=== PATIENT | female | born 1960 | race Caucasian/White ===

== ENCOUNTER 2017-05-27 00:28 | Emergency (ER) | payer OTHER ==
[2017-05-27 01:39] LABS: Absolute Monocytes 0.4 K/uL (0.1-1.3); Absolute Neutrophil 10.8 K/uL (1.8-8.0); Basophils % 0.3 % (0-1.3); Hematocrit 44.5 % (36.0-45.0); Lymphocytes % 8.3 % (15.3-44.8); MCH 30.6 pg (27.0-35.0); MCV 92.4 fL (80-100); MPV 8.2 fL (7.6-11.3); Monocytes % 2.9 % (3.3-12.3); RBC Red Blood Cell Count 4.81 M/uL (3.86-4.86)
[2017-05-27 01:47] LABS: Protime INR 0.95
[2017-05-27] MEDS ORDERED: predniSONE 20 MG TAB ONE (01:47)
[2017-05-27] MEDS ORDERED: IPRATROPIUM BROM 0.5MG/2.5ML ONE (01:47)
[2017-05-27] MEDS ORDERED: ALBUTEROL 2.5 MG/3 ML NEB SOL ONE (01:47)
[2017-05-27 02:03] LABS: Albumin 4.3 g/dL (3.2-5.5); Bilirubin Direct 0.1 mg/dL (0-0.2); Bilirubin Total 0.4 mg/dL (0.3-1.2); Magnesium 2.1 mg/dL (1.8-2.5)
[2017-05-27 02:09] LABS: Potassium 3.6 mEq/L (3.6-5.0)
[2017-05-27] MEDS ORDERED: DIAZEPAM 2 MG TABLET ONE (02:24)
[2017-05-27] MEDS ORDERED: NA CHLORIDE 0.9% 500 ML ONE (02:38)
--- NOTE | 2017-05-27 02:57 | ER ---
Nurse's Notes [facility] Name: Vicky Walker Age: 56 yrs Sex: Female : 1960 Arrival Date: 05/27/2017 Time: 00:29 Bed 17 Private MD: Diagnosis: Chronic obstructive pulmonary disease with (acute) exacerbation Presentation: 05/27 00:39 Presenting complaint: Patient states: states she is feeling weak, having shortness of wh breath and dyspnea since last night. Pt was seen in [facility] yesterday and states was diagnosed with COPD and given a steroid shot. Came to ER with same complaint of SOB, Dyspnea accompanied with headache. Transition of care: patient was not received from another setting of care. Onset of symptoms was May 26, 2017. Care prior to arrival: None. 00:39 Method Of Arrival: Ambulatory 00:39 Acuity: PIYUSH 3 Triage Assessment: 00:49 General: Appears in no apparent distress. Behavior is cooperative, appropriate for age, wh anxious. Pain: Denies pain. EENT: No signs and/or symptoms were reported regarding the EENT system. Neuro: Level of Consciousness is awake, alert, obeys commands, Oriented to person, place, time, situation, [employer] Learning Support Teacher are equal bilaterally Reports headache since today. Cardiovascular: Denies chest pain, Heart tones S1 S2 Capillary refill < 3 seconds Pulses are all present. Respiratory: Reports shortness of breath and dyspnea since yesterday Airway is patent Respiratory effort is even, unlabored, Respiratory pattern is regular, symmetrical, Breath sounds are clear bilaterally. Onset: The symptoms/episode began/occurred yesterday, the patient has mild shortness of breath. GI: Abdomen is round non-distended, Abd is soft and non tender X 4 quads. : No signs and/or symptoms were reported regarding the genitourinary system. Derm: Skin is intact, is healthy with good turgor, Skin is pink, warm \T\ dry. normal. Musculoskeletal: Range of motion: intact in all extremities. Historical: - Allergies: :34 PENICILLINS; :34 Toradol; - Home Meds: :34 Flonase 50 mcg/actuation Nasal spsn 1 spray 2 times per day [Active]; loratadine 10 mg Oral tab 1 tab once daily [Active]; Shell 10-325 mg Oral tab three times a day [Active]; omeprazole 20 mg Oral cpDR 1 cap once daily [Active]; amlodipine 10 mg oral tab 1 tab once daily for Hypertension [Active]; Xanax 1 mg Oral tab 1 tab 3 times per day [Active]; - PMHx: 01:34 allergies; Anxiety; GERD; Hypertension; psoriasis; wh - Immunization history:: Adult Immunizations not up to date. - Social history:: Smoking status: Patient uses tobacco products, smokes one-half pack cigarettes per day. Screenin:42 Abuse screen: Denies threats or abuse. Denies injuries from another. Nutritional wh screening: No deficits noted. Tuberculosis screening: No symptoms or risk factors identified. Fall Risk None identified. Assessment: 00:42 Respiratory: Airway. wh 01:32 Cardiovascular: Rhythm is sinus tachycardia. wh 01:35 General: See Triage assessment. wh 01:35 Reassessment: Patient appears in no apparent distress at this time. Patient and/or wh family updated on plan of care and expected duration. Pain level reassessed. Patient is alert, oriented x 3, equal unlabored respirations, skin warm/dry/pink. Patient states feeling better. Patient states symptoms have improved. 02:36 Reassessment: Patient appears in no apparent distress at this time. Patient and/or wh family updated on plan of care and expected duration. Pain level reassessed. Patient is alert, oriented x 3, equal unlabored respirations, skin warm/dry/pink. Patient states feeling better. Patient states symptoms have improved. 02:56 Reassessment: Pt IV NS bolus on R Forearm infiltrated with noticeable swelling, IV wh stooped and discontinued. Notified provider and Sadiq HANSON saw Pt. . Vital Signs: 00:43 BP 134 / 84; Pulse 112; Resp 19; Temp 96; Pulse Ox 98.0% ; wh 01:36 BP 142 / 75; Pulse 110; Resp 19; Pulse Ox 98% on R/A; 02:36 BP 127 / 98; Pulse 108; Resp 18; Pulse Ox 94% on R/A; ED Course: 00:29 Patient arrived in ED. ds1 00:38 Shankar Chen NP is PHCP. pm1 00:38 Kameron Soriano MD is Attending Physician. pm1 00:39 Yasmine Miller is Primary Nurse. wh 00:42 Triage completed. wh 00:51 Arm band placed on right wrist. 00:52 Patient has correct armband on for positive identification. Bed in low position. Call light in reach. Side rails up X 1. front desk monitor on. Pulse ox on. NIBP on. 00:58 X-ray completed. Portable x-ray completed in exam room. Patient tolerated procedure kw well. 00:59 XRAY Chest (1 view) In Process Unspecified. EDMS 01:20 Inserted saline lock: 22 gauge in right forearm, using aseptic technique. Blood collected. 02:56 No provider procedures requiring assistance completed. IV discontinued, intact, bleeding controlled. Administered Medications: 01:31 Drug: predniSONE 60 mg Route: PO; 02:24 Follow up: Response: No adverse reaction 01:32 Drug: Albuterol - atroVENT (3:1) (2.5 mg - 0.5 mg) 3 ml Route: Nebulizer; 02:24 Follow up: Response: No adverse reaction 02:07 Drug: Valium 2 mg Route: PO; 03:11 Follow up: Response: No adverse reaction 02:23 Drug: NS 0.9% 500 ml Route: IV; Rate: bolus; Site: right forearm; 03:11 Follow up: Response: No adverse reaction; IV Status: IV infiltrated Outcome: 02:56 Discharge ordered by . pm1 03:09 Discharged to home ambulatory, with family. 03:09 Condition: improved 03:09 Discharge instructions given to patient, family, Instructed on discharge instructions, follow up and referral plans. medication usage, POC COPD Demonstrated understanding of instructions, follow-up care, medications, POC Prescriptions given X 3. 03:11 Patient left the ED. Signatures: Dispatcher [employer] EDND Aida Murphy ds1 Winifred He Patrick, VALENTIN CUFF SETTER LOCKSTITCH pm1 Yasmine Miller Corrections: (The following items were deleted from the chart) 00:49 00:42 Immunization history: Adult Immunizations unknown, [facility]
--- NOTE | 2017-05-27 02:57 | EDPHYS ---
Physician Documentation [facility] Name: Vicky Walker Age: 56 yrs Sex: Female : 1960 Arrival Date: 05/27/2017 Time: 00:29 Bed 17 Private MD: ED Physician Kameron Soriano HPI: 05/27 02:49 This 56 yrs old Female presents to ER via Ambulatory with complaints of pm1 Breathing Difficulty, Headache. 02:49 The patient has shortness of breath at rest. Onset: The symptoms/episode began/occurred pm1 yesterday. Duration: The symptoms are continuous. The patient's shortness of breath is aggravated by Smoking and anxiety. Patient reports that she is out of xanax, is alleviated by nothing. Associated signs and symptoms: Pertinent positives: productive cough, Headache, Pertinent negatives: chest pain, diaphoresis, dizziness, fever, nausea, vomiting. The patient has experienced similar episodes in the past, multiple times. Patient seen at [facility] [place] [facility] for the same complaint. Patient given prescription for antibiotic and steroid that she did not fill. Historical: - Allergies: 01:34 PENICILLINS; wh 01:34 Toradol; wh - Home Meds: 01:34 Flonase 50 mcg/actuation Nasal spsn 1 spray 2 times per day [Active]; loratadine 10 mg wh Oral tab 1 tab once daily [Active]; [place] 10-325 mg Oral tab three times a day [Active]; omeprazole 20 mg Oral cpDR 1 cap once daily [Active]; amlodipine 10 mg oral tab 1 tab once daily for Hypertension [Active]; Xanax 1 mg Oral tab 1 tab 3 times per day [Active]; - PMHx: 01:34 allergies; Anxiety; GERD; Hypertension; psoriasis; wh - Immunization history:: Adult Immunizations not up to date. - Social history:: Smoking status: Patient uses tobacco products, smokes one-half pack cigarettes per day. ROS: 02:49 Constitutional: Negative for fever, chills, and weight loss, Eyes: Negative for injury, pm1 pain, redness, and discharge, ENT: Negative for injury, pain, and discharge, Neck: Negative for injury, pain, and swelling, Cardiovascular: Negative for chest pain, palpitations, and edema. 02:49 Abdomen/GI: Negative for abdominal pain, nausea, vomiting, diarrhea, and constipation, Back: Negative for injury and pain, : Negative for injury, bleeding, discharge, and swelling, MS/Extremity: Negative for injury and deformity, Skin: Negative for injury, rash, and discoloration. 02:49 Respiratory: Positive for cough, shortness of breath. 02:49 Neuro: Positive for headache, Negative for numbness, tingling, weakness. 02:49 Psych: Positive for anxiety. Exam: 02:49 Constitutional: This is a well developed, well nourished patient who is awake, alert, pm1 and in no acute distress. Head/Face: Normocephalic, atraumatic. Eyes: Pupils equal round and reactive to light, extra-ocular motions intact. Lids and lashes normal. Conjunctiva and sclera are non-icteric and not injected. Cornea within normal limits. Periorbital areas with no swelling, redness, or edema. ENT: Nares patent. No nasal discharge, no septal abnormalities noted. Tympanic membranes are normal and external auditory canals are clear. Oropharynx with no redness, swelling, or masses, exudates, or evidence of obstruction, uvula midline. Mucous membranes moist. Neck: Trachea midline, no thyromegaly or masses palpated, and no cervical lymphadenopathy. Supple, full range of motion without nuchal rigidity, or vertebral point tenderness. No Meningismus. Chest/axilla: Normal chest wall appearance and motion. Nontender with no deformity. No lesions are appreciated. Cardiovascular: Regular rate and rhythm with a normal S1 and S2. No gallops, murmurs, or rubs. No pulse deficits. Respiratory: Lungs have equal breath sounds bilaterally, clear to auscultation and percussion. No rales, rhonchi or wheezes noted. No increased work of breathing, no retractions or nasal flaring. Abdomen/GI: Soft, non-tender, with normal bowel sounds. No distension or tympany. No guarding or rebound. No evidence of tenderness throughout. Back: No spinal tenderness. No costovertebral tenderness. Full range of motion. Skin: Warm, dry with normal turgor. Normal color with no rashes, no lesions, and no evidence of cellulitis. MS/ Extremity: Pulses equal, no cyanosis. Neurovascular intact. Full, normal range of motion. 02:49 Neuro: Orientation: is normal, Cranial nerves: CN II- XII are normal as tested, Cerebellar function: normal finger to nose testing, Motor: is normal, moves all fours, Sensation: is normal, no obvious gross deficits. Vital Signs: 00:43 BP 134 / 84; Pulse 112; Resp 19; Temp 96; Pulse Ox 98.0% ; 01:36 BP 142 / 75; Pulse 110; Resp 19; Pulse Ox 98% on R/A; wh 02:36 BP 127 / 98; Pulse 108; Resp 18; Pulse Ox 94% on R/A; wh MDM: 00:40 Patient medically screened. pm1 02:49 Data reviewed: vital signs. Data interpreted: Pulse oximetry: on room air is 98 %. pm1 Interpretation: normal. Counseling: I had a detailed discussion with the patient and/or guardian regarding: the historical points, exam findings, and any diagnostic results supporting the discharge/admit diagnosis, lab results, radiology results, the need for outpatient follow up, to return to the emergency department if symptoms worsen or persist or if there are any questions or concerns that arise at home. 05/27 00:48 Order name: Basic Metabolic Panel; Complete Time: 02:13 pm05/27 00:48 Order name: BNP; Complete Time: 02:13 pm05/27 00:48 Order name: CBC with Diff pm1 05/27 00:48 Order name: LFT's; Complete Time: 02:13 pm05/27 00:48 Order name: Magnesium; Complete Time: 02:13 pm05/27 00:48 Order name: PT-INR; Complete Time: 01:54 pm05/27 00:48 Order name: Ptt, Activated; Complete Time: 01:54 pm05/27 00:48 Order name: Troponin (emerg Dept Use Only); Complete Time: 02:13 pm05/27 00:48 Order name: XRAY Chest (1 view) pm1 05/27 01:09 Order name: Urine Dipstick--Ancillary (enter results) [facility] 05/27 01:09 Order name: Urine --Ancillary (enter results) [facility] 05/27 01:57 Order name: Manual Differential EDMS 05/27 00:48 Order name: Urine Test (obtain specimen); Complete Time: 01:24 pm05/27 00:48 Order name: EKG; Complete Time: 00:48 pm1 05/27 00:48 Order name: Cardiac monitoring; Complete Time: 01:24 pm05/27 00:48 Order name: EKG - Nurse/Tech; Complete Time: 01:24 pm05/27 00:48 Order name: IV Saline Lock; Complete Time: 01:24 pm05/27 00:48 Order name: Labs collected and sent; Complete Time: :24 pm05/27 00:48 Order name: O2 Per Protocol; Complete Time: : pm05/27 00:48 Order name: O2 Sat Monitoring; Complete Time: :24 pm05/27 00:48 Order name: Urine Dipstick-Ancillary (obtain specimen); Complete Time: : pm Administered Medications: 01:31 Drug: predniSONE 60 mg Route: PO; 02:24 Follow up: Response: No adverse reaction 01:32 Drug: Albuterol - atroVENT (3:1) (2.5 mg - 0.5 mg) 3 ml Route: Nebulizer; 02:24 Follow up: Response: No adverse reaction 02:07 Drug: Valium 2 mg Route: PO; 03:11 Follow up: Response: No adverse reaction 02:23 Drug: NS 0.9% 500 ml Route: IV; Rate: bolus; Site: right forearm; 03:11 Follow up: Response: No adverse reaction; IV Status: IV infiltrated Disposition: 03:25 Co-signature as Attending Physician, Kameron Soriano MD. pkl Disposition: 05/27/17 02:56 Discharged to Home. Impression: Chronic obstructive pulmonary disease with (acute) exacerbation. - Condition is Stable. - Discharge Instructions: Chronic Obstructive Pulmonary Disease, How to Use an Inhaler. - Prescriptions for Prednisone 20 mg Oral Tablet - take 3 tablet by ORAL route once daily for 5 days; 15 tablet. Zithromax Z- Aris 250 mg Oral Tablet - take 1 tablet by ORAL route as directed for 5 days Day 1 - take two (2) tablets one time. Day 2, 3, 4 , 5 take one (1) tablet once daily.; 6 tablet. Albuterol Sulfate 90 mcg/actuation - inhale 1-2 puff by INHALATION route every 4-6 hours; 1 Inhaler. - Medication Reconciliation Form, Thank You Letter, Antibiotic Education form. - Follow up: Emergency Department; When: As needed; Reason: Worsening of condition. Follow up: Private Physician; When: 2 - 3 days; Reason: Recheck today's complaints, Continuance of care, Re-evaluation by your physician. - Problem is new. - Symptoms have improved. Signatures: Dispatcher [employer] EDMS Kameron Soriano, MD SANCHEZ pkl Shankar Chen, OUTSIDE INSTALLATION MACHINIST OUTSIDE INSTALLATION MACHINIST pm1 Yasmine Miller Corrections: (The following items were deleted from the chart) 00:49 00:42 Immunization history: Adult Immunizations unknown, [facility]
[2017-05-27 03:16] VITALS: TEMP 96
[2017-05-27 03:18] VITALS: BP 127/98; O2SAT 94
[2017-05-27 03:37] LABS: Urine Blood 1+ (NEG); Urine Glucose NEGATIVE (NEG); Urine Protein NEGATIVE (NEG); Urine Specific Gravity 1.025 (1.005-1.030); Urine pH 6.5 (5.0-7.0)
[2017-05-27 03:42] LABS: Blood Morphology Comment NOT SEEN (NOT SEEN); Platelet Estimate ADEQ
--- NOTE | 2017-05-27 05:05 | EKG ---
Test Date: 2017-05-27 Test Time: 01:08:44 Robotics Software Engineer: KESHA MEASUREMENT RESULTS: Intervals: Rate: 108 SC: 146 QRSD: 82 QT: 356 QTc: 477 [place]: P: 72 SC: 146 QRS: 85 T: 49 INTERPRETIVE STATEMENTS: Sinus tachycardia Otherwise normal ECG Compared to ECG 12/30/2016 16:15:39 Sinus rhythm no longer present Electronically Signed On 05-27-17 05:05:03 CDT by Michael Sun
--- NOTE | 2017-05-27 07:51 | RAD REPORT ---
EXAM DESCRIPTION: Michele Single View05/27/2017 12:59 am CLINICAL HISTORY: Shortness of breath COMPARISON: December 2016 FINDINGS: The lungs appear clear of acute infiltrate. Calcified granulomas are present within the l ungs. The heart is normal size IMPRESSION: No acute abnormalities displayed
== END 2017-05-27 03:11 | disposition home or self-care (01) ==
LOC: ER 00:28
DX: J44.1 Chronic obstructive pulmonary disease with (acute) exacerbation; F41.9 Anxiety disorder, unspecified; Z88.5 Allergy status to narcotic agent; F17.210 Nicotine dependence, cigarettes, uncomplicated; Z88.0 Allergy status to penicillin; I10 Essential (primary) hypertension
CPT/HCPCS: 36415; 71045; 80048; 80076; 81003; 81025; 83735; 83880; 84484; 85025; 85610; 85730; 93005; 94640; 96360; 99285; J7512

== ENCOUNTER 2017-08-21 11:15 | Emergency (ER) | payer OTHER ==
[2017-08-21] MEDS ORDERED: MEPERIDINE HCL 50 MG/ML AMP ONE (11:40)
[2017-08-21] MEDS ORDERED: PROMETHAZINE 25 MG/ML VIAL ONE (11:40)
--- NOTE | 2017-08-21 12:40 | EDPHYS ---
Physician Documentation [facility] Name: Vicky Walker Age: 56 yrs Sex: Female : 1960 Arrival Date: 08/21/2017 Time: 11:17 Bed 17 Private MD: Out, [facility] ED Physician Dave Palafox HPI: 08/21 11:45 This 56 yrs old Female presents to ER via Ambulatory with complaints of Back jr8 Pain. 11:45 The patient presents with pain that is chronic. The symptoms are located in the low jr8 back. Onset: The symptoms/episode began/occurred gradually, 4 day(s) ago, and became worse and became persistent. radiation down legs. Associated signs and symptoms: The patient has no apparent associated signs or symptoms. The problem was sustained from a chronic condition. Modifying factors: The patient symptoms are alleviated by nothing, the patient symptoms are aggravated by any movement, bending. Severity of symptoms: At their worst the symptoms were moderate, in the emergency department the symptoms are unchanged. The patient has experienced similar episodes in the past, multiple times, but today's symptoms are worse, more painful. The patient has not recently seen a physician. Patient stated that she has chronic back pain that she takes norco for. Stated that for the past 4 days has had had increased pain to low back that is not being controlled with her prescribed medicine. Denies fall or anything that would of aggravated her back. Denies bowel or bladder dysfunction. Denies saddle anesthesia . Historical: - Allergies: 11:20 PENICILLINS; sg 11:20 Toradol; sg - PMHx: 11:20 allergies; Anxiety; GERD; Hypertension; psoriasis; sg - Immunization history:: Adult Immunizations up to date. - Social history:: Smoking status: Patient/guardian denies using tobacco. - Ebola Screening: : Patient negative for fever greater than or equal to 101.5 degrees Fahrenheit, and additional compatible Ebola Virus Disease symptoms Patient denies exposure to infectious person Patient denies travel to an Ebola-affected area in the 21 days before illness onset No symptoms or risks identified at this time. ROS: 11:45 Eyes: Negative for injury, pain, redness, and discharge, ENT: Negative for injury, jr8 pain, and discharge, Neck: Negative for injury, pain, and swelling, Cardiovascular: Negative for chest pain, palpitations, and edema, Respiratory: Negative for shortness of breath, cough, wheezing, and pleuritic chest pain, Abdomen/GI: Negative for abdominal pain, nausea, vomiting, diarrhea, and constipation, MS/Extremity: Negative for injury and deformity, Skin: Negative for injury, rash, and discoloration, Neuro: Negative for headache, weakness, numbness, tingling, and seizure. 11:45 Back: Positive for pain at rest, pain with movement, radiated pain. Exam: 11:45 Cardiovascular: Regular rate and rhythm with a normal S1 and S2. No gallops, murmurs, jr8 or rubs. Normal PMI, no JVD. No pulse deficits. Respiratory: Lungs have equal breath sounds bilaterally, clear to auscultation and percussion. No rales, rhonchi or wheezes noted. No increased work of breathing, no retractions or nasal flaring. Abdomen/GI: Soft, non-tender, with normal bowel sounds. No distension or tympany. No guarding or rebound. No evidence of tenderness throughout. Skin: Warm, dry with normal turgor. Normal color with no rashes, no lesions, and no evidence of cellulitis. MS/ Extremity: Pulses equal, no cyanosis. Neurovascular intact. Full, normal range of motion. Neuro: Awake and alert, GCS 15, oriented to person, place, time, and situation. Cranial nerves II-XII grossly intact. Motor strength 5/5 in all extremities. Sensory grossly intact. Cerebellar exam normal. Normal gait. 11:45 Back: pain, that is moderate, of the lumbar area, left low back and right low back, ROM is painful, normal spinal alignment noted, CVA tenderness, is absent, vertebral tenderness, is not appreciated, muscle spasm, is appreciated in the left low back, left mid back, right mid back and right low back, Straight leg raises: pain bilaterally. Vital Signs: 11:23 BP 136 / 87; Pulse 85; Resp 18; Temp 98.6; Pulse Ox 95% on R/A; Pain 10/10; sg MDM: 11:28 Patient medically screened. jr8 12:21 Data reviewed: vital signs, nurses notes, and as a result, I will discharge patient. jr8 Data interpreted: Pulse oximetry: on room air is 95 %. Interpretation: normal. Counseling: I had a detailed discussion with the patient and/or guardian regarding: the historical points, exam findings, and any diagnostic results supporting the discharge/admit diagnosis, the need for outpatient follow up, a family practitioner, to return to the emergency department if symptoms worsen or persist or if there are any questions or concerns that arise at home. Administered Medications: 11:48 Drug: Demerol 50 mg Route: IM; Site: right deltoid; jl7 13:00 Follow up: Response: No adverse reaction; Pain is decreased jl7 11:49 Drug: Phenergan 25 mg Route: IM; Site: left deltoid; jl7 13:00 Follow up: Response: No adverse reaction jl7 14:00 Not Given (pt unable to find a ride home): Soma 350 mg PO once jl7 Disposition: 18:35 Co-signature as Attending Physician, Dave Palafox MD. rn Disposition: 08/21/17 12:39 Discharged to Home. Impression: Low back pain. - Condition is Stable. - Discharge Instructions: Back Pain, Adult, Musculoskeletal Pain, Heat Therapy. - Prescriptions for Cyclobenzaprine 10 mg Oral Tablet - take 1 tablet by ORAL route every 8 hours As needed; 30 tablet. Medrol (Aris) 4 mg Oral Tablets, Dose Pack - take 1 tablet by ORAL route as directed - follow package instructions; 1 packet. - Medication Reconciliation Form, Thank You Letter, Antibiotic Education, Prescription Opioid Use form. - Follow up: Private Physician; When: 2 - 3 days; Reason: Recheck today's complaints, Continuance of care, Re-evaluation by your physician. - Problem is new. - Symptoms have improved. Signatures: Rafat Verma RN RN sg Nieto, Roman, MD MD rn Roszak, Josh, PA PA jr8 Malvin Mccann RN RN jl7 Corrections: (The following items were deleted from the chart) 14:03 12:39 08/21/2017 12:39 Discharged to Home. Impression: Low back pain. Condition is jl7 Stable. Forms are Medication Reconciliation Form, Thank You Letter, Antibiotic Education, Prescription Opioid Use. Follow up: Private Physician; When: 2 - 3 days; Reason: Recheck today's complaints, Continuance of care, Re-evaluation by your physician. Problem is new. Symptoms have improved. jr8
--- NOTE | 2017-08-21 12:40 | ER ---
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 Transition of care: patient was not received from another setting of care. Onset of symptoms was August 21, 2017. Risk Assessment: Do you want to hurt yourself or someone else? Patient reports no desire to harm self or others. Initial Sepsis Screen: Does the patient meet any 2 criteria? No. Patient's initial sepsis screen is negative. Does the patient have a suspected source of infection? No. Patient's initial sepsis screen is negative. Care prior to arrival: None. 11:20 Method Of Arrival: Ambulatory sg 11:20 Acuity: PIYUSH 4 sg Historical: - Allergies: 11:20 PENICILLINS; sg 11:20 Toradol; sg - PMHx: 11:20 allergies; Anxiety; GERD; Hypertension; psoriasis; sg - Immunization history:: Adult Immunizations up to date. - Social history:: Smoking status: Patient/guardian denies using tobacco. - Ebola Screening: : Patient negative for fever greater than or equal to 101.5 degrees Fahrenheit, and additional compatible Ebola Virus Disease symptoms Patient denies exposure to infectious person Patient denies travel to an Ebola-affected area in the 21 days before illness onset No symptoms or risks identified at this time. Screenin:36 Abuse screen: Denies threats or abuse. Denies injuries from another. Nutritional ss screening: No deficits noted. Tuberculosis screening: Never had TB. Assessment: 11:36 General: Appears uncomfortable, Behavior is cooperative, tearful. Pain: Complains of ss pain in lumbar area Pain currently is 10 out of 10 on a pain scale. Is continuous, chronic. Neuro: Level of Consciousness is awake, alert, obeys commands, Oriented to person, place, time, situation, Speech is normal, Facial symmetry appears normal, Pupils are PERRLA, Intact. Cardiovascular: Capillary refill < 3 seconds is brisk in bilateral fingers Patient's skin is warm and dry. Respiratory: Airway is patent Respiratory effort is even, unlabored, Respiratory pattern is regular, symmetrical. GI: Patient currently denies abdominal pain, diarrhea, nausea, vomiting. : No signs and/or symptoms were reported regarding the genitourinary system. Denies burning with urination, inability to void, incontinence, urinary frequency. EENT: Nares are clear Oral mucosa is moist. Throat is clear. Derm: Skin is intact, is healthy with good turgor, Skin is pink, warm \\T\\ dry. normal. Musculoskeletal: Circulation, motion, and sensation intact. Range of motion: intact in all extremities, Swelling absent. 12:57 Reassessment: Pt states that she is still trying to find a ride home, and may have to ss "wait" to drive herself. Holding Soma until patient is able to find a ride. Pt verbalizes understanding. ADAM García notified. Reassessment: Patient states feeling better. Patient states symptoms have improved. pain has decreased to 6/10. 14:00 Reassessment: Pt unable to find a ride home, pt A\\T\\Ox4, ambulates with steady gate, jl7 reports decreased pain rated 6/10. Vital Signs: 11:23 BP 136 / 87; Pulse 85; Resp 18; Temp 98.6; Pulse Ox 95% on R/A; Pain 10/10; sg ED Course: 11:17 Patient arrived in ED. sb2 11:18 Out, of [facility] is Private Physician. sb2 11:20 Arm band placed on. sg 11:23 Triage completed. sg 11:27 Donn Junior PA is [facility]. jr8 11:27 Dave Palafox MD is Attending Physician. jr8 11:36 Patient has correct armband on for positive identification. Bed in low position. Call ss light in reach. Side rails up X 1. 11:51 Malvni Mccann, TANISHA is Primary Nurse. jl7 14:01 No provider procedures requiring assistance completed. Patient did not have IV access jl7 during this emergency room visit. Administered Medications: 11:48 Drug: Demerol 50 mg Route: IM; Site: right deltoid; jl7 13:00 Follow up: Response: No adverse reaction; Pain is decreased jl7 11:49 Drug: Phenergan 25 mg Route: IM; Site: left deltoid; jl7 13:00 Follow up: Response: No adverse reaction jl7 14:00 Not Given (pt unable to find a ride home): Soma 350 mg PO once jl7 Outcome: 12:39 Discharge ordered by . edilma 14:01 Discharged to home ambulatory. jl7 14:01 Condition: stable 14:01 Discharge instructions given to patient, Instructed on discharge instructions, follow up and referral plans. medication usage, Demonstrated understanding of instructions, follow-up care, medications, Prescriptions given X 2. 14:03 Patient left the ED. jl7 Signatures: Rafat Verma RN RN Rashida Owen RN RN Donn Cox PA PA jrMalvin Morris RN RN jl7 Mandy Reina sb2
[2017-08-21] MEDS ORDERED: CARISOPRODOL 350 MG TAB PO ONE (12:54)
[2017-08-21 14:29] VITALS: BP 140/93; TEMP 98; O2SAT 97
== END 2017-08-21 14:03 | disposition home or self-care (01) ==
LOC: ER 11:15
DX: M54.5 Low back pain (principal); Z88.5 Allergy status to narcotic agent; Z91.010 Allergy to peanuts; F41.9 Anxiety disorder, unspecified; K21.9 Gastro-esophageal reflux disease without esophagitis; I10 Essential (primary) hypertension; L40.9 Psoriasis, unspecified; G89.29 Other chronic pain
CPT/HCPCS: 96372; 99283; J2175; J2550

== ENCOUNTER 2018-03-04 10:32 | Emergency (ER) | payer OTHER ==
[2018-03-04] MEDS ORDERED: IPRATROPIUM BROM 0.5MG/2.5ML ONE (11:25)
[2018-03-04] MEDS ORDERED: ALBUTEROL 2.5 MG/3 ML NEB SOL ONE (11:25)
[2018-03-04] MEDS ORDERED: predniSONE 20 MG TAB ONE (11:25)
--- NOTE | 2018-03-04 11:52 | RAD REPORT ---
EXAM DESCRIPTION: RAD - Chest Pa And Lat (2 Views) - 03/04/2018 11:44 am CLINICAL HISTORY: Cough;Dyspnea Chest pain. COMPARISON: Chest Single View dated 05/27/2017; Chest Single View dated 12/30/2016; Chest Single View dated 12/25/2015; CHEST SINGLE VIEW dated 12/10/2012 FINDINGS: Emphysematous changes are present with small benign granulomas in the right lung. The hear t is normal in size. No displaced fractures. IMPRESSION: Prominent COPD.
--- NOTE | 2018-03-04 12:27 | EDPHYS ---
Physician Documentation [facility] Name: Vicky Walker Age: 57 yrs Sex: Female : 1960 Arrival Date: 03/04/2018 Time: 10:35 Bed 16 Private MD: ED Physician Latrell Styles HPI: 03/04 12:25 This 57 yrs old Female presents to ER via Ambulatory with complaints of kb Shortness Of Breath. 12:25 The patient or guardian reports cough, that is intermittent, described as moderate, kb with productive sputum, difficulty breathing, flu symptoms, low-grade fever. Onset: The symptoms/episode began/occurred 2 day(s) ago. Severity of symptoms: At their worst the symptoms were moderate, in the emergency department the symptoms are unchanged. Modifying factors: The symptoms are alleviated by nothing, the symptoms are aggravated by nothing. Associated signs and symptoms: Pertinent positives: fever, rhinorrhea, Pertinent negatives: chest pain, diarrhea, ear ache, nausea, sore throat, vomiting. The patient has experienced similar episodes in the past, several times. The patient has not recently seen a physician. Historical: - Allergies: 10:57 PENICILLINS; aj 10:57 Toradol; aj - Home Meds: 10:57 amlodipine 10 mg tab 1 tab once daily for Hypertension [Active]; Flonase 50 aj mcg/actuation Nasal spsn 1 spray 2 times per day [Active]; loratadine 10 mg Oral tab 1 tab once daily [Active]; [place] 10-325 mg Oral tab three times a day [Active]; omeprazole 20 mg Oral cpDR 1 cap once daily [Active]; Xanax 1 mg Oral tab 1 tab 3 times per day [Active]; - PMHx: 10:57 allergies; Anxiety; GERD; Hypertension; psoriasis; Chronic pain; aj - PSHx: 10:57 Hysterectomy; Cholecystectomy; aj - Immunization history:: Adult Immunizations up to date. - Social history:: Smoking status: Patient uses tobacco products, smokes one-half pack cigarettes per day, smokes one pack cigarettes per day. - Ebola Screening: : Patient negative for fever greater than or equal to 101.5 degrees Fahrenheit, and additional compatible Ebola Virus Disease symptoms Patient denies exposure to infectious person Patient denies travel to an Ebola-affected area in the 21 days before illness onset No symptoms or risks identified at this time. ROS: 12:23 Cardiovascular: Negative for chest pain, palpitations, and edema, Abdomen/GI: Negative kb for abdominal pain, nausea, vomiting, diarrhea, and constipation, Back: Negative for injury and pain, MS/Extremity: Negative for injury and deformity, Skin: Negative for injury, rash, and discoloration, Neuro: Negative for headache, weakness, numbness, tingling, and seizure. 12:23 Constitutional: Positive for chills, Negative for body aches, fatigue, fever, malaise, poor PO intake, weight loss. 12:23 Respiratory: Positive for cough, shortness of breath, wheezing, Negative for dyspnea on exertion, hemoptysis, orthopnea, pleurisy. Exam: 12:24 Constitutional: This is a well developed, well nourished patient who is awake, alert, kb and in no acute distress. Head/Face: Normocephalic, atraumatic. ENT: Nares patent. No nasal discharge, no septal abnormalities noted. Tympanic membranes are normal and external auditory canals are clear. Oropharynx with no redness, swelling, or masses, exudates, or evidence of obstruction, uvula midline. Mucous membranes moist. Neck: Trachea midline, no thyromegaly or masses palpated, and no cervical lymphadenopathy. Supple, full range of motion without nuchal rigidity, or vertebral point tenderness. No Meningismus. Chest/axilla: Normal chest wall appearance and motion. Nontender with no deformity. No lesions are appreciated. Cardiovascular: Regular rate and rhythm with a normal S1 and S2. No gallops, murmurs, or rubs. Normal PMI, no JVD. No pulse deficits. Abdomen/GI: Soft, non-tender, with normal bowel sounds. No distension or tympany. No guarding or rebound. No evidence of tenderness throughout. Skin: Warm, dry with normal turgor. Normal color with no rashes, no lesions, and no evidence of cellulitis. MS/ Extremity: Pulses equal, no cyanosis. Neurovascular intact. Full, normal range of motion. Neuro: Awake and alert, GCS 15, oriented to person, place, time, and situation. Cranial nerves II-XII grossly intact. Motor strength 5/5 in all extremities. Sensory grossly intact. Cerebellar exam normal. Normal gait. 12:24 Respiratory: the patient does not display signs of respiratory distress, Respirations: normal, Breath sounds: wheezing: inspiratory expiratory that is moderate, is heard diffusely. Vital Signs: 10:57 BP 131 / 77; Pulse 88; Resp 22; Temp 98.9; Pulse Ox 96% on R/A; Weight 77.11 kg; Height aj 5 ft. 2 in. (157.48 cm); 12:00 BP 128 / 78; Pulse 86; Resp 18; Pulse Ox 99% on R/A; hb 10:57 Body Mass Index 31.09 (77.11 kg, 157.48 cm) aj MDM: 11:00 Patient medically screened. kb 12:21 Antibiotic administration: Antibiotic administration: The patient is discharged and kb will get outpatient antibiotics, Zithromax. Data reviewed: vital signs, nurses notes. Data interpreted: Pulse oximetry: on room air is 96 %. Interpretation: normal. Counseling: I had a detailed discussion with the patient and/or guardian regarding: the historical points, exam findings, and any diagnostic results supporting the discharge/admit diagnosis, lab results, radiology results, the need for outpatient follow up, a family practitioner, to return to the emergency department if symptoms worsen or persist or if there are any questions or concerns that arise at home. 12:25 ED course: wheezing decreased markedly after neb treatment. SOB resolved. kb 12:27 Counseling: I had a detailed discussion with the patient and/or guardian regarding: kb smoking cessation. 03/04 11:10 Order name: Flu; Complete Time: 11:58 kb 03/04 11:10 Order name: Chest Pa And Lat (2 Views) XRAY; Complete Time: 11:58 kb Administered Medications: 11:21 Drug: DuoNeb (3:1) (2.5 mg - 0.5 mg) 3 ml Route: Nebulizer; hb 11:55 Follow up: Response: No adverse reaction hb 11:21 Drug: predniSONE 40 mg Route: PO; hb 11:55 Follow up: Response: No adverse reaction hb 12:37 Drug: Zithromax 500 mg Route: PO; hb 12:38 Follow up: Response: Medication administered at discharge. hb Disposition: 15:06 Co-signature as Attending Physician, Latrell Styles MD I agree with the assessment and martha plan of care. PA/SALVAGER's history reviewed, patient interviewed, and examined. Disposition: 03/04/18 12:26 Discharged to Home. Impression: Chronic obstructive pulmonary disease, unspecified, Bronchitis, not specified as acute or chronic. - Condition is Stable. - Discharge Instructions: Chronic Obstructive Pulmonary Disease, Acute Bronchitis, [id number]. - Prescriptions for Prednisone 20 mg Oral Tablet - take 1 tablet by ORAL route once daily for 5 days; 5 tablet. Zithromax Z- Aris 250 mg Oral Tablet - take 1 tablet by ORAL route as directed for 5 days Day 1 - take two (2) tablets one time. Day 2, 3, 4 , 5 take one (1) tablet once daily.; 6 tablet. - Medication Reconciliation Form, Thank You Letter, Antibiotic Education, Prescription Opioid Use form. - Follow up: Emergency Department; When: As needed; Reason: Worsening of condition. Follow up: Private Physician; When: 2 - 3 days; Reason: Recheck today's complaints, Continuance of care, Re-evaluation by your physician. Signatures: Dispatcher [employer] EDCT Tigist Hurt, COST ESTIMATING ENGINEER-C COST ESTIMATING ENGINEER-India Morales RN RN Latrell Sandhu MD MD cha Baxter, Heather, RN RN Corrections: (The following items were deleted from the chart) 12:54 12:26 03/04/2018 12:26 Discharged to Home. Impression: Chronic obstructive pulmonary hb disease, unspecified; Bronchitis, not specified as acute or chronic. Condition is Stable. Forms are Medication Reconciliation Form, Thank You Letter, Antibiotic Education, Prescription Opioid Use. Follow up: Emergency Department; When: As needed; Reason: Worsening of condition. Follow up: Private Physician; When: 2 - 3 days; Reason: Recheck today's complaints, Continuance of care, Re-evaluation by your physician. kb
--- NOTE | 2018-03-04 12:27 | ER ---
Nurse's Notes [facility] Name: Vicky Walker Age: 57 yrs Sex: Female : 1960 Arrival Date: 03/04/2018 Time: 10:35 Bed 16 Private MD: Diagnosis: Chronic obstructive pulmonary disease, unspecified;Bronchitis, not specified as acute or chronic Presentation: 03/04 10:55 Presenting complaint: Patient states: Cough and SOB for 2 days. Transition of care: aj patient was not received from another setting of care. Onset of symptoms was March 02, 2018. Risk Assessment: Do you want to hurt yourself or someone else? Patient reports no desire to harm self or others. Initial Sepsis Screen: Does the patient meet any 2 criteria? No. Patient's initial sepsis screen is negative. Does the patient have a suspected source of infection? No. Patient's initial sepsis screen is negative. Care prior to arrival: None. 10:55 Method Of Arrival: Ambulatory 10:55 Acuity: PIYUSH 3 aj Triage Assessment: 10:57 General: Appears in no apparent distress. comfortable, Behavior is calm, cooperative, aj appropriate for age. Pain: Denies pain. Neuro: Level of Consciousness is awake, alert, obeys commands, Oriented to person, place, time, situation, Appropriate for age. Respiratory: Reports shortness of breath cough that is Airway is patent Respiratory effort is even, unlabored, Respiratory pattern is symmetrical, tachypnea Breath sounds with wheezes bilaterally. Onset: The symptoms/episode began/occurred gradually, the patient has mild shortness of breath. Derm: Skin is intact, is healthy with good turgor, Skin is pink, warm \T\ dry. normal. Historical: - Allergies: 10:57 PENICILLINS; aj 10:57 Toradol; aj - Home Meds: 10:57 amlodipine 10 mg tab 1 tab once daily for Hypertension [Active]; Flonase 50 aj mcg/actuation Nasal spsn 1 spray 2 times per day [Active]; loratadine 10 mg Oral tab 1 tab once daily [Active]; [place] 10-325 mg Oral tab three times a day [Active]; omeprazole 20 mg Oral cpDR 1 cap once daily [Active]; Xanax 1 mg Oral tab 1 tab 3 times per day [Active]; - PMHx: 10:57 allergies; Anxiety; GERD; Hypertension; psoriasis; Chronic pain; aj - PSHx: 10:57 Hysterectomy; Cholecystectomy; aj - Immunization history:: Adult Immunizations up to date. - Social history:: Smoking status: Patient uses tobacco products, smokes one-half pack cigarettes per day, smokes one pack cigarettes per day. - Ebola Screening: : Patient negative for fever greater than or equal to 101.5 degrees Fahrenheit, and additional compatible Ebola Virus Disease symptoms Patient denies exposure to infectious person Patient denies travel to an Ebola-affected area in the 21 days before illness onset No symptoms or risks identified at this time. Screenin:00 Abuse screen: Denies threats or abuse. Denies injuries from another. Nutritional hb screening: No deficits noted. Tuberculosis screening: No symptoms or risk factors identified. Fall Risk None identified. Assessment: 11:30 General: Appears in no apparent distress. Behavior is calm, cooperative. Pain: Denies hb pain. Neuro: Level of Consciousness is awake, alert, obeys commands, Oriented to person, place, time, situation. Cardiovascular: Capillary refill < 3 seconds Patient's skin is warm and dry. Rhythm is regular. Respiratory: Reports shortness of breath Airway is patent Trachea midline Respiratory effort is even, unlabored, Respiratory pattern is regular, symmetrical, Breath sounds are clear bilaterally. GI: No signs and/or symptoms were reported involving the gastrointestinal system. : No signs and/or symptoms were reported regarding the genitourinary system. EENT: No signs and/or symptoms were reported regarding the EENT system. Derm: Skin is intact, is healthy with good turgor, Skin is pink, warm \T\ dry. normal. Musculoskeletal: No signs and/or symptoms reported regarding the musculoskeletal system. 12:30 Reassessment: Patient appears in no apparent distress at this time. Patient and/or hb family updated on plan of care and expected duration. Pain level reassessed. Patient is alert, oriented x 3, equal unlabored respirations, skin warm/dry/pink. Vital Signs: 10:57 BP 131 / 77; Pulse 88; Resp 22; Temp 98.9; Pulse Ox 96% on R/A; Weight 77.11 kg; Height aj 5 ft. 2 in. (157.48 cm); 12:00 BP 128 / 78; Pulse 86; Resp 18; Pulse Ox 99% on R/A; hb 10:57 Body Mass Index 31.09 (77.11 kg, 157.48 cm) aj ED Course: 10:35 Patient arrived in ED. as 10:57 Triage completed. aj 10:57 Arm band placed on left wrist. Patient placed in an exam room. aj 10:59 Tigist Hurt FNP-C is [facility]. kb 10:59 Latrell Styles MD is Attending Physician. kb 11:13 Dianne Hunt, RN is Primary Nurse. hb 11:22 Flu and/or RSV swab sent to lab. dh3 11:43 Patient moved to radiology via wheelchair. jb2 11:43 X-ray completed. Patient tolerated procedure well. jb2 11:45 Chest Pa And Lat (2 Views) XRAY In Process Unspecified. EDMS 12:00 Patient has correct armband on for positive identification. Bed in low position. Call hb light in reach. Side rails up X 1. 12:14 Inserted saline lock: 20 gauge in left antecubital area, using aseptic technique. Blood hb collected. 12:45 No provider procedures requiring assistance completed. IV discontinued, intact, hb bleeding controlled, No redness/swelling at site. Pressure dressing applied. Administered Medications: 11:21 Drug: DuoNeb (3:1) (2.5 mg - 0.5 mg) 3 ml Route: Nebulizer; hb 11:55 Follow up: Response: No adverse reaction hb 11:21 Drug: predniSONE 40 mg Route: PO; hb 11:55 Follow up: Response: No adverse reaction hb 12:37 Drug: Zithromax 500 mg Route: PO; hb 12:38 Follow up: Response: Medication administered at discharge. hb Outcome: 12:26 Discharge ordered by . kb 12:45 Discharged to home ambulatory. hb 12:45 Condition: stable 12:45 Discharge instructions given to patient, Instructed on discharge instructions, follow up and referral plans. medication usage, Demonstrated understanding of instructions, follow-up care, medications, Prescriptions given X 2. 12:54 Patient left the ED. hb Signatures: Dispatcher [employer] EDNM Tigist Hurt FNP-C FNP-Ckb Myers, Amanda, RN RN aj Buechter, Jesse jb2 Aide Santiago as Dianne Hunt, TANISHA RN Anastacia Michael 3
[2018-03-04] MEDS ORDERED: AZITHROMYCIN 250 MG TAB ONE (12:38)
[2018-03-04 13:08] VITALS: BP 131/77; TEMP 98.9; O2SAT 96
== END 2018-03-04 12:54 | disposition home or self-care (01) ==
LOC: ER 10:32
DX: J44.9 Chronic obstructive pulmonary disease, unspecified (principal); J40 Bronchitis, not specified as acute or chronic; I10 Essential (primary) hypertension; F41.9 Anxiety disorder, unspecified; Z88.0 Allergy status to penicillin
CPT/HCPCS: 71046; 87804; 94640; 99284; J7512

== ENCOUNTER 2018-03-13 18:29 | Emergency (ER) | payer OTHER ==
[2018-03-13] MEDS ORDERED: ALBUTEROL 2.5 MG/3 ML NEB SOL ONE (20:00)
[2018-03-13] MEDS ORDERED: predniSONE 20 MG TAB ONE (20:01)
[2018-03-13] MEDS ORDERED: IPRATROPIUM BROM 0.5MG/2.5ML ONE (20:01)
[2018-03-13] MEDS ORDERED: HYDROCODONE/CHLORPHEN 5 ML/OSYR ONE (20:05)
--- NOTE | 2018-03-13 20:42 | RAD REPORT ---
EXAM DESCRIPTION: RAD - Chest Pa And Lat (2 Views) - 03/13/2018 8:30 pm CLINICAL HISTORY: SOB;Cough Chest pain. COMPARISON: Chest Pa And Lat (2 Views) dated 03/04/2018; Chest Single View dated 05/27/2017; Chest Sing le View dated 12/30/2016; Chest Single View dated 12/25/2015 FINDINGS: Mild diffuse COPD is present. Several calcified granulomas are present involving the right lung. The heart is normal in size. No displaced fractures. IMPRESSION: Mild diffuse COPD.
--- NOTE | 2018-03-13 20:49 | ER ---
Nurse's Notes [facility] Name: Vicky Walker Age: 57 yrs Sex: Female : 1960 Arrival Date: 03/13/2018 Time: 18:32 Bed 24 Private MD: Diagnosis: Chronic obstructive pulmonary disease with (acute) exacerbation Presentation: 03/13 19:11 Presenting complaint: Patient states: "I am having a hard time breathing. I was seen jd3 here last week for the same symptom. I was told I have the onset of COPD so I have cut back on smoking, but I am still smoking about 5-6 cigarettes a day. I also need to be leaving by 2114.". Transition of care: patient was not received from another setting of care. Onset of symptoms was March 13, 2018. Risk Assessment: Do you want to hurt yourself or someone else? Patient reports no desire to harm self or others. Initial Sepsis Screen: Does the patient meet any 2 criteria? No. Patient's initial sepsis screen is negative. Does the patient have a suspected source of infection? No. Patient's initial sepsis screen is negative. Care prior to arrival: None. 19:11 Method Of Arrival: Ambulatory jd3 19:11 Acuity: PIYUSH 3 jd3 Historical: - Allergies: 19:17 PENICILLINS; jd3 19:17 Toradol; jd3 - Home Meds: 19:17 Xanax 1 mg Oral tab 1 tab 3 times per day [Active]; amlodipine 10 mg tab 1 tab once jd3 daily for Hypertension [Active]; Flonase 50 mcg/actuation Nasal spsn 1 spray 2 times per day [Active]; loratadine 10 mg Oral tab 1 tab once daily [Active]; [place] 10-325 mg Oral tab three times a day [Active]; omeprazole 20 mg Oral cpDR 1 cap once daily [Active]; - PMHx: 19:17 GERD; Chronic pain; Anxiety; allergies; Hypertension; psoriasis; jd3 - PSHx: 19:17 Hysterectomy; Cholecystectomy; jd3 - Immunization history:: Adult Immunizations up to date, Flu vaccine is up to date. - Social history:: Smoking status: Patient uses tobacco products, denies chronic smoking, but will smoke occasionally. - Ebola Screening: : Patient negative for fever greater than or equal to 101.5 degrees Fahrenheit, and additional compatible Ebola Virus Disease symptoms. Screenin:19 Abuse screen: Denies threats or abuse. Nutritional screening: No deficits noted. jd3 Tuberculosis screening: No symptoms or risk factors identified. Fall Risk Ambulatory Aid- None/Bed Rest/Nurse Assist (0 pts). Gait- Normal/Bed Rest/Wheelchair (0 pts) Mental Status- Oriented to own ability (0 pts). Total Hodges Fall Scale indicates No Risk (0-24 pts). Assessment: 19:19 General: Appears uncomfortable, Behavior is cooperative, appropriate for age, anxious. jd3 Pain: Complains of pain in chest Quality of pain is described as aching. Neuro: Level of Consciousness is awake, alert, obeys commands, Oriented to person, place, time, situation, Appropriate for age. Cardiovascular: Heart tones S1 S2 present Capillary refill < 3 seconds Patient's skin is warm and dry. Respiratory: Airway is patent Respiratory effort is even, unlabored, Respiratory pattern is regular, symmetrical, Breath sounds with wheezes bilaterally. GI: No signs and/or symptoms were reported involving the gastrointestinal system. : No signs and/or symptoms were reported regarding the genitourinary system. EENT: No signs and/or symptoms were reported regarding the EENT system. Derm: Skin is intact, Skin is dry, Skin is normal, Skin temperature is warm. Musculoskeletal: Circulation, motion, and sensation intact. Range of motion: intact in all extremities. 20:21 Reassessment: Patient appears in no apparent distress at this time. Patient and/or jd3 family updated on plan of care and expected duration. Pain level reassessed. Patient is alert, oriented x 3, equal unlabored respirations, skin warm/dry/pink. Patient states feeling better. Vital Signs: 19:17 BP 138 / 81; Pulse 86; Resp 20 S; Temp 98.5(O); Pulse Ox 96% on R/A; Weight 79.38 kg j (R); Height 5 ft. 2 in. (157.48 cm) (R); Pain 8/10; 20:21 Pulse 85; Resp 19 S; Pulse Ox 95% on R/A; jd3 19:17 Body Mass Index 32.01 (79.38 kg, 157.48 cm) [facility] ED Course: 18:32 Patient arrived in ED. as 19:11 Ryan Mckeon RN is Primary Nurse. jd3 19:11 Shankar Chen NP is PHCP. pm1 19:11 Latrell Styles MD is Attending Physician. pm1 19:14 Triage completed. jd3 19:18 Patient has correct armband on for positive identification. Bed in low position. Call jd3 light in reach. Side rails up X 1. Adult w/ patient. 19:19 Arm band placed on. jd3 20:31 Chest Pa And Lat (2 Views) XRAY In Process Unspecified. EDMS 21:08 No provider procedures requiring assistance completed. Patient did not have IV access jd3 during this emergency room visit. Administered Medications: 20:00 Drug: Albuterol - atroVENT (3:1) (2.5 mg - 0.5 mg) 3 ml Route: Nebulizer; jd3 20:55 Follow up: Response: No adverse reaction jd3 20:00 Drug: predniSONE 60 mg Route: PO; jd3 20:55 Follow up: Response: No adverse reaction jd3 20:00 Drug: Tussionex Pennkinetic ER 5 ml Route: PO; jd3 20:55 Follow up: Response: No adverse reaction jd3 Outcome: 20:49 Discharge ordered by MD. pm1 20:55 Patient left the ED. jd3 20:55 Discharged to home ambulatory, with family. 20:55 Condition: stable 20:55 Discharge instructions given to patient, family, Instructed on discharge instructions, follow up and referral plans. medication usage, Demonstrated understanding of instructions, follow-up care, medications, Prescriptions given X 3. Signatures: Dispatcher [employer] [facility] Aide Santiago as Shankar Chen NP OB GYN pm1 Ryan Mckeon RN RN jd3 Corrections: (The following items were deleted from the chart) 21:11 21:08 Condition: stable jd3 jd3 21:11 21:08 Discharged to home ambulatory, with family, jd3 jd3 21:11 21:08 Discharge instructions given to patient, family, Instructed on discharge jd3 instructions, follow up and referral plans. medication usage, Demonstrated understanding of instructions, follow-up care, medications, Prescriptions given X 3, jd3 21:11 21:10 Patient left the ED. jd3 jd3
--- NOTE | 2018-03-13 20:50 | EDPHYS ---
Physician Documentation [facility] Name: Vicky Walker Age: 57 yrs Sex: Female : 1960 Arrival Date: 03/13/2018 Time: 18:32 Bed 24 Private MD: ED Physician Latrell Styles HPI: 03/13 20:00 This 57 yrs old Female presents to ER via Ambulatory with complaints of pm1 Shortness of breath. 20:00 The patient has shortness of breath at rest. Onset: The symptoms/episode began/occurred pm1 3 day(s) ago. Duration: The symptoms are continuous, and are steadily getting worse. The patient's shortness of breath is aggravated by nothing, is alleviated by nothing. Associated signs and symptoms: Pertinent positives: chest pain, productive cough, Pertinent negatives: fever. Severity of symptoms: in the emergency department the symptoms are worse. The patient has experienced similar episodes in the past, a few times. The patient has been recently seen at the [facility] Emergency Department, last week, for similar complaints X-rays were performed, was given a prescription for antibiotics, steroids. Historical: - Allergies: 19:17 PENICILLINS; jd3 19:17 Toradol; jd3 - Home Meds: 19:17 Xanax 1 mg Oral tab 1 tab 3 times per day [Active]; amlodipine 10 mg tab 1 tab once jd3 daily for Hypertension [Active]; Flonase 50 mcg/actuation Nasal spsn 1 spray 2 times per day [Active]; loratadine 10 mg Oral tab 1 tab once daily [Active]; [place] 10-325 mg Oral tab three times a day [Active]; omeprazole 20 mg Oral cpDR 1 cap once daily [Active]; - PMHx: 19:17 GERD; Chronic pain; Anxiety; allergies; Hypertension; psoriasis; jd3 - PSHx: 19:17 Hysterectomy; Cholecystectomy; jd3 - Immunization history:: Adult Immunizations up to date, Flu vaccine is up to date. - Social history:: Smoking status: Patient uses tobacco products, denies chronic smoking, but will smoke occasionally. - Ebola Screening: : Patient negative for fever greater than or equal to 101.5 degrees Fahrenheit, and additional compatible Ebola Virus Disease symptoms. ROS: 20:00 Constitutional: Negative for fever, chills, and weight loss, Eyes: Negative for injury, pm1 pain, redness, and discharge, ENT: Negative for injury, pain, and discharge, Neck: Negative for injury, pain, and swelling, Cardiovascular: Negative for chest pain, palpitations, and edema. 20:00 Abdomen/GI: Negative for abdominal pain, nausea, vomiting, diarrhea, and constipation, Back: Negative for injury and pain, : Negative for injury, bleeding, discharge, and swelling, MS/Extremity: Negative for injury and deformity, Skin: Negative for injury, rash, and discoloration, Neuro: Negative for headache, weakness, numbness, tingling, and seizure. 20:00 Respiratory: Positive for cough, shortness of breath, Negative for wheezing. Exam: 20:00 Constitutional: This is a well developed, well nourished patient who is awake, alert, pm1 and in no acute distress. Head/Face: Normocephalic, atraumatic. Eyes: Pupils equal round and reactive to light, extra-ocular motions intact. Lids and lashes normal. Conjunctiva and sclera are non-icteric and not injected. Cornea within normal limits. Periorbital areas with no swelling, redness, or edema. ENT: Nares patent. No nasal discharge, no septal abnormalities noted. Tympanic membranes are normal and external auditory canals are clear. Oropharynx with no redness, swelling, or masses, exudates, or evidence of obstruction, uvula midline. Mucous membranes moist. Neck: Trachea midline, no thyromegaly or masses palpated, and no cervical lymphadenopathy. Supple, full range of motion without nuchal rigidity, or vertebral point tenderness. No Meningismus. Chest/axilla: Normal chest wall appearance and motion. Nontender with no deformity. No lesions are appreciated. Cardiovascular: Regular rate and rhythm with a normal S1 and S2. No gallops, murmurs, or rubs. Normal PMI, no JVD. No pulse deficits. 20:00 Abdomen/GI: Soft, non-tender, with normal bowel sounds. No distension or tympany. No guarding or rebound. No evidence of tenderness throughout. Back: No spinal tenderness. No costovertebral tenderness. Full range of motion. Skin: Warm, dry with normal turgor. Normal color with no rashes, no lesions, and no evidence of cellulitis. MS/ Extremity: Pulses equal, no cyanosis. Neurovascular intact. Full, normal range of motion. 20:00 Respiratory: the patient does not display signs of respiratory distress, Respirations: normal, Breath sounds: wheezing: is heard diffusely. 20:00 Neuro: Orientation: is normal, Motor: moves all fours. Vital Signs: 19:17 BP 138 / 81; Pulse 86; Resp 20 S; Temp 98.5(O); Pulse Ox 96% on R/A; Weight 79.38 kg jd3 (R); Height 5 ft. 2 in. (157.48 cm) (R); Pain 8/10; 20:21 Pulse 85; Resp 19 S; Pulse Ox 95% on R/A; jd3 19:17 Body Mass Index 32.01 (79.38 kg, 157.48 cm) jd3 MDM: 19:15 Patient medically screened. martha 20:00 Refusal of service: The patient/guardian displays adequate decision making capability pm1 and despite a detailed discussion of alternatives, benefits, risks, and consequences refuses: Patient does not want a cardiac workup. Does not want the labs or ECG. Patient wants to be home by 2114 for her husbands house arrest curfew. 20:48 Data reviewed: vital signs. Data interpreted: Pulse oximetry: on room air is 95 %. pm1 Interpretation: normal. Counseling: I had a detailed discussion with the patient and/or guardian regarding: the historical points, exam findings, and any diagnostic results supporting the discharge/admit diagnosis, lab results, radiology results, the need for outpatient follow up, a senior storage administrator, to return to the emergency department if symptoms worsen or persist or if there are any questions or concerns that arise at home. 03/13 19:44 Order name: Flu; Complete Time: 20:44 pm1 03/13 19:44 Order name: Chest Pa And Lat (2 Views) XRAY; Complete Time: 20:44 pm1 Administered Medications: 20:00 Drug: Albuterol - atroVENT (3:1) (2.5 mg - 0.5 mg) 3 ml Route: Nebulizer; jd3 20:55 Follow up: Response: No adverse reaction jd3 20:00 Drug: predniSONE 60 mg Route: PO; jd3 20:55 Follow up: Response: No adverse reaction jd3 20:00 Drug: Tussionex Pennkinetic ER 5 ml Route: PO; jd3 20:55 Follow up: Response: No adverse reaction jd3 Disposition: 03/13/18 20:49 Discharged to Home. Impression: Chronic obstructive pulmonary disease with (acute) exacerbation. - Condition is Stable. - Discharge Instructions: Chronic Obstructive Pulmonary Disease, How to Use an Inhaler, Chronic Obstructive Pulmonary Disease Exacerbation. - Prescriptions for Prednisone 20 mg Oral Tablet - take 3 tablet by ORAL route once daily for 5 days; 15 tablet. Zithromax Z- Aris 250 mg Oral Tablet - take 1 tablet by ORAL route as directed for 5 days Day 1 - take two (2) tablets one time. Day 2, 3, 4 , 5 take one (1) tablet once daily.; 6 tablet. Albuterol Sulfate 90 mcg/actuation - inhale 1-2 puff by INHALATION route every 4-6 hours; 1 Inhaler. - Medication Reconciliation Form, Thank You Letter, Antibiotic Education, Prescription Opioid Use form. - Follow up: Emergency Department; When: As needed; Reason: Worsening of condition. Follow up: Private Physician; When: 2 - 3 days; Reason: Recheck today's complaints, Continuance of care, Re-evaluation by your physician. - Problem is new. - Symptoms have improved. Addendum: 03/17/2018 06:56 Co-signature as Attending Physician, Latrell Styles MD I agree with the assessment and c blakely plan of care. Signatures: Dispatcher [employer] Latrell Sevilla MD MD cha Marinas, Patrick, MERCHANDISING PROFESSOR MERCHANDISING PROFESSOR pm1 Ryan Mckeon RN RN jd3 Corrections: (The following items were deleted from the chart) 03/13 21:10 20:49 03/13/2018 20:49 Discharged to Home. Impression: Chronic obstructive pulmonary jd3 disease with (acute) exacerbation. Condition is Stable. Forms are Medication Reconciliation Form, Thank You Letter, Antibiotic Education, Prescription Opioid Use. Follow up: Emergency Department; When: As needed; Reason: Worsening of condition. Follow up: Private Physician; When: 2 - 3 days; Reason: Recheck today's complaints, Continuance of care, Re-evaluation by your physician. Problem is new. Symptoms have improved. pm1
[2018-03-13 21:30] VITALS: BP 138/81; TEMP 98.5
[2018-03-13 21:31] VITALS: O2SAT 95
== END 2018-03-13 21:10 | disposition home or self-care (01) ==
LOC: ER 18:29
DX: J44.1 Chronic obstructive pulmonary disease with (acute) exacerbation (principal); K21.9 Gastro-esophageal reflux disease without esophagitis; I10 Essential (primary) hypertension; F41.9 Anxiety disorder, unspecified; G89.29 Other chronic pain; Z79.899 Other long term (current) drug therapy; Z72.0 Tobacco use
CPT/HCPCS: 71046; 87804; 94640; 99284; J7512

== ENCOUNTER 2018-06-13 14:47 | Observation (INO) | payer OTHER ==
[2018-06-13] MEDS ORDERED: IPRATROPIUM BROM 0.5MG/2.5ML ONE (15:32)
[2018-06-13] MEDS ORDERED: ALBUTEROL 2.5 MG/3 ML NEB SOL ONE (15:32)
[2018-06-13] MEDS ORDERED: METHYLPREDNISOLONE 125 MG INJ ONE (15:32)
[2018-06-13 15:40] LABS: Absolute Lymphocytes (CBC) 0.9 K/uL (0.7-4.9); Absolute Monocytes 0.9 K/uL (0.1-1.3); Absolute Neutrophil 6.6 K/uL (1.8-8.0); Basophils % 0.9 % (0-1.3); Eosinophils % 6.5 % (0-4.4); Hematocrit 43.5 % (36.0-45.0); Lymphocytes % 10.3 % (15.3-44.8); MPV 8.4 fL (7.6-11.3); Potassium 3.9 mmol/L (3.5-5.1); RBC Red Blood Cell Count 4.72 M/uL (3.86-4.86)
[2018-06-13 15:49] LABS: Albumin 3.8 g/dL (3.4-5.0); Bilirubin Direct 0.1 mg/dL (0-0.2); Bilirubin Total 0.4 mg/dL (0.2-1.0); Magnesium 2.2 mg/dL (1.8-2.4); Protein, Total 7.1 g/dL (6.4-8.2)
--- NOTE | 2018-06-13 16:41 | RAD REPORT ---
EXAM DESCRIPTION: Michele Single View06/13/2018 3:43 pm CLINICAL HISTORY: Shortness of breath COMPARISON: March 2017 FINDINGS: Calcified lung granulomas present. The lungs appear clear of acute infiltrate. The heart is normal size IMPRESSION: No acute abnormalities displayed
--- NOTE | 2018-06-13 16:54 | ER ---
Nurse's Notes [facility] Name: Vicky Walker Age: 57 yrs Sex: Female : 1960 Arrival Date: 06/13/2018 Time: 14:49 Bed 26 Private MD: Out, [facility] Diagnosis: Chronic obstructive pulmonary disease with (acute) exacerbation;Acute bronchitis Presentation: 06/13 14:57 Presenting complaint: Patient states: I have been feeling ill with cough since last la1 night but this morning it is much worse. Transition of care: patient was not received from another setting of care. Onset of symptoms was June 13, 2018. Risk Assessment: Do you want to hurt yourself or someone else? Patient reports no desire to harm self or others. Initial Sepsis Screen: Does the patient meet any 2 criteria? No. Patient's initial sepsis screen is negative. Does the patient have a suspected source of infection? No. Patient's initial sepsis screen is negative. Care prior to arrival: None. 14:57 Method Of Arrival: Wheelchair la1 14:57 Acuity: PIYUSH 3 la1 Triage Assessment: 15:35 General: Appears in no apparent distress. uncomfortable, Behavior is calm, cooperative. rv Respiratory: Onset: The symptoms/episode began/occurred gradually, the patient has moderate shortness of breath. Respiratory: Airway is patent Respiratory: Breath sounds with wheezes bilaterally. Respiratory: Reports shortness of breath at rest. Historical: - Allergies: 14:58 PENICILLINS; la1 14:58 Toradol; la1 - Home Meds: 15:36 amlodipine 10 mg tab 1 tab once daily for Hypertension [Active]; Flonase 50 rv mcg/actuation Nasal spsn 1 spray 2 times per day [Active]; loratadine 10 mg Oral tab 1 tab once daily [Active]; [place] 10-325 mg Oral tab three times a day [Active]; omeprazole 20 mg Oral cpDR 1 cap once daily [Active]; Xanax 1 mg Oral tab 1 tab 3 times per day [Active]; - PMHx: 14:58 allergies; Anxiety; Chronic pain; GERD; Hypertension; psoriasis; la1 - PSHx: 14:58 Hysterectomy; Cholecystectomy; la1 - Immunization history:: Adult Immunizations up to date. - Social history:: Smoking status: Patient uses tobacco products, smokes one pack cigarettes per day. - Ebola Screening: : No symptoms or risks identified at this time. Screenin:34 Abuse screen: Denies threats or abuse. Denies injuries from another. Nutritional rv screening: No deficits noted. Tuberculosis screening: No symptoms or risk factors identified. Fall Risk None identified. Assessment: 15:33 General: Appears in no apparent distress. uncomfortable, Behavior is calm, cooperative. rv Pain: Complains of pain in head. Neuro: Level of Consciousness is awake, alert, obeys commands, Oriented to person, place, time, situation, Reports headache. Cardiovascular: Rhythm is regular. Respiratory: Airway is patent Respiratory effort is labored, Breath sounds with wheezes bilaterally. GI: No signs and/or symptoms were reported involving the gastrointestinal system. : No signs and/or symptoms were reported regarding the genitourinary system. EENT: No signs and/or symptoms were reported regarding the EENT system. Derm: Skin is intact. Musculoskeletal: No signs and/or symptoms reported regarding the musculoskeletal system. 16:06 Reassessment: Patient appears in no apparent distress at this time. Patient and/or rv family updated on plan of care and expected duration. Pain level reassessed. Patient is alert, oriented x 3, equal unlabored respirations, skin warm/dry/pink. Patient states symptoms have improved. 16:39 Reassessment: Patient appears in no apparent distress at this time. Patient is alert, ca1 oriented x 3, equal unlabored respirations, skin warm/dry/pink. ADAM García at bedside. Vital Signs: 14:58 BP 136 / 76; Pulse 87; Resp 16; Temp 99.2; Pulse Ox 91% on R/A; Weight 77.11 kg; Height la1 5 ft. 2 in. (157.48 cm); 15:30 BP 122 / 74; Pulse 99; Resp 18 S; Pulse Ox 99% on Nebulizer Mask; ca1 16:00 BP 121 / 59 LA Supine; Pulse 89; Resp 24 S; Pulse Ox 92% on R/A; rv 16:15 BP 106 / 77; Pulse 86; Resp 21; Pulse Ox 91% on R/A; ca1 16:39 Temp 99(O); ca1 16:43 BP 122 / 73; Pulse 97; Resp 25 S; Pulse Ox 94% on 2 lpm NC; ca1 18:27 BP 116 / 68 LA; Pulse 98; Resp 19 S; Pulse Ox 94% on 2 lpm NC; rv 14:58 Body Mass Index 31.09 (77.11 kg, 157.48 cm) la1 ED Course: 14:49 Patient arrived in ED. mr 14:50 Out, [facility] is Private Physician. mr 14:58 Triage completed. la1 14:58 Arm band placed on left wrist. la1 15:02 Cedric Turner, TANISHA is Primary Nurse. rv 15:02 Donn Junior PA is PHCP. jr8 15:02 Sammy Solorzano MD is Attending Physician. jr8 15:20 Inserted saline lock: 20 gauge in right forearm, using aseptic technique. Blood rv collected. 15:20 First set of blood cultures drawn by me. rv 15:35 Patient has correct armband on for positive identification. Bed in low position. Call rv light in reach. Side rails up X 1. classroom monitor on. Pulse ox on. NIBP on. 15:38 Warm blanket given. Pillow given. jp3 15:38 EKG done, by ED staff, reviewed by Donn MEDINA. jp3 15:41 XRAY Chest (1 view) In Process Unspecified. EDMS 15:43 Liver (Hepatic) Function Sent. rv 15:43 Magnesium Sent. rv 16:53 Philomena Kent MD is Hospitalizing Provider. jr8 18:28 No provider procedures requiring assistance completed. Patient admitted, IV remains in rv place. Administered Medications: 15:25 Drug: Albuterol - atroVENT (3:1) (2.5 mg - 0.5 mg) 3 ml Route: Nebulizer; ca1 16:29 Follow up: Response: Marked relief of symptoms rv 15:30 Drug: SOLU-Medrol 125 mg Route: IVP; Site: right antecubital; ca1 16:29 Follow up: Response: Marked relief of symptoms rv Outcome: 16:53 Decision to Hospitalize by Provider. jr8 18:28 Admitted to Med/surg accompanied by tech, via wheelchair, room 225, with chart, Report rv called to NUBIA 18:28 Condition: good 18:28 Discharge instructions given to family, Instructed on the need for admit, Demonstrated understanding of instructions. 18:29 Patient left the ED. rv Signatures: Dispatcher [employer] EDMS Tracy Ya mr JoymaximilianDonn PA PA jr8 Jamin Lilly RN RN la1 Cedric Turner RN RN rv Kirt Torres jp3 Cadence Cornelius RN RN ca1 Corrections: (The following items were deleted from the chart) 16:39 16:39 Temp 99F; ca1 ca1 16:46 16:43 BP 122 / 73; Pulse 97bpm; Resp 25bpm; Pulse Ox 94% 2 lpm Nasal Cannula; ca1 ca1
--- NOTE | 2018-06-13 16:54 | EDPHYS ---
Physician Documentation [facility] Name: Vicky Walker Age: 57 yrs Sex: Female : 1960 Arrival Date: 06/13/2018 Time: 14:49 Bed 26 Private MD: Out, [facility] ED Physician Sammy Solorzano HPI: 06/13 15:57 This 57 yrs old Female presents to ER via Wheelchair with complaints of jr8 Cough, Shortness Of Breath, Headache, Nausea. 15:57 The patient or guardian reports cough, that is intermittent, described as moderate, jr8 with productive sputum, that is yellow, difficulty breathing, flu symptoms, low-grade fever. Onset: The symptoms/episode began/occurred acutely, 2 day(s) ago. Severity of symptoms: At their worst the symptoms were moderate, in the emergency department the symptoms are unchanged. Modifying factors: The symptoms are alleviated by nothing, the symptoms are aggravated by nothing. Associated signs and symptoms: Pertinent positives: sore throat, headache. The patient has not experienced similar symptoms in the past. The patient has not recently seen a physician. Historical: - Allergies: 14:58 PENICILLINS; la1 14:58 Toradol; la1 - Home Meds: 15:36 amlodipine 10 mg tab 1 tab once daily for Hypertension [Active]; Flonase 50 rv mcg/actuation Nasal spsn 1 spray 2 times per day [Active]; loratadine 10 mg Oral tab 1 tab once daily [Active]; [place] 10-325 mg Oral tab three times a day [Active]; omeprazole 20 mg Oral cpDR 1 cap once daily [Active]; Xanax 1 mg Oral tab 1 tab 3 times per day [Active]; - PMHx: 14:58 allergies; Anxiety; Chronic pain; GERD; Hypertension; psoriasis; la1 - PSHx: 14:58 Hysterectomy; Cholecystectomy; la1 - Immunization history:: Adult Immunizations up to date. - Social history:: Smoking status: Patient uses tobacco products, smokes one pack cigarettes per day. - Ebola Screening: : No symptoms or risks identified at this time. ROS: 15:57 Eyes: Negative for injury, pain, redness, and discharge, Neck: Negative for injury, jr8 pain, and swelling, Cardiovascular: Negative for chest pain, palpitations, and edema, Back: Negative for injury and pain, MS/Extremity: Negative for injury and deformity, Skin: Negative for injury, rash, and discoloration. 15:57 ENT: Positive for sore throat. 15:57 Respiratory: Positive for cough, dyspnea on exertion, shortness of breath, wheezing. 15:57 Abdomen/GI: Positive for nausea, vomiting, and diarrhea, Negative for abdominal pain. 15:57 Neuro: Positive for headache, Negative for altered mental status, dizziness, gait disturbance, hearing loss, loss of consciousness, numbness, seizure activity, speech changes, syncope, near syncope, tingling, tinnitus, tremor, visual changes, weakness. Exam: 15:57 Eyes: Pupils equal round and reactive to light, extra-ocular motions intact. Lids and jr8 lashes normal. Conjunctiva and sclera are non-icteric and not injected. Cornea within normal limits. Periorbital areas with no swelling, redness, or edema. ENT: Nares patent. No nasal discharge, no septal abnormalities noted. Tympanic membranes are normal and external auditory canals are clear. Oropharynx with no redness, swelling, or masses, exudates, or evidence of obstruction, uvula midline. Mucous membranes moist. Neck: Trachea midline, no thyromegaly or masses palpated, and no cervical lymphadenopathy. Supple, full range of motion without nuchal rigidity, or vertebral point tenderness. No Meningismus. Cardiovascular: Regular rate and rhythm with a normal S1 and S2. No gallops, murmurs, or rubs. Normal PMI, no JVD. No pulse deficits. Abdomen/GI: Soft, non-tender, with normal bowel sounds. No distension or tympany. No guarding or rebound. No evidence of tenderness throughout. Back: No spinal tenderness. No costovertebral tenderness. Full range of motion. Skin: Warm, dry with normal turgor. Normal color with no rashes, no lesions, and no evidence of cellulitis. MS/ Extremity: Pulses equal, no cyanosis. Neurovascular intact. Full, normal range of motion. Neuro: Awake and alert, GCS 15, oriented to person, place, time, and situation. Cranial nerves II-XII grossly intact. Motor strength 5/5 in all extremities. Sensory grossly intact. Cerebellar exam normal. Normal gait. 15:57 Respiratory: mild respiratory distress is noted, Respirations: labored breathing, tachypnea, Breath sounds: wheezing: expiratory that is moderate, is heard diffusely. 16:00 ECG was reviewed by the Attending Physician. jr8 Vital Signs: 14:58 BP 136 / 76; Pulse 87; Resp 16; Temp 99.2; Pulse Ox 91% on R/A; Weight 77.11 kg; Height la1 5 ft. 2 in. (157.48 cm); 15:30 BP 122 / 74; Pulse 99; Resp 18 S; Pulse Ox 99% on Nebulizer Mask; ca1 16:00 BP 121 / 59 LA Supine; Pulse 89; Resp 24 S; Pulse Ox 92% on R/A; rv 16:15 BP 106 / 77; Pulse 86; Resp 21; Pulse Ox 91% on R/A; ca1 16:39 Temp 99(O); ca1 16:43 BP 122 / 73; Pulse 97; Resp 25 S; Pulse Ox 94% on 2 lpm NC; ca1 18:27 BP 116 / 68 LA; Pulse 98; Resp 19 S; Pulse Ox 94% on 2 lpm NC; rv 14:58 Body Mass Index 31.09 (77.11 kg, 157.48 cm) la1 MDM: 15:03 Patient medically screened. jr8 16:48 Data reviewed: vital signs, nurses notes, lab test result(s), EKG, radiologic studies, jr8 plain films. 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 Interpretation: hypoxia. Counseling: I had a detailed discussion with the patient and/or guardian regarding: the historical points, exam findings, and any diagnostic results supporting the discharge/admit diagnosis, lab results, radiology results, the need for further work-up and treatment in the hospital. Physician consultation: Philomena Kent MD was called at 16:52, was contacted at 16:52, regarding admission, to the telemetry unit. consult, patient's condition, and will see patient. 06/13 14:53 Order name: Urine Culture [facility] 06/13 14:53 Order name: Urine Microscopic Only; Complete Time: 18:18 w 06/13 14:53 Order name: Flu; Complete Time: 16:01 w 06/13 15:09 Order name: CBC with Diff [facility] 06/13 15:09 Order name: Basic Metabolic Panel [facility] 06/13 15:10 Order name: CBC with Automated Diff; Complete Time: 16:01 EDMS 06/13 15:10 Order name: Basic Metabolic Panel; Complete Time: 16:01 EDMS 06/13 15:14 Order name: LFT's [facility] 06/13 15:14 Order name: Magnesium [facility] 06/13 15:14 Order name: NT PRO-BNP; Complete Time: 16:01 [facility] 06/13 15:14 Order name: Liver (Hepatic) Function; Complete Time: 16:01 EDMS 06/13 15:14 Order name: Magnesium; Complete Time: 16:01 EDMS 06/13 15:14 Order name: Blood Culture Adult (2) [facility] 06/13 18:10 Order name: Urine Dipstick--Ancillary (enter results) 06/13 15:14 Order name: XRAY Chest (1 view); Complete Time: 16:44 [facility] 06/13 15:14 Order name: EKG; Complete Time: 15:14 [facility] 06/13 15:14 Order name: Cardiac monitoring; Complete Time: 15:35 [facility] 06/13 15:14 Order name: EKG - Nurse/Tech; Complete Time: 15:35 [facility] 06/13 15:14 Order name: IV Saline Lock; Complete Time: 15:35 [facility] 06/13 15:14 Order name: Labs collected and sent; Complete Time: 15:35 [facility] 06/13 15:14 Order name: O2 Per Protocol; Complete Time: 15:17 [facility] 06/13 15:14 Order name: O2 Sat Monitoring; Complete Time: 15:17 [facility] 06/13 18:18 Order name: Urine Dipstick-Ancillary; Complete Time: 18:18 EDMS EC:00 Rate is 80 beats/min. Rhythm is regular, Normal Sinus Rhythm. QRS [place] is Normal. [place] jr8 interval is normal at 138 msec. QRS interval is normal at 86 msec. QT interval is normal at 429 msec. No Q waves. T waves are Normal. No ST changes noted. Clinical impression: Normal ECG. Interpreted by me. Reviewed by me. Administered Medications: 15:25 Drug: Albuterol - atroVENT (3:1) (2.5 mg - 0.5 mg) 3 ml Route: Nebulizer; ca1 16:29 Follow up: Response: Marked relief of symptoms rv 15:30 Drug: SOLU-Medrol 125 mg Route: IVP; Site: right antecubital; ca1 16:29 Follow up: Response: Marked relief of symptoms rv Disposition: 06/13/18 16:53 Hospitalization ordered by Philomena Kent for Observation. Preliminary diagnosis are Chronic obstructive pulmonary disease with (acute) exacerbation, Acute bronchitis. - Bed requested for Telemetry/MedSurg (observation). - Status is Observation. rv - Condition is Stable. - Problem is new. - Symptoms have improved. UTI on Admission? No Addendum: 06/15/2018 08:08 Co-signature as Attending Physician, Sammy Solorzano MD Available for consultation at p s1 all times. . Signatures: Dispatcher [employer] EDMS Leanne Toth, RN RN dw Jennifer Swenson, PRODUCT SAFETY AND STANDARDS ENGINEER-C PRODUCT SAFETY AND STANDARDS ENGINEER-Csnw Donn Junior PA PA jr8 Jamin Lilly RN RN la1 Sammy Solorzano MD MD [facility] Cedric Turner RN RN rv Acob, Cadence RN RN ca1 Corrections: (The following items were deleted from the chart) 06/13 17:40 16:53 Hospitalization Ordered by Philomena Kent MD for Observation. Preliminary dw diagnosis is Chronic obstructive pulmonary disease with (acute) exacerbation; Acute bronchitis. Bed requested for Telemetry/MedSurg (observation). Status is Observation. Condition is Stable. Problem is new. Symptoms have improved. UTI on Admission? No. jr8 18:29 17:40 06/13/2018 16:53 Hospitalization Ordered by Philomena Kent MD for Observation. rv Preliminary diagnosis is Chronic obstructive pulmonary disease with (acute) exacerbation; Acute bronchitis. Bed requested for Telemetry/MedSurg (observation). Status is Observation. Condition is Stable. Problem is new. Symptoms have improved. UTI on Admission? No. dw
[2018-06-13] MEDS: METHYLPREDNISOLONE 40 MG INJ IV SCH (17:12)
--- NOTE | 2018-06-13 17:53 | P.HP ---
Certification for Inpatient Patient admitted to: Observation With expected LOS: <2 Midnights Patient will require the following post-hospital care: None Practitioner: I am a practitioner with admitting privileges, knowledge of patient current condition, hospital course, and medical plan of care. Services: Services provided to patient in accordance with Admission requirements found in Title 42 Section 412.3 of the Code of Federal Regulations Patient History Date of Service: 06/13/18 History of Present Illness: 57-year-old female with significant past medical history of COPD, current tobacco smoker smokes about 1 pack of cigarette day who presented to the ED complaining of having some shortness of breath and wheezing that got progressively worse for past couple of days. Patient stated that she smokes too much of a cigarette and thinks that is what brought her illness. Patient has been coughing and having congestion for past couple of days as well. Patient denies having any nausea vomiting fever chills or any other associated symptoms at this time. Patient does use inhalers at the house however recently has not been using inhaler as prescribed along with nebulizers. Patient takes albuterol and Symbicort. And does have neb treatments of albuterol at home as well. In the ER patient was found to have tachypnea along with hypoxia and thus was admitted to the hospital for COPD exacerbation Allergies Penicillins Allergy (Mild, Verified 12/10/12 23:06) Hives ketorolac tromethamine [From Toradol] Allergy (Verified 12/11/12 14:42) Nausea/Vomiting Home Medications: ALPRAZolam [Xanax*] 1 mg PO TID PRN 12/10/12 Hydrocodone Bit/Acetaminophen [Hydrocodon-Acetaminophn 10650] 1 each PO TID PRN 12/10/12 Omeprazole [Prilosec] 20 mg PO DAILY 12/10/12 Lisinopril 10 mg PO DAILY 06/13/18 Meloxicam [Mobic*] 7.5 mg PO DAILY 06/13/18 - Past Medical/Surgical History Diabetic: No -: Anxiety -: Psoriasis - Social History Alcohol use: No CD- Drugs: No Caffeine use: Yes Review of Systems 10-point ROS is otherwise unremarkable Physical Examination - Physical Exam General: Alert, In no apparent distress HEENT: Atraumatic, PERRLA, Mucous membr. moist/pink, EOMI, Sclerae nonicteric Neck: Supple, 2+ carotid pulse no bruit, No LAD, Without JVD or thyroid abnormality Respiratory: Normal air movement, Expiratory wheezes, Inspiratory wheezes Cardiovascular: Regular rate/rhythm, Normal S1 S2 Gastrointestinal: Normal bowel sounds, No tenderness Musculoskeletal: No tenderness Integumentary: No rashes Neurological: Normal speech, Normal strength at 5/5 x4 extr, Normal tone Lymphatics: No axilla or inguinal lymphadenopathy - Studies Laboratory Data (last 24 hrs) 06/13/18 15:20: Magnesium 2.2, Total Bilirubin 0.4, AST 12 L, ALT 22, Alkaline Phosphatase 99 06/13/18 15:20: Sodium 140, Potassium 3.9, BUN 15, Creatinine 0.82, Glucose 106 06/13/18 15:20: WBC 9.1, Hgb 14.7, Hct 43.5, Plt Count 258 Microbiology Data (last 24 hrs): 06/13/18 15:11 Nasopharnyx Influenza Type A Antigen Screen - Final 06/13/18 15:11 Nasopharnyx Influenza Type B Antigen Screen - Final Assessment and Plan - Problems (Diagnosis) (1) COPD exacerbation Current Visit: Yes Status: Acute Plan: COPD exacerbation 2.2 to Viral illness -Duonebs, Steroids and Oxygen for now -Pulmonology consult if no improvement. - Plan Admit to the Med surg for COPD exacerbation. Discharge Plan: Home Plan to discharge in: Greater than 2 days - Advance Directives Does patient have a Living Will: No Does patient have a Durable POA for Healthcare: No - Code Status/Comfort Care Code Status Assessed: Yes Critical Care: No
[2018-06-13 18:17] LABS: Urine Bacteria NONE SEEN /HPF (<20); Urine Culture Reflex Order NOT NEEDED; Urine RBC NONE SEEN /HPF (NONE SEEN)
[2018-06-13 18:18] LABS: Urine Blood TRACE (NEG); Urine Glucose NEGATIVE (NEG); Urine Protein NEGATIVE (NEG)
[2018-06-13] MEDS ORDERED: ONDANSETRON 4 MG/2 ML VIAL IV PRN (18:29)
[2018-06-13 18:51] VITALS: BMI 31.1
[2018-06-13] MEDS: HYDROCODONE/APAP 10/325 TAB PO PRN (20:10)
[2018-06-13] MEDS: ALPRAZOLAM 1 MG TABLET PO PRN (20:11)
[2018-06-14] MEDS: IPRATROPIUM BROM 0.5MG/2.5ML NEB PRN ×3 (00:10→13:50)
[2018-06-14] MEDS: ALBUTEROL 2.5 MG/3 ML NEB SOL NEB PRN ×3 (00:10→13:50)
[2018-06-14] MEDS: METHYLPREDNISOLONE 40 MG INJ IV SCH ×4 (00:18→23:59)
[2018-06-14 05:27] LABS: Absolute Lymphocytes (CBC) 0.7 K/uL (0.7-4.9); Absolute Monocytes 0.3 K/uL (0.1-1.3); Absolute Neutrophil 6.4 K/uL (1.8-8.0); Basophils % 0.5 % (0-1.3); Eosinophils % 0.1 % (0-4.4); Hematocrit 44.2 % (36.0-45.0); Lymphocytes % 9.1 % (15.3-44.8); MPV 8.3 fL (7.6-11.3); Monocytes % 3.7 % (3.3-12.3); RBC Red Blood Cell Count 4.71 M/uL (3.86-4.86)
[2018-06-14] MEDS: HYDROCODONE/APAP 10/325 TAB PO PRN ×3 (05:52→20:09)
[2018-06-14] MEDS: ALPRAZOLAM 1 MG TABLET PO PRN ×3 (05:52→22:19)
[2018-06-14 06:59] LABS: Blood Morphology Comment NOT SEEN (NOT SEEN); Platelet Estimate ADEQ
[2018-06-14] MEDS: LISINOPRIL 10 MG TAB PO SCH (09:06)
[2018-06-14] MEDS: ASPIRIN EC 81 MG TAB PO SCH (09:06)
--- NOTE | 2018-06-14 11:54 | P.PN ---
Subjective Date of Service: 06/14/18 Subjective: Tolerating diet, Improving, Working w/ PT, Doing well, Other ( Patient continues to have back pain and headaches this morning) Review of Systems 10-point ROS is otherwise unremarkable Physical Examination - Vital Signs Temperature: 97.1 F Blood Pressure: 141/87 Pulse: 91 Respirations: 17 Pulse Ox (%): 93 - Physical Exam General: Alert, In no apparent distress, Mild distress HEENT: Atraumatic, PERRLA, EOMI Neck: Supple, JVD not distended Respiratory: Normal air movement, Expiratory wheezes, Inspiratory wheezes Cardiovascular: Regular rate/rhythm, Normal S1 S2 Gastrointestinal: Normal bowel sounds, No tenderness Musculoskeletal: No tenderness Integumentary: No rashes Neurological: Normal speech, Normal tone, Normal affect Lymphatics: No axilla or inguinal lymphadenopathy - Studies Laboratory Data (last 24 hrs) 06/13/18 15:20: Magnesium 2.2, Total Bilirubin 0.4, AST 12 L, ALT 22, Alkaline Phosphatase 99 06/13/18 15:20: Sodium 140, Potassium 3.9, BUN 15, Creatinine 0.82, Glucose 106 06/13/18 15:20: WBC 9.1, Hgb 14.7, Hct 43.5, Plt Count 258 Microbiology Data (last 24 hrs): 06/13/18 15:11 Nasopharnyx Influenza Type A Antigen Screen - Final 06/13/18 15:11 Nasopharnyx Influenza Type B Antigen Screen - Final Medications List Reviewed: Yes Assessment And Plan - Current Problems (Diagnosis) (1) COPD exacerbation Current Visit: Yes Status: Acute Plan: COPD exacerbation 2.2 to Viral illness -Duonebs, Steroids and Oxygen for now -will monitor for next 24 hr here in the hospital. - Plan Pending clinical improvement at this time. Will continue with neb treatments here in the hospital. Patient to follow up with pulmonology outpatient. Currently complaining of neck and back pain. Pain management on board. Will follow up in 24-48 hr for possible discharge home. Discharge Plan: Home Plan to discharge in: 48 Hours - Code Status/Comfort Care Code Status Assessed: Yes Critical Care: No
[2018-06-14] MEDS: LORATADINE 10 MG TAB PO SCH (12:35)
[2018-06-14] MEDS: PANTOPRAZOLE 40MG TABLET PO SCH (12:35)
[2018-06-14] MEDS: FLUTICASONE 50MCG NASAL SPRAY NAS SCH (12:35)
[2018-06-14] MEDS: BENZONATATE 100 MG CAP PO PRN (20:09)
[2018-06-14] MEDS: NICOTINE 21 MG/PAT TD SCH (22:19)
[2018-06-15] MEDS: HYDROCODONE/APAP 10/325 TAB PO PRN ×2 (03:25→08:48)
--- NOTE | 2018-06-15 05:56 | EKG ---
Test Date: 2018-06-13 Test Time: 15:24:13 Psych Rn: RAE MEASUREMENT RESULTS: Intervals: Rate: 80 TN: 138 QRSD: 86 QT: 372 QTc: 429 [place]: P: 65 TN: 138 QRS: 76 T: 56 INTERPRETIVE STATEMENTS: Normal sinus rhythm Normal ECG Compared to ECG 05/27/2017 01:08:44 Sinus tachycardia no longer present Electronically Signed On 06-15-18 05:54:42 CDT by Michael Sun
[2018-06-15] MEDS: PANTOPRAZOLE 40MG TABLET PO SCH (06:25)
[2018-06-15] MEDS: ALPRAZOLAM 1 MG TABLET PO PRN (06:25)
[2018-06-15] MEDS: ASPIRIN EC 81 MG TAB PO SCH (08:47)
[2018-06-15] MEDS: LISINOPRIL 10 MG TAB PO SCH (08:47)
[2018-06-15] MEDS: LORATADINE 10 MG TAB PO SCH (08:48)
[2018-06-15] MEDS: METHYLPREDNISOLONE 40 MG INJ IV SCH (08:48)
[2018-06-15] MEDS: FLUTICASONE 50MCG NASAL SPRAY NAS SCH (08:49)
[2018-06-15] MEDS ORDERED: LISINOPRIL 10 MG TAB PO SCH (09:00)
[2018-06-15] MEDS ORDERED: HOME MED 1 EA UNK (Omeprazole [Prilosec] 20 MG) PO SCH (09:00)
[2018-06-15] MEDS: NICOTINE 21 MG/PAT TD SCH (09:00)
[2018-06-15] MEDS: BENZONATATE 100 MG CAP PO PRN (09:02)
[2018-06-15 11:37] VITALS: O2SAT 88
--- NOTE | 2018-06-15 14:12 | P.DS ---
Admission Date: 06/13/18 Discharge Date: 06/15/18 Primary Care Provider: Dr. Mora([place], [place]); Pulmonary-Dr. Marie Disposition: ROUTINE DISCHARGE Discharge Condition: GOOD Consultations: none Procedures: CXR: COMPARISON: March 2017 FINDINGS: Calcified lung granulomas present. The lungs appear clear of acute infiltrate. The heart is normal size IMPRESSION: No acute abnormalities displayed Medical problem list: Brief History of Present Illness: 57-year-old female presented to emergency room with shortness of breath. Patient found to have COPD exacerbation. Patient was admitted for treatment. Hospital Course: Patient presented with shortness of breath secondary to COPD exacerbation. Patient did well during the course of her stay. Patient was evaluated for home oxygen. Patient did not qualify for home oxygen. At discharge she is without any significant shortness of breath. Patient with chronic stable COPD. At discharge she will continue with prednisone 20 mg 1 pill twice daily for 5 days then 1 pill once daily for 5 days. Patient will also continue with Mucinex 600 mg 1 pill twice daily as needed for congestion and Tessalon Perles 100 mg 1 pill 3 times a day as needed for cough. Patient will continue with her COPD medication including Symbicort 2 puffs twice daily and albuterol 1 unit dose 3 times a day as needed for shortness of breath. Recommend to follow up with pulmonology as an outpatient to further monitor and address. Patient with hypertension. This remained stable during her stay. Patient will continue with lisinopril 10 mg 1 pill daily. Recommend to maintain blood pressures less 150/80. Further adjustment can be done by her PCP. Patient with chronic pain and neuropathy. Patient will follow up with her PCP to continue her care. Patient takes hydrocodone and gabapentin. Gabapentin to be increased to 200 mg 1 pill twice daily. Further adjustment can be done by her PCP. Patient with anxiety. Patient will continue with her medication Xanax. Recommend to wean off the Xanax over time. This can be done with the help of her PCP. Patient with chronic seasonal allergies. Patient will continue with Flonase 1 spray per nostril twice daily and Claritin 10 mg daily. Patient with GERD. This has remained stable. Patient will continue with Prilosec 20 mg daily. Patient with tobacco abuse. Tobacco cessation education will be provided. Patient will continue with nicotine patch daily. This can be further adjusted and monitored by her PCP Vital Signs/Physical Exam: Temp Pulse Resp BP Pulse Ox 97.6 F 75 20 166/90 H 94 06/15/18 08:00 06/15/18 08:47 06/15/18 08:00 06/15/18 08:47 06/15/18 08:00 General: Alert, In no apparent distress, Oriented x3, Cooperative HEENT: Atraumatic Neck: Supple, No Thyromegaly Respiratory: Clear to auscultation bilaterally, Normal air movement Cardiovascular: Normal pulses, Regular rate/rhythm Gastrointestinal: Normal bowel sounds, Soft and benign, Non-distended Neurological: Normal speech, Normal strength at 5/5 x4 extr, Normal tone Laboratory Data at Discharge: WBC 7.4 K/uL (4.3-10.9) D 06/14/18 05:02 Hgb 14.4 g/dL (12.0-15.0) 06/14/18 05:02 Hct 44.2 % (36.0-45.0) 06/14/18 05:02 Plt Count 256 K/uL (152-406) 06/14/18 05:02 Sodium 138 mmol/L (136-145) 06/14/18 05:18 Potassium 4.0 mmol/L (3.5-5.1) 06/14/18 05:18 BUN 16 mg/dL (7-18) 06/14/18 05:18 Creatinine 0.78 mg/dL (0.55-1.3) 06/14/18 05:18 Glucose 162 mg/dL (74-106) H 06/14/18 05:18 Magnesium 2.2 mg/dL (1.8-2.4) 06/13/18 15:20 Total Bilirubin 0.4 mg/dL (0.2-1.0) 06/13/18 15:20 AST 12 U/L (15-37) L 06/13/18 15:20 ALT 22 U/L (12-78) 06/13/18 15:20 Alkaline Phosphatase 99 U/L (45-117) 06/13/18 15:20 Home Medications: ALPRAZolam [Xanax*] 1 mg PO TID PRN 12/10/12 Hydrocodone Bit/Acetaminophen [Hydrocodon-Acetaminophn 10-650] 1 each PO TID PRN 12/10/12 Omeprazole [Prilosec] 20 mg PO DAILY 12/10/12 Fluticasone [Flonase 50MCG Nasal [place]*] 2 sprays NS DAILY 06/13/18 Lisinopril 10 mg PO DAILY 06/13/18 Loratadine 10 mg PO DAILY 06/13/18 Meloxicam [Mobic*] 7.5 mg PO DAILY 06/13/18 Albuterol Neb [Proventil 0.083% Neb Soln] 2.5 inhaler IH TID PRN #90 amp Benzonatate [Tessalon Perle*] 100 mg PO TID PRN #30 cap 06/15/18 Budesonide/Formoterol Fumarate [Symbicort 160-4.5 Mcg Inhaler] 2 puff IH BID #1 hfa.aer.ad 06/15/18 Gabapentin [Neurontin] 200 mg PO BID #30 cap 06/15/18 Guaifenesin [Mucinex] 600 mg PO BID PRN #30 tab.er.12h 06/15/18 Nicotine [Nicoderm*] 21 mg TD DAILY #30 patch.td24 06/15/18 Prednisone [Deltasone] 20 mg PO SEECOM #15 tablet 06/15/18 New Medications: Albuterol Neb [Proventil 0.083% Neb Soln] 2.5 inhaler IH TID PRN #90 amp PRN Reason: Shortness Of Breath Benzonatate [Tessalon Perle*] 100 mg PO TID PRN #30 cap PRN Reason: Cough Budesonide/Formoterol Fumarate [Symbicort 160-4.5 Mcg Inhaler] 2 puff IH BID #1 hfa.aer.ad Gabapentin [Neurontin] 200 mg PO BID #30 cap Guaifenesin [Mucinex] 600 mg PO BID PRN #30 tab.er.12h PRN Reason: Cough Nicotine [Nicoderm*] 21 mg TD DAILY #30 patch.td24 Prednisone [Deltasone] 20 mg PO SEECOM #15 tablet Patient Discharge Instructions: 1. Patient will follow up with her PCP in 1-2 days to follow up this hospitalization. 2. Patient presented with COPD exacerbation. Discharge patient without significant shortness of breath. At discharge patient will be evaluated for home oxygen. If qualified patient will continue with home oxygen to maintain sats above 90%. Patient with chronic stable COPD. At discharge she will continue with prednisone 20 mg 1 pill twice daily for 5 days then 1 pill once daily for 5 days. Patient will also continue with Mucinex 600 mg 1 pill twice daily as needed for congestion and Tessalon Perles 100 mg 1 pill 3 times a day as needed for cough. Patient will continue with her COPD medication including Symbicort 2 puffs twice daily and albuterol 1 unit dose 3 times a day as needed for shortness of breath. Recommend to follow up with pulmonology as an outpatient to further monitor and address. 3. Patient with hypertension. Patient will continue with lisinopril 10 mg 1 pill daily. Recommend to maintain blood pressures less 150/80. Further adjustment can be done by her PCP. 4. Patient with chronic pain and neuropathy. Patient will follow up with her PCP to continue her care. Patient takes hydrocodone and gabapentin. Gabapentin to be increased to 200 mg 1 pill twice daily. Further adjustment can be done by her PCP. 5. Patient with anxiety. Patient will continue with her medication Xanax. Recommend to wean off the Xanax over time. This can be done with the help of her PCP. 6. Patient with chronic seasonal allergies. Patient will continue with Flonase 1 spray per nostril twice daily and Claritin 10 mg daily. 7. Patient with GERD. Patient will continue with Prilosec 20 mg daily. 8. Patient with tobacco abuse. Tobacco cessation education will be provided. Patient will continue with nicotine patch daily. This can be further adjusted and monitored by her PCP Diet: AHA Activity: Ad nathalia Followup: Marko Marie MD [ACTIVE - CAN ADMIT] - Time spent managing pt's care (in minutes): 55
[2018-06-15 14:32] VITALS: BP 169/88; TEMP 97.3
== END 2018-06-15 12:24 | disposition home or self-care (01) ==
LOC: ER 14:47 → ERHOLD 16:55 → 2ND 18:05
PROVIDERS: ADMIT Family Medicine; ATTEND Family Medicine
DX: J44.1 Chronic obstructive pulmonary disease with (acute) exacerbation (principal); I10 Essential (primary) hypertension; G62.9 Polyneuropathy, unspecified; G89.29 Other chronic pain; F41.9 Anxiety disorder, unspecified; J30.2 Other seasonal allergic rhinitis; K21.9 Gastro-esophageal reflux disease without esophagitis; Z72.0 Tobacco use; R05 Cough; M54.2 Cervicalgia; M54.5 Low back pain
CPT/HCPCS: 93005; 87040 ×2; 87088; 85025 ×2; 87086; 80048 ×2; 36415; 83735; 80076; 83880; 87804 ×2; 71045; 94640; 94760 ×3; 96374; 99285; J2930; J2920 ×5; G0378 ×2; 81003; 81015

== ENCOUNTER 2018-08-15 11:31 | Emergency (ER) | payer OTHER ==
--- NOTE | 2018-08-15 12:43 | EDPHYS ---
Physician Documentation [facility] Name: Vicky Walker Age: 57 yrs Sex: Female : 1960 Arrival Date: 08/15/2018 Time: 11:36 Bed 15 Private MD: Unknown, Unknown ED Physician Abdirashid Jolly HPI: 08/15 12:39 This 57 yrs old Female presents to ER via Ambulatory with complaints of Ear jr8 pain and throat pain. 12:39 The patient presents with sore throat. The patient describes throat pain as constant, jr8 raw. Onset: The symptoms/episode began/occurred acutely, yesterday. Severity of symptoms: At their worst the symptoms were moderate, in the emergency department the symptoms are unchanged. Modifying factors: The symptoms are alleviated by nothing, the symptoms are aggravated by swallowing. Associated signs and symptoms: Pertinent positives: earache. The patient has not experienced similar symptoms in the past. The patient has not recently seen a physician. Historical: - Allergies: 11:42 PENICILLINS; rb1 11:42 Toradol; rb1 - Home Meds: 11:42 amlodipine 10 mg tab 1 tab once daily for Hypertension [Active]; Flonase 50 rb1 mcg/actuation Nasal spsn 1 spray 2 times per day [Active]; loratadine 10 mg Oral tab 1 tab once daily [Active]; [place] 10-325 mg Oral tab three times a day [Active]; omeprazole 20 mg Oral cpDR 1 cap once daily [Active]; Xanax 1 mg Oral tab 1 tab 3 times per day [Active]; - PMHx: 11:42 allergies; Anxiety; Chronic pain; GERD; Hypertension; psoriasis; rb1 - PSHx: 11:42 Hysterectomy; Cholecystectomy; rb1 - Immunization history:: Adult Immunizations up to date. - Social history:: Smoking status: Patient uses tobacco products, smokes one-half pack cigarettes per day. - Ebola Screening: : Patient negative for fever greater than or equal to 101.5 degrees Fahrenheit, and additional compatible Ebola Virus Disease symptoms. ROS: 12:39 Eyes: Negative for injury, pain, redness, and discharge, Neck: Negative for injury, jr8 pain, and swelling, Cardiovascular: Negative for chest pain, palpitations, and edema, Respiratory: Negative for shortness of breath, cough, wheezing, and pleuritic chest pain, Abdomen/GI: Negative for abdominal pain, nausea, vomiting, diarrhea, and constipation, Back: Negative for injury and pain, MS/Extremity: Negative for injury and deformity, Skin: Negative for injury, rash, and discoloration, Neuro: Negative for headache, weakness, numbness, tingling, and seizure. 12:39 ENT: Positive for ear pain, rhinorrhea, sore throat. Exam: 12:39 Eyes: Pupils equal round and reactive to light, extra-ocular motions intact. Lids and jr8 lashes normal. Conjunctiva and sclera are non-icteric and not injected. Cornea within normal limits. Periorbital areas with no swelling, redness, or edema. ENT: Nares patent. No nasal discharge, no septal abnormalities noted. Mild fluid level noted to right TM. Left TM dull in appearance but without erythema. Canals patent and without swelling or discharge. Oropharynx with redness and exudates. No swelling, or masses, or evidence of obstruction, uvula midline. Mucous membranes moist. Neck: Trachea midline, no thyromegaly or masses palpated, and no cervical lymphadenopathy. Supple, full range of motion without nuchal rigidity, or vertebral point tenderness. No Meningismus. Cardiovascular: Regular rate and rhythm with a normal S1 and S2. No gallops, murmurs, or rubs. Normal PMI, no JVD. No pulse deficits. Respiratory: Lungs have equal breath sounds bilaterally, clear to auscultation and percussion. No rales, rhonchi or wheezes noted. No increased work of breathing, no retractions or nasal flaring. Abdomen/GI: Soft, non-tender, with normal bowel sounds. No distension or tympany. No guarding or rebound. No evidence of tenderness throughout. Back: No spinal tenderness. No costovertebral tenderness. Full range of motion. Skin: Warm, dry with normal turgor. Normal color with no rashes, no lesions, and no evidence of cellulitis. MS/ Extremity: Pulses equal, no cyanosis. Neurovascular intact. Full, normal range of motion. Neuro: Awake and alert, GCS 15, oriented to person, place, time, and situation. Cranial nerves II-XII grossly intact. Motor strength 5/5 in all extremities. Sensory grossly intact. Cerebellar exam normal. Normal gait. Vital Signs: 11:47 BP 129 / 89; Pulse 78; Resp 16; Temp 97.4(TE); Pulse Ox 97% on R/A; Weight 77.11 kg; 5 Height 5 ft. 2 in. (157.48 cm); Pain 9/10; 12:40 BP 130 / 90; Pulse 74; Resp 17; Temp 97.9(TE); Pulse Ox 99% on R/A; Pain 9/10; rb1 13:40 BP 128 / 87; Pulse 79; Resp 18; Temp 97.9(TE); Pulse Ox 99% on R/A; Pain 8/10; rb1 11:47 Body Mass Index 31.09 (77.11 kg, 157.48 cm) 5 MDM: 12:04 Patient medically screened. 8 12:39 Data reviewed: vital signs, nurses notes, and as a result, I will discharge patient. jr8 Data interpreted: Pulse oximetry: on room air is 97 %. Interpretation: normal. Counseling: I had a detailed discussion with the patient and/or guardian regarding: the historical points, exam findings, and any diagnostic results supporting the discharge/admit diagnosis, the need for outpatient follow up, a family practitioner, to return to the emergency department if symptoms worsen or persist or if there are any questions or concerns that arise at home. Administered Medications: 13:22 Drug: Zithromax 500 mg Route: PO; rb1 13:41 Follow up: Response: No adverse reaction rb1 13:22 Drug: Demerol 25 mg Route: IM; Site: left deltoid; rb1 13:41 Follow up: Response: No adverse reaction rb1 Disposition: 08/16 12:47 Co-signature as Attending Physician, Abdirashid Jolly MD. Disposition: 08/15/18 12:42 Discharged to Home. Impression: Acute Bacterial Pharyngitis , Acute serous otitis media, Otalgia. - Condition is Stable. - Discharge Instructions: Serous Otitis Media, Pharyngitis. - Prescriptions for Zithromax Z- Aris 250 mg Oral Tablet - take 1 tablet by ORAL route as directed for 5 days Day 1 - take two (2) tablets one time. Day 2, 3, 4 , 5 take one (1) tablet once daily.; 6 tablet. - Medication Reconciliation Form, Thank You Letter, Antibiotic Education, Prescription Opioid Use form. - Follow up: Private Physician; When: 5 - 6 days; Reason: Recheck today's complaints, Continuance of care, Re-evaluation by your physician. - Problem is new. - Symptoms have improved. Signatures: Cara Walker RN RN iw Donn Junior PA PA jr8 Afsaneh Oliveros RN RN [facility] Abdirashid Jolly MD MD Corrections: (The following items were deleted from the chart) 08/15 13:41 12:42 08/15/2018 12:42 Discharged to Home. Impression: Acute Bacterial Pharyngitis ; iw Acute serous otitis media; Otalgia. Condition is Stable. Forms are Medication Reconciliation Form, Thank You Letter, Antibiotic Education, Prescription Opioid Use. Follow up: Private Physician; When: 5 - 6 days; Reason: Recheck today's complaints, Continuance of care, Re-evaluation by your physician. Problem is new. Symptoms have improved. jr8
--- NOTE | 2018-08-15 12:43 | ER ---
Nurse's Notes [facility] Name: Vicky Walker Age: 57 yrs Sex: Female : 1960 Arrival Date: 08/15/2018 Time: 11:36 Bed 15 Private MD: Unknown, Unknown Diagnosis: Acute Bacterial Pharyngitis ;Acute serous otitis media;Otalgia Presentation: 08/15 11:42 Presenting complaint: Patient states: Left ear and left side of neck pain x 2 days. Was rb1 recently treated for Bronchitis. Transition of care: patient was not received from another setting of care. Onset of symptoms was August 13, 2018. Risk Assessment: Do you want to hurt yourself or someone else? Patient reports no desire to harm self or others. Initial Sepsis Screen: Does the patient meet any 2 criteria? No. Patient's initial sepsis screen is negative. Does the patient have a suspected source of infection? No. Patient's initial sepsis screen is negative. Care prior to arrival: None. 11:42 Method Of Arrival: Ambulatory rb1 11:42 Acuity: PIYUSH 3 rb1 Triage Assessment: 11:42 General: Appears uncomfortable, Behavior is calm, cooperative, Denies fever. Pain: rb1 Complains of pain in left ear Pain radiates to left side of neck Pain currently is 9 out of 10 on a pain scale. Pain began 2-3 days ago. Neuro: Level of Consciousness is awake, alert, obeys commands, Oriented to person, place, time, situation. Cardiovascular: Capillary refill < 3 seconds is brisk in bilateral fingers. Respiratory: Reports cough that is Airway is patent Respiratory effort is even, unlabored, Respiratory pattern is regular, symmetrical. GI: Reports nausea. : No signs and/or symptoms were reported regarding the genitourinary system. Derm: Skin is pink, warm \T\ dry. Historical: - Allergies: 11:42 PENICILLINS; rb1 11:42 Toradol; rb1 - Home Meds: 11:42 amlodipine 10 mg tab 1 tab once daily for Hypertension [Active]; Flonase 50 rb1 mcg/actuation Nasal spsn 1 spray 2 times per day [Active]; loratadine 10 mg Oral tab 1 tab once daily [Active]; [place] 10-325 mg Oral tab three times a day [Active]; omeprazole 20 mg Oral cpDR 1 cap once daily [Active]; Xanax 1 mg Oral tab 1 tab 3 times per day [Active]; - PMHx: 11:42 allergies; Anxiety; Chronic pain; GERD; Hypertension; psoriasis; rb1 - PSHx: 11:42 Hysterectomy; Cholecystectomy; rb1 - Immunization history:: Adult Immunizations up to date. - Social history:: Smoking status: Patient uses tobacco products, smokes one-half pack cigarettes per day. - Ebola Screening: : Patient negative for fever greater than or equal to 101.5 degrees Fahrenheit, and additional compatible Ebola Virus Disease symptoms. Screenin:42 Abuse screen: Denies threats or abuse. Nutritional screening: No deficits noted. rb1 Tuberculosis screening: No symptoms or risk factors identified. Fall Risk None identified. Assessment: 11:42 General: See triage assessment. rb1 12:40 Reassessment: Patient appears in no apparent distress at this time. No changes from rb1 previously documented assessment. 13:40 Reassessment: Patient appears in no apparent distress at this time. Patient and/or rb1 family updated on plan of care and expected duration. Pain level reassessed. Patient is alert, oriented x 3, equal unlabored respirations, skin warm/dry/pink. Vital Signs: 11:47 BP 129 / 89; Pulse 78; Resp 16; Temp 97.4(TE); Pulse Ox 97% on R/A; Weight 77.11 kg; mh5 Height 5 ft. 2 in. (157.48 cm); Pain 9/10; 12:40 BP 130 / 90; Pulse 74; Resp 17; Temp 97.9(TE); Pulse Ox 99% on R/A; Pain 9/10; rb1 13:40 BP 128 / 87; Pulse 79; Resp 18; Temp 97.9(TE); Pulse Ox 99% on R/A; Pain 8/10; rb1 11:47 Body Mass Index 31.09 (77.11 kg, 157.48 cm) [facility] ED Course: 11:36 Patient arrived in ED. ag5 11:37 Unknown, Unknown is Private Physician. ag5 11:42 Arm band placed on right wrist. rb1 11:42 Patient has correct armband on for positive identification. Bed in low position. Call rb1 light in reach. Side rails up X 1. Pulse ox on. NIBP on. Warm blanket given. 11:50 Oliveros Afsaneh, RN is Primary Nurse. rb1 11:58 Triage completed. rb1 12:02 Donn Junior PA is PHCP. jr8 12: Abdirashid Jolly MD is Attending Physician. jr8 13:41 No provider procedures requiring assistance completed. Patient did not have IV access rb1 during this emergency room visit. Administered Medications: 13:22 Drug: Zithromax 500 mg Route: PO; rb1 13:41 Follow up: Response: No adverse reaction rb1 13:22 Drug: Demerol 25 mg Route: IM; Site: left deltoid; rb1 13:41 Follow up: Response: No adverse reaction rb1 Outcome: 12:42 Discharge ordered by MD. jr8 13:41 Patient left the ED. iw 13:41 Discharged to home ambulatory, with family. rb1 13:41 Condition: stable 13:41 Discharge instructions given to patient, Instructed on discharge instructions, follow up and referral plans. medication usage, Demonstrated understanding of instructions, follow-up care, medications, Prescriptions given X 1. Signatures: Cara Walker RN RN Donn Junior PA PA jr8 Afsaneh Oliveros, RN RN [facility] Barbara Santiago 5 Jose, Xin ag5 Corrections: (The following items were deleted from the chart) 12:02 11:42 General: Appears rb1 rb1 13:26 13:22 Reassessment: rb1 rb1
[2018-08-15] MEDS ORDERED: AZITHROMYCIN 250 MG TAB ONE (13:34)
[2018-08-15] MEDS ORDERED: MEPERIDINE HCL 25 MG/0.5 ML ONE (13:35)
[2018-08-15 13:53] VITALS: BP 129/89; TEMP 97.4; O2SAT 97
== END 2018-08-15 13:41 | disposition home or self-care (01) ==
LOC: ER 11:31
DX: J02.8 Acute pharyngitis due to other specified organisms (principal); H65.00 Acute serous otitis media, unspecified ear; F41.9 Anxiety disorder, unspecified; K21.9 Gastro-esophageal reflux disease without esophagitis; I10 Essential (primary) hypertension; Z79.51 Long term (current) use of inhaled steroids; Z88.6 Allergy status to analgesic agent; Z88.0 Allergy status to penicillin; F17.210 Nicotine dependence, cigarettes, uncomplicated
CPT/HCPCS: 96372; 99283; J2175

== ENCOUNTER 2018-08-17 21:55 | Emergency (ER) | payer OTHER ==
[2018-08-17] MEDS ORDERED: HYDROCODONE/APAP 10/325 TAB ONE (23:10)
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
[2018-08-18 01:52] VITALS: TEMP 97.6
[2018-08-18 01:54] VITALS: BP 101/68; O2SAT 98
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
== END 2018-08-18 00:24 | disposition home or self-care (01) ==
LOC: ER 21:55
DX: S13.4XXA Sprain of ligaments of cervical spine, initial encounter (principal); S23.3XXA Sprain of ligaments of thoracic spine, initial encounter; V49.9XXA Car occupant (driver) (passenger) injured in unspecified traffic accident, initial encounter; G89.4 Chronic pain syndrome; F41.9 Anxiety disorder, unspecified; K21.9 Gastro-esophageal reflux disease without esophagitis; I10 Essential (primary) hypertension; Z88.6 Allergy status to analgesic agent; Z88.0 Allergy status to penicillin
CPT/HCPCS: 71250; 72125; 99283

== ENCOUNTER 2019-02-04 16:41 | Emergency (ER) | payer OTHER ==
[2019-02-04] MEDS ORDERED: AZITHROMYCIN 250 MG TAB ONE (18:10)
[2019-02-04] MEDS ORDERED: dexAMETHasone 4 MG TAB ONE (18:11)
[2019-02-04] MEDS ORDERED: IPRATROPIUM BROM 0.5MG/2.5ML ONE (18:11)
[2019-02-04] MEDS ORDERED: ALBUTEROL 2.5 MG/3 ML NEB SOL ONE (18:11)
--- NOTE | 2019-02-04 18:22 | RAD REPORT ---
EXAM DESCRIPTION: Michele Pa And Lat (2 Views)02/04/2019 5:34 pm CLINICAL HISTORY: Cough COMPARISON: June 2018 FINDINGS: Calcified lung granulomas are present. Couple areas of subsegmental atelectasis are present within the left lung base Right lung appears clear of acute infiltrate Heart is normal size
--- NOTE | 2019-02-04 18:43 | ER ---
Nurse's Notes [facility] Name: Vicky Walker Age: 58 yrs Sex: Female : 1960 Arrival Date: 02/04/2019 Time: 16:42 Bed 27 Private MD: Diagnosis: Pneumonia, unspecified organism Presentation: 02/04 17:11 Presenting complaint: Patient states: Cough, congestion, shortness of breath, jl7 subjective fever x 2 days. Transition of care: patient was not received from another setting of care. Resp Distress? No respiratory distress is noted at this time. Onset of symptoms was February 03, 2019. Risk Assessment: Do you want to hurt yourself or someone else? Patient reports no desire to harm self or others. Initial Sepsis Screen: Does the patient meet any 2 criteria? RR > 20 per min. No. Patient's initial sepsis screen is negative. Does the patient have a suspected source of infection? Yes: Productive cough/pneumonia. Care prior to arrival:. 17:11 Method Of Arrival: Ambulatory [facility] 17:11 Acuity: PIYUSH 3 jl7 Historical: - Allergies: 17:14 PENICILLINS; jl7 17:14 Toradol; jl7 - Home Meds: 17:14 Lisinopril Oral [Active]; Flonase 50 mcg/actuation Nasal spsn 1 spray 2 times per day jl7 [Active]; loratadine 10 mg Oral tab 1 tab once daily [Active]; Sperry 10-325 mg Oral tab three times a day [Active]; omeprazole 20 mg Oral cpDR 1 cap once daily [Active]; Xanax 1 mg Oral tab 1 tab 3 times per day [Active]; - PMHx: 17:14 allergies; Anxiety; Chronic pain; GERD; Hypertension; psoriasis; jl7 - PSHx: 17:14 Hysterectomy; Cholecystectomy; jl7 - Immunization history:: Adult Immunizations not up to date. - Social history:: Smoking status: Patient uses tobacco products, smokes one-half pack cigarettes per day. - Ebola Screening: : No symptoms or risks identified at this time. Screenin:30 Abuse screen: Denies threats or abuse. Denies injuries from another. Nutritional aj1 screening: No deficits noted. Tuberculosis screening: No symptoms or risk factors identified. 18:30 Fall Risk None identified. aj1 Assessment: 17:30 General: Appears in no apparent distress. uncomfortable, Behavior is calm, cooperative, aj1 appropriate for age. Pain: Complains of pain in left aspect of posterior pharynx and right aspect of posterior pharynx. Neuro: Level of Consciousness is awake, alert, obeys commands. Cardiovascular: Heart tones S1 S2 present Patient's skin is warm and dry. Respiratory: Reports shortness of breath cough that is hacking, persistent Airway is patent Respiratory effort is even, unlabored, Respiratory pattern is regular, symmetrical, Breath sounds with wheezes bilaterally. GI: No signs and/or symptoms were reported involving the gastrointestinal system. : No signs and/or symptoms were reported regarding the genitourinary system. EENT: Reports sore throat, ear pain. Derm: No signs and/or symptoms reported regarding the dermatologic system. Skin is pink, warm \T\ dry. normal. Musculoskeletal: No signs and/or symptoms reported regarding the musculoskeletal system. Circulation, motion, and sensation intact. 18:30 Reassessment: Patient appears in no apparent distress at this time. No changes from aj1 previously documented assessment. Patient and/or family updated on plan of care and expected duration. Pain level reassessed. Patient is alert, oriented x 3, equal unlabored respirations, skin warm/dry/pink. Vital Signs: 17:14 BP 159 / 78; Pulse 89; Resp 22 S; Temp 99.5(O); Pulse Ox 95% on R/A; Weight 79.38 kg jl7 (R); Height 5 ft. 2 in. (157.48 cm) (R); Pain 10/10; 18:30 BP 155 / 62; Pulse 88; Resp 20; Temp 99.4(O); Pulse Ox 96% on R/A; aj1 17:14 Body Mass Index 32.01 (79.38 kg, 157.48 cm) jl7 ED Course: 16:42 Patient arrived in ED. as 17:02 [facility]C [facility] snw 17:03 Dave Palafox MD is Attending Physician. snw 17:13 Triage completed. jl7 17:14 Arm band placed on right wrist. jl7 17:26 Isabela Petty, TANISHA is Primary Nurse. aj1 17:30 Warm blanket given. Verbal reassurance given. jp3 17:30 Patient has correct armband on for positive identification. Bed in low position. Call aj1 light in reach. 17:30 No provider procedures requiring assistance completed. aj1 17:33 Chest Pa And Lat (2 Views) XRAY In Process Unspecified. EDMS 17:50 Flu and/or RSV swab sent to lab. jp3 18:08 Flu Sent. jp3 19:06 Patient did not have IV access during this emergency room visit. aj1 Administered Medications: 18:18 Drug: Decadron 8 mg Route: PO; aa5 18:18 Drug: Zithromax 500 mg Route: PO; aa5 18:19 Drug: Albuterol - atroVENT (3:1) (2.5 mg - 0.5 mg) 3 ml Route: Nebulizer; aa5 Outcome: 18:42 Discharge ordered by . snw 19:06 Discharged to home ambulatory. aj1 19:06 Condition: good 19:06 Discharge instructions given to patient, Instructed on discharge instructions, follow up and referral plans. medication usage, Demonstrated understanding of instructions, follow-up care, medications, Prescriptions given X 3. 19:06 Patient left the ED. aj1 Signatures: Dispatcher [employer] EDIsabela Lindsay RN RN aj1 Jennifer Swenson, LCAC RADAR OPERATOR/NAVIGATOR-C LCAC RADAR OPERATOR/NAVIGATOR-Aide Romero Audri, RN RN aa5 Malvin Mccann RN RN jl7 Kirt Torres jp3
--- NOTE | 2019-02-04 18:43 | EDPHYS ---
Physician Documentation [facility] Name: Vicky Walker Age: 58 yrs Sex: Female : 1960 Arrival Date: 02/04/2019 Time: 16:42 Bed 27 Private MD: ED Physician Dave Palafox HPI: 02/04 18:11 This 58 yrs old Female presents to ER via Ambulatory with complaints of snw Cough, Congestion, Headache. 18:11 The patient or guardian reports airway noise, cough, flu symptoms, arthralgias, snw low-grade fever, myalgias, no appetite. Onset: The symptoms/episode began/occurred suddenly, 2 day(s) ago, and became persistent. Severity of symptoms: At their worst the symptoms were moderate, severe. Associated signs and symptoms: Pertinent positives: fever, sore throat. It is unknown whether or not the patient has had similar symptoms in the past. It is unknown whether or not the patient has recently seen a physician. has nebulizer at home. Historical: - Allergies: 17:14 PENICILLINS; jl7 17:14 Toradol; jl7 - Home Meds: 17:14 Lisinopril Oral [Active]; Flonase 50 mcg/actuation Nasal spsn 1 spray 2 times per day jl7 [Active]; loratadine 10 mg Oral tab 1 tab once daily [Active]; Wray 10-325 mg Oral tab three times a day [Active]; omeprazole 20 mg Oral cpDR 1 cap once daily [Active]; Xanax 1 mg Oral tab 1 tab 3 times per day [Active]; - PMHx: 17:14 allergies; Anxiety; Chronic pain; GERD; Hypertension; psoriasis; jl7 - PSHx: 17:14 Hysterectomy; Cholecystectomy; jl7 - Immunization history:: Adult Immunizations not up to date. - Social history:: Smoking status: Patient uses tobacco products, smokes one-half pack cigarettes per day. - Ebola Screening: : No symptoms or risks identified at this time. ROS: 18:10 Eyes: Negative for injury, pain, redness, and discharge, Neck: Negative for injury, snw pain, and swelling, Cardiovascular: Negative for chest pain, palpitations, and edema. 18:10 Abdomen/GI: Negative for abdominal pain, nausea, vomiting, diarrhea, and constipation, Back: Negative for injury and pain, : Negative for injury, bleeding, discharge, and swelling, MS/Extremity: Negative for injury and deformity, Skin: Negative for injury, rash, and discoloration, Neuro: Negative for headache, weakness, numbness, tingling, and seizure, Psych: Negative for depression, anxiety, suicide ideation, homicidal ideation, and hallucinations. 18:10 Constitutional: Positive for body aches, chills, fatigue, fever, malaise. 18:10 ENT: Positive for ear pain. 18:10 Respiratory: Positive for cough, shortness of breath, wheezing. Exam: 18:09 Constitutional: This is a well developed, well nourished patient who is awake, alert, snw and in no acute distress. Head/Face: Normocephalic, atraumatic. Eyes: Pupils equal round and reactive to light, extra-ocular motions intact. Lids and lashes normal. Conjunctiva and sclera are non-icteric and not injected. Cornea within normal limits. Periorbital areas with no swelling, redness, or edema. 18:09 Neck: Trachea midline, no thyromegaly or masses palpated, and no cervical lymphadenopathy. Supple, full range of motion without nuchal rigidity, or vertebral point tenderness. No Meningismus. Chest/axilla: Normal chest wall appearance and motion. Nontender with no deformity. No lesions are appreciated. Cardiovascular: Regular rate and rhythm with a normal S1 and S2. No gallops, murmurs, or rubs. Normal PMI, no JVD. No pulse deficits. 18:09 Abdomen/GI: Soft, non-tender, with normal bowel sounds. No distension or tympany. No guarding or rebound. No evidence of tenderness throughout. Back: No spinal tenderness. No costovertebral tenderness. Full range of motion. Skin: Warm, dry with normal turgor. Normal color with no rashes, no lesions, and no evidence of cellulitis. MS/ Extremity: Pulses equal, no cyanosis. Neurovascular intact. Full, normal range of motion. Neuro: Awake and alert, GCS 15, oriented to person, place, time, and situation. Cranial nerves II-XII grossly intact. Motor strength 5/5 in all extremities. Sensory grossly intact. Cerebellar exam normal. Normal gait. Psych: Awake, alert, with orientation to person, place and time. Behavior, mood, and affect are within normal limits. 18:09 ENT: TM's: erythema, that is moderate, on the right, Nose: is normal, Mouth: is normal, Posterior pharynx: is normal, Voice: is normal. 18:09 Respiratory: mild respiratory distress is noted, Respirations: shallow respirations, tachypnea, Breath sounds: wheezing: expiratory that is moderate, is heard diffusely. Vital Signs: 17:14 BP 159 / 78; Pulse 89; Resp 22 S; Temp 99.5(O); Pulse Ox 95% on R/A; Weight 79.38 kg jl7 (R); Height 5 ft. 2 in. (157.48 cm) (R); Pain 10/10; 18:30 BP 155 / 62; Pulse 88; Resp 20; Temp 99.4(O); Pulse Ox 96% on R/A; aj1 17:14 Body Mass Index 32.01 (79.38 kg, 157.48 cm) jl7 MDM: 17:20 Patient medically screened. snw 18:46 Data reviewed: vital signs, nurses notes. Data interpreted: Pulse oximetry: on room air snw is 95 %. Interpretation: normal. Counseling: I had a detailed discussion with the patient and/or guardian regarding: the historical points, exam findings, and any diagnostic results supporting the discharge/admit diagnosis, lab results, radiology results, the need for outpatient follow up, to return to the emergency department if symptoms worsen or persist or if there are any questions or concerns that arise at home, smoking cessation. Response to treatment: the patient's symptoms have mildly improved after treatment. Special discussion: I have referred the patient to see his PCP for further evaluation of high blood pressure. Based on the history and exam findings, there is no indication for further emergent testing or inpatient evaluation. I discussed with the patient/guardian the need to see the primary care provider for further evaluation of the symptoms. 02/04 17:21 Order name: Flu; Complete Time: 18:21 snw 02/04 17:21 Order name: Chest Pa And Lat (2 Views) XRAY; Complete Time: 18:41 snw Administered Medications: 18:18 Drug: Decadron 8 mg Route: PO; aa5 18:18 Drug: Zithromax 500 mg Route: PO; aa5 18:19 Drug: Albuterol - atroVENT (3:1) (2.5 mg - 0.5 mg) 3 ml Route: Nebulizer; aa5 Disposition: 19:08 Co-signature as Attending Physician, Dave Palafox MD. rn Disposition: 02/04/19 18:42 Discharged to Home. Impression: Pneumonia, unspecified organism. - Condition is Stable. - Discharge Instructions: Community-Acquired Pneumonia, Adult, Cough, Adult, Rehydration, Adult. - Prescriptions for Tessalon Perles 100 mg Oral Capsule - take 1 capsule by ORAL route every 8 hours As needed; 15 capsule. Albuterol Sulfate 90 mcg/actuation - inhale 1-2 puff by INHALATION route every 4-6 hours; 1 Inhaler. Zithromax 500 mg Oral Tablet - take 1 tablet by ORAL route once daily for 5 days; 5 tablet. - Work release form, Medication Reconciliation Form, Thank You Letter, Antibiotic Education, Prescription Opioid Use form. - Follow up: Private Physician; When: 2 - 3 days; Reason: Recheck today's complaints, Continuance of care, Re-evaluation by your physician. Follow up: Emergency Department; When: As needed; Reason: Worsening of condition. Signatures: Dispatcher [employer] EDIsabela Lindsay RN RN aj1 Jennifer Swenson, SLOT ROUTER-C SLOT ROUTER-Csnw Dave Palafox MD MD rn Calderon, Audri, RN RN aa5 Malvin Mccann RN RN jl7 Corrections: (The following items were deleted from the chart) 19:06 18:42 02/04/2019 18:42 Discharged to Home. Impression: Pneumonia, unspecified organism. aj1 Condition is Stable. Forms are Medication Reconciliation Form, Thank You Letter, Antibiotic Education, Prescription Opioid Use. Follow up: Private Physician; When: 2 - 3 days; Reason: Recheck today's complaints, Continuance of care, Re-evaluation by your physician. Follow up: Emergency Department; When: As needed; Reason: Worsening of condition. snw
[2019-02-04 21:14] VITALS: BP 155/62; TEMP 99.4; O2SAT 96
== END 2019-02-04 19:06 | disposition home or self-care (01) ==
LOC: ER 16:41
DX: J18.9 Pneumonia, unspecified organism (principal); I10 Essential (primary) hypertension; F41.9 Anxiety disorder, unspecified; F17.210 Nicotine dependence, cigarettes, uncomplicated; Z88.0 Allergy status to penicillin; Z88.6 Allergy status to analgesic agent
CPT/HCPCS: 71046; 87804; 94640; 99284; J8540

== ENCOUNTER 2019-02-18 10:47 | Emergency (ER) | payer OTHER ==
--- OUTSIDE RECORDS SUMMARY | 2019-02-18 10:52 | XMS REPORT ---
:1960 [facility] Address [address] [place] [address] Care Team Providers Name Role Phone Unavailable Unavailable Unavailable Problems This patient has no known problems. Allergies, Adverse Reactions, Alerts This patient has no known allergies or adverse reactions. Medications This patient has no known medications.
[2019-02-18] MEDS ORDERED: HYDROCODONE/CHLORPHEN 5 ML/OSYR ONE (11:19)
--- NOTE | 2019-02-18 11:38 | RAD REPORT ---
EXAM DESCRIPTION: RAD - Chest Pa And Lat (2 Views) - 02/18/2019 11:31 am CLINICAL HISTORY: COUGH Chest pain. COMPARISON: Chest Pa And Lat (2 Views) dated 02/04/2019; Chest Single View dated 06/13/2018; Chest Pa And Lat (2 Views) dated 03/13/2018; Chest Pa And Lat (2 Views) dated 03/04/2018 FINDINGS: Small calcified granulomas are present in the right lung. The lungs are hyperexpanded comp atible with mild COPD. The heart is upper limit normal in size. No displaced fractures. IMPRESSION: No acute process seen.
[2019-02-18] MEDS ORDERED: predniSONE 20 MG TAB ONE (11:54)
--- NOTE | 2019-02-18 11:54 | ER ---
Nurse's Notes [facility] Name: Vicky Walker Age: 58 yrs Sex: Female : 1960 Arrival Date: 02/18/2019 Time: 10:49 Bed 6 Private MD: Diagnosis: Unspecified chronic bronchitis Presentation: 02/18 10:57 Presenting complaint: Patient states: R ear pain, sinus pressure, body aches and sore ss throat that began 2-3 days ago . Unknown fever. Pt was seen at [place] [facility] 2 weeks ago, given antibiotics, began feeling better, but now she is feeling worse again. Transition of care: patient was not received from another setting of care. Onset of symptoms was February 15, 2019. Risk Assessment: Do you want to hurt yourself or someone else? Patient reports no desire to harm self or others. Initial Sepsis Screen: Does the patient meet any 2 criteria? No. Patient's initial sepsis screen is negative. Does the patient have a suspected source of infection? No. Patient's initial sepsis screen is negative. Care prior to arrival: None. 10:57 Method Of Arrival: Ambulatory ss 10:57 Acuity: PIYUSH 4 ss Historical: - Allergies: 10:59 PENICILLINS; ss 10:59 Toradol; ss - PMHx: 10:59 allergies; Anxiety; Chronic pain; GERD; Hypertension; psoriasis; ss - PSHx: 10:59 Hysterectomy; Cholecystectomy; ss - Immunization history:: Adult Immunizations up to date. - Social history:: Smoking status: Patient uses tobacco products, smokes one-half pack cigarettes per day. - Ebola Screening: : Patient denies exposure to infectious person Patient denies travel to an Ebola-affected area in the 21 days before illness onset. Screenin:53 Abuse screen: Denies threats or abuse. Denies injuries from another. Nutritional sg screening: No deficits noted. Tuberculosis screening: No symptoms or risk factors identified. Never had TB. Fall Risk None identified. Assessment: 10:52 General: Appears in no apparent distress. well groomed, well developed, well nourished, sg Behavior is calm, cooperative, appropriate for age. Pain: Complains of pain in forehead and right cheek Quality of pain is described as aching, throbbing. Neuro: Level of Consciousness is awake, alert, obeys commands, Oriented to person, place, time, Moves all extremities. Gait is steady. Cardiovascular: Reports shortness of breath, Capillary refill is brisk in bilateral fingers Patient's skin is warm and dry. Chest pain is denied. Respiratory: Reports shortness of breath on exertion cough that is dry, Airway is patent Respiratory effort is even, unlabored, Respiratory pattern is regular, symmetrical. GI: Abdomen is round non-distended, obese, Reports normal bowel habits, tolerance of fluids, tolerance of food. : No signs and/or symptoms were reported regarding the genitourinary system. EENT: Ear canal clear on left ear and right ear Oral mucosa is moist. Throat is pink. Derm: Skin is pink, warm \T\ dry. Musculoskeletal: Circulation, motion, and sensation intact. Range of motion: intact in all extremities. Vital Signs: 10:59 BP 144 / 93; Pulse 86; Resp 16; Temp 97.9(TE); Pulse Ox 97% on R/A; Weight 79.38 kg; ss Height 5 ft. 2 in. (157.48 cm); Pain 10/10; 10:59 Body Mass Index 32.01 (79.38 kg, 157.48 cm) ss ED Course: 10:49 Patient arrived in ED. as 10:50 Jennifer Swenson FNP-C [facility]. snw 10:50 Dave Palafox MD is Attending Physician. snw 10:52 Rafat Verma, TANISHA is Primary Nurse. sg 10:58 Triage completed. ss 10:59 Arm band placed on right wrist. ss 11:22 Awaiting for x-ray. sg 11:33 Patient moved back from radiology. sg 11:33 Assisted to bathroom. sg 11:37 Chest Pa And Lat (2 Views) XRAY In Process Unspecified. EDMS Administered Medications: 11:18 Drug: Tussionex Pennkinetic ER 5 ml Route: PO; sg 12:00 Follow up: Response: No adverse reaction; Pain is decreased; RASS: Drowsy (-1) sg 12:00 Drug: predniSONE 20 mg Route: PO; sg 12:06 Follow up: Response: No adverse reaction sg 12:00 Drug: Pepcid 20 mg Route: PO; sg 12:06 Follow up: Response: No adverse reaction sg Outcome: 11:53 Discharge ordered by . snw 12:06 Patient left the ED. sg Signatures: Dispatcher [employer] EDRafat Zuniga, RN RN sg Jennifer Swenson, TELEGRAPHIC TYPEWRITER REPAIRER-C TELEGRAPHIC TYPEWRITER REPAIRER-Aide Romero Shelby, RN RN ss
--- NOTE | 2019-02-18 11:54 | EDPHYS ---
Physician Documentation [facility] Name: Vicky Walker Age: 58 yrs Sex: Female : 1960 Arrival Date: 02/18/2019 Time: 10:49 Bed 6 Private MD: ED Physician Dave Palafox HPI: 02/18 11:55 This 58 yrs old Female presents to ER via Ambulatory with complaints of Ear snw Pain, Sinus Pain, Shortness Of Breath. 11:55 The patient presents with a fullness, pain. The complaints affect the right ear. Onset: snw The symptoms/episode began/occurred gradually. Associated signs and symptoms: Pertinent positives: cough, shortness of breath. Severity of symptoms: At their worst the symptoms were moderate. The patient has experienced similar episodes in the past. The patient has been recently seen by a physician: The patient has been recently seen at the [facility] Emergency Department, a couple of weeks ago, for similar complaints was given a prescription for antibiotics. continued cough, right ear pain. Historical: - Allergies: 10:59 PENICILLINS; ss 10:59 Toradol; ss - PMHx: 10:59 allergies; Anxiety; Chronic pain; GERD; Hypertension; psoriasis; ss - PSHx: 10:59 Hysterectomy; Cholecystectomy; ss - Immunization history:: Adult Immunizations up to date. - Social history:: Smoking status: Patient uses tobacco products, smokes one-half pack cigarettes per day. - Ebola Screening: : Patient denies exposure to infectious person Patient denies travel to an Ebola-affected area in the 21 days before illness onset. ROS: 11:55 Eyes: Negative for injury, pain, redness, and discharge. snw 11:55 Neck: Negative for injury, pain, and swelling, Cardiovascular: Negative for chest pain, palpitations, and edema. 11:55 Abdomen/GI: Negative for abdominal pain, nausea, vomiting, diarrhea, and constipation, Back: Negative for injury and pain, : Negative for injury, bleeding, discharge, and swelling, MS/Extremity: Negative for injury and deformity, Skin: Negative for injury, rash, and discoloration, Neuro: Negative for headache, weakness, numbness, tingling, and seizure. 11:55 Constitutional: Positive for body aches, fatigue, malaise. 11:55 ENT: Positive for ear pain. 11:55 Respiratory: Positive for cough, with no reported sputum. Exam: 11:07 Head/Face: Normocephalic, atraumatic. Eyes: Pupils equal round and reactive to light, snw extra-ocular motions intact. Lids and lashes normal. Conjunctiva and sclera are non-icteric and not injected. Cornea within normal limits. Periorbital areas with no swelling, redness, or edema. 11:07 Neck: Trachea midline, no thyromegaly or masses palpated, and no cervical lymphadenopathy. Supple, full range of motion without nuchal rigidity, or vertebral point tenderness. No Meningismus. Chest/axilla: Normal chest wall appearance and motion. Nontender with no deformity. No lesions are appreciated. Cardiovascular: Regular rate and rhythm with a normal S1 and S2. No gallops, murmurs, or rubs. Normal PMI, no JVD. No pulse deficits. Respiratory: Lungs have equal breath sounds bilaterally, clear to auscultation and percussion. No rales, rhonchi or wheezes noted except to right lower lobe. No increased work of breathing, no retractions or nasal flaring. Abdomen/GI: Soft, non-tender, with normal bowel sounds. No distension or tympany. No guarding or rebound. No evidence of tenderness throughout. Back: No spinal tenderness. No costovertebral tenderness. Full range of motion. Skin: Warm, dry with normal turgor. Normal color with no rashes, no lesions, and no evidence of cellulitis. MS/ Extremity: Pulses equal, no cyanosis. Neurovascular intact. Full, normal range of motion. Neuro: Awake and alert, GCS 15, oriented to person, place, time, and situation. Cranial nerves II-XII grossly intact. Motor strength 5/5 in all extremities. Sensory grossly intact. Cerebellar exam normal. Normal gait. 11:07 Constitutional: The patient appears awake, anxious, uncomfortable. 11:07 ENT: TM's: decreased mobility, on the right, Mouth: is normal, Voice: is normal. 11:07 Psych: Behavior/mood is tearful. Vital Signs: 10:59 BP 144 / 93; Pulse 86; Resp 16; Temp 97.9(TE); Pulse Ox 97% on R/A; Weight 79.38 kg; ss Height 5 ft. 2 in. (157.48 cm); Pain 1010; 10:59 Body Mass Index 32.01 (79.38 kg, 157.48 cm) ss MDM: 10:54 Patient medically screened. snw 11:54 Data reviewed: vital signs. Data interpreted: Pulse oximetry: on room air is 97 %. snw Counseling: I had a detailed discussion with the patient and/or guardian regarding: the historical points, exam findings, and any diagnostic results supporting the discharge/admit diagnosis, the presence of at least one elevated blood pressure reading (>120/80) during this emergency department visit, radiology results, the need for outpatient follow up, to return to the emergency department if symptoms worsen or persist or if there are any questions or concerns that arise at home. Special discussion: Based on the history and exam findings, there is no indication for further emergent testing or inpatient evaluation. I discussed with the patient/guardian the need to see the primary care provider for further evaluation of the symptoms. 02/18 11:12 Order name: Chest Pa And Lat (2 Views) XRAY; Complete Time: 11:49 snw Administered Medications: 11:18 Drug: Tussionex Pennkinetic ER 5 ml Route: PO; sg 12:00 Follow up: Response: No adverse reaction; Pain is decreased; RASS: Drowsy (-1) sg 12:00 Drug: predniSONE 20 mg Route: PO; sg 12:06 Follow up: Response: No adverse reaction sg 12:00 Drug: Pepcid 20 mg Route: PO; sg 12:06 Follow up: Response: No adverse reaction sg Disposition: 12:56 Co-signature as Attending Physician, Dave Palafxo MD. rn Disposition: 02/18/19 11:53 Discharged to Home. Impression: Unspecified chronic bronchitis. - Condition is Stable. - Discharge Instructions: Chronic Bronchitis. - Prescriptions for Prednisone 20 mg Oral Tablet - take 1 tablet by ORAL route once daily for 5 days; 5 tablet. Pepcid 20 mg Oral Tablet - take 1 tablet by ORAL route once daily; 20 tablet. - Medication Reconciliation Form, Thank You Letter, Antibiotic Education, Prescription Opioid Use form. - Follow up: Emergency Department; When: As needed; Reason: Worsening of condition. Follow up: Private Physician; When: 2 - 3 days; Reason: Recheck today's complaints, Continuance of care, Re-evaluation by your physician. Signatures: Dispatcher [employer] EDRafat Zuniga RN RN sg Jennifer Swenson, PATIENT TRANSPORTER-C PATIENT TRANSPORTER-Csnw Dave Palafox MD MD rn Smirch, Shelby, RN RN ss Corrections: (The following items were deleted from the chart) 12:06 11:53 02/18/2019 11:53 Discharged to Home. Impression: Unspecified chronic bronchitis. sg Condition is Stable. Forms are Medication Reconciliation Form, Thank You Letter, Antibiotic Education, Prescription Opioid Use. Follow up: Emergency Department; When: As needed; Reason: Worsening of condition. Follow up: Private Physician; When: 2 - 3 days; Reason: Recheck today's complaints, Continuance of care, Re-evaluation by your physician. snw
[2019-02-18] MEDS ORDERED: FAMOTIDINE 20 MG TAB ONE (11:55)
[2019-02-18 15:21] VITALS: BP 144/93; TEMP 97.9; O2SAT 97
== END 2019-02-18 12:06 | disposition home or self-care (01) ==
LOC: ER 10:47
DX: J42 Unspecified chronic bronchitis (principal); I10 Essential (primary) hypertension; F17.210 Nicotine dependence, cigarettes, uncomplicated; Z88.0 Allergy status to penicillin; Z88.5 Allergy status to narcotic agent
CPT/HCPCS: 71046; 99283; J7512

== ENCOUNTER 2019-04-26 06:25 | Emergency (ER) | payer OTHER ==
--- OUTSIDE RECORDS SUMMARY | 2019-04-26 06:27 | XMS REPORT ---
:1960 [facility] [address] [place] [address] Care Team Providers Name Role Phone Unavailable Unavailable Unavailable Problems This patient has no known problems. Allergies, Adverse Reactions, Alerts This patient has no known allergies or adverse reactions. Medications This patient has no known medications.
--- OUTSIDE RECORDS SUMMARY | 2019-04-26 06:28 | XMS REPORT | Continuity of Care Document ---
:1960 Author Organization [facility] Care Team Providers Name Role Phone ADAM ANTUNEZ Primary Care Physician Allergies, Adverse Reactions, Alerts Allergen Type Severity Reaction Last Updated Verified Status Penicillin Allergy Unknown January No Active 2018 PENICILLIN Allergy Unknown July 24, No Active AND 2007 DERIVATIVES* Medications Medication Status Dose Units Route Sig Qty Days Start End Instructions Date Date Methylprednisolo Active 1 DSPK PO As 31 January Take as ne (Medrol Directed , directed on Dose-Pack) 2018 package Tab/Dspk TAB 6:52pm insert. Problems Active Problems Medical Problem Onset Date Status Left against medical advice Active Inactive/Resolved Problems Medical Problem Onset Date Status Pressure-related ear pain Resolved Rhinitis Resolved Procedures No procedure information available. Relevant Diagnostic Tests and/or Laboratory Data Laboratory Results Test Date/Time Result Interpretation Reference Result Performing Range Comment Site Group A January Negative Negative An order [facility], [address] [place] [address] 2018 [place] [id number] Screen 6:38pm Group A Culture has been reflexed as a result of a negative Strep Group A screening test. Health Concerns Health Concerns may be documented in an alternate section. Advance Directives Advance Directive Response Recorded Date/Time Does the Patient have an No February 24, 2019 6:35pm Advance Directive? Chief Complaint and Reason for Visit Chief Complaint Sore Throat Reason for Visit [id number] Encounters Encounter Location(s) Arrival/Admit Date Discharge/Depart Date Provider(s) Departed [facility] February 24, February 24, 2019 [facility] 6:14pm 7:15pm R MD Assessments No Assessments Information Available Functional Status Observation Response Date Recorded Onset Within the Last 7 Days No Problem Identified February 24, 2019 6:35pm Goals Goals may be documented in an alternate section. Immunizations No Immunization Information Available Mental Status No Mental Status Information Available Medical Equipment No Medical Equipment Information available Insurance Providers Guarantor James Arechiga Address [address] [facility] [address] Contact Info. Home Phone: Payer Policy Id Coverage Id Subscriber's Subscriber Id Effective Expiration Name Date Date Medicare [id number] Aaron [id number] January James Sosa 2010 [place] [id number] Aaron [id number] January Plus K[address] James Sosa 2010 Plan of Treatment Zyrtec-D twice a day for neck 7 days Mucinex sinus max [place] pot as directed Follow-up with your primary provider in a week Follow-up sooner for any questions or concerns Thank you for choosing [facility] have [facility] blessed day Future Tests Future scheduled test information is unavailable Pending Tests Test Name Date ordered Group A Streptococcus Culture February 24, 2019 6:38pm Future Visits Future appointment information is unavailable Referrals to Other Providers Reason for Referral Start Provider Provider Contact Provider Address Referral Date Information Haydee ANTUNEZ Phone: [phone] [place] [facility] [address] Future Procedures Future procedure information is unavailable Future Medications Future medication information is unavailable Patient Instructions Eustachian Tube Problems Eustachian Tube Problems (DC) Social History Smoking Status Status Date of Observation Current Light tobacco smoker February 24, 2019 6:35pm Observation Status Observation Response Date of Response Hx Tobacco Use Y - 4 CIGS DAILY February 24, 2019 6:35pm Assigned Sex Female Vital Signs Vital Reading Result Reference Range Collection Date/Time Body Temperature 98.0 [degF] (97.6 - 99.5) February 24, 2019 7:15pm Heart Rate 94 /min (60 - 100) February 24, 2019 6:32pm Heart Rate 94 /min February 24, 2019 7:15pm Respiratory rate 20 /min (12 - 24) February 24, 2019 6:32pm Respiratory rate 20 /min February 24, 2019 7:15pm BP Systolic 134 mm[Hg] (100 - 140) February 24, 2019 6:32pm BP Systolic 134 mm[Hg] February 24, 2019 7:15pm BP Diastolic 71 mm[Hg] (60 - 90) February 24, 2019 6:32pm BP Diastolic 71 mm[Hg] February 24, 2019 7:15pm Weight 180 [lb_av] February 24, 2019 6:32pm BMI (Body Mass Index) 32.9 kg/m2 February 24, 2019 6:32pm
[2019-04-26] MEDS ORDERED: FENTANYL CITR 100 MCG/2 ML ONE (06:54)
--- NOTE | 2019-04-26 07:37 | ER ---
Nurse's Notes [facility] Name: Vicky Walker Age: 58 yrs Sex: Female : 1960 Arrival Date: 04/26/2019 Time: 06:27 Bed 4 Private MD: Diagnosis: Unspecified fracture of left forearm-buckle fracture left radius Presentation: 04/26 06:29 Presenting complaint: EMS states: Called for patient with L wrist pain radiating up arm lp1 to shoulder; States falling earlier this morning when attempting to walk up stairs into trailer; Denies LOC; States pain to left knee; able to ambulate. Care prior to arrival: None. Mechanism of Injury: Fall down steps. 06:29 Acuity: PIYUSH 4 lp1 06:29 Method Of Arrival: EMS: [facility] lp1 06:39 Transition of care: patient was not received from another setting of care. Onset of lp1 symptoms was April 26, 2019 at 00:30. Risk Assessment: Do you want to hurt yourself or someone else? Patient reports no desire to harm self or others. Initial Sepsis Screen: Does the patient meet any 2 criteria? No. Patient's initial sepsis screen is negative. Does the patient have a suspected source of infection? No. Patient's initial sepsis screen is negative. Historical: - Allergies: 06:39 PENICILLINS; lp1 06:39 Toradol; lp1 - Home Meds: 06:39 lisinopril Oral [Active]; Flonase 50 mcg/actuation Nasal spsn 1 spray 2 times per day lp1 [Active]; loratadine 10 mg Oral tab 1 tab once daily [Active]; Xanax 1 mg Oral tab 1 tab 3 times per day [Active]; omeprazole 20 mg Oral cpDR 1 cap once daily [Active]; amlodipine 10 mg tab 1 tab once daily for Hypertension [Active]; [place] 10-325 mg Oral tab three times a day [Active]; - PMHx: 06:39 allergies; Anxiety; Chronic pain; GERD; Hypertension; psoriasis; lp1 - PSHx: 06:39 Hysterectomy; Cholecystectomy; lp1 - Immunization history:: Adult Immunizations up to date. - Coronavirus screen:: The patient has NOT traveled to [place] in the past 14 days. The patient has NOT had contact with known/suspected case of Coronavirus?. - Social history:: Smoking status: Patient reports the use of cigarette tobacco products, smokes one-half pack cigarettes per day. - Ebola Screening: : No symptoms or risks identified at this time. Screenin:37 Abuse screen: Denies threats or abuse. Denies injuries from another. Nutritional lp1 screening: No deficits noted. Tuberculosis screening: No symptoms or risk factors identified. Fall Risk None identified. Assessment: 06:37 General: Appears uncomfortable, Behavior is crying. Pain: Complains of pain in left lp1 wrist, left knee Pain radiates to left shoulder Pain currently is 8 out of 10 on a pain scale. Aggravated by repositioning. Neuro: No deficits noted. Cardiovascular: No deficits noted. Respiratory: No deficits noted. GI: No signs and/or symptoms were reported involving the gastrointestinal system. : No signs and/or symptoms were reported regarding the genitourinary system. EENT: No signs and/or symptoms were reported regarding the EENT system. Derm: Skin is pink, warm \T\ dry. Musculoskeletal: No deficits noted. 07:30 Reassessment: Patient appears in no apparent distress at this time. No changes from hb previously documented assessment. Patient is alert, oriented x 3, equal unlabored respirations, skin warm/dry/pink. Vital Signs: 06:36 BP 96 / 74; Pulse 86; Resp 18; Temp 98(O); Pulse Ox 96% on R/A; Weight 79.38 kg (R); lp1 Height 5 ft. 2 in. (157.48 cm); Pain 8/10; 06:52 BP 123 / 94; Pulse 86; Resp 18; Pulse Ox 96% on R/A; lp1 07:30 BP 126 / 86; Pulse 82; Resp 15; Pulse Ox 100% on R/A; hb 06:36 Body Mass Index 32.01 (79.38 kg, 157.48 cm) lp1 ED Course: 06:27 Patient arrived in ED. ds1 06:29 Trisha Broussard, TANISHA is Primary Nurse. lp1 06:30 Triage completed. lp1 06:30 Arm band placed on. lp1 06:39 Tigist Hurt FNP-C [facility]. kb 06:39 Kameron Soriano MD is Attending Physician. kb 06:39 Patient has correct armband on for positive identification. lp1 07:03 Forearm Left XRAY In Process Unspecified. EDMS 07:41 Orthoglass splint: Sugar tong splint applied on left arm. Sling applied to left arm. em1 08:02 No provider procedures requiring assistance completed. Patient did not have IV access hb during this emergency room visit. Administered Medications: 06:56 Drug: fentaNYL (PF) 50 mcg {Note: Patient requested injection in left arm.} Route: IM; lp1 Site: left deltoid; Outcome: 07:36 Discharge ordered by MD. kb 08:02 Discharged to home ambulatory, with family. hb 08:02 Condition: stable 08:02 Discharge instructions given to patient, family, Instructed on discharge instructions, follow up and referral plans. medication usage, Demonstrated understanding of instructions, follow-up care, medications, Prescriptions given X 1. 08:02 Patient left the ED. hb Signatures: Dispatcher [employer] EDMS Tigist Hurt, LOOM CHANGEOVER OPERATOR-C LOOM CHANGEOVER OPERATOR-CkAida Alberto ds1 Dawood Santiago em1 Trisha Broussard, TANISHA RN lp1 Dianne Hunt, TANISHA RN hb
--- NOTE | 2019-04-26 07:37 | EDPHYS ---
Physician Documentation [facility] Name: Vicky Walker Age: 58 yrs Sex: Female : 1960 Arrival Date: 04/26/2019 Time: 06:27 Bed 4 Private MD: ED Physician Kameron Soriano HPI: 04/26 07:40 This 58 yrs old Female presents to ER via EMS with complaints of Fall Injury. kb 07:40 Details of fall: The patient fell from an upright position. Onset: The symptoms/episode kb began/occurred this morning. Associated injuries: The patient sustained left forearm, decreased range of motion, painful injury, swelling, left knee, abrasion. Severity of symptoms: At their worst the symptoms were moderate, in the emergency department the symptoms are unchanged. The patient has not experienced similar symptoms in the past. The patient has not recently seen a physician. Pt reports she tripped on rug when she went up the stairs into her RV. Reports pain to left forearm. States "I think I bruised my knee but I'm not worried about that." . Historical: - Allergies: 06:39 PENICILLINS; lp1 06:39 Toradol; lp1 - Home Meds: 06:39 lisinopril Oral [Active]; Flonase 50 mcg/actuation Nasal spsn 1 spray 2 times per day lp1 [Active]; loratadine 10 mg Oral tab 1 tab once daily [Active]; Xanax 1 mg Oral tab 1 tab 3 times per day [Active]; omeprazole 20 mg Oral cpDR 1 cap once daily [Active]; amlodipine 10 mg tab 1 tab once daily for Hypertension [Active]; [place] 10-325 mg Oral tab three times a day [Active]; - PMHx: 06:39 allergies; Anxiety; Chronic pain; GERD; Hypertension; psoriasis; lp1 - PSHx: 06:39 Hysterectomy; Cholecystectomy; lp1 - Immunization history:: Adult Immunizations up to date. - Coronavirus screen:: The patient has NOT traveled to [place] in the past 14 days. The patient has NOT had contact with known/suspected case of Coronavirus?. - Social history:: Smoking status: Patient reports the use of cigarette tobacco products, smokes one-half pack cigarettes per day. - Ebola Screening: : No symptoms or risks identified at this time. ROS: 07:38 Constitutional: Negative for fever, chills, and weight loss, Neck: Negative for injury, kb pain, and swelling, Cardiovascular: Negative for chest pain, palpitations, and edema, Respiratory: Negative for shortness of breath, cough, wheezing, and pleuritic chest pain, Abdomen/GI: Negative for abdominal pain, nausea, vomiting, diarrhea, and constipation, Back: Negative for injury and pain, Skin: Negative for injury, rash, and discoloration, Neuro: Negative for headache, weakness, numbness, tingling, and seizure. 07:38 MS/extremity: Positive for injury or acute deformity, decreased range of motion, pain, swelling, tenderness, of the left forearm. 07:39 MS/extremity: Positive for abrasion, of the left knee. kb Exam: 07:40 Constitutional: This is a well developed, well nourished patient who is awake, alert, kb and in no acute distress. Head/Face: Normocephalic, atraumatic. Chest/axilla: Normal chest wall appearance and motion. Nontender with no deformity. No lesions are appreciated. Cardiovascular: Regular rate and rhythm with a normal S1 and S2. No gallops, murmurs, or rubs. Normal PMI, no JVD. No pulse deficits. Respiratory: Lungs have equal breath sounds bilaterally, clear to auscultation and percussion. No rales, rhonchi or wheezes noted. No increased work of breathing, no retractions or nasal flaring. Abdomen/GI: Soft, non-tender, with normal bowel sounds. No distension or tympany. No guarding or rebound. No evidence of tenderness throughout. Skin: Warm, dry with normal turgor. Normal color with no rashes, no lesions, and no evidence of cellulitis. Neuro: Awake and alert, GCS 15, oriented to person, place, time, and situation. Cranial nerves II-XII grossly intact. Motor strength 5/5 in all extremities. Sensory grossly intact. Cerebellar exam normal. Normal gait. 07:40 Musculoskeletal/extremity: Extremities: grossly normal except: noted in the left forearm: decreased ROM, pain, swelling, tenderness, noted in the left knee: abrasion, ROM: limited active range of motion due to pain, in the left forearm, Circulation is intact in all extremities. Sensation intact. Weight bearing: able to fully bear weight, without difficulty. Vital Signs: 06:36 BP 96 / 74; Pulse 86; Resp 18; Temp 98(O); Pulse Ox 96% on R/A; Weight 79.38 kg (R); lp1 Height 5 ft. 2 in. (157.48 cm); Pain 8/10; 06:52 BP 123 / 94; Pulse 86; Resp 18; Pulse Ox 96% on R/A; lp1 07:30 BP 126 / 86; Pulse 82; Resp 15; Pulse Ox 100% on R/A; hb 06:36 Body Mass Index 32.01 (79.38 kg, 157.48 cm) lp1 Procedures: 07:42 Splinting: Splint applied to left forearm using Orthoglass splint, applied by tech. kb Examined by me, post splint application: neurovascular intact, 2+ distal pulses palpable, brisk capillary refill noted, Patient tolerated well. MDM: 06:39 Patient medically screened. kb 07:39 Differential diagnosis: contusion, fracture, sprain. Data reviewed: vital signs, nurses kb notes, radiologic studies. Data interpreted: Pulse oximetry: on room air is 96 %. Interpretation: normal. Test interpretation: by ED physician or midlevel provider: plain radiologic studies, buckle fracture left radius. Counseling: I had a detailed discussion with the patient and/or guardian regarding: the historical points, exam findings, and any diagnostic results supporting the discharge/admit diagnosis, radiology results, the need for outpatient follow up, a orthopedic surgeon, to return to the emergency department if symptoms worsen or persist or if there are any questions or concerns that arise at home. 04/26 06:43 Order name: Forearm Left XRAY 04/26 07:42 Order name: Sugar Tong Forearm Splint; Complete Time: 07:48 kb 04/26 07:42 Order name: Sling; Complete Time: 07:48 kb Administered Medications: 06:56 Drug: fentaNYL (PF) 50 mcg {Note: Patient requested injection in left arm.} Route: IM; lp1 Site: left deltoid; Disposition: 04/26/19 07:36 Discharged to Home. Impression: Unspecified fracture of left forearm - buckle fracture left radius. - Condition is Stable. - Discharge Instructions: Forearm Fracture, [id number], Cast or Splint Care, [id number]. - Prescriptions for Tramadol 50 mg Oral Tablet - take 1 tablet by ORAL route every 8 hours as needed; 12 tablet. - Medication Reconciliation Form, Thank You Letter, Antibiotic Education, Prescription Opioid Use form. - Follow up: Emergency Department; When: As needed; Reason: Worsening of condition. Follow up: Private Physician; When: 2 - 3 days; Reason: Recheck today's complaints, Continuance of care, Re-evaluation by your physician. Addendum: 05/02/2019 19:01 Co-signature as Attending Physician, Kameron nevarez Signatures: Dispatcher [employer] EDMS Tigist Hurt, ADIS-C ADIS-Kameron De La Rosa MD MD pkl Pena, Laura RN RN lp1 Dianne Hunt RN RN Corrections: (The following items were deleted from the chart) 04/26 08:02 07:36 04/26/2019 07:36 Discharged to Home. Impression: Unspecified fracture of left hb forearm - buckle fracture left radius. Condition is Stable. Forms are Medication Reconciliation Form, Thank You Letter, Antibiotic Education, Prescription Opioid Use. Follow up: Emergency Department; When: As needed; Reason: Worsening of condition. Follow up: Private Physician; When: 2 - 3 days; Reason: Recheck today's complaints, Continuance of care, Re-evaluation by your physician. kb
[2019-04-26 08:24] VITALS: TEMP 98
[2019-04-26 08:27] VITALS: BP 126/86; O2SAT 100
--- NOTE | 2019-04-26 09:11 | RAD REPORT ---
EXAM DESCRIPTION: RAD - Forearm Left - 04/26/2019 7:02 am CLINICAL HISTORY: Left forearm pain FINDINGS: No fracture is seen
== END 2019-04-26 08:02 | disposition home or self-care (01) ==
LOC: ER 06:25
PROC: 2W3DX1Z Immobilization of Left Lower Arm using Splint (ICD-10-PCS; principal; 2019-04-26)
DX: S52.92XA Unspecified fracture of left forearm, initial encounter for closed fracture (principal); S80.212A Abrasion, left knee, initial encounter; W01.0XXA Fall on same level from slipping, tripping and stumbling without subsequent striking against object, initial encounter; Y93.89 Activity, other specified; Y92.028 Other place in mobile home as the place of occurrence of the external cause; F17.210 Nicotine dependence, cigarettes, uncomplicated; I10 Essential (primary) hypertension; F41.9 Anxiety disorder, unspecified; Z88.0 Allergy status to penicillin; Z88.5 Allergy status to narcotic agent
CPT/HCPCS: 73090; 96372; 99284; 29125; J3010

== ENCOUNTER 2019-12-23 09:00 | Emergency (ER) | payer OTHER ==
--- NOTE | 2019-12-23 09:18 | EDPHYS ---
Physician Documentation [facility] Name: Vicky Walker Age: 59 yrs Sex: Female : 1960 Arrival Date: 12/23/2019 Time: 09:02 Bed 5 Private MD: ED Physician Gomez Castillo HPI: 12/22 09:12 This 59 yrs old Female presents to ER via Unassigned with complaints of Skin kb Problem. 09:12 The patient's rash thought to be caused by an unknown cause. The rash is located on the kb right hand and left hand. The rash can be described as erythematous, dry skin with cracks. Onset: The symptoms/episode began/occurred 3 day(s) ago, and became worse yesterday. Associated signs and symptoms: Pertinent positives: Pain Pertinent negatives: burning sensation, difficulty breathing, fever, itching, nausea, swelling of lips, swelling of throat, swelling of tongue, vomiting, wheezing. Severity of symptoms: At their worst the symptoms were moderate in the emergency department the symptoms are unchanged. Treatment given at home: OTC lotion/cream. The patient has experienced similar episodes in the past, chronically. The patient has not recently seen a physician. Pt reports her hands started becoming red, dry and painful 3 days ago. States some areas started cracking yesterday. Reports this has happened all of her life and the supervisor [employer] told her it was due to stress. Normally takes prednisone when this happens and it clears up. "I don't want to be on prednisone my whole life so I'm going to a new supervisor [employer] [facility] in [place], but I need a shot of prednisone or something now to help the pain." Reports she has been washing hands with a new soap for the last few days. Educated to switch back to the soap she is used to using. . Historical: - Allergies: 09:34 PENICILLINS; jl7 - PMHx: 09:34 allergies; Anxiety; Chronic pain; GERD; Hypertension; psoriasis; jl7 - PSHx: 09:34 Hysterectomy; Cholecystectomy; jl7 - Immunization history:: Adult Immunizations unknown. - Social history:: Smoking status: Patient reports the use of cigarette tobacco products, smokes one-half pack cigarettes per day. ROS: 09:15 Constitutional: Negative for fever, chills, and weight loss, Cardiovascular: Negative kb for chest pain, palpitations, and edema, Respiratory: Negative for shortness of breath, cough, wheezing, and pleuritic chest pain, Abdomen/GI: Negative for abdominal pain, nausea, vomiting, diarrhea, and constipation, MS/Extremity: Negative for injury and deformity, Neuro: Negative for headache, weakness, numbness, tingling, and seizure. 09:15 Skin: Positive for erythema, dry skin. Exam: 09:15 Constitutional: This is a well developed, well nourished patient who is awake, alert, kb and in no acute distress. Head/Face: Normocephalic, atraumatic. Chest/axilla: Normal chest wall appearance and motion. Nontender with no deformity. No lesions are appreciated. Cardiovascular: Regular rate and rhythm with a normal S1 and S2. No gallops, murmurs, or rubs. Normal PMI, no JVD. No pulse deficits. Respiratory: Lungs have equal breath sounds bilaterally, clear to auscultation and percussion. No rales, rhonchi or wheezes noted. No increased work of breathing, no retractions or nasal flaring. Abdomen/GI: Soft, non-tender, with normal bowel sounds. No distension or tympany. No guarding or rebound. No evidence of tenderness throughout. MS/ Extremity: Pulses equal, no cyanosis. Neurovascular intact. Full, normal range of motion. Neuro: Awake and alert, GCS 15, oriented to person, place, time, and situation. Cranial nerves II-XII grossly intact. Motor strength 5/5 in all extremities. Sensory grossly intact. Cerebellar exam normal. Normal gait. 09:15 Skin: rash a moderate rash is noted, rash can be described as erythematous, on the left hand and right hand. Vital Signs: 09:05 BP 155 / 94; Pulse 86; Resp 17; Temp 98.7; Pulse Ox 96% ; Weight 81.65 kg; Height 5 ft. jl7 2 in. (157.48 cm); Pain 10/10; 09:30 BP 130 / 87; Pulse 82; Resp 15; Pulse Ox 96% ; jl7 09:05 Body Mass Index 32.92 (81.65 kg, 157.48 cm) jl7 MDM: 09:06 Patient medically screened. kb 09:11 Data reviewed: vital signs, nurses notes. Data interpreted: Pulse oximetry: on room air kb is 100 %. Interpretation: normal. Counseling: I had a detailed discussion with the patient and/or guardian regarding: the historical points, exam findings, and any diagnostic results supporting the discharge/admit diagnosis, the need for outpatient follow up, a supervisor [employer], to return to the emergency department if symptoms worsen or persist or if there are any questions or concerns that arise at home. ED course: Pt has supervisor [employer] appointment on 01/07/20.. Administered Medications: 09:23 Drug: TORadol 30 mg Route: IM; Site: left deltoid; jl7 09:44 Follow up: Response: No adverse reaction jl7 09:25 Drug: Decadron 10 mg Route: IM; Site: left vastus lateralis; jl7 09:44 Follow up: Response: No adverse reaction jl7 Disposition: 09:54 Co-signature as Attending Physician, Gomez Castillo MD I agree with the assessment and kdr plan of care. Disposition: 12/23/19 09:17 Discharged to Home. Impression: Rash and other nonspecific skin eruption. - Condition is Stable. - Discharge Instructions: Rash, Mldu-[id number], Contact Dermatitis, [id number]. - Prescriptions for Prednisone 20 mg Oral Tablet - take 1 tablet by ORAL route once daily for 5 days; 5 tablet. Ibuprofen 800 mg Oral Tablet - take 1 tablet by ORAL route every 8 hours As needed take with food; 30 tablet. - Medication Reconciliation Form, Thank You Letter, Antibiotic Education, Prescription Opioid Use form. - Follow up: Emergency Department; When: As needed; Reason: Worsening of condition. Follow up: Private Physician; When: 2 - 3 days; Reason: Recheck today's complaints, Continuance of care, Re-evaluation by your physician. Signatures: Tigist Hurt, PHYSICAL THERAPY INSTRUCTOR-C ADIS-Gomez Tobias MD MD kdr Leal, Jahala, RN RN jl7 Corrections: (The following items were deleted from the chart) 09:15 09:12 Pt reports her hands started becoming red, dry and painful 3 days ago. States kb some areas started cracking yesterday. Reports this has happened all of her life and the supervisor [employer] told her it was due to stress. Normally takes prednisone when this happens and it clears up. "I don't want to be on prednisone my whole life so I'm going to a new supervisor [employer] [facility] in [place], but I need a shot of prednisone or something now to help the pain." . kb 09:45 09:17 12/23/2019 09:17 Discharged to Home. Impression: Rash and other nonspecific skin jl7 eruption. Condition is Stable. Forms are Medication Reconciliation Form, Thank You Letter, Antibiotic Education, Prescription Opioid Use. Follow up: Emergency Department; When: As needed; Reason: Worsening of condition. Follow up: Private Physician; When: 2 - 3 days; Reason: Recheck today's complaints, Continuance of care, Re-evaluation by your physician. kb
[2019-12-23] MEDS ORDERED: KETOROLAC 30 MG/ML INJ ONE (09:35)
[2019-12-23] MEDS ORDERED: dexAMETHasone 4 MG/ML VIAL ONE (09:35)
--- NOTE | 2019-12-23 09:46 | ER ---
Nurse's Notes [facility] Name: Vicky Walker Age: 59 yrs Sex: Female : 1960 Arrival Date: 12/23/2019 Time: 09:02 Bed 5 Private MD: Diagnosis: Rash and other nonspecific skin eruption Presentation: 12/22 09:05 Chief complaint: Patient states: Rash to bilateral hands, right hand painful. jl7 09:05 Coronavirus screen: Client denies travel out of the [place] in the last 14 days. At this jl7 time, the client does not indicate any symptoms associated with coronavirus-19. Ebola Screen: No symptoms or risks identified at this time. Initial Sepsis Screen: Does the patient meet any 2 criteria? No. Patient's initial sepsis screen is negative. Does the patient have a suspected source of infection? No. Patient's initial sepsis screen is negative. Risk Assessment: Do you want to hurt yourself or someone else? Patient reports no desire to harm self or others. Onset of symptoms is unknown. Care prior to arrival: None. 09:05 Method Of Arrival: Ambulatory jl7 09:05 Acuity: PIYUSH 4 jl7 Triage Assessment: 09:05 General: Appears in no apparent distress. uncomfortable, Behavior is cooperative, jl7 anxious, crying. Pain: Complains of pain in left hand and right hand Pain currently is 10 out of 10 on a pain scale. Neuro: Level of Consciousness is awake, alert, obeys commands, Oriented to person, place, time, situation. Cardiovascular: Patient's skin is warm and dry. Respiratory: Airway is patent Respiratory effort is even, unlabored, Respiratory pattern is regular, symmetrical. Derm: Skin is pink, warm \T\ dry. Rash noted that is on right hand and left hand. Historical: - Allergies: 09:34 PENICILLINS; jl7 - PMHx: 09:34 allergies; Anxiety; Chronic pain; GERD; Hypertension; psoriasis; jl7 - PSHx: 09:34 Hysterectomy; Cholecystectomy; jl7 - Immunization history:: Adult Immunizations unknown. - Social history:: Smoking status: Patient reports the use of cigarette tobacco products, smokes one-half pack cigarettes per day. Screenin:35 Abuse screen: Denies threats or abuse. Denies injuries from another. Nutritional jl7 screening: No deficits noted. Tuberculosis screening: No symptoms or risk factors identified. Fall Risk None identified. Assessment: 09:35 General: See triage assessment. jl7 Vital Signs: 09:05 BP 155 / 94; Pulse 86; Resp 17; Temp 98.7; Pulse Ox 96% ; Weight 81.65 kg; Height 5 ft. jl7 2 in. (157.48 cm); Pain 10/10; 09:30 BP 130 / 87; Pulse 82; Resp 15; Pulse Ox 96% ; jl7 09:05 Body Mass Index 32.92 (81.65 kg, 157.48 cm) jl7 ED Course: 09:02 Patient arrived in ED. ag5 09:05 Arm band placed on right wrist. jl7 09:06 Tigist Hurt FNP-C [facility]. kb 09:06 Gomez Castillo MD is Attending Physician. kb 09:07 Malvin Mccann RN is Primary Nurse. jl7 09:33 Triage completed. jl7 09:35 Patient has correct armband on for positive identification. Bed in low position. Call jl7 light in reach. Side rails up X 1. 09:35 No provider procedures requiring assistance completed. Patient did not have IV access jl7 during this emergency room visit. Administered Medications: 09:23 Drug: TORadol 30 mg Route: IM; Site: left deltoid; jl7 09:44 Follow up: Response: No adverse reaction jl7 09:25 Drug: Decadron 10 mg Route: IM; Site: left vastus lateralis; jl7 09:44 Follow up: Response: No adverse reaction jl7 Outcome: 09:17 Discharge ordered by . kb 09:35 Discharged to home ambulatory. jl7 09:35 Condition: stable 09:35 Discharge instructions given to patient, Instructed on discharge instructions, follow up and referral plans. medication usage, Demonstrated understanding of instructions, follow-up care, medications, Prescriptions given X 2. 09:45 Patient left the ED. jl7 Signatures: Tigist Hurt FNP-C FNP-Malvin Elmore, RN RN jl7 Xin Garcia ag5
[2019-12-23 09:57] VITALS: TEMP 98.7; O2SAT 96
[2019-12-23 09:59] VITALS: BP 130/87
--- OUTSIDE RECORDS SUMMARY | 2019-12-23 11:32 | XMS REPORT | Continuity of Care Document ---
:1960 Author Organization [facility] t Address [address] [place] [place] [address] Care Team Providers Name Role Phone ADAM ANTUNEZ Primary Care Physician Hazel SANCHEZ, EClif Attending Clinician Aleksander GARAY Attending Clinician Unavailable Payers Payer Name Policy Type Policy Effective Date Expiration Date Sour ce Number MEDICAREMEDICARE PART [id number] 2011 Josias George AND 00:00:00 Jain [id number] 2011 [place]x [id number] 2011 Fatoumata dominguez -Present 00:00:00 [place] Advance Directives Directive Decision Effective Date Termination Date Comments Sour ce Yes N/A [facility]RISTUS - Luis per [facility] angel Problems Condition Condition Condition Status Onset Resolution Last Treating Co mments Source Name Details Category Date Date Treatment Clinician Date Fracture, Fracture, Disease Active Ezekiel Melo, 2-24 [facility] left, left, 00:00: st closed closed 00 Left Problem CHRISTU against S - medical [facility] Otitic Problem [facility]STU barotrauma S - [facility] Rhinitis Problem [facility] S - [facility] Allergies, Adverse Reactions, Alerts Allergy Allergy Status Severity Reaction(s) Onset Inactive Treating Comm ents Source Name Type Date Date Clinician Penicill Allergy Active 2018-03 CHRISTU in to 2-25 S - substanc 00:00: Wise e [facility] Penicill Propensi Active Rash [place] ins ty to 10-30 [facility] adverse 00:00: st reaction 00 s to drug PENICI Allergy Active CHRISTU LLIN AND to 5-24 S - DERIVATI substanc 00:00: Wise VES* e [facility] Social History Social Habit Start Date Stop Date Quantity Comments Source History of tobacco Cigarette Smoker [place] use Jain Sex Assigned At [place] Jain Cigarettes smoked 2019-05-25 2019-05-25 [place] current (pack per 00:00:00 00:00:00 Method) - Reported Cigarette 2019-05-25 2019-05-25 [place] pack-years 00:00:00 00:00:00 Jain Tobacco use and 2019-05-25 2019-05-25 Never used [place] exposure 00:00:00 00:00:00 Jain Alcohol intake 2019-05-25 2019-05-25 Ex-drinker [place] 00:00:00 00:00:00 (finding) Jain Smoking Status Start Date Stop Date Source Current every day smoker 2019-05-25 00:00:00 Fatoumata dominguez Jain Current Light tobacco 2019-02-24 18:35:00 [facility] Medications Ordered Filled Start Stop Current Ordering Indication Dosage Frequency Signature Comments Components Source Medication Medication Date Date Medication? Clinician (SIG) Name Name celecoxib 2020- No Closed TAKE 1 Fatoumata dominguez (CeleBREX) 06-30 07-29 Colles' CAPSULE(10 Methodi 100 MG 00:00: 23:59 fracture of 0 MG) BY st capsule 00 :00 left MOUTH radius, TWICE initial DAILY encounter celecoxib 2020- No Closed 100mg Q.5D Take 1 Josias leonard (CeleBREX) 06-30 04-30 Colles' capsule Me thodi 100 MG 00:00: 00:00 fracture of ([address] capsule 00 :00 left total) by radius, mouth 2 initial (two) encounter times a day for 30 days. predniSONE Yes prednisone [place] (DELTASONE) 3-24 10 mg [facility] 10 mg 13:54: tablet st tablet 49 lisinopriL Yes lisinopril H [place] (PRINIVIL) 3-24 10 mg [facility] 10 mg 13:54: tablet st tablet 49 ipratropium 2019-0 Yes ipratropiu Rayo -albuteroL 3-24 m 0.5 [facility] (DUO-NEB) 13:54: mg-albuter st 0.5-2.5 49 ol 3 mg mg/3 mL (2.5 mg nebulizer base)/3 mL nebulizati on soln diclofenac 2019-0 Yes diclofenac [place] (VOLTAREN) 3-24 sodium 75 Meth zeyad 75 MG EC 13:54: mg st tablet 49 tablet,del ayed release busPIRone 2019-0 Yes buspirone Fatoumata storosa (BUSPAR) 10 3-24 10 mg Methodi MG tablet 13:54: tablet st 49 budesonide- 2019-0 Yes Symbicort [place] formoteroL 3-24 160 [facility] (Symbicort) 13:54: mcg-4.5 st 160-4.5 49 mcg/actuat mcg/actuati ion HFA on inhaler aerosol inhaler atorvastati 0 Yes 20mg Take 20 mg Rayo n (LIPITOR) 3-24 by mouth. Met hodi 20 MG 13:54: st tablet 49 aspirin 81 2019-0 Yes 81mg Chew 81 [place] mg chewable 3-24 mg. Methodi tablet 13:54: st 49 gabapentin 2019-0 Yes gabapentin H [place] (NEURONTIN) 3-24 300 mg Method i 300 mg 13:54: capsule st capsule 49 ALPRAZolam 2019-0 Yes alprazolam H [place] (XANAX) 3-24 0.25 mg Methodi 0.25 MG 13:54: tablet st tablet 49 amLODIPine 2019-0 Yes amlodipine H [place] (NORVASC) 3-24 10 mg [facility] 10 mg 13:54: tablet st tablet 49 albuterol 2019-0 Yes albuterol Fatoumata dominguez (PROAIR 3-24 sulfate Methodi HFA) 90 13:54: HFA 90 st mcg/actuati 49 mcg/actuat on inhaler ion aerosol inhaler meloxicam 2019-0 2020- No 15mg QD Take 1 [place] (Mobic) 15 3-24 04-30 tablet (15 Me thodi mg tablet 00:00: 00:00 mg total) st 00 :00 by mouth daily for 120 days. Take with food Methylpredn 2018-1 No 1 KEN U isolone 04-27 S - (Medrol 18:52: Wise Dose-Pack) 00 Memoria 21 Tab/Dspk l TAB Hospita l Vital Signs Vital Name Observation Time Observation Value Comments Source Body Temperature 2019-02-24 19:15:00 98.0 [degF[facility] Heart Rate 2019-02-24 19:15:00 94 /min [facility] Respiratory rate 2019-02-24 19:15:00 20 /min [facility] BP Systolic 2019-02-24 19:15:00 134 mm[Hg] [facility] BP Diastolic 2019-02-24 19:15:00 71 mm[Hg] [facility] Heart Rate 2019-02-24 18:32:00 94 /min [facility] Respiratory rate 2019-02-24 18:32:00 20 /min [facility] BP Systolic 2019-02-24 18:32:00 134 mm[Hg] [facility] BP Diastolic 2019-02-24 18:32:00 71 mm[Hg] [facility] Weight 2019-02-24 18:32:00 180 [lb_av] [facility] BMI (Body Mass Index) 2019-02-24 18:32:00 32.9 kg/m2 [facility] Procedures Procedure Date / Time Performed Performing Clinician Sourc e XR WRIST 3+ VW LEFT 2019-05-25 13:29:28 Chin Oliva AR CLOSED RX DIST 2019-05-25 13:00:00 Chin Oliva RAD/ULNA FX XR UPPER EXTREMITY 2019-04-26 18:50:00 Chin Oliva M ethzeyadst EXTERNAL STUDY Plan of Care Planned Activity Planned Date Details Comments Source Future Scheduled Test 2019-10-02 INFLUENZA VACCINE [place] Jain 00:00:00 [code = INFLUENZA VACCINE] Future Scheduled Test 2010 BREAST CANCER [place] Jain 00:00:00 SCREENING [code = BREAST CANCER SCREENING] Future Scheduled Test 2010 COLONOSCOPY SCREENING [place] Jain 00:00:00 [code = COLONOSCOPY SCREENING] Future Scheduled Test 2010 SHINGLES VACCINES (#1) [place] Jain 00:00:00 [code = SHINGLES VACCINES (#1)] Future Scheduled Test 1981 Screening for [place] Jain 00:00:00 malignant neoplasm of cervix (procedure) [code = 300003505] Future Scheduled Test Streptococcus pyogenes ESPERANZA Morales culture [code = [facility] 30768-2] Goal Patient referral [code RE Morales = [id number] ] [facility] Hospit al Instructions Eustachian Tube CHRISTUS - J asper Problems [facility] Hospit [facility] Instructions Eustachian Tube CHRISTUS - J asper Problems (DC) [facility] Hospi angel Encounters Start End Encounter Admission Attending Care Care Encounter Source Date/Time Date/Time Type Type Clinicians Facility Department ID 2019-05-25 2019-05-25 Outpatient [facility], [facility] [id number] [place] 00:00:00 00:00:[address] 2019-05-25 2019-05-25 Outpatient [facility], [facility] [id number] [place] 00:00:00 00:00:[address] 2019-05-25 2019-05-25 Outpatient [facility], [facility] [id number] [place] 00:00:00 00:00:[address] 2019-05-25 2019-05-25 Outpatient [facility], [facility] [id number] [place] 00:00:00 00:00:[address] 2019-02-24 2019-02-24 Departed GETACHEW Morales [id number] [facility] 18:14:00 19:15:[address] [facility] Results Test Test Test Results Result Source Description Time Comments Comments XR Upper 2019-05- This exam was not acquired [place] [address] at a Jain facility [facility] External Study 08:10:31 and has not been interpreted by a Jain Provider. The exam was imported into our imaging system. Orthopedic 2019-05- Chin Oliva MD Rayo Injury 24 05/25/2019 1:58 Jain Treatment 13:00:00 PMOrthopedic Injury Treatment Date/Time: 05/25/2019 1:56 PM Performed by: Chin Oliva MD Authorized by: Chin Oliva MD Consent given by: patientTimeout: Immediately prior to procedure a time out was called to verify the correct patient, procedure, equipment, support engineer and site/side marked as requiredInjuryLocation details: left wristFracture type: distal radial fracture Pre-procedure assessmentDistal perfusion: normal Distal sensation: normal ProcedureManipulation performed? no manipulation performedAnesthetics: local anesthesia not usedImmobilization: castCast type: short armSupplies used: cotton paddingPost-procedure assessmentDistal perfusion: normalDistal sensation: normal Throat Streptococcus pyogenes antigen detection 2019-02-24 1 8:38:00 Test Item Value Reference Range Interpretation Comme nts Group A Streptococcus Screen (test code = 89389-4) Negative [facility]
--- OUTSIDE RECORDS SUMMARY | 2019-12-23 11:32 | XMS REPORT | Clinical Summary ---
:1960 Author Organization [facility] Address [address] [place] [address] Care Team Providers Name Role Phone Shree Torres MD Primary Care Provider Allergies Active Allergy Reactions Severity Noted Date Comments Penicillins Rash Low 10/30/2014 Medications Medication Sig Dispensed Refills Start Date End Date Status predniSONE prednisone 10 mg 0 Ac tive (DELTASONE) 10 mg tablet tablet lisinopriL lisinopril 10 mg 0 Ac tive (PRINIVIL) 10 mg tablet tablet ipratropium-albut ipratropium 0.5 0 Active [place] (DUO-NEB) mg-albuterol 3 mg 0.5-2.5 mg/3 mL (2.5 mg base)/3 nebulizer mL nebulization soln diclofenac diclofenac sodium 0 A ctive (VOLTAREN) 75 MG 75 mg EC tablet tablet,delayed release busPIRone buspirone 10 mg 0 Acti ve (BUSPAR) 10 MG tablet tablet budesonide-formot Symbicort 160 0 Active [place] (Symbicort) mcg-4.5 160-4.5 mcg/actuation HFA mcg/actuation aerosol inhaler inhaler atorvastatin Take 20 mg by 0 Act desire (LIPITOR) 20 MG mouth. tablet aspirin 81 mg Chew 81 mg. 0 Acti ve chewable tablet gabapentin gabapentin 300 mg 0 A ctive (NEURONTIN) 300 capsule mg capsule ALPRAZolam alprazolam 0.25 0 Act desire (XANAX) 0.25 MG mg tablet tablet amLODIPine amlodipine 10 mg 0 Ac tive (NORVASC) 10 mg tablet tablet albuterol (PROAIR albuterol sulfate 0 Active HFA) 90 HFA 90 mcg/actuation mcg/actuation inhaler aerosol inhaler meloxicam (Mobic) Take 1 tablet (15 30 tablet 3 05/25/2019 Discontinued 15 mg tablet mg total) by 20 mouth daily for 120 days. Take with food celecoxib Take 1 capsule 60 capsule 0 07/01/2019 07/01/19 Dis continued (CeleBREX) 100 MG (100 mg total) by 20 capsuleIndication mouth 2 (two) s: Closed Colles' times a day for fracture of left 30 days. radius, initial encounter celecoxib TAKE 1 180 capsule 0 07/01/2019 09/29/19 (CeleBREX) 100 MG CAPSULE(100 MG) 20 capsuleIndication BY MOUTH TWICE s: Closed Colles' DAILY fracture of left radius, initial encounter Active Problems Problem Noted Date Fracture, Colles, left, closed 04/26/2019 Encounters Date Type Specialty Care Team Description 07/01/2019 Refill Orthopedic Surgery Chin Oliva Closed Colles' MD fracture of lef t radius, initial encounter 07/01/2019 Travel 07/01/2019 Telephone Orthopedic Surgery Maribel Armijo RN fracture of lef t radius, initial encounter (Prim [place] Dx) 06/29/2019 Travel 05/25/2019 Hospital Encounter Radiology Chin Oliva MD 05/25/2019 Office Visit Orthopedic Surgery Chin Oliva Closed Colles' MD fracture of lef t radius, initial encounter (Prim [place] Dx) 05/24/2019 Travel after 12/22/2018 Surgical History Surgery Date Site/Laterality Comments ABDOMINAL SURGERY 2004 hsyterectomy Medical History Medical History Date Comments Arthritis [place] COPD (chronic obstructive pulmonary disease) (HCC) [place] GERD (gastroesophageal reflux disease) [place] Osteoporosis [place] Social History Tobacco Use Types Packs/Day Years Used Date Current Every Day Smoker Cigarettes 0.25 30 Smokeless Tobacco: Never Used Alcohol Use Drinks/Week oz/Week Comments Not Currently 0 Glasses of wine 0.0 0 Cans of beer 0 Shots of liquor 0 Standard drinks or equivalent Sex Assigned at Date Recorded Not on file Last Filed Vital Signs Not on file Plan of Treatment Health Maintenance Due Date Last Done Comments CERVICAL CANCER SCREENING 1981 BREAST CANCER SCREENING 2010 COLONOSCOPY SCREENING 2010 SHINGLES VACCINES (#1) 2010 INFLUENZA VACCINE 10/02/2019 Procedures Procedure Name Priority Date/Time Associated Diagnosis Comme nts XR WRIST 3+ VW LEFT Routine 05/25/2019 1:29 PM Closed fractur e of Results for this CDT left wrist, initial procedur e are in encounter the results section. [place] CLOSED RX DIST Routine 05/25/2019 1:00 PM Closed Colles' R esults for this RAD/ULNA FX CDT fracture of left procedure a re in radius, initial the results encounter section. 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 after 12/22/2018 Results XR Wrist 3+ Vw Left (05/25/2019 1:29 PM CDT) Specimen Narrative Performed At This result has an attachment that is no t available. PA, lateral, oblique x-rays are done of the left wrist demonstrating a HM RADIANT transverse fracture of the left distal radius in satis factory alignment with some mild widening at the scapholunate interval.. Performing Organization Address [facility] Phon e Number HM RADIANT [address] [place] [address] Orthopedic Injury Treatment (05/25/2019 1:00 PM CDT) Narrative Performed At Chin Oliva MD 05/25/2019 1:58 PM Orthopedic Injury Treatment Date/Time: 05/25/2019 1:56 PM Performed by: Chin Oliva MD Authorized by: Chin Oliva MD Consent given by: patient Timeout: Immediately prior to procedure a time out was called to verify the correct patient, procedure, equipmen t, user support analyst and site/side marked as required Injury Location details: left wrist Fracture type: distal radial fracture Pre-procedure assessment Distal perfusion: normal Distal sensation: normal Procedure Manipulation performed? no manipulation performed Anesthetics: local anesthesia not used Immobilization: cast Cast type: short arm Supplies used: cotton padding Post-procedure assessment Distal perfusion: normal Distal sensation: normal XR Upper Extremity External Study (04/26/2019 6:50 PM MARINE RIGGER) Specimen Narrative Performed At This exam was not acquired at a Methodis t facility and has not been HM RADIANT interpreted by a Yarsani Provider. T he exam was imported into our imaging system. Performing Organization Address [facility] Phon e Number HM RADIANT [address] [place] [address] after 12/22/2018 Insurance Payer Benefit Plan / Subscriber ID Effective Dates Phone Addre ss Type Group MEDICARE MEDICARE PART A [id number] 2011-Present [place] Medicare AND B MEDICAID MEDICAID [id number] 2011-Present [place] dicaid Advance Directives For more information, please contact: [phone] Type Date Recorded Patient Chief Recordist Explanati on Advance Directives, Living Will and Medical Power of Hardener Helper
== END 2019-12-23 09:45 | disposition home or self-care (01) ==
LOC: ER 09:00
DX: R21 Rash and other nonspecific skin eruption (principal); I10 Essential (primary) hypertension; F17.210 Nicotine dependence, cigarettes, uncomplicated; Z88.0 Allergy status to penicillin
CPT/HCPCS: 96372; 99283; J1100

== ENCOUNTER 2020-06-18 10:24 | Emergency (ER) | payer OTHER ==
--- OUTSIDE RECORDS SUMMARY | 2020-06-18 10:28 | XMS REPORT | Continuity of Care Document ---
:1960 Author Organization [facility] t Address [address] [place] [address] Care Team Providers Name Role Phone ADAM ANTUNEZ Primary Care Physician Doctor Unassigned, Name Attending Clinician Unavailable Jones ARCEO Attending Clinician Stella Oliva MD Attending Clinician Aleksander GARAY Attending Clinician Unavailable Payers Payer Name Policy Type Policy Effective Date Expiration Date Sour ce Number MEDICAREMEDICARE PART [id number] 2011 Josias George AND 00:00:00 [place] [id number] 2011 [place] [id number] 2011 Fatoumata dominguez [facility] Advance Directives Directive Decision Effective Date Termination Date Comments Sour ce Yes N/A CHRIST - Luis per [facility] Problems Condition Condition Condition Status Onset Resolution Last Treating Co mments Source Name Details Category Date Date Treatment Clinician Date Fracture, Fracture, Disease Active Ezekiel Melo, 2-24 [facility] left, left, 00:00: st closed closed 00 Left Problem CHRISTU against S - medical [place] [facility] Otitic Problem CHRISTU barotrauma S - [place] [facility] Rhinitis Problem CHRISTU S - [place] [facility] Allergies, Adverse Reactions, Alerts Allergy Allergy Status Severity Reaction(s) Onset Inactive Treating Comm ents Source Name Type Date Date Clinician Penicill Allergy Active 2018-03 CHRISTU in to 2- S - substanc 00:00: [place] e [facility] Penicill Propensi Active Rash [place] ins ty to 10-30 Methodi adverse 00:00: st reaction 00 s to drug PENICI Allergy Active CHRISTU LLIN AND to 07-24 S - DERIVATI substanc 00:00: [place] VES* e [facility] Social History Social Habit Start Date Stop Date Quantity Comments Source History of tobacco Cigarette Smoker [place] use [facility] Cigarette 2019-05-25 2019-05-25 [place] pack-years 00:00:00 00:00:00 [facility] Tobacco use and 2019-05-25 2019-05-25 Never used [place] exposure 00:00:00 00:00:00 [facility] Alcohol intake 2019-05-25 2019-05-25 Ex-drinker [place] 00:00:00 00:00:00 (finding) [facility] Cigarettes smoked 2019-05-25 2019-05-25 [place] current (pack per 00:00:00 00:00:00 Method) - Reported Sex Ass[birth year] At [birth year] [place] 00:00:00 00:00:00 [facility] Smoking Status Start Date Stop Date Source Current every day smoker 2019-05-25 00:00:00 Fatoumata dominguez [facility] Current Light tobacco 2019-02-24 18:35:00 [facility] Medications Ordered Filled Start Stop Current Ordering Indication Dosage Frequency Signature Comments Components Source Medication Medication Date Date Medication? Clinician (SIG) Name Name celecoxib 2019- No Closed TAKE 1 Fatoumata dominguez (CeleBREX) 06-30 07-29 Colles' CAPSULE(10 Methodi 100 MG 00:00: 23:59 fracture of 0 MG) BY st capsule 00 :00 left MOUTH radius, TWICE initial DAILY encounter celecoxib 2020-0 2020- No Closed 100mg Q.5D Take 1 Ho horacio (CeleBREX) 4-30 04-30 Colles' capsule Me thodi 100 MG 00:00: 00:00 fracture of ([address] capsule 00 :00 left total) by radius, mouth 2 initial (two) encounter times a day for 30 days. predniSONE 2020-0 Yes prednisone [place] (DELTASONE) 3-24 10 mg [facility] 10 mg 13:54: tablet st tablet 49 lisinopriL 2020-0 Yes lisinopril [place] (PRINIVIL) 3-24 10 mg [facility] 10 mg 13:54: tablet st tablet 49 ipratropium 2020-0 Yes ipratropiu Rayo -albuteroL 3-24 m 0.5 Methodi (DUO-NEB) 13:54: mg-albuter st 0.5-2.5 49 ol 3 mg mg/3 mL (2.5 mg nebulizer base)/3 mL nebulizati on soln diclofenac 2019-0 Yes diclofenac [place] (VOLTAREN) 3-24 sodium 75 Meth zeyad 75 MG EC 13:54: mg st tablet 49 tablet,del ayed release busPIRone 2019-0 Yes buspirone Fatoumata ston (BUSPAR) 10 3-24 10 mg Methodi MG tablet 13:54: tablet st 49 budesonide- 2019-0 Yes Symbicort [place] formoteroL 3-24 160 [facility] (Symbicort) 13:54: mcg-4.5 st 160-4.5 49 mcg/actuat mcg/actuati ion HFA on inhaler aerosol inhaler atorvastati 2019-0 Yes 20mg Take 20 mg Rayo n (LIPITOR) 3-24 by mouth. Met hodi 20 MG 13:54: st tablet 49 aspirin 81 2020-0 Yes 81mg Chew 81 [place] mg chewable 3-24 mg. Methodi tablet 13:54: st 49 gabapentin 2020-0 Yes gabapentin [place] (NEURONTIN) 3-24 300 mg Method i 300 mg 13:54: capsule st capsule 49 ALPRAZolam 2020-0 Yes alprazolam [place] (XANAX) 3-24 0.25 mg Methodi 0.25 MG 13:54: tablet st tablet 49 amLODIPine 2020-0 Yes amlodipine [place] (NORVASC) 3-24 10 mg Methodi 10 mg 13:54: tablet st tablet 49 albuterol Yes albuterol Fatoumata ston (PROAIR 3-24 sulfate Methodi HFA) 90 13:54: HFA 90 st mcg/actuati 49 mcg/actuat on inhaler ion aerosol inhaler meloxicam 2020- No 15mg QD Take 1 [place] (Mobic) 15 3-24 04-30 tablet (15 Me thodi mg tablet 00:00: 00:00 mg total) st 00 :00 by mouth daily for 120 days. Take with food Methylpredn 2018-03 No 1 KEN U isolone 2-25 S - (Medrol 18:52: [place] Dose-Pack) 00 Memoria 21 Tab/Dspk l TAB Hospita [facility] Vital Signs Vital Name Observation Time Observation Value Comments Source Body Temperature 2019-02-24 19:15:00 98.0 [degF] [facility] Heart Rate 2019-02-24 19:15:00 94 /min [facility] Respiratory rate 2019-02-24 19:15:00 20 /min [facility] al BP Systolic 2019-02-24 19:15:00 134 mm[Hg] [facility] al BP Diastolic 2019-02-24 19:15:00 71 mm[Hg] [facility] al Heart Rate 2019-02-24 18:32:00 94 /[facility] 2019-02-24 18:32:00 20 /min [facility] BP Systolic 2019-02-24 18:32:00 134 mm[Hg] [facility] al BP Diastolic 2019-02-24 18:32:00 71 mm[Hg] [facility] al Weight 2019-02-24 18:32:00 180 [lb_av] [facility] BMI (Body Mass Index) 2019-02-24 18:32:00 32.9 kg/m2 [facility] Procedures This patient has no known procedures. Plan of Care Planned Activity Planned Date Details Comments Source Future Scheduled Test 2020-10-01 [facility] 00:00:00 [code = INFLUENZA VACCINE] Future Scheduled Test 2010 BREAST CANCER [place] [facility] 00:00:00 SCREENING [code = BREAST CANCER SCREENING] Future Scheduled Test 2010 COLONOSCOPY SCREENING [place] [facility] 00:00:00 [code = COLONOSCOPY SCREENING] Future Scheduled Test 2010 SHINGLES VACCINES (#1) [place] [facility] 00:00:00 [code = SHINGLES VACCINES (#1)] Future Scheduled Test 1981 Screening for [place] [facility] 00:00:00 malignant neoplasm of cervix (procedure) [code = 471573232] Future Scheduled Test 1978 Hepatitis C screening [place] [facility] 00:00:00 (procedure) [code = 358162879] Future Scheduled Test 1976 COVID-19 VACCINE (1) [place] [facility] 00:00:00 [code = COVID-19 VACCINE (1)] Future Scheduled Test Streptococcus pyogenes ESPERANZA Morales culture [code = [facility] 97353-8] Goal Patient referral [code RE Morales = [id number] ] [facility] Instructions Eustachian Tube CHRISTUS - J asper Problems [facility] Instructions Eustachian Tube CHRISTUS - J asper Problems (DC) [facility] Encounters Start End Encounter Admission Attending Care Care Encounter Source Date/Time Date/Time Type Type Clinicians Facility Department ID 2020-03-29 2020-03-29 Orders Doctor YOLIS [id number] 00:00:00 00:00:00 Only Unassigned, [place] [id number] [place] [facility] [id number] 2020-03-11 2020-03-11 Emergency Goldman, [facility] [id number] 18:06:00 18:59:00 Nidia Mtz [id number] [place] [id number] [place] [id number] 2020-01-17 2020-01-17 Emergency Goldman, [facility] [id number] 16:55:00 19:20:00 Nidia Mtz [id number] [place] [id number] [place] [id number] 2019-05-25 2019-05-25 Outpatient SIFF, [facility] [id number] [place] 00:00:00 00:00:[address] 2019-05-25 2019-05-25 Outpatient SIFF, [facility] [id number] [place] 00:00:00 00:00:[address] 2019-05-25 2019-05-25 Outpatient SIFF, [facility] [id number] [place] 00:00:00 00:00:[address] 2019-05-25 2019-05-25 Outpatient SIFF, [facility] [id number] [place] 00:00:00 00:00:[address] 2019-02-24 2019-02-24 Departed ESPERANZA Andrew [id number] CHRISTU 18:14:00 19:15:[address] Results Test Description Test Time Test Comments Results Result Comments Source Throat Streptococcus pyogenes antigen detection 2019-02-24 1 8:38:00 Test Item Value Reference Range Interpretation Comme nts Group A Streptococcus Screen (test code = 24716-9) Negative [facility]
--- NOTE | 2020-06-18 10:59 | EDPHYS ---
Physician Documentation [facility] Name: Vicky Walker Age: 59 yrs Sex: Female : 1960 Arrival Date: 06/18/2020 Time: 10:27 Bed 2 Private MD: YAMILETH Physician Latrell Styles HPI: 06/18 11:23 This 59 yrs old Female presents to ER via Ambulatory with complaints of Ear kb Pain, Knee Pain. 11:23 The patient presents with pain. The complaints affect the right ear. Onset: The kb symptoms/episode began/occurred 5 day(s) ago. Modifying factors: The symptoms are alleviated by nothing, the symptoms are aggravated by nothing. Associated signs and symptoms: Pertinent positives: sore throat, Pertinent negatives: cough, fever, lightheadedness, nausea, rhinorrhea, sinus trouble, shortness of breath, tinnitus, vertigo, vomiting. Severity of symptoms: At their worst the symptoms were moderate in the emergency department the symptoms are unchanged. The patient has experienced a previous episode. The patient has not recently seen a physician. Pt reports right ear pain for 5 days. Called PCP on and was prescribed zithromax and an ear drop, but no relief in pain. States the pain radiates from ear to throat. Had exact same symptoms a year ago, was given antibiotics and it resolved. Also reports right knee pain that is chronic. STarted years ago, saw ortho for it and had injections that helped the pain. States the pain started flaring up again a few weeks ago so she needs to see her ortho again for injections. Denies fever, chills. . Historical: - Allergies: 10:39 PENICILLINS; aa5 10:39 Toradol; aa5 - PMHx: 10:39 allergies; Anxiety; Chronic pain; GERD; Hypertension; psoriasis; aa5 - PSHx: 10:39 Hysterectomy; Cholecystectomy; aa5 - Immunization history:: Adult Immunizations unknown. - Social history:: Smoking status: Patient reports the use of cigarette tobacco products, smokes one-half pack cigarettes per day. ROS: 11:21 Constitutional: Negative for fever, chills, and weight loss, Respiratory: Negative for kb shortness of breath, cough, wheezing, and pleuritic chest pain, Abdomen/GI: Negative for abdominal pain, nausea, vomiting, diarrhea, and constipation, Skin: Negative for injury, rash, and discoloration, Neuro: Negative for headache, weakness, numbness, tingling, and seizure. 11:21 ENT: Positive for ear pain. 11:21 MS/extremity: Positive for pain, of the right knee. Exam: 11:26 Constitutional: This is a well developed, well nourished patient who is awake, alert, kb and in no acute distress. Head/Face: Normocephalic, atraumatic. ENT: Moist Mucous membranes Neck: Trachea midline, no thyromegaly or masses palpated, and no cervical lymphadenopathy. Supple, full range of motion without nuchal rigidity, or vertebral point tenderness. No Meningismus. Respiratory: Respirations even and unlabored. No increased work of breathing, no retractions or nasal flaring. Skin: Warm, dry with normal turgor. Normal color. MS/ Extremity: Pulses equal, no cyanosis. Neurovascular intact. Full, normal range of motion. Neuro: Awake and alert, GCS 15, oriented to person, place, time, and situation. Moves all extremities. Normal gait. Vital Signs: 10:35 BP 138 / 77; Pulse 89; Resp 18 S; Temp 98.3(O); Pulse Ox 97% on R/A; aa5 MDM: 10:35 Patient medically screened. kb 11:21 Data reviewed: vital signs, nurses notes. Data interpreted: Pulse oximetry: on room air kb is 97 %. Interpretation: normal. Counseling: I had a detailed discussion with the patient and/or guardian regarding: the historical points, exam findings, and any diagnostic results supporting the discharge/admit diagnosis, the need for outpatient follow up, a family practitioner, to return to the emergency department if symptoms worsen or persist or if there are any questions or concerns that arise at home. 11:26 ED course: No signs of infection identified. No lymphadenopathy appreciated. No kb redness, swelling to throat, gums, ears. . Administered Medications: 10:48 Drug: SOLU-Medrol (methylPREDNISolone sodium succinate) 125 mg Route: IM; Site: right ca1 gluteus; 11:00 Follow up: Response: No adverse reaction ca1 11:11 Drug: [place] (HYDROcodone-acetaminophen) 10 mg-325 mg 1 tabs {Note: rass o.} Route: PO; ca1 11:11 Follow up: Response: No adverse reaction ca1 11:11 Follow up: Response: Medication administered at discharge. ca1 Disposition: 06/19 08:58 Co-signature as Attending Physician, Latrell Styles MD I agree with the assessment and martha plan of care. Disposition: 06/18/20 10:58 Discharged to Home. Impression: Otalgia, right ear, Pain in right knee. - Condition is Stable. - Discharge Instructions: Musculoskeletal Pain, Earache, Adult, Knee Pain, [id number]. - Prescriptions for Prednisone 20 mg Oral Tablet - take 1 tablet by ORAL route once daily for 5 days; 5 tablet. - Medication Reconciliation Form, Thank You Letter, Antibiotic Education, Prescription Opioid Use form. - Follow up: Emergency Department; When: As needed; Reason: Worsening of condition. Follow up: Private Physician; When: 2 - 3 days; Reason: Recheck today's complaints, Continuance of care, Re-evaluation by your physician. Signatures: Tigist Hurt, HEALTH EDUCATION AIDE-C ADIS-Latrell Hays MD MD cha Calderon, Audri, RN RN aa5 Cadence Cornelius, RN RN ca1 Corrections: (The following items were deleted from the chart) 06/18 11:11 10:58 06/18/2020 10:58 Discharged to Home. Impression: Otalgia, right ear; Pain in ca1 right knee. Condition is Stable. Forms are Medication Reconciliation Form, Thank You Letter, Antibiotic Education, Prescription Opioid Use. Follow up: Emergency Department; When: As needed; Reason: Worsening of condition. Follow up: Private Physician; When: 2 - 3 days; Reason: Recheck today's complaints, Continuance of care, Re-evaluation by your physician. kb
--- NOTE | 2020-06-18 10:59 | ER ---
Nurse's Notes [facility] Name: iVcky Walker Age: 59 yrs Sex: Female : 1960 Arrival Date: 06/18/2020 Time: 10:27 Bed 2 Private MD: Diagnosis: Otalgia, right ear;Pain in right knee Presentation: 06/18 10:34 Chief complaint: Patient states: right ear pain, pt states "my doctor put me on aa5 antibiotics and I take my last one tomorrow but they are not helping". Pt also reports chronic right knee pain, pt denies recent injury, pt states "I only have gabapentin and Ibuprofen for pain and it's not helping". 10:34 Coronavirus screen: At this time, the client does not indicate any symptoms associated aa5 with coronavirus-19. Ebola Screen: Patient negative for fever greater than or equal to 101.5 degrees Fahrenheit, and additional compatible Ebola Virus Disease symptoms. Initial Sepsis Screen: Does the patient meet any 2 criteria? No. Patient's initial sepsis screen is negative. Does the patient have a suspected source of infection? No. Patient's initial sepsis screen is negative. Risk Assessment: Do you want to hurt yourself or someone else? Patient reports no desire to harm self or others. Onset of symptoms was June 2020. 10:34 Acuity: PIYUSH 5 aa5 10:34 Method Of Arrival: Ambulatory aa5 Triage Assessment: 11:00 General: Appears. ca1 11:00 General: Behavior is. ca1 Historical: - Allergies: 10:39 PENICILLINS; aa5 10:39 Toradol; aa5 - PMHx: 10:39 allergies; Anxiety; Chronic pain; GERD; Hypertension; psoriasis; aa5 - PSHx: 10:39 Hysterectomy; Cholecystectomy; aa5 - Immunization history:: Adult Immunizations unknown. - Social history:: Smoking status: Patient reports the use of cigarette tobacco products, smokes one-half pack cigarettes per day. Screenin:35 Abuse screen: Denies threats or abuse. Denies injuries from another. Nutritional ca1 screening: No deficits noted. Tuberculosis screening: No symptoms or risk factors identified. Fall Risk None identified. Assessment: 10:35 General: Appears in no apparent distress. comfortable, Behavior is calm, cooperative, ca1 appropriate for age. Pain: Complains of pain in right ear and right knee Pain currently is 10 out of 10 on a pain scale. Neuro: Level of Consciousness is awake, alert, obeys commands, Oriented to person, place, time, Appropriate for age. EENT: Ear canal clear on right ear and left side of head. Derm: Skin is intact, is healthy with good turgor, Skin is pink, warm \\T\\ dry. Musculoskeletal: Circulation, motion, and sensation intact. Capillary refill < 3 seconds. 11:10 Reassessment: Pt states, "I have family waiting in the car to drive me home". ca1 11:11 Reassessment: Patient appears in no apparent distress at this time. Patient is alert, ca1 oriented x 3, equal unlabored respirations, skin warm/dry/pink. Vital Signs: 10:35 BP 138 / 77; Pulse 89; Resp 18 S; Temp 98.3(O); Pulse Ox 97% on R/A; aa5 ED Course: 10:27 Patient arrived in ED. as 10:33 Tigist Hurt FNP-C is [facility]. kb 10:33 Latrell Styles MD is Attending Physician. kb 10:34 Cadence Cornelius, TANISHA is Primary Nurse. ca1 10:34 Arm band placed on Patient placed in an exam room, on a stretcher. aa5 10:35 Patient has correct armband on for positive identification. Bed in low position. Call ca1 light in reach. Side rails up X 1. Pulse ox on. NIBP on. Warm blanket given. 10:38 Triage completed. aa5 11:05 No provider procedures requiring assistance completed. Patient did not have IV access ca1 during this emergency room visit. Administered Medications: 10:48 Drug: SOLU-Medrol (methylPREDNISolone sodium succinate) 125 mg Route: IM; Site: right ca1 gluteus; 11:00 Follow up: Response: No adverse reaction ca1 11:11 Drug: [place] (HYDROcodone-acetaminophen) 10 mg-325 mg 1 tabs {Note: rass o.} Route: PO; ca1 11:11 Follow up: Response: No adverse reaction ca1 11:11 Follow up: Response: Medication administered at discharge. ca1 Outcome: 10:58 Discharge ordered by . kb 11:10 Discharged to home via wheelchair. ca1 11:10 Condition: stable 11:10 Discharge instructions given to patient, Instructed on discharge instructions, follow up and referral plans. no driving heavy equipment, Demonstrated understanding of instructions, follow-up care, medications, Prescriptions given X 1. 11:11 Patient left the ED. ca1 Signatures: Tigist Hurt FNP-C FNP-Aide Lynch Audri, RN RN aa5 Cadence Cornelius RN RN ca1 Corrections: (The following items were deleted from the chart) 15:41 15:37 General: Appears ca1 ca1
[2020-06-18] MEDS ORDERED: KETOROLAC 30 MG/ML INJ ONE (11:03)
[2020-06-18] MEDS ORDERED: METHYLPREDNISOLONE 125 MG INJ ONE (11:03)
[2020-06-18 11:16] VITALS: BP 138/77; TEMP 98.3; O2SAT 97
[2020-06-18] MEDS ORDERED: HYDROCODONE/APAP 10/325 TAB ONE (11:28)
== END 2020-06-18 11:11 | disposition home or self-care (01) ==
LOC: ER 10:24
DX: H92.01 Otalgia, right ear (principal); M25.561 Pain in right knee; I10 Essential (primary) hypertension; F17.210 Nicotine dependence, cigarettes, uncomplicated; Z88.0 Allergy status to penicillin; Z88.5 Allergy status to narcotic agent
CPT/HCPCS: 96372; 99283; J2930

== ENCOUNTER 2021-02-25 15:44 | Emergency (ER) | payer OTHER ==
--- OUTSIDE RECORDS SUMMARY | 2021-02-25 15:47 | XMS REPORT | Continuity of Care Document ---
:1960 Author Organization [facility] t Address [address] [place] [place] [address] Care Team Providers Name Role Phone ADAM ANTUNEZ Primary Care Physician BASSEM, K.H. Attending Clinician Unavailable Nazia HEATH Attending Clinician Unavailable Kumar SANCHEZ, Nazia Attending Clinician Bassem SANCHEZ, K.H. Attending Clinician Doctor Unassigned, Name Attending Clinician Unavailable Jones ARCEO Attending Clinician SIFF Attending Clinician Unavailable Brain SORIA Attending Clinician Unavailable Brain SORIA Admitting Clinician Unavailable Payers Payer Name Policy Type Policy Number Effective Date Expiration Date Brain SCHMIDT [id number] 2020 PLUS CLASSIC/VALUE 00:00:00 [facility] [id number] 2016 MEDICAID 00:00:00 MEDICAID [facility] [id number] 2010 2016 00:00:00 00:00:00 Advance Directives Directive Decision Effective Date Termination Date Comments Sour ce Yes N/A [facility] Condition Condition Condition Status Onset Resolution Last Treating Co mments Source Name Details Category Date Date Treatment Clinician Date Obesity Obesity Disease Active Univers (BMI (BMI 5-05 ity of 30-39.9) 30-39.9) 00:00: [place] 00 Medical Branch Chest pain Chest pain Disease Active U nivers 5-04 ity of 00:00: [place] 00 [facility] Branch Right foot Right foot Disease Active 2015-03 U nivers pain pain 2-14 ity of 00:00: [place] 00 Medical Branch Left Problem Active [facility] against S medical Health advice Otitic Problem Inactiv KEN barotrauma e S Health Rhinitis Problem Inactiv KEN U e S Health Allergies, Adverse Reactions, Alerts Allergy Allergy Status Severity Reaction(s) Onset Inactive Treating Comm ents Source Name Type Date Date Clinician Penicill Allergy Active Unknown 2018-03 KEN U in to 2-25 S substanc 00:00: Health e 00 PENICILL Drug Active Unknown-Cmnt Un lala INS Class 8-30 ity of 00:00: [place] 00 Medical Branch Penicill Propensi Active Unknown - Uni vers ins ty to See comments 8-30 ity of adverse 00:00: [place] reaction 00 Medical s Branch PENICI Allergy Active Unknown KEN U LLIN AND to 5-24 S DERIVATI substanc 00:00: Health VES* e 00 Social History Social Habit Start Date Stop Date Quantity Comments Source History of tobacco Cigarette Smoker University of use [facility] Exposure to Not sure University of SARS-CoV-2 (event) [facility] Alcohol intake 2020-09-21 2020-09-21 0 /d University of 00:00:00 00:00:00 [facility] Cigarettes smoked 2016-07-04 2016-07-04 Univers ity of current (pack per 00:00:00 00:00:00 ) - Reported Branch Cigarette 2016-07-04 2016-07-04 University of pack-years 00:00:00 00:00:00 [facility] Tobacco use and 2016-07-04 2016-07-04 Never used Universit y of exposure 00:00:00 00:00:00 [facility] Sex Assigned At [birth year] Female [facility] Health 00:00:00 00:00:00 Smoking Status Start Date Stop Date Source Current Light tobacco 2019-02-24 18:35:00 [facility] smoker Current every day smoker 2016-07-04 00:00:00 Uni versity of [facility] Medications Ordered Filled Start Stop Current Ordering Indication Dosage Frequency Signature Comments Components Source Medication Medication Date Date Medication? Clinician (SIG) Name Name traMADoL 50 Yes 4647 50mg Take 1 Univ ers mg tablet 5-27 tablet by ity o f 00:00: mouth [place] 00 every 4 Medical (four) Branch hours as needed for Pain (scale 7-10). Indication s: acute pain traMADoL 50 Yes 4647 50mg Take 1 Univ ers mg tablet 5-27 tablet by ity o f 00:00: mouth [place] 00 every 4 Medical (four) Branch hours as needed for Pain (scale 7-10). Indication s: acute pain traMADoL 50 Yes 4647 50mg Take 1 Univ ers mg tablet 5-27 tablet by ity o f 00:00: mouth [place] 00 every 4 Medical (four) Branch hours as needed for Pain (scale 7-10). Indication s: acute pain Methylpredn 2018-03 No 1 As KEN U isolone 2-25 Directed S (Medrol 18:52: Health Dose-Pack) 00 21 Tab/Dspk TAB Methylpredn 2018-03 No 1 KEN U isolone 2-25 S - (Medrol 18:52: [place] Dose-Pack) 00 Memoria 21 Tab/Dspk l TAB Hospita l ALPRAZolam 2018-03 Yes 1mg Take 1 mg Un lala (XANAX) 1 2-13 by mouth 3 ity of mg tablet 13:41: (three) [place] [address] times Medical daily. Branch omeprazole 2018-03 Yes 40mg Take 40 mg U nivers 40 mg 2-13 by mouth ity of capsule 13:41: daily. [address] atorvastati 2018-03 Yes 20mg Take 20 mg Univers n 20 mg 2-13 by mouth ity of tablet 13:41: daily. [address] loratadine 2018-03 Yes 10mg Take 10 mg U nivers 10 mg 2-13 by mouth ity of tablet 13:41: daily. [address] aspirin 81 2018-03 Yes 81mg Take 81 mg U nivers mg chewable 2-13 by mouth ity of tablet 13:41: daily. [address] lisinopril 2018-03 Yes Take by Uni vers 10 mg 2-13 mouth ity of tablet 13:41: daily. [address] albuterol 2018-03 Yes 1{ampul Use 1 Univ ers 1.25 mg/3 2-13 e} Ampule as ity o f mL 13:41: directed [place] nebulizer 15 every 6 Medical solution (six) Branch hours as needed for Wheezing. ALPRAZolam 2018-03 Yes 1mg Take 1 mg Un lala (XANAX) 1 2-13 by mouth 3 ity of mg tablet 13:41: (three) [place] 15 times Medical daily. Branch omeprazole 2018-03 Yes 40mg Take 40 mg U nivers 40 mg 2-13 by mouth ity of capsule 13:41: daily. [address] atorvastati 2018-03 Yes 20mg Take 20 mg Univers n 20 mg 2-13 by mouth ity of tablet 13:41: daily. [address] loratadine 2018-03 Yes 10mg Take 10 mg U nivers 10 mg 2-13 by mouth ity of tablet 13:41: daily. [address] aspirin 81 2018-03 Yes 81mg Take 81 mg U nivers mg chewable 2-13 by mouth ity of tablet 13:41: daily. [address] lisinopril 2018-03 Yes Take by Uni vers 10 mg 2-13 mouth ity of tablet 13:41: daily. [address] albuterol 2018-03 Yes 1{ampul Use 1 Univ ers 1.25 mg/3 2-13 e} Ampule as ity o f mL 13:41: directed [place] nebulizer 15 every 6 Medical solution (six) Branch hours as needed for Wheezing. ALPRAZolam 2018-03 Yes 1mg Take 1 mg Un lala (XANAX) 1 2-13 by mouth 3 ity of mg tablet 13:41: (three) [place] 15 times Medical daily. Branch omeprazole 2018-03 Yes 40mg Take 40 mg U nivers 40 mg 2-13 by mouth ity of capsule 13:41: daily. [address] atorvastati 2018-03 Yes 20mg Take 20 mg Univers n 20 mg 2-13 by mouth ity of tablet 13:41: daily. [address] loratadine 2018-03 Yes 10mg Take 10 mg U nivers 10 mg 2-13 by mouth ity of tablet 13:41: daily. [address] aspirin 81 2018-03 Yes 81mg Take 81 mg U nivers mg chewable 2-13 by mouth ity of tablet 13:41: daily. [address] Branch lisinopril 2018-03 Yes Take by Uni vers 10 mg 2-13 mouth ity of tablet 13:41: daily. [address] Branch albuterol 2018-03 Yes 1{ampul Use 1 Univ ers 1.25 mg/3 2-13 e} Ampule as ity o f mL 13:41: directed [place] nebulizer 15 every 6 Medical solution (six) Branch hours as needed for Wheezing. benzonatate 2018-03 Yes [id number] 100mg Take 1 Univers 100 mg 2-11 capsule by ity of capsule 00:00: mouth 3 [place] 00 (three) Medical times Branch daily as needed for Cough. benzonatate 2018-03 Yes [id number] 100mg Take 1 Univers 100 mg 2-11 capsule by ity of capsule 00:00: mouth 3 [place] 00 (three) Medical times Branch daily as needed for Cough. benzonatate 2018-03 Yes [id number] 100mg Take 1 Univers 100 mg 2-11 capsule by ity of capsule 00:00: mouth 3 [place] 00 (three) Medical times Branch daily as needed for Cough. ZOFRAN ODT Yes 4mg Take 1 Unive rs 4 mg 7-24 tablet by ity of disintegrat 00:00: mouth [place] ing tablet 00 every 8 Medica l (eight) Branch hours as needed for Nausea and Vomiting (N/V). ZOFRAN ODT Yes 4mg Take 1 Unive rs 4 mg 7-24 tablet by ity of disintegrat 00:00: mouth [place] ing tablet 00 every 8 Medica l (eight) Branch hours as needed for Nausea and Vomiting (N/V). ZOFRAN ODT Yes 4mg Take 1 Unive rs 4 mg 7-24 tablet by ity of disintegrat 00:00: mouth [place] ing tablet 00 every 8 Medica l (eight) Branch hours as needed for Nausea and Vomiting (N/V). sod Yes 1{bottl Use 1 Univers chlor-bicar 3-18 e} Bottle in ity of b-squeez 00:00: each [place] bottle 00 nostril 2 Medical (NEILMED (two) Branch SINUS RINSE times COMPLETE) daily. Use pkdv in hot shower 1 hour before bedtime sod Yes 1{bottl Use 1 Univers chlor-bicar 3-18 e} Bottle in ity of b-squeez 00:00: each [place] bottle 00 nostril 2 Medical (NEILMED (two) Branch SINUS RINSE times COMPLETE) daily. Use pkdv in hot shower 1 hour before bedtime sod Yes 1{bottl Use 1 Univers chlor-bicar 3-18 e} Bottle in ity of b-squeez 00:00: each [place] bottle 00 nostril 2 Medical (NEILMED (two) Branch SINUS RINSE times COMPLETE) daily. Use pkdv in hot shower 1 hour before bedtime Immunizations Ordered Filled Immunization Date Status Comments [facility] e Immunization Name Name SARS-COV-2 COVID-19 2020-10-15 Completed Unive rsity of PFIZER VACCINE 00:00:00 [facility] SARS-COV-2 COVID-19 2020-10-15 Completed Unive rsity of PFIZER VACCINE 00:00:00 [facility] SARS-COV-2 COVID-19 2020-10-15 Completed Unive rsity of PFIZER VACCINE 00:00:00 [facility] SARS-COV-2 COVID-19 2020-09-22 Completed Unive rsity of PFIZER VACCINE 00:00:00 [facility] SARS-COV-2 COVID-19 2020-09-22 Completed Unive rsity of PFIZER VACCINE 00:00:00 [facility] SARS-COV-2 COVID-19 2020-09-22 Completed Unive rsity of PFIZER VACCINE 00:00:00 [facility] Vital Signs Vital Name Observation Time Observation Value Comments Source Diastolic blood 2020-09-21 20:14:00 85 mm[Hg] Unive rsity of pressure [facility] Heart rate 2020-09-21 20:14:00 90 /min [facility] acute hospital Body weight 2020-09-21 20:14:00 83.462 kg [facility] acute hospital BMI 2020-09-21 20:14:00 33.65 kg/m2 General acute hospital Oxygen saturation in 2020-09-21 20:14:00 94 /min [facility] Arterial blood by [facility] Pulse oximetry Branch Systolic blood 2020-09-21 20:14:00 135 mm[Hg] Univer sity of pressure [facility] Body Temperature 2019-02-24 19:15:00 98.0 [degF] [facility] Heart Rate 2019-02-24 19:15:00 94 /min [facility] Respiratory rate 2019-02-24 19:15:00 20 /min [facility] BP Systolic 2019-02-24 19:15:00 134 mm[Hg] [facility] BP Diastolic 2019-02-24 19:15:00 71 mm[Hg] [facility] Heart Rate 2019-02-24 18:32:00 94 /min [facility] Respiratory rate 2019-02-24 18:32:00 20 /min [facility] BP Systolic 2019-02-24 18:32:00 134 mm[Hg] [facility] Advaxis BP Diastolic 2019-02-24 18:32:00 71 mm[Hg] [facility] Weight 2019-02-24 18:32:00 180 [lb_av] [facility] Advaxis BMI (Body Mass 2019-02-24 18:32:00 32.9 kg/m2 [facility] Health Index) Procedures Procedure Date / Time Performed Performing Clinician Sourc e [place] ELECTROCARDIOGRAM, 2020-09-21 20:10:40 Shakila Luevano [facility] Plan of Care Planned Activity Planned Date Details Comments Source Future Scheduled Test Streptococcus pyogenes ESPERANZA Morales culture [code = [facility] 87263-6] Goal Patient referral [code RE Morales = [id number] ] [facility] Hospit [facility] Instructions Eustachian Tube [facility] - J asper Problems [facility] Instructions Eustachian Tube [facility] - J asper Problems (DC) [facility] Hospi angel Encounters Start End Encounter Admission Attending Care Care Encounter Source Date/Time Date/Time Type Type Clinicians Facility Department ID 2021-04-02 2021-04-02 Outpatient Issa [facility] [id number] [facility] 10:30:00 10:30:00 SHAKILA [id number] [facility] 2021-03-05 2021-03-05 Outpatient Issa [facility] [id number] [facility] 14:15:00 14:15:00 CLOVER Dupont [facility] 2021-03-05 2021-03-05 [facility] [id number] Univers 14:15:00 14:15:00 CLOVER estefania [facility] 2021-02-12 2021-02-12 Outpatient R [facility]AR [facility] [id number] Univers 13:45:00 13:45:00 CLOVER [id number] [facility] 2021-02-12 2021-02-12 [facility] [id number] Univers 13:45:00 13:45:00 CL[place] estefania [facility] 2021-02-01 2021-02-01 [facility] [id number] Univers 00:00:00 00:00:00 Clover [facility] [id number] it y of [place] [id number] Bill as CHRISTINA?BLEA [id number] [facility] [address] [facility] 2021-01-22 2021-01-22 Telephone Bassem [facility] [id number] Univers 00:00:00 00:00:00 Shakila MTZ [id number] ity of [facility] [id number] [id number] De dicut LETTY 059 [facility] 2020-09-21 2020-09-21 Office [facility] [id number] Univers 14:55:58 15:32:11 Visit Shakila MTZ [id number] ity of [facility] [id number] [id number] De dicut NAL 059 [facility] 2020-03-29 2020-03-29 Orders Doctor YOLIS [id number] 00:00:00 00:00:00 Only Unassigned, TIN [id number] [facility] [id number] [id number] 2020-03-11 2020-03-11 Emergency [facility] [id number] 18:06:00 18:59:00 Nidia Mtz [id number] [place] [id number] [place] [id number] 2020-01-17 2020-01-17 Emergency [facility] [id number] 16:55:00 19:20:00 Nidia Mtz [id number] [place] [id number] [place] [id number] 2019-05-25 2019-05-25 Outpatient SIFF, CARLOS [facility] [id number] [place] 00:00:00 00:00:[address] 2019-05-25 2019-05-25 Outpatient SIFF, CARLOS [facility] [id number] [place] 00:00:00 00:00:[address] 2019-05-25 2019-05-25 Outpatient SIFF, CARLOS [facility] [id number] [place] 00:00:00 00:00:[address] 2019-05-25 2019-05-25 Outpatient SIFF, CARLOS [facility] [id number] [place] 00:00:00 00:00:[address] 2019-02-24 2019-02-24 Departed ESPERANZA Andrew [id number] [facility] 18:14:00 19:15:[address] 2019-02-24 2019-02-24 Departed GETACHEW Morales [id number] [facility] 18:14:00 19:15:[address] 2019-02-10 2019-02-10 Emergency [facility] E[facility] [id number] Univers 18:48:57 21:06:00 MARYLOU odell [facility] Results Test Description Test Time Test Comments Results Result Comments Source Throat Streptococcus pyogenes antigen detection 2019-02-24 1 8:38:00 Test Item Value Reference Range Interpretation Comme nts Group A Streptococcus Screen (test code = 47704-0) Negative Neg atCritical [facility] hospitalThrt Streptococcus pyogenes antigen [id number] 18:38:00 Test Item Value Reference Range Interpretation Comments Group A Streptococcus Screen (test Negative code = 96123-6) [facility]
[2021-02-25] MEDS ORDERED: HYDROCODONE/APAP 7.5/325 MG TAB ONE (16:39)
[2021-02-25] MEDS ORDERED: MORPHINE 4 MG/ML SYR ONE (16:45)
--- NOTE | 2021-02-25 17:09 | ER ---
Nurse's Notes [facility] Name: Vicky Walker Age: 60 yrs Sex: Female : 1960 Arrival Date: 02/25/2021 Time: 15:46 Bed 9 Private MD: Diagnosis: Pain in right knee-chronic Presentation: 02/25 16:12 Chief complaint: Patient states: R knee pain way worse than usual for 1 day. Out of ll1 tramadol. Coronavirus screen: Vaccine status: Patient reports receiving the 2nd dose of the covid vaccine. Client denies travel out of the [place] in the last 14 days. At this time, the client does not indicate any symptoms associated with coronavirus-19. Ebola Screen: Patient denies travel to an Ebola-affected area in the 21 days before illness onset. Initial Sepsis Screen: Does the patient meet any 2 criteria? No. Patient's initial sepsis screen is negative. Does the patient have a suspected source of infection? Yes: Bone or joint infection. Risk Assessment: Do you want to hurt yourself or someone else? Patient reports no desire to harm self or others. Onset of symptoms was February 25, 2021. 16:12 Method Of Arrival: Ambulatory ll1 16:12 Acuity: PIYUSH 4 ll1 Historical: - Allergies: 16:11 PENICILLINS; ll1 16:11 Toradol; ll1 - PMHx: 16:11 allergies; Anxiety; Chronic pain; GERD; Hypertension; psoriasis; ll1 - Immunization history:: Client reports receiving the 2nd dose of the Covid vaccine. - Social history:: Smoking status: Patient reports the use of cigarette tobacco products, smokes one-half pack cigarettes per day. Screenin:31 Abuse screen: Denies threats or abuse. Nutritional screening: No deficits noted. ll3 Tuberculosis screening: No symptoms or risk factors identified. 17:12 Fall Risk None identified. ll3 Assessment: 16:31 General: Appears in no apparent distress. uncomfortable, Behavior is cooperative, ll3 agitated. Pain: Complains of pain in right knee Pain currently is 10 out of 10 on a pain scale. Neuro: Level of Consciousness is awake, alert, obeys commands, Oriented to person, place, time, situation, Speech is normal. Cardiovascular: Patient's skin is warm and dry. Respiratory: Respiratory effort is even, unlabored, Respiratory pattern is regular, symmetrical. Derm: Skin is pink, warm \T\ dry. Vital Signs: 16:12 BP 146 / 81; Pulse 86; Resp 17; Temp 97.2; Pulse Ox 99% ; Weight 79.38 kg; Height 5 ft. ll1 2 in. (157.48 cm); Pain 10/10; 16:12 Body Mass Index 32.01 (79.38 kg, 157.48 cm) ll1 ED Course: 15:46 Patient arrived in ED. mr 16:11 Arm band placed on. ll1 16:13 Triage completed. ll1 16:15 Latrell Strickland PA is PHCP. cp 16:15 Steven Judd MD is Attending Physician. cp 16:25 Tatianna Swift, TANISHA is Primary Nurse. ll3 16:31 Patient has correct armband on for positive identification. Bed in low position. Call ll3 light in reach. Side rails up X 1. 16:38 XRAY Knee RIGHT 3 view In Process Unspecified. EDMS 17:08 Pj Brandon DO is Referral Physician. cp 17:11 No provider procedures requiring assistance completed. Patient did not have IV access ll3 during this emergency room visit. Administered Medications: 16:39 Not Given (Patient Refused): Hydrocodone-Acetaminophen (7.5 mg-325 mg) 1 tabs PO once; cp RASS on ADMIN: Combtv4, Very Agttd3, Agttd2, Rstlss1, AlertClm0, Drwsy-1, Lt Sdtn-2, Mod Sdtn-3, Dp Sdtn-4, UnArsble-5 16:45 Drug: morphine 4 mg Route: IM; Site: left gluteus; ll3 17:10 Follow up: Response: No adverse reaction; Pain is decreased ll3 Outcome: 17:08 Discharge ordered by MD. cp 17:11 Condition: stable ll3 17:11 Discharge instructions given to patient, family, Instructed on discharge instructions, follow up and referral plans. Demonstrated understanding of instructions, follow-up care. 17:12 Discharged to home via wheelchair. ll3 17:17 Patient left the ED. ll3 Signatures: Dispatcher [employer] [facility] Tracy Ya mr Latrell Strickland PA Melody Mcneill cp, RN RN ll1 Tatianna Swift RN RN ll3 Corrections: (The following items were deleted from the chart) 17:17 17:11 Discharged to home ambulatory, with significant other, ll3 ll3
--- NOTE | 2021-02-25 17:09 | EDPHYS ---
Physician Documentation [facility] Name: Vicky Walker Age: 60 yrs Sex: Female : 1960 Arrival Date: 02/25/2021 Time: 15:46 Bed 9 Private MD: ED Physician Steven Judd HPI: 02/25 16:40 This 60 yrs old Female presents to ER via Ambulatory with complaints of Knee Pain. cp 16:40 The patient presents with pain, that is chronic. cp 16:40 The complaints affect the right knee. Associated signs and symptoms: Pertinent cp negatives calf tenderness, fever, swelling, warmth, injury. Patient reports history of right knee pain due to decreased cartilage. Reports ran out of prescribed Tramadol. Increased pain today. Denies injury. Missed appt with ortho recently. Historical: - Allergies: 16:11 PENICILLINS; ll1 16:11 Toradol; ll1 - PMHx: 16:11 allergies; Anxiety; Chronic pain; GERD; Hypertension; psoriasis; ll1 - Immunization history:: Client reports receiving the 2nd dose of the Covid vaccine. - Social history:: Smoking status: Patient reports the use of cigarette tobacco products, smokes one-half pack cigarettes per day. ROS: 16:45 MS/extremity: Positive for pain, of the right knee, Negative for injury or acute cp deformity, decreased range of motion. 16:45 Constitutional: Negative for body aches, chills, fever. cp 16:45 Cardiovascular: Negative for chest pain. 16:45 Respiratory: Negative for cough, shortness of breath, wheezing. 16:45 Abdomen/GI: Negative for abdominal pain, nausea, vomiting, and diarrhea. 16:45 Back: Negative for pain at rest, pain with movement. 16:45 Neuro: Negative for numbness, tingling. 16:45 All other systems are negative. Exam: 16:45 Constitutional: The patient appears in no acute distress, alert, awake, non-toxic, well cp developed, well nourished. 16:45 Head/Face: Normocephalic, atraumatic. cp 16:45 Cardiovascular: Rate: normal. 16:45 Respiratory: the patient does not display signs of respiratory distress, Respirations: normal, no use of accessory muscles, no retractions, labored breathing, is not present. 16:45 Musculoskeletal/extremity: ROM: limited passive range of motion due to pain, in the right knee, Pulses: noted to be 2+ in the right dorsalis pedis artery, Joints: the right knee displays pain at rest, painful range of motion, tenderness along medial joint line. 16:45 Skin: cellulitis, is not appreciated, no rash present. Vital Signs: 16:12 BP 146 / 81; Pulse 86; Resp 17; Temp 97.2; Pulse Ox 99% ; Weight 79.38 kg; Height 5 ft. ll1 2 in. (157.48 cm); Pain 10/10; 16:12 Body Mass Index 32.01 (79.38 kg, 157.48 cm) ll1 MDM: 16:23 Patient medically screened. cp 16:45 Differential diagnosis: closed fracture, tendonitis, septic joint. cp 17:05 Data reviewed: vital signs, nurses notes, radiologic studies, plain films. cp 17:05 Test interpretation: by ED physician or midlevel provider: plain radiologic studies. cp Counseling: I had a detailed discussion with the patient and/or guardian regarding: the historical points, exam findings, and any diagnostic results supporting the discharge/admit diagnosis, radiology results, the need for outpatient follow up, for definitive care, a orthopedic surgeon, to return to the emergency department if symptoms worsen or persist or if there are any questions or concerns that arise at home. Response to treatment: the patient's symptoms have markedly improved after treatment, and as a result, I will discharge patient. 02/25 16:15 Order name: XRAY Knee RIGHT 3 view cp Administered Medications: 16:39 Not Given (Patient Refused): Hydrocodone-Acetaminophen (7.5 mg-325 mg) 1 tabs PO once; cp RASS on ADMIN: Combtv4, Very Agttd3, Agttd2, Rstlss1, AlertClm0, Drwsy-1, Lt Sdtn-2, Mod Sdtn-3, Dp Sdtn-4, UnArsble-5 16:45 Drug: morphine 4 mg Route: IM; Site: left gluteus; ll3 17:10 Follow up: Response: No adverse reaction; Pain is decreased ll3 Disposition: 17:15 Chart complete. cp Disposition Summary: 02/25/21 17:08 Discharge Ordered Location: Home cp Problem: chronic cp Symptoms: have improved cp Condition: Stable cp Diagnosis - Pain in right knee - chronic cp Followup: cp - With: Pj Brandon DO - When: 1 - 2 days - Reason: Recheck today's complaints Discharge Instructions: - Discharge Summary Sheet cp - Joint Pain cp Forms: - Medication Reconciliation Form cp - Thank You Letter cp - Antibiotic Education cp - Prescription Opioid Use cp Signatures: Dispatcher [employer] EDMS Latrell Strickland PA PA cp Lewis, Lynsay, RN RN ll1 Tatianna Swift RN RN ll3
[2021-02-25 17:31] VITALS: BP 146/81; TEMP 97.2; O2SAT 99
--- NOTE | 2021-02-25 17:44 | RAD REPORT ---
EXAM DESCRIPTION: RAD - Knee Right 3 View - 02/25/2021 4:38 pm CLINICAL HISTORY: PAIN COMPARISON: No comparisons FINDINGS: Moderate osteoarthritic changes involve the medial joint compartment. No acute fracture, d islocation or joint effusion.
== END 2021-02-25 17:17 | disposition home or self-care (01) ==
LOC: ER 15:44
DX: M25.561 Pain in right knee (principal); I10 Essential (primary) hypertension; F17.210 Nicotine dependence, cigarettes, uncomplicated
CPT/HCPCS: 96372; 99283

== ENCOUNTER 2021-05-22 15:31 | Emergency (ER) | payer OTHER ==
--- OUTSIDE RECORDS SUMMARY | 2021-05-22 15:35 | XMS REPORT | Continuity of Care Document ---
:1960 Author Organization [facility] t Address [address] [place] [address] Care Team Providers Name Role Phone ADAM ANTUNEZ Primary Care Physician Kumar SANCHEZ L Attending Clinician Doctor Unassigned, Name Attending Clinician Unavailable Brain BAL Attending Clinician Unavailable Nazia HEATH Attending Clinician Unavailable Jones ARCEO Attending Clinician JUDYF Attending Clinician Unavailable Payers Payer Name Policy Type Policy Number Effective Date Expiration Date S ource Advance Directives Directive Decision Effective Date Termination Date Comments Sour ce Yes N/A [facility] Condition Condition Condition Status Onset Resolution Last Treating Co mments Source Name Details Category Date Date Treatment Clinician Date Primary Primary Disease Active Overview: Univ ers osteoarthr osteoarthr 1-10 Formattin ity of itis of itis of 00:00: g of this [place] right knee right knee 00 note Me dical might be Branch different from the original. Added automatic ally from request for surgery [id number] Obesity Obesity Disease Active Univers (BMI (BMI [...] S medical Health advice Otitic Problem Inactiv RYAN barotrauma e S Health Rhinitis Problem Inactiv KEN U e S Health Allergies, Adverse Reactions, Alerts Allergy Allergy Status Severity Reaction(s) Onset Inactive Treating Comm ents Source Name Type Date Date Clinician Penicill Allergy Active Unknown 2018-03 KEN U in to 2-25 S substanc 00:00: Health e 00 Penicill Propensi Active Unknown - As a Uni vers ins ty to See comments 8 child/ ? it y of adverse 00:00: rxn [place] reaction 00 Medical s Branch PENICILL Drug Active Unknown-Cmnt Un lala INS Class 8-30 ity of 00:00: [place] 00 Medical Branch PENICI Allergy Active Unknown KEN U LLIN AND to 5-24 S DERIVATI substanc 00:00: Health VES* e 00 Social History Social Habit Start Date Stop Date Quantity Comments Source History of tobacco Cigarette Smoker University of use [facility] Exposure to Not sure University of SARS-CoV-2 (event) [facility] Alcohol intake 2021-05-10 2021-05-10 0 /d University of 00:00:00 00:00:00 [facility] Cigarettes smoked 2016-07-04 2016-07-04 Univers ity of current (pack per 00:00:00 00:00:00 [facility] ) - Reported Branch Cigarette 2016-07-04 2016-07-04 University of pack-years 00:00:00 00:00:00 [facility] Tobacco use and 2016-07-04 2016-07-04 Never used Universit y of exposure 00:00:00 00:00:00 [facility] Sex Assigned At [birth year] Female [facility] Health 00:00:00 00:00:00 Smoking Status Start Date Stop Date Source Current Light tobacco 2019-02-24 18:35:00 [facility] smoker Current every day smoker 2016-07-04 00:00:00 Uni versity of [facility] Medications Ordered Filled Start Stop Current Ordering Indication Dosage Frequency Signature Comments Components Source Medication Medication Date Date Medication? Clinician (SIG) Name Name aspirin 81 2022-0 Yes 81mg Take 81 mg U nivers mg chewable 3-10 by mouth ity of tablet 15:33: daily. [address] Branch lisinopril 0 Yes Take by Uni vers 10 mg 3-10 mouth ity of tablet 15:33: daily. [address] Branch albuterol 0 Yes 1{ampul Use 1 Univ ers 1.25 mg/3 3-10 e} Ampule as ity o f mL 15:33: directed [place] nebulizer every 6 Medical solution (six) Branch hours as needed for Wheezing. ALPRAZolam 0 Yes 1mg Take 1 mg Un lala (XANAX) 1 3-10 by mouth 3 ity of mg tablet 15:33: (three) [place] [address] times Medical daily. Branch omeprazole 0 Yes 40mg Take 40 mg U nivers 40 mg 3-10 by mouth ity of capsule 15:33: daily. [address] loratadine Yes 10mg Take 10 mg U nivers 10 mg 3-10 by mouth ity of tablet 15:33: daily. [address] aspirin 81 Yes 81mg Take 81 mg U nivers mg chewable 3-10 by mouth ity of tablet 15:33: daily. [address] lisinopril 0 Yes Take by Uni vers 10 mg 3-10 mouth ity of tablet 15:33: daily. [address] albuterol Yes 1{ampul Use 1 Univ ers 1.25 mg/3 3-10 e} Ampule as ity o f mL 15:33: directed [place] nebulizer every 6 Medical solution (six) Branch hours as needed for Wheezing. ALPRAZolam 0 Yes 1mg Take 1 mg Un lala (XANAX) 1 3-10 by mouth 3 ity of mg tablet 15:33: (three) [place] [address] times Medical daily. Branch omeprazole 0 Yes 40mg Take 40 mg U nivers 40 mg 3-10 by mouth ity of capsule 15:33: daily. [address] loratadine 0 Yes 10mg Take 10 mg U nivers 10 mg 3-10 by mouth ity of tablet 15:33: daily. [address] aspirin 81 0 Yes 81mg Take 81 mg U nivers mg chewable 3-10 by mouth ity of tablet 15:33: daily. [address] Branch lisinopril 0 Yes Take by Uni vers 10 mg 3-10 mouth ity of tablet 15:33: daily. [address] Branch albuterol 0 Yes 1{ampul Use 1 Univ ers 1.25 mg/3 3-10 e} Ampule as ity o f mL 15:33: directed [place] nebulizer every 6 Medical solution (six) Branch hours as needed for Wheezing. ALPRAZolam 0 Yes 1mg Take 1 mg Un lala (XANAX) 1 3-10 by mouth 3 ity of mg tablet 15:33: (three) [place] [address] times Medical daily. Branch omeprazole 0 Yes 40mg Take 40 mg U nivers 40 mg 3-10 by mouth ity of capsule 15:33: daily. [address] loratadine 0 Yes 10mg Take 10 mg U nivers 10 mg 3-10 by mouth ity of tablet 15:33: daily. [address] Branch diclofenac 2021-0 Yes 75mg Take 1 Unive rs 75 mg EC 2-09 tablet by ity of tablet 00:00: mouth [place] [address] (two) Medical times Branch daily with meals. diclofenac 2-0 Yes 75mg Take 1 Unive rs 75 mg EC 2-09 tablet by ity of tablet 00:00: mouth 2 [place] (two) Medical times Branch daily with meals. diclofenac 2022-0 Yes 75mg Take 1 Unive rs 75 mg EC 2-09 tablet by ity of tablet 00:00: mouth 2 [place] (two) Medical times Branch daily with meals. diclofenac 2022-0 Yes 75mg Take 1 Unive rs 75 mg EC 2-09 tablet by ity of tablet 00:00: mouth 2 [place] (two) Medical times Branch daily with meals. diclofenac 2022-0 Yes 75mg Take 1 Unive rs 75 mg EC 2-09 tablet by ity of tablet 00:00: mouth 2 [place] (two) Medical times Branch daily with meals. diclofenac 2022-0 Yes 75mg Take 1 Unive rs 75 mg EC 2-09 tablet by ity of tablet 00:00: mouth 2 [place] (two) Medical times Branch daily with meals. atorvastati 0 Yes 20mg Take 20 mg Univers n 20 mg 2-03 by mouth ity of tablet 14:05: daily. [address] atorvastati 0 Yes 20mg Take 20 mg Univers n 20 mg 2-03 by mouth ity of tablet 14:05: daily. [address] atorvastati 0 Yes 20mg Take 20 mg Univers n 20 mg 2-03 by mouth ity of tablet 14:05: daily. [address] atorvastati 0 Yes 20mg Take 20 mg Univers n 20 mg 2-03 by mouth ity of tablet 14:05: daily. [address] atorvastati 0 Yes 20mg Take 20 mg Univers n 20 mg 2-03 by mouth ity of tablet 14:05: daily. [address] atorvastati 0 Yes 20mg Take 20 mg Univers n 20 mg 2-03 by mouth ity of tablet 14:05: daily. [address] traMADoL 50 2021-0 Yes 4647 50mg Take 1 Univ ers mg tablet 1-03 tablet by ity o f 00:00: mouth [place] 00 every 4 Medical (four) Branch hours as needed for Pain (scale 7-10). Indication s: acute pain traMADoL 50 2021-0 Yes 4647 50mg Take 1 Univ ers mg tablet 1-03 tablet by ity o f 00:00: mouth [place] 00 every 4 Medical (four) Branch hours as needed for Pain (scale 7-10). Indication s: acute pain traMADoL 50 2021-0 Yes 4647 50mg Take 1 Univ ers mg tablet 1-03 tablet by ity o f 00:00: mouth [place] 00 every 4 Medical (four) Branch hours as needed for Pain (scale 7-10). Indication s: acute pain traMADoL 50 2021-0 Yes 4647 50mg Take 1 Univ ers mg tablet 1-03 tablet by ity o f 00:00: mouth [place] 00 every 4 Medical (four) Branch hours as needed for Pain (scale 7-10). Indication s: acute pain traMADoL 50 2021-0 Yes 4647 50mg Take 1 Univ ers mg tablet 1-03 tablet by ity o f 00:00: mouth [place] 00 every 4 Medical (four) Branch hours as needed for Pain (scale 7-10). Indication s: acute pain traMADoL 50 2021-0 Yes 4647 50mg Take 1 Univ ers mg tablet 1-03 tablet by ity o f 00:00: mouth [place] 00 every 4 Medical (four) Branch hours as needed for Pain (scale 7-10). Indication s: acute pain traMADoL 50 2020-0 Yes 4647 50mg Take 1 Univ ers mg tablet 5-27 tablet by ity o f 00:00: mouth [place] 00 every 4 Medical (four) Branch hours as needed for Pain (scale 7-10). Indication s: acute pain traMADoL 50 2020-0 Yes 4647 50mg Take 1 Univ ers mg tablet 5-27 tablet by ity o f 00:00: mouth [place] 00 every 4 Medical (four) Branch hours as needed for Pain (scale 7-10). Indication s: acute pain traMADoL 50 2020-0 Yes 4647 50mg Take 1 Univ ers mg tablet 5-27 tablet by ity o f 00:00: mouth [place] 00 every 4 Medical (four) Branch hours as needed for Pain (scale 7-10). Indication s: acute pain traMADoL 50 2020-0 Yes 4647 50mg Take 1 Univ ers mg tablet 5-27 tablet by ity o f 00:00: mouth [place] 00 every 4 Medical (four) Branch hours as needed for Pain (scale 7-10). Indication s: acute pain traMADoL 50 2020-0 Yes 4647 50mg Take 1 Univ ers mg tablet 5-27 tablet by ity o f 00:00: mouth [place] 00 every 4 Medical (four) Branch hours as needed for Pain (scale 7-10). Indication s: acute pain traMADoL 50 2020-0 Yes 4647 50mg Take 1 Univ ers mg tablet 5-27 tablet by ity o f 00:00: mouth [place] 00 every 4 Medical (four) Branch hours as needed for Pain (scale 7-10). Indication s: acute pain Methylpredn 2018- No 1 As KEN U isolone 2-25 Directed S (Medrol 18:52: Health Dose-Pack) 00 21 Tab/Dspk TAB Methylpredn 2019- No 1 KEN U isolone 2-25 S - (Medrol 18:52: [facility] Dose-Pack) 00 [facility] 21 Tab/Dspk l TAB [facility] ALPRAZolam 2018-03 Yes 1mg Take 1 mg Un lala (XANAX) 1 2-13 by mouth 3 ity of mg tablet 13:41: (three) [place] 15 times Medical daily. Branch omeprazole 2018-03 Yes 40mg Take 40 mg U nivers 40 mg 2-13 by mouth ity of capsule 13:41: daily. [address] loratadine 2018-03 Yes 10mg Take 10 mg U nivers 10 mg 2-13 by mouth ity of tablet 13:41: daily. [address] aspirin 81 2018-03 Yes 81mg Take 81 mg U nivers mg chewable 2-13 by mouth ity of tablet 13:41: daily. [address] lisinopril 2018-03 Yes Take by Uni vers 10 mg 2-13 mouth ity of tablet 13:41: daily. [address] albuterol 2018-03 Yes 1{ampul Use 1 Univ ers 1.25 mg/3 2-13 e} Ampule as ity o f mL 13:41: directed [place] nebulizer 15 every 6 Medical solution (six) Branch hours as needed for Wheezing. ALPRAZolam 2018-03 Yes 1mg Take 1 mg Un lala (XANAX) 1 2-13 by mouth 3 ity of mg tablet 13:41: (three) [place] [address] times Medical daily. Branch omeprazole 2018-03 Yes 40mg Take 40 mg U nivers 40 mg 2-13 by mouth ity of capsule 13:41: daily. [address] loratadine 2018-03 Yes 10mg Take 10 mg U nivers 10 mg 2-13 by mouth ity of tablet 13:41: daily. [address] aspirin 81 2018-03 Yes 81mg Take 81 mg U nivers mg chewable 2-13 by mouth ity of tablet 13:41: daily. [address] lisinopril 2018-03 Yes Take by Uni vers 10 mg 2-13 mouth ity of tablet 13:41: daily. [address] albuterol 2018-03 Yes 1{ampul Use 1 Univ ers 1.25 mg/3 2-13 e} Ampule as ity o f mL 13:41: directed [place] nebulizer 15 every 6 Medical solution (six) Branch hours as needed for Wheezing. ALPRAZolam 2018-03 Yes 1mg Take 1 mg Un lala (XANAX) 1 2-13 by mouth 3 ity of mg tablet 13:41: (three) [place] [address] times Medical daily. Branch omeprazole 2018-03 Yes 40mg Take 40 mg U nivers 40 mg 2-13 by mouth ity of capsule 13:41: daily. [address] loratadine 2018-03 Yes 10mg Take 10 mg U nivers 10 mg 2-13 by mouth ity of tablet 13:41: daily. [address] aspirin 81 2018-03 Yes 81mg Take 81 mg U nivers mg chewable 2-13 by mouth ity of tablet 13:41: daily. [address] Branch lisinopril 2018-03 Yes Take by Uni vers 10 mg 2-13 mouth ity of tablet 13:41: daily. [address] albuterol 2018-03 Yes 1{ampul Use 1 Univ ers 1.25 mg/3 2-13 e} Ampule as ity o f mL 13:41: directed [place] nebulizer 15 every 6 Medical solution (six) Branch hours as needed for Wheezing. benzonatate 2018-03 Yes [id number] 100mg Take 1 Univers 100 mg 2-11 capsule by ity of capsule 00:00: mouth 3 [place] [address] (three) Medical times Branch daily as needed for Cough. benzonatate 2018-03 Yes [id number] 100mg Take 1 Univers 100 mg 2-11 capsule by ity of capsule 00:00: mouth 3 [place] 00 (three) Medical times Branch daily as needed for Cough. benzonatate 2018-03 Yes [id number] 100mg Take 1 Univers 100 mg 2-11 capsule by ity of capsule 00:00: mouth 3 [place] 00 (three) Medical times Branch daily as needed for Cough. benzonatate 2018-03 Yes [id number] 100mg Take 1 Univers 100 mg 2-11 capsule by ity of capsule 00:00: mouth 3 [place] 00 (three) Medical times Branch daily as needed for Cough. benzonatate 2018-03 Yes [id number] 100mg Take 1 Univers 100 mg 2-11 capsule by ity of capsule 00:00: mouth 3 [place] 00 (three) Medical times Branch daily as needed for Cough. benzonatate 2018-03 Yes [id number] 100mg Take 1 Univers 100 mg 2-11 capsule by ity of capsule 00:00: mouth 3 [place] 00 (three) Medical times Branch daily as needed for Cough. ZOFRAN ODT 2017-0 Yes 4mg Take 1 Unive rs 4 mg 7-24 tablet by ity of disintegrat 00:00: mouth [place] ing tablet 00 every 8 Medica l (eight) Branch hours as needed for Nausea and Vomiting (N/V). ZOFRAN ODT 2017-0 Yes 4mg Take 1 Unive rs 4 mg 7-24 tablet by ity of disintegrat 00:00: mouth [place] ing tablet 00 every 8 Medica l (eight) Branch hours as needed for Nausea and Vomiting (N/V). ZOFRAN ODT 2017-0 Yes 4mg Take 1 Unive rs 4 mg 7-24 tablet by ity of disintegrat 00:00: mouth [place] ing tablet 00 every 8 Medica l (eight) Branch hours as needed for Nausea and Vomiting (N/V). ZOFRAN ODT 2017-0 Yes 4mg Take 1 Unive rs 4 mg 7-24 tablet by ity of disintegrat 00:00: mouth [place] ing tablet 00 every 8 Medica l (eight) Branch hours as needed for Nausea and Vomiting (N/V). ZOFRAN ODT 2017-0 Yes 4mg Take 1 Unive rs 4 mg 7-24 tablet by ity of disintegrat 00:00: mouth [place] ing tablet 00 every 8 Medica l (eight) Branch hours as needed for Nausea and Vomiting (N/V). ZOFRAN ODT 2017-0 Yes 4mg Take 1 Unive rs 4 [...] Completed Unive rsity of PFIZER VACCINE 00:00:00 [facility] SARS-COV-2 COVID-19 2020-10-15 Completed Unive rsity of PFIZER VACCINE 00:00:00 [facility] SARS-COV-2 COVID-19 2020-10-15 Completed Unive rsity of PFIZER VACCINE 00:00:00 [facility] SARS-COV-2 COVID-19 2020-10-15 Completed Unive rsity of PFIZER VACCINE 00:00:00 [facility] SARS-COV-2 COVID-19 2020-10-15 Completed Unive rsity of PFIZER VACCINE 00:00:00 [facility] SARS-COV-2 COVID-19 2020-10-15 Completed Unive rsity of PFIZER VACCINE 00:00:00 [facility] SARS-COV-2 COVID-19 2020-09-22 Completed Unive rsity of PFIZER VACCINE 00:00:00 [facility] SARS-COV-2 COVID-19 2020-09-22 Completed Unive rsity of PFIZER VACCINE 00:00:00 [facility] SARS-COV-2 COVID-19 2020-09-22 Completed Unive rsity of PFIZER VACCINE 00:00:00 [facility] SARS-COV-2 COVID-19 2020-09-22 Completed Unive rsity of PFIZER VACCINE 00:00:00 [facility] SARS-COV-2 COVID-19 2020-09-22 Completed Unive rsity of PFIZER VACCINE 00:00:00 [facility] SARS-COV-2 COVID-19 2020-09-22 Completed Unive rsity of PFIZER VACCINE 00:00:00 [facility] Vital Signs Vital Name Observation Time Observation Value Comments Source Body Temperature 2019-02-24 19:15:00 98.0 [degF] [employer] [facility] Heart Rate 2019-02-24 19:15:00 94 /min [facility] Respiratory rate 2019-02-24 19:15:00 20 /min [employer] BP Systolic 2019-02-24 19:15:00 134 mm[Hg] [facility] BP Diastolic 2019-02-24 19:15:00 71 mm[Hg] [facility] Heart Rate 2019-02-24 18:32:00 94 /min [facility] Respiratory rate 2019-02-24 18:32:00 20 /min [employer] BP Systolic 2019-02-24 18:32:00 134 mm[Hg] [facility] BP Diastolic 2019-02-24 18:32:00 71 mm[Hg] [facility] Weight 2019-02-24 18:32:00 180 [lb_av] [facility] BMI (Body Mass Index) 2019-02-24 18:32:00 32.9 kg/m2 [facility] Procedures Procedure Date / Time Performing Clinician Source Performed INSURANCE CORRESPONDENCE 2021-05-12 06:01:00 Doctor Unassigned, [facility] [place] Medical Branch Plan of Care Planned Activity Planned Date Details Comments Source Future Scheduled Test Streptococcus pyogenes ESPERANZA Morales culture [code = [facility] 17187-7] Goal Patient referral [code RE HUMA Morales = [id number] ] [facility] Eustachian T[facility] CHRISTUS - J asper Problems [facility] Eustachian Tube CHRISTUS - J asper Problems (DC) [facility] En[facility] Start End Encounter Admission Attending Care Care Encounter Source Date/Time Date/Time Type Type Clinicians Facility Department ID 2021-05-15 2021-05-15 Telephone [facility] [id number] [id number] Univers 00:00:00 00:00:00 [facility] 350.1.13.10 it y of [place] 4.2.7.2.686 Bill as CHRISTINA?BLEA [id number] Pr berta SHAW [address] [place] MEDICAL OFFICE [facility] 2021-05-12 2021-05-12 Orders Doctor YOLIS 1..840.114 [id number] Univers 00:00:00 00:00:00 Only Unassigned, [place] 350.1.13.10 ity of [place] [facility] 4.2.7.2.686 Bill as [id number] [address] 2021-05-11 2021-05-11 [facility] [id number] Univers 10:45:00 10:45:00 DANIEL [id number] ity [facility] 2021-05-11 2021-05-11 [facility]patient [facility] [id number] Univers 10:45:00 10:45:00 DANIEL ity [facility] 2021-05-11 2021-05-11 Telephone [facility] [id number] Univers 00:00:00 00:00:00 Clover Hypecal 350.1.13.10 it y of [place] 4.2.7.2.686 Bill as CHRISTINA?BLEA [id number] Pr berta SHAW [address] [facility] OFFICE [facility] 2021-05-08 2021-05-08 Telephone [facility] 1.2.840.114 [id number] Univers 00:00:00 00:00:00 [facility] 350.1.13.10 it y of [place] 4.2.7.2.686 Bill as CHRISTINA?BLEA [id number] Pr berta SHAW [address] [place] [address] OFFICE [facility] 2021-05-07 2021-05-[address] [facility] 1.2.840.114 [id number] Univers 00:00:00 00:00:00 Clover Mandujano Hypecal 350.1.13.10 it y of [place] 4.2.7.2.686 Bill as CHRISTINA?BLEA [id number] Pr berta SHAW [address] [place] [address] 2021-04-27 2021-04-27 [facility] [id number] [facility] [place] [place] 09:00:00 09:00:00 CLOVER odell [facility] 2021-04-11 2021-04-11 Telephone [facility] 1.2.840.[id number] [facility] [place] 00:00:00 00:00:00 Clover Mandujano Hypecal 350.1.13.10 [facility] 4.2.7.2.686 Bill as CHRISTINA?BLEA [id number] Pr berta [address] 2020-03-29 2020-03-29 Orders Doctor YOLIS [id number] [id number] 00:00:00 00:00:00 Only Unassigned, [place] 350.1.13.10 [place] [facility] 4.2.7.2.686 [id number] 2020-03-11 2020-03-11 Emergency [facility], [facility] 1.2.840.114 [id number] 18:06:00 18:59:00 Nidia Tabitha 350.1.13.10 [place] 4.2.7.2.686 [place] [id number] 2020-01-17 2020-01-17 Emergency Goldman, [facility] 1.2.840.114 [id number] 16:55:00 19:20:00 Nidia Mtz 350.1.13.10 [place] 4.2.7.2.686 [place] [id number] 2019-05-25 2019-05-25 Outpatient [facility] [id number] [place] 00:00:00 00:00:[address] 2019-05-25 2019-05-25 Outpatient [facility]LOS [facility] [id number] [place] 00:00:00 00:00:[address] 2019-05-25 2019-05-25 Outpatient SIFF, CARLOS [facility] [id number] [place] 00:00:00 00:00:[address] 2019-05-25 2019-05-25 Outpatient SIFF, [facility] [id number] [place] 00:00:00 00:00:[address] 2019-02-24 2019-02-24 Departed [facility] [id number] CH[facility]STU 18:14:00 19:15:[address] 2019-02-24 2019-02-24 Departed [facility] [id number] 18:14:00 19:15:[address] Health Results Test Description Test Time Test Comments Results Result Comments Source Throat Streptococcus pyogenes antigen detection 2019-02-24 1 8:38:00 Test Item Value Reference Range Interpretation Comme nts Group A Streptococcus Screen (test code = 28878-7) Negative Neg ative [facility] Streptococcus pyogenes antigen [id number] 18:38:00 Test Item Value Reference Range Interpretation Comments Group A Streptococcus Screen (test Negative code = 01559-2) [facility]
--- NOTE | 2021-05-22 17:34 | ER ---
Nurse's Notes [facility] Name: Vicky Walker Age: 60 yrs Sex: Female : 1960 Arrival Date: 05/22/2021 Time: 15:33 Bed Waiting Private MD: Diagnosis: Presentation: 05/22 15:47 Chief complaint: Patient states: pt presented to ED reporting right knee pain and that blakely there a no more cartilage. Coronavirus screen: Vaccine status: Patient reports receiving the 2nd dose of the covid vaccine. Ebola Screen: Patient denies travel to an Ebola-affected area in the 21 days before illness onset. Initial Sepsis Screen: Does the patient meet any 2 criteria? No. Patient's initial sepsis screen is negative. Does the patient have a suspected source of infection? No. Patient's initial sepsis screen is negative. Risk Assessment: Do you want to hurt yourself or someone else? Patient reports no desire to harm self or others. Onset of symptoms was May 19, 2021. 15:47 Method Of Arrival: Ambulatory blakely 15:47 Acuity: PIYUSH 3 blakely 15:47 Acuity: PIYUSH 4 blakely Historical: - Allergies: 15:49 PENICILLINS; blakely 15:49 Toradol; blakely - Home Meds: 15:49 Flonase 50 mcg/actuation Nasal spsn 1 spray 2 times per day [Active]; lisinopril 10 mg bl[place] oral tab once daily [Active]; loratadine 10 mg Oral tab 1 tab once daily [Active]; omeprazole 20 mg Oral cpDR 1 cap once daily [Active]; Xanax 1 mg Oral tab 1 tab 3 times per day [Active]; - PMHx: 15:49 allergies; Anxiety; Chronic pain; GERD; Hypertension; psoriasis; blak[place] - Immunization history:: Adult Immunizations up to date. - Social history:: Smoking status: Patient reports the use of cigarette tobacco products, denies chronic smoking, but will smoke occasionally, smokes one-half pack cigarettes per day. Screenin:51 Abuse screen: Denies threats or abuse. Denies injuries from another. Abuse screen: blakely Denies threats or abuse. Denies injuries from another. Nutritional screening: No deficits noted. Tuberculosis screening: No symptoms or risk factors identified. Fall Risk None identified. Assessment: 15:51 Pain: Complains of pain in right knee. blakely 17:14 Reassessment: pt not in lobby. Vital Signs: 15:47 BP 152 / 82; Pulse 88; Resp 22; Temp 98.1; Pulse Ox 95% on R/A; Weight 79.38 kg; Height blakely 5 ft. 2 in. (157.48 cm); 15:47 Body Mass Index 32.01 (79.38 kg, 157.48 cm) blakely ED Course: 15:33 Patient arrived in ED. as 15:49 Triage completed. blakely 15:51 Fall risk band placed. blakely 16:20 XRAY Knee RIGHT 3 view In Process Unspecified. EDMS 17:14 Patient did not have IV access during this emergency room visit. iw Administered Medications: No medications were administered Outcome: 17:31 Eloped from waiting room, post triage evaluation and consult. pt was called in the [place]ak[place] lobby no answer and nowhere to be found. Pthas left before seeing a provider 17:32 Patient left the ED. blakely Signatures: Dispatcher [employer] Aide Still Irene, RN RN Au-StagerDianne RN RN
--- NOTE | 2021-05-22 18:08 | RAD REPORT ---
EXAM DESCRIPTION: RAD - Knee Right 3 View - 05/22/2021 4:20 pm CLINICAL HISTORY: Right knee pain FINDINGS: No fracture or dislocation is seen. Moderate osteoarthritis medial compartment consisting of osteophytes joint space narrowing. Mild late ral subluxation of the tibia on the femur
[2021-05-22 19:06] VITALS: BP 152/82; TEMP 98.1; O2SAT 95
== END 2021-05-22 17:32 | disposition left against medical advice (07) ==
LOC: ER 15:31
DX: Z53.21 Procedure and treatment not carried out due to patient leaving prior to being seen by health care provider (principal)
CPT/HCPCS: 99282

== ENCOUNTER 2021-08-15 18:53 | Emergency (ER) | payer OTHER ==
--- OUTSIDE RECORDS SUMMARY | 2021-08-15 18:57 | XMS REPORT | Continuity of Care Document ---
:1960 Author Organization [facility] t Address [address] [place] [address] Care Team Providers Name Role Phone ADAM ANTUNEZ Primary Care Physician Kumar SANCHEZ L Attending Clinician Rd Attending Clinician Unavailable Doctor Unassigned, Name Attending Clinician Unavailable Brain BAL Attending Clinician Unavailable Nazia HEATH Attending Clinician Unavailable Jones ARCEO Attending Clinician SIFF Attending Clinician Unavailable Rd Admitting Clinician Unavailable Payers Payer Name Policy Type Policy Number Effective Date Expiration Date Brain kim [facility] (MEDICARE [id number] 2021 REPLACEMENT/ADVANTA 00:00:00 GE - PPO) [facility] [id number] 2016 [facility] (MEDICAID 00:00:00 HMO) Problems Condition Condition Condition Status Onset Resolution Last Treating Co mments Source Name Details Category Date Date Treatment Clinician Date Primary Primary Disease Active Overview: Univ ers osteoarthr osteoarthr 1-10 Formattin ity of itis of itis of 00:00: g of this [place] right knee right knee 00 note Me dical might be Branch different from the original. Added automatic ally from request for surgery [id number] Obesity Obesity Disease Active Univers (BMI (BMI [...] S medical Health advice Otitic Problem Inactiv CHRISTU barotrauma e S Health Rhinitis Problem Inactiv KEN U e S Health Allergies, Adverse Reactions, Alerts Allergy Allergy Status Severity Reaction(s) Onset Inactive Treating Comm ents Source Name Type Date Date Clinician Penicill Allergy Active Unknown 2018-03 KEN U in to 2-25 S substanc 00:00: Health e 00 Penicill Propensi Active Unknown - As a Uni vers ins ty to See comments 8-30 child/ ? it y of adverse 00:00: rxn [place] reaction 00 Medical s Branch Penicill Propensi Active Unknown - As a Uni vers ins ty to See comments 8-30 child/ ? it y of adverse 00:00: rxn [place] reaction 00 Medical s Branch PENICILL Drug Active Unknown-Cmnt Un lala INS Class 8-30 ity of 00:00: [place] 00 [facility] Branch PENICI Allergy Active Unknown KEN U LLIN AND to 5-24 S DERIVATI substanc 00:00: Health VES* e 00 Social History Social Habit Start Date Stop Date Quantity Comments Source History of tobacco Cigarette Smoker University of use [facility] Exposure to Not sure University of SARS-CoV-2 (event) [facility] Alcohol intake 2021-05-10 2021-05-10 0 /d University of 00:00:00 00:00:00 [facility] Cigarettes smoked 2016-07-04 2016-07-04 Univers ity of current (pack per 00:00:00 00:00:00 ) - Reported Branch Cigarette 2016-07-04 2016-07-04 University of pack-years 00:00:00 00:00:00 [facility] Tobacco use and 2016-07-04 2016-07-04 Never used Universit y of exposure 00:00:00 00:00:00 [facility] Sex Assigned At [birth year] Female [facility] 00:00:00 00:00:00 Smoking Status Start Date Stop Date Source Current Light tobacco 2019-02-24 18:35:00 [facility] smoker Current every day smoker 2016-07-04 00:00:00 Uni versity of [place] [facility] Medications Ordered Filled Start Stop Current Ordering Indication Dosage Frequency Signature Comments Components Source Medication Medication Date Date Medication? Clinician (SIG) Name Name diclofenac Yes [id number] 75mg Take 1 Univers 75 mg EC 5-23 9109 tablet by ity of tablet 00:00: mouth 2 [place] [address] (two) Medical times Branch daily with meals. aspirin 81 Yes 81mg Take 81 mg U nivers mg chewable 3-10 by mouth ity of tablet 15:33: daily. [place] [address] Medical Branch lisinopril Yes Take by Uni vers 10 mg 3-10 mouth ity of tablet 15:33: daily. [place] [address] Medical Branch albuterol Yes 1{ampul Use 1 Univ ers 1.25 mg/3 3-10 e} Ampule as ity o f mL 15:33: directed [place] nebulizer 56 every 6 Medical solution (six) Branch hours as needed for Wheezing. ALPRAZolam Yes 1mg Take 1 mg Un lala (XANAX) 1 3-10 by mouth 3 ity of mg tablet 15:33: (three) [place] [address] times Medical daily. Branch omeprazole Yes 40mg Take 40 mg U nivers 40 mg 3-10 by mouth ity of capsule 15:33: daily. [address] Branch loratadine Yes 10mg Take 10 mg U nivers 10 mg 3-10 by mouth ity of tablet 15:33: daily. [address] Branch aspirin 81 Yes 81mg Take 81 mg U nivers mg chewable 3-10 by mouth ity of tablet 15:33: daily. [address] Branch lisinopril Yes Take by Uni vers 10 mg 3-10 mouth ity of tablet 15:33: daily. [address] Branch albuterol Yes 1{ampul Use 1 Univ ers 1.25 mg/3 3-10 e} Ampule as ity o f mL 15:33: directed [place] nebulizer 56 every 6 Medical solution (six) Branch hours as needed for Wheezing. ALPRAZolam 0 Yes 1mg Take 1 mg Un lala (XANAX) 1 3-10 by mouth 3 ity of mg tablet 15:33: (three) [place] [address] times Medical daily. Branch omeprazole 0 Yes 40mg Take 40 mg U nivers 40 mg 3-10 by mouth ity of capsule 15:33: daily. [address] Branch loratadine 0 Yes 10mg Take 10 mg U nivers 10 mg 3-10 by mouth ity of tablet 15:33: daily. [address] aspirin 81 2021-0 Yes 81mg Take 81 mg U nivers mg chewable 3-10 by mouth ity of tablet 15:33: daily. [address] Branch lisinopril 0 Yes Take by Uni vers 10 mg 3-10 mouth ity of tablet 15:33: daily. [address] albuterol 0 Yes 1{ampul Use 1 Univ ers 1.25 mg/3 3-10 e} Ampule as ity o f mL 15:33: directed [place] nebulizer every 6 Medical solution (six) Branch hours as needed for Wheezing. ALPRAZolam 0 Yes 1mg Take 1 mg Un lala (XANAX) 1 3-10 by mouth 3 ity of mg tablet 15:33: (three) [place] [address] times Medical daily. Branch omeprazole 0 Yes 40mg Take 40 mg U nivers 40 mg 3-10 by mouth ity of capsule 15:33: daily. [address] loratadine 0 Yes 10mg Take 10 mg U nivers 10 mg 3-10 by mouth ity of tablet 15:33: daily. [address] aspirin 81 2021-0 Yes 81mg Take 81 mg U nivers mg chewable 3-10 by mouth ity of tablet 15:33: daily. [address] Branch lisinopril 2021-0 Yes Take by Uni vers 10 mg 3-10 mouth ity of tablet 15:33: daily. [address] albuterol 2021-0 Yes 1{ampul Use 1 Univ ers 1.25 mg/3 3-10 e} Ampule as ity o f mL 15:33: directed [place] nebulizer 56 every 6 Medical solution (six) Branch hours as needed for Wheezing. ALPRAZolam 2021-0 Yes 1mg Take 1 mg Un lala (XANAX) 1 3-10 by mouth 3 ity of mg tablet 15:33: (three) [place] [address] times Medical daily. Branch omeprazole 2021-0 Yes 40mg Take 40 mg U nivers 40 mg 3-10 by mouth ity of capsule 15:33: daily. [address] Branch loratadine 2021-0 Yes 10mg Take 10 mg U nivers 10 mg 3-10 by mouth ity of tablet 15:33: daily. [place] [address] Medical Branch diclofenac 2021-0 Yes 75mg Take 1 Unive rs 75 mg EC 2-09 tablet by ity of tablet 00:00: mouth 2 [place] [address] (two) Medical times Branch daily with meals. diclofenac 2-0 Yes 75mg Take 1 Unive rs 75 mg EC 2-09 tablet by ity of tablet 00:00: mouth 2 [place] 00 (two) Medical times Branch daily with meals. diclofenac 2-0 Yes 75mg Take 1 Unive rs 75 mg EC 2-09 tablet by ity of tablet 00:00: mouth 2 [place] 00 (two) Medical times Branch daily with meals. diclofenac 2022-0 Yes 75mg Take 1 Unive rs 75 mg EC 2-09 tablet by ity of tablet 00:00: mouth 2 [place] 00 (two) Medical times Branch daily with meals. diclofenac 2-0 Yes 75mg Take 1 Unive rs 75 mg EC 2-09 tablet by ity of tablet 00:00: mouth 2 [place] 00 (two) Medical times Branch daily with meals. diclofenac 2022-0 Yes 75mg Take 1 Unive rs 75 mg EC 2-09 tablet by ity of tablet 00:00: mouth 2 [place] 00 (two) Medical times Branch daily with meals. diclofenac 2022-0 2022- No 75mg Take 1 Univ ers 75 mg EC 2-09 05-23 tablet by ity o f tablet 00:00: 00:00 mouth 2 [place] 00 :00 (two) Medical times Branch daily with meals. atorvastati 2-0 Yes 20mg Take 20 mg Univers n 20 mg 2-03 by mouth ity of tablet 14:05: daily. [address] Branch atorvastati 2-0 Yes 20mg Take 20 mg Univers n 20 mg 2-03 by mouth ity of tablet 14:05: daily. [address] atorvastati Yes 20mg Take 20 mg Univers n 20 mg 2-03 by mouth ity of tablet 14:05: daily. [address] atorvastati Yes 20mg Take 20 mg Univers n 20 mg 2-03 by mouth ity of tablet 14:05: daily. [address] atorvastati Yes 20mg Take 20 mg Univers n 20 mg 2-03 by mouth ity of tablet 14:05: daily. [address] atorvastati Yes 20mg Take 20 mg Univers n 20 mg 2-03 by mouth ity of tablet 14:05: daily. [address] atorvastati Yes 20mg Take 20 mg Univers n 20 mg 2-03 by mouth ity of tablet 14:05: daily. [address] traMADoL 50 0 Yes 4647 50mg Take 1 Univ ers [...] 21 Tab/Dspk TAB Methylpredn 2018-03 No 1 KNE U isolone 2-25 S - (Medrol 18:52: [place] Dose-Pack) 00 [facility] 21 Tab/Dspk l TAB [facility] ALPRAZolam 2018-03 Yes 1mg Take 1 mg Un lala (XANAX) 1 2-13 by mouth 3 ity of mg tablet 13:41: (three) [place] 15 times Medical daily. Branch omeprazole 2018-03 Yes 40mg Take 40 mg U nivers 40 mg 2-13 by mouth ity of capsule 13:41: daily. [address] loratadine 2018-03 Yes 10mg Take 10 mg U nivers 10 mg 2-13 by mouth ity of tablet 13:41: daily. [address] aspirin 81 2018-03 Yes 81mg Take 81 mg U nivers mg chewable 2-13 by mouth ity of tablet 13:41: daily. [address] Branch lisinopril 2018-03 Yes Take by Uni vers 10 mg 2-13 mouth ity of tablet 13:41: daily. [address] Branch albuterol 2018-03 Yes 1{ampul Use 1 Univ ers 1.25 mg/3 2-13 e} Ampule as ity o f mL 13:41: directed [place] nebulizer 15 every 6 Medical solution (six) Branch hours as needed for Wheezing. ALPRAZolam 2018-03 Yes 1mg Take 1 mg Un lala (XANAX) 1 2-13 by mouth 3 ity of mg tablet 13:41: (three) [place] 15 times Medical daily. Branch omeprazole 2018-03 Yes 40mg Take 40 mg U nivers 40 mg 2-13 by mouth ity of capsule 13:41: daily. [address] loratadine 2018-03 Yes 10mg Take 10 mg U nivers 10 mg 2-13 by mouth ity of tablet 13:41: daily. [address] aspirin 81 2018-03 Yes 81mg Take 81 mg U nivers mg chewable 2-13 by mouth ity of tablet 13:41: daily. [address] lisinopril 2018-03 Yes Take by Uni vers 10 mg 2-13 mouth ity of tablet 13:41: daily. [address] albuterol 2018-03 Yes 1{ampul Use 1 Univ ers 1.25 mg/3 2-13 e} Ampule as ity o f mL 13:41: directed [place] nebulizer 15 every 6 Medical solution (six) Branch hours as needed for Wheezing. ALPRAZolam 2018-03 Yes 1mg Take 1 mg Un lala (XANAX) 1 2-13 by mouth 3 ity of mg tablet 13:41: (three) [place] [address] times Medical daily. Branch omeprazole 2018-03 Yes 40mg Take 40 mg U nivers 40 mg 2-13 by mouth ity of capsule 13:41: daily. [address] loratadine 2018-03 Yes 10mg Take 10 mg U nivers 10 mg 2-13 by mouth ity of tablet 13:41: daily. [address] aspirin 81 2018-03 Yes 81mg Take 81 mg U nivers mg chewable 2-13 by mouth ity of tablet 13:41: daily. [address] lisinopril 2018-03 Yes Take by Uni vers 10 mg 2-13 mouth ity of tablet 13:41: daily. [address] albuterol 2018-03 Yes 1{ampul Use 1 Univ ers 1.25 mg/3 2-13 e} Ampule as ity o f mL 13:41: directed [place] nebulizer 15 every 6 Medical solution (six) Branch hours as needed for Wheezing. benzonatate 2018-03 Yes [id number] 100mg Take 1 Univers 100 mg 2-11 capsule by ity of capsule 00:00: mouth 3 [place] 00 (three) Medical times Branch daily as needed for Cough. benzonatate 2018-03 Yes [id number] 100mg Take 1 Univers 100 mg 2-11 capsule by ity of capsule 00:00: mouth 3 [place] 00 (three) Medical times Branch daily as needed for Cough. benzonatate 2018-03 Yes [id number] 100mg Take 1 Univers 100 mg 2-11 capsule by ity of capsule 00:00: mouth 3 [place] 00 (three) Medical times Branch daily as needed for Cough. benzonatate 2018-03 Yes [id number] 100mg Take 1 Univers 100 mg 2-11 capsule by ity of capsule 00:00: mouth 3 [place] 00 (three) Medical times Branch daily as needed for Cough. benzonatate 2018-03 Yes [id number] 100mg Take 1 Univers 100 mg 2-11 capsule by ity of capsule 00:00: mouth 3 [place] 00 (three) Medical times Branch daily as needed for Cough. benzonatate 2018-03 Yes [id number] 100mg Take 1 Univers 100 mg 2-11 capsule by ity of capsule 00:00: mouth 3 [place] 00 (three) Medical times Branch daily as needed for Cough. benzonatate 2018-03 Yes [id number] 100mg Take 1 Univers 100 mg 2-11 [...] hot shower 1 hour before bedtime sod 2017-0 Yes 1{bottl Use 1 Univers chlor-bicar 3-18 e} Bottle in ity of b-squeez 00:00: each [place] bottle 00 nostril 2 Medical (NEILMED (two) Branch SINUS RINSE times COMPLETE) daily. Use pkdv in hot shower 1 hour before bedtime Immunizations Ordered Filled Immunization Date Status Comments Sour e Immunization Name Name SARS-COV-2 COVID-19 2020-10-15 Completed Unive rsity of PFIZER VACCINE 00:00:00 [place] [facility] SARS-COV-2 COVID-19 2020-10-15 Completed Unive rsity of PFIZER VACCINE 00:00:00 [facility] SARS-COV-2 COVID-19 2020-10-15 Completed Unive rsity of PFIZER VACCINE 00:00:00 [facility] SARS-COV-2 COVID-19 2020-10-15 Completed Unive rsity of PFIZER VACCINE 00:00:00 [facility] SARS-COV-2 COVID-19 2020-10-15 Completed Unive rsity of PFIZER VACCINE 00:00:00 [facility] SARS-COV-2 COVID-19 2020-10-15 Completed Unive rsity of PFIZER VACCINE 00:00:00 [facility] SARS-COV-2 COVID-19 2020-10-15 Completed Unive rsity of PFIZER VACCINE 00:00:00 [facility] SARS-COV-2 COVID-19 2020-09-22 Completed Unive rsity of PFIZER VACCINE 00:00:00 [facility] SARS-COV-2 COVID-19 2020-09-22 Completed Unive rsity of PFIZER VACCINE 00:00:00 [facility] SARS-COV-2 COVID-19 2020-09-22 Completed Unive rsity of PFIZER VACCINE 00:00:00 [facility] SARS-COV-2 COVID-19 2020-09-22 Completed Unive rsity of PFIZER VACCINE 00:00:00 [facility] SARS-COV-2 COVID-19 2020-09-22 Completed Unive rsity of PFIZER VACCINE 00:00:00 [facility] SARS-COV-2 COVID-19 2020-09-22 Completed Unive rsity of PFIZER VACCINE 00:00:00 [facility] SARS-COV-2 COVID-19 2020-09-22 Completed Unive rsity of PFIZER VACCINE 00:00:00 [facility] Vital Signs Vital Name Observation Time Observation Value Comments Source Body Temperature 2019-02-24 19:15:00 98.0 [degF] [facility] Heart Rate 2019-02-24 19:15:00 94 /min [facility] Respiratory rate 2019-02-24 19:15:00 20 /min [facility] BP Systolic 2019-02-24 19:15:00 134 mm[Hg] [facility] BP Diastolic 2019-02-24 19:15:00 71 mm[Hg] [facility] Heart Rate 2019-02-24 18:32:00 94 /min [facility] Respiratory rate 2019-02-24 18:32:00 20 /min [facility] BP Systolic 2019-02-24 18:32:00 134 mm[Hg] [facility] [employer] BP Diastolic 2019-02-24 18:32:00 71 mm[Hg] [facility] Weight 2019-02-24 18:32:00 180 [lb_av] [facility] BMI (Body Mass Index) 2019-02-24 18:32:00 32.9 kg/m2 [facility] Procedure Date / Time Performing Clinician Source Performed INSURANCE CORRESPONDENCE 2021-05-12 06:01:00 Doctor Unassigned, [facility] [place] [facility] Plan of Care Planned Activity Planned Date Details Comments Source Future Scheduled Test Streptococcus pyogenes ESPERANZA Morales culture [code = [facility] 24134-2] Goal Patient referral [code RE Morales = [id number] ] [facility] Instructions Eustachian Tube [facility]STUS - J asper Problems [facility] Instructions Eustachian Tube [facility] - J asper Problems (DC) [facility] angel Encounters Start End Encounter Admission Attending Care Care Encounter Source Date/Time Date/Time Type Type Clinicians Facility Department ID 2021-07-23 2021-07-23 ABBE Barber [id number] Univers 00:00:00 00:00:00 [facility] 350.1.13.10 it y of [place] 4.2.7.2.686 Bill as CHRISTINA?BLEA [id number] Nc berta [address] MEDICAL OFFICE BUILDING 2021-06-06 2021-06-06 Outpatient FOG_Brown_B AOSM AOSM [id number] Traci 10:52:00 10:52:00 Trina [id number] Orth ope dic Sports Medicin e 2021-05-15 2021-05-15 Telephone [facility] [id number] Univers 00:00:00 00:00:00 [facility] 350.1.13.10 it y of [place] 4.2.7.2.686 Bill as CHRISTINA?BLEA [id number] Nc inocencioal COLIN 198 [facility] 2021-05-12 2021-05-12 Orders Doctor YOLIS [id number] [id number] Univers 00:00:00 00:00:00 Only Unassigned, TIN 350.1.13.10 ity of [place] [facility] 4.2.7.2.686 Bill as [id number] [address] 2021-05-11 2021-05-11 [facility] [id number] Univers 10:45:00 10:45:00 DANIEL [id number] ity [facility] 2021-05-11 2021-05-11 [facility]patient Iss[facility] [id number] Univers 10:45:00 10:45:00 [facility] [place] [facility]-11 2021-05-11 Telephone [facility] [id number] Univers 00:00:00 00:00:00 [facility] CC video 350.1.13.10 it y of [place] 4.2.7.2.686 Bill as CHRISTINA?BLEA [id number] Nc berta SHAW 198 [facility] 2021-05-08 2021-05-08 Telephone [facility] [id number] [id number] Univers 00:00:00 00:00:00 [facility] L HEALTH 350.1.13.10 it y of [place] 4.2.7.2.686 Bill as CHRISTINA?BLEA [id number] Nc dical COLIN 198 [facility] 2021-05-07 2021-05-07 Telephone [facility] [id number] Univers 00:00:00 00:00:00 [facility] MENDOZA 350.1.13.10 it y of [place] 4.2.7.2.686 Bill as CHRISTINA?BLEA [id number] Nc berta [place] 198 [facility] 2021-04-27 2021-04-27 [facility] [id number] Univers 09:00:00 09:00:00 [place] odell [facility] 2021-04-11 2021-04-11 [facility] 1.2.840.114 [id number] Univers 00:00:00 00:00:00 [place] MENDOZA 350.1.13.10 it y of [place] 4.2.7.2.686 Bill as CHRISTINA?BLEA [id number] Nc berta [place] 198 [facility] 2020-03-29 2020-03-29 Orders Doctor YOLIS [id number] [id number] 00:00:00 00:00:00 Only Unassigned, [place] 350.1.13.10 [place] [facility] 4.2.7.2.686 [id number] 2020-03-11 2020-03-11 Emergency [facility] 1.2.840.114 [id number] 18:06:00 18:59:00 Nidia Mtz 350.1.13.10 [place] 4.2.7.2.686 [place] [id number] 2020-01-17 2020-01-17 Emergency Goldman, [facility] 1.2.840.114 [id number] 16:55:00 19:20:00 Nidia Mtz 350.1.13.10 [place] 4.2.7.2.686 [place] [id number] 2019-05-25 2019-05-25 Outpatient JUDYCARLOS [facility] [id number] [place] 00:00:00 00:00:[address] 2019-05-25 2019-05-25 Outpatient JUDYYogi CARLOS [facility] [id number] [place] 00:00:00 00:00:[address] 2019-05-25 2019-05-25 Outpatient SIFFCARLOS [facility] [id number] [place] 00:00:00 00:00:[address] 2019-05-25 2019-05-25 Outpatient SIFFCARLOS [facility] [id number] [place] 00:00:00 00:00:[address] 2019-02-24 2019-02-24 Departed [facility] [id number] CHRISTU 18:14:00 19:15:[address] 2019-02-24 2019-02-24 Departed [facility] [id number] CHRISTU 18:14:00 19:15:[address] Health Results Test Description Test Time Test Comments Results Result Comments Source Throat Streptococcus pyogenes antigen detection 2019-02-24 1 8:38:00 Test Item Value Reference Range Interpretation Comme nts Group A Streptococcus Screen (test code = 25990-7) [facility] Streptococcus pyogenes antigen [id number] 18:38:00 Test Item Value Reference Range Interpretation Comments Group A Streptococcus Screen (test Negative code = 47057-3) [facility]
[2021-08-15] MEDS ORDERED: PROMETHAZINE INJ 25 MG/ML AMP ONE (19:23)
[2021-08-15] MEDS ORDERED: MORPHINE 4 MG/ML SYR ONE (19:23)
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
[2021-08-15 20:56] VITALS: BP 120/76; TEMP 98.1; O2SAT 98
== END 2021-08-15 20:46 | disposition home or self-care (01) ==
LOC: ER 18:53
DX: S22.41XA Multiple fractures of ribs, right side, initial encounter for closed fracture (principal); Z72.0 Tobacco use; I10 Essential (primary) hypertension; G89.29 Other chronic pain; F41.9 Anxiety disorder, unspecified; Z88.0 Allergy status to penicillin; Z88.5 Allergy status to narcotic agent
CPT/HCPCS: 96375; 96374; 99283; J2550

== ENCOUNTER 2021-09-26 23:51 | Emergency (ER) | payer OTHER ==
[2021-09-27] MEDS ORDERED: MORPHINE 4 MG/ML SYR ONE ×2 (00:24→03:54)
[2021-09-27] MEDS ORDERED: ONDANSETRON 4 MG/2 ML VIAL ONE (00:25)
[2021-09-27 00:37] LABS: Absolute Lymphocytes (CBC) 1.9 K/uL (0.7-4.9); Hematocrit 42.4 % (36.0-45.0); MCV 91.4 fL (80-100); MPV 7.8 fL (7.6-11.3); RBC Red Blood Cell Count 4.64 M/uL (3.86-4.86)
[2021-09-27 00:45] LABS: Potassium 3.9 mmol/L (3.5-5.1)
[2021-09-27] MEDS ORDERED: IPRATROPIUM BROM 0.5MG/2.5ML ONE (01:56)
[2021-09-27] MEDS ORDERED: ALBUTEROL 2.5 MG/3 ML NEB SOL ONE (01:56)
[2021-09-27] MEDS ORDERED: METHYLPREDNISOLONE 125 MG INJ ONE (02:02)
--- NOTE | 2021-09-27 03:45 | ER ---
Nurse's Notes [facility] Name: Vicky Walker Age: 60 yrs Sex: Female : 1960 Arrival Date: 09/26/2021 Time: 23:53 Bed 2 Private MD: Diagnosis: Pain in hip;Pain in right hip Presentation: 09/26 23:53 Chief complaint: Patient states: I fell out of bed over 24 hours ago and i was just kd3 trying to tough it out but i couldn't take it anymore. I fell out of my bed and hit a marble table on my back and right hip. Coronavirus screen: Vaccine status: Patient reports receiving the 2nd dose of the covid vaccine. Ebola Screen: No symptoms or risks identified at this time. Initial Sepsis Screen: Does the patient meet any 2 criteria? No. Patient's initial sepsis screen is negative. Does the patient have a suspected source of infection? No. Patient's initial sepsis screen is negative. Risk Assessment: Do you want to hurt yourself or someone else? Patient reports no desire to harm self or others. Onset of symptoms was September 26, 2021. 23:53 Method Of Arrival: EMS: [facility] kd3 23:53 Acuity: PIYUSH 3 kd3 Triage Assessment: 23:57 General: Appears uncomfortable, Behavior is calm, cooperative. Pain: Complains of pain kd3 in back and right hip. Neuro: Level of Consciousness is awake, alert, obeys commands, Oriented to person, place, time, situation. Respiratory: Airway is patent Trachea midline Respiratory effort is even, unlabored, Respiratory pattern is regular, symmetrical. Historical: - Allergies: 23:57 PENICILLINS; kd3 23:57 Toradol; kd3 - Home Meds: 23:57 Flonase 50 mcg/actuation Nasal spsn 1 spray 2 times per day [Active]; lisinopril 10 mg kd3 Oral tab once daily [Active]; loratadine 10 mg Oral tab 1 tab once daily [Active]; omeprazole 20 mg Oral cpDR 1 cap once daily [Active]; Xanax 1 mg Oral tab 1 tab 3 times per day [Active]; - PMHx: 23:57 allergies; Chronic pain; Hypertension; GERD; Anxiety; psoriasis; kd3 - Immunization history:: Adult Immunizations up to date. - Social history:: Smoking status: unknown. Screenin:59 Abuse screen: Denies threats or abuse. Denies injuries from another. Nutritional kd3 screening: No deficits noted. Tuberculosis screening: No symptoms or risk factors identified. Fall Risk None identified. Assessment: 09/27 02:16 General: Appears uncomfortable, Behavior is crying. Neuro: Level of Consciousness is kd3 awake, alert, obeys commands, Oriented to person, place, time, situation. Respiratory: Airway is patent Trachea midline Respiratory effort is even, unlabored, Respiratory pattern is regular, symmetrical. Vital Signs: 09/26 23:53 BP 143 / 92; Pulse 88; Resp 19; Temp 98.4(O); Pulse Ox 98% on R/A; Weight 79.38 kg; kd3 Height 5 ft. 2 in. (157.48 cm); Pain 9/10; 09/27 00:01 BP 143 / 89; Pulse 81; Resp 16; Pulse Ox 96% on R/A; kl 00:30 BP 133 / 94; Pulse 73; Resp 18; Pulse Ox 96% on R/A; kl 01:00 BP 131 / 69; Pulse 72; Resp 18; Pulse Ox 95% on R/A; kl 02:15 BP 114 / 71; Pulse 73; Resp 19; Pulse Ox 97% on R/A; kd3 03:53 BP 128 / 85; Pulse 68; Resp 16; Pulse Ox 97% on R/A; Pain 7/10; kl 09/26 23:53 Body Mass Index 32.01 (79.38 kg, 157.48 cm) kd3 ED Course: 09/26 23:53 Patient arrived in ED. kd3 23:57 Triage completed. kd3 23:59 Latrell Strickland PA is PHCP. cp 23:59 Gomez Castillo MD is Attending Physician. cp 23:59 Patient has correct armband on for positive identification. kd3 09/27 00:00 Arm band placed on. kd3 00:07 Laine Dong, TANISHA is Primary Nurse. kd3 00:19 Basic Metabolic Panel Sent. kd3 00:19 CBC with Diff Sent. kd3 02:41 XRAY Hip RIGHT 2 view In Process Unspecified. EDMS 02:41 XRAY Pelvis In Process Unspecified. EDMS 04:12 No provider procedures requiring assistance completed. IV discontinued, intact, kl bleeding controlled, No redness/swelling at site. Pressure dressing applied. Administered Medications: 00:20 Drug: morphine 4 mg Route: IVP; Infused Over: 4 mins; Site: right forearm; kl 01:30 Follow up: Response: Marked relief of symptoms kl 00:20 Drug: Zofran (Ondansetron) 4 mg Route: IVP; Site: right forearm; kl 03:55 Follow up: Response: No adverse reaction kl 01:51 Drug: Albuterol - atroVENT (ipratropium) (3:1) (2.5 mg - 0.5 mg) 3 ml Route: Nebulizer; kl 01:57 Drug: SOLU-Medrol (methylPrednisoLONE) 125 mg Route: IVP; Site: right forearm; kl 03:54 Follow up: Response: No adverse reaction kl 03:51 Drug: morphine 4 mg Route: IVP; Infused Over: 4 mins; Site: right forearm; kl 03:52 Drug: HYDROcodone-acetaminophen 5 mg-325 mg 1 tabs Route: PO; kl Medication: 00:00 VIS not applicable for this client. kd3 Outcome: 03:44 Discharge ordered by . kdr 04:12 Discharged to home ambulatory. kl 04:12 Condition: improved 04:12 Discharge instructions given to patient, Instructed on discharge instructions, follow up and referral plans. medication usage, Demonstrated understanding of instructions, follow-up care, medications, Prescriptions given X 1. 04:12 Patient left the ED. kl Signatures: Dispatcher [employer] [facility] Dolly Ruth RN RN kl Rittger, Kevin, MD MD kdr Page, Corey, PA PA cp Doucette, Kyli RN RN kd3
--- NOTE | 2021-09-27 03:45 | EDPHYS ---
Physician Documentation [facility] Name: Vicky Walker Age: 60 yrs Sex: Female : 1960 Arrival Date: 09/26/2021 Time: 23:53 Bed 2 Private MD: ED Physician Gomez Castillo HPI: 09/27 00:10 This 60 yrs old Female presents to ER via EMS with complaints of Fall Injury. cp 00:10 Details of fall: The patient fell from an upright position, while standing. Onset: The cp symptoms/episode began/occurred yesterday. Associated injuries: The patient sustained right mid and right lower back, painful injury. Severity of symptoms: in the emergency department the symptoms are unchanged, despite home interventions. 00:10 Patient reports striking back against marble table. cp Historical: - Allergies: 09/26 23:57 PENICILLINS; kd3 23:57 Toradol; kd3 - Home Meds: 23:57 Flonase 50 mcg/actuation Nasal spsn 1 spray 2 times per day [Active]; lisinopril 10 mg kd3 Oral tab once daily [Active]; loratadine 10 mg Oral tab 1 tab once daily [Active]; omeprazole 20 mg Oral cpDR 1 cap once daily [Active]; Xanax 1 mg Oral tab 1 tab 3 times per day [Active]; - PMHx: 23:57 allergies; Chronic pain; Hypertension; GERD; Anxiety; psoriasis; kd3 - Immunization history:: Adult Immunizations up to date. - Social history:: Smoking status: unknown. ROS: 09/27 00:15 Constitutional: Negative for body aches, chills, fever, poor PO intake. cp 00:15 Cardiovascular: Negative for chest pain, edema, palpitations. cp 00:15 Respiratory: Positive for shortness of breath. 00:15 Abdomen/GI: Negative for abdominal pain, nausea, vomiting, and diarrhea, constipation, bowel incontinence. 00:15 Back: Positive for pain at rest, pain with movement. 00:15 MS/extremity: Negative for decreased range of motion, paresthesias. 00:15 Neuro: Negative for altered mental status, headache, loss of consciousness, syncope, weakness. 00:15 All other systems are negative. Exam: 00:20 Constitutional: The patient appears in no acute distress, alert, awake, cp non-diaphoretic, non-toxic, well developed, well nourished, uncomfortable. 00:20 Head/Face: Normocephalic, atraumatic. cp 00:20 Eyes: Periorbital structures: appear normal, Conjunctiva: normal, no exudate, no injection, Sclera: no appreciated abnormality, Lids and lashes: appear normal, bilaterally. 00:20 ENT: External ear(s): are unremarkable, Nose: is normal, Mouth: Lips: moist, Oral mucosa: moist, Posterior pharynx: Airway: no evidence of obstruction, patent. 00:20 Neck: C-spine: vertebral tenderness, is not appreciated, crepitus, is not appreciated, ROM/movement: is normal, is supple, without pain, no range of motions limitations. 00:20 Chest/axilla: Inspection: normal. 00:20 Cardiovascular: Rate: normal, Rhythm: regular, Edema: is not appreciated, JVD: is not appreciated. 00:20 Respiratory: the patient does not display signs of respiratory distress, Respirations: normal, no use of accessory muscles, no retractions, labored breathing, is not present, Breath sounds: are clear throughout, no decreased breath sounds, no stridor, no wheezing. 00:20 Abdomen/GI: Inspection: abdomen appears normal, Palpation: abdomen is soft and non-tender, in all quadrants. 00:20 Back: pain, that is severe, of the right mid back and right low back, ROM is painful, with all movement, vertebral tenderness, is not appreciated, Straight leg raises: of both lower extremities does not illicit pain. 00:20 Skin: cellulitis, is not appreciated, no rash present. no significant bruising, swelling noted to right flank, low back area. 00:20 Neuro: Orientation: to person, place \T\ time. Mentation: is normal, Motor: moves all fours, strength is normal, Sensation: is normal. Vital Signs: 09/26 23:53 BP 143 / 92; Pulse 88; Resp 19; Temp 98.4(O); Pulse Ox 98% on R/A; Weight 79.38 kg; kd3 Height 5 ft. 2 in. (157.48 cm); Pain 9/10; 09/27 00:01 BP 143 / 89; Pulse 81; Resp 16; Pulse Ox 96% on R/A; kl 00:30 BP 133 / 94; Pulse 73; Resp 18; Pulse Ox 96% on R/A; kl 01:00 BP 131 / 69; Pulse 72; Resp 18; Pulse Ox 95% on R/A; kl 02:15 BP 114 / 71; Pulse 73; Resp 19; Pulse Ox 97% on R/A; kd3 03:53 BP 128 / 85; Pulse 68; Resp 16; Pulse Ox 97% on R/A; Pain 7/10; kl 09/26 23:53 Body Mass Index 32.01 (79.38 kg, 157.48 cm) kd3 MDM: 00:13 Patient medically screened. cp 02:05 Data reviewed: vital signs, nurses notes, lab test result(s). cp 02:05 Counseling: I had a detailed discussion with the patient and/or guardian regarding: the cp historical points, exam findings, and any diagnostic results supporting the discharge/admit diagnosis, lab results. ED course: Patient refusing CT. Will do xrays of pelvis and right hip. Will transfer care to DR Castillo while awaiting radiology studies. 09/27 00:04 Order name: Basic Metabolic Panel; Complete Time: 01:40 cp 09/27 00:04 Order name: CBC with Diff; Complete Time: 01:40 cp 09/27 01:49 Order name: XRAY Pelvis cp 09/27 01:49 Order name: XRAY Hip RIGHT 2 view cp 09/27 00:04 Order name: Labs collected and sent; Complete Time: 00:19 cp Administered Medications: 00:20 Drug: morphine 4 mg Route: IVP; Infused Over: 4 mins; Site: right forearm; kl 01:30 Follow up: Response: Marked relief of symptoms kl 00:20 Drug: Zofran (Ondansetron) 4 mg Route: IVP; Site: right forearm; kl 03:55 Follow up: Response: No adverse reaction kl 01:51 Drug: Albuterol - atroVENT (ipratropium) (3:1) (2.5 mg - 0.5 mg) 3 ml Route: Nebulizer; kl 01:57 Drug: SOLU-Medrol (methylPrednisoLONE) 125 mg Route: IVP; Site: right forearm; kl 03:54 Follow up: Response: No adverse reaction kl 03:51 Drug: morphine 4 mg Route: IVP; Infused Over: 4 mins; Site: right forearm; kl 03:52 Drug: HYDROcodone-acetaminophen 5 mg-325 mg 1 tabs Route: PO; Disposition: 04:28 Co-signature as Attending Physician, Gomez Castillo MD I agree with the assessment and kdr plan of care. Disposition Summary: 09/27/21 03:44 Discharge Ordered Location: Home kdr Problem: new kdr Symptoms: have improved kdr Condition: Stable kdr Diagnosis - Pain in hip kdr - Pain in right hip kdr Followup: kdr - With: Private Physician - When: 2 - 3 days - Reason: If symptoms return, Further diagnostic work-up, Recheck today's complaints, Continuance of care, Re-evaluation by your physician Discharge Instructions: - Discharge Summary Sheet kdr - Joint Pain kdr - Musculoskeletal Pain kdr - Hip Pain kdr Forms: - Medication Reconciliation Form kdr - Thank You Letter kdr - Prescription Opioid Use kdr Prescriptions: - Tylenol-Codeine #3 300 mg-30 mg Oral - take 1 tablet by ORAL route every 6 hours; 12 tablet; Refills: 0, Product kdr Selection Permitted Signatures: Dispatcher [employer] Dolly Evans, RN RN Gomez Jiménez MD MD kdr Latrell Strickland PA PA Laine Hastings, RN RN kd3 Corrections: (The following items were deleted from the chart) 02:01 00:32 Chest Abdomen Pelvis W [id number] ordered. EDMS EDMS
[2021-09-27] MEDS ORDERED: HYDROCODONE/APAP 5/325 MG TAB ONE (03:55)
[2021-09-27 05:40] VITALS: TEMP 98.4
[2021-09-27 05:48] VITALS: O2SAT 97
[2021-09-27 05:51] VITALS: BP 128/85
--- NOTE | 2021-09-27 15:12 | RAD REPORT ---
EXAM DESCRIPTION: RAD - Hip Right 2 View - 09/27/2021 2:39 am CLINICAL HISTORY: Fall Hip Right 2 View COMPARISON: None. FINDINGS: 2 views of the right hip. No acute fracture or dislocation. Normal osseous mineralization. IMPRESSION: 1. No acute fracture or dislocation. Electronically signed by: Billy Gerard 09/27/2021 3:32 AM CDT Due to temporary technical issues with the PACS/Fluency reporting system, reports are being signed by the in house radiologists without review as a courtesy to insure prompt reporting. The interpreting radiologist is fully responsible for the content of the report.
--- NOTE | 2021-09-27 15:15 | RAD REPORT ---
EXAM DESCRIPTION: RAD - Pelvis - 09/27/2021 2:39 am CLINICAL HISTORY: Fall COMPARISON: None. FINDINGS: Single view of the pelvis. No acute fracture or dislocation. Normal osseous mineralization . IMPRESSION: 1. No acute fracture or dislocation. Electronically signed by: Billy Gerard 09/27/2021 3:31 AM CDT Due to temporary technical issues with the PACS/Fluency reporting system, reports are being signed by the in house radiologists without review as a courtesy to insure prompt reporting. The interpreting radiologist is fully responsible for the content of the report.
== END 2021-09-27 04:12 | disposition home or self-care (01) ==
LOC: ER 23:51
DX: M25.551 Pain in right hip (principal); M54.9 Dorsalgia, unspecified; R06.02 Shortness of breath; I10 Essential (primary) hypertension; F41.9 Anxiety disorder, unspecified; K21.9 Gastro-esophageal reflux disease without esophagitis; Z88.0 Allergy status to penicillin; Z88.5 Allergy status to narcotic agent
CPT/HCPCS: 85025; 80048; 36415; 72170; 73502; 94640; 96375; 96374; 99284; J2930; J2405

== ENCOUNTER 2021-11-14 13:19 | Emergency (ER) | payer OTHER ==
--- OUTSIDE RECORDS SUMMARY | 2021-11-14 13:24 | XMS REPORT | Continuity of Care Document ---
:1960 Author Organization [facility] t Address [address] [place] [place] [address] Care Team Providers Name Role Phone Rob Torres MD Primary Care Physician [phone] Attending Clinician Unavailable CLOVER HEATH Attending Clinician Unavailable Daniel Garner Attending Clinician Clover Heath MD Attending Clinician Doctor Unassigned, [place] Attending Clinician Unavailable DANIEL BAL Attending Clinician Unavailable Nidia Vaughn Attending Clinician CARLOS MAYO Attending Clinician Unavailable Rd Admitting Clinician Unavailable Payers Payer Name Policy Type Policy Number Effective Date Expiration Date S julio [employer] (MEDICARE [id number] REPLACEMENT/ADVANTA GE - PPO) [facility] [id number] [facility] (MEDICAID 00:00:00 HMO) [employer] (MEDICARE [id number] 2021 REPLACEMENT/ADVANTA 00:00:00 GE - PPO) Problems Condition Condition Condition Status Onset Resolution Last Treating Co mments Source Name Details Category Date Date Treatment Clinician Date Primary Primary Disease Active Overview: Univ ers osteoarthr osteoarthr 1-10 Formattin ity of itis of itis of 00:00: g of this [place] right knee right knee 00 note Me dical might be Branch different from the original. Added automatic ally from request for surgery [id number] Fracture, Fracture, Disease Active Met Ezekiel Ocampo, 2-24 st left, left, 00:00: Hospita closed closed 00 l Obesity Obesity Disease Active Univers (BMI (BMI 5-05 ity of 30-39.9) 30-39.9) 00:00: Medical Branch Chest pain Chest pain Disease Active U nivers 5-04 ity of 00:00: Medical Branch Right foot Right foot Disease Active 2015-03 U nivers pain pain 2-14 ity of 00:00: Medical Branch Left Problem Active CHRISTU against S medical Health advice Otitic Problem Inactiv KENU barotrauma e S Health Rhinitis Problem Inactiv [...] Uni vers ins ty to See comments 830 child/ ? it y of adverse 00:00: rxn [place] reaction 00 Medical s Branch PENICILL Drug Active Unknown-Cmnt Un lala INS Class 8-30 ity of 00:00: [place] [facility] Penicill Propensi Active Rash Method i ins ty to 8-30 st adverse 00:00: Hospita reaction 00 l s to drug PENICI Allergy Active Unknown KEN U LLIN AND to 5-24 S DERIVATI substanc 00:00: Health VES* e 00 Social History Social Habit Start Date Stop Date Quantity Comments Source Exposure to Not sure University of SARS-CoV-2 (event) [place] [facility] History of tobacco Cigarette Smoker [facility] Alcohol intake 2019-05-25 2019-05-25 0 /d [facility] 00:00:00 00:00:00 Hospital Cigarettes smoked 2019-05-25 2019-05-[address] current (pack per 00:00:00 00:00:00 Hospita l day) - Reported Cigarette 2019-05-25 2019-05-25 [facility] pack-years 00:00:00 00:00:00 Hospital Tobacco use and 2017-09-24 2017-09-24 Smokeless Universit y of exposure 00:00:00 00:00:00 tobacco non-user [facility] Sex Assigned At [birth year] [facility] 00:00:00 00:00:00 Hospital Smoking Status Start Date Stop Date Source Current Light tobacco 2019-02-24 18:35:00 [facility] smoker Smokes tobacco daily 2017-09-24 00:00:00 [facility] Ordered Filled Start Stop Current Ordering Indication Dosage Frequency Signature Comments Components Source Medication Medication Date Date Medication? Clinician (SIG) Name Name DICLOFENAC Yes [id number] TAKE 1 Univers 75 mg EC 7-12 9109 TABLET BY ity of tablet 00:00: MOUTH [place] 00 TWICE A Medical DAY WITH Branch MEALS diclofenac Yes [id number] 75mg Take 1 Univers 75 mg EC 5-23 9109 tablet by ity of tablet 00:00: mouth 2 [place] 00 (two) Medical times Branch daily with meals. diclofenac 2021- No [id number] 75mg Take 1 Univers 75 mg EC 5-23 07-12 9109 tablet by ity o f tablet 00:00: 00:00 mouth 2 [place] 00 :00 (two) Medical times Branch daily with meals. aspirin 81 Yes 81mg Take 81 mg U nivers mg chewable 3-10 by mouth ity of tablet 15:33: daily. [address] lisinopril Yes Take by Univ ers 10 mg 3-10 mouth ity of tablet 15:33: daily. [address] albuterol Yes 1{ampul Use 1 Univ ers 1.25 mg/3 3-10 e} Ampule as ity o f mL 15:33: directed [place] nebulizer 56 every 6 Medical solution (six) Branch hours as needed for Wheezing. ALPRAZolam 0 Yes 1mg Take 1 mg Un lala (XANAX) 1 3-10 by mouth 3 ity of mg tablet 15:33: (three) [place] [id number] times Medical daily. Branch omeprazole 0 Yes 40mg Take 40 mg U nivers 40 mg 3-10 by mouth ity of capsule 15:33: daily. [address] loratadine 0 Yes 10mg Take 10 mg U nivers 10 mg 3-10 by mouth ity of tablet 15:33: daily. [address] aspirin 81 2021-0 Yes 81mg Take 81 mg U nivers mg chewable 3-10 by mouth ity of tablet 15:33: daily. [address] Branch lisinopril 2021-0 Yes Take by Univ ers 10 mg 3-10 mouth ity of tablet 15:33: daily. [address] Branch albuterol 0 Yes 1{ampul Use 1 Univ ers 1.25 mg/3 3-10 e} Ampule as ity o f mL 15:33: directed [place] nebulizer every 6 Medical solution (six) Branch hours as needed for Wheezing. ALPRAZolam 0 Yes 1mg Take 1 mg Un lala (XANAX) 1 3-10 by mouth 3 ity of mg tablet 15:33: (three) [place] [id number] times Medical daily. Branch omeprazole 0 Yes 40mg Take 40 mg U nivers 40 mg 3-10 by mouth ity of capsule 15:33: daily. [address] loratadine 0 Yes 10mg Take 10 mg U nivers 10 mg 3-10 by mouth ity of tablet 15:33: daily. [address] aspirin 81 2021-0 Yes 81mg Take 81 mg U nivers mg chewable 3-10 by mouth ity of tablet 15:33: daily. [address] Branch lisinopril 2021-0 Yes Take by Univ ers 10 mg 3-10 mouth ity of tablet 15:33: daily. [address] albuterol 2021-0 Yes 1{ampul Use 1 Univ ers 1.25 mg/3 3-10 e} Ampule as ity o f mL 15:33: directed [place] nebulizer 56 every 6 Medical solution (six) Branch hours as needed for Wheezing. ALPRAZolam 0 Yes 1mg Take 1 mg Un lala (XANAX) 1 3-10 by mouth 3 ity of mg tablet 15:33: (three) [place] [id number] times Medical daily. Branch omeprazole 0 Yes 40mg Take 40 mg U nivers 40 mg 3-10 by mouth ity of capsule 15:33: daily. [address] loratadine 0 Yes 10mg Take 10 mg U nivers 10 mg 3-10 by mouth ity of tablet 15:33: daily. [address] aspirin 81 0 Yes 81mg Take 81 mg U nivers mg chewable 3-10 by mouth ity of tablet 15:33: daily. [address] Branch lisinopril 0 Yes Take by Univ ers 10 mg 3-10 mouth ity of tablet 15:33: daily. [address] albuterol 0 Yes 1{ampul Use 1 Univ ers 1.25 mg/3 3-10 e} Ampule as ity o f mL 15:33: directed [place] nebulizer 56 every 6 Medical solution (six) Branch hours as needed for Wheezing. ALPRAZolam 0 Yes 1mg Take 1 mg Un lala (XANAX) 1 3-10 by mouth 3 ity of mg tablet 15:33: (three) [place] [id number] times Medical daily. Branch omeprazole 0 Yes 40mg Take 40 mg U nivers 40 mg 3-10 by mouth ity of capsule 15:33: daily. [address] loratadine 0 Yes 10mg Take 10 mg U nivers 10 mg 3-10 by mouth ity of tablet 15:33: daily. [address] aspirin 81 0 Yes 81mg Take 81 mg U nivers mg chewable 3-10 by mouth ity of tablet 15:33: daily. [address] Branch lisinopril 2021-0 Yes Take by Univ ers 10 mg 3-10 mouth ity of tablet 15:33: daily. [address] albuterol 0 Yes 1{ampul Use 1 Univ ers 1.25 mg/3 3-10 e} Ampule as ity o f mL 15:33: directed [place] nebulizer 56 every 6 Medical solution (six) Branch hours as needed for Wheezing. ALPRAZolam 2021-0 Yes 1mg Take 1 mg Un lala (XANAX) 1 3-10 by mouth 3 ity of mg tablet 15:33: (three) [place] [id number] times Medical daily. Branch omeprazole 2021-0 Yes 40mg Take 40 mg U nivers 40 mg 3-10 by mouth ity of capsule 15:33: daily. [address] Branch loratadine 2021-0 Yes 10mg Take 10 mg U nivers 10 mg 3-10 by mouth ity of tablet 15:33: daily. [place] [address] Medical Branch diclofenac 2-0 Yes 75mg Take 1 Unive rs 75 mg EC 2-09 tablet by ity of tablet 00:00: mouth 2 [place] (two) Medical times Branch daily with meals. diclofenac 2022-0 Yes 75mg Take 1 Unive rs 75 mg EC 2-09 tablet by ity of tablet 00:00: mouth 2 [place] (two) Medical times Branch daily with meals. diclofenac 2-0 Yes 75mg Take 1 Unive rs 75 mg EC 2-09 tablet by ity of tablet 00:00: mouth 2 [place] (two) Medical times Branch daily with meals. diclofenac 2022-0 Yes 75mg Take 1 Unive rs 75 mg EC 2-09 tablet by ity of tablet 00:00: mouth [place] (two) Medical times Branch daily with meals. diclofenac 2022-0 Yes 75mg Take 1 Unive rs 75 mg EC 2-09 tablet by ity of tablet 00:00: mouth 2 [place] (two) Medical times Branch daily with meals. diclofenac 2022-0 Yes 75mg Take 1 Unive rs 75 mg EC 2-09 tablet by ity of tablet 00:00: mouth 2 [place] (two) Medical times Branch daily with meals. diclofenac 2022-0 2022- No 75mg Take 1 Univ ers 75 mg EC 2-09 05-23 tablet by ity o f tablet 00:00: 00:00 mouth 2 [place] 00 :00 (two) Medical times Branch daily with meals. atorvastati 2-0 Yes 20mg Take 20 mg Univers n 20 mg 2-03 by mouth ity of tablet 14:05: daily. [address] Branch atorvastati 2-0 Yes 20mg Take 20 mg Univers n 20 mg 2-03 by mouth ity of tablet 14:05: daily. [address] atorvastati 2021-0 Yes 20mg Take 20 mg Univers n 20 mg 2-03 by mouth ity of tablet 14:05: daily. [address] atorvastati 2021-0 Yes 20mg Take 20 mg Univers n 20 mg 2-03 by mouth ity of tablet 14:05: daily. [address] atorvastati 2021-0 Yes 20mg Take 20 mg Univers n 20 mg 2-03 by mouth ity of tablet 14:05: daily. [address] atorvastati 2021-0 Yes 20mg Take 20 mg Univers n 20 mg 2-03 by mouth ity of tablet 14:05: daily. [address] atorvastati 2021-0 Yes 20mg Take 20 mg Univers n 20 mg 2-03 by mouth ity of tablet 14:05: daily. [address] atorvastati 0 Yes 20mg Take 20 mg Univers n 20 mg 2-03 by mouth ity of tablet 14:05: daily. [address] traMADoL 50 2021-0 Yes 4647 50mg [...] 7-10). Indication s: acute pain traMADoL 50 1-0 Yes 4647 50mg Take 1 Univ ers mg tablet 5-27 tablet by ity o f 00:00: mouth [place] 00 every 4 Medical (four) Branch hours as needed for Pain (scale 7-10). Indication s: acute pain traMADoL 50 1-0 Yes 4647 50mg Take 1 Univ ers [...] Pain (scale 7-10). Indication s: acute pain predniSONE 2019-0 Yes prednisone M ethodi (DELTASONE) 3-[address] 10 mg 13:54: tablet Hospita tablet 49 l lisinopriL 2020-0 Yes lisinopril M ethodi (PRINIVIL) 3-[address] 10 mg 13:54: tablet Hospita tablet 49 l ipratropium 2019-0 Yes ipratropiu Methodi -albuteroL 3-[address] (DUO-NEB) 13:54: mg-albuter Ho spita 0.5-2.5 49 ol 3 mg l mg/3 mL (2.5 mg nebulizer base)/3 mL nebulizati on soln diclofenac 2019-0 Yes diclofenac M ethodi (VOLTAREN) 3-[address] 75 MG EC 13:54: mg Hospita tablet 49 tablet,del l ayed release busPIRone 2019-0 Yes buspirone Met hodi (BUSPAR) 10 3-[address] MG tablet 13:54: tablet Hospit a 49 l budesonide- 2020-0 Yes Symbicort M ethodi formoteroL 3-[address] (Symbicort) 13:54: mcg-4.5 Hos khanh 160-4.5 49 mcg/actuat l mcg/actuati ion HFA on inhaler aerosol inhaler atorvastati 2019-0 Yes 20mg Take 20 mg Methodi n (LIPITOR) 3-[address] 20 MG 13:54: Hospita tablet 49 l aspirin 81 2019-0 Yes 81mg Chew 81 Meth zeyad mg chewable 3-[address] tablet 13:54: Hospita 49 l predniSONE 2020-0 Yes prednisone M ethodi (DELTASONE) 3-[address] 10 mg 13:54: tablet Hospita tablet 49 l gabapentin 2020-0 Yes gabapentin M ethodi (NEURONTIN) 3-[address] 300 mg 13:54: capsule Hospita capsule 49 l lisinopriL 2020-0 Yes lisinopril M ethodi (PRINIVIL) 3-[address] 10 mg 13:54: tablet Hospita tablet 49 l ipratropium 2020-0 Yes ipratropiu Methodi -albuteroL 3-[address] (DUO-NEB) 13:54: mg-albuter Ho spita 0.5-2.5 49 ol 3 mg l mg/3 mL (2.5 mg nebulizer base)/3 mL nebulizati on soln diclofenac 2020-0 Yes diclofenac M ethodi (VOLTAREN) 3-[address] 75 MG EC 13:54: mg Hospita tablet 49 tablet,del l ayed release busPIRone 2019-0 Yes buspirone Met hodi (BUSPAR) 10 3-[address] MG tablet 13:54: tablet Hospit a 49 l budesonide- 2020-0 Yes Symbicort M ethodi formoteroL 3-[address] (Symbicort) 13:54: mcg-4.5 Hos khanh 160-4.5 49 mcg/actuat l mcg/actuati ion HFA on inhaler aerosol inhaler atorvastati 2020-0 Yes 20mg Take 20 mg Methodi n (LIPITOR) 3-[address] 20 MG 13:54: Hospita tablet 49 l aspirin 81 2020-0 Yes 81mg Chew 81 Meth zeyad mg chewable 3-[address] tablet 13:54: Hospita 49 l gabapentin 2020-0 Yes gabapentin M ethodi (NEURONTIN) 3-[address] 300 mg 13:54: capsule Hospita capsule 49 l ALPRAZolam 2020-0 Yes alprazolam M ethodi (XANAX) 3-[address] 0.25 MG 13:54: tablet Hospita tablet 49 l amLODIPine 2020-0 Yes amlodipine M ethodi (NORVASC) 3-[address] 10 mg 13:54: tablet Hospita tablet 49 l ALPRAZolam 2019- Yes alprazolam M ethodi (XANAX) 3-[address] 0.25 MG 13:54: tablet Hospita tablet 49 l albuterol 2019-0 Yes albuterol Met hodi (PROAIR 3-[address] HFA) 90 13:54: HFA 90 Hospita mcg/actuati 49 mcg/actuat l on inhaler ion aerosol inhaler amLODIPine Yes amlodipine M ethodi (NORVASC) 3-[address] 10 mg 13:54: tablet Hospita tablet 49 l albuterol Yes albuterol Met hodi (PROAIR 3-[address] HFA) 90 13:54: HFA 90 Hospita mcg/actuati 49 mcg/actuat l on inhaler ion aerosol inhaler Methylpredn 2018-03 No 1 KEN U isolone 2-25 S - (Medrol 18:52: [place] Dose-Pack) 00 Memoria 21 Tab/Dspk l TAB Hospita l Methylpredn 2018-03 No 1 As KEN U isolone 2-25 Directed S (Medrol 18:52: Health Dose-Pack) 00 21 Tab/Dspk TAB ALPRAZolam 2018-03 Yes 1mg Take 1 mg Un lala (XANAX) 1 2-13 by mouth 3 ity of mg tablet 13:41: (three) [place] [id number] times Medical daily. Branch omeprazole 2018-03 Yes 40mg Take 40 mg U nivers 40 mg 2-13 by mouth ity of capsule 13:41: daily. [address] Branch loratadine 2018-03 Yes 10mg Take 10 mg U nivers 10 mg 2-13 by mouth ity of tablet 13:41: daily. [address] Branch aspirin 81 2018-03 Yes 81mg Take 81 mg U nivers mg chewable 2-13 by mouth ity of tablet 13:41: daily. [address] Branch lisinopril 2018-03 Yes Take by Univ ers 10 mg 2-13 mouth ity of tablet 13:41: daily. [place] [address] Medical Branch albuterol 2018-03 Yes 1{ampul Use 1 [...] by mouth ity of capsule 13:41: daily. [address] loratadine 2018-03 Yes 10mg Take 10 mg U nivers 10 mg 2-13 by mouth ity of tablet 13:41: daily. [address] aspirin 81 2018-03 Yes 81mg Take 81 mg U nivers mg chewable 2-13 by mouth ity of tablet 13:41: daily. [address] lisinopril 2018-03 Yes Take by Univ ers 10 mg 2-13 mouth ity of tablet 13:41: daily. [address] albuterol 2018-03 Yes 1{ampul Use 1 Univ ers 1.25 mg/3 2-13 e} Ampule as ity o f mL 13:41: directed [place] nebulizer 15 every 6 Medical solution (six) Branch hours as needed for Wheezing. ALPRAZolam 2018-03 Yes 1mg Take 1 mg Un lala (XANAX) 1 2-13 by mouth 3 ity of mg tablet 13:41: (three) [place] 15 times Medical daily. Branch omeprazole 2018-03 Yes 40mg Take 40 mg U nivers 40 mg 2-13 by mouth ity of capsule 13:41: daily. [address] loratadine 2018-03 Yes 10mg Take 10 mg U nivers 10 mg 2-13 by mouth ity of tablet 13:41: daily. [address] aspirin 81 2018-03 Yes 81mg Take 81 mg U nivers mg chewable 2-13 by mouth ity of tablet 13:41: daily. [address] Branch lisinopril 2018-03 Yes Take by Univ ers 10 mg 2-13 mouth ity of tablet 13:41: daily. [address] albuterol 2018-03 Yes 1{ampul Use 1 Univ ers 1.25 mg/3 2-13 e} Ampule as ity o f mL 13:41: directed [place] nebulizer 15 every 6 Medical solution (six) Branch hours as needed for Wheezing. benzonatate 2018-03 Yes [id number] 100mg Take 1 Univers 100 mg 2-11 capsule by ity of capsule 00:00: mouth 3 [place] 00 (three) Medical times Branch daily as needed for Cough. benzonatate 2018-03 Yes [id number] 100mg Take 1 Univers 100 mg 2-11 capsule by ity of capsule 00:00: mouth 3 [place] 00 (three) Medical times Branch daily as needed for Cough. benzonatate 2018-03 Yes [id number] 100mg Take 1 Univers 100 mg 2-11 capsule by ity of capsule 00:00: mouth 3 [place] 00 (three) Medical times Branch daily as needed for Cough. benzonatate 2018-03 Yes [id number] 100mg Take 1 Univers 100 mg 2-11 capsule by ity of capsule 00:00: mouth 3 [place] 00 (three) Medical times Branch daily as needed for Cough. benzonatate 2018-03 Yes [id number] 100mg Take 1 Univers 100 mg 2-11 capsule by ity of capsule 00:00: mouth 3 00 (three) Medical times Branch daily as needed for Cough. benzonatate 2018-03 Yes [id number] 100mg Take 1 Univers 100 mg 2-11 capsule by ity of capsule 00:00: mouth 3 00 (three) Medical times Branch daily as needed for Cough. benzonatate 2018-03 Yes [id number] 100mg Take 1 Univers 100 mg 2-11 capsule by ity of capsule 00:00: mouth 3 00 (three) Medical times Branch daily as needed for Cough. benzonatate 2018-03 Yes [id number] 100mg Take 1 Univers 100 mg 2-11 capsule by ity of capsule 00:00: mouth 3 00 (three) Medical times Branch daily as [...] Immunizations Ordered Filled Immunization Date Status Comments [facility] e Immunization Name Name SARS-COV-2 COVID-19 2020-10-15 Completed Unive rsity of PFIZER VACCINE 00:00:00 [facility] SARS-COV-2 COVID-19 2020-10-15 Completed Unive rsity of PFIZER VACCINE 00:00:00 [facility] SARS-COV-2 COVID-19 2020-10-15 Completed Unive rsity of PFIZER VACCINE 00:00:00 [facility] SARS-COV-2 COVID-19 2020-10-15 Completed Unive rsity of PFIZER VACCINE 00:00:00 [facility] SARS-COV-2 COVID-19 2020-10-15 Completed Unive rsity of PFIZER VACCINE 00:00:00 [facility] SARS-COV-2 COVID-19 2020-10-15 Completed Unive rsity of PFIZER VACCINE 00:00:00 [facility] SARS-COV-2 COVID-19 2020-10-15 Completed Unive rsity of PFIZER VACCINE 00:00:00 [facility] SARS-COV-2 COVID-19 2020-10-15 Completed Unive rsity of PFIZER VACCINE 00:00:00 [facility] SARS-COV-2 COVID-19 2020-09-22 Completed Unive rsity of PFIZER VACCINE 00:00:00 [facility] SARS-COV-2 COVID-19 2020-09-22 Completed Unive rsity of PFIZER VACCINE 00:00:00 [facility] SARS-COV-2 COVID-19 2020-09-22 Completed Unive rsity of PFIZER VACCINE 00:00:00 [facility] SARS-COV-2 COVID-19 2020-09-22 Completed Unive rsity of PFIZER VACCINE 00:00:00 [facility] SARS-COV-2 COVID-19 2020-09-22 Completed Unive rsity of PFIZER VACCINE 00:00:00 [facility] SARS-COV-2 COVID-19 2020-09-22 Completed Unive rsity of PFIZER VACCINE 00:00:00 [facility] SARS-COV-2 COVID-19 2020-09-22 Completed Unive rsity of PFIZER VACCINE 00:00:00 [facility] SARS-COV-2 COVID-19 2020-09-22 Completed Unive rsity of PFIZER VACCINE 00:00:00 [facility] Vital Signs Vital Name Observation Time Observation Value Comments Source Body Temperature 2019-02-24 19:15:00 98.0 [degF] [facility] 2019-02-24 19:15:00 94 /min [facility] Res[facility] rate 2019-02-24 19:15:00 20 /min [facility] [employer] BP Systolic 2019-02-24 19:15:00 134 mm[Hg] [facility] [employer] BP Diastolic 2019-02-24 19:15:00 71 mm[Hg] [facility] [employer] Respiratory rate 2019-02-24 18:32:00 20 /[facility] 2019-02-24 18:32:00 94 /min [facility] [employer] Respiratory rate 2019-02-24 18:32:00 20 /min [facility] [employer] BP Systolic 2019-02-24 18:32:00 134 mm[Hg] [facility] BP Diastolic 2019-02-24 18:32:00 71 mm[Hg] [employer] Weight 2019-02-24 18:32:00 180 [lb_av] [facility] BMI (Body Mass Index) 2019-02-24 18:32:00 32.9 kg/m2 [facility] Procedures Procedure Date / Time Performing Clinician Source Performed INSURANCE CORRESPONDENCE 2021-05-12 06:01:00 Doctor Unassigned, [place] [facility] [place] [facility] [place] Plan of Care Planned Activity Planned Date Details Comments Source Future Scheduled Test 2021-10-31 HEPATITIS B VACCINES [facility] 12:20:25 (1 of 3 - 3-dose Hospital series) [code = HEPATITIS B VACCINES (1 of 3 - 3-dose series)] Future Scheduled Test 2021-10-31 COVID-19 VACCINE (#1) [facility] 12:20:25 [code = COVID-19 Hospital VACCINE (#1)] Future Scheduled Test 2021-10-31 Pneumococcal Vaccine: [facility]into 12:20:25 Pediatrics (0 to 5 Hospital Years) and At-Risk Patients (6 to 64 Years) (1 - PCV) [code = Pneumococcal Vaccine: Pediatrics (0 to 5 Years) and At-Risk Patients (6 to 64 Years) (1 - PCV)] Future Scheduled Test 2021-10-31 Hepatitis C screening [facility] 12:20:25 (procedure) [code = Hospital [id number]] Future Scheduled Test 2021-10-31 Screening for Metho dist 12:20:25 malignant neoplasm of Hospit al cervix (procedure) [code = 473589186] Future Scheduled Test 2021-10-31 BREAST CANCER Metho dist 12:20:25 SCREENING [code = Hospital BREAST CANCER SCREENING] Future Scheduled Test 2021-10-31 COLONOSCOPY SCREENING [facility] 12:20:25 [code = COLONOSCOPY Hospital SCREENING] Future Scheduled Test 2021-10-31 SHINGLES VACCINES (1 [facility]into 12:20:25 of 2) [code = SHINGLES Hospi angel VACCINES (1 of 2)] Future Scheduled Test 2021-10-31 INFLUENZA VACCINE M ethodist 12:20:25 [code = INFLUENZA Hospital VACCINE] Future Scheduled Test 2021-10-25 HEPATITIS B VACCINES [facility] 09:31:21 (1 of 3 - 3-dose Hospital series) [code = HEPATITIS B VACCINES (1 of 3 - 3-dose series)] Future Scheduled Test 2021-10-25 COVID-19 VACCINE (#1) [facility] 09:31:21 [code = COVID-19 Hospital VACCINE (#1)] Future Scheduled Test 2021-10-25 Pneumococcal Vaccine: [facility]into 09:31:21 Pediatrics (0 to 5 Hospital Years) and At-Risk Patients (6 to 64 Years) (1 - PCV) [code = Pneumococcal Vaccine: Pediatrics (0 to 5 Years) and At-Risk Patients (6 to 64 Years) (1 - PCV)] Future Scheduled Test 2021-10-25 Hepatitis C screening [facility] 09:31:21 (procedure) [code = Hospital [id number]] Future Scheduled Test 2021-10-25 Screening for Metho dist 09:31:21 malignant neoplasm of Hospit al cervix (procedure) [code = [id number]] Future Scheduled Test 2021-10-25 BREAST CANCER Metho dist 09:31:21 SCREENING [code = Hospital BREAST CANCER SCREENING] Future Scheduled Test 2021-10-25 COLONOSCOPY SCREENING [facility]into 09:31:21 [code = COLONOSCOPY Hospital SCREENING] Future Scheduled Test 2021-10-25 SHINGLES VACCINES (1 Shinto 09:31:21 of 2) [code = SHINGLES Hospi angel VACCINES (1 of 2)] Future Scheduled Test 2021-10-25 INFLUENZA VACCINE M ethodist 09:31:21 [code = INFLUENZA Hospital VACCINE] Future Scheduled Test Streptococcus pyogenes ESPERANZA Morales culture [code = [facility] 87624-3] Goal Patient referral [code RE Morales = [id number] ] [facility] Hospit al Instructions Eustachian Tube ESPERANZA [facility] Instructions Eustachian Tube ESPERANZA [place] asper Problems [facility]DC) [facility] Start End Encounter Admission Attending Care Care Encounter Source Date/Time Date/Time Type Type Clinicians Facility Department ID 2021-11-14 2021-11-14 Outpatient FOG_Brown_B AOSM AOSM [id number] Traci 00:00:00 00:00:00 Trina [id number] Orth [facility] e 2021-11-11 2021-11-11 Outpatient FOG_Brown_B AOSM AOSM [id number] Traci 00:00:00 00:00:00 Trina [id number] Orth ope dic Sports Medicin e 2021-11-07 2021-11-07 Outpatient [facility] [id number] Univers 13:15:00 13:15:00 [place] [id number] ity [facility] 2021-08-31 2021-08-31 [facility] [id number] Univers 00:00:00 00:00:00 [facility] [id number] it y of [place] [id number] Bill as CHRISTINA?BLEA [id number] Ms dic[address] 2021-07-23 2021-07-23 [facility] [id number] Univers 00:00:00 00:00:00 [facility] [id number] it y of [place] [id number] Bill as CHRISTINA?BLEA [id number] Ms dic[address] 2021-06-06 2021-06-06 Outpatient FOG_Brown_B AOSM AOSM [id number] Traci 10:52:00 10:52:00 Trina [id number] Orth ope dic Sports Medicin e 2021-06-06 2021-06-06 Outpatient FOG_Brown_B AOSM AOSM [id number] Traci 10:52:00 10:52:00 Trina [id number] Orth ope dic Sports Medicin e 2021-06-06 2021-06-06 Outpatient FOG_Brown_B AOSM AOSM [id number] Traci 00:00:00 00:00:00 Trina [id number] [facility] 2021-05-15 2021-05-15 [facility]phone [facility] 1.2.840.114 [id number] Univers 00:00:00 00:00:00 Clover Mandujano [employer] 350.1.13.10 it y of [place] 4.2.7.2.686 Bill as CHRISTINA?BLEA [id number] Ms berta SHAW [address] [facility] OFFICE [facility] 2021-05-12 2021-05-12 Orders Doctor YOLIS 1..840.114 [id number] Univers 00:00:00 00:00:00 Only Unassigned, TIN 350.1.13.10 ity of [place] [facility] 4.2.7.2.686 Bill as [phone] [address] 2021-05-11 2021-05-11 Outpatient Issa [facility] [id number] Univers 10:45:00 10:45:00 DANIEL [id number] ity [facility] 2021-05-11 2021-05-11 Outpatient [facility] [id number] Univers 10:45:00 10:45:00 DANIEL [facility] 2021-05-11 2021-05-[address] [facility] 1.2.840.114 [id number] Univers 00:00:00 00:00:00 Clover Mandujano [employer] 350.1.13.10 it y of [place] 4.2.7.2.686 Bill as CHRISTINA?BLEA [id number] Ms berta SHAW [address] [place] [address] 2021-05-08 2021-05-08 [facility]phone [facility] 1.2.840.114 [id number] Univers 00:00:00 00:00:00 Clover Mandujano HEALTH 350.1.13.10 it y of [place] 4.2.7.2.686 Bill as CHRISTINA?BLEA [id number] Ms berta SHAW [address] [facility] OFFICE [facility] 2021-05-07 2021-05-07 [facility]phone [facility] 1.2.840.114 [id number] Univers 00:00:00 00:00:00 Clover MENDOZA 350.1.13.10 it y of [place] 4.2.7.2.686 Bill as CHRISTINA?BLEA [id number] Ms berta SHAW [address] [place] MEDICAL OFFICE [facility] 2021-04-27 2021-04-27 Outpatient [facility] [id number] Univers 09:00:00 09:00:00 CLOVER odell [facility] 2021-04-11 2021-04-11 Telephone [facility] 1.2.840.114 [id number] Univers 00:00:00 00:00:00 Clover MENDOZA 350.1.13.10 it y of [place] 4.2.7.2.686 Bill as CHRISTINA?BLEA [phone] Ms berta SHAW [address] [place] [address] OFFICE [facility] 2020-03-29 2020-03-29 Orders Doctor YOLIS 1.2.840.114 [id number] 00:00:00 00:00:00 Only Unassigned, [place] 350.1.13.10 [place] [facility] 4.2.7.2.686 [id number] 2020-03-11 2020-03-11 Emergency [facility], [facility] 1.2.840.114 [id number] 18:06:00 18:59:00 Nidia Mtz 350.1.13.10 [place] 4.2.7.2.686 [place] [id number] [id number] 2020-01-17 2020-01-17 Emergency Goldman, [facility] 1.2.840.114 [id number] 16:55:00 19:20:00 Nidia Mtz 350.1.13.10 [place] 4.2.7.2.686 [place] [phone] 2019-05-25 2019-05-25 Outpatient SIFF, CARLOS [facility] [id number] [place] 00:00:00 00:00:[address] 2019-05-25 2019-05-25 Outpatient SIFF, [facility] [id number] [place] 00:00:00 00:00:[address] 2019-05-25 2019-05-25 Outpatient SIFF, CARLOS [facility] [id number] [place] 00:00:00 00:00:[address] 2019-05-25 2019-05-25 Outpatient SIFCARLOS Calix [facility] [id number] [place] 00:00:00 00:00:[address] 2019-02-24 2019-02-24 Departed [facility] [id number] [place] 18:14:00 19:15:[address] 2019-02-24 2019-02-24 Departed [facility] [id number] [place] 18:14:00 19:15:[address] Health Results Test Description Test Time Test Comments Results Result Comments Source Throat Streptococcus pyogenes antigen detection 2019-02-24 1 8:38:00 Test Item Value Reference Range Interpretation Comme nts Group A Streptococcus Screen (test code = 49664-4) [facility] St[facility] pyogenes antigen [id number] 18:38:00 Test Item Value Reference Range Interpretation Comments Group A Streptococcus Screen (test Negative code = 91960-0) [facility]
--- NOTE | 2021-11-14 16:02 | RAD REPORT ---
EXAM DESCRIPTION: RAD - Chest Single View - 11/14/2021 3:57 pm CLINICAL HISTORY: Cough COMPARISON: Chest Pa And Lat (2 Views) dated 06/26/2021; Chest Pa And Lat (2 Views) dated 02/18/2019; Chest Pa And Lat (2 Views) dated 02/04/2019; Chest Single View dated 06/13/2018 FINDINGS: Lines: None. Lungs: No evidence of edema or pneumonia. Scattered calcified pulmonary nodules. Pleural: No significant pleural effusions or pneumothorax. Cardiac: The heart size is within normal limits. Mediastinum: Within normal limits. Bones: No acute fractures. Other: None IMPRESSION: No acute cardiopulmonary disease.
--- NOTE | 2021-11-14 17:13 | ER ---
Nurse's Notes [facility] Name: Vicky Walker Age: 61 yrs Sex: Female : 1960 Arrival Date: 11/14/2021 Time: 13:22 Bed 10 Private MD: Diagnosis: Acute upper respiratory infection, unspecified;Pain in right knee Presentation: 11/14 15:12 Chief complaint: Patient states: Right knee pain for 4-5 days; SOB, cough, and vg1 congestion 3-4 days with nausea and diarrhea. Denies sore throat. Coronavirus screen: Vaccine status: Patient reports receiving the 2nd dose of the covid vaccine. Client denies travel out of the [place] in the last 14 days. Ebola Screen: Patient denies exposure to infectious person. Patient denies travel to an Ebola-affected area in the 21 days before illness onset. Initial Sepsis Screen: Does the patient meet any 2 criteria? No. Patient's initial sepsis screen is negative. Does the patient have a suspected source of infection? No. Patient's initial sepsis screen is negative. Risk Assessment: Do you want to hurt yourself or someone else? Patient reports no desire to harm self or others. Onset of symptoms was November 10, 2021. 15:12 Method Of Arrival: Ambulatory vg1 15:12 Acuity: PIYUSH 4 vg1 Triage Assessment: 15:15 General: Appears uncomfortable, Behavior is cooperative. Pain: Complains of pain in vg1 Right knee Pain currently is 10 out of 10 on a pain scale. Pain began 4-5 days. Respiratory: Airway is patent Respiratory effort is even, unlabored, Breath sounds are clear. GI: Reports diarrhea, nausea, Patient currently denies vomiting. Historical: - Allergies: 15:15 PENICILLINS; vg1 15:15 Toradol; vg1 - Home Meds: 15:15 Flonase 50 mcg/actuation Nasal spsn 1 spray 2 times per day [Active]; omeprazole 20 mg vg1 Oral cpDR 1 cap once daily [Active]; Xanax 1 mg Oral tab 1 tab 3 times per day [Active]; lisinopril 10 mg Oral tab once daily [Active]; loratadine 10 mg Oral tab 1 tab once daily [Active]; - PMHx: 15:15 allergies; Anxiety; Chronic pain; GERD; Hypertension; psoriasis; vg1 - Immunization history:: Client reports receiving the 2nd dose of the Covid vaccine. - Social history:: Smoking status: Patient reports the use of cigarette tobacco products, smokes one-half pack cigarettes per day. Screenin:47 Abuse screen: Denies threats or abuse. Nutritional screening: No deficits noted. bm7 Tuberculosis screening: No symptoms or risk factors identified. Fall Risk None identified. Assessment: 17:47 Reassessment: No changes from previously documented assessment. Patient and/or family bm7 updated on plan of care and expected duration. Pain level reassessed. Patient is alert, oriented x 3, equal unlabored respirations, skin warm/dry/pink. Vital Signs: 15:12 BP 134 / 78; Pulse 78; Resp 16; Temp 98.1(TE); Pulse Ox 97% on R/A; Weight 79.38 kg; vg1 Height 5 ft. 2 in. (157.48 cm); Pain 10/10; 17:47 BP 142 / 80; Pulse 70; Resp 16; Pulse Ox 99% on R/A; Pain 3/10; bm7 15:12 Body Mass Index 32.01 (79.38 kg, 157.48 cm) vg1 ED Course: 13:22 Patient arrived in ED. rg4 13:47 Shankar Chen NP is PHCP. pm1 13:47 Dave Palafox MD is Attending Physician. pm1 15:15 Triage completed. vg1 15:15 Arm band placed on. vg1 15:20 COVID swab sent to lab. vg1 15:58 Chest Single View XRAY In Process Unspecified. EDMS 16:02 SARS-COV-2 RT PCR (Document "Date of Onset" if Symptomatic) Sent. kc6 17:05 Marcia Richard, RN is Primary Nurse. bm7 17:47 Patient has correct armband on for positive identification. Call light in reach. Client bm7 placed on continuous cardiac and pulse oximetry monitoring. NIBP monitoring applied. Diet: Patient given a regular meal tray. Patient given water. Tolerated well. 17:47 No provider procedures requiring assistance completed. Patient did not have IV access bm7 during this emergency room visit. Administered Medications: 17:31 Drug: Albuterol 2.5 mg Route: Inhalation; bm7 17:31 Drug: Tussionex Pennkinetic ER (chlorpheniramine-hydrocodone) Suspension 5 ml Route: PO;bm7 Medication: 17:47 VIS not applicable for this client. bm7 Outcome: 17:13 Discharge ordered by . pm1 17:47 Discharged to home ambulatory. bm7 17:47 Condition: improved 17:47 Discharge instructions given to patient, Instructed on discharge instructions, follow up and referral plans. medication usage, Demonstrated understanding of instructions, follow-up care, medications, Prescriptions given X 2. 17:50 Patient left the ED. bm7 Signatures: Dispatcher [employer] EDMS Shankar Chen NP INSTALLER HELPER pm1 Mony Colvin rg4 Eryn Colvin RN RN vg1 Marcia Richard, RN RN bm7 Patricia Ventura kc6
--- NOTE | 2021-11-14 17:14 | EDPHYS ---
Physician Documentation [facility] Name: Vicky Walker Age: 61 yrs Sex: Female : 1960 Arrival Date: 11/14/2021 Time: 13:22 Bed 10 Private MD: ED Physician Dave Palafox HPI: 11/14 16:39 This 61 yrs old Female presents to ER via Ambulatory with complaints of Congestion, pm1 Knee Pain. 16:39 The patient or guardian reports cough, with no sputum. Onset: The symptoms/episode pm1 began/occurred 3 day(s) ago. Severity of symptoms: in the emergency department the symptoms are unchanged. Modifying factors: The symptoms are alleviated by nothing, the symptoms are aggravated by nothing. Associated signs and symptoms: Pertinent positives: diarrhea, Shortness of breath, Pertinent negatives: chest pain, ear ache, fever, rhinorrhea, sore throat. The patient has not experienced similar symptoms in the past. The patient has not recently seen a physician, But missed her appointment today for evaluation of her right knee pain. Patient's right knee pain has been present for multiple years. Historical: - Allergies: 15:15 PENICILLINS; vg1 15:15 Toradol; vg1 - Home Meds: 15:15 Flonase 50 mcg/actuation Nasal spsn 1 spray 2 times per day [Active]; omeprazole 20 mg vg1 Oral cpDR 1 cap once daily [Active]; Xanax 1 mg Oral tab 1 tab 3 times per day [Active]; lisinopril 10 mg Oral tab once daily [Active]; loratadine 10 mg Oral tab 1 tab once daily [Active]; - PMHx: 15:15 allergies; Anxiety; Chronic pain; GERD; Hypertension; psoriasis; vg1 - Immunization history:: Client reports receiving the 2nd dose of the Covid vaccine. - Social history:: Smoking status: Patient reports the use of cigarette tobacco products, smokes one-half pack cigarettes per day. ROS: 16:39 Constitutional: Negative for fever, chills, and weight loss, Cardiovascular: Negative pm1 for chest pain, palpitations, and edema. 16:39 Abdomen/GI: Negative for abdominal pain, nausea, vomiting, diarrhea, and constipation, Back: Negative for injury and pain. 16:39 Skin: Negative for injury, rash, and discoloration, Neuro: Negative for headache, weakness, numbness, tingling, and seizure. 16:39 ENT: Positive for ear pain, nasal discharge, Nasal congestion. 16:39 Respiratory: Positive for cough, shortness of breath. 16:39 MS/extremity: Positive for pain, of the right knee. 16:39 All other systems are negative. Exam: 16:39 Constitutional: This is a well developed, well nourished patient who is awake, alert, pm1 and in no acute distress. Head/Face: Normocephalic, atraumatic. 16:39 Skin: Warm, dry with normal turgor. Normal color with no rashes, no lesions, and no evidence of cellulitis. 16:39 Eyes: Exam is negative for acute changes, Periorbital structures: no acute changes, Pupils: no acute changes, Extraocular movements: no acute changes, Conjunctiva: no acute changes, no injection. 16:39 ENT: External ear(s): are unremarkable, Ear canal(s): are normal, TM's: are normal, Mouth: no acute changes, Lips: normal, moist, Oral mucosa: normal, pink and intact, moist. 16:39 Cardiovascular: Exam negative for acute changes, Rate: normal, Rhythm: regular, Pulses: no pulse deficits are appreciated, Heart sounds: normal. 16:39 Respiratory: Exam negative for acute changes, respiratory distress, shortness of breath, Breath sounds: are clear throughout. 16:39 Musculoskeletal/extremity: Extremities: grossly normal except: noted in the right knee: tenderness. 16:39 Neuro: Exam negative for acute changes, Orientation: is normal, Mentation: is normal, Motor: is normal, moves all fours, Sensation: is normal, no obvious gross deficits. Vital Signs: 15:12 BP 134 / 78; Pulse 78; Resp 16; Temp 98.1(TE); Pulse Ox 97% on R/A; Weight 79.38 kg; vg1 Height 5 ft. 2 in. (157.48 cm); Pain 10/10; 17:47 BP 142 / 80; Pulse 70; Resp 16; Pulse Ox 99% on R/A; Pain 3/10; bm7 15:12 Body Mass Index 32.01 (79.38 kg, 157.48 cm) vg1 MDM: 16:39 Patient medically screened. pm1 17:12 Data reviewed: vital signs. Data interpreted: Pulse oximetry: on room air is 97 %. pm1 Interpretation: normal. Counseling: I had a detailed discussion with the patient and/or guardian regarding: the historical points, exam findings, and any diagnostic results supporting the discharge/admit diagnosis, lab results, radiology results, the need for outpatient follow up, to return to the emergency department if symptoms worsen or persist or if there are any questions or concerns that arise at home. 17:15 ED course: Patient offered x-ray for her right knee pain. Patient refused because she pm1 had an appointment for her right knee pain today. She has had x-rays in the past for the same right knee pain with evaluation by Dr. Carrasco. Patient reports she was supposed to go to [facility] today for an evaluation of her knee pain. Patient missed her ride.. 11/14 15:19 Order name: SARS-COV-2 RT PCR (Document "Date of Onset" if Symptomatic); Complete Time: vg1 16:48 11/14 15:19 Order name: Chest Single View XRAY; Complete Time: 16:26 vg1 Administered Medications: 17:31 Drug: Albuterol 2.5 mg Route: Inhalation; bm7 17:31 Drug: Tussionex Pennkinetic ER (chlorpheniramine-hydrocodone) Suspension 5 ml Route: PO;bm7 Disposition Summary: 11/14/21 17:13 Discharge Ordered Location: Home pm1 Problem: new pm1 Symptoms: have improved pm1 Condition: Stable pm1 Diagnosis - Acute upper respiratory infection, unspecified pm1 - Pain in right knee pm1 Followup: pm1 - With: Emergency Department - When: As needed - Reason: Worsening of condition Followup: pm1 - With: Private Physician - When: 2 - 3 days - Reason: Recheck today's complaints, Continuance of care, Re-evaluation by your physician Discharge Instructions: - Discharge Summary Sheet pm1 - Antibiotic Resistance pm1 - Upper Respiratory Infection, Adult pm1 - Chronic Knee Pain, Adult pm1 Forms: - Medication Reconciliation Form pm1 - Thank You Letter pm1 - Antibiotic Education pm1 - Prescription Opioid Use pm1 Prescriptions: - Tessalon Perles 100 mg Oral Capsule - take 1 capsule by ORAL route every 8 hours As needed; 15 capsule; Refills: 0, pm1 Product Selection Permitted - Tylenol-Codeine #3 300 mg-30 mg Oral - take 2 tablet by ORAL route every 6 hours As needed; 20 tablet; Refills: 0, pm1 Product Selection Permitted Addendum: 11/15/2021 20:11 Co-signature as Attending Physician, Dave Palafox MD. r n Signatures: Dispatcher [employer] EDDave Reyes MD MD rn Marinas, Patrick, VALENTIN TEST HOLE DRILLER pm1 Eryn Colvin RN RN vg1 Marcia Richard, RN RN bm7
[2021-11-14] MEDS ORDERED: ALBUTEROL 2.5 MG/3 ML NEB SOL ONE (17:36)
[2021-11-14] MEDS ORDERED: HYDROCODONE/CHLORPHEN 5 ML/OSYR ONE (17:36)
[2021-11-15 07:30] VITALS: TEMP 98.1
[2021-11-15 07:32] VITALS: BP 142/80; O2SAT 99
== END 2021-11-14 17:50 | disposition home or self-care (01) ==
LOC: ER 13:19
DX: J06.9 Acute upper respiratory infection, unspecified (principal); M25.561 Pain in right knee; I10 Essential (primary) hypertension; F17.210 Nicotine dependence, cigarettes, uncomplicated; Z20.822 Contact with and (suspected) exposure to COVID-19; Z88.0 Allergy status to penicillin; Z88.5 Allergy status to narcotic agent
CPT/HCPCS: 71045; 99284; U0003

== ENCOUNTER 2022-03-07 12:08 | Emergency (ER) | payer OTHER ==
--- OUTSIDE RECORDS SUMMARY | 2022-03-07 12:12 | XMS REPORT | Continuity of Care Document ---
:1960 Author Organization [facility] t Address [address] [place] [place] [address] Care Team Providers Name Role Phone Rob Torres MD Primary Care Physician [phone] [facility] HEATH Attending Clinician Unavailable DANIEL BAL Attending Clinician Unavailable Clover Heath MD Attending Clinician Rd Attending Clinician Unavailable Daniel Garner Attending Clinician Doctor Unassigned, [place] Attending Clinician Unavailable SHAKILA LUEVANO K.H. Attending Clinician Unavailable Shakila Luevano MD K.H. Attending Clinician Fernando Lopez MD Attending Clinician Nidia Vaughn Attending Clinician CARLOS MAYO Attending Clinician Unavailable MARYLOU SORIA Attending Clinician Unavailable CLOVER HEATH Admitting Clinician Unavailable Rd Admitting Clinician Unavailable SHAKILA LUEVANO K.H. Admitting Clinician Unavailable MARYLOU SORIA Admitting Clinician Unavailable Payers Payer Name Policy Type Policy Number Effective Date Expiration Date Brain kim [employer] [facility]EN PLUS [id number] 2020 CLASSIC/VALUE 00:00:[address] [facility] [id number] 2016 MEDICAID 00:00:00 MEDICARE PART A \T\ [id number] 2011 B 00:00:00 MEDICAID [facility] [id number] 2010 00:00:00 WELLMED/UHC DUAL [id number] 2022 COMP CHOICE PPO 00:00:00 DSNP [employer] CHOICE [id number] 2021 00:00:00 [employer] (MEDICARE [id number] REPLACEMENT/ADVANTA GE - PPO) [facility] [id number] 2016 [facility] (MEDICAID 00:00:00 HMO) WELLCARE (MEDICARE [id number] 2021 REPLACEMENT/ADVANTA 00:00:00 GE - PPO) Problems Condition Condition Condition Status Onset Resolution Last Treating Co mments Source Name Details Category Date Date Treatment Clinician Date Primary Primary Disease Active Overview: Univ ers osteoarthr osteoarthr 1-10 Formattin ity of itis of itis of 00:00: g of this [place] right knee right knee 00 note Me dical might be Branch different from the original. Added automatic ally from request for surgery [id number] Fracture, Fracture, Disease Active Met Ezekiel Ocampo, 2-24 st left, left, 00:00: Hospita closed closed 00 l Obesity Obesity Disease Active Univers (BMI (BMI 5-05 ity of 30-39.9) 30-39.9) 00:00: [place] 00 [facility] Branch Chest pain Chest pain Disease Active U nivers 5-04 ity of 00:00: 00 Medical Branch Right foot Right foot Disease Active 2015-03 U nivers pain pain 2-14 ity of 00:00: [place] 00 Medical Branch Left Problem Active CHRISTU [...] [place] 00 Medical Branch Penicill Propensi Active Rash Method i ins ty to 830 st adverse 00:00: Hospita reaction 00 l s to drug PENICI Allergy Active Unknown KEN U LLIN AND to 5-24 S DERIVATI substanc 00:00: Health VES* e 00 Social History Social Habit Start Date Stop Date Quantity Comments Source Exposure to Not sure University SARS-CoV-2 (event) [facility] History of tobacco Cigarette Smoker [facility] Alcohol intake 2019-05-25 2019-05-25 0 /d [facility]00 [facility] Cigarettes smoked 2019-05-25 2019-05-[address] current (pack per 00:00:00 00:00:00 Hospita l day) - Reported Cigarette 2019-05-25 2019-05-25 [facility] 00:[facility]:00:00 Hospital Tobacco use and 2017-09-24 2017-09-24 Smokeless Universit y of exposure 00:00:00 00:00:00 tobacco non-user [facility] Sex Assigned At [birth year] [facility] 00:[facility]:00 Hospital Smoking Status Start Date Stop Date Source Current Light tobacco 2019-02-24 18:35:00 [facility] smoker Smokes tobacco daily 2017-09-24 00:00:00 Univers ity of [facility] Medications Ordered Filled Start Stop Current Ordering Indication Dosage Frequency Signature Comments Components Source Medication Medication Date Date Medication? Clinician (SIG) Name Name DICLOFENAC 2022-0 Yes [id number] TAKE 1 Univers 75 mg EC 7-12 9109 TABLET BY ity of tablet 00:00: MOUTH [place] 00 TWICE A Medical DAY WITH Branch MEALS DICLOFENAC 2021-0 Yes [id number] TAKE 1 Univers 75 mg EC 7-12 9109 TABLET BY ity of tablet 00:00: MOUTH [place] 00 TWICE A Medical DAY WITH Branch MEALS diclofenac 2021-0 Yes [id number] 75mg Take 1 Univers 75 mg EC 5-23 9109 tablet by ity of tablet 00:00: mouth 2 [place] 00 (two) Medical times Branch daily with meals. diclofenac 2021-0 2021- No [id number] 75mg Take 1 Univers 75 mg EC 5-23 07-12 9109 tablet by ity o f tablet 00:00: 00:00 mouth 2 [place] 00 :00 (two) Medical times Branch daily with meals. aspirin 81 Yes 81mg Take 81 mg U nivers mg chewable 3-10 by mouth ity of tablet 15:33: daily. [address] Branch lisinopril Yes Take by Univ ers 10 mg 3-10 mouth ity of tablet 15:33: daily. [address] Branch albuterol Yes 1{ampul Use 1 Univ ers 1.25 mg/3 3-10 e} Ampule as ity o f mL 15:33: directed [place] nebulizer every 6 Medical solution (six) Branch hours as needed for Wheezing. ALPRAZolam Yes 1mg Take 1 mg Un lala (XANAX) 1 3-10 by mouth 3 ity of mg tablet 15:33: (three) [address] daily. Branch omeprazole 0 Yes 40mg Take 40 mg U nivers 40 mg 3-10 by mouth ity of capsule 15:33: daily. [address] Branch loratadine 0 Yes 10mg Take 10 mg U nivers 10 mg 3-10 by mouth ity of tablet 15:33: daily. [address] Branch aspirin 81 0 Yes 81mg Take 81 mg U nivers mg chewable 3-10 by mouth ity of tablet 15:33: daily. [address] Branch lisinopril 0 Yes Take by Univ ers 10 mg 3-10 mouth ity of tablet 15:33: daily. [address] Branch albuterol 0 Yes 1{ampul Use 1 Univ ers 1.25 mg/3 3-10 e} Ampule as ity o f mL 15:33: directed [place] nebulizer 56 every 6 Medical solution (six) Branch hours as needed for Wheezing. ALPRAZolam 0 Yes 1mg Take 1 mg Un lala (XANAX) 1 3-10 by mouth 3 ity of mg tablet 15:33: (three) [place] [address] times Medical daily. Branch omeprazole 2021-0 Yes 40mg Take 40 mg U nivers 40 mg 3-10 by mouth ity of capsule 15:33: daily. [address] Branch loratadine 0 Yes 10mg Take 10 mg U nivers 10 mg 3-10 by mouth ity of tablet 15:33: daily. [address] Branch aspirin 81 0 Yes 81mg Take 81 mg U nivers mg chewable 3-10 by mouth ity of tablet 15:33: daily. [address] Branch lisinopril 0 Yes Take by Univ ers 10 mg 3-10 mouth ity of tablet 15:33: daily. [address] Branch albuterol 0 Yes 1{ampul Use 1 Univ ers 1.25 mg/3 3-10 e} Ampule as ity o f mL 15:33: directed [place] nebulizer every 6 Medical solution (six) Branch hours as needed for Wheezing. ALPRAZolam 0 Yes 1mg Take 1 mg Un lala (XANAX) 1 3-10 by mouth 3 ity of mg tablet 15:33: (three) [place] [address] times Medical daily. Branch omeprazole 2021-0 Yes 40mg Take 40 mg U nivers 40 mg 3-10 by mouth ity of capsule 15:33: daily. [address] Branch loratadine 2021-0 Yes 10mg Take 10 mg U nivers 10 mg 3-10 by mouth ity of tablet 15:33: daily. [address] Branch aspirin 81 2021-0 Yes 81mg Take 81 mg U nivers mg chewable 3-10 by mouth ity of tablet 15:33: daily. [address] Branch lisinopril 2021-0 Yes Take by Univ ers 10 mg 3-10 mouth ity of tablet 15:33: daily. [address] Branch albuterol 0 Yes 1{ampul Use 1 Univ ers 1.25 mg/3 3-10 e} Ampule as ity o f mL 15:33: directed [place] nebulizer 56 every 6 Medical solution (six) Branch hours as needed for Wheezing. ALPRAZolam 0 Yes 1mg Take 1 mg Un lala (XANAX) 1 3-10 by mouth 3 ity of mg tablet 15:33: (three) [place] [address] times Medical daily. Branch omeprazole 0 Yes 40mg Take 40 mg U nivers 40 mg 3-10 by mouth ity of capsule 15:33: daily. [address] Branch loratadine 0 Yes 10mg Take 10 mg U nivers 10 mg 3-10 by mouth ity of tablet 15:33: daily. [address] aspirin 81 0 Yes 81mg Take 81 mg U nivers mg chewable 3-10 by mouth ity of tablet 15:33: daily. [address] Branch lisinopril 0 Yes Take by Univ ers 10 mg 3-10 mouth ity of tablet 15:33: daily. [address] Branch albuterol 0 Yes 1{ampul Use 1 Univ ers 1.25 mg/3 3-10 e} Ampule as ity o f mL 15:33: directed [place] nebulizer every 6 Medical solution (six) Branch hours as needed for Wheezing. ALPRAZolam 0 Yes 1mg Take 1 mg Un lala (XANAX) 1 3-10 by mouth 3 ity of mg tablet 15:33: (three) [address] Medical daily. Branch omeprazole 0 Yes 40mg Take 40 mg U nivers 40 mg 3-10 by mouth ity of capsule 15:33: daily. [address] Branch loratadine 2021-0 Yes 10mg Take 10 mg U nivers 10 mg 3-10 by mouth ity of tablet 15:33: daily. [address] aspirin 81 2021-0 Yes 81mg Take 81 mg U nivers mg chewable 3-10 by mouth ity of tablet 15:33: daily. [address] Branch lisinopril 2021-0 Yes Take by Univ ers 10 mg 3-10 mouth ity of tablet 15:33: daily. [place] 56 Medical Branch albuterol 2021-0 Yes 1{ampul Use 1 Univ ers 1.25 mg/3 3-10 e} Ampule as ity o f mL 15:33: directed [place] nebulizer every 6 Medical solution (six) Branch hours as needed for Wheezing. ALPRAZolam 2021-0 Yes 1mg Take 1 mg Un lala (XANAX) 1 3-10 by mouth 3 ity of mg tablet 15:33: (three) [place] [address] times Medical daily. Branch omeprazole 2021-0 Yes 40mg Take 40 mg U nivers 40 mg 3-10 by mouth ity of capsule 15:33: daily. [place] [address] Medical Branch loratadine 2021-0 Yes 10mg Take 10 mg U nivers 10 mg 3-10 by mouth ity of tablet 15:33: daily. [place] [address] Medical Branch diclofenac 2021-0 Yes 75mg Take 1 Unive rs 75 mg EC 2-09 tablet by ity of tablet 00:00: mouth 2 [place] [address] (two) Medical times Branch daily with meals. diclofenac 2-0 Yes 75mg Take 1 Unive rs 75 mg EC 2-09 tablet by ity of tablet 00:00: mouth 2 [place] (two) Medical times Branch daily with meals. diclofenac 2-0 Yes 75mg Take 1 Unive rs 75 mg EC 2-09 tablet by ity of tablet 00:00: mouth 2 [place] (two) Medical times Branch daily with meals. diclofenac 2-0 Yes 75mg Take 1 Unive rs 75 mg EC 2-09 tablet by ity of tablet 00:00: mouth 2 [place] (two) Medical times Branch daily with meals. diclofenac 2-0 Yes 75mg Take 1 Unive rs 75 mg EC 2-09 tablet by ity of tablet 00:00: mouth 2 [place] (two) Medical times Branch daily with meals. diclofenac 2022-0 Yes 75mg Take 1 Unive rs 75 mg EC 2-09 tablet by ity of tablet 00:00: mouth 2 [place] (two) Medical times Branch daily with meals. diclofenac 2021-0 2022- No 75mg Take 1 Univ ers 75 mg EC 2-09 05-23 tablet by ity o f tablet 00:00: 00:00 mouth 2 [place] 00 :00 (two) Medical times Branch daily with meals. atorvastati 0 Yes 20mg Take 20 mg Univers n 20 mg 2-03 by mouth ity of tablet 14:05: daily. [address] atorvastati 0 Yes 20mg Take 20 mg Univers n 20 mg 2-03 by mouth ity of tablet 14:05: daily. [address] atorvastati 0 Yes 20mg Take 20 mg Univers n 20 mg 2-03 by mouth ity of tablet 14:05: daily. [address] atorvastati 0 Yes 20mg Take 20 mg Univers n 20 mg 2-03 by mouth ity of tablet 14:05: daily. [address] atorvastati 0 Yes 20mg Take 20 mg Univers n 20 mg 2-03 by mouth ity of tablet 14:05: daily. [address] atorvastati 0 Yes 20mg Take 20 mg Univers n 20 mg 2-03 by mouth ity of tablet 14:05: daily. [address] atorvastati 0 Yes 20mg Take 20 mg Univers n 20 mg 2-03 by mouth ity of tablet 14:05: daily. [address] atorvastati 0 Yes 20mg Take 20 mg Univers n 20 mg 2-03 by mouth ity of tablet 14:05: daily. [address] atorvastati 0 Yes 20mg Take 20 mg Univers n 20 mg 2-03 by mouth ity of tablet 14:05: daily. [address] traMADoL 50 0 Yes [id number] 50mg [...] (scale 7-10). Indication s: acute pain predniSONE 2020-0 Yes prednisone M ethodi (DELTASONE) [...] tablet 49 tablet,del l ayed release busPIRone 2020-0 Yes buspirone [facility] (BUSPAR) 10 3-24 [...] 13:54: tablet Hospita tablet 49 l albuterol 2020-0 Yes albuterol [facility] (PROAIR 3-[address] HFA) 90 13:54: HFA 90 Hospita mcg/actuati 49 mcg/actuat l on inhaler ion aerosol inhaler predniSONE 2020-0 Yes prednisone M ethodi (DELTASONE) [...] tablet 49 tablet,del l ayed release busPIRone 2020-0 Yes buspirone [facility] (BUSPAR) 10 3-24 [...] 20 MG 13:54: Hospita tablet 49 l predniSONE 2020-0 Yes prednisone M ethodi (DELTASONE) 3-[address] 10 mg 13:54: tablet Hospita tablet 49 l lisinopriL 2020-0 Yes lisinopril M ethodi (PRINIVIL) 3-[address] 10 mg 13:54: tablet Hospita tablet 49 l aspirin 81 2020-0 Yes 81mg Chew 81 Meth zeyad mg chewable 3-[address] tablet 13:54: Hospita 49 l ipratropium 2020-0 Yes ipratropiu Methodi -albuteroL 3-[address] (DUO-NEB) 13:54: mg-albuter Ho spita 0.5-2.5 49 ol 3 mg l mg/3 mL (2.5 mg nebulizer base)/3 mL nebulizati on soln diclofenac 2020-0 Yes diclofenac M ethodi (VOLTAREN) 3-[address] 75 MG EC 13:54: mg Hospita tablet 49 tablet,del l ayed release busPIRone 2020-0 Yes buspirone [facility] (BUSPAR) 10 3-24 [...] 13:54: tablet Hospita tablet 49 l albuterol 2020-0 Yes albuterol [facility] (PROAIR 3-[address] HFA) 90 13:54: HFA 90 Hospita mcg/actuati 49 mcg/actuat l on inhaler ion aerosol inhaler gabapentin 2020-0 Yes gabapentin M ethodi (NEURONTIN) 3-[address] 300 mg 13:54: capsule Hospita capsule 49 l ALPRAZolam 2020-0 Yes alprazolam M ethodi (XANAX) 3-[address] 0.25 MG 13:54: tablet Hospita tablet 49 l amLODIPine 2020-0 Yes amlodipine M ethodi (NORVASC) 3-[address] 10 mg 13:54: tablet Hospita tablet 49 l albuterol 2020-0 Yes albuterol [facility] (PROAIR 3-[address] HFA) 90 13:54: HFA 90 Hospita mcg/actuati 49 mcg/actuat l on inhaler ion aerosol inhaler Methylpredn 2019 No 1 As KEN U isolone 2-25 Directed S (Medrol 18:52: Health Dose-Pack) 00 21 Tab/Dspk TAB Methylpredn 2019- No 1 KEN U isolone 2-25 S - (Medrol 18:52: [facility] Dose-Pack) 00 Memoria 21 Tab/Dspk l TAB Hospita l ALPRAZolam 2019-1 Yes 1mg Take 1 mg Un lala (XANAX) 1 2-13 by mouth 3 ity of mg tablet 13:41: (three) [place] 15 times Medical daily. Branch omeprazole 2018-03 Yes 40mg Take 40 mg U nivers 40 mg 2-13 by mouth ity of capsule 13:41: daily. [address] loratadine 2018-03 Yes 10mg Take 10 mg U nivers 10 mg 2-13 by mouth ity of tablet 13:41: daily. [address] aspirin 81 2018-03 Yes 81mg Take 81 mg U nivers mg chewable 2-13 by mouth ity of tablet 13:41: daily. [address] lisinopril 2018-03 Yes Take by Univ ers 10 mg 2-13 mouth ity of tablet 13:41: daily. [address] albuterol 2018-03 Yes 1{ampul Use 1 Univ ers 1.25 mg/3 2-13 e} Ampule as ity o f mL 13:41: directed [place] nebulizer 15 every 6 Medical solution (six) Branch hours as needed for Wheezing. ALPRAZolam 2018-03 Yes 1mg Take 1 mg Un lala (XANAX) 1 2-13 by mouth 3 ity of mg tablet 13:41: (three) [place] [address] times Medical daily. Branch omeprazole 2018-03 Yes 40mg Take 40 mg U nivers 40 mg 2-13 by mouth ity of capsule 13:41: daily. [address] loratadine 2018-03 Yes 10mg Take 10 mg U nivers 10 mg 2-13 by mouth ity of tablet 13:41: daily. [address] aspirin 81 2018-03 Yes 81mg Take 81 mg U nivers mg chewable 2-13 by mouth ity of tablet 13:41: daily. [address] lisinopril 2018-03 Yes Take by Univ ers 10 mg 2-13 mouth ity of tablet 13:41: daily. [address] albuterol 2018-03 Yes 1{ampul Use 1 Univ ers 1.25 mg/3 2-13 e} Ampule as ity o f mL 13:41: directed [place] nebulizer 15 every 6 Medical solution (six) Branch hours as needed for Wheezing. ALPRAZolam 2018-03 Yes 1mg Take 1 mg Un lala (XANAX) 1 2-13 by mouth 3 ity of mg tablet 13:41: (three) [place] 15 times Medical daily. Branch omeprazole 2018-03 Yes 40mg Take 40 mg U nivers 40 mg 2-13 by mouth ity of capsule 13:41: daily. [address] Branch loratadine 2018-03 Yes 10mg Take 10 mg U nivers 10 mg 2-13 by mouth ity of tablet 13:41: daily. [address] aspirin 81 2018-03 Yes 81mg Take 81 mg U nivers mg chewable 2-13 by mouth ity of tablet 13:41: daily. [address] Branch lisinopril 2018-03 Yes Take by Univ ers 10 mg 2-13 mouth ity of tablet 13:41: daily. [address] Branch albuterol 2018-03 Yes 1{ampul Use 1 Univ ers 1.25 mg/3 2-13 e} Ampule as ity o f mL 13:41: directed [place] nebulizer 15 every 6 Medical solution (six) Branch hours as needed for Wheezing. benzonatate 2018-03 Yes [id number] 100mg Take 1 Univers 100 mg 2-11 capsule by ity of capsule 00:00: mouth 3 [place] 00 (three) Medical times Branch daily as needed for Cough. benzonatate 2018-03 Yes [id number] 100mg Take 1 Univers 100 mg 2-11 capsule by ity of capsule 00:00: mouth 3 [place] 00 (three) Medical times Branch daily as needed for Cough. benzonatate 2018-03 Yes [id number] 100mg Take 1 Univers 100 mg 2-11 capsule by ity of capsule 00:00: mouth 3 [place] 00 (three) Medical times Branch daily as needed for Cough. benzonatate 2018-03 Yes [id number] 100mg Take 1 Univers 100 mg 2-11 capsule by ity of capsule 00:00: mouth 3 [place] 00 (three) Medical times Branch daily as needed for Cough. benzonatate 2018-03 Yes [id number] 100mg Take 1 Univers 100 mg 2-11 capsule by ity of capsule 00:00: mouth 3 [place] 00 (three) Medical times Branch daily as needed for Cough. benzonatate 2018-03 Yes [id number] 100mg Take 1 Univers 100 mg 2-11 capsule by ity of capsule 00:00: mouth 3 [place] 00 (three) Medical times Branch daily as needed for Cough. benzonatate 2018-03 Yes [id number] 100mg Take 1 Univers 100 mg 2-11 capsule by ity of capsule 00:00: mouth 3 [place] 00 (three) Medical times Branch daily as needed for Cough. benzonatate 2018-03 Yes [id number] 100mg Take 1 Univers 100 mg 2-11 capsule by ity of capsule 00:00: mouth 3 [place] 00 (three) Medical times Branch daily as needed for Cough. benzonatate 2018-03 Yes [id number] 100mg Take 1 Univers 100 mg 2-11 [...] for Nausea and Vomiting (N/V). ZOFRAN ODT 0 Yes 4mg Take 1 Unive rs 4 mg 7-24 tablet by ity of disintegrat 00:00: mouth [place] ing tablet 00 every 8 Medica l (eight) Branch hours as needed for Nausea and Vomiting (N/V). ZOFRAN ODT 2016-0 Yes 4mg Take 1 Unive rs 4 [...] Immunizations Ordered Filled Immunization Date Status Comments [facility] e Immunization Name Name SARS-COV-2 COVID-19 2020-10-15 Completed Unive rsity of PFIZER VACCINE 00:00:00 [facility] [place] [facility] SARS-COV-2 COVID-19 2020-10-15 Completed Unive rsity of PFIZER VACCINE 00:00:00 [facility] [place] [facility] SARS-COV-2 COVID-19 2020-10-15 Completed Unive rsity of PFIZER VACCINE 00:00:00 [facility] [place] [facility] SARS-COV-2 COVID-19 2020-10-15 Completed Unive rsity of PFIZER VACCINE 00:00:00 [facility] [place] [facility] SARS-COV-2 COVID-19 2020-10-15 Completed Unive rsity of PFIZER VACCINE 00:00:00 [facility] [place] [facility] SARS-COV-2 COVID-19 2020-10-15 Completed Unive rsity of PFIZER VACCINE 00:00:00 [facility] [place] [facility] SARS-COV-2 COVID-19 2020-10-15 Completed Unive rsity of PFIZER VACCINE 00:00:00 [facility] Branch SARS-COV-2 COVID-19 2020-10-15 Completed Unive rsity of PFIZER VACCINE 00:00:00 [facility] [place] [facility] SARS-COV-2 COVID-19 2020-10-15 Completed Unive rsity of PFIZER VACCINE 00:00:00 [facility] Branch SARS-COV-2 COVID-19 2020-09-22 Completed Unive rsity of PFIZER VACCINE 00:00:00 [facility] Branch SARS-COV-2 COVID-19 2020-09-22 Completed Unive rsity of PFIZER VACCINE 00:00:00 [facility] Branch SARS-COV-2 COVID-19 2020-09-22 Completed Unive rsity of PFIZER VACCINE 00:00:00 [facility] [place] [facility] SARS-COV-2 COVID-19 2020-09-22 Completed Unive rsity of PFIZER VACCINE 00:00:00 [facility] Branch SARS-COV-2 COVID-19 2020-09-22 Completed Unive rsity of PFIZER VACCINE 00:00:00 [facility] [place] [facility] SARS-COV-2 COVID-19 2020-09-22 Completed Unive rsity of PFIZER VACCINE 00:00:00 [facility] [place] [facility] SARS-COV-2 COVID-19 2020-09-22 Completed Unive rsity of PFIZER VACCINE 00:00:00 [facility] [place] [facility] SARS-COV-2 COVID-19 2020-09-22 Completed Unive rsity of PFIZER VACCINE 00:00:00 [facility] [place] [facility] SARS-COV-2 COVID-19 2020-09-22 Completed Unive rsity of PFIZER VACCINE 00:00:00 [facility] [place] [facility] Vital Signs Vital Name Observation Time Observation Value Comments Source Body Temperature 2019-02-24 19:15:00 98.0 [degF] [facility] [employer] Heart Rate 2019-02-24 19:15:00 94 /min [facility] Respiratory rate 2019-02-24 19:15:00 20 /min [facility] BP Systolic 2019-02-24 19:15:00 134 mm[Hg] [facility] BP Diastolic 2019-02-24 19:15:00 71 mm[Hg] [facility] [employer] Heart Rate 2019-02-24 18:32:00 94 /min [facility] [employer] Respiratory rate 2019-02-24 18:32:00 20 /min [facility] [employer] BP Systolic 2019-02-24 18:32:00 134 mm[Hg] [facility] [employer] BP Diastolic 2019-02-24 18:32:00 71 mm[Hg] [facility] [employer] Weight 2019-02-24 18:32:00 180 [lb_av] [facility] [employer] BMI (Body Mass Index) 2019-02-24 18:32:00 32.9 kg/m2 [facility] [employer] Procedures Procedure Date / Time Performing Clinician Source Performed INSURANCE CORRESPONDENCE 2021-05-12 06:01:00 Doctor Unassigned, [facility] [place] [facility] Plan of Care Planned Activity Planned Date Details Comments Source Future Scheduled Test 2022-02-21 COVID-19 VACCINE (#1) [facility] 20:21:57 [code = COVID-19 Hospital VACCINE (#1)] Future Scheduled Test 2022-02-21 Pneumococcal Vaccine: [facility] 20:21:57 Pediatrics (0 to 5 Hospital Years) and At-Risk Patients (6 to 64 Years) (1 - PCV) [code = Pneumococcal Vaccine: Pediatrics (0 to 5 Years) and At-Risk Patients (6 to 64 Years) (1 - PCV)] Future Scheduled Test 2022-02-21 Hepatitis C screening [facility] 20:21:57 (procedure) [code = Hospital [id number]] Future Scheduled Test 2022-02-21 Screening for [facility] 20:21:57 malignant neoplasm of Hospit al cervix (procedure) [code = 802614819] Future Scheduled Test 2022-02-21 BREAST CANCER [facility] 20:21:57 SCREENING [code = Hospital BREAST CANCER SCREENING] Future Scheduled Test 2022-02-21 COLONOSCOPY SCREENING [facility] 20:21:57 [code = COLONOSCOPY Hospital SCREENING] Future Scheduled Test 2022-02-21 SHINGLES VACCINES (1 [facility] 20:21:57 of 2) [code = SHINGLES Hospi angel VACCINES (1 of 2)] Future Scheduled Test 2022-02-21 INFLUENZA VACCINE M ethodist 20:21:57 [code = INFLUENZA Hospital VACCINE] Future Scheduled Test 2021-10-31 HEPATITIS B VACCINES [facility] 12:20:25 (1 of 3 - 3-dose Hospital series) [code = HEPATITIS B VACCINES (1 of 3 - 3-dose series)] Future Scheduled Test 2021-10-31 COVID-19 VACCINE (#1) [facility] 12:20:25 [code = COVID-19 Hospital VACCINE (#1)] Future Scheduled Test 2021-10-31 Pneumococcal Vaccine: [facility] 12:20:25 Pediatrics (0 to 5 Hospital Years) and At-Risk Patients (6 to 64 Years) (1 - PCV) [code = Pneumococcal Vaccine: Pediatrics (0 to 5 Years) and At-Risk Patients (6 to 64 Years) (1 - PCV)] Future Scheduled Test 2021-10-31 Hepatitis C screening [facility] 12:20:25 (procedure) [code = Hospital [id number]] Future Scheduled Test 2021-10-31 Screening for [facility] 12:20:25 malignant neoplasm of Hospit al cervix (procedure) [code = 183654562] Future Scheduled Test 2021-10-31 BREAST CANCER [facility] 12:20:25 SCREENING [code = Hospital BREAST CANCER SCREENING] Future Scheduled Test 2021-10-31 COLONOSCOPY SCREENING [facility] 12:20:25 [code = COLONOSCOPY Hospital SCREENING] Future Scheduled Test 2021-10-31 SHINGLES VACCINES (1 [facility] 12:20:25 of 2) [code = SHINGLES Hospi angel VACCINES (1 of 2)] Future Scheduled Test 2021-10-31 INFLUENZA VACCINE M ethodist 12:20:25 [code = INFLUENZA Hospital VACCINE] Future Scheduled Test 2021-10-25 HEPATITIS B VACCINES [facility] 09:31:21 (1 of 3 - 3-dose Hospital series) [code = HEPATITIS B VACCINES (1 of 3 - 3-dose series)] Future Scheduled Test 2021-10-25 COVID-19 VACCINE (#1) [facility] 09[facility]31:21 [code = COVID-19 Hospital VACCINE (#1)] Future Scheduled Test 2021-10-25 Pneumococcal Vaccine: [facility] 09:31:21 Pediatrics (0 to 5 Hospital Years) and At-Risk Patients (6 to 64 Years) (1 - PCV) [code = Pneumococcal Vaccine: Pediatrics (0 to 5 Years) and At-Risk Patients (6 to 64 Years) (1 - PCV)] Future Scheduled Test 2021-10-25 Hepatitis C screening [facility] 09:31:21 (procedure) [code = Hospital [id number]] Future Scheduled Test 2021-10-25 Screening for Metho dist 09:31:21 malignant neoplasm of Hospit al cervix (procedure) [code = 475816164] Future Scheduled Test 2021-10-25 BREAST CANCER Metho dist 09:31:21 SCREENING [code = Hospital BREAST CANCER SCREENING] Future Scheduled Test 2021-10-25 COLONOSCOPY SCREENING [facility] 09:31:21 [code = COLONOSCOPY Hospital SCREENING] Future Scheduled Test 2021-10-25 SHINGLES VACCINES (1 [facility] 09:31:21 of 2) [code = SHINGLES Hospi angel VACCINES (1 of 2)] Future Scheduled Test 2021-10-25 INFLUENZA VACCINE M ethodist 09:31:21 [code = INFLUENZA Hospital VACCINE] Future Scheduled Test Streptococcus pyogenes ESPERANZA - Andrew culture [code = [facility] 22932-6] Goal Patient referral [code RE HUMA Morales = [id number] ] [facility] Inst[facility] Eustachian Tube CHRISTUS - J asper Problems [facility] Instructions Eustachian Tube CHRISTUS - J asper Problems (DC) [facility] Encounters Start End Encounter Admission Attending Care Care Encounter Source Date/Time Date/Time Type Type Clinicians Facility Department ID 2021-04-05 Outpatient Issa HEATH [facility] SOR [id number] Univers 13:48:24 [facility]-03[facility]14 [facility] [id number] Univers 11:49:06 CLOVER odell [facility] 2020-12-30 Emergency [facility] [id number] Univers [facility]30 Emergency [facility] [id number] Univers 05:54:41 [facility] 2022-04-08 2022-04-08 Outpatient Issa HEATH [facility] [id number] Univers 14:00:00 14:00:00 CLOVER odell [facility] 2021-12-27 2021-12-27 Outpatient Issa HEATH [facility] [id number] Univers 08:30:00 08:30:00 CLOVER odell [facility] 2021-12-24 2021-12-24 Outpatient R MALLY [facility] [id number] Univers 14:45:00 14:45:00 DANIEL odell [facility] 2021-12-19 2021-12-19 [facility]phone [facility] 1.2.840.114 [id number] Univers 00:00:00 00:00:00 Clover LU 350.1.13.10 i ty of [place] [phone] Fl dical LETTY 198 [facility] 2021-11-25 2021-11-25 Outpatient FOG_Brown_B AOSM AOSM 544 4025-20 Traci 00:00:00 00:00:00 Trina [id number] [facility] 2021-11-14 2021-11-14 Outpatient FOG_Brown_B AOSM AOSM 544 4025-20 Traci 00:00:00 00:00:00 Trina [id number] Orth o[facility] 2021-11-11 2021-11-11 Outpatient FOG_Brown_B AOSM AOSM 544 4025-20 Traci 00:00:00 00:00:00 Trina [id number] Orth ope dic [facility] 2021-08-31 2021-08-31 [facility] 1.2.840.114 [id number] Univers 00:00:00 00:00:00 Daniel De La Paz HEALTH 350.1.13.10 it y of [place] 4.2.7.2.686 Bill as CHRISTINA?BLEA [phone] Fl diccholo SHAW [address] [place] [address] 2021-07-23 2021-07-23 [facility] 1.2.506.807 [id number] Univers 00:00:00 00:00:00 Clover Mandujano HEALTH 350.1.13.10 it y of [place] 4.2.7.2.686 Bill as CHRISTINA?BLEA [phone] Fl diccholo SHAW [address] [place] [address] 2021-06-06 2021-06-06 Outpatient FOG_Brown_B AOSM AOSM 544 4025-20 Traci 10:52:00 10:52:00 Trina [id number] [facility] 2021-06-06 2021-06-06 Outpatient FOG_Brown_B AOSM AOSM 544 4025-20 Traci 10:52:00 10:52:00 Trina [id number] Orth o[facility] dic [facility] 2021-06-06 2021-06-06 Outpatient FOG_Brown_B AOSM AOSM 544 4025-20 Traci 00:00:00 00:00:00 Trina [id number] Orth ope dic [facility] 2021-05-15 2021-05-15 [facility]phone [facility] 1.2.840.114 [id number] Univers 00:00:00 00:00:00 Clover L HEALTH 350.1.13.10 it y of [place] 4.2.7.2.686 Bill as CHRISTINA?BLEA [phone] [address] OFFICE [facility] 2021-05-12 2021-05-12 Orders Doctor YOLIS 1..840.114 [id number] Univers 00:00:00 00:00:00 Only Unassigned, TIN 350.1.13.10 ity of [place] [facility] 4.2.7.2.686 Bill as [phone] [address] 2021-05-11 2021-05-11 Outpatient R MALLY [facility] [id number] Univers 10:45:00 10:45:00 DANIEL ity of [facility] 2021-05-11 2021-05-11 Telephone [facility] 1.2.840.114 [id number] Univers 00:00:00 00:00:00 EternoGen 350.1.13.10 it y of [place] 4.2.7.2.686 Bill as CHRISTINA?BLEA [phone] Fl berta [address] OFFICE [facility] 2021-05-08 2021-05-08 Telephone [facility] 1.2.840.114 [id number] Univers 00:00:00 00:00:00 Clover L HEALTH 350.1.13.10 it y of [place] 4.2.7.2.686 Bill as CHRISTINA?BLEA [phone] Fl berta SHAW 198 [facility] OFFICE [facility] 2021-05-07 2021-05-07 [facility]phone [facility] 1.2.840.114 [id number] Univers 00:00:00 00:00:00 Clover Mandujano [employer] 350.1.13.10 it y of [place] 4.2.7.2.686 Bill as CHRISTINA?BLEA [phone] Fl berta SHAW [address] [place] [address] 2021-04-27 2021-04-27 [facility] [id number] Univers 09:00:00 09:00:00 CLOVERYENY odell [facility] 2021-04-27 2021-04-27 Outpatient [facility] [id number] Univers 00:00:00 00:00:00 CLOVER estefania [facility] 2021-04-23 2021-04-23 [facility] [id number] Univers 13:30:00 13:30:00 [facility] 2021-04-20 2021-04-20 Outpatient [facility] [id number] Univers 00:00:00 00:00:00 CLOVER estefania [facility] 2021-04-20 2021-04-20 Telephone [facility] 1.2.840.114 [id number] Univers 00:00:00 00:00:00 Clover Mandujano [employer] 350.1.13.10 it y of [place] 4.2.7.2.686 Bill as CHRISTINA?BLEA [phone] Fl berta SHAW 198 [facility] 2021-04-17 2021-04-17 Telephone [facility] 1.2.840.114 [id number] Univers 00:00:00 00:00:00 Clover Mandujano HEALTH 350.1.13.10 it y of [place] 4.2.7.2.686 Bill as CHRISTINA?BLEA [phone] Fl berta SHAW 198 [facility] OFFICE [facility] 2021-04-17 2021-04-17 Telephone [facility] 1.2.840.114 [id number] Univers 00:00:00 00:00:00 Clover Mandujano HEALTH 350.1.13.10 it y of [place] 4.2.7.2.686 Bill as CHRISTINA?BLEA [phone] Me berta SHAW 198 [facility] OFFICE [facility] 2021-04-11 2021-04-11 Telephone [facility] 1.2.840.114 [id number] Univers 00:00:00 00:00:00 Clover Mandujano HEALTH 350.1.13.10 it y of [place] 4.2.7.2.686 Bill as CHRISTINA?BLEA [phone] Fl berta SHAW 198 [facility] OFFICE [facility] 2021-04-11 2021-04-11 Telephone [facility] 1.2.840.114 [id number] Univers 00:00:00 00:00:00 Clover Mandujano HEALTH 350.1.13.10 it y of [place] 4.2.7.2.686 Bill as CHRISTINA?BLEA [phone] Fl berta SHAW [address] [place] [address] 2021-04-06 2021-04-06 Outpatient [facility] [id number] Univers 08:15:00 08:15:00 CLOVER odell [facility] 2021-04-06 2021-04-06 Telephone [facility] 1.2.135.594 [id number] Univers 00:00:00 00:00:00 Daniel De La Paz HEALTH 350.1.13.10 it y of [place] 4.2.7.2.686 Bill as CHRISTINA?BLEA [phone] Fl berat SHAW 198 [facility] 2021-04-05 2021-04-05 Outpatient Issa BAL [facility] [id number] Univers 13:15:00 13:43:22 DANIEL odell [facility] 2021-04-05 2021-04-05 Office [facility] 1.2.840.114 [id number] Univers 13:15:00 13:30:00 Visit Daniel De La Paz HEALTH 350.1.13.10 it y of [place] 4.2.7.2.686 Bill as CHRISTINA?BLEA [phone] Fl berta SHAW [address] [place] [address] 2021-04-05 2021-04-05 Outpatient Issa BAL [facility] [id number] Univers 13:15:00 13:15:00 DANIEL ity [facility] 2021-04-05 2021-04-05 Letter Doctor YOLIS 1.2.840.114 [id number] Univers 00:00:00 00:00:00 (Out) Unassigned, TIN 350.1.13.10 ity of [place] [facility] 4.2.7.2.686 Bill as [phone] [address] 2021-04-05 2021-04-05 Letter Doctor YOLIS 1.2.840.114 [id number] Univers 00:00:00 00:00:00 (Out) Unassigned, TIN 350.1.13.10 ity of [place] [facility] 4.2.7.2.686 Bill as [id number] [address] 2021-04-03 2021-04-03 Outpatient Issa BAL [facility] [id number] Univers 13:00:00 13:00:00 [facility] 2021-04-02 2021-04-02 Outpatient R BASSEM [facility] [id number] Univers 10:30:00 10:30:[address] [facility] 2021-04-02 2021-04-02 [facility] [id number] Univers 10:30:00 10:30:[address] [facility] 2021-03-29 2021-03-29 Outpatient Iss[facility] [id number] Univers 13:00:00 13:00:[address] [facility] 2021-03-29 2021-03-29 Refill [facility] 1.2.278.740 [id number] Univers 00:00:00 00:00:00 Clover Nazia HEALTH 350.1.13.10 it y of [place] 4.2.7.2.686 Bill as CHRISTINA?BLEA [phone] [address] MEDICAL OFFICE BUILDING 2021-03-29 2021-03-29 Telephone Kumar [facility] 1.2.840.114 [id number] Univers 00:00:00 00:00:00 Clover L HEALTH 350.1.13.10 it y of [place] 4.2.7.2.686 Bill as CHRISTINA?BLEA [phone] Me berta SHAW 198 [facility] 2021-03-28 2021-03-28 Orders Doctor YOLIS 1.2.840.114 [id number] Univers 00:00:00 00:00:00 Only Unassigned, TIN 350.1.13.10 ity of [place] [facility] 4.2.7.2.686 Bill as [id number] [address] 2021-03-23 2021-03-23 Outpatient [facility] [id number] Univers 11:30:00 11:30:00 CLOVER odell [facility] 2021-03-20 2021-03-20 Orders Doctor YOLIS 1.2.840.114 [id number] Univers 00:00:00 00:00:00 Only Unassigned, TIN 350.1.13.10 ity of [place] [facility] 4.2.7.2.686 Bill as [phone] [address] 2021-03-16 2021-03-16 [facility]phone [facility] 1.2.840.114 [id number] Univers 00:00:00 00:00:00 Clover Mandujano HEALTH 350.1.13.10 it y of [place] 4.2.7.2.686 Bill as CHRISTINA?BLEA [phone] Me berta SHAW [address] [place] [address] 2021-03-15 2021-03-15 Outpatient [facility] [id number] Univers 13:00:00 13:00:00 CLOVER odell [facility] 2021-03-09 2021-03-09 [facility] 1.2.840.114 [id number] Univers 00:00:00 00:00:00 Surgery Clover Mandujano HEALTH 350.1.13.10 it y of [place] 4.2.7.2.686 Bill as CHRISTINA?BLEA [id number] Me berta SHAW 198 [facility] 2021-03-05 2021-03-05 Outpatient [facility] [id number] Univers 14:15:00 14:42:32 CLOVER odell [facility] 2021-03-05 2021-03-05 Office [facility] 1.2.793.899 [id number] Univers 14:15:00 14:42:32 Visit Clover MENDOZA 350.1.13.10 it y of [place] 4.2.7.2.686 Bill as CHRISTINA?BLEA [phone] Me berta SHAW 198 [facility] OFFICE [facility] 2021-03-05 2021-03-05 Orders Doctor YOLIS 1.2.840.114 [id number] Univers 00:00:00 00:00:00 Only Unassigned, TIN 350.1.13.10 ity of [place] [facility] 4.2.7.2.686 Bill as [phone] [address] 2021-03-05 2021-03-05 [facility]phone [facility] 1.2.840.114 [id number] Univers 00:00:00 00:00:00 Clover MENDOZA 350.1.13.10 it y of [place] 4.2.7.2.686 Bill as CHRISTINA?BLEA [phone] Me berta SHAW [address] [place] [address] OFFICE [facility] 2021-02-12 2021-02-12 Outpatient [facility] [id number] Univers 13:45:00 13:45:00 CLOVER odell [facility] 2021-02-01 2021-02-01 [facility]phone [facility] 1.2.840.114 [id number] Univers 00:00:00 00:00:00 Clover Mandujano [employer] 350.1.13.10 it y of [place] 4.2.7.2.686 Bill as CHRISTINA?BLEA [phone] Me berta SHAW [address] [place] [address] OFFICE [facility] 2021-01-29 2021-01-29 Telephone [facility] 1.2.840.114 [id number] Univers 00:00:00 00:00:00 Clover MENDOZA 350.1.13.10 it y of [place] 4.2.7.2.686 Bill as CHRISTINA?BLEA [phone] Fl berta SHAW [address] [place] [address] OFFICE [facility] 2021-01-22 2021-01-22 [facility] [place] 1.2.679.417 [id number] Univers 00:00:00 00:00:00 Sendil Demetri LU 350.1.13.10 [facility] [place] [id number] Fl dical NAL 059 [facility] 2021-01-19 2021-01-19 Outpatient [facility] [id number] Univers 10:00:00 23:59:00 SENDIL ity [facility] 2021-01-19 2021-01-19 [facility] 1.2.840.114 [id number] Univers 09:54:13 23:59:00 Encounter Sendil Demetri LU 350.1.13.10 [facility] 4.2.[place] [id number] [facility] 843 [facility] 2021-01-19 2021-01-19 Outpatient [facility] [id number] Univers 10:00:00 10:00:00 SENDIL ity [facility] 2021-01-19 2021-01-19 [place] [facility] 1.2.256.692 [id number] Univers 00:00:00 00:00:00 Fernando LU 350.1.13.10 [facility] 4.2.[place] [phone] [address] 2021-01-16 2021-01-16 Out[facility] [id number] Univers 00:00:00 00:00:00 SENDIL ity [facility] 2021-01-16 2021-01-16 Outpatient [facility] [id number] Univers 00:00:00 00:00:00 SENDIL ity [facility] 2020-12-07 2020-12-07 Telephone [facility] 1.2.862.457 [id number] Univers 00:00:00 00:00:00 Sendil Demetri Lu 350.1.13.10 ity of [place].2.[place] [phone] [address] 2020-11-02 2020-11-02 Outpatient R BASSEM [facility] [id number] Univers 00:00:00 00:00:00 SENDIL ity [facility] 2020-10-03 2020-10-03 Outpatient [facility] [id number] Univers 00:00:00 00:00:00 SENDIL ity [facility] 2020-09-21 2020-09-21 Outpatient [facility] [id number] Univers 15:30:00 15:32:11 SENDIL ity [facility] 2020-09-21 2020-09-21 Office [facility] 1.2.840.114 [id number] Univers 14:55:58 15:32:11 Visit Sendodilia LU 350.1.13.10 ity of [place].2.[place] [phone] [address] 2020-09-21 2020-09-21 Office [facility] [place] 1.2.840.114 [id number] Univers 14:55:58 15:32:11 Visit Shakila LU 350.1.13.10 [facility] 4.[place] [id number] [address] 2020-09-21 2020-09-21 Outpatient [facility] [id number] Univers 15:30:00 15:30:00 SENDIL ity [facility] 2020-07-27 2020-07-27 Outpatient [facility] [id number] Univers 08:04:33 23:59:00 CLOVER ity [facility] 2020-07-27 2020-07-27 [facility] 1.2.840.114 [id number] Univers 08:04:33 23:59:00 Encounter [facility] 350.1.13.10 ity of Surgical 4.2.7.2.686 Bill as Specialti [phone] Fl dical es 809 [facility] 2020-07-27 2020-07-27 Office [facility] 1.2.840.114 [id number] Univers 07:51:51 09:06:38 Visit [facility] 350.1.13.10 it y of Surgical 4.2.7.2.686 Bill as Specialti [phone] Me dical es 198 [facility] 2020-07-27 2020-07-27 Outpatient R MALLY [facility] [id number] Univers 08:00:00 08:00:00 DANIEL ity of [facility] 2020-07-27 2020-07-27 Telephone [facility] 1.2.240.327 [id number] Univers 00:00:00 00:00:00 [facility] 350.1.13.10 it y of Surgical 4.2.7.2.686 Bill as Specialti [phone] Fl dical es 198 [facility] 2020-07-11 2020-07-11 Outpatient R MALLY [facility] [id number] Univers 14:00:00 14:00:00 DANIEL ity of [facility] 2020-03-29 2020-03-29 Orders Doctor YOLIS 1.2.840.114 [id number] Univers 00:00:00 00:00:00 Only Unassigned, TIN 350.1.13.10 ity of [place] [facility] 4.2.7.2.686 Bill as [phone] [facility] 009 [place] 2020-03-29 2020-03-29 Orders Doctor YOLIS 1.2.840.114 [id number] 00:00:00 00:00:00 Only Unassigned, TIN 350.1.13.10 [place] [facility] 4.2.7.2.686 [id number] 009 2020-03-11 2020-03-11 Emergency Jones [facility] 1.2.840.114 [id number] Univers 18:06:00 18:59:00 Nidia Lu 350.1.13.10 i ty of [place] [phone] [facility] [address] [place] 2020-03-11 2020-03-11 Emergency Goldman, [facility] 1.2.840.114 [id number] 18:06:00 18:59:00 Nidia [place] 350.1.13.10 [place] 4.2.7.2.686 [place] [phone] 084 2020-01-17 2020-01-17 Emergency Goldman, [facility] 1.2.840.114 [id number] [facility] 16:55:00 19:20:00 Nidia [place] 350.1.13.10 i ty of [place] 4.2.7.2.686 [facility] [phone] [facility] [address] 2020-01-17 2020-01-17 Emergency Goldman, [facility] 1.2.840.114 [id number] 16:55:00 19:20:00 Nidia Lu 350.1.13.10 [place] 4.2.7.2.686 [place] [phone] [facility] 2019-05-25 2019-05-25 Outpatient SIFF, [facility] [id number] [place] 00:00:00 00:00:[address] 2019-05-25 2019-05-25 Outpatient SIFF, [facility] [id number] [place] 00:00:00 00:00:[address] 2019-05-25 2019-05-25 Outpatient SIFF, [facility] [id number] [place] 00:00:00 00:00:[address] 2019-05-25 2019-05-25 Outpatient SIFF, [facility] [id number] [place] 00:00:00 00:00:[address] 2019-02-24 2019-02-24 Departed ESPERANZA Andrew [id number] CHRISTU 18:14:00 19:15:[address] 2019-02-24 2019-02-24 Departed [facility] Andrew [id number] [place]STU 18:14:00 19:15:[address] 2019-02-10 2019-02-10 Emergency Lenard SORIA [facility] ERT [id number] Univers 18:48:57 21:06:00 MARYLOU odell [facility] Results Test Description Test Time Test Comments Results Result Comments Source Throat Streptococcus pyogenes antigen detection 2019-02-24 1 8:38:00 Test Item Value Reference Range Interpretation Comme nts Group A Streptococcus Screen (test code = 50015-7) Negative Neg [facility] Streptococcus pyogenes antigen [id number] 18:38:00 Test Item Value Reference Range Interpretation Comments Group A Streptococcus Screen (test Negative code = 74947-9)
[2022-03-07] MEDS ORDERED: ALPRAZOLAM 0.5 MG TABLET ONE (12:56)
[2022-03-07] MEDS ORDERED: predniSONE 20 MG TAB ONE (12:56)
[2022-03-07] MEDS ORDERED: ALBUTEROL 2.5 MG/3 ML NEB SOL ONE (12:56)
[2022-03-07 13:03] LABS: Urine Blood Trace-intact (Negative); Urine Glucose Negative (Negative); Urine Protein Negative (Negative); Urine Specific Gravity 1.025 (1.005-1.030)
[2022-03-07 13:17] LABS: Calcium Oxalate Crystals- Ur Few /HPF (None Seen); Specific Gravity 1.027 (1.005-1.030); Urine Bacteria <20 /HPF (<20); Urine Bilirubin NEGATIVE (Negative); Urine Blood Trace (Negative); Urine Clarity Clear (Clear); Urine Color Light-Yellow (Yellow); Urine Glucose NEGATIVE (Negative); Urine Mucus Slight /HPF (None Seen); Urine Protein TRACE (Negative); Urine Urobilinogen Normal (Normal); Urine pH 6.5 (5.0-7.0)
--- NOTE | 2022-03-07 16:10 | ER ---
Nurse's Notes [facility] Name: Vicky Walker Age: 61 yrs Sex: Female : 1960 Arrival Date: 03/07/2022 Time: 12:09 Bed External Waiting Private MD: Diagnosis: COPD/ Chronic obstructive pulmonary disease with (acute) exacerbation;Anxiety disorder, unspecified;Dysuria;Hematuria, unspecified Presentation: 03/07 12:15 Chief complaint: EMS states: " patient called us because she is feeling shortness of em6 breath. she states that she hasn't had her breathing treatment because she left it in the old apartment. she also has history of anxiety and is feeling shaky. we gave her a breathing treatment of albuterol and Atrovent at 1200.". Coronavirus screen: Client denies travel out of the [place] in the last 14 days. Ebola Screen: Patient negative for fever greater than or equal to 101.5 degrees Fahrenheit, and additional compatible Ebola Virus Disease symptoms. Initial Sepsis Screen: Does the patient meet any 2 criteria? No. Patient's initial sepsis screen is negative. Does the patient have a suspected source of infection? No. Patient's initial sepsis screen is negative. Risk Assessment: Do you want to hurt yourself or someone else? Patient reports no desire to harm self or others. Onset of symptoms was March 05, 2021. 12:15 Acuity: PIYUSH 3 em6 12:15 Method Of Arrival: EMS: [facility] em6 Historical: - Allergies: 12:18 PENICILLINS; em6 12:18 Toradol; em6 - Home Meds: 12:18 Xanax 1 mg Oral tab 1 tab 3 times per day [Active]; Flonase 50 mcg/actuation Nasal spsn em6 1 spray 2 times per day [Active]; lisinopril 10 mg Oral tab once daily [Active]; loratadine 10 mg Oral tab 1 tab once daily [Active]; omeprazole 20 mg Oral cpDR 1 cap once daily [Active]; - PMHx: 12:18 Anxiety; Chronic pain; GERD; Hypertension; psoriasis; em6 - Immunization history:: Adult Immunizations up to date. - Social history:: Smoking status: Patient reports the use of cigarette tobacco products. Screenin:15 [facility] ED Fall Risk Assessment (Adult) History of falling in the last 3 months, em6 including since admission No falls in past 3 months (0 pts) Confusion or Disorientation No (0 pts) Intoxicated or Sedated No (0 pts) Impaired Gait No (0 pts) Mobility Assist Device Used No (0 pt) Altered Elimination No (0 pt) Score/Fall Risk Level 0 - 2 = Low Risk Oriented to surroundings, Maintained a safe environment, Educated pt \\T\\ family on fall prevention, incl call for assistance when getting out of bed, Assessed \\T\\ reinforced patient's understanding of fall precautions, Provided non-skid footwear, Hourly rounding (assess needs \\T\\ fall precautionary measures) done, Used ambulatory aids as needed (educated on \\T\\ assisted with), Used gait belt as appropriate. Abuse screen: Denies threats or abuse. Nutritional screening: No deficits noted. Tuberculosis screening: No symptoms or risk factors identified. Assessment: 12:14 General: Appears in no apparent distress. Behavior is cooperative, anxious. General: em6 Behavior is crying. Pain: Denies pain. Neuro: Level of Consciousness is awake, alert, obeys commands, Oriented to person, place, time, situation. Cardiovascular: Patient's skin is warm and dry. Respiratory: Reports shortness of breath Airway is patent Respiratory effort is even, unlabored, Respiratory pattern is regular, symmetrical. GI: No signs and/or symptoms were reported involving the gastrointestinal system. : No signs and/or symptoms were reported regarding the genitourinary system. EENT: No signs and/or symptoms were reported regarding the EENT system. Derm: No signs and/or symptoms reported regarding the dermatologic system. Musculoskeletal: Circulation, motion, and sensation intact. Range of motion: intact in all extremities. 13:15 Reassessment: Patient appears in no apparent distress at this time. No changes from em6 previously documented assessment. Patient and/or family updated on plan of care and expected duration. Pain level reassessed. Patient is alert, oriented x 3, equal unlabored respirations, skin warm/dry/pink. 14:15 Reassessment: Patient appears in no apparent distress at this time. No changes from em6 previously documented assessment. Patient and/or family updated on plan of care and expected duration. Pain level reassessed. Patient is alert, oriented x 3, equal unlabored respirations, skin warm/dry/pink. 14:57 Reassessment: walked in the patients room and the patients belongings were gone and the em6 patient itself was not in the room. I checked the restroom and the waiting area. patient is not seen. provider notified. no new orders. Vital Signs: 12:15 BP 147 / 83; Pulse 90; Resp 20; Temp 97.8; Pulse Ox 92% on R/A; Weight 81.65 kg; Height em6 5 ft. 2 in. (157.48 cm); Pain 0/10; 13:23 BP 133 / 73; Pulse 86; Resp 18; Pulse Ox 92% on R/A; em6 14:25 BP 136 / 74; Pulse 84; Resp 16; Pulse Ox 94% on R/A; em6 12:15 Body Mass Index 32.92 (81.65 kg, 157.48 cm) em6 ED Course: 12:09 Patient arrived in ED. ms3 12:10 Jennifer Cantu FNP-C [facility]. snw 12:10 Kenton Thompson DO is Attending Physician. snw 12:14 Mindy Santiago, TANISHA is Primary Nurse. em6 12:18 Triage completed. em6 12:18 Arm band placed on. em6 12:19 Bed in low position. Call light in reach. Side rails up X 1. Pulse ox on. NIBP on. Warm em6 blanket given. 15:01 No provider procedures requiring assistance completed. Patient did not have IV access em6 during this emergency room visit. 16:09 Fermin Kent DO is Referral Physician. ms3 16:09 Marko Marie MD is Referral Physician. ms3 Administered Medications: 13:02 Drug: Albuterol 2.5 mg Route: Inhalation; em6 13:30 Follow up: Response: No adverse reaction em6 13:02 Drug: XANax (alprazolam) Tablet 0.5 mg Route: PO; em6 13:30 Follow up: Response: No adverse reaction em6 13:02 Drug: predniSONE 60 mg Route: PO; em6 13:30 Follow up: Response: No adverse reaction em6 Medication: 15:01 VIS not applicable for this client. em6 Outcome: 16:10 Discharge ordered by . ms3 16:25 Discharged to home ambulatory. em6 16:25 Condition: stable 16:27 Discharge instructions given to left without getting instructions or signing em6 16:28 Patient left the ED. em6 Signatures: Jennifer Cantu, ADIS-C ALTERATION SPECIALIST-[facility] Kenton Thompson DO DO ms3 Mindy Santiago, RN RN em6 Corrections: (The following items were deleted from the chart) 12:18 12:18 PMHx: allergies; em6 em6 16:26 16:25 Discharge instructions given to patient, Instructed on discharge instructions, em6 follow up and referral plans. Demonstrated understanding of instructions, follow-up care, em6 16:28 16:25 Discharge instructions given to patient, Instructed on discharge instructions, em6 follow up and referral plans. medication usage, Demonstrated understanding of instructions, follow-up care, medications, Prescriptions given X 1, em6
--- NOTE | 2022-03-07 16:10 | EDPHYS ---
Physician Documentation [facility] Name: Vicky Walker Age: 61 yrs Sex: Female : 1960 Arrival Date: 03/07/2022 Time: 12:09 Bed External Waiting Private MD: ED Physician Kenton Thompson HPI: 03/07 12:36 This 61 yrs old Female presents to ER via EMS with complaints of Shortness of breath, ms3 anxiety, urinary frequency. 12:36 61-year-old female with past medical history of anxiety, chronic pain, GERD, ms3 hypertension, psoriasis, COPD presents for shortness of breath. Patient states she has not had her nebulizer machine for over one 1 month. Patient notes she is also had urinary frequency with dysuria. Patient states she is currently out of her anxiety medication, Xanax, and is nervous. Patient states she has an appointment with her primary care physician tomorrow.. Historical: - Allergies: 12:18 PENICILLINS; em6 12:18 Toradol; em6 - Home Meds: 12:18 Xanax 1 mg Oral tab 1 tab 3 times per day [Active]; Flonase 50 mcg/actuation Nasal spsn em6 1 spray 2 times per day [Active]; lisinopril 10 mg Oral tab once daily [Active]; loratadine 10 mg Oral tab 1 tab once daily [Active]; omeprazole 20 mg Oral cpDR 1 cap once daily [Active]; - PMHx: 12:18 Anxiety; Chronic pain; GERD; Hypertension; psoriasis; em6 - Immunization history:: Adult Immunizations up to date. - Social history:: Smoking status: Patient reports the use of cigarette tobacco products. ROS: 12:36 Constitutional: Negative for fever, and chills. Neck: Negative for injury, pain, and ms3 swelling, Cardiovascular: Negative for chest pain, and palpitations. 12:36 Respiratory: Positive for shortness of breath. 12:36 : Positive for urinary symptoms, urinary frequency. 12:36 Psych: Positive for anxiety. Exam: 12:36 Constitutional: This is a well developed, well nourished patient who is awake, alert, ms3 and in no acute distress. Head/Face: Normocephalic, atraumatic. Neck: Trachea midline, no cervical lymphadenopathy. Supple, full range of motion without nuchal rigidity, or vertebral point tenderness. No Meningismus. Chest/axilla: Normal chest wall appearance and motion. Nontender with no deformity. Cardiovascular: Regular rate and rhythm with a normal S1 and S2. No gallops, murmurs, or rubs. Normal PMI, no JVD. No pulse deficits. Respiratory: Lungs have equal breath sounds bilaterally, clear to auscultation and percussion. No rales, rhonchi or wheezes noted. No increased work of breathing, no retractions or nasal flaring. Abdomen/GI: Soft, non-tender, with normal bowel sounds. No distension or tympany. No guarding or rebound. No evidence of tenderness throughout. Skin: Warm, dry with normal turgor. Normal color with no rashes, no lesions, and no evidence of cellulitis. MS/ Extremity: Pulses equal, no cyanosis. Neurovascular intact. Full, normal range of motion. Vital Signs: 12:15 BP 147 / 83; Pulse 90; Resp 20; Temp 97.8; Pulse Ox 92% on R/A; Weight 81.65 kg; Height em6 5 ft. 2 in. (157.48 cm); Pain 0/10; 13:23 BP 133 / 73; Pulse 86; Resp 18; Pulse Ox 92% on R/A; em6 14:25 BP 136 / 74; Pulse 84; Resp 16; Pulse Ox 94% on R/A; em6 12:15 Body Mass Index 32.92 (81.65 kg, 157.48 cm) em6 MDM: 12:09 Patient medically screened. ms3 12:36 Differential diagnosis: Anxiety Reaction Chronic Obstructive Pulmonary Disease UTI. ms3 16:13 Data reviewed: vital signs, nurses notes, lab test result(s), urinalysis, hematuria, ms3 and as a result, I will discharge patient. Counseling: I had a detailed discussion with the patient and/or guardian regarding: the historical points, exam findings, and any diagnostic results supporting the discharge/admit diagnosis, lab results, the need for outpatient follow up, to return to the emergency department if symptoms worsen or persist or if there are any questions or concerns that arise at home. Medical screen evaluation completed. [facility]. ED course: Discussed labs with patient. Discussed with patient urinalysis showed hematuria which will require additional follow-up with primary care. Discussed with patient necessity to follow-up with pulmonology. Patient transgress the plan. All questions were answered. Return precautions discussed include worsening symptoms, or any other concerns.. 03/07 12:43 Order name: Urinalysis; Complete Time: 16:08 ms3 03/07 13:04 Order name: Urine Dipstick-Ancillary; Complete Time: 16:08 EDMS 03/07 12:43 Order name: Urine Dipstick-Ancillary (obtain specimen); Complete Time: 13:06 ms3 Administered Medications: 13:02 Drug: Albuterol 2.5 mg Route: Inhalation; em6 13:30 Follow up: Response: No adverse reaction em6 13:02 Drug: XANax (alprazolam) Tablet 0.5 mg Route: PO; em6 13:30 Follow up: Response: No adverse reaction em6 13:02 Drug: predniSONE 60 mg Route: PO; em6 13:30 Follow up: Response: No adverse reaction em6 Disposition Summary: 03/07/22 16:10 Discharge Ordered Location: Home ms3 Condition: Stable ms3 Diagnosis - COPD/ Chronic obstructive pulmonary disease with (acute) exacerbation ms3 - Anxiety disorder, unspecified ms3 - Dysuria ms3 - Hematuria, unspecified ms3 Followup: ms3 - With: Fermin Kent DO - When: 2 - 3 days - Reason: Recheck today's complaints Followup: ms3 - With: Marko Marie MD - When: 2 - 3 days - Reason: Recheck today's complaints Discharge Instructions: - Discharge Summary Sheet ms3 - Chronic Obstructive Pulmonary Disease ms3 - Hematuria, Adult ms3 Forms: - Medication Reconciliation Form ms3 - Thank You Letter ms3 - Antibiotic Education ms3 - Prescription Opioid Use ms3 Prescriptions: - Prednisone 20 mg Oral Tablet - take 2 tablets by ORAL route once daily for 5 days; 10 tablet; Refills: 0, ms3 Product Selection Permitted Signatures: Dispatcher [employer] Kenton Reveles DO DO ms3 Mindy Santiago, RN RN em6 Corrections: (The following items were deleted from the chart) 12:18 12:18 PMHx: allergies; em6 em6
[2022-03-07 17:01] VITALS: TEMP 97.8
[2022-03-07 17:03] VITALS: BP 136/74; O2SAT 94
== END 2022-03-07 16:28 | disposition home or self-care (01) ==
LOC: ER 12:08
DX: J44.1 Chronic obstructive pulmonary disease with (acute) exacerbation (principal); F41.9 Anxiety disorder, unspecified; R30.0 Dysuria; R31.9 Hematuria, unspecified; I10 Essential (primary) hypertension; Z88.0 Allergy status to penicillin; Z88.5 Allergy status to narcotic agent; Z72.0 Tobacco use
CPT/HCPCS: 81001; 81003; 99284; J7512; J7613

== ENCOUNTER 2022-04-16 10:41 | Emergency (ER) | payer OTHER ==
--- OUTSIDE RECORDS SUMMARY | 2022-04-16 10:47 | XMS REPORT | Continuity of Care Document ---
:1960 [facility] Organization [facility] t Address [address] [place] [address] Care Team Providers Name Role Phone ADAM ANTUNEZ Primary Care Physician CLOVER HEATH Attending Clinician Unavailable Clover Heath MD Attending Clinician Doctor Unassigned, [place] Attending Clinician Unavailable DANIEL BAL Attending Clinician Unavailable Rd Attending Clinician Unavailable Daniel Garner Attending Clinician BASSEM SENDREBECCA K.H. Attending Clinician Unavailable Shakila Luevano MD K.H. Attending Clinician Fernando Lopez MD Attending Clinician Nidia Vaughn Attending Clinician CARLOS MAYO Attending Clinician Unavailable MARYLOU SORIA Attending Clinician Unavailable CLOVER HEATH Admitting Clinician Unavailable Rd Admitting Clinician Unavailable SHAKILA LUEVANO K.H. Admitting Clinician Unavailable MARYLOU SORIA Admitting Clinician Unavailable Payers Payer Name Policy Type Policy Number Effective Date Expiration Date Brain kim [employer]LL[employer] PLUS [id number] 2020 CLASSIC/VALUE 00:00:00 [facility] [id number] 2016 MEDICAID 00:00:00 MEDICARE PART A \T\ [id number] 2011 B 00:00:00 MEDICAID [facility] [id number] 2010 00:00:00 WELLMED/UHC DUAL [id number] COMP HMO D SNP 00:00:00 HUMANA CHOICE [id number] 2021 00:00:00 HUMANA (MEDICARE [id number] REPLACEMENT/ADVANTA GE - PPO) [facility] [id number] 2016 OF [place] (MEDICAID 00:00:00 HMO) WELLCARE (MEDICARE [id number] 2021 REPLACEMENT/ADVANTA 00:00:00 GE - PPO) Problems Condition Condition Condition Status Onset Resolution Last Treating Co mments Source Name Details Category Date Date Treatment Clinician Date Primary Primary Disease Active Overview: Univ ers osteoarthr osteoarthr 1-10 Formattin ity of itis of itis of 00:00: g of this [place] right knee right knee 00 note Me dical might be Branch different from the original. Added automatic ally from request for surgery [id number] Fracture, Fracture, Disease Active Met Ezekiel Ocampo, 2-24 st left, left, 00:00: Hospita closed closed 00 l Obesity Obesity Disease Active Univers (BMI (BMI 5-05 ity of 30-39.9) 30-39.9) 00:00: [place] 00 Medical Branch Chest pain Chest pain Disease Active U nivers 5-04 ity of 00:00: Medical Branch Right foot Right foot Disease Active 2015-03 U nivers pain pain 2-14 ity of 00:00: [place] 00 Medical Branch Left Problem Active CHRISTU against S medical Health advice Otitic Problem Inactiv CHRISTU barotrauma e S Health Otitic Problem [facility] Rhinitis Problem Inactiv KEN U e S Health Rhinitis Problem [facility] Allergies, Adverse Reactions, [...] [facility] Exposure to 2022-03-31 2022-04-10 Not sure [facility] SARS-CoV-2 (event) 00:00:00 14:08:00 [facility] Tobacco use and 2022-04-10 2022-04-10 Smokeless Universit y of exposure 00:00:00 00:00:00 tobacco non-user [facility] Alcohol intake 2019-05-25 2019-05-25 0 /d [facility] 00:00:00 00:00:00 Hospital Cigarettes smoked 2019-05-25 2019-05-[address] current (pack per 00:00:00 00:00:00 Hospita l day) - Reported Cigarette 2019-05-25 2019-05-25 [facility] [facility] pack-years 00:00:00 00:00:00 Hospital Sex Assigned At [birth year] [facility] 00:00:00 00:00:00 Hospital Sex Assigned At [birth year] Female ESPERANZA Morales 00:00:00 00:00:[address] [facility] Smoking Status Start Date Stop Date Source Smokes tobacco daily 2022-04-10 00:00:00 [facility] [place] [facility] Current Light tobacco 2019-02-24 18:35:00 [facility] smoker Current Light tobacco 2019-02-24 18:35:00 [facility] Medications Ordered Filled Start Stop Current Ordering Indication Dosage Frequency Signature Comments Components Source Medication Medication Date Date Medication? Clinician (SIG) Name Name DICLOFENAC Yes [id number] TAKE 1 Univers 75 mg EC 7-12 9109 TABLET BY ity of tablet 00:00: MOUTH [place] 00 TWICE A Medical DAY WITH Branch MEALS DICLOFENAC 2021-0 Yes [id number] TAKE 1 Univers 75 mg EC 7-12 9109 TABLET BY ity of tablet 00:00: MOUTH [place] 00 TWICE A Medical DAY WITH Branch MEALS DICLOFENAC 2021-0 Yes [id number] TAKE 1 Univers 75 mg EC 7-12 9109 TABLET BY ity of tablet 00:00: MOUTH [place] 00 TWICE A Medical DAY WITH Branch MEALS DICLOFENAC 2021-0 Yes [id number] TAKE 1 Univers 75 mg EC 7-12 9109 TABLET BY ity of tablet 00:00: MOUTH [place] 00 TWICE A Medical DAY WITH Branch MEALS DICLOFENAC 2021-0 Yes [id number] TAKE 1 Univers 75 mg EC 7-12 9109 TABLET BY ity of tablet 00:00: MOUTH [place] 00 TWICE A Medical DAY WITH Branch MEALS diclofenac 2021-0 Yes [id number] 75mg Take 1 Univers 75 mg EC 5-23 9109 tablet by ity of tablet 00:00: mouth 2 [place] 00 (two) Medical times Branch daily with meals. diclofenac 2021-0 2021- No [id number] 75mg Take 1 Univers 75 mg EC 5-23 07-12 9109 tablet by ity o f tablet 00:00: 00:00 mouth 2 [place] 00 :00 (two) Medical times Branch daily with meals. aspirin 81 2021-0 Yes 81mg Take 81 mg U nivers mg chewable 3-10 by mouth ity of tablet 15:33: daily. [address] lisinopril 2021-0 Yes Take by Univ ers 10 mg 3-10 mouth ity of tablet 15:33: daily. [address] albuterol 0 Yes 1{ampul Use 1 Univ ers 1.25 mg/3 3-10 e} Ampule as ity o f mL 15:33: directed [place] nebulizer 56 every 6 Medical solution (six) Branch hours as needed for Wheezing. ALPRAZolam 0 Yes 1mg Take 1 mg Un lala (XANAX) 1 3-10 by mouth 3 ity of mg tablet 15:33: (three) [address] Medical daily. Branch omeprazole 0 Yes 40mg Take 40 mg U nivers 40 mg 3-10 by mouth ity of capsule 15:33: daily. [address] loratadine 0 Yes 10mg Take 10 mg U nivers 10 mg 3-10 by mouth ity of tablet 15:33: daily. [address] aspirin 81 0 Yes 81mg Take 81 mg U nivers mg chewable 3-10 by mouth ity of tablet 15:33: daily. [address] lisinopril 0 Yes Take by Univ ers 10 mg 3-10 mouth ity of tablet 15:33: daily. [address] albuterol 0 Yes 1{ampul Use 1 Univ ers 1.25 mg/3 3-10 e} Ampule as ity o f mL 15:33: directed [place] nebulizer every 6 Medical solution (six) Branch hours as needed for Wheezing. ALPRAZolam 0 Yes 1mg Take 1 mg Un lala (XANAX) 1 3-10 by mouth 3 ity of mg tablet 15:33: (three) [address] Medical daily. Branch omeprazole 0 Yes 40mg Take 40 mg U nivers 40 mg 3-10 by mouth ity of capsule 15:33: daily. [address] loratadine 2021-0 Yes 10mg Take 10 mg U nivers 10 mg 3-10 by mouth ity of tablet 15:33: daily. [address] aspirin 81 2021-0 Yes 81mg Take 81 mg U nivers mg chewable 3-10 by mouth ity of tablet 15:33: daily. [address] lisinopril 2021-0 Yes Take by Univ ers 10 mg 3-10 mouth ity of tablet 15:33: daily. [address] albuterol 0 Yes 1{ampul Use 1 Univ ers 1.25 mg/3 3-10 e} Ampule as ity o f mL 15:33: directed [place] nebulizer 56 every 6 Medical solution (six) Branch hours as needed for Wheezing. ALPRAZolam 0 Yes 1mg Take 1 mg Un lala (XANAX) 1 3-10 by mouth 3 ity of mg tablet 15:33: (three) [place] [address] times Medical daily. Branch omeprazole 0 Yes 40mg Take 40 mg U nivers 40 mg 3-10 by mouth ity of capsule 15:33: daily. [address] Branch loratadine 0 Yes 10mg Take 10 mg U nivers 10 mg 3-10 by mouth ity of tablet 15:33: daily. [address] aspirin 81 0 Yes 81mg Take 81 mg U nivers mg chewable 3-10 by mouth ity of tablet 15:33: daily. [address] Branch lisinopril 0 Yes Take by Univ ers 10 mg 3-10 mouth ity of tablet 15:33: daily. [address] Branch albuterol 0 Yes 1{ampul Use 1 Univ ers 1.25 mg/3 3-10 e} Ampule as ity o f mL 15:33: directed [place] nebulizer every 6 Medical solution (six) Branch hours as needed for Wheezing. ALPRAZolam 0 Yes 1mg Take 1 mg Un lala (XANAX) 1 3-10 by mouth 3 ity of mg tablet 15:33: (three) [place] [address] times Medical daily. Branch omeprazole 0 Yes 40mg Take 40 mg U nivers 40 mg 3-10 by mouth ity of capsule 15:33: daily. [address] Branch loratadine 2021-0 Yes 10mg Take 10 mg U nivers 10 mg 3-10 by mouth ity of tablet 15:33: daily. [address] aspirin 81 2021-0 Yes 81mg Take 81 mg U nivers mg chewable 3-10 by mouth ity of tablet 15:33: daily. [address] Branch lisinopril 2021-0 Yes Take by Univ ers 10 mg 3-10 mouth ity of tablet 15:33: daily. [address] albuterol Yes 1{ampul Use 1 Univ ers 1.25 mg/3 3-10 e} Ampule as ity o f mL 15:33: directed [place] nebulizer 56 every 6 Medical solution (six) Branch hours as needed for Wheezing. ALPRAZolam 0 Yes 1mg Take 1 mg Un lala (XANAX) 1 3-10 by mouth 3 ity of mg tablet 15:33: (three) [place] [address] times Medical daily. Branch omeprazole 0 Yes 40mg Take 40 mg U nivers 40 mg 3-10 by mouth ity of capsule 15:33: daily. [address] Branch loratadine 0 Yes 10mg Take 10 mg U nivers 10 mg 3-10 by mouth ity of tablet 15:33: daily. [address] aspirin 81 0 Yes 81mg Take 81 mg U nivers mg chewable 3-10 by mouth ity of tablet 15:33: daily. [address] Branch lisinopril 0 Yes Take by Univ ers 10 mg 3-10 mouth ity of tablet 15:33: daily. [address] albuterol 0 Yes 1{ampul Use 1 Univ ers 1.25 mg/3 3-10 e} Ampule as ity o f mL 15:33: directed [place] nebulizer every 6 Medical solution (six) Branch hours as needed for Wheezing. ALPRAZolam 0 Yes 1mg Take 1 mg Un lala (XANAX) 1 3-10 by mouth 3 ity of mg tablet 15:33: (three) [place] [address] times Medical daily. Branch omeprazole 0 Yes 40mg Take 40 mg U nivers 40 mg 3-10 by mouth ity of capsule 15:33: daily. [address] Branch loratadine 0 Yes 10mg Take 10 mg U nivers 10 mg 3-10 by mouth ity of tablet 15:33: daily. [address] aspirin 81 0 Yes 81mg Take 81 mg U nivers mg chewable 3-10 by mouth ity of tablet 15:33: daily. [address] lisinopril 0 Yes Take by Univ ers 10 mg 3-10 mouth ity of tablet 15:33: daily. [place] 56 Medical Branch albuterol Yes 1{ampul Use 1 Univ ers 1.25 mg/3 3-10 e} Ampule as ity o f mL 15:33: directed [place] nebulizer 56 every 6 Medical solution (six) Branch hours as needed for Wheezing. ALPRAZolam 0 Yes 1mg Take 1 mg Un lala (XANAX) 1 3-10 by mouth 3 ity of mg tablet 15:33: (three) [place] [address] times Medical daily. Branch omeprazole 0 Yes 40mg Take 40 mg U nivers 40 mg 3-10 by mouth ity of capsule 15:33: daily. [address] Branch loratadine 0 Yes 10mg Take 10 mg U nivers 10 mg 3-10 by mouth ity of tablet 15:33: daily. [address] aspirin 81 0 Yes 81mg Take 81 mg U nivers mg chewable 3-10 by mouth ity of tablet 15:33: daily. [address] Branch lisinopril 0 Yes Take by Univ ers 10 mg 3-10 mouth ity of tablet 15:33: daily. [address] Branch albuterol 0 Yes 1{ampul Use 1 Univ ers 1.25 mg/3 3-10 e} Ampule as ity o f mL 15:33: directed [place] nebulizer every 6 Medical solution (six) Branch hours as needed for Wheezing. ALPRAZolam 0 Yes 1mg Take 1 mg Un lala (XANAX) 1 3-10 by mouth 3 ity of mg tablet 15:33: (three) [place] [address] times Medical daily. Branch omeprazole 0 Yes 40mg Take 40 mg U nivers 40 mg 3-10 by mouth ity of capsule 15:33: daily. [address] Branch loratadine 0 Yes 10mg Take 10 mg U nivers 10 mg 3-10 by mouth ity of tablet 15:33: daily. [address] aspirin 81 0 Yes 81mg Take 81 mg U nivers mg chewable 3-10 by mouth ity of tablet 15:33: daily. [address] Branch lisinopril 0 Yes Take by Univ ers 10 mg 3-10 mouth ity of tablet 15:33: daily. [place] 56 Medical Branch albuterol 0 Yes 1{ampul Use 1 Univ ers 1.25 mg/3 3-10 e} Ampule as ity o f mL 15:33: directed [place] nebulizer every 6 Medical solution (six) Branch hours as needed for Wheezing. ALPRAZolam 0 Yes 1mg Take 1 mg Un lala (XANAX) 1 3-10 by mouth 3 ity of mg tablet 15:33: (three) [place] [address] times Medical daily. Branch omeprazole 0 Yes 40mg Take 40 mg U nivers 40 mg 3-10 by mouth ity of capsule 15:33: daily. [place] [address] Medical Branch loratadine 2021-0 Yes 10mg Take 10 mg U nivers 10 mg 3-10 by mouth ity of tablet 15:33: daily. [place] [address] Medical Branch diclofenac 2021-0 Yes 75mg Take 1 Unive rs 75 mg EC 2-09 tablet by ity of tablet 00:00: mouth 2 [place] [address] (two) Medical times Branch daily with meals. diclofenac 2021-0 Yes 75mg Take 1 Unive rs 75 mg EC 2-09 tablet by ity of tablet 00:00: mouth 2 [place] [address] (two) Medical times Branch daily with meals. diclofenac 2021-0 Yes 75mg Take 1 Unive rs 75 mg EC 2-09 tablet by ity of tablet 00:00: mouth 2 [place] (two) Medical times Branch daily with meals. diclofenac 2021-0 Yes 75mg Take 1 Unive rs 75 mg EC 2-09 tablet by ity of tablet 00:00: mouth 2 [place] (two) Medical times Branch daily with meals. diclofenac 2-0 Yes 75mg Take 1 Unive rs 75 mg EC 2-09 tablet by ity of tablet 00:00: mouth 2 [place] (two) Medical times Branch daily with meals. diclofenac 2022-0 Yes 75mg Take 1 Unive rs 75 mg EC 2-09 tablet by ity of tablet 00:00: mouth 2 [place] (two) Medical times Branch daily with meals. diclofenac 2021-0 2- No 75mg Take 1 Univ ers 75 mg EC 2-09 05-23 tablet by ity o f tablet 00:00: 00:00 mouth 2 [place] 00 :00 (two) Medical times Branch daily with meals. atorvastati 2021-0 Yes 20mg Take 20 mg Univers n 20 mg 2-03 by mouth ity of tablet 14:05: daily. [address] atorvastati Yes 20mg Take 20 mg Univers n 20 mg 2-03 by mouth ity of tablet 14:05: daily. [address] atorvastati Yes 20mg Take 20 mg Univers n 20 mg 2-03 by mouth ity of tablet 14:05: daily. [address] atorvastati Yes 20mg Take 20 mg Univers n 20 mg 2-03 by mouth ity of tablet 14:05: daily. [address] atorvastati Yes 20mg Take 20 mg Univers n 20 mg 2-03 by mouth ity of tablet 14:05: daily. [address] atorvastati Yes 20mg Take 20 mg Univers n 20 mg 2-03 by mouth ity of tablet 14:05: daily. [address] atorvastati Yes 20mg Take 20 mg Univers n 20 mg 2-03 by mouth ity of tablet 14:05: daily. [address] atorvastati Yes 20mg Take 20 mg Univers n 20 mg 2-03 by mouth ity of tablet 14:05: daily. [address] atorvastati Yes 20mg Take 20 mg Univers n 20 mg 2-03 by mouth ity of tablet 14:05: daily. [address] atorvastati Yes 20mg Take 20 mg Univers n 20 mg 2-03 by mouth ity of tablet 14:05: daily. [address] atorvastati Yes 20mg Take 20 mg Univers n 20 mg 2-03 by mouth ity of tablet 14:05: daily. [address] atorvastati Yes 20mg Take 20 mg Univers n 20 mg 2-03 by mouth ity of tablet 14:05: daily. [address] traMADoL 50 0 Yes 4647 50mg Take 1 Univ ers mg tablet 1-03 tablet by ity o f 00:00: mouth [place] 00 every 4 Medical (four) Branch hours as needed for Pain (scale 7-10). Indication s: acute pain traMADoL 50 2022-0 Yes 4647 50mg Take 1 Univ ers [...] Pain (scale 7-10). Indication s: acute pain lisinopriL 2019-0 Yes lisinopril M ethodi (PRINIVIL) 3-[address] 10 mg 13:54: tablet Hospita tablet 49 l ipratropium 2019-0 Yes ipratropiu Methodi -albuteroL 3-[address] (DUO-NEB) 13:54: mg-albuter Ho spita 0.5-2.5 49 ol 3 mg l mg/3 mL (2.5 mg nebulizer base)/3 mL nebulizati on soln diclofenac 2019- Yes diclofenac M ethodi (VOLTAREN) 3-24 sodium [...] 13:54: capsule Hospita capsule 49 l ALPRAZolam 2019-0 Yes alprazolam M ethodi (XANAX) 3-[address] 0.25 MG 13:54: tablet Hospita tablet 49 l amLODIPine 2020-0 Yes amlodipine M ethodi (NORVASC) 3-[address] 10 mg 13:54: tablet Hospita tablet 49 l albuterol 2020-0 Yes albuterol Met hodi (PROAIR 3-[address] HFA) 90 13:54: HFA 90 Hospita mcg/actuati 49 mcg/actuat l on inhaler ion aerosol inhaler predniSONE 2019-0 Yes prednisone M ethodi (DELTASONE) [...] 13:54: tablet Hospit a 49 l budesonide- 2019-0 Yes Symbicort M ethodi formoteroL 3-[address] (Symbicort) 13:54: mcg-4.5 Hos khanh 160-4.5 49 mcg/actuat l mcg/actuati ion HFA on inhaler aerosol inhaler atorvastati 0 Yes 20mg Take 20 mg Methodi n (LIPITOR) 3-[address] 20 MG 13:54: Hospita tablet 49 l aspirin 81 2019-0 Yes 81mg Chew 81 Meth zeyad mg chewable 3-[address] tablet 13:54: Hospita 49 l gabapentin 2019-0 Yes gabapentin M ethodi (NEURONTIN) 3-[address] 300 mg 13:54: capsule Hospita capsule 49 l ALPRAZolam 2019-0 Yes alprazolam M ethodi (XANAX) 3-[address] 0.25 MG 13:54: tablet Hospita tablet 49 l amLODIPine 2019-0 Yes amlodipine M ethodi (NORVASC) 3-[address] 10 mg 13:54: tablet Hospita tablet 49 l albuterol 2019-0 Yes albuterol Met hodi (PROAIR 3-[address] HFA) 90 13:54: HFA 90 Hospita mcg/actuati 49 mcg/actuat l on inhaler ion aerosol inhaler predniSONE 2019-0 Yes prednisone M ethodi (DELTASONE) 3-[address] 10 mg 13:54: tablet Hospita tablet 49 l Methylpredn 2018-03 No 1 As KEN U isolone 2-25 Directed S (Medrol 18:52: Health Dose-Pack) 00 21 Tab/Dspk TAB Methylpredn 2018-03 No 1 KEN U isolone 2-25 S - (Medrol 18:52: [place] Dose-Pack) 00 Memoria 21 Tab/Dspk l TAB Hospita l ALPRAZolam 2018-03 Yes 1mg Take 1 mg Un lala (XANAX) 1 2-13 by mouth 3 ity of mg tablet 13:41: (three) [place] 15 times Medical daily. Branch omeprazole 2018-03 Yes 40mg Take 40 mg U nivers 40 mg 2-13 by mouth ity of capsule 13:41: daily. [address] loratadine 2018-03 Yes 10mg Take 10 mg U nivers 10 mg 2-13 by mouth ity of tablet 13:41: daily. [address] aspirin 81 2018-03 Yes 81mg Take 81 mg U nivers mg chewable 2-13 by mouth ity of tablet 13:41: daily. [address] lisinopril 2018-03 Yes Take by Univ ers 10 mg 2-13 mouth ity of tablet 13:41: daily. [address] albuterol 2018-03 Yes 1{ampul Use 1 Univ ers 1.25 mg/3 2-13 e} Ampule as ity o f mL 13:41: directed [place] nebulizer 15 every 6 Medical solution (six) Branch hours as needed for Wheezing. ALPRAZolam 2018-03 Yes 1mg Take 1 mg Un lala (XANAX) 1 2-13 by mouth 3 ity of mg tablet 13:41: (three) [place] 15 times Medical daily. Branch omeprazole 2018-03 Yes 40mg Take 40 mg U nivers 40 mg 2-13 by mouth ity of capsule 13:41: daily. [address] loratadine 2018-03 Yes 10mg Take 10 mg U nivers 10 mg 2-13 by mouth ity of tablet 13:41: daily. [address] aspirin 81 2018-03 Yes 81mg Take 81 mg U nivers mg chewable 2-13 by mouth ity of tablet 13:41: daily. [address] lisinopril 2018-03 Yes Take by Univ ers 10 mg 2-13 mouth ity of tablet 13:41: daily. [address] albuterol 2018-03 Yes 1{ampul Use 1 Univ ers 1.25 mg/3 2-13 e} Ampule as ity o f mL 13:41: directed [place] nebulizer 15 every 6 Medical solution (six) Branch hours as needed for Wheezing. ALPRAZolam 2018-03 Yes 1mg Take 1 mg Un lala (XANAX) 1 2-13 by mouth 3 ity of mg tablet 13:41: (three) [place] 15 times Medical daily. Branch omeprazole 2018-03 Yes 40mg Take 40 mg U nivers 40 mg 2-13 by mouth ity of capsule 13:41: daily. [address] Branch loratadine 2018-03 Yes 10mg Take 10 mg U nivers 10 mg 2-13 by mouth ity of tablet 13:41: daily. [address] Branch aspirin 81 2018-03 Yes 81mg Take 81 mg U nivers mg chewable 2-13 by mouth ity of tablet 13:41: daily. [address] Branch lisinopril 2018-03 Yes Take by Univ ers 10 mg 2-13 mouth ity of tablet 13:41: daily. [address] Branch albuterol 2018-03 Yes 1{ampul Use 1 Univ ers 1.25 mg/3 2-13 e} Ampule as ity o f mL 13:41: directed [place] nebulizer 15 every 6 Medical solution (six) Branch hours as needed for Wheezing. benzonatate 2018-03 Yes [id number] 100mg Take 1 Univers 100 mg 2-11 capsule by ity of capsule 00:00: mouth [address] [place] [address] (three) Medical times Branch daily as needed for Cough. benzonatate 2018-03 Yes [id number] 100mg Take 1 Univers 100 mg 2-11 capsule by ity of capsule 00:00: mouth 3 [place] 00 (three) Medical times Branch daily as needed for Cough. benzonatate 2018-03 Yes [id number] 100mg Take 1 Univers 100 mg 2-11 capsule by ity of capsule 00:00: mouth 3 [place] 00 (three) Medical times Branch daily as needed for Cough. benzonatate 2018-03 Yes [id number] 100mg Take 1 Univers 100 mg 2-11 capsule by ity of capsule 00:00: mouth 3 [place] 00 (three) Medical times Branch daily as needed for Cough. benzonatate 2018-03 Yes [id number] 100mg Take 1 Univers 100 mg 2-11 capsule by ity of capsule 00:00: mouth 3 [place] 00 (three) Medical times Branch daily as needed for Cough. benzonatate 2018-03 Yes [id number] 100mg Take 1 Univers 100 mg 2-11 capsule by ity of capsule 00:00: mouth 3 [place] 00 (three) Medical times Branch daily as needed for Cough. benzonatate 2018-03 Yes [id number] 100mg Take 1 Univers 100 mg 2-11 capsule by ity of capsule 00:00: mouth 3 [place] 00 (three) Medical times Branch daily as needed for Cough. benzonatate 2018-03 Yes [id number] 100mg Take 1 Univers 100 mg 2-11 capsule by ity of capsule 00:00: mouth 3 [place] 00 (three) Medical times Branch daily as needed for Cough. benzonatate 2018-03 Yes [id number] 100mg Take 1 Univers 100 mg 2-11 capsule by ity of capsule 00:00: mouth 3 [place] 00 (three) Medical times Branch daily as needed for Cough. benzonatate 2018-03 Yes [id number] 100mg Take 1 Univers 100 mg 2-11 capsule by ity of capsule 00:00: mouth 3 [place] 00 (three) Medical times Branch daily as needed for Cough. benzonatate 2018-03 Yes [id number] 100mg Take 1 Univers 100 mg 2-11 capsule by ity of capsule 00:00: mouth 3 [place] 00 (three) Medical times Branch daily as needed for Cough. benzonatate 2018-03 Yes [id number] 100mg Take 1 Univers 100 mg 2-11 [...] needed for Nausea and Vomiting (N/V). sod 2017-0 Yes 1{bottl Use 1 Univers [...] Immunizations Ordered Filled Immunization Date Status Comments [facility] e Immunization Name Name SARS-COV-2 COVID-19 2020-10-15 Completed Unive rsity of PFIZER VACCINE 00:00:00 [facility] SARS-COV-2 COVID-19 2020-10-15 Completed Unive rsity of PFIZER VACCINE 00:00:00 [facility] SARS-COV-2 COVID-19 2020-10-15 Completed Unive rsity of PFIZER VACCINE 00:00:00 [facility] SARS-COV-2 COVID-19 2020-10-15 Completed Unive rsity of PFIZER VACCINE 00:00:00 [facility] SARS-COV-2 COVID-19 2020-10-15 Completed Unive rsity of PFIZER VACCINE 00:00:00 [place] [facility] SARS-COV-2 COVID-19 2020-10-15 Completed Unive rsity of PFIZER VACCINE 00:00:00 [facility] Branch SARS-COV-2 COVID-19 2020-10-15 Completed Unive rsity of PFIZER VACCINE 00:00:00 [facility] Branch SARS-COV-2 COVID-19 2020-10-15 Completed Unive rsity of PFIZER VACCINE 00:00:00 [facility] Branch SARS-COV-2 COVID-19 2020-10-15 Completed Unive rsity of PFIZER VACCINE 00:00:00 [facility] Branch SARS-COV-2 COVID-19 2020-10-15 Completed Unive rsity of PFIZER VACCINE 00:00:00 [facility] Branch SARS-COV-2 COVID-19 2020-10-15 Completed Unive rsity of PFIZER VACCINE 00:00:00 [facility] Branch SARS-COV-2 COVID-19 2020-10-15 Completed Unive rsity of PFIZER VACCINE 00:00:00 [facility] Branch SARS-COV-2 COVID-19 2020-09-22 Completed Unive rsity of PFIZER VACCINE 00:00:00 [facility] Branch SARS-COV-2 COVID-19 2020-09-22 Completed Unive rsity of PFIZER VACCINE 00:00:00 [facility] Branch SARS-COV-2 COVID-19 2020-09-22 Completed Unive rsity of PFIZER VACCINE 00:00:00 [facility] Branch SARS-COV-2 COVID-19 2020-09-22 Completed Unive rsity of PFIZER VACCINE 00:00:00 [facility] Branch SARS-COV-2 COVID-19 2020-09-22 Completed Unive rsity of PFIZER VACCINE 00:00:00 [facility] Branch SARS-COV-2 COVID-19 2020-09-22 Completed Unive rsity of PFIZER VACCINE 00:00:00 [facility] Branch SARS-COV-2 COVID-19 2020-09-22 Completed Unive rsity of PFIZER VACCINE 00:00:00 [facility] Branch SARS-COV-2 COVID-19 2020-09-22 Completed Unive rsity of PFIZER VACCINE 00:00:00 [facility] Branch SARS-COV-2 COVID-19 2020-09-22 Completed Unive rsity of PFIZER VACCINE 00:00:00 [facility] SARS-COV-2 COVID-19 2020-09-22 Completed Unive rsity of PFIZER VACCINE 00:00:00 [facility] SARS-COV-2 COVID-19 2020-09-22 Completed Unive rsity of PFIZER VACCINE 00:00:00 [facility] SARS-COV-2 COVID-19 2020-09-22 Completed Unive rsity of PFIZER VACCINE 00:00:00 [facility] Vital Signs Vital Name Observation Time Observation Value Comments Source Systolic blood 2022-04-10 20:23:00 149 mm[Hg] Univer sity of pressure [facility] Diastolic blood 2022-04-10 20:23:00 86 mm[Hg] Unive rsity of pressure [facility] Heart rate 2022-04-10 20:23:00 84 /min [facility] Body height 2022-04-10 20:14:00 157.5 cm [facility] Body weight 2022-04-10 20:14:00 85.186 kg [facility] BMI 2022-04-10 20:14:00 34.35 kg/m2 [facility] Body Temperature 2019-02-24 19:15:00 98.0 [degF] [facility] Heart Rate 2019-02-24 19:15:00 94 /min [facility] Respiratory rate 2019-02-24 19:15:00 20 /min [facility] BP Systolic 2019-02-24 19:15:00 134 mm[Hg] [facility] BP Diastolic 2019-02-24 19:15:00 71 mm[Hg] [facility] Heart Rate 2019-02-24 18:32:00 94 /min [facility] Respiratory rate 2019-02-24 18:32:00 20 /min [facility] Respiratory rate 2019-02-24 18:32:00 20 /[facility] Systolic 2019-02-24 18:32:00 134 mm[facility]Hg[facility] 2019-02-24 18:32:00 134 mm[Hg] [facility] Health BP Diastolic 2019-02-24 18:32:00 71 mm[Hg] [facility] BP Diastolic 2019-02-24 18:32:00 71 mm[Hg] [facility] Weight 2019-02-24 18:32:00 180 [lb_av] [facility] al Weight 2019-02-24 18:32:00 180 [lb_av] [facility] BMI (Body Mass 2019-02-24 18:32:00 32.9 kg/m2 [facility] Index) [facility] BMI (Body Mass 2019-02-24 18:32:00 32.9 kg/m2 [facility] Index) Procedures Procedure Date / Time Performing Clinician Source Performed ASSIGNMENT OF BENEFITS 2022-04-10 20:09:33 Doctor Unassigned, [facility] [place] [facility] INSURANCE CORRESPONDENCE 2021-05-12 06:01:00 Doctor Unassigned, [facility] [place] [facility] Plan of Care Planned Activity Planned Date Details Comments Source Future Scheduled Test 2022-04-16 COVID-19 VACCINE (#1) [facility] 10:44:07 [code = COVID-19 Hospital VACCINE (#1)] Future Scheduled Test 2022-04-16 Pneumococcal Vaccine: [facility] 10:44:07 Pediatrics (0 to 5 Hospital Years) and At-Risk Patients (6 to 64 Years) (1 - PCV) [code = Pneumococcal Vaccine: Pediatrics (0 to 5 Years) and At-Risk Patients (6 to 64 Years) (1 - PCV)] Future Scheduled Test 2022-04-16 Hepatitis C screening [facility] 10:44:07 (procedure) [code = Hospital 944722903] Future Scheduled Test 2022-04-16 Screening for Metho dist 10:44:07 malignant neoplasm of Hospit al cervix (procedure) [code = 823344315] Future Scheduled Test 2022-04-16 BREAST CANCER Metho dist 10:44:07 SCREENING [code = Hospital BREAST CANCER SCREENING] Future Scheduled Test 2022-04-16 COLONOSCOPY SCREENING [facility] 10:44:07 [code = COLONOSCOPY Hospital SCREENING] Future Scheduled Test 2022-04-16 SHINGLES VACCINES (1 [facility] 10:44:07 of 2) [code = SHINGLES Hospi angel VACCINES (1 of 2)] Future Scheduled Test 2022-04-16 INFLUENZA VACCINE M ethodist 10:44:07 [code = INFLUENZA Hospital VACCINE] Future Scheduled Test 2022-03-28 COVID-19 VACCINE (#1) [facility] 06:17:38 [code = COVID-19 Hospital VACCINE (#1)] Future Scheduled Test 2022-03-28 Pneumococcal Vaccine: [facility] 06:17:38 Pediatrics (0 to 5 Hospital Years) and At-Risk Patients (6 to 64 Years) (1 - PCV) [code = Pneumococcal Vaccine: Pediatrics (0 to 5 Years) and At-Risk Patients (6 to 64 Years) (1 - PCV)] Future Scheduled Test 2022-03-28 Hepatitis C screening [facility] 06:17:38 (procedure) [code = Hospital [id number]] Future Scheduled Test 2022-03-28 Screening for Metho dist 06:17:38 malignant neoplasm of Hospit al cervix (procedure) [code = 439902532] Future Scheduled Test 2022-03-28 BREAST CANCER Metho dist 06:17:38 SCREENING [code = Hospital BREAST CANCER SCREENING] Future Scheduled Test 2022-03-28 COLONOSCOPY SCREENING [facility] 06:17:38 [code = COLONOSCOPY Hospital SCREENING] Future Scheduled Test 2022-03-28 SHINGLES VACCINES (1 [facility] 06:17:38 of 2) [code = SHINGLES Hospi angel VACCINES (1 of 2)] Future Scheduled Test 2022-03-28 INFLUENZA VACCINE M ethodist 06:17:38 [code = INFLUENZA Hospital VACCINE] Future Scheduled Test 2022-02-21 COVID-19 VACCINE (#1) [facility] 20:21:57 [code = COVID-19 Hospital VACCINE (#1)] Future Scheduled Test 2022-02-21 Pneumococcal Vaccine: [facility] 20:21:57 Pediatrics (0 to 5 Hospital Years) and At-Risk Patients (6 to 64 Years) (1 - PCV) [code = Pneumococcal Vaccine: Pediatrics (0 to 5 Years) and At-Risk Patients (6 to 64 Years) (1 - PCV)] Future Scheduled Test 2022-02-21 Hepatitis C screening [facility] 20:21:57 (procedure) [code = Hospital [id number]] Future Scheduled Test 2022-02-21 Screening for Metho dist 20:21:57 malignant neoplasm of Hospit al cervix (procedure) [code = 358798398] Future Scheduled Test 2022-02-21 BREAST CANCER Metho dist 20:21:57 SCREENING [code = Hospital BREAST CANCER SCREENING] Future Scheduled Test 2022-02-21 COLONOSCOPY SCREENING [facility] 20:21:57 [code = COLONOSCOPY Hospital SCREENING] Future Scheduled Test 2022-02-21 SHINGLES VACCINES (1 [facility] 20:21:57 of 2) [code = SHINGLES Hospi angel VACCINES (1 of 2)] Future Scheduled Test 2022-02-21 INFLUENZA VACCINE M ethodist 20:21:57 [code = INFLUENZA Hospital VACCINE] Future Scheduled Test 2021-10-31 HEPATITIS B VACCINES [facility] 12:20:25 (1 of 3 - 3-dose Hospital series) [code = HEPATITIS B VACCINES (1 of 3 - 3-dose series)] Future Scheduled Test 2021-10-31 COVID-19 VACCINE (#1) [facility] 12:20:25 [code = COVID-19 Hospital VACCINE (#1)] Future Scheduled Test 2021-10-31 Pneumococcal Vaccine: [facility] 12:20:25 Pediatrics (0 to 5 Hospital Years) and At-Risk Patients (6 to 64 Years) (1 - PCV) [code = Pneumococcal Vaccine: Pediatrics (0 to 5 Years) and At-Risk Patients (6 to 64 Years) (1 - PCV)] Future Scheduled Test 2021-10-31 Hepatitis C screening [facility] 12:20:25 (procedure) [code = Hospital [id number]] Future Scheduled Test 2021-10-31 Screening for Metho dist 12:20:25 malignant neoplasm of Hospit al cervix (procedure) [code = 217754927] Future Scheduled Test 2021-10-31 BREAST CANCER Metho dist 12:20:25 SCREENING [code = Hospital BREAST CANCER SCREENING] Future Scheduled Test 2021-10-31 COLONOSCOPY SCREENING [facility] 12:20:25 [code = COLONOSCOPY Hospital SCREENING] Future Scheduled Test 2021-10-31 SHINGLES VACCINES (1 [facility] 12:20:25 of 2) [code = SHINGLES Hospi angel VACCINES (1 of 2)] Future Scheduled Test 2021-10-31 INFLUENZA VACCINE M ethodist 12:20:25 [code = INFLUENZA Hospital VACCINE] Future Scheduled Test 2021-10-25 HEPATITIS B VACCINES [facility] 09:31:21 (1 of 3 - 3-dose Hospital series) [code = HEPATITIS B VACCINES (1 of 3 - 3-dose series)] Future Scheduled Test 2021-10-25 COVID-19 VACCINE (#1) [facility] 09:31:21 [code = COVID-19 Hospital VACCINE (#1)] Future Scheduled Test 2021-10-25 Pneumococcal Vaccine: [facility] [facility] 09:31:21 Pediatrics (0 to 5 Hospital Years) and At-Risk Patients (6 to 64 Years) (1 - PCV) [code = Pneumococcal Vaccine: Pediatrics (0 to 5 Years) and At-Risk Patients (6 to 64 Years) (1 - PCV)] Future Scheduled Test 2021-10-25 Hepatitis C screening [facility] [facility] 09:31:21 (procedure) [code = Hospital [id number]] Future Scheduled Test 2021-10-25 Screening for Metho dist 09:31:21 malignant neoplasm of Hospit al cervix (procedure) [code = 239928029] Future Scheduled Test 2021-10-25 BREAST CANCER Metho dist 09:31:21 SCREENING [code = Hospital BREAST CANCER SCREENING] Future Scheduled Test 2021-10-25 COLONOSCOPY SCREENING [facility] [facility] 09:31:21 [code = COLONOSCOPY Hospital SCREENING] Future Scheduled Test 2021-10-25 SHINGLES VACCINES (1 [facility] 09:31:21 of 2) [code = SHINGLES Hospi angel VACCINES (1 of 2)] Future Scheduled Test 2021-10-25 INFLUENZA VACCINE M ethodist 09:31:21 [code = INFLUENZA Hospital VACCINE] Future Scheduled Test Streptococcus pyogenes ESPERANZA Morales culture [code = [facility] 88202-7] Goal Patient referral [code RE Morales = [id number] ] [facility] Eustachian Tube [facility] - J [facility]per Problems [facility] Eustachian Tube CHRISTUS - J asper Problems (DC) [facility] Hospi angel Encounters Start End Encounter Admission Attending Care Care Encounter Source Date/Time Date/Time Type Type Clinicians Facility Department ID 2021-04-05 Outpatient Issa [facility] SOR [id number] Univers 13:48:24 [facility] 2021-03-14 Outpatient Issa [facility] SOR [id number] Univers 11:49:06 [facility] 2020-12-30 Emergency [facility] [id number] Univers 16:14:45 [facility] 2020-12-30 Emergency [facility] [id number] Univers 05:54:41 itestefania [facility] 2022-04-10 2022-04-10 [facility] [id number] Univers 14:45:00 15:18:38 CLOVER [facility] 2022-04-10 2022-04-10 [facility] [id number] Univers 14:45:00 15:18:38 Visit Clover Mandujano [facility] [id number] it y [facility] 4.2.7.2.686 Bill as CHRISTINA?BLEA [phone] Ak dical [address] MEDICAL OFFICE [facility] 2022-04-10 2022-04-10 Orders Doctor YOLIS [id number] Univers 00:00:00 00:00:00 Only Unassigned, [place] 350.1.13.10 ity of [place] [facility] 4.2.7.2.686 Bill as [phone] [address] 2022-04-08 2022-04-08 [facility] [id number] Univers 14:00:00 14:00:00 [facility] 2021-12-27 2021-12-27 [facility] [id number] Univers 08:30:00 08:30:00 CLOVER [facility] 2021-12-24 2021-12-24 Out[facility] [id number] Univers 14:45:00 14:45:[facility] 2021-12-19 2021-12-19 [facility]phone [facility] [id number] Univers 00:00:00 00:00:00 Clover Nazia LU 350.1.13.10 i ty of [facility] [place].2.7.2.[place] [phone] Ak dical NAL [address] [place] [address] 2021-11-25 2021-11-25 Outpatient FOG_Brown_B AOSM AOSM [id number] [id number] Traci 00:00:00 00:00:00 Trina [id number] [facility] 2021-11-14 2021-11-14 Outpatient FOG_Brown_B AOSM AOSM [id number] [id number] Traci 00:00:00 00:00:00 Trina [id number] [facility] 2021-11-11 2021-11-11 Outpatient FOG_Brown_B AOSM AOSM [id number] [id number] Traci 00:00:00 00:00:00 Trina [id number] [facility] 2021-08-31 2021-08-31 [facility] 1.2.840.114 [id number] Univers 00:00:00 00:00:00 [facility] 350.1.13.10 it y of [place] 4.2.7.2.686 Bill as CHRISTINA?BLEA [phone] Ak diccholo FALL [address] [facility] 2021-07-23 2021-07-23 [facility] [id number] Univers 00:00:00 00:00:00 [facility] 350.1.13.10 it y of [place] 4.2.7.2.686 Bill as CHRISTINA?BLEA [phone] Ak dical COLIN [address] [facility] 2021-06-06 2021-06-06 Outpatient FOG_Brown_B AOSM AOSM [id number] 4025-20 Traci 10:52:00 10:52:00 Trina [id number] [facility] 2021-06-06 2021-06-06 Outpatient FOG_Brown_B AOSM AOSM 544 4025-20 Traci 10:52:00 10:52:00 Trina [id number] [facility] 2021-06-06 2021-06-06 Outpatient FOG_Brown_B AOSM AOSM 544 4025-20 Traci 00:00:00 00:00:00 Trina [id number] [facility] 2021-05-15 2021-05-15 [place] 1.2.840.114 [id number] Univers 00:00:00 00:00:00 [facility] 350.1.13.10 it y of [place] 4.2.7.2.686 Bill as CHRISTINA?BLEA [phone] Ak berta SAHW [address] [facility] OFFICE [facility] 2021-05-12 2021-05-12 Orders Doctor YOLIS 1.2.840.114 [id number] Univers 00:00:00 00:00:00 Only Unassigned, [place] 350.1.13.10 ity of [place] [facility] 4.2.7.2.686 Bill as [phone] [address] 2021-05-11 2021-05-11 Outpatient R MALLY [facility] [id number] Univers 10:45:00 10:45:00 DANIEL jose r [facility] 2021-05-11 2021-05-11 Telephone [facility] 1.2.840.114 [id number] Univers 00:00:00 00:00:00 Clover Mandujano [employer] [place] 350.1.13.10 it y of [place] 4.2.7.2.686 Bill as CHRISTINA?BLEA [phone] Ak berta SHAW [address] [facility] OFFICE [facility] 2021-05-08 2021-05-08 Telephone [facility] 1.2.840.114 [id number] Univers 00:00:00 00:00:00 Clover Mandujano [employer] [place] 350.1.13.10 it y of [place] 4.2.7.2.686 Bill as CHRISTINA?BLEA [phone] Ak berta SHAW [address] [place] [address] OFFICE [facility] 2021-05-07 2021-05-07 Telephone [facility] 1.2.840.114 [id number] Univers 00:00:00 00:00:00 Clover Mandujano St[employer] [place] 350.1.13.10 it y of [place] 4.2.7.2.686 Bill as CHRISTINA?BLEA [phone] Ak berta SHAW [address] [place] [address] OFFICE [facility] 2021-04-27 2021-04-27 [facility] [id number] Univers 09:00:00 09:00:00 CLOVERYENY odell [facility] 2021-04-27 2021-04-27 Out[facility] [id number] Univers 00:00:00 00:00:00 CLOVER odell [facility] 2021-04-23 2021-04-23 Outpatient R MALLY [facility] [id number] Univers 13:30:00 13:30:00 DANIEL odell [facility] 2021-04-20 2021-04-20 Outpatient R KUMAR [facility] [id number] Univers 00:00:00 00:00:00 CLOVER odell [facility] 2021-04-20 2021-04-20 Telephone [facility] 1.2.840.114 [id number] Univers 00:00:00 00:00:00 Clover [employer] 350.1.13.10 it y of [place] 4.2.7.2.686 Bill as CHRISTINA?BLEA [phone] Ak berta SHAW [address] [place] [address] OFFICE [facility] 2021-04-17 2021-04-17 Telephone [facility] 1.2.840.114 [id number] Univers 00:00:00 00:00:00 Clover Stellarcasa [place] 350.1.13.10 it y of [place] 4.2.7.2.686 Bill as CHRISTINA?BLEA [phone] Ak berta SHAW [address] [place] [address] 2021-04-17 2021-04-17 Telephone [facility] 1.2.840.114 [id number] Univers 00:00:00 00:00:00 Clover [employer] 350.1.13.10 it y of [place] 4.2.7.2.686 Bill as CHRISTINA?BLEA [phone] Ak berta SHAW [address] [place] [address] OFFICE [facility] 2021-04-11 2021-04-11 Telephone [facility] 1.2.840.114 [id number] Univers 00:00:00 00:00:00 Clover [employer] 350.1.13.10 it y of [place] 4.2.7.2.686 Bill as CHRISTINA?BLEA [phone] Ak berta SHAW [address] [place] [address] OFFICE [facility] 2021-04-11 2021-04-11 Telephone [facility] 1.2.840.114 [id number] Univers 00:00:00 00:00:00 [employer] 350.1.13.10 it [facility] 4.2.7.2.686 Bill as CHRISTINA?BLEA [phone] Ak berta SHAW [address] [facility] 2021-04-06 2021-04-06 Outpatient Issa HEATH [facility] [id number] Univers 08:15:00 08:15:00 CLOVER estefania [facility] 2021-04-06 2021-04-06 Telephone [facility] [id number] Univers 00:00:00 00:00:00 Daniel De La Paz [employer] [place] 350.1.13.10 it [facility] 4.2.7.2.686 Bill as CHRISTINA?BLEA [phone] Ak berta SHAW [address] [place] [address] 2021-04-05 2021-04-05 Outpatient [facility] [id number] Univers 13:15:00 13:43:22 DANIEL [facility] 2021-04-05 2021-04-05 Office [facility] 1.2.840.114 [id number] Univers 13:15:00 13:30:00 Visit Daniel Brain [facility] 350.1.13.10 it y of [place] 4.2.7.2.686 Bill as CHRISTINA?BLEA [phone] Ak inocenciocholo SHAW [address] [place] [address] 2021-04-05 2021-04-05 Outpatient Issa BAL [facility] [id number] Univers 13:15:00 13:15:00 [facility] 2021-04-05 2021-04-05 Letter Doctor LAGOS 1.2.840.114 [id number] Univers 00:00:00 00:00:00 (Out) Unassigned, [place] 350.1.13.10 ity of [place] [facility] 4.2.7.2.686 Bill as [phone] [address] 2021-04-05 2021-04-05 Letter Doctor LAGOS 1.2.840.114 [id number] Univers 00:00:00 00:00:00 (Out) Unassigned, [place] 350.1.13.10 ity of [place] [facility] 4.2.7.2.686 Bill as [phone] [facility] [address] 2021-04-03 2021-04-03 Outpatient R MALLY [facility] [id number] Univers 13:00:00 13:00:00 DANIEL ity [facility] 2021-04-02 2021-04-02 Outpatient [facility] [id number] Univers 10:30:00 10:30:00 SENDIL ity [facility] 2021-04-02 2021-04-02 Outpatient R BASSEM [facility] [id number] Univers 10:30:00 10:30:00 SENDIL [facility] 2021-03-29 2021-03-29 Out[facility] [id number] Univers 13:00:00 13:00:00 [facility] 2021-03-29 2021-03-29 Refill [facility] [id number] Univers 00:00:00 00:00:00 [facility] 350.1.13.10 it y of [place] 4.2.7.2.686 Bill as CHRISTINA?BLEA [phone] [address] MEDICAL OFFICE [facility] 2021-03-29 2021-03-29 Telephone [facility] 1.2.840.114 [id number] Univers 00:00:00 00:00:00 [facility] 350.1.13.10 it y of [place] 4.2.7.2.686 Bill as CHRISTINA?BLEA [phone] [address] MEDICAL OFFICE [facility] 2021-03-28 2021-03-28 Orders Doctor YOLIS 1.2.840.114 [id number] Univers 00:00:00 00:00:00 Only Unassigned, [place] 350.1.13.10 ity of [place] [facility] 4.2.7.2.686 Bill as [phone] [facility] [address] 2021-03-23 2021-03-23 Out[facility] [id number] Univers 11:30:00 11:30:00 CLOVER [facility] 2021-03-20 2021-03-20 Orders Doctor YOLIS 1.2.840.114 [id number] Univers 00:00:00 00:00:00 Only Unassigned, [place] 350.1.13.10 ity of [place] [facility] 4.2.7.2.686 Bill as [phone] [address] 2021-03-16 2021-03-16 Telephone [facility] 1.2.840.114 [id number] Univers 00:00:00 00:00:00 Clover Mandujano [employer] [place] 350.1.13.10 it y of [place] 4.2.7.2.686 Bill as CHRISTINA?BLEA [phone] Ak inocenciocholo SHAW [address] [place] [address] OFFICE [facility] 2021-03-15 2021-03-15 Outpatient [facility] [id number] Univers 13:00:00 13:00:00 CLOVER odell [facility] 2021-03-09 2021-03-09 [facility] 1.2.840.114 [id number] Univers 00:00:00 00:00:00 Surgery Clover Mandujano [employer] [place] 350.1.13.10 [facility] 4.2.7.2.686 Bill as CHRISTINA?BLEA [phone] Ak berta [address] 2021-03-05 2021-03-05 Outpatient [facility] [id number] Univers 14:15:00 14:42:32 CLOVER odell [facility] 2021-03-05 2021-03-05 Office [facility] [id number] Univers 14:15:00 14:42:32 Visit Clover L [employer] [place] 350.1.13.10 it y of [place] 4.2.7.2.686 Bill as CHRISTINA?BLEA [phone] Ak berta COLIN [address] [place] [address] OFFICE [facility] 2021-03-05 2021-03-05 Orders Doctor LAGOS 1.2.840.114 [id number] Univers 00:00:00 00:00:00 Only Unassigned, [place] 350.1.13.10 ity of [place] [facility] 4.2.7.2.686 Bill as [phone] [address] 2021-03-05 2021-03-05 Telephone [facility] 1.2.840.114 [id number] Univers 00:00:00 00:00:00 Clover Mandujano HEALTH 350.1.13.10 it y of [place] 4.2.7.2.686 Bill as CHRISTINA?BLEA [phone] Ak berta SHAW [address] MEDICAL OFFICE [facility] 2021-02-12 2021-02-12 Outpatient [facility] [id number] Univers 13:45:00 13:45:00 CLOVER odell [facility] 2021-02-01 2021-02-01 Telephone [facility] 1.2.840.114 [id number] Univers 00:00:00 00:00:00 Clover Mandujano HEALTH 350.1.13.10 it y of [place] 4.2.7.2.686 Bill as CHRISTINA?BLEA [phone] Ak diccholo SHAW [address] MEDICAL OFFICE [facility] 2021-01-29 2021-01-29 Telephone [facility] 1.2.840.114 [id number] Univers 00:00:00 00:00:00 Clover Mandujano HEALTH 350.1.13.10 it y of [place] 4.2.7.2.686 Blil as CHRISTINA?BLEA [phone] Ak berta SHAW [address] [facility] OFFICE [facility] 2021-01-22 2021-01-22 Telephone [facility] 1.2.035.192 [id number] Univers 00:00:00 00:00:00 Sendrebecca LU 350.1.13.10 ity of [place] [phone] Ak diccholo SAENZ [address] [facility] 2021-01-19 2021-01-19 Outpatient [facility] [id number] Univers 10:00:00 23:59:00 SENDIL itestefania [facility] 2021-01-19 2021-01-19 [facility] 1.2.840.114 [id number] Univers 09:54:13 23:59:00 Encounter Sendrebecca LU 350.1.13.10 ity [place] [phone] Ak dical NAL [address] [facility] 2021-01-19 2021-01-19 Outpatient R BASSEM [facility] [id number] Univers 10:00:00 10:00:00 SENDIL ity [facility] 2021-01-19 2021-01-19 Telephone [facility] [id number] Univers 00:00:00 00:00:00 Fernando LU 350.1.13.10 ity [place] [phone] [address] 2021-01-16 2021-01-16 [facility] [id number] Univers 00:00:00 00:00:00 SENDIL ity [facility] 2021-01-16 2021-01-16 Outpatient R BASSEM [facility] [id number] Univers 00:00:00 00:00:00 SENDIL ity [facility] 2020-12-07 2020-12-07 Telephone [facility] [id number] Univers 00:00:00 00:00:00 Sendil Demetri Lu [id number] [id number] Profess[place] [phone] [place] [address] 2020-11-02 2020-11-02 Outpatient Issa LUEVANO [facility] [id number] Univers 00:00:00 00:00:00 SENDIL ity [facility] 2020-10-03 2020-10-03 Outpatient Issa LUEVANO [facility] [id number] Univers 00:00:00 00:00:00 SENDIL ity [facility] 2020-09-21 2020-09-21 [facility] [id number] Univers 15:30:00 15:32:11 SENDIL ity [facility] 2020-09-21 2020-09-21 [facility] [id number] Univers 14:55:58 15:32:11 Visit Sendil Demetri LU [id number] ity of [facility] [place] [phone] Ak dical NAL 059 [facility] 2020-09-21 2020-09-21 [facility] [id number] Univers 14:55:58 15:32:11 Visit Sendrebecca LU 350.1.13.10 ity of [facility] [place] [phone] Ak diccholo NAL [address] [place] [address] 2020-09-21 2020-09-21 [facility] [id number] Univers 15:30:00 15:30:00 SENDIL [facility] 2020-07-27 2020-07-27 [facility] [id number] Univers 08:04:33 23:59:00 CLOVER [facility] 2020-07-27 2020-07-27 [facility] [id number] Univers 08:04:33 23:59:00 Encounter Clover Iniguez [id number] ity of Surgical 4.2.7.2.686 Bill as Specialti [phone] Ak dical es 809 [facility]3] 2020-07-27 2020-07-27 Office [facility] [id number] Univers 07:51:51 09:06:38 Visit [facility] 350.1.13.10 it y of Surgical 4.2.7.2.686 Bill as Specialti [id number] Ak dical es 198 [facility]3] 2020-07-27 2020-07-27 [facility] [id number] Univers 08:00:00 08:00:00 DANIEL [facility] 2020-07-27 2020-07-27 Telephone [facility] [id number] Univers 00:00:00 00:00:00 [facility] [id number] it y of Surgical 4.2.7.2.686 Bill as Specialti [id number] Ak dical 198 [facility]3] 2020-07-11 2020-07-11 Outpatient R MALLY [facility] [id number] Univers 14:00:00 14:00:00 DANIEL ity [facility] 2020-03-29 2020-03-29 Orders Doctor YOLIS [id number] [id number] 00:00:00 00:00:00 Only Unassigned, TIN 350.1.13.10 [facility] 4.2.7.2.686 [id number] 009 2020-03-29 2020-03-29 Orders Doctor YOLIS [id number] [id number] Univers 00:00:00 00:00:00 Only Unassigned, TIN 350.1.13.10 ity of [facility] 4.2.7.2.686 Bill as [id number] [facility] [address] [place] 2020-03-11 2020-03-11 Emergency Goldman, [facility] [id number] 18:06:00 18:59:00 Nidia Lu [id number] [place] 4.2.7.2.686 [place] [phone] [facility] 2020-03-11 2020-03-11 Emergency Goldman, [facility] 1.2.840.114 [id number] [facility] 18:06:00 18:59:00 Nidia Lu [id number] i ty of [place]2.[place] [phone] [facility] [address] [place] [address] 2020-01-17 2020-01-17 Emergency Goldman, [facility] 1.2.840.114 [id number] 16:55:00 19:20:00 Nidia Lu [id number] [place] 4.2.7.2.686 [place] [id number] [facility] 2020-01-17 2020-01-17 Emergency Goldman, [facility] 1.2.840.114 [id number] [facility] 16:55:00 19:20:00 Nidia Lu [id number] i Birgit 4.2.7.2.686 [facility] [phone] [place] [id number] [place] 2019-05-25 2019-05-25 Outpatient SIFF, [facility] [id number] [place] 00:00:00 00:00:[address] 2019-05-25 2019-05-25 Outpatient SIFF, [facility] [id number] [place] 00:00:00 00:00:[address] 2019-05-25 2019-05-25 Outpatient SIFF, [facility] [id number] [place] 00:00:00 00:00:[address] 2019-05-25 2019-05-25 Outpatient SIFF, [facility] [id number] [place] 00:00:00 00:00:[address] 2019-02-24 2019-02-24 Departed [facility] [id number] [place] 18:14:00 19:15:[address] 2019-02-24 2019-02-24 Departed [facility] [id number] [place] 18:14:00 19:15:[address] 2019-02-10 2019-02-10 Emergency X ESTELLA [facility] ERT [id number] Univers 18:48:57 21:06:00 MARYLOU odell [facility] Results Test Description Test Time Test Comments Results Result Comments Source Throat Streptococcus pyogenes antigen detection 2019-02-24 1 8:38:00 Test Item Value Reference Range Interpretation Comme nts Group A Streptococcus Screen (test code = 33168-7) Negative [facility] Streptococcus pyogenes antigen [id number] 18:38:00 Test Item Value Reference Range Interpretation Comments Group A Streptococcus Screen (test Negative code = 71960-2)
[2022-04-16] MEDS ORDERED: HYDROCODONE/APAP 5/325 MG TAB ONE (12:09)
--- NOTE | 2022-04-16 12:30 | EDPHYS ---
Physician Documentation [facility] Name: Vicky Walker Age: 61 yrs Sex: Female : 1960 Arrival Date: 04/16/2022 Time: 10:46 Bed DX3 Private MD: ED Physician Kenton Thompson HPI: 04/16 12:13 This 61 yrs old Female presents to ER via EMS with complaints of Knee Pain. ms3 12:13 61-year-old female with past medical history of anxiety, chronic pain, GERD, ms3 hypertension, psoriasis presents for right knee pain for 2 years that has become worse over the last 3 days. Patient states she has seen Dr. Carrasco and is planning for total knee replacement. Patient states pain is a 10/10. Patient states she has taken ibuprofen and gabapentin without relief.. Historical: - Allergies: 11:37 PENICILLINS; jl7 11:37 Toradol; jl7 - Home Meds: 11:37 Flonase 50 mcg/actuation Nasal spsn 1 spray 2 times per day [Active]; lisinopril 10 mg jl7 Oral tab once daily [Active]; loratadine 10 mg Oral tab 1 tab once daily [Active]; omeprazole 20 mg Oral cpDR 1 cap once daily [Active]; Xanax 1 mg Oral tab 1 tab 3 times per day [Active]; gabapentin oral [Active]; - PMHx: 11:37 Anxiety; Chronic pain; GERD; Hypertension; psoriasis; jl7 - Immunization history:: Client reports receiving the 2nd dose of the Covid vaccine. - Social history:: Smoking status: Patient reports the use of cigarette tobacco products, smokes one-half pack cigarettes per day. ROS: 12:13 Constitutional: Negative for fever, and chills. Eyes: Negative for injury, pain, ms3 redness, and discharge, Neck: Negative for injury, pain, and swelling, Cardiovascular: Negative for chest pain, and palpitations. Respiratory: Negative for shortness of breath, cough, wheezing, and pleuritic chest pain, Abdomen/GI: Negative for abdominal pain, nausea, vomiting, diarrhea, and constipation. 12:13 MS/extremity: Positive for pain, of the right knee. 12:13 All other systems are negative. Exam: 12:13 Constitutional: This is a well developed, well nourished patient who is awake, alert, ms3 and in no acute distress. Head/Face: Normocephalic, atraumatic. ENT: Nares patent. No nasal discharge, no septal abnormalities noted. Tympanic membranes are normal and external auditory canals are clear. Oropharynx with no redness, swelling, or masses, exudates, or evidence of obstruction, uvula midline. Mucous membranes moist. Chest/axilla: Normal chest wall appearance and motion. Nontender with no deformity. Cardiovascular: Regular rate and rhythm with a normal S1 and S2. No gallops, murmurs, or rubs. Normal PMI, no JVD. No pulse deficits. Respiratory: Lungs have equal breath sounds bilaterally, clear to auscultation and percussion. No rales, rhonchi or wheezes noted. No increased work of breathing, no retractions or nasal flaring. Abdomen/GI: Soft, non-tender, with normal bowel sounds. No distension or tympany. No guarding or rebound. No evidence of tenderness throughout. 12:13 Musculoskeletal/extremity: Extremities: noted in the right knee: pain. Vital Signs: 11:35 BP 129 / 105; Pulse 77; Resp 17; Temp 97.9; Pulse Ox 95% on R/A; Weight 81.19 kg; jl7 Height 5 ft. 2 in. (157.48 cm); Pain 7/10; 11:35 Body Mass Index 32.74 (81.19 kg, 157.48 cm) jl7 MDM: 10:48 Patient medically screened. ms3 12:13 Differential diagnosis: Osteoarthritis vs MSK pain vs ligamentous injury. Data ms3 reviewed: vital signs, nurses notes, and as a result, I will discharge patient. I considered the following discharge prescriptions or medication management in the emergency department I discussed and recommended Over The Counter medications, Medications were administered in the Emergency Department. See MAR. Counseling: I had a detailed discussion with the patient and/or guardian regarding: the historical points, exam findings, and any diagnostic results supporting the discharge/admit diagnosis, the need for outpatient follow up, to return to the emergency department if symptoms worsen or persist or if there are any questions or concerns that arise at home. ED course: Discussed knee immobilizer and crutches with patient. Patient to follow-up Dr. Hernandez in 2 to 3 days. Patient understands and agrees with plan. All questions were answered. Return precautions discussed include worsening symptoms, or any other concerns. 04/16 11:04 Order name: Knee Immobilizer; Complete Time: 12:27 ms3 04/16 12:12 Order name: Crutches; Complete Time: 12: ms3 Administered Medications: 12:17 Drug: HYDROcodone-acetaminophen 5 mg-325 mg 1 tabs Route: PO; ap3 12:38 Follow up: Response: No adverse reaction; Pain is decreased ap3 Disposition Summary: 04/16/22 12:30 Discharge Ordered Location: Home ms3 Condition: Stable ms3 Diagnosis - Pain in right knee ms3 Followup: ms3 - With: Garcia Carrasco MD - When: 2 - 3 days - Reason: Recheck today's complaints Discharge Instructions: - Discharge Summary Sheet ms3 - Acute Knee Pain, Adult ms3 Forms: - Medication Reconciliation Form ms3 - Thank You Letter ms3 - Antibiotic Education ms3 - Prescription Opioid Use ms3 Prescriptions: - Tylenol-Codeine #3 300 mg-30 mg Oral - take 1 tablet by ORAL route every 6 hours; 12 tablet; Refills: 0, Product ms3 Selection Permitted Signatures: Malvin Mccann RN RN jl7 India Acosta RN RN ap3 Kenton Thompson DO DO ms3
--- NOTE | 2022-04-16 12:30 | ER ---
Nurse's Notes [facility] Name: Vicky Walker Age: 61 yrs Sex: Female : 1960 Arrival Date: 04/16/2022 Time: 10:46 Bed DX3 Private MD: Diagnosis: Pain in right knee Presentation: 04/16 11:35 Chief complaint: EMS states: Toned out for chronic knee pain, needs surgery, can't take jl7 the pain today. Coronavirus screen: At this time, the client does not indicate any symptoms associated with coronavirus-19. Ebola Screen: No symptoms or risks identified at this time. Initial Sepsis Screen: Does the patient meet any 2 criteria? No. Patient's initial sepsis screen is negative. Does the patient have a suspected source of infection? No. Patient's initial sepsis screen is negative. Risk Assessment: Do you want to hurt yourself or someone else? Patient reports no desire to harm self or others. Onset of symptoms is unknown. Care prior to arrival: None. 11:35 Method Of Arrival: EMS: [facility] jl7 11:35 Acuity: PIYUSH 4 jl7 Triage Assessment: 11:37 General: Appears in no apparent distress. uncomfortable, Behavior is calm, cooperative, jl7 appropriate for age. Pain: Complains of pain in right knee Pain currently is 7 out of 10 on a pain scale. Historical: - Allergies: 11:37 PENICILLINS; jl7 11:37 Toradol; jl7 - Home Meds: 11:37 Flonase 50 mcg/actuation Nasal spsn 1 spray 2 times per day [Active]; lisinopril 10 mg jl7 Oral tab once daily [Active]; loratadine 10 mg Oral tab 1 tab once daily [Active]; omeprazole 20 mg Oral cpDR 1 cap once daily [Active]; Xanax 1 mg Oral tab 1 tab 3 times per day [Active]; gabapentin oral [Active]; - PMHx: 11:37 Anxiety; Chronic pain; GERD; Hypertension; psoriasis; jl7 - Immunization history:: Client reports receiving the 2nd dose of the Covid vaccine. - Social history:: Smoking status: Patient reports the use of cigarette tobacco products, smokes one-half pack cigarettes per day. Screenin:37 [facility] ED Fall Risk Assessment (Adult) History of falling in the last 3 months, ap3 including since admission No falls in past 3 months (0 pts). Abuse screen: Denies threats or abuse. Nutritional screening: No deficits noted. Tuberculosis screening: No symptoms or risk factors identified. Vital Signs: 11:35 BP 129 / 105; Pulse 77; Resp 17; Temp 97.9; Pulse Ox 95% on R/A; Weight 81.19 kg; jl7 Height 5 ft. 2 in. (157.48 cm); Pain 7; 11:35 Body Mass Index 32.74 (81.19 kg, 157.48 cm) jl7 ED Course: 10:46 Patient arrived in ED. jl7 10:48 Kenton Thompson DO is Attending Physician. ms3 11:37 Triage completed. jl7 11:37 Arm band placed on right wrist. jl7 12:01 India Acosta, TANISHA is Primary Nurse. ap3 12:28 Crutch training done. Knee immobilizer applied on right knee. em1 12:30 Garcia Rdz MD is Referral Physician. ms3 12:37 Patient has correct armband on for positive identification. Pulse ox on. NIBP on. ap3 12:37 No provider procedures requiring assistance completed. Patient did not have IV access ap3 during this emergency room visit. Administered Medications: 12:17 Drug: HYDROcodone-acetaminophen 5 mg-325 mg 1 tabs Route: PO; ap3 12:38 Follow up: Response: No adverse reaction; Pain is decreased ap3 Medication: 12:37 VIS not applicable for this client. ap3 Outcome: 12:30 Discharge ordered by . ms3 12:37 Discharged to home with crutches. ap3 12:37 Condition: good 12:37 Discharge instructions given to patient, Instructed on crutch walking, Demonstrated understanding of instructions, follow-up care, medications, crutch walking, Prescriptions given X 1. 12:37 Patient left the ED. ap3 Signatures: Dawood Santiago em1 Malvin Mccann RN RN jl7 India Acosta RN RN ap3 Kenton Thompson DO DO ms3
[2022-04-16 12:47] VITALS: BP 129/105; TEMP 97.9; O2SAT 95
== END 2022-04-16 12:37 | disposition home or self-care (01) ==
LOC: ER 10:41
DX: M25.561 Pain in right knee (principal); I10 Essential (primary) hypertension; F41.9 Anxiety disorder, unspecified; F17.210 Nicotine dependence, cigarettes, uncomplicated; Z88.0 Allergy status to penicillin; Z88.5 Allergy status to narcotic agent

== ENCOUNTER 2022-06-25 08:19 | Emergency (ER) | payer OTHER ==
--- OUTSIDE RECORDS SUMMARY | 2022-06-25 08:29 | XMS REPORT | Continuity of Care Document ---
:1960 Author Organization [facility] t Address [address] [facility] [address] [place] [address] Care Team Providers Name Role Phone ADAM ANTUNEZ Primary Care Physician GARCIA HEATH Attending Clinician Unavailable DANIEL BAL Attending Clinician Unavailable Garcia Heath MD Attending Clinician Daniel Garner Attending Clinician Doctor Unassigned, [place] Attending Clinician Unavailable Only, Adc Test Attending Clinician Unavailable Pob, Adc Lab Main Attending Clinician Unavailable FERNANDO AGUILERA Attending Clinician Unavailable NGA ACOSTA Attending Clinician Unavailable CAL_Jazmyn Attending Clinician Unavailable MARYLOU SORIA Attending Clinician Unavailable Marylou Guzman Attending Clinician Nga Arias Attending Clinician SHAKILA LUEVANO Attending Clinician Unavailable Luevano MD, Sendil K.H. Attending Clinician John SANCHEZ, Fernando Attending Clinician Nidia Vaughn Attending Clinician CARLOS MAYO Attending Clinician Unavailable GARCIA HEATH Admitting Clinician Unavailable CAL_Maxx_Mark_ Admitting Clinician Unavailable MARYLOU SORIA Admitting Clinician Unavailable SHAKILA LUEVANO Admitting Clinician Unavailable Payers Payer Name Policy Type Policy Number Effective Date Expiration Date Brain kim [facility] DUAL [id number] 2022 COMP HMO D SNP 00:00:00 [facility] [id number] 2022 STAR PLUS 00:00:00 [employer] [place] [id number] 2020 CLASSIC/VALUE 00:00:00 MEDICARE PART A \T\ [id number] 2011 B 00:00:00 MEDICAID [facility] [id number] 2010 00:00:00 [employer] (MEDICARE [id number] REPLACEMENT/ADVANTA GE - PPO) [facility] [id number] 2016 [facility] (MEDICAID 00:00:00 HMO) [employer] CHOICE [id number] 2021 00:00:00 WELLCARE (MEDICARE [id number] 2021 REPLACEMENT/ADVANTA 00:00:00 GE - PPO) Problems Condition Condition Condition Status Onset Resolution Last Treating Co mments Source Name Details Category Date Date Treatment Clinician Date Primary Primary Disease Active Overview: Univ ers osteoarthr osteoarthr 1-10 Formatt[place] ity of itis of itis of 00:00: g of this [place] right knee right knee 00 note Me dical might be Branch different from the original. Added automatic ally from request for surgery [id number] Fracture, Fracture, Disease Active Met Ezekiel Ocampo, 2-24 st left, left, 00:00: Hospita closed closed 00 l Obesity Obesity Disease Active Univers (BMI (BMI 5-05 ity of 30-39.9) 30-39.9) 00:00: [place] [address] Medical Branch Chest pain Chest pain Disease Active U nivers 5-04 ity of 00:00: [place] 00 Medical Branch Right foot Right foot Disease Active 2015-03 U nivers pain pain 2-14 ity of 00:00: [place] Medical Branch Left Problem Active CHRISTU against [...] of tobacco Cigarette Smoker University of use [facility] Exposure to 2022-06-07 2022-06-17 Not sure [facility] SARS-CoV-2 (event) 00:00:00 15:55:00 [facility] Tobacco use and 2022-04-10 2022-04-10 Smokeless Universit y of exposure 00:00:00 00:00:00 tobacco non-user [facility] Cigarettes smoked 2019-05-25 2019-05-[address] current (pack per 00:00:00 00:00:00 Hospita l day) - Reported Cigarette 2019-05-25 2019-05-25 [facility] pack-years 00:00:00 00:00:00 Hospital Alcohol intake 2019-05-25 2019-05-25 0 /d [facility] 00:00:00 00:00:00 Hospital Sex Assigned At [birth year] [facility] 00:00:00 00:00:00 Hospital Smoking Status Start Date Stop Date Source Smokes tobacco daily 2022-04-10 00:00:00 [facility] Light tobacco 2019-02-24 18:35:00 [facility] smoker Medications Ordered Filled Start Stop Current Ordering Indication Dosage Frequency Signature Comments Components Source Medication Medication Date Date Medication? Clinician (SIG) Name Name omeprazole 2022-0 Yes 40mg Take 1 Unive rs 40 mg 4-17 capsule by ity of capsule 15:48: mouth in [place] [address] the Medical morning. Branch omeprazole 2022-0 Yes 40mg Take 1 Unive rs 40 mg 4-17 capsule by ity of capsule 15:48: mouth in [place] [address] the Medical morning. Branch omeprazole 2022-0 Yes 40mg Take 1 Unive rs 40 mg 4-17 capsule by ity of capsule 15:48: mouth in [place] [address] the Medical morning. Branch ALPRAZolam 0 Yes 1mg Take 1 Unive rs 1 mg tablet 4-17 tablet by ity of 15:46: mouth in [place] [address] the Medical morning Branch and 1 tablet at noon and 1 tablet in the evening. loratadine 2022-0 Yes 10mg Take 1 Unive rs 10 mg 4-17 tablet by ity of tablet 15:46: mouth in [place] [address] the Medical morning. Branch aspirin 81 2022-0 Yes 81mg Take 1 Unive rs mg chewable 4-17 tablet by ity of tablet 15:46: mouth in [place] [address] the Medical morning. Branch lisinopril 0 Yes Take by Univ ers 10 mg 4-17 mouth ity of tablet 15:46: daily. [address] albuterol 2022-0 Yes 1.25mg Use 3 mL Un lala 1.25 mg/3 4-17 as ity of mL 15:46: directed [place] nebulizer 05 every 6 Medical solution (six) Branch hours as needed for Wheezing. ALPRAZolam 2022-0 Yes 1mg Take 1 Unive rs 1 mg tablet 4-17 tablet by ity of 15:46: mouth in [place] [address] the Medical morning Branch and 1 tablet at noon and 1 tablet in the evening. loratadine 2023-0 Yes 10mg Take 1 Unive rs 10 mg 4-17 tablet by ity of tablet 15:46: mouth in [place] [address] the Medical morning. Branch aspirin 81 2022-0 Yes 81mg Take 1 Unive rs mg chewable 4-17 tablet by ity of tablet 15:46: mouth in [place] [address] the Medical morning. Branch lisinopril 2022-0 Yes Take by Univ ers 10 mg 4-17 mouth ity of tablet 15:46: daily. [address] Branch albuterol 3-0 Yes 1.25mg Use 3 mL Un lala 1.25 mg/3 4-17 as ity of mL 15:46: directed [place] nebulizer 05 every 6 Medical solution (six) Branch hours as needed for Wheezing. ALPRAZolam 3-0 Yes 1mg Take 1 Unive rs 1 mg tablet 4-17 tablet by ity of 15:46: mouth in [place] [address] the Medical morning Branch and 1 tablet at noon and 1 tablet in the evening. loratadine 3-0 Yes 10mg Take 1 Unive rs 10 mg 4-17 tablet by ity of tablet 15:46: mouth in [place] [address] the Medical morning. Branch aspirin 81 2022-0 Yes 81mg Take 1 Unive rs mg chewable 4-17 tablet by ity of tablet 15:46: mouth in [place] [address] the Medical morning. Branch lisinopril 2022-0 Yes Take by Univ ers 10 mg 4-17 mouth ity of tablet 15:46: daily. [address] Branch albuterol 3-0 Yes 1.25mg Use 3 mL Un lala 1.25 mg/3 4-17 as ity of mL 15:46: directed [place] nebulizer 05 every 6 Medical solution (six) Branch hours as needed for Wheezing. spironolact 2023-0 Yes 1{tbl} Take 1 Un lala one-hydroch 4-11 tablet by ity of lorothiazid 00:00: mouth in [place] e 25-25 mg 00 the Medical per tablet morning. Bran h spironolact 3-0 Yes 1{tbl} Take 1 Un lala one-hydroch 4-11 tablet by ity of lorothiazid 00:00: [place] 25-25 mg 00 the Medical per tablet morning. Bran h spironolact 3-0 Yes 1{tbl} Take 1 Un lala one-hydroch 4-11 tablet by ity of lorothiazid 00:00: mouth in [facility] e 25-25 mg 00 the Medical per tablet morning. Bran h ALPRAZolam 3-0 Yes 1mg Take 1 Unive rs 1 mg tablet 4-04 tablet by ity of 15:05: mouth in [place] [address] the Medical morning Branch and 1 tablet at noon and 1 tablet in the evening. omeprazole 2023-0 Yes 40mg Take 1 Unive rs 40 mg 4-04 capsule by ity of capsule 15:05: mouth in [place] [address] the Medical morning. Branch loratadine 3-0 Yes 10mg Take 1 Unive rs 10 mg 4-04 tablet by ity of tablet 15:05: mouth in [place] [address] the Medical morning. Branch aspirin 81 3-0 Yes 81mg Take 1 Unive rs mg chewable 4-04 tablet by ity of tablet 15:05: mouth in [place] [address] the Medical morning. Branch lisinopril 2022-0 Yes Take by Univ ers 10 mg 4-04 mouth ity of tablet 15:05: daily. [place] [address] Medical Branch albuterol 3-0 Yes 1.25mg Use 3 mL Un lala 1.25 mg/3 4-04 as ity of mL 15:05: directed [place] nebulizer every 6 Medical solution (six) Branch hours as needed for Wheezing. ALPRAZolam 3-0 Yes 1mg Take 1 Unive rs 1 mg tablet 4-04 tablet by ity of 15:05: mouth in [place] [address] the Medical morning Branch and 1 tablet at noon and 1 tablet in the evening. omeprazole 3-0 Yes 40mg Take 1 Unive rs 40 mg 4-04 capsule by ity of capsule 15:05: mouth in [place] [address] the Medical morning. Branch loratadine 3-0 Yes 10mg Take 1 Unive rs 10 mg 4-04 tablet by ity of tablet 15:05: mouth in [place] [address] the Medical morning. Branch aspirin 81 2023-0 Yes 81mg Take 1 Unive rs mg chewable 4-04 tablet by ity of tablet 15:05: mouth in [place] [address] the Medical morning. Branch lisinopril 2023-0 Yes Take by Univ ers 10 mg 4-04 mouth ity of tablet 15:05: daily. [place] [address] Medical Branch albuterol 3-0 Yes 1.25mg Use 3 mL Un lala 1.25 mg/3 4-04 as ity of mL 15:05: directed [place] nebulizer 28 every 6 Medical solution (six) Branch hours as needed for Wheezing. ALPRAZolam 2023-0 Yes 1mg Take 1 Unive rs 1 mg tablet 4-04 tablet by ity of 15:05: mouth in [place] [address] the Medical morning Branch and 1 tablet at noon and 1 tablet in the evening. omeprazole 2023-0 Yes 40mg Take 1 Unive rs 40 mg 4-04 capsule by ity of capsule 15:05: mouth in [place] [address] the Medical morning. Branch loratadine 3-0 Yes 10mg Take 1 Unive rs 10 mg 4-04 tablet by ity of tablet 15:05: mouth in [place] [address] the Medical morning. Branch aspirin 81 3-0 Yes 81mg Take 1 Unive rs mg chewable 4-04 tablet by ity of tablet 15:05: mouth in [place] [address] the Medical morning. Branch lisinopril 3-0 Yes Take by Univ ers 10 mg 4-04 mouth ity of tablet 15:05: daily. [address] Branch albuterol 3-0 Yes 1.25mg Use 3 mL Un lala 1.25 mg/3 4-04 as ity of mL 15:05: directed [place] nebulizer every 6 Medical solution (six) Branch hours as needed for Wheezing. ALPRAZolam 2023-0 Yes 1mg Take 1 Unive rs 1 mg tablet 4-04 tablet by ity of 15:05: mouth in [place] [address] the Medical morning Branch and 1 tablet at noon and 1 tablet in the evening. omeprazole 2023-0 Yes 40mg Take 1 Unive rs 40 mg 4-04 capsule by ity of capsule 15:05: mouth in [place] [address] the Medical morning. Branch loratadine 2023-0 Yes 10mg Take 1 Unive rs 10 mg 4-04 tablet by ity of tablet 15:05: mouth in [place] [address] the Medical morning. Branch aspirin 81 2023-0 Yes 81mg Take 1 Unive rs mg chewable 4-04 tablet by ity of tablet 15:05: mouth in [place] [address] the Medical morning. Branch lisinopril 2022-0 Yes Take by Univ ers 10 mg 4-04 mouth ity of tablet 15:05: daily. [address] Branch albuterol 2022-0 Yes 1.25mg Use 3 mL Un lala 1.25 mg/3 4-04 as ity of mL 15:05: directed [place] nebulizer every 6 Medical solution (six) Branch hours as needed for Wheezing. ALPRAZolam 2022-0 Yes 1mg Take 1 Unive rs 1 mg tablet 4-04 tablet by ity of 15:05: mouth in [place] [address] the Medical morning Branch and 1 tablet at noon and 1 tablet in the evening. omeprazole 2022-0 Yes 40mg Take 1 Unive rs 40 mg 4-04 capsule by ity of capsule 15:05: mouth in [place] [address] the Medical morning. Branch loratadine 2022-0 Yes 10mg Take 1 Unive rs 10 mg 4-04 tablet by ity of tablet 15:05: mouth in [place] [address] the Medical morning. Branch aspirin 81 2022-0 Yes 81mg Take 1 Unive rs mg chewable 4-04 tablet by ity of tablet 15:05: mouth in [place] [address] the Medical morning. Branch lisinopril 2022-0 Yes Take by Univ ers 10 mg 4-04 mouth ity of tablet 15:05: daily. [address] Branch albuterol 2022-0 Yes 1.25mg Use 3 mL Un lala 1.25 mg/3 4-04 as ity of mL 15:05: directed [place] nebulizer every 6 Medical solution (six) Branch hours as needed for Wheezing. acetaminoph 2022-0 Yes 2745 1{tbl} Take 1 Un lala en-codeine 4-03 tablet by ity of (TYLENOL-CO 00:00: mouth [place] DEINE #3) 00 every 4 Medical 300-30 mg (four) Branch tablet hours as needed for Pain (scale 4-6) or Pain (scale 7-10). Indication s: chronic pain acetaminoph 2023-0 Yes 2745 1{tbl} Take 1 Un lala en-codeine 4-03 tablet by ity of (TYLENOL-CO 00:00: mouth [place] DEINE #3) 00 every 4 Medical 300-30 mg (four) Branch tablet hours as needed for Pain (scale 4-6) or Pain (scale 7-10). Indication s: chronic pain acetaminoph 2023-0 Yes 2745 1{tbl} Take 1 Un lala en-codeine 4-03 tablet by ity of (TYLENOL-CO 00:00: mouth [place] DEINE #3) 00 every 4 Medical 300-30 mg (four) Branch tablet hours as needed for Pain (scale 4-6) or Pain (scale 7-10). Indication s: chronic pain acetaminoph 2023-0 Yes 2745 1{tbl} Take 1 Un lala en-codeine 4-03 tablet by ity of (TYLENOL-CO 00:00: mouth [place] DEINE #3) 00 every 4 Medical 300-30 mg (four) Branch tablet hours as needed for Pain (scale 4-6) or Pain (scale 7-10). Indication s: chronic pain acetaminoph 2023-0 Yes 2745 1{tbl} Take 1 Un lala en-codeine 4-03 tablet by ity of (TYLENOL-CO 00:00: mouth [place] DEINE #3) 00 every 4 Medical 300-30 mg (four) Branch tablet hours as needed for Pain (scale 4-6) or Pain (scale 7-10). Indication s: chronic pain acetaminoph 2023-0 Yes 2745 1{tbl} Take 1 Un lala en-codeine 4-03 tablet by ity of (TYLENOL-CO 00:00: mouth [place] DEINE #3) 00 every 4 Medical 300-30 mg (four) Branch tablet hours as needed for Pain (scale 4-6) or Pain (scale 7-10). Indication s: chronic pain acetaminoph 2023-0 Yes 2745 1{tbl} Take 1 Un lala en-codeine 4-03 tablet by ity of (TYLENOL-CO 00:00: mouth [place] DEINE #3) 00 every 4 Medical 300-30 mg (four) Branch tablet hours as needed for Pain (scale 4-6) or Pain (scale 7-10). Indication s: chronic pain acetaminoph 2023-0 Yes 2745 1{tbl} Take 1 Un lala en-codeine 4-03 tablet by ity of (TYLENOL-CO 00:00: mouth [place] DEINE #3) 00 every 4 Medical 300-30 mg (four) Branch tablet hours as needed for Pain (scale 4-6) or Pain (scale 7-10). Indication s: chronic pain acetaminoph 2023-0 Yes 2745 1{tbl} Take 1 Un lala en-codeine 4-03 tablet by ity of (TYLENOL-CO 00:00: mouth [place] DEINE #3) 00 every 4 Medical 300-30 mg (four) Branch tablet hours as needed for Pain (scale 4-6) or Pain (scale 7-10). Indication s: chronic pain acetaminoph 2023-0 Yes 2745 1{tbl} Take 1 Un lala en-codeine 4-03 tablet by ity of (TYLENOL-CO 00:00: mouth [place] DEINE #3) 00 every 4 Medical 300-30 mg (four) Branch tablet hours as needed for Pain (scale 4-6) or Pain (scale 7-10). Indication s: chronic pain celecoxib 2023-0 Yes 100mg Take 1 Unive rs 100 mg 3-21 capsule by ity of capsule 00:00: mouth in [place] [address] the Medical morning Oracle and 1 capsule in the evening. celecoxib 2023-0 Yes 100mg Take 1 Unive rs 100 mg 3-21 capsule by ity of capsule 00:00: mouth in [place] [address] the [facility] morning Oracle and 1 capsule in the evening. celecoxib 2023-0 Yes 100mg Take 1 Unive rs 100 mg 3-21 capsule by ity of capsule 00:00: mouth in [place] [address] the [facility] morning Oracle and 1 capsule in the evening. celecoxib 2023-0 Yes 100mg Take 1 Unive rs 100 mg 3-21 capsule by ity of capsule 00:00: mouth in [address] Medical morning Branch and 1 capsule in the evening. celecoxib 2023-0 Yes 100mg Take 1 Unive rs 100 mg 3-21 capsule by ity of capsule 00:00: mouth in [place] [address] the [facility] morning Oracle and 1 capsule in the evening. celecoxib 2023-0 Yes 100mg Take 1 Unive rs 100 mg 3-21 capsule by ity of capsule 00:00: mouth in [address] morning Oracle and 1 capsule in the evening. celecoxib 2023-0 Yes 100mg Take 1 Unive rs 100 mg 3-21 capsule by ity of capsule 00:00: mouth in [place] 00 the Medical morning Branch and 1 capsule in the evening. celecoxib Yes 100mg Take 1 Unive rs 100 mg 3-21 capsule by ity of capsule 00:00: mouth in [place] 00 the Medical morning Branch and 1 capsule in the evening. oxyCODONE-a 2022- Yes 2{tbl} Uni vers cetaminophe 3-20 -20 ity of n 05:00: 16:59 [place] (PERCOCET) 00 :00 Medical 5-325 mg Branch per tablet 2 tablet tranexamic 2022- Yes 1000mg Univ ers acid 3-20 -20 ity of (CYKLOKAPRO 05:00: 16:59 [place] N) 1,000 mg 00 :00 Medical in NaCl Branch 0.9% (NS) 250 mL piggyback oxyCODONE-a 2022- Yes 2{tbl} Uni vers cetaminophe 3-20 -20 ity of n 05:00: 16:59 [place] (PERCOCET) 00 :00 Medical 5-325 mg Branch per tablet 2 tablet tranexamic 2022- Yes 1000mg Univ ers acid 3-20 -20 ity of (CYKLOKAPRO 05:00: 16:59 [place] N) 1,000 mg 00 :00 Medical in NaCl Branch 0.9% (NS) 250 mL piggyback oxyCODONE-a 2022- Yes 2{tbl} Uni vers cetaminophe 3-20 -20 ity of n 05:00: 16:59 [place] (PERCOCET) 00 :00 Medical 5-325 mg Branch per tablet 2 tablet tranexamic 2022- Yes 1000mg Univ ers acid 3-20 -20 ity of (CYKLOKAPRO 05:00: 16:59 [place] N) 1,000 mg 00 :00 Medical in NaCl Branch 0.9% (NS) 250 mL piggyback oxyCODONE-a 2022- Yes 2{tbl} Uni vers cetaminophe 3-20 -20 ity of n 05:00: 16:59 [place] (PERCOCET) 00 :00 Medical 5-325 mg Branch per tablet 2 tablet tranexamic 2022- Yes 1000mg Univ ers acid 3-20 03-20 ity of (CYKLOKAPRO 05:00: 16:59 [place] N) 1,000 mg 00 :00 Medical in NaCl Branch 0.9% (NS) 250 mL piggyback oxyCODONE-a 2022- Yes 2{tbl} Uni vers cetaminophe 3-20 -20 ity of n 05:00: 16:59 [place] (PERCOCET) 00 :00 Medical 5-325 mg Branch per tablet 2 tablet tranexamic 2022- Yes 1000mg Univ ers acid 3-20 -20 ity of (CYKLOKAPRO 05:00: 16:59 [place] N) 1,000 mg 00 :00 Medical in NaCl Branch 0.9% (NS) 250 mL piggyback oxyCODONE-a 2022- Yes 2{tbl} Uni vers cetaminophe 3-20 -20 ity of n 05:00: 16:59 [place] (PERCOCET) 00 :00 Medical 5-325 mg Branch per tablet 2 tablet tranexamic 2022- Yes 1000mg Univ ers acid 3-20 -20 ity of (CYKLOKAPRO 05:00: 16:59 [place] N) 1,000 mg 00 :00 Medical in NaCl Branch 0.9% (NS) 250 mL piggyback predniSONE Yes 10mg Take 1 Unive rs 10 mg 3-13 tablet by ity of tablet 00:00: mouth in [place] 00 the Medical morning. Branch predniSONE 2022-0 Yes 10mg Take 1 Unive rs 10 mg 3-13 tablet by ity of tablet 00:00: mouth in [place] 00 the Medical morning. Branch predniSONE 2022-0 Yes 10mg Take 1 Unive rs 10 mg 3-13 tablet by ity of tablet 00:00: mouth in [place] 00 the Medical morning. Branch predniSONE 2022-0 Yes 10mg Take 1 Unive rs 10 mg 3-13 tablet by ity of tablet 00:00: mouth in [place] 00 the Medical morning. Branch predniSONE 2022-0 Yes 10mg Take 1 Unive rs 10 mg 3-13 tablet by ity of tablet 00:00: mouth in [place] 00 the Medical morning. Branch predniSONE 2022-0 Yes 10mg Take 1 Unive rs 10 mg 3-13 tablet by ity of tablet 00:00: mouth in [place] the Medical morning. Branch predniSONE 2023-0 Yes 10mg Take 1 Unive rs 10 mg 3-13 tablet by ity of tablet 00:00: mouth in [place] the Medical morning. Branch predniSONE 2023-0 Yes 10mg Take 1 Unive rs 10 mg 3-13 tablet by ity of tablet 00:00: mouth in [place] the Medical morning. Branch ipratropium 2023-0 Yes 3mL Inhale 3 Un lala -albuteroL 3-12 mL as ity of 0.5 mg-3 00:00: needed. [place] mg(2.5 mg 00 Medical base)/3 mL Branch nebulizer solution ipratropium 2023-0 Yes 3mL Inhale 3 Un lala -albuteroL 3-12 mL as ity of 0.5 mg-3 00:00: needed. [place] mg(2.5 mg 00 Medical base)/3 mL Branch nebulizer solution ipratropium 2023-0 Yes 3mL Inhale 3 Un lala -albuteroL 3-12 mL as ity of 0.5 mg-3 00:00: needed. [place] mg(2.5 mg 00 Medical base)/3 mL Branch nebulizer solution ipratropium 2023-0 Yes 3mL Inhale 3 Un lala -albuteroL 3-12 mL as ity of 0.5 mg-3 00:00: needed. [place] mg(2.5 mg 00 Medical base)/3 mL Branch nebulizer solution ipratropium 2023-0 Yes 3mL Inhale 3 Un lala -albuteroL 3-12 mL as ity of 0.5 mg-3 00:00: needed. [place] mg(2.5 mg 00 Medical base)/3 mL Branch nebulizer solution ipratropium 2023-0 Yes 3mL Inhale 3 Un lala -albuteroL 3-12 mL as ity of 0.5 mg-3 00:00: needed. [place] mg(2.5 mg 00 Medical base)/3 mL Branch nebulizer solution ipratropium 2023-0 Yes 3mL Inhale 3 Un lala -albuteroL 3-12 mL as ity of 0.5 mg-3 00:00: needed. [place] mg(2.5 mg 00 Medical base)/3 mL Branch nebulizer solution ipratropium 2022-0 Yes 3mL Inhale 3 Un lala -albuteroL 3-12 mL as ity of 0.5 mg-3 00:00: needed. [place] mg(2.5 mg 00 Medical base)/3 mL Branch nebulizer solution traMADoL 50 2022-0 Yes 4647 50mg Take 1 Univ ers mg tablet 3-10 tablet by ity o f 00:00: mouth [place] 00 every 4 Medical (four) Branch hours as needed for Pain (scale 7-10). Indication s: acute pain traMADoL 50 2022-0 Yes 4647 50mg Take 1 Univ ers mg tablet 3-10 tablet by ity o f 00:00: mouth [place] 00 every 4 Medical (four) Branch hours as needed for Pain (scale 7-10). Indication s: acute pain traMADoL 50 2022-0 Yes 4647 50mg Take 1 Univ ers mg tablet 3-10 tablet by ity o f 00:00: mouth [place] 00 every 4 Medical (four) Branch hours as needed for Pain (scale 7-10). Indication s: acute pain traMADoL 50 2022-0 Yes 4647 50mg Take 1 Univ ers mg tablet 3-10 tablet by ity o f 00:00: mouth [place] 00 every 4 Medical (four) Branch hours as needed for Pain (scale 7-10). Indication s: acute pain traMADoL 50 2022-0 Yes 4647 50mg Take 1 Univ ers mg tablet 3-10 tablet by ity o f 00:00: mouth [place] 00 every 4 Medical (four) Branch hours as needed for Pain (scale 7-10). Indication s: acute pain traMADoL 50 2022-0 Yes 4647 50mg Take 1 Univ ers mg tablet 3-10 tablet by ity o f 00:00: mouth [place] 00 every 4 Medical (four) Branch hours as needed for Pain (scale 7-10). Indication s: acute pain traMADoL 50 2022-0 Yes 4647 50mg Take 1 Univ ers mg tablet 3-10 tablet by ity o f 00:00: mouth [place] 00 every 4 Medical (four) Branch hours as needed for Pain (scale 7-10). Indication s: acute pain traMADoL 50 2022-0 Yes 4647 50mg Take 1 Univ ers mg tablet 3-10 tablet by ity o f 00:00: mouth [place] 00 every 4 Medical (four) Branch hours as needed for Pain (scale 7-10). Indication s: acute pain traMADoL 50 2022-0 Yes 4647 50mg Take 1 Univ ers mg tablet 3-10 tablet by ity o f 00:00: mouth [place] 00 every 4 Medical (four) Branch hours as needed for Pain (scale 7-10). Indication s: acute pain traMADoL 50 2022-0 Yes 4647 50mg Take 1 Univ ers mg tablet 3-10 tablet by ity o f 00:00: mouth [place] 00 every 4 Medical (four) Branch hours as needed for Pain (scale 7-10). Indication s: acute pain traMADoL 50 2022-0 Yes 4647 50mg Take 1 Univ ers mg tablet 3-10 tablet by ity o f 00:00: mouth [place] 00 every 4 Medical (four) Branch hours as needed for Pain (scale 7-10). Indication s: acute pain traMADoL 50 2022-0 Yes 4647 50mg Take 1 Univ ers mg tablet 3-10 tablet by ity o f 00:00: mouth [place] 00 every 4 Medical (four) Branch hours as needed for Pain (scale 7-10). Indication s: acute pain traMADoL 50 2022-0 Yes 4647 50mg Take 1 Univ ers mg tablet 3-10 tablet by ity o f 00:00: mouth [place] 00 every 4 Medical (four) Branch hours as needed for Pain (scale 7-10). Indication s: acute pain traMADoL 50 2022-0 Yes 4647 50mg Take 1 Univ ers mg tablet 3-10 tablet by ity o f 00:00: mouth [place] 00 every 4 Medical (four) Branch hours as needed for Pain (scale 7-10). Indication s: acute pain levalbutero 2022-0 2022- No 1.25mg 1.25 mg, Univers l (XOPENEX) 05-08 03-07 Inhalation i ty of nebulizer 00:30: 23:44 , ONCE, 1 [place] solution 00 :00 dose, On Medical 1.25 mg 05/07/22 Branch at 1830, Routine diclofenac 2022-0 202- Yes [id number] 75mg Take 1 Univers 75 mg EC 05-0808 9100 tablet by ity o f tablet 00:00: 04:59 mouth in [place] 00 :00 the [facility] morning Branch and 1 tablet in the evening. Take with meals. Do all this for 30 days. diclofenac 3-0 2023- Yes [id number] 75mg Take 1 Univers 75 mg EC 3-10 04- 9100 tablet by ity o f tablet 00:00: 04:59 mouth in [place] 00 :00 the [facility] morning Branch and 1 tablet in the evening. Take with meals. Do all this for 30 days. diclofenac 2022-0 3- Yes [id number] 75mg Take 1 Univers 75 mg EC 3-10 04- 9100 tablet by ity o f tablet 00:00: 04:59 mouth in [place] 00 :00 the Medical morning Branch and 1 tablet in the evening. Take with meals. Do all this for 30 days. diclofenac 2022-0 3- Yes [id number] 75mg Take 1 Univers 75 mg EC 3-10 04- 9100 tablet by ity o f tablet 00:00: 04:59 mouth in [place] 00 :00 the [facility] and 1 tablet in the evening. Take with meals. Do all this for 30 days. diclofenac 2022-0 3- Yes [id number] 75mg Take 1 Univers 75 mg EC 3-10 04- 9100 tablet by ity o f tablet 00:00: 04:59 mouth in [place] 00 :00 the [facility] and 1 tablet in the evening. Take with meals. Do all this for 30 days. diclofenac 2022-0 3- Yes [id number] 75mg Take 1 [facility] 75 mg EC 05-08- 9100 tablet by ity o f tablet 00:00: 04:59 mouth in [place] 00 :00 the [facility] and 1 tablet in the evening. Take with meals. Do all this for 30 days. diclofenac 2022-0 3- Yes [id number] 75mg Take 1 [facility] 75 mg EC 3-10 04- 9100 tablet by ity o f tablet 00:00: 04:59 mouth in [place] 00 :00 the [facility] Branch and 1 tablet in the evening. Take with meals. Do all this for 30 days. diclofenac 3-0 2023- Yes [id number] 75mg Take 1 [facility] 75 mg EC 3-10 04- 9100 tablet by ity o f tablet 00:00: 04:59 mouth in [place] 00 :00 the Medical morning Branch and 1 tablet in the evening. Take with meals. Do all this for 30 days. diclofenac 2022- Yes [id number] 75mg Take 1 [facility] 75 mg EC 05-08 9100 tablet by ity o f tablet 00:00: 04:59 mouth in [place] 00 :00 the Medical morning Branch and 1 tablet in the evening. Take with meals. Do all this for 30 days. diclofenac 2022-0 2022- Yes [id number] 75mg Take 1 [facility] 75 mg EC 05-08 9100 tablet by ity o f tablet 00:00: 04:59 mouth in [place] 00 :00 the Medical morning Branch and 1 tablet in the evening. Take with meals. Do all this for 30 days. diclofenac 2022-2022- Yes [id number] 75mg Take 1 [facility] 75 mg EC 05-08 9100 tablet by ity o f tablet 00:00: 04:59 mouth in [place] 00 :00 the Medical morning Branch and 1 tablet in the evening. Take with meals. Do all this for 30 days. diclofenac 2022- Yes [id number] 75mg Take 1 [facility] 75 mg EC 05-08 9100 tablet by ity o f tablet 00:00: 04:59 mouth in [place] 00 :00 the Medical morning Branch and 1 tablet in the evening. Take with meals. Do all this for 30 days. ipratropium 2022- No .5mg 0.5 mg, [facility] (ATROVENT) 05-07- Inhalation it y of 0.02 % 23:45: 23:43 , ONCE, 1 [place] nebulizer 00 :00 dose, On Medica l solution 05/07/22 Branc h 0.5 mg at 1745, LESLY fluticasone Yes 2{spray Use 2 [facility] propionate 3-03 } Sprays in ity of 50 00:00: each [place] mcg/actuati 00 nostril in Me dical on nasal the Branch spray morning and 2 Sprays in the evening. fluticasone 2022-0 Yes 2{spray Use 2 [facility] propionate 3-03 } Sprays in ity of 50 00:00: each [place] mcg/actuati 00 nostril in Me dical on nasal the Branch spray morning and 2 Sprays in the evening. fluticasone Yes 2{spray Use 2 [facility] propionate 3-03 } Sprays in ity of 50 00:00: each [place] mcg/actuati 00 nostril in Me dical on nasal the Branch spray morning and 2 Sprays in the evening. fluticasone Yes 2{spray Use 2 [facility] propionate 3-03 } Sprays in ity of 50 00:00: each [place] mcg/actuati 00 nostril in Me dical on nasal the Branch spray morning and 2 Sprays in the evening. fluticasone Yes 2{spray Use 2 [facility] propionate 3-03 } Sprays in ity of 50 00:00: each [place] mcg/actuati 00 nostril in Me dical on nasal the Branch spray morning and 2 Sprays in the evening. fluticasone Yes 2{spray Use 2 [facility] propionate 3-03 } Sprays in ity of 50 00:00: each [place] mcg/actuati 00 nostril in Me dical on nasal the Branch spray morning and 2 Sprays in the evening. fluticasone Yes 2{spray Use 2 [facility] propionate 3-03 } Sprays in ity of 50 00:00: each [place] mcg/actuati 00 nostril in Me dical on nasal the Branch spray morning and 2 Sprays in the evening. fluticasone Yes 2{spray Use 2 [facility] propionate 3-03 } Sprays in ity of 50 00:00: each [place] mcg/actuati 00 nostril in Me dical on nasal the Branch spray morning and 2 Sprays in the evening. atorvastati 0 2022- No 20mg Take 20 mg [facility] n 20 mg 2-23 04-21 by mouth ity of tablet 09:39: 00:00 daily. [place] 42 :00 [facility] atorvastati 2022-0 2022- No 20mg Take 20 mg [facility] n 20 mg 2-21 -21 by mouth ity of tablet 09:39: 00:00 daily. [place] 42 :00 [facility] ALPRAZolam 0 Yes 1mg Take 1 mg [facility] 1 mg tablet 2-21 by mouth 3 it y of 08:34: (three) [place] [address] times Medical daily. Branch omeprazole 3-0 Yes 40mg Take 40 mg U nivers 40 mg 2-21 by mouth ity of capsule 08:34: daily. [address] Branch loratadine 2022-0 Yes 10mg Take 10 mg U nivers 10 mg 2-21 by mouth ity of tablet 08:34: daily. [address] aspirin 81 2022-0 Yes 81mg Take 81 mg U nivers mg chewable 2-21 by mouth ity of tablet 08:34: daily. [address] Branch lisinopril 2022-0 Yes Take by [facility] ers 10 mg 2-21 mouth ity of tablet 08:34: daily. [address] Branch albuterol 2022-0 Yes 1{ampul Use 1 Univ ers 1.25 mg/3 2-21 e} Ampule as ity o f mL 08:34: directed [place] nebulizer 43 every 6 Medical solution (six) Branch hours as needed for Wheezing. ALPRAZolam 2022-0 Yes 1mg Take 1 mg [facility] 1 mg tablet 2-21 by mouth 3 it y of 08:34: (three) [address] Medical daily. Branch omeprazole 2022-0 Yes 40mg Take 40 mg U nivers 40 mg 2-21 by mouth ity of capsule 08:34: daily. [address] loratadine 2022-0 Yes 10mg Take 10 mg U nivers 10 mg 2-21 by mouth ity of tablet 08:34: daily. [address] aspirin 81 2022-0 Yes 81mg Take 81 mg U nivers mg chewable 2-21 by mouth ity of tablet 08:34: daily. [address] Branch lisinopril 2022-0 Yes Take by [facility] ers 10 mg 2-21 mouth ity of tablet 08:34: daily. [address] Branch albuterol 2022-0 Yes 1{ampul Use 1 Univ ers 1.25 mg/3 2-21 e} Ampule as ity o f mL 08:34: directed [place] nebulizer 43 every 6 Medical solution (six) Branch hours as needed for Wheezing. ALPRAZolam 2022-0 Yes 1mg Take 1 mg [facility] 1 mg tablet 2-21 by mouth 3 it y of 08:34: (three) [place] 43 times Medical daily. Branch omeprazole 3-0 Yes 40mg Take 40 mg U nivers 40 mg 2-21 by mouth ity of capsule 08:34: daily. [address] Branch loratadine 3-0 Yes 10mg Take 10 mg U nivers 10 mg 2-21 by mouth ity of tablet 08:34: daily. [address] Branch aspirin 81 3-0 Yes 81mg Take 81 mg U nivers mg chewable 2-21 by mouth ity of tablet 08:34: daily. [address] Branch lisinopril 3-0 Yes Take by [facility] ers 10 mg 2-21 mouth ity of tablet 08:34: daily. [address] Branch albuterol 3-0 Yes 1{ampul Use 1 [facility] ers 1.25 mg/3 2-21 e} Ampule as ity o f mL 08:34: directed [place] nebulizer 43 every 6 Medical solution (six) Branch hours as needed for Wheezing. ALPRAZolam 3-0 Yes 1mg Take 1 mg [facility] 1 mg tablet 2-21 by mouth 3 it y of 08:34: (three) [address] Medical daily. Branch omeprazole 3-0 Yes 40mg Take 40 mg U nivers 40 mg 2-21 by mouth ity of capsule 08:34: daily. [address] Branch loratadine 3-0 Yes 10mg Take 10 mg U nivers 10 mg 2-21 by mouth ity of tablet 08:34: daily. [address] aspirin 81 3-0 Yes 81mg Take 81 mg U nivers mg chewable 2-21 by mouth ity of tablet 08:34: daily. [address] Branch lisinopril 3-0 Yes Take by Univ ers 10 mg 2-21 mouth ity of tablet 08:34: daily. [address] Branch albuterol 3-0 Yes 1{ampul Use 1 Univ ers 1.25 mg/3 2-21 e} Ampule as ity o f mL 08:34: directed [place] nebulizer 43 every 6 Medical solution (six) Branch hours as needed for Wheezing. ALPRAZolam 3-0 Yes 1mg Take 1 mg [facility] 1 mg tablet 2-21 by mouth 3 it y of 08:34: (three) [place] [address] times Medical daily. Branch omeprazole 2023-0 Yes 40mg Take 40 mg U nivers 40 mg 2-21 by mouth ity of capsule 08:34: daily. [address] loratadine 2022-0 Yes 10mg Take 10 mg U nivers 10 mg 2-21 by mouth ity of tablet 08:34: daily. [address] aspirin 81 2022-0 Yes 81mg Take 81 mg U nivers mg chewable 2-21 by mouth ity of tablet 08:34: daily. [address] Branch lisinopril 2022-0 Yes Take by Univ ers 10 mg 2-21 mouth ity of tablet 08:34: daily. [address] albuterol 2022-0 Yes 1{ampul Use 1 Univ ers 1.25 mg/3 2-21 e} Ampule as ity o f mL 08:34: directed [place] nebulizer every 6 Medical solution (six) Branch hours as needed for Wheezing. ALPRAZolam 2022-0 Yes 1mg Take 1 mg [facility] 1 mg tablet 2-21 by mouth 3 it y of 08:34: (three) [place] [address] times Medical daily. Branch omeprazole 2022-0 Yes 40mg Take 40 mg U nivers 40 mg 2-21 by mouth ity of capsule 08:34: daily. [address] loratadine 2022-0 Yes 10mg Take 10 mg U nivers 10 mg 2-21 by mouth ity of tablet 08:34: daily. [address] aspirin 81 2022-0 Yes 81mg Take 81 mg U nivers mg chewable 2-21 by mouth ity of tablet 08:34: daily. [address] lisinopril 2022-0 Yes Take by Univ ers 10 mg 2-21 mouth ity of tablet 08:34: daily. [address] albuterol 2022-0 Yes 1{ampul Use 1 Univ ers 1.25 mg/3 2-21 e} Ampule as ity o f mL 08:34: directed [place] nebulizer every 6 Medical solution (six) Branch hours as needed for Wheezing. ALPRAZolam 3-0 Yes 1mg Take 1 mg [facility] 1 mg tablet 2-21 by mouth 3 it y of 08:34: (three) [place] [address] times Medical daily. Branch omeprazole 3-0 Yes 40mg Take 40 mg U nivers 40 mg 2-21 by mouth ity of capsule 08:34: daily. [address] Branch loratadine 2022-0 Yes 10mg Take 10 mg U nivers 10 mg 2-21 by mouth ity of tablet 08:34: daily. [address] Branch aspirin 81 2022-0 Yes 81mg Take 81 mg U nivers mg chewable 2-21 by mouth ity of tablet 08:34: daily. [address] Branch lisinopril 2022-0 Yes Take by Univ ers 10 mg 2-21 mouth ity of tablet 08:34: daily. [address] Branch albuterol 2022-0 Yes 1{ampul Use 1 Univ ers 1.25 mg/3 2-21 e} Ampule as ity o f mL 08:34: directed [place] nebulizer every 6 Medical solution (six) Branch hours as needed for Wheezing. ALPRAZolam 2022-0 Yes 1mg Take 1 mg [facility] 1 mg tablet 2-21 by mouth 3 it y of 08:34: (three) [address] Medical daily. Branch omeprazole 2022-0 Yes 40mg Take 40 mg U nivers 40 mg 2-21 by mouth ity of capsule 08:34: daily. [address] loratadine 2022-0 Yes 10mg Take 10 mg U nivers 10 mg 2-21 by mouth ity of tablet 08:34: daily. [address] aspirin 81 2022-0 Yes 81mg Take 81 mg U nivers mg chewable 2-21 by mouth ity of tablet 08:34: daily. [address] lisinopril 2022-0 Yes Take by Univ ers 10 mg 2-21 mouth ity of tablet 08:34: daily. [address] albuterol 2022-0 Yes 1{ampul Use 1 Univ ers 1.25 mg/3 2-21 e} Ampule as ity o f mL 08:34: directed [place] nebulizer every 6 Medical solution (six) Branch hours as needed for Wheezing. ALPRAZolam 3-0 Yes 1mg Take 1 mg [facility] 1 mg tablet 2-21 by mouth 3 it y of 08:34: (three) [place] [address] times Medical daily. Branch omeprazole 3-0 Yes 40mg Take 40 mg U nivers 40 mg 2-21 by mouth ity of capsule 08:34: daily. [address] Branch loratadine 2022-0 Yes 10mg Take 10 mg U nivers 10 mg 2-21 by mouth ity of tablet 08:34: daily. [address] Branch aspirin 81 2022-0 Yes 81mg Take 81 mg U nivers mg chewable 2-21 by mouth ity of tablet 08:34: daily. [address] Branch lisinopril 2022-0 Yes Take by Univ ers 10 mg 2-21 mouth ity of tablet 08:34: daily. [address] Branch albuterol 2022-0 Yes 1{ampul Use 1 Univ ers 1.25 mg/3 2-21 e} Ampule as ity o f mL 08:34: directed [place] nebulizer every 6 Medical solution (six) Branch hours as needed for Wheezing. ALPRAZolam 2022-0 Yes 1mg Take 1 mg [facility] 1 mg tablet 2-21 by mouth 3 it y of 08:34: (three) [place] [address] times Medical daily. Branch omeprazole 2022-0 Yes 40mg Take 40 mg U nivers 40 mg 2-21 by mouth ity of capsule 08:34: daily. [address] loratadine 2022-0 Yes 10mg Take 10 mg U nivers 10 mg 2-21 by mouth ity of tablet 08:34: daily. [address] aspirin 81 2022-0 Yes 81mg Take 81 mg U nivers mg chewable 2-21 by mouth ity of tablet 08:34: daily. [address] lisinopril 2022-0 Yes Take by Univ ers 10 mg 2-21 mouth ity of tablet 08:34: daily. [address] albuterol 2022-0 Yes 1{ampul Use 1 Univ ers 1.25 mg/3 2-21 e} Ampule as ity o f mL 08:34: directed [place] nebulizer every 6 Medical solution (six) Branch hours as needed for Wheezing. ALPRAZolam 2022-0 Yes 1mg Take 1 mg [facility] 1 mg tablet 2-21 by mouth 3 it y of 08:34: (three) [place] [address] times Medical daily. Branch omeprazole 3-0 Yes 40mg Take 40 mg U nivers 40 mg 2-21 by mouth ity of capsule 08:34: daily. [address] loratadine 2022-0 Yes 10mg Take 10 mg U nivers 10 mg 2-21 by mouth ity of tablet 08:34: daily. [address] Branch aspirin 81 2022-0 Yes 81mg Take 81 mg U nivers mg chewable 2-21 by mouth ity of tablet 08:34: daily. [address] Branch lisinopril 2022-0 Yes Take by Univ ers 10 mg 2-21 mouth ity of tablet 08:34: daily. [address] Branch albuterol 2022-0 Yes 1{ampul Use 1 Univ ers 1.25 mg/3 2-21 e} Ampule as ity o f mL 08:34: directed [place] nebulizer every 6 Medical solution (six) Branch hours as needed for Wheezing. ALPRAZolam 2022-0 Yes 1mg Take 1 mg [facility] 1 mg tablet 2-21 by mouth 3 it y of 08:34: (three) [place] [address] times Medical daily. Branch omeprazole 2022-0 Yes 40mg Take 40 mg U nivers 40 mg 2-21 by mouth ity of capsule 08:34: daily. [address] Branch loratadine 2022-0 Yes 10mg Take 10 mg U nivers 10 mg 2-21 by mouth ity of tablet 08:34: daily. [address] aspirin 81 2022-0 Yes 81mg Take 81 mg U nivers mg chewable 2-21 by mouth ity of tablet 08:34: daily. [address] lisinopril 2022-0 Yes Take by Univ ers 10 mg 2-21 mouth ity of tablet 08:34: daily. [address] Branch albuterol 2022-0 Yes 1{ampul Use 1 Univ ers 1.25 mg/3 2-21 e} Ampule as ity o f mL 08:34: directed [place] nebulizer 43 every 6 Medical solution (six) Branch hours as needed for Wheezing. ALPRAZolam 2022-0 Yes 1mg Take 1 mg [facility] 1 mg tablet 2-21 by mouth 3 it y of 08:34: (three) [place] [address] times Medical daily. Branch omeprazole 2022-0 Yes 40mg Take 40 mg U nivers 40 mg 2-21 by mouth ity of capsule 08:34: daily. [address] Branch loratadine 2022-0 Yes 10mg Take 10 mg U nivers 10 mg 2-21 by mouth ity of tablet 08:34: daily. [address] Branch aspirin 81 2022-0 Yes 81mg Take 81 mg U nivers mg chewable 2-21 by mouth ity of tablet 08:34: daily. [address] Branch lisinopril 2022-0 Yes Take by Univ ers 10 mg 2-21 mouth ity of tablet 08:34: daily. [address] Branch albuterol 2022-0 Yes 1{ampul Use 1 Univ ers 1.25 mg/3 2-21 e} Ampule as ity o f mL 08:34: directed [place] nebulizer 43 every 6 Medical solution (six) Branch hours as needed for Wheezing. ALPRAZolam 2022-0 Yes 1mg Take 1 mg [facility] 1 mg tablet 2-21 by mouth 3 it y of 08:34: (three) [place] [address] times Medical daily. Branch omeprazole 2022-0 Yes 40mg Take 40 mg U nivers 40 mg 2-21 by mouth ity of capsule 08:34: daily. [address] Branch loratadine 2022-0 Yes 10mg Take 10 mg U nivers 10 mg 2-21 by mouth ity of tablet 08:34: daily. [address] Branch aspirin 81 2022-0 Yes 81mg Take 81 mg U nivers mg chewable 2-21 by mouth ity of tablet 08:34: daily. [address] Branch lisinopril 2022-0 Yes Take by Univ ers 10 mg 2-21 mouth ity of tablet 08:34: daily. [address] Branch albuterol 2022-0 Yes 1{ampul Use 1 Univ ers 1.25 mg/3 2-21 e} Ampule as ity o f mL 08:34: directed [place] nebulizer 43 every 6 Medical solution (six) Branch hours as needed for Wheezing. ALPRAZolam 2022-0 Yes 1mg Take 1 mg [facility] 1 mg tablet 2-21 by mouth 3 it y of 08:34: (three) [place] [address] times Medical daily. Branch omeprazole 2022-0 Yes 40mg Take 40 mg U nivers 40 mg 2-21 by mouth ity of capsule 08:34: daily. [address] Branch loratadine 2022-0 Yes 10mg Take 10 mg U nivers 10 mg 2-21 by mouth ity of tablet 08:34: daily. [address] Branch aspirin 81 2022-0 Yes 81mg Take 81 mg U nivers mg chewable 2-21 by mouth ity of tablet 08:34: daily. [address] Branch lisinopril 2022-0 Yes Take by Univ ers 10 mg 2-21 mouth ity of tablet 08:34: daily. [address] Branch albuterol 2022-0 Yes 1{ampul Use 1 Univ ers 1.25 mg/3 2-21 e} Ampule as ity o f mL 08:34: directed [place] nebulizer every 6 Medical solution (six) Branch hours as needed for Wheezing. ALPRAZolam 2022-0 Yes 1mg Take 1 mg [facility] 1 mg tablet 2-21 by mouth 3 it y of 08:34: (three) [place] [address] times Medical daily. Branch omeprazole 2022-0 Yes 40mg Take 40 mg U nivers 40 mg 2-21 by mouth ity of capsule 08:34: daily. [address] loratadine 2022-0 Yes 10mg Take 10 mg U nivers 10 mg 2-21 by mouth ity of tablet 08:34: daily. [address] aspirin 81 2022-0 Yes 81mg Take 81 mg U nivers mg chewable 2-21 by mouth ity of tablet 08:34: daily. [address] Branch lisinopril 2022-0 Yes Take by Univ ers 10 mg 2-21 mouth ity of tablet 08:34: daily. [address] albuterol 2022-0 Yes 1{ampul Use 1 Univ ers 1.25 mg/3 2-21 e} Ampule as ity o f mL 08:34: directed [place] nebulizer every 6 Medical solution (six) Branch hours as needed for Wheezing. ALPRAZolam 2022-0 Yes 1mg Take 1 mg [facility] 1 mg tablet 2-21 by mouth 3 it y of 08:34: (three) [place] [address] times Medical daily. Branch omeprazole 2022-0 Yes 40mg Take 40 mg U nivers 40 mg 2-21 by mouth ity of capsule 08:34: daily. [address] loratadine 2022-0 Yes 10mg Take 10 mg U nivers 10 mg 2-21 by mouth ity of tablet 08:34: daily. [place] 43 Medical Branch aspirin 81 2023-0 Yes 81mg Take 81 mg U nivers mg chewable 2-21 by mouth ity of tablet 08:34: daily. [place] [address] Medical Branch lisinopril Yes Take by [facility] ers 10 mg 2-21 mouth ity of tablet 08:34: daily. [place] [address] Medical Branch albuterol Yes 1{ampul Use 1 Univ ers 1.25 mg/3 2-21 e} Ampule as ity o f mL 08:34: directed [place] nebulizer 43 every 6 Medical solution (six) Branch hours as needed for Wheezing. SYMBICORT Yes 1{puff} Inhale 1 U nivers 160-4.5 2-19 Puff in ity of mcg/actuati 00:00: the [place] on inhaler 00 morning. Medic al Branch SYMBICORT Yes 1{puff} Inhale 1 U nivers 160-4.5 2-19 Puff in ity of mcg/actuati 00:00: the [place] on inhaler 00 morning. Medic al Branch SYMBICORT Yes 1{puff} Inhale 1 U nivers 160-4.5 2-19 Puff in ity of mcg/actuati 00:00: the [place] on inhaler 00 morning. Medic al Branch SYMBICORT Yes 1{puff} Inhale 1 U nivers 160-4.5 2-19 Puff in ity of mcg/actuati 00:00: the [place] on inhaler 00 morning. Medic al Branch SYMBICORT Yes 1{puff} Inhale 1 U nivers 160-4.5 2-19 Puff in ity of mcg/actuati 00:00: the [place] on inhaler 00 morning. Medic al Branch SYMBICORT Yes 1{puff} Inhale 1 U nivers 160-4.5 2-19 Puff in ity of mcg/actuati 00:00: the [place] on inhaler 00 morning. Medic al Branch SYMBICORT Yes 1{puff} Inhale 1 U nivers 160-4.5 2-19 Puff in ity of mcg/actuati 00:00: the [place] on inhaler 00 morning. Medic al Branch SYMBICORT 2023-0 Yes 1{puff} Inhale 1 U nivers 160-4.5 2-19 Puff in ity of mcg/actuati 00:00: the [place] on inhaler 00 morning. Medic al Branch azithromyci 3-0 Yes 250mg Take 1 Uni vers n 250 mg 2-17 tablet by ity of tablet 00:00: mouth in [place] 00 the Medical morning. X Branch 5 days azithromyci 2023-0 Yes 250mg Take 1 Uni vers n 250 mg 2-17 tablet by ity of tablet 00:00: mouth in [place] 00 the Medical morning. X Branch 5 days azithromyci 2023-0 Yes 250mg Take 1 Uni vers n 250 mg 2-17 tablet by ity of tablet 00:00: mouth in [place] 00 the Medical morning. X Branch 5 days azithromyci 2023-0 Yes 250mg Take 1 Uni vers n 250 mg 2-17 tablet by ity of tablet 00:00: mouth in [place] 00 the Medical morning. X Branch 5 days azithromyci 2023-0 Yes 250mg Take 1 Uni vers n 250 mg 2-17 tablet by ity of tablet 00:00: mouth in [place] 00 the Medical morning. X Branch 5 days azithromyci 2023-0 Yes 250mg Take 1 Uni vers n 250 mg 2-17 tablet by ity of tablet 00:00: mouth in [place] 00 the Medical morning. X Branch 5 days azithromyci 2023-0 Yes 250mg Take 1 Uni vers n 250 mg 2-17 tablet by ity of tablet 00:00: mouth in [place] 00 the Medical morning. X Branch 5 days azithromyci 3-0 Yes 250mg Take 1 Uni vers n 250 mg 2-17 tablet by ity of tablet 00:00: mouth in [place] 00 the Medical morning. X Branch 5 days celecoxib 2023-0 Yes TAKE ONE [facility] ers 100 mg 1-19 (1) ity of capsule 00:00: CAP[place]LE(S[place] BY MOUTH Medical TWICE A Branch DAY WITH FOOD. gabapentin 2023-0 Yes 600mg Take 600 Un [facility] 600 mg 1-19 mg by ity of tablet 00:00: mouth 4 [place] 00 (four) Medical times Branch daily. celecoxib 2023-0 Yes TAKE ONE Univ ers 100 mg 1-19 (1) ity of capsule 00:00: CAPSULE(S) [place] 00 BY MOUTH Medical TWICE A Branch DAY WITH FOOD. gabapentin 2023-0 Yes 600mg Take 600 [facility] 600 mg 1-19 mg by ity of tablet 00:00: mouth () Medical times Branch daily. celecoxib 2023-0 Yes TAKE ONE Univ ers 100 mg 1-19 (1) ity of capsule 00:00: CAPSULE(S) [place] 00 BY MOUTH Medical TWICE A Branch DAY WITH FOOD. gabapentin 2023-0 Yes 600mg Take 600 [facility] 600 mg 1-19 mg by ity of tablet 00:00: mouth () Medical times Branch daily. celecoxib 2023-0 Yes TAKE ONE Univ ers 100 mg 1-19 (1) ity of capsule 00:00: CAPSULE(S) [place] 00 BY MOUTH Medical TWICE A Branch DAY WITH FOOD. gabapentin 2023-0 Yes 600mg Take 600 [facility] 600 mg 1-19 mg by ity of tablet 00:00: mouth () Medical times Branch daily. celecoxib 2023-0 Yes TAKE ONE [facility] ers 100 mg 1-19 (1) ity of capsule 00:00: CAPSULE(S) [place] 00 BY MOUTH Medical TWICE A Branch DAY WITH FOOD. gabapentin 2023-0 Yes 600mg Take 600 [facility] 600 mg 1-19 mg by ity of tablet 00:00: mouth ([facility]) Medical times Branch daily. celecoxib 2023-0 Yes TAKE ONE Univ ers 100 mg 1-19 (1) ity of capsule 00:00: CAPSULE(S) [place] 00 BY MOUTH Medical TWICE A Branch DAY WITH FOOD. gabapentin 2023-0 Yes 600mg Take 600 [facility] 600 mg 1-19 mg by ity of tablet 00:00: mouth ([facility]) Medical times Branch daily. celecoxib 2023-0 Yes TAKE ONE [facility] ers 100 mg 1-19 (1) ity of capsule 00:00: CAPSULE(S) [place] 00 BY MOUTH Medical TWICE A Branch DAY WITH FOOD. gabapentin 2023-0 Yes 600mg Take 600 [facility] 600 mg 1-19 mg by ity of tablet 00:00: mouth ([facility]) Medical times Branch daily. celecoxib 2023-0 Yes TAKE ONE Univ ers 100 mg 1-19 (1) ity of capsule 00:00: CAPSULE(S) [place] 00 BY MOUTH Medical TWICE A Branch DAY WITH FOOD. gabapentin 2023-0 Yes 600mg Take 600 [facility] 600 mg 1-19 mg by ity of tablet 00:00: mouth (four) Medical times Branch daily. celecoxib 2023-0 Yes TAKE ONE Univ ers 100 mg 1-19 (1) ity of capsule 00:00: CAPSULE(S) [place] 00 BY MOUTH Medical TWICE A Branch DAY WITH FOOD. gabapentin 2023-0 Yes 600mg Take 600 [facility] 600 mg 1-19 mg by ity of tablet 00:00: mouth (four) Medical times Branch daily. celecoxib 2023-0 Yes TAKE ONE [facility] ers 100 mg 1-19 (1) ity of capsule 00:00: CAPSULE(S) [place] 00 BY MOUTH Medical TWICE A Branch DAY WITH FOOD. gabapentin 2023-0 Yes 600mg Take 600 [facility] 600 mg 1-19 mg by ity of tablet 00:00: mouth () Medical times Branch daily. gabapentin 2023-0 Yes 600mg Take 600 [facility] 600 mg 1-19 mg by ity of tablet 00:00: mouth () Medical times Branch daily. gabapentin 2023-0 Yes 600mg Take 600 [facility] 600 mg 1-19 mg by ity of tablet 00:00: mouth () Medical times Branch daily. gabapentin 2023-0 Yes 600mg Take 600 [facility] 600 mg 1-19 mg by ity of tablet 00:00: mouth () Medical times Branch daily. gabapentin 2023-0 Yes 600mg Take 600 [facility] 600 mg 1-19 mg by ity of tablet 00:00: mouth (four) Medical times Branch daily. gabapentin 2023-0 Yes 600mg Take 600 [facility] 600 mg 1-19 mg by ity of tablet 00:00: mouth () Medical times Branch daily. gabapentin 2023-0 Yes 600mg Take 600 [facility] 600 mg 1-19 mg by ity of tablet 00:00: mouth (four) Medical times Branch daily. gabapentin 2023-0 Yes 600mg Take 600 [facility] 600 mg 1-19 mg by ity of tablet 00:00: mouth (four) Medical times Branch daily. gabapentin 2023-0 Yes 600mg Take 1 Univ ers 600 mg 1-19 tablet by ity of tablet 00:00: mouth [place] (four) Medical times Branch daily. gabapentin 2023-0 Yes 600mg Take 1 Univ ers 600 mg 1-19 tablet by ity of tablet 00:00: mouth [place] (four) Medical times Branch daily. gabapentin 2023-0 Yes 600mg Take 1 Univ ers 600 mg 1-19 tablet by ity of tablet 00:00: mouth [address] [place] [address] (four) Medical times Branch daily. gabapentin 2023-0 Yes 600mg Take 1 Univ ers 600 mg 1-19 tablet by ity of tablet 00:00: mouth [address] [place] [address] (four) Medical times Branch daily. gabapentin 2023-0 Yes 600mg Take 1 Univ ers 600 mg 1-19 tablet by ity of tablet 00:00: [address] (four) Medical times Branch daily. gabapentin 2023-0 Yes 600mg Take 1 Univ ers 600 mg 1-19 tablet by ity of tablet 00:00: mouth [address] [place] [address] (four) Medical times Branch daily. gabapentin 2023-0 Yes 600mg Take 1 Univ ers 600 mg 1-19 tablet by ity of tablet 00:00: mouth [address] [place] [address] (four) Medical times Branch daily. gabapentin 2023-0 Yes 600mg Take 1 [facility] ers 600 mg 1-19 tablet by ity of tablet 00:00: [address] (four) Medical times Branch daily. celecoxib 2023-0 2023- No TAKE ONE [facility] vers 100 mg 1-19 08 (1) ity of capsule 00:00: 00:00 CAPSULE(S) [place] as 00 :00 BY MOUTH Medical TWICE A Branch DAY WITH FOOD. triamcinolo 2023-0 Yes 1{appli Apply 1 [facility] ne 0.5 % 14 cator} Applicator ity of cream 00:00: to area(s) [place] 00 as needed. Medical Branch triamcinolo 2023-0 Yes 1{appli Apply 1 [facility] ne 0.5 % -14 cator} Applicator ity of cream 00:00: to area(s) [place] 00 as needed. Medical Branch triamcinolo 2023-0 Yes 1{appli Apply 1 [facility] ne 0.5 % 1-14 cator} Applicator ity of cream 00:00: to area(s) [place] 00 as needed. Medical Branch [facility] Yes 1{appli Apply 1 Univers ne 0.5 % 1-14 cator} Applicator ity of cream 00:00: to area(s) [place] 00 as needed. Medical Branch [facility] Yes 1{appli Apply 1 Univers ne 0.5 % 1-14 cator} Applicator ity of cream 00:00: to area(s) [place] 00 as needed. Medical Branch [facility] Yes 1{appli Apply 1 Univers ne 0.5 % 1-14 cator} Applicator ity of cream 00:00: to area(s) [place] 00 as needed. Medical Branch [facility] Yes 1{appli Apply 1 Univers ne 0.5 % 1-14 cator} Applicator ity of cream 00:00: to area(s) [place] 00 as needed. Medical [facility] Yes 1{appli Apply 1 Univers ne 0.5 % 1-14 cator} Applicator ity of cream 00:00: to area(s) [place] 00 as needed. Medical Branch DICLOFENAC 2021-0 Yes [id number] TAKE 1 [facility] 75 mg EC 7-12 9109 TABLET BY ity of tablet 00:00: MOUTH [place] 00 TWICE A Medical DAY WITH Branch MEALS DICLOFENAC 2022-0 Yes [id number] TAKE 1 [facility] 75 mg EC 7-12 9109 TABLET BY ity of tablet 00:00: MOUTH [place] 00 TWICE A Medical DAY WITH Branch MEALS DICLOFENAC 2022-0 Yes [id number] TAKE 1 [facility] 75 mg EC 7-12 9109 TABLET BY ity of tablet 00:00: MOUTH [place] 00 TWICE A Medical DAY WITH Branch MEALS DICLOFENAC 2022-0 Yes [id number] TAKE 1 [facility] 75 mg EC 7-12 9109 TABLET BY ity of tablet 00:00: MOUTH [place] 00 TWICE A Medical DAY WITH Branch MEALS DICLOFENAC 2022-0 Yes [id number] TAKE 1 [facility] 75 mg EC 7-12 9109 TABLET BY ity of tablet 00:00: MOUTH [place] 00 TWICE A Medical DAY WITH Branch MEALS DICLOFENAC 2022-0 Yes [id number] TAKE 1 [facility] 75 mg EC 7-12 9109 TABLET BY ity of tablet 00:00: MOUTH [place] 00 TWICE A Medical DAY WITH Branch MEALS DICLOFENAC 2022-0 Yes [id number] TAKE 1 [facility] 75 mg EC 7-12 9109 TABLET BY ity of tablet 00:00: MOUTH [place] 00 TWICE A Medical DAY WITH Branch MEALS DICLOFENAC 2022-0 Yes [id number] TAKE 1 [facility] 75 mg EC 7-12 9109 TABLET BY ity of tablet 00:00: MOUTH [place] 00 TWICE A Medical DAY WITH Branch MEALS DICLOFENAC 2022-0 Yes [id number] TAKE 1 [facility] 75 mg EC 7-12 9109 TABLET BY ity of tablet 00:00: MOUTH [place] 00 TWICE A Medical DAY WITH Branch MEALS DICLOFENAC 2022-0 Yes [id number] TAKE 1 [facility] 75 mg EC 7-12 9109 TABLET BY ity of tablet 00:00: MOUTH [place] 00 TWICE A Medical DAY WITH Branch MEALS DICLOFENAC 2022-0 Yes [id number] TAKE 1 [facility] 75 mg EC 7-12 9109 TABLET BY ity of tablet 00:00: MOUTH [place] 00 TWICE A Medical DAY WITH Branch MEALS DICLOFENAC 2022-0 Yes [id number] TAKE 1 [facility] 75 mg EC 7-12 9109 TABLET BY ity of tablet 00:00: MOUTH [place] 00 TWICE A Medical DAY WITH Branch MEALS DICLOFENAC 2022-0 Yes [id number] TAKE 1 [facility] 75 mg EC 7-12 9109 TABLET BY ity of tablet 00:00: MOUTH [place] 00 TWICE A Medical DAY WITH Branch MEALS DICLOFENAC 2022-0 Yes [id number] TAKE 1 [facility] 75 mg EC 7-12 9109 TABLET BY ity of tablet 00:00: MOUTH [place] 00 TWICE A Medical DAY WITH Branch MEALS DICLOFENAC 2022-0 Yes [id number] TAKE 1 [facility] 75 mg EC 7-12 9109 TABLET BY ity of tablet 00:00: MOUTH [place] 00 TWICE A Medical DAY WITH Branch MEALS DICLOFENAC 2022-0 Yes [id number] TAKE 1 [facility] 75 mg EC 7-12 9109 TABLET BY ity of tablet 00:00: MOUTH [place] 00 TWICE A Medical DAY WITH Branch MEALS DICLOFENAC 2022-0 2023- No [id number] TAKE 1 [facility] 75 mg EC 7-12 03-08 9109 TABLET BY ity o f tablet 00:00: 00:00 MOUTH [place] 00 :00 TWICE A Medical DAY WITH Branch MEALS diclofenac 2022-0 Yes [id number] 75mg Take 1 [facility] 75 mg EC 5-23 9109 tablet by ity of tablet 00:00: mouth 2 [place] 00 (two) Medical times Branch daily with meals. diclofenac 2021-0 2- No [id number] 75mg Take 1 [facility] 75 mg EC 5-23 07-12 9109 tablet by ity o f tablet 00:00: 00:00 mouth 2 [place] 00 :00 (two) Medical times Branch daily with meals. aspirin 81 0 Yes 81mg Take 81 mg U nivers mg chewable 3-10 by mouth ity of tablet 15:33: daily. [address] Branch lisinopril 0 Yes Take by Univ ers 10 mg 3-10 mouth ity of tablet 15:33: daily. [address] Branch albuterol Yes 1{ampul Use 1 Univ ers 1.25 mg/3 3-10 e} Ampule as ity o f mL 15:33: directed [place] nebulizer 56 every 6 Medical solution (six) Branch hours as needed for Wheezing. ALPRAZolam Yes 1mg Take 1 mg Un lala (XANAX) 1 3-10 by mouth 3 ity of mg tablet 15:33: (three) [place] [address] times [facility] daily. Branch omeprazole 0 Yes 40mg Take 40 mg U nivers 40 mg 3-10 by mouth ity of capsule 15:33: daily. [address] loratadine 0 Yes 10mg Take 10 mg U nivers 10 mg 3-10 by mouth ity of tablet 15:33: daily. [address] aspirin 81 0 Yes 81mg Take 81 mg U nivers mg chewable 3-10 by mouth ity of tablet 15:33: daily. [address] Branch lisinopril 0 Yes Take by Univ ers 10 mg 3-10 mouth ity of tablet 15:33: daily. [address] Branch albuterol 0 Yes 1{ampul Use 1 [facility] ers 1.25 mg/3 3-10 e} Ampule as ity o f mL 15:33: directed [place] nebulizer 56 every 6 Medical solution (six) Branch hours as needed for Wheezing. ALPRAZolam 0 Yes 1mg Take 1 mg Un lala (XANAX) 1 3-10 by mouth 3 ity of mg tablet 15:33: (three) [place] [address] times Medical daily. Branch omeprazole 2-0 Yes 40mg Take 40 mg U nivers 40 mg 3-10 by mouth ity of capsule 15:33: daily. [address] Branch loratadine 2021-0 Yes 10mg Take 10 mg U nivers 10 mg 3-10 by mouth ity of tablet 15:33: daily. [address] aspirin 81 2-0 Yes 81mg Take 81 mg U nivers mg chewable 3-10 by mouth ity of tablet 15:33: daily. [address] Branch lisinopril 2021-0 Yes Take by Univ ers 10 mg 3-10 mouth ity of tablet 15:33: daily. [address] albuterol 2021-0 Yes 1{ampul Use 1 Univ ers 1.25 mg/3 3-10 e} Ampule as ity o f mL 15:33: directed [place] nebulizer 56 every 6 Medical solution (six) Branch hours as needed for Wheezing. ALPRAZolam 2021-0 Yes 1mg Take 1 mg Un l[facility] (XANAX) 1 3-10 by mouth 3 ity of mg tablet 15:33: (three) [address] Medical daily. Branch omeprazole 2021-0 Yes 40mg Take 40 mg U nivers 40 mg 3-10 by mouth ity of capsule 15:33: daily. [address] loratadine 2021-0 Yes 10mg Take 10 mg U nivers 10 mg 3-10 by mouth ity of tablet 15:33: daily. [address] aspirin 81 2021-0 Yes 81mg Take 81 mg U nivers mg chewable 3-10 by mouth ity of tablet 15:33: daily. [address] Branch lisinopril 2021-0 Yes Take by Univ ers 10 mg 3-10 mouth ity of tablet 15:33: daily. [address] Branch albuterol 2021-0 Yes 1{ampul Use 1 [facility] ers 1.25 mg/3 3-10 e} Ampule as ity o f mL 15:33: directed [place] nebulizer 56 every 6 Medical solution (six) Branch hours as needed for Wheezing. ALPRAZolam 2021-0 Yes 1mg Take 1 mg Un lala (XANAX) 1 3-10 by mouth 3 ity of mg tablet 15:33: (three) [place] [address] times Medical daily. Branch omeprazole 2021-0 Yes 40mg Take 40 mg U nivers 40 mg 3-10 by mouth ity of capsule 15:33: daily. [address] Branch loratadine 2021-0 Yes 10mg Take 10 mg U nivers 10 mg 3-10 by mouth ity of tablet 15:33: daily. [address] aspirin 81 2021-0 Yes 81mg Take 81 mg U nivers mg chewable 3-10 by mouth ity of tablet 15:33: daily. [address] Branch lisinopril 2021-0 Yes Take by Univ ers 10 mg 3-10 mouth ity of tablet 15:33: daily. [address] albuterol 2021-0 Yes 1{ampul Use 1 Univ ers 1.25 mg/3 3-10 e} Ampule as ity o f mL 15:33: directed [place] nebulizer every 6 Medical solution (six) Branch hours as needed for Wheezing. ALPRAZolam 0 Yes 1mg Take 1 mg Un l[facility] (XANAX) 1 3-10 by mouth 3 ity of mg tablet 15:33: (three) [address] Medical daily. Branch omeprazole 2021-0 Yes 40mg Take 40 mg U nivers 40 mg 3-10 by mouth ity of capsule 15:33: daily. [address] loratadine 2021-0 Yes 10mg Take 10 mg U nivers 10 mg 3-10 by mouth ity of tablet 15:33: daily. [address] aspirin 81 2021-0 Yes 81mg Take 81 mg U nivers mg chewable 3-10 by mouth ity of tablet 15:33: daily. [address] Branch lisinopril 2021-0 Yes Take by Univ ers 10 mg 3-10 mouth ity of tablet 15:33: daily. [address] Branch albuterol 2021-0 Yes 1{ampul Use 1 Univ ers 1.25 mg/3 3-10 e} Ampule as ity o f mL 15:33: directed [place] nebulizer 56 every 6 Medical solution (six) Branch hours as needed for Wheezing. ALPRAZolam 2021-0 Yes 1mg Take 1 mg Un l[facility] (XANAX) 1 3-10 by mouth 3 ity of mg tablet 15:33: (three) [place] [address] times Medical daily. Branch omeprazole 2021-0 Yes 40mg Take 40 mg U nivers 40 mg 3-10 by mouth ity of capsule 15:33: daily. [address] loratadine 2021-0 Yes 10mg Take 10 mg U nivers 10 mg 3-10 by mouth ity of tablet 15:33: daily. [address] aspirin 81 2021-0 Yes 81mg Take 81 mg U nivers mg chewable 3-10 by mouth ity of tablet 15:33: daily. [address] lisinopril 2021-0 Yes Take by Univ ers 10 mg 3-10 mouth ity of tablet 15:33: daily. [address] albuterol 2021-0 Yes 1{ampul Use 1 Univ ers 1.25 mg/3 3-10 e} Ampule as ity o f mL 15:33: directed [place] nebulizer every 6 Medical solution (six) Branch hours as needed for Wheezing. ALPRAZolam 0 Yes 1mg Take 1 mg Un l[facility] (XANAX) 1 3-10 by mouth 3 ity of mg tablet 15:33: (three) [address] Medical daily. Branch omeprazole 2021-0 Yes 40mg Take 40 mg U nivers 40 mg 3-10 by mouth ity of capsule 15:33: daily. [address] loratadine 2021-0 Yes 10mg Take 10 mg U nivers 10 mg 3-10 by mouth ity of tablet 15:33: daily. [address] aspirin 81 2021-0 Yes 81mg Take 81 mg U nivers mg chewable 3-10 by mouth ity of tablet 15:33: daily. [address] lisinopril 2021-0 Yes Take by Univ ers 10 mg 3-10 mouth ity of tablet 15:33: daily. [address] albuterol 2021-0 Yes 1{ampul Use 1 Univ ers 1.25 mg/3 3-10 e} Ampule as ity o f mL 15:33: directed [place] nebulizer 56 every 6 Medical solution (six) Branch hours as needed for Wheezing. ALPRAZolam 2021-0 Yes 1mg Take 1 mg Un [facility] (XANAX) 1 3-10 by mouth 3 ity of mg tablet 15:33: (three) [place] [address] times Medical daily. Branch omeprazole 2021-0 Yes 40mg Take 40 mg U nivers 40 mg 3-10 by mouth ity of capsule 15:33: daily. [address] Branch loratadine 2021-0 Yes 10mg Take 10 mg U nivers 10 mg 3-10 by mouth ity of tablet 15:33: daily. [address] aspirin 81 2021-0 Yes 81mg Take 81 mg U nivers mg chewable 3-10 by mouth ity of tablet 15:33: daily. [address] lisinopril 2021-0 Yes Take by Univ ers 10 mg 3-10 mouth ity of tablet 15:33: daily. [address] albuterol 2021-0 Yes 1{ampul Use 1 Univ ers 1.25 mg/3 3-10 e} Ampule as ity o f mL 15:33: directed [place] nebulizer every 6 Medical solution (six) Branch hours as needed for Wheezing. ALPRAZolam 0 Yes 1mg Take 1 mg Un l[facility] (XANAX) 1 3-10 by mouth 3 ity of mg tablet 15:33: (three) [address] Medical daily. Branch omeprazole 2021-0 Yes 40mg Take 40 mg U nivers 40 mg 3-10 by mouth ity of capsule 15:33: daily. [address] loratadine 2021-0 Yes 10mg Take 10 mg U nivers 10 mg 3-10 by mouth ity of tablet 15:33: daily. [address] aspirin 81 2021-0 Yes 81mg Take 81 mg U nivers mg chewable 3-10 by mouth ity of tablet 15:33: daily. [address] lisinopril 2021-0 Yes Take by Univ ers 10 mg 3-10 mouth ity of tablet 15:33: daily. [address] albuterol 2021-0 Yes 1{ampul Use 1 Univ ers 1.25 mg/3 3-10 e} Ampule as ity o f mL 15:33: directed [place] nebulizer every 6 Medical solution (six) Branch hours as needed for Wheezing. ALPRAZolam 2021-0 Yes 1mg Take 1 mg Un l[facility] (XANAX) 1 3-10 by mouth 3 ity of mg tablet 15:33: (three) [place] [address] times Medical daily. Branch omeprazole 2021-0 Yes 40mg Take 40 mg U nivers 40 mg 3-10 by mouth ity of capsule 15:33: daily. [address] Branch loratadine 2021-0 Yes 10mg Take 10 mg U nivers 10 mg 3-10 by mouth ity of tablet 15:33: daily. [address] Branch diclofenac 2-0 Yes 75mg Take 1 Unive rs 75 mg EC 2-09 tablet by ity of tablet 00:00: mouth 2 [place] (two) Medical times Branch daily with meals. diclofenac 2-0 Yes 75mg Take 1 Unive rs 75 mg EC 2-09 tablet by ity of tablet 00:00: mouth 2 [place] (two) Medical times Branch daily with meals. diclofenac 2-0 Yes 75mg Take 1 Unive rs 75 mg EC 2-09 tablet by ity of tablet 00:00: mouth 2 [place] (two) Medical times Branch daily with meals. diclofenac 2-0 Yes 75mg Take 1 Unive rs 75 mg EC 2-09 tablet by ity of tablet 00:00: mouth 2 [place] (two) Medical times Branch daily with meals. diclofenac 2-0 Yes 75mg Take 1 Unive rs 75 mg EC 2-09 tablet by ity of tablet 00:00: mouth 2 [place] (two) Medical times Branch daily with meals. diclofenac 2-0 Yes 75mg Take 1 Unive rs 75 mg EC 2-09 tablet by ity of tablet 00:00: mouth 2 [place] 00 (two) Medical times Branch daily with meals. diclofenac 2021-0 2021- No 75mg Take 1 Univ ers 75 mg EC 2-09 05-23 tablet by ity o f tablet 00:00: 00:00 mouth 2 [place] 00 :00 (two) Medical times Branch daily with meals. atorvastati 2021-0 Yes 20mg Take 20 mg Univers n 20 mg 2-03 by mouth ity of tablet 14:05: daily. [address] atorvastati 2021-0 Yes 20mg Take 20 mg Univers n 20 mg 2-03 by mouth ity of tablet 14:05: daily. [address] atorvastati 2021-0 Yes 20mg Take 20 mg Univers n 20 mg 2-03 by mouth ity of tablet 14:05: daily. [address] atorvastati Yes 20mg Take 20 mg Univers n 20 mg 2-03 by mouth ity of tablet 14:05: daily. [address] atorvastati 0 Yes 20mg Take 20 mg Univers n 20 mg 2-03 by mouth ity of tablet 14:05: daily. [address] atorvastati Yes 20mg Take 20 mg Univers n 20 mg 2-03 by mouth ity of tablet 14:05: daily. [address] atorvastati 0 Yes 20mg Take 20 mg Univers n 20 mg 2-03 by mouth ity of tablet 14:05: daily. [address] atorvastati Yes 20mg Take 20 mg Univers n 20 mg 2-03 by mouth ity of tablet 14:05: daily. [address] atorvastati Yes 20mg Take 20 mg Univers n 20 mg 2-03 by mouth ity of tablet 14:05: daily. [address] atorvastati Yes 20mg Take 20 mg Univers n 20 mg 2-03 by mouth ity of tablet 14:05: daily. [address] atorvastati Yes 20mg Take 20 mg Univers n 20 mg 2-03 by mouth ity of tablet 14:05: daily. [address] atorvastati Yes 20mg Take 20 mg Univers n 20 mg 2-03 by mouth ity of tablet 14:05: daily. [address] atorvastati Yes 20mg Take 20 mg Univers n 20 mg 2-03 by mouth ity of tablet 14:05: daily. [address] traMADoL 50 0 Yes 4647 50mg [...] 7-10). Indication s: acute pain traMADoL 50 2-0 Yes 4647 50mg Take 1 Univ ers mg tablet 1-03 tablet by ity o f 00:00: mouth [place] 00 every 4 Medical (four) Branch hours as needed for Pain (scale 7-10). Indication s: acute pain traMADoL 50 2-0 Yes 4647 50mg Take 1 Univ ers [...] 7-10). Indication s: acute pain traMADoL 50 2-0 Yes 4647 50mg Take 1 Univ ers mg tablet 1-03 tablet by ity o f 00:00: mouth [place] 00 every 4 Medical (four) Branch hours as needed for Pain (scale 7-10). Indication s: acute pain traMADoL 50 2-0 Yes 4647 50mg Take 1 [facility] ers mg tablet 1-03 tablet by ity o f 00:00: mouth [place] 00 every 4 Medical (four) Branch hours as needed for Pain (scale 7-10). Indication s: acute pain traMADoL 50 2-0 Yes 4647 50mg Take 1 Univ ers [...] Pain (scale 7-10). Indication s: acute pain budesonide- 2020-0 Yes Symbicort M ethodi formoteroL [...] 13:54: tablet [facility] tablet [facility] l lisinopriL 2019-0 Yes lisinopril M ethodi (PRINIVIL) [...] mcg/actuat l on inhaler ion aerosol inhaler lisinopriL 2019-0 Yes lisinopril M ethodi (PRINIVIL) 3-[address] 10 mg 13:54: tablet [facility] tablet 49 l predniSONE 2020-0 Yes [...] mg nebulizer base)/3 mL nebulizati on soln gabapentin 2019-0 Yes gabapentin M ethodi (NEURONTIN) [...] mcg/actuat l on inhaler ion aerosol inhaler diclofenac 2019-0 Yes diclofenac M ethodi (VOLTAREN) [...] 13:54: tablet [facility] tablet 49 l lisinopriL 2019-0 Yes lisinopril M ethodi (PRINIVIL) [...] 13:54: tablet [facility] tablet 49 l lisinopriL 2019-0 Yes lisinopril M ethodi (PRINIVIL) 3-[address] 10 mg 13:54: tablet [facility] tablet 49 l ipratropium 2019-0 Yes ipratropiu Methodi -albuteroL 3-[address] (DUO-NEB) 13:54: mg-albuter Ho spita 0.5-2.5 49 ol 3 mg l mg/3 mL (2.5 mg nebulizer base)/3 mL nebulizati on soln diclofenac 0 Yes diclofenac M ethodi (VOLTAREN) 3-[address] 75 MG EC 13:54: mg [facility]osp[facility] tablet 49 tablet,del l ayed release busPIRone 2019-0 Yes buspirone Met hodi (BUSPAR) 10 3-[address] MG tablet 13:54: tablet Hospit a 49 l Methylpredn 2018-03 No 1 As KEN U isolone 2-25 Directed S (Medrol 18:52: Health Dose-Pack) 00 21 Tab/Dspk TAB Methylpredn 2018-03 No 1 Southe a isolone 2-25 st (Medrol 18:52: [place] Dose-Pack) 00 LIVE 21 Tab/Dspk HCIS TAB ALPRAZolam 2018-03 Yes 1mg Take 1 mg Un lala (XANAX) 1 2-13 by mouth 3 ity of mg tablet 13:41: (three) [place] 15 times Medical daily. Branch omeprazole 2018-03 Yes 40mg Take 40 mg U nivers 40 mg 2-13 by mouth ity of capsule 13:41: daily. [address] loratadine 2018-03 Yes 10mg Take 10 mg U nivers 10 mg 2-13 by mouth ity of tablet 13:41: daily. [address] aspirin 81 2018-03 Yes 81mg Take 81 mg U nivers mg chewable 2-13 by mouth ity of tablet 13:41: daily. [address] lisinopril 2018-03 Yes Take by Univ ers 10 mg 2-13 mouth ity of tablet 13:41: daily. [address] albuterol 2018-03 Yes 1{ampul Use 1 Univ ers 1.25 mg/3 2-13 e} Ampule as ity o f mL 13:41: directed [place] nebulizer 15 every 6 Medical solution (six) Branch hours as needed for Wheezing. ALPRAZolam 2018-03 Yes 1mg Take 1 mg Un lala (XANAX) 1 2-13 by mouth 3 ity of mg tablet 13:41: (three) [place] 15 times Medical daily. Branch omeprazole 2018-03 Yes 40mg Take 40 mg U nivers 40 mg 2-13 by mouth ity of capsule 13:41: daily. [address] loratadine 2018-03 Yes 10mg Take 10 mg U nivers 10 mg 2-13 by mouth ity of tablet 13:41: daily. [address] aspirin 81 2018-03 Yes 81mg Take 81 mg U nivers mg chewable 2-13 by mouth ity of tablet 13:41: daily. [address] lisinopril 2018-03 Yes Take by Univ ers 10 mg 2-13 mouth ity of tablet 13:41: daily. [address] albuterol 2018-03 Yes 1{ampul Use 1 Univ ers 1.25 mg/3 2-13 e} Ampule as ity o f mL 13:41: directed [place] nebulizer 15 every 6 Medical solution (six) Branch hours as needed for Wheezing. ALPRAZolam 2018-03 Yes 1mg Take 1 mg Un lala (XANAX) 1 2-13 by mouth 3 ity of mg tablet 13:41: (three) [place] 15 times Medical daily. Branch omeprazole 2018-03 Yes 40mg Take 40 mg U nivers 40 mg 2-13 by mouth ity of capsule 13:41: daily. [address] Branch loratadine 2018-03 Yes 10mg Take 10 mg U nivers 10 mg 2-13 by mouth ity of tablet 13:41: daily. [address] Branch aspirin 81 2018- Yes 81mg Take 81 mg U nivers mg chewable 2-13 by mouth ity of tablet 13:41: daily. [address] Branch lisinopril 2018-03 Yes Take by Univ ers 10 mg 2-13 mouth ity of tablet 13:41: daily. [address] Branch albuterol 2018- Yes 1{ampul Use 1 Univ ers 1.25 mg/3 2-13 e} Ampule as ity o f mL 13:41: directed [place] nebulizer 15 every 6 Medical solution (six) Branch hours as needed for Wheezing. benzonatate 2018-03 Yes [id number] 100mg Take 1 [facility] 100 mg 2-11 capsule by ity of capsule 00:00: mouth 3 [place] [address] (three) Medical times Branch daily as needed for Cough. benzonatate 2018-03 Yes [id number] 100mg Take 1 [facility] 100 mg 2-11 capsule by ity of capsule 00:00: mouth 3 [place] [address] (three) Medical times Branch daily as needed for Cough. benzonatate 2018-03 Yes [id number] 100mg Take 1 [facility] 100 mg 2-11 capsule by ity of capsule 00:00: mouth 3 [place] 00 (three) Medical times Branch daily as needed for Cough. benzonatate 2018-03 Yes [id number] 100mg Take 1 [facility] 100 mg 2-11 capsule by ity of capsule 00:00: mouth 3 [place] 00 (three) Medical times Branch daily as needed for Cough. benzonatate 2018-03 Yes [id number] 100mg Take 1 [facility] 100 mg 2-11 capsule by ity of capsule 00:00: mouth 3 [place] 00 (three) Medical times Branch daily as needed for Cough. benzonatate 2018-03 Yes [id number] 100mg Take 1 [facility] 100 mg 2-11 capsule by ity of capsule 00:00: mouth 3 [place] 00 (three) Medical times Branch daily as needed for Cough. benzonatate 2018-03 Yes [id number] 100mg Take 1 [facility] 100 mg 2-11 capsule by ity of capsule 00:00: mouth 3 [place] 00 (three) Medical times Branch daily as needed for Cough. benzonatate 2018-03 Yes [id number] 100mg Take 1 [facility] 100 mg 2-11 capsule by ity of capsule 00:00: mouth 3 00 (three) Medical times Branch daily as needed for Cough. benzonatate 2018-03 Yes [id number] 100mg Take 1 [facility] 100 mg 2-11 capsule by ity of capsule 00:00: mouth 3 [place] 00 (three) Medical times Branch daily as needed for Cough. benzonatate 2018-03 Yes [id number] 100mg Take 1 [facility] 100 mg 2-11 capsule by ity of capsule 00:00: mouth 3 [place] 00 (three) Medical times Branch daily as needed for Cough. benzonatate 2018-03 Yes [id number] 100mg Take 1 [facility] 100 mg 2-11 capsule by ity of capsule 00:00: mouth 3 00 (three) Medical times Branch daily as needed for Cough. benzonatate 2018-03 Yes [id number] 100mg Take 1 [facility] 100 mg 2-11 capsule by ity of capsule 00:00: mouth 3 (three) Medical times Branch daily as needed for Cough. benzonatate 2018-03 Yes [id number] 100mg Take 1 [facility] 100 mg 2-11 capsule by ity of capsule 00:00: mouth 3 (three) Medical times Branch daily as needed for Cough. benzonatate 2018-03 Yes [id number] 100mg Take 1 [facility] 100 mg 2-11 capsule by ity of capsule 00:00: mouth 3 00 (three) Medical times Branch daily as needed for Cough. benzonatate 2018-03 Yes [id number] 100mg Take 1 [facility] 100 mg 2-11 capsule by ity of capsule 00:00: mouth 3 00 (three) Medical times Branch daily as needed for Cough. benzonatate 2018-03 Yes [id number] 100mg Take 1 [facility] 100 mg 2-11 capsule by ity of capsule 00:00: mouth 3 00 (three) Medical times Branch daily as needed for Cough. benzonatate 2018-03 Yes [id number] 100mg Take 1 [facility] 100 mg 2-11 capsule by ity of capsule 00:00: mouth 3 [place] 00 (three) Medical times Branch daily as needed for Cough. benzonatate 2018-03 Yes [id number] 100mg Take 1 [facility] 100 mg 2-11 capsule by ity of capsule 00:00: mouth 3 00 (three) Medical times Branch daily as needed for Cough. benzonatate 2018-03 Yes [id number] 100mg Take 1 [facility] 100 mg 2-11 capsule by ity of capsule 00:00: mouth 3 (three) Medical times Branch daily as needed for Cough. benzonatate 2018-03 Yes [id number] 100mg Take 1 [facility] 100 mg 2-11 capsule by ity of capsule 00:00: mouth 3 (three) Medical times Branch daily as needed for Cough. benzonatate 2018-03 Yes [id number] 100mg Take 1 [facility] 100 mg 2-11 capsule by ity of capsule 00:00: mouth 3 [place] (three) Medical times Branch daily as needed for Cough. benzonatate 2018-03 Yes [id number] 100mg Take 1 [facility] 100 mg 2-11 capsule by ity of capsule 00:00: mouth 3 (three) Medical times Branch daily as needed for Cough. benzonatate 2018-03 Yes [id number] 100mg Take 1 [facility] 100 mg 2-11 capsule by ity of capsule 00:00: mouth 3 (three) Medical times Branch daily as needed for Cough. benzonatate 2018-03 Yes [id number] 100mg Take 1 [facility] 100 mg 2-11 capsule by ity of capsule 00:00: mouth 3 (three) Medical times Branch daily as needed for Cough. benzonatate 2018-03 Yes [id number] 100mg Take 1 [facility] 100 mg 2-11 capsule by ity of capsule 00:00: mouth 3 (three) Medical times Branch daily as needed for Cough. benzonatate 2018-03 Yes [id number] 100mg Take 1 [facility] 100 mg 2-11 capsule by ity of capsule 00:00: mouth 3 (three) Medical times Branch daily as needed for Cough. benzonatate 2018-03 Yes [id number] 100mg Take 1 [facility] 100 mg 2-11 capsule by ity of capsule 00:00: mouth 3 (three) Medical times Branch daily as needed for Cough. benzonatate 2018-03 Yes [id number] 100mg Take 1 [facility] 100 mg 2-11 capsule by ity of capsule 00:00: mouth 3 (three) Medical times Branch daily as needed for Cough. benzonatate 2018-03 Yes [id number] 100mg Take 1 [facility] 100 mg 2-11 capsule by ity of capsule 00:00: mouth 3 (three) Medical times Branch daily as needed for Cough. benzonatate 2018-03 Yes [id number] 100mg Take 1 [facility] 100 mg 2-11 capsule by ity of capsule 00:00: mouth 3 [place] 00 (three) Medical times Branch daily as needed for Cough. benzonatate 2018-03 Yes [id number] 100mg Take 1 [facility] 100 mg 2-11 capsule by ity of capsule 00:00: mouth 3 [place] 00 (three) Medical times Branch daily as needed for Cough. benzonatate 2018-03 Yes [id number] 100mg Take 1 [facility] 100 mg 2-11 capsule by ity of capsule 00:00: mouth 3 [place] 00 (three) Medical times Branch daily as needed for Cough. benzonatate 2018-03 Yes [id number] 100mg Take 1 [facility] 100 mg 2-11 capsule by ity of capsule 00:00: mouth 3 [place] 00 (three) Medical times Branch daily as needed for Cough. benzonatate 2018-03 Yes [id number] 100mg Take 1 [facility] 100 mg 2-11 capsule by ity of capsule 00:00: mouth 3 [place] 00 (three) Medical times Branch daily as needed for Cough. benzonatate 2018-03 Yes [id number] 100mg Take 1 [facility] 100 mg 2-11 capsule by ity of capsule 00:00: mouth 3 [place] 00 (three) Medical times Branch daily as needed for Cough. benzonatate 2018-03 Yes [id number] 100mg Take 1 [facility] 100 mg 2-11 capsule by ity of capsule 00:00: mouth 3 [place] 00 (three) Medical times Branch daily as needed for Cough. benzonatate 2018-03 Yes [id number] 100mg Take 1 [facility] 100 mg 2-11 capsule by ity of capsule 00:00: mouth 3 [place] 00 (three) Medical times Branch daily as needed for Cough. benzonatate 2018-03 Yes [id number] 100mg Take 1 [facility] 100 mg 2-11 [...] Immunizations Ordered Filled Immunization Date Status Comments [facility] e Immunization Name Name SARS-COV-2 COVID-19 2020-10-15 Completed Unive rsity of PFIZER VACCINE 00:00:00 [facility] SARS-COV-2 COVID-19 2020-10-15 Completed Unive rsity of PFIZER VACCINE 00:00:00 [facility] SARS-COV-2 COVID-19 2020-10-15 Completed Unive rsity of PFIZER VACCINE 00:00:00 [place] [facility] SARS-COV-2 COVID-19 2020-10-15 Completed Unive rsity of PFIZER VACCINE 00:00:00 [facility] SARS-COV-2 COVID-19 2020-10-15 Completed Unive rsity of PFIZER VACCINE 00:00:00 [facility] SARS-COV-2 COVID-19 2020-10-15 Completed Unive rsity of PFIZER VACCINE 00:00:00 [facility] SARS-COV-2 COVID-19 2020-10-15 Completed Unive rsity of PFIZER VACCINE 00:00:00 [facility] SARS-COV-2 COVID-19 2020-10-15 Completed Unive rsity of PFIZER VACCINE 00:00:00 [facility] SARS-COV-2 COVID-19 2020-10-15 Completed Unive rsity of PFIZER VACCINE 00:00:00 [facility] SARS-COV-2 COVID-19 2020-10-15 Completed Unive rsity of PFIZER VACCINE 00:00:00 [facility] SARS-COV-2 COVID-19 2020-10-15 Completed Unive rsity of PFIZER VACCINE 00:00:00 [facility] SARS-COV-2 COVID-19 2020-10-15 Completed Unive rsity of PFIZER VACCINE 00:00:00 [facility] SARS-COV-2 COVID-19 2020-10-15 Completed Unive rsity of PFIZER VACCINE 00:00:00 [facility] SARS-COV-2 COVID-19 2020-10-15 Completed Unive rsity of PFIZER VACCINE 00:00:00 [facility] SARS-COV-2 COVID-19 2020-10-15 Completed Unive rsity of PFIZER VACCINE 00:00:00 [facility] SARS-COV-2 COVID-19 2020-10-15 Completed Unive rsity of PFIZER VACCINE 00:00:00 [facility] SARS-COV-2 COVID-19 2020-10-15 Completed Unive rsity of PFIZER VACCINE 00:00:00 [facility] SARS-COV-2 COVID-19 2020-10-15 Completed Unive rsity of PFIZER VACCINE 00:00:00 [facility] SARS-COV-2 COVID-19 2020-10-15 Completed Unive rsity of PFIZER VACCINE 00:00:00 [facility] SARS-COV-2 COVID-19 2020-10-15 Completed Unive rsity of PFIZER VACCINE 00:00:00 [facility] SARS-COV-2 COVID-19 2020-10-15 Completed Unive rsity of PFIZER VACCINE 00:00:00 [facility] SARS-COV-2 COVID-19 2020-10-15 Completed Unive rsity of PFIZER VACCINE 00:00:00 [facility] SARS-COV-2 COVID-19 2020-10-15 Completed Unive rsity of PFIZER VACCINE 00:00:00 [facility] SARS-COV-2 COVID-19 2020-10-15 Completed Unive rsity of PFIZER VACCINE 00:00:00 [facility] SARS-COV-2 COVID-19 2020-10-15 Completed Unive rsity of PFIZER VACCINE 00:00:00 [facility] SARS-COV-2 COVID-19 2020-10-15 Completed Unive rsity of PFIZER VACCINE 00:00:00 [facility] SARS-COV-2 COVID-19 2020-10-15 Completed Unive rsity of PFIZER VACCINE 00:00:00 [facility] SARS-COV-2 COVID-19 2020-10-15 Completed Unive rsity of PFIZER VACCINE 00:00:00 [facility] SARS-COV-2 COVID-19 2020-10-15 Completed Unive rsity of PFIZER VACCINE 00:00:00 [facility] SARS-COV-2 COVID-19 2020-10-15 Completed Unive rsity of PFIZER VACCINE 00:00:00 [facility] SARS-COV-2 COVID-19 2020-10-15 Completed Unive rsity of PFIZER VACCINE 00:00:00 [facility] SARS-COV-2 COVID-19 2020-10-15 Completed Unive rsity of PFIZER VACCINE 00:00:00 [facility] SARS-COV-2 COVID-19 2020-10-15 Completed Unive rsity of PFIZER VACCINE 00:00:00 [facility] SARS-COV-2 COVID-19 2020-10-15 Completed Unive rsity of PFIZER VACCINE 00:00:00 [facility] SARS-COV-2 COVID-19 2020-10-15 Completed Unive rsity of PFIZER VACCINE 00:00:00 [facility] SARS-COV-2 COVID-19 2020-10-15 Completed Unive rsity of PFIZER VACCINE 00:00:00 [facility] SARS-COV-2 COVID-19 2020-10-15 Completed Unive rsity of PFIZER VACCINE 00:00:00 [facility] SARS-COV-2 COVID-19 2020-10-15 Completed Unive rsity of PFIZER VACCINE 00:00:00 [facility] SARS-COV-2 COVID-19 2020-09-22 Completed Unive rsity of PFIZER VACCINE 00:00:00 [facility] SARS-COV-2 COVID-19 2020-09-22 Completed Unive rsity of PFIZER VACCINE 00:00:00 [facility] SARS-COV-2 COVID-19 2020-09-22 Completed Unive rsity of PFIZER VACCINE 00:00:00 [facility] SARS-COV-2 COVID-19 2020-09-22 Completed Unive rsity of PFIZER VACCINE 00:00:00 [facility] SARS-COV-2 COVID-19 2020-09-22 Completed Unive rsity of PFIZER VACCINE 00:00:00 [facility] SARS-COV-2 COVID-19 2020-09-22 Completed Unive rsity of PFIZER VACCINE 00:00:00 [facility] SARS-COV-2 COVID-19 2020-09-22 Completed Unive rsity of PFIZER VACCINE 00:00:00 [facility] SARS-COV-2 COVID-19 2020-09-22 Completed Unive rsity of PFIZER VACCINE 00:00:00 [facility] SARS-COV-2 COVID-19 2020-09-22 Completed Unive rsity of PFIZER VACCINE 00:00:00 [facility] SARS-COV-2 COVID-19 2020-09-22 Completed Unive rsity of PFIZER VACCINE 00:00:00 [facility] SARS-COV-2 COVID-19 2020-09-22 Completed Unive rsity of PFIZER VACCINE 00:00:00 [facility] SARS-COV-2 COVID-19 2020-09-22 Completed Unive rsity of PFIZER VACCINE 00:00:00 [facility] SARS-COV-2 COVID-19 2020-09-22 Completed Unive rsity of PFIZER VACCINE 00:00:00 [facility] SARS-COV-2 COVID-19 2020-09-22 Completed Unive rsity of PFIZER VACCINE 00:00:00 [facility] SARS-COV-2 COVID-19 2020-09-22 Completed Unive rsity of PFIZER VACCINE 00:00:00 [facility] SARS-COV-2 COVID-19 2020-09-22 Completed Unive rsity of PFIZER VACCINE 00:00:00 [facility] SARS-COV-2 COVID-19 2020-09-22 Completed Unive rsity of PFIZER VACCINE 00:00:00 [facility] SARS-COV-2 COVID-19 2020-09-22 Completed Unive rsity of PFIZER VACCINE 00:00:00 [facility] SARS-COV-2 COVID-19 2020-09-22 Completed Unive rsity of PFIZER VACCINE 00:00:00 [facility] SARS-COV-2 COVID-19 2020-09-22 Completed Unive rsity of PFIZER VACCINE 00:00:00 [facility] SARS-COV-2 COVID-19 2020-09-22 Completed Unive rsity of PFIZER VACCINE 00:00:00 [facility] SARS-COV-2 COVID-19 2020-09-22 Completed Unive rsity of PFIZER VACCINE 00:00:00 [facility] SARS-COV-2 COVID-19 2020-09-22 Completed Unive rsity of PFIZER VACCINE 00:00:00 [facility] SARS-COV-2 COVID-19 2020-09-22 Completed Unive rsity of PFIZER VACCINE 00:00:00 [facility] SARS-COV-2 COVID-19 2020-09-22 Completed Unive rsity of PFIZER VACCINE 00:00:00 [facility] SARS-COV-2 COVID-19 2020-09-22 Completed Unive rsity of PFIZER VACCINE 00:00:00 [facility] SARS-COV-2 COVID-19 2020-09-22 Completed Unive rsity of PFIZER VACCINE 00:00:00 [facility] SARS-COV-2 COVID-19 2020-09-22 Completed Unive rsity of PFIZER VACCINE 00:00:00 [facility] SARS-COV-2 COVID-19 2020-09-22 Completed Unive rsity of PFIZER VACCINE 00:00:00 [facility] SARS-COV-2 COVID-19 2020-09-22 Completed Unive rsity of PFIZER VACCINE 00:00:00 [facility] SARS-COV-2 COVID-19 2020-09-22 Completed Unive rsity of PFIZER VACCINE 00:00:00 [facility] SARS-COV-2 COVID-19 2020-09-22 Completed Unive rsity of PFIZER VACCINE 00:00:00 [facility] SARS-COV-2 COVID-19 2020-09-22 Completed Unive rsity of PFIZER VACCINE 00:00:00 [facility] SARS-COV-2 COVID-19 2020-09-22 Completed Unive rsity of PFIZER VACCINE 00:00:00 [facility] SARS-COV-2 COVID-19 2020-09-22 Completed Unive rsity of PFIZER VACCINE 00:00:00 [facility] SARS-COV-2 COVID-19 2020-09-22 Completed Unive rsity of PFIZER VACCINE 00:00:00 [facility] SARS-COV-2 COVID-19 2020-09-22 Completed Unive rsity of PFIZER VACCINE 00:00:00 [facility] SARS-COV-2 COVID-19 2020-09-22 Completed Unive rsity of PFIZER VACCINE 00:00:00 [facility] Vital Signs Vital Name Observation Time Observation Value Comments Source Respiratory rate 2022-05-08 00:05:00 16 /min Univ ersity of [facility] Oxygen saturation in 2022-05-08 00:05:00 96 /min [facility] Arterial blood by [facility] Pulse oximetry Branch Systolic blood 2022-05-07 22:20:00 138 mm[Hg] Univer sity of pressure [facility] Diastolic blood 2022-05-07 22:20:00 82 mm[Hg] Unive rsity of pressure [facility] Heart rate 2022-05-07 22:20:00 78 /[facility] Body temperature 2022-05-07 22:20:00 37.06 Laura [facility] [place] [facility] Body height 2022-05-07 22:20:00 157.5 cm [facility] [place] [facility] Body weight 2022-05-07 22:20:00 81.647 kg [facility] [place] [facility] BMI 2022-05-07 22:20:00 32.92 kg/m2 [facility] [place] [facility] Body height 2022-05-02 16:21:00 157.5 cm [facility] [place] [facility] Body weight 2022-05-02 16:21:00 82.373 kg [facility] [place] [facility] BMI 2022-05-02 16:21:00 33.22 kg/m2 [facility] Systolic blood 2022-04-23 14:33:00 138 mm[Hg] Univer [facility]ity of [facility] Diastolic blood 2022-04-23 14:33:00 85 mm[Hg] Unive rsity of [facility] Heart rate 2022-04-23 14:33:00 77 /min [facility] Respiratory rate 2022-04-23 14:33:00 18 /min [facility] [place] [facility] Body height 2022-04-23 14:33:00 157.5 cm [facility] [place] [facility] Body weight 2022-04-23 14:33:00 85.276 kg [facility] [place] [facility] BMI 2022-04-23 14:33:00 34.39 kg/m2 [facility] Systolic blood 2022-04-10 20:23:00 149 mm[Hg] [facility]ity of [facility] Diastolic blood 2022-04-10 20:23:00 86 mm[Hg] Unive rsity of [facility] Heart rate 2022-04-10 20:23:00 84 /min [facility] Body height 2022-04-10 20:14:00 157.5 cm [facility] Body weight 2022-04-10 20:14:00 85.186 kg [facility] BMI 2022-04-10 20:14:00 34.35 kg/m2 [facility] Body Temperature 2019-02-24 19:15:00 98.0 [degF] [facility] [place] Heart Rate 2019-02-24 19:15:00 94 /min [facility] [place] Respiratory rate 2019-02-24 19:15:00 20 /min [facility] [place] BP Systolic 2019-02-24 19:15:00 134 mm[Hg] [facility] [place] BP Diastolic 2019-02-24 19:15:00 71 mm[Hg] [facility] [place] Heart Rate 2019-02-24 18:32:00 94 /min [facility] [place] Respiratory rate 2019-02-24 18:32:00 20 /min [facility] [place] BP Systolic 2019-02-24 18:32:00 134 mm[Hg] [facility] [place] BP Diastolic 2019-02-24 18:32:00 71 mm[Hg] [facility] [place] Weight 2019-02-24 18:32:00 180 [lb_av] [facility] [place] BMI (Body Mass 2019-02-24 18:32:00 32.9 kg/m2 [facility] Health Index) Procedures Procedure Date / Time Performing Clinician Source Performed EXTERNAL PROVIDER RECORDS 2022-06-06 05:01:00 Doctor Sarmad [facility] ASSIGNMENT OF BENEFITS 2022-06-05 16:10:34 Doctor Sarmad, [facility] XR CHEST 2 VW 2022-06-03 15:31:39 Garcia Heath [facility] Medical Branch ASSIGNMENT OF BENEFITS 2022-06-03 14:39:37 Doctor Sarmad [facility] INSURANCE CORRESPONDENCE 2022-05-17 05:01:00 Doctor Bañuelos [facility] RAPID INFLUENZA A/B 2022-05-07 22:58:00 Marylou Soria [facility] Medical Branch COVID-19 (ID NOW RAPID 2022-05-07 22:58:00 Marylou Soria [facility] TESTING) Medical Branch DSU PRE-OP 2022-05-06 06:01:00 Doctor Bañuelos [facility] [facility] ASSIGNMENT OF BENEFITS 2022-04-10 20:09:33 Doctor Sarmad, [facility] INSURANCE CORRESPONDENCE 2021-05-12 06:01:00 Doctor Bañuelos [facility] Plan of Care Planned Activity Planned Date Details Comments Source Future Scheduled Test 2022-06-06 Screening for [facility] 22:09:49 malignant neoplasm of Hospit al cervix (procedure) [code = 402905499] Future Scheduled Test 2022-06-06 BREAST CANCER [facility] 22:09:49 SCREENING [code = Hospital BREAST CANCER SCREENING] Future Scheduled Test 2022-06-06 COLONOSCOPY SCREENING [facility] 22:09:49 [code = COLONOSCOPY Hospital SCREENING] Future Scheduled Test 2022-06-06 SHINGLES VACCINES (1 [facility] 22:09:49 of 2) [code = SHINGLES Hospi angel VACCINES (1 of 2)] Future Scheduled Test 2022-06-06 COVID-19 VACCINE (3 - [facility] 22:09:49 Booster for Pfizer Hospital series) [code = COVID-19 VACCINE (3 - Booster for Pfizer series)] Future Scheduled Test 2022-06-06 INFLUENZA VACCINE M ethodist 22:09:49 [code = INFLUENZA Hospital VACCINE] Future Scheduled Test 2022-04-16 COVID-19 VACCINE (#1) [facility] 10:44:07 [code = COVID-19 Hospital VACCINE (#1)] Future Scheduled Test 2022-04-16 Pneumococcal Vaccine: [facility] 10:44:07 Pediatrics (0 to 5 Hospital Years) and At-Risk Patients (6 to 64 Years) (1 - PCV) [code = Pneumococcal Vaccine: Pediatrics (0 to 5 Years) and At-Risk Patients (6 to 64 Years) (1 - PCV)] Future Scheduled Test 2022-04-16 Hepatitis C screening [facility] 10:44:07 (procedure) [code = Hospital 735550131] Future Scheduled Test 2022-04-16 Screening for [facility] 10:44:07 malignant neoplasm of Hospit al cervix (procedure) [code = 641237841] Future Scheduled Test 2022-04-16 BREAST CANCER [facility] 10:44:07 SCREENING [code = Hospital BREAST CANCER SCREENING] Future Scheduled Test 2022-04-16 COLONOSCOPY SCREENING [facility] 10:44:07 [code = COLONOSCOPY Hospital SCREENING] Future Scheduled Test 2022-04-16 SHINGLES VACCINES (1 [facility] 10:44:07 of 2) [code = SHINGLES Hospi angel VACCINES (1 of 2)] Future Scheduled Test 2022-04-16 INFLUENZA VACCINE M ethodist 10:44:07 [code = INFLUENZA Hospital VACCINE] Future Scheduled Test 2022-03-28 COVID-19 VACCINE (#1) [facility] 06:17:38 [code = COVID-19 Hospital VACCINE (#1)] Future Scheduled Test 2022-03-28 Pneumococcal Vaccine: [facility] 06:17:38 Pediatrics (0 to 5 Hospital Years) and At-Risk Patients (6 to 64 Years) (1 - PCV) [code = Pneumococcal Vaccine: Pediatrics (0 to 5 Years) and At-Risk Patients (6 to 64 Years) (1 - PCV)] Future Scheduled Test 2022-03-28 Hepatitis C screening [facility] 06:17:38 (procedure) [code = Hospital 690201922] Future Scheduled Test 2022-03-28 Screening for [facility] 06:17:38 malignant neoplasm of Hospit al cervix (procedure) [code = 541293882] Future Scheduled Test 2022-03-28 BREAST CANCER [facility] 06:17:38 SCREENING [code = Hospital BREAST CANCER SCREENING] Future Scheduled Test 2022-03-28 COLONOSCOPY SCREENING [facility] 06:17:38 [code = COLONOSCOPY Hospital SCREENING] Future Scheduled Test 2022-03-28 SHINGLES VACCINES (1 [facility] 06:17:38 of 2) [code = SHINGLES Hospi angel VACCINES (1 of 2)] Future Scheduled Test 2022-03-28 INFLUENZA VACCINE M ethodist 06:17:38 [code = INFLUENZA Hospital VACCINE] Future Scheduled Test 2022-02-21 COVID-19 VACCINE (#1) [facility] 20:21:57 [code = COVID-19 Hospital VACCINE (#1)] Future Scheduled Test 2022-02-21 Pneumococcal Vaccine: [facility] 20:21:57 Pediatrics (0 to 5 Hospital Years) and At-Risk Patients (6 to 64 Years) (1 - PCV) [code = Pneumococcal Vaccine: Pediatrics (0 to 5 Years) and At-Risk Patients (6 to 64 Years) (1 - PCV)] Future Scheduled Test 2022-02-21 Hepatitis C screening [facility] 20:21:57 (procedure) [code = Hospital [id number]] Future Scheduled Test 2022-02-21 Screening for [facility] 20:21:57 malignant neoplasm of Hospit al cervix (procedure) [code = 068528047] Future Scheduled Test 2022-02-21 BREAST CANCER [facility] 20:21:57 SCREENING [code = Hospital BREAST CANCER SCREENING] Future Scheduled Test 2022-02-21 COLONOSCOPY SCREENING [facility] 20:21:57 [code = COLONOSCOPY Hospital SCREENING] Future Scheduled Test 2022-02-21 SHINGLES VACCINES (1 [facility] 20:21:57 of 2) [code = SHINGLES Hospi angel VACCINES (1 of 2)] Future Scheduled Test 2022-02-21 INFLUENZA VACCINE [facility]ist 20:21:57 [code = INFLUENZA Hospital VACCINE] Future Scheduled Test 2021-10-31 HEPATITIS B VACCINES [facility] 12:20:25 (1 of 3 - 3-dose Hospital series) [code = HEPATITIS B VACCINES (1 of 3 - 3-dose series)] Future Scheduled Test 2021-10-31 COVID-19 VACCINE (#1) [facility] 12:20:25 [code = COVID-19 Hospital VACCINE (#1)] Future Scheduled Test 2021-10-31 Pneumococcal Vaccine: [facility] 12:20:25 Pediatrics (0 to 5 Hospital Years) and At-Risk Patients (6 to 64 Years) (1 - PCV) [code = Pneumococcal Vaccine: Pediatrics (0 to 5 Years) and At-Risk Patients (6 to 64 Years) (1 - PCV)] Future Scheduled Test 2021-10-31 Hepatitis C screening [facility] 12:20:25 (procedure) [code = Hospital 605522477] Future Scheduled Test 2021-10-31 Screening for [facility] 12:20:25 malignant neoplasm of Hospit al cervix (procedure) [code = 922001344] Future Scheduled Test 2021-10-31 BREAST CANCER [facility] 12:20:25 SCREENING [code = Hospital BREAST CANCER SCREENING] Future Scheduled Test 2021-10-31 COLONOSCOPY SCREENING [facility] 12:20:25 [code = COLONOSCOPY Hospital SCREENING] Future Scheduled Test 2021-10-31 SHINGLES VACCINES (1 [facility] 12:20:25 of 2) [code = SHINGLES Hospi angel VACCINES (1 of 2)] Future Scheduled Test 2021-10-31 INFLUENZA VACCINE M ethodist 12:20:25 [code = INFLUENZA Hospital VACCINE] Future Scheduled Test 2021-10-25 HEPATITIS B VACCINES [facility] 09:31:21 (1 of 3 - 3-dose Hospital series) [code = HEPATITIS B VACCINES (1 of 3 - 3-dose series)] Future Scheduled Test 2021-10-25 COVID-19 VACCINE (#1) [facility] 09:31:21 [code = COVID-19 Hospital VACCINE (#1)] Future Scheduled Test 2021-10-25 Pneumococcal Vaccine: [facility] 09:31:21 Pediatrics (0 to 5 Hospital Years) and At-Risk Patients (6 to 64 Years) (1 - PCV) [code = Pneumococcal Vaccine: Pediatrics (0 to 5 Years) and At-Risk Patients (6 to 64 Years) (1 - PCV)] Future Scheduled Test 2021-10-25 Hepatitis C screening [facility] 09:31:21 (procedure) [code = Hospital 412320731] Future Scheduled Test 2021-10-25 Screening for [facility] 09:31:21 malignant neoplasm of Hospit al cervix (procedure) [code = 838950181] Future Scheduled Test 2021-10-25 BREAST CANCER [facility] 09:31:21 SCREENING [code = Hospital BREAST CANCER SCREENING] Future Scheduled Test 2021-10-25 COLONOSCOPY SCREENING [facility] 09:31:21 [code = COLONOSCOPY Hospital SCREENING] Future Scheduled Test 2021-10-25 SHINGLES VACCINES (1 [facility] 09:31:21 of 2) [code = SHINGLES Hospi angel VACCINES (1 of 2)] Future Scheduled Test 2021-10-25 INFLUENZA VACCINE M ethodist 09:31:21 [code = INFLUENZA Hospital VACCINE] Future Scheduled Test Streptococcus pyogenes [facility] culture [code = LIVE HCIS 93443-8] Goal Patient referral [code [facility] = 8266620 ] LIVE HCIS Instructions [facility] [place] [place] Problems LIVE HCIS Instructions [facility] [place] [place] Problems (DC) LIVE HCIS Encounters Start End Encounter Admission Attending Care Care Encounter Source Date/Time Date/Time Type Type Clinicians Facility Department ID 2022-06-18 Outpatient Issa [facility] [id number] Univers 16:07:07 [facility] 2022-05-28 Outpatient Issa [facility] [id number] Univers 15:05:28 [facility] 2021-04-05 Outpatient Issa [facility] [id number] Univers 13:48:24 [facility] 2021-03-14 Outpatient Issa [facility] [id number] Univers 11:49:06 [facility] 2020-12-30 Emergency [facility] [id number] Univers 16:14:45 ity of [facility] 2020-12-30 Emergency [facility] [id number] Univers 05:54:41 ity [facility] 2022-06-24 2022-06-24 Outpatient Issa BAL [facility] [id number] Univers 13:45:00 13:45:00 DANIEL itestefania [facility] 2022-06-20 2022-06-20 [facility] [id number] Univers 00:00:00 00:00:00 Garcia Mandujano HEALTH [id number] it y of [place] [id number] Bill as CHRISTINA?BLEA [id number] Mo berta SHAW [address] [place] [address] OFFICE [facility] 2022-06-19 2022-06-19 [facility]phone [facility] [id number] Univers 00:00:00 00:00:00 Garcia Mandujano HEALTH [id number] it y of [place] [id number] Bill as CHRISTINA?BLEA [id number] Mo berta SHAW [address] [place] [address] OFFICE [facility] 2022-06-17 2022-06-17 Telephone [facility] [id number] Univers 00:00:00 00:00:00 Garcia Mandujano HEALTH [id number] it y of [place] [id number] Bill as CHRISTINA?BLEA [phone] Mo berta SHAW [address] [place] [address] MEDICAL OFFICE [facility] 2022-06-13 2022-06-13 Outpatient Issa BAL [facility] [id number] Univers 08:15:00 08:15:00 DANIEL odell [facility] 2022-06-06 2022-06-06 [facility]phone [facility] [id number] Univers 00:00:00 00:00:00 Daniel De La Paz HEALTH [id number] it y of [place] [id number] Bill as CHRISTINA?BLEA [phone] Mo breta SHAW [address] [facility] 2022-06-06 2022-06-06 Orders Doctor YOLIS [id number] Univers 00:00:00 00:00:00 Only Unassigned, TIN 350.1.13.10 ity of [facility] 4.2.7.2.686 Bill as [phone] [address] 2022-06-05 2022-06-05 Laboratory Only, Adc Test [facility] 1.2.840. 114 [id number] Univers 09:30:00 09:45:00 Only Garcia Heath 350.1.13.10 ity of [facility] [place] 4.2.7.2.[place] [id number] [address] 2022-06-05 2022-06-05 Outpatient R KUMAR [facility] [id number] Univers 09:30:00 09:30:00 GARCIA ity [facility] 2022-06-05 2022-06-05 Orders Doctor YOLIS 1.2.840.114 [id number] Univers 00:00:00 00:00:00 Only Unassigned, [place] 350.1.13.10 ity of [facility] 4.2.7.2.686 Bill as [phone] [address] 2022-06-05 2022-06-05 Telephone Kumar [facility] 1.2.840.114 10 [id number] Univers 00:00:00 00:00:00 Garcia Mandujano [facility] 350.1.13.10 it y of [place] 4.2.7.2.686 Bill as CHRISTINA?BLEA [phone] Mo berta FALL 198 [facility] 2022-06-03 2022-06-03 Lithographic Platemaker Roman, Adc Lab Main [facility] 1.2.8 40.114 [id number] Univers 09:45:00 10:00:00 Visit Garcia Heath 350.1.13.10 ity of [facility] [place] 4.2.7.2.686 [place] [facility] [phone] Mo berta [facility] 353 [facility] 2022-06-03 2022-06-03 Outpatient R KUMAR [facility] [id number] Univers 09:52:23 09:52:23 GARCIA ity of [facility] 2022-06-03 2022-06-03 [facility] 1.2.840.114 [id number] Univers 09:52:23 09:52:23 Encounter Garcia Nazia TABITHA 350.1.13.10 ity of [facility] [place] 4.2.7.2.686 [place] [facility] [phone] [facility] [address] 2022-06-03 2022-06-03 Orders Doctor YOLIS 1.2.840.114 [id number] Univers 00:00:00 00:00:00 Only Unassigned, [place] 350.1.13.10 ity of [facility] 4.2.7.2.686 Bill as [phone] [address] 2022-05-28 2022-05-28 [facility] 1.2.840.114 10 [id number] Univers 00:00:00 00:00:00 Garcia L [facility] 350.1.13.10 it y of [place] 4.2.7.2.686 Bill as CHRISTINA?BLEA [phone] [address] MEDICAL OFFICE BUILDING 2022-05-23 2022-05-23 Outpatient R [facility] [id number] Univers 08:30:00 08:30:00 DANIEL ity [facility] 2022-05-21 2022-05-21 Outpatient R [facility] [id number] Univers 09:20:00 09:20:00 FERNANDO ity o f [facility] 2022-05-21 2022-05-21 Outpatient R [facility] [id number] Univers 08:40:00 08:40:00 NGA ity [facility] 2022-05-17 2022-05-17 Orders Doctor YOLIS 1.2.840.114 [id number] Univers 00:00:00 00:00:00 Only Unassigned, T[place] 350.1.13.10 ity of [facility] 4.2.7.2.686 Bill as [phone] [address] 2022-05-09 2022-05-09 Outpatient FOG_Brown_B AOSM AOSM 544 4025-20 Traci 00:00:00 00:00:00 Trina [id number] Orth o[facility] 2022-05-09 2022-05-09 Telephone [facility] 1.2.889.022 [id number] Univers 00:00:00 00:00:00 Danile S HEALTH 350.1.13.10 it y of [place] 4.2.7.2.686 Bill as CHRISTINA?BLEA [phone] Me dical KNEY 198 [facility] OFFICE [facility] 2022-05-08 2022-05-08 Telephone [facility] 1.2.208.104 [id number] Univers 00:00:00 00:00:00 Daniel S HEALTH 350.1.13.10 it y of [place] 4.2.7.2.686 Bill as CHRISTINA?BLEA [phone] Mo dical KNELVIN 198 [facility] 2022-05-08 2022-05-08 Telephone [facility] 1.2.840.114 10 [id number] Univers 00:00:00 00:00:00 Garcia L HEALTH 350.1.13.10 it y of [place] 4.2.7.2.686 Bill as CHRISTINA?BLEA [phone] Mo dical COLIN 198 [facility] 2022-05-07 2022-05-07 Emergency X [facility] ERT [id number] Univers 16:23:00 18:51:00 MARYLOU ity of [facility] 2022-05-07 2022-05-[address] [facility] 1.2.691.287 [id number] Univers 16:23:00 18:51:00 Marylou S [place] 350.1.13.10 i ty of [facility] [place] 4.2.7.2.686 [place] [phone] [facility] [address] 2022-05-07 2022-05-07 Prep For [facility] 1.2.840.114 [id number] Univers 00:00:00 00:00:00 Surgery Daniel S HEALTH 350.1.13.10 it y of [place] 4.2.7.2.686 Bill as CHRISTINA?BLEA [phone] Mo berta SHAW 198 [facility] OFFICE [facility] 2022-05-06 2022-05-06 Orders Doctor YOLIS 1.2.840.114 [id number] Univers 00:00:00 00:00:00 Only Unassigned, TIN 350.1.13.10 ity of [place] [facility] 4.2.7.2.686 Bill as [id number] [address] 2022-05-02 2022-05-02 Office [facility] 1.2.840.114 [id number] Univers 11:15:00 11:30:00 Visit Daniel [facility] 350.1.13.10 it y of [place] 4.2.7.2.686 Bill as CHRISTINA?BLEA [phone] Mo berta SHAW 198 [facility] 2022-05-02 2022-05-02 Outpatient R [facility] [id number] Univers 11:15:00 11:12:40 DANIEL ity of [facility] 2022-04-25 2022-04-25 Telephone [facility] 1.2.840.114 10 [id number] Univers 00:00:00 00:00:00 [facility] [employer] (Z[employer]) 350.1.13.10 it y of [place] 4.2.7.2.686 Bill as CHRISTINA?BLEA [phone] Mo berta [address] 2022-04-23 2022-04-23 Outpatient R KARLA [facility] [id number] Univers 08:40:00 13:00:21 NGA ity of [facility] 2022-04-23 2022-04-23 Office [facility] 1.2.840.114 [id number] Univers 08:40:00 09:20:00 Visit Nga Nazia TABITHA 350.1.13.10 i ty of [place] 4.2.7.2.686 [place] [phone] Mo inocenciocholo SAENZ 059 [facility] 2022-04-16 2022-04-16 Telephone [facility] 1.2.840.114 10 [id number] Univers 00:00:00 00:00:00 Garcia L HEALTH 350.1.13.10 it y of [place] 4.2.7.2.686 Bill as CHRISTINA?BLEA [phone] Me diccholo SHAW [address] [place] [address] 2022-04-10 2022-04-10 Outpatient R [facility] [id number] Univers 14:45:00 15:18:38 GARCIA odell [facility] 2022-04-10 2022-04-10 Office [facility] 1.2.824.395 [id number] Univers 14:45:00 15:18:38 Visit Garcia Mandujano [facility] 350.1.13.10 it y of [place] 4.2.7.2.686 Bill as CHRISTINA?BLEA [phone] Me diccholo SHAW [address] [place] [address] 2022-04-10 2022-04-10 Orders Doctor YOLIS 1.2.840.114 [id number] Univers 00:00:00 00:00:00 Only Unassigned, T[place] 350.1.13.10 ity of [place] [facility] 4.2.7.2.686 Bill as [phone] [address] 2022-04-08 2022-04-08 Outpatient R [facility] [id number] Univers 14:00:00 14:00:00 GARCIA estefania [facility] 2021-12-27 2021-12-27 Outpatient R [facility] [id number] Univers 08:30:00 08:30:00 GARCIA estefania [facility] 2021-12-24 2021-12-24 Outpatient R [facility] [id number] Univers 14:45:00 14:45:00 DANIEL itestefania [facility] 2021-12-19 2021-12-19 Telephone [facility] 1.2.840.114 [id number] Univers 00:00:00 00:00:00 Garcia Mandujano TABITHA 350.1.13.10 i ty of [place] 4.2.7.2.686 [place] [phone] Me berta SAENZ [address] [place] [address] 2021-11-25 2021-11-25 Outpatient FOG_Brown_B AOSM AOSM 544 4025-20 Traci 00:00:00 00:00:00 arrett_MD [id number] [facility] 2021-11-14 2021-11-14 Outpatient FOG_Brown_B AOSM AOSM 544 4025-20 Traci 00:00:00 00:00:00 Trina [id number] Orth [facility] 2021-11-11 2021-11-11 Outpatient FOG_Brown_B AOSM AOSM 544 4025-20 Traci 00:00:00 00:00:00 Trina [id number] Orth ope dic Sports Medicin [facility] 2021-08-31 2021-08-31 [facility] 1.2.840.114 [id number] Univers 00:00:00 00:00:00 [facility] 350.1.13.10 it y of [place] 4.2.7.2.686 Bill as CHRISTINA?BLEA [phone] Mo dical KN 198 [facility] 2021-07-23 2021-07-23 [facility] 1.2.082.761 [id number] Univers 00:00:00 00:00:00 [facility] 350.1.13.10 it y of [place] 4.2.7.2.686 Bill as CHRISTINA?BLEA [phone] Mo dical KN 198 [facility] 2021-06-06 2021-06-06 Outpatient FOG_Brown_B AOSM AOSM 544 4025-20 Traci 10:52:00 10:52:00 Trina [id number] Orth o[facility] dic [facility] 2021-06-06 2021-06-06 Outpatient FOG_Brown_B AOSM AOSM 544 4025-20 Traci 10:52:00 10:52:00 Trina [id number] Orth ope dic [facility] 2021-06-06 2021-06-06 Outpatient FOG_Brown_B AOSM AOSM 544 4025-20 Traci 00:00:00 00:00:00 Trina [id number] [facility] 2021-05-15 2021-05-15 Colette [facility] 1.2.840.114 91 [id number] Univers 00:00:00 00:00:00 Garcia Mandujano [employer] (Z[employer]) 350.1.13.10 it y of [place] 4.2.7.2.686 Bill as CHRISTINA?BLEA [phone] Mo berta SHAW [address] MEDICAL OFFICE [facility] 2021-05-12 2021-05-12 Orders Doctor YOLIS 1.2.840.114 [id number] Univers 00:00:00 00:00:00 Only Unassigned, TIN 350.1.13.10 ity of [place] [facility] 4.2.7.2.686 Bill as [id number] [address] 2021-05-11 2021-05-11 Outpatient R MALLY [facility] [id number] Univers 10:45:00 10:45:00 DANIEL [facility] 2021-05-11 2021-05-11 Telephone [facility] 1.2.840.114 [id number] Univers 00:00:00 00:00:00 Garcia [employer] (Z[employer]) 350.1.13.10 it y of [place] 4.2.7.2.686 Bill as CHRISTINA?BLEA [phone] Mo berta SHAW [address] [place] [address] OFFICE [facility] 2021-05-08 2021-05-08 Telephone [facility] 1.2.840.114 [id number] Univers 00:00:00 00:00:00 Garcia Mandujano [employer] (Z[employer]) 350.1.13.10 it y of [place] 4.2.7.2.686 Bill as CHRISTINA?BLEA [phone] Mo berta SHAW [address] [place] [address] OFFICE [facility] 2021-05-07 2021-05-07 Telephone [facility] 1.2.840.114 91 [id number] Univers 00:00:00 00:00:00 Garcia Mandujano HEALTH 350.1.13.10 it y of [place] 4.2.7.2.686 Bill as CHRISTINA?BLEA [phone] Mo berta SHAW [address] [place] [address] OFFICE [facility] 2021-04-27 2021-04-27 Outpatient R [facility] [id number] Univers 09:00:00 09:00:00 GARCIA [facility] 2021-04-272021-04-27 Outpatient R KUMAR [facility] [id number] Univers 00:00:00 00:00:00 GARCIA odell [facility] 2021-04-23 2021-04-23 Outpatient R MALLY [facility] [id number] Univers 13:30:00 13:30:00 DANIELTHEODORE odell [facility] 2021-04-20 2021-04-20 Outpatient R [facility] [id number] Univers 00:00:00 00:00:00 GARCIA odell [facility] 2021-04-20 2021-04-20 [facility] 1.2.840.114 [id number] Univers 00:00:00 00:00:00 Garcia Mandujano HEALTH 350.1.13.10 it y of [place] 4.2.7.2.686 Bill as CHRISTINA?BLEA [phone] Mo berta SHAW [address] [place] [address] OFFICE [facility] 2021-04-17 2021-04-17 Telephone [facility] 1.2.840.114 91 [id number] Univers 00:00:00 00:00:00 Garcia Mandujano HEALTH 350.1.13.10 it y of [place] 4.2.7.2.686 Bill as CHRISTINA?BLEA [phone] Mo berta SHAW [address] [place] [address] OFFICE [facility] 2021-04-17 2021-04-17 Telephone [facility] 1.2.840.114 91 [id number] Univers 00:00:00 00:00:00 Garcia Mandujano HEALTH 350.1.13.10 it y of [place] 4.2.7.2.686 Bill as CHRISTINA?BLEA [phone] Mo berta SHAW [address] [place] [address] OFFICE [facility] 2021-04-11 2021-04-11 Telephone [facility] 1.2.840.114 91 [id number] Univers 00:00:00 00:00:00 Garcia Mandujano HEALTH 350.1.13.10 it y of [place] 4.2.7.2.686 Bill as CHRISTINA?BLEA [phone] Mo berta SHAW [address] [place] [address] OFFICE [facility] 2021-04-11 2021-04-11 Telephone [facility] 1.2.840.114 91 [id number] Univers 00:00:00 00:00:00 Garcia Mandujano HEALTH 350.1.13.10 it y of [place] 4.2.7.2.686 Bill as CHRISTINA?BLEA [phone] Mo berta SHAW 198 [facility] OFFICE [facility] 2021-04-06 2021-04-06 Outpatient R KUMAR [facility] [id number] Univers 08:15:00 08:15:00 GARCIA itestefania [facility] 2021-04-06 2021-04-06 Telephone [facility] 1.2.902.355 [id number] Univers 00:00:00 00:00:00 Daniel De La Paz HEALTH 350.1.13.10 it y of [place] 4.2.7.2.686 Bill as CHRISTINA?BLEA [phone] Mo berta [address] 2021-04-05 2021-04-05 Outpatient R [facility] [id number] Univers 13:15:00 13:43:22 [facility] 2021-04-05 Office [facility] 1.2.840.114 [id number] Univers 13:15:00 13:30:00 Visit Daniel De La Paz HEALTH 350.1.13.10 it y of [place] 4.2.7.2.686 Bill as CHRISTINA?BLEA [phone] Mo inocenciocholo SHAW [address] [place] [address] 2021-04-05 2021-04-05 Outpatient R MALLY [facility] [id number] Univers 13:15:00 13:15:00 DANIEL ity [facility] 2021-04-05 2021-04-05 Letter Doctor LAGOS 1.2.840.114 [id number] Univers 00:00:00 00:00:00 (Out) Unassigned, [place] 350.1.13.10 ity of [facility] 4.2.7.2.686 Bill as [phone] [address] 2021-04-05 2021-04-05 Letter Doctor LAGOS 1.2.840.114 [id number] Univers 00:00:00 00:00:00 (Out) Unassigned, TIN 350.1.13.10 ity of [facility] 4.2.7.2.686 Bill as [id number] [facility] [address] 2021-04-03 2021-04-03 Outpatient R MALLY [facility] [id number] Univers 13:00:00 13:00:00 DANIEL ity [facility] 2021-04-02 2021-04-02 Outpatient R [facility] [id number] Univers 10:30:00 10:30:00 SENDIL ity [facility] 2021-04-02 2021-04-02 Outpatient R BASSEM [facility] [id number] Univers 10:30:00 10:30:00 SENDIL [facility] 2021-03-29 2021-03-29 Outpatient R [facility] [id number] Univers 13:00:00 13:00:00 GARCIA [facility] 2021-03-29 2021-03-29 Refill [facility] 1.2.867.035 [id number] Univers 00:00:00 00:00:00 [facility] 350.1.13.10 it y of [place] 4.2.7.2.686 Bill as CHRISTINA?BLEA [phone] [address] MEDICAL OFFICE [facility] 2021-03-29 2021-03-29 Telephone [facility] 1.2.840.114 [id number] Univers 00:00:00 00:00:00 [facility] 350.1.13.10 it y of [place] 4.2.7.2.686 Bill as CHRISTINA?BLEA [phone] [address] MEDICAL OFFICE [facility] 2021-03-28 2021-03-28 Orders Doctor YOLIS 1.2.840.114 [id number] Univers 00:00:00 00:00:00 Only Unassigned, TIN 350.1.13.10 ity of [facility] 4.2.7.2.686 Bill as [phone] [facility] [address] 2021-03-23 2021-03-23 Outpatient [facility] [id number] Univers 11:30:00 11:30:00 GARCIA odell [facility] 2021-03-20 2021-03-20 Orders Doctor YOLIS 1.2.840.114 [id number] Univers 00:00:00 00:00:00 Only Unassigned, TIN 350.1.13.10 ity of [facility] 4.2.7.2.686 Bill as [phone] [address] 2021-03-16 2021-03-16 Telephone [facility] 1.2.840.114 [id number] Univers 00:00:00 00:00:00 Garcia Mandujano [employer] (ZEEP) 350.1.13.10 it y of [place] 4.2.7.2.686 Bill as CHRISTINA?BLEA [phone] [address] MEDICAL OFFICE [facility] 2021-03-15 2021-03-15 Outpatient [facility] [id number] Univers 13:00:00 13:00:00 GARCIA odell [facility] 2021-03-09 2021-03-09 Prep For [facility] 1.2.840.114 [id number] Univers 00:00:00 00:00:00 Surgery Garcia Mandujano [employer] (Z[employer]) 350.1.13.10 it y of [place] 4.2.7.2.686 Bill as CHRISTINA?BLEA [phone] [address] MEDICAL OFFICE [facility] 2021-03-05 2021-03-05 Outpatient R [facility] [id number] Univers 14:15:00 14:42:32 GARCIA odell [facility] 2021-03-05 2021-03-05 Office [facility] 1.2.432.448 [id number] Univers 14:15:00 14:42:32 Visit [facility] [employer] (ZEEP) 350.1.13.10 it y of [place] 4.2.7.2.686 Bill as CHRISTINA?BLEA [phone] [address] MEDICAL OFFICE [facility] 2021-03-05 2021-03-05 Orders Doctor LAGOS 1.2.840.114 [id number] Univers 00:00:00 00:00:00 Only Unassigned, TIN 350.1.13.10 ity of [facility] 4.2.7.2.686 Bill as [id number] [address] 2021-03-05 2021-03-05 Telephone [facility] 1.2.840.114 [id number] Univers 00:00:00 00:00:00 Garcia [employer] (Z[employer]) 350.1.13.10 it y of [place] 4.2.7.2.686 Bill as CHRISTINA?BLEA [phone] Mo berta SHAW [address] MEDICAL OFFICE [facility] 2021-02-12 2021-02-12 Outpatient [facility] [id number] Univers 13:45:00 13:45:00 GARCIA estefania [facility] 2021-02-01 2021-02-01 Telephone [facility] 1.2.840.114 [id number] Univers 00:00:00 00:00:00 Garcia HEALTH 350.1.13.10 it y of [place] 4.2.7.2.686 Bill as CHRISTINA?BLEA [phone] Mo berta SHAW 198 [facility] OFFICE [facility] 2021-01-29 2021-01-29 Telephone [facility] 1.2.840.114 [id number] Univers 00:00:00 00:00:00 Garcia [employer] ([employer]) 350.1.13.10 it y of [place] 4.2.7.2.686 Bill as CHRISTINA?BLEA [phone] Mo berta SHAW 198 [facility] OFFICE [facility] 2021-01-22 2021-01-22 Telephone [facility] 1.2.536.311 [id number] Univers 00:00:00 00:00:00 Sendil K.HClif [place] 350.1.13.10 ity of [place].2.[place] [phone] Mo berta SAENZ 059 [facility] 2021-01-19 2021-01-19 Outpatient R BASSEM [facility] [id number] Univers 10:00:00 23:59:00 SENDIL ity [facility] 2021-01-19 2021-01-19 [facility] 1.2.840.114 [id number] Univers 09:54:13 23:59:00 Encounter Sendil PilyPedro LU 350.1.13.10 ity [facility] 4.2.7.2.[place] [phone] Mo dichi NAL 843 [facility] 2021-01-19 2021-01-19 Outpatient [facility] [id number] Univers 10:00:00 10:00:00 SENDIL ity [facility] 2021-01-19 2021-01-19 Telephone [facility] 1.2.580.830 [id number] Univers 00:00:00 00:00:00 Fernando LU 350.1.13.10 ity [facility] 4.2.7.2.[place] [phone] [facility] [address] [place] [address] 2021-01-16 2021-01-16 Outpatient R [facility] [id number] Univers 00:00:00 00:00:00 SENDIL ity [facility] 2021-01-16 2021-01-16 Outpatient R [facility] [id number] Univers 00:00:00 00:00:00 SENDIL ity [facility] 2020-12-07 2020-12-07 Telephone [facility] 1.2.821.876 [id number] Univers 00:00:00 00:00:00 Sendil PilyAmaliaClif Lu 350.1.13.10 ity [facility] 4.2.7.2.[place] Profess[place] [phone] [address] 2020-11-02 2020-11-02 Outpatient R [facility] [id number] Univers 00:00:00 00:00:00 SENDIL ity [facility] 2020-10-03 2020-10-03 Outpatient R [facility] [id number] Univers 00:00:00 00:00:00 SENDIL ity [facility] 2020-09-21 2020-09-21 Outpatient R [facility] [id number] Univers 15:30:00 15:32:11 SENDIL ity [facility] 2020-09-21 2020-09-21 Office [facility] 1.2.840.114 [id number] Univers 14:55:58 15:32:11 Visit Sendil Demetri LU 350.1.13.10 ity of [facility] [place].7.2.[place] [phone] Mo diccholo NAL 059 [facility] 2020-09-21 2020-09-21 Office [facility] 1.2.840.114 [id number] Univers 14:55:58 15:32:11 Visit Sendga Demetri LU 350.1.13.10 ity of [place] [phone] Mo inocenciohi NAL [address] [place] [address] 2020-09-21 2020-09-21 Outpatient [facility] [id number] Univers 15:30:00 15:30:00 SENDIL [facility] 2020-07-27 2020-07-27 Outpatient [facility] [id number] Univers 08:04:33 23:59:00 [facility] 2020-07-27 [facility] 1.2.840.114 [id number] Univers 08:04:33 23:59:00 Encounter [facility] [id number] ity of Surgical 4.2.7.2.686 Bill as Specialti [phone] Mo dical es 809 [facility] 2020-07-27 2020-07-27 Office [facility] 1.2.840.114 [id number] Univers 07:51:51 09:06:38 Visit Daniel S Health 350.1.13.10 it y of Surgical 4.2.7.2.686 Bill as Specialti [id number] Mo dical es 198 [facility] 2020-07-27 2020-07-27 Outpatient [facility] [id number] Univers 08:00:00 08:00:00 DANIEL [facility] 2020-07-27 2020-07-27 Telephone [facility] [id number] Univers 00:00:00 00:00:[address] [facility] 350.1.13.10 it y of Surgical 4.2.7.2.686 Bill as Specialti [phone] Mo dical 198 [facility] 2020-07-11 2020-07-11 Outpatient R [facility] [id number] Univers 14:00:00 14:00:00 DANIEL ity of [facility] 2020-03-29 2020-03-29 Orders Doctor YOLIS 1.2.840.114 [id number] Univers 00:00:00 00:00:00 Only Unassigned, [place] 350.1.13.10 ity of [facility] 4.2.7.2.686 Bill as [phone] [address] 2020-03-29 2020-03-29 Orders Doctor LAGOS 1.2.840.114 [id number] 00:00:00 00:00:00 Only Unassigned, [place] 350.1.13.10 [place] [facility] 4.2.7.2.686 [id number] [facility] 2020-03-11 2020-03-11 Emergency Goldman, [facility] 1.2.840.114 [id number] Univers 18:06:00 18:59:00 Nidia Milan 350.1.13.10 i ty of [place] 4.2.7.2.686 [facility] [id number] [address] 2020-03-11 2020-03-11 Emergency Goldman, [facility] 1.2.840.114 [id number] 18:06:00 18:59:00 Nidia Milan 350.1.13.10 [place] 4.2.7.2.686 [place] [phone] [facility] 2020-01-17 2020-01-17 Emergency Goldman, [facility] 1.2.840.114 [id number] Univers 16:55:00 19:20:00 Nidiacherri Lu 350.1.13.10 i ty of [place] 4.2.7.2.686 [facility] [phone] [address] 2020-01-17 2020-01-17 Emergency [facility] 1.2.840.114 [id number] 16:55:00 19:20:00 Nidia Lu 350.1.13.10 [place] 4.2.7.2.686 [place] [id number] [id number] 2019-05-25 2019-05-25 Outpatient SIFF, CARLOS [facility] 2099 [id number] [place] 00:00:00 00:00:[address] 2019-05-25 2019-05-25 Outpatient SIFF, CARLOS [facility] 2099 [id number] [place] 00:00:00 00:00:[address] 2019-05-25 2019-05-25 Outpatient SIFF, CARLOS [facility] 2099 [id number] [place] 00:00:00 00:00:[address] 2019-05-25 2019-05-25 Outpatient SIFF, CARLOS [facility] 2099 [id number] [place] 00:00:00 00:00:[address] 2019-02-24 2019-02-24 Departed [facility] Andrew [id number] [facility] 18:14:00 19:15:[address] 2019-02-24 2019-02-24 Departed [facility] Andrew [id number] 18:14:00 19:15:[address] LIVE [facility] 2019-02-10 2019-02-10 Emergency X [facility] ERT [id number] [facility] 18:48:57 21:06:00 MARYLOU odell of [facility] Results Test Description Test Time Test Comments Results Result Comments Source Throat Streptococcus pyogenes antigen detection 2019-02-24 1 8:38:00 Test Item Value Reference Range Interpretation Comme nts Group A Streptococcus Screen (test code = 40409-8) [facility] [id number] 18:38:00 Test Item Value Reference Range Interpretation Comments Group A Streptococcus Screen (test Negative code = 13584-2)
[2022-06-25] MEDS ORDERED: IPRATROPIUM BROM 0.5MG/2.5ML ONE (08:45)
[2022-06-25] MEDS ORDERED: ALBUTEROL 2.5 MG/3 ML NEB SOL ONE (08:45)
[2022-06-25 08:55] LABS: SARS-CoV-2 Antigen Rapid Res Negative (Negative)
--- NOTE | 2022-06-25 10:06 | RAD REPORT ---
EXAM DESCRIPTION: RADLouist Single View06/25/2022 9:56 am CLINICAL HISTORY: Cough;Congestion COMPARISON: Head Brain Wo Cont dated 06/24/2022; Head angio dated 06/24/2022hest Single View dated ; Chest Pa And Lat (2 Views) dated 06/26/2021; Chest Pa And Lat (2 Views) dated 02/18/2019; [facility] [facility] Pa And Lat (2 Views) dated 02/04/2019 TECHNIQUE: Portable AP view of the chest. FINDINGS: The lungs show no focal consolidation. Small nodular densities in the right mid to lower l ungs are stable and could reflect calcified granulomas. Diffuse increasingly pronounced interstitial thickening and reticulation, could relate to decreased inspiratory effort, or COPD exacerbation. No p neumothorax or effusion. The cardiomediastinal contours are unremarkable. IMPRESSION: No focal airspace opacity. Possible COPD exacerbation.
--- NOTE | 2022-06-25 10:22 | EDPHYS ---
Physician Documentation [facility] Name: Vicky Walker Age: 61 yrs Sex: Female : 1960 Arrival Date: 06/25/2022 Time: 08:19 Bed 13 Private MD: ED Physician Kenton Thompson HPI: 06/25 08:32 This 61 yrs old Female presents to ER via Ambulatory with complaints of Sinus Pain. [facility] 08:32 The patient or guardian reports cough. Onset: The symptoms/episode began/occurred 3 jh7 day(s) ago. Associated signs and symptoms: Pertinent positives: earache, rhinorrhea, sore throat, Pertinent negatives: chest pain, fever, vomiting. 61-year-old female reports sinus pain, congestion, and cough for the past 3 days, worsening since this morning. Reports that she has a surgery on Friday, July 01, and wants to ensure that there is nothing else going on. requesting neb treatment.. Historical: - Allergies: 08:31 PENICILLINS; kc6 08:31 Toradol; kc6 - PMHx: 08:31 Anxiety; Chronic pain; GERD; Hypertension; psoriasis; kc6 - PSHx: 08:31 Cholecystectomy; hysterectomy; kc6 - Immunization history:: Client reports receiving the 2nd dose of the Covid vaccine, Flu vaccine is up to date. - Social history:: Smoking status: Patient reports the use of cigarette tobacco products, smokes one-half pack cigarettes per day. ROS: 08:32 Constitutional: Negative for fever, chills, and weight loss, Eyes: Negative for injury, jh7 pain, redness, and discharge, Neck: Negative for injury, pain, and swelling, Cardiovascular: Negative for chest pain, palpitations, and edema, Respiratory: Negative for shortness of breath, cough, wheezing, and pleuritic chest pain, Abdomen/GI: Negative for abdominal pain, nausea, vomiting, diarrhea, and constipation, MS/Extremity: Negative for injury and deformity, Skin: Negative for injury, rash, and discoloration, Neuro: Negative for headache, weakness, numbness, tingling, and seizure. 08:32 ENT: Positive for ear pain, sinus congestion, sinus pain. 08:32 Respiratory: Positive for cough, Negative for shortness of breath, wheezing. 08:32 All other systems are negative. Exam: 08:32 Constitutional: This is a well developed, well nourished patient who is awake, alert, jh7 and in no acute distress. Head/Face: Normocephalic, atraumatic. Eyes: Pupils equal round and reactive to light, extra-ocular motions intact. Lids and lashes normal. Conjunctiva and sclera are non-icteric and not injected. Cornea within normal limits. Periorbital areas with no swelling, redness, or edema. Neck: Trachea midline, no thyromegaly or masses palpated, and no cervical lymphadenopathy. Supple, full range of motion without nuchal rigidity, or vertebral point tenderness. No Meningismus. Cardiovascular: Regular rate and rhythm with a normal S1 and S2. No gallops, murmurs, or rubs. Normal PMI, no JVD. No pulse deficits. Abdomen/GI: Soft, non-tender, with normal bowel sounds. No distension or tympany. No guarding or rebound. No evidence of tenderness throughout. Back: No spinal tenderness. No costovertebral tenderness. Full range of motion. Skin: Warm, dry with normal turgor. Normal color with no rashes, no lesions, and no evidence of cellulitis. MS/ Extremity: Pulses equal, no cyanosis. Neurovascular intact. Full, normal range of motion. Neuro: Awake and alert, GCS 15, oriented to person, place, time, and situation. Normal gait. 08:32 ENT: TM's: fluid levels, bilaterally, Nose: nasal drainage, and is seen coming from both nares, that is clear, Posterior pharynx: pooling of secretions, that are mild. 08:32 Respiratory: the patient does not display signs of respiratory distress, Respirations: normal, Breath sounds: are clear throughout, hacking cough. Vital Signs: 08:29 BP 134 / 90; Pulse 94; Resp 18 S; Temp 98.5(O); Pulse Ox 96% on R/A; Weight 81.65 kg kc6 (R); Height 5 ft. 2 in. (R); 09:15 BP 118 / 66; Pulse 89; Resp 18 S; Pulse Ox 97% on R/A; 6 08:29 Body Mass Index 32.92 (81.65 kg, 157.48 cm) [facility] MDM: 08:23 Patient medically screened. [facility] 10:20 Differential Diagnosis: Bronchitis Influenza Upper Respiratory Infection Sinusitis [facility] Allergic Rhinitis Viral Syndrome Pneumonia. Data reviewed: vital signs, nurses notes, radiologic studies, plain films. I considered the following discharge prescriptions or medication management in the emergency department Medications were administered in the Emergency Department. See MAR. Independent interpretation of the following test(s) in the Emergency Department X-Ray: My interpretation is no pneumonia. Care significantly affected by the following chronic conditions: Hypertension, Chronic Obstructive Pulmonary Disease. Counseling: I had a detailed discussion with the patient and/or guardian regarding: the historical points, exam findings, and any diagnostic results supporting the discharge/admit diagnosis, to return to the emergency department if symptoms worsen or persist or if there are any questions or concerns that arise at home. Special discussion: I discussed with the patient/guardian that the patient's current presentation does not indicate dosing of antibiotics. They should follow-up with their primary care provider and return if the symptoms persist or progress. 06/25 08:31 Order name: SARS RAPID; Complete Time: 09:02 [facility] 06/25 08:31 Order name: Flu; Complete Time: 09:02 [facility] 06/25 08:31 Order name: XRAY Chest (1 view); Complete Time: 10:14 [facility] Administered Medications: 08:43 Drug: DuoNeb Nebulize (3:1) (2.5 mg - 0.5 mg) 3 ml Route: Nebulizer; kc6 Disposition: 15:00 Co-signature as Attending Physician, Kenton Thompson DO I was immediately available on-site ms3 in the Emergency Department for consultation in the care of the patient. Disposition Summary: 06/25/22 10:22 Discharge Ordered Location: Home [facility] Problem: new [facility] Symptoms: have improved [facility] Condition: Stable [facility] Diagnosis - Acute upper respiratory infection, unspecified [facility] Followup: [facility] - With: Private Physician - When: 2 - 3 days - Reason: Recheck today's complaints Discharge Instructions: - Discharge Summary Sheet [facility] - Upper Respiratory Infection, Adult [facility] - Viral Respiratory Infection [facility] Forms: - Medication Reconciliation Form [facility] - Thank You Letter [facility] - Antibiotic Education [facility] Prescriptions: - promethazine-DM 6.25-15 mg/5 mL Oral syrup - administer 10 milliliter by ORAL route every 6 hours As needed as needed for [facility] cough; 240 milliliter; Refills: 0, Product Selection Permitted - Tessalon Perles 100 mg Oral Capsule - take 1 capsule by ORAL route every 8 hours As needed; 15 capsule; Refills: 0, jh7 Product Selection Permitted Signatures: Dispatcher [employer] EDKenton Frankel DO DO ms3 Madison Ferrera, CANCER SPEC CANCER SPEC jh7 Patricia Ventura, RN RN kc6 Corrections: (The following items were deleted from the chart) 08:38 08:32 61-year-old female reports sinus pain, congestion, and cough for the past 3 days, jh7 worsening since this morning. Reports that she has a surgery on Friday, July 01, and wants to ensure that there is nothing else going on.. jh7
--- NOTE | 2022-06-25 10:22 | ER ---
Nurse's Notes [facility] Name: Vicky Walker Age: 61 yrs Sex: Female : 1960 Arrival Date: 06/25/2022 Time: 08:19 Bed 13 Private MD: Diagnosis: Acute upper respiratory infection, unspecified Presentation: 06/25 08:29 Chief complaint: Patient states: nasal drainage/congestion for a few days now. woke up kc6 this morning and was having trouble breathing her nose. Coronavirus screen: Vaccine status: Patient reports receiving the 2nd dose of the covid vaccine. At this time, the client does not indicate any symptoms associated with coronavirus-19. Ebola Screen: No symptoms or risks identified at this time. Initial Sepsis Screen: Does the patient meet any 2 criteria? No. Patient's initial sepsis screen is negative. Does the patient have a suspected source of infection? No. Patient's initial sepsis screen is negative. Risk Assessment: Do you want to hurt yourself or someone else? Patient reports no desire to harm self or others. Onset of symptoms was June 25, 2022. 08:29 Method Of Arrival: Ambulatory [facility] 08:29 Acuity: PIYUSH 3 kc6 Triage Assessment: 08:31 Headache History: Denies prior headaches. General: Appears in no apparent distress. kc6 comfortable, Behavior is calm, cooperative, appropriate for age. Pain: Denies pain. EENT: Reports nasal congestion. Neuro: Barragan Agitation-Sedation Scale (RASS): 0 - Alert and Calm Level of Consciousness is awake, alert, obeys commands, Oriented to person, place, time, situation, Appropriate for age. Cardiovascular: Capillary refill < 3 seconds. Respiratory: Airway is patent Trachea midline Respiratory effort is even, unlabored, Respiratory pattern is regular, symmetrical. GI: No signs and/or symptoms were reported involving the gastrointestinal system. : No signs and/or symptoms were reported regarding the genitourinary system. Derm: No signs and/or symptoms reported regarding the dermatologic system. Skin is intact, Skin is pink, warm \T\ dry. Musculoskeletal: No signs and/or symptoms reported regarding the musculoskeletal system. Circulation, motion, and sensation intact. Capillary refill < 3 seconds, Range of motion: intact in all extremities. Historical: - Allergies: 08:31 PENICILLINS; kc6 08:31 Toradol; kc6 - PMHx: 08:31 Anxiety; Chronic pain; GERD; Hypertension; psoriasis; kc6 - PSHx: 08:31 Cholecystectomy; hysterectomy; kc6 - Immunization history:: Client reports receiving the 2nd dose of the Covid vaccine, Flu vaccine is up to date. - Social history:: Smoking status: Patient reports the use of cigarette tobacco products, smokes one-half pack cigarettes per day. Screenin:32 [facility] ED Fall Risk Assessment (Adult) History of falling in the last 3 months, kc6 including since admission No falls in past 3 months (0 pts) Confusion or Disorientation No (0 pts) Intoxicated or Sedated No (0 pts) Impaired Gait No (0 pts) Mobility Assist Device Used No (0 pt) Altered Elimination No (0 pt) Score/Fall Risk Level 0 - 2 = Low Risk Oriented to surroundings, Maintained a safe environment, Educated pt \T\ family on fall prevention, incl call for assistance when getting out of bed, Assessed \T\ reinforced patient's understanding of fall precautions, Hourly rounding (assess needs \T\ fall precautionary measures) done. Abuse screen: Denies threats or abuse. Denies injuries from another. Nutritional screening: No deficits noted. Tuberculosis screening: No symptoms or risk factors identified. Assessment: 08:29 Reassessment: please see triage assessment. 6 Vital Signs: 08:29 BP 134 / 90; Pulse 94; Resp 18 S; Temp 98.5(O); Pulse Ox 96% on R/A; Weight 81.65 kg kc6 (R); Height 5 ft. 2 in. (R); 09:15 BP 118 / 66; Pulse 89; Resp 18 S; Pulse Ox 97% on R/A; kc6 08:29 Body Mass Index 32.92 (81.65 kg, 157.48 cm) 6 ED Course: 08:22 Patient arrived in ED. rg4 08:23 Madison Ferrera FNP [facility]. jh7 08:23 Kenton Thompson DO is Attending Physician. jh7 08:23 Patricia Ventura, RN is Primary Nurse. kc6 08:31 Triage completed. kc6 08:31 Arm band placed on. kc6 08:32 Patient has correct armband on for positive identification. Bed in low position. Call kc6 light in reach. Side rails up X 1. Adult w/ patient. 09:58 XRAY Chest (1 view) In Process Unspecified. EDMS 10:49 No provider procedures requiring assistance completed. Patient did not have IV access kc6 during this emergency room visit. Administered Medications: 08:43 Drug: DuoNeb Nebulize (3:1) (2.5 mg - 0.5 mg) 3 ml Route: Nebulizer; kc6 Medication: 10:49 VIS not applicable for this client. kc6 Outcome: 10:22 Discharge ordered by . jh7 10:49 Discharged to home ambulatory, with family. kc6 10:49 Condition: stable 10:49 Discharge instructions given to patient, Instructed on discharge instructions, follow up and referral plans. medication usage, Demonstrated understanding of instructions, follow-up care, medications, Prescriptions given X 2. 10:50 Patient left the ED. kc6 Signatures: Dispatcher [employer] EDMS Mony Colvin rg4 Madison Ferrera, VISUAL EDUCATION DIRECTOR VISUAL EDUCATION DIRECTOR 7 Patricia Ventura RN RN kc6 Corrections: (The following items were deleted from the chart) 09:15 08:33 Reassessment: please see triage assessment kc6 kc6
[2022-06-25 10:54] VITALS: TEMP 98.5
[2022-06-25 10:55] VITALS: BP 118/66; O2SAT 97
== END 2022-06-25 10:50 | disposition home or self-care (01) ==
LOC: ER 08:19
DX: J06.9 Acute upper respiratory infection, unspecified (principal); Z20.822 Contact with and (suspected) exposure to COVID-19; F17.210 Nicotine dependence, cigarettes, uncomplicated; I10 Essential (primary) hypertension; Z88.0 Allergy status to penicillin; Z88.5 Allergy status to narcotic agent
CPT/HCPCS: 36415; 87804 ×2; 71045; 94640; 99284; 87811; J7613; J7644

== ENCOUNTER 2022-10-11 10:12 | Emergency (ER) | payer OTHER ==
--- OUTSIDE RECORDS SUMMARY | 2022-10-11 10:27 | XMS REPORT | Continuity of Care Document ---
:1960 Author Organization [facility] t Address [address] [place] [address] Care Team Providers Name Role Phone ADAM ANTUNEZ Primary Care Physician CLOVER HEATH Attending Clinician Unavailable DANIEL BAL Attending Clinician Unavailable Daniel Garner Attending Clinician JUAN RODAS Attending Clinician Unavailable Juan Rodas MD Attending Clinician Clover Heath MD Attending Clinician MELY HIDALGO Attending Clinician Unavailable Mely Araiza Attending Clinician Lab, Ang - Db Attending Clinician Unavailable MARYLOU SORIA Attending Clinician Unavailable Marylou Guzman S Attending Clinician Doctor Unassigned, [place] Attending Clinician Unavailable Only, Adc Test Attending Clinician Unavailable Pob, Adc Lab Main Attending Clinician Unavailable FERNANDO AGUILERA Attending Clinician Unavailable NGA ACOSTA Attending Clinician Unavailable Rd Attending Clinician Unavailable Nga Arias Attending Clinician KORIN LUEVANO K.H. Attending Clinician Unavailable Bassem SANCHEZ, Korin Gandhi.H. Attending Clinician Fernando Aguilera MD Attending Clinician Nidia Vaughn Attending Clinician CARLOS MAYO Attending Clinician Unavailable CLOVER HEATH Admitting Clinician Unavailable JUAN RODAS Admitting Clinician Unavailable MELY HIDALGO Admitting Clinician Unavailable Clover Heath MD Admitting Clinician Rd Admitting Clinician Unavailable MARYLOU SORIA Admitting Clinician Unavailable KORIN LUEVANO K.H. Admitting Clinician Unavailable Payers Payer Name Policy Type Policy Number Effective Date Expiration Date S julio [facility] DUAL [id number] 2022 COMP HMO D SNP 00:00:00 [facility] [id number] 2022 STAR PLUS 00:00:00 [employer] [place] [id number] 2020 CLASSIC/VALUE 00:00:00 MEDICARE PART A \\T\\ [id number] 2011 B 00:00:00 MEDICAID [place] [id number] 2010 00:00:00 [employer]NA (MEDICARE [id number] REPLACEMENT/ADVANTA GE - PPO) [facility] [id number] [facility] (MEDICAID 00:00:00 HMO) [employer] CHOICE [id number] 2021 00:00:00 WELLCARE (MEDICARE [id number] 2021 REPLACEMENT/ADVANTA 00:00:00 GE - PPO) Problems Condition Condition Condition Status Onset Resolution Last Treating Co mments Source Name Details Category Date Date Treatment Clinician Date Primary Primary Disease Active Overview: Univ ers osteoarthr osteoarthr 1-10 Formattin ity of itis of itis of 00:00: g of this [place] right knee right knee 00 note Me dical might be Branch different from the original. Added automatic ally from request for surgery [id number] Fracture, Fracture, Disease Active Met Ezekiel Ocampo, [address] left, left, 00:00: Hospita closed closed 00 l Obesity Obesity Disease Active Univers (BMI (BMI 5-05 ity of 30-39.9) 30-39.9) 00:00: Medical Branch Chest pain Chest pain Disease Active U nivers 5-04 ity of 00:00: [place] [facility] Right foot Right foot Disease [...] 00:00: Health e 00 Penicill Propensi Active Rash Method i ins ty to 8-30 st adverse 00:00: Hospita reaction 00 l s to drug Penicill Propensi Active Unknown - As a [...] 8-30 ity of 00:00: [place] [facility] PENICI Allergy Active Unknown KEN U LLIN AND to 5-24 S DERIVATI substanc 00:00: Health VES* e 00 Social History Social Habit Start Date Stop Date Quantity Comments Source History of tobacco Cigarette Smoker [facility] Exposure to 2022-07-05 2022-07-15 Not sure [facility] SARS-CoV-2 (event) 00:00:00 13:54:00 [facility] Tobacco use and 2022-04-10 2022-04-10 Smokeless Universit y of exposure 00:00:00 00:00:00 tobacco non-user [facility] Alcohol intake 2019-05-25 2019-05-25 0 /d [facility] 00:00:[facility] 00:00:00 Hospital History of Social 2019-05-25 2019-05-[address] function 00:00:00 00:00:00 Hospital Cigarettes smoked 2019-05-25 2019-05-[address] current (pack per 00:00:00 00:00:00 Hospita l day) - Reported Cigarette 2019-05-25 2019-05-25 [facility] pack-years 00:00:00 00:00:00 Hospital Sex Assigned At [birth year] [facility] 00:00:00 00:00:00 Hospital Smoking Status Start Date Stop Date Source Smokes tobacco daily 2022-04-10 00:00:00 [facility] Current Light tobacco 2019-02-24 18:35:00 [facility] smoker Medications Ordered Filled Start Stop Current Ordering Indication Dosage Frequency Signature Comments Components Source Medication Medication Date Date Medication? Clinician (SIG) Name Name pentazocine Yes 4647 1{tbl} Take 1 Un lala -naloxone 7-11 tablet by ity o f 50-0.5 mg 00:00: mouth [place] tablet 00 every 4 Medical (four) Branch hours as needed for Pain. Indication s: acute pain pentazocine Yes 4647 1{tbl} Take 1 Un lala -naloxone 7-11 tablet by ity o f 50-0.5 mg 00:00: mouth [place] tablet 00 every 4 Medical (four) Branch hours as needed for Pain. Indication s: acute pain pentazocine Yes 4647 1{tbl} Take 1 Un lala -naloxone 7-11 tablet by ity o f 50-0.5 mg 00:00: mouth [place] tablet 00 every 4 Medical (four) Branch hours as needed for Pain. Indication s: acute pain HYDROcodone 2022- No 2{tbl} 2 tablet, Univers -acetaminop 6-16 -16 Oral, ity of hen (NORCO 21:00: 21:10 ONCE, 1 [place] 5) 5-325 mg 00 :00 dose, On Medi xavier tablet 2 Fri Branch tablet 08/16/22 at 1600, LESLY ketorolac 2022- No 30mg 30 mg, Unive rs (TORADOL) 08-16 Slow IV ity of injection 19:45: 19:32 Push, ONCE [place] 30 mg 00 :00 NOW, 1 Medical dose, On Branch Fri08/16/22 at 1445, LESLY dexamethaso 2022- No 10mg 10 mg, Uni vers ne sod phos 08-16 Slow IV ity of PF 19:00: 19:32 Push, [place] injection 00 :00 ONCE, 1 Medical 10 mg dose, On Branch Fri08/16/22 at 1400, 1 mL diclofenac 2022-0 Yes [id number] 75mg Take 1 Univers 75 mg EC 6-16 tablet by ity of tablet 00:00: mouth in [place] [address] [facility] morning [place] and 1 tablet in the evening. Take with meals. acetaminoph 2022-0 Yes [id number] 650mg Take 1 Univers en (TYLENOL 6-16 tablet by ity of ARTHRITIS 00:00: mouth [place] PAIN) 650 00 every 8 Medical mg CR (eight) Branch tablet hours as needed for Pain. predniSONE 2022-0 Yes [id number] Take 2 Univers 20 mg 6-16 tablets PO ity of tablet 00:00: daily [address] gabapentin 2022-0 Yes [id number] 100mg Take 1 Univers (NEURONTIN) 6-16 capsule by it y of 100 mg 00:00: mouth in [place] capsule [facility] morning [place] and 1 capsule at noon and 1 capsule in the evening. diclofenac 2022-0 Yes [id number] 75mg Take 1 Univers 75 mg EC 6-16 tablet by ity of tablet 00:00: mouth in [place] [address] [facility] morning [place] and 1 tablet in the evening. Take with meals. acetaminoph 2022-0 Yes [id number] 650mg Take 1 Univers en (TYLENOL 6-16 tablet by ity of ARTHRITIS 00:00: mouth [place] PAIN) 650 00 every 8 Medical mg CR (eight) Branch tablet hours as needed for Pain. predniSONE 2023-0 Yes [id number] Take 2 Univers 20 mg 6-16 tablets PO ity of tablet 00:00: daily [place] [facility] gabapentin 2023-0 Yes [id number] 100mg Take 1 Univers (NEURONTIN) 6-16 capsule by it y of 100 mg 00:00: mouth in [place] capsule 00 the Medical morning Branch and 1 capsule at noon and 1 capsule in the evening. diclofenac 2023-0 Yes [id number] 75mg Take 1 Univers 75 mg EC 6-16 tablet by ity of tablet 00:00: mouth in [place] 00 the Medical morning Branch and 1 tablet in the evening. Take with meals. acetaminoph 2023-0 Yes [id number] 650mg Take 1 Univers en (TYLENOL 6-16 tablet by ity of ARTHRITIS 00:00: mouth [place] PAIN) 650 00 every 8 Medical mg CR (eight) Branch tablet hours as needed for Pain. predniSONE 3-0 Yes [id number] Take 2 Univers 20 mg 6-16 tablets PO ity of tablet 00:00: daily [place] [facility] gabapentin 3-0 Yes [id number] 100mg Take 1 Univers (NEURONTIN) 6-16 capsule by it y of 100 mg 00:00: mouth in [place] capsule 00 the Medical morning Branch and 1 capsule at noon and 1 capsule in the evening. diclofenac 3-0 Yes [id number] 75mg Take 1 Univers 75 mg EC 6-16 tablet by ity of tablet 00:00: mouth in [place] 00 the Medical morning Branch and 1 tablet in the evening. Take with meals. acetaminoph 2023-0 Yes [id number] 650mg Take 1 Univers en (TYLENOL 6-16 tablet by ity of ARTHRITIS 00:00: mouth [place] PAIN) 650 00 every 8 Medical mg CR (eight) Branch tablet hours as needed for Pain. predniSONE 3-0 Yes [id number] Take 2 Univers 20 mg 6-16 tablets PO ity of tablet 00:00: daily [place] [facility] gabapentin 2023-0 Yes [id number] 100mg Take 1 Univers (NEURONTIN) 6-16 capsule by it y of 100 mg 00:00: mouth in [place] capsule 00 the Medical morning Branch and 1 capsule at noon and 1 capsule in the evening. FENTanyl PF 3-0 2023- No 25ug 25 mcg, Un lala (SUBLIMAZE 08-06 Intramuscu it y of (PF)) 23:15: 23:09 lar, ONCE, [place] injection 00 :00 1 dose, On Medi xavier 25 mcg 08/06/22 Branch at 1815, STAT clindamycin 2022- Yes [id number] 300mg Take 1 Univers 300 mg 08-06 capsule by ity of capsule 00:00: 04:59 mouth in [place] 00 :00 [facility] and 1 capsule at noon and 1 capsule in the evening. Do all this for 10 days. sulfamethox 2022- Yes [id number] 1{tbl} Take 1 Univers azole-trime 08-06-17 tablet by it y of thoprim 00:00: 04:59 mouth [place] 800-160 mg 00 :00 every 12 Medic al per tablet (twelve) Branc h hours for 10 days. clindamycin 2022- Yes [id number] 300mg Take 1 Univers 300 mg 08-06 capsule by ity of capsule 00:00: 04:59 mouth in [place] 00 :00 [facility] and 1 capsule at noon and 1 capsule in the evening. Do all this for 10 days. sulfamethox 2022- Yes [id number] 1{tbl} Take 1 Univers azole-trime 08-0617 tablet by it y of thoprim 00:00: 04:59 mouth [place] 800-160 mg 00 :00 every 12 Medic al per tablet (twelve) Branc h hours for 10 days. clindamycin 2022- Yes [id number] 300mg Take 1 Univers 300 mg 08-06 capsule by ity of capsule 00:00: 04:59 mouth in [place] 00 :00 [facility] and 1 capsule at noon and 1 capsule in the evening. Do all this for 10 days. sulfamethox 2022- Yes [id number] 1{tbl} Take 1 Univers azole-trime -08 06-17 tablet by it y of thoprim 00:00: 04:59 mouth [place] 800-160 mg 00 :00 every 12 Medic al per tablet (twelve) Branc h hours for 10 days. clindamycin 2022- Yes [id number] 300mg Take 1 Univers 300 mg 08-06-17 capsule by ity of capsule 00:00: 04:59 mouth in [place] 00 :00 [facility] morning Branch and 1 capsule at noon and 1 capsule in the evening. Do all this for 10 days. sulfamethox 2022- Yes [id number] 1{tbl} Take 1 Univers azole-trime 6-08 06-17 tablet by it y of thoprim 00:00: 04:59 mouth [place] 800-160 mg 00 :00 every 12 Medic al per tablet (twelve) Branc h hours for 10 days. clindamycin 2022- No [id number] 300mg Take 1 Univers 300 mg 08-06- capsule by ity of capsule 00:00: 04:59 mouth in [place] 00 :00 [facility] Branch and 1 capsule at noon and 1 capsule in the evening. Do all this for 10 days. sulfamethox 2022- No [id number] 1{tbl} Take 1 Univers azole-trime -08 06-17 tablet by it y of thoprim 00:00: 04:59 mouth [place] 800-160 mg 00 :00 every 12 Medic al per tablet (twelve) Branc h hours for 10 days. clindamycin 2022- No [id number] 300mg Take 1 Univers 300 mg 08-06- capsule by ity of capsule 00:00: 04:59 mouth in [place] 00 :00 [facility] and 1 capsule at noon and 1 capsule in the evening. Do all this for 10 days. sulfamethox 2022- No [id number] 1{tbl} Take 1 Univers azole-trime -08 06-17 tablet by it y of thoprim 00:00: 04:59 mouth [place] 800-160 mg 00 :00 every 12 Medic al per tablet (twelve) Branc h hours for 10 days. pentazocine 2022- Yes [id number] 1{tbl} Take 1 U nivers -naloxone 5-26 -03 tablet by ity of 50-0.5 mg 00:00: 04:59 mouth [place] tablet 00 :00 every 6 Medical (six) Branch hours as needed for Pain for up to 7 days. Indication s: acute pain traMADoL 50 2022- Yes [id number] 50mg Take 1 Univ ers mg tablet 5-25 tablet by ity o f 00:00: mouth [place] 00 every 4 Medical (four) Branch hours as needed for Pain (scale 7-10). Indication s: acute pain traMADoL 50 2022-0 Yes [id number] 50mg Take 1 Univ ers mg tablet 5-25 tablet by ity o f 00:00: mouth [place] 00 every 4 Medical (four) Branch hours as needed for Pain (scale 7-10). Indication s: acute pain traMADoL 50 2022-0 Yes [id number] 50mg Take 1 Univ ers mg tablet 5-25 tablet by ity o f 00:00: mouth [place] 00 every 4 Medical (four) Branch hours as needed for Pain (scale 7-10). Indication s: acute pain traMADoL 50 2022-0 Yes [id number] 50mg Take 1 Univ ers mg tablet 5-25 tablet by ity o f 00:00: mouth [place] 00 every 4 Medical (four) Branch hours as needed for Pain (scale 7-10). Indication s: acute pain traMADoL 50 2022-0 Yes [id number] 50mg Take 1 Univ ers mg tablet 5-25 tablet by ity o f 00:00: mouth [place] 00 every 4 Medical (four) Branch hours as needed for Pain (scale 7-10). Indication s: acute pain traMADoL 50 2022-0 Yes [id number] 50mg Take 1 Univ ers mg tablet 5-25 tablet by ity o f 00:00: mouth [place] 00 every 4 Medical (four) Branch hours as needed for Pain (scale 7-10). Indication s: acute pain traMADoL 50 2022-0 Yes [id number] 50mg Take 1 Univ ers mg tablet 5-25 tablet by ity o f 00:00: mouth [place] 00 every 4 Medical (four) Branch hours as needed for Pain (scale 7-10). Indication s: acute pain traMADoL 50 2022-0 Yes [id number] 50mg Take 1 Univ ers mg tablet 5-25 tablet by ity o f 00:00: mouth [place] 00 every 4 Medical (four) Branch hours as needed for Pain (scale 7-10). Indication s: acute pain traMADoL 50 2022-0 Yes [id number] 50mg Take 1 Univ ers mg tablet 5-25 tablet by ity o f 00:00: mouth [place] 00 every 4 Medical (four) Branch hours as needed for Pain (scale 7-10). Indication s: acute pain traMADoL 50 3-0 Yes [id number] 50mg Take 1 Univ ers mg tablet 5-25 tablet by ity o f 00:00: mouth [place] 00 every 4 Medical (four) Branch hours as needed for Pain (scale 7-10). Indication s: acute pain traMADoL 50 3-0 Yes 4647 50mg Take 1 Univ ers mg tablet 5-25 tablet by ity o f 00:00: mouth [place] 00 every 4 Medical (four) Branch hours as needed for Pain (scale 7-10). Indication s: acute pain traMADoL 50 3-0 Yes 4647 50mg Take 1 Univ ers mg tablet 5-25 tablet by ity o f 00:00: mouth [place] 00 every 4 Medical (four) Branch hours as needed for Pain (scale 7-10). Indication s: acute pain acetaminoph 2023-0 Yes 4647 1{tbl} Take 1 Un lala en-codeine 5-15 tablet by ity of (TYLENOL-CO 00:00: mouth [place] DEINE #3) 00 every 4 Medical 300-30 mg (four) Branch tablet hours as needed for Pain (scale 4-6) or Pain (scale 7-10). Indication s: acute pain acetaminoph 3-0 Yes 4647 1{tbl} Take 1 Un lala en-codeine 5-15 tablet by ity of (TYLENOL-CO 00:00: mouth [place] DEINE #3) 00 every 4 Medical 300-30 mg (four) Branch tablet hours as needed for Pain (scale 4-6) or Pain (scale 7-10). Indication s: acute pain acetaminoph 2023-0 Yes 4647 1{tbl} Take 1 Un lala en-codeine 5-15 tablet by ity of (TYLENOL-CO 00:00: mouth [place] DEINE #3) 00 every 4 Medical 300-30 mg (four) Branch tablet hours as needed for Pain (scale 4-6) or Pain (scale 7-10). Indication s: acute pain acetaminoph 2023-0 Yes 4647 1{tbl} Take 1 Un lala en-codeine 5-15 tablet by ity of (TYLENOL-CO 00:00: mouth [place] DEINE #3) 00 every 4 Medical 300-30 mg (four) Branch tablet hours as needed for Pain (scale 4-6) or Pain (scale 7-10). Indication s: acute pain acetaminoph 2023-0 Yes 4647 1{tbl} Take 1 Un lala en-codeine 5-15 tablet by ity of (TYLENOL-CO 00:00: mouth [place] DEINE #3) 00 every 4 Medical 300-30 mg (four) Branch tablet hours as needed for Pain (scale 4-6) or Pain (scale 7-10). Indication s: acute pain acetaminoph 2023-0 Yes 4647 1{tbl} Take 1 Un lala en-codeine 5-15 tablet by ity of (TYLENOL-CO 00:00: mouth [place] DEINE #3) 00 every 4 Medical 300-30 mg (four) Branch tablet hours as needed for Pain (scale 4-6) or Pain (scale 7-10). Indication s: acute pain acetaminoph 2023-0 Yes 4647 1{tbl} Take 1 Un lala en-codeine 5-15 tablet by ity of (TYLENOL-CO 00:00: mouth [place] DEINE #3) 00 every 4 Medical 300-30 mg (four) Branch tablet hours as needed for Pain (scale 4-6) or Pain (scale 7-10). Indication s: acute pain acetaminoph 2023-0 Yes 4647 1{tbl} Take 1 Un lala en-codeine 5-15 tablet by ity of (TYLENOL-CO 00:00: mouth [place] DEINE #3) 00 every 4 Medical 300-30 mg (four) Branch tablet hours as needed for Pain (scale 4-6) or Pain (scale 7-10). Indication s: acute pain acetaminoph 2023-0 Yes 4647 1{tbl} Take 1 Un lala en-codeine 5-15 tablet by ity of (TYLENOL-CO 00:00: mouth [place] DEINE #3) 00 every 4 Medical 300-30 mg (four) Branch tablet hours as needed for Pain (scale 4-6) or Pain (scale 7-10). Indication s: acute pain acetaminoph 2023-0 Yes 4647 1{tbl} Take 1 Un lala en-codeine 5-15 tablet by ity of (TYLENOL-CO 00:00: mouth [place] DEINE #3) 00 every 4 Medical 300-30 mg (four) Branch tablet hours as needed for Pain (scale 4-6) or Pain (scale 7-10). Indication s: acute pain acetaminoph 2023-0 Yes 4647 1{tbl} Take 1 Un lala en-codeine 5-15 tablet by ity of (TYLENOL-CO 00:00: mouth [place] DEINE #3) 00 every 4 Medical 300-30 mg (four) Branch tablet hours as needed for Pain (scale 4-6) or Pain (scale 7-10). Indication s: acute pain acetaminoph 2023-0 Yes 4647 1{tbl} Take 1 Un lala en-codeine 5-15 tablet by ity of (TYLENOL-CO 00:00: mouth [place] DEINE #3) 00 every 4 Medical 300-30 mg (four) Branch tablet hours as needed for Pain (scale 4-6) or Pain (scale 7-10). Indication s: acute pain acetaminoph 2023-0 Yes 4647 1{tbl} Take 1 Un lala en-codeine 5-15 tablet by ity of (TYLENOL-CO 00:00: mouth [place] DEINE #3) 00 every 4 Medical 300-30 mg (four) Branch tablet hours as needed for Pain (scale 4-6) or Pain (scale 7-10). Indication s: acute pain acetaminoph 2023-0 Yes 4647 1{tbl} Take 1 Un lala en-codeine 5-15 tablet by ity of (TYLENOL-CO 00:00: mouth [place] DEINE #3) 00 every 4 Medical 300-30 mg (four) Branch tablet hours as needed for Pain (scale 4-6) or Pain (scale 7-10). Indication s: acute pain acetaminoph 2023-0 Yes 4647 1{tbl} Take 1 Un lala en-codeine 5-10 tablet by ity of (TYLENOL-CO 00:00: mouth [place] DEINE #3) 00 every 4 Medical 300-30 mg (four) Branch tablet hours as needed for Pain (scale 4-6) or Pain (scale 7-10). Indication s: acute pain acetaminoph 2023-0 Yes 4647 1{tbl} Take 1 Un lala en-codeine 5-10 tablet by ity of (TYLENOL-CO 00:00: mouth [place] DEINE #3) 00 every 4 Medical 300-30 mg (four) Branch tablet hours as needed for Pain (scale 4-6) or Pain (scale 7-10). Indication s: acute pain acetaminoph 2023-0 Yes 4647 1{tbl} Take 1 Un lala en-codeine 5-10 tablet by ity of (TYLENOL-CO 00:00: mouth [place] DEINE #3) 00 every 4 Medical 300-30 mg (four) Branch tablet hours as needed for Pain (scale 4-6) or Pain (scale 7-10). Indication s: acute pain acetaminoph 2023-0 Yes 4647 1{tbl} Take 1 Un lala en-codeine 5-10 tablet by ity of (TYLENOL-CO 00:00: mouth [place] DEINE #3) 00 every 4 Medical 300-30 mg (four) Branch tablet hours as needed for Pain (scale 4-6) or Pain (scale 7-10). Indication s: acute pain acetaminoph 2023-0 Yes 4647 1{tbl} Take 1 Un lala en-codeine 5-10 tablet by ity of (TYLENOL-CO 00:00: mouth [place] DEINE #3) 00 every 4 Medical 300-30 mg (four) Branch tablet hours as needed for Pain (scale 4-6) or Pain (scale 7-10). Indication s: acute pain acetaminoph 2023-0 Yes 4647 1{tbl} Take 1 Un lala en-codeine 5-10 tablet by ity of (TYLENOL-CO 00:00: mouth [place] DEINE #3) 00 every 4 Medical 300-30 mg (four) Branch tablet hours as needed for Pain (scale 4-6) or Pain (scale 7-10). Indication s: acute pain acetaminoph 2023-0 Yes 4647 1{tbl} Take 1 Un lala en-codeine 5-10 tablet by ity of (TYLENOL-CO 00:00: mouth [place] DEINE #3) 00 every 4 Medical 300-30 mg (four) Branch tablet hours as needed for Pain (scale 4-6) or Pain (scale 7-10). Indication s: acute pain acetaminoph 2023-0 Yes 4647 1{tbl} Take 1 Un lala en-codeine 5-10 tablet by ity of (TYLENOL-CO 00:00: mouth [place] DEINE #3) 00 every 4 Medical 300-30 mg (four) Branch tablet hours as needed for Pain (scale 4-6) or Pain (scale 7-10). Indication s: acute pain acetaminoph 2023-0 Yes 4647 1{tbl} Take 1 Un lala en-codeine 5-10 tablet by ity of (TYLENOL-CO 00:00: mouth [place] DEINE #3) 00 every 4 Medical 300-30 mg (four) Branch tablet hours as needed for Pain (scale 4-6) or Pain (scale 7-10). Indication s: acute pain acetaminoph 2023-0 Yes 4647 1{tbl} Take 1 Un lala en-codeine 5-10 tablet by ity of (TYLENOL-CO 00:00: mouth [place] DEINE #3) 00 every 4 Medical 300-30 mg (four) Branch tablet hours as needed for Pain (scale 4-6) or Pain (scale 7-10). Indication s: acute pain acetaminoph 2023-0 Yes 4647 1{tbl} Take 1 Un lala en-codeine 5-10 tablet by ity of (TYLENOL-CO 00:00: mouth [place] DEINE #3) 00 every 4 Medical 300-30 mg (four) Branch tablet hours as needed for Pain (scale 4-6) or Pain (scale 7-10). Indication s: acute pain acetaminoph 2023-0 Yes 4647 1{tbl} Take 1 Un lala en-codeine 5-10 tablet by ity of (TYLENOL-CO 00:00: mouth [place] DEINE #3) 00 every 4 Medical 300-30 mg (four) Branch tablet hours as needed for Pain (scale 4-6) or Pain (scale 7-10). Indication s: acute pain acetaminoph 2023-0 Yes 4647 1{tbl} Take 1 Un lala en-codeine 5-10 tablet by ity of (TYLENOL-CO 00:00: mouth [place] DEINE #3) 00 every 4 Medical 300-30 mg (four) Branch tablet hours as needed for Pain (scale 4-6) or Pain (scale 7-10). Indication s: acute pain acetaminoph 2022-0 Yes 4647 1{tbl} Take 1 Un lala en-codeine 5-10 tablet by ity of (TYLENOL-CO 00:00: mouth [place] DEINE #3) 00 every 4 Medical 300-30 mg (four) Branch tablet hours as needed for Pain (scale 4-6) or Pain (scale 7-10). Indication s: acute pain acetaminoph 2022-0 Yes 4647 1{tbl} Take 1 Un lala en-codeine 5-10 tablet by ity of (TYLENOL-CO 00:00: mouth [place] DEINE #3) 00 every 4 Medical 300-30 mg (four) Branch tablet hours as needed for Pain (scale 4-6) or Pain (scale 7-10). Indication s: acute pain acetaminoph 2022-0 Yes 4647 1{tbl} Take 1 Un lala en-codeine 5-10 tablet by ity of (TYLENOL-CO 00:00: mouth [place] DEINE #3) 00 every 4 Medical 300-30 mg (four) Branch tablet hours as needed for Pain (scale 4-6) or Pain (scale 7-10). Indication s: acute pain tranexamic 2022- No 1000mg 1,000 mg, Univers acid 07-02 IV ity of (CYKLOKAPRO 04:00: 05:33 Piggyback, [place] N) 1,000 mg 00 :00 ONCE, 1 Medic al in NaCl dose, On Branch 0.9% (NS) Fri07/01/22 250 mL at 2300, piggyback Administer over 60 Minutes, 250 mL HYDROcodone 2022- No 1{tbl} 1 tablet, Univers -acetaminop 07-02 Oral, ity of hen (NORCO) 03:45: 02:50 ONCE, 1 [place] 10-325 mg 00 :00 dose, On Medica l tablet 1 Fri07/01/22 Branc h tablet at 2245, Routine LORazepam 2022- No 1mg 1 mg, Univer s (ATIVAN) 07-02 Oral, ity of tablet 1 mg 02:45: 02:49 ONCE, 1 [place] 00 :00 dose, On Medical Fri07/01/22 Branch at 2145, LESLY lactated 2022-0 Yes 1000mL at 50 Univer s ringers IV 5-01 mL/hr, ity of infusion 16:30: 1,000 mL, [place] 1[place]000 [place] 00 IV Medical Infusion, Branch CONTINUOUS , Starting on Fri07/01/22 at 1130, Until Discontinu ed, Routine, PACU lactated 2022-0 2022- No 1000mL at 50 Unive rs ringers IV 07-01 05- mL/hr, ity of infusion 16:30: 21:57 1,000 mL, [place] 1,000 mL 00 :33 IV Medical Infusion, Branch CONTINUOUS , Starting on Fri07/01/22 at 1130, Until Fri07/01/22 at 1657, Routine, PACU HYDROmorphO 0 Yes .2mg 0.2 mg, Uni vers ne 07-01 Slow IV ity of (DILAUDID) 16:28: Push, [place] injection 29 Q5MIN PRN, Medi xavier 0.2 mg 10 doses, Branch Starting on Fri07/01/22 at 1128, Until Discontinu ed, Routine, Pain (scale 7-10), PACU
Us e approved by (Faculty): PACU USE -ANESTHESI A SERVICE-HY DROMORPHON E INJECTIONS FENTanyl PF Yes 25ug 25 mcg, Uni vers (SUBLIMAZE 07-01 Slow IV ity of (PF)) 16:28: Push, [place] injection 29 Q5MIN PRN, Medi xavier 25 mcg 4 doses, Branch Starting on Fri07/01/22 at 1128, Until Discontinu ed, Routine, Pain (scale 4-6), PACU proMETHazin 2022- No 12.5mg 12.5 mg, Univers e 07-01 IV ity of (PHENERGAN) 16:28: 17:40 Piggyback, [place] 12.5 mg in 29 :00 PRN, 1 Medical NaCl 0.9% dose, Branch (NS) 50 mL Starting IV on Fri piggyback 07/01/22 at 1128, Until Discontinu ed, Routine, Nausea and Vomiting (N/V), PACU HYDROmorphO 0 2022- No .2mg 0.2 mg, Un lala ne 07-01 Slow IV ity of (DILAUDID) 16:28: 21:57 Push, [place] injection 29 :33 Q5MIN PRN, Medi xavier 0.2 mg 10 doses, Branch Starting on Fri07/01/22 at 1128, Until Fri07/01/22 at 1657, Routine, Pain (scale 7-10), PACU
Us e approved by (Faculty): PACU USE -ANESTHESI A SERVICE-HY DROMORPHON E INJECTIONS FENTanyl PF 2022- No 25ug 25 mcg, Un lala (SUBLIMAZE 07-01 Slow IV ity o f (PF)) 16:28: 21:57 [place], [place] injection 29 :33 Q5MIN PRN, Medi xavier 25 mcg 4 doses, Branch Starting on Fri07/01/22 at 1128, Until Fri07/01/22 at 1657, Routine, Pain (scale 4-6), PACU proMETHazin 2022- No 12.5mg 12.5 mg, Univers e 07-01 IV ity of (PHENERGAN) 16:28: 17:40 [place], [place] 12.5 mg in 29 :00 PRN, 1 Medical NaCl 0.9% dose, Branch (NS) 50 mL Starting IV on Fri piggyback 07/01/22 at 1128, Until Discontinu ed, Routine, Nausea and Vomiting (N/V), PACU bupivacaine 2022- No PRN, Unive rs (preserv 07-01 Starting ity of free) 15:09: 16:28 on Fri [place] (SENSORCAIN 00 :16 07/01/22 at Med ical E MPF) 0.25 1009, Branch % (2.5 Intra-op mg/mL) 30 mL, BUPivacaine liposome (PF) (EXPAREL (PF)) 1.3 % (13.3 mg/mL) 266 mg, NaCl 0.9% (NS) 70 mL sodium 2022- No PRN, Univers chloride 07-01 Starting ity of 0.9 % 15:08: 16:28 on Fri [place] irrigation 00 :16 07/01/22 at Medi xavier solution 1008, Branch Until Fri07/01/22 at 1128, Intra-op ALPRAZolam 2023-0 Yes 1mg Take 1 Unive rs 1 mg tablet 5-01 tablet by ity of 14:57: mouth in [place] [address] the Medical morning Branch and 1 tablet at noon and 1 tablet in the evening. lisinopril 2023-0 Yes Take by Univ ers 10 mg 5-01 mouth ity of tablet 14:57: daily. [address] albuterol 2023-0 Yes 1.25mg Use 3 mL [facility] lala 1.25 mg/3 5-01 as ity of mL 14:57: directed [place] nebulizer every 6 Medical solution (six) Branch hours as needed for Wheezing. ALPRAZolam 2023-0 Yes 1mg Take 1 Unive rs 1 mg tablet 5-01 tablet by ity of 14:57: mouth in [place] [address] the Medical morning Branch and 1 tablet at noon and 1 tablet in the evening. lisinopril 2023-0 Yes Take by Univ ers 10 mg 5-01 mouth ity of tablet 14:57: daily. [address] albuterol 2023-0 Yes 1.25mg Use 3 mL Un lala 1.25 mg/3 5-01 as ity of mL 14:57: directed [place] nebulizer every 6 Medical solution (six) Branch hours as needed for Wheezing. ALPRAZolam 2023-0 Yes 1mg Take 1 Unive rs 1 mg tablet 5-01 tablet by ity of 14:57: mouth in [place] [address] [facility] morning [place] and 1 tablet at noon and 1 tablet in the evening. lisinopril 2023-0 Yes Take by Univ ers 10 mg 5-01 mouth ity of tablet 14:57: daily. [address] albuterol 2023-0 Yes 1.25mg Use 3 mL Un l[facility] 1.25 mg/3 5-01 as ity of mL 14:57: directed [place] nebulizer every 6 Medical solution (six) Branch hours as needed for Wheezing. ALPRAZolam 2023-0 Yes 1mg Take 1 Unive rs 1 mg tablet 5-01 tablet by ity of 14:57: mouth in [place] [address] [facility] morning [place] and 1 tablet at noon and 1 tablet in the evening. lisinopril 2023-0 Yes Take by Univ ers 10 mg 5-01 mouth ity of tablet 14:57: daily. [address] albuterol 2023-0 Yes 1.25mg Use 3 mL Un lala 1.25 mg/3 5-01 as ity of mL 14:57: directed [place] nebulizer 32 every 6 Medical solution (six) Branch hours as needed for Wheezing. ALPRAZolam 2023-0 Yes 1mg Take 1 Unive rs 1 mg tablet 5-01 tablet by ity of 14:57: mouth in [place] [address] the Medical morning Branch and 1 tablet at noon and 1 tablet in the evening. lisinopril 2023-0 Yes Take by Univ ers 10 mg 5-01 mouth ity of tablet 14:57: daily. [address] albuterol 2023-0 Yes 1.25mg Use 3 mL Un lala 1.25 mg/3 5-01 as ity of mL 14:57: directed [place] nebulizer 32 every 6 Medical solution (six) Branch hours as needed for Wheezing. ALPRAZolam 2023-0 Yes 1mg Take 1 Unive rs 1 mg tablet 5-01 tablet by ity of 14:57: mouth in [address] and 1 tablet at noon and 1 tablet in the evening. lisinopril 2023-0 Yes Take by Univ ers 10 mg 5-01 mouth ity of tablet 14:57: daily. [address] albuterol 2023-0 Yes 1.25mg Use 3 mL Un lala 1.25 mg/3 5-01 as ity of mL 14:57: directed [place] nebulizer 32 every 6 Medical solution (six) Branch hours as needed for Wheezing. ALPRAZolam 2023-0 Yes 1mg Take 1 Unive rs 1 mg tablet 5-01 tablet by ity of 14:57: mouth in [place] [address] [facility] morning [place] and 1 tablet at noon and 1 tablet in the evening. lisinopril 2023-0 Yes Take by Univ ers 10 mg 5-01 mouth ity of tablet 14:57: daily. [address] albuterol 2023-0 Yes 1.25mg Use 3 mL Un lala 1.25 mg/3 5-01 as ity of mL 14:57: directed [place] nebulizer 32 every 6 Medical solution (six) Branch hours as needed for Wheezing. ALPRAZolam 2023-0 Yes 1mg Take 1 Unive rs 1 mg tablet 5-01 tablet by ity of 14:57: mouth in [address] Medical morning Branch and 1 tablet at noon and 1 tablet in the evening. lisinopril 2023-0 Yes Take by Univ ers 10 mg 5-01 mouth ity of tablet 14:57: daily. [address] albuterol 2023-0 Yes 1.25mg Use 3 mL Un lala 1.25 mg/3 5-01 as ity of mL 14:57: directed [place] nebulizer every 6 Medical solution (six) Branch hours as needed for Wheezing. ALPRAZolam 2023-0 Yes 1mg Take 1 Unive rs 1 mg tablet 5-01 tablet by ity of 14:57: mouth in [address] morning [place] and 1 tablet at noon and 1 tablet in the evening. lisinopril 2023-0 Yes Take by Univ ers 10 mg 5-01 mouth ity of tablet 14:57: daily. [address] albuterol 2023-0 Yes 1.25mg Use 3 mL Un lala 1.25 mg/3 5-01 as ity of mL 14:57: directed [place] nebulizer every 6 Medical solution (six) Branch hours as needed for Wheezing. ALPRAZolam 3-0 Yes 1mg Take 1 Unive rs 1 mg tablet 5-01 tablet by ity of 14:57: mouth in [address] and 1 tablet at noon and 1 tablet in the evening. lisinopril 2023-0 Yes Take by Univ ers 10 mg 5-01 mouth ity of tablet 14:57: daily. [address] albuterol 2023-0 Yes 1.25mg Use 3 mL Un l[facility] 1.25 mg/3 5-01 as ity of mL 14:57: directed [place] nebulizer every 6 Medical solution (six) Branch hours as needed for Wheezing. ALPRAZolam 2023-0 Yes 1mg Take 1 Unive rs 1 mg tablet 5-01 tablet by ity of 14:57: mouth in [address] morning [place] and 1 tablet at noon and 1 tablet in the evening. lisinopril 2023-0 Yes Take by Univ ers 10 mg 5-01 mouth ity of tablet 14:57: daily. [address] albuterol 2023-0 Yes 1.25mg Use 3 mL Un lala 1.25 mg/3 5-01 as ity of mL 14:57: directed [place] nebulizer 32 every 6 Medical solution (six) Branch hours as needed for Wheezing. ALPRAZolam 2023-0 Yes 1mg Take 1 Unive rs 1 mg tablet 5-01 tablet by ity of 14:57: mouth in [place] [address] [facility] morning Branch and 1 tablet at noon and 1 tablet in the evening. lisinopril 2023-0 Yes Take by Univ ers 10 mg 5-01 mouth ity of tablet 14:57: daily. [address] Branch albuterol 2023-0 Yes 1.25mg Use 3 mL Un lala 1.25 mg/3 5-01 as ity of mL 14:57: directed [place] nebulizer 32 every 6 Medical solution (six) Branch hours as needed for Wheezing. ALPRAZolam 2023-0 Yes 1mg Take 1 Unive rs 1 mg tablet 5-01 tablet by ity of 14:57: mouth in [place] [address] [facility] morning Branch and 1 tablet at noon and 1 tablet in the evening. lisinopril 2023-0 Yes Take by Univ ers 10 mg 5-01 mouth ity of tablet 14:57: daily. [address] Branch albuterol 2023-0 Yes 1.25mg Use 3 mL Un lala 1.25 mg/3 5-01 as ity of mL 14:57: directed [place] nebulizer every 6 Medical solution (six) Branch hours as needed for Wheezing. ALPRAZolam 2023-0 Yes 1mg Take 1 Unive rs 1 mg tablet 5-01 tablet by ity of 14:57: mouth in [place] [address] [facility] morning Branch and 1 tablet at noon and 1 tablet in the evening. lisinopril 2023-0 Yes Take by Univ ers 10 mg 5-01 mouth ity of tablet 14:57: daily. [address] Branch albuterol 2023-0 Yes 1.25mg Use 3 mL Un alla 1.25 mg/3 5-01 as ity of mL 14:57: directed [place] nebulizer every 6 Medical solution (six) Branch hours as needed for Wheezing. ALPRAZolam 2023-0 Yes 1mg Take 1 Unive rs 1 mg tablet 5-01 tablet by ity of 14:57: mouth in [place] [address] the Medical morning Branch and 1 tablet at noon and 1 tablet in the evening. lisinopril 2023-0 Yes Take by Univ ers 10 mg 5-01 mouth ity of tablet 14:57: daily. [address] albuterol 2023-0 Yes 1.25mg Use 3 mL Un lala 1.25 mg/3 5-01 as ity of mL 14:57: directed [place] nebulizer every 6 Medical solution (six) Branch hours as needed for Wheezing. ALPRAZolam 2023-0 Yes 1mg Take 1 Unive rs 1 mg tablet 5-01 tablet by ity of 14:57: mouth in [place] [address] [facility] morning Branch and 1 tablet at noon and 1 tablet in the evening. lisinopril 2023-0 Yes Take by Univ ers 10 mg 5-01 mouth ity of tablet 14:57: daily. [address] albuterol 2023-0 Yes 1.25mg Use 3 mL Un lala 1.25 mg/3 5-01 as ity of mL 14:57: directed [place] nebulizer every 6 Medical solution (six) Branch hours as needed for Wheezing. ALPRAZolam 2023-0 Yes 1mg Take 1 Unive rs 1 mg tablet 5-01 tablet by ity of 14:57: mouth in [address] morning [place] and 1 tablet at noon and 1 tablet in the evening. lisinopril 2023-0 Yes Take by Univ ers 10 mg 5-01 mouth ity of tablet 14:57: daily. [address] albuterol 2023-0 Yes 1.25mg Use 3 mL Un lala 1.25 mg/3 5-01 as ity of mL 14:57: directed [place] nebulizer every 6 Medical solution (six) Branch hours as needed for Wheezing. ALPRAZolam 2023-0 Yes 1mg Take 1 Unive rs 1 mg tablet 5-01 tablet by ity of 14:57: mouth in [place] [address] [facility] morning [place] and 1 tablet at noon and 1 tablet in the evening. lisinopril 2023-0 Yes Take by Univ ers 10 mg 5-01 mouth ity of tablet 14:57: daily. [address] albuterol 2023-0 Yes 1.25mg Use 3 mL Un lala 1.25 mg/3 5-01 as ity of mL 14:57: directed [place] nebulizer 32 every 6 Medical solution (six) Branch hours as needed for Wheezing. ALPRAZolam 2023-0 Yes 1mg Take 1 Unive rs 1 mg tablet 5-01 tablet by ity of 14:57: mouth in [place] [address] the Medical morning Branch and 1 tablet at noon and 1 tablet in the evening. lisinopril 2023-0 Yes Take by Univ ers 10 mg 5-01 mouth ity of tablet 14:57: daily. [address] Branch albuterol 2023-0 Yes 1.25mg Use 3 mL Un lala 1.25 mg/3 5-01 as ity of mL 14:57: directed [place] nebulizer 32 every 6 Medical solution (six) Branch hours as needed for Wheezing. ALPRAZolam 2023-0 Yes 1mg Take 1 Unive rs 1 mg tablet 5-01 tablet by ity of 14:57: mouth in [place] [address] the Medical morning Branch and 1 tablet at noon and 1 tablet in the evening. lisinopril 2023-0 Yes Take by Univ ers 10 mg 5-01 mouth ity of tablet 14:57: daily. [address] Branch albuterol 2023-0 Yes 1.25mg Use 3 mL Un lala 1.25 mg/3 5-01 as ity of mL 14:57: directed [place] nebulizer every 6 Medical solution (six) Branch hours as needed for Wheezing. ALPRAZolam 2023-0 Yes 1mg Take 1 Unive rs 1 mg tablet 5-01 tablet by ity of 14:57: mouth in [place] [address] [facility] morning Branch and 1 tablet at noon and 1 tablet in the evening. lisinopril 2023-0 Yes Take by Univ ers 10 mg 5-01 mouth ity of tablet 14:57: daily. [address] Branch albuterol 2023-0 Yes 1.25mg Use 3 mL Un lala 1.25 mg/3 5-01 as ity of mL 14:57: directed [place] nebulizer 32 every 6 Medical solution (six) Branch hours as needed for Wheezing. ALPRAZolam 2023-0 Yes 1mg Take 1 Unive rs 1 mg tablet 5-01 tablet by ity of 14:57: mouth in [place] [address] the Medical morning Branch and 1 tablet at noon and 1 tablet in the evening. lisinopril 2023-0 Yes Take by Univ ers 10 mg 5-01 mouth ity of tablet 14:57: daily. [address] Branch albuterol 2023-0 Yes 1.25mg Use 3 mL Un lala 1.25 mg/3 5-01 as ity of mL 14:57: directed [place] nebulizer 32 every 6 Medical solution (six) Branch hours as needed for Wheezing. ALPRAZolam 2023-0 Yes 1mg Take 1 Unive rs 1 mg tablet 5-01 tablet by ity of 14:57: mouth in [place] [address] the Medical morning Branch and 1 tablet at noon and 1 tablet in the evening. lisinopril 2023-0 Yes Take by Univ ers 10 mg 5-01 mouth ity of tablet 14:57: daily. [address] albuterol 2023-0 Yes 1.25mg Use 3 mL Un lala 1.25 mg/3 5-01 as ity of mL 14:57: directed [place] nebulizer 32 every 6 Medical solution (six) Branch hours as needed for Wheezing. ALPRAZolam 2023-0 Yes 1mg Take 1 Unive rs 1 mg tablet 5-01 tablet by ity of 14:57: mouth in [place] [address] the Medical morning Branch and 1 tablet at noon and 1 tablet in the evening. lisinopril 2023-0 Yes Take by Univ ers 10 mg 5-01 mouth ity of tablet 14:57: daily. [address] Branch albuterol 2023-0 Yes 1.25mg Use 3 mL Un lala 1.25 mg/3 5-01 as ity of mL 14:57: directed [place] nebulizer 32 every 6 Medical solution (six) Branch hours as needed for Wheezing. ALPRAZolam 2023-0 Yes 1mg Take 1 Unive rs 1 mg tablet 5-01 tablet by ity of 14:57: mouth in [place] [address] the Medical morning Branch and 1 tablet at noon and 1 tablet in the evening. lisinopril 2023-0 Yes Take by Univ ers 10 mg 5-01 mouth ity of tablet 14:57: daily. [address] Branch albuterol 2023-0 Yes 1.25mg Use 3 mL Un lala 1.25 mg/3 5-01 as ity of mL 14:57: directed [place] nebulizer 32 every 6 Medical solution (six) Branch hours as needed for Wheezing. ALPRAZolam 2023-0 Yes 1mg Take 1 Unive rs 1 mg tablet 5-01 tablet by ity of 14:57: mouth in [place] [address] the Medical morning Branch and 1 tablet at noon and 1 tablet in the evening. lisinopril 2023-0 Yes Take by Univ ers 10 mg 5-01 mouth ity of tablet 14:57: daily. [address] albuterol 3-0 Yes 1.25mg Use 3 mL Un lala 1.25 mg/3 5-01 as ity of mL 14:57: directed [place] nebulizer every 6 Medical solution (six) Branch hours as needed for Wheezing. ALPRAZolam 3-0 Yes 1mg Take 1 Unive rs 1 mg tablet 5-01 tablet by ity of 14:57: mouth in [place] [address] the Medical morning Branch and 1 tablet at noon and 1 tablet in the evening. lisinopril 2023-0 Yes Take by [facility] ers 10 mg 5-01 mouth ity of tablet 14:57: daily. [address] albuterol 3-0 Yes 1.25mg Use 3 mL Un lala 1.25 mg/3 5-01 as ity of mL 14:57: directed [place] nebulizer every 6 Medical solution (six) Branch hours as needed for Wheezing. ALPRAZolam 3-0 Yes 1mg Take 1 Unive rs 1 mg tablet 5-01 tablet by ity of 14:57: mouth in [place] [address] [facility] morning [place] and 1 tablet at noon and 1 tablet in the evening. lisinopril 3-0 Yes Take by [facility] ers 10 mg 5-01 mouth ity of tablet 14:57: daily. [address] albuterol 3-0 Yes 1.25mg Use 3 mL Un lala 1.25 mg/3 5-01 as ity of mL 14:57: directed [place] nebulizer every 6 Medical solution (six) Branch hours as needed for Wheezing. oxyCODONE-a 0 2022- No 2{tbl} 2 tablet, Univers cetaminophe 07-01 05-01 Oral, ity of n 12:15: 12:07 ONCE, 1 [place] (PERCOCET) 00 :00 dose, On Medic al 5-325 mg 07/01/22 Branc h per tablet at 0715, 2 tablet Routine, DSU Pre-op celecoxib 2022- No 400mg 400 mg, Uni vers (CELEBREX) 07-01 Oral, ity of capsule 400 12:15: 12:07 ONCE, 1 [place] mg 00 :00 dose, On Medical 07/01/22 Branch at 0715, Routine, DSU Pre-op lactated 2022-0 2022- No [facility] 07-[facility] mL/hr, ity of infusion 12:15: 12:17 1,000 mL, [place] 1,000 mL 00 :00 IV Medical Infusion, Branch ONCE, 1 dose, On Fri07/01/22 at 0715, Routine, DSU Pre-op oxyCODONE-a 2022- No 2{tbl} 2 tablet, Univers cetaminophe 07-01 Oral, ity of n 12:15: 12:07 ONCE, 1 [place] (PERCOCET) 00 :00 dose, On Medic al 5-325 mg Fri07/01/22 Branc h per tablet at 0715, 2 tablet Routine, DSU Pre-op celecoxib 2022- No 400mg 400 mg, Uni vers (CELEBREX) 07-01 Oral, ity of capsule 400 12:15: 12:07 ONCE, 1 [place] mg 00 :00 dose, On Medical Fri07/01/22 Branch at 0715, Routine, DSU Pre-op lactated 2022- No 1000[facility] 07-01 mL/hr, ity of infusion 12:15: 12:17 1,000 mL, [place] 1,000 mL 00 :00 IV Medical Infusion, Branch ONCE, 1 dose, On Fri07/01/22 at 0715, Routine, DSU Pre-op omeprazole 2022- No 40mg Take 1 Univ ers 40 mg 07-01 capsule by ity of capsule 09:38: 00:00 mouth in [place] 15 :00 the Medical morning. Branch loratadine 2022- No 10mg Take 1 Univ ers 10 mg 07-01 tablet by ity of tablet 09:38: 00:00 mouth in [place] 15 :00 the Medical morning. Branch aspirin 81 2022-0 3- No 81mg Take 1 Univ ers mg chewable 5-01 05-01 tablet by it y of tablet 09:38: 00:00 mouth in [place] 15 :00 the Medical morning. Branch omeprazole 2022-0 2022- No 40mg Take 1 Univ ers 40 mg 5-01 05- capsule by ity of capsule 09:38: 00:00 mouth in [place] 15 :00 the Medical morning. Branch loratadine 2022-0 2022- No 10mg Take 1 Univ ers 10 mg 5-01 05-01 tablet by ity of tablet 09:38: 00:00 mouth in [place] 15 :00 the Medical morning. Branch aspirin 81 2022-0 2022- No 81mg Take 1 Univ ers mg chewable 5-01 05-01 tablet by it y of tablet 09:38: 00:00 mouth in [place] 15 :00 the Medical morning. Branch ALPRAZolam 3-0 Yes 1mg Take 1 Unive rs 1 mg tablet 5-01 tablet by ity of 09:38: mouth in [address] morning Branch and 1 tablet at noon and 1 tablet in the evening. lisinopril 2023-0 Yes Take by Univ ers 10 mg 5-01 mouth ity of tablet 09:38: daily. [address] albuterol 3-0 Yes 1.25mg Use 3 mL Un lala 1.25 mg/3 5-01 as ity of mL 09:38: directed [place] nebulizer 11 every 6 Medical solution (six) Branch hours as needed for Wheezing. ALPRAZolam 3-0 Yes 1mg Take 1 Unive rs 1 mg tablet 5-01 tablet by ity of 09:38: mouth in [address] morning Branch and 1 tablet at noon and 1 tablet in the evening. lisinopril 2023-0 Yes Take by Univ ers 10 mg 5-01 mouth ity of tablet 09:38: daily. [address] albuterol 3-0 Yes 1.25mg Use 3 mL Un lala 1.25 mg/3 5-01 as ity of mL 09:38: directed [place] nebulizer 11 every 6 Medical solution (six) Branch hours as needed for Wheezing. aspirin 325 2022-0 2023- No [id number] 325mg Take 1 Univers mg tablet 507-30 9100 tablet by ity of 00:: 04:59 mouth in [place] 00 :00 the Medical morning Branch and 1 tablet in the evening. Take with meals. Do all this for 28 days. aspirin 325 2023-0 3- No [id number] 325mg Take 1 Univers mg tablet 507-30 9100 tablet by ity of 00:00: 04:59 mouth in [place] 00 :00 [facility] morning Branch and 1 tablet in the evening. Take with meals. Do all this for 28 days. aspirin 325 3-0 3- No [id number] 325mg Take 1 Univers mg tablet 5-07-30 9100 tablet by ity of 00:00: 04:59 mouth in [place] 00 :00 the [facility] morning [place] and 1 tablet in the evening. Take with meals. Do all this for 28 days. aspirin 325 2022-0 2022- No [id number] 325mg Take 1 Univers mg tablet 507-30 9100 tablet by ity of 00:: 04:59 mouth in [place] 00 :00 the [facility] morning [place] and 1 tablet in the evening. Take with meals. Do all this for 28 days. aspirin 325 3-0 3- No [id number] 325mg Take 1 Univers mg tablet 07-0100 tablet by ity of 00:00: 04:59 mouth in [place] 00 :00 the [facility] morning [place] and 1 tablet in the evening. Take with meals. Do all this for 28 days. aspirin 325 3-0 3- No [id number] 325mg Take 1 Univers mg tablet 07-01 9100 tablet by ity of 00:00: 04:59 mouth in [place] 00 :00 the [facility] morning [place] and 1 tablet in the evening. Take with meals. Do all this for 28 days. aspirin 325 2023-0 2023- No [id number] 325mg Take 1 Univers mg tablet 507-30 9100 tablet by ity of 00:00: 04:59 mouth in [place] 00 :00 the [facility] morning [place] and 1 tablet in the evening. Take with meals. Do all this for 28 days. aspirin 325 2023-0 2023- No [id number] 325mg Take 1 Univers mg tablet 5-07-30 9100 tablet by ity of 00:00: 04:59 mouth in [place] 00 :00 [facility] morning Branch and 1 tablet in the evening. Take with meals. Do all this for 28 days. aspirin 325 2023-0 2023- No [id number] 325mg Take 1 Univers mg tablet 5-03 07- 9100 tablet by ity of 00:00: 04:59 mouth in [place] 00 :00 the [facility] morning [place] and 1 tablet in the evening. Take with meals. Do all this for 28 days. aspirin 325 2023-0 2023- No [id number] 325mg Take 1 Univers mg tablet 5-03 07- 9100 tablet by ity of 00:00: 04:59 mouth in [place] 00 :00 [facility] morning [place] and 1 tablet in the evening. Take with meals. Do all this for 28 days. aspirin 325 2023-0 2023- No [id number] 325mg Take 1 Univers mg tablet 5-07-30 9100 tablet by ity of 00:: 04:59 mouth in [place] 00 :[address] [facility] and 1 tablet in the evening. Take with meals. Do all this for 28 days. aspirin 325 2023-0 2023- No [id number] 325mg Take 1 Univers mg tablet 07-01 9100 tablet by ity of 00:: :59 mouth in [place] 00 :[address] [facility] and 1 tablet in the evening. Take with meals. Do all this for 28 days. aspirin 325 2023-0 2023- No [id number] 325mg Take 1 Univers mg tablet 507-30 9100 tablet by ity of 00:00: 04:59 mouth in [place] 00 :[address] [facility] and 1 tablet in the evening. Take with meals. Do all this for 28 days. aspirin 325 2023-0 2023- No [id number] 325mg Take 1 Univers mg tablet 5-03 07- 9100 tablet by ity of 00:00: 04:59 mouth in [place] 00 :[address] [facility] and 1 tablet in the evening. Take with meals. Do all this for 28 days. aspirin 325 2023-0 2023- No [id number] 325mg Take 1 Univers mg tablet 5-03 07- 9100 tablet by ity of 00:00: 04:59 mouth in [place] 00 :[address] [facility] and 1 tablet in the evening. Take with meals. Do all this for 28 days. aspirin 325 2023-0 2022- No [id number] 325mg Take 1 Univers mg tablet 5-03 07-30 9100 tablet by ity of 00:00: 04:59 mouth in [place] 00 :[address] [facility] and 1 tablet in the evening. Take with meals. Do all this for 28 days. aspirin 325 2022-0 202- No [id number] 325mg Take 1 Univers mg tablet 5-03 07- 9100 tablet by ity of 00:00: 04:59 mouth in [place] 00 :00 [facility] morning [place] and 1 tablet in the evening. Take with meals. Do all this for 28 days. aspirin 325 2022-0 2022- No [id number] 325mg Take 1 [facility] mg tablet 5-03 07- 9100 tablet by ity of 00:00: 04:59 mouth in [place] 00 :[address] [facility] and 1 tablet in the evening. Take with meals. Do all this for 28 days. aspirin 325 2022-0 2022- No [id number] 325mg Take 1 [facility] mg tablet 5-03 07- 9100 tablet by ity of 00:00: 04:59 mouth in [place] 00 :[address] [facility] and 1 tablet in the evening. Take with meals. Do all this for 28 days. aspirin 325 2022-0 2022- No [id number] 325mg Take 1 [facility] mg tablet 507-30 9100 tablet by ity of 00:00: 04:59 mouth in [place] 00 :[address] [facility] and 1 tablet in the evening. Take with meals. Do all this for 28 days. HYDROcodone 2022-2022- No 4647 1{tbl} Take 1 U nivers -acetaminop 5-01 05-09 tablet by it y of hen 5-325 00:00: 04:59 mouth [place] mg tablet 00 :00 every 6 Medical (six) Branch hours as needed for Pain (scale 4-6) or Pain (scale 7-10) for up to 7 days. Indication s: acute pain HYDROcodone 2022-2022- No 4647 1{tbl} Take 1 U nivers -acetaminop 5-01 05-09 tablet by it y of hen 5-325 00:00: 04:59 mouth [place] mg tablet 00 :00 every 6 Medical (six) Branch hours as needed for Pain (scale 4-6) or Pain (scale 7-10) for up to 7 days. Indication s: acute pain HYDROcodone No 4647 1{tbl} Take 1 U nivers -acetaminop 5-01 05-09 tablet by it y of hen 5-325 00:00: 04:59 mouth [place] mg tablet 00 :00 every 6 Medical (six) Branch hours as needed for Pain (scale 4-6) or Pain (scale 7-10) for up to 7 days. Indication s: acute pain HYDROcodone No 4647 1{tbl} Take 1 U nivers -acetaminop 5-01 05-09 tablet by it y of hen 5-325 00:00: 04:59 mouth [place] mg tablet 00 :00 every 6 Medical (six) Branch hours as needed for Pain (scale 4-6) or Pain (scale 7-10) for up to 7 days. Indication s: acute pain HYDROcodone No 4647 1{tbl} Take 1 U nivers -acetaminop 5-01 05-09 tablet by it y of hen 5-325 00:00: 04:59 mouth [place] mg tablet 00 :00 every 6 Medical (six) Branch hours as needed for Pain (scale 4-6) or Pain (scale 7-10) for up to 7 days. Indication s: acute pain HYDROcodone No 4647 1{tbl} Take 1 U nivers -acetaminop 5-01 05-09 tablet by it y of hen 5-325 00:00: 04:59 mouth [place] mg tablet 00 :00 every 6 Medical (six) Branch hours as needed for Pain (scale 4-6) or Pain (scale 7-10) for up to 7 days. Indication s: acute [place]DROcodone No 4647 1{tbl} Take 1 U nivers -acetaminop 5-01 05-09 tablet by it y of hen 5-325 00:00: 04:59 mouth [place] mg tablet 00 :00 every 6 Medical (six) Branch hours as needed for Pain (scale 4-6) or Pain (scale 7-10) for up to 7 days. Indication s: acute pain HYDROcodone 2022-2022- No 4647 1{tbl} Take 1 U nivers -acetaminop 5-01 05-09 tablet by it y of hen 5-325 00:00: 04:59 mouth [place] mg tablet 00 :00 every 6 Medical (six) Branch hours as needed for Pain (scale 4-6) or Pain (scale 7-10) for up to 7 days. Indication s: acute pain HYDROcodone 2022-2022- No 4647 1{tbl} Take 1 U nivers -acetaminop 5-01 05-09 tablet by it y of hen 5-325 00:00: 04:59 mouth [place] mg tablet 00 :00 every 6 Medical (six) Branch hours as needed for Pain (scale 4-6) or Pain (scale 7-10) for up to 7 days. Indication s: acute pain HYDROcodone 2022- No 4647 1{tbl} Take 1 U nivers -acetaminop 5-01 05-09 tablet by it y of hen 5-325 00:00: 04:59 mouth [place] mg tablet 00 :00 every 6 Medical (six) Branch hours as needed for Pain (scale 4-6) or Pain (scale 7-10) for up to 7 days. Indication s: acute pain HYDROcodone 2022-2022- No 4647 1{tbl} Take 1 U nivers -acetaminop 5-01 05-09 tablet by it y of hen 5-325 00:00: 04:59 mouth [place] mg tablet 00 :00 every 6 Medical (six) Branch hours as needed for Pain (scale 4-6) or Pain (scale 7-10) for up to 7 days. Indication s: acute pain HYDROcodone 2022-0 2022- No 4647 1{tbl} Take 1 U nivers -acetaminop 5-01 05-09 tablet by it y of hen 5-325 00:00: 04:59 mouth [place] mg tablet 00 :00 every 6 Medical (six) Branch hours as needed for Pain (scale 4-6) or Pain (scale 7-10) for up to 7 days. Indication s: acute pain acetaminoph 2022- Yes 4647 1{tbl} Take 1 [facility] en-codeine 4-27 tablet by ity of (TYLENOL-CO 00:00: mouth [place] DEINE #3) 00 every 4 Medical 300-30 mg (four) Branch tablet hours as needed for Pain (scale 4-6) or Pain (scale 7-10). Indication s: acute pain acetaminoph 2023-0 Yes 4647 1{tbl} Take 1 [facility] en-codeine 4-27 tablet by ity of (TYLENOL-CO 00:00: mouth [place] DEINE #3) 00 every 4 Medical 300-30 mg (four) Branch tablet hours as needed for Pain (scale 4-6) or Pain (scale 7-10). Indication s: acute pain acetaminoph 2023-0 Yes 4647 1{tbl} Take 1 [facility] en-codeine 4-27 tablet by ity of (TYLENOL-CO 00:00: mouth [place] DEINE #3) 00 every 4 Medical 300-30 mg (four) Branch tablet hours as needed for Pain (scale 4-6) or Pain (scale 7-10). Indication s: acute pain acetaminoph 2023-0 Yes 4647 1{tbl} Take 1 [facility] en-codeine 4-27 tablet by ity of (TYLENOL-CO 00:00: mouth [place] DEINE #3) 00 every 4 Medical 300-30 mg (four) Branch tablet hours as needed for Pain (scale 4-6) or Pain (scale 7-10). Indication s: acute pain acetaminoph 2023-0 Yes 4647 1{tbl} Take 1 [facility] en-codeine 4-27 tablet by ity of (TYLENOL-CO 00:00: mouth [place] DEINE #3) 00 every 4 Medical 300-30 mg (four) Branch tablet hours as needed for Pain (scale 4-6) or Pain (scale 7-10). Indication s: acute pain acetaminoph 2023-0 Yes 4647 1{tbl} Take 1 [facility] en-codeine 4-27 tablet by ity of (TYLENOL-CO 00:00: mouth [place] DEINE #3) 00 every 4 Medical 300-30 mg (four) Branch tablet hours as needed for Pain (scale 4-6) or Pain (scale 7-10). Indication s: acute pain acetaminoph 2023-0 Yes 4647 1{tbl} Take 1 [facility] en-codeine 4-27 tablet by ity of (TYLENOL-CO 00:00: mouth [place] DEINE #3) 00 every 4 Medical 300-30 mg (four) Branch tablet hours as needed for Pain (scale 4-6) or Pain (scale 7-10). Indication s: acute pain acetaminoph 2023-0 Yes 4647 1{tbl} Take 1 [facility] en-codeine 4-27 tablet by ity of (TYLENOL-CO 00:00: mouth [place] DEINE #3) 00 every 4 Medical 300-30 mg (four) Branch tablet hours as needed for Pain (scale 4-6) or Pain (scale 7-10). Indication s: acute pain acetaminoph 2023-0 Yes 4647 1{tbl} Take 1 [facility] en-codeine 4-27 tablet by ity of (TYLENOL-CO 00:00: mouth [place] DEINE #3) 00 every 4 Medical 300-30 mg (four) Branch tablet hours as needed for Pain (scale 4-6) or Pain (scale 7-10). Indication s: acute pain acetaminoph 2023-0 Yes 4647 1{tbl} Take 1 [facility] en-codeine 4-27 tablet by ity of (TYLENOL-CO 00:00: mouth [place] DEINE #3) 00 every 4 Medical 300-30 mg (four) Branch tablet hours as needed for Pain (scale 4-6) or Pain (scale 7-10). Indication s: acute pain acetaminoph 2023-0 Yes 4647 1{tbl} Take 1 [facility] en-codeine 4-27 tablet by ity of (TYLENOL-CO 00:00: mouth [place] DEINE #3) 00 every 4 Medical 300-30 mg (four) Branch tablet hours as needed for Pain (scale 4-6) or Pain (scale 7-10). Indication s: acute pain acetaminoph 2023-0 Yes 4647 1{tbl} Take 1 [facility] en-codeine 4-27 tablet by ity of (TYLENOL-CO 00:00: mouth [place] DEINE #3) 00 every 4 Medical 300-30 mg (four) Branch tablet hours as needed for Pain (scale 4-6) or Pain (scale 7-10). Indication s: acute pain acetaminoph 2023-0 Yes 4647 1{tbl} Take 1 [facility] en-codeine 4-27 tablet by ity of (TYLENOL-CO 00:00: mouth [place] DEINE #3) 00 every 4 Medical 300-30 mg (four) Branch tablet hours as needed for Pain (scale 4-6) or Pain (scale 7-10). Indication s: acute pain acetaminoph 2023-0 Yes 4647 1{tbl} Take 1 [facility] en-codeine 4-27 tablet by ity of (TYLENOL-CO 00:00: mouth [place] DEINE #3) 00 every 4 Medical 300-30 mg (four) Branch tablet hours as needed for Pain (scale 4-6) or Pain (scale 7-10). Indication s: acute pain acetaminoph 2023-0 Yes 4647 1{tbl} Take 1 [facility] en-codeine 4-27 tablet by ity of (TYLENOL-CO 00:00: mouth [place] DEINE #3) 00 every 4 Medical 300-30 mg (four) Branch tablet hours as needed for Pain (scale 4-6) or Pain (scale 7-10). Indication s: acute pain acetaminoph 2023-0 Yes 4647 1{tbl} Take 1 [facility] en-codeine 4-27 tablet by ity of (TYLENOL-CO 00:00: mouth [place] DEINE #3) 00 every 4 Medical 300-30 mg (four) Branch tablet hours as needed for Pain (scale 4-6) or Pain (scale 7-10). Indication s: acute pain acetaminoph 2023-0 Yes 4647 1{tbl} Take 1 [facility] en-codeine 4-27 tablet by ity of (TYLENOL-CO 00:00: mouth [place] DEINE #3) 00 every 4 Medical 300-30 mg (four) Branch tablet hours as needed for Pain (scale 4-6) or Pain (scale 7-10). Indication s: acute pain acetaminoph 2023-0 Yes 4647 1{tbl} Take 1 [facility] en-codeine 4-27 tablet by ity of (TYLENOL-CO 00:00: mouth [place] DEINE #3) 00 every 4 Medical 300-30 mg (four) Branch tablet hours as needed for Pain (scale 4-6) or Pain (scale 7-10). Indication s: acute pain acetaminoph 2023-0 Yes 4647 1{tbl} Take 1 [facility] en-codeine 4-27 tablet by ity of (TYLENOL-CO 00:00: mouth [place] DEINE #3) 00 every 4 Medical 300-30 mg (four) Branch tablet hours as needed for Pain (scale 4-6) or Pain (scale 7-10). Indication s: acute pain acetaminoph 2023-0 Yes 4647 1{tbl} Take 1 [facility] en-codeine 4-27 tablet by ity of (TYLENOL-CO 00:00: mouth [place] DEINE #3) 00 every 4 Medical 300-30 mg (four) Branch tablet hours as needed for Pain (scale 4-6) or Pain (scale 7-10). Indication s: acute pain acetaminoph 2023-0 Yes 4647 1{tbl} Take 1 [facility] en-codeine 4-27 tablet by ity of (TYLENOL-CO 00:00: mouth [place] DEINE #3) 00 every 4 Medical 300-30 mg (four) Branch tablet hours as needed for Pain (scale 4-6) or Pain (scale 7-10). Indication s: acute pain acetaminoph 2023-0 Yes 4647 1{tbl} Take 1 [facility] en-codeine 4-27 tablet by ity of (TYLENOL-CO 00:00: mouth [place] DEINE #3) 00 every 4 Medical 300-30 mg (four) Branch tablet hours as needed for Pain (scale 4-6) or Pain (scale 7-10). Indication s: acute pain acetaminoph 2023-0 Yes 4647 1{tbl} Take 1 [facility] en-codeine 4-27 tablet by ity of (TYLENOL-CO 00:00: mouth [place] DEINE #3) 00 every 4 Medical 300-30 mg (four) Branch tablet hours as needed for Pain (scale 4-6) or Pain (scale 7-10). Indication s: acute pain acetaminoph 2023-0 Yes 4647 1{tbl} Take 1 [facility] en-codeine 4-27 tablet by ity of (TYLENOL-CO 00:00: mouth [place] DEINE #3) 00 every 4 Medical 300-30 mg (four) Branch tablet hours as needed for Pain (scale 4-6) or Pain (scale 7-10). Indication s: acute pain acetaminoph 2023-0 Yes 4647 1{tbl} Take 1 [facility] en-codeine 4-27 tablet by ity of (TYLENOL-CO 00:00: mouth [place] DEINE #3) 00 every 4 Medical 300-30 mg (four) Branch tablet hours as needed for Pain (scale 4-6) or Pain (scale 7-10). Indication s: acute pain acetaminoph 2023-0 Yes 4647 1{tbl} Take 1 [facility] en-codeine 4-27 tablet by ity of (TYLENOL-CO 00:00: mouth [place] DEINE #3) 00 every 4 Medical 300-30 mg (four) Branch tablet hours as needed for Pain (scale 4-6) or Pain (scale 7-10). Indication s: acute pain acetaminoph 2023-0 Yes 4647 1{tbl} Take 1 [facility] en-codeine 4-27 tablet by ity of (TYLENOL-CO 00:00: mouth [place] DEINE #3) 00 every 4 Medical 300-30 mg (four) Branch tablet hours as needed for Pain (scale 4-6) or Pain (scale 7-10). Indication s: acute pain acetaminoph 2023-0 Yes 4647 1{tbl} Take 1 [facility] en-codeine 4-27 tablet by ity of (TYLENOL-CO 00:00: mouth [place] DEINE #3) 00 every 4 Medical 300-30 mg (four) Branch tablet hours as needed for Pain (scale 4-6) or Pain (scale 7-10). Indication s: acute pain acetaminoph 2023-0 Yes 4647 1{tbl} Take 1 [facility] en-codeine 4-27 tablet by ity of (TYLENOL-CO 00:00: mouth [place] DEINE #3) 00 every 4 Medical 300-30 mg (four) Branch tablet hours as needed for Pain (scale 4-6) or Pain (scale 7-10). Indication s: acute pain omeprazole 2023-0 Yes 40mg Take 1 Unive rs 40 mg 4-17 capsule by ity of capsule 15:48: mouth in [place] 19 the Medical morning. Branch omeprazole 2023-0 Yes 40mg Take 1 Unive rs 40 mg 4-17 capsule by ity of capsule 15:48: mouth in [place] [address] the Medical morning. Branch omeprazole 2023-0 Yes 40mg Take 1 Un[facility] rs 40 mg 4-17 capsule by ity of capsule 15:48: mouth in [place] [address] the Medical morning. Branch omeprazole 2023-0 Yes 40mg Take 1 Un[facility] rs 40 mg 4-17 capsule by ity of capsule 15:48: mouth in [place] [address] the Medical morning. Branch omeprazole 2023-0 Yes 40mg Take 1 Unive rs 40 mg 4-17 capsule by ity of capsule 15:48: mouth in [place] [address] the Medical morning. Branch ALPRAZolam 2023-0 Yes 1mg Take 1 Unive rs 1 mg tablet 4-17 tablet by ity of 15:46: mouth in [place] [address] the Medical morning Branch and 1 tablet at noon and 1 tablet in the evening. loratadine 2023-0 Yes 10mg Take 1 Unive rs 10 mg 4-17 tablet by ity of tablet 15:46: mouth in [place] [address] the Medical morning. Branch aspirin 81 3-0 Yes 81mg Take 1 Unive rs mg chewable 4-17 tablet by ity of tablet 15:46: mouth in [place] [address] the Medical morning. Branch lisinopril 3-0 Yes Take by Univ ers 10 mg 4-17 mouth ity of tablet 15:46: daily. [address] albuterol 3-0 Yes 1.25mg Use 3 mL Un [facility]ala 1.25 mg/3 4-17 as ity of mL 15:46: directed [place] nebulizer every 6 Medical solution (six) Branch hours as needed for Wheezing. ALPRAZolam 3-0 Yes 1mg Take 1 Unive rs 1 mg tablet 4-17 tablet by ity of 15:46: mouth in [place] [address] the Medical morning Branch and 1 tablet at noon and 1 tablet in the evening. loratadine 2023-0 Yes 10mg Take 1 Unive rs 10 mg 4-17 tablet by ity of tablet 15:46: mouth in [place] [address] the Medical morning. Branch aspirin 81 3-0 Yes 81mg Take 1 Unive rs mg chewable 4-17 tablet by ity of tablet 15:46: mouth in [place] [address] the Medical morning. Branch lisinopril 3-0 Yes Take by [facility] ers 10 mg 4-17 mouth ity of tablet 15:46: daily. [place] [address] Medical Branch albuterol 3-0 Yes 1.25mg Use 3 mL Un lala 1.25 mg/3 4-17 as ity of mL 15:46: directed [place] nebulizer 05 every 6 Medical solution (six) Branch hours as needed for Wheezing. ALPRAZolam 2023-0 Yes 1mg Take 1 Unive rs 1 mg tablet 4-17 tablet by ity of 15:46: mouth in [place] [address] the Medical morning Branch and 1 tablet at noon and 1 tablet in the evening. loratadine 2023-0 Yes 10mg Take 1 Unive rs 10 mg 4-17 tablet by ity of tablet 15:46: mouth in [place] [address] the Medical morning. Branch aspirin 81 3-0 Yes 81mg Take 1 Unive rs mg chewable 4-17 tablet by ity of tablet 15:46: mouth in [place] [address] the Medical morning. Branch lisinopril 3-0 Yes Take by Univ ers 10 mg 4-17 mouth ity of tablet 15:46: daily. [address] Branch albuterol 3-0 Yes 1.25mg Use 3 mL Un [facility] 1.25 mg/3 4-17 as ity of mL 15:46: directed [place] nebulizer 05 every 6 Medical solution (six) Branch hours as needed for Wheezing. ALPRAZolam 3-0 Yes 1mg Take 1 Unive rs 1 mg tablet 4-17 tablet by ity of 15:46: mouth in [place] [address] [facility] morning Branch and 1 tablet at noon and 1 tablet in the evening. loratadine 2023-0 Yes 10mg Take 1 Unive rs 10 mg 4-17 tablet by ity of tablet 15:46: mouth in [place] [address] the Medical morning. Branch aspirin 81 3-0 Yes 81mg Take 1 Unive rs mg chewable 4-17 tablet by ity of tablet 15:46: mouth in [place] [address] the Medical morning. Branch lisinopril 2023-0 Yes Take by Univ ers 10 mg 4-17 mouth ity of tablet 15:46: daily. [address] Branch albuterol 3-0 Yes 1.25mg Use 3 mL [facility] 1.25 mg/3 4-17 as ity of mL 15:46: directed [place] nebulizer 05 every 6 Medical solution (six) Branch hours as needed for Wheezing. ALPRAZolam 0 Yes 1mg Take 1 Unive rs 1 mg tablet 4-17 tablet by ity of 15:46: mouth in [place] [address] the Medical morning Branch and 1 tablet at noon and 1 tablet in the evening. loratadine 0 Yes 10mg Take 1 Unive rs 10 mg 4-17 tablet by ity of tablet 15:46: mouth in [place] [address] the Medical morning. Branch aspirin 81 2022-0 Yes 81mg Take 1 Unive rs mg chewable 4-17 tablet by ity of tablet 15:46: mouth in [place] [address] the Medical morning. Branch lisinopril Yes Take by Univ ers 10 mg 4-17 mouth ity of tablet 15:46: daily. [address] Branch albuterol 0 Yes 1.25mg Use 3 mL [facility] 1.25 mg/3 4-17 as ity of mL 15:46: directed [place] nebulizer 05 every 6 Medical solution (six) Branch hours as needed for Wheezing. spironolact 0 Yes 1{tbl} Take 1 [facility] one-hydroch 4-11 tablet by ity of lorothiazid 00:00: mouth in [place] e 25-25 mg 00 the Medical per tablet morning. [facility] spironolact Yes 1{tbl} Take 1 [facility] one-hydroch 4-11 tablet by ity of lorothiazid 00:00: mouth in [place] 25-25 mg 00 the Medical per tablet morning. [facility] spironolact 0 Yes 1{tbl} Take 1 [facility] one-hydroch 4-11 tablet by ity of lorothiazid 00:00: mouth [place] 25-25 mg 00 the Medical per tablet morning. [facility] spironolact 2022-0 Yes 1{tbl} Take 1 [facility] one-hydroch 4-11 tablet by ity of lorothiazid 00:00: mouth in [place] 25-25 mg 00 the Medical per tablet morning. [facility] spironolact 2022-0 Yes 1{tbl} Take 1 [facility] one-hydroch 4-11 tablet by ity of lorothiazid 00:00: mouth in [place] 25-25 mg 00 the Medical per tablet morning. [facility] spironolact 2022-0 Yes 1{tbl} Take 1 [facility] one-hydroch 4-11 tablet by ity of lorothiazid 00:00: mouth [place] 25-25 mg 00 the Medical per tablet morning. [facility] spironolact 2022-0 Yes 1{tbl} Take 1 [facility] one-hydroch 4-11 tablet by ity of lorothiazid 00:00: mouth [place] 25-25 mg 00 the Medical per tablet morning. [facility] spironolact 2022-0 Yes 1{tbl} Take 1 [facility] one-hydroch 4-11 tablet by ity of lorothiazid 00:00: mouth [place] 25-25 mg 00 the Medical per tablet morning. [facility] spironolact 2022-0 Yes 1{tbl} Take 1 [facility] one-hydroch 4-11 tablet by ity of lorothiazid 00:00: mouth [place] 25-25 mg 00 the Medical per tablet morning. [facility] spironolact 2022-0 Yes 1{tbl} Take 1 [facility] one-hydroch 4-11 tablet by ity of lorothiazid 00:00: mouth [place] 25-25 mg 00 the Medical per tablet morning. [facility] spironolact 2022-0 Yes 1{tbl} Take 1 [facility] one-hydroch 4-11 tablet by ity of lorothiazid 00:00: mouth [place] 25-25 mg 00 the Medical per tablet morning. [facility] spironolact 2022-0 Yes 1{tbl} Take 1 [facility] one-hydroch 4-11 tablet by ity of lorothiazid 00:00: mouth [place] 25-25 mg 00 the Medical per tablet morning. [facility] spironolact 2022-0 Yes 1{tbl} Take 1 [facility] one-hydroch 4-11 tablet by ity of lorothiazid 00:00: mouth [place] 25-25 mg 00 the Medical per tablet morning. [facility] spironolact 2022-0 Yes 1{tbl} Take 1 [facility] one-hydroch 4-11 tablet by ity of lorothiazid 00:00: mouth [place] 25-25 mg 00 the Medical per tablet morning. [facility] spironolact 2022-0 Yes 1{tbl} Take 1 [facility] one-hydroch 4-11 tablet by ity of lorothiazid 00:00: mouth [place] 25-25 mg 00 the Medical per tablet morning. [facility] spironolact 2022-0 Yes 1{tbl} Take 1 [facility] one-hydroch 4-11 tablet by ity of lorothiazid 00:00: mouth [place] 25-25 mg 00 the Medical per tablet morning. [facility] spironolact 2022-0 Yes 1{tbl} Take 1 [facility] one-hydroch 4-11 tablet by ity of lorothiazid 00:00: mouth [place] 25-25 mg 00 the Medical per tablet morning. [facility] spironolact 2022-0 Yes 1{tbl} Take 1 [facility] one-hydroch 4-11 tablet by ity of lorothiazid 00:00: mouth [place] 25-25 mg 00 the Medical per tablet morning. [facility] spironolact 2022-0 Yes 1{tbl} Take 1 [facility] one-hydroch 4-11 tablet by ity of lorothiazid 00:00: mouth [place] 25-25 mg 00 the Medical per tablet morning. [facility] spironolact 2022-0 Yes 1{tbl} Take 1 [facility] one-hydroch 4-11 tablet by ity of lorothiazid 00:00: mouth [place] 25-25 mg 00 the Medical per tablet morning. [facility] spironolact 2022-0 Yes 1{tbl} Take 1 [facility] one-hydroch 4-11 tablet by ity of lorothiazid 00:00: mouth [place] 25-25 mg 00 the Medical per tablet morning. [facility] spironolact 2022-0 Yes 1{tbl} Take 1 [facility] one-hydroch 4-11 tablet by ity of lorothiazid 00:00: mouth [place] 25-25 mg 00 the Medical per tablet morning. [facility] spironolact 2022-0 Yes 1{tbl} Take 1 [facility] one-hydroch 4-11 tablet by ity of lorothiazid 00:00: mouth [place] 25-25 mg 00 the Medical per tablet morning. [facility] spironolact 2022-0 Yes 1{tbl} Take 1 [facility] one-hydroch 4-11 tablet by ity of lorothiazid 00:00: mouth [place] 25-25 mg 00 the Medical per tablet morning. [facility] spironolact 2022-0 Yes 1{tbl} Take 1 [facility] one-hydroch 4-11 tablet by ity of lorothiazid 00:00: mouth [place] 25-25 mg 00 the Medical per tablet morning. [facility] spironolact 2022-0 Yes 1{tbl} Take 1 [facility] one-hydroch 4-11 tablet by ity of lorothiazid 00:00: mouth [place] 25-25 mg 00 the Medical per tablet morning. [facility] spironolact 2022-0 Yes 1{tbl} Take 1 [facility] one-hydroch 4-11 tablet by ity of lorothiazid 00:00: mouth [place] 25-25 mg 00 the Medical per tablet morning. [facility] spironolact 2022-0 Yes 1{tbl} Take 1 [facility] one-hydroch 4-11 tablet by ity of lorothiazid 00:00: mouth [place] 25-25 mg 00 the Medical per tablet morning. [facility] spironolact 2022-0 Yes 1{tbl} Take 1 [facility] one-hydroch 4-11 tablet by ity of lorothiazid 00:00: mouth [place] 25-25 mg 00 the Medical per tablet morning. [facility] spironolact 2022-0 Yes 1{tbl} Take 1 [facility] one-hydroch 4-11 tablet by ity of lorothiazid 00:00: mouth [place] 25-25 mg 00 the Medical per tablet morning. [facility] spironolact 2022-0 Yes 1{tbl} Take 1 Un [facility] one-hydroch 4-11 tablet by ity of lorothiazid 00:00: mouth [place] 25-25 mg 00 the Medical per tablet morning. [facility] spironolact 2022-0 Yes 1{tbl} Take 1 [facility] one-hydroch 4-11 tablet by ity of lorothiazid 00:00: mouth [place] 25-25 mg 00 the Medical per tablet morning. [facility] spironolact 2022-0 Yes 1{tbl} Take 1 [facility] one-hydroch 4-11 tablet by ity of lorothiazid 00:00: mouth [place] 25-25 mg 00 the Medical per tablet morning. [facility] spironolact 0 Yes 1{tbl} Take 1 [facility] one-hydroch 4-11 tablet by ity of lorothiazid 00:00: mouth [place] 25-25 mg 00 the Medical per tablet morning. [facility] spironolact 0 Yes 1{tbl} Take 1 [facility] one-hydroch 4-11 tablet by ity of lorothiazid 00:00: mouth [place] 25-25 mg 00 the Medical per tablet morning. [facility] ALPRAZolam Yes 1mg Take 1 Unive rs 1 mg tablet 4-04 tablet by ity of 15:05: mouth in [place] [address] the Medical morning Branch and 1 tablet at noon and 1 tablet in the evening. omeprazole 2022-0 Yes 40mg Take 1 Un[facility] rs 40 mg 4-04 capsule by ity of capsule 15:05: mouth in [place] [address] the Medical morning. Branch loratadine 2022-0 Yes 10mg Take 1 Un[facility] rs 10 mg 4-04 tablet by ity of tablet 15:05: mouth in [place] [address] the Medical morning. Branch aspirin 81 2022-0 Yes 81mg Take 1 Unive rs mg chewable 4-04 tablet by ity of tablet 15:05: mouth in [place] [address] the Medical morning. Branch lisinopril 2022-0 Yes Take by [facility] ers 10 mg 4-04 mouth ity of tablet 15:05: daily. [place] [address] Medical Branch albuterol 2022-0 Yes 1.25mg Use 3 mL [facility] 1.25 mg/3 4-04 as ity of mL 15:05: directed [place] nebulizer 28 every 6 Medical solution (six) Branch hours as needed for Wheezing. ALPRAZolam 2023-0 Yes 1mg Take 1 Unive rs 1 mg tablet 4-04 tablet by ity of 15:05: mouth in [place] [address] the Medical morning Branch and 1 tablet at noon and 1 tablet in the evening. omeprazole 2023-0 Yes 40mg Take 1 Unive rs 40 mg 4-04 capsule by ity of capsule 15:05: mouth in [place] [address] the Medical morning. Branch loratadine 2023-0 Yes 10mg Take 1 Unive rs 10 mg 4-04 tablet by ity of tablet 15:05: mouth in [place] [address] the Medical morning. Branch aspirin 81 2023-0 Yes 81mg Take 1 Unive rs mg chewable 4-04 tablet by ity of tablet 15:05: mouth in [place] [address] the Medical morning. Branch lisinopril 3-0 Yes Take by [facility] ers 10 mg 4-04 mouth ity of tablet 15:05: daily. [place] [address] Medical Branch albuterol 2023-0 Yes 1.25mg Use 3 mL [facility] 1.25 mg/3 4-04 as ity of mL 15:05: directed [place] nebulizer every 6 Medical solution (six) Branch hours as needed for Wheezing. ALPRAZolam 2023-0 Yes 1mg Take 1 Unive rs 1 mg tablet 4-04 tablet by ity of 15:05: mouth in [place] [address] the Medical morning Branch and 1 tablet at noon and 1 tablet in the evening. omeprazole 2023-0 Yes 40mg Take 1 Unive rs 40 mg 4-04 capsule by ity of capsule 15:05: mouth in [place] [address] the Medical morning. Branch loratadine 2023-0 Yes 10mg Take 1 Unive rs 10 mg 4-04 tablet by ity of tablet 15:05: mouth in [place] [address] the Medical morning. Branch aspirin 81 2023-0 Yes 81mg Take 1 Unive rs mg chewable 4-04 tablet by ity of tablet 15:05: mouth in [place] [address] the Medical morning. Branch lisinopril 2023-0 Yes Take by [facility] 10 mg 4-04 mouth ity of tablet 15:05: daily. [place] [address] Medical Branch albuterol 2023-0 Yes 1.25mg Use 3 mL [facility] 1.25 mg/3 4-04 as ity of mL 15:05: directed [place] nebulizer 28 every 6 Medical solution (six) Branch hours as needed for Wheezing. ALPRAZolam 2023-0 Yes 1mg Take 1 Unive rs 1 mg tablet 4-04 tablet by ity of 15:05: mouth in [place] [address] the Medical morning Branch and 1 tablet at noon and 1 tablet in the evening. omeprazole 2023-0 Yes 40mg Take 1 Unive rs 40 mg 4-04 capsule by ity of capsule 15:05: mouth in [place] [address] the Medical morning. Branch loratadine 2023-0 Yes 10mg Take 1 Unive rs 10 mg 4-04 tablet by ity of tablet 15:05: mouth in [place] [address] the Medical morning. Branch aspirin 81 2023-0 Yes 81mg Take 1 Unive rs mg chewable 4-04 tablet by ity of tablet 15:05: mouth in [place] [address] the Medical morning. Branch lisinopril 2023-0 Yes Take by [facility] 10 mg 4-04 mouth ity of tablet 15:05: daily. [place] [address] Medical Branch albuterol 2023-0 Yes 1.25mg Use 3 mL [facility] 1.25 mg/3 4-04 as ity of mL 15:05: directed [place] nebulizer 28 every 6 Medical solution (six) Branch hours as needed for Wheezing. ALPRAZolam 2023-0 Yes 1mg Take 1 Unive rs 1 mg tablet 4-04 tablet by ity of 15:05: mouth in [place] [address] the Medical morning Branch and 1 tablet at noon and 1 tablet in the evening. omeprazole 2023-0 Yes 40mg Take 1 Unive rs 40 mg 4-04 capsule by ity of capsule 15:05: mouth in [place] [address] the Medical morning. Branch loratadine 2023-0 Yes 10mg Take 1 [facility] rs 10 mg 4-04 tablet by ity of tablet 15:05: mouth in [place] [address] the Medical morning. Branch aspirin 81 2023-0 Yes 81mg Take 1 Unive rs mg chewable 4-04 tablet by ity of tablet 15:05: mouth in [place] [address] the Medical morning. Branch lisinopril 2023-0 Yes Take by Univ ers 10 mg 4-04 mouth ity of tablet 15:05: daily. [address] Branch albuterol 3-0 Yes 1.25mg Use 3 mL [facility] 1.25 mg/3 4-04 as ity of mL 15:05: directed [place] nebulizer 28 every 6 Medical solution (six) Branch hours as needed for Wheezing. acetaminoph 3-0 Yes 2745 1{tbl} Take 1 [facility] [...] (scale 7-10). Indication s: chronic pain acetaminoph 3-0 Yes 2745 1{tbl} Take 1 [facility] [...] 2023-0 Yes 2745 1{tbl} Take 1 [facility] en-codeine 4-03 tablet by ity of (TYLENOL-CO [...] by ity of capsule 00:00: mouth in [address] morning [place] and 1 capsule in the evening. celecoxib 2023-0 Yes 100mg Take 1 Unive rs 100 mg 3-21 capsule by ity of capsule 00:00: mouth in [address] morning [place] and 1 capsule in the evening. celecoxib 2023-0 Yes 100mg Take 1 Unive rs 100 mg 3-21 capsule by ity of capsule 00:00: mouth in [address] and 1 capsule in the evening. celecoxib 2023-0 Yes 100mg Take 1 Unive rs 100 mg 3-21 capsule by ity of capsule 00:00: mouth in [address] morning [place] and 1 capsule in the evening. celecoxib 2023-0 Yes 100mg Take 1 Unive rs 100 mg 3-21 capsule by ity of capsule 00:00: mouth in [address] morning [place] and 1 capsule in the evening. celecoxib 2023-0 Yes 100mg Take 1 Unive rs 100 mg 3-21 capsule by ity of capsule 00:00: mouth in [address] and 1 capsule in the evening. celecoxib 2023-0 Yes 100mg Take 1 Unive rs 100 mg 3-21 capsule by ity of capsule 00:00: mouth in [address] and 1 capsule in the evening. celecoxib 2023-0 Yes 100mg Take 1 Unive rs 100 mg 3-21 capsule by ity of capsule 00:00: mouth in [address] Medical morning [place] and 1 capsule in the evening. celecoxib 2023-0 Yes 100mg Take 1 Unive rs 100 mg 3-21 capsule by ity of capsule 00:00: mouth in [place] [address] the Medical morning [place] and 1 capsule in the evening. celecoxib 2023-0 Yes 100mg Take 1 Unive rs 100 mg 3-21 capsule by ity of capsule 00:00: mouth in [place] [address] the Medical morning [place] and 1 capsule in the evening. celecoxib 2023-0 Yes 100mg Take 1 Unive rs 100 mg 3-21 capsule by ity of capsule 00:00: mouth in [address] Medical morning [place] and 1 capsule in the evening. celecoxib 2023-0 Yes 100mg Take 1 Unive rs 100 mg 3-21 capsule by ity of capsule 00:00: mouth in [address] morning [place] and 1 capsule in the evening. celecoxib 2023-0 Yes 100mg Take 1 Un[facility] rs 100 mg 3-21 capsule by ity of capsule 00:00: mouth in [address] morning [place] and 1 capsule in the evening. celecoxib 2023-0 Yes 100mg Take 1 Unive rs 100 mg 3-21 capsule by ity of capsule 00:00: mouth in [address] morning [place] and 1 capsule in the evening. celecoxib 2023-0 Yes 100mg Take 1 Un[facility] rs 100 mg 3-21 capsule by ity of capsule 00:00: mouth in [address] morning [place] and 1 capsule in the evening. celecoxib 2023-0 Yes 100mg Take 1 Un[facility] rs 100 mg 3-21 capsule by ity of capsule 00:00: mouth in [address] morning [place] and 1 capsule in the evening. celecoxib 2023-0 Yes 100mg Take 1 Un[facility] rs 100 mg 3-21 capsule by ity of capsule 00:00: mouth in [address] morning [place] and 1 capsule in the evening. celecoxib 2023-0 Yes 100mg Take 1 Un[facility] rs 100 mg 3-21 capsule by ity of capsule 00:00: mouth in [address] morning [place] and 1 capsule in the evening. celecoxib 2023-0 Yes 100mg Take 1 [facility] rs 100 mg 3-21 capsule by ity of capsule 00:00: mouth in [address] morning [place] and 1 capsule in the evening. celecoxib 2023-0 Yes 100mg Take 1 Unive rs 100 mg 3-21 capsule by ity of capsule 00:00: mouth in [place] [address] the Medical morning Branch and 1 capsule in the evening. celecoxib 2023-0 Yes 100mg Take 1 Unive rs 100 mg 3-21 capsule by ity of capsule 00:00: mouth in [place] [address] the Medical morning Branch and 1 capsule in the evening. celecoxib 2023-0 Yes 100mg Take 1 Unive rs 100 mg 3-21 capsule by ity of capsule 00:00: mouth in [place] [address] the Medical morning Branch and 1 capsule in the evening. celecoxib 2023-0 Yes 100mg Take 1 Unive rs 100 mg 3-21 capsule by ity of capsule 00:00: mouth in [place] [address] the Medical morning Branch and 1 capsule in the evening. celecoxib 2023-0 Yes 100mg Take 1 Unive rs 100 mg 3-21 capsule by ity of capsule 00:00: mouth in [place] [address] the Medical morning [place] and 1 capsule in the evening. celecoxib 2023-0 Yes 100mg Take 1 Unive rs 100 mg 3-21 capsule by ity of capsule 00:00: mouth in [address] Medical morning [place] and 1 capsule in the evening. celecoxib 2023-0 Yes 100mg Take 1 Unive rs 100 mg 3-21 capsule by ity of capsule 00:00: mouth in [place] [address] the Medical morning [place] and 1 capsule in the evening. celecoxib 2023-0 Yes 100mg Take 1 Unive rs 100 mg 3-21 capsule by ity of capsule 00:00: mouth in [place] [address] the Medical morning [place] and 1 capsule in the evening. celecoxib 2023-0 Yes 100mg Take 1 Unive rs 100 mg 3-21 capsule by ity of capsule 00:00: mouth in [address] Medical morning [place] and 1 capsule in the evening. celecoxib 2023-0 Yes 100mg Take 1 Unive rs 100 mg 3-21 capsule by ity of capsule 00:00: mouth in [place] [address] the Medical morning [place] and 1 capsule in the evening. celecoxib 2023-0 Yes 100mg Take 1 Unive rs 100 mg 3-21 capsule by ity of capsule 00:00: mouth in [address] Medical morning [place] and 1 capsule in the evening. celecoxib 2023-0 Yes 100mg Take 1 Unive rs 100 mg 3-21 capsule by ity of capsule 00:00: mouth in [place] 00 the Medical morning Branch and 1 capsule in the evening. celecoxib 2023-0 Yes 100mg Take 1 Unive rs 100 mg 3-21 capsule by ity of capsule 00:00: mouth in [place] [address] the Medical morning [place] and 1 capsule in the evening. celecoxib 2023-0 Yes 100mg Take 1 Unive rs 100 mg 3-21 capsule by ity of capsule 00:00: mouth in [place] [address] the Medical morning [place] and 1 capsule in the evening. celecoxib 2023-0 Yes 100mg Take 1 Unive rs 100 mg 3-21 capsule by ity of capsule 00:00: mouth in [place] [address] the Medical morning [place] and 1 capsule in the evening. celecoxib 2023-0 Yes 100mg Take 1 Unive rs 100 mg 3-21 capsule by ity of capsule 00:00: mouth in [place] [address] [facility] morning [place] and 1 capsule in the evening. celecoxib 2023-0 Yes 100mg Take 1 Unive rs 100 mg 3-21 capsule by ity of capsule 00:00: mouth in [place] [address] the [facility] morning [place] and 1 capsule in the evening. celecoxib 2023-0 Yes 100mg Take 1 Unive rs 100 mg 3-21 capsule by ity of capsule 00:00: mouth in [place] [address] the [facility] morning [place] and 1 capsule in the evening. celecoxib 2023-0 Yes 100mg Take 1 Unive rs 100 mg 3-21 capsule by ity of capsule 00:00: mouth in [place] [address] the [facility] morning [place] and 1 capsule in the evening. celecoxib 2023-0 Yes 100mg Take 1 Unive rs 100 mg 3-21 capsule by ity of capsule 00:00: mouth in [place] [address] [facility] and 1 capsule in the evening. celecoxib 2023-0 Yes 100mg Take 1 Unive rs 100 mg 3-21 capsule by ity of capsule 00:00: mouth in [place] [address] [facility] morning [place] and 1 capsule in the evening. oxyCODONE-a 2022- No 2{tbl} Uni vers cetaminophe 05-20 ity of n 05:00: 16:59 [place] (PERCOCET) 00 :00 Medical 5-325 mg Branch per tablet 2 tablet tranexamic 2022-0 2022- No 1000mg Univ ers acid 05-2020 ity of (CYKLOKAPRO 05:00: 16:59 [place] N) 1,000 mg 00 :00 Medical in NaCl Branch 0.9% (NS) 250 mL piggyback oxyCODONE-a 2022- No 2{tbl} Uni vers cetaminophe 3-20 -20 ity of n 05:00: 16:59 [place] (PERCOCET) 00 :00 Medical 5-325 mg Branch per tablet 2 tablet tranexamic 2022- No 1000mg Univ ers acid 3-20 -20 ity of (CYKLOKAPRO 05:00: 16:59 [place] N) 1,000 mg 00 :00 Medical in NaCl Branch 0.9% (NS) 250 mL piggyback oxyCODONE-a 2022- No 2{tbl} Uni vers cetaminophe 3-20 05-20 ity of n 05:00: 16:59 [place] (PERCOCET) 00 :00 Medical 5-325 mg Branch per tablet 2 tablet tranexamic 2022- No 1000mg Univ ers acid 3-20 05-20 ity of (CYKLOKAPRO 05:00: 16:59 [place] N) 1,000 mg 00 :00 Medical in NaCl Branch 0.9% (NS) 250 mL piggyback oxyCODONE-a 2022- No 2{tbl} Uni vers cetaminophe 3-20 05-20 ity of n 05:00: 16:59 [place] (PERCOCET) 00 :00 Medical 5-325 mg Branch per tablet 2 tablet tranexamic 2022- No 1000mg Univ ers acid 3-20 05-20 ity of (CYKLOKAPRO 05:00: 16:59 [place] N) 1,000 mg 00 :00 Medical in NaCl Branch 0.9% (NS) 250 mL piggyback oxyCODONE-a 2022- No 2{tbl} Uni vers cetaminophe 3-20 -20 ity of n 05:00: 16:59 [place] (PERCOCET) 00 :00 Medical 5-325 mg Branch per tablet 2 tablet tranexamic 2022- No 1000mg Univ ers acid 3-20 -20 ity of (CYKLOKAPRO 05:00: 16:59 [place] N) 1,000 mg 00 :00 Medical in NaCl Branch 0.9% (NS) 250 mL piggyback oxyCODONE-a 2022- No 2{tbl} Uni vers cetaminophe 05-20 ity of n 05:00: 16:59 [place] (PERCOCET) 00 :00 Medical 5-325 mg Branch per tablet 2 tablet tranexamic 0 2022- No 1000mg Univ ers acid 05-2020 ity of (CYKLOKAPRO 05:00: 16:59 [place] N) 1,000 mg 00 :00 Medical in NaCl Branch 0.9% (NS) 250 mL piggyback predniSONE 3-0 Yes 10mg Take 1 Unive rs 10 mg 3-13 tablet by ity of tablet 00:00: mouth in [place] 00 the Medical morning. Branch predniSONE 2023-0 Yes 10mg Take 1 Unive rs 10 mg 3-13 tablet by ity of tablet 00:00: mouth in [place] 00 the Medical morning. Branch predniSONE 2023-0 Yes 10mg Take 1 Unive rs 10 mg 3-13 tablet by ity of tablet 00:00: mouth in [place] 00 the Medical morning. Branch predniSONE 2023-0 Yes 10mg Take 1 Unive rs 10 mg 3-13 tablet by ity of tablet 00:00: mouth in [place] 00 the Medical morning. Branch predniSONE 2023-0 Yes 10mg Take 1 Unive rs 10 mg 3-13 tablet by ity of tablet 00:00: mouth in [place] 00 the Medical morning. Branch predniSONE 2023-0 Yes 10mg Take 1 Unive rs 10 mg 3-13 tablet by ity of tablet 00:00: mouth in [place] 00 the Medical morning. Branch predniSONE 2023-0 Yes 10mg Take 1 Unive rs 10 mg 3-13 tablet by ity of tablet 00:00: mouth in [place] 00 the Medical morning. Branch predniSONE 2023-0 Yes 10mg Take 1 Unive rs 10 mg 3-13 tablet by ity of tablet 00:00: mouth in [place] 00 the Medical morning. Branch predniSONE 2023-0 Yes 10mg Take 1 Unive rs 10 mg 3-13 tablet by ity of tablet 00:00: mouth in [place] 00 the Medical morning. Branch predniSONE 2023-0 Yes 10mg Take 1 Unive rs 10 mg 3-13 tablet by ity of tablet 00:00: mouth in [place] 00 the Medical morning. Branch predniSONE 2023-0 2023- No 10mg Take 1 Univ ers 10 mg 05-13 tablet by ity of tablet 00:00: 00:00 mouth in [place] 00 :00 the Medical morning. Branch predniSONE 2023-0 2023- No 10mg Take 1 Univ ers 10 mg 05-13 tablet by ity of tablet 00:00: 00:00 mouth in [place] 00 :00 the Medical morning. Branch ipratropium 2023-0 Yes [...] Medical base)/3 mL Branch nebulizer solution ipratropium 3-0 Yes 3mL Inhale 3 [facility] l[facility] -albuteroL 3-12 mL as ity of 0.5 mg-3 00:00: needed. [place] mg(2.5 mg 00 Medical base)/3 mL Branch nebulizer solution ipratropium 3-0 Yes 3mL Inhale 3 Un [facility] -albuteroL 3-12 mL as ity of 0.5 mg-3 00:00: needed. [place] mg(2.5 mg 00 Medical base)/3 mL Branch nebulizer solution ipratropium 3-0 Yes 3mL Inhale 3 Un l[facility] -albuteroL 3-12 mL as ity of 0.5 mg-3 00:00: needed. [place] mg(2.5 mg 00 Medical base)/3 mL Branch nebulizer solution ipratropium 3-0 Yes 3mL Inhale 3 [facility] -albuteroL 3-12 mL as ity of 0.5 mg-3 00:00: needed. [place] mg(2.5 mg 00 Medical base)/3 mL Branch nebulizer solution ipratropium 3-0 Yes 3mL Inhale 3 [facility] -albuteroL 3-12 mL as ity of 0.5 mg-3 00:00: needed. [place] mg(2.5 mg 00 Medical base)/3 mL Branch nebulizer solution ipratropium 3-0 Yes 3mL Inhale 3 Un [facility] -albuteroL 3-12 mL as ity of 0.5 mg-3 00:00: needed. [place] mg(2.5 mg 00 Medical base)/3 mL Branch nebulizer solution traMADoL 50 3-0 Yes 4647 50mg Take 1 Univ ers mg tablet 3-10 tablet by ity o f 00:00: mouth [place] 00 every 4 Medical (four) Branch hours as needed for Pain (scale 7-10). Indication s: acute pain traMADoL 50 3-0 Yes 4647 50mg Take 1 Univ ers mg tablet 3-10 tablet by ity o f 00:00: mouth [place] 00 every 4 Medical (four) Branch hours as needed for Pain (scale 7-10). Indication s: acute pain traMADoL 50 3-0 Yes 4647 50mg Take 1 Univ ers mg tablet 3-10 tablet by ity o f 00:00: mouth [place] 00 every 4 Medical (four) Branch hours as needed for Pain (scale 7-10). Indication s: acute pain traMADoL 50 3-0 Yes 4647 50mg Take 1 Univ ers [...] 7-10). Indication s: acute pain traMADoL 50 3-0 Yes 4647 50mg Take 1 Univ ers mg tablet 3-10 tablet by ity o f 00:00: mouth [place] 00 every 4 Medical (four) Branch hours as needed for Pain (scale 7-10). Indication s: acute pain traMADoL 50 3-0 Yes 4647 50mg Take 1 Univ ers mg tablet 3-10 tablet by ity o f 00:00: mouth [place] 00 every 4 Medical (four) Branch hours as needed for Pain (scale 7-10). Indication s: acute pain traMADoL 50 3-0 Yes 4647 50mg Take 1 Univ ers mg tablet 3-10 tablet by ity o f 00:00: mouth [place] 00 every 4 Medical (four) Branch hours as needed for Pain (scale 7-10). Indication s: acute pain traMADoL 50 3-0 Yes 4647 50mg Take 1 Univ ers [...] Indication s: acute pain traMADoL 50 2022-0 2023- No 4647 50mg Take 1 Uni vers mg tablet 3-10 05-01 tablet by ity of 00:00: 00:00 mouth [place] 00 :00 every 4 Medical (four) Branch hours as needed for Pain (scale 7-10). Indication s: acute pain traMADoL 50 3-0 2023- No 4647 50mg Take 1 Uni vers mg tablet 3-10 05-01 tablet by ity of 00:00: 00:00 mouth [place] 00 :00 every 4 Medical (four) Branch hours as needed for Pain (scale 7-10). Indication s: acute pain levalbutero 2022-2022- No 1.25mg 1.25 mg, Univers l (XOPENEX) 05-08 Inhalation i ty of nebulizer 00:30: 23:44 , ONCE, 1 [place] solution 00 :00 dose, On Medical 1.25 mg 05/07/22 Branch at 1830, Routine diclofenac 2022-0 3- No [id number] 75mg Take 1 Univers 75 mg EC 05-08 9100 tablet by ity o f tablet 00:00: 04:59 mouth in [place] 00 :00 [facility] morning [place] and 1 tablet in the evening. Take with meals. Do all this for 30 days. diclofenac 2022-0 3- No [id number] 75mg Take 1 Univers 75 mg EC 05-08 9100 tablet by ity o f tablet 00:00: 04:59 mouth in [place] 00 :[address] [facility] and 1 tablet in the evening. Take with meals. Do all this for 30 days. diclofenac 2022-0 3- No [id number] 75mg Take 1 Univers 75 mg EC 05-08 9100 tablet by ity o f tablet 00:00: 04:59 mouth in [place] 00 :[address] [facility] and 1 tablet in the evening. Take with meals. Do all this for 30 days. diclofenac 2022-0 3- No [id number] 75mg Take 1 Univers 75 mg EC 05-08 9100 tablet by ity o f tablet 00:00: 04:59 mouth in [place] 00 :[address] [facility] and 1 tablet in the evening. Take with meals. Do all this for 30 days. diclofenac 2022-0 2023- No [id number] 75mg Take 1 Univers 75 mg EC 05-08 9100 tablet by ity o f tablet 00:00: 04:59 mouth in [place] 00 :[address] [facility] and 1 tablet in the evening. Take with meals. Do all this for 30 days. diclofenac 2022-0 2023- No [id number] 75mg Take 1 Univers 75 mg EC 05-08 9100 tablet by ity o f tablet 00:00: 04:59 mouth in [place] 00 :00 the Medical morning Branch and 1 tablet in the evening. Take with meals. Do all this for 30 days. diclofenac 2023-0 2023- No [id number] 75mg Take 1 Univers 75 mg EC 05-08 9100 tablet by ity o f tablet 00:00: 04:59 mouth in [place] 00 :00 the Medical morning Branch and 1 tablet in the evening. Take with meals. Do all this for 30 days. diclofenac 2023-0 2023- No [id number] 75mg Take 1 Univers 75 mg EC 05-08 9100 tablet by ity o f tablet 00:00: 04:59 mouth in [place] 00 :00 the Medical morning Branch and 1 tablet in the evening. Take with meals. Do all this for 30 days. diclofenac 2023-0 2023- No [id number] 75mg Take 1 Univers 75 mg EC 05-08 9100 tablet by ity o f tablet 00:00: 04:59 mouth in [place] 00 :00 the [facility] morning [place] and 1 tablet in the evening. Take with meals. Do all this for 30 days. diclofenac 3-0 2023- No [id number] 75mg Take 1 Univers 75 mg EC 05-08 9100 tablet by ity o f tablet 00:00: 04:59 mouth in [place] 00 :00 the [facility] morning [place] and 1 tablet in the evening. Take with meals. Do all this for 30 days. diclofenac 2023-0 2023- No [id number] 75mg Take 1 Univers 75 mg EC 05-08 9100 tablet by ity o f tablet 00:00: 04:59 mouth in [place] 00 :00 the [facility] morning [place] and 1 tablet in the evening. Take with meals. Do all this for 30 days. diclofenac 2023-0 2023- No [id number] 75mg Take 1 Univers 75 mg EC 05-08 9100 tablet by ity o f tablet 00:00: 04:59 mouth in [place] 00 :00 the [facility] morning [place] and 1 tablet in the evening. Take with meals. Do all this for 30 days. ipratropium 3-0 3- No .5mg 0.5 mg, Un lala (ATROVENT) 05-07 Inhalation it y of 0.02 % 23:45: 23:43 , ONCE, 1 [place] nebulizer 00 :00 dose, On Medica l solution e 05/07/22 Branc h 0.5 mg at 1745, [...] and 2 Sprays in the evening. fluticasone 0 Yes 2{spray Use 2 Un [facility] propionate 3-03 } Sprays in ity of 50 00:00: each [place] mcg/actuati 00 nostril in Me dical on nasal the Branch spray morning and 2 Sprays in the evening. fluticasone 2023-0 Yes 2{spray Use 2 Un l[facility] propionate [...] 20 mg Univers n 20 mg 2-21 02-21 by mouth ity of tablet 09:39: 00:00 daily. [place] 42 :00 Medical Branch atorvastati 2022-0 3- No 20mg Take 20 mg Univers n 20 mg 2-21 02-21 by mouth ity of tablet 09:39: 00:00 daily. [place] 42 :00 Medical Branch ALPRAZolam 2022-0 Yes 1mg Take 1 mg [facility] 1 mg tablet 2-21 by mouth 3 it y of 08:34: (three) [place] [address] times Medical daily. Branch omeprazole 2022-0 Yes 40mg Take 40 mg U nivers 40 mg 2-21 by mouth ity of capsule 08:34: daily. [address] Branch loratadine 2022-0 Yes 10mg Take 10 mg U nivers 10 mg 2-21 by mouth ity of tablet 08:34: daily. [address] Branch aspirin 81 2022-0 Yes 81mg Take 81 mg U nivers mg chewable 2-21 by mouth ity of tablet 08:34: daily. [address] Branch lisinopril 2022-0 Yes Take by Univ ers 10 mg 2-21 mouth ity of tablet 08:34: daily. [address] Branch albuterol 2022-0 Yes 1{ampul Use 1 Univ ers 1.25 mg/3 2-21 e} Ampule as ity o f mL 08:34: directed [place] nebulizer every 6 Medical solution (six) Branch hours as needed for Wheezing. ALPRAZolam 0 Yes 1mg Take 1 mg Un l[facility] 1 mg tablet 2-21 by mouth 3 it y of 08:34: (three) [address] Medical daily. Branch omeprazole 2022-0 Yes 40mg Take 40 mg U nivers 40 mg 2-21 by mouth ity of capsule 08:34: daily. [address] Branch loratadine 2022-0 Yes 10mg Take 10 mg U nivers 10 mg 2-21 by mouth ity of tablet 08:34: daily. [address] Branch aspirin 81 2022-0 Yes 81mg Take 81 mg U nivers mg chewable 2-21 by mouth ity of tablet 08:34: daily. [address] Branch lisinopril 2022-0 Yes Take by Univ ers 10 mg 2-21 mouth ity of tablet 08:34: daily. [address] Branch albuterol 2022-0 Yes 1{ampul Use 1 Univ ers 1.25 mg/3 2-21 e} Ampule as ity o f mL 08:34: directed [place] nebulizer 43 every 6 Medical solution (six) Branch hours as needed for Wheezing. ALPRAZolam 2022-0 Yes 1mg Take 1 mg Un l[facility] 1 mg tablet 2-21 by mouth 3 it y of 08:34: (three) [place] [address] times Medical daily. Branch omeprazole 2022-0 Yes 40mg Take 40 mg U nivers 40 mg 2-21 by mouth ity of capsule 08:34: daily. [address] Branch loratadine 2022-0 Yes 10mg Take 10 mg U nivers 10 mg 2-21 by mouth ity of tablet 08:34: daily. [address] aspirin 81 2022-0 Yes 81mg Take 81 mg U nivers mg chewable 2-21 by mouth ity of tablet 08:34: daily. [address] Branch lisinopril 2022-0 Yes Take by Univ ers 10 mg 2-21 mouth ity of tablet 08:34: daily. [address] albuterol 2022-0 Yes 1{ampul Use 1 Univ ers 1.25 mg/3 2-21 e} Ampule as ity o f mL 08:34: directed [place] nebulizer 43 every 6 Medical solution (six) Branch hours as needed for Wheezing. ALPRAZolam 2022-0 Yes 1mg Take 1 mg Un l[facility] 1 mg tablet 2-21 by mouth 3 it y of 08:34: (three) [place] [address] times Medical daily. Branch omeprazole 2022-0 Yes 40mg Take 40 mg U nivers 40 mg 2-21 by mouth ity of capsule 08:34: daily. [address] Branch loratadine 2022-0 Yes 10mg Take 10 mg U nivers 10 mg 2-21 by mouth ity of tablet 08:34: daily. [address] aspirin 81 2022-0 Yes 81mg Take 81 mg U nivers mg chewable 2-21 by mouth ity of tablet 08:34: daily. [address] Branch lisinopril 2022-0 Yes Take by Univ ers 10 mg 2-21 mouth ity of tablet 08:34: daily. [address] albuterol 2022-0 Yes 1{ampul Use 1 Univ ers 1.25 mg/3 2-21 e} Ampule as ity o f mL 08:34: directed [place] nebulizer 43 every 6 Medical solution (six) Branch hours as needed for Wheezing. ALPRAZolam 2022-0 Yes 1mg Take 1 mg Un lala 1 mg tablet 2-21 by mouth 3 it y of 08:34: (three) [place] [address] times Medical daily. Branch omeprazole 2022-0 Yes 40mg Take 40 mg U nivers 40 mg 2-21 by mouth ity of capsule 08:34: daily. [address] Branch loratadine 2022-0 Yes 10mg Take 10 mg U nivers 10 mg 2-21 by mouth ity of tablet 08:34: daily. [address] aspirin 81 2022-0 Yes 81mg Take 81 mg U nivers mg chewable 2-21 by mouth ity of tablet 08:34: daily. [address] Branch lisinopril 2022-0 Yes Take by Univ ers 10 mg 2-21 mouth ity of tablet 08:34: daily. [address] Branch albuterol 2022-0 Yes 1{ampul Use 1 Univ ers 1.25 mg/3 2-21 e} Ampule as ity o f mL 08:34: directed [place] nebulizer 43 every 6 Medical solution (six) Branch hours as needed for Wheezing. ALPRAZolam 2022-0 Yes 1mg Take 1 mg Un lala 1 mg tablet 2-21 by mouth 3 it y of 08:34: (three) [place] [address] times Medical daily. Branch omeprazole 2022-0 Yes 40mg Take 40 mg U nivers 40 mg 2-21 by mouth ity of capsule 08:34: daily. [address] Branch loratadine 2022-0 Yes 10mg Take 10 mg U nivers 10 mg 2-21 by mouth ity of tablet 08:34: daily. [address] aspirin 81 2022-0 Yes 81mg Take 81 mg U nivers mg chewable 2-21 by mouth ity of tablet 08:34: daily. [address] lisinopril 2022-0 Yes Take by Univ ers 10 mg 2-21 mouth ity of tablet 08:34: daily. [address] Branch albuterol 2022-0 Yes 1{ampul Use 1 Univ ers 1.25 mg/3 2-21 e} Ampule as ity o f mL 08:34: directed [place] nebulizer 43 every 6 Medical solution (six) Branch hours as needed for Wheezing. ALPRAZolam 2022-0 Yes 1mg Take 1 mg Un l[facility] 1 mg tablet 2-21 by mouth 3 it y of 08:34: (three) [place] [address] times Medical daily. Branch omeprazole 2022-0 Yes 40mg Take 40 mg U nivers 40 mg 2-21 by mouth ity of capsule 08:34: daily. [address] Branch loratadine 2022-0 Yes 10mg Take 10 mg U nivers 10 mg 2-21 by mouth ity of tablet 08:34: daily. [address] Branch aspirin 81 2022-0 Yes 81mg Take 81 mg U nivers mg chewable 2-21 by mouth ity of tablet 08:34: daily. [address] Branch lisinopril 2022-0 Yes Take by Univ ers 10 mg 2-21 mouth ity of tablet 08:34: daily. [address] Branch albuterol 2022-0 Yes 1{ampul Use 1 Univ ers 1.25 mg/3 2-21 e} Ampule as ity o f mL 08:34: directed [place] nebulizer 43 every 6 Medical solution (six) Branch hours as needed for Wheezing. ALPRAZolam 2022-0 Yes 1mg Take 1 mg Un lala 1 mg tablet 2-21 by mouth 3 it y of 08:34: (three) [place] [address] times Medical daily. Branch omeprazole 2022-0 Yes 40mg Take 40 mg U nivers 40 mg 2-21 by mouth ity of capsule 08:34: daily. [address] Branch loratadine 2022-0 Yes 10mg Take 10 mg U nivers 10 mg 2-21 by mouth ity of tablet 08:34: daily. [address] Branch aspirin 81 2022-0 Yes 81mg Take 81 mg U nivers mg chewable 2-21 by mouth ity of tablet 08:34: daily. [address] Branch lisinopril 2022-0 Yes Take by Univ ers 10 mg 2-21 mouth ity of tablet 08:34: daily. [address] Branch albuterol 2022-0 Yes 1{ampul Use 1 Univ ers 1.25 mg/3 2-21 e} Ampule as ity o f mL 08:34: directed [place] nebulizer 43 every 6 Medical solution (six) Branch hours as needed for Wheezing. ALPRAZolam 2022-0 Yes 1mg Take 1 mg Un l[facility] 1 mg tablet 2-21 by mouth 3 it y of 08:34: (three) [place] [address] times Medical daily. Branch omeprazole 2022-0 Yes 40mg Take 40 mg U nivers 40 mg 2-21 by mouth ity of capsule 08:34: daily. [address] Branch loratadine 2022-0 Yes 10mg Take 10 mg U nivers 10 mg 2-21 by mouth ity of tablet 08:34: daily. [address] Branch aspirin 81 2022-0 Yes 81mg Take 81 mg U nivers mg chewable 2-21 by mouth ity of tablet 08:34: daily. [address] Branch lisinopril 2022-0 Yes Take by [facility] 10 mg 2-21 mouth ity of tablet 08:34: daily. [address] Branch albuterol 2022-0 Yes 1{ampul Use 1 Univ ers 1.25 mg/3 2-21 e} Ampule as ity o f mL 08:34: directed [place] nebulizer 43 every 6 Medical solution (six) Branch hours as needed for Wheezing. ALPRAZolam 2022-0 Yes 1mg Take 1 mg Un lala 1 mg tablet 2-21 by mouth 3 it y of 08:34: (three) [place] [address] times Medical daily. Branch omeprazole 2022-0 Yes 40mg Take 40 mg U nivers 40 mg 2-21 by mouth ity of capsule 08:34: daily. [address] Branch loratadine 2022-0 Yes 10mg Take 10 mg U nivers 10 mg 2-21 by mouth ity of tablet 08:34: daily. [address] Branch aspirin 81 2022-0 Yes 81mg Take 81 mg U nivers mg chewable 2-21 by mouth ity of tablet 08:34: daily. [address] Branch lisinopril 2022-0 Yes Take by [facility] 10 mg 2-21 mouth ity of tablet 08:34: daily. [address] Branch albuterol 2022-0 Yes 1{ampul Use 1 Univ ers 1.25 mg/3 2-21 e} Ampule as ity o f mL 08:34: directed [place] nebulizer 43 every 6 Medical solution (six) Branch hours as needed for Wheezing. ALPRAZolam 2022-0 Yes 1mg Take 1 mg Un lala 1 mg tablet 2-21 by mouth 3 it y of 08:34: (three) [place] [address] times Medical daily. Branch omeprazole 2022-0 Yes 40mg Take 40 mg U nivers 40 mg 2-21 by mouth ity of capsule 08:34: daily. [address] Branch loratadine 2022-0 Yes 10mg Take 10 mg U nivers 10 mg 2-21 by mouth ity of tablet 08:34: daily. [address] Branch aspirin 81 2022-0 Yes 81mg Take 81 mg U nivers mg chewable 2-21 by mouth ity of tablet 08:34: daily. [address] Branch lisinopril 2022-0 Yes Take by [facility] 10 mg 2-21 mouth ity of tablet 08:34: daily. [address] Branch albuterol 2022-0 Yes 1{ampul Use 1 Univ ers 1.25 mg/3 2-21 e} Ampule as ity o f mL 08:34: directed [place] nebulizer 43 every 6 Medical solution (six) Branch hours as needed for Wheezing. ALPRAZolam 2022-0 Yes 1mg Take 1 mg Un lala 1 mg tablet 2-21 by mouth 3 it y of 08:34: (three) [place] [address] times Medical daily. Branch omeprazole 2022-0 Yes 40mg Take 40 mg U nivers 40 mg 2-21 by mouth ity of capsule 08:34: daily. [address] Branch loratadine 2022-0 Yes 10mg Take 10 mg U nivers 10 mg 2-21 by mouth ity of tablet 08:34: daily. [address] Branch aspirin 81 2022-0 Yes 81mg Take 81 mg U nivers mg chewable 2-21 by mouth ity of tablet 08:34: daily. [address] Branch lisinopril 2022-0 Yes Take by [facility] 10 mg 2-21 mouth ity of tablet 08:34: daily. [address] Branch albuterol 2022-0 Yes 1{ampul Use 1 [facility] ers 1.25 mg/3 2-21 e} Ampule as ity o f mL 08:34: directed [place] nebulizer 43 every 6 Medical solution (six) Branch hours as needed for Wheezing. ALPRAZolam 3-0 Yes 1mg Take 1 mg Un [facility] 1 mg tablet 2-21 by mouth 3 it y of 08:34: (three) [place] [address] times Medical daily. Branch omeprazole 3-0 Yes 40mg Take 40 mg U nivers 40 mg 2-21 by mouth ity of capsule 08:34: daily. [address] loratadine 2022-0 Yes 10mg Take 10 mg U nivers 10 mg 2-21 by mouth ity of tablet 08:34: daily. [address] aspirin 81 2022-0 Yes 81mg Take 81 mg U nivers mg chewable 2-21 by mouth ity of tablet 08:34: daily. [address] Branch lisinopril 2022-0 Yes Take by [facility] 10 mg 2-21 mouth ity of tablet 08:34: daily. [address] albuterol 2022-0 Yes 1{ampul Use 1 Univ ers 1.25 mg/3 2-21 e} Ampule as ity o f mL 08:34: directed [place] nebulizer every 6 Medical solution (six) Branch hours as needed for Wheezing. ALPRAZolam 2022-0 Yes 1mg Take 1 mg Un [facility] 1 mg tablet 2-21 by mouth 3 it y of 08:34: (three) [address] Medical daily. Branch omeprazole 2022-0 Yes 40mg Take 40 mg U nivers 40 mg 2-21 by mouth ity of capsule 08:34: daily. [address] loratadine 2022-0 Yes 10mg Take 10 mg U nivers 10 mg 2-21 by mouth ity of tablet 08:34: daily. [address] aspirin 81 2022-0 Yes 81mg Take 81 mg U nivers mg chewable 2-21 by mouth ity of tablet 08:34: daily. [address] Branch lisinopril 2022-0 Yes Take by [facility] 10 mg 2-21 mouth ity of tablet 08:34: daily. [address] Branch albuterol 3-0 Yes 1{ampul Use 1 [facility] ers 1.25 mg/3 2-21 e} Ampule as ity o f mL 08:34: directed [place] nebulizer 43 every 6 Medical solution (six) Branch hours as needed for Wheezing. ALPRAZolam 2023-0 Yes 1mg Take 1 mg [facility] 1 mg tablet 2-21 by mouth 3 it y of 08:34: (three) [place] [address] times Medical daily. Branch omeprazole 2022-0 Yes 40mg Take 40 mg U nivers 40 mg 2-21 by mouth ity of capsule 08:34: daily. [address] loratadine 2022-0 Yes 10mg Take 10 mg U nivers 10 mg 2-21 by mouth ity of tablet 08:34: daily. [address] aspirin 81 2022-0 Yes 81mg Take 81 mg U nivers mg chewable 2-21 by mouth ity of tablet 08:34: daily. [address] Branch lisinopril 2022-0 Yes Take by [facility] 10 mg 2-21 mouth ity of tablet 08:34: daily. [address] albuterol 2022-0 Yes 1{ampul Use 1 Univ ers 1.25 mg/3 2-21 e} Ampule as ity o f mL 08:34: directed [place] nebulizer every 6 Medical solution (six) Branch hours as needed for Wheezing. ALPRAZolam 2022-0 Yes 1mg Take 1 mg Un [facility] 1 mg tablet 2-21 by mouth 3 it y of 08:34: (three) [address] Medical daily. Branch omeprazole 2022-0 Yes 40mg Take 40 mg U nivers 40 mg 2-21 by mouth ity of capsule 08:34: daily. [address] loratadine 2022-0 Yes 10mg Take 10 mg U nivers 10 mg 2-21 by mouth ity of tablet 08:34: daily. [address] aspirin 81 2022-0 Yes 81mg Take 81 mg U nivers mg chewable 2-21 by mouth ity of tablet 08:34: daily. [address] Branch lisinopril 2022-0 Yes Take by [facility] 10 mg 2-21 mouth ity of tablet 08:34: daily. [address] albuterol 2022-0 Yes 1{ampul Use 1 [facility] ers 1.25 mg/3 2-21 e} Ampule as ity o f mL 08:34: directed [place] nebulizer 43 every 6 Medical solution (six) Branch hours as needed for Wheezing. ALPRAZolam 2022-0 Yes 1mg Take 1 mg [facility] 1 mg tablet 2-21 by mouth 3 it y of 08:34: (three) [place] [address] times Medical daily. Branch omeprazole 0 Yes 40mg Take 40 mg U nivers 40 mg 2-21 by mouth ity of capsule 08:34: daily. [address] Branch loratadine 0 Yes 10mg Take 10 mg U nivers 10 mg 2-21 by mouth ity of tablet 08:34: daily. [address] aspirin 81 2022-0 Yes 81mg Take 81 mg U nivers mg chewable 2-21 by mouth ity of tablet 08:34: daily. [address] Branch lisinopril Yes Take by [facility] ers 10 mg 2-21 mouth ity of tablet 08:34: daily. [address] Branch albuterol Yes 1{ampul Use 1 Univ ers 1.25 mg/3 2-21 e} Ampule as ity o f mL 08:34: directed [place] nebulizer 43 every 6 Medical solution (six) Branch hours as needed for Wheezing. SYMBICORT Yes 1{puff} Inhale 1 U nivers 160-4.5 2-19 Puff in ity of mcg/actuati 00:00: the [place] on inhaler 00 morning. Medic al Branch SYMBICORT Yes 1{puff} Inhale 1 U nivers 160-4.5 2-19 Puff in ity of mcg/actuati 00:00: the [place] on inhaler 00 morning. Medic al Branch SYMBICORT Yes 1{puff} Inhale 1 U nivers 160-4.5 2-19 Puff in ity of mcg/actuati 00:00: the [place] on inhaler 00 morning. Medic al Branch SYMBICORT Yes 1{puff} Inhale 1 U nivers 160-4.5 2-19 Puff in ity of mcg/actuati 00:00: the [place] on inhaler 00 morning. Medic al Branch SYMBICORT Yes 1{puff} Inhale 1 U nivers 160-4.5 2-19 Puff in ity of mcg/actuati 00:00: the [place] on inhaler 00 morning. Medic al Branch SYMBICORT Yes 1{puff} Inhale 1 U nivers 160-4.5 2-19 Puff in ity of mcg/actuati 00:00: the [place] on inhaler 00 morning. Medic al Branch SYMBICORT 2022-0 Yes 1{puff} Inhale 1 U nivers 160-4.5 2-19 Puff in ity of mcg/actuati 00:00: the [place] on inhaler 00 morning. Medic al Branch SYMBICORT 2022-0 Yes 1{puff} Inhale 1 U nivers 160-4.5 2-19 Puff in ity of mcg/actuati 00:00: the [place] on inhaler 00 morning. Medic al Branch SYMBICORT 2022-0 Yes 1{puff} Inhale 1 U nivers 160-4.5 2-19 Puff in ity of mcg/actuati 00:00: the [place] on inhaler 00 morning. Medic al Branch SYMBICORT 2022-0 Yes 1{puff} Inhale 1 U nivers 160-4.5 2-19 Puff in ity of mcg/actuati 00:00: the [place] on inhaler 00 morning. Medic al Branch SYMBICORT 2022-0 Yes 1{puff} Inhale 1 U nivers 160-4.5 2-19 Puff in ity of mcg/actuati 00:00: the [place] on inhaler 00 morning. Medic al Branch SYMBICORT 2022-0 Yes 1{puff} Inhale 1 U nivers 160-4.5 2-19 Puff in ity of mcg/actuati 00:00: the [place] on inhaler 00 morning. Medic al Branch SYMBICORT 2022-0 Yes 1{puff} Inhale 1 U nivers 160-4.5 2-19 Puff in ity of mcg/actuati 00:00: the [place] on inhaler 00 morning. Medic al Branch SYMBICORT 2022-0 Yes 1{puff} Inhale 1 U nivers 160-4.5 2-19 Puff in ity of mcg/actuati 00:00: the [place] on inhaler 00 morning. Medic al Branch SYMBICORT 2022-0 Yes 1{puff} Inhale 1 U nivers 160-4.5 2-19 Puff in ity of mcg/actuati 00:00: the [place] on inhaler 00 morning. Medic al Branch SYMBICORT 0 Yes 1{puff} Inhale 1 U nivers 160-4.5 2-19 Puff in ity of mcg/actuati 00:00: the [place] on inhaler 00 morning. Medic al Branch SYMBICORT 0 Yes 1{puff} Inhale 1 U nivers 160-4.5 2-19 Puff in ity of mcg/actuati 00:00: the [place] on inhaler 00 morning. Medic al Branch SYMBICORT 0 Yes 1{puff} Inhale 1 U nivers 160-4.5 2-19 Puff in ity of mcg/actuati 00:00: the [place] on inhaler 00 morning. Medic al Branch SYMBICORT 0 Yes 1{puff} Inhale 1 U nivers 160-4.5 2-19 Puff in ity of mcg/actuati 00:00: the [place] on inhaler 00 morning. Medic al Branch SYMBICORT 0 Yes 1{puff} Inhale 1 U nivers 160-4.5 2-19 Puff in ity of mcg/actuati 00:00: the [place] on inhaler 00 morning. Medic al Branch SYMBICORT 0 Yes 1{puff} Inhale 1 U nivers 160-4.5 2-19 Puff in ity of mcg/actuati 00:00: the [place] on inhaler 00 morning. Medic al Branch SYMBICORT 0 Yes 1{puff} Inhale 1 U nivers 160-4.5 2-19 Puff in ity of mcg/actuati 00:00: the [place] on inhaler 00 morning. Medic al Branch SYMBICORT 0 Yes 1{puff} Inhale 1 U nivers 160-4.5 2-19 Puff in ity of mcg/actuati 00:00: the [place] on inhaler 00 morning. Medic al Branch SYMBICORT 0 Yes 1{puff} Inhale 1 U nivers 160-4.5 2-19 Puff in ity of mcg/actuati 00:00: the [place] on inhaler 00 morning. Medic al Branch SYMBICORT 2022-0 Yes 1{puff} Inhale 1 U nivers 160-4.5 2-19 Puff in ity of mcg/actuati 00:00: the [place] on inhaler 00 morning. Medic al Branch SYMBICORT 0 Yes 1{puff} Inhale 1 U nivers 160-4.5 2-19 Puff in ity of mcg/actuati 00:00: the [place] on inhaler 00 morning. Medic al Branch SYMBICORT 2022-0 Yes 1{puff} Inhale 1 U nivers 160-4.5 2-19 Puff in ity of mcg/actuati 00:00: the [place] on inhaler 00 morning. Medic al Branch SYMBICORT 0 Yes 1{puff} Inhale 1 U nivers 160-4.5 2-19 Puff in ity of mcg/actuati 00:00: the [place] on inhaler 00 morning. Medic al Branch SYMBICORT 0 Yes 1{puff} Inhale 1 U nivers 160-4.5 2-19 Puff in ity of mcg/actuati 00:00: the [place] on inhaler 00 morning. Medic al Branch SYMBICORT 0 Yes 1{puff} Inhale 1 U nivers 160-4.5 2-19 Puff in ity of mcg/actuati 00:00: the [place] on inhaler 00 morning. Medic al Branch SYMBICORT 0 Yes 1{puff} Inhale 1 U nivers 160-4.5 2-19 Puff in ity of mcg/actuati 00:00: the [place] on inhaler 00 morning. Medic al Branch SYMBICORT 2022-0 Yes 1{puff} Inhale 1 U nivers 160-4.5 2-19 Puff in ity of mcg/actuati 00:00: the [place] on inhaler 00 morning. Medic al Branch SYMBICORT 2022-0 Yes 1{puff} Inhale 1 U nivers 160-4.5 2-19 Puff in ity of mcg/actuati 00:00: the [place] on inhaler 00 morning. Medic al Branch SYMBICORT 0 Yes 1{puff} Inhale 1 U nivers 160-4.5 2-19 Puff in ity of mcg/actuati 00:00: the [place] on inhaler 00 morning. Medic al Branch SYMBICORT 2022-0 Yes 1{puff} Inhale 1 U nivers 160-4.5 2-19 Puff in ity of mcg/actuati 00:00: the [place] on inhaler 00 morning. Medic al Branch SYMBICORT 2022-0 Yes 1{puff} Inhale 1 U nivers 160-4.5 2-19 Puff in ity of mcg/actuati 00:00: the [place] on inhaler 00 morning. Medic al Branch SYMBICORT 2022-0 Yes 1{puff} Inhale 1 U nivers 160-4.5 2-19 Puff in ity of mcg/actuati 00:00: the [place] on inhaler 00 morning. Medic al Branch SYMBICORT 2022-0 Yes 1{puff} Inhale 1 U nivers 160-4.5 2-19 Puff in ity of mcg/actuati 00:00: the [place] on inhaler 00 morning. Medic al Branch SYMBICORT 2022-0 Yes 1{puff} Inhale 1 U nivers 160-4.5 2-19 Puff in ity of mcg/actuati 00:00: the [place] on inhaler 00 morning. Medic al Branch SYMBICORT 2022-0 Yes 1{puff} Inhale 1 U nivers 160-4.5 2-19 Puff in ity of mcg/actuati 00:00: the [place] on inhaler 00 morning. Medic al Branch azithromyci 2022-0 Yes 250mg Take 1 Uni vers n 250 mg 2-17 tablet by ity of tablet 00:00: mouth in [place] 00 the Medical morning. X Branch 5 days azithromyci 3-0 Yes 250mg Take 1 Uni vers n 250 mg 2-17 tablet by ity of tablet 00:00: mouth in [place] 00 the Medical morning. X Branch 5 days azithromyci 3-0 Yes 250mg Take 1 Uni vers n 250 mg 2-17 tablet by ity of tablet 00:00: mouth in [place] 00 the Medical morning. X Branch 5 days azithromyci 2023-0 Yes 250mg Take 1 Uni vers n 250 mg 2-17 tablet by ity of tablet 00:00: mouth in [place] 00 the Medical morning. X Branch 5 days azithromyci 3-0 Yes 250mg Take 1 Uni vers n 250 mg 2-17 tablet by ity of tablet 00:00: mouth in [place] 00 the Medical morning. X Branch 5 days azithromyci 2023-0 Yes 250mg Take 1 Uni vers n 250 mg 2-17 tablet by ity of tablet 00:00: mouth in [place] 00 the Medical morning. X Branch 5 days azithromyci 2023-0 Yes 250mg Take 1 Uni vers n 250 mg 2-17 tablet by ity of tablet 00:00: mouth in [place] 00 the Medical morning. X Branch 5 days azithromyci 2023-0 Yes 250mg Take 1 Uni vers n 250 mg 2-17 tablet by ity of tablet 00:00: mouth in [place] 00 the Medical morning. X Branch 5 days azithromyci 2023-0 Yes 250mg Take 1 Uni vers n 250 mg 2-17 tablet by ity of tablet 00:00: mouth in [place] 00 the Medical morning. X Branch 5 days azithromyci 2023-0 Yes 250mg Take 1 Uni vers n 250 mg 2-17 tablet by ity of tablet 00:00: mouth in [place] 00 the Medical morning. X Branch 5 days azithromyci 2023-0 2023- No 250mg Take 1 Un lala n 250 mg 2-17 05-01 tablet by ity o f tablet 00:00: 00:00 mouth in [place] 00 :00 the Medical morning. X Branch 5 days azithromyci 2023-0 2023- No 250mg Take 1 Un lala n 250 mg 2-17 05-01 tablet by ity o f tablet 00:00: 00:00 mouth in [place] 00 :00 the Medical morning. X Branch 5 days celecoxib 2023-0 Yes TAKE ONE Univ ers 100 mg 1-19 (1) ity of capsule 00:00: [place] BY MOUTH Medical TWICE A Branch DAY WITH FOOD. gabapentin 2023-0 Yes 600mg Take 600 Un lala 600 mg 1-19 mg by ity of tablet 00:00: mouth 4 [place] 00 (four) Medical times Branch daily. celecoxib [...] mg by ity of tablet 00:00: mouth ([facility]) Medical times Branch daily. celecoxib 2023-0 [...] tablet by ity of tablet 00:00: mouth (four) Medical times Branch daily. gabapentin 2023-0 Yes 600mg Take 1 Univ ers 600 mg 1-19 tablet by ity of tablet 00:00: mouth (four) Medical times Branch daily. gabapentin 2023-0 Yes 600mg Take 1 Univ ers 600 mg 1-19 tablet by ity of tablet 00:00: mouth (four) Medical times Branch daily. gabapentin 2023-0 Yes 600mg Take 1 Univ ers 600 mg 1-19 tablet by ity of tablet 00:00: mouth (four) Medical times Branch daily. gabapentin 2023-0 Yes 600mg Take 1 Univ ers 600 mg 1-19 tablet by ity of tablet 00:00: mouth (four) Medical times Branch daily. gabapentin 2023-0 Yes 600mg Take 1 Univ ers 600 mg 1-19 tablet by ity of tablet 00:00: mouth (four) Medical times Branch daily. gabapentin 2023-0 Yes 600mg Take 1 Univ ers 600 mg 1-19 tablet by ity of tablet 00:00: mouth (four) Medical times Branch daily. gabapentin 2023-0 Yes 600mg Take 1 Univ ers 600 mg 1-19 tablet by ity of tablet 00:00: mouth (four) Medical times Branch daily. gabapentin 2023-0 Yes 600mg Take 1 Univ ers 600 mg 1-19 tablet by ity of tablet 00:00: mouth (four) Medical times Branch daily. gabapentin 2023-0 Yes 600mg Take 1 Univ ers 600 mg 1-19 tablet by ity of tablet 00:00: mouth (four) Medical times Branch daily. gabapentin 2023-0 Yes 600mg Take 1 Univ ers 600 mg 1-19 tablet by ity of tablet 00:00: mouth (four) Medical times Branch daily. gabapentin 2023-0 Yes 600mg Take 1 Univ ers 600 mg 1-19 tablet by ity of tablet 00:00: mouth (four) Medical times Branch daily. gabapentin 2023-0 Yes 600mg Take 1 Univ ers 600 mg 1-19 tablet by ity of tablet 00:00: mouth (four) Medical times Branch daily. gabapentin 2023-0 Yes 600mg Take 1 Univ ers 600 mg 1-19 tablet by ity of tablet 00:00: mouth (four) Medical times Branch daily. gabapentin 2023-0 Yes 600mg Take 1 Univ ers 600 mg 1-19 tablet by ity of tablet 00:00: mouth (four) Medical times Branch daily. gabapentin 2023-0 Yes 600mg Take 1 Univ ers 600 mg 1-19 tablet by ity of tablet 00:00: mouth (four) Medical times Branch daily. gabapentin 2023-0 Yes 600mg Take 1 Univ ers 600 mg 1-19 tablet by ity of tablet 00:00: mouth (four) Medical times Branch daily. gabapentin 2023-0 Yes 600mg Take 1 Univ ers 600 mg 1-19 tablet by ity of tablet 00:00: mouth (four) Medical times Branch daily. gabapentin 2023-0 Yes 600mg Take 1 Univ ers 600 mg 1-19 tablet by ity of tablet 00:00: mouth (four) Medical times Branch daily. gabapentin 2023-0 Yes 600mg Take 1 Univ ers 600 mg 1-19 tablet by ity of tablet 00:00: mouth (four) Medical times Branch daily. gabapentin 2023-0 Yes 600mg Take 1 Univ ers 600 mg 1-19 tablet by ity of tablet 00:00: mouth (four) Medical times Branch daily. gabapentin 2023-0 Yes 600mg Take 1 Univ ers 600 mg 1-19 tablet by ity of tablet 00:00: mouth (four) Medical times Branch daily. gabapentin 2023-0 Yes 600mg Take 1 Univ ers 600 mg 1-19 tablet by ity of tablet 00:00: mouth (four) Medical times Branch daily. gabapentin 2023-0 Yes 600mg Take 1 Univ ers 600 mg 1-19 tablet by ity of tablet 00:00: mouth (four) Medical times Branch daily. gabapentin 2023-0 Yes 600mg Take 1 Univ ers 600 mg 1-19 tablet by ity of tablet 00:00: mouth (four) Medical times Branch daily. gabapentin 2023-0 Yes 600mg Take 1 Univ ers 600 mg 1-19 tablet by ity of tablet 00:00: mouth (four) Medical times Branch daily. gabapentin 2023-0 Yes 600mg Take 1 Univ ers 600 mg 1-19 tablet by ity of tablet 00:00: mouth (four) Medical times Branch daily. gabapentin 2023-0 Yes 600mg Take 1 Univ ers 600 mg 1-19 tablet by ity of tablet 00:00: mouth (four) Medical times Branch daily. gabapentin 2023-0 Yes 600mg Take 1 Univ ers 600 mg 1-19 tablet by ity of tablet 00:00: mouth (four) Medical times Branch daily. gabapentin 2023-0 Yes 600mg Take 1 Univ ers 600 mg 1-19 tablet by ity of tablet 00:00: mouth (four) Medical times Branch daily. gabapentin 2023-0 Yes 600mg Take 1 Univ ers 600 mg 1-19 tablet by ity of tablet 00:00: mouth (four) Medical times Branch daily. gabapentin 2023-0 Yes 600mg Take 1 Univ ers 600 mg 1-19 tablet by ity of tablet 00:00: mouth [place] (four) Medical times Branch daily. gabapentin 2023-0 Yes 600mg Take 1 Univ ers 600 mg 1-19 tablet by ity of tablet 00:00: mouth (four) Medical times Branch daily. gabapentin 2023-0 Yes 600mg Take 1 Univ ers 600 mg 1-19 tablet by ity of tablet 00:00: mouth (four) Medical times Branch daily. gabapentin 2023-0 Yes 600mg Take 1 Univ ers 600 mg 1-19 tablet by ity of tablet 00:00: mouth (four) Medical times Branch daily. gabapentin 2023-0 Yes 600mg Take 1 Univ ers 600 mg 1-19 tablet by ity of tablet 00:00: mouth (four) Medical times Branch daily. gabapentin 2023-0 Yes 600mg Take 1 Univ ers 600 mg 1-19 tablet by ity of tablet 00:00: mouth [place] (four) Medical times Branch daily. gabapentin 2023-0 Yes 600mg Take 1 Univ ers 600 mg 1-19 tablet by ity of tablet 00:00: mouth (four) Medical times Branch daily. gabapentin 2023-0 Yes 600mg Take 1 Univ ers 600 mg 1-19 tablet by ity of tablet 00:00: mouth (four) Medical times Branch daily. gabapentin 2023-0 Yes 600mg Take 1 Univ ers 600 mg 19 tablet by ity of tablet 00:00: mouth 4 [place] 00 (four) Medical times Branch daily. celecoxib 2022- No TAKE ONE Uni vers 100 mg 19 03-08 (1) ity of capsule 00:00: 00:00 CAPSULE(S) [place] 00 :00 BY MOUTH Medical TWICE A Branch DAY [facility]OD. [facility] 1{appli Apply 1 Univers ne 0.5 % 1-14 cator} Applicator ity of cream 00:00: to area(s) [place] 00 as needed. Medical Branch [facility] Yes 1{appli Apply 1 Univers ne 0.5 % 1-14 cator} Applicator ity of cream 00:00: to area(s) [place] 00 as needed. Medical Branch [facility] Yes 1{appli Apply 1 Univers ne 0.5 % 1-14 cator} Applicator ity of cream 00:00: to area(s) [place] 00 as needed. Medical Branch [facility] Yes 1{appli Apply 1 Univers ne 0.5 % 1-14 cator} Applicator ity of cream 00:00: to area(s) [place] 00 as needed. Medical Branch [facility] Yes 1{appli Apply 1 Univers ne 0.5 % 1-14 cator} Applicator ity of cream 00:00: to area(s) [place] 00 as needed. Medical Branch [facility] Yes 1{appli Apply 1 Univers ne 0.5 % 1-14 cator} Applicator ity of cream 00:00: to area(s) [place] 00 as needed. Medical Branch [facility] Yes 1{appli Apply 1 Univers ne 0.5 % 1-14 cator} Applicator ity of cream 00:00: to area(s) [place] 00 as needed. Medical Branch [facility] Yes 1{appli Apply 1 Univers ne 0.5 % 1-14 cator} Applicator ity of cream 00:00: to area(s) [place] 00 as needed. Medical Branch [facility] Yes 1{appli Apply 1 Univers ne 0.5 % 03-16 cator} Applicator ity of cream 00:00: to area(s) [place] 00 as needed. Medical Branch [facility] Yes 1{appli Apply 1 Univers ne 0.5 % 14 cator} Applicator ity of cream 00:00: to area(s) [place] 00 as needed. Medical [facility] 2022- No 1{appli Apply 1 Univers ne 0.5 % 03-16 cator} Applicator it y of cream 00:00: 00:00 to area(s) [place] 00 :00 as needed. [facility] 2022- No 1{appli Apply 1 Univers ne 0.5 % 03-16 cator} Applicator it y of cream 00:00: 00:00 to area(s) [place] 00 :00 as needed. Medical Branch DICLOFENAC 2021-0 Yes [id number] TAKE 1 Univers 75 mg EC 7-12 9109 TABLET BY ity of tablet 00:00: MOUTH [place] 00 TWICE A Medical DAY WITH Branch MEALS DICLOFENAC 2022-0 Yes [id number] TAKE 1 Univers 75 mg EC 7-12 9109 TABLET BY ity of tablet 00:00: MOUTH [place] 00 TWICE A Medical DAY WITH Branch MEALS DICLOFENAC 2022-0 Yes [id number] TAKE 1 Univers 75 mg EC 7-12 9109 TABLET BY ity of tablet 00:00: MOUTH [place] 00 TWICE A Medical DAY WITH Branch MEALS DICLOFENAC 2022-0 Yes [id number] TAKE 1 Univers 75 mg EC 7-12 9109 TABLET BY ity of tablet 00:00: MOUTH [place] 00 TWICE A Medical DAY WITH Branch MEALS DICLOFENAC 2022-0 Yes [id number] TAKE 1 Univers 75 mg EC 7-12 9109 TABLET BY ity of tablet 00:00: MOUTH [place] 00 TWICE A Medical DAY WITH Branch MEALS DICLOFENAC 2022-0 Yes [id number] TAKE 1 Univers 75 mg EC 7-12 9109 TABLET BY ity of tablet 00:00: MOUTH [place] 00 TWICE A Medical DAY WITH Branch MEALS DICLOFENAC 2022-0 Yes [id number] TAKE 1 Univers 75 mg EC 7-12 9109 TABLET BY ity of tablet 00:00: MOUTH [place] 00 TWICE A Medical DAY WITH Branch MEALS DICLOFENAC 2022-0 Yes [id number] TAKE 1 Univers 75 mg EC 7-12 9109 TABLET BY ity of tablet 00:00: MOUTH [place] 00 TWICE A Medical DAY WITH Branch MEALS DICLOFENAC 2022-0 Yes [id number] TAKE 1 Univers 75 mg EC 7-12 9109 TABLET BY ity of tablet 00:00: MOUTH [place] 00 TWICE A Medical DAY WITH Branch MEALS DICLOFENAC 2022-0 Yes [id number] TAKE 1 Univers 75 mg EC 7-12 9109 TABLET BY ity of tablet 00:00: MOUTH [place] 00 TWICE A Medical DAY WITH Branch MEALS DICLOFENAC 2022-0 Yes [id number] TAKE 1 Univers 75 mg EC 7-12 9109 TABLET BY ity of tablet 00:00: MOUTH [place] 00 TWICE A Medical DAY WITH Branch MEALS DICLOFENAC 2022-0 Yes [id number] TAKE 1 Univers 75 mg EC 7-12 9109 TABLET BY ity of tablet 00:00: MOUTH [place] 00 TWICE A Medical DAY WITH Branch MEALS DICLOFENAC 2022-0 Yes [id number] TAKE 1 Univers 75 mg EC 7-12 9109 TABLET BY ity of tablet 00:00: MOUTH [place] 00 TWICE A Medical DAY WITH Branch MEALS DICLOFENAC 2022-0 Yes [id number] TAKE 1 Univers 75 mg EC 7-12 9109 TABLET BY ity of tablet 00:00: MOUTH [place] 00 TWICE A Medical DAY WITH Branch MEALS DICLOFENAC 2022-0 Yes [id number] TAKE 1 Univers 75 mg EC 7-12 9109 TABLET BY ity of tablet 00:00: MOUTH [place] 00 TWICE A Medical DAY WITH Branch MEALS DICLOFENAC 2022-0 Yes [id number] TAKE 1 [facility] 75 mg EC 7-12 9109 TABLET BY ity of tablet 00:00: MOUTH [place] 00 TWICE A Medical DAY WITH Branch MEALS DICLOFENAC 2022-0 2023- No [id number] TAKE 1 [facility] 75 mg EC 7-12 03-08 9109 TABLET BY ity o f tablet 00:00: 00:00 MOUTH [place] 00 :00 TWICE A Medical DAY WITH Branch MEALS diclofenac 2022-0 Yes [id number] 75mg Take 1 [facility] 75 mg EC 5-23 9109 tablet by ity of tablet 00:00: mouth 2 [place] 00 (two) Medical times Branch daily with meals. diclofenac 2022-0 2022- No [id number] 75mg Take 1 [facility] 75 mg EC 5-23 07-12 9109 tablet by ity o f tablet 00:00: 00:00 mouth 2 [place] 00 :00 (two) Medical times Branch daily with meals. aspirin 81 0 Yes 81mg Take 81 mg [facility] n[facility] mg chewable 3-10 by mouth ity of tablet 15:33: daily. [address] Branch lisinopril 0 Yes Take by [facility] ers 10 mg 3-10 mouth ity of tablet 15:33: daily. [address] Branch albuterol 0 Yes 1{ampul Use 1 [facility] ers 1.25 mg/3 3-10 e} Ampule as ity o f mL 15:33: directed [place] nebulizer every 6 Medical solution (six) Branch hours as needed for Wheezing. ALPRAZolam 0 Yes 1mg Take 1 mg [facility] (XANAX) 1 3-10 by mouth 3 ity of mg tablet 15:33: (three) [place] [address] times Medical daily. Branch omeprazole 0 Yes 40mg Take 40 mg [facility] nivers 40 mg 3-10 by mouth ity of capsule 15:33: daily. [address] Branch loratadine 0 Yes 10mg Take 10 mg [facility] nivers 10 mg 3-10 by mouth ity of tablet 15:33: daily. [address] aspirin 81 0 Yes 81mg Take 81 mg [facility] nivers mg chewable 3-10 by mouth ity of tablet 15:33: daily. [address] Branch lisinopril 0 Yes Take by [facility] ers 10 mg 3-10 mouth ity of tablet 15:33: daily. [address] albuterol 0 Yes 1{ampul Use 1 [facility] ers 1.25 mg/3 3-10 e} Ampule as ity o f mL 15:33: directed [place] nebulizer every 6 Medical solution (six) Branch hours as needed for Wheezing. ALPRAZolam 0 Yes 1mg Take 1 mg [facility] (XANAX) 1 3-10 by mouth 3 ity of mg tablet 15:33: (three) [place] [address] times Medical daily. Branch omeprazole 0 Yes 40mg Take 40 mg [facility] n[facility] 40 mg 3-10 by mouth ity of capsule 15:33: daily. [address] Branch loratadine 0 Yes 10mg Take 10 mg [facility] n[facility] 10 mg 3-10 by mouth ity of tablet 15:33: daily. [place] [address] Medical Branch aspirin 81 0 Yes 81mg Take 81 mg [facility] n[facility] mg chewable 3-10 by mouth ity of tablet 15:33: daily. [address] Branch lisinopril 0 Yes Take by [facility] 10 mg 3-10 mouth ity of tablet 15:33: daily. [address] Branch albuterol 0 Yes 1{ampul Use 1 [facility] ers 1.25 mg/3 3-10 e} Ampule as ity o f mL 15:33: directed [place] nebulizer every 6 Medical solution (six) Branch hours as needed for Wheezing. ALPRAZolam 0 Yes 1mg Take 1 mg [facility] (XANAX) 1 3-10 by mouth 3 ity of mg tablet 15:33: (three) [place] [address] times Medical daily. Branch omeprazole 0 Yes 40mg Take 40 mg [facility] n[facility] 40 mg 3-10 by mouth ity of capsule 15:33: daily. [address] Branch loratadine 0 Yes 10mg Take 10 mg [facility] 10 mg 3-10 by mouth ity of tablet 15:33: daily. [address] Branch aspirin 81 0 Yes 81mg Take 81 mg [facility] nivers mg chewable 3-10 by mouth ity of tablet 15:33: daily. [address] Branch lisinopril 0 Yes Take by [facility] 10 mg 3-10 mouth ity of tablet 15:33: daily. [address] Branch albuterol 0 Yes 1{ampul Use 1 [facility] ers 1.25 mg/3 3-10 e} Ampule as ity o f mL 15:33: directed [place] nebulizer every 6 Medical solution (six) Branch hours as needed for Wheezing. ALPRAZolam 0 Yes 1mg Take 1 mg [facility] (XANAX) 1 3-10 by mouth 3 ity of mg tablet 15:33: (three) [place] [address] times Medical daily. Branch omeprazole 0 Yes 40mg Take 40 mg [facility] n[facility] 40 mg 3-10 by mouth ity of capsule 15:33: daily. [address] Branch loratadine 0 Yes 10mg Take 10 mg [facility] n[facility] 10 mg 3-10 by mouth ity of tablet 15:33: daily. [address] Branch aspirin 81 0 Yes 81mg Take 81 mg [facility] nivers mg chewable 3-10 by mouth ity of tablet 15:33: daily. [address] Branch lisinopril 0 Yes Take by [facility] 10 mg 3-10 mouth ity of tablet 15:33: daily. [address] Branch albuterol 0 Yes 1{ampul Use 1 [facility] ers 1.25 mg/3 3-10 e} Ampule as ity o f mL 15:33: directed [place] nebulizer every 6 Medical solution (six) Branch hours as needed for Wheezing. ALPRAZolam 0 Yes 1mg Take 1 mg [facility] (XANAX) 1 3-10 by mouth 3 ity of mg tablet 15:33: (three) [place] [address] times Medical daily. Branch omeprazole 0 Yes 40mg Take 40 mg [facility] n[facility] 40 mg 3-10 by mouth ity of capsule 15:33: daily. [address] Branch loratadine 0 Yes 10mg Take 10 mg [facility] n[facility] 10 mg 3-10 by mouth ity of tablet 15:33: daily. [address] Branch aspirin 81 0 Yes 81mg Take 81 mg [facility] mg chewable 3-10 by mouth ity of tablet 15:33: daily. [address] Branch lisinopril 0 Yes Take by [facility] 10 mg 3-10 mouth ity of tablet 15:33: daily. [address] Branch albuterol 0 Yes 1{ampul Use 1 [facility] ers 1.25 mg/3 3-10 e} Ampule as ity o f mL 15:33: directed [place] nebulizer every 6 Medical solution (six) Branch hours as needed for Wheezing. ALPRAZolam 0 Yes 1mg Take 1 mg [facility] (XANAX) 1 3-10 by mouth 3 ity of mg tablet 15:33: (three) [place] [address] times Medical daily. Branch omeprazole 0 Yes 40mg Take 40 mg [facility] 40 mg 3-10 by mouth ity of capsule 15:33: daily. [address] Branch loratadine 0 Yes 10mg Take 10 mg [facility] 10 mg 3-10 by mouth ity of tablet 15:33: daily. [address] Branch aspirin 81 0 Yes 81mg Take 81 mg [facility] mg chewable 3-10 by mouth ity of tablet 15:33: daily. [address] Branch lisinopril 0 Yes Take by [facility] 10 mg 3-10 mouth ity of tablet 15:33: daily. [address] Branch albuterol 0 Yes 1{ampul Use 1 [facility] ers 1.25 mg/3 3-10 e} Ampule as ity o f mL 15:33: directed [place] nebulizer every 6 Medical solution (six) Branch hours as needed for Wheezing. ALPRAZolam 0 Yes 1mg Take 1 mg [facility] (XANAX) 1 3-10 by mouth 3 ity of mg tablet 15:33: (three) [place] [address] times Medical daily. Branch omeprazole 0 Yes 40mg Take 40 mg [facility] n[facility] 40 mg 3-10 by mouth ity of capsule 15:33: daily. [address] Branch loratadine 0 Yes 10mg Take 10 mg [facility] 10 mg 3-10 by mouth ity of tablet 15:33: daily. [address] Branch aspirin 81 0 Yes 81mg Take 81 mg [facility] nivers mg chewable 3-10 by mouth ity of tablet 15:33: daily. [address] Branch lisinopril 0 Yes Take by [facility] 10 mg 3-10 mouth ity of tablet 15:33: daily. [address] albuterol 0 Yes 1{ampul Use 1 [facility] ers 1.25 mg/3 3-10 e} Ampule as ity o f mL 15:33: directed [place] nebulizer every 6 Medical solution (six) Branch hours as needed for Wheezing. ALPRAZolam 0 Yes 1mg Take 1 mg [facility] (XANAX) 1 3-10 by mouth 3 ity of mg tablet 15:33: (three) [place] [address] times Medical daily. Branch omeprazole 0 Yes 40mg Take 40 mg [facility] n[facility] 40 mg 3-10 by mouth ity of capsule 15:33: daily. [address] loratadine 0 Yes 10mg Take 10 mg [facility] n[facility] 10 mg 3-10 by mouth ity of tablet 15:33: daily. [address] Branch aspirin 81 0 Yes 81mg Take 81 mg [facility] nivers mg chewable 3-10 by mouth ity of tablet 15:33: daily. [address] Branch lisinopril 0 Yes Take by [facility] 10 mg 3-10 mouth ity of tablet 15:33: daily. [address] Branch albuterol 0 Yes 1{ampul Use 1 [facility] ers 1.25 mg/3 3-10 e} Ampule as ity o f mL 15:33: directed [place] nebulizer every 6 Medical solution (six) Branch hours as needed for Wheezing. ALPRAZolam 0 Yes 1mg Take 1 mg [facility] (XANAX) 1 3-10 by mouth 3 ity of mg tablet 15:33: (three) [place] [address] times Medical daily. Branch omeprazole 0 Yes 40mg Take 40 mg [facility] 40 mg 3-10 by mouth ity of capsule 15:33: daily. [address] loratadine 0 Yes 10mg Take 10 mg [facility] 10 mg 3-10 by mouth ity of tablet 15:33: daily. [address] aspirin 81 0 Yes 81mg Take 81 mg [facility] mg chewable 3-10 by mouth ity of tablet 15:33: daily. [address] lisinopril 0 Yes Take by [facility] 10 mg 3-10 mouth ity of tablet 15:33: daily. [address] albuterol 0 Yes 1{ampul Use 1 [facility] ers 1.25 mg/3 3-10 e} Ampule as ity o f mL 15:33: directed [place] nebulizer every 6 Medical solution (six) Branch hours as needed for Wheezing. ALPRAZolam 0 Yes 1mg Take 1 mg [facility] (XANAX) 1 3-10 by mouth 3 ity of mg tablet 15:33: (three) [place] [address] times Medical daily. Branch omeprazole 0 Yes 40mg Take 40 mg [facility] n[facility] 40 mg 3-10 by mouth ity of capsule 15:33: daily. [address] loratadine 0 Yes 10mg Take 10 mg [facility] nivers 10 mg 3-10 by mouth ity of tablet 15:33: daily. [address] Branch diclofenac 2022-0 Yes 75mg Take 1 [facility] 75 mg EC 2-09 tablet by ity of tablet 00:00: mouth 2 [place] 00 (two) Medical times Branch daily with meals. diclofenac 2022-0 Yes 75mg Take 1 [facility] 75 mg EC 2-09 tablet by ity of tablet 00:00: mouth 2 [place] 00 (two) Medical times Branch daily with meals. diclofenac 2022-0 Yes 75mg Take 1 [facility] 75 mg EC 2-09 tablet by ity of tablet 00:00: mouth 2 [place] 00 (two) Medical times Branch daily with meals. diclofenac 2022-0 Yes 75mg Take 1 [facility] rs 75 mg EC 2-09 tablet by ity of tablet 00:00: mouth 2 [place] 00 (two) Medical times Branch daily with meals. diclofenac 2022-0 Yes 75mg Take 1 [facility] 75 mg EC 2-09 tablet by ity of tablet 00:00: mouth 2 [place] 00 (two) Medical times Branch daily with meals. diclofenac 2022-0 Yes 75mg Take 1 [facility] rs 75 mg EC 2-09 tablet by ity of tablet 00:00: mouth 2 [place] 00 (two) Medical times Branch daily with meals. diclofenac 2022-0 2022- No 75mg Take 1 [facility] 75 mg EC 2-09 05-23 tablet by ity o f tablet 00:00: 00:00 mouth 2 [place] 00 :00 (two) Medical times Branch daily with meals. atorvastati 2022-0 Yes 20mg Take 20 mg [facility] n 20 mg 2-03 by mouth ity of tablet 14:05: daily. [address] atorvastati 2022-0 Yes 20mg Take 20 mg [facility] n 20 mg 2-03 by mouth ity of tablet 14:05: daily. [address] atorvastati 2022-0 Yes 20mg Take 20 mg [facility] n 20 mg 2-03 by mouth ity of tablet 14:05: daily. [address] atorvastati 2022-0 Yes 20mg Take 20 mg [facility] n 20 mg 2-03 by mouth ity of tablet 14:05: daily. [address] atorvastati 2-0 Yes 20mg Take 20 mg [facility] n 20 mg 2-03 by mouth ity of tablet 14:05: daily. [address] atorvastati 0 Yes 20mg Take 20 mg [facility] n 20 mg 2-03 by mouth ity of tablet 14:05: daily. [address] atorvastati 0 Yes 20mg Take 20 mg [facility] n 20 mg 2-03 by mouth ity of tablet 14:05: daily. [address] atorvastati 0 Yes 20mg Take 20 mg [facility] n 20 mg 2-03 by mouth ity of tablet 14:05: daily. [address] atorvastati 0 Yes 20mg Take 20 mg [facility] n 20 mg 2-03 by mouth ity of tablet 14:05: daily. [address] atorvastati 0 Yes 20mg Take 20 mg [facility] n 20 mg 2-03 by mouth ity of tablet 14:05: daily. [address] atorvastati Yes 20mg Take 20 mg [facility] n 20 mg 2-03 by mouth ity of tablet 14:05: daily. [address] atorvastati Yes 20mg Take 20 mg [facility] n 20 mg 2-03 by mouth ity of tablet 14:05: daily. [address] atorvastati Yes 20mg Take 20 mg [facility] n 20 mg 2-03 by mouth ity of tablet 14:05: daily. [address] traMADoL 50 2021-0 Yes 4647 50mg [...] Indication s: acute pain traMADoL 50 2021-0 3- No 4647 50mg Take 1 [facility] vers mg tablet - 05-01 tablet by ity of 00:00: 00:00 mouth [place] 00 :00 every 4 Medical (four) Branch hours as needed for Pain (scale 7-10). Indication s: acute pain traMADoL 50 2021-0 2022- No 4647 50mg Take 1 [facility] vers mg tablet 03-05 05-01 tablet by ity of 00:00: 00:00 mouth [place] 00 :00 every 4 Medical (four) Branch hours as [...] 50mg Take 1 [facility] ers mg tablet 07-27 tablet by ity o f 00:00: mouth [place] 00 every 4 Medical (four) Branch hours as needed for Pain (scale 7-10). Indication s: acute pain traMADoL 50 2020-0 2022- No 4647 50mg Take 1 [facility] vers mg tablet 07-27 tablet by ity of 00:00: 00:00 mouth [place] 00 :00 every 4 Medical (four) Branch hours as needed for Pain (scale 7-10). Indication s: acute pain traMADoL 50 2020-0 2022- No 4647 50mg Take 1 [facility] vers mg tablet 07-27 tablet by ity of 00:00: 00:00 mouth [place] 00 :00 every 4 Medical (four) Branch hours as needed for Pain (scale 7-10). Indication s: acute pain budesonide- 2019-0 Yes Symbicort M ethodi formoteroL 3-[address] (Symbicort) 13:54: mcg-4.5 Hos khanh 160-4.5 49 mcg/actuat l mcg/actuati ion HFA on inhaler aerosol inhaler atorvastati 2019- Yes 20mg Take 20 mg Methodi n [...] l on inhaler ion aerosol inhaler lisinopriL 2020-0 Yes lisinopril M ethodi (PRINIVIL) [...] [facility] tablet [facility] tablet,del l ayed release predniSONE 2019-0 Yes prednisone M ethodi (DELTASONE) [...] 20 MG 13:54: [facility]osp[facility] tablet 49 l busPIRone 2020-0 Yes buspirone [facility] (BUSPAR) 10 3-[address] [facility] tablet 13:54: tablet [facility] l aspirin 81 2020-0 Yes 81mg [...] mcg/actuat l on inhaler ion aerosol inhaler budesonide- 2020-0 Yes Symbicort M ethodi formoteroL [...] 3 ity of mg tablet 13:41: (three) [place] 15 times Medical daily. Branch omeprazole 2018-03 Yes 40mg Take 40 mg U nivers 40 mg 2-13 by mouth ity of capsule 13:41: daily. [place] 15 Medical Branch loratadine 2018-03 Yes 10mg Take 10 mg [facility] n[facility] 10 mg 2-13 by mouth ity of tablet 13:41: daily. [address] aspirin 81 2018-03 Yes 81mg Take 81 mg [facility] n[facility] mg chewable 2-13 by mouth ity of tablet 13:41: daily. [address] lisinopril 2018-03 Yes Take by [facility] ers 10 mg 2-13 mouth ity of tablet 13:41: daily. [address] albuterol 2018-03 Yes 1{ampul Use 1 [facility] ers 1.25 mg/3 2-13 e} Ampule as ity o f mL 13:41: directed [place] nebulizer 15 every 6 Medical solution (six) Branch hours as needed for Wheezing. ALPRAZolam 2018-03 Yes 1mg Take 1 mg [facility] (XANAX) 1 2-13 by mouth 3 ity of mg tablet 13:41: (three) [place] 15 times Medical daily. Branch omeprazole 2018-03 Yes 40mg Take 40 mg U nivers 40 mg 2-13 by mouth ity of capsule 13:41: daily. [address] loratadine 2018-03 Yes 10mg Take 10 mg [facility] nivers 10 mg 2-13 by mouth ity of tablet 13:41: daily. [address] aspirin 81 2018-03 Yes 81mg Take 81 mg [facility] nivers mg chewable 2-13 by mouth ity of tablet 13:41: daily. [address] lisinopril 2018-03 Yes Take by [facility] ers 10 mg 2-13 mouth ity of tablet 13:41: daily. [address] albuterol 2018-03 Yes 1{ampul Use 1 [facility] ers 1.25 mg/3 2-13 e} Ampule as ity o f mL 13:41: directed [place] nebulizer 15 every 6 Medical solution (six) Branch hours as needed for Wheezing. ALPRAZolam 2018-03 Yes 1mg Take 1 mg [facility] (XANAX) 1 2-13 by mouth 3 ity of mg tablet 13:41: (three) [place] 15 times Medical daily. Branch omeprazole 2018-03 Yes 40mg Take 40 mg U nivers 40 mg 2-13 by mouth ity of capsule 13:41: daily. [address] loratadine 2018-03 Yes 10mg Take 10 mg U nivers 10 mg 2-13 by mouth ity of tablet 13:41: daily. [address] Branch aspirin 81 2018-03 Yes 81mg Take 81 mg U nivers mg chewable 2-13 by mouth ity of tablet 13:41: daily. [address] Branch lisinopril 2018-03 Yes Take by [facility] ers 10 mg 2-13 mouth ity of tablet 13:41: daily. [address] Branch albuterol 2018-03 Yes 1{ampul Use 1 [facility] ers 1.25 mg/3 2-13 e} Ampule as ity o f mL 13:41: directed [place] nebulizer 15 every 6 Medical solution (six) Branch hours as needed for Wheezing. benzonatate 2018-03 Yes [id number] 100mg Take 1 [facility] 100 mg 2-11 capsule by ity of capsule 00:00: mouth 3 [place] (three) Medical times Branch daily as needed for Cough. benzonatate 2018-03 Yes [id number] 100mg Take 1 [facility] 100 mg 2-11 capsule by ity of capsule 00:00: mouth 3 [place] (three) Medical times Branch daily as needed for Cough. benzonatate 2018-03 Yes [id number] 100mg Take 1 [facility] 100 mg 2-11 capsule by ity of capsule 00:00: mouth 3 [place] (three) Medical times Branch daily as needed for Cough. benzonatate 2018-03 Yes [id number] 100mg Take 1 [facility] 100 mg 2-11 capsule by ity of capsule 00:00: mouth 3 [place] (three) Medical times Branch daily as needed for Cough. benzonatate 2018-03 Yes [id number] 100mg Take 1 [facility] 100 mg 2-11 capsule by ity of capsule 00:00: mouth 3 [place] (three) Medical times Branch daily as needed for Cough. benzonatate 2018-03 Yes [id number] 100mg Take 1 [facility] 100 mg 2-11 capsule by ity of capsule 00:00: mouth 3 [place] (three) Medical times Branch daily as needed for Cough. benzonatate 2018-03 Yes [id number] 100mg Take 1 [facility] 100 mg 2-11 capsule by ity of capsule 00:00: mouth 3 [place] (three) Medical times Branch daily as needed for Cough. benzonatate 2018-03 Yes [id number] 100mg Take 1 [facility] 100 mg 2-11 capsule by ity of capsule 00:00: mouth 3 [place] (three) Medical times Branch daily as needed for Cough. benzonatate 2018-03 Yes [id number] 100mg Take 1 [facility] 100 mg 2-11 capsule by ity of capsule 00:00: mouth 3 (three) Medical times Branch daily as needed for Cough. benzonatate 2018-03 Yes [id number] 100mg Take 1 [facility] 100 mg 2-11 capsule by ity of capsule 00:00: mouth 3 (three) Medical times Branch daily as needed for Cough. benzonatate 2018-03 Yes [id number] 100mg Take 1 [facility] 100 mg 2-11 capsule by ity of capsule 00:00: mouth 3 (three) Medical times Branch daily as needed for Cough. benzonatate 2018-03 Yes [id number] 100mg Take 1 [facility] 100 mg 2-11 capsule by ity of capsule 00:00: mouth 3 (three) Medical times Branch daily as needed for Cough. benzonatate 2018-03 Yes [id number] 100mg Take 1 [facility] 100 mg 2-11 capsule by ity of capsule 00:00: mouth 3 (three) Medical times Branch daily as needed for Cough. benzonatate 2018-03 Yes [id number] 100mg Take 1 [facility] 100 mg 2-11 capsule by ity of capsule 00:00: mouth 3 (three) Medical times Branch daily as needed for Cough. benzonatate 2018-03 Yes [id number] 100mg Take 1 [facility] 100 mg 2-11 capsule by ity of capsule 00:00: mouth 3 (three) Medical times Branch daily as needed for Cough. benzonatate 2018-03 Yes [id number] 100mg Take 1 [facility] 100 mg 2-11 capsule by ity of capsule 00:00: mouth 3 (three) Medical times Branch daily as needed for Cough. benzonatate 2018-03 Yes [id number] 100mg Take 1 [facility] 100 mg 2-11 capsule by ity of capsule 00:00: mouth 3 (three) Medical times Branch daily as needed for Cough. benzonatate 2018-03 Yes [id number] 100mg Take 1 [facility] 100 mg 2-11 capsule by ity of capsule 00:00: mouth 3 (three) Medical times Branch daily as needed for Cough. benzonatate 2018-03 Yes [id number] 100mg Take 1 [facility] 100 mg 2-11 capsule by ity of capsule 00:00: mouth 3 (three) Medical times Branch daily as needed for Cough. benzonatate 2018-03 Yes [id number] 100mg Take 1 [facility] 100 mg 2-11 capsule by ity of capsule 00:00: mouth 3 (three) Medical times Branch daily as needed for Cough. benzonatate 2018-03 Yes [id number] 100mg Take 1 [facility] 100 mg 2-11 capsule by ity of capsule 00:00: mouth 3 (three) Medical times Branch daily as needed for Cough. benzonatate 2018-03 Yes [id number] 100mg Take 1 [facility] 100 mg 2-11 capsule by ity of capsule 00:00: mouth 3 (three) Medical times Branch daily as needed for Cough. benzonatate 2018-03 Yes [id number] 100mg Take 1 [facility] 100 mg 2-11 capsule by ity of capsule 00:00: mouth 3 (three) Medical times Branch daily as needed for Cough. benzonatate 2018-03 Yes [id number] 100mg Take 1 [facility] 100 mg 2-11 capsule by ity of capsule 00:00: mouth (three) Medical times Branch daily as needed for Cough. benzonatate 2018-03 Yes [id number] 100mg Take 1 [facility] 100 mg 2-11 capsule by ity of capsule 00:00: mouth 3 (three) Medical times Branch daily as needed for Cough. benzonatate 2018-03 Yes [id number] 100mg Take 1 [facility] 100 mg 2-11 capsule by ity of capsule 00:00: mouth 3 (three) Medical times Branch daily as needed for Cough. benzonatate 2018-03 Yes [id number] 100mg Take 1 [facility] 100 mg 2-11 capsule by ity of capsule 00:00: mouth 3 (three) Medical times Branch daily as needed for Cough. benzonatate 2018-03 Yes [id number] 100mg Take 1 [facility] 100 mg 2-11 capsule by ity of capsule 00:00: mouth 3 (three) Medical times Branch daily as needed for Cough. benzonatate 2018-03 Yes [id number] 100mg Take 1 [facility] 100 mg 2-11 capsule by ity of capsule 00:00: mouth 3 (three) Medical times Branch daily as needed for Cough. benzonatate 2018-03 Yes [id number] 100mg Take 1 [facility] 100 mg 2-11 capsule by ity of capsule 00:00: mouth 3 (three) Medical times Branch daily as needed for Cough. benzonatate 2018-03 Yes [id number] 100mg Take 1 [facility] 100 mg 2-11 capsule by ity of capsule 00:00: mouth 3 (three) Medical times Branch daily as needed for Cough. benzonatate 2018-03 Yes [id number] 100mg Take 1 [facility] 100 mg 2-11 capsule by ity of capsule 00:00: mouth 3 (three) Medical times Branch daily as needed for Cough. benzonatate 2018-03 Yes [id number] 100mg Take 1 [facility] 100 mg 2-11 capsule by ity of capsule 00:00: mouth 3 (three) Medical times Branch daily as needed for Cough. benzonatate 2018-03 Yes [id number] 100mg Take 1 [facility] 100 mg 2-11 capsule by ity of capsule 00:00: mouth 3 (three) Medical times Branch daily as needed for Cough. benzonatate 2018-03 Yes [id number] 100mg Take 1 [facility] 100 mg 2-11 capsule by ity of capsule 00:00: mouth (three) Medical times Branch daily as needed for Cough. benzonatate 2018-03 Yes [id number] 100mg Take 1 [facility] 100 mg 2-11 capsule by ity of capsule 00:00: mouth 3 (three) Medical times Branch daily as needed for Cough. benzonatate 2018-03 Yes [id number] 100mg Take 1 [facility] 100 mg 2-11 capsule by ity of capsule 00:00: mouth 3 (three) Medical times Branch daily as needed for Cough. benzonatate 2018-03 Yes [id number] 100mg Take 1 [facility] 100 mg 2-11 capsule by ity of capsule 00:00: mouth 3 (three) Medical times Branch daily as needed for Cough. benzonatate 2018-03 Yes [id number] 100mg Take 1 [facility] 100 mg 2-11 capsule by ity of capsule 00:00: mouth 3 (three) Medical times Branch daily as needed for Cough. benzonatate 2018-03 Yes [id number] 100mg Take 1 [facility] 100 mg 2-11 capsule by ity of capsule 00:00: mouth 3 (three) Medical times Branch daily as needed for Cough. benzonatate 2018-03- No [id number] 100mg Take 1 [facility] 100 mg 2-11 - capsule by ity of capsule 00:00: 00:00 mouth 3 [place] 00 :00 (three) Medical times Branch daily as needed for Cough. benzonatate 2018-03- No [id number] 100mg Take 1 [facility] 100 mg 04-13 capsule by ity of capsule 00:00: 00:00 mouth 3 [place] 00 :00 (three) Medical times Branch daily as needed [...] hot shower 1 hour before bedtime sod 2016- Yes 1{bottl Use 1 [facility] chlor-bicar 3-18 [...] hot shower 1 hour before bedtime sod 202- No 1{bottl Use 1 [facility] chlor-bicar 3-18 05-01 e} Bottle in it y of b-squeez 00:00: 00:00 each [place] bottle 00 :00 nostril 2 Medical (NEILMED (two) Branch SINUS RINSE times COMPLETE) daily. Use pkdv in hot shower 1 hour before bedtime sod 2023- No 1{bottl Use 1 [facility] chlor-bicar 3-18 05-01 e} Bottle in it y of b-squeez 00:00: 00:00 each [place] bottle 00 :00 nostril 2 Medical (NEILMED (two) Branch SINUS RINSE times COMPLETE) daily. Use pkdv in hot shower 1 hour before bedtime Immunizations Ordered Filled Immunization Date Status Comments [facility] e Immunization Name Name SARS-COV-2 COVID-19 2020-10-15 Completed Unive rsity of PFIZER VACCINE 00:00:00 [facility] SARS-COV-2 COVID-19 2020-10-15 Completed Unive rsity of PFIZER VACCINE 00:00:00 [facility] SARS-COV-2 COVID-19 2020-10-15 Completed Unive rsity of PFIZER VACCINE 00:00:00 [facility] SARS-COV-2 COVID-19 2020-10-15 Completed Unive rsity of PFIZER VACCINE 00:00:00 [facility] SARS-COV-2 COVID-19 2020-10-15 Completed Unive rsity of PFIZER VACCINE 00:00:00 [facility] SARS-COV-2 COVID-19 2020-10-15 Completed Unive rsity of PFIZER VACCINE 00:00:00 [facility] SARS-COV-2 COVID-19 2020-10-15 Completed Unive rsity of PFIZER VACCINE 00:00:00 [facility] SARS-COV-2 COVID-19 2020-10-15 Completed Unive rsity of PFIZER VACCINE 00:00:00 [facility] SARS-COV-2 COVID-19 2020-10-15 Completed Unive rsity of PFIZER VACCINE 00:00:00 [facility] SARS-COV-2 COVID-19 2020-10-15 Completed Unive rsity of PFIZER VACCINE 00:00:00 [facility] SARS-COV-2 COVID-19 2020-10-15 Completed Unive rsity of PFIZER VACCINE 00:00:00 [facility] SARS-COV-2 COVID-19 2020-10-15 Completed [facility] PFIZER VACCINE 00:00:00 [facility] SARS-COV-2 COVID-19 2020-10-15 Completed [facility] PFIZER VACCINE 00:00:00 [facility] SARS-COV-2 COVID-19 2020-10-15 Completed [facility] PFIZER VACCINE 00:00:00 [facility] SARS-COV-2 COVID-19 2020-10-15 Completed [facility] PFIZER VACCINE 00:00:00 [facility] SARS-COV-2 COVID-19 2020-10-15 Completed [facility] PFIZER VACCINE 00:00:00 [facility] SARS-COV-2 COVID-19 2020-10-15 Completed [facility] PFIZER VACCINE 00:00:00 [facility] SARS-COV-2 COVID-19 2020-10-15 Completed [facility] PFIZER VACCINE 00:00:00 [facility] SARS-COV-2 COVID-19 2020-10-15 Completed [facility] PFIZER VACCINE 00:00:00 [facility] SARS-COV-2 COVID-19 2020-10-15 Completed [facility] PFIZER VACCINE 00:00:00 [facility] SARS-COV-2 COVID-19 2020-10-15 Completed [facility] PFIZER VACCINE 00:00:00 [facility] SARS-COV-2 COVID-19 2020-10-15 Completed [facility] PFIZER VACCINE 00:00:00 [facility] SARS-COV-2 COVID-19 2020-10-15 Completed [facility] PFIZER VACCINE 00:00:00 [facility] SARS-COV-2 COVID-19 2020-10-15 Completed [facility] PFIZER VACCINE 00:00:00 [facility] SARS-COV-2 COVID-19 2020-10-15 Completed [facility] PFIZER VACCINE 00:00:00 [facility] SARS-COV-2 COVID-19 2020-10-15 Completed [facility] PFIZER VACCINE 00:00:00 [facility] SARS-COV-2 COVID-19 2020-10-15 Completed [facility] PFIZER VACCINE 00:00:00 [facility] SARS-COV-2 COVID-19 2020-10-15 Completed [facility] PFIZER VACCINE 00:00:00 [facility] SARS-COV-2 COVID-19 2020-10-15 Completed [facility] PFIZER VACCINE 00:00:00 [facility] SARS-COV-2 COVID-19 2020-10-15 Completed [facility] PFIZER VACCINE 00:00:00 [facility] SARS-COV-2 COVID-19 2020-10-15 Completed [facility] PFIZER VACCINE 00:00:00 [facility] SARS-COV-2 COVID-19 2020-10-15 Completed [facility] PFIZER VACCINE 00:00:00 [facility] SARS-COV-2 COVID-19 2020-10-15 Completed [facility] PFIZER VACCINE 00:00:00 [facility] SARS-COV-2 COVID-19 2020-10-15 Completed [facility] PFIZER VACCINE 00:00:00 [facility] SARS-COV-2 COVID-19 2020-10-15 Completed [facility] PFIZER VACCINE 00:00:00 [facility] SARS-COV-2 COVID-19 2020-10-15 Completed [facility] PFIZER VACCINE 00:00:00 [facility] SARS-COV-2 COVID-19 2020-10-15 Completed [facility] PFIZER VACCINE 00:00:00 [facility] SARS-COV-2 COVID-19 2020-10-15 Completed [facility] PFIZER VACCINE 00:00:00 [facility] SARS-COV-2 COVID-19 2020-10-15 Completed [facility] PFIZER VACCINE 00:00:00 [facility] SARS-COV-2 COVID-19 2020-10-15 Completed [facility] PFIZER VACCINE 00:00:00 [facility] SARS-COV-2 COVID-19 2020-10-15 Completed [facility] PFIZER VACCINE 00:00:00 [facility] SARS-COV-2 COVID-19 2020-10-15 Completed [facility] PFIZER VACCINE 00:00:00 [facility] SARS-COV-2 COVID-19 2020-10-15 Completed [facility] PFIZER VACCINE 00:00:00 [facility] SARS-COV-2 COVID-19 2020-10-15 Completed [facility] PFIZER VACCINE 00:00:00 [facility] SARS-COV-2 COVID-19 2020-10-15 Completed [facility] PFIZER VACCINE 00:00:00 [facility] SARS-COV-2 COVID-19 2020-10-15 Completed [facility] PFIZER VACCINE 00:00:00 [facility] SARS-COV-2 COVID-19 2020-10-15 Completed [facility] PFIZER VACCINE 00:00:00 [facility] SARS-COV-2 COVID-19 2020-10-15 Completed [facility] PFIZER VACCINE 00:00:00 [facility] SARS-COV-2 COVID-19 2020-10-15 Completed [facility] PFIZER VACCINE 00:00:00 [facility] SARS-COV-2 COVID-19 2020-10-15 Completed [facility] PFIZER VACCINE 00:00:00 [facility] SARS-COV-2 COVID-19 2020-10-15 Completed [facility] PFIZER VACCINE 00:00:00 [facility] SARS-COV-2 COVID-19 2020-10-15 Completed [facility] PFIZER VACCINE 00:00:00 [facility] SARS-COV-2 COVID-19 2020-10-15 Completed [facility] PFIZER VACCINE 00:00:00 [facility] SARS-COV-2 COVID-19 2020-10-15 Completed [facility] PFIZER VACCINE 00:00:00 [facility] SARS-COV-2 COVID-19 2020-10-15 Completed [facility] PFIZER VACCINE 00:00:00 [facility] SARS-COV-2 COVID-19 2020-10-15 Completed [facility] PFIZER VACCINE 00:00:00 [facility] SARS-COV-2 COVID-19 2020-10-15 Completed [facility] PFIZER VACCINE 00:00:00 [facility] SARS-COV-2 COVID-19 2020-10-15 Completed [facility] PFIZER VACCINE 00:00:00 [facility] SARS-COV-2 COVID-19 2020-10-15 Completed [facility] PFIZER VACCINE 00:00:00 [facility] SARS-COV-2 COVID-19 2020-10-15 Completed [facility] PFIZER VACCINE 00:00:00 [facility] SARS-COV-2 COVID-19 2020-10-15 Completed [facility] PFIZER VACCINE 00:00:00 [facility] SARS-COV-2 COVID-19 2020-10-15 Completed [facility] PFIZER VACCINE 00:00:00 [facility] SARS-COV-2 COVID-19 2020-10-15 Completed [facility] PFIZER VACCINE 00:00:00 [facility] SARS-COV-2 COVID-19 2020-10-15 Completed [facility] PFIZER VACCINE 00:00:00 [facility] SARS-COV-2 COVID-19 2020-10-15 Completed [facility] PFIZER VACCINE 00:00:00 [facility] SARS-COV-2 COVID-19 2020-10-15 Completed [facility] PFIZER VACCINE 00:00:00 [facility] SARS-COV-2 COVID-19 2020-10-15 Completed [facility] PFIZER VACCINE 00:00:00 [facility] SARS-COV-2 COVID-19 2020-10-15 Completed [facility] PFIZER VACCINE 00:00:00 [facility] SARS-COV-2 COVID-19 2020-10-15 Completed [facility] PFIZER VACCINE 00:00:00 [facility] SARS-COV-2 COVID-19 2020-10-15 Completed [facility] PFIZER VACCINE 00:00:00 [facility] SARS-COV-2 COVID-19 2020-09-22 Completed [facility] PFIZER VACCINE 00:00:00 [facility] SARS-COV-2 COVID-19 2020-09-22 Completed [facility] PFIZER VACCINE 00:00:00 [facility] SARS-COV-2 COVID-19 2020-09-22 Completed [facility] PFIZER VACCINE 00:00:00 [facility] SARS-COV-2 COVID-19 2020-09-22 Completed [facility] PFIZER VACCINE 00:00:00 [facility] SARS-COV-2 COVID-19 2020-09-22 Completed [facility] PFIZER VACCINE 00:00:00 [facility] SARS-COV-2 COVID-19 2020-09-22 Completed [facility] PFIZER VACCINE 00:00:00 [facility] SARS-COV-2 COVID-19 2020-09-22 Completed [facility] PFIZER VACCINE 00:00:00 [facility] SARS-COV-2 COVID-19 2020-09-22 Completed [facility] PFIZER VACCINE 00:00:00 [facility] SARS-COV-2 COVID-19 2020-09-22 Completed [facility] PFIZER VACCINE 00:00:00 [facility] SARS-COV-2 COVID-19 2020-09-22 Completed [facility] PFIZER VACCINE 00:00:00 [facility] SARS-COV-2 COVID-19 2020-09-22 Completed [facility] PFIZER VACCINE 00:00:00 [facility] SARS-COV-2 COVID-19 2020-09-22 Completed [facility] PFIZER VACCINE 00:00:00 [facility] SARS-COV-2 COVID-19 2020-09-22 Completed [facility] PFIZER VACCINE 00:00:00 [facility] SARS-COV-2 COVID-19 2020-09-22 Completed [facility] PFIZER VACCINE 00:00:00 [facility] SARS-COV-2 COVID-19 2020-09-22 Completed [facility] PFIZER VACCINE 00:00:00 [facility] SARS-COV-2 COVID-19 2020-09-22 Completed [facility] PFIZER VACCINE 00:00:00 [facility] SARS-COV-2 COVID-19 2020-09-22 Completed [facility] PFIZER VACCINE 00:00:00 [facility] SARS-COV-2 COVID-19 2020-09-22 Completed [facility] PFIZER VACCINE 00:00:00 [facility] SARS-COV-2 COVID-19 2020-09-22 Completed [facility] PFIZER VACCINE 00:00:00 [facility] SARS-COV-2 COVID-19 2020-09-22 Completed [facility] PFIZER VACCINE 00:00:00 [facility] SARS-COV-2 COVID-19 2020-09-22 Completed [facility] PFIZER VACCINE 00:00:00 [facility] SARS-COV-2 COVID-19 2020-09-22 Completed [facility] PFIZER VACCINE 00:00:00 [facility] SARS-COV-2 COVID-19 2020-09-22 Completed [facility] PFIZER VACCINE 00:00:00 [facility] SARS-COV-2 COVID-19 2020-09-22 Completed [facility] PFIZER VACCINE 00:00:00 [facility] SARS-COV-2 COVID-19 2020-09-22 Completed [facility] PFIZER VACCINE 00:00:00 [facility] SARS-COV-2 COVID-19 2020-09-22 Completed [facility] PFIZER VACCINE 00:00:00 [facility] SARS-COV-2 COVID-19 2020-09-22 Completed [facility] PFIZER VACCINE 00:00:00 [facility] SARS-COV-2 COVID-19 2020-09-22 Completed [facility] PFIZER VACCINE 00:00:00 [facility] SARS-COV-2 COVID-19 2020-09-22 Completed [facility] PFIZER VACCINE 00:00:00 [facility] SARS-COV-2 COVID-19 2020-09-22 Completed [facility] PFIZER VACCINE 00:00:00 [facility] SARS-COV-2 COVID-19 2020-09-22 Completed [facility] PFIZER VACCINE 00:00:00 [facility] SARS-COV-2 COVID-19 2020-09-22 Completed [facility] PFIZER VACCINE 00:00:00 [facility] SARS-COV-2 COVID-19 2020-09-22 Completed [facility] PFIZER VACCINE 00:00:00 [facility] SARS-COV-2 COVID-19 2020-09-22 Completed [facility] PFIZER VACCINE 00:00:00 [facility] SARS-COV-2 COVID-19 2020-09-22 Completed [facility] PFIZER VACCINE 00:00:00 [facility] SARS-COV-2 COVID-19 2020-09-22 Completed [facility] PFIZER VACCINE 00:00:00 [facility] SARS-COV-2 COVID-19 2020-09-22 Completed [facility] PFIZER VACCINE 00:00:00 [facility] SARS-COV-2 COVID-19 2020-09-22 Completed [facility] PFIZER VACCINE 00:00:00 [facility] SARS-COV-2 COVID-19 2020-09-22 Completed [facility] PFIZER VACCINE 00:00:00 [facility] SARS-COV-2 COVID-19 2020-09-22 Completed [facility] PFIZER VACCINE 00:00:00 [facility] SARS-COV-2 COVID-19 2020-09-22 Completed [facility] PFIZER VACCINE 00:00:00 [facility] SARS-COV-2 COVID-19 2020-09-22 Completed [facility] PFIZER VACCINE 00:00:00 [facility] SARS-COV-2 COVID-19 2020-09-22 Completed [facility] PFIZER VACCINE 00:00:00 [facility] SARS-COV-2 COVID-19 2020-09-22 Completed [facility] PFIZER VACCINE 00:00:00 [facility] SARS-COV-2 COVID-19 2020-09-22 Completed [facility] PFIZER VACCINE 00:00:00 [facility] SARS-COV-2 COVID-19 2020-09-22 Completed [facility] PFIZER VACCINE 00:00:00 [facility] SARS-COV-2 COVID-19 2020-09-22 Completed [facility] PFIZER VACCINE 00:00:00 [facility] SARS-COV-2 COVID-19 2020-09-22 Completed [facility] PFIZER VACCINE 00:00:00 [facility] SARS-COV-2 COVID-19 2020-09-22 Completed [facility] PFIZER VACCINE 00:00:00 [facility] SARS-COV-2 COVID-19 2020-09-22 Completed [facility] PFIZER VACCINE 00:00:00 [facility] SARS-COV-2 COVID-19 2020-09-22 Completed [facility] PFIZER VACCINE 00:00:00 [facility] SARS-COV-2 COVID-19 2020-09-22 Completed [facility] PFIZER VACCINE 00:00:00 [facility] SARS-COV-2 COVID-19 2020-09-22 Completed [facility] PFIZER VACCINE 00:00:00 [facility] SARS-COV-2 COVID-19 2020-09-22 Completed [facility] PFIZER VACCINE 00:00:00 [facility] SARS-COV-2 COVID-19 2020-09-22 Completed [facility] PFIZER VACCINE 00:00:00 [facility] SARS-COV-2 COVID-19 2020-09-22 Completed [facility] PFIZER VACCINE 00:00:00 [facility] SARS-COV-2 COVID-19 2020-09-22 Completed [facility] PFIZER VACCINE 00:00:00 [facility] SARS-COV-2 COVID-19 2020-09-22 Completed [facility] PFIZER VACCINE 00:00:00 [facility] SARS-COV-2 COVID-19 2020-09-22 Completed [facility] PFIZER VACCINE 00:00:00 [facility] SARS-COV-2 COVID-19 2020-09-22 Completed [facility] PFIZER VACCINE 00:00:00 [facility] SARS-COV-2 COVID-19 2020-09-22 Completed [facility] PFIZER VACCINE 00:00:00 [facility] SARS-COV-2 COVID-19 2020-09-22 Completed [facility] PFIZER VACCINE 00:00:00 [facility] SARS-COV-2 COVID-19 2020-09-22 Completed [facility] PFIZER VACCINE 00:00:00 [facility] SARS-COV-2 COVID-19 2020-09-22 Completed [facility] PFIZER VACCINE 00:00:00 [facility] SARS-COV-2 COVID-19 2020-09-22 Completed [facility] PFIZER VACCINE 00:00:00 [facility] SARS-COV-2 COVID-19 2020-09-22 Completed [facility] PFIZER VACCINE 00:00:00 [facility] SARS-COV-2 COVID-19 2020-09-22 Completed [facility] PFIZER VACCINE 00:00:00 [facility] SARS-COV-2 COVID-19 2020-09-22 Completed [facility] PFIZER VACCINE 00:00:00 [facility] SARS-COV-2 COVID-19 2020-09-22 Completed [facility] PFIZER VACCINE 00:00:00 [facility] SARS-COV-2 COVID-19 2020-09-22 Completed [facility] PFIZER VACCINE 00:00:00 [facility] Vital Signs Vital Name Observation Time Observation Value Comments Source Body height 2022-09-10 17:59:00 157.5 cm [facility] Body weight 2022-09-10 17:59:00 81.647 kg [facility] BMI 2022-09-10 17:59:00 32.92 kg/m2 [facility] Systolic blood 2022-08-16 18:24:00 125 mm[Hg] [facility] Diastolic blood 2022-08-16 18:24:00 77 mm[Hg] [facility] Heart rate 2022-08-16 18:24:00 80 /min [facility] Body temperature 2022-08-16 18:24:00 36.72 [facility] Respiratory rate 2022-08-16 18:24:00 16 /min [facility] Body height 2022-08-16 18:24:00 157.5 cm [facility] Body weight 2022-08-16 18:24:00 81.647 kg [facility] BMI 2022-08-16 18:24:00 32.92 kg/m2 [facility] Oxygen saturation in 2022-08-16 18:24:00 98 /min [facility] blood by [facility] Systolic blood 2022-08-09 13:13:00 106 mm[Hg] [facility] Diastolic blood 2022-08-09 13:13:00 68 mm[Hg] [facility] Heart rate 2022-08-09 13:13:00 92 /min [facility] Body height 2022-08-09 13:13:00 157.5 cm [facility] Body weight 2022-08-09 13:13:00 81.647 kg [facility] BMI 2022-08-09 13:13:00 32.92 kg/m2 [facility] Systolic blood 2022-08-06 22:21:00 142 mm[Hg] [facility] Diastolic blood 2022-08-06 22:21:00 90 mm[Hg] [facility] Heart rate 2022-08-06 22:21:00 87 /min [facility] Body temperature 2022-08-06 22:21:00 37 [facility] Respiratory rate 2022-08-06 22:21:00 16 /min [facility] Body weight 2022-08-06 22:21:00 81.647 kg [facility] BMI 2022-08-06 22:21:00 32.92 kg/m2 [facility] Oxygen saturation in 2022-08-06 22:21:00 98 /min [facility] by [facility] Systolic blood 2022-07-15 19:05:00 122 mm[Hg] [facility] Diastolic blood 2022-07-15 19:05:00 75 mm[Hg] [facility] Heart rate 2022-07-15 19:05:00 76 /min [facility] Body height 2022-07-15 19:05:00 157.5 cm [facility] Body weight 2022-07-15 19:05:00 81.647 kg [facility] BMI 2022-07-15 19:05:00 32.92 kg/m2 [facility] Systolic blood 2022-07-04 15:24:00 122 mm[Hg] [facility] Diastolic blood 2022-07-04 15:24:00 84 mm[Hg] [facility] Heart rate 2022-07-04 15:24:00 84 /min [facility] Systolic blood 2022-07-04 14:26:00 109 mm[Hg] [facility] Diastolic blood 2022-07-04 14:26:00 70 mm[Hg] [facility] Heart rate 2022-07-04 14:26:00 89 /min [facility] Respiratory rate 2022-07-04 14:26:00 18 /min [facility] Body height 2022-07-04 14:26:00 157.5 cm [facility] Body weight 2022-07-04 14:26:00 81.647 kg [facility] BMI 2022-07-04 14:26:00 32.92 kg/m2 [facility] Oxygen saturation in 2022-07-04 14:26:00 100 /min [facility] by [facility] Systolic blood 2022-07-02 04:00:00 124 mm[Hg] [facility] Diastolic blood 2022-07-02 04:00:00 75 mm[Hg] [facility] Heart rate 2022-07-02 04:00:00 81 /min [facility] Respiratory rate 2022-07-02 04:00:00 21 /min [facility] Oxygen saturation in 2022-07-02 04:00:00 95 /min [facility] Body temperature 2022-07-02 01:36:00 37.22 [facility] Body height 2022-07-02 01:36:00 157.5 cm [facility] Body weight 2022-07-02 01:36:00 85.276 kg [facility] BMI 2022-07-02 01:36:00 34.39 kg/m2 [facility] Systolic blood 2022-07-01 19:25:00 127 mm[Hg] [facility] Diastolic blood 2022-07-01 19:25:00 79 mm[Hg] [facility] Respiratory rate 2022-07-01 19:25:00 18 /min [facility] Oxygen saturation in 2022-07-01 19:25:00 95 /min [facility] Heart rate 2022-07-01 19:20:00 75 /min [facility] Body temperature 2022-07-01 16:27:00 36.56 [facility] Body height 2022-06-17 20:00:00 157.5 cm [facility] Body weight 2022-06-17 20:00:00 79.379 kg [facility] BMI 2022-06-17 20:00:00 32.01 kg/m2 [facility] Systolic blood 2022-07-01 17:05:00 138 mm[Hg] [facility] Diastolic blood 2022-07-01 17:05:00 88 mm[Hg] [facility] Oxygen saturation in 2022-07-01 17:05:00 93 /min [facility] Heart rate 2022-07-01 17:00:00 87 /min [facility] Respiratory rate 2022-07-01 17:00:00 15 /min [facility] Body temperature 2022-07-01 16:27:00 36.56 [facility] Body height 2022-06-17 20:00:00 157.5 cm [facility] Body weight 2022-06-17 20:00:00 79.379 kg [facility] BMI 2022-06-17 20:00:00 32.01 kg/m2 [facility] Systolic blood 2022-06-27 13:59:00 135 mm[Hg] [facility] Diastolic blood 2022-06-27 13:59:00 79 mm[Hg] [facility] Heart rate 2022-06-27 13:59:00 80 /min [facility] Body height 2022-06-27 13:59:00 157.5 cm [facility] Body weight 2022-06-27 13:59:00 85.322 kg [facility] BMI 2022-06-27 13:59:00 34.40 kg/m2 [facility] Oxygen saturation in 2022-06-27 13:59:00 95 /min [facility] by [facility] Respiratory rate 2022-05-08 00:05:00 16 /min [facility] Oxygen saturation in 2022-05-08 00:05:00 96 /min [facility] by [facility] Systolic blood 2022-05-07 22:20:00 138 mm[Hg] [facility] Diastolic blood 2022-05-07 22:20:00 82 mm[Hg] [facility] Heart rate 2022-05-07 22:20:00 78 /min [facility] Body temperature 2022-05-07 22:20:00 37.06 Laura [facility] Body height 2022-05-07 22:20:00 157.5 cm [facility] Body weight 2022-05-07 22:20:00 81.647 kg [facility] BMI 2022-05-07 22:20:00 32.92 kg/m2 [facility] Body height 2022-05-02 16:21:00 157.5 cm [facility] Body weight 2022-05-02 16:21:00 82.373 kg [facility] BMI 2022-05-02 16:21:00 33.22 kg/m2 [facility] Systolic blood 2022-04-23 14:33:00 138 mm[Hg] [facility] Diastolic blood 2022-04-23 14:33:00 85 mm[Hg] [facility] Heart rate 2022-04-23 14:33:00 77 /min [facility] Respiratory rate 2022-04-23 14:33:00 18 /min [facility] Body height 2022-04-23 14:33:00 157.5 cm [facility] Body weight 2022-04-23 14:33:00 85.276 kg [facility] BMI 2022-04-23 14:33:00 34.39 kg/m2 [facility] Systolic blood 2022-04-10 20:23:00 149 mm[Hg] [facility] Diastolic blood 2022-04-10 20:23:00 86 mm[Hg] [facility] Heart rate 2022-04-10 20:23:00 84 /min [facility] Body height 2022-04-10 20:14:00 157.5 cm [facility] Body weight 2022-04-10 20:14:00 85.186 kg [facility] BMI 2022-04-10 20:14:00 34.35 kg/m2 [facility] Body Temperature 2019-02-24 19:15:00 98.0 [degF] [facility] Heart Rate 2019-02-24 19:15:00 94 /min [facility] Respiratory rate 2019-02-24 19:15:00 20 /min [facility] BP Systolic 2019-02-24 19:15:00 134 mm[Hg] [facility] BP Diastolic 2019-02-24 19:15:00 71 mm[Hg] [facility] Heart Rate 2019-02-24 18:32:00 94 /min [facility] Respiratory rate 2019-02-24 18:32:00 20 /min [facility] BP Systolic 2019-02-24 18:32:00 134 mm[Hg] [facility] BP Diastolic 2019-02-24 18:32:00 71 mm[Hg] [facility] Weight 2019-02-24 18:32:00 180 [lb_av] [facility] BMI (Body Mass 2019-02-24 18:32:00 32.9 kg/m2 [facility] US Health Index) Procedures Procedure Date / Time Performing Clinician Source Performed ASSIGNMENT OF BENEFITS 2022-08-16 19:48:32 Doctor Unassbarbra, [facility] URIC ACID 2022-08-16 19:29:00 [facility] BASIC METABOLIC PANEL 2022-08-16 19:29:00 [facility] ([facility], K, CL, CO2, GLUCOSE, Medica l Branch BUN, CREATININE, CA) SEDIMENTATION RATE 2022-08-16 19:29:00 Juan Rodas [facility] CBC WITH DIFF 2022-08-16 19:29:00 [facility] XR KNEE 3 VW RIGHT 2022-08-16 19:22:07 [facility] FOR 2022-08-16 18:10:34 Doctor Unassbarbra, [facility] DIAGNOSIS AND TREATMENT [facility] BASIC METABOLIC PANEL 2022-08-06 22:45:00 Mely Hidalgo [facility] (NA, K, CL, CO2, GLUCOSE, Medica l Branch BUN, CREATININE, CA) SEDIMENTATION RATE 2022-08-06 22:45:00 Mely Hidalgo [facility] CBC WITH DIFF 2022-08-06 22:45:00 Mely Hidalgo [facility] CONSENT/REFUSAL FOR 2022-08-06 22:07:47 Doctor Unassbarbra, [facility] DIAGNOSIS AND TREATMENT [place] [facility] CBC WITH DIFF 2022-07-04 15:23:00 Daniel Bal [facility] o f [facility] CONSENT/REFUSAL FOR 2022-07-02 01:22:31 Doctor Sarmad [facility] DIAGNOSIS AND TREATMENT [facility] XR KNEE <3 VW RIGHT 2022-07-01 17:28:16 Clover Heath [facility] TOTAL KNEE ARTHROPLASTY 2022-07-01 14:03:00 [facility] 2022-07-01 12:54:00 Clover Heath [facility] URINALYSIS 2022-07-01 12:54:00 Clover Heath [facility] DSU PRE-OP 2022-07-01 05:01:00 Doctor Sarmad, [facility] [place] [facility] INSURANCE CORRESPONDENCE 2022-06-19 05:01:00 Doctor Sarmad, [facility] [place] [facility] EXTERNAL PROVIDER RECORDS 2022-06-06 05:01:00 Doctor Sarmad [facility] [place] [facility] ASSIGNMENT OF BENEFITS 2022-06-05 16:10:34 [facility]ad, [facility] [place] [facility] [place] XR CHEST 2 VW 2022-06-03 15:31:39 Clover Heath [facility] ASSIGNMENT OF BENEFITS 2022-06-03 14:39:37 Doctor [facility]ad, [facility] [place] [facility] INSURANCE CORRESPONDENCE 2022-05-17 05:01:00 Doctor Sarmad [facility] RAPID INFLUENZA A/B 2022-05-07 22:58:00 Marylou Soria [facility] COVID-19 (ID NOW RAPID 2022-05-07 22:58:00 Marylou Soria [facility] TESTING) [facility] [place] DSU PRE-OP 2022-05-06 06:01:00 Doctor Sarmad, [facility] [place] [facility] ASSIGNMENT OF BENEFITS 2022-04-10 20:09:33 Doctor Sarmad, [facility] [place] [facility] INSURANCE CORRESPONDENCE 2021-05-12 06:01:00 Doctor Unassigned, [facility] Plan of Care Planned Activity Planned Date Details Comments Source Future Scheduled Test 2022-10-03 Screening for Metho dist 12:30:30 malignant neoplasm of Hospit al colon (procedure) [code = 604907650] Future Scheduled Test 2022-10-03 Screening for Metho dist 12:30:30 malignant neoplasm of Hospit al colon (procedure) [code = 245522894] Future Scheduled Test 2022-10-03 Screening for Metho dist 12:30:30 malignant neoplasm of Hospit al colon (procedure) [code = 139002748] Future Scheduled Test 2022-10-03 Screening for Metho dist 12:30:30 malignant neoplasm of Hospit al cervix (procedure) [code = 903842142] Future Scheduled Test 2022-10-03 BREAST CANCER Metho dist 12:30:30 SCREENING [code = Hospital BREAST CANCER SCREENING] Future Scheduled Test 2022-10-03 Screening for Metho dist 12:30:30 malignant neoplasm of Hospit al colon (procedure) [code = 354734781] Future Scheduled Test 2022-10-03 Screening for Metho dist 12:30:30 malignant neoplasm of Hospit al colon (procedure) [code = 761596311] Future Scheduled Test 2022-10-03 SHINGLES VACCINES (1 Rastafarian 12:30:30 of 2) [code = SHINGLES Hospi angel VACCINES (1 of 2)] Future Scheduled Test 2022-10-03 COVID-19 VACCINE (3 - Rastafarian 12:30:30 Pfizer series) [code = Hospi angel COVID-19 VACCINE (3 - Pfizer series)] Future Scheduled Test 2022-10-03 INFLUENZA VACCINE M ethodist 12:30:30 [code = INFLUENZA Hospital VACCINE] Future Scheduled Test 2022-07-04 Screening for Metho dist 09:22:34 malignant neoplasm of Hospit al cervix (procedure) [code = 117852810] Future Scheduled Test 2022-07-04 BREAST CANCER Metho dist 09:22:34 SCREENING [code = Hospital BREAST CANCER SCREENING] Future Scheduled Test 2022-07-04 COLONOSCOPY SCREENING Rastafarian 09:22:34 [code = COLONOSCOPY Hospital SCREENING] Future Scheduled Test 2022-07-04 SHINGLES VACCINES (1 Rastafarian 09:22:34 of 2) [code = SHINGLES Hospi angel VACCINES (1 of 2)] Future Scheduled Test 2022-07-04 COVID-19 VACCINE (3 - Rastafarian 09:22:34 Booster for Pfizer Hospital series) [code = COVID-19 VACCINE (3 - Booster for Pfizer series)] Future Scheduled Test 2022-07-04 INFLUENZA VACCINE M ethodist 09:22:34 [code = INFLUENZA Hospital VACCINE] Future Scheduled Test 2022-06-06 Screening for Metho dist 22:09:49 malignant neoplasm of Hospit al cervix (procedure) [code = 647332972] Future Scheduled Test 2022-06-06 BREAST CANCER Metho dist 22:09:49 SCREENING [code = Hospital BREAST CANCER SCREENING] Future Scheduled Test 2022-06-06 COLONOSCOPY SCREENING Rastafarian 22:09:49 [code = COLONOSCOPY Hospital SCREENING] Future Scheduled Test 2022-06-06 SHINGLES VACCINES (1 Rastafarian 22:09:49 of 2) [code = SHINGLES Hospi angel VACCINES (1 of 2)] Future Scheduled Test 2022-06-06 COVID-19 VACCINE (3 - Rastafarian 22:09:49 Booster for Pfizer Hospital series) [code = COVID-19 VACCINE (3 - Booster for Pfizer series)] Future Scheduled Test 2022-06-06 INFLUENZA VACCINE M ethodist 22:09:49 [code = INFLUENZA Hospital VACCINE] Future Scheduled Test 2022-04-16 COVID-19 VACCINE (#1) Rastafarian 10:44:07 [code = COVID-19 Hospital VACCINE (#1)] Future Scheduled Test 2022-04-16 Pneumococcal Vaccine: Rastafarian 10:44:07 Pediatrics (0 to 5 Hospital Years) and At-Risk Patients (6 to 64 Years) (1 - PCV) [code = Pneumococcal Vaccine: Pediatrics (0 to 5 Years) and At-Risk Patients (6 to 64 Years) (1 - PCV)] Future Scheduled Test 2022-04-16 Hepatitis C screening Rastafarian 10:44:07 (procedure) [code = Hospital 323110314] Future Scheduled Test 2022-04-16 Screening for Metho dist 10:44:07 malignant neoplasm of Hospit al cervix (procedure) [code = 458377046] Future Scheduled Test 2022-04-16 BREAST CANCER Metho dist 10:44:07 SCREENING [code = Hospital BREAST CANCER SCREENING] Future Scheduled Test 2022-04-16 COLONOSCOPY SCREENING Rastafarian 10:44:07 [code = COLONOSCOPY Hospital SCREENING] Future Scheduled Test 2022-04-16 SHINGLES VACCINES (1 Rastafarian 10:44:07 of 2) [code = SHINGLES Hospi angel VACCINES (1 of 2)] Future Scheduled Test 2022-04-16 INFLUENZA VACCINE M ethodist 10:44:07 [code = INFLUENZA Hospital VACCINE] Future Scheduled Test 2022-03-28 COVID-19 VACCINE (#1) Rastafarian 06:17:38 [code = COVID-19 Hospital VACCINE (#1)] Future Scheduled Test 2022-03-28 Pneumococcal Vaccine: Rastafarian 06:17:38 Pediatrics (0 to 5 Hospital Years) and At-Risk Patients (6 to 64 Years) (1 - PCV) [code = Pneumococcal Vaccine: Pediatrics (0 to 5 Years) and At-Risk Patients (6 to 64 Years) (1 - PCV)] Future Scheduled Test 2022-03-28 Hepatitis C screening Rastafarian 06:17:38 (procedure) [code = Hospital 244399368] Future Scheduled Test 2022-03-28 Screening for Metho dist 06:17:38 malignant neoplasm of Hospit al cervix (procedure) [code = 374318953] Future Scheduled Test 2022-03-28 BREAST CANCER Metho dist 06:17:38 SCREENING [code = Hospital BREAST CANCER SCREENING] Future Scheduled Test 2022-03-28 COLONOSCOPY SCREENING Rastafarian 06:17:38 [code = COLONOSCOPY Hospital SCREENING] Future Scheduled Test 2022-03-28 SHINGLES VACCINES (1 Rastafarian 06:17:38 of 2) [code = SHINGLES Hospi angel VACCINES (1 of 2)] Future Scheduled Test 2022-03-28 INFLUENZA VACCINE M ethodist 06:17:38 [code = INFLUENZA Hospital VACCINE] Future Scheduled Test 2022-02-21 COVID-19 VACCINE (#1) Rastafarian 20:21:57 [code = COVID-19 Hospital VACCINE (#1)] Future Scheduled Test 2022-02-21 Pneumococcal Vaccine: Rastafarian 20:21:57 Pediatrics (0 to 5 Hospital Years) and At-Risk Patients (6 to 64 Years) (1 - PCV) [code = Pneumococcal Vaccine: Pediatrics (0 to 5 Years) and At-Risk Patients (6 to 64 Years) (1 - PCV)] Future Scheduled Test 2022-02-21 Hepatitis C screening Rastafarian 20:21:57 (procedure) [code = Hospital 029613815] Future Scheduled Test 2022-02-21 Screening for Metho dist 20:21:57 malignant neoplasm of Hospit al cervix (procedure) [code = 123122259] Future Scheduled Test 2022-02-21 BREAST CANCER Metho dist 20:21:57 SCREENING [code = Hospital BREAST CANCER SCREENING] Future Scheduled Test 2022-02-21 COLONOSCOPY SCREENING Rastafarian 20:21:57 [code = COLONOSCOPY Hospital SCREENING] Future Scheduled Test 2022-02-21 SHINGLES VACCINES (1 Rastafarian 20:21:57 of 2) [code = SHINGLES Hospi angel VACCINES (1 of 2)] Future Scheduled Test 2022-02-21 INFLUENZA VACCINE M ethodist 20:21:57 [code = INFLUENZA Hospital VACCINE] Future Scheduled Test 2021-10-31 HEPATITIS B VACCINES Rastafarian 12:20:25 (1 of 3 - 3-dose Hospital series) [code = HEPATITIS B VACCINES (1 of 3 - 3-dose series)] Future Scheduled Test 2021-10-31 COVID-19 VACCINE (#1) Rastafarian 12:20:25 [code = COVID-19 Hospital VACCINE (#1)] Future Scheduled Test 2021-10-31 Pneumococcal Vaccine: Rastafarian 12:20:25 Pediatrics (0 to 5 Hospital Years) and At-Risk Patients (6 to 64 Years) (1 - PCV) [code = Pneumococcal Vaccine: Pediatrics (0 to 5 Years) and At-Risk Patients (6 to 64 Years) (1 - PCV)] Future Scheduled Test 2021-10-31 Hepatitis C screening Rastafarian 12:20:25 (procedure) [code = Hospital 572435640] Future Scheduled Test 2021-10-31 Screening for Metho dist 12:20:25 malignant neoplasm of Hospit al cervix (procedure) [code = 866722863] Future Scheduled Test 2021-10-31 BREAST CANCER Metho dist 12:20:25 SCREENING [code = Hospital BREAST CANCER SCREENING] Future Scheduled Test 2021-10-31 COLONOSCOPY SCREENING Rastafarian 12:20:25 [code = COLONOSCOPY Hospital SCREENING] Future Scheduled Test 2021-10-31 SHINGLES VACCINES (1 Rastafarian 12:20:25 of 2) [code = SHINGLES Hospi angel VACCINES (1 of 2)] Future Scheduled Test 2021-10-31 INFLUENZA VACCINE M ethodist 12:20:25 [code = INFLUENZA Hospital VACCINE] Future Scheduled Test 2021-10-25 HEPATITIS B VACCINES Rastafarian 09:31:21 (1 of 3 - 3-dose Hospital series) [code = HEPATITIS B VACCINES (1 of 3 - 3-dose series)] Future Scheduled Test 2021-10-25 COVID-19 VACCINE (#1) Rastafarian 09:31:21 [code = COVID-19 Hospital VACCINE (#1)] Future Scheduled Test 2021-10-25 Pneumococcal Vaccine: Rastafarian 09:31:21 Pediatrics (0 to 5 Hospital Years) and At-Risk Patients (6 to 64 Years) (1 - PCV) [code = Pneumococcal Vaccine: Pediatrics (0 to 5 Years) and At-Risk Patients (6 to 64 Years) (1 - PCV)] Future Scheduled Test 2021-10-25 Hepatitis C screening Rastafarian 09:31:21 (procedure) [code = Hospital 083903193] Future Scheduled Test 2021-10-25 Screening for Metho dist 09:31:21 malignant neoplasm of Hospit al cervix (procedure) [code = 529014654] Future Scheduled Test 2021-10-25 BREAST CANCER Metho dist 09:31:21 SCREENING [code = Hospital BREAST CANCER SCREENING] Future Scheduled Test 2021-10-25 COLONOSCOPY SCREENING Rastafarian 09:31:21 [code = COLONOSCOPY Hospital SCREENING] Future Scheduled Test 2021-10-25 SHINGLES VACCINES (1 Rastafarian 09:31:21 of 2) [code = SHINGLES Hospi angel VACCINES (1 of 2)] Future Scheduled Test 2021-10-25 INFLUENZA VACCINE M ethodist 09:31:21 [code = INFLUENZA Hospital VACCINE] Future Scheduled Test Streptococcus pyogenes [facility] culture [code = LIVE HCIS 01126-5] Goal Patient referral [code [facility] = 8607719 ] LIVE HCIS Instructions [place] Problems LIVE HCIS Instructions [place] Problems (DC) LIVE HCIS Encounters Start End Encounter Admission Attending Care Care Encounter Source Date/Time Date/Time Type Type Clinicians Facility Department ID 2022-05-28 Outpatient Issa [facility] [id number] Univers 15:05:28 CLOVER odell [facility] 2021-04-05 Out[facility] [id number] Univers 13:48:24 CLOVER odell [facility] 2021-03-14 Outpatient [facility] [id number] Univers 11:49:06 CLOVER odell [facility] 2020-12-30 Emergency [facility] [id number] Univers 16:14:45 itestefania [facility] 2020-12-30 Emergency [facility] [id number] Univers [facility]:54[facility]10 2022-09-10 [facility] [id number] Univers 13:02:49 23:59:00 DANIEL odell [facility] 2022-09-10 2022-09-10 Office [facility] 1.2.840.114 [id number] Univers 13:00:00 13:15:00 Visit Daniel [facility] 350.1.13.10 it y [facility] 4.2.7.2.686 Bill as CHRISTINA?BLEA [id number] Pr berta [address] MEDICAL OFFICE BUILDING 2022-08-22 2022-08-22 Outpatient [facility] [id number] Univers 08:30:00 08:30:00 DANIEL estefania [facility] 2022-08-16 2022-08-16 Emergency X [facility] ERT [id number] Univers 13:26:00 16:32:00 JUAN estefania [facility] 2022-08-16 2022-08-16 Emergency [facility] 1.2.840.114 [id number] Univers 13:26:00 16:32:00 Juan [facility] 350.1.13.10 i ty of [place] 4.2.7.2.686 [facility] [id number] [address] 2022-08-16 2022-08-16 Telephone [facility] 1.2.840.114 [id number] Univers 00:00:00 00:00:00 [facility] 350.1.13.10 it y of [place] 4.2.7.2.686 Bill as CHRISTINA?BLEA [id number] Pr berta [address] [facility] OFFICE [facility] 2022-08-15 2022-08-15 Outpatient R MALLY [facility] [id number] Univers 13:00:00 13:00:00 DANIEL jose r [facility] 2022-08-09 2022-08-09 Office [facility] [id number] Univers 08:30:00 08:30:00 Visit Clover [facility] 350.1.13.10 it y [facility] 4.2.7.2.686 Bill as CHRISTINA?BLEA [phone] Pr berta SHAW [address] [place] [address] 2022-08-09 2022-08-09 Outpatient [facility] [id number] Univers 08:30:00 08:24:23 CLOVER odell [facility] 2022-08-07 2022-08-07 Telephone [facility] 1.2.840.114 [id number] Univers 00:00:00 00:00:00 Clover [facility] 350.1.13.10 it y [facility] 4.2.7.2.686 Bill as CHRISTINA?BLEA [id number] Pr berta SHAW [address] [place] [address] 2022-08-06 2022-08-06 Emergency X [facility] ERT [id number] Univers 17:24:00 19:24:00 CYNAVINASH estefania [facility] 2022-08-06 2022-08-[address] [facility] [id number] Univers 17:24:00 19:24:00 Cynise TABITHA 350.1.13.10 i ty [place] 4.2.7.2.686 [place] [id number] [address] 2022-08-06 2022-08-06 Telephone [facility] 1.2.840.114 [id number] Univers 00:00:00 00:00:00 Clover Mandujano [employer] 350.1.13.10 it y of [place] 4.2.7.2.686 Bill as CHRISTINA?BLEA [id number] Pr berta SHAW [address] [place] [address] OFFICE [facility] 2022-07-26 2022-07-26 Telephone [facility] [id number] Univers 00:00:00 00:00:00 Daniel S HEALTH 350.1.13.10 it y of [place] 4.2.7.2.686 Bill as CHRISTINA?BLEA [id number] Pr berta SH[address] [facility] OFFICE [facility] 2022-07-25 2022-07-25 Telephone [facility] 1.2.768.262 [id number] Univers 00:00:00 00:00:00 Daniel S HEALTH 350.1.13.10 it y of [place] 4.2.7.2.686 Bill as CHRISTINA?BLEA [phone] Pr berta SHAW [address] [facility][note 2] 2022-07-15 2022-07-15 Outpatient [facility] [id number] Univers 14:16:48 23:59:00 DANIEL it of [facility] 2022-07-15 2022-07-15 Office [facility] 1.2.840.114 [id number] Univers 14:30:00 14:45:00 Visit Daniel S HEALTH 350.1.13.10 it y of [place] 4.2.7.2.686 Bill as CHRISTINA?BLEA [id number] Pr berta SHAW [address] [facility][note 2] 2022-07-11 2022-07-11 Telephone [facility] 1.2.840.114 [id number] Univers 00:00:00 00:00:00 Clover L HEALTH 350.1.13.10 it y of [place] 4.2.7.2.686 Bill as CHRISTINA?BLEA [id number] Pr berta SH[address] [facility] OFFICE [facility] 2022-07-10 2022-07-10 [place] [facility] 1.2.700.667 [id number] Univers 00:00:00 00:00:00 Daniel S HEALTH 350.1.13.10 it y of [place] 4.2.7.2.686 Bill as CHRISTINA?BLEA [id number] Pr berta SH[address] [facility] OFFICE [facility] 2022-07-08 2022-07-08 Outpatient Issa [facility] [id number] Univers 14:15:00 14:15:00 DANIEL estefania [facility] 2022-07-05 2022-07-05 Telephone [facility] 1.2.728.502 [id number] Univers 00:00:00 00:00:00 Daniel De La Paz [facility] 350.1.13.10 it y of [place] 4.2.7.2.686 Bill as CHRISTINA?BLEA [id number] Pr berta SHAW [address] [facility] [place][note 2] 2022-07-04 2022-07-04 Outpatient R MALLY [facility] [id number] Univers 09:15:00 11:49:40 DANIEL estefania [facility] 2022-07-04 2022-07-04 Office [facility] 1.2.840.114 [id number] Univers 09:15:00 11:49:40 Visit [facility] 350.1.13.10 it y of [place] 4.2.7.2.686 Bill as CHRISTINA?BLEA [phone] Pr berta SHAW [address] [facility][note 2] 2022-07-04 2022-07-04 Tech Writer Lab, Ang - [facility] 1.2.840.1 [id number] Univers 10:30:00 10:45:00 Visit Daniel Bal [facility] 350.1.13.10 ity of [place] 4.2.7.2.686 Bill as CHRISTINA?BLEA [id number] Pr berta SHAW [address] [facility][note 2] 2022-07-01 2022-07-02 Emergency X SERGIO [facility] ERT [id number] Univers 20:40:00 01:05:00 MARYLOU itestefania [facility] 2022-07-01 2022-07-02 Emergency [facility] 1.2.647.734 [id number] Univers 20:40:00 01:05:00 Marylou S BEAUTY 350.1.13.10 i ty of [place] 4.2.7.2.686 [place] [id number] [address] 2022-07-01 2022-07-01 Outpatient R KUMAR [facility] SOR [id number] Univers 07:03:00 14:55:00 CLOVER itestefania [facility] 2022-07-01 2022-07-01 Hospital [facility] 1.2.840.114 [id number] Univers 07:03:00 14:55:00 Encounter Clover LU 350.1.13.10 ity of [facility] 4.2.7.2.686 [place] [id number] [facility] [address] [place] 2022-07-01 2022-07-01 Surgery [facility] [id number] Univers 09:50:00 12:08:00 Clover LU 350.1.13.10 i ty of [place] 4.2.7.2.686 [place] [id number] [facility] [address] 2022-07-01 2022-07-01 Orders Doctor YOLIS 1.2.840.114 [id number] Univers 00:00:00 00:00:00 Only Unassigned, TIN 350.1.13.10 ity of [place] [facility] 4.2.7.2.686 Bill as [id number] [address] 2022-06-27 2022-06-27 Office [facility] 1.2.840.114 [id number] Univers 09:00:00 09:15:00 Visit Daniel [facility] 350.1.13.10 it y [facility] 4.2.7.2.686 Bill as CHRISTINA?BLEA [id number] Pr berta SHAW [address] [place] [address] MEDICAL OFFICE BUILDING 2022-06-27 2022-06-27 Outpatient Issa BAL [facility] [id number] Univers 09:00:00 09:00:00 DANIEL odell [facility] 2022-06-24 2022-06-24 Outpatient Issa [facility] [id number] Univers 13:45:00 13:45:00 DANIEL jose r [facility] 2022-06-20 2022-06-20 Telephone [facility] 1.2.840.114 [id number] Univers 00:00:00 00:00:00 Clover Mandujano HEALTH 350.1.13.10 it y [facility] 4.2.7.2.686 Bill as CHRISTINA?BLEA [phone] Pr berta SH[address] [facility] OFFICE [facility] 2022-06-19 2022-06-19 Telephone [facility] 1.2.840.114 [id number] Univers 00:00:00 00:00:00 Clover L HEALTH 350.1.13.10 it y of [place] 4.2.7.2.686 Bill as CHRISTINA?BLEA [phone] Pr berta SHAW [address] [facility] OFFICE [facility] 2022-06-19 2022-06-19 Orders Doctor YOLIS 1.2.840.114 [id number] Univers 00:00:00 00:00:00 Only Unassigned, TIN 350.1.13.10 ity of [place] [facility] 4.2.7.2.686 Bill as [id number] [address] 2022-06-17 2022-06-17 Telephone [facility] 1.2.840.114 [id number] Univers 00:00:00 00:00:00 Clover L HEALTH 350.1.13.10 it y of [place] 4.2.7.2.686 Bill as CHRISTINA?BLEA [phone] Pr berta SHAW [address] [facility] [place][note 2] 2022-06-13 2022-06-13 Outpatient R MALLY [facility] [id number] Univers 08:15:00 08:15:00 DANIEL ity of [facility] 2022-06-06 2022-06-06 Telephone Mally [facility] 1.2.812.209 [id number] Univers 00:00:00 00:00:00 [facility] HEALTH 350.1.13.10 it y of [place] 4.2.7.2.686 Bill as CHRISTINA?BLEA [id number] Pr berta SHAW [address] [facility] [place][note 2] 2022-06-06 2022-06-06 Orders Doctor YOLIS 1.2.840.114 [id number] Univers 00:00:00 00:00:00 Only Unassigned, TIN 350.1.13.10 ity of [place] [facility] 4.2.7.2.686 Bill as [id number] [address] 2022-06-05 2022-06-05 Laboratory Only, Adc Test [facility] 1.2.840. 114 [id number] Univers 09:30:00 09:45:00 Only Clover Heath 350.1.13.10 ity of [facility] 4.2.7.2.686 [place] [facility] [id number] [facility] [address] 2022-06-05 2022-06-05 Outpatient [facility] [id number] Univers 09:30:00 09:30:00 [facility] 2022-06-05 Orders Doctor YOLIS 1.2.840.114 [id number] Univers 00:00:00 00:00:00 Only Unassigned, [place] 350.1.13.10 ity of [place] [facility] 4.2.7.2.686 Bill as [phone] [facility] [address] 2022-06-05 2022-06-05 Telephone [facility] 1.2.840.114 [id number] Univers 00:00:00 00:00:00 [place] [facility] 350.1.13.10 it y of [facility] 4.2.7.2.686 Bill as CHRISTINA?BLEA [phone] [facility] [address] [facility] 2022-06-03 2022-06-03 Tech Writer Roman, Adc Lab Main [facility] 1.2.8 40.114 [id number] Univers 09:45:00 10:00:00 Visit [place] 350.1.13.10 ity of [facility] 4.2.7.2.686 [place] [phone] [facility] [address] [facility] 2022-06-03 2022-06-03 Outpatient [facility] [id number] Univers 09:52:23 09:52:23 CLOVER rileyestefania [facility] 2022-06-03 2022-06-03 [facility] 1.2.840.114 [id number] Univers 09:52:23 09:52:23 Encounter Clover Nazia LU 350.1.13.10 ity of [facility] 4.2.7.2.[place] [phone] [facility] [address] 2022-06-03 2022-06-03 Orders Doctor YOLIS 1.2.840.114 [id number] Univers 00:00:00 00:00:00 Only Unassigned, TIN 350.1.13.10 ity of [place] [facility] 4.2.7.2.686 Bill as [phone] [address] 2022-05-28 2022-05-28 Telephone [facility]AD[facility] 1.2.840.114 10 [id number] Univers 00:00:00 00:00:00 Clover Mandujano HEALTH 350.1.13.10 it y of [place] 4.2.7.2.686 Bill as CHRISTINA?BLEA [phone] [address] MEDICAL OFFICE BUILDING 2022-05-23 2022-05-23 Outpatient [facility] [id number] Univers 08:30:00 08:30:00 DANIEL estefania [facility] 2022-05-21 2022-05-21 Outpatient R [facility] [id number] Univers 09:20:00 09:20:00 FERNANDO ity o f [facility] 2022-05-21 2022-05-21 Outpatient [facility] [id number] Univers 08:40:00 08:40:00 NGA [facility] 2022-05-17 2022-05-17 Orders Doctor OYLIS 1.2.840.114 [id number] Univers 00:00:00 00:00:00 Only Unassigned, TIN 350.1.13.10 ity of [place] [facility] 4.2.7.2.686 Bill as [phone] [address] 2022-05-09 2022-05-09 Outpatient FOG_Brown_B AOSM AOSM 544 4025-20 Traci 00:00:00 00:00:00 Trina [id number] Orth ope dic Sports [facility] 2022-05-09 2022-05-09 Telephone [facility]AD[facility] 1.2.646.013 [id number] Univers 00:00:00 00:00:00 Daniel De La Paz HEALTH 350.1.13.10 it y of [place] 4.2.7.2.686 Bill as CHRISTINA?BLEA [phone] Me berta SHAW [address] MEDICAL OFFICE [facility] 2022-05-08 2022-05-08 Telephone Mally [facility] 1.2.884.841 [id number] Univers 00:00:00 00:00:00 Daniel S HEALTH 350.1.13.10 it y of [place] 4.2.7.2.686 Bill as CHRISTINA?BLEA [phone] Me berta SHAW [address] [facility] OFFICE [facility] 2022-05-08 2022-05-08 Telephone Kumar [facility] 1.2.840.114 10 [id number] Univers 00:00:00 00:00:00 Clover L HEALTH 350.1.13.10 it y [facility] 4.2.7.2.686 Bill as CHRISTINA?BLEA [phone] Pr berta SHAW 198 [facility][note 2] 2022-05-07 2022-05-07 Emergency X SERGIOAD[facility] ERT [id number] Univers 16:23:00 18:51:00 MARYLOU ity of [facility] 2022-05-07 2022-05-07 Emergency SergioADVANCED [facility] 1.2.521.535 [id number] [id number] Univers 16:23:00 18:51:00 Marylou S BEAUTY 350.1.13.10 i ty of [place] 4.2.7.2.[place] [id number] [facility] [address] 2022-05-07 2022-05-07 Prep For Mally NMAARON 1.2.840.114 [id number] Univers 00:00:00 00:00:00 Surgery Daniel S HEALTH 350.1.13.10 it y [facility] 4.2.7.2.686 Bill as CHRISTINA?BLEA [id number] Me berta SHAW [address] [facility] OFFICE [facility] 2022-05-06 2022-05-06 Orders Doctor YOLIS 1.2.840.114 [id number] Univers 00:00:00 00:00:00 Only Unassigned, TIN 350.1.13.10 ity of [place] [facility] 4.2.7.2.686 Bill as [phone] [facility] [address] 2022-05-02 2022-05-02 Office [facility]ADV[facility] 1.2.840.114 [id number] Univers 11:15:00 11:30:00 Visit Daniel MENDOZA 350.1.13.10 it y of [place] 4.2.7.2.686 Bill as CHRISTINA?BLEA [phone] Pr berta SHAW 198 [facility] [place][note 2] 2022-05-02 2022-05-02 Outpatient R [facility] [id number] Univers 11:15:00 11:12:40 DANIEL estefania [facility] 2022-04-25 2022-04-25 Telephone [facility] 1.2.840.114 [id number] Univers 00:00:00 00:00:00 Clover Mandujano HEALTH 350.1.13.10 it y of [place] 4.2.7.2.686 Bill as CHRISTINA?BLEA [id number] Pr berta SHAW [address] [place] [address] 2022-04-23 2022-04-23 Outpatient R [facility] [id number] Univers 08:40:00 13:00:21 NGA odell [facility] 2022-04-23 2022-04-23 Office KarlaADVANCED [facility] 1.2.840.114 [id number] Univers 08:40:00 09:20:00 Visit Nga LU 350.1.13.10 i ty of [facility] 4.2.7.2.[place] [id number] Pr dical NAL [address] [facility] 2022-04-16 2022-04-16 Telephone HeathAD[facility] 1.2.840.114 10 [id number] Univers 00:00:00 00:00:00 Clover Mandujano HEALTH 350.1.13.10 it y of [place] 4.2.7.2.686 Bill as CHRISTINA?BLEA [id number] Pr berta SHAW 198 [facility] [place][note 2] 2022-04-10 2022-04-10 Outpatient R [facility]ATHPAR[facility] [id number] Univers 14:45:00 15:18:38 CLOVER odell [facility] 2022-04-10 2022-04-10 Office HeathAD[facility] 1.2.840.779 [id number] Univers 14:45:00 15:18:38 Visit Clover Mandujano [facility] 350.1.13.10 it y of [place] 4.2.7.2.686 Bill as CHRISTINA?BLEA [phone] Pr dical COLIN [address] [place] [address] 2022-04-10 2022-04-10 Orders Doctor YOLIS 1.2.840.114 [id number] Univers 00:00:00 00:00:00 Only Unassigned, TIN 350.1.13.10 [facility] 4.2.7.2.686 Bill as [phone] [address] 2022-04-08 2022-04-08 Outpatient R [facility] [id number] Univers 14:00:00 14:00:00 [facility] 2021-12-27 2021-12-27 Outpatient R [facility] [id number] Univers 08:30:00 08:30:00 [facility] 2021-12-24 2021-12-24 Outpatient Issa [facility] [id number] Univers 14:45:00 14:45:00 DANIEL [facility] 2021-12-19 2021-12-19 Telephone HeathAD[facility] 1.2.840.114 [id number] Univers 00:00:00 00:00:00 Clover [facility] 350.1.13.10 i ty of [place] 4.2.7.2.686 [place] [phone] Pr diccholo SAENZ [address] [place] [address] 2021-11-25 2021-11-25 Outpatient FOG_Brown_B AOSM AOSM 544 4025-20 Traci 00:00:00 00:00:00 Trina [id number] Orth ope dic Sports Medicin e 2021-11-14 2021-11-14 Outpatient FOG_Brown_B AOSM AOSM 544 4025-20 Traci 00:00:00 00:00:00 Trina [id number] Orth ope dic Sports Medicin e 2021-11-11 2021-11-11 Outpatient FOG_Brown_B AOSM AOSM 544 4025-20 Traci 00:00:00 00:00:00 Trina [id number] Orth ope dic Sports Medicin e 2021-08-31 2021-08-31 [facility] BalADV[facility] 1.2.840.114 [id number] Univers 00:00:00 00:00:00 [facility] HEALTH 350.1.13.10 it y of [place] 4.2.7.2.686 Bill as CHRISTINA?BLEA [phone] Pr diccholo SHAW 198 [facility][note 2] 2021-07-23 2021-07-23 [facility] HeathADV[facility] 1.2.142.084 [id number] Univers 00:00:00 00:00:00 Clover Mandujano HEALTH 350.1.13.10 it y of [place] 4.2.7.2.686 Bill as CHRISTINA?BLEA [phone] Pr berta SHAW 198 [facility][note 2] 2021-06-06 2021-06-06 Outpatient FOG_Brown_B AOSM AOSM 544 4025-20 Traci 10:52:00 10:52:00 Trina 240702 Orth ope dic Sports Medicin e 2021-06-06 2021-06-06 Outpatient FOG_Brown_B AOSM AOSM 544 4025-20 Traci 10:52:00 10:52:00 Trina 239506 Orth ope dic Sports Medicin e 2021-06-06 2021-06-06 Outpatient FOG_Brown_B AOSM AOSM 544 4025-20 Traci 00:00:00 00:00:00 Trina [id number] Orth ope dic Sports Medicin e 2021-05-15 2021-05-15 [place] HeathAD[facility] 1.2.840.114 [id number] Univers 00:00:00 00:00:00 Clover Mandujano HEALTH 350.1.13.10 it y of [place] 4.2.7.2.686 Bill as CHRISTINA?BLEA [phone] Pr diccholo SHAW 198 [facility][note 2] 2021-05-12 2021-05-12 Orders Doctor LAGOS 1.2.840.114 [id number] Univers 00:00:00 00:00:00 Only Unassigned, TIN 350.1.13.10 [facility] 4.2.7.2.686 Bill as [phone] [address] 2021-05-11 2021-05-11 Outpatient Issa [facility] [id number] Univers 10:45:00 10:45:00 DANIEL odell [facility] 2021-05-11 2021-05-11 Telephone [facility]AD[facility] 1.2.840.114 [id number] Univers 00:00:00 00:00:00 Clover Mandujano [employer] 350.1.13.10 it y of [place] 4.2.7.2.686 Bill as CHRISTINA?BLEA [phone] Pr berta SHAW [address] [place] [address] OFFICE [facility] 2021-05-08 2021-05-08 Telephone HeathAD[facility] 1.2.840.114 [id number] Univers 00:00:00 00:00:00 Clover Mandujano [employer] 350.1.13.10 it y of [place] 4.2.7.2.686 Bill as CHRISTINA?BLEA [phone] Pr berta SHAW [address] [place] [address] 2021-05-07 2021-05-07 Telephone [facility]AD[facility] 1.2.840.114 91 [id number] Univers 00:00:00 00:00:00 Clover Mandujano [employer] 350.1.13.10 it y of [place] 4.2.7.2.686 Bill as CHRISTINA?BLEA [phone] Pr berta SHAW [address] [place] [address] 2021-04-27 2021-04-27 Outpatient Issa [facility] [id number] Univers 09:00:00 09:00:00 CLOVERYENY odell [facility] 2021-04-27 2021-04-27 Outpatient Issa [facility] [id number] Univers 00:00:00 00:00:00 CLOVERYENY odell [facility] 2021-04-23 2021-04-23 Outpatient Issa [facility] [id number] Univers 13:30:00 13:30:00 DANIEL jose r [facility] 2021-04-20 2021-04-20 Outpatient R [facility] [id number] Univers 00:00:00 00:00:00 CLOVER odell [facility] 2021-04-20 2021-04-20 Telephone [facility] 1.2.840.114 [id number] Univers 00:00:00 00:00:00 Clover Mandujano HEALTH 350.1.13.10 it y of [place] 4.2.7.2.686 Bill as CHRISTINA?BLEA [phone] Pr berta SHAW [address] [place] [address] OFFICE [facility] 2021-04-17 2021-04-17 [facility] 1.2.840.114 [id number] Univers 00:00:00 00:00:00 Clover Mandujano HEALTH 350.1.13.10 it y of [place] 4.2.7.2.686 Bill as CHRISTINA?BLEA [id number] Pr berta SHAW [address] [place] [address] OFFICE [facility] 2021-04-17 2021-04-17 [facility] 1.2.840.114 [id number] Univers 00:00:00 00:00:00 Clover Mandujano HEALTH 350.1.13.10 it y of [place] 4.2.7.2.686 Bill as CHRISTINA?BLEA [phone] Pr berta SHAW [address] [place] [address] OFFICE [facility] 2021-04-11 2021-04-11 [facility] 1.2.840.114 91 [id number] Univers 00:00:00 00:00:00 Clover Mandujano HEALTH 350.1.13.10 it y of [place] 4.2.7.2.686 Bill as CHRISTINA?BLEA [phone] Pr berta SHAW [address] [place] [address] OFFICE [facility] 2021-04-11 2021-04-11 [facility] 1.2.840.114 [id number] Univers 00:00:00 00:00:00 Clover Mandujano HEALTH 350.1.13.10 it y of [place] 4.2.7.2.686 Bill as CHRISTINA?BLEA [phone] Pr berta SHAW [address] [place] [address] OFFICE [facility] 2021-04-06 2021-04-06 Outpatient R [facility] [id number] Univers 08:15:00 08:15:00 [facility] 2021-04-06 2021-04-06 Telephone [facility]AD[facility] 1.2.437.523 [id number] Univers 00:00:00 00:00:00 [facility] 350.1.13.10 it y of [place] 4.2.7.2.686 Bill as CHRISTINA?BLEA [phone] Pr berta SHAW 198 [facility][note 2] 2021-04-05 2021-04-05 Outpatient R [facility] [id number] Univers 13:15:00 13:43:22 [facility] 2021-04-05 2021-04-05 Office [facility]AD[facility] 1.2.840.114 [id number] Univers 13:15:00 13:30:00 Visit [facility] 350.1.13.10 it y of [place] 4.2.7.2.686 Bill as CHRISTINA?BLEA [phone] Pr berta [address] 2021-04-05 2021-04-05 Outpatient Issa [facility] [id number] Univers 13:15:00 13:15:00 [facility] 2021-04-05 2021-04-05 Letter Doctor YOLIS 1.2.840.114 [id number] Univers 00:00:00 00:00:00 (Out) Unassigned, TIN 350.1.13.10 ity of [place] [facility] 4.2.7.2.686 Bill as [phone] [address] 2021-04-05 2021-04-05 Letter Doctor YOLIS 1.2.840.114 [id number] Univers 00:00:00 00:00:00 (Out) Unassigned, TIN 350.1.13.10 ity of [place] [facility] 4.2.7.2.686 Bill as [phone] [address] 2021-04-03 2021-04-03 Outpatient Issa [facility] [id number] Univers 13:00:00 13:00:00 [facility] 2021-04-02 2021-04-02 Outpatient Issa LUEVANO [facility] [id number] Univers 10:30:00 10:30:00 SENDIL ity [facility] 2021-04-02 2021-04-02 Outpatient R BASSEM [facility] [id number] Univers 10:30:00 10:30:00 SENDIL ity [facility] 2021-03-29 2021-03-29 Outpatient [facility] [id number] Univers 13:00:00 13:00:00 CLOVER itestefania [facility] 2021-03-29 2021-03-29 Refill KumarADVANCED [facility] 1.2.151.778 [id number] Univers 00:00:00 00:00:00 Clover Mandujano HEALTH 350.1.13.10 it y of [place] 4.2.7.2.686 Bill as CHRISTINA?BLEA [id number] [address] 2021-03-29 2021-03-29 Telephone HeathAD[facility] 1.2.840.114 [id number] Univers 00:00:00 00:00:00 Clover Mandujano HEALTH 350.1.13.10 it [facility] 4.2.7.2.686 Bill as CHRISTINA?BLEA [phone] [address] 2021-03-28 2021-03-28 Orders Doctor YOLIS 1.2.840.114 [id number] Univers 00:00:00 00:00:00 Only Unassigned, TIN 350.1.13.10 ity of [place] [facility] 4.2.7.2.686 Bill as [phone] [address] 2021-03-23 2021-03-23 Outpatient R [facility] [id number] Univers 11:30:00 11:30:00 CLOVERYENY odell [facility] 2021-03-20 2021-03-20 Orders Doctor YOLIS 1.2.840.114 [id number] Univers 00:00:00 00:00:00 Only Unassigned, TIN 350.1.13.10 ity of [place] [facility] 4.2.7.2.686 Bill as [id number] [address] 2021-03-16 2021-03-16 Telephone Kumar [facility] 1.2.840.114 [id number] Univers 00:00:00 00:00:00 Clover MENDOZA 350.1.13.10 it y of [place] 4.2.7.2.686 Bill as CHRISTINA?BLEA [phone] Pr berta SHAW [address] MEDICAL OFFICE [facility] 2021-03-15 2021-03-15 Outpatient R KUMAR [facility] [id number] Univers 13:00:00 13:00:00 CLOVER odell [facility] 2021-03-09 2021-03-09 Prep For [facility]AD[facility] 1..840.114 [id number] [id number] Univers 00:00:00 00:00:00 Surgery Clover MENDOZA 350.1.13.10 it y of [place] 4.2.7.2.686 Bill as CHRISTINA?BLEA [phone] Pr berta SHAW [address] [place] [address] OFFICE [facility] 2021-03-05 2021-03-05 Outpatient R [facility] [id number] Univers 14:15:00 14:42:32 CLOVER odell [facility] 2021-03-05 2021-03-05 Office KumarADV[facility] 1..733.299 [id number] Univers 14:15:00 14:42:32 Visit Clover MENDOZA 350.1.13.10 it y of [place] 4.2.7.2.686 Bill as CHRISTINA?BLEA [id number] Pr inocenciocholo SHAW [address] MEDICAL OFFICE [facility] 2021-03-05 2021-03-05 Orders Doctor YOLIS 1.2.840.114 [id number] Univers 00:00:00 00:00:00 Only Unassigned, TIN 350.1.13.10 ity of [place] [facility] 4.2.7.2.686 Bill as [phone] [address] 2021-03-05 2021-03-05 Telephone Kumar NMAARON 1.2.840.114 [id number] Univers 00:00:00 00:00:00 Clover Mandujano [employer] 350.1.13.10 it y of [place] 4.2.7.2.686 Bill as CHRISTINA?BLEA [phone] Me berta SHAW [address] [facility] OFFICE [facility] 2021-02-12 2021-02-12 Outpatient R KUMAR [facility] [id number] Univers 13:45:00 13:45:00 CLOVER itestefania [facility] 2021-02-01 2021-02-01 Telephone [facility]AD[facility] 1.2.840.114 [id number] Univers 00:00:00 00:00:00 Clover Mandujano HEALTH 350.1.13.10 it y of [place] 4.2.7.2.686 Bill as CHRISTINA?BLEA [phone] Pr berta SHAW [address] [facility] OFFICE [facility] 2021-01-29 2021-01-29 Telephone HeathAD[facility] 1.2.840.114 [id number] Univers 00:00:00 00:00:00 Clover Mandujano HEALTH 350.1.13.10 it y of [place] 4.2.7.2.686 Bill as CHRISTINA?BLEA [id number] Pr berta SHAW [address] [facility] OFFICE [facility] 2021-01-22 2021-01-22 Telephone [facility] 1.2.040.151 [id number] Univers 00:00:00 00:00:00 Sendil Demetri LU 350.1.13.10 ity of [facility] 4.2.7.2.[place] [id number] Pr berta NAL 0[address] [facility] 2021-01-19 2021-01-19 Outpatient R [facility] [id number] Univers 10:00:00 23:59:00 SENDIL ity [facility] 2021-01-19 2021-01-19 [facility] 1.2.840.114 [id number] Univers 09:54:13 23:59:00 Encounter Sendil K.HClif [place] 350.1.13.10 ity of [place] 4.2.7.2.[place] [phone] Pr diccholo NAL 8[address] [facility] 2021-01-19 2021-01-19 Outpatient R [facility] [id number] Univers 10:00:00 10:00:00 SENDIL ity [facility] 2021-01-19 2021-01-19 Telephone JohnAD[facility] 1.2.170.162 [id number] Univers 00:00:00 00:00:00 Fernando LU 350.1.13.10 ity of [facility] 4.2.7.2.[place] [phone] Pr dicwi NAL [address] [place] [address] 2021-01-16 2021-01-16 Outpatient R [facility] [id number] Univers 00:00:00 00:00:00 SENDIL ity [facility] 2021-01-16 2021-01-16 Outpatient R [facility] [id number] Univers 00:00:00 00:00:00 [facility]-12-07 2020-12-07 Telephone BassemADV[facility] 1.2.775.071 [id number] Univers 00:00:00 00:00:00 Sendil Demetri Lu 350.1.13.10 ity of [place].2.[place] [phone] [address] 2020-11-02 2020-11-02 Outpatient R BASSEM [facility] [id number] Univers 00:00:00 00:00:00 SENDIL ity [facility] 2020-10-03 2020-10-03 Outpatient R [facility] [id number] Univers 00:00:00 00:00:00 SENDIL ity [facility] 2020-09-21 2020-09-21 Outpatient R [facility] [id number] Univers 15:30:00 15:32:11 SENDIL ity [facility] 2020-09-21 2020-09-21 Office [facility]semAD[facility] 1.2.840.114 [id number] Univers 14:55:58 15:32:11 Visit Sendil Demetri LU 350.1.13.10 ity of [facility] 4.2.7.2.[place] [phone] Pr dical NAL 9 [facility] 2020-09-212020-09-21 Office [facility]semADVANC[facility] 1.2.840.114 [id number] Univers 14:55:58 15:32:11 Visit Korin Mosquera BEAUTY 350.1.13.10 ity of [place] 4.2.7.2.686 [place]ESS[place] [phone] Me dical NAL 059 [facility] 2020-09-21 2020-09-21 Outpatient R [facility] [id number] Univers 15:30:00 15:30:[facility] 2020-07-27 2020-07-27 Outpatient [facility] [id number] Univers 08:04:33 23:59:00 [facility] 2020-07-27 2020-07-27 [facility] 1.2.840.114 [id number] Univers 08:04:33 23:59:00 Encounter [facility] 350.1.13.10 ity of Surgical 4.2.7.2.686 Bill as Specialti [phone] Me dical es 809 [facility] 2020-07-27 2020-07-27 Office [facility]AD[facility] 1.2.840.114 [id number] Univers 07:51:51 09:06:38 Visit [facility] 350.1.13.10 it y of Surgical 4.2.7.2.686 Bill as Specialti [phone] Me dical es 198 [facility] 2020-07-27 2020-07-27 Outpatient Issa [facility] [id number] Univers 08:00:00 08:00:00 [facility] 2020-07-27 2020-07-27 Telephone BalAD[facility] 1.2.294.928 [id number] Univers 00:00:00 00:00:00 [facility] 350.1.13.10 it y of Surgical 4.2.7.2.686 Bill as Specialti [phone] Pr dical es 198 [facility] 2020-07-11 2020-07-11 Outpatient Issa [facility] [id number] Univers 14:00:00 14:00:00 [employer] [facility] 2020-03-29 2020-03-29 Orders Doctor YOLIS 1.2.840.114 [id number] 00:00:00 00:00:00 Only Unassigned, TIN 350.1.13.10 [place] [facility] 4.2.7.2.686 [id number] 009 2020-03-29 2020-03-29 Orders Doctor YOLIS 1.2.840.[id number] [facility] 00:00:00 00:00:00 Only Unassigned, TIN 350.1.13.10 ity [place] [facility] 4.2.7.2.[id number] [address] 2020-03-11 2020-03-11 Emergency [facility], [facility] 1.2.840.114 [id number] 18:06:00 18:59:00 [place] 350.1.13.10 [place] 4.2.7.2.686 [place] [id number] [facility] 2020-03-11 2020-03-11 Emergency Goldman, [facility] 1.2.840.[id number] [facility] [place] 18:06:00 18:59:00 [place] 350.1.13.10 i ty of [place] 4.2.7.2.686 [facility] [phone] [address] 2020-01-17 2020-01-17 Emergency Goldman, [facility] 1.2.840.114 [id number] 16:55:00 19:20:00 [place] 350.1.13.10 [place] [address] [place] [address] [id number] [facility] 2020-01-17 2020-01-17 Emergency Goldman, [facility] 1.2.840.[id number] [facility] [place] 16:55:00 19:20:00 [place] 350.1.13.10 i ty of [place] 4.2.7.2.686 [facility] [id number] [address] 2019-05-25 2019-05-25 Outpatient SIFF, [facility] [id number] [place] 00:00:00 00:00:[address] 2019-05-25 2019-05-25 [facility] 2099 [id number] [place] 00:00:00 00:00:00 [address] 2019-05-25 2019-05-25 Outpatient SIFF, [facility] 2099 [id number] [place] 00:00:00 00:00:00 567 [address] [facility] 2019-05-25 2019-05-25 [facility] [id number] [place] 00:00:00 00:00:00 514 [address] i 2019-02-24 2019-02-24 [facility] [place] [id number] [facility] 18:14:00 19:15:[address] 2019-02-24 2019-02-24 [id number] [address] [place] 18:14:00 19:15:[address] [facility] 2019-02-10 2019-02-10 Emergency [facility] [id number] [facility] 18:48:57 21:06:00 MARYLOU odell [facility] Results Test Description Test Time Test Comments Results Result Comments Source SEDIMENTATION RATE 2022-08-16 20:46:00 Test Item Value Reference Range Interpretation Comme nts ESR (test code = 97526-1) 13 See_Comment [ Automated message] The system which generated this result transmitted ref erence range: 0 - 20 mm/HR. The r eference range was not used to int erpret this result as normal/abnor mal. Lab Interpretation (test code = Normal 64814-8) [facility]NA, K, CL, CO2, GLUCOSE, BUN, CREATININE, CA)2022-08-16 20:14:07 Test Item Value Reference Range Interpretation Comments NA (test code = 137 mmol/L 135-145 [id number]) K (test code = 4.4 mmol/L 3.5-5.0 9188095266) CL (test code = 106 mmol/L 98-108 0266883727) CO2 TOTAL (test code = 22 mmol/L 23-31 L [id number]) AGAP (test code = 9 2-16 1993597061) BUN (test code = 15 mg/dL 7-23 9198536142) GLUCOSE (test code = 111 mg/dL 70-110 H [id number]) CREATININE (test code = 1.01 mg/dL 0.50-1.04 6181158920) CALCIUM (test code = 9.4 mg/dL 8.6-10.6 8254062267) eGFR (test code = 55.7 mL/min/1.73m2 8016630956) SELAM (test code = SELAM) Association of Glomerular Filtration Rate (GFR) and Staging of Kidney Disease* + --+ --+ ------+| GFR (mL/min/1.73 m2) ?| With Kidney Damage ?| ?Without Kidney Damage+ --------+ --------+ +| ?>90 ?| ?Stage one ?| ? Normal ?+ ---+ ---+ -------+| ?60-89 ?| ?Stage two ?| ? Decreased GFR ? + --+ --+ ------+| ?30-59 ?| ?Stage three ?| ? Stage three ? + --+ --+ ------+| ?15-29 ?| ?Stage four ? | ? Stage four ?+ ---+ ---+ -------+| ?<15 (or dialysis) ? ?| ?Stage five ? | ? Stage five ?+ ---+ ---+ -------+ *Each stage assumes the associated GFR level has been in effect for at least three months. ?Stages 1 to 5, with or without kidney disease, indicate chronic kidney disease. Notes: Determination of stages one and two (with eGFR >59mL/min/1.73 m2) requires estimation of kidney damage for at least three months as defined by structural or functional abnormalities of the kidney, manifested by either:Pathological abnormalities or Markers of kidney damage (including abnormalities in the composition of the blood or urine or abnormalities in imaging tests). Lab Interpretation Abnormal (test code = 92282-9) [id number]:14[facility]07 Test Item Value Reference Range Interpretation Comments URIC ACID (test code = 7231246720) 4.7 mg/dL 2.9-6.0 Lab Interpretation (test code = Normal 03200-7) [facility] WITH [id number] 19:56:20 Test Item Value Reference Range Interpretation Comments WBC (test code = 7.17 See_Comment [Automated 6690-2) message] The sy stem which generated this result transmitted reference range : 4.30 - 11.10 10*3/?L. The reference range was not used to interpret this result as normal/abnormal . RBC (test code = 4.23 See_Comment [Automated 789-8) message] The sy stem which generated this result transmitted reference range : 3.93 - 5.25 10*6/?L. The reference range was not used to interpret this result as normal/abnormal . HGB (test code = 13.4 g/dL 11.6-15.0 718-7) HCT (test code = 39.7 % 35.7-45.2 4544-3) MCV (test code = 93.9 fL 80.6-95.5 787-2) MCH (test code = 31.7 pg 25.9-32.8 785-6) MCHC (test code = 33.8 g/dL 31.6-35.1 786-4) RDW-SD (test code = 47.5 fL 39.0-49.9 64978-5) RDW-CV (test code = 14.0 % 12.0-15.5 788-0) PLT (test code = 312 See_Comment [Automated 777-3) message] The sy stem which generated this result transmitted reference range : 166 - 358 10*3/ ?L. The reference r robert was not used to interpret this result as normal/abnormal . MPV (test code = 9.5 fL 9.5-12.9 47648-9) NRBC/100 WBC (test 0.0 See_Comment [Automat ed code = 7001298723) message] The system which generated this result transmitted reference range : 0.0 - 10.0 /100 WBCs. The refer ence range was not u sed to interpret th is result as normal/abnormal . NRBC x10^3 (test code See_Comment [Auto mated = 0913136901) message] The s ystem which generated this result transmitted reference range : 10*3/?L. The reference range was not used to interpret this result as normal/abnormal . GRAN MAT (NEUT) % 55.5 % (test code = 770-8) IMM GRAN % (test code 0.60 % = 0394613974) LYMPH % (test code = 25.0 % 736-9) MONO % (test code = 10.2 % 5905-5) EOS % (test code = 6.6 % 713-8) BASO % (test code = 2.1 % 706-2) GRAN MAT x10^3(ANC) 3.99 10*3/uL 1.88-7.09 (test code = 4867546515) IMM GRAN x10^3 (test 0.04 10*3/uL 0.00-0.06 code = 5252196935) LYMPH x10^3 (test code 1.79 10*3/uL 1.32-3.29 = 731-0) MONO x10^3 (test code 0.73 10*3/uL 0.33-0.92 = 742-7) EOS x10^3 (test code = 0.47 10*3/uL 0.03-0.39 H 711-2) BASO x10^3 (test code 0.15 10*3/uL 0.01-0.07 H = 704-7) Lab Interpretation Abnormal (test code = 68339-5) [facility] WITH [id number] 15:45:24 Test Item Value Reference Range Interpretation Comments WBC (test code = 10.54 See_Comment [Automated 4690-2) message] The sy stem which generated this result transmitted reference range : 4.30 - 11.10 10*3/?L. The reference range was not used to interpret this result as normal/abnormal . RBC (test code = 3.76 See_Comment L [Automated 247-8) message] The sy stem which generated this result transmitted reference range : 3.93 - 5.25 10*6/?L. The reference range was not used to interpret this result as normal/abnormal . HGB (test code = 12.1 g/dL 11.6-15.0 718-7) HCT (test code = 35.7 % 35.7-45.2 4544-3) MCV (test code = 94.9 fL 80.6-95.5 787-2) MCH (test code = 32.2 pg 25.9-32.8 785-6) MCHC (test code = 33.9 g/dL 31.6-35.1 786-4) RDW-SD (test code = 48.2 fL 39.0-49.9 92703-9) RDW-CV (test code = 13.8 % 12.0-15.5 788-0) PLT (test code = 266 See_Comment [Automated 777-3) message] The sy stem which generated this result transmitted reference range : 166 - 358 10*3/ ?L. The reference r robert was not used to interpret this result as normal/abnormal . MPV (test code = 9.2 fL 9.5-12.9 L 28003-1) NRBC/100 WBC (test 0.0 See_Comment [Automat ed code = 8888873050) message] The system which generated this result transmitted reference range : 0.0 - 10.0 /100 WBCs. The refer ence range was not u sed to interpret th is result as normal/abnormal . NRBC x10^3 (test code See_Comment [Auto mated = 5650767810) message] The s ystem which generated this result transmitted reference range : 10*3/?L. The reference range was not used to interpret this result as normal/abnormal . GRAN MAT (NEUT) % 71.4 % (test code = 770-8) IMM GRAN % (test code 1.10 % = 7752759420) LYMPH % (test code = 13.3 % 736-9) MONO % (test code = 11.8 % 5905-5) EOS % (test code = 1.7 % 713-8) BASO % (test code = 0.7 % 706-2) GRAN MAT x10^3(ANC) 7.53 10*3/uL 1.88-7.09 H (test code = 3877748678) IMM GRAN x10^3 (test 0.12 10*3/uL 0.00-0.06 H code = 1803085365) LYMPH x10^3 (test code 1.40 10*3/uL 1.32-3.29 = 731-0) MONO x10^3 (test code 1.24 10*3/uL 0.33-0.92 H = 742-7) EOS x10^3 (test code = 0.18 10*3/uL 0.03-0.39 711-2) BASO x10^3 (test code 0.07 10*3/uL 0.01-0.07 = 704-7) Lab Interpretation Abnormal (test code = 71593-3) [facility] WITH [id number] 15:45:24 Test Item Value Reference Range Interpretation Comments WBC (test code = 10.54 See_Comment [Automated 6690-2) message] The sy stem which generated this result transmitted reference range : 4.30 - 11.10 10*3/?L. The reference range was not used to interpret this result as normal/abnormal . RBC (test code = 3.76 See_Comment L [Automated 789-8) message] The sy stem which generated this result transmitted reference range : 3.93 - 5.25 10*6/?L. The reference range was not used to interpret this result as normal/abnormal . HGB (test code = 12.1 g/dL 11.6-15.0 718-7) HCT (test code = 35.7 % 35.7-45.2 4544-3) MCV (test code = 94.9 fL 80.6-95.5 787-2) MCH (test code = 32.2 pg 25.9-32.8 785-6) MCHC (test code = 33.9 g/dL 31.6-35.1 786-4) RDW-SD (test code = 48.2 fL 39.0-49.9 62213-5) RDW-CV (test code = 13.8 % 12.0-15.5 788-0) PLT (test code = 266 See_Comment [Automated 777-3) message] The sy stem which generated this result transmitted reference range : 166 - 358 10*3/ ?L. The reference r robert was not used to interpret this result as normal/abnormal . MPV (test code = 9.2 fL 9.5-12.9 L 20834-8) NRBC/100 WBC (test 0.0 See_Comment [Automat ed code = 3289480456) message] The system which generated this result transmitted reference range : 0.0 - 10.0 /100 WBCs. The refer ence range was not u sed to interpret th is result as normal/abnormal . NRBC x10^3 (test code See_Comment [Auto mated = 1197727220) message] The s ystem which generated this result transmitted reference range : 10*3/?L. The reference range was not used to interpret this result as normal/abnormal . GRAN MAT (NEUT) % 71.4 % (test code = 770-8) IMM GRAN % (test code 1.10 % = 6878463244) LYMPH % (test code = 13.3 % 736-9) MONO % (test code = 11.8 % 5905-5) EOS % (test code = 1.7 % 713-8) BASO % (test code = 0.7 % 706-2) GRAN MAT x10^3(ANC) 7.53 10*3/uL 1.88-7.09 H (test code = 8934368968) IMM GRAN x10^3 (test 0.12 10*3/uL 0.00-0.06 H code = 1120481454) LYMPH x10^3 (test code 1.40 10*3/uL 1.32-3.29 = 731-0) MONO x10^3 (test code 1.24 10*3/uL 0.33-0.92 H = 742-7) EOS x10^3 (test code = 0.18 10*3/uL 0.03-0.39 711-2) BASO x10^3 (test code 0.07 10*3/uL 0.01-0.07 = 704-7) Lab Interpretation Abnormal (test code = 43555-9) [facility] Streptococcus pyogenes antigen [id number] 18:38:00 Test Item Value Reference Range Interpretation Comments Group A Streptococcus Screen (test Negative Negative code = 41973-3) [facility] Streptococcus pyogenes antigen [id number] 18:38:00 Test Item Value Reference Range Interpretation Comments Group A Streptococcus Screen (test Negative code = 69743-4)"
[2022-10-11] MEDS ORDERED: TRAMADOL HCL 50 MG TAB ONE (10:37)
[2022-10-11] MEDS ORDERED: ALBUTEROL 2.5 MG/3 ML NEB SOL ONE (10:38)
[2022-10-11] MEDS ORDERED: IPRATROPIUM BROM 0.5MG/2.5ML ONE (10:38)
--- NOTE | 2022-10-11 11:11 | RAD REPORT ---
EXAM DESCRIPTION: RAD - Chest Single View - 10/11/2022 11:02 am CLINICAL HISTORY: Cough;Congestion COMPARISON: Chest Single View dated 06/25/2022; Chest Single View dated 11/14/2021; Chest Pa And Lat ( 2 Views) dated 06/26/2021; Chest Pa And Lat (2 Views) dated 02/18/2019 FINDINGS: Lines: None. Lungs: No evidence of edema or pneumonia. Pleural: No significant pleural effusions or pneumothorax. Cardiac: The heart size is within normal limits. Mediastinum: Within normal limits. Bones: No acute fractures. Other: None IMPRESSION: No acute cardiopulmonary disease.
--- NOTE | 2022-10-11 11:20 | ER ---
Nurse's Notes [facility] Name: Vicky Walker Age: 62 yrs Sex: Female : 1960 Arrival Date: 10/11/2022 Time: 10:12 Bed 6 Private MD: Diagnosis: Acute upper respiratory infection, unspecified Presentation: 10/11 10:20 Chief complaint: Right ear pain, SOB, cough, nausea, chills, and malaise x 4 days. hb Coronavirus screen: Client presents with at least one sign or symptom that may indicate coronavirus-19. Provider contacted for isolation considerations. Ebola Screen: No symptoms or risks identified at this time. Initial Sepsis Screen: Does the patient meet any 2 criteria? No. Patient's initial sepsis screen is negative. Does the patient have a suspected source of infection? No. Patient's initial sepsis screen is negative. Risk Assessment: Do you want to hurt yourself or someone else? Patient reports no desire to harm self or others. Onset of symptoms was October 07, 2022. 10:20 Method Of Arrival: Ambulatory hb 10:20 Acuity: PIYUSH 4 hb Historical: - Allergies: 10:24 PENICILLINS; aa5 10:24 Toradol; aa5 10:22 PENICILLINS; hb 10:22 Toradol; hb - Home Meds: 10:22 Flonase 50 mcg/actuation Nasal spsn 1 spray 2 times per day [Active]; gabapentin Oral hb [Active]; lisinopril 10 mg Oral tab once daily [Active]; loratadine 10 mg Oral tab 1 tab once daily [Active]; omeprazole 20 mg Oral cpDR 1 cap once daily [Active]; Spironolacton-Hydrochlorothiaz Oral [Active]; Xanax 1 mg Oral tab 1 tab 3 times per day [Active]; - PMHx: 10:24 Anxiety; Chronic pain; GERD; Hypertension; psoriasis; aa5 10:22 Anxiety; Chronic pain; GERD; Hypertension; psoriasis; hb - PSHx: 10:24 Cholecystectomy; hysterectomy; R knee replacement; aa5 10:22 Cholecystectomy; hysterectomy; R knee replacement; hb - Immunization history:: Adult Immunizations up to date. - Social history:: Smoking status: Patient reports the use of cigarette tobacco products. Screenin:20 [facility] ED Fall Risk Assessment (Adult) History of falling in the last 3 months, aa5 including since admission No falls in past 3 months (0 pts) Confusion or Disorientation No (0 pts) Intoxicated or Sedated No (0 pts) Impaired Gait No (0 pts) Mobility Assist Device Used No (0 pt) Altered Elimination No (0 pt) Score/Fall Risk Level 0 - 2 = Low Risk Oriented to surroundings, Maintained a safe environment, Educated pt \\T\\ family on fall prevention, incl call for assistance when getting out of bed. Abuse screen: Denies threats or abuse. Nutritional screening: No deficits noted. Tuberculosis screening: No symptoms or risk factors identified. Assessment: 10:20 General: Appears uncomfortable, Behavior is calm, cooperative, Reports feeling ill for aa5 > 3 days, fatigue for >3 days. Pain: Pain: Complains of pain in right ear. Neuro: Level of Consciousness is awake, alert, obeys commands, Oriented to person, place, time, situation. Cardiovascular: Heart tones S1 S2 present Patient's skin is warm and dry. Rhythm is regular. Respiratory: Reports shortness of breath on exertion Airway is patent Respiratory effort is even, unlabored, Respiratory pattern is regular, symmetrical, Breath sounds are clear bilaterally. GI: No signs and/or symptoms were reported involving the gastrointestinal system. : No signs and/or symptoms were reported regarding the genitourinary system. EENT: Reports pain in right ear. Derm: Skin is pink, warm \\T\\ dry. Musculoskeletal: Range of motion: intact in all extremities. 10:40 Reassessment: Pt states "tramadol doesn't work for me and I have it at home, I need aa5 something else", [employer]ATOR [employer] was notified. . 10:58 Reassessment: x-ray at bedside . aa5 Vital Signs: 10:20 BP 160 / 87; Pulse 79; Resp 18; Temp 97.6(O); Pulse Ox 100% on R/A; Weight 81.65 kg; hb Height 5 ft. 2 in. ; Pain 6/10; 10:20 Body Mass Index 32.92 (81.65 kg, 157.48 cm) hb 10:20 Pain Scale: Adult hb ED Course: 10:12 Patient arrived in ED. rg4 10:17 Bita Montgomery, RN is Primary Nurse. aa5 10:17 Tigist Hurt FNP-C is [facility]. kb 10:17 Venancio Tijerina MD is Attending Physician. kb 10:20 Patient has correct armband on for positive identification. Bed in low position. Call aa5 light in reach. Side rails up X 1. Pulse ox on. NIBP on. 10:20 Arm band placed on. aa5 10:22 Triage completed. hb 10:34 COVID swab sent to lab. Flu and/or RSV swab sent to lab. Strep swab sent to lab. aa5 11:04 Chest Single View XRAY In Process Unspecified. EDMS Administered Medications: 10:43 Drug: Ipratropium Inhalation Aerosol 0.5 mg Route: Inhalation; aa5 10:43 Not Given (Patient Refused): traMADol PO 50 mg PO once aa5 10:44 Drug: Albuterol Inhalation 2.5 mg Route: Inhalation; aa5 11:29 Drug: Hydrocodone-Acetaminophen PO (7.5 mg-325 mg) 1 tabs Route: PO; iw 11:29 Drug: predniSONE PO 40 mg Route: PO; iw Outcome: 11:20 Discharge ordered by MD. kb 11:36 Discharged to home ambulatory. iw 11:36 Condition: good 11:36 Discharge instructions given to patient, Instructed on discharge instructions, follow up and referral plans. medication usage, Demonstrated understanding of instructions, follow-up care, medications, Prescriptions given X 1. 11:36 Patient left the ED. iw Signatures: Dispatcher [employer] EDMS Tigist Hurt FNP-C FNP-Ckb Williams, Irene, RN RN Bita Montgomery RN RN aa5 Dianne Hunt RN RN hb Garcia, Rubi 4 Corrections: (The following items were deleted from the chart) 11:08 10:25 Arm band placed on hb aa5
--- NOTE | 2022-10-11 11:20 | EDPHYS ---
Physician Documentation [facility] Name: Vicky Walker Age: 62 yrs Sex: Female : 1960 Arrival Date: 10/11/2022 Time: 10:12 Bed 6 Private MD: ED Physician Venancio Tijerina HPI: 10/11 10:53 This 62 yrs old Female presents to ER via Ambulatory with complaints of Sore Throat, kb Ear Pain. 10:53 The patient presents with sore throat. The patient describes throat pain as constant. kb Onset: The symptoms/episode began/occurred 4 day(s) ago. Severity of symptoms: At their worst the symptoms were moderate, in the emergency department the symptoms are unchanged. Modifying factors: The symptoms are alleviated by nothing, the symptoms are aggravated by nothing. Associated signs and symptoms: Pertinent positives: chills, cough, earache, flu-like symptoms, malaise, nausea, shortness of breath Sore throat. The patient has not experienced similar symptoms in the past. The patient has not recently seen a physician. Historical: - Allergies: 10:24 PENICILLINS; aa5 10:24 Toradol; aa5 10:22 PENICILLINS; hb 10:22 Toradol; hb - Home Meds: 10:22 Flonase 50 mcg/actuation Nasal spsn 1 spray 2 times per day [Active]; gabapentin Oral hb [Active]; lisinopril 10 mg Oral tab once daily [Active]; loratadine 10 mg Oral tab 1 tab once daily [Active]; omeprazole 20 mg Oral cpDR 1 cap once daily [Active]; Spironolacton-Hydrochlorothiaz Oral [Active]; Xanax 1 mg Oral tab 1 tab 3 times per day [Active]; - PMHx: 10:24 Anxiety; Chronic pain; GERD; Hypertension; psoriasis; aa5 10:22 Anxiety; Chronic pain; GERD; Hypertension; psoriasis; hb - PSHx: 10:24 Cholecystectomy; hysterectomy; R knee replacement; aa5 10:22 Cholecystectomy; hysterectomy; R knee replacement; hb - Immunization history:: Adult Immunizations up to date. - Social history:: Smoking status: Patient reports the use of cigarette tobacco products. ROS: 10:52 Cardiovascular: Negative for chest pain, palpitations, and edema. kb 10:52 Constitutional: Positive for body aches, chills, fatigue, malaise. 10:52 ENT: Positive for ear pain, sore throat. 10:52 Respiratory: Positive for cough, shortness of breath. 10:52 All other systems are negative. 10:53 Abdomen/GI: Positive for nausea, Negative for abdominal pain, vomiting, diarrhea. kb Exam: 10:52 Constitutional: This is a well developed, well nourished patient who is awake, alert, kb and in no acute distress. Head/Face: Normocephalic, atraumatic. Cardiovascular: Regular rate and rhythm with a normal S1 and S2. No gallops, murmurs, or rubs. No pulse deficits. Respiratory: Respirations even and unlabored. No increased work of breathing. Talking in full sentences Abdomen/GI: Soft, non-tender. No distention Skin: Warm, dry with normal turgor. Normal color. MS/ Extremity: Pulses equal, no cyanosis. Neurovascular intact. Full, normal range of motion. Neuro: Awake and alert, GCS 15, oriented to person, place, time, and situation. Moves all extremities. Normal gait. 10:52 ENT: External ear(s): are unremarkable, Ear canal(s): are normal, TM's: fluid levels, on the right, Posterior pharynx: is normal. Vital Signs: 10:20 BP 160 / 87; Pulse 79; Resp 18; Temp 97.6(O); Pulse Ox 100% on R/A; Weight 81.65 kg; hb Height 5 ft. 2 in. ; Pain 6/10; 10:20 Body Mass Index 32.92 (81.65 kg, 157.48 cm) hb 10:20 Pain Scale: Adult hb MDM: 10:17 Patient medically screened. kb 10:52 Differential diagnosis: strep, flu, covid, bronchitis, pneumonia, otitis media, uri. kb Data reviewed: vital signs, nurses notes. 11:19 Counseling: I had a detailed discussion with the patient and/or guardian regarding: the kb historical points, exam findings, and any diagnostic results supporting the discharge/admit diagnosis, lab results, radiology results, the need for outpatient follow up, a family practitioner, to return to the emergency department if symptoms worsen or persist or if there are any questions or concerns that arise at home. 10/11 10:22 Order name: Flu; Complete Time: 11:07 kb 10/11 10:22 Order name: COVID-19 SARS RT PCR; Complete Time: 11:17 kb 10/11 10:22 Order name: Strep kb 10/11 11:06 Order name: Throat Culture EDMA 10/11 10:22 Order name: Chest Single View XRAY; Complete Time: 11:17 kb Administered Medications: 10:43 Drug: Ipratropium Inhalation Aerosol 0.5 mg Route: Inhalation; aa5 10:43 Not Given (Patient Refused): traMADol PO 50 mg PO once aa5 10:44 Drug: Albuterol Inhalation 2.5 mg Route: Inhalation; aa5 11:29 Drug: Hydrocodone-Acetaminophen PO (7.5 mg-325 mg) 1 tabs Route: PO; iw 11:29 Drug: predniSONE PO 40 mg Route: PO; iw Disposition: 12:23 Co-signature as Attending Physician, Venancio Tijerina MD I reviewed the patient's care rt provided by the Advanced Practice Provider and agree with the diagnosis and treatment plan. Disposition Summary: 10/11/22 11:20 Discharge Ordered Location: Home kb Condition: Stable kb Diagnosis - Acute upper respiratory infection, unspecified kb Followup: kb - With: Emergency Department - When: As needed - Reason: Worsening of condition Followup: kb - With: Private Physician - When: 2 - 3 days - Reason: Recheck today's complaints, Continuance of care, Re-evaluation by your physician Discharge Instructions: - Discharge Summary Sheet kb - Upper Respiratory Infection, Adult, [id number] kb - Viral Respiratory Infection, [id number] kb Forms: - Medication Reconciliation Form kb - Thank You Letter kb - Antibiotic Education kb - Prescription Opioid Use kb - Patient Portal Instructions kb Prescriptions: - Prednisone 20 mg Oral Tablet - take 1 tablet by ORAL route once daily for 5 days; 5 tablet; Refills: 0, kb Product Selection Permitted Signatures: Dispatcher [employer] EDMA Tigist Hurt, CHRISTIANO ARCEO-Cara Nash RN RN iw Bita Montgomery RN RN aa5 Dianne Hunt RN RN Venancio Tijerina MD MD rt
[2022-10-11] MEDS ORDERED: predniSONE 20 MG TAB ONE (11:34)
[2022-10-11] MEDS ORDERED: HYDROCODONE/APAP 7.5/325 MG TAB ONE (11:34)
[2022-10-11 11:41] VITALS: BP 160/87; TEMP 97.6; O2SAT 100
== END 2022-10-11 11:36 | disposition home or self-care (01) ==
LOC: ER 10:12
DX: J06.9 Acute upper respiratory infection, unspecified (principal); Z20.822 Contact with and (suspected) exposure to COVID-19; I10 Essential (primary) hypertension; Z72.0 Tobacco use; Z88.0 Allergy status to penicillin; Z88.5 Allergy status to narcotic agent
CPT/HCPCS: 87070; 87081; 87635; 87804 ×2; 71045; 99284; J7512; J7613; J7644

== ENCOUNTER 2022-10-12 10:22 | Emergency (ER) | payer OTHER ==
--- OUTSIDE RECORDS SUMMARY | 2022-10-12 10:40 | XMS REPORT | Continuity of Care Document ---
:1960 Author Organization [facility] t Address [address] [facility] [address] [facility] [address] [place] [address] Care Team Providers Name Role Phone ADAM [...] Marylou Guzman S Attending Clinician Doctor Unassigned, [place] Attending Clinician Unavailable Only, Adc Test Attending Clinician Unavailable Pob, Adc Lab Main Attending Clinician Unavailable FRENANDO AGUILERA Attending Clinician Unavailable NGA ACOSTA Attending [...] Number Effective Date Expiration Date S julio [facility] DUAL [id number] 2022 COMP HMO D SNP 00:00:[address] [facility] [id number] 2022 STAR PLUS 00:00:00 [employer] [place] [id number] CLASSIC/VALUE 00:00:00 MEDICARE PART A \\T\\ [id number] 2011 B 00:00:00 MEDICAID [place] [id number] 2010 00:00:00 [employer] (MEDICARE [id number] REPLACEMENT/ADVANTA GE - PPO) [facility] [id number] 2016 [facility] (MEDICAID 00:00:00 HMO) [employer] CHOICE [id number] 2021 00:00:00 WELLCARE (MEDICARE [id number] 2021 REPLACEMENT/ADVANTA 00:00:00 GE - PPO) Problems [...] Added automatic ally from request for surgery [id number] Fracture, Fracture, Disease Active Met Ezekiel Ocampo, [...] History of tobacco Cigarette Smoker [facility] Gender identity [facility] Sexual orientation [facility] Exposure to 2022-07-05 2022-07-15 Not sure [facility] SARS-CoV-2 (event) 00:00:00 13:54:00 [facility] Tobacco use and 2022-04-10 2022-04-10 Smokeless Universit y of exposure 00:00:00 00:00:00 tobacco non-user [facility] Alcohol intake 2019-05-25 2019-05-25 0 /d [facility] 00:00:00 00:00:00 Hospital History of Social 2019-05-25 2019-05-[address] function 00:00:00 00:00:00 Hospital Cigarettes smoked 2019-05-25 2019-05-[address] current (pack per 00:00:00 00:00:00 Hospita l day) - Reported Cigarette 2019-05-25 2019-05-25 [facility] pack-years 00:00:00 00:00:00 Hospital Sex Assigned At [birth year] [facility] 00:00:00 00:00:00 Hospital Smoking Status Start Date Stop Date Source Smokes tobacco daily 2022-04-10 00:00:00 [facility] Current Light tobacco 2019-02-24 18:35:00 [facility] smoker Medications Ordered Filled Start Stop Current [...] at 1400, 1 mL diclofenac 2022-0 Yes [id number] 75mg Take 1 Univers 75 mg EC 6-16 tablet by ity of tablet 00:00: mouth in [place] [address] the [facility] morning [place] and 1 tablet in the evening. Take with meals. acetaminoph 2022-0 Yes [id number] 650mg Take 1 Univers en (TYLENOL 6-16 tablet by ity of ARTHRITIS 00:00: mouth [place] PAIN) 650 00 every 8 Medical mg CR (eight) Branch tablet hours as needed for Pain. predniSONE 2022-0 Yes [id number] Take 2 Univers 20 mg 6-16 tablets PO ity of tablet 00:00: daily [address] gabapentin 2022-0 Yes [id number] 100mg Take 1 Univers (NEURONTIN) 6-16 capsule by it y of 100 mg 00:00: mouth in [place] capsule the [facility] morning [place] and 1 capsule at noon and 1 capsule in the evening. diclofenac 2022-0 Yes [id number] 75mg Take 1 Univers 75 mg EC 6-16 tablet by ity of tablet 00:00: mouth in [place] [address] the [facility] morning [place] and 1 tablet in the evening. Take with meals. acetaminoph 2022-0 Yes [id number] 650mg Take 1 Univers en (TYLENOL 6-16 tablet by ity of ARTHRITIS 00:00: mouth [place] PAIN) 650 00 every 8 Medical mg CR (eight) Branch tablet hours as needed for Pain. predniSONE 2023-0 Yes [id number] Take 2 Univers 20 mg 6-16 tablets PO ity of tablet 00:00: daily [place] [facility] gabapentin 2023-0 Yes [id number] 100mg Take 1 Univers (NEURONTIN) 6-16 capsule by it y of 100 mg 00:00: mouth in [place] capsule 00 the Medical morning Branch and 1 capsule at noon and 1 capsule in the evening. diclofenac 2023-0 Yes [id number] 75mg Take 1 Univers 75 mg EC 6-16 tablet by ity of tablet 00:00: mouth in [place] 00 the Medical morning Branch and 1 tablet in the evening. Take with meals. acetaminoph 2023-0 Yes [id number] 650mg Take 1 Univers en (TYLENOL 6-16 tablet by ity of ARTHRITIS 00:00: mouth [place] PAIN) 650 00 every 8 Medical mg CR (eight) Branch tablet hours as needed for Pain. predniSONE 3-0 Yes [id number] Take 2 Univers 20 mg 6-16 tablets PO ity of tablet 00:00: daily [place] [facility] Branch gabapentin 3-0 Yes [id number] 100mg Take 1 Univers (NEURONTIN) 6-16 capsule by it y of 100 mg 00:00: mouth in [place] capsule 00 the Medical morning Branch and 1 capsule at noon and 1 capsule in the evening. diclofenac 3-0 Yes [id number] 75mg Take 1 Univers 75 mg EC 6-16 tablet by ity of tablet 00:00: mouth in [place] 00 the Medical morning Branch and 1 tablet in the evening. Take with meals. acetaminoph 2023-0 Yes [id number] 650mg Take 1 Univers en (TYLENOL 6-16 tablet by ity of ARTHRITIS 00:00: mouth [place] PAIN) 650 00 every 8 Medical mg CR (eight) Branch tablet hours as needed for Pain. predniSONE 3-0 Yes [id number] Take 2 Univers 20 mg 6-16 tablets PO ity of tablet 00:00: daily [place] [facility] gabapentin 2023-0 Yes [id number] 100mg Take 1 Univers (NEURONTIN) 6-16 capsule [...] Branch at 1815, STAT clindamycin 2022- Yes [id number] 300mg Take 1 Univers 300 mg 08-06 capsule by ity of capsule 00:00: 04:59 mouth in [place] 00 :00 [facility] and 1 capsule at noon and 1 capsule in the evening. Do all this for 10 days. sulfamethox 2022- Yes [id number] 1{tbl} Take 1 Univers azole-trime 08-06-17 tablet by it y of thoprim 00:00: 04:59 mouth [place] 800-160 mg 00 :00 every 12 Medic al per tablet (twelve) Branc h hours for 10 days. clindamycin 2022- Yes [id number] 300mg Take 1 Univers 300 mg 08-06 capsule by ity of capsule 00:00: 04:59 mouth in [place] 00 :00 [facility] [place] [facility] and 1 capsule at noon and 1 capsule in the evening. Do all this for 10 days. sulfamethox 2022- Yes [id number] 1{tbl} Take 1 Univers azole-trime 08-0617 tablet by it y of thoprim 00:00: 04:59 mouth [place] 800-160 mg 00 :00 every 12 Medic al per tablet (twelve) Branc h hours for 10 days. clindamycin 2022- Yes [id number] 300mg Take 1 Univers 300 mg 08-06 capsule by ity of capsule 00:00: 04:59 mouth in [place] 00 :00 [facility] [place] [facility] and 1 capsule at noon and 1 capsule in the evening. Do all this for 10 days. sulfamethox 2022- Yes [id number] 1{tbl} Take 1 Univers azole-trime -08 06-17 tablet by it y of thoprim 00:00: 04:59 mouth [place] 800-160 mg 00 :00 every 12 Medic al per tablet (twelve) Branc h hours for 10 days. clindamycin 2022- Yes [id number] 300mg Take 1 Univers 300 mg 08-06-17 capsule by ity of capsule 00:00: 04:59 mouth in [place] 00 :00 the [facility] morning Branch and 1 capsule at noon and 1 capsule in the evening. Do all this for 10 days. sulfamethox 2022- Yes [id number] 1{tbl} Take 1 Univers azole-trime 6-08 06-17 tablet by it y of thoprim 00:00: 04:59 mouth [place] 800-160 mg 00 :00 every 12 Medic al per tablet (twelve) Branc h hours for 10 days. clindamycin 2022- No [id number] 300mg Take 1 Univers 300 mg 08-06- capsule by ity of capsule 00:00: 04:59 mouth in [place] 00 :00 the [facility] morning Branch and 1 capsule at noon and 1 capsule in the evening. Do all this for 10 days. sulfamethox 2022- No [id number] 1{tbl} Take 1 Univers azole-trime -08 06-17 tablet by it y of thoprim 00:00: 04:59 mouth [place] 800-160 mg 00 :00 every 12 Medic al per tablet (twelve) Branc h hours for 10 days. clindamycin 2022- No [id number] 300mg Take 1 Univers 300 mg 08-06- capsule by ity of capsule 00:00: 04:59 mouth in [place] 00 :00 the [facility] Branch and 1 capsule at noon and 1 capsule in the evening. Do all this for 10 days. sulfamethox 2022- No [id number] 1{tbl} Take 1 Univers azole-trime -08 06-17 [...] IV ity of (CYKLOKAPRO 04:00: 05:33 [place], [place] N) 1,000 mg 00 :00 ONCE, 1 [...] 07-01 IV ity of (PHENERGAN) 16:28: 17:40 [place] 12.5 mg in 29 :00 PRN, 1 Medical NaCl 0.9% dose, Branch (NS) 50 mL Starting IV on Fri piggyback 07/01/22 at 1128, Until Discontinu ed, Routine, Nausea and Vomiting (N/V), PACU bupivacaine 2022- No PRN, Unive rs (preserv 07-01 Starting ity of free) 15:09: 16:28 on Fri [place] (SENSORCAIN 00 :16 07/01/22 at Med ical [...] tablet by ity of 14:57: mouth in [place] [address] the Medical morning Branch and 1 tablet at noon and 1 tablet in the evening. lisinopril 2023-0 Yes Take by Univ ers 10 mg 5-01 mouth ity of tablet 14:57: daily. [address] albuterol 2023-0 Yes 1.25mg Use 3 mL Un lala 1.25 mg/3 5-01 as ity of mL 14:57: directed [place] nebulizer every 6 Medical solution (six) Branch hours as needed for Wheezing. ALPRAZolam 2023-0 Yes 1mg Take 1 Unive rs 1 mg tablet 5-01 tablet by ity of 14:57: mouth in [place] [address] the Medical morning Branch and 1 tablet at noon and 1 tablet in the evening. lisinopril 2023-0 Yes Take by Univ ers 10 mg 5-01 mouth ity of tablet 14:57: daily. [address] albuterol 2023-0 Yes 1.25mg Use 3 mL Un lala 1.25 mg/3 5-01 as ity of mL 14:57: directed [place] nebulizer every 6 Medical solution (six) Branch hours as needed for Wheezing. ALPRAZolam 2023-0 Yes 1mg Take 1 Unive rs 1 mg tablet 5-01 tablet by ity of 14:57: mouth in [place] [address] the [facility] morning [place] and 1 tablet at noon and 1 tablet in the evening. lisinopril 2023-0 Yes Take by Univ ers 10 mg 5-01 mouth ity of tablet 14:57: daily. [address] albuterol 2023-0 Yes 1.25mg Use 3 mL Un lala 1.25 mg/3 5-01 as ity of mL 14:57: directed [place] nebulizer every 6 Medical solution (six) Branch hours as needed for Wheezing. ALPRAZolam 2023-0 Yes 1mg Take 1 Unive rs 1 mg tablet 5-01 tablet by ity of 14:57: mouth in [place] [address] the [facility] morning [place] and 1 tablet at noon and 1 tablet in the evening. lisinopril 2023-0 Yes Take by Univ ers 10 mg 5-01 mouth ity of tablet 14:57: daily. [address] albuterol 2023-0 Yes 1.25mg Use 3 mL Un lala 1.25 mg/3 5-01 as ity of mL 14:57: directed [place] nebulizer 32 every 6 Medical solution (six) Branch hours as needed for Wheezing. ALPRAZolam 2023-0 Yes 1mg Take 1 Unive rs 1 mg tablet 5-01 tablet by ity of 14:57: mouth in [place] [address] the Medical morning Branch and 1 tablet at noon and 1 tablet in the evening. lisinopril 2023-0 Yes Take by Univ ers 10 mg 5-01 mouth ity of tablet 14:57: daily. [address] albuterol 2023-0 Yes 1.25mg Use 3 mL Un lala 1.25 mg/3 5-01 as ity of mL 14:57: directed [place] nebulizer 32 every 6 Medical solution (six) Branch hours as needed for Wheezing. ALPRAZolam 2023-0 Yes 1mg Take 1 Unive rs 1 mg tablet 5-01 tablet by ity of 14:57: mouth in [address] and 1 tablet at noon and 1 tablet in the evening. lisinopril 2023-0 Yes Take by Univ ers 10 mg 5-01 mouth ity of tablet 14:57: daily. [address] albuterol 2023-0 Yes 1.25mg Use 3 mL Un lala 1.25 mg/3 5-01 as ity of mL 14:57: directed [place] nebulizer 32 every 6 Medical solution (six) Branch hours as needed for Wheezing. ALPRAZolam 2023-0 Yes 1mg Take 1 Unive rs 1 mg tablet 5-01 tablet by ity of 14:57: mouth in [place] [address] the [facility] morning [place] and 1 tablet at noon and 1 tablet in the evening. lisinopril 2023-0 Yes Take by Univ ers 10 mg 5-01 mouth ity of tablet 14:57: daily. [address] albuterol 2023-0 Yes 1.25mg Use 3 mL Un lala 1.25 mg/3 5-01 as ity of mL 14:57: directed [place] nebulizer 32 every 6 Medical solution (six) Branch hours as needed for Wheezing. ALPRAZolam 2023-0 Yes 1mg Take 1 Unive rs 1 mg tablet 5-01 tablet by ity of 14:57: mouth in [address] Medical morning Branch and 1 tablet at noon and 1 tablet in the evening. lisinopril 2023-0 Yes Take by Univ ers 10 mg 5-01 mouth ity of tablet 14:57: daily. [address] albuterol 2023-0 Yes 1.25mg Use 3 mL Un lala 1.25 mg/3 5-01 as ity of mL 14:57: directed [place] nebulizer every 6 Medical solution (six) Branch hours as needed for Wheezing. ALPRAZolam 2023-0 Yes 1mg Take 1 Unive rs 1 mg tablet 5-01 tablet by ity of 14:57: mouth in [address] morning [place] and 1 tablet at noon and 1 tablet in the evening. lisinopril 2023-0 Yes Take by Univ ers 10 mg 5-01 mouth ity of tablet 14:57: daily. [address] albuterol 2023-0 Yes 1.25mg Use 3 mL Un lala 1.25 mg/3 5-01 as ity of mL 14:57: directed [place] nebulizer every 6 Medical solution (six) Branch hours as needed for Wheezing. ALPRAZolam 3-0 Yes 1mg Take 1 Unive rs 1 mg tablet 5-01 tablet by ity of 14:57: mouth in [address] and 1 tablet at noon and 1 tablet in the evening. lisinopril 2023-0 Yes Take by Univ ers 10 mg 5-01 mouth ity of tablet 14:57: daily. [address] albuterol 2023-0 Yes 1.25mg Use 3 mL Un lala 1.25 mg/3 5-01 as ity of mL 14:57: directed [place] nebulizer every 6 Medical solution (six) Branch hours as needed for Wheezing. ALPRAZolam 2023-0 Yes 1mg Take 1 Unive rs 1 mg tablet 5-01 tablet by ity of 14:57: mouth in [address] morning [place] and 1 tablet at noon and 1 tablet in the evening. lisinopril 2023-0 Yes Take by Univ ers 10 mg 5-01 mouth ity of tablet 14:57: daily. [address] albuterol 2023-0 Yes 1.25mg Use 3 mL Un lala 1.25 mg/3 5-01 as ity of mL 14:57: directed [place] nebulizer 32 every 6 Medical solution (six) Branch hours as needed for Wheezing. ALPRAZolam 2023-0 Yes 1mg Take 1 Unive rs 1 mg tablet 5-01 tablet by ity of 14:57: mouth in [place] [address] the [facility] morning Branch and 1 tablet at noon and 1 tablet in the evening. lisinopril 2023-0 Yes Take by Univ ers 10 mg 5-01 mouth ity of tablet 14:57: daily. [address] Branch albuterol 2023-0 Yes 1.25mg Use 3 mL Un lala 1.25 mg/3 5-01 as ity of mL 14:57: directed [place] nebulizer 32 every 6 Medical solution (six) Branch hours as needed for Wheezing. ALPRAZolam 2023-0 Yes 1mg Take 1 Unive rs 1 mg tablet 5-01 tablet by ity of 14:57: mouth in [place] [address] the [facility] morning Branch and 1 tablet at noon and 1 tablet in the evening. lisinopril 2023-0 Yes Take by Univ ers 10 mg 5-01 mouth ity of tablet 14:57: daily. [address] Branch albuterol 2023-0 Yes 1.25mg Use 3 mL Un lala 1.25 mg/3 5-01 as ity of mL 14:57: directed [place] nebulizer every 6 Medical solution (six) Branch hours as needed for Wheezing. ALPRAZolam 2023-0 Yes 1mg Take 1 Unive rs 1 mg tablet 5-01 tablet by ity of 14:57: mouth in [place] [address] the [facility] morning Branch and 1 tablet at noon and 1 tablet in the evening. lisinopril 2023-0 Yes Take by Univ ers 10 mg 5-01 mouth ity of tablet 14:57: daily. [address] Branch albuterol 2023-0 Yes 1.25mg Use 3 mL Un lala 1.25 mg/3 5-01 as ity of mL 14:57: directed [place] nebulizer every 6 Medical solution (six) Branch hours as needed for Wheezing. ALPRAZolam 2023-0 Yes 1mg Take 1 Unive rs 1 mg tablet 5-01 tablet by ity of 14:57: mouth in [place] [address] the Medical morning Branch and 1 tablet at noon and 1 tablet in the evening. lisinopril 2023-0 Yes Take by Univ ers 10 mg 5-01 mouth ity of tablet 14:57: daily. [address] albuterol 2023-0 Yes 1.25mg Use 3 mL Un lala 1.25 mg/3 5-01 as ity of mL 14:57: directed [place] nebulizer every 6 Medical solution (six) Branch hours as needed for Wheezing. ALPRAZolam 2023-0 Yes 1mg Take 1 Unive rs 1 mg tablet 5-01 tablet by ity of 14:57: mouth in [place] [address] the [facility] morning Branch and 1 tablet at noon and 1 tablet in the evening. lisinopril 2023-0 Yes Take by Univ ers 10 mg 5-01 mouth ity of tablet 14:57: daily. [address] albuterol 2023-0 Yes 1.25mg Use 3 mL Un lala 1.25 mg/3 5-01 as ity of mL 14:57: directed [place] nebulizer every 6 Medical solution (six) Branch hours as needed for Wheezing. ALPRAZolam 2023-0 Yes 1mg Take 1 Unive rs 1 mg tablet 5-01 tablet by ity of 14:57: mouth in [address] morning [place] and 1 tablet at noon and 1 tablet in the evening. lisinopril 2023-0 Yes Take by Univ ers 10 mg 5-01 mouth ity of tablet 14:57: daily. [address] albuterol 2023-0 Yes 1.25mg Use 3 mL Un lala 1.25 mg/3 5-01 as ity of mL 14:57: directed [place] nebulizer every 6 Medical solution (six) Branch hours as needed for Wheezing. ALPRAZolam 2023-0 Yes 1mg Take 1 Unive rs 1 mg tablet 5-01 tablet by ity of 14:57: mouth in [place] [address] the [facility] morning [place] and 1 tablet at noon and 1 tablet in the evening. lisinopril 2023-0 Yes Take by Univ ers 10 mg 5-01 mouth ity of tablet 14:57: daily. [address] albuterol 2023-0 Yes 1.25mg Use 3 mL Un lala 1.25 mg/3 5-01 as ity of mL 14:57: directed [place] nebulizer 32 every 6 Medical solution (six) Branch hours as needed for Wheezing. ALPRAZolam 2023-0 Yes 1mg Take 1 Unive rs 1 mg tablet 5-01 tablet by ity of 14:57: mouth in [place] [address] the Medical morning Branch and 1 tablet at noon and 1 tablet in the evening. lisinopril 2023-0 Yes Take by Univ ers 10 mg 5-01 mouth ity of tablet 14:57: daily. [address] Branch albuterol 2023-0 Yes 1.25mg Use 3 mL Un lala 1.25 mg/3 5-01 as ity of mL 14:57: directed [place] nebulizer 32 every 6 Medical solution (six) Branch hours as needed for Wheezing. ALPRAZolam 2023-0 Yes 1mg Take 1 Unive rs 1 mg tablet 5-01 tablet by ity of 14:57: mouth in [place] [address] the Medical morning Branch and 1 tablet at noon and 1 tablet in the evening. lisinopril 2023-0 Yes Take by Univ ers 10 mg 5-01 mouth ity of tablet 14:57: daily. [address] Branch albuterol 2023-0 Yes 1.25mg Use 3 mL Un lala 1.25 mg/3 5-01 as ity of mL 14:57: directed [place] nebulizer every 6 Medical solution (six) Branch hours as needed for Wheezing. ALPRAZolam 2023-0 Yes 1mg Take 1 Unive rs 1 mg tablet 5-01 tablet by ity of 14:57: mouth in [place] [address] the [facility] morning Branch and 1 tablet at noon and 1 tablet in the evening. lisinopril 2023-0 Yes Take by Univ ers 10 mg 5-01 mouth ity of tablet 14:57: daily. [address] Branch albuterol 2023-0 Yes 1.25mg Use 3 mL Un lala 1.25 mg/3 5-01 as ity of mL 14:57: directed [place] nebulizer 32 every 6 Medical solution (six) Branch hours as needed for Wheezing. ALPRAZolam 2023-0 Yes 1mg Take 1 Unive rs 1 mg tablet 5-01 tablet by ity of 14:57: mouth in [place] [address] the Medical morning Branch and 1 tablet at noon and 1 tablet in the evening. lisinopril 2023-0 Yes Take by Univ ers 10 mg 5-01 mouth ity of tablet 14:57: daily. [address] Branch albuterol 2023-0 Yes 1.25mg Use 3 mL Un lala 1.25 mg/3 5-01 as ity of mL 14:57: directed [place] nebulizer 32 every 6 Medical solution (six) Branch hours as needed for Wheezing. ALPRAZolam 2023-0 Yes 1mg Take 1 Unive rs 1 mg tablet 5-01 tablet by ity of 14:57: mouth in [place] [address] the Medical morning Branch and 1 tablet at noon and 1 tablet in the evening. lisinopril 2023-0 Yes Take by Univ ers 10 mg 5-01 mouth ity of tablet 14:57: daily. [address] albuterol 2023-0 Yes 1.25mg Use 3 mL Un lala 1.25 mg/3 5-01 as ity of mL 14:57: directed [place] nebulizer 32 every 6 Medical solution (six) Branch hours as needed for Wheezing. ALPRAZolam 2023-0 Yes 1mg Take 1 Unive rs 1 mg tablet 5-01 tablet by ity of 14:57: mouth in [place] [address] the Medical morning Branch and 1 tablet at noon and 1 tablet in the evening. lisinopril 2023-0 Yes Take by Univ ers 10 mg 5-01 mouth ity of tablet 14:57: daily. [address] Branch albuterol 2023-0 Yes 1.25mg Use 3 mL Un lala 1.25 mg/3 5-01 as ity of mL 14:57: directed [place] nebulizer 32 every 6 Medical solution (six) Branch hours as needed for Wheezing. ALPRAZolam 2023-0 Yes 1mg Take 1 Unive rs 1 mg tablet 5-01 tablet by ity of 14:57: mouth in [place] [address] the Medical morning Branch and 1 tablet at noon and 1 tablet in the evening. lisinopril 2023-0 Yes Take by Univ ers 10 mg 5-01 mouth ity of tablet 14:57: daily. [address] Branch albuterol 2023-0 Yes 1.25mg Use 3 mL Un lala 1.25 mg/3 5-01 as ity of mL 14:57: directed [place] nebulizer 32 every 6 Medical solution (six) Branch hours as needed for Wheezing. ALPRAZolam 2023-0 Yes 1mg Take 1 Unive rs 1 mg tablet 5-01 tablet by ity of 14:57: mouth in [place] [address] the Medical morning Branch and 1 tablet at noon and 1 tablet in the evening. lisinopril 2023-0 Yes Take by Univ ers 10 mg 5-01 mouth ity of tablet 14:57: daily. [address] albuterol 3-0 Yes 1.25mg Use 3 mL Un lala 1.25 mg/3 5-01 as ity of mL 14:57: directed [place] nebulizer every 6 Medical solution (six) Branch hours as needed for Wheezing. ALPRAZolam 3-0 Yes 1mg Take 1 Unive rs 1 mg tablet 5-01 tablet by ity of 14:57: mouth in [place] [address] the Medical morning Branch and 1 tablet at noon and 1 tablet in the evening. lisinopril 2023-[address] [facility] ers 10 mg 5-01 mouth ity of tablet 14:57: daily. [address] albuterol 3-0 Yes 1.25mg Use 3 mL Un lala 1.25 mg/3 5-01 as ity of mL 14:57: directed [place] nebulizer every 6 Medical solution (six) Branch hours as needed for Wheezing. ALPRAZolam 3-0 Yes 1mg Take 1 Unive rs 1 mg tablet 5-01 tablet by ity of 14:57: mouth in [place] [address] the [facility] morning [place] and 1 tablet at noon and 1 tablet in the evening. lisinopril 3-[address] [facility] ers 10 mg 5-01 mouth ity of tablet 14:57: daily. [address] albuterol 3-0 Yes 1.25mg Use 3 mL Un lala 1.25 mg/3 5-01 as ity of mL 14:57: directed [place] nebulizer every 6 Medical solution (six) Branch hours as needed for Wheezing. oxyCODONE-a 0 2022- No 2{tbl} 2 tablet, Univers cetaminophe 07-01 05-01 Oral, ity of n 12:15: 12:07 ONCE, 1 [place] (PERCOCET) 00 :00 dose, On Medic al 5-325 mg 07/01/22 Branc h per tablet at 0715, 2 tablet Routine, DSU Pre-op celecoxib 2022- No 400mg 400 mg, Uni vers (CELEBREX) 07-01 Oral, ity of capsule 400 12:15: 12:07 ONCE, 1 [place] mg 00 :00 dose, On Medical 07/01/22 Branch at 0715, Routine, DSU Pre-op lactated 2022-0 2022- No 1000[facility] 07-01 mL/hr, [...] Pre-op lactated 2022- No 1000mL at [facility] IV 07-01 mL/hr, ity of infusion 12:15: 12:17 1,000 mL, [place] 1,000 mL 00 :00 IV Medical Infusion, Branch ONCE, 1 dose, On Fri07/01/22 at 0715, Routine, DSU Pre-op omeprazole 2022- No 40mg Take 1 Univ ers 40 mg 07-01 capsule by ity of capsule 09:38: 00:00 mouth in [place] 15 :00 the Medical morning. Branch loratadine 2022- No 10mg Take 1 Univ ers 10 mg 07-01 tablet by ity of tablet 09:38: 00:00 mouth in [place] 15 :00 the Medical morning. Branch aspirin 81 2022-0 3- No 81mg Take 1 Univ ers mg chewable 5-01 05-01 tablet by it y of tablet 09:38: 00:00 mouth in [place] 15 :00 the Medical morning. Branch omeprazole 2022-0 2022- No 40mg Take 1 Univ ers 40 mg 5-01 05- capsule by ity of capsule 09:38: 00:00 mouth in [place] 15 :00 the Medical morning. Branch loratadine 2022-0 2022- No 10mg Take 1 Univ ers 10 mg 5-01 05-01 tablet by ity of tablet 09:38: 00:00 mouth in [place] 15 :00 the Medical morning. Branch aspirin 81 2022-0 2022- No 81mg Take 1 Univ ers mg chewable 5-01 05-01 tablet by it y of tablet 09:38: 00:00 mouth in [place] 15 :00 the Medical morning. Branch ALPRAZolam 3-0 Yes 1mg Take 1 Unive rs 1 mg tablet 5-01 tablet by ity of 09:38: mouth in [address] morning Branch and 1 tablet at noon and 1 tablet in the evening. lisinopril 2023-0 Yes Take by Univ ers 10 mg 5-01 mouth ity of tablet 09:38: daily. [address] albuterol 3-0 Yes 1.25mg Use 3 mL Un lala 1.25 mg/3 5-01 as ity of mL 09:38: directed [place] nebulizer 11 every 6 Medical solution (six) Branch hours as needed for Wheezing. ALPRAZolam 3-0 Yes 1mg Take 1 Unive rs 1 mg tablet 5-01 tablet by ity of 09:38: mouth in [address] morning Branch and 1 tablet at noon and 1 tablet in the evening. lisinopril 2023-0 Yes Take by Univ ers 10 mg 5-01 mouth ity of tablet 09:38: daily. [address] albuterol 3-0 Yes 1.25mg Use 3 mL Un lala 1.25 mg/3 5-01 as ity of mL 09:38: directed [place] nebulizer 11 every 6 Medical solution (six) Branch hours as needed for Wheezing. aspirin 325 2022-0 2023- No [id number] 325mg Take 1 [facility] mg tablet 507-30 9100 tablet by ity of 00:: 04:59 mouth in [place] 00 :00 the Medical morning Branch and 1 tablet in the evening. Take with meals. Do all this for 28 days. aspirin 325 2023-0 3- No [id number] 325mg Take 1 [facility] mg tablet 507-30 9100 tablet by ity of 00:00: 04:59 mouth in [place] 00 :00 the [facility] morning Branch and 1 tablet in the evening. Take with meals. Do all this for 28 days. aspirin 325 3-0 3- No [id number] 325mg Take 1 [facility] mg tablet 5-07-30 9100 tablet by ity of 00:00: 04:59 mouth in [place] 00 :00 the [facility] morning [place] and 1 tablet in the evening. Take with meals. Do all this for 28 days. aspirin 325 2022-0 2022- No [id number] 325mg Take 1 [facility] mg tablet 507-30 9100 tablet by ity of 00:: 04:59 mouth in [place] 00 :00 the [facility] morning [place] and 1 tablet in the evening. Take with meals. Do all this for 28 days. aspirin 325 3-0 3- No [id number] 325mg Take 1 [facility] mg tablet 07-0100 tablet by ity of 00:00: 04:59 mouth in [place] 00 :00 the [facility] morning [place] and 1 tablet in the evening. Take with meals. Do all this for 28 days. aspirin 325 3-0 3- No [id number] 325mg Take 1 [facility] mg tablet 07-01 9100 tablet by ity of 00:00: 04:59 mouth in [place] 00 :00 the [facility] morning [place] and 1 tablet in the evening. Take with meals. Do all this for 28 days. aspirin 325 2023-0 2023- No [id number] 325mg Take 1 [facility] mg tablet 507-30 9100 tablet by ity of 00:00: 04:59 mouth in [place] 00 :00 the [facility] morning [place] and 1 tablet in the evening. Take with meals. Do all this for 28 days. aspirin 325 2023-0 2023- No [id number] 325mg Take 1 [facility] mg tablet 5-07-30 9100 tablet by ity of 00:00: 04:59 mouth in [place] 00 :00 the [facility] morning Branch and 1 tablet in the evening. Take with meals. Do all this for 28 days. aspirin 325 2023-0 2023- No [id number] 325mg Take 1 [facility] mg tablet 5-03 07- 9100 tablet by ity of 00:00: 04:59 mouth in [place] 00 :00 the [facility] morning [place] and 1 tablet in the evening. Take with meals. Do all this for 28 days. aspirin 325 2023-0 2023- No [id number] 325mg Take 1 [facility] mg tablet 5-03 07- 9100 tablet by ity of 00:00: 04:59 mouth in [place] 00 :00 the [facility] morning [place] and 1 tablet in the evening. Take with meals. Do all this for 28 days. aspirin 325 2023-0 2023- No [id number] 325mg Take 1 [facility] mg tablet 5-07-30 9100 tablet by ity of 00:: 04:59 mouth in [place] 00 :00 the [facility] and 1 tablet in the evening. Take with meals. Do all this for 28 days. aspirin 325 2023-0 2023- No [id number] 325mg Take 1 [facility] mg tablet 07-01 9100 tablet by ity of 00:: :59 mouth in [place] 00 :00 the [facility] and 1 tablet in the evening. Take with meals. Do all this for 28 days. aspirin 325 2023-0 2023- No [id number] 325mg Take 1 [facility] mg tablet 507-30 9100 tablet by ity of 00:00: 04:59 mouth in [place] 00 :00 the [facility] and 1 tablet in the evening. Take with meals. Do all this for 28 days. aspirin 325 2023-0 2023- No [id number] 325mg Take 1 [facility] mg tablet 5-03 07- 9100 tablet by ity of 00:00: 04:59 mouth in [place] 00 :00 the [facility] and 1 tablet in the evening. Take with meals. Do all this for 28 days. aspirin 325 2023-0 2023- No [id number] 325mg Take 1 [facility] mg tablet 5-03 07- 9100 tablet by ity of 00:00: 04:59 mouth in [place] 00 :00 the [facility] and 1 tablet in the evening. Take with meals. Do all this for 28 days. aspirin 325 2023-0 2022- No [id number] 325mg Take 1 [facility] mg tablet 5-03 07-30 9100 tablet by ity of 00:00: 04:59 mouth in [place] 00 :00 the [facility] and 1 tablet in the evening. Take with meals. Do all this for 28 days. aspirin 325 2022-0 202- No [id number] 325mg Take 1 [facility] mg tablet 5-03 07- 9100 tablet by ity of 00:00: 04:59 mouth in [place] 00 :00 the [facility] morning [place] and 1 tablet in the evening. Take with meals. Do all this for 28 days. aspirin 325 2022-0 2022- No [id number] 325mg Take 1 [facility] mg tablet 5-03 07- 9100 tablet by ity of 00:00: 04:59 mouth in [place] 00 :00 the [facility] and 1 tablet in the evening. Take with meals. Do all this for 28 days. aspirin 325 2022-0 2022- No [id number] 325mg Take 1 [facility] mg tablet 5-03 07- 9100 tablet by ity of 00:00: 04:59 mouth in [place] 00 :00 the [facility] and 1 tablet in the evening. Take with meals. Do all this for 28 days. aspirin 325 2022-0 2022- No [id number] 325mg Take 1 [facility] mg tablet 507-30 9100 tablet by ity of 00:00: 04:59 mouth in [place] 00 :00 the [facility] and 1 tablet in the evening. Take [...] by ity of capsule 15:48: mouth in [place] [address] the Medical morning. Branch omeprazole 2023-0 Yes 40mg Take 1 Unive rs 40 mg 4-17 capsule by ity of capsule 15:48: mouth in [place] [address] the Medical morning. Branch omeprazole 2023-0 Yes 40mg Take 1 Unive rs 40 mg 4-17 capsule by ity of capsule 15:48: mouth in [place] [address] the Medical morning. Branch omeprazole 2023-0 Yes 40mg Take 1 Unive rs 40 mg 4-17 capsule by ity of capsule 15:48: mouth in [place] [address] the Medical morning. Branch ALPRAZolam 2023-0 Yes 1mg Take 1 Unive rs 1 mg tablet 4-17 tablet by ity of 15:46: mouth in [place] [address] the Medical morning Branch and 1 tablet at noon and 1 tablet in the evening. loratadine 2023-0 Yes 10mg Take 1 Unive rs 10 mg 4-17 tablet by ity of tablet 15:46: mouth in [place] [address] the Medical morning. Branch aspirin 81 3-0 Yes 81mg Take 1 Unive rs mg chewable 4-17 tablet by ity of tablet 15:46: mouth in [place] [address] the Medical morning. Branch lisinopril 3-0 Yes Take by Univ ers 10 mg 4-17 mouth ity of tablet 15:46: daily. [address] albuterol 3-0 Yes 1.25mg Use 3 mL Un lala 1.25 mg/3 4-17 as ity of mL 15:46: directed [place] nebulizer every 6 Medical solution (six) Branch hours as needed for Wheezing. ALPRAZolam 3-0 Yes 1mg Take 1 Unive rs 1 mg tablet 4-17 tablet by ity of 15:46: mouth in [place] [address] the Medical morning Branch and 1 tablet at noon and 1 tablet in the evening. loratadine 2023-0 Yes 10mg Take 1 Unive rs 10 mg 4-17 tablet by ity of tablet 15:46: mouth in [place] [address] the Medical morning. Branch aspirin 81 3-0 Yes 81mg Take 1 Unive rs mg chewable 4-17 tablet by ity of tablet 15:46: mouth in [place] [address] the Medical morning. Branch lisinopril 3-0 Yes Take by Univ ers 10 mg 4-17 mouth ity of tablet 15:46: daily. [place] [address] Medical Branch albuterol 3-0 Yes 1.25mg Use 3 mL Un lala 1.25 mg/3 4-17 as ity of mL 15:46: directed [place] nebulizer 05 every 6 Medical solution (six) Branch hours as needed for Wheezing. ALPRAZolam 2023-0 Yes 1mg Take 1 Unive rs 1 mg tablet 4-17 tablet by ity of 15:46: mouth in [place] [address] the Medical morning Branch and 1 tablet at noon and 1 tablet in the evening. loratadine 2023-0 Yes 10mg Take 1 Unive rs 10 mg 4-17 tablet by ity of tablet 15:46: mouth in [place] [address] the Medical morning. Branch aspirin 81 3-0 Yes 81mg Take 1 Unive rs mg chewable 4-17 tablet by ity of tablet 15:46: mouth in [place] [address] the Medical morning. Branch lisinopril 3-0 Yes Take by Univ ers 10 mg 4-17 mouth ity of tablet 15:46: daily. [address] Branch albuterol 3-0 Yes 1.25mg Use 3 mL Un lala 1.25 mg/3 4-17 as ity of mL 15:46: directed [place] nebulizer 05 every 6 Medical solution (six) Branch hours as needed for Wheezing. ALPRAZolam 3-0 Yes 1mg Take 1 Unive rs 1 mg tablet 4-17 tablet by ity of 15:46: mouth in [place] [address] the [facility] morning Branch and 1 tablet at noon and 1 tablet in the evening. loratadine 2023-0 Yes 10mg Take 1 Unive rs 10 mg 4-17 tablet by ity of tablet 15:46: mouth in [place] [address] the Medical morning. Branch aspirin 81 3-0 Yes 81mg Take 1 Unive rs mg chewable 4-17 tablet by ity of tablet 15:46: mouth in [place] [address] the Medical morning. Branch lisinopril 2023-0 Yes Take by Univ ers 10 mg 4-17 mouth ity of tablet 15:46: daily. [address] Branch albuterol 3-0 Yes 1.25mg Use 3 mL Un lala 1.25 mg/3 4-17 as ity of mL 15:46: directed [place] nebulizer 05 every 6 Medical solution (six) Branch hours as needed for Wheezing. ALPRAZolam 0 Yes 1mg Take 1 Unive rs 1 mg tablet 4-17 tablet by ity of 15:46: mouth in [place] [address] the Medical morning Branch and 1 tablet at noon and 1 tablet in the evening. loratadine 0 Yes 10mg Take 1 Unive rs 10 mg 4-17 tablet by ity of tablet 15:46: mouth in [place] [address] the Medical morning. Branch aspirin 81 2022-0 Yes 81mg Take 1 Unive rs mg chewable 4-17 tablet by ity of tablet 15:46: mouth in [place] [address] the Medical morning. Branch lisinopril Yes Take by Univ ers 10 mg 4-17 mouth ity of tablet 15:46: daily. [address] Branch albuterol 0 Yes 1.25mg Use 3 mL Un lala 1.25 mg/3 4-17 as ity of mL 15:46: directed [place] nebulizer 05 every 6 Medical solution (six) Branch hours as needed for Wheezing. spironolact 0 Yes 1{tbl} Take 1 Un lala one-hydroch 4-11 tablet by ity of lorothiazid 00:00: mouth in [place] e 25-25 mg 00 the Medical per tablet morning. [facility] spironolact Yes 1{tbl} Take 1 Un lala one-hydroch 4-11 tablet by ity of lorothiazid 00:00: mouth in [place] e 25-25 mg 00 the Medical per tablet morning. [facility] h spironolact 0 Yes 1{tbl} Take 1 Un lala one-hydroch 4-11 tablet by ity of lorothiazid 00:00: mouth in [place] e 25-25 mg 00 the Medical per tablet morning. [facility] h spironolact 2022-0 Yes 1{tbl} Take 1 [...] mg 00 the Medical per tablet morning. [facility] h spironolact 2022-0 Yes 1{tbl} Take 1 Un lala one-hydroch 4-11 tablet by ity of lorothiazid 00:00: mouth in [place] e 25-25 mg 00 the Medical per tablet morning. [facility] spironolact 2022-0 Yes 1{tbl} Take 1 Un lala one-hydroch 4-11 tablet by ity of lorothiazid 00:00: mouth in [place] e 25-25 mg 00 the Medical per tablet morning. [facility] spironolact 2022-0 Yes 1{tbl} Take 1 Un lala one-hydroch 4-11 tablet by ity of lorothiazid 00:00: mouth in [place] e 25-25 mg 00 the Medical per tablet morning. [facility] spironolact 2022-0 Yes 1{tbl} Take 1 Un lala one-hydroch 4-11 tablet by ity of lorothiazid 00:00: mouth in [place] e 25-25 mg 00 the Medical per tablet morning. [facility] spironolact 2022-0 Yes 1{tbl} Take 1 Un lala one-hydroch 4-11 tablet by ity of lorothiazid 00:00: mouth in [place] e 25-25 mg 00 the Medical per tablet morning. [facility] h spironolact 2022-0 Yes 1{tbl} Take 1 Un lala one-hydroch 4-11 tablet by ity of lorothiazid 00:00: mouth in [place] e 25-25 mg 00 the Medical per tablet morning. [facility] h spironolact 2022-0 Yes 1{tbl} Take 1 [...] Medical per tablet morning. [facility] h spironolact 2023-0 Yes 1{tbl} Take 1 Un lala one-hydroch 4-11 tablet by ity of lorothiazid 00:00: mouth in [place] e 25-25 mg 00 the Medical per tablet morning. [facility] spironolact 2022-0 Yes 1{tbl} Take 1 Un lala one-hydroch 4-11 tablet by ity of lorothiazid 00:00: mouth in [place] e 25-25 mg 00 the Medical per tablet morning. [facility] spironolact 0 Yes 1{tbl} Take 1 Un llaa one-hydroch 4-11 tablet by ity of lorothiazid 00:00: mouth in [place] e 25-25 mg 00 the Medical per tablet morning. [facility] spironolact 0 Yes 1{tbl} Take 1 Un lala one-hydroch 4-11 tablet by ity of lorothiazid 00:00: mouth in [place] e 25-25 mg 00 the Medical per tablet morning. [facility] spironolact 0 Yes 1{tbl} Take 1 Un lala one-hydroch 4-11 tablet by ity of lorothiazid 00:00: mouth in [place] e 25-25 mg 00 the Medical per tablet morning. [facility] omeprazole 0 Yes 40mg Take 1 Unive rs 40 mg 4-04 capsule by ity of capsule 15:05: mouth in [place] [address] the Medical morning. Branch loratadine 2022-0 Yes 10mg Take 1 Unive rs 10 mg 4-04 tablet by ity of tablet 15:05: mouth in [place] [address] the Medical morning. Branch aspirin 81 2022-0 Yes 81mg Take 1 Unive rs mg chewable 4-04 tablet by ity of tablet 15:05: mouth in [place] [address] the Medical morning. Branch lisinopril 0 Yes Take by Univ ers 10 mg 4-04 mouth ity of tablet 15:05: daily. [place] [address] Medical Branch albuterol 2022-0 Yes 1.25mg Use 3 mL Un lala 1.25 mg/3 4-04 as ity of mL 15:05: directed [place] nebulizer 28 every 6 Medical solution (six) Branch hours as needed for Wheezing. ALPRAZolam 0 Yes 1mg Take 1 Unive rs 1 mg tablet 4-04 tablet by ity of 15:05: mouth in [place] [address] the Medical morning Branch and 1 tablet at noon and 1 tablet in the evening. omeprazole 2023-0 Yes 40mg Take 1 Unive rs 40 mg 4-04 capsule by ity of capsule 15:05: mouth in [place] [address] the Medical morning. Branch loratadine 3-0 Yes 10mg Take 1 Unive rs 10 mg 4-04 tablet by ity of tablet 15:05: mouth in [place] [address] the Medical morning. Branch aspirin 81 3-0 Yes 81mg Take 1 Unive rs mg chewable 4-04 tablet by ity of tablet 15:05: mouth in [place] [address] the Medical morning. Branch lisinopril 3-0 Yes Take by Univ ers 10 mg 4-04 mouth ity of tablet 15:05: daily. [place] [address] Medical Branch albuterol 3-0 Yes 1.25mg Use 3 mL Un lala 1.25 mg/3 4-04 as ity of mL 15:05: directed [place] nebulizer every 6 Medical solution (six) Branch hours as needed for Wheezing. ALPRAZolam 3-0 Yes 1mg Take 1 Unive rs 1 mg tablet 4-04 tablet by ity of 15:05: mouth in [place] [address] the Medical morning Branch and 1 tablet at noon and 1 tablet in the evening. omeprazole 2023-0 Yes 40mg Take 1 Unive rs 40 mg 4-04 capsule by ity of capsule 15:05: mouth in [place] [address] the Medical morning. Branch loratadine 3-0 Yes 10mg Take 1 Unive rs 10 mg 4-04 tablet by ity of tablet 15:05: mouth in [place] [address] the Medical morning. Branch aspirin 81 3-0 Yes 81mg Take 1 Unive rs mg chewable 4-04 tablet by ity of tablet 15:05: mouth in [place] [address] the Medical morning. Branch lisinopril 3-0 Yes Take by Univ ers 10 mg 4-04 mouth ity of tablet 15:05: daily. [place] [address] Medical Branch albuterol 3-0 Yes 1.25mg Use 3 mL Un lala 1.25 mg/3 4-04 as ity of mL 15:05: directed [place] nebulizer every 6 Medical solution (six) Branch hours as needed for Wheezing. ALPRAZolam 2023-0 Yes 1mg Take 1 Unive rs 1 mg tablet 4-04 tablet by ity of 15:05: mouth in [place] [address] the Medical morning Branch and 1 tablet at noon and 1 tablet in the evening. omeprazole 2023-0 Yes 40mg Take 1 Unive rs 40 mg 4-04 capsule by ity of capsule 15:05: mouth in [place] [address] the Medical morning. Branch loratadine 3-0 Yes 10mg Take 1 Unive rs 10 mg 4-04 tablet by ity of tablet 15:05: mouth in [place] [address] the Medical morning. Branch aspirin 81 2023-0 Yes 81mg Take 1 Unive rs mg chewable 4-04 tablet by ity of tablet 15:05: mouth in [place] [address] the Medical morning. Branch lisinopril 3-0 Yes Take by Univ ers 10 mg 4-04 mouth ity of tablet 15:05: daily. [place] [address] Medical Branch albuterol 3-0 Yes 1.25mg Use 3 mL Un lala 1.25 mg/3 4-04 as ity of mL 15:05: directed [place] nebulizer every 6 Medical solution (six) Branch hours as needed for Wheezing. ALPRAZolam 3-0 Yes 1mg Take 1 Unive rs 1 mg tablet 4-04 tablet by ity of 15:05: mouth in [place] [address] the Medical morning Branch and 1 tablet at noon and 1 tablet in the evening. omeprazole 2023-0 Yes 40mg Take 1 Unive rs 40 mg 4-04 capsule by ity of capsule 15:05: mouth in [place] [address] the Medical morning. Branch loratadine 3-0 Yes 10mg Take 1 Unive rs 10 mg 4-04 tablet by ity of tablet 15:05: mouth in [place] [address] the Medical morning. Branch aspirin 81 2023-0 Yes 81mg Take 1 Unive rs mg chewable 4-04 tablet by ity of tablet 15:05: mouth in [place] [address] the Medical morning. Branch lisinopril 2023-0 Yes Take by Univ ers 10 mg 4-04 mouth ity of tablet 15:05: daily. [address] Branch albuterol 3-0 Yes 1.25mg Use 3 mL Un lala 1.25 mg/3 4-04 as ity of mL 15:05: directed [place] nebulizer every 6 Medical solution (six) Branch hours as needed for Wheezing. ALPRAZolam 3-0 Yes 1mg Take 1 Unive rs 1 mg tablet 4-04 tablet by ity of 15:05: mouth in [place] 28 the Medical morning Branch and 1 tablet at noon and 1 tablet in the evening. acetaminoph 2023-0 Yes 2745 1{tbl} Take 1 [...] by ity of capsule 00:00: mouth in [address] morning [place] and 1 capsule in the evening. celecoxib 2023-0 Yes 100mg Take 1 Unive rs 100 mg 3-21 capsule by ity of capsule 00:00: mouth in [address] morning [place] and 1 capsule in the evening. celecoxib 2023-0 Yes 100mg Take 1 Unive rs 100 mg 3-21 capsule by ity of capsule 00:00: mouth in [address] and 1 capsule in the evening. celecoxib 2023-0 Yes 100mg Take 1 Unive rs 100 mg 3-21 capsule by ity of capsule 00:00: mouth in [address] morning [place] and 1 capsule in the evening. celecoxib 2023-0 Yes 100mg Take 1 Unive rs 100 mg 3-21 capsule by ity of capsule 00:00: mouth in [address] morning [place] and 1 capsule in the evening. celecoxib 2023-0 Yes 100mg Take 1 Unive rs 100 mg 3-21 capsule by ity of capsule 00:00: mouth in [address] and 1 capsule in the evening. celecoxib 2023-0 Yes 100mg Take 1 Unive rs 100 mg 3-21 capsule by ity of capsule 00:00: mouth in [address] and 1 capsule in the evening. celecoxib 2023-0 Yes 100mg Take 1 Unive rs 100 mg 3-21 capsule by ity of capsule 00:00: mouth in [address] Medical morning [place] and 1 capsule in the evening. celecoxib 2023-0 Yes 100mg Take 1 Unive rs 100 mg 3-21 capsule by ity of capsule 00:00: mouth in [place] [address] the Medical morning [place] and 1 capsule in the evening. celecoxib 2023-0 Yes 100mg Take 1 Unive rs 100 mg 3-21 capsule by ity of capsule 00:00: mouth in [place] [address] the Medical morning [place] and 1 capsule in the evening. celecoxib 2023-0 Yes 100mg Take 1 Unive rs 100 mg 3-21 capsule by ity of capsule 00:00: mouth in [address] Medical morning [place] and 1 capsule in the evening. celecoxib 2023-0 Yes 100mg Take 1 Unive rs 100 mg 3-21 capsule by ity of capsule 00:00: mouth in [address] morning [place] and 1 capsule in the evening. celecoxib 2023-0 Yes 100mg Take 1 Unive rs 100 mg 3-21 capsule by ity of capsule 00:00: mouth in [address] morning [place] and 1 capsule in the evening. celecoxib 2023-0 Yes 100mg Take 1 Unive rs 100 mg 3-21 capsule by ity of capsule 00:00: mouth in [address] morning [place] and 1 capsule in the evening. celecoxib 2023-0 Yes 100mg Take 1 Unive rs 100 mg 3-21 capsule by ity of capsule 00:00: mouth in [address] morning [place] and 1 capsule in the evening. celecoxib 2023-0 Yes 100mg Take 1 Unive rs 100 mg 3-21 capsule by ity of capsule 00:00: mouth in [address] morning [place] and 1 capsule in the evening. celecoxib 2023-0 Yes 100mg Take 1 Unive rs 100 mg 3-21 capsule by ity of capsule 00:00: mouth in [address] morning [place] and 1 capsule in the evening. celecoxib 2023-0 Yes 100mg Take 1 Unive rs 100 mg 3-21 capsule by ity of capsule 00:00: mouth in [address] morning [place] and 1 capsule in the evening. celecoxib 2023-0 Yes 100mg Take 1 Unive rs 100 mg 3-21 capsule by ity of capsule 00:00: mouth in [address] morning [place] and 1 capsule in the evening. celecoxib 2023-0 Yes 100mg Take 1 Unive rs 100 mg 3-21 capsule by ity of capsule 00:00: mouth in [place] [address] the Medical morning Branch and 1 capsule in the evening. celecoxib 2023-0 Yes 100mg Take 1 Unive rs 100 mg 3-21 capsule by ity of capsule 00:00: mouth in [place] [address] the Medical morning Branch and 1 capsule in the evening. celecoxib 2023-0 Yes 100mg Take 1 Unive rs 100 mg 3-21 capsule by ity of capsule 00:00: mouth in [place] [address] the Medical morning Branch and 1 capsule in the evening. celecoxib 2023-0 Yes 100mg Take 1 Unive rs 100 mg 3-21 capsule by ity of capsule 00:00: mouth in [place] [address] the Medical morning Branch and 1 capsule in the evening. celecoxib 2023-0 Yes 100mg Take 1 Unive rs 100 mg 3-21 capsule by ity of capsule 00:00: mouth in [place] [address] the Medical morning [place] and 1 capsule in the evening. celecoxib 2023-0 Yes 100mg Take 1 Unive rs 100 mg 3-21 capsule by ity of capsule 00:00: mouth in [address] Medical morning [place] and 1 capsule in the evening. celecoxib 2023-0 Yes 100mg Take 1 Unive rs 100 mg 3-21 capsule by ity of capsule 00:00: mouth in [place] [address] the Medical morning [place] and 1 capsule in the evening. celecoxib 2023-0 Yes 100mg Take 1 Unive rs 100 mg 3-21 capsule by ity of capsule 00:00: mouth in [place] [address] the Medical morning [place] and 1 capsule in the evening. celecoxib 2023-0 Yes 100mg Take 1 Unive rs 100 mg 3-21 capsule by ity of capsule 00:00: mouth in [address] Medical morning [place] and 1 capsule in the evening. celecoxib 2023-0 Yes 100mg Take 1 Unive rs 100 mg 3-21 capsule by ity of capsule 00:00: mouth in [place] [address] the Medical morning [place] and 1 capsule in the evening. celecoxib 2023-0 Yes 100mg Take 1 Unive rs 100 mg 3-21 capsule by ity of capsule 00:00: mouth in [address] Medical morning [place] and 1 capsule in the evening. celecoxib 2023-0 Yes 100mg Take 1 Unive rs 100 mg 3-21 capsule by ity of capsule 00:00: mouth in [place] 00 the Medical morning Branch and 1 capsule in the evening. celecoxib 2023-0 Yes 100mg Take 1 Unive rs 100 mg 3-21 capsule by ity of capsule 00:00: mouth in [place] [address] the Medical morning [place] and 1 capsule in the evening. celecoxib 2023-0 Yes 100mg Take 1 Unive rs 100 mg 3-21 capsule by ity of capsule 00:00: mouth in [place] [address] the Medical morning [place] and 1 capsule in the evening. celecoxib 2023-0 Yes 100mg Take 1 Unive rs 100 mg 3-21 capsule by ity of capsule 00:00: mouth in [place] [address] the Medical morning [place] and 1 capsule in the evening. celecoxib 2023-0 Yes 100mg Take 1 Unive rs 100 mg 3-21 capsule by ity of capsule 00:00: mouth in [place] [address] the [facility] morning [place] and 1 capsule in the evening. celecoxib 2023-0 Yes 100mg Take 1 Unive rs 100 mg 3-21 capsule by ity of capsule 00:00: mouth in [place] [address] the [facility] morning [place] and 1 capsule in the evening. celecoxib 2023-0 Yes 100mg Take 1 Unive rs 100 mg 3-21 capsule by ity of capsule 00:00: mouth in [place] [address] the [facility] morning [place] and 1 capsule in the evening. celecoxib 2023-0 Yes 100mg Take 1 Unive rs 100 mg 3-21 capsule by ity of capsule 00:00: mouth in [place] [address] the [facility] morning [place] and 1 capsule in the evening. celecoxib 2023-0 Yes 100mg Take 1 Unive rs 100 mg 3-21 capsule by ity of capsule 00:00: mouth in [place] [address] the [facility] and 1 capsule in the evening. celecoxib 2023-0 Yes 100mg Take 1 Unive rs 100 mg 3-21 capsule by ity of capsule 00:00: mouth in [place] [address] the [facility] morning [place] and 1 capsule in the evening. oxyCODONE-a 2022- No 2{tbl} Uni vers cetaminophe 05-20 ity of n 05:00: 16:59 [place] (PERCOCET) 00 :00 Medical 5-325 mg Branch per tablet 2 tablet tranexamic 2022-0 2022- No 1000mg Univ ers acid 05-2020 ity of (CYKLOKAPRO 05:00: 16:59 [place] N) 1,000 mg 00 :00 Medical in [...] cetaminophe 05-20 ity of n 05:00: 16:59 [place] (PERCOCET) 00 :00 Medical 5-325 mg Branch per tablet 2 tablet tranexamic 0 2022- No 1000mg Univ ers acid 05-2020 ity of (CYKLOKAPRO 05:00: 16:59 [place] N) 1,000 mg 00 :00 Medical in NaCl Branch 0.9% (NS) 250 mL piggyback predniSONE 3-0 Yes 10mg Take 1 Unive rs 10 mg 3-13 tablet by ity of tablet 00:00: mouth in [place] 00 the Medical morning. Branch predniSONE 2023-0 Yes 10mg Take 1 [facility] rs 10 mg 3-13 tablet by ity of tablet 00:00: mouth in [place] 00 the Medical morning. Branch predniSONE 2023-0 Yes 10mg Take 1 Unive rs 10 mg 3-13 tablet by ity of tablet 00:00: mouth in [place] 00 the Medical morning. Branch predniSONE 2023-0 Yes 10mg Take 1 Unive rs 10 mg 3-13 tablet by ity of tablet 00:00: mouth in [place] 00 the Medical morning. Branch predniSONE 2023-0 Yes 10mg Take 1 Unive rs 10 mg 3-13 tablet by ity of tablet 00:00: mouth in [place] 00 the Medical morning. Branch predniSONE 2023-0 Yes 10mg Take 1 Unive rs 10 mg 3-13 tablet by ity of tablet 00:00: mouth in [place] 00 the Medical morning. Branch predniSONE 2023-0 Yes 10mg Take 1 Unive rs 10 mg 3-13 tablet by ity of tablet 00:00: mouth in [place] 00 the Medical morning. Branch predniSONE 2023-0 Yes 10mg Take 1 Unive rs 10 mg 3-13 tablet by ity of tablet 00:00: mouth in [place] 00 the Medical morning. Branch predniSONE 2023-0 Yes 10mg Take 1 Unive rs 10 mg 3-13 tablet by ity of tablet 00:00: mouth in [place] 00 the Medical morning. Branch predniSONE 2023-0 Yes 10mg Take 1 Unive rs 10 mg 3-13 tablet by ity of tablet 00:00: mouth in [place] 00 the Medical morning. Branch predniSONE 2023-0 2023- No 10mg Take 1 Univ ers 10 mg 05-13 tablet by ity of tablet 00:00: 00:00 mouth in [place] 00 :00 the Medical morning. Branch predniSONE 2023-0 2023- No 10mg Take 1 Univ ers 10 mg 05-13 tablet by ity of tablet 00:00: 00:00 mouth in [place] 00 :00 the Medical morning. Branch ipratropium [...] at 1830, Routine diclofenac 2022-0 3- No [id number] 75mg Take 1 Univers 75 mg EC 05-08 9100 tablet by ity o f tablet 00:00: 04:59 mouth in [place] 00 :00 the [facility] morning [place] and 1 tablet in the evening. Take with meals. Do all this for 30 days. diclofenac 2022-0 3- No [id number] 75mg Take 1 Univers 75 mg EC 05-08 9100 tablet by ity o f tablet 00:00: 04:59 mouth in [place] 00 :00 the [facility] and 1 tablet in the evening. Take with meals. Do all this for 30 days. diclofenac 2022-0 3- No [id number] 75mg Take 1 Univers 75 mg EC 05-08 9100 tablet by ity o f tablet 00:00: 04:59 mouth in [place] 00 :00 the [facility] and 1 tablet in the evening. Take with meals. Do all this for 30 days. diclofenac 2022-0 3- No [id number] 75mg Take 1 Univers 75 mg EC 05-08 9100 tablet by ity o f tablet 00:00: 04:59 mouth in [place] 00 :00 the [facility] and 1 tablet in the evening. Take with meals. Do all this for 30 days. diclofenac 2022-0 2023- No [id number] 75mg Take 1 [facility] 75 mg EC 05-08 9100 tablet by ity o f tablet 00:00: 04:59 mouth in [place] 00 :00 the [facility] and 1 tablet in the evening. Take with meals. Do all this for 30 days. diclofenac 2022-0 2023- No [id number] 75mg Take 1 [facility] 75 mg EC 05-08 9100 tablet by ity o f tablet 00:00: 04:59 mouth in [place] 00 :00 the Medical morning Branch and 1 tablet in the evening. Take with meals. Do all this for 30 days. diclofenac 2023-0 2023- No [id number] 75mg Take 1 [facility] 75 mg EC 05-08 9100 tablet by ity o f tablet 00:00: 04:59 mouth in [place] 00 :00 the Medical morning Branch and 1 tablet in the evening. Take with meals. Do all this for 30 days. diclofenac 2023-0 2023- No [id number] 75mg Take 1 [facility] 75 mg EC 05-08 9100 tablet by ity o f tablet 00:00: 04:59 mouth in [place] 00 :00 the Medical morning Branch and 1 tablet in the evening. Take with meals. Do all this for 30 days. diclofenac 2023-0 2023- No [id number] 75mg Take 1 Univers 75 mg EC 05-08 9100 tablet by ity o f tablet 00:00: 04:59 mouth in [place] 00 :00 the [facility] morning [place] and 1 tablet in the evening. Take with meals. Do all this for 30 days. diclofenac 3-0 2023- No [id number] 75mg Take 1 Univers 75 mg EC 05-08 9100 tablet by ity o f tablet 00:00: 04:59 mouth in [place] 00 :00 the [facility] morning [place] and 1 tablet in the evening. Take with meals. Do all this for 30 days. diclofenac 2023-0 2023- No [id number] 75mg Take 1 [facility] 75 mg EC 05-08 9100 tablet by ity o f tablet 00:00: 04:59 mouth in [place] 00 :00 the [facility] morning [place] and 1 tablet in the evening. Take with meals. Do all this for 30 days. diclofenac 2023-0 2023- No [id number] 75mg Take 1 [facility] 75 mg EC 05-08 9100 tablet by ity o f tablet 00:00: 04:59 mouth in [place] 00 :00 the [facility] morning [place] and 1 tablet in the evening. Take [...] mouth ity of tablet 09:39: 00:00 daily. [place] 42 :00 Medical Branch atorvastati 2022-0 3- No 20mg Take 20 mg Univers n 20 mg 2-21 02-21 by mouth ity of tablet 09:39: 00:00 daily. [place] 42 :00 Medical Branch ALPRAZolam 2022-0 Yes 1mg Take 1 mg Un lala 1 mg tablet 2-21 by mouth 3 it y of 08:34: (three) [place] [address] times Medical daily. Branch omeprazole 2022-0 Yes 40mg Take 40 mg U nivers 40 mg 2-21 by mouth ity of capsule 08:34: daily. [address] Branch loratadine 2022-0 Yes 10mg Take 10 mg U nivers 10 mg 2-21 by mouth ity of tablet 08:34: daily. [address] Branch aspirin 81 2022-0 Yes 81mg Take 81 mg U nivers mg chewable 2-21 by mouth ity of tablet 08:34: daily. [address] Branch lisinopril 2022-0 Yes Take by Univ ers 10 mg 2-21 mouth ity of tablet 08:34: daily. [address] Branch albuterol 2022-0 Yes 1{ampul Use 1 Univ ers 1.25 mg/3 2-21 e} Ampule as ity o f mL 08:34: directed [place] nebulizer every 6 Medical solution (six) Branch hours as needed for Wheezing. ALPRAZolam 0 Yes 1mg Take 1 mg Un lala 1 mg tablet 2-21 by mouth 3 it y of 08:34: (three) [address] Medical daily. Branch omeprazole 2022-0 Yes 40mg Take 40 mg U nivers 40 mg 2-21 by mouth ity of capsule 08:34: daily. [address] Branch loratadine 2022-0 Yes 10mg Take 10 mg U nivers 10 mg 2-21 by mouth ity of tablet 08:34: daily. [address] Branch aspirin 81 2022-0 Yes 81mg Take 81 mg U nivers mg chewable 2-21 by mouth ity of tablet 08:34: daily. [address] Branch lisinopril 2022-0 Yes Take by Univ ers 10 mg 2-21 mouth ity of tablet 08:34: daily. [address] Branch albuterol 2022-0 Yes 1{ampul Use 1 Univ ers 1.25 mg/3 2-21 e} Ampule as ity o f mL 08:34: directed [place] nebulizer 43 every 6 Medical solution (six) Branch hours as needed for Wheezing. ALPRAZolam 2022-0 Yes 1mg Take 1 mg Un lala 1 mg tablet 2-21 by mouth 3 it y of 08:34: (three) [place] [address] times Medical daily. Branch omeprazole 2022-0 Yes 40mg Take 40 mg U nivers 40 mg 2-21 by mouth ity of capsule 08:34: daily. [address] Branch loratadine 2022-0 Yes 10mg Take 10 mg U nivers 10 mg 2-21 by mouth ity of tablet 08:34: daily. [address] aspirin 81 2022-0 Yes 81mg Take 81 mg U nivers mg chewable 2-21 by mouth ity of tablet 08:34: daily. [address] Branch lisinopril 2022-0 Yes Take by Univ ers 10 mg 2-21 mouth ity of tablet 08:34: daily. [address] albuterol 2022-0 Yes 1{ampul Use 1 Univ ers 1.25 mg/3 2-21 e} Ampule as ity o f mL 08:34: directed [place] nebulizer 43 every 6 Medical solution (six) Branch hours as needed for Wheezing. ALPRAZolam 2022-0 Yes 1mg Take 1 mg Un lala 1 mg tablet 2-21 by mouth 3 it y of 08:34: (three) [place] [address] times Medical daily. Branch omeprazole 2022-0 Yes 40mg Take 40 mg U nivers 40 mg 2-21 by mouth ity of capsule 08:34: daily. [address] Branch loratadine 2022-0 Yes 10mg Take 10 mg U nivers 10 mg 2-21 by mouth ity of tablet 08:34: daily. [address] aspirin 81 2022-0 Yes 81mg Take 81 mg U nivers mg chewable 2-21 by mouth ity of tablet 08:34: daily. [address] Branch lisinopril 2022-0 Yes Take by Univ ers 10 mg 2-21 mouth ity of tablet 08:34: daily. [address] albuterol 2022-0 Yes 1{ampul Use 1 Univ ers 1.25 mg/3 2-21 e} Ampule as ity o f mL 08:34: directed [place] nebulizer 43 every 6 Medical solution (six) Branch hours as needed for Wheezing. ALPRAZolam 2022-0 Yes 1mg Take 1 mg Un lala 1 mg tablet 2-21 by mouth 3 it y of 08:34: (three) [place] [address] times Medical daily. Branch omeprazole 2022-0 Yes 40mg Take 40 mg U nivers 40 mg 2-21 by mouth ity of capsule 08:34: daily. [address] Branch loratadine 2022-0 Yes 10mg Take 10 mg U nivers 10 mg 2-21 by mouth ity of tablet 08:34: daily. [address] aspirin 81 2022-0 Yes 81mg Take 81 mg U nivers mg chewable 2-21 by mouth ity of tablet 08:34: daily. [address] Branch lisinopril 2022-0 Yes Take by Univ ers 10 mg 2-21 mouth ity of tablet 08:34: daily. [address] Branch albuterol 2022-0 Yes 1{ampul Use 1 Univ ers 1.25 mg/3 2-21 e} Ampule as ity o f mL 08:34: directed [place] nebulizer 43 every 6 Medical solution (six) Branch hours as needed for Wheezing. ALPRAZolam 2022-0 Yes 1mg Take 1 mg Un lala 1 mg tablet 2-21 by mouth 3 it y of 08:34: (three) [place] [address] times Medical daily. Branch omeprazole 2022-0 Yes 40mg Take 40 mg U nivers 40 mg 2-21 by mouth ity of capsule 08:34: daily. [address] Branch loratadine 2022-0 Yes 10mg Take 10 mg U nivers 10 mg 2-21 by mouth ity of tablet 08:34: daily. [address] aspirin 81 2022-0 Yes 81mg Take 81 mg U nivers mg chewable 2-21 by mouth ity of tablet 08:34: daily. [address] lisinopril 2022-0 Yes Take by Univ ers 10 mg 2-21 mouth ity of tablet 08:34: daily. [address] Branch albuterol 2022-0 Yes 1{ampul Use 1 Univ ers 1.25 mg/3 2-21 e} Ampule as ity o f mL 08:34: directed [place] nebulizer 43 every 6 Medical solution (six) Branch hours as needed for Wheezing. ALPRAZolam 2022-0 Yes 1mg Take 1 mg Un lala 1 mg tablet 2-21 by mouth 3 it y of 08:34: (three) [place] [address] times Medical daily. Branch omeprazole 2022-0 Yes 40mg Take 40 mg U nivers 40 mg 2-21 by mouth ity of capsule 08:34: daily. [address] Branch loratadine 2022-0 Yes 10mg Take 10 mg U nivers 10 mg 2-21 by mouth ity of tablet 08:34: daily. [address] Branch aspirin 81 2022-0 Yes 81mg Take 81 mg U nivers mg chewable 2-21 by mouth ity of tablet 08:34: daily. [address] Branch lisinopril 2022-0 Yes Take by Univ ers 10 mg 2-21 mouth ity of tablet 08:34: daily. [address] Branch albuterol 2022-0 Yes 1{ampul Use 1 Univ ers 1.25 mg/3 2-21 e} Ampule as ity o f mL 08:34: directed [place] nebulizer 43 every 6 Medical solution (six) Branch hours as needed for Wheezing. ALPRAZolam 2022-0 Yes 1mg Take 1 mg Un lala 1 mg tablet 2-21 by mouth 3 it y of 08:34: (three) [place] [address] times Medical daily. Branch omeprazole 2022-0 Yes 40mg Take 40 mg U nivers 40 mg 2-21 by mouth ity of capsule 08:34: daily. [address] Branch loratadine 2022-0 Yes 10mg Take 10 mg U nivers 10 mg 2-21 by mouth ity of tablet 08:34: daily. [address] Branch aspirin 81 2022-0 Yes 81mg Take 81 mg U nivers mg chewable 2-21 by mouth ity of tablet 08:34: daily. [address] Branch lisinopril 2022-0 Yes Take by Univ ers 10 mg 2-21 mouth ity of tablet 08:34: daily. [address] Branch albuterol 2022-0 Yes 1{ampul Use 1 Univ ers 1.25 mg/3 2-21 e} Ampule as ity o f mL 08:34: directed [place] nebulizer 43 every 6 Medical solution (six) Branch hours as needed for Wheezing. ALPRAZolam 2022-0 Yes 1mg Take 1 mg Un lala 1 mg tablet 2-21 by mouth 3 it y of 08:34: (three) [place] [address] times Medical daily. Branch omeprazole 2022-0 Yes 40mg Take 40 mg U nivers 40 mg 2-21 by mouth ity of capsule 08:34: daily. [address] Branch loratadine 2022-0 Yes 10mg Take 10 mg U nivers 10 mg 2-21 by mouth ity of tablet 08:34: daily. [address] Branch aspirin 81 2022-0 Yes 81mg Take 81 mg U nivers mg chewable 2-21 by mouth ity of tablet 08:34: daily. [address] Branch lisinopril 2022-0 Yes Take by Univ ers 10 mg 2-21 mouth ity of tablet 08:34: daily. [address] Branch albuterol 2022-0 Yes 1{ampul Use 1 Univ ers 1.25 mg/3 2-21 e} Ampule as ity o f mL 08:34: directed [place] nebulizer 43 every 6 Medical solution (six) Branch hours as needed for Wheezing. ALPRAZolam 2022-0 Yes 1mg Take 1 mg Un lala 1 mg tablet 2-21 by mouth 3 it y of 08:34: (three) [place] [address] times Medical daily. Branch omeprazole 2022-0 Yes 40mg Take 40 mg U nivers 40 mg 2-21 by mouth ity of capsule 08:34: daily. [address] Branch loratadine 2022-0 Yes 10mg Take 10 mg U nivers 10 mg 2-21 by mouth ity of tablet 08:34: daily. [address] Branch aspirin 81 2022-0 Yes 81mg Take 81 mg U nivers mg chewable 2-21 by mouth ity of tablet 08:34: daily. [address] Branch lisinopril 2022-0 Yes Take by Univ ers 10 mg 2-21 mouth ity of tablet 08:34: daily. [address] Branch albuterol 2022-0 Yes 1{ampul Use 1 Univ ers 1.25 mg/3 2-21 e} Ampule as ity o f mL 08:34: directed [place] nebulizer 43 every 6 Medical solution (six) Branch hours as needed for Wheezing. ALPRAZolam 2022-0 Yes 1mg Take 1 mg Un lala 1 mg tablet 2-21 by mouth 3 it y of 08:34: (three) [place] [address] times Medical daily. Branch omeprazole 2022-0 Yes 40mg Take 40 mg U nivers 40 mg 2-21 by mouth ity of capsule 08:34: daily. [address] Branch loratadine 2022-0 Yes 10mg Take 10 mg U nivers 10 mg 2-21 by mouth ity of tablet 08:34: daily. [address] Branch aspirin 81 2022-0 Yes 81mg Take 81 mg U nivers mg chewable 2-21 by mouth ity of tablet 08:34: daily. [address] Branch lisinopril 2022-0 Yes Take by Univ ers 10 mg 2-21 mouth ity of tablet 08:34: daily. [address] Branch albuterol 2022-0 Yes 1{ampul Use 1 Univ ers 1.25 mg/3 2-21 e} Ampule as ity o f mL 08:34: directed [place] nebulizer 43 every 6 Medical solution (six) Branch hours as needed for Wheezing. ALPRAZolam 2022-0 Yes 1mg Take 1 mg Un lala 1 mg tablet 2-21 by mouth 3 it y of 08:34: (three) [place] [address] times Medical daily. Branch omeprazole 2022-0 Yes 40mg Take 40 mg U nivers 40 mg 2-21 by mouth ity of capsule 08:34: daily. [address] Branch loratadine 2022-0 Yes 10mg Take 10 mg U nivers 10 mg 2-21 by mouth ity of tablet 08:34: daily. [address] Branch aspirin 81 2022-0 Yes 81mg Take 81 mg U nivers mg chewable 2-21 by mouth ity of tablet 08:34: daily. [address] Branch lisinopril 2022-0 Yes Take by Univ ers 10 mg 2-21 mouth ity of tablet 08:34: daily. [address] Branch albuterol 2022-0 Yes 1{ampul Use 1 Univ ers 1.25 mg/3 2-21 e} Ampule as ity o f mL 08:34: directed [place] nebulizer 43 every 6 Medical solution (six) Branch hours as needed for Wheezing. ALPRAZolam 3-0 Yes 1mg Take 1 mg Un lala 1 mg tablet 2-21 by mouth 3 it y of 08:34: (three) [place] [address] times Medical daily. Branch omeprazole 3-0 Yes 40mg Take 40 mg U nivers 40 mg 2-21 by mouth ity of capsule 08:34: daily. [address] loratadine 2022-0 Yes 10mg Take 10 mg U nivers 10 mg 2-21 by mouth ity of tablet 08:34: daily. [address] aspirin 81 2022-0 Yes 81mg Take 81 mg U nivers mg chewable 2-21 by mouth ity of tablet 08:34: daily. [address] Branch lisinopril 2022-0 Yes Take by Univ ers 10 mg 2-21 mouth ity of tablet 08:34: daily. [address] albuterol 2022-0 Yes 1{ampul Use 1 Univ ers 1.25 mg/3 2-21 e} Ampule as ity o f mL 08:34: directed [place] nebulizer every 6 Medical solution (six) Branch hours as needed for Wheezing. ALPRAZolam 2022-0 Yes 1mg Take 1 mg Un lala 1 mg tablet 2-21 by mouth 3 it y of 08:34: (three) [address] Medical daily. Branch omeprazole 2022-0 Yes 40mg Take 40 mg U nivers 40 mg 2-21 by mouth ity of capsule 08:34: daily. [address] loratadine 2022-0 Yes 10mg Take 10 mg U nivers 10 mg 2-21 by mouth ity of tablet 08:34: daily. [address] aspirin 81 2022-0 Yes 81mg Take 81 mg U nivers mg chewable 2-21 by mouth ity of tablet 08:34: daily. [address] Branch lisinopril 2022-0 Yes Take by Univ ers 10 mg 2-21 mouth ity of tablet 08:34: daily. [address] Branch albuterol 3-0 Yes 1{ampul Use 1 Univ ers 1.25 mg/3 2-21 e} Ampule as ity o f mL 08:34: directed [place] nebulizer 43 every 6 Medical solution (six) Branch hours as needed for Wheezing. ALPRAZolam 2023-0 Yes 1mg Take 1 mg Un lala 1 mg tablet 2-21 by mouth 3 it y of 08:34: (three) [place] [address] times Medical daily. Branch omeprazole 2022-0 Yes 40mg Take 40 mg U nivers 40 mg 2-21 by mouth ity of capsule 08:34: daily. [address] loratadine 2022-0 Yes 10mg Take 10 mg U nivers 10 mg 2-21 by mouth ity of tablet 08:34: daily. [address] aspirin 81 2022-0 Yes 81mg Take 81 mg U nivers mg chewable 2-21 by mouth ity of tablet 08:34: daily. [address] Branch lisinopril 2022-0 Yes Take by Univ ers 10 mg 2-21 mouth ity of tablet 08:34: daily. [address] albuterol 2022-0 Yes 1{ampul Use 1 Univ ers 1.25 mg/3 2-21 e} Ampule as ity o f mL 08:34: directed [place] nebulizer every 6 Medical solution (six) Branch hours as needed for Wheezing. ALPRAZolam 2022-0 Yes 1mg Take 1 mg Un lala 1 mg tablet 2-21 by mouth 3 it y of 08:34: (three) [address] Medical daily. Branch omeprazole 2022-0 Yes 40mg Take 40 mg U nivers 40 mg 2-21 by mouth ity of capsule 08:34: daily. [address] loratadine 2022-0 Yes 10mg Take 10 mg U nivers 10 mg 2-21 by mouth ity of tablet 08:34: daily. [address] aspirin 81 2022-0 Yes 81mg Take 81 mg U nivers mg chewable 2-21 by mouth ity of tablet 08:34: daily. [address] Branch lisinopril 2022-0 Yes Take by Univ ers 10 mg 2-21 mouth ity of tablet 08:34: daily. [address] albuterol 2022-0 Yes 1{ampul Use 1 Univ ers 1.25 mg/3 2-21 e} Ampule as ity o f mL 08:34: directed [place] nebulizer 43 every 6 Medical solution (six) Branch hours as needed for Wheezing. ALPRAZolam 2022-0 Yes 1mg Take 1 mg Un lala 1 mg tablet 2-21 by mouth 3 it y of 08:34: (three) [place] [address] times Medical daily. Branch omeprazole 0 Yes 40mg Take 40 mg U nivers 40 mg 2-21 by mouth ity of capsule 08:34: daily. [address] Branch loratadine 0 Yes 10mg Take 10 mg U nivers 10 mg 2-21 by mouth ity of tablet 08:34: daily. [address] aspirin 81 2022-0 Yes 81mg Take 81 mg U nivers mg chewable 2-21 by mouth ity of tablet 08:34: daily. [address] Branch lisinopril Yes Take by [facility] ers 10 mg 2-21 mouth ity of tablet 08:34: daily. [address] Branch albuterol Yes 1{ampul Use 1 Univ ers 1.25 mg/3 2-21 e} Ampule as ity o f mL 08:34: directed [place] nebulizer 43 every 6 Medical solution (six) Branch hours as needed for Wheezing. SYMBICORT Yes 1{puff} Inhale 1 U nivers 160-4.5 2-19 Puff in ity of mcg/actuati 00:00: the [place] on inhaler 00 morning. Medic al Branch SYMBICORT Yes 1{puff} Inhale 1 U nivers 160-4.5 2-19 Puff in ity of mcg/actuati 00:00: the [place] on inhaler 00 morning. Medic al Branch SYMBICORT Yes 1{puff} Inhale 1 U nivers 160-4.5 2-19 Puff in ity of mcg/actuati 00:00: the [place] on inhaler 00 morning. Medic al Branch SYMBICORT Yes 1{puff} Inhale 1 U nivers 160-4.5 2-19 Puff in ity of mcg/actuati 00:00: the [place] on inhaler 00 morning. Medic al Branch SYMBICORT Yes 1{puff} Inhale 1 U nivers 160-4.5 2-19 Puff in ity of mcg/actuati 00:00: the [place] on inhaler 00 morning. Medic al Branch [...] Puff in ity of mcg/actuati 00:00: the [place] on inhaler 00 morning. Medic al Branch SYMBICORT 2022-0 Yes 1{puff} Inhale 1 U nivers 160-4.5 2-19 Puff in ity of mcg/actuati 00:00: the [place] on inhaler 00 morning. Medic al Branch SYMBICORT 2022-0 Yes 1{puff} Inhale 1 U nivers 160-4.5 2-19 Puff in ity of mcg/actuati 00:00: the [place] on inhaler 00 morning. Medic al Branch SYMBICORT 2022-0 Yes 1{puff} Inhale 1 U nivers 160-4.5 2-19 Puff in ity of mcg/actuati 00:00: the [place] on inhaler 00 morning. Medic al Branch azithromyci 2022-0 Yes 250mg Take 1 Uni vers n 250 mg 2-17 tablet by ity of tablet 00:00: mouth in [place] 00 the Medical morning. X Branch 5 days azithromyci 3-0 Yes 250mg Take 1 Uni vers n 250 mg 2-17 tablet by ity of tablet 00:00: mouth in [place] 00 the Medical morning. X Branch 5 days azithromyci 3-0 Yes 250mg Take 1 Uni vers n 250 mg 2-17 tablet by ity of tablet 00:00: mouth in [place] 00 the Medical morning. X Branch 5 days azithromyci 2023-0 Yes 250mg Take 1 Uni vers n 250 mg 2-17 tablet by ity of tablet 00:00: mouth in [place] 00 the Medical morning. X Branch 5 days azithromyci 3-0 Yes 250mg Take 1 Uni vers n 250 mg 2-17 tablet by ity of tablet 00:00: mouth in [place] 00 the Medical morning. X Branch 5 days azithromyci 2023-0 Yes 250mg Take 1 Uni vers n 250 mg 2-17 tablet by ity of tablet 00:00: mouth in [place] 00 the Medical morning. X Branch 5 days azithromyci 2023-0 Yes 250mg Take 1 Uni vers n 250 mg 2-17 tablet by ity of tablet 00:00: mouth in [place] 00 the Medical morning. X Branch 5 days azithromyci 2023-0 Yes 250mg Take 1 Uni vers n 250 mg 2-17 tablet by ity of tablet 00:00: mouth in [place] 00 the Medical morning. X Branch 5 days azithromyci 2023-0 Yes 250mg Take 1 Uni vers n 250 mg 2-17 tablet by ity of tablet 00:00: mouth in [place] 00 the Medical morning. X Branch 5 days azithromyci 2023-0 Yes 250mg Take 1 Uni vers n 250 mg 2-17 tablet by ity of tablet 00:00: mouth in [place] 00 the Medical morning. X Branch 5 days azithromyci 2023-0 2023- No 250mg Take 1 Un lala n 250 mg 2-17 05-01 tablet by ity o f tablet 00:00: 00:00 mouth in [place] 00 :00 the Medical morning. X Branch 5 days azithromyci 2023-0 2023- No 250mg Take 1 Un lala n 250 mg 2-17 05-01 tablet by ity o f tablet 00:00: 00:00 mouth in [place] 00 :00 the Medical morning. X Branch 5 days celecoxib 2023-0 Yes TAKE ONE Univ ers 100 mg 1-19 (1) ity of capsule 00:00: [place] BY MOUTH Medical TWICE A Branch DAY WITH FOOD. gabapentin 2023-0 Yes 600mg Take 600 Un lala 600 mg 1-19 mg by ity of tablet 00:00: mouth 4 [place] 00 (four) Medical times Branch daily. celecoxib [...] mg by ity of tablet 00:00: mouth (chi [facility]) Medical times Branch daily. celecoxib 2023-0 Yes [...] tablet by ity of tablet 00:00: mouth [place] (four) Medical times Branch daily. gabapentin 2023-0 [...] tablet by ity of tablet 00:00: mouth [place] (four) Medical times Branch daily. gabapentin 2023-0 [...] Medical TWICE [facility] Branch [facility]{appli Apply 1 Univers ne 0.5 % 1-14 cator} Applicator ity of cream 00:00: to area(s) [place] 00 as needed. Medical Branch [facility] Yes 1{appli Apply 1 Univers ne 0.5 % 1-14 cator} Applicator ity of cream 00:00: to area(s) [place] 00 as needed. Medical Branch [facility] Yes 1{appli Apply 1 Univers ne 0.5 % 1-14 cator} Applicator ity of cream 00:00: to area(s) [place] 00 as needed. Medical Branch [facility] Yes 1{appli Apply 1 Univers ne 0.5 % 1-14 cator} Applicator ity of cream 00:00: to area(s) [place] 00 as needed. Medical Branch [facility] Yes 1{appli Apply 1 Univers ne 0.5 % 1-14 cator} Applicator ity of cream 00:00: to area(s) [place] 00 as needed. Medical Branch [facility] Yes 1{appli Apply 1 Univers ne 0.5 % 1-14 cator} Applicator ity of cream 00:00: to area(s) [place] 00 as needed. Medical Branch [facility] Yes 1{appli Apply 1 Univers ne 0.5 % 1-14 cator} Applicator ity of cream 00:00: to area(s) [place] 00 as needed. Medical Branch [facility] Yes 1{appli Apply 1 Univers ne 0.5 % 1-14 cator} Applicator ity of cream 00:00: to area(s) [place] 00 as needed. Medical Branch [facility] Yes 1{appli Apply 1 Univers ne 0.5 % 03-16 cator} Applicator ity of cream 00:00: to area(s) [place] 00 as needed. Medical Branch [facility] Yes 1{appli Apply 1 [facility] ne 0.5 % 14 cator} Applicator ity of cream 00:00: to area(s) [place] 00 as needed. [facility] 2022- No 1{appli Apply 1 [facility] ne 0.5 % 03-16 cator} Applicator it y of cream 00:00: 00:00 to area(s) [place] 00 :[address] [facility] 2022- No 1{appli Apply 1 [facility] ne 0.5 % 03-16 cator} Applicator it y of cream 00:00: 00:00 to area(s) [place] 00 :00 as needed. Medical Branch DICLOFENAC 2021-0 Yes [id number] TAKE 1 [facility] 75 mg EC 7-12 9109 TABLET BY ity of tablet 00:00: MOUTH [place] 00 TWICE A Medical DAY WITH Branch MEALS DICLOFENAC 2022-0 Yes [id number] TAKE 1 [facility] 75 mg EC 7-12 9109 TABLET BY ity of tablet 00:00: MOUTH [place] 00 TWICE A Medical DAY WITH Branch MEALS DICLOFENAC 2022-0 Yes [id number] TAKE 1 [facility] 75 mg EC 7-12 9109 TABLET BY ity of tablet 00:00: MOUTH [place] 00 TWICE A Medical DAY WITH Branch MEALS DICLOFENAC 2022-0 Yes [id number] TAKE 1 [facility] 75 mg EC 7-12 9109 TABLET BY ity of tablet 00:00: MOUTH [place] 00 TWICE A Medical DAY WITH Branch MEALS DICLOFENAC 2022-0 Yes [id number] TAKE 1 [facility] 75 mg EC 7-12 9109 TABLET BY ity of tablet 00:00: MOUTH [place] 00 TWICE A Medical DAY WITH Branch MEALS DICLOFENAC 2022-0 Yes [id number] TAKE 1 [facility] 75 mg EC 7-12 9109 TABLET BY ity of tablet 00:00: MOUTH [place] 00 TWICE A Medical DAY WITH Branch MEALS DICLOFENAC 2022-0 Yes [id number] TAKE 1 [facility] 75 mg EC 7-12 9109 TABLET BY ity of tablet 00:00: MOUTH [place] 00 TWICE A Medical DAY WITH Branch MEALS DICLOFENAC 2022-0 Yes [id number] TAKE 1 [facility] 75 mg EC 7-12 9109 TABLET BY ity of tablet 00:00: MOUTH [place] 00 TWICE A Medical DAY WITH Branch MEALS DICLOFENAC 2022-0 Yes [id number] TAKE 1 [facility] 75 mg EC 7-12 9109 TABLET BY ity of tablet 00:00: MOUTH [place] 00 TWICE A Medical DAY WITH Branch MEALS DICLOFENAC 2022-0 Yes [id number] TAKE 1 [facility] 75 mg EC 7-12 9109 TABLET BY ity of tablet 00:00: MOUTH [place] 00 TWICE A Medical DAY WITH Branch MEALS DICLOFENAC 2022-0 Yes [id number] TAKE 1 [facility] 75 mg EC 7-12 9109 TABLET BY ity of tablet 00:00: MOUTH [place] 00 TWICE A Medical DAY WITH Branch MEALS DICLOFENAC 2022-0 Yes [id number] TAKE 1 [facility] 75 mg EC 7-12 9109 TABLET BY ity of tablet 00:00: MOUTH [place] 00 TWICE A Medical DAY WITH Branch MEALS DICLOFENAC 2022-0 Yes [id number] TAKE 1 [facility] 75 mg EC 7-12 9109 TABLET BY ity of tablet 00:00: MOUTH [place] 00 TWICE A Medical DAY WITH Branch MEALS DICLOFENAC 2022-0 Yes [id number] TAKE 1 [facility] 75 mg EC 7-12 9109 TABLET BY ity of tablet 00:00: MOUTH [place] 00 TWICE A Medical DAY WITH Branch MEALS DICLOFENAC 2022-0 Yes [id number] TAKE 1 [facility] 75 mg EC 7-12 9109 TABLET BY ity of tablet 00:00: MOUTH [place] 00 TWICE A Medical DAY WITH Branch MEALS DICLOFENAC 2022-0 Yes [id number] TAKE 1 [facility] 75 mg EC 7-12 9109 TABLET BY ity of tablet 00:00: MOUTH [place] 00 TWICE A Medical DAY WITH Branch MEALS DICLOFENAC 2022-0 2023- No [id number] TAKE 1 [facility] 75 mg EC 7-12 03-08 9109 TABLET BY ity o f tablet 00:00: 00:00 MOUTH [place] 00 :00 TWICE A Medical DAY WITH Branch MEALS diclofenac 2022-0 Yes [id number] 75mg Take 1 [facility] 75 mg EC 5-23 9109 tablet by ity of tablet 00:00: mouth 2 [place] 00 (two) Medical times Branch daily with meals. diclofenac 2022-0 2022- No [id number] 75mg Take 1 [facility] 75 mg EC 5-23 07-12 9109 tablet by ity o f tablet 00:00: 00:00 mouth 2 [place] 00 :00 (two) Medical times Branch daily with meals. aspirin 81 0 Yes 81mg Take 81 mg U nivers mg chewable 3-10 by mouth ity of tablet 15:33: daily. [address] Branch lisinopril 0 Yes Take by Univ ers 10 mg 3-10 mouth ity of tablet 15:33: daily. [address] Branch albuterol 0 Yes 1{ampul Use 1 Univ ers 1.25 mg/3 3-10 e} Ampule as ity o f mL 15:33: directed [place] nebulizer every 6 Medical solution (six) Branch hours as needed for Wheezing. ALPRAZolam 0 Yes 1mg Take 1 mg Un lala (XANAX) 1 3-10 by mouth 3 ity of mg tablet 15:33: (three) [place] [address] times Medical daily. Branch omeprazole 0 Yes 40mg Take 40 mg U nivers 40 mg 3-10 by mouth ity of capsule 15:33: daily. [address] Branch loratadine 0 Yes 10mg Take 10 mg U nivers 10 mg 3-10 by mouth ity of tablet 15:33: daily. [address] aspirin 81 0 Yes 81mg Take 81 mg U nivers mg chewable 3-10 by mouth ity of tablet 15:33: daily. [address] Branch lisinopril 0 Yes Take by Univ ers 10 mg 3-10 mouth ity of tablet 15:33: daily. [address] albuterol 0 Yes 1{ampul Use 1 Univ ers 1.25 mg/3 3-10 e} Ampule as ity o f mL 15:33: directed [place] nebulizer every 6 Medical solution (six) Branch hours as needed for Wheezing. ALPRAZolam 0 Yes 1mg Take 1 mg Un [facility] (XANAX) 1 3-10 by mouth 3 ity of mg tablet 15:33: (three) [place] [address] times Medical daily. Branch omeprazole 0 Yes 40mg Take 40 mg U nivers 40 mg 3-10 by mouth ity of capsule 15:33: daily. [address] Branch loratadine 0 Yes 10mg Take 10 mg U nivers 10 mg 3-10 by mouth ity of tablet 15:33: daily. [place] [address] Medical Branch aspirin 81 0 Yes 81mg Take 81 mg U nivers mg chewable 3-10 by mouth ity of tablet 15:33: daily. [address] Branch lisinopril 0 Yes Take by Univ ers 10 mg 3-10 mouth ity of tablet 15:33: daily. [address] Branch albuterol 0 Yes 1{ampul Use 1 Univ ers 1.25 mg/3 3-10 e} Ampule as ity o f mL 15:33: directed [place] nebulizer every 6 Medical solution (six) Branch hours as needed for Wheezing. ALPRAZolam 0 Yes 1mg Take 1 mg [facility] (XANAX) 1 3-10 by mouth 3 ity of mg tablet 15:33: (three) [place] [address] times Medical daily. Branch omeprazole 0 Yes 40mg Take 40 mg U nivers 40 mg 3-10 by mouth ity of capsule 15:33: daily. [address] Branch loratadine 0 Yes 10mg Take 10 mg U nivers 10 mg 3-10 by mouth ity of tablet 15:33: daily. [address] Branch aspirin 81 0 Yes 81mg Take 81 mg U nivers mg chewable 3-10 by mouth ity of tablet 15:33: daily. [address] Branch lisinopril 0 Yes Take by Univ ers 10 mg 3-10 mouth ity of tablet 15:33: daily. [address] Branch albuterol 0 Yes 1{ampul Use 1 Univ ers 1.25 mg/3 3-10 e} Ampule as ity o f mL 15:33: directed [place] nebulizer every 6 Medical solution (six) Branch hours as needed for Wheezing. ALPRAZolam 0 Yes 1mg Take 1 mg Un [facility] (XANAX) 1 3-10 by mouth 3 ity of mg tablet 15:33: (three) [place] [address] times Medical daily. Branch omeprazole 0 Yes 40mg Take 40 mg U nivers 40 mg 3-10 by mouth ity of capsule 15:33: daily. [address] Branch loratadine 0 Yes 10mg Take 10 mg U nivers 10 mg 3-10 by mouth ity of tablet 15:33: daily. [address] Branch aspirin 81 0 Yes 81mg Take 81 mg U nivers mg chewable 3-10 by mouth ity of tablet 15:33: daily. [address] Branch lisinopril 0 Yes Take by Univ ers 10 mg 3-10 mouth ity of tablet 15:33: daily. [address] Branch albuterol 0 Yes 1{ampul Use 1 Univ ers 1.25 mg/3 3-10 e} Ampule as ity o f mL 15:33: directed [place] nebulizer every 6 Medical solution (six) Branch hours as needed for Wheezing. ALPRAZolam 0 Yes 1mg Take 1 mg [facility] (XANAX) 1 3-10 by mouth 3 ity of mg tablet 15:33: (three) [place] [address] times Medical daily. Branch omeprazole 0 Yes 40mg Take 40 mg U nivers 40 mg 3-10 by mouth ity of capsule 15:33: daily. [address] Branch loratadine 0 Yes 10mg Take 10 mg U nivers 10 mg 3-10 by mouth ity of tablet 15:33: daily. [address] Branch aspirin 81 0 Yes 81mg Take 81 mg U nivers mg chewable 3-10 by mouth ity of tablet 15:33: daily. [address] Branch lisinopril 0 Yes Take by Univ ers 10 mg 3-10 mouth ity of tablet 15:33: daily. [address] Branch albuterol 0 Yes 1{ampul Use 1 Univ ers 1.25 mg/3 3-10 e} Ampule as ity o f mL 15:33: directed [place] nebulizer every 6 Medical solution (six) Branch hours as needed for Wheezing. ALPRAZolam 0 Yes 1mg Take 1 mg [facility] (XANAX) 1 3-10 by mouth 3 ity of mg tablet 15:33: (three) [place] [address] times Medical daily. Branch omeprazole 0 Yes 40mg Take 40 mg U nivers 40 mg 3-10 by mouth ity of capsule 15:33: daily. [address] Branch loratadine 0 Yes 10mg Take 10 mg U nivers 10 mg 3-10 by mouth ity of tablet 15:33: daily. [address] Branch aspirin 81 0 Yes 81mg Take 81 mg U nivers mg chewable 3-10 by mouth ity of tablet 15:33: daily. [address] Branch lisinopril 0 Yes Take by Univ ers 10 mg 3-10 mouth ity of tablet 15:33: daily. [address] Branch albuterol 0 Yes 1{ampul Use 1 Univ ers 1.25 mg/3 3-10 e} Ampule as ity o f mL 15:33: directed [place] nebulizer every 6 Medical solution (six) Branch hours as needed for Wheezing. ALPRAZolam 0 Yes 1mg Take 1 mg Un [facility] (XANAX) 1 3-10 by mouth 3 ity of mg tablet 15:33: (three) [place] [address] times Medical daily. Branch omeprazole 0 Yes 40mg Take 40 mg U nivers 40 mg 3-10 by mouth ity of capsule 15:33: daily. [address] Branch loratadine 0 Yes 10mg Take 10 mg U nivers 10 mg 3-10 by mouth ity of tablet 15:33: daily. [address] Branch aspirin 81 0 Yes 81mg Take 81 mg U nivers mg chewable 3-10 by mouth ity of tablet 15:33: daily. [address] Branch lisinopril 0 Yes Take by Univ ers 10 mg 3-10 mouth ity of tablet 15:33: daily. [address] albuterol 0 Yes 1{ampul Use 1 Univ ers 1.25 mg/3 3-10 e} Ampule as ity o f mL 15:33: directed [place] nebulizer every 6 Medical solution (six) Branch hours as needed for Wheezing. ALPRAZolam 0 Yes 1mg Take 1 mg Un [facility] (XANAX) 1 3-10 by mouth 3 ity of mg tablet 15:33: (three) [place] [address] times Medical daily. Branch omeprazole 0 Yes 40mg Take 40 mg U nivers 40 mg 3-10 by mouth ity of capsule 15:33: daily. [address] loratadine 0 Yes 10mg Take 10 mg U nivers 10 mg 3-10 by mouth ity of tablet 15:33: daily. [address] Branch aspirin 81 0 Yes 81mg Take 81 mg U nivers mg chewable 3-10 by mouth ity of tablet 15:33: daily. [address] Branch lisinopril 0 Yes Take by Univ ers 10 mg 3-10 mouth ity of tablet 15:33: daily. [address] Branch albuterol 0 Yes 1{ampul Use 1 Univ ers 1.25 mg/3 3-10 e} Ampule as ity o f mL 15:33: directed [place] nebulizer every 6 Medical solution (six) Branch hours as needed for Wheezing. ALPRAZolam 0 Yes 1mg Take 1 mg Un [facility] (XANAX) 1 3-10 by mouth 3 ity of mg tablet 15:33: (three) [place] [address] times Medical daily. Branch omeprazole 0 Yes 40mg Take 40 mg U nivers 40 mg 3-10 by mouth ity of capsule 15:33: daily. [address] loratadine 0 Yes 10mg Take 10 mg U nivers 10 mg 3-10 by mouth ity of tablet 15:33: daily. [address] aspirin 81 0 Yes 81mg Take 81 mg U nivers mg chewable 3-10 by mouth ity of tablet 15:33: daily. [address] lisinopril 0 Yes Take by Univ ers 10 mg 3-10 mouth ity of tablet 15:33: daily. [address] albuterol 0 Yes 1{ampul Use 1 Univ ers 1.25 mg/3 3-10 e} Ampule as ity o f mL 15:33: directed [place] nebulizer every 6 Medical solution (six) Branch hours as needed for Wheezing. ALPRAZolam 0 Yes 1mg Take 1 mg [facility] (XANAX) 1 3-10 by mouth 3 ity of mg tablet 15:33: (three) [place] [address] times Medical daily. Branch omeprazole 0 Yes 40mg Take 40 mg U nivers 40 mg 3-10 by mouth ity of capsule 15:33: daily. [address] loratadine 0 Yes 10mg Take 10 mg U nivers 10 mg 3-10 by mouth ity of tablet 15:33: daily. [address] Branch diclofenac 2022-0 Yes 75mg Take [...] by mouth ity of tablet 14:05: daily. [address] atorvastati 2022-0 Yes 20mg Take 20 mg Univers n 20 mg 2-03 by mouth ity of tablet 14:05: daily. [address] atorvastati 2022-0 Yes 20mg Take 20 mg Univers n 20 mg 2-03 by mouth ity of tablet 14:05: daily. [address] atorvastati 2022-0 Yes 20mg Take 20 mg Univers n 20 mg 2-03 by mouth ity of tablet 14:05: daily. [address] atorvastati 2-0 Yes 20mg Take 20 mg Univers n 20 mg 2-03 by mouth ity of tablet 14:05: daily. [address] atorvastati 0 Yes 20mg Take 20 mg Univers n 20 mg 2-03 by mouth ity of tablet 14:05: daily. [address] atorvastati 0 Yes 20mg Take 20 mg Univers n 20 mg 2-03 by mouth ity of tablet 14:05: daily. [address] atorvastati 0 Yes 20mg Take 20 mg Univers n 20 mg 2-03 by mouth ity of tablet 14:05: daily. [address] atorvastati 0 Yes 20mg Take 20 mg Univers n 20 mg 2-03 by mouth ity of tablet 14:05: daily. [address] atorvastati 0 Yes 20mg Take 20 mg Univers n 20 mg 2-03 by mouth ity of tablet 14:05: daily. [address] atorvastati Yes 20mg Take 20 mg Univers n 20 mg 2-03 by mouth ity of tablet 14:05: daily. [address] atorvastati Yes 20mg Take 20 mg Univers n 20 mg 2-03 by mouth ity of tablet 14:05: daily. [address] atorvastati Yes 20mg Take 20 mg Univers n 20 mg 2-03 by mouth ity of tablet 14:05: daily. [address] traMADoL 50 2021-0 Yes [id number] 50mg [...] Pain (scale 7-10). Indication s: acute pain amLODIPine 2020-0 Yes amlodipine M ethodi (NORVASC) 3-[address] 10 mg 13:54: [facility] l albuterol 2020-0 Yes albuterol Met hodi (PROAIR 3-[address] HFA) 90 13:54: HFA 90 [facility] mcg/actuati 49 mcg/actuat l on inhaler ion aerosol inhaler aspirin 81 2020-0 Yes 81mg Chew 81 [...] mcg/actuati ion HFA on inhaler aerosol inhaler predniSONE 2020-0 Yes prednisone M [...] mg 13:54: capsule [facility] capsule 49 l atorvastati 2019-0 Yes 20mg Take 20 mg Methodi n (LIPITOR) 3-[address] 20 MG 13:54: [facility] tablet 49 l ALPRAZolam 2019-0 Yes alprazolam M ethodi (XANAX) 3-[address] 0.25 MG 13:54: tablet [facility] tablet 49 l Methylpredn 2018-03 No 1 As KEN U isolone 2-25 Directed S (Medrol 18:52: Health Dose-Pack) 00 21 Tab/Dspk TAB Methylpredn 2018-03 No 1 [place] a isolone 2-25 st (Medrol 18:52: [place] Dose-Pack) 00 LIVE 21 Tab/Dspk HCIS TAB ALPRAZolam 2018-03 Yes 1mg Take 1 mg Un lala (XANAX) 1 2-13 by mouth 3 ity of mg tablet 13:41: (three) [place] 15 times Medical daily. Branch omeprazole 2018-03 Yes 40mg Take 40 mg U nivers 40 mg 2-13 by mouth ity of capsule 13:41: daily. [place] 15 Medical Branch loratadine 2018-03 Yes 10mg Take 10 mg U nivers 10 mg 2-13 by mouth ity of tablet 13:41: daily. [address] aspirin 81 2018-03 Yes 81mg Take 81 mg U nivers mg chewable 2-13 by mouth ity of tablet 13:41: daily. [address] lisinopril 2018-03 Yes Take by Univ ers 10 mg 2-13 mouth ity of tablet 13:41: daily. [address] albuterol 2018-03 Yes 1{ampul Use 1 [...] by mouth ity of capsule 13:41: daily. [address] loratadine 2018-03 Yes 10mg Take 10 mg U nivers 10 mg 2-13 by mouth ity of tablet 13:41: daily. [address] aspirin 81 2018-03 Yes 81mg Take 81 mg U nivers mg chewable 2-13 by mouth ity of tablet 13:41: daily. [address] lisinopril 2018-03 Yes Take by Univ ers 10 mg 2-13 mouth ity of tablet 13:41: daily. [address] albuterol 2018-03 Yes 1{ampul Use 1 [...] by mouth ity of capsule 13:41: daily. [address] loratadine 2018-03 Yes 10mg Take 10 mg U nivers 10 mg 2-13 by mouth ity of tablet 13:41: daily. [address] aspirin 81 2018-03 Yes 81mg Take 81 mg U nivers mg chewable 2-13 by mouth ity of tablet 13:41: daily. [address] Branch lisinopril 2018-03 Yes Take by Univ ers 10 mg 2-13 mouth ity of tablet 13:41: daily. [address] Branch albuterol 2018-03 Yes 1{ampul Use 1 Univ ers 1.25 mg/3 2-13 e} Ampule as ity o f mL 13:41: directed [place] nebulizer 15 every 6 Medical solution (six) Branch hours as needed for Wheezing. benzonatate 2018-03 Yes [id number] 100mg Take 1 [facility] 100 mg 2-11 capsule by ity of capsule 00:00: mouth 3 [place] [address] (three) Medical times Branch daily as needed for Cough. benzonatate 2018-03 Yes [id number] 100mg Take 1 [facility] 100 mg 2-11 capsule by ity of capsule 00:00: mouth 3 [place] [address] (three) Medical times Branch daily as needed for Cough. benzonatate 2018-03 Yes [id number] 100mg Take 1 [facility] 100 mg 2-11 capsule by ity of capsule 00:00: mouth 3 [place] 00 (three) Medical times Branch daily as needed for Cough. benzonatate 2018-03 Yes [id number] 100mg Take 1 [facility] 100 mg 2-11 capsule by ity of capsule 00:00: mouth 3 [place] 00 (three) Medical times Branch daily as needed for Cough. benzonatate 2018-03 Yes [id number] 100mg Take 1 [facility] 100 mg 2-11 capsule by ity of capsule 00:00: mouth 3 [place] 00 (three) Medical times Branch daily as needed for Cough. benzonatate 2018-03 Yes [id number] 100mg Take 1 [facility] 100 mg 2-11 capsule by ity of capsule 00:00: mouth 3 [place] 00 (three) Medical times Branch daily as needed for Cough. benzonatate 2018-03 Yes [id number] 100mg Take 1 [facility] 100 mg 2-11 capsule by ity of capsule 00:00: mouth 3 [place] 00 (three) Medical times Branch daily as needed for Cough. benzonatate 2018-03 Yes [id number] 100mg Take 1 [facility] 100 mg 2-11 capsule by ity of capsule 00:00: mouth 3 (three) Medical times Branch daily as needed for Cough. benzonatate 2018-03 Yes [id number] 100mg Take 1 [facility] 100 mg 2-11 capsule by ity of capsule 00:00: mouth 3 (three) Medical times Branch daily as needed for Cough. benzonatate 2018-03 Yes [id number] 100mg Take 1 [facility] 100 mg 2-11 capsule by ity of capsule 00:00: mouth 3 (three) Medical times Branch daily as needed for Cough. benzonatate 2018-03 Yes [id number] 100mg Take 1 [facility] 100 mg 2-11 capsule by ity of capsule 00:00: mouth 3 (three) Medical times Branch daily as needed for Cough. benzonatate 2018-03 Yes [id number] 100mg Take 1 [facility] 100 mg 2-11 capsule by ity of capsule 00:00: mouth 3 (three) Medical times Branch daily as needed for Cough. benzonatate 2018-03 Yes [id number] 100mg Take 1 [facility] 100 mg 2-11 capsule by ity of capsule 00:00: mouth (three) Medical times Branch daily as needed for Cough. benzonatate 2018-03 Yes [id number] 100mg Take 1 [facility] 100 mg 2-11 capsule by ity of capsule 00:00: mouth (three) Medical times Branch daily as needed for Cough. benzonatate 2018-03 Yes [id number] 100mg Take 1 [facility] 100 mg 2-11 capsule by ity of capsule 00:00: mouth 3 (three) Medical times Branch daily as needed for Cough. benzonatate 2018-03 Yes [id number] 100mg Take 1 [facility] 100 mg 2-11 capsule by ity of capsule 00:00: mouth 3 (three) Medical times Branch daily as needed for Cough. benzonatate 2018-03 Yes [id number] 100mg Take 1 [facility] 100 mg 2-11 capsule by ity of capsule 00:00: mouth 3 (three) Medical times Branch daily as needed for Cough. benzonatate 2018-03 Yes [id number] 100mg Take 1 [facility] 100 mg 2-11 capsule by ity of capsule 00:00: mouth 3 (three) Medical times Branch daily as needed for Cough. benzonatate 2018-03 Yes [id number] 100mg Take 1 [facility] 100 mg 2-11 capsule by ity of capsule 00:00: mouth 3 (three) Medical times Branch daily as needed for Cough. benzonatate 2018-03 Yes [id number] 100mg Take 1 [facility] 100 mg 2-11 capsule by ity of capsule 00:00: mouth 3 (three) Medical times Branch daily as needed for Cough. benzonatate 2018-03 Yes [id number] 100mg Take 1 [facility] 100 mg 2-11 capsule by ity of capsule 00:00: mouth 3 (three) Medical times Branch daily as needed for Cough. benzonatate 2018-03 Yes [id number] 100mg Take 1 [facility] 100 mg 2-11 capsule by ity of capsule 00:00: mouth 3 (three) Medical times Branch daily as needed for Cough. benzonatate 2018-03 Yes [id number] 100mg Take 1 [facility] 100 mg 2-11 capsule by ity of capsule 00:00: mouth 3 (three) Medical times Branch daily as needed for Cough. benzonatate 2018-03 Yes [id number] 100mg Take 1 [facility] 100 mg 2-11 capsule by ity of capsule 00:00: mouth 3 (three) Medical times Branch daily as needed for Cough. benzonatate 2018-03 Yes [id number] 100mg Take 1 [facility] 100 mg 2-11 capsule by ity of capsule 00:00: mouth 3 (three) Medical times Branch daily as needed for Cough. benzonatate 2018-03 Yes [id number] 100mg Take 1 [facility] 100 mg 2-11 capsule by ity of capsule 00:00: mouth 3 (three) Medical times Branch daily as needed for Cough. benzonatate 2018-03 Yes [id number] 100mg Take 1 [facility] 100 mg 2-11 capsule by ity of capsule 00:00: mouth 3 (three) Medical times Branch daily as needed for Cough. benzonatate 2018-03 Yes [id number] 100mg Take 1 [facility] 100 mg 2-11 capsule by ity of capsule 00:00: mouth 3 00 (three) Medical times Branch daily as needed for Cough. benzonatate 2018-03 Yes [id number] 100mg Take 1 [facility] 100 mg 2-11 capsule by ity of capsule 00:00: mouth 3 (three) Medical times Branch daily as needed for Cough. benzonatate 2018-03 Yes [id number] 100mg Take 1 [facility] 100 mg 2-11 capsule by ity of capsule 00:00: mouth 3 [place] 00 (three) Medical times Branch daily as needed for Cough. benzonatate 2018-03 Yes [id number] 100mg Take 1 [facility] 100 mg 2-11 capsule by ity of capsule 00:00: mouth 3 [place] 00 (three) Medical times Branch daily as needed for Cough. benzonatate 2018-03 Yes [id number] 100mg Take 1 [facility] 100 mg 2-11 capsule by ity of capsule 00:00: mouth 3 [place] 00 (three) Medical times Branch daily as needed for Cough. benzonatate 2018-03 Yes [id number] 100mg Take 1 [facility] 100 mg 2-11 capsule by ity of capsule 00:00: mouth 3 [place] 00 (three) Medical times Branch daily as needed for Cough. benzonatate 2018-03 Yes [id number] 100mg Take 1 [facility] 100 mg 2-11 capsule by ity of capsule 00:00: mouth 3 [place] 00 (three) Medical times Branch daily as needed for Cough. benzonatate 2018-03 Yes [id number] 100mg Take 1 [facility] 100 mg 2-11 capsule by ity of capsule 00:00: mouth 3 00 (three) Medical times Branch daily as needed for Cough. benzonatate 2018-03 Yes [id number] 100mg Take 1 [facility] 100 mg 2-11 capsule by ity of capsule 00:00: mouth 3 00 (three) Medical times Branch daily as needed for Cough. benzonatate 2018-03 Yes [id number] 100mg Take 1 [facility] 100 mg 2-11 capsule by ity of capsule 00:00: mouth 3 00 (three) Medical times Branch daily as needed for Cough. benzonatate 2018-03 Yes [id number] 100mg Take 1 [facility] 100 mg 2-11 capsule by ity of capsule 00:00: mouth 3 [place] 00 (three) Medical times Branch daily as needed for Cough. benzonatate 2018-03 Yes [id number] 100mg Take 1 [facility] 100 mg 2-11 capsule by ity of capsule 00:00: mouth 3 [place] 00 (three) Medical times Branch daily as needed for Cough. benzonatate 2018-03 Yes [id number] 100mg Take 1 [facility] 100 mg 2-11 capsule by ity of capsule 00:00: mouth 3 [place] 00 (three) Medical times Branch daily as needed for Cough. benzonatate 2018-03- No [id number] 100mg Take 1 [facility] 100 mg 04-13 capsule by ity of capsule 00:00: 00:00 mouth 3 [place] 00 :00 (three) Medical times Branch daily as needed for Cough. benzonatate 2018-03- No [id number] 100mg Take 1 [facility] 100 mg 2-01 05- capsule by ity of capsule 00:00: 00:00 [...] hot shower 1 hour before bedtime sod 2016-0 Yes 1{bottl Use 1 Univers chlor-bicar 3-18 [...] Immunizations Ordered Filled Immunization Date Status Comments [facility] e Immunization Name Name SARS-COV-2 COVID-19 2020-10-15 Completed Unive rsity of PFIZER VACCINE 00:00:00 [facility] SARS-COV-2 COVID-19 2020-10-15 Completed Unive rsity of PFIZER VACCINE 00:00:00 [facility] SARS-COV-2 COVID-19 2020-10-15 Completed Unive rsity of PFIZER VACCINE 00:00:00 [facility] SARS-COV-2 COVID-19 2020-10-15 Completed Unive rsity of PFIZER VACCINE 00:00:00 [facility] Branch SARS-COV-2 COVID-19 2020-10-15 Completed Unive rsity of PFIZER VACCINE 00:00:00 [facility] Branch SARS-COV-2 COVID-19 2020-10-15 Completed Unive rsity of PFIZER VACCINE 00:00:00 [facility] Branch SARS-COV-2 COVID-19 2020-10-15 Completed Unive rsity of PFIZER VACCINE 00:00:00 [facility] Branch SARS-COV-2 COVID-19 2020-10-15 Completed Unive rsity of PFIZER VACCINE 00:00:00 [facility] Branch SARS-COV-2 COVID-19 2020-10-15 Completed Unive rsity of PFIZER VACCINE 00:00:00 [facility] Branch SARS-COV-2 COVID-19 2020-10-15 Completed Unive rsity of PFIZER VACCINE 00:00:00 [facility] Branch SARS-COV-2 COVID-19 2020-10-15 Completed Unive rsity of PFIZER VACCINE 00:00:00 [facility] Branch SARS-COV-2 COVID-19 2020-10-15 Completed Unive rsity of PFIZER VACCINE 00:00:00 [facility] Branch SARS-COV-2 COVID-19 2020-10-15 Completed Unive rsity of PFIZER VACCINE 00:00:00 [facility] SARS-COV-2 COVID-19 2020-10-15 Completed [facility] PFIZER VACCINE 00:00:00 [facility] SARS-COV-2 COVID-19 2020-10-15 Completed [facility] PFIZER VACCINE 00:00:00 [facility] SARS-COV-2 COVID-19 2020-10-15 Completed [facility] PFIZER VACCINE 00:00:00 [facility] SARS-COV-2 COVID-19 2020-10-15 Completed [facility] PFIZER VACCINE 00:00:00 [facility] SARS-COV-2 COVID-19 2020-10-15 Completed [facility] PFIZER VACCINE 00:00:00 [facility] SARS-COV-2 COVID-19 2020-10-15 Completed [facility] PFIZER VACCINE 00:00:00 [facility] SARS-COV-2 COVID-19 2020-10-15 Completed [facility] PFIZER VACCINE 00:00:00 [facility] SARS-COV-2 COVID-19 2020-10-15 Completed [facility] PFIZER VACCINE 00:00:00 [facility] SARS-COV-2 COVID-19 2020-10-15 Completed [facility] PFIZER VACCINE 00:00:00 [facility] SARS-COV-2 COVID-19 2020-10-15 Completed [facility] PFIZER VACCINE 00:00:00 [facility] SARS-COV-2 COVID-19 2020-10-15 Completed [facility] PFIZER VACCINE 00:00:00 [facility] SARS-COV-2 COVID-19 2020-10-15 Completed [facility] PFIZER VACCINE 00:00:00 [facility] SARS-COV-2 COVID-19 2020-10-15 Completed [facility] PFIZER VACCINE 00:00:00 [facility] SARS-COV-2 COVID-19 2020-10-15 Completed [facility] PFIZER VACCINE 00:00:00 [facility] SARS-COV-2 COVID-19 2020-10-15 Completed [facility] PFIZER VACCINE 00:00:00 [facility] SARS-COV-2 COVID-19 2020-10-15 Completed [facility] PFIZER VACCINE 00:00:00 [facility] SARS-COV-2 COVID-19 2020-10-15 Completed [facility] PFIZER VACCINE 00:00:00 [facility] SARS-COV-2 COVID-19 2020-10-15 Completed [facility] PFIZER VACCINE 00:00:00 [facility] SARS-COV-2 COVID-19 2020-10-15 Completed [facility] PFIZER VACCINE 00:00:00 [facility] SARS-COV-2 COVID-19 2020-10-15 Completed [facility] PFIZER VACCINE 00:00:00 [facility] SARS-COV-2 COVID-19 2020-10-15 Completed [facility] PFIZER VACCINE 00:00:00 [facility] SARS-COV-2 COVID-19 2020-10-15 Completed [facility] PFIZER VACCINE 00:00:00 [facility] SARS-COV-2 COVID-19 2020-10-15 Completed [facility] PFIZER VACCINE 00:00:00 [facility] SARS-COV-2 COVID-19 2020-10-15 Completed [facility] PFIZER VACCINE 00:00:00 [facility] SARS-COV-2 COVID-19 2020-10-15 Completed [facility] PFIZER VACCINE 00:00:00 [facility] SARS-COV-2 COVID-19 2020-10-15 Completed [facility] PFIZER VACCINE 00:00:00 [facility] SARS-COV-2 COVID-19 2020-10-15 Completed [facility] PFIZER VACCINE 00:00:00 [facility] SARS-COV-2 COVID-19 2020-10-15 Completed [facility] PFIZER VACCINE 00:00:00 [facility] SARS-COV-2 COVID-19 2020-10-15 Completed [facility] PFIZER VACCINE 00:00:00 [facility] SARS-COV-2 COVID-19 2020-10-15 Completed [facility] PFIZER VACCINE 00:00:00 [facility] SARS-COV-2 COVID-19 2020-10-15 Completed [facility] PFIZER VACCINE 00:00:00 [facility] SARS-COV-2 COVID-19 2020-10-15 Completed [facility] PFIZER VACCINE 00:00:00 [facility] SARS-COV-2 COVID-19 2020-10-15 Completed [facility] PFIZER VACCINE 00:00:00 [facility] SARS-COV-2 COVID-19 2020-10-15 Completed [facility] PFIZER VACCINE 00:00:00 [facility] SARS-COV-2 COVID-19 2020-10-15 Completed [facility] PFIZER VACCINE 00:00:00 [facility] SARS-COV-2 COVID-19 2020-10-15 Completed [facility] PFIZER VACCINE 00:00:00 [facility] SARS-COV-2 COVID-19 2020-10-15 Completed [facility] PFIZER VACCINE 00:00:00 [facility] SARS-COV-2 COVID-19 2020-10-15 Completed [facility] PFIZER VACCINE 00:00:00 [facility] SARS-COV-2 COVID-19 2020-10-15 Completed [facility] PFIZER VACCINE 00:00:00 [facility] SARS-COV-2 COVID-19 2020-10-15 Completed [facility] PFIZER VACCINE 00:00:00 [facility] SARS-COV-2 COVID-19 2020-10-15 Completed [facility] PFIZER VACCINE 00:00:00 [facility] SARS-COV-2 COVID-19 2020-10-15 Completed [facility] PFIZER VACCINE 00:00:00 [facility] SARS-COV-2 COVID-19 2020-10-15 Completed [facility] PFIZER VACCINE 00:00:00 [facility] SARS-COV-2 COVID-19 2020-10-15 Completed [facility] PFIZER VACCINE 00:00:00 [facility] SARS-COV-2 COVID-19 2020-10-15 Completed [facility] PFIZER VACCINE 00:00:00 [facility] SARS-COV-2 COVID-19 2020-10-15 Completed [facility] PFIZER VACCINE 00:00:00 [facility] SARS-COV-2 COVID-19 2020-10-15 Completed [facility] PFIZER VACCINE 00:00:00 [facility] SARS-COV-2 COVID-19 2020-10-15 Completed [facility] PFIZER VACCINE 00:00:00 [facility] SARS-COV-2 COVID-19 2020-10-15 Completed [facility] PFIZER VACCINE 00:00:00 [facility] SARS-COV-2 COVID-19 2020-10-15 Completed [facility] PFIZER VACCINE 00:00:00 [facility] SARS-COV-2 COVID-19 2020-10-15 Completed [facility] PFIZER VACCINE 00:00:00 [facility] SARS-COV-2 COVID-19 2020-10-15 Completed [facility] PFIZER VACCINE 00:00:00 [facility] SARS-COV-2 COVID-19 2020-10-15 Completed [facility] PFIZER VACCINE 00:00:00 [facility] SARS-COV-2 COVID-19 2020-10-15 Completed [facility] PFIZER VACCINE 00:00:00 [facility] SARS-COV-2 COVID-19 2020-10-15 Completed [facility] PFIZER VACCINE 00:00:00 [facility] SARS-COV-2 COVID-19 2020-10-15 Completed [facility] PFIZER VACCINE 00:00:00 [facility] SARS-COV-2 COVID-19 2020-10-15 Completed [facility] PFIZER VACCINE 00:00:00 [facility] SARS-COV-2 COVID-19 2020-09-22 Completed [facility] PFIZER VACCINE 00:00:00 [facility] SARS-COV-2 COVID-19 2020-09-22 Completed [facility] PFIZER VACCINE 00:00:00 [facility] SARS-COV-2 COVID-19 2020-09-22 Completed [facility] PFIZER VACCINE 00:00:00 [facility] SARS-COV-2 COVID-19 2020-09-22 Completed [facility] PFIZER VACCINE 00:00:00 [facility] SARS-COV-2 COVID-19 2020-09-22 Completed [facility] PFIZER VACCINE 00:00:00 [facility] SARS-COV-2 COVID-19 2020-09-22 Completed [facility] PFIZER VACCINE 00:00:00 [facility] SARS-COV-2 COVID-19 2020-09-22 Completed [facility] PFIZER VACCINE 00:00:00 [facility] SARS-COV-2 COVID-19 2020-09-22 Completed [facility] PFIZER VACCINE 00:00:00 [facility] SARS-COV-2 COVID-19 2020-09-22 Completed [facility] PFIZER VACCINE 00:00:00 [facility] SARS-COV-2 COVID-19 2020-09-22 Completed [facility] PFIZER VACCINE 00:00:00 [facility] SARS-COV-2 COVID-19 2020-09-22 Completed [facility] PFIZER VACCINE 00:00:00 [facility] SARS-COV-2 COVID-19 2020-09-22 Completed [facility] PFIZER VACCINE 00:00:00 [facility] SARS-COV-2 COVID-19 2020-09-22 Completed [facility] PFIZER VACCINE 00:00:00 [facility] SARS-COV-2 COVID-19 2020-09-22 Completed [facility] PFIZER VACCINE 00:00:00 [facility] SARS-COV-2 COVID-19 2020-09-22 Completed [facility] PFIZER VACCINE 00:00:00 [facility] SARS-COV-2 COVID-19 2020-09-22 Completed [facility] PFIZER VACCINE 00:00:00 [facility] SARS-COV-2 COVID-19 2020-09-22 Completed [facility] PFIZER VACCINE 00:00:00 [facility] SARS-COV-2 COVID-19 2020-09-22 Completed [facility] PFIZER VACCINE 00:00:00 [facility] SARS-COV-2 COVID-19 2020-09-22 Completed [facility] PFIZER VACCINE 00:00:00 [facility] SARS-COV-2 COVID-19 2020-09-22 Completed [facility] PFIZER VACCINE 00:00:00 [facility] SARS-COV-2 COVID-19 2020-09-22 Completed [facility] PFIZER VACCINE 00:00:00 [facility] SARS-COV-2 COVID-19 2020-09-22 Completed [facility] PFIZER VACCINE 00:00:00 [facility] SARS-COV-2 COVID-19 2020-09-22 Completed [facility] PFIZER VACCINE 00:00:00 [facility] SARS-COV-2 COVID-19 2020-09-22 Completed [facility] PFIZER VACCINE 00:00:00 [facility] SARS-COV-2 COVID-19 2020-09-22 Completed [facility] PFIZER VACCINE 00:00:00 [facility] SARS-COV-2 COVID-19 2020-09-22 Completed [facility] PFIZER VACCINE 00:00:00 [facility] SARS-COV-2 COVID-19 2020-09-22 Completed [facility] PFIZER VACCINE 00:00:00 [facility] SARS-COV-2 COVID-19 2020-09-22 Completed [facility] PFIZER VACCINE 00:00:00 [facility] SARS-COV-2 COVID-19 2020-09-22 Completed [facility] PFIZER VACCINE 00:00:00 [facility] SARS-COV-2 COVID-19 2020-09-22 Completed [facility] PFIZER VACCINE 00:00:00 [facility] SARS-COV-2 COVID-19 2020-09-22 Completed [facility] PFIZER VACCINE 00:00:00 [facility] SARS-COV-2 COVID-19 2020-09-22 Completed [facility] PFIZER VACCINE 00:00:00 [facility] SARS-COV-2 COVID-19 2020-09-22 Completed [facility] PFIZER VACCINE 00:00:00 [facility] SARS-COV-2 COVID-19 2020-09-22 Completed [facility] PFIZER VACCINE 00:00:00 [facility] SARS-COV-2 COVID-19 2020-09-22 Completed [facility] PFIZER VACCINE 00:00:00 [facility] SARS-COV-2 COVID-19 2020-09-22 Completed [facility] PFIZER VACCINE 00:00:00 [facility] SARS-COV-2 COVID-19 2020-09-22 Completed [facility] PFIZER VACCINE 00:00:00 [facility] SARS-COV-2 COVID-19 2020-09-22 Completed [facility] PFIZER VACCINE 00:00:00 [facility] SARS-COV-2 COVID-19 2020-09-22 Completed [facility] PFIZER VACCINE 00:00:00 [facility] SARS-COV-2 COVID-19 2020-09-22 Completed [facility] PFIZER VACCINE 00:00:00 [facility] SARS-COV-2 COVID-19 2020-09-22 Completed [facility] PFIZER VACCINE 00:00:00 [facility] SARS-COV-2 COVID-19 2020-09-22 Completed [facility] PFIZER VACCINE 00:00:00 [facility] SARS-COV-2 COVID-19 2020-09-22 Completed [facility] PFIZER VACCINE 00:00:00 [facility] SARS-COV-2 COVID-19 2020-09-22 Completed [facility] PFIZER VACCINE 00:00:00 [facility] SARS-COV-2 COVID-19 2020-09-22 Completed [facility] PFIZER VACCINE 00:00:00 [facility] SARS-COV-2 COVID-19 2020-09-22 Completed [facility] PFIZER VACCINE 00:00:00 [facility] SARS-COV-2 COVID-19 2020-09-22 Completed [facility] PFIZER VACCINE 00:00:00 [facility] SARS-COV-2 COVID-19 2020-09-22 Completed [facility] PFIZER VACCINE 00:00:00 [facility] SARS-COV-2 COVID-19 2020-09-22 Completed [facility] PFIZER VACCINE 00:00:00 [facility] SARS-COV-2 COVID-19 2020-09-22 Completed [facility] PFIZER VACCINE 00:00:00 [facility] SARS-COV-2 COVID-19 2020-09-22 Completed [facility] PFIZER VACCINE 00:00:00 [facility] SARS-COV-2 COVID-19 2020-09-22 Completed [facility] PFIZER VACCINE 00:00:00 [facility] SARS-COV-2 COVID-19 2020-09-22 Completed [facility] PFIZER VACCINE 00:00:00 [facility] SARS-COV-2 COVID-19 2020-09-22 Completed [facility] PFIZER VACCINE 00:00:00 [facility] SARS-COV-2 COVID-19 2020-09-22 Completed [facility] PFIZER VACCINE 00:00:00 [facility] SARS-COV-2 COVID-19 2020-09-22 Completed [facility] PFIZER VACCINE 00:00:00 [facility] SARS-COV-2 COVID-19 2020-09-22 Completed [facility] PFIZER VACCINE 00:00:00 [facility] SARS-COV-2 COVID-19 2020-09-22 Completed [facility] PFIZER VACCINE 00:00:00 [facility] SARS-COV-2 COVID-19 2020-09-22 Completed [facility] PFIZER VACCINE 00:00:00 [facility] SARS-COV-2 COVID-19 2020-09-22 Completed [facility] PFIZER VACCINE 00:00:00 [facility] SARS-COV-2 COVID-19 2020-09-22 Completed [facility] PFIZER VACCINE 00:00:00 [facility] SARS-COV-2 COVID-19 2020-09-22 Completed [facility] PFIZER VACCINE 00:00:00 [facility] SARS-COV-2 COVID-19 2020-09-22 Completed [facility] PFIZER VACCINE 00:00:00 [facility] SARS-COV-2 COVID-19 2020-09-22 Completed [facility] PFIZER VACCINE 00:00:00 [facility] SARS-COV-2 COVID-19 2020-09-22 Completed [facility] PFIZER VACCINE 00:00:00 [facility] SARS-COV-2 COVID-19 2020-09-22 Completed [facility] PFIZER VACCINE 00:00:00 [facility] SARS-COV-2 COVID-19 2020-09-22 Completed [facility] PFIZER VACCINE 00:00:00 [facility] SARS-COV-2 COVID-19 2020-09-22 Completed [facility] PFIZER VACCINE 00:00:00 [facility] SARS-COV-2 COVID-19 2020-09-22 Completed [facility] PFIZER VACCINE 00:00:00 [facility] SARS-COV-2 COVID-19 2020-09-22 Completed [facility] PFIZER VACCINE 00:00:00 [facility] Vital Signs Vital Name Observation Time Observation Value Comments Source Body height 2022-09-10 17:59:00 157.5 cm [facility] Body weight 2022-09-10 17:59:00 81.647 kg [facility] BMI 2022-09-10 17:59:00 32.92 kg/m2 [facility] Systolic blood 2022-08-16 18:24:00 125 mm[Hg] [facility] pressure [facility] Diastolic blood 2022-08-16 18:24:00 77 mm[Hg] [facility] Heart rate 2022-08-16 18:24:00 80 /min [facility] Body temperature 2022-08-16 18:24:00 36.72 Laura [facility] Respiratory rate 2022-08-16 18:24:00 16 /min [facility] Body height 2022-08-16 18:24:00 157.5 cm [facility] Body weight 2022-08-16 18:24:00 81.647 kg [facility] BMI 2022-08-16 18:24:00 32.92 kg/m2 [facility] Oxygen saturation in 2022-08-16 18:24:00 98 /min [facility] Arterial blood by [facility] Pulse oximetry [facility] Systolic blood 2022-08-09 13:13:00 106 mm[Hg] [facility] pressure [facility] Diastolic blood 2022-08-09 13:13:00 68 mm[Hg] [facility] pressure [facility] Heart rate 2022-08-09 13:13:00 92 /min [facility] Body height 2022-08-09 13:13:00 157.5 cm [facility] Body weight 2022-08-09 13:13:00 81.647 kg [facility] BMI 2022-08-09 13:13:00 32.92 kg/m2 [facility] Systolic blood 2022-08-06 22:21:00 142 mm[Hg] [facility] Diastolic blood 2022-08-06 22:21:00 90 mm[Hg] [facility] pressure [facility] Heart rate 2022-08-06 22:21:00 87 /min [facility] Body temperature 2022-08-06 22:21:00 37 [facility] Respiratory rate 2022-08-06 22:21:00 16 /min [facility] Body weight 2022-08-06 22:21:00 81.647 kg [facility] BMI 2022-08-06 22:21:00 32.92 kg/m2 [facility] Oxygen saturation in 2022-08-06 22:21:00 98 /min [facility] blood by [facility] Systolic blood 2022-07-15 19:05:00 122 mm[Hg] [facility] pressure [facility] Diastolic blood 2022-07-15 19:05:00 75 mm[Hg] [facility] Heart rate 2022-07-15 19:05:00 76 /min [facility] Body height 2022-07-15 19:05:00 157.5 cm [facility] Body weight 2022-07-15 19:05:00 81.647 kg [facility] BMI 2022-07-15 19:05:00 32.92 kg/m2 [facility] Systolic blood 2022-07-04 15:24:00 122 mm[Hg] [facility] Diastolic blood 2022-07-04 15:24:00 84 mm[Hg] [facility] Heart rate 2022-07-04 15:24:00 84 /min [facility] Systolic blood 2022-07-04 14:26:00 109 mm[Hg] [facility] Diastolic blood 2022-07-04 14:26:00 70 mm[Hg] [facility] Heart rate 2022-07-04 14:26:00 89 /min [facility] Respiratory rate 2022-07-04 14:26:00 18 /min [facility] Body height 2022-07-04 14:26:00 157.5 cm [facility] Body weight 2022-07-04 14:26:00 81.647 kg [facility] BMI 2022-07-04 14:26:00 32.92 kg/m2 [facility] Oxygen saturation in 2022-07-04 14:26:00 100 /min [facility] Systolic blood 2022-07-02 04:00:00 124 mm[Hg] [facility] Diastolic blood 2022-07-02 04:00:00 75 mm[Hg] [facility] Heart rate 2022-07-02 04:00:00 81 /min [facility] Respiratory rate 2022-07-02 04:00:00 21 /min [facility] Oxygen saturation in 2022-07-02 04:00:00 95 /min [facility] blood by [place] [facility] Body temperature 2022-07-02 01:36:00 37.22 Laura [facility] Body height 2022-07-02 01:36:00 157.5 cm [facility] Body weight 2022-07-02 01:36:00 85.276 kg [facility] BMI 2022-07-02 01:36:00 34.39 kg/m2 [facility] Systolic blood 2022-07-01 19:25:00 127 mm[Hg] [facility] Diastolic blood 2022-07-01 19:25:00 79 mm[Hg] [facility] Respiratory rate 2022-07-01 19:25:00 18 /min [facility] Oxygen saturation in 2022-07-01 19:25:00 95 /min [facility] blood by [place] [facility] Heart rate 2022-07-01 19:20:00 75 /min [facility] Body temperature 2022-07-01 16:27:00 36.56 [facility] Body height 2022-06-17 20:00:00 157.5 cm [facility] Body weight 2022-06-17 20:00:00 79.379 kg [facility] BMI 2022-06-17 20:00:00 32.01 kg/m2 [facility] Systolic blood 2022-07-01 17:05:00 138 mm[Hg] [facility] Diastolic blood 2022-07-01 17:05:00 88 mm[Hg] [facility] Oxygen saturation in 2022-07-01 17:05:00 93 /min [facility] Arterial blood by [facility] Heart rate 2022-07-01 17:00:00 87 /min [facility] Respiratory rate 2022-07-01 17:00:00 15 /min [facility] Body temperature 2022-07-01 16:27:00 36.56 Laura [facility] Body height 2022-06-17 20:00:00 157.5 cm [facility] Body weight 2022-06-17 20:00:00 79.379 kg [facility] BMI 2022-06-17 20:00:00 32.01 kg/m2 [facility] Systolic blood 2022-06-27 13:59:00 135 mm[Hg] [facility] Diastolic blood 2022-06-27 13:59:00 79 mm[Hg] [facility] Heart rate 2022-06-27 13:59:00 80 /min [facility] Body height 2022-06-27 13:59:00 157.5 cm [facility] Body weight 2022-06-27 13:59:00 85.322 kg [facility] BMI 2022-06-27 13:59:00 34.40 kg/m2 [facility] Oxygen saturation in 2022-06-27 13:59:00 95 /min [facility] Arterial blood by [facility] P[facility] o[facility] Respiratory rate 2022-05-08 00:05:00 16 /min [facility] Oxygen saturation in 2022-05-08 00:05:00 96 /min [facility] Arterial blood by [facility] Systolic blood 2022-05-07 22:20:00 138 mm[Hg] [facility] Diastolic blood 2022-05-07 22:20:00 82 mm[Hg] [facility] Heart rate 2022-05-07 22:20:00 78 /min [facility] Body temperature 2022-05-07 22:20:00 37.06 Laura [facility] Body height 2022-05-07 22:20:00 157.5 cm [facility] Body weight 2022-05-07 22:20:00 81.647 kg [facility] BMI 2022-05-07 22:20:00 32.92 kg/m2 [facility] Body height 2022-05-02 16:21:00 157.5 cm [facility] Body weight 2022-05-02 16:21:00 82.373 kg [facility] BMI 2022-05-02 16:21:00 33.22 kg/m2 [facility] Systolic blood 2022-04-23 14:33:00 138 mm[Hg] [facility] Diastolic blood 2022-04-23 14:33:00 85 mm[Hg] [facility] Heart rate 2022-04-23 14:33:00 77 /min [facility] Respiratory rate 2022-04-23 14:33:00 18 /min [facility] Body height 2022-04-23 14:33:00 157.5 cm [facility] Body weight 2022-04-23 14:33:00 85.276 kg [facility] BMI 2022-04-23 14:33:00 34.39 kg/m2 [facility] Systolic blood 2022-04-10 20:23:00 149 mm[Hg] [facility] [facility] Diastolic blood 2022-04-10 20:23:00 86 mm[Hg] Unive rsity of pressure [facility] Heart rate 2022-04-10 20:23:00 84 /min [facility] Body height 2022-04-10 20:14:00 157.5 cm [facility] Body weight 2022-04-10 20:14:00 85.186 kg [facility] BMI 2022-04-10 20:14:00 34.35 kg/m2 [facility] Body Temperature 2019-02-24 19:15:00 98.0 [degF] [facility] Heart Rate 2019-02-24 19:15:00 94 /min [facility] Respiratory rate 2019-02-24 19:15:00 20 /min [facility] BP Systolic 2019-02-24 19:15:00 134 mm[Hg] [facility] R17 BP Diastolic 2019-02-24 19:15:00 71 mm[Hg] [facility] R17 Heart Rate 2019-02-24 18:32:00 94 /min [facility] R17 Respiratory rate 2019-02-24 18:32:00 20 /[email or web address] Systolic 2019-02-24 18:32:00 134 mm[Hg] [facility] R17 BP Diastolic 2019-02-24 18:32:00 71 mm[Hg] [facility] R17 Weight 2019-02-24 18:32:00 180 [lb_av] [facility] R17 BMI (Body Mass 2019-02-24 18:32:00 32.9 kg/m2 [facility] US Health Index) Procedures Procedure Date / Time Performing Clinician Source Performed ASSIGNMENT OF BENEFITS 2022-08-16 19:48:32 Doctor Unassigned, [facility] [place] [facility] URIC ACID 2022-08-16 19:29:00 Juan Rodas [facility] BASIC METABOLIC PANEL 2022-08-16 19:29:00 [facility] (NA, K, CL, CO2, GLUCOSE, Medica l Branch BUN, CREATININE, CA) SEDIMENTATION RATE 2022-08-16 19:29:00 Juan Rodas [facility] CBC WITH DIFF 2022-08-16 19:29:[facility]W RIGHT 2022-08-16 19:22:07 Juan Rodas [facility] CONSENT/REFUSAL FOR 2022-08-16 18:10:34 Doctor Unassigned, [facility] DIAGNOSIS AND TREATMENT [place] [facility] [place] BASIC METABOLIC PANEL 2022-08-06 22:45:00 Mely Hidalgo [facility] (NA, K, CL, CO2, GLUCOSE, Medica l Branch BUN, CREATININE, CA) SEDIMENTATION RATE 2022-08-06 22:45:00 Mely Hidalgo [facility] CBC WITH DIFF 2022-08-06 22:45:00 Mely Hidalgo [facility] CONSENT/REFUSAL FOR 2022-08-06 22:07:47 Doctor Sarmad, [facility] DIAGNOSIS AND TREATMENT [place] [facility] CBC WITH DIFF 2022-07-04 15:23:00 Daniel Bal [place] [facility] CONSENT/REFUSAL FOR 2022-07-02 01:22:31 Doctor Sarmad [facility] DIAGNOSIS AND TREATMENT [place] [facility] XR KNEE <3 VW RIGHT 2022-07-01 17:28:16 Clover Heath [facility] TOTAL KNEE ARTHROPLASTY 2022-07-01 14:03:00 [facility] 2022-07-01 12:54:00 Clover Heath [facility] URINALYSIS 2022-07-01 12:54:00 Clover Heath [facility] DSU PRE-OP 2022-07-01 05:01:00 Doctor Sarmad, [facility] [place] [facility] INSURANCE CORRESPONDENCE 2022-06-19 05:01:00 Doctor Sarmad, [facility] [place] [facility] [place] EXTERNAL PROVIDER RECORDS 2022-06-06 05:01:00 Doctor Sarmad, [facility] [place] [facility] [place] ASSIGNMENT OF BENEFITS 2022-06-05 16:10:34 [facility] [place] [facility] XR CHEST 2 VW 2022-06-03 15:31:39 Clover Heath [facility] ASSIGNMENT OF BENEFITS 2022-06-03 14:39:37 [facility] [place] [facility] INSURANCE CORRESPONDENCE 2022-05-17 05:01:00 Doctor Sarmad, [facility] [place] [facility] [place] RAPID INFLUENZA A/B 2022-05-07 22:58:00 Marylou Soria [facility] COVID-19 (ID NOW RAPID 2022-05-07 22:58:00 Marylou Soria [facility] TESTING) Medical [place] DSU PRE-OP 2022-05-06 06:01:00 Doctor Sarmad, [facility] [place] [facility] ASSIGNMENT OF BENEFITS 2022-04-10 20:09:33 [facility] [place] [facility] INSURANCE CORRESPONDENCE 2021-05-12 06:01:00 Doctor Unassigned, [facility] [place] [facility] Plan of Care Planned Activity Planned Date Details Comments Source Future Scheduled Test 2022-10-03 Screening for [facility] 12:30:30 malignant neoplasm of Hospit al colon (procedure) [code = 234615327] Future Scheduled Test 2022-10-03 Screening for [facility] dist 12:30:30 malignant neoplasm of Hospit al colon (procedure) [code = 271030449] Future Scheduled Test 2022-10-03 Screening for [facility] dist 12:30:30 malignant neoplasm of Hospit al colon (procedure) [code = 824636014] Future Scheduled Test 2022-10-03 Screening for [facility] dist 12:30:30 malignant neoplasm of Hospit al cervix (procedure) [code = 714264214] Future Scheduled Test 2022-10-03 BREAST CANCER Metho dist 12:30:30 SCREENING [code = Hospital BREAST CANCER SCREENING] Future Scheduled Test 2022-10-03 Screening for [facility] dist 12:30:30 malignant neoplasm of Hospit al colon (procedure) [code = 708638301] Future Scheduled Test 2022-10-03 Screening for [facility] dist 12:30:30 malignant neoplasm of Hospit al colon (procedure) [code = 542644980] Future Scheduled Test 2022-10-03 SHINGLES VACCINES (1 [facility] 12:30:30 of 2) [code = SHINGLES Hospi angel VACCINES (1 of 2)] Future Scheduled Test 2022-10-03 COVID-19 VACCINE (3 - [facility] 12:30:30 Pfizer series) [code = Hospi angel COVID-19 VACCINE (3 - Pfizer series)] Future Scheduled Test 2022-10-03 INFLUENZA VACCINE M ethodist 12:30:30 [code = INFLUENZA Hospital VACCINE] Future Scheduled Test 2022-10-03 Screening for Meth[facility] dist 12:30:30 malignant neoplasm of Hospit al colon (procedure) [code = 299620660] Future Scheduled Test 2022-10-03 Screening for [facility] dist 12:30:30 malignant neoplasm of Hospit al colon (procedure) [code = 133434028] Future Scheduled Test 2022-10-03 Screening for Meth[facility] dist 12:30:30 malignant neoplasm of Hospit al colon (procedure) [code = 690829355] Future Scheduled Test 2022-10-03 Screening for [facility] dist 12:30:30 malignant neoplasm of Hospit al cervix (procedure) [code = 628979251] Future Scheduled Test 2022-10-03 BREAST CANCER [facility] dist 12:30:30 SCREENING [code = Hospital BREAST CANCER SCREENING] Future Scheduled Test 2022-10-03 Screening for Metho dist 12:30:30 malignant neoplasm of Hospit al colon (procedure) [code = 588882931] Future Scheduled Test 2022-10-03 Screening for Meth[facility] dist 12:30:30 malignant neoplasm of Hospit al colon (procedure) [code = 902952052] Future Scheduled Test 2022-10-03 SHINGLES VACCINES (1 [facility] 12:30:30 of 2) [code = SHINGLES Hospi angel VACCINES (1 of 2)] Future Scheduled Test 2022-10-03 COVID-19 VACCINE (3 - [facility] 12:30:30 Pfizer series) [code = Hospi angel COVID-19 VACCINE (3 - Pfizer series)] Future Scheduled Test 2022-10-03 INFLUENZA VACCINE M ethodist 12:30:30 [code = INFLUENZA Hospital VACCINE] Future Scheduled Test 2022-07-04 Screening for [facility] dist 09:22:34 malignant neoplasm of Hospit al cervix (procedure) [code = 017429038] Future Scheduled Test 2022-07-04 BREAST CANCER Meth[facility] dist 09:22:34 SCREENING [code = Hospital BREAST CANCER SCREENING] Future Scheduled Test 2022-07-04 COLONOSCOPY SCREENING [facility] 09:22:34 [code = COLONOSCOPY Hospital SCREENING] Future Scheduled Test 2022-07-04 SHINGLES VACCINES (1 [facility] 09:22:34 of 2) [code = SHINGLES Hospi angel VACCINES (1 of 2)] Future Scheduled Test 2022-07-04 COVID-19 VACCINE (3 - [facility] 09:22:34 Booster for Pfizer Hospital series) [code = COVID-19 VACCINE (3 - Booster for Pfizer series)] Future Scheduled Test 2022-07-04 INFLUENZA VACCINE M ethodist 09:22:34 [code = INFLUENZA Hospital VACCINE] Future Scheduled Test 2022-06-06 Screening for [facility] 22:09:49 malignant neoplasm of Hospit al cervix (procedure) [code = 400403524] Future Scheduled Test 2022-06-06 BREAST CANCER Metho dist 22:09:49 SCREENING [code = Hospital BREAST CANCER SCREENING] Future Scheduled Test 2022-06-06 COLONOSCOPY SCREENING [facility] 22:09:49 [code = COLONOSCOPY Hospital SCREENING] Future Scheduled Test 2022-06-06 SHINGLES VACCINES (1 [facility] 22:09:49 of 2) [code = SHINGLES Hospi angel VACCINES (1 of 2)] Future Scheduled Test 2022-06-06 COVID-19 VACCINE (3 - [facility] 22:09:49 Booster for Pfizer Hospital series) [code = COVID-19 VACCINE (3 - Booster for Pfizer series)] Future Scheduled Test 2022-06-06 INFLUENZA VACCINE M ethodist 22:09:49 [code = INFLUENZA Hospital VACCINE] Future Scheduled Test 2022-04-16 COVID-19 VACCINE (#1) [facility] 10:44:07 [code = COVID-19 Hospital VACCINE (#1)] Future Scheduled Test 2022-04-16 Pneumococcal Vaccine: [facility] 10:44:07 Pediatrics (0 to 5 Hospital Years) and At-Risk Patients (6 to 64 Years) (1 - PCV) [code = Pneumococcal Vaccine: Pediatrics (0 to 5 Years) and At-Risk Patients (6 to 64 Years) (1 - PCV)] Future Scheduled Test 2022-04-16 Hepatitis C screening [facility] 10:44:07 (procedure) [code = Hospital 249149214] Future Scheduled Test 2022-04-16 Screening for [facility] 10:44:07 malignant neoplasm of Hospit al cervix (procedure) [code = 430375810] Future Scheduled Test 2022-04-16 BREAST CANCER Metho dist 10:44:07 SCREENING [code = Hospital BREAST CANCER SCREENING] Future Scheduled Test 2022-04-16 COLONOSCOPY SCREENING [facility] 10:44:07 [code = COLONOSCOPY Hospital SCREENING] Future Scheduled Test 2022-04-16 SHINGLES VACCINES (1 [facility] 10:44:07 of 2) [code = SHINGLES Hospi angel VACCINES (1 of 2)] Future Scheduled Test 2022-04-16 INFLUENZA VACCINE M ethodist 10:44:07 [code = INFLUENZA Hospital VACCINE] Future Scheduled Test 2022-03-28 COVID-19 VACCINE (#1) [facility] 06:17:38 [code = COVID-19 Hospital VACCINE (#1)] Future Scheduled Test 2022-03-28 Pneumococcal Vaccine: [facility] 06:17:38 Pediatrics (0 to 5 Hospital Years) and At-Risk Patients (6 to 64 Years) (1 - PCV) [code = Pneumococcal Vaccine: Pediatrics (0 to 5 Years) and At-Risk Patients (6 to 64 Years) (1 - PCV)] Future Scheduled Test 2022-03-28 Hepatitis C screening [facility] 06:17:38 (procedure) [code = Hospital 633522117] Future Scheduled Test 2022-03-28 Screening for Meth[facility] dist 06:17:38 malignant neoplasm of Hospit al cervix (procedure) [code = 264253614] Future Scheduled Test 2022-03-28 BREAST CANCER [facility] dist 06:17:38 SCREENING [code = Hospital BREAST CANCER SCREENING] Future Scheduled Test 2022-03-28 COLONOSCOPY SCREENING [facility] 06:17:38 [code = COLONOSCOPY Hospital SCREENING] Future Scheduled Test 2022-03-28 SHINGLES VACCINES (1 [facility] 06:17:38 of 2) [code = SHINGLES Hospi angel VACCINES (1 of 2)] Future Scheduled Test 2022-03-28 INFLUENZA VACCINE M ethodist 06:17:38 [code = INFLUENZA Hospital VACCINE] Future Scheduled Test 2022-02-21 COVID-19 VACCINE (#1) [facility] 20:21:57 [code = COVID-19 Hospital VACCINE (#1)] Future Scheduled Test 2022-02-21 Pneumococcal Vaccine: [facility] 20:21:57 Pediatrics (0 to 5 Hospital Years) and At-Risk Patients (6 to 64 Years) (1 - PCV) [code = Pneumococcal Vaccine: Pediatrics (0 to 5 Years) and At-Risk Patients (6 to 64 Years) (1 - PCV)] Future Scheduled Test 2022-02-21 Hepatitis C screening [facility] 20:21:57 (procedure) [code = Hospital 584001794] Future Scheduled Test 2022-02-21 Screening for Meth[facility] dist 20:21:57 malignant neoplasm of Hospit al cervix (procedure) [code = 663261389] Future Scheduled Test 2022-02-21 BREAST CANCER Meth[facility] dist 20:21:57 SCREENING [code = Hospital BREAST CANCER SCREENING] Future Scheduled Test 2022-02-21 COLONOSCOPY SCREENING [facility] 20:21:57 [code = COLONOSCOPY Hospital SCREENING] Future Scheduled Test 2022-02-21 SHINGLES VACCINES (1 [facility] 20:21:57 of 2) [code = SHINGLES Hospi angel VACCINES (1 of 2)] Future Scheduled Test 2022-02-21 INFLUENZA VACCINE M ethodist 20:21:57 [code = INFLUENZA Hospital VACCINE] Future Scheduled Test 2021-10-31 HEPATITIS B VACCINES [facility] 12:20:25 (1 of 3 - 3-dose Hospital series) [code = HEPATITIS B VACCINES (1 of 3 - 3-dose series)] Future Scheduled Test 2021-10-31 COVID-19 VACCINE (#1) [facility] 12:20:25 [code = COVID-19 Hospital VACCINE (#1)] Future Scheduled Test 2021-10-31 Pneumococcal Vaccine: [facility] 12:20:25 Pediatrics (0 to 5 Hospital Years) and At-Risk Patients (6 to 64 Years) (1 - PCV) [code = Pneumococcal Vaccine: Pediatrics (0 to 5 Years) and At-Risk Patients (6 to 64 Years) (1 - PCV)] Future Scheduled Test 2021-10-31 Hepatitis C screening [facility] 12:20:25 (procedure) [code = Hospital 032523225] Future Scheduled Test 2021-10-31 Screening for [facility] dist 12:20:25 malignant neoplasm of Hospit al cervix (procedure) [code = 509107562] Future Scheduled Test 2021-10-31 BREAST CANCER [facility] 12:20:25 SCREENING [code = Hospital BREAST CANCER SCREENING] Future Scheduled Test 2021-10-31 COLONOSCOPY SCREENING [facility] 12:20:25 [code = COLONOSCOPY Hospital SCREENING] Future Scheduled Test 2021-10-31 SHINGLES VACCINES (1 [facility] 12:20:25 of 2) [code = SHINGLES Hospi angel VACCINES (1 of 2)] Future Scheduled Test 2021-10-31 INFLUENZA VACCINE M ethodist 12:20:25 [code = INFLUENZA Hospital VACCINE] Future Scheduled Test 2021-10-25 HEPATITIS B VACCINES [facility] 09:31:21 (1 of 3 - 3-dose Hospital series) [code = HEPATITIS B VACCINES (1 of 3 - 3-dose series)] Future Scheduled Test 2021-10-25 COVID-19 VACCINE (#1) [facility] 09:31:21 [code = COVID-19 Hospital VACCINE (#1)] Future Scheduled Test 2021-10-25 Pneumococcal Vaccine: [facility] 09:31:21 Pediatrics (0 to 5 Hospital Years) and At-Risk Patients (6 to 64 Years) (1 - PCV) [code = Pneumococcal Vaccine: Pediatrics (0 to 5 Years) and At-Risk Patients (6 to 64 Years) (1 - PCV)] Future Scheduled Test 2021-10-25 Hepatitis C screening [facility] 09:31:21 (procedure) [code = Hospital 052349586] Future Scheduled Test 2021-10-25 Screening for Meth[facility] dist 09:31:21 malignant neoplasm of Hospit al cervix (procedure) [code = 708946312] Future Scheduled Test 2021-10-25 BREAST CANCER [facility] 09:31:21 SCREENING [code = Hospital BREAST CANCER SCREENING] Future Scheduled Test 2021-10-25 COLONOSCOPY SCREENING [facility] 09:31:21 [code = COLONOSCOPY Hospital SCREENING] Future Scheduled Test 2021-10-25 SHINGLES VACCINES (1 [facility] 09:31:21 of 2) [code = SHINGLES Hospi angel VACCINES (1 of 2)] Future Scheduled Test 2021-10-25 INFLUENZA VACCINE M ethodist 09:31:21 [code = INFLUENZA Hospital VACCINE] Future Scheduled Test Streptococcus pyogenes [facility] culture [code = LIVE HCIS 67066-8] Goal Patient referral [code [facility] = 0381085 ] LIVE HCIS Instructions [place] Problems LIVE HCIS Instructions [place] Problems (DC) LIVE HCIS Encounters Start End Encounter Admission Attending Care Care Encounter Source Date/Time Date/Time Type Type Clinicians Facility Department ID 2022-05-28 Outpatient Issa HEATH [facility] SOR [id number] Univers 15:05:28 [facility] 2021-04-05 Outpatient Issa HEATH [facility] SOR [id number] Univers 13:48:24 [facility] 2021-03-14 Outpatient Issa HEATH [facility] SOR [id number] Univers 11:49:06 [facility] 2020-12-30 Emergency [facility] [id number] Univers 16:14:45 [facility] 2020-12-30 Emergency [facility] [id number] Univers 05:54:41 [facility] 2022-09-10 2022-09-10 [facility] [id number] Univers 13:02:49 23:59:00 [facility] 2022-09-10 2022-09-10 [facility] 1.2.840.114 [id number] Univers 13:00:00 13:15:00 Visit [facility] 350.1.13.10 it y [facility] 4.2.7.2.686 Bill as CHRISTINA?BLEA [phone] Il inocencio[address] [facility] [facility] 2022-08-22 2022-08-22 [facility] [id number] Univers 08:30:00 08:30:00 [facility] 2022-08-16 2022-08-16 Emergency [facility] [id number] Univers 13:26:00 16:32:00 General acute hospital 2022-08-16 2022-08-16 Emergency [facility] 1.2.840.114 [id number] Univers 13:26:00 16:32:00 Juan [place] 350.1.13.10 i ty [place] 4.2.7.2.686 [facility] [id number] [address] 2022-08-16 2022-08-16 Telephone [facility] 1.2.840.114 [id number] Univers 00:00:00 00:00:00 Clover [facility] 350.1.13.10 it y of [place] 4.2.7.2.686 Bill as CHRISTINA?BLEA [phone] Il inocenciocholo [address] [facility] 2022-08-15 2022-08-15 Outpatient [facility] [id number] Univers 13:00:00 13:00:00 [facility] 2022-08-09 2022-08-09 Office [facility] [id number] Univers 08:30:00 08:30:[address] [facility] 350.1.13.10 it y of [place] 4.2.7.2.686 Bill as CHRISTINA?BLEA [id number] Il berta SHAW [address] [facility] 2022-08-09 2022-08-09 Outpatient R KUMAR [facility] [id number] Univers 08:30:00 08:24:23 CLOVER odell [facility] 2022-08-07 2022-08-07 [facility]phone [facility] 1.2.840.114 [id number] Univers 00:00:00 00:00:00 Clover Mandujano HEALTH 350.1.13.10 it y of [place] 4.2.7.2.686 Bill as CHRISTINA?BLEA [id number] Il berta SHAW [address] [place] [address] 2022-08-06 2022-08-[address] [facility] ERT [id number] Univers 17:24:00 19:24:00 CYNAVINASH odell [facility] 2022-08-06 2022-08-06 Emergency [facility] [id number] Univers 17:24:00 19:24:00 Cynise [facility] 350.1.13.10 i ty [place] 4.2.7.2.686 [place] [facility] [id number] [address] 2022-08-06 2022-08-06 Telephone [facility] 1.2.840.114 [id number] Univers 00:00:00 00:00:00 Clover Mandujano HEALTH 350.1.13.10 it y of [place] 4.2.7.2.686 Bill as CHRISTINA?BLEA [id number] Il berta SHAW [address] [facility] OFFICE [facility] 2022-07-26 2022-07-26 Telephone [facility] [id number] Univers 00:00:00 00:00:00 Daniel S HEALTH 350.1.13.10 it y of [place] 4.2.7.2.686 Bill as CHRISTINA?BLEA [phone] Il berta SHAW [address] [facility] 2022-07-25 2022-07-25 Telephone [facility] [id number] Univers 00:00:00 00:00:00 Daniel S HEALTH 350.1.13.10 it y of [place] 4.2.7.2.686 Bill as CHRISTINA?BLEA [id number] Me inocencioal COLIN [address] [facility] 2022-07-15 2022-07-15 Outpatient R MALLY [facility] [id number] Univers 14:16:48 23:59:00 [facility] 2022-07-15 2022-07-15 Office [facility] 1.2.840.114 [id number] Univers 14:30:00 14:45:00 Visit [facility] 350.1.13.10 it y of [place] 4.2.7.2.686 Bill as CHRISTINA?BLEA [id number] Me berta SHAW [address] [facility] 2022-07-11 2022-07-11 Telephone [facility] 1.2.840.114 [id number] Univers 00:00:00 00:00:00 [facility] 350.1.13.10 it y of [place] 4.2.7.2.686 Bill as HCRISTINA?BLEA [id number] Me berta SHAW [address] [facility] 2022-07-10 2022-07-10 Telephone [facility] [id number] Univers 00:00:00 00:00:00 [facility] 350.1.13.10 it y of [place] 4.2.7.2.686 Bill as CHRISTINA?BLEA [phone] Il berta SHAW [address] [facility] 2022-07-08 2022-07-08 Outpatient Issa BAL [facility] [id number] Univers 14:15:00 14:15:00 [facility] 2022-07-05 2022-07-05 Telephone [facility] [id number] Univers 00:00:00 00:00:00 [facility] HEALTH 350.1.13.10 it y of [place] 4.2.7.2.686 Bill as CHRISTINA?BLEA [phone] Il inocencioal COLIN [address] [facility] 2022-07-04 2022-07-04 [facility] [id number] Univers 09:15:00 11:49:40 DANIEL ity [facility] 2022-07-04 2022-07-04 Office [facility] 1.2.840.114 [id number] Univers 09:15:00 11:49:40 Visit Daniel De La Paz [facility] 350.1.13.10 it y of [place] 4.2.7.2.686 Bill as CHRISTINA?BLEA [id number] Il berta SHAW [address] [facility] OFFICE [facility] 2022-07-04 2022-07-04 Mental Health Professional Lab, Ang - Db [facility] 1.2.840.1 [id number] Univers 10:30:00 10:45:[address] [facility] 350.1.13.10 ity of [place] 4.2.7.2.686 Bill as CHRISTINA?BLEA [id number] Il berta SHAW [address] [facility] OFFICE [facility] 2022-07-01 2022-07-02 Emergency X [facility] ERT [id number] Univers 20:40:00 01:05:00 MARYLOU ity [facility] 2022-07-01 2022-07-02 Emergency [facility] [id number] Univers 20:40:00 01:05:00 Marylousherita LU 350.1.13.10 i ty [facility] 4.2.7.2.686 [place] [id number] [address] 2022-07-01 2022-07-01 Outpatient [facility] S[facility] [id number] Univers 07:03:00 14:55:00 CLOVER ity [facility] 2022-07-01 2022-07-01 Hospital [facility] 1.2.840.114 [id number] Univers 07:03:00 14:55:00 Encounter Clover LU 350.1.13.10 [place] 4.2.7.2.[place] [id number] [address] 2022-07-01 2022-07-01 Surgery [facility] [id number] Univers 09:50:00 12:08:00 [place] [facility] 350.1.13.10 i ty [place] 4.2.7.2.[place] [id number] [facility] [address] [place] 2022-07-01 2022-07-01 Orders Doctor LAGOS 1.2.840.114 [id number] Univers 00:00:00 00:00:00 Only Unassigned, [place] 350.1.13.10 ity of [place] [facility] 4.2.7.2.686 Bill as [id number] [facility] [address] [place] 2022-06-27 2022-06-27 Office [facility] 1.2.840.114 [id number] Univers 09:00:00 09:15:00 Visit Daniel De La Paz [facility] 350.1.13.10 it y of [facility] 4.2.7.2.686 Bill as CHRISTINA?BLEA [phone] Il inocencio[address] [facility] 2022-06-27 2022-06-27 Outpatient [facility] [id number] Univers 09:00:00 09:00:00 [facility] 2022-06-24 2022-06-24 Outpatient [facility] [id number] Univers 13:45:00 13:45:00 [facility] 2022-06-20 2022-06-20 Telephone [facility] 1.2.840.114 [id number] Univers 00:00:00 00:00:00 Clover Mandujano HEALTH 350.1.13.10 it y of [facility] 4.2.7.2.686 Bill as CHRISTINA?BLEA [id number] Il berta SHAW [address] [place] [address] [facility] 2022-06-19 2022-06-19 Telephone [facility] 1.2.840.114 [id number] Univers 00:00:00 00:00:00 Clover Mandujano HEALTH 350.1.13.10 it y of [place] 4.2.7.2.686 Bill as CHRISTINA?BLEA [phone] Il berta FALL[address] [facility] 2022-06-19 2022-06-19 Orders Doctor LAGOS 1.2.840.114 [id number] Univers 00:00:00 00:00:00 Only Unassigned, [place] 350.1.13.10 ity of [place] [facility] 4.2.7.2.686 Bill as [phone] [address] 2022-06-17 2022-06-17 Telephone Kumar [facility] 1.2.840.114 10 [id number] Univers 00:00:00 00:00:00 Clover Mandujano HEALTH 350.1.13.10 it y [facility] 4.2.7.2.686 Bill as CHRISTINA?BLEA [phone] [address] OFFICE [facility] 2022-06-13 2022-06-13 Outpatient R [facility]ALLY [facility] [id number] Univers 08:15:00 08:15:00 DANIEL odell [facility] 2022-06-06 2022-06-06 Telephone Mally [facility] 1.2.077.866 [id number] Univers 00:00:00 00:00:00 [facility] 350.1.13.10 it y of [place] 4.2.7.2.686 Bill as CHRISTINA?BLEA [phone] [address] [facility] 2022-06-06 2022-06-06 Orders Doctor LAGOS 1.2.840.114 [id number] Univers 00:00:00 00:00:00 Only Unassigned, TIN 350.1.13.10 ity of [place] [facility] 4.2.7.2.686 Bill as [phone] [facility] [address] 2022-06-05 2022-06-05 Laboratory Only, Adc Test [facility] 1.2.840. 114 [id number] Univers 09:30:00 09:45:00 Only [place] 350.1.13.10 ity of [place] 4.2.7.2.686 [place] [facility] [id number] [facility] [address] [place] 2022-06-05 2022-06-05 Outpatient R [facility] [id number] Univers 09:30:00 09:30:00 CLOVER odell [facility] 2022-06-05 2022-06-05 Orders Doctor LAGOS 1.2.840.114 [id number] Univers 00:00:00 00:00:00 Only Unassigned, TIN 350.1.13.10 ity of [place] [facility] 4.2.7.2.686 Bill as [phone] [facility] [address] 2022-06-05 2022-06-05 Telephone [facility] 1.2.840.114 10 [id number] Univers 00:00:00 00:00:00 Clover Mandujano HEALTH 350.1.13.10 it y of [facility] 4.2.7.2.686 Bill as CHRISTINA?BLEA [phone] Il dical KNEY [address] [facility] OFFICE [facility] 2022-06-03 2022-06-03 Mental Health Professional Roman, Adc Lab Main [facility] 1.2.8 40.114 [id number] Univers 09:45:00 10:00:00 Visit [place] 350.1.13.10 ity of [place] 4.2.7.2.686 [place] [facility] [phone] Il dical NAL 353 [facility] 2022-06-03 2022-06-03 [facility] [id number] Univers 09:52:23 09:52:23 CLOVER ity of [facility] 2022-06-03 2022-06-03 [facility] 1.2.840.114 [id number] Univers 09:52:23 09:52:23 Encounter Clover LU 350.1.13.10 ity of [facility] 4.2.7.2.686 [place] [phone] [facility] [address] 2022-06-03 2022-06-03 Orders Doctor YOLIS 1.2.840.114 [id number] Univers 00:00:00 00:00:00 Only Unassigned, TIN 350.1.13.10 ity of [place] [facility] 4.2.7.2.686 Bill as [phone] [facility] [address] [place] 2022-05-28 2022-05-28 Telephone [facility] 1.2.840.114 10 [id number] Univers 00:00:00 00:00:00 Clover Mandujano HEALTH 350.1.13.10 it y of [place] 4.2.7.2.686 Bill as CHRISTINA?BLEA [phone] Me dical COLIN 198 [facility] 2022-05-23 2022-05-23 [facility] [id number] Univers 08:30:00 08:30:00 DANIEL ity [facility] 2022-05-21 2022-05-21 [facility]patient [facility] [id number] Univers 09:20:00 09:20:00 FERNANDO ity o f [facility] 2022-05-21 2022-05-21 Outpatient [facility] [id number] Univers 08:40:00 08:40:00 NGA [facility] 2022-05-17 2022-05-17 Orders Doctor YOLIS 1..840.114 [id number] Univers 00:00:00 00:00:00 Only Unassigned, TIN 350.1.13.10 ity of [place] [facility] 4.2.7.2.686 Bill as [phone] [address] 2022-05-09 2022-05-09 Outpatient FOG_Brown_B AOSM AOSM 544 4025-20 Traci 00:00:00 00:00:00 Trina [id number] Orth ope dic Sports Medicin e 2022-05-09 2022-05-09 Telephone Mally [facility] 1.2.330.398 [id number] Univers 00:00:00 00:00:00 Daniel S HEALTH 350.1.13.10 it y of [facility] 4.2.7.2.686 Bill as CHRISTINA?BLEA [phone] Me dical KNEY 198 [facility] 2022-05-08 2022-05-08 Telephone [facility] 1.2.405.473 [id number] Univers 00:00:00 00:00:00 Daniel S HEALTH 350.1.13.10 it y of [place] 4.2.7.2.686 Bill as CHRISTINA?BLEA [phone] Me dical KNEY 198 [facility] 2022-05-08 2022-05-08 Telephone Kumar [facility] 1.2.840.114 10 [id number] Univers 00:00:00 00:00:00 Clover L HEALTH 350.1.13.10 it y of [place] 4.2.7.2.686 Bill as CHRISTINA?BLEA [phone] Il berta SHAW [address] [place] MEDICAL OFFICE [facility] 2022-05-07 2022-05-07 Emergency [facility] [id number] Univers 16:23:00 18:51:00 MARYLOU ity of [facility] 2022-05-07 2022-05-07 [facility] 1.2.059.701 [id number] Univers 16:23:00 18:51:00 Marylou S [place] 350.1.13.10 i ty of [place] 4.2.7.2.686 [place] [phone] [facility] [address] [place] [address] 2022-05-07 2022-05-07 Prep For Mally [facility] 1.2.840.114 [id number] Univers 00:00:00 00:00:00 Surgery [facility] 350.1.13.10 it y of [place] 4.2.7.2.686 Bill as CHRISTINA?BLEA [phone] Il berta SHAW [address] [place] [address] [facility] 2022-05-06 2022-05-06 Orders Doctor YOLIS 1.2.840.114 [id number] Univers 00:00:00 00:00:00 Only Unassigned, TIN 350.1.13.10 ity of [place] [facility] 4.2.7.2.686 Bill as [phone] [facility] [address] [place] 2022-05-02 2022-05-02 Office [facility] 1.2.840.114 [id number] Univers 11:15:00 11:30:00 Visit [facility] 350.1.13.10 it y of [facility] 4.2.7.2.686 Bill as CHRISTINA?BLEA [phone] Il berta SHAW [address] [place] [address] [facility] 2022-05-02 2022-05-02 Outpatient R [facility] [id number] Univers 11:15:00 11:12:40 DANIEL ity of [facility] 2022-04-25 2022-04-25 Telephone [facility] 1.2.840.114 10 [id number] Univers 00:00:00 00:00:00 Clover Mandujano HEALTH 350.1.13.10 it y of [place] 4.2.7.2.686 Bill as CHRISTINA?BLEA [phone] Il berta SHAW 198 [facility] 2022-04-23 2022-04-23 Outpatient [facility] [id number] Univers 08:40:00 13:00:21 NGA odell [facility] 2022-04-23 2022-04-23 Office [facility] 1.2.840.114 [id number] Univers 08:40:00 09:20:00 Visit Nga LU 350.1.13.10 i ty of [place] 4.2.7.2.686 [place] [phone] Il diccholo NAL 059 [facility] 2022-04-16 2022-04-16 Telephone [facility] 1.2.840.114 10 [id number] Univers 00:00:00 00:00:00 Clover INIGUEZ 350.1.13.10 it y of [facility] 4.2.7.2.686 Bill as CHRISTINA?BLEA [phone] Il berta SHAW 198 [facility] 2022-04-10 2022-04-10 Out[facility] [id number] Univers 14:45:00 15:18:38 CLOVER odell [facility] 2022-04-10 2022-04-10 Office [facility] 1.2.939.209 [id number] Univers 14:45:00 15:18:38 Visit Clover INIGUEZ 350.1.13.10 it y of [facility] 4.2.7.2.686 Bill as CHRISTINA?BLEA [phone] Il berta SHAW 198 [facility] 2022-04-10 2022-04-10 Orders Doctor LAGOS 1.2.840.114 [id number] Univers 00:00:00 00:00:00 Only Unassigned, TIN 350.1.13.10 ity of [place] [facility] 4.2.7.2.686 Bill as [phone] [address] 2022-04-08 2022-04-08 Out[facility] [id number] Univers 14:00:00 14:00:00 CLOVERYENY odell [facility] 2021-12-27 2021-12-27 Outpatient R [facility] [id number] Univers 08:30:00 08:30:00 CLOVER linestefania [facility] 2021-12-24 2021-12-24 Outpatient [facility] [id number] Univers 14:45:00 14:45:00 DANIEL estefania [facility] 2021-12-19 2021-12-19 Telephone [facility] 1.2.840.114 [id number] Univers 00:00:00 00:00:00 Clover [facility] 350.1.13.10 i ty of [place] 4.2.7.2.686 [place] [phone] Il dical [address] 2021-11-25 2021-11-25 Outpatient FOG_Brown_B AOSM AOSM 544 4025-20 Traci 00:00:00 00:00:00 Trina [id number] Orth ope dic Sports Medicin e 2021-11-14 2021-11-14 Outpatient FOG_Brown_B AOSM AOSM 544 4025-20 Traci 00:00:00 00:00:00 Trina [id number] Orth ope dic Sports Medicin e 2021-11-11 2021-11-11 Outpatient FOG_Brown_B AOSM AOSM 544 4025-20 Traci 00:00:00 00:00:00 Trina [id number] Orth ope dic Sports Medicin e 2021-08-31 2021-08-31 Subhash [facility] 1.2.840.114 [id number] Univers 00:00:00 00:00:00 Daniel [facility] 350.1.13.10 it y of [place] 4.2.7.2.686 Bill as CHRISTINA?BLEA [phone] Il dical [address] [facility] 2021-07-23 2021-07-23 Refill [facility] 1.2.236.750 [id number] [id number] Univers 00:00:00 00:00:00 Clover [employer] 350.1.13.10 it y of [facility] 4.2.7.2.686 Bill as CHRISTINA?BLEA [phone] Il berta SHAW [address] [facility] OFF[address] [facility] 2021-06-06 2021-06-06 Outpatient FOG_Brown_B AOSM AOSM 544 4025-20 Traci 10:52:00 10:52:00 Trina [id number] Orth ope dic Sports Medicin e 2021-06-06 2021-06-06 Outpatient FOG_Brown_B AOSM AOSM 544 4025-20 Traci 10:52:00 10:52:00 Trina [id number] Orth ope dic Sports Medicin e 2021-06-06 2021-06-06 Outpatient FOG_Brown_B AOSM AOSM 544 4025-20 Traci 00:00:00 00:00:00 Trina [id number] Orth ope dic Sports Medicin e 2021-05-15 2021-05-15 Telephone [facility] 1.2.840.114 [id number] Univers 00:00:00 00:00:00 Clover [employer] 350.1.13.10 it y of [facility] 4.2.7.2.686 Bill as CHRISTINA?BLEA [phone] Il berta [facility] 198 [facility] 2021-05-12 2021-05-12 Orders Doctor LAGOS 1.2.840.114 [id number] Univers 00:00:00 00:00:00 Only Unassigned, TIN 350.1.13.10 ity of [place] [facility] 4.2.7.2.686 Bill as [phone] [address] 2021-05-11 2021-05-11 Outpatient Issa BAL [facility] [id number] Univers 10:45:00 10:45:00 DANIEL odell [facility] 2021-05-11 2021-05-11 Telephone [facility] 1.2.840.114 [id number] Univers 00:00:00 00:00:00 Clover INIGUEZ 350.1.13.10 it y of [place] 4.2.7.2.686 Bill as CHRISTINA?BLEA [phone] Il berta SHAW 198 [facility] 2021-05-08 2021-05-08 Telephone [facility] 1.2.840.114 91 [id number] Univers 00:00:00 00:00:00 Clover INIGUEZ 350.1.13.10 it y of [place] 4.2.7.2.686 Bill as CHRISTINA?BLEA [phone] Il berta SHAW [address] [place] [address] 2021-05-07 2021-05-07 Telephone [facility] 1.2.840.114 91 [id number] Univers 00:00:00 00:00:00 Clover INIGUEZ 350.1.13.10 it y of [place] 4.2.7.2.686 Bill as CHRISTINA?BLEA [phone] Il berta SHAW [address] [place] [address] 2021-04-27 2021-04-27 [facility] [id number] Univers 09:00:00 09:00:00 CLOVER odell [facility] 2021-04-27 2021-04-27 Outpatient [facility] [id number] Univers 00:00:00 00:00:00 CLOVER estefania [facility] 2021-04-23 2021-04-23 Outpatient Issa [facility] [id number] Univers 13:30:00 13:30:00 DANIEL estefania [facility] 2021-04-20 2021-04-20 Outpatient [facility] [id number] Univers 00:00:00 00:00:00 CLOVER odell [facility] 2021-04-20 2021-04-20 Telephone [facility] 1.2.840.114 [id number] Univers 00:00:00 00:00:00 Clover INIGUEZ 350.1.13.10 it y of [place] 4.2.7.2.686 Bill as CHRISTINA?BLEA [phone] Il berta SHAW [address] [place] [address] 2021-04-17 2021-04-17 Telephone [facility] 1.2.840.114 91 [id number] Univers 00:00:00 00:00:00 Clover Mandujano HEALTH 350.1.13.10 it y of [place] 4.2.7.2.686 Bill as CHRISTINA?BLEA [phone] Il berta SHAW [address] [facility] OFFICE [facility] 2021-04-17 2021-04-17 Telephone [facility] 1.2.840.114 91 [id number] Univers 00:00:00 00:00:00 Clover L HEALTH 350.1.13.10 it y of [place] 4.2.7.2.686 Bill as CHRISTINA?BLEA [phone] Il berta SHAW [address] [facility] OFFICE [facility] 2021-04-11 2021-04-11 Telephone [facility] 1.2.840.114 91 [id number] Univers 00:00:00 00:00:00 Clover L HEALTH 350.1.13.10 it y of [place] 4.2.7.2.686 Bill as CHRISTINA?BLEA [phone] Il berta SHAW 198 [facility] 2021-04-11 2021-04-11 [facility] 1.2.840.114 91 [id number] Univers 00:00:00 00:00:00 Clover Mandujano HEALTH 350.1.13.10 it y of [place] 4.2.7.2.686 Bill as CHRISTINA?BLEA [phone] Il berta SHAW 198 [facility] 2021-04-06 2021-04-06 Outpatient R KUMAR [facility] [id number] Univers 08:15:00 08:15:00 CLOVER odell [facility] 2021-04-06 2021-04-06 Telephone [facility] 1.2.884.202 [id number] Univers 00:00:00 00:00:00 Daniel S HEALTH 350.1.13.10 it y of [place] 4.2.7.2.686 Bill as CHRISTINA?BLEA [phone] Il berta SHAW [address] [facility]ICE [facility] 2021-04-05 2021-04-05 Outpatient [facility] [id number] Univers 13:15:00 13:43:22 DANIEL estefania [facility] 2021-04-05 2021-04-05 Office [facility] 1.2.840.114 [id number] Univers 13:15:00 13:30:00 Visit Daniel [facility] 350.1.13.10 it y of [place] 4.2.7.2.686 Bill as CHRISTINA?BLEA [phone] [address]ICAL OFF[address] [facility] 2021-04-05 2021-04-05 Outpatient Issa [facility] [id number] Univers 13:15:00 13:15:00 DANIEL itestefania [facility] 2021-04-05 2021-04-05 Letter Doctor YOLIS 1.2.840.114 [id number] Univers 00:00:00 00:00:00 (Out) Unassigned, TIN 350.1.13.10 ity of [place] [facility] 4.2.7.2.686 Bill as [phone] [address] 2021-04-05 2021-04-05 Letter Doctor YOLIS 1.2.840.114 [id number] Univers 00:00:00 00:00:00 (Out) Unassigned, TIN 350.1.13.10 ity of [place] [facility] 4.2.7.2.686 Bill as [phone] [address] 2021-04-03 2021-04-03 Outpatient Issa [facility] [id number] Univers 13:00:00 13:00:00 [facility] 2021-04-02 2021-04-02 Outpatient Issa [facility]O [facility] [id number] Univers 10:30:00 10:30:00 SENDIL ity [facility] 2021-04-02 2021-04-02 Outpatient Issa [facility] [id number] Univers 10:30:00 10:30:00 SENDIL ity [facility] 2021-03-29 2021-03-29 Outpatient Isas [facility]ATH [facility] [id number] Univers 13:00:00 13:00:00 [facility] 2021-03-29 2021-03-29 [facility]hash [facility] 1.2.287.141 [id number] Univers 00:00:00 00:00:00 Clover Mandujano HEALTH 350.1.13.10 it y of [place] 4.2.7.2.686 Bill as CHRISTINA?BLEA [phone] [address]ICAL OFF[address] [facility] 2021-03-29 2021-03-29 [facility] 1.2.840.114 [id number] Univers 00:00:00 00:00:00 Clover Mandujano HEALTH 350.1.13.10 it y of [place] 4.2.7.2.686 Bill as CHRISTINA?BLEA [phone] [address] 2021-03-28 2021-03-28 Orders Doctor YOLIS 1.2.840.114 [id number] Univers 00:00:00 00:00:00 Only Unassigned, TIN 350.1.13.10 ity of [place] [facility] 4.2.7.2.686 Bill as [phone] [address] 2021-03-23 2021-03-23 [facility] [id number] Univers 11:30:00 11:30:00 CLOVER odell [facility] 2021-03-20 2021-03-20 Orders Doctor YOLIS 1.2.840.114 [id number] Univers 00:00:00 00:00:00 Only Unassigned, TIN 350.1.13.10 ity of [place] [facility] 4.2.7.2.686 Bill as [phone] [address] 2021-03-16 2021-03-16 Telephone [facility] 1.2.840.114 [id number] Univers 00:00:00 00:00:00 Clover Mandujano HEALTH 350.1.13.10 it y of [place] 4.2.7.2.686 Bill as CHRISTINA?BLEA [phone] [address] 2021-03-15 2021-03-15 Outpatient [facility] [id number] Univers 13:00:00 13:00:00 CLOVER odell [facility] 2021-03-09 2021-03-09 Prep For Kumar [facility] 1.2.840.114 [id number] Univers 00:00:00 00:00:00 Surgery Clover INIGUEZ 350.1.13.10 it y of [place] 4.2.7.2.686 Bill as CHRISTINA?BLEA [phone] Il berta SHAW [address] [facility] 2021-03-05 2021-03-05 Outpatient R [facility]AR [facility] [id number] Univers 14:15:00 14:42:32 CLOVER odell [facility] 2021-03-05 2021-03-05 Office [facility] 1.2.414.551 [id number] Univers 14:15:00 14:42:32 Visit Clover INIGUEZ 350.1.13.10 it y of [place] 4.2.7.2.686 Bill as CHRISTINA?BLEA [phone] Il berta SHAW [address] [place] [address] [facility] 2021-03-05 2021-03-05 Orders Doctor YOLIS 1.2.840.114 [id number] Univers 00:00:00 00:00:00 Only Unassigned, TIN 350.1.13.10 ity of [place] [facility] 4.2.7.2.686 Bill as [phone] [address] 2021-03-05 2021-03-05 Telephone Kumar [facility] 1.2.840.114 [id number] Univers 00:00:00 00:00:00 Clover INIGUEZ 350.1.13.10 it y of [place] 4.2.7.2.686 Bill as CHRISTINA?BLEA [phone] Il berta SHAW [address] [place] [address] [facility] 2021-02-12 2021-02-12 Outpatient R [facility] [id number] Univers 13:45:00 13:45:00 CLOVER odell [facility] 2021-02-01 2021-02-01 Telephone Kumar [facility] 1.2.840.114 [id number] Univers 00:00:00 00:00:00 Clover INIGUEZ 350.1.13.10 it y of [place] 4.2.7.2.686 Bill as CHRISTINA?BLEA 322.8432726 Il berta SHAW [address] [facility] OFF[facility] 2021-01-29 2021-01-29 Telephone [facility] 1.2.840.114 [id number] Univers 00:00:00 00:00:00 [facility] 350.1.13.10 it y of [place] 4.2.7.2.686 Bill as CHRISTINA?BLEA [phone] Il berta SHAW [address] [facility] OFFICE [facility] 2021-01-22 2021-01-22 [facility] 1.2.138.777 [id number] Univers 00:00:00 00:00:00 Sendil Demetri LU 350.1.13.10 [place] [phone] Il dicor NAL 059 [facility] 2021-01-19 2021-01-19 Outpatient [facility] [id number] Univers 10:00:00 23:59:00 SENDIL ity of [facility] 2021-01-19 2021-01-19 [facility] 1.2.840.114 [id number] Univers 09:54:13 23:59:00 Encounter Sendodilia LU 350.1.13.10 ity [facility] [place].2.7.2.[place] [phone] Il dicor NAL 843 [facility] 2021-01-19 2021-01-19 Outpatient [facility] [id number] Univers 10:00:00 10:00:00 SENDIL ity [facility] 2021-01-19 2021-01-19 [facility] 1.2.776.827 [id number] Univers 00:00:00 00:00:00 Fernando LU 350.1.13.10 ity [place].2.[place] [phone] Il dical NAL 059 [facility] 2021-01-16 2021-01-16 Outpatient [facility] [id number] Univers 00:00:00 00:00:00 SENDIL ity [facility] 2021-01-16 2021-01-16 Outpatient R [facility]SEM [facility] [id number] Univers 00:00:00 00:00:00 SENDIL ity [facility] 2020-12-07 2020-12-07 Telephone [facility] 1.2.768.271 [id number] Univers 00:00:00 00:00:00 Sendil Demetri Lu 350.1.13.10 ity of [place].2.[place] [phone] Il dic[address] 2020-11-02 2020-11-02 Outpatient R BASSEM [facility] [id number] Univers 00:00:00 00:00:00 SENDIL ity [facility] 2020-10-03 2020-10-03 [facility] [id number] Univers 00:00:00 00:00:00 SENDIL ity [facility] 2020-09-21 2020-09-21 Outpatient [facility] [id number] Univers 15:30:00 15:32:11 SENDIL ity [facility] 2020-09-21 2020-09-21 Office [facility] 1.2.840.114 [id number] Univers 14:55:58 15:32:11 Visit Korin LU 350.1.13.10 [place] [phone] Il dicor NAL [address] [place] [address] 2020-09-21 2020-09-21 Office [facility] 1.2.840.114 [id number] Univers 14:55:58 15:32:11 Visit Korin LU 350.1.13.10 it[place] [id number] Il dical NAL [address] [place] [address] 2020-09-21 2020-09-21 Outpatient [facility] [id number] Univers 15:30:00 15:30:00 SENDIL ity [facility] 2020-07-27 2020-07-27 [facility] [id number] Univers 08:04:33 23:59:00 CLOVER odell [facility] 2020-07-27 2020-07-27 [facility] 1.2.840.114 [id number] Univers 08:04:33 23:59:00 Encounter Clover Iniguez 350.1.13.10 ity of Surgical 4.2.7.2.686 Bill as Specialti [phone] Me dical es 809 [facility] 2020-07-27 2020-07-27 Office [facility] 1.2.840.114 [id number] Univers 07:51:51 09:06:38 Visit Daniel Iniguez 350.1.13.10 it y of Surgical 4.2.7.2.686 Bill as Specialti [id number] Me dical es 198 [facility] 2020-07-27 2020-07-27 [facility] [id number] Univers 08:00:00 08:00:00 DANIEL odell [facility] 2020-07-27 2020-07-27 [facility]phone [facility] [id number] [id number] Univers 00:00:00 00:00:00 Daniel Iniguez 350.1.13.10 it y of Surgical 4.2.7.2.686 Bill as Specialti [id number] Me dical es 198 [facility] 2020-07-11 2020-07-11 Outpatient R MALLY [facility] [id number] Univers 14:00:00 14:00:00 DANIEL odell [facility] 2020-03-29 2020-03-29 Orders Doctor LAGOS 1.2.840.114 [id number] 00:00:00 00:00:00 Only UnassignedTIN 350.1.13.10 [facility] 4.2.7.2.686 [id number] 2020-03-29 2020-03-29 Orders Doctor LAGOS 1.2.840.114 [id number] Univers 00:00:00 00:00:00 Only UnassignedTIN 350.1.13.10 ity of [place] [facility] 4.2.7.2.686 [facility] [id number] [facility] [address] 2020-03-11 2020-03-11 Emergency Goldman, [facility] 1.2.840.114 [id number] 18:06:00 18:59:00 Nidia [place] 350.1.13.10 [place] 4.2.7.2.686 [place] [id number] [facility] 2020-03-11 2020-03-11 Emergency Goldman, [facility] 1.2.840.114 [id number] [facility] 18:06:00 18:59:00 Nidia [place] 350.1.13.10 i ty of [place] 4.2.7.2.686 [facility] [phone] [place] [address] [place] 2020-01-17 2020-01-17 Emergency Goldman, [facility] 1.2.840.114 [id number] 16:55:00 19:20:00 Nidia [place] 350.1.13.10 [place] 4.2.7.2.686 [place] [phone] [facility] 2020-01-17 2020-01-17 Emergency Goldman, [facility] 1.2.840.114 [id number] [facility] 16:55:00 19:20:00 Nidia [place] 350.1.13.10 i ty of [place] 4.2.7.2.686 [facility] [phone] [address] 2019-05-25 2019-05-25 Outpatient SIFF, CARLOS [facility] [id number] [place] 00:00:00 00:00:[address] 2019-05-25 2019-05-25 Outpatient SIFF, CARLOS [facility] [id number] [place] 00:00:00 00:00:[address] 2019-05-25 2019-05-25 Outpatient SIFF, CARLOS [facility] [id number] [place] 00:00:00 00:00:[address] 2019-05-25 2019-05-25 Outpatient SIFF, CARLOS [facility] 2099 [id number] [place] 00:00:00 00:00:[address] 2019-02-24 2019-02-24 Departed GETACHEW [place] [id number] [place]ST[place] 18:14:00 19:15:00 Emergency [address] 2019-02-24 2019-02-24 Departed GETACHEW Morales [id number] [place] 18:14:00 19:15:[address] LIVE HCIS 2019-02-10 2019-02-10 Emergency X [facility] ERT [id number] [employer] 18:48:57 21:06:00 MARYLOU odell [facility] Results Test Description Test Time Test Comments Results Result Comments Source SEDIMENTATION RATE 2022-08-16 20:46:00 Test Item Value Reference Range Interpretation Comme nts ESR (test code = 19170-4) 13 See_Comment [ Automated message] The system which generated this result transmitted ref erence range: 0 - 20 mm/HR. The r eference range was not used to int erpret this result as normal/abnor mal. Lab Interpretation (test code = Normal 22691-8) [facility] (NA, K, CL, CO2, GLUCOSE, BUN, CREATININE, CA)2022-08-16 20:14:07 Test Item Value Reference Range Interpretation Comments NA (test code = 137 mmol/L 135-145 2607797721) K (test code = 4.4 mmol/L 3.5-5.0 9424251148) CL (test code = 106 mmol/L 98-108 1196471427) CO2 TOTAL (test code = 22 mmol/L 23-31 L 9050666094) AGAP (test code = 9 2-16 6574625048) BUN (test code = 15 mg/dL 7-23 1361065968) GLUCOSE (test code = 111 mg/dL 70-110 H 8412817396) CREATININE (test code = 1.01 mg/dL 0.50-1.04 6818995909) CALCIUM (test code = 9.4 mg/dL 8.6-10.6 9230385588) eGFR (test code = 55.7 mL/min/1.73m2 5251767115) SELAM (test code = SELAM) Association of [...] tests). Lab Interpretation Abnormal (test code = 34380-5) [facility] [id number] 20:14:07 Test Item Value Reference Range Interpretation Comments URIC ACID (test code = 7142477417) 4.7 mg/dL 2.9-6.0 Lab Interpretation (test code = Normal 18666-2) [facility] WITH [id number] 19:56:20 Test Item Value Reference Range Interpretation Comments WBC (test code = 7.17 See_Comment [Automated 3618-2) message] The sy stem which generated this result transmitted reference range : 4.30 - 11.10 10*3/?L. The reference range was not used to interpret this result as normal/abnormal . RBC (test code = 4.23 See_Comment [Automated 525-0) message] The sy stem which generated this [...] RDW-SD (test code = 47.5 fL 39.0-49.9 66971-3) RDW-CV (test code = 14.0 % 12.0-15.5 788-0) PLT (test code = 312 See_Comment [Automated 777-3) message] The sy stem which generated this result transmitted reference range : 166 - 358 10*3/ ?L. The reference r robert was not used to interpret this result as normal/abnormal . MPV (test code = 9.5 fL 9.5-12.9 52671-1) NRBC/100 WBC (test 0.0 See_Comment [Automat ed code = 8757726241) message] The system which generated this result transmitted reference range : 0.0 - 10.0 /100 WBCs. The refer ence range was not u sed to interpret th is result as normal/abnormal . NRBC x10^3 (test code See_Comment [Auto mated = 4056608861) message] The s ystem which generated this result transmitted reference range : 10*3/?L. The reference range was not used to interpret this result as normal/abnormal . GRAN MAT (NEUT) % 55.5 % (test code = 770-8) IMM GRAN % (test code 0.60 % = 2613803489) LYMPH % (test code = 25.0 % 736-9) MONO % (test code = 10.2 % 5905-5) EOS % (test code = 6.6 % 713-8) BASO % (test code = 2.1 % 706-2) GRAN MAT x10^3(ANC) 3.99 10*3/uL 1.88-7.09 (test code = 1586531336) IMM GRAN x10^3 (test 0.04 10*3/uL 0.00-0.06 code = 0004886457) LYMPH x10^3 (test code 1.79 10*3/uL 1.32-3.29 = 731-0) MONO x10^3 (test code 0.73 10*3/uL 0.33-0.92 = 742-7) EOS x10^3 (test code = 0.47 10*3/uL 0.03-0.39 H 711-2) BASO x10^3 (test code 0.15 10*3/uL 0.01-0.07 H = 704-7) Lab Interpretation Abnormal (test code = 13779-0) [facility] WITH [id number] 15:45:24 Test Item Value Reference Range Interpretation Comments WBC (test code = 10.54 See_Comment [Automated 1552-2) message] The sy stem which generated this result transmitted reference range : 4.30 - 11.10 10*3/?L. The reference range was not used to interpret this result as normal/abnormal . RBC (test code = 3.76 See_Comment L [Automated 739-8) message] The sy stem which generated this [...] RDW-SD (test code = 48.2 fL 39.0-49.9 50326-6) RDW-CV (test code = 13.8 % 12.0-15.5 788-0) PLT (test code = 266 See_Comment [Automated 467-3) message] The sy stem which generated this result transmitted reference range : 166 - 358 10*3/ ?L. The reference r robert was not used to interpret this result as normal/abnormal . MPV (test code = 9.2 fL 9.5-12.9 L 49838-9) NRBC/100 WBC (test 0.0 See_Comment [Automat ed code = 3128270177) message] The system which generated this result transmitted reference range : 0.0 - 10.0 /100 WBCs. The refer ence range was not u sed to interpret th is result as normal/abnormal . NRBC x10^3 (test code See_Comment [Auto mated = 3113754385) message] The s ystem which generated this result transmitted reference range : 10*3/?L. The reference range was not used to interpret this result as normal/abnormal . GRAN MAT (NEUT) % 71.4 % (test code = 770-8) IMM GRAN % (test code 1.10 % = 9627514469) LYMPH % (test code = 13.3 % 736-9) MONO % (test code = 11.8 % 5905-5) EOS % (test code = 1.7 % 713-8) BASO % (test code = 0.7 % 706-2) GRAN MAT x10^3(ANC) 7.53 10*3/uL 1.88-7.09 H (test code = 4021525655) IMM GRAN x10^3 (test 0.12 10*3/uL 0.00-0.06 H code = 0115178750) LYMPH x10^3 (test code 1.40 10*3/uL 1.32-3.29 = 731-0) MONO x10^3 (test code 1.24 10*3/uL 0.33-0.92 H = 742-7) EOS x10^3 (test code = 0.18 10*3/uL 0.03-0.39 711-2) BASO x10^3 (test code 0.07 10*3/uL 0.01-0.07 = 704-7) Lab Interpretation Abnormal (test code = 81448-0) [facility] WITH [id number] 15:45:24 Test Item Value Reference Range Interpretation [...] RDW-SD (test code = 48.2 fL 39.0-49.9 40029-5) RDW-CV (test code = 13.8 % 12.0-15.5 788-0) PLT (test code = 266 See_Comment [Automated 777-3) message] The sy stem which generated this result transmitted reference range : 166 - 358 10*3/ ?L. The reference r robert was not used to interpret this result as normal/abnormal . MPV (test code = 9.2 fL 9.5-12.9 L 15376-2) NRBC/100 WBC (test 0.0 See_Comment [Automat ed code = 3915863707) message] The system which generated this result transmitted reference range : 0.0 - 10.0 /100 WBCs. The refer ence range was not u sed to interpret th is result as normal/abnormal . NRBC x10^3 (test code See_Comment [Auto mated = 0277246426) message] The s ystem which generated this result transmitted reference range : 10*3/?L. The reference range was not used to interpret this result as normal/abnormal . GRAN MAT (NEUT) % 71.4 % (test code = 770-8) IMM GRAN % (test code 1.10 % = 9045682739) LYMPH % (test code = 13.3 % 736-9) MONO % (test code = 11.8 % 5905-5) EOS % (test code = 1.7 % 713-8) BASO % (test code = 0.7 % 706-2) GRAN MAT x10^3(ANC) 7.53 10*3/uL 1.88-7.09 H (test code = 0826472678) IMM GRAN x10^3 (test 0.12 10*3/uL 0.00-0.06 H code = 0694373230) LYMPH x10^3 (test code 1.40 10*3/uL 1.32-3.29 = 731-0) MONO x10^3 (test code 1.24 10*3/uL 0.33-0.92 H = 742-7) EOS x10^3 (test code = 0.18 10*3/uL 0.03-0.39 711-2) BASO x10^3 (test code 0.07 10*3/uL 0.01-0.07 = 704-7) Lab Interpretation Abnormal (test code = 03119-9) [facility] St[facility] pyogenes antigen [id number] 18:38:00 Test Item Value Reference Range Interpretation Comments Group A Streptococcus Screen (test Negative Negative code = 43031-7) [facility] [id number] 18:38:00 Test Item Value Reference Range Interpretation Comments Group A Streptococcus Screen (test Negative code = 55541-2)"
[2022-10-12] MEDS ORDERED: LEVALBUTEROL 1.25 MG/3 ML NEB ONE (11:21)
[2022-10-12] MEDS ORDERED: HYDROCODONE/APAP 10/325 TAB ONE (11:21)
--- NOTE | 2022-10-12 12:22 | RAD REPORT ---
EXAM DESCRIPTION: CT - Head Brain Wo Cont - 10/12/2022 11:34 am CLINICAL HISTORY: right ear pain COMPARISON: No comparisons TECHNIQUE: Noncontrast head CT images were obtained without IV contrast. Multiplanar reformats were generated and reviewed. All CT scans are performed using dose optimization technique as appropriate and may include automated exposure control or mA/KV adjustment according to patient size. FINDINGS: Subtle focus of mild hyperdensity along the right sylvian fissure dependent aspect, best a ppreciated on coronal view only, image 31/74. This is nonspecific, could relate to apposition of cere bral cortex, intracranial atherosclerotic changes, and overall does not warrant strong suspicion for subarachnoid hemorrhage. No intracranial hemorrhage, mass, or edema. Midline structures are unremarka ble. Normal ventricular caliber for age. Zamarripa-white matter differentiation is preserved, without evidence of acute infarct. No abnormal extra- axial fluid collections. Mastoid air cells and visualized portions of the paranasal sinuses are clear. No acute bony findings. IMPRESSION: Subtle hyperdense focus of hyperdensity along the right sylvian fissure as above. Please correlate clinically, and consider short-term follow-up CT in 4-6 hours, if there is clinical concer n for subarachnoid hemorrhage. No other evidence of an acute intracranial process.
[2022-10-12] MEDS ORDERED: LORAZEPAM 1 MG TABLET ONE (14:28)
--- NOTE | 2022-10-12 15:53 | RAD REPORT ---
EXAM DESCRIPTION: CT - Head Brain Wo Cont - 10/12/2022 3:06 pm CLINICAL HISTORY: HEADACHE. Follow-up of abnormal hyperdense focus on prior CT COMPARISON: Head Brain Wo Cont dated 10/12/2022 TECHNIQUE: Noncontrast head CT images were obtained without IV contrast. Multiplanar reformats were generated and reviewed. All CT scans are performed using dose optimization technique as appropriate and may include automated exposure control or mA/KV adjustment according to patient size. FINDINGS: No intracranial hemorrhage, mass, or edema. Midline structures are unremarkable. The right sylvian fissure focus of hyperdensity is less conspicuous than on the prior exam. Normal ventricular caliber for age. Zamarripa-white matter differentiation is preserved, without evidence of acute infarct. No abnormal extra- axial fluid collections. Mastoid air cells and visualized portions of the paranasal sinuses are clear. No acute bony findings. IMPRESSION: No evidence of an acute intracranial process. Right sylvian fissure focus of hyperdens ity is less conspicuous than on the prior exam.
--- NOTE | 2022-10-12 16:00 | EDPHYS ---
Physician Documentation [facility] Name: Vicky Walker Age: 62 yrs Sex: Female : 1960 Arrival Date: 10/12/2022 Time: 10:22 Bed 13 Private MD: ED Physician Gomez Castillo HPI: 10/12 18:03 This 62 yrs old Female presents to ER via Ambulatory with complaints of Ear Pain. kdr 18:04 Patient complains of right ear pain that began about 4 days ago. Patient was seen in kdr the ER yesterday for the same problem was given steroids. Patient states that the medications given did not help. Patient states that tramadol does not help her pain at all but believes she needs antibiotics.. Onset: The symptoms/episode began/occurred suddenly. Severity of symptoms: At their worst the symptoms were mild in the emergency department the symptoms are unchanged. The patient has not experienced similar symptoms in the past. Historical: - Allergies: 10:35 PENICILLINS; ss 10:35 Toradol; ss - PMHx: 10:35 Anxiety; GERD; Chronic pain; psoriasis; Hypertension; ss - PSHx: 10:35 hysterectomy; Cholecystectomy; R knee replacement; ss - Immunization history:: Client reports receiving the 2nd dose of the Covid vaccine. - Social history:: Smoking status: Patient denies any tobacco usage or history of. ROS: 18:04 Constitutional: Negative for fever, chills, and weight loss, Eyes: Negative for injury, kdr pain, redness, and discharge, Neck: Negative for injury, pain, and swelling, Cardiovascular: Negative for chest pain, palpitations, and edema, Respiratory: Negative for shortness of breath, cough, wheezing, and pleuritic chest pain, Abdomen/GI: Negative for abdominal pain, nausea, vomiting, diarrhea, and constipation. 18:04 ENT: Positive for ear pain. Exam: 18:04 Constitutional: This is a well developed, well nourished patient who is awake, alert, kdr and in no acute distress. Head/Face: Normocephalic, atraumatic. Eyes: Pupils equal round and reactive to light, extra-ocular motions intact. Lids and lashes normal. Conjunctiva and sclera are non-icteric and not injected. Cornea within normal limits. Periorbital areas with no swelling, redness, or edema. Neck: Trachea midline, no thyromegaly or masses palpated, and no cervical lymphadenopathy. Supple, full range of motion without nuchal rigidity, or vertebral point tenderness. No Meningismus. 18:04 ENT: Ear canal(s): abscess, is not appreciated, bleeding, is not appreciated, bloody discharge, is not appreciated, cerumen impaction, is not appreciated, erythema, is not appreciated, foreign body, is not appreciated, purulent discharge, is not appreciated, swelling, is not appreciated, TM's: dullness, on the right, loss of bony landmarks, that is moderate, rupture, is not appreciated, Significant chronic changes to the tympanic membrane suggesting prior infections and inflammation. Vital Signs: 10:32 BP 151 / 82; Pulse 96; Resp 17; Temp 98.2(TE); Pulse Ox 98% on R/A; Weight 81.65 kg; ss Height 5 ft. 2 in. ; Pain 8/10; 10:49 BP 127 / 77; Pulse 86; Resp 19; Pulse Ox 96% on R/A; me1 11:41 BP 129 / 91; Pulse 76; Resp 18; Pulse Ox 96% on R/A; me1 12:01 BP 112 / 68; Pulse 83; Resp 18; Temp 98; Pulse Ox 92% ; sm8 13:27 BP 125 / 76; Pulse 70; Resp 20; Pulse Ox 95% on R/A; me1 14:37 BP 162 / 95; Pulse 87; Resp 20; Pulse Ox 96% on R/A; me1 15:20 BP 152 / 84; Pulse 90; Resp 22; Temp 97.3; Pulse Ox 97% ; Pain 5/10; sm8 10:32 Body Mass Index 32.92 (81.65 kg, 157.48 cm) ss 10:32 Pain Scale: Adult ss 15:20 Pain Scale: Adult sm8 MDM: 12:39 ED course: Index of suspicion for a intracranial/subarachnoid bleed is low. Patient did kdr not have a thunderclap headache, head trauma or headache significantly worse than other prior headaches of similar nature.. 15:59 Patient medically screened. kdr 18:04 Data reviewed: vital signs, nurses notes, radiologic studies. ED course: Initial CT of kdr the head showed a questionable area that may reflect an subarachnoid hemorrhage. This suggested by radiology was to have a follow-up CT in 4 hours. During the wait time, the patient was in and out of the ED to go outside and smoke. Patient did not appear to be in any acute distress. The repeat CT did not show any concerning findings at that time. The patient was discharged in stable condition to continue on her previously prescribed and scheduled medications. 10/12 11:02 Order name: CT Head Brain wo Cont; Complete Time: 13:41 kdr 10/12 14:30 Order name: CT Head Brain wo Cont: REPEAT AT 15:00; Complete Time: 15:57 kdr Administered Medications: 11:13 Drug: HYDROcodone-acetaminophen PO 10 mg-325 mg 1 tabs Route: PO; me1 11:42 Follow up: Response: No adverse reaction; Pain is decreased me1 11:13 Drug: Levalbuterol Inhalation 1.25 mg Route: Inhalation; me1 11:41 Follow up: Response: Wheezing diminished me1 11:42 Follow up: Response: No adverse reaction me1 14:19 Drug: LORazepam PO 2 mg Route: PO; me1 15:19 Follow up: Response: No adverse reaction; Anxiety decreased me1 Disposition Summary: 10/12/22 15:59 Discharge Ordered Location: Home kdr Problem: an acute exacerbation kdr Symptoms: have improved kdr Condition: Stable kdr Diagnosis - Otalgia, right ear kdr - Headache kdr Followup: kdr - With: Private Physician - When: 2 - 3 days - Reason: If symptoms return, Further diagnostic work-up, Recheck today's complaints, Continuance of care, Re-evaluation by your physician Discharge Instructions: - Discharge Summary Sheet kdr - General Headache Without Cause, [id number] kdr Forms: - Medication Reconciliation Form kdr - Thank You Letter kdr - Patient Portal Instructions kdr - Leadership Thank You Letter kdr Signatures: Dispatcher [employer] Gomez Gates MD MD kdr Rashida Bryson RN RN Maria Guadalupe Montague RN RN me1
--- NOTE | 2022-10-12 16:00 | ER ---
Nurse's Notes [facility] Name: Vicky Walker Age: 62 yrs Sex: Female : 1960 Arrival Date: 10/12/2022 Time: 10:22 Bed 13 Private MD: Diagnosis: Otalgia, right ear;Headache Presentation: 10/12 10:32 Chief complaint: Patient states: R ear pain that began 4 days ago. Pt was seen in ER ss yesterday and was given steroids, but they do not seem to help. "Pt state, Tramadol does not help my pain at all and I think I need antibiotics.". Coronavirus screen: Client denies travel out of the [place] in the last 14 days. Ebola Screen: Patient denies exposure to infectious person. Patient denies travel to an Ebola-affected area in the 21 days before illness onset. Initial Sepsis Screen: Does the patient meet any 2 criteria? No. Patient's initial sepsis screen is negative. Does the patient have a suspected source of infection? No. Patient's initial sepsis screen is negative. Risk Assessment: Do you want to hurt yourself or someone else? Patient reports no desire to harm self or others. Onset of symptoms was October 08, 2022. 10:32 Method Of Arrival: Ambulatory ss 10:32 Acuity: PIYUSH 4 ss Historical: - Allergies: 10:35 PENICILLINS; ss 10:35 Toradol; ss - PMHx: 10:35 Anxiety; GERD; Chronic pain; psoriasis; Hypertension; ss - PSHx: 10:35 hysterectomy; Cholecystectomy; R knee replacement; ss - Immunization history:: Client reports receiving the 2nd dose of the Covid vaccine. - Social history:: Smoking status: Patient denies any tobacco usage or history of. Screenin:46 [facility] ED Fall Risk Assessment (Adult) Score/Fall Risk Level 0 - 2 = Low Risk. Abuse me1 screen: Denies threats or abuse. Nutritional screening: No deficits noted. Tuberculosis screening: No symptoms or risk factors identified. Assessment: 10:46 General: Appears uncomfortable, obese, Behavior is calm, cooperative, appropriate for me1 age. Pain: Complains of pain in right ear Pain does not radiate. Pain currently is 8 out of 10 on a pain scale. Quality of pain is described as sharp, stabbing, Pain began 2-3 days ago. Is continuous. Neuro: Level of Consciousness is awake, alert, obeys commands, Oriented to person, place, time, situation, Appropriate for age. Cardiovascular: Capillary refill < 3 seconds Patient's skin is warm and dry. Respiratory: Airway is patent Respiratory effort is even, unlabored, Respiratory pattern is regular, symmetrical. Respiratory: Reports cough that is non-productive. EENT: Reports pain in right ear. 10:46 General: Reports feeling ill for cough, congestion, right ear pain x 4 days. Denies me1 fever, chills. 14:38 Reassessment: No changes from previously documented assessment. me1 14:39 General: Appears uncomfortable, Behavior is agitated, anxious, crying. me1 15:38 Reassessment: Patient appears in no apparent distress at this time. No changes from hb previously documented assessment. Patient and/or family updated on plan of care and expected duration. Pain level reassessed. 15:44 Reassessment: No changes from previously documented assessment. Patient and/or family me1 updated on plan of care and expected duration. Pain level reassessed. Vital Signs: 10:32 BP 151 / 82; Pulse 96; Resp 17; Temp 98.2(TE); Pulse Ox 98% on R/A; Weight 81.65 kg; ss Height 5 ft. 2 in. ; Pain 8/10; 10:49 BP 127 / 77; Pulse 86; Resp 19; Pulse Ox 96% on R/A; me1 11:41 BP 129 / 91; Pulse 76; Resp 18; Pulse Ox 96% on R/A; me1 12:01 BP 112 / 68; Pulse 83; Resp 18; Temp 98; Pulse Ox 92% ; sm8 13:27 BP 125 / 76; Pulse 70; Resp 20; Pulse Ox 95% on R/A; me1 14:37 BP 162 / 95; Pulse 87; Resp 20; Pulse Ox 96% on R/A; me1 15:20 BP 152 / 84; Pulse 90; Resp 22; Temp 97.3; Pulse Ox 97% ; Pain 5/10; sm8 10:32 Body Mass Index 32.92 (81.65 kg, 157.48 cm) ss 10:32 Pain Scale: Adult ss 15:20 Pain Scale: Adult 8 ED Course: 10:25 Patient arrived in ED. ts1 10:28 Gomez Castillo MD is Attending Physician. kdr 10:35 Triage completed. ss 10:35 Arm band placed on left wrist. ss 10:39 Maria Guadalupe Montague, RN is Primary Nurse. me1 10:46 Patient has correct armband on for positive identification. Bed in low position. Call me1 light in reach. Side rails up X 1. Provided Education on: POC. Verbalized understanding. . 10:46 No provider procedures requiring assistance completed. Patient did not have IV access me1 during this emergency room visit. 11:35 CT Head Brain wo Cont In Process Unspecified. EDMS 12:52 Diet: Patient given snack. sm8 15:07 CT Head Brain wo Cont: REPEAT AT 15:00 In Process Unspecified. EDMS Administered Medications: 11:13 Drug: HYDROcodone-acetaminophen PO 10 mg-325 mg 1 tabs Route: PO; me1 11:42 Follow up: Response: No adverse reaction; Pain is decreased me1 11:13 Drug: Levalbuterol Inhalation 1.25 mg Route: Inhalation; me1 11:41 Follow up: Response: Wheezing diminished me1 11:42 Follow up: Response: No adverse reaction me1 14:19 Drug: LORazepam PO 2 mg Route: PO; me1 15:19 Follow up: Response: No adverse reaction; Anxiety decreased me1 Medication: 10:46 VIS not applicable for this client. me1 Outcome: 15:59 Discharge ordered by . kdr 16:06 Discharged to home ambulatory, with friend. me1 16:06 Condition: stable 16:06 Discharge instructions given to patient, Instructed on discharge instructions, follow up and referral plans. medication usage, Demonstrated understanding of instructions, follow-up care, medications. 16:07 Patient left the ED. me1 Signatures: Dispatcher [employer] EDMS Gomez Castillo MD MD [facility] Rashida Bryson RN RN Dianne Hunt RN RN Wanda Gil PAS PAS ts1 Columba Bautista sm8 Maria Guadalupe Montague, RN RN me1 Corrections: (The following items were deleted from the chart) 10:59 10:46 General: Appears uncomfortable, obese, Behavior is calm, cooperative, appropriate me1 for age, me1 10:59 10:46 EENT: Reports pain in right ear me1 me1
[2022-10-12 16:24] VITALS: BP 152/84; TEMP 97.3; O2SAT 97
== END 2022-10-12 16:07 | disposition home or self-care (01) ==
LOC: ER 10:22
DX: H92.01 Otalgia, right ear (principal); R51.9 Headache, unspecified; I10 Essential (primary) hypertension; Z88.0 Allergy status to penicillin; Z88.5 Allergy status to narcotic agent
CPT/HCPCS: 70450 ×2; 99284; J7614

== ENCOUNTER 2022-10-19 09:43 | Emergency (ER) | payer OTHER ==
--- OUTSIDE RECORDS SUMMARY | 2022-10-19 09:56 | XMS REPORT | Continuity of Care Document ---
:1960 Author Organization [facility] t Address [address] [facility] [address] [place] [address] Care Team Providers Name Role Phone ADAM [...] Marylou Guzman S Attending Clinician Doctor Unassigned, [place] Attending Clinician Unavailable Only, Adc Test Attending [...] Number Effective Date Expiration Date S julio [facility] DUAL [id number] 2022 COMP HMO D SNP 00:00:00 [facility] [place] [id number] 2022 STAR PLUS 00:00:00 [employer] [place] [id number] 2020 CLASSIC/VALUE 00:00:00 MEDICARE PART A \\T\\ [id number] 2011 B 00:00:00 MEDICAID OF [place] [id number] 2010 00:00:00 [employer] (MEDICARE [id number] REPLACEMENT/ADVANTA GE - PPO) [facility] [id number] 2016 [facility] (MEDICAID 00:00:00 HMO) [employer] CHOICE [id number] 2021 00:00:00 WELLCARE (MEDICARE [id number] 2021 REPLACEMENT/ADVANTA 00:00:00 GE - PPO) Problems Condition Condition Condition Status Onset Resolution Last Treating Co mments Source Name Details Category Date Date Treatment Clinician Date Primary Primary Disease Active Overview: Univ ers osteoarthr osteoarthr 1-10 Formatt[place] ity of itis of itis of 00:00: g of this [place] right knee right knee 00 note Me dical might be Branch different from the original. Added automatic ally from request for surgery [id number] Fracture, Fracture, Disease Active Met Ezekiel Ocampo, [...] History of tobacco Cigarette Smoker [facility] Gender identity [facility] Sexual orientation [facility] Exposure to 2022-07-05 2022-07-15 Not sure [facility] SARS-CoV-2 (event) 00:00:00 13:54:00 [facility] Tobacco use and 2022-04-10 2022-04-10 Smokeless Universit y of exposure 00:00:00 00:00:00 tobacco non-user [facility] Alcohol intake 2019-05-25 2019-05-25 0 /d Oriental [...] Date Source Smokes tobacco daily 2022-04-10 00:00:00 [facility] Current Light tobacco 2019-02-24 18:35:00 [facility] smoker Medications Ordered Filled Start [...] at 1400, 1 mL diclofenac 2022-0 Yes [id number] 75mg Take 1 Univers 75 mg EC 6-16 tablet by ity of tablet 00:00: mouth in [place] [address] the [facility] morning [place]ia and 1 tablet in the evening. Take with meals. acetaminoph 2022-0 Yes [id number] 650mg Take 1 Univers en (TYLENOL 6-16 tablet by ity of ARTHRITIS 00:00: mouth [place] PAIN) 650 00 every 8 Medical mg CR (eight) Branch tablet hours as needed for Pain. predniSONE 2022-0 Yes [id number] Take 2 Univers 20 mg 6-16 tablets PO ity of tablet 00:00: daily [address] gabapentin 2022-0 Yes [id number] 100mg Take 1 Univers (NEURONTIN) 6-16 capsule by it y of 100 mg 00:00: mouth in [place] capsule the [facility] morning [place] and 1 capsule at noon and 1 capsule in the evening. diclofenac 2022-0 Yes [id number] 75mg Take 1 Univers 75 mg EC 6-16 tablet by ity of tablet 00:00: mouth in [place] [address] the [facility] morning Alicia and 1 tablet in the evening. Take with meals. acetaminoph 2022-0 Yes [id number] 650mg Take 1 Univers en (TYLENOL 6-16 tablet by ity of ARTHRITIS 00:00: mouth [place] PAIN) 650 00 every 8 Medical mg CR (eight) Branch tablet hours as needed for Pain. predniSONE 2023-0 Yes [id number] Take 2 Univers 20 mg 6-16 tablets PO ity of tablet 00:00: daily [place] [facility] Branch gabapentin 2023-0 Yes [id number] 100mg Take 1 Univers (NEURONTIN) 6-16 capsule by it y of 100 mg 00:00: mouth in [place] capsule 00 the Medical morning Branch and 1 capsule at noon and 1 capsule in the evening. diclofenac 2023-0 Yes [id number] 75mg Take 1 Univers 75 mg EC 6-16 tablet by ity of tablet 00:00: mouth in [place] 00 the Medical morning Branch and 1 tablet in the evening. Take with meals. acetaminoph 2023-0 Yes [id number] 650mg Take 1 Univers en (TYLENOL 6-16 tablet by ity of ARTHRITIS 00:00: mouth [place] PAIN) 650 00 every 8 Medical mg CR (eight) Branch tablet hours as needed for Pain. predniSONE 3-0 Yes [id number] Take 2 Univers 20 mg 6-16 tablets PO ity of tablet 00:00: daily [place] [facility] Branch gabapentin 3-0 Yes [id number] 100mg Take 1 Univers (NEURONTIN) 6-16 capsule by it y of 100 mg 00:00: mouth in [place] capsule 00 the Medical morning Branch and 1 capsule at noon and 1 capsule in the evening. diclofenac 3-0 Yes [id number] 75mg Take 1 Univers 75 mg EC 6-16 tablet by ity of tablet 00:00: mouth in [place] 00 the Medical morning Branch and 1 tablet in the evening. Take with meals. acetaminoph 2023-0 Yes [id number] 650mg Take 1 Univers en (TYLENOL 6-16 tablet by ity of ARTHRITIS 00:00: mouth [place] PAIN) 650 00 every 8 Medical mg CR (eight) Branch tablet hours as needed for Pain. predniSONE 3-0 Yes [id number] Take 2 Univers 20 mg 6-16 tablets PO ity of tablet 00:00: daily [place] [facility] gabapentin 2023-0 Yes [id number] 100mg Take 1 Univers (NEURONTIN) 6-16 capsule [...] Branch at 1815, STAT clindamycin 2022- Yes [id number] 300mg Take 1 Univers 300 mg 08-06 capsule by ity of capsule 00:00: 04:59 mouth in [place] 00 :00 [facility] and 1 capsule at noon and 1 capsule in the evening. Do all this for 10 days. sulfamethox 2022- Yes [id number] 1{tbl} Take 1 Univers azole-trime 08-06-17 tablet by it y of thoprim 00:00: 04:59 mouth [place] 800-160 mg 00 :00 every 12 Medic al per tablet (twelve) Branc h hours for 10 days. clindamycin 2022- Yes [id number] 300mg Take 1 Univers 300 mg 08-06 capsule by ity of capsule 00:00: 04:59 mouth in [place] 00 :00 [facility] and 1 capsule at noon and 1 capsule in the evening. Do all this for 10 days. sulfamethox 2022- Yes [id number] 1{tbl} Take 1 Univers azole-trime 08-0617 tablet by it y of thoprim 00:00: 04:59 mouth [place] 800-160 mg 00 :00 every 12 Medic al per tablet (twelve) Branc h hours for 10 days. clindamycin 2022- Yes [id number] 300mg Take 1 Univers 300 mg 08-06 capsule by ity of capsule 00:00: 04:59 mouth in [place] 00 :00 [facility] and 1 capsule at noon and 1 capsule in the evening. Do all this for 10 days. sulfamethox 2022- Yes [id number] 1{tbl} Take 1 Univers azole-trime -08 06-17 tablet by it y of thoprim 00:00: 04:59 mouth [place] 800-160 mg 00 :00 every 12 Medic al per tablet (twelve) Branc h hours for 10 days. clindamycin 2022- Yes [id number] 300mg Take 1 Univers 300 mg 08-06-17 capsule by ity of capsule 00:00: 04:59 mouth in [place] 00 :00 the [facility] morning Branch and 1 capsule at noon and 1 capsule in the evening. Do all this for 10 days. sulfamethox 2022- Yes [id number] 1{tbl} Take 1 Univers azole-trime 6-08 06-17 tablet by it y of thoprim 00:00: 04:59 mouth [place] 800-160 mg 00 :00 every 12 Medic al per tablet (twelve) Branc h hours for 10 days. clindamycin 2022- No [id number] 300mg Take 1 Univers 300 mg 08-06- capsule by ity of capsule 00:00: 04:59 mouth in [place] 00 :00 the [facility] morning Branch and 1 capsule at noon and 1 capsule in the evening. Do all this for 10 days. sulfamethox 2022- No [id number] 1{tbl} Take 1 Univers azole-trime -08 06-17 tablet by it y of thoprim 00:00: 04:59 mouth [place] 800-160 mg 00 :00 every 12 Medic al per tablet (twelve) Branc h hours for 10 days. clindamycin 2022- No [id number] 300mg Take 1 Univers 300 mg 08-06- capsule by ity of capsule 00:00: 04:59 mouth in [place] 00 :00 the [facility] Branch and 1 capsule at noon and 1 capsule in the evening. Do all this for 10 days. sulfamethox 2022- No [id number] 1{tbl} Take 1 Univers azole-trime -08 06-17 [...] IV ity of (CYKLOKAPRO 04:00: 05:33 [place], [place] N) 1,000 mg 00 :00 ONCE, 1 [...] 07-01 IV ity of (PHENERGAN) 16:28: 17:40 [place], [place] 12.5 mg in 29 :00 PRN, 1 Medical NaCl 0.9% dose, Branch (NS) 50 mL Starting IV on Fri piggyback 07/01/22 at 1128, Until Discontinu ed, Routine, Nausea and Vomiting (N/V), PACU bupivacaine 2022- No PRN, Unive rs (preserv 07-01 Starting ity of free) 15:09: 16:28 on Fri [place] (SENSORCAIN 00 :16 07/01/22 at Med ical [...] tablet by ity of 14:57: mouth in [place] [address] the Medical morning Branch and 1 tablet at noon and 1 tablet in the evening. lisinopril 2023-0 Yes Take by Univ ers 10 mg 5-01 mouth ity of tablet 14:57: daily. [address] albuterol 2023-0 Yes 1.25mg Use 3 mL Un lala 1.25 mg/3 5-01 as ity of mL 14:57: directed [place] nebulizer every 6 Medical solution (six) Branch hours as needed for Wheezing. ALPRAZolam 2023-0 Yes 1mg Take 1 Unive rs 1 mg tablet 5-01 tablet by ity of 14:57: mouth in [place] [address] the Medical morning Branch and 1 tablet at noon and 1 tablet in the evening. lisinopril 2023-0 Yes Take by Univ ers 10 mg 5-01 mouth ity of tablet 14:57: daily. [address] albuterol 2023-0 Yes 1.25mg Use 3 mL Un lala 1.25 mg/3 5-01 as ity of mL 14:57: directed [place] nebulizer every 6 Medical solution (six) Branch hours as needed for Wheezing. ALPRAZolam 2023-0 Yes 1mg Take 1 Unive rs 1 mg tablet 5-01 tablet by ity of 14:57: mouth in [place] [address] the [facility] morning [place]ia and 1 tablet at noon and 1 tablet in the evening. lisinopril 2023-0 Yes Take by Univ ers 10 mg 5-01 mouth ity of tablet 14:57: daily. [address] albuterol 2023-0 Yes 1.25mg Use 3 mL Un lala 1.25 mg/3 5-01 as ity of mL 14:57: directed [place] nebulizer every 6 Medical solution (six) Branch hours as needed for Wheezing. ALPRAZolam 2023-0 Yes 1mg Take 1 Unive rs 1 mg tablet 5-01 tablet by ity of 14:57: mouth in [place] [address] the [facility] morning [place] and 1 tablet at noon and 1 tablet in the evening. lisinopril 2023-0 Yes Take by Univ ers 10 mg 5-01 mouth ity of tablet 14:57: daily. [address] albuterol 2023-0 Yes 1.25mg Use 3 mL Un lala 1.25 mg/3 5-01 as ity of mL 14:57: directed [place] nebulizer 32 every 6 Medical solution (six) Branch hours as needed for Wheezing. ALPRAZolam 2023-0 Yes 1mg Take 1 Unive rs 1 mg tablet 5-01 tablet by ity of 14:57: mouth in [place] [address] the Medical morning Branch and 1 tablet at noon and 1 tablet in the evening. lisinopril 2023-0 Yes Take by Univ ers 10 mg 5-01 mouth ity of tablet 14:57: daily. [address] albuterol 2023-0 Yes 1.25mg Use 3 mL Un lala 1.25 mg/3 5-01 as ity of mL 14:57: directed [place] nebulizer 32 every 6 Medical solution (six) Branch hours as needed for Wheezing. ALPRAZolam 2023-0 Yes 1mg Take 1 Unive rs 1 mg tablet 5-01 tablet by ity of 14:57: mouth in [address] and 1 tablet at noon and 1 tablet in the evening. lisinopril 2023-0 Yes Take by Univ ers 10 mg 5-01 mouth ity of tablet 14:57: daily. [address] albuterol 2023-0 Yes 1.25mg Use 3 mL Un lala 1.25 mg/3 5-01 as ity of mL 14:57: directed [place] nebulizer 32 every 6 Medical solution (six) Branch hours as needed for Wheezing. ALPRAZolam 2023-0 Yes 1mg Take 1 Unive rs 1 mg tablet 5-01 tablet by ity of 14:57: mouth in [place] [address] the [facility] morning Alicia and 1 tablet at noon and 1 tablet in the evening. lisinopril 2023-0 Yes Take by Univ ers 10 mg 5-01 mouth ity of tablet 14:57: daily. [address] albuterol 2023-0 Yes 1.25mg Use 3 mL Un lala 1.25 mg/3 5-01 as ity of mL 14:57: directed [place] nebulizer 32 every 6 Medical solution (six) Branch hours as needed for Wheezing. ALPRAZolam 2023-0 Yes 1mg Take 1 Unive rs 1 mg tablet 5-01 tablet by ity of 14:57: mouth in [address] Medical morning Branch and 1 tablet at noon and 1 tablet in the evening. lisinopril 2023-0 Yes Take by Univ ers 10 mg 5-01 mouth ity of tablet 14:57: daily. [address] albuterol 2023-0 Yes 1.25mg Use 3 mL Un lala 1.25 mg/3 5-01 as ity of mL 14:57: directed [place] nebulizer every 6 Medical solution (six) Branch hours as needed for Wheezing. ALPRAZolam 2023-0 Yes 1mg Take 1 Unive rs 1 mg tablet 5-01 tablet by ity of 14:57: mouth in [address] morning Alicia and 1 tablet at noon and 1 tablet in the evening. lisinopril 2023-0 Yes Take by Univ ers 10 mg 5-01 mouth ity of tablet 14:57: daily. [address] albuterol 2023-0 Yes 1.25mg Use 3 mL Un lala 1.25 mg/3 5-01 as ity of mL 14:57: directed [place] nebulizer every 6 Medical solution (six) Branch hours as needed for Wheezing. ALPRAZolam 3-0 Yes 1mg Take 1 Unive rs 1 mg tablet 5-01 tablet by ity of 14:57: mouth in [address] and 1 tablet at noon and 1 tablet in the evening. lisinopril 2023-0 Yes Take by Univ ers 10 mg 5-01 mouth ity of tablet 14:57: daily. [address] albuterol 2023-0 Yes 1.25mg Use 3 mL Un lala 1.25 mg/3 5-01 as ity of mL 14:57: directed [place] nebulizer every 6 Medical solution (six) Branch hours as needed for Wheezing. ALPRAZolam 2023-0 Yes 1mg Take 1 Unive rs 1 mg tablet 5-01 tablet by ity of 14:57: mouth in [address] morning [place]ia and 1 tablet at noon and 1 tablet in the evening. lisinopril 2023-0 Yes Take by Univ ers 10 mg 5-01 mouth ity of tablet 14:57: daily. [address] albuterol 2023-0 Yes 1.25mg Use 3 mL Un lala 1.25 mg/3 5-01 as ity of mL 14:57: directed [place] nebulizer 32 every 6 Medical solution (six) Branch hours as needed for Wheezing. ALPRAZolam 2023-0 Yes 1mg Take 1 Unive rs 1 mg tablet 5-01 tablet by ity of 14:57: mouth in [place] [address] the [facility] morning Branch and 1 tablet at noon and 1 tablet in the evening. lisinopril 2023-0 Yes Take by Univ ers 10 mg 5-01 mouth ity of tablet 14:57: daily. [address] Branch albuterol 2023-0 Yes 1.25mg Use 3 mL Un lala 1.25 mg/3 5-01 as ity of mL 14:57: directed [place] nebulizer 32 every 6 Medical solution (six) Branch hours as needed for Wheezing. ALPRAZolam 2023-0 Yes 1mg Take 1 Unive rs 1 mg tablet 5-01 tablet by ity of 14:57: mouth in [place] [address] the [facility] morning Branch and 1 tablet at noon and 1 tablet in the evening. lisinopril 2023-0 Yes Take by Univ ers 10 mg 5-01 mouth ity of tablet 14:57: daily. [address] Branch albuterol 2023-0 Yes 1.25mg Use 3 mL Un lala 1.25 mg/3 5-01 as ity of mL 14:57: directed [place] nebulizer every 6 Medical solution (six) Branch hours as needed for Wheezing. ALPRAZolam 2023-0 Yes 1mg Take 1 Unive rs 1 mg tablet 5-01 tablet by ity of 14:57: mouth in [place] [address] the [facility] morning Branch and 1 tablet at noon and 1 tablet in the evening. lisinopril 2023-0 Yes Take by Univ ers 10 mg 5-01 mouth ity of tablet 14:57: daily. [address] Branch albuterol 2023-0 Yes 1.25mg Use 3 mL Un lala 1.25 mg/3 5-01 as ity of mL 14:57: directed [place] nebulizer every 6 Medical solution (six) Branch hours as needed for Wheezing. ALPRAZolam 2023-0 Yes 1mg Take 1 Unive rs 1 mg tablet 5-01 tablet by ity of 14:57: mouth in [place] [address] the Medical morning Branch and 1 tablet at noon and 1 tablet in the evening. lisinopril 2023-0 Yes Take by Univ ers 10 mg 5-01 mouth ity of tablet 14:57: daily. [address] albuterol 2023-0 Yes 1.25mg Use 3 mL Un lala 1.25 mg/3 5-01 as ity of mL 14:57: directed [place] nebulizer every 6 Medical solution (six) Branch hours as needed for Wheezing. ALPRAZolam 2023-0 Yes 1mg Take 1 Unive rs 1 mg tablet 5-01 tablet by ity of 14:57: mouth in [place] [address] the [facility] morning Branch and 1 tablet at noon and 1 tablet in the evening. lisinopril 2023-0 Yes Take by Univ ers 10 mg 5-01 mouth ity of tablet 14:57: daily. [address] albuterol 2023-0 Yes 1.25mg Use 3 mL Un lala 1.25 mg/3 5-01 as ity of mL 14:57: directed [place] nebulizer every 6 Medical solution (six) Branch hours as needed for Wheezing. ALPRAZolam 2023-0 Yes 1mg Take 1 Unive rs 1 mg tablet 5-01 tablet by ity of 14:57: mouth in [address] morning [place]ia and 1 tablet at noon and 1 tablet in the evening. lisinopril 2023-0 Yes Take by Univ ers 10 mg 5-01 mouth ity of tablet 14:57: daily. [address] albuterol 2023-0 Yes 1.25mg Use 3 mL Un lala 1.25 mg/3 5-01 as ity of mL 14:57: directed [place] nebulizer every 6 Medical solution (six) Branch hours as needed for Wheezing. ALPRAZolam 2023-0 Yes 1mg Take 1 Unive rs 1 mg tablet 5-01 tablet by ity of 14:57: mouth in [place] [address] the [facility] morning [place]ia and 1 tablet at noon and 1 tablet in the evening. lisinopril 2023-0 Yes Take by Univ ers 10 mg 5-01 mouth ity of tablet 14:57: daily. [address] albuterol 2023-0 Yes 1.25mg Use 3 mL Un lala 1.25 mg/3 5-01 as ity of mL 14:57: directed [place] nebulizer 32 every 6 Medical solution (six) Branch hours as needed for Wheezing. ALPRAZolam 2023-0 Yes 1mg Take 1 Unive rs 1 mg tablet 5-01 tablet by ity of 14:57: mouth in [place] [address] the Medical morning Branch and 1 tablet at noon and 1 tablet in the evening. lisinopril 2023-0 Yes Take by Univ ers 10 mg 5-01 mouth ity of tablet 14:57: daily. [address] Branch albuterol 2023-0 Yes 1.25mg Use 3 mL Un lala 1.25 mg/3 5-01 as ity of mL 14:57: directed [place] nebulizer 32 every 6 Medical solution (six) Branch hours as needed for Wheezing. ALPRAZolam 2023-0 Yes 1mg Take 1 Unive rs 1 mg tablet 5-01 tablet by ity of 14:57: mouth in [place] [address] the Medical morning Branch and 1 tablet at noon and 1 tablet in the evening. lisinopril 2023-0 Yes Take by Univ ers 10 mg 5-01 mouth ity of tablet 14:57: daily. [address] Branch albuterol 2023-0 Yes 1.25mg Use 3 mL Un lala 1.25 mg/3 5-01 as ity of mL 14:57: directed [place] nebulizer every 6 Medical solution (six) Branch hours as needed for Wheezing. ALPRAZolam 2023-0 Yes 1mg Take 1 Unive rs 1 mg tablet 5-01 tablet by ity of 14:57: mouth in [place] [address] the [facility] morning Branch and 1 tablet at noon and 1 tablet in the evening. lisinopril 2023-0 Yes Take by Univ ers 10 mg 5-01 mouth ity of tablet 14:57: daily. [address] Branch albuterol 2023-0 Yes 1.25mg Use 3 mL Un lala 1.25 mg/3 5-01 as ity of mL 14:57: directed [place] nebulizer 32 every 6 Medical solution (six) Branch hours as needed for Wheezing. ALPRAZolam 2023-0 Yes 1mg Take 1 Unive rs 1 mg tablet 5-01 tablet by ity of 14:57: mouth in [place] [address] the Medical morning Branch and 1 tablet at noon and 1 tablet in the evening. lisinopril 2023-0 Yes Take by Univ ers 10 mg 5-01 mouth ity of tablet 14:57: daily. [address] Branch albuterol 2023-0 Yes 1.25mg Use 3 mL Un lala 1.25 mg/3 5-01 as ity of mL 14:57: directed [place] nebulizer 32 every 6 Medical solution (six) Branch hours as needed for Wheezing. ALPRAZolam 2023-0 Yes 1mg Take 1 Unive rs 1 mg tablet 5-01 tablet by ity of 14:57: mouth in [place] [address] the Medical morning Branch and 1 tablet at noon and 1 tablet in the evening. lisinopril 2023-0 Yes Take by Univ ers 10 mg 5-01 mouth ity of tablet 14:57: daily. [address] albuterol 2023-0 Yes 1.25mg Use 3 mL Un lala 1.25 mg/3 5-01 as ity of mL 14:57: directed [place] nebulizer 32 every 6 Medical solution (six) Branch hours as needed for Wheezing. ALPRAZolam 2023-0 Yes 1mg Take 1 Unive rs 1 mg tablet 5-01 tablet by ity of 14:57: mouth in [place] [address] the Medical morning Branch and 1 tablet at noon and 1 tablet in the evening. lisinopril 2023-0 Yes Take by Univ ers 10 mg 5-01 mouth ity of tablet 14:57: daily. [address] Branch albuterol 2023-0 Yes 1.25mg Use 3 mL Un lala 1.25 mg/3 5-01 as ity of mL 14:57: directed [place] nebulizer 32 every 6 Medical solution (six) Branch hours as needed for Wheezing. ALPRAZolam 2023-0 Yes 1mg Take 1 Unive rs 1 mg tablet 5-01 tablet by ity of 14:57: mouth in [place] [address] the Medical morning Branch and 1 tablet at noon and 1 tablet in the evening. lisinopril 2023-0 Yes Take by Univ ers 10 mg 5-01 mouth ity of tablet 14:57: daily. [address] Branch albuterol 2023-0 Yes 1.25mg Use 3 mL Un lala 1.25 mg/3 5-01 as ity of mL 14:57: directed [place] nebulizer 32 every 6 Medical solution (six) Branch hours as needed for Wheezing. ALPRAZolam 2023-0 Yes 1mg Take 1 Unive rs 1 mg tablet 5-01 tablet by ity of 14:57: mouth in [place] [address] the Medical morning Branch and 1 tablet at noon and 1 tablet in the evening. lisinopril 2023-0 Yes Take by Univ ers 10 mg 5-01 mouth ity of tablet 14:57: daily. [address] albuterol 3-0 Yes 1.25mg Use 3 mL Un lala 1.25 mg/3 5-01 as ity of mL 14:57: directed [place] nebulizer every 6 Medical solution (six) Branch hours as needed for Wheezing. ALPRAZolam 3-0 Yes 1mg Take 1 Unive rs 1 mg tablet 5-01 tablet by ity of 14:57: mouth in [place] [address] the Medical morning Branch and 1 tablet at noon and 1 tablet in the evening. lisinopril 2023-0 Yes Take by [facility] ers 10 mg 5-01 mouth ity of tablet 14:57: daily. [address] albuterol 3-0 Yes 1.25mg Use 3 mL Un lala 1.25 mg/3 5-01 as ity of mL 14:57: directed [place] nebulizer every 6 Medical solution (six) Branch hours as needed for Wheezing. ALPRAZolam 3-0 Yes 1mg Take 1 Unive rs 1 mg tablet 5-01 tablet by ity of 14:57: mouth in [place] [address] the [facility] morning [place]ia and 1 tablet at noon and 1 tablet in the evening. lisinopril 3-0 Yes Take by [facility] ers 10 mg 5-01 mouth ity of tablet 14:57: daily. [address] albuterol 3-0 Yes 1.25mg Use 3 mL Un lala 1.25 mg/3 5-01 as ity of mL 14:57: directed [place] nebulizer every 6 Medical solution (six) Branch hours as needed for Wheezing. oxyCODONE-a 0 2022- No 2{tbl} 2 tablet, Univers cetaminophe 07-01 05-01 Oral, ity of n 12:15: 12:07 ONCE, 1 [place] (PERCOCET) 00 :00 dose, On Medic al 5-325 mg 07/01/22 Branc h per tablet at 0715, 2 tablet Routine, DSU Pre-op celecoxib 2022- No 400mg 400 mg, Uni vers (CELEBREX) 07-01 Oral, ity of capsule 400 12:15: 12:07 [place]CE, 1 [place] mg 00 :00 dose, On Medical 07/01/22 Branch at 0715, Routine, DSU Pre-op lactated 2022-0 2022- No 1000mL at 42 [facility] rs ringers IV 07-01 mL/hr, ity of [...] Pre-op lactated 2022- No 1000mL at 42 [facility] rs ringers IV 07-01 mL/hr, ity of infusion 12:15: 12:17 1,000 mL, [place] 1,000 mL 00 :00 IV Medical Infusion, Branch ONCE, 1 dose, On Fri07/01/22 at 0715, Routine, DSU Pre-op omeprazole 2022- No 40mg Take 1 Univ ers 40 mg 07-01 capsule by ity of capsule 09:38: 00:00 mouth in [place] 15 :00 the Medical morning. Branch loratadine 2022- No 10mg Take 1 Univ ers 10 mg 07-01 tablet by ity of tablet 09:38: 00:00 mouth in [place] 15 :00 the Medical morning. Branch aspirin 81 2022-0 3- No 81mg Take 1 Univ ers mg chewable 5-01 05-01 tablet by it y of tablet 09:38: 00:00 mouth in [place] 15 :00 the Medical morning. Branch omeprazole 2022-0 2022- No 40mg Take 1 Univ ers 40 mg 5-01 05- capsule by ity of capsule 09:38: 00:00 mouth in [place] 15 :00 the Medical morning. Branch loratadine 2022-0 2022- No 10mg Take 1 Univ ers 10 mg 5-01 05-01 tablet by ity of tablet 09:38: 00:00 mouth in [place] 15 :00 the Medical morning. Branch aspirin 81 2022-0 2022- No 81mg Take 1 Univ ers mg chewable 5-01 05-01 tablet by it y of tablet 09:38: 00:00 mouth in [place] 15 :00 the Medical morning. Branch ALPRAZolam 3-0 Yes 1mg Take 1 Unive rs 1 mg tablet 5-01 tablet by ity of 09:38: mouth in [address] morning Branch and 1 tablet at noon and 1 tablet in the evening. lisinopril 2023-0 Yes Take by Univ ers 10 mg 5-01 mouth ity of tablet 09:38: daily. [address] albuterol 3-0 Yes 1.25mg Use 3 mL Un lala 1.25 mg/3 5-01 as ity of mL 09:38: directed [place] nebulizer 11 every 6 Medical solution (six) Branch hours as needed for Wheezing. ALPRAZolam 3-0 Yes 1mg Take 1 Unive rs 1 mg tablet 5-01 tablet by ity of 09:38: mouth in [address] morning Branch and 1 tablet at noon and 1 tablet in the evening. lisinopril 2023-0 Yes Take by Univ ers 10 mg 5-01 mouth ity of tablet 09:38: daily. [address] albuterol 3-0 Yes 1.25mg Use 3 mL Un lala 1.25 mg/3 5-01 as ity of mL 09:38: directed [place] nebulizer 11 every 6 Medical solution (six) Branch hours as needed for Wheezing. aspirin 325 2022-0 2023- No [id number] 325mg Take 1 Univers mg tablet [id number] [id number] tablet by ity of 00:: 04:59 mouth in [place] 00 :00 the Medical morning Branch and 1 tablet in the evening. Take with meals. Do all this for 28 days. aspirin 325 2023-0 3- No [id number] 325mg Take 1 [facility] mg tablet 507-30 9100 tablet by ity of 00:00: 04:59 mouth in [place] 00 :00 the [facility] morning Branch and 1 tablet in the evening. Take with meals. Do all this for 28 days. aspirin 325 3-0 3- No [id number] 325mg Take 1 [facility] mg tablet 5-07-30 9100 tablet by ity of 00:00: 04:59 mouth in [place] 00 :00 the [facility] morning [place] and 1 tablet in the evening. Take with meals. Do all this for 28 days. aspirin 325 2022-0 2022- No [id number] 325mg Take 1 [facility] mg tablet 507-30 9100 tablet by ity of 00:: 04:59 mouth in [place] 00 :00 the [facility] morning [place] and 1 tablet in the evening. Take with meals. Do all this for 28 days. aspirin 325 3-0 3- No [id number] 325mg Take 1 [facility] mg tablet 07-0100 tablet by ity of 00:00: 04:59 mouth in [place] 00 :00 the [facility] morning [place] and 1 tablet in the evening. Take with meals. Do all this for 28 days. aspirin 325 3-0 3- No [id number] 325mg Take 1 [facility] mg tablet 07-01 9100 tablet by ity of 00:00: 04:59 mouth in [place] 00 :00 the [facility] morning [place] and 1 tablet in the evening. Take with meals. Do all this for 28 days. aspirin 325 2023-0 2023- No [id number] 325mg Take 1 [facility] mg tablet 507-30 9100 tablet by ity of 00:00: 04:59 mouth in [place] 00 :00 the [facility] morning [place] and 1 tablet in the evening. Take with meals. Do all this for 28 days. aspirin 325 2023-0 2023- No [id number] 325mg Take 1 [facility] mg tablet 5-07-30 9100 tablet by ity of 00:00: 04:59 mouth in [place] 00 :00 the [facility] morning Branch and 1 tablet in the evening. Take with meals. Do all this for 28 days. aspirin 325 2023-0 2023- No [id number] 325mg Take 1 [facility] mg tablet 5-03 07- 9100 tablet by ity of 00:00: 04:59 mouth in [place] 00 :00 the [facility] morning [place] and 1 tablet in the evening. Take with meals. Do all this for 28 days. aspirin 325 2023-0 2023- No [id number] 325mg Take 1 [facility] mg tablet 5-03 07- 9100 tablet by ity of 00:00: 04:59 mouth in [place] 00 :00 the [facility] morning [place] and 1 tablet in the evening. Take with meals. Do all this for 28 days. aspirin 325 2023-0 2023- No [id number] 325mg Take 1 [facility] mg tablet 5-07-30 9100 tablet by ity of 00:: 04:59 mouth in [place] 00 :00 the [facility] and 1 tablet in the evening. Take with meals. Do all this for 28 days. aspirin 325 2023-0 2023- No [id number] 325mg Take 1 [facility] mg tablet 07-01 9100 tablet by ity of 00:: :59 mouth in [place] 00 :00 the [facility] and 1 tablet in the evening. Take with meals. Do all this for 28 days. aspirin 325 2023-0 2023- No [id number] 325mg Take 1 [facility] mg tablet 507-30 9100 tablet by ity of 00:00: 04:59 mouth in [place] 00 :00 the [facility] and 1 tablet in the evening. Take with meals. Do all this for 28 days. aspirin 325 2023-0 2023- No [id number] 325mg Take 1 [facility] mg tablet 5-03 07- 9100 tablet by ity of 00:00: 04:59 mouth in [place] 00 :00 the [facility] and 1 tablet in the evening. Take with meals. Do all this for 28 days. aspirin 325 2023-0 2023- No [id number] 325mg Take 1 [facility] mg tablet 5-03 07- 9100 tablet by ity of 00:00: 04:59 mouth in [place] 00 :00 the [facility] and 1 tablet in the evening. Take with meals. Do all this for 28 days. aspirin 325 2023-0 2022- No [id number] 325mg Take 1 [facility] mg tablet 5-03 07-30 9100 tablet by ity of 00:00: 04:59 mouth in [place] 00 :00 the [facility] and 1 tablet in the evening. Take with meals. Do all this for 28 days. aspirin 325 2022-0 202- No [id number] 325mg Take 1 [facility] mg tablet 5-03 07- 9100 tablet by ity of 00:00: 04:59 mouth in [place] 00 :00 the [facility] morning [place] and 1 tablet in the evening. Take with meals. Do all this for 28 days. aspirin 325 2022-0 2022- No [id number] 325mg Take 1 [facility] mg tablet 5-03 07- 9100 tablet by ity of 00:00: 04:59 mouth in [place] 00 :00 the [facility] and 1 tablet in the evening. Take with meals. Do all this for 28 days. aspirin 325 2022-0 2022- No [id number] 325mg Take 1 [facility] mg tablet 5-03 07- 9100 tablet by ity of 00:00: 04:59 mouth in [place] 00 :00 the [facility] and 1 tablet in the evening. Take with meals. Do all this for 28 days. aspirin 325 2022-0 2022- No [id number] 325mg Take 1 [facility] mg tablet 507-30 9100 tablet by ity of 00:00: 04:59 mouth in [place] 00 :00 the [facility] and 1 tablet in the evening. Take [...] by ity of capsule 15:48: mouth in [place] [address] the Medical morning. Branch omeprazole 2023-0 Yes 40mg Take 1 Unive rs 40 mg 4-17 capsule by ity of capsule 15:48: mouth in [place] [address] the Medical morning. Branch omeprazole 2023-0 Yes 40mg Take 1 Unive rs 40 mg 4-17 capsule by ity of capsule 15:48: mouth in [place] [address] the Medical morning. Branch omeprazole 2023-0 Yes 40mg Take 1 Unive rs 40 mg 4-17 capsule by ity of capsule 15:48: mouth in [place] [address] the Medical morning. Branch ALPRAZolam 2023-0 Yes 1mg Take 1 Unive rs 1 mg tablet 4-17 tablet by ity of 15:46: mouth in [place] [address] the Medical morning Branch and 1 tablet at noon and 1 tablet in the evening. loratadine 2023-0 Yes 10mg Take 1 Unive rs 10 mg 4-17 tablet by ity of tablet 15:46: mouth in [place] [address] the Medical morning. Branch aspirin 81 3-0 Yes 81mg Take 1 Unive rs mg chewable 4-17 tablet by ity of tablet 15:46: mouth in [place] [address] the Medical morning. Branch lisinopril 3-0 Yes Take by Univ ers 10 mg 4-17 mouth ity of tablet 15:46: daily. [address] albuterol 3-0 Yes 1.25mg Use 3 mL Un lala 1.25 mg/3 4-17 as ity of mL 15:46: directed [place] nebulizer every 6 Medical solution (six) Branch hours as needed for Wheezing. ALPRAZolam 3-0 Yes 1mg Take 1 Unive rs 1 mg tablet 4-17 tablet by ity of 15:46: mouth in [place] [address] the Medical morning Branch and 1 tablet at noon and 1 tablet in the evening. loratadine 2023-0 Yes 10mg Take 1 Unive rs 10 mg 4-17 tablet by ity of tablet 15:46: mouth in [place] [address] the Medical morning. Branch aspirin 81 3-0 Yes 81mg Take 1 Unive rs mg chewable 4-17 tablet by ity of tablet 15:46: mouth in [place] [address] the Medical morning. Branch lisinopril 3-0 Yes Take by Univ ers 10 mg 4-17 mouth ity of tablet 15:46: daily. [place] [address] Medical Branch albuterol 3-0 Yes 1.25mg Use 3 mL Un lala 1.25 mg/3 4-17 as ity of mL 15:46: directed [place] nebulizer 05 every 6 Medical solution (six) Branch hours as needed for Wheezing. ALPRAZolam 2023-0 Yes 1mg Take 1 Unive rs 1 mg tablet 4-17 tablet by ity of 15:46: mouth in [place] [address] the Medical morning Branch and 1 tablet at noon and 1 tablet in the evening. loratadine 2023-0 Yes 10mg Take 1 Unive rs 10 mg 4-17 tablet by ity of tablet 15:46: mouth in [place] [address] the Medical morning. Branch aspirin 81 3-0 Yes 81mg Take 1 Unive rs mg chewable 4-17 tablet by ity of tablet 15:46: mouth in [place] [address] the Medical morning. Branch lisinopril 3-0 Yes Take by Univ ers 10 mg 4-17 mouth ity of tablet 15:46: daily. [address] Branch albuterol 3-0 Yes 1.25mg Use 3 mL Un lala 1.25 mg/3 4-17 as ity of mL 15:46: directed [place] nebulizer 05 every 6 Medical solution (six) Branch hours as needed for Wheezing. ALPRAZolam 3-0 Yes 1mg Take 1 Unive rs 1 mg tablet 4-17 tablet by ity of 15:46: mouth in [place] [address] the [facility] morning Branch and 1 tablet at noon and 1 tablet in the evening. loratadine 2023-0 Yes 10mg Take 1 Unive rs 10 mg 4-17 tablet by ity of tablet 15:46: mouth in [place] [address] the Medical morning. Branch aspirin 81 3-0 Yes 81mg Take 1 Unive rs mg chewable 4-17 tablet by ity of tablet 15:46: mouth in [place] [address] the Medical morning. Branch lisinopril 2023-0 Yes Take by Univ ers 10 mg 4-17 mouth ity of tablet 15:46: daily. [address] Branch albuterol 3-0 Yes 1.25mg Use 3 mL Un lala 1.25 mg/3 4-17 as ity of mL 15:46: directed [place] nebulizer 05 every 6 Medical solution (six) Branch hours as needed for Wheezing. ALPRAZolam 0 Yes 1mg Take 1 Unive rs 1 mg tablet 4-17 tablet by ity of 15:46: mouth in [place] [address] the Medical morning Branch and 1 tablet at noon and 1 tablet in the evening. loratadine 0 Yes 10mg Take 1 Unive rs 10 mg 4-17 tablet by ity of tablet 15:46: mouth in [place] [address] the Medical morning. Branch aspirin 81 2022-0 Yes 81mg Take 1 Unive rs mg chewable 4-17 tablet by ity of tablet 15:46: mouth in [place] [address] the Medical morning. Branch lisinopril Yes Take by Univ ers 10 mg 4-17 mouth ity of tablet 15:46: daily. [address] Branch albuterol 0 Yes 1.25mg Use 3 mL Un lala 1.25 mg/3 4-17 as ity of mL 15:46: directed [place] nebulizer 05 every 6 Medical solution (six) Branch hours as needed for Wheezing. spironolact 0 Yes 1{tbl} Take 1 Un lala one-hydroch 4-11 tablet by ity of lorothiazid 00:00: mouth in [place] e 25-25 mg 00 the Medical per tablet morning. [facility] spironolact Yes 1{tbl} Take 1 Un lala one-hydroch 4-11 tablet by ity of lorothiazid 00:00: mouth in [place] e 25-25 mg 00 the Medical per tablet morning. [facility] h spironolact 0 Yes 1{tbl} Take 1 Un lala one-hydroch 4-11 tablet by ity of lorothiazid 00:00: mouth in [place] e 25-25 mg 00 the Medical per tablet morning. [facility] h spironolact 2022-0 Yes 1{tbl} Take 1 [...] mg 00 the Medical per tablet morning. [facility] h spironolact 2022-0 Yes 1{tbl} Take 1 Un lala one-hydroch 4-11 tablet by ity of lorothiazid 00:00: mouth in [place] e 25-25 mg 00 the Medical per tablet morning. [facility] spironolact 2022-0 Yes 1{tbl} Take 1 Un lala one-hydroch 4-11 tablet by ity of lorothiazid 00:00: mouth in [place] e 25-25 mg 00 the Medical per tablet morning. [facility] spironolact 2022-0 Yes 1{tbl} Take 1 Un lala one-hydroch 4-11 tablet by ity of lorothiazid 00:00: mouth [place] e 25-25 mg 00 the Medical per tablet morning. [facility] spironolact 2022-0 Yes 1{tbl} Take 1 Un lala one-hydroch 4-11 tablet by ity of lorothiazid 00:00: mouth [place] e 25-25 mg 00 the Medical per tablet morning. [facility] spironolact 2022-0 Yes 1{tbl} Take 1 Un lala one-hydroch 4-11 tablet by ity of lorothiazid 00:00: mouth [place] e 25-25 mg 00 the Medical per tablet morning. [facility] h spironolact 2022-0 Yes 1{tbl} Take 1 Un lala one-hydroch 4-11 tablet by ity of lorothiazid 00:00: mouth [place] 25-25 mg 00 the Medical per tablet morning. [facility] h spironolact 2022-0 Yes 1{tbl} Take 1 [...] mg 00 the Medical per tablet morning. [facility] spironolact 2022-0 Yes 1{tbl} Take 1 Un lala one-hydroch 4-11 tablet by ity of lorothiazid 00:00: mouth [place] 25-25 mg 00 the Medical per tablet morning. [facility] spironolact 2022-0 Yes 1{tbl} Take 1 Un lala one-hydroch 4-11 tablet by ity of lorothiazid 00:00: mouth [place] 25-25 mg 00 the Medical per tablet morning. [facility] spironolact 0 Yes 1{tbl} Take 1 Un alla one-hydroch 4-11 tablet by ity of lorothiazid 00:00: mouth [place] 25-25 mg 00 the Medical per tablet morning. [facility] spironolact 0 Yes 1{tbl} Take 1 Un lala one-hydroch 4-11 tablet by ity of lorothiazid 00:00: mouth [place] 25-25 mg 00 the Medical per tablet morning. [facility] ALPRAZolam Yes 1mg Take 1 Unive rs 1 mg tablet 4-04 tablet by ity of 15:05: mouth in [place] [address] the Medical morning Branch and 1 tablet at noon and 1 tablet in the evening. omeprazole 2022-0 Yes 40mg Take 1 Unive rs 40 mg 4-04 capsule by ity of capsule 15:05: mouth in [place] [address] the Medical morning. Branch loratadine 2022-0 Yes 10mg Take 1 Unive rs 10 mg 4-04 tablet by ity of tablet 15:05: mouth in [place] [address] the Medical morning. Branch aspirin 81 2022-0 Yes 81mg Take 1 Unive rs mg chewable 4-04 tablet by ity of tablet 15:05: mouth in [place] [address] the Medical morning. Branch lisinopril 2022-0 Yes Take by Univ ers 10 mg 4-04 mouth ity of tablet 15:05: daily. [place] [address] Medical Branch albuterol 2022-0 Yes 1.25mg Use 3 mL Un lala 1.25 mg/3 4-04 as ity of mL 15:05: directed [place] nebulizer 28 every 6 Medical solution (six) Branch hours as needed for Wheezing. ALPRAZolam 2023-0 Yes 1mg Take 1 Unive rs 1 mg tablet 4-04 tablet by ity of 15:05: mouth in [place] [address] the Medical morning Branch and 1 tablet at noon and 1 tablet in the evening. omeprazole 2023-0 Yes 40mg Take 1 Unive rs 40 mg 4-04 capsule by ity of capsule 15:05: mouth in [place] [address] the Medical morning. Branch loratadine 2023-0 Yes 10mg Take 1 Unive rs 10 mg 4-04 tablet by ity of tablet 15:05: mouth in [place] [address] the Medical morning. Branch aspirin 81 2023-0 Yes 81mg Take 1 Unive rs mg chewable 4-04 tablet by ity of tablet 15:05: mouth in [place] [address] the Medical morning. Branch lisinopril 3-0 Yes Take by Univ ers 10 mg 4-04 mouth ity of tablet 15:05: daily. [place] [address] Medical Branch albuterol 2023-0 Yes 1.25mg Use 3 mL Un lala 1.25 mg/3 4-04 as ity of mL 15:05: directed [place] nebulizer every 6 Medical solution (six) Branch hours as needed for Wheezing. ALPRAZolam 2023-0 Yes 1mg Take 1 Unive rs 1 mg tablet 4-04 tablet by ity of 15:05: mouth in [place] [address] the Medical morning Branch and 1 tablet at noon and 1 tablet in the evening. omeprazole 2023-0 Yes 40mg Take 1 Unive rs 40 mg 4-04 capsule by ity of capsule 15:05: mouth in [place] [address] the Medical morning. Branch loratadine 2023-0 Yes 10mg Take 1 Unive rs 10 mg 4-04 tablet by ity of tablet 15:05: mouth in [place] [address] the Medical morning. Branch aspirin 81 2023-0 Yes 81mg Take 1 Unive rs mg chewable 4-04 tablet by ity of tablet 15:05: mouth in [place] [address] the Medical morning. Branch lisinopril 2023-0 Yes Take by Univ ers 10 mg 4-04 mouth ity of tablet 15:05: daily. [place] [address] Medical Branch albuterol 2023-0 Yes 1.25mg Use 3 mL Un lala 1.25 mg/3 4-04 as ity of mL 15:05: directed [place] nebulizer 28 every 6 Medical solution (six) Branch hours as needed for Wheezing. ALPRAZolam 2023-0 Yes 1mg Take 1 Unive rs 1 mg tablet 4-04 tablet by ity of 15:05: mouth in [place] [address] the Medical morning Branch and 1 tablet at noon and 1 tablet in the evening. omeprazole 2023-0 Yes 40mg Take 1 Unive rs 40 mg 4-04 capsule by ity of capsule 15:05: mouth in [place] [address] the Medical morning. Branch loratadine 2023-0 Yes 10mg Take 1 Unive rs 10 mg 4-04 tablet by ity of tablet 15:05: mouth in [place] [address] the Medical morning. Branch aspirin 81 2023-0 Yes 81mg Take 1 Unive rs mg chewable 4-04 tablet by ity of tablet 15:05: mouth in [place] [address] the Medical morning. Branch lisinopril 2023-0 Yes Take by Univ ers 10 mg 4-04 mouth ity of tablet 15:05: daily. [place] [address] Medical Branch albuterol 2023-0 Yes 1.25mg Use 3 mL Un lala 1.25 mg/3 4-04 as ity of mL 15:05: directed [place] nebulizer 28 every 6 Medical solution (six) Branch hours as needed for Wheezing. ALPRAZolam 2023-0 Yes 1mg Take 1 Unive rs 1 mg tablet 4-04 tablet by ity of 15:05: mouth in [place] [address] the Medical morning Branch and 1 tablet at noon and 1 tablet in the evening. omeprazole 2023-0 Yes 40mg Take 1 Unive rs 40 mg 4-04 capsule by ity of capsule 15:05: mouth in [place] [address] the Medical morning. Branch loratadine 2023-0 Yes 10mg Take 1 Unive rs 10 mg 4-04 tablet by ity of tablet 15:05: mouth in [place] [address] the Medical morning. Branch aspirin 81 2023-0 Yes 81mg Take 1 Unive rs mg chewable 4-04 tablet by ity of tablet 15:05: mouth in [place] [address] the Medical morning. Branch lisinopril 2023-0 Yes Take by Univ ers 10 mg 4-04 mouth ity of tablet 15:05: daily. [address] Branch albuterol 3-0 Yes 1.25mg Use [...] ity of capsule 00:00: mouth in [address] morning [place] and 1 capsule in the evening. celecoxib 2023-0 Yes 100mg Take 1 Unive rs 100 mg 3-21 capsule by ity of capsule 00:00: mouth in [address] morning [place] and 1 capsule in the evening. celecoxib 2023-0 Yes 100mg Take 1 Unive rs 100 mg 3-21 capsule by ity of capsule 00:00: mouth in [address] and 1 capsule in the evening. celecoxib 2023-0 Yes 100mg Take 1 Unive rs 100 mg 3-21 capsule by ity of capsule 00:00: mouth in [address] morning [place] and 1 capsule in the evening. celecoxib 2023-0 Yes 100mg Take 1 Unive rs 100 mg 3-21 capsule by ity of capsule 00:00: mouth in [address] morning [place] and 1 capsule in the evening. celecoxib 2023-0 Yes 100mg Take 1 Unive rs 100 mg 3-21 capsule by ity of capsule 00:00: mouth in [address] and 1 capsule in the evening. celecoxib 2023-0 Yes 100mg Take 1 Unive rs 100 mg 3-21 capsule by ity of capsule 00:00: mouth in [address] and 1 capsule in the evening. celecoxib 2023-0 Yes 100mg Take 1 Unive rs 100 mg 3-21 capsule by ity of capsule 00:00: mouth in [address] Medical morning [place] and 1 capsule in the evening. celecoxib 2023-0 Yes 100mg Take 1 Unive rs 100 mg 3-21 capsule by ity of capsule 00:00: mouth in [place] [address] the Medical morning [place] and 1 capsule in the evening. celecoxib 2023-0 Yes 100mg Take 1 Unive rs 100 mg 3-21 capsule by ity of capsule 00:00: mouth in [place] [address] the Medical morning [place] and 1 capsule in the evening. celecoxib 2023-0 Yes 100mg Take 1 Unive rs 100 mg 3-21 capsule by ity of capsule 00:00: mouth in [address] Medical morning [place] and 1 capsule in the evening. celecoxib 2023-0 Yes 100mg Take 1 Unive rs 100 mg 3-21 capsule by ity of capsule 00:00: mouth in [address] morning [place] and 1 capsule in the evening. celecoxib 2023-0 Yes 100mg Take 1 Unive rs 100 mg 3-21 capsule by ity of capsule 00:00: mouth in [address] morning [place] and 1 capsule in the evening. celecoxib 2023-0 Yes 100mg Take 1 Unive rs 100 mg 3-21 capsule by ity of capsule 00:00: mouth in [address] morning [place] and 1 capsule in the evening. celecoxib 2023-0 Yes 100mg Take 1 Unive rs 100 mg 3-21 capsule by ity of capsule 00:00: mouth in [address] morning [place] and 1 capsule in the evening. celecoxib 2023-0 Yes 100mg Take 1 Unive rs 100 mg 3-21 capsule by ity of capsule 00:00: mouth in [address] morning [place] and 1 capsule in the evening. celecoxib 2023-0 Yes 100mg Take 1 Unive rs 100 mg 3-21 capsule by ity of capsule 00:00: mouth in [address] morning [place] and 1 capsule in the evening. celecoxib 2023-0 Yes 100mg Take 1 Unive rs 100 mg 3-21 capsule by ity of capsule 00:00: mouth in [address] morning [place] and 1 capsule in the evening. celecoxib 2023-0 Yes 100mg Take 1 Unive rs 100 mg 3-21 capsule by ity of capsule 00:00: mouth in [address] morning [place] and 1 capsule in the evening. celecoxib 2023-0 Yes 100mg Take 1 Unive rs 100 mg 3-21 capsule by ity of capsule 00:00: mouth in [place] [address] the Medical morning Branch and 1 capsule in the evening. celecoxib 2023-0 Yes 100mg Take 1 Unive rs 100 mg 3-21 capsule by ity of capsule 00:00: mouth in [place] [address] the Medical morning Branch and 1 capsule in the evening. celecoxib 2023-0 Yes 100mg Take 1 Unive rs 100 mg 3-21 capsule by ity of capsule 00:00: mouth in [place] [address] the Medical morning Branch and 1 capsule in the evening. celecoxib 2023-0 Yes 100mg Take 1 Unive rs 100 mg 3-21 capsule by ity of capsule 00:00: mouth in [place] [address] the Medical morning Branch and 1 capsule in the evening. celecoxib 2023-0 Yes 100mg Take 1 Unive rs 100 mg 3-21 capsule by ity of capsule 00:00: mouth in [place] [address] the Medical morning [place] and 1 capsule in the evening. celecoxib 2023-0 Yes 100mg Take 1 Unive rs 100 mg 3-21 capsule by ity of capsule 00:00: mouth in [address] Medical morning [place] and 1 capsule in the evening. celecoxib 2023-0 Yes 100mg Take 1 Unive rs 100 mg 3-21 capsule by ity of capsule 00:00: mouth in [place] [address] the Medical morning [place] and 1 capsule in the evening. celecoxib 2023-0 Yes 100mg Take 1 Unive rs 100 mg 3-21 capsule by ity of capsule 00:00: mouth in [place] [address] the Medical morning [place] and 1 capsule in the evening. celecoxib 2023-0 Yes 100mg Take 1 Unive rs 100 mg 3-21 capsule by ity of capsule 00:00: mouth in [address] Medical morning [place] and 1 capsule in the evening. celecoxib 2023-0 Yes 100mg Take 1 Unive rs 100 mg 3-21 capsule by ity of capsule 00:00: mouth in [place] [address] the Medical morning [place] and 1 capsule in the evening. celecoxib 2023-0 Yes 100mg Take 1 Unive rs 100 mg 3-21 capsule by ity of capsule 00:00: mouth in [address] Medical morning [place] and 1 capsule in the evening. celecoxib 2023-0 Yes 100mg Take 1 Unive rs 100 mg 3-21 capsule by ity of capsule 00:00: mouth in [place] 00 the Medical morning Branch and 1 capsule in the evening. celecoxib 2023-0 Yes 100mg Take 1 Unive rs 100 mg 3-21 capsule by ity of capsule 00:00: mouth in [place] [address] the Medical morning [place] and 1 capsule in the evening. celecoxib 2023-0 Yes 100mg Take 1 Unive rs 100 mg 3-21 capsule by ity of capsule 00:00: mouth in [place] [address] the Medical morning [place] and 1 capsule in the evening. celecoxib 2023-0 Yes 100mg Take 1 Unive rs 100 mg 3-21 capsule by ity of capsule 00:00: mouth in [place] [address] the Medical morning [place] and 1 capsule in the evening. celecoxib 2023-0 Yes 100mg Take 1 Unive rs 100 mg 3-21 capsule by ity of capsule 00:00: mouth in [place] [address] the [facility] morning [place] and 1 capsule in the evening. celecoxib 2023-0 Yes 100mg Take 1 Unive rs 100 mg 3-21 capsule by ity of capsule 00:00: mouth in [place] [address] the [facility] morning [place] and 1 capsule in the evening. celecoxib 2023-0 Yes 100mg Take 1 Unive rs 100 mg 3-21 capsule by ity of capsule 00:00: mouth in [place] [address] the [facility] morning [place] and 1 capsule in the evening. celecoxib 2023-0 Yes 100mg Take 1 Unive rs 100 mg 3-21 capsule by ity of capsule 00:00: mouth in [place] [address] the [facility] morning [place] and 1 capsule in the evening. celecoxib 2023-0 Yes 100mg Take 1 Unive rs 100 mg 3-21 capsule by ity of capsule 00:00: mouth in [place] [address] the [facility] and 1 capsule in the evening. celecoxib 2023-0 Yes 100mg Take 1 Unive rs 100 mg 3-21 capsule by ity of capsule 00:00: mouth in [place] [address] the [facility] morning [place] and 1 capsule in the evening. oxyCODONE-a 2022- No 2{tbl} Uni vers cetaminophe 05-20 ity of n 05:00: 16:59 [place] (PERCOCET) 00 :00 Medical 5-325 mg Branch per tablet 2 tablet tranexamic 2022-0 2022- No 1000mg Univ ers acid 05-2020 ity of (CYKLOKAPRO 05:00: 16:59 [place] N) 1,000 mg 00 :00 Medical in [...] cetaminophe 05-20 ity of n 05:00: 16:59 [place] (PERCOCET) 00 :00 Medical 5-325 mg Branch per tablet 2 tablet tranexamic 0 2022- No 1000mg Univ ers acid 05-2020 ity of (CYKLOKAPRO 05:00: 16:59 [place] N) 1,000 mg 00 :00 Medical in NaCl Branch 0.9% (NS) 250 mL piggyback predniSONE 3-0 Yes 10mg Take 1 Unive rs 10 mg 3-13 tablet by ity of tablet 00:00: mouth in [place] 00 the Medical morning. Branch predniSONE 2023-0 Yes 10mg Take 1 Unive rs 10 mg 3-13 tablet by ity of tablet 00:00: mouth in [place] 00 the Medical morning. Branch predniSONE 2023-0 Yes 10mg Take 1 Unive rs 10 mg 3-13 tablet by ity of tablet 00:00: mouth in [place] 00 the Medical morning. Branch predniSONE 2023-0 Yes 10mg Take 1 Unive rs 10 mg 3-13 tablet by ity of tablet 00:00: mouth in [place] 00 the Medical morning. Branch predniSONE 2023-0 Yes 10mg Take 1 Un[facility] rs 10 mg 3-13 tablet by ity of tablet 00:00: mouth in [place] 00 the Medical morning. Branch predniSONE 2023-0 Yes 10mg Take 1 [facility] rs 10 mg 3-13 tablet by ity of tablet 00:00: mouth in [place] 00 the Medical morning. Branch predniSONE 2023-0 Yes 10mg Take 1 Un[facility] rs 10 mg 3-13 tablet by ity of tablet 00:00: mouth in [place] 00 the Medical morning. Branch predniSONE 2023-0 Yes 10mg Take 1 [facility]ive rs 10 mg 3-13 tablet by ity of tablet 00:00: mouth in [place] 00 the Medical morning. Branch predniSONE 2023-0 Yes 10mg Take 1 [facility] rs 10 mg 3-13 tablet by ity of tablet 00:00: mouth in [place] 00 the Medical morning. Branch predniSONE 2023-0 Yes 10mg Take 1 [facility] rs 10 mg 3-13 tablet by ity of tablet 00:00: mouth in [place] 00 the Medical morning. Branch predniSONE 2023-0 2023- No 10mg Take 1 Univ ers 10 mg 05-13 tablet by ity of tablet 00:00: 00:00 mouth in [place] 00 :00 the Medical morning. Branch predniSONE 2023-0 2023- No 10mg Take 1 Univ ers 10 mg 05-13 tablet by ity of tablet 00:00: 00:00 mouth in [place] 00 :00 the Medical morning. Branch ipratropium [...] at 1830, Routine diclofenac 2022-0 3- No [id number] 75mg Take 1 [facility] 75 mg EC 05-08 9100 tablet by ity o f tablet 00:00: 04:59 mouth in [place] 00 :00 the [facility] morning [place] and 1 tablet in the evening. Take with meals. Do all this for 30 days. diclofenac 2022-0 3- No [id number] 75mg Take 1 [facility] 75 mg EC 05-08 9100 tablet by ity o f tablet 00:00: 04:59 mouth in [place] 00 :00 the [facility] and 1 tablet in the evening. Take with meals. Do all this for 30 days. diclofenac 2022-0 3- No [id number] 75mg Take 1 [facility] 75 mg EC 05-08 9100 tablet by ity o f tablet 00:00: 04:59 mouth in [place] 00 :00 the [facility] and 1 tablet in the evening. Take with meals. Do all this for 30 days. diclofenac 2022-0 3- No [id number] 75mg Take 1 [facility] 75 mg EC 05-08 9100 tablet by ity o f tablet 00:00: 04:59 mouth in [place] 00 :00 the [facility] and 1 tablet in the evening. Take with meals. Do all this for 30 days. diclofenac 2022-0 2023- No [id number] 75mg Take 1 [facility] 75 mg EC 05-08 9100 tablet by ity o f tablet 00:00: 04:59 mouth in [place] 00 :00 the [facility] and 1 tablet in the evening. Take with meals. Do all this for 30 days. diclofenac 2022-0 2023- No [id number] 75mg Take 1 [facility] 75 mg EC 05-08 9100 tablet by ity o f tablet 00:00: 04:59 mouth in [place] 00 :00 the Medical morning Branch and 1 tablet in the evening. Take with meals. Do all this for 30 days. diclofenac 2023-0 2023- No [id number] 75mg Take 1 [facility] 75 mg EC 05-08 9100 tablet by ity o f tablet 00:00: 04:59 mouth in [place] 00 :00 the Medical morning Branch and 1 tablet in the evening. Take with meals. Do all this for 30 days. diclofenac 2023-0 2023- No [id number] 75mg Take 1 [facility] 75 mg EC 05-08 9100 tablet by ity o f tablet 00:00: 04:59 mouth in [place] 00 :00 the Medical morning Branch and 1 tablet in the evening. Take with meals. Do all this for 30 days. diclofenac 2023-0 2023- No [id number] 75mg Take 1 [facility] 75 mg EC 05-08 9100 tablet by ity o f tablet 00:00: 04:59 mouth in [place] 00 :00 the [facility] morning [place] and 1 tablet in the evening. Take with meals. Do all this for 30 days. diclofenac 3-0 2023- No [id number] 75mg Take 1 [facility] 75 mg EC 05-08 9100 tablet by ity o f tablet 00:00: 04:59 mouth in [place] 00 :00 the [facility] morning [place] and 1 tablet in the evening. Take with meals. Do all this for 30 days. diclofenac 2023-0 2023- No [id number] 75mg Take 1 [facility] 75 mg EC 05-08 9100 tablet by ity o f tablet 00:00: 04:59 mouth in [place] 00 :00 the [facility] morning [place] and 1 tablet in the evening. Take with meals. Do all this for 30 days. diclofenac 2023-0 2023- No [id number] 75mg Take 1 [facility] 75 mg EC 05-08 9100 tablet by ity o f tablet 00:00: 04:59 mouth in [place] 00 :00 the [facility] morning [place] and 1 tablet in the evening. Take [...] mouth ity of tablet 09:39: 00:00 daily. [place] 42 :00 Medical Branch atorvastati 2022-0 3- No 20mg Take 20 mg Univers n 20 mg 2-21 02-21 by mouth ity of tablet 09:39: 00:00 daily. [place] 42 :00 Medical Branch ALPRAZolam 2022-0 Yes 1mg Take 1 mg Un lala 1 mg tablet 2-21 by mouth 3 it y of 08:34: (three) [place] [address] times Medical daily. Branch omeprazole 2022-0 Yes 40mg Take 40 mg U nivers 40 mg 2-21 by mouth ity of capsule 08:34: daily. [address] Branch loratadine 2022-0 Yes 10mg Take 10 mg U nivers 10 mg 2-21 by mouth ity of tablet 08:34: daily. [address] Branch aspirin 81 2022-0 Yes 81mg Take 81 mg U nivers mg chewable 2-21 by mouth ity of tablet 08:34: daily. [address] Branch lisinopril 2022-0 Yes Take by Univ ers 10 mg 2-21 mouth ity of tablet 08:34: daily. [address] Branch albuterol 2022-0 Yes 1{ampul Use 1 Univ ers 1.25 mg/3 2-21 e} Ampule as ity o f mL 08:34: directed [place] nebulizer every 6 Medical solution (six) Branch hours as needed for Wheezing. ALPRAZolam 0 Yes 1mg Take 1 mg Un lala 1 mg tablet 2-21 by mouth 3 it y of 08:34: (three) [address] Medical daily. Branch omeprazole 2022-0 Yes 40mg Take 40 mg U nivers 40 mg 2-21 by mouth ity of capsule 08:34: daily. [address] Branch loratadine 2022-0 Yes 10mg Take 10 mg U nivers 10 mg 2-21 by mouth ity of tablet 08:34: daily. [address] Branch aspirin 81 2022-0 Yes 81mg Take 81 mg U nivers mg chewable 2-21 by mouth ity of tablet 08:34: daily. [address] Branch lisinopril 2022-0 Yes Take by Univ ers 10 mg 2-21 mouth ity of tablet 08:34: daily. [address] Branch albuterol 2022-0 Yes 1{ampul Use 1 Univ ers 1.25 mg/3 2-21 e} Ampule as ity o f mL 08:34: directed [place] nebulizer 43 every 6 Medical solution (six) Branch hours as needed for Wheezing. ALPRAZolam 2022-0 Yes 1mg Take 1 mg Un lala 1 mg tablet 2-21 by mouth 3 it y of 08:34: (three) [place] [address] times Medical daily. Branch omeprazole 2022-0 Yes 40mg Take 40 mg U nivers 40 mg 2-21 by mouth ity of capsule 08:34: daily. [address] Branch loratadine 2022-0 Yes 10mg Take 10 mg U nivers 10 mg 2-21 by mouth ity of tablet 08:34: daily. [address] aspirin 81 2022-0 Yes 81mg Take 81 mg U nivers mg chewable 2-21 by mouth ity of tablet 08:34: daily. [address] Branch lisinopril 2022-0 Yes Take by Univ ers 10 mg 2-21 mouth ity of tablet 08:34: daily. [address] albuterol 2022-0 Yes 1{ampul Use 1 Univ ers 1.25 mg/3 2-21 e} Ampule as ity o f mL 08:34: directed [place] nebulizer 43 every 6 Medical solution (six) Branch hours as needed for Wheezing. ALPRAZolam 2022-0 Yes 1mg Take 1 mg Un lala 1 mg tablet 2-21 by mouth 3 it y of 08:34: (three) [place] [address] times Medical daily. Branch omeprazole 2022-0 Yes 40mg Take 40 mg U nivers 40 mg 2-21 by mouth ity of capsule 08:34: daily. [address] Branch loratadine 2022-0 Yes 10mg Take 10 mg U nivers 10 mg 2-21 by mouth ity of tablet 08:34: daily. [address] aspirin 81 2022-0 Yes 81mg Take 81 mg U nivers mg chewable 2-21 by mouth ity of tablet 08:34: daily. [address] Branch lisinopril 2022-0 Yes Take by Univ ers 10 mg 2-21 mouth ity of tablet 08:34: daily. [address] albuterol 2022-0 Yes 1{ampul Use 1 Univ ers 1.25 mg/3 2-21 e} Ampule as ity o f mL 08:34: directed [place] nebulizer 43 every 6 Medical solution (six) Branch hours as needed for Wheezing. ALPRAZolam 2022-0 Yes 1mg Take 1 mg Un lala 1 mg tablet 2-21 by mouth 3 it y of 08:34: (three) [place] [address] times Medical daily. Branch omeprazole 2022-0 Yes 40mg Take 40 mg U nivers 40 mg 2-21 by mouth ity of capsule 08:34: daily. [address] Branch loratadine 2022-0 Yes 10mg Take 10 mg U nivers 10 mg 2-21 by mouth ity of tablet 08:34: daily. [address] aspirin 81 2022-0 Yes 81mg Take 81 mg U nivers mg chewable 2-21 by mouth ity of tablet 08:34: daily. [address] Branch lisinopril 2022-0 Yes Take by Univ ers 10 mg 2-21 mouth ity of tablet 08:34: daily. [address] Branch albuterol 2022-0 Yes 1{ampul Use 1 Univ ers 1.25 mg/3 2-21 e} Ampule as ity o f mL 08:34: directed [place] nebulizer 43 every 6 Medical solution (six) Branch hours as needed for Wheezing. ALPRAZolam 2022-0 Yes 1mg Take 1 mg Un lala 1 mg tablet 2-21 by mouth 3 it y of 08:34: (three) [place] [address] times Medical daily. Branch omeprazole 2022-0 Yes 40mg Take 40 mg U nivers 40 mg 2-21 by mouth ity of capsule 08:34: daily. [address] Branch loratadine 2022-0 Yes 10mg Take 10 mg U nivers 10 mg 2-21 by mouth ity of tablet 08:34: daily. [address] aspirin 81 2022-0 Yes 81mg Take 81 mg U nivers mg chewable 2-21 by mouth ity of tablet 08:34: daily. [address] lisinopril 2022-0 Yes Take by Univ ers 10 mg 2-21 mouth ity of tablet 08:34: daily. [address] Branch albuterol 2022-0 Yes 1{ampul Use 1 Univ ers 1.25 mg/3 2-21 e} Ampule as ity o f mL 08:34: directed [place] nebulizer 43 every 6 Medical solution (six) Branch hours as needed for Wheezing. ALPRAZolam 2022-0 Yes 1mg Take 1 mg Un lala 1 mg tablet 2-21 by mouth 3 it y of 08:34: (three) [place] [address] times Medical daily. Branch omeprazole 2022-0 Yes 40mg Take 40 mg U nivers 40 mg 2-21 by mouth ity of capsule 08:34: daily. [address] Branch loratadine 2022-0 Yes 10mg Take 10 mg U nivers 10 mg 2-21 by mouth ity of tablet 08:34: daily. [address] Branch aspirin 81 2022-0 Yes 81mg Take 81 mg U nivers mg chewable 2-21 by mouth ity of tablet 08:34: daily. [address] Branch lisinopril 2022-0 Yes Take by Univ ers 10 mg 2-21 mouth ity of tablet 08:34: daily. [address] Branch albuterol 2022-0 Yes 1{ampul Use 1 Univ ers 1.25 mg/3 2-21 e} Ampule as ity o f mL 08:34: directed [place] nebulizer 43 every 6 Medical solution (six) Branch hours as needed for Wheezing. ALPRAZolam 2022-0 Yes 1mg Take 1 mg Un lala 1 mg tablet 2-21 by mouth 3 it y of 08:34: (three) [place] [address] times Medical daily. Branch omeprazole 2022-0 Yes 40mg Take 40 mg U nivers 40 mg 2-21 by mouth ity of capsule 08:34: daily. [address] Branch loratadine 2022-0 Yes 10mg Take 10 mg U nivers 10 mg 2-21 by mouth ity of tablet 08:34: daily. [address] Branch aspirin 81 2022-0 Yes 81mg Take 81 mg U nivers mg chewable 2-21 by mouth ity of tablet 08:34: daily. [address] Branch lisinopril 2022-0 Yes Take by Univ ers 10 mg 2-21 mouth ity of tablet 08:34: daily. [address] Branch albuterol 2022-0 Yes 1{ampul Use 1 Univ ers 1.25 mg/3 2-21 e} Ampule as ity o f mL 08:34: directed [place] nebulizer 43 every 6 Medical solution (six) Branch hours as needed for Wheezing. ALPRAZolam 2022-0 Yes 1mg Take 1 mg Un lala 1 mg tablet 2-21 by mouth 3 it y of 08:34: (three) [place] [address] times Medical daily. Branch omeprazole 2022-0 Yes 40mg Take 40 mg U nivers 40 mg 2-21 by mouth ity of capsule 08:34: daily. [address] Branch loratadine 2022-0 Yes 10mg Take 10 mg U nivers 10 mg 2-21 by mouth ity of tablet 08:34: daily. [address] Branch aspirin 81 2022-0 Yes 81mg Take 81 mg U nivers mg chewable 2-21 by mouth ity of tablet 08:34: daily. [address] Branch lisinopril 2022-0 Yes Take by Univ ers 10 mg 2-21 mouth ity of tablet 08:34: daily. [address] Branch albuterol 2022-0 Yes 1{ampul Use 1 Univ ers 1.25 mg/3 2-21 e} Ampule as ity o f mL 08:34: directed [place] nebulizer 43 every 6 Medical solution (six) Branch hours as needed for Wheezing. ALPRAZolam 2022-0 Yes 1mg Take 1 mg Un lala 1 mg tablet 2-21 by mouth 3 it y of 08:34: (three) [place] [address] times Medical daily. Branch omeprazole 2022-0 Yes 40mg Take 40 mg U nivers 40 mg 2-21 by mouth ity of capsule 08:34: daily. [address] Branch loratadine 2022-0 Yes 10mg Take 10 mg U nivers 10 mg 2-21 by mouth ity of tablet 08:34: daily. [address] Branch aspirin 81 2022-0 Yes 81mg Take 81 mg U nivers mg chewable 2-21 by mouth ity of tablet 08:34: daily. [address] Branch lisinopril 2022-0 Yes Take by Univ ers 10 mg 2-21 mouth ity of tablet 08:34: daily. [address] Branch albuterol 2022-0 Yes 1{ampul Use 1 Univ ers 1.25 mg/3 2-21 e} Ampule as ity o f mL 08:34: directed [place] nebulizer 43 every 6 Medical solution (six) Branch hours as needed for Wheezing. ALPRAZolam 2022-0 Yes 1mg Take 1 mg Un lala 1 mg tablet 2-21 by mouth 3 it y of 08:34: (three) [place] [address] times Medical daily. Branch omeprazole 2022-0 Yes 40mg Take 40 mg U nivers 40 mg 2-21 by mouth ity of capsule 08:34: daily. [address] Branch loratadine 2022-0 Yes 10mg Take 10 mg U nivers 10 mg 2-21 by mouth ity of tablet 08:34: daily. [address] Branch aspirin 81 2022-0 Yes 81mg Take 81 mg U nivers mg chewable 2-21 by mouth ity of tablet 08:34: daily. [address] Branch lisinopril 2022-0 Yes Take by Univ ers 10 mg 2-21 mouth ity of tablet 08:34: daily. [address] Branch albuterol 2022-0 Yes 1{ampul Use 1 Univ ers 1.25 mg/3 2-21 e} Ampule as ity o f mL 08:34: directed [place] nebulizer 43 every 6 Medical solution (six) Branch hours as needed for Wheezing. ALPRAZolam 2022-0 Yes 1mg Take 1 mg Un lala 1 mg tablet 2-21 by mouth 3 it y of 08:34: (three) [place] [address] times Medical daily. Branch omeprazole 2022-0 Yes 40mg Take 40 mg U nivers 40 mg 2-21 by mouth ity of capsule 08:34: daily. [address] Branch loratadine 2022-0 Yes 10mg Take 10 mg U nivers 10 mg 2-21 by mouth ity of tablet 08:34: daily. [address] Branch aspirin 81 2022-0 Yes 81mg Take 81 mg U nivers mg chewable 2-21 by mouth ity of tablet 08:34: daily. [address] Branch lisinopril 2022-0 Yes Take by Univ ers 10 mg 2-21 mouth ity of tablet 08:34: daily. [address] Branch albuterol 2022-0 Yes 1{ampul Use 1 Univ ers 1.25 mg/3 2-21 e} Ampule as ity o f mL 08:34: directed [place] nebulizer 43 every 6 Medical solution (six) Branch hours as needed for Wheezing. ALPRAZolam 3-0 Yes 1mg Take 1 mg Un lala 1 mg tablet 2-21 by mouth 3 it y of 08:34: (three) [place] [address] times Medical daily. Branch omeprazole 3-0 Yes 40mg Take 40 mg U nivers 40 mg 2-21 by mouth ity of capsule 08:34: daily. [address] loratadine 2022-0 Yes 10mg Take 10 mg U nivers 10 mg 2-21 by mouth ity of tablet 08:34: daily. [address] aspirin 81 2022-0 Yes 81mg Take 81 mg U nivers mg chewable 2-21 by mouth ity of tablet 08:34: daily. [address] Branch lisinopril 2022-0 Yes Take by Univ ers 10 mg 2-21 mouth ity of tablet 08:34: daily. [address] albuterol 2022-0 Yes 1{ampul Use 1 Univ ers 1.25 mg/3 2-21 e} Ampule as ity o f mL 08:34: directed [place] nebulizer every 6 Medical solution (six) Branch hours as needed for Wheezing. ALPRAZolam 2022-0 Yes 1mg Take 1 mg Un lala 1 mg tablet 2-21 by mouth 3 it y of 08:34: (three) [address] Medical daily. Branch omeprazole 2022-0 Yes 40mg Take 40 mg U nivers 40 mg 2-21 by mouth ity of capsule 08:34: daily. [address] loratadine 2022-0 Yes 10mg Take 10 mg U nivers 10 mg 2-21 by mouth ity of tablet 08:34: daily. [address] aspirin 81 2022-0 Yes 81mg Take 81 mg U nivers mg chewable 2-21 by mouth ity of tablet 08:34: daily. [address] Branch lisinopril 2022-0 Yes Take by Univ ers 10 mg 2-21 mouth ity of tablet 08:34: daily. [address] Branch albuterol 3-0 Yes 1{ampul Use 1 Univ ers 1.25 mg/3 2-21 e} Ampule as ity o f mL 08:34: directed [place] nebulizer 43 every 6 Medical solution (six) Branch hours as needed for Wheezing. ALPRAZolam 2023-0 Yes 1mg Take 1 mg Un lala 1 mg tablet 2-21 by mouth 3 it y of 08:34: (three) [place] [address] times Medical daily. Branch omeprazole 2022-0 Yes 40mg Take 40 mg U nivers 40 mg 2-21 by mouth ity of capsule 08:34: daily. [address] loratadine 2022-0 Yes 10mg Take 10 mg U nivers 10 mg 2-21 by mouth ity of tablet 08:34: daily. [address] aspirin 81 2022-0 Yes 81mg Take 81 mg U nivers mg chewable 2-21 by mouth ity of tablet 08:34: daily. [address] Branch lisinopril 2022-0 Yes Take by Univ ers 10 mg 2-21 mouth ity of tablet 08:34: daily. [address] albuterol 2022-0 Yes 1{ampul Use 1 Univ ers 1.25 mg/3 2-21 e} Ampule as ity o f mL 08:34: directed [place] nebulizer every 6 Medical solution (six) Branch hours as needed for Wheezing. ALPRAZolam 2022-0 Yes 1mg Take 1 mg Un lala 1 mg tablet 2-21 by mouth 3 it y of 08:34: (three) [address] Medical daily. Branch omeprazole 2022-0 Yes 40mg Take 40 mg U nivers 40 mg 2-21 by mouth ity of capsule 08:34: daily. [address] loratadine 2022-0 Yes 10mg Take 10 mg U nivers 10 mg 2-21 by mouth ity of tablet 08:34: daily. [address] aspirin 81 2022-0 Yes 81mg Take 81 mg U nivers mg chewable 2-21 by mouth ity of tablet 08:34: daily. [address] Branch lisinopril 2022-0 Yes Take by Univ ers 10 mg 2-21 mouth ity of tablet 08:34: daily. [address] albuterol 2022-0 Yes 1{ampul Use 1 Univ ers 1.25 mg/3 2-21 e} Ampule as ity o f mL 08:34: directed [place] nebulizer 43 every 6 Medical solution (six) Branch hours as needed for Wheezing. ALPRAZolam 2022-0 Yes 1mg Take 1 mg Un lala 1 mg tablet 2-21 by mouth 3 it y of 08:34: (three) [place] [address] times Medical daily. Branch omeprazole 0 Yes 40mg Take 40 mg U nivers 40 mg 2-21 by mouth ity of capsule 08:34: daily. [address] Branch loratadine 0 Yes 10mg Take 10 mg U nivers 10 mg 2-21 by mouth ity of tablet 08:34: daily. [address] aspirin 81 2022-0 Yes 81mg Take 81 mg U nivers mg chewable 2-21 by mouth ity of tablet 08:34: daily. [address] Branch lisinopril Yes Take by [facility] ers 10 mg 2-21 mouth ity of tablet 08:34: daily. [address] Branch albuterol Yes 1{ampul Use 1 Univ ers 1.25 mg/3 2-21 e} Ampule as ity o f mL 08:34: directed [place] nebulizer 43 every 6 Medical solution (six) Branch hours as needed for Wheezing. SYMBICORT Yes 1{puff} Inhale 1 U nivers 160-4.5 2-19 Puff in ity of mcg/actuati 00:00: the [place] on inhaler 00 morning. Medic al Branch SYMBICORT Yes 1{puff} Inhale 1 U nivers 160-4.5 2-19 Puff in ity of mcg/actuati 00:00: the [place] on inhaler 00 morning. Medic al Branch SYMBICORT Yes 1{puff} Inhale 1 U nivers 160-4.5 2-19 Puff in ity of mcg/actuati 00:00: the [place] on inhaler 00 morning. Medic al Branch SYMBICORT Yes 1{puff} Inhale 1 U nivers 160-4.5 2-19 Puff in ity of mcg/actuati 00:00: the [place] on inhaler 00 morning. Medic al Branch SYMBICORT Yes 1{puff} Inhale 1 U nivers 160-4.5 2-19 Puff in ity of mcg/actuati 00:00: the [place] on inhaler 00 morning. Medic al Branch [...] Puff in ity of mcg/actuati 00:00: the [place] on inhaler 00 morning. Medic al Branch SYMBICORT 2022-0 Yes 1{puff} Inhale 1 U nivers 160-4.5 2-19 Puff in ity of mcg/actuati 00:00: the [place] on inhaler 00 morning. Medic al Branch SYMBICORT 2022-0 Yes 1{puff} Inhale 1 U nivers 160-4.5 2-19 Puff in ity of mcg/actuati 00:00: the [place] on inhaler 00 morning. Medic al Branch SYMBICORT 2022-0 Yes 1{puff} Inhale 1 U nivers 160-4.5 2-19 Puff in ity of mcg/actuati 00:00: the [place] on inhaler 00 morning. Medic al Branch azithromyci 2022-0 Yes 250mg Take 1 Uni vers n 250 mg 2-17 tablet by ity of tablet 00:00: mouth in [place] 00 the Medical morning. X Branch 5 days azithromyci 3-0 Yes 250mg Take 1 Uni vers n 250 mg 2-17 tablet by ity of tablet 00:00: mouth in [place] 00 the Medical morning. X Branch 5 days azithromyci 3-0 Yes 250mg Take 1 Uni vers n 250 mg 2-17 tablet by ity of tablet 00:00: mouth in [place] 00 the Medical morning. X Branch 5 days azithromyci 2023-0 Yes 250mg Take 1 Uni vers n 250 mg 2-17 tablet by ity of tablet 00:00: mouth in [place] 00 the Medical morning. X Branch 5 days azithromyci 3-0 Yes 250mg Take 1 Uni vers n 250 mg 2-17 tablet by ity of tablet 00:00: mouth in [place] 00 the Medical morning. X Branch 5 days azithromyci 2023-0 Yes 250mg Take 1 Uni vers n 250 mg 2-17 tablet by ity of tablet 00:00: mouth in [place] 00 the Medical morning. X Branch 5 days azithromyci 2023-0 Yes 250mg Take 1 Uni vers n 250 mg 2-17 tablet by ity of tablet 00:00: mouth in [place] 00 the Medical morning. X Branch 5 days azithromyci 2023-0 Yes 250mg Take 1 Uni vers n 250 mg 2-17 tablet by ity of tablet 00:00: mouth in [place] 00 the Medical morning. X Branch 5 days azithromyci 2023-0 Yes 250mg Take 1 Uni vers n 250 mg 2-17 tablet by ity of tablet 00:00: mouth in [place] 00 the Medical morning. X Branch 5 days azithromyci 2023-0 Yes 250mg Take 1 Uni vers n 250 mg 2-17 tablet by ity of tablet 00:00: mouth in [place] 00 the Medical morning. X Branch 5 days azithromyci 2023-0 2023- No 250mg Take 1 Un lala n 250 mg 2-17 05-01 tablet by ity o f tablet 00:00: 00:00 mouth in [place] 00 :00 the Medical morning. X Branch 5 days azithromyci 2023-0 2023- No 250mg Take 1 Un lala n 250 mg 2-17 05-01 tablet by ity o f tablet 00:00: 00:00 mouth in [place] 00 :00 the Medical morning. X Branch 5 days celecoxib 2023-0 Yes TAKE ONE Univ ers 100 mg 1-19 (1) ity of capsule 00:00: CAP[place]LE(S[place] BY MOUTH Medical TWICE A Branch DAY WITH FOOD. gabapentin 2023-0 Yes 600mg Take 600 Un lala 600 mg 1-19 mg by ity of tablet 00:00: mouth 4 [place] 00 (four) Medical times Branch daily. celecoxib [...] mg by ity of tablet 00:00: mouth ([facility]) Medical times Branch daily. celecoxib 2023-0 Yes [...] tablet by ity of tablet 00:00: mouth [place] (four) Medical times Branch daily. gabapentin 2023-0 [...] tablet by ity of tablet 00:00: mouth [place] (four) Medical times Branch daily. gabapentin 2023-0 [...] Medical TWICE A Branch DAY [facility]. [facility] 1{appli Apply 1 Univers ne 0.5 % 1-14 cator} Applicator ity of cream 00:00: to area(s) [place] 00 as needed. Medical Branch [facility] Yes 1{appli Apply 1 Univers ne 0.5 % 1-14 cator} Applicator ity of cream 00:00: to area(s) [place] 00 as needed. Medical Branch [facility] Yes 1{appli Apply 1 Univers ne 0.5 % 1-14 cator} Applicator ity of cream 00:00: to area(s) [place] 00 as needed. Medical Branch [facility] Yes 1{appli Apply 1 Univers ne 0.5 % 1-14 cator} Applicator ity of cream 00:00: to area(s) [place] 00 as needed. Medical Branch [facility] Yes 1{appli Apply 1 Univers ne 0.5 % 1-14 cator} Applicator ity of cream 00:00: to area(s) [place] 00 as needed. Medical Branch [facility] Yes 1{appli Apply 1 Univers ne 0.5 % 1-14 cator} Applicator ity of cream 00:00: to area(s) [place] 00 as needed. Medical Branch [facility] Yes 1{appli Apply 1 Univers ne 0.5 % 1-14 cator} Applicator ity of cream 00:00: to area(s) [place] 00 as needed. Medical Branch [facility] Yes 1{appli Apply 1 Univers ne 0.5 % 1-14 cator} Applicator ity of cream 00:00: to area(s) [place] 00 as needed. Medical Branch [facility] Yes 1{appli Apply 1 Univers ne 0.5 % 03-16 cator} Applicator ity of cream 00:00: to area(s) [place] 00 as needed. Medical Branch [facility] Yes 1{appli Apply 1 Univers ne 0.5 % 14 cator} Applicator ity of cream 00:00: to area(s) [place] 00 as needed. Medical [facility] 2022- No 1{appli Apply 1 Univers ne 0.5 % 03-16 cator} Applicator it y of cream 00:00: 00:00 to area(s) [place] 00 :00 as needed. [facility] 2022- No 1{appli Apply 1 Univers ne 0.5 % 03-16 cator} Applicator it y of cream 00:00: 00:00 to area(s) [place] 00 :00 as needed. Medical Branch DICLOFENAC 2021-0 Yes [id number] TAKE 1 Univers 75 mg EC 7-12 9109 TABLET BY ity of tablet 00:00: MOUTH [place] 00 TWICE A Medical DAY WITH Branch MEALS DICLOFENAC 2022-0 Yes [id number] TAKE 1 Univers 75 mg EC 7-12 9109 TABLET BY ity of tablet 00:00: MOUTH [place] 00 TWICE A Medical DAY WITH Branch MEALS DICLOFENAC 2022-0 Yes [id number] TAKE 1 Univers 75 mg EC 7-12 9109 TABLET BY ity of tablet 00:00: MOUTH [place] 00 TWICE A Medical DAY WITH Branch MEALS DICLOFENAC 2022-0 Yes [id number] TAKE 1 [facility] 75 mg EC 7-12 9109 TABLET BY ity of tablet 00:00: MOUTH [place] 00 TWICE A Medical DAY WITH Branch MEALS DICLOFENAC 2022-0 Yes [id number] TAKE 1 [facility] 75 mg EC 7-12 9109 TABLET BY ity of tablet 00:00: MOUTH [place] 00 TWICE A Medical DAY WITH Branch MEALS DICLOFENAC 2022-0 Yes [id number] TAKE 1 [facility] 75 mg EC 7-12 9109 TABLET BY ity of tablet 00:00: MOUTH [place] 00 TWICE A Medical DAY WITH Branch MEALS DICLOFENAC 2022-0 Yes [id number] TAKE 1 [facility] 75 mg EC 7-12 9109 TABLET BY ity of tablet 00:00: MOUTH [place] 00 TWICE A Medical DAY WITH Branch MEALS DICLOFENAC 2022-0 Yes [id number] TAKE 1 [facility] 75 mg EC 7-12 9109 TABLET BY ity of tablet 00:00: MOUTH [place] 00 TWICE A Medical DAY WITH Branch MEALS DICLOFENAC 2022-0 Yes [id number] TAKE 1 [facility] 75 mg EC 7-12 9109 TABLET BY ity of tablet 00:00: MOUTH [place] 00 TWICE A Medical DAY WITH Branch MEALS DICLOFENAC 2022-0 Yes [id number] TAKE 1 [facility] 75 mg EC 7-12 9109 TABLET BY ity of tablet 00:00: MOUTH [place] 00 TWICE A Medical DAY WITH Branch MEALS DICLOFENAC 2022-0 Yes [id number] TAKE 1 [facility] 75 mg EC 7-12 9109 TABLET BY ity of tablet 00:00: MOUTH [place] 00 TWICE A Medical DAY WITH Branch MEALS DICLOFENAC 2022-0 Yes [id number] TAKE 1 [facility] 75 mg EC 7-12 9109 TABLET BY ity of tablet 00:00: MOUTH [place] 00 TWICE A Medical DAY WITH Branch MEALS DICLOFENAC 2022-0 Yes [id number] TAKE 1 [facility] 75 mg EC 7-12 9109 TABLET BY ity of tablet 00:00: MOUTH [place] 00 TWICE A Medical DAY WITH Branch MEALS DICLOFENAC 2022-0 Yes [id number] TAKE 1 [facility] 75 mg EC 7-12 9109 TABLET BY ity of tablet 00:00: MOUTH [place] 00 TWICE A Medical DAY WITH Branch MEALS DICLOFENAC 2022-0 Yes [id number] TAKE 1 [facility] 75 mg EC 7-12 9109 TABLET BY ity of tablet 00:00: MOUTH [place] 00 TWICE A Medical DAY WITH Branch MEALS DICLOFENAC 2022-0 Yes [id number] TAKE 1 [facility] 75 mg EC 7-12 9109 TABLET BY ity of tablet 00:00: MOUTH [place] 00 TWICE A Medical DAY WITH Branch MEALS DICLOFENAC 2022-0 2023- No [id number] TAKE 1 [facility] 75 mg EC 7-12 03-08 9109 TABLET BY ity o f tablet 00:00: 00:00 MOUTH [place] 00 :00 TWICE A Medical DAY WITH Branch MEALS diclofenac 2022-0 Yes [id number] 75mg Take 1 [facility] 75 mg EC 5-23 9109 tablet by ity of tablet 00:00: mouth 2 [place] 00 (two) Medical times Branch daily with meals. diclofenac 2022-0 2022- No [id number] 75mg Take 1 [facility] 75 mg EC 5-23 07-12 9109 tablet by ity o f tablet 00:00: 00:00 mouth 2 [place] 00 :00 (two) Medical times Branch daily with meals. aspirin 81 0 Yes 81mg Take 81 mg [facility] mg chewable 3-10 by mouth ity of tablet 15:33: daily. [address] Branch lisinopril 0 Yes Take by [facility] ers 10 mg 3-10 mouth ity of tablet 15:33: daily. [address] Branch albuterol 0 Yes 1{ampul Use 1 [facility] ers 1.25 mg/3 3-10 e} Ampule as ity o f mL 15:33: directed [place] nebulizer every 6 Medical solution (six) Branch hours as needed for Wheezing. ALPRAZolam 0 Yes 1mg Take 1 mg [facility] (XANAX) 1 3-10 by mouth 3 ity of mg tablet 15:33: (three) [place] [address] times Medical daily. Branch omeprazole 0 Yes 40mg Take 40 mg U nivers 40 mg 3-10 by mouth ity of capsule 15:33: daily. [address] Branch loratadine 0 Yes 10mg Take 10 mg U nivers 10 mg 3-10 by mouth ity of tablet 15:33: daily. [address] aspirin 81 0 Yes 81mg Take 81 mg U nivers mg chewable 3-10 by mouth ity of tablet 15:33: daily. [address] Branch lisinopril 0 Yes Take by [facility] 10 mg 3-10 mouth ity of tablet 15:33: daily. [address] albuterol 0 Yes 1{ampul Use 1 [facility] ers 1.25 mg/3 3-10 e} Ampule as ity o f mL 15:33: directed [place] nebulizer every 6 Medical solution (six) Branch hours as needed for Wheezing. ALPRAZolam 0 Yes 1mg Take 1 mg [facility] (XANAX) 1 3-10 by mouth 3 ity of mg tablet 15:33: (three) [place] [address] times Medical daily. Branch omeprazole 0 Yes 40mg Take 40 mg U nivers 40 mg 3-10 by mouth ity of capsule 15:33: daily. [address] Branch loratadine 0 Yes 10mg Take 10 mg U nivers 10 mg 3-10 by mouth ity of tablet 15:33: daily. [place] [address] Medical Branch aspirin 81 0 Yes 81mg Take 81 mg U nivers mg chewable 3-10 by mouth ity of tablet 15:33: daily. [address] Branch lisinopril 0 Yes Take by [facility] ers 10 mg 3-10 mouth ity of tablet 15:33: daily. [address] Branch albuterol 0 Yes 1{ampul Use 1 [facility] ers 1.25 mg/3 3-10 e} Ampule as ity o f mL 15:33: directed [place] nebulizer every 6 Medical solution (six) Branch hours as needed for Wheezing. ALPRAZolam 0 Yes 1mg Take 1 mg [facility] (XANAX) 1 3-10 by mouth 3 ity of mg tablet 15:33: (three) [place] [address] times Medical daily. Branch omeprazole 0 Yes 40mg Take 40 mg U nivers 40 mg 3-10 by mouth ity of capsule 15:33: daily. [address] Branch loratadine 0 Yes 10mg Take 10 mg U nivers 10 mg 3-10 by mouth ity of tablet 15:33: daily. [address] Branch aspirin 81 0 Yes 81mg Take 81 mg U nivers mg chewable 3-10 by mouth ity of tablet 15:33: daily. [address] Branch lisinopril 0 Yes Take by [facility] 10 mg 3-10 mouth ity of tablet 15:33: daily. [address] Branch albuterol 0 Yes 1{ampul Use 1 [facility] ers 1.25 mg/3 3-10 e} Ampule as ity o f mL 15:33: directed [place] nebulizer every 6 Medical solution (six) Branch hours as needed for Wheezing. ALPRAZolam 0 Yes 1mg Take 1 mg [facility] (XANAX) 1 3-10 by mouth 3 ity of mg tablet 15:33: (three) [place] [address] times Medical daily. Branch omeprazole 0 Yes 40mg Take 40 mg U nivers 40 mg 3-10 by mouth ity of capsule 15:33: daily. [address] Branch loratadine 0 Yes 10mg Take 10 mg [facility] nivers 10 mg 3-10 by mouth ity of tablet 15:33: daily. [address] Branch aspirin 81 0 Yes 81mg Take 81 mg U nivers mg chewable 3-10 by mouth ity of tablet 15:33: daily. [address] Branch lisinopril 0 Yes Take by [facility] 10 mg 3-10 mouth ity of tablet 15:33: daily. [address] Branch albuterol 0 Yes 1{ampul Use 1 [facility] ers 1.25 mg/3 3-10 e} Ampule as ity o f mL 15:33: directed [place] nebulizer every 6 Medical solution (six) Branch hours as needed for Wheezing. ALPRAZolam 0 Yes 1mg Take 1 mg [facility] (XANAX) 1 3-10 by mouth 3 ity of mg tablet 15:33: (three) [place] [address] times Medical daily. Branch omeprazole 0 Yes 40mg Take 40 mg U nivers 40 mg 3-10 by mouth ity of capsule 15:33: daily. [address] Branch loratadine 0 Yes 10mg Take 10 mg U nivers 10 mg 3-10 by mouth ity of tablet 15:33: daily. [address] Branch aspirin 81 0 Yes 81mg Take 81 mg U nivers mg chewable 3-10 by mouth ity of tablet 15:33: daily. [address] Branch lisinopril 0 Yes Take by [facility] 10 mg 3-10 mouth ity of tablet 15:33: daily. [address] Branch albuterol 0 Yes 1{ampul Use 1 [facility] ers 1.25 mg/3 3-10 e} Ampule as ity o f mL 15:33: directed [place] nebulizer every 6 Medical solution (six) Branch hours as needed for Wheezing. ALPRAZolam 0 Yes 1mg Take 1 mg [facility] (XANAX) 1 3-10 by mouth 3 ity of mg tablet 15:33: (three) [place] [address] times Medical daily. Branch omeprazole 0 Yes 40mg Take 40 mg U nivers 40 mg 3-10 by mouth ity of capsule 15:33: daily. [address] Branch loratadine 0 Yes 10mg Take 10 mg U nivers 10 mg 3-10 by mouth ity of tablet 15:33: daily. [address] Branch aspirin 81 0 Yes 81mg Take 81 mg U nivers mg chewable 3-10 by mouth ity of tablet 15:33: daily. [address] Branch lisinopril 0 Yes Take by [facility] 10 mg 3-10 mouth ity of tablet 15:33: daily. [address] Branch albuterol 0 Yes 1{ampul Use 1 [facility] ers 1.25 mg/3 3-10 e} Ampule as ity o f mL 15:33: directed [place] nebulizer every 6 Medical solution (six) Branch hours as needed for Wheezing. ALPRAZolam 0 Yes 1mg Take 1 mg [facility] (XANAX) 1 3-10 by mouth 3 ity of mg tablet 15:33: (three) [place] [address] times Medical daily. Branch omeprazole 0 Yes 40mg Take 40 mg U nivers 40 mg 3-10 by mouth ity of capsule 15:33: daily. [address] Branch loratadine 0 Yes 10mg Take 10 mg U nivers 10 mg 3-10 by mouth ity of tablet 15:33: daily. [address] Branch aspirin 81 0 Yes 81mg Take 81 mg U nivers mg chewable 3-10 by mouth ity of tablet 15:33: daily. [address] Branch lisinopril 0 Yes Take by [facility] 10 mg 3-10 mouth ity of tablet 15:33: daily. [address] albuterol 0 Yes 1{ampul Use 1 [facility] ers 1.25 mg/3 3-10 e} Ampule as ity o f mL 15:33: directed [place] nebulizer every 6 Medical solution (six) Branch hours as needed for Wheezing. ALPRAZolam 0 Yes 1mg Take 1 mg [facility] (XANAX) 1 3-10 by mouth 3 ity of mg tablet 15:33: (three) [place] [address] times Medical daily. Branch omeprazole 0 Yes 40mg Take 40 mg U nivers 40 mg 3-10 by mouth ity of capsule 15:33: daily. [address] loratadine 0 Yes 10mg Take 10 mg U nivers 10 mg 3-10 by mouth ity of tablet 15:33: daily. [address] Branch aspirin 81 0 Yes 81mg Take 81 mg U nivers mg chewable 3-10 by mouth ity of tablet 15:33: daily. [address] Branch lisinopril 0 Yes Take by [facility] 10 mg 3-10 mouth ity of tablet 15:33: daily. [address] Branch albuterol 0 Yes 1{ampul Use 1 [facility] ers 1.25 mg/3 3-10 e} Ampule as ity o f mL 15:33: directed [place] nebulizer every 6 Medical solution (six) Branch hours as needed for Wheezing. ALPRAZolam 0 Yes 1mg Take 1 mg [facility] (XANAX) 1 3-10 by mouth 3 ity of mg tablet 15:33: (three) [place] [address] times Medical daily. Branch omeprazole 0 Yes 40mg Take 40 mg U nivers 40 mg 3-10 by mouth ity of capsule 15:33: daily. [address] loratadine 0 Yes 10mg Take 10 mg U nivers 10 mg 3-10 by mouth ity of tablet 15:33: daily. [address] aspirin 81 0 Yes 81mg Take 81 mg U nivers mg chewable 3-10 by mouth ity of tablet 15:33: daily. [address] lisinopril 0 Yes Take by [facility] 10 mg 3-10 mouth ity of tablet 15:33: daily. [address] albuterol 0 Yes 1{ampul Use 1 [facility] ers 1.25 mg/3 3-10 e} Ampule as ity o f mL 15:33: directed [place] nebulizer every 6 Medical solution (six) Branch hours as needed for Wheezing. ALPRAZolam 0 Yes 1mg Take 1 mg [facility] (XANAX) 1 3-10 by mouth 3 ity of mg tablet 15:33: (three) [place] [address] times Medical daily. Branch omeprazole 0 Yes 40mg Take 40 mg U nivers 40 mg 3-10 by mouth ity of capsule 15:33: daily. [address] loratadine 0 Yes 10mg Take 10 mg U nivers 10 mg 3-10 by mouth ity of tablet 15:33: daily. [address] Branch diclofenac 2022-0 Yes 75mg Take 1 [facility] rs 75 mg EC 2-09 tablet by ity of tablet 00:00: mouth 2 [place] 00 (two) Medical times Branch daily with meals. diclofenac 2022-0 Yes 75mg Take 1 [facility] 75 mg EC 2-09 tablet by ity of tablet 00:00: mouth 2 [place] 00 (two) Medical times Branch daily with meals. diclofenac 2022-0 Yes 75mg Take 1 [facility] 75 mg EC 2-09 tablet by ity of tablet 00:00: mouth 2 [place] 00 (two) Medical times Branch daily with meals. diclofenac 2022-0 Yes 75mg Take 1 [facility] 75 mg EC 2-09 tablet by ity of tablet 00:00: mouth 2 [place] 00 (two) Medical times Branch daily with meals. diclofenac 2022-0 Yes 75mg Take 1 [facility] 75 mg EC 2-09 tablet by ity of tablet 00:00: mouth 2 [place] 00 (two) Medical times Branch daily with meals. diclofenac 2022-0 Yes 75mg Take 1 [facility] rs 75 mg EC 2-09 tablet by ity of tablet 00:00: mouth 2 [place] 00 (two) Medical times Branch daily with meals. diclofenac 2022-0 2022- No 75mg Take 1 [facility] ers 75 mg EC 2-09 05-23 tablet by ity o f tablet 00:00: 00:00 mouth 2 [place] 00 :00 (two) Medical times Branch daily with meals. atorvastati 2022-0 Yes 20mg Take 20 mg [facility] n 20 mg 2-03 by mouth ity of tablet 14:05: daily. [address] atorvastati 2022-0 Yes 20mg Take 20 mg [facility] n 20 mg 2-03 by mouth ity of tablet 14:05: daily. [address] atorvastati 2022-0 Yes 20mg Take 20 mg [facility] n 20 mg 2-03 by mouth ity of tablet 14:05: daily. [address] atorvastati 2022-0 Yes 20mg Take 20 mg [facility] n 20 mg 2-03 by mouth ity of tablet 14:05: daily. [address] atorvastati 2-0 Yes 20mg Take 20 mg [facility] n 20 mg 2-03 by mouth ity of tablet 14:05: daily. [address] atorvastati 0 Yes 20mg Take 20 mg [facility] n 20 mg 2-03 by mouth ity of tablet 14:05: daily. [address] atorvastati 0 Yes 20mg Take 20 mg [facility] n 20 mg 2-03 by mouth ity of tablet 14:05: daily. [address] atorvastati 0 Yes 20mg Take 20 mg [facility] n 20 mg 2-03 by mouth ity of tablet 14:05: daily. [address] atorvastati 0 Yes 20mg Take 20 mg [facility] n 20 mg 2-03 by mouth ity of tablet 14:05: daily. [address] atorvastati 0 Yes 20mg Take 20 mg [facility] n 20 mg 2-03 by mouth ity of tablet 14:05: daily. [address] atorvastati Yes 20mg Take 20 mg [facility] n 20 mg 2-03 by mouth ity of tablet 14:05: daily. [address] atorvastati Yes 20mg Take 20 mg [facility] n 20 mg 2-03 by mouth ity of tablet 14:05: daily. [address] atorvastati Yes 20mg Take 20 mg [facility] n 20 mg 2-03 by mouth ity of tablet 14:05: daily. [address] traMADoL 50 2021-0 Yes [id number] 50mg [...] (scale 7-10). Indication s: acute pain amLODIPine 2019-0 Yes amlodipine M ethodi (NORVASC) [...] 20 MG 13:54: [facility] gabapentin 2020-0 Yes gabapentin M ethodi (NEURONTIN) 3-[address] 300 mg 13:54: capsule [facility] capsule [facility] l aspirin 81 2020-0 Yes 81mg [...] mcg/actuat l on inhaler ion aerosol inhaler ALPRAZolam 2020-0 Yes alprazolam M ethodi (XANAX) [...] nebulizer base)/3 mL nebulizati on soln gabapentin 2020-0 Yes gabapentin M ethodi (NEURONTIN) [...] 21 Tab/Dspk TAB Methylpredn 2018-03 No 1 Nora a isolone 2-25 st (Medrol 18:52: [place] Dose-Pack) 00 LIVE 21 Tab/Dspk HCIS TAB ALPRAZolam 2018-03 Yes 1mg Take 1 mg [facility] (XANAX) 1 2-13 by mouth 3 ity of mg tablet 13:41: (three) [place] 15 times Medical daily. Branch omeprazole 2018-03 Yes 40mg Take 40 mg U nivers 40 mg 2-13 by mouth ity of capsule 13:41: daily. [address] loratadine 2018-03 Yes 10mg Take 10 mg U nivers 10 mg 2-13 by mouth ity of tablet 13:41: daily. [address] aspirin 81 2018-03 Yes 81mg Take 81 mg U nivers mg chewable 2-13 by mouth ity of tablet 13:41: daily. [address] lisinopril 2018-03 Yes Take by [facility] ers 10 mg 2-13 mouth ity of tablet 13:41: daily. [address] albuterol 2018-03 Yes 1{ampul Use 1 [facility] ers 1.25 mg/3 2-13 e} Ampule as ity o f mL 13:41: directed [place] nebulizer 15 every 6 Medical solution (six) Branch hours as needed for Wheezing. ALPRAZolam 2018-03 Yes 1mg Take 1 mg [facility] (XANAX) 1 2-13 by mouth 3 ity of mg tablet 13:41: (three) [place] [id number] times Medical daily. Branch omeprazole 2018-03 Yes 40mg Take 40 mg U nivers 40 mg 2-13 by mouth ity of capsule 13:41: daily. [address] loratadine 2018-03 Yes 10mg Take 10 mg U nivers 10 mg 2-13 by mouth ity of tablet 13:41: daily. [address] aspirin 81 2018-03 Yes 81mg Take 81 mg U nivers mg chewable 2-13 by mouth ity of tablet 13:41: daily. [address] lisinopril 2018-03 Yes Take by [facility] 10 mg 2-13 mouth ity of tablet 13:41: daily. [address] albuterol 2018-03 Yes 1{ampul Use 1 [facility] ers 1.25 mg/3 2-13 e} Ampule as ity o f mL 13:41: directed [place] nebulizer 15 every 6 Medical solution (six) Branch hours as needed for Wheezing. ALPRAZolam 2018-03 Yes 1mg Take 1 mg [facility] (XANAX) 1 2-13 by mouth 3 ity of mg tablet 13:41: (three) [place] 15 times Medical daily. Branch omeprazole 2018-03 Yes 40mg Take 40 mg U nivers 40 mg 2-13 by mouth ity of capsule 13:41: daily. [address] Branch loratadine 2018-03 Yes 10mg Take 10 mg U nivers 10 mg 2-13 by mouth ity of tablet 13:41: daily. [address] Branch aspirin 81 2018-03 Yes 81mg Take 81 mg U nivers mg chewable 2-13 by mouth ity of tablet 13:41: daily. [address] Branch lisinopril 2018-03 Yes Take by [facility] 10 mg 2-13 mouth ity of tablet 13:41: daily. [address] Branch albuterol 2018-03 Yes 1{ampul Use 1 [facility] ers 1.25 mg/3 2-13 e} Ampule as ity o f mL 13:41: directed [place] nebulizer 15 every 6 Medical solution (six) Branch hours as needed for Wheezing. benzonatate 2018-03 Yes [id number] 100mg Take 1 [facility] 100 mg 2-11 capsule by ity of capsule 00:00: mouth 3 [place] 00 (three) Medical times Branch daily as needed for Cough. benzonatate 2018-03 Yes [id number] 100mg Take 1 [facility] 100 mg 2-11 capsule by ity of capsule 00:00: mouth 3 [place] 00 (three) Medical times Branch daily as needed for Cough. benzonatate 2018-03 Yes [id number] 100mg Take 1 [facility] 100 mg 2-11 capsule by ity of capsule 00:00: mouth 3 [place] 00 (three) Medical times Branch daily as needed for Cough. benzonatate 2018-03 Yes [id number] 100mg Take 1 [facility] 100 mg 2-11 capsule by ity of capsule 00:00: mouth 3 [place] 00 (three) Medical times Branch daily as needed for Cough. benzonatate 2018-03 Yes [id number] 100mg Take 1 [facility] 100 mg 2-11 capsule by ity of capsule 00:00: mouth 3 [place] 00 (three) Medical times Branch daily as needed for Cough. benzonatate 2018-03 Yes [id number] 100mg Take 1 [facility] 100 mg 2-11 capsule by ity of capsule 00:00: mouth 3 [place] 00 (three) Medical times Branch daily as needed for Cough. benzonatate 2018-03 Yes [id number] 100mg Take 1 [facility] 100 mg 2-11 capsule by ity of capsule 00:00: mouth 3 [place] 00 (three) Medical times Branch daily as needed for Cough. benzonatate 2018-03 Yes [id number] 100mg Take 1 [facility] 100 mg 2-11 capsule by ity of capsule 00:00: mouth 3 [place] 00 (three) Medical times Branch daily as needed for Cough. benzonatate 2018-03 Yes [id number] 100mg Take 1 [facility] 100 mg 2-11 capsule by ity of capsule 00:00: mouth 3 [place] (three) Medical times Branch daily as needed for Cough. benzonatate 2018-03 Yes [id number] 100mg Take 1 [facility] 100 mg 2-11 capsule by ity of capsule 00:00: mouth 3 [place] 00 (three) Medical times Branch daily as needed for Cough. benzonatate 2018-03 Yes [id number] 100mg Take 1 [facility] 100 mg 2-11 capsule by ity of capsule 00:00: mouth 3 (three) Medical times Branch daily as needed for Cough. benzonatate 2018-03 Yes [id number] 100mg Take 1 [facility] 100 mg 2-11 capsule by ity of capsule 00:00: mouth 3 (three) Medical times Branch daily as needed for Cough. benzonatate 2018-03 Yes [id number] 100mg Take 1 [facility] 100 mg 2-11 capsule by ity of capsule 00:00: mouth 3 (three) Medical times Branch daily as needed for Cough. benzonatate 2018-03 Yes [id number] 100mg Take 1 [facility] 100 mg 2-11 capsule by ity of capsule 00:00: mouth 3 (three) Medical times Branch daily as needed for Cough. benzonatate 2018-03 Yes [id number] 100mg Take 1 [facility] 100 mg 2-11 capsule by ity of capsule 00:00: mouth 3 (three) Medical times Branch daily as needed for Cough. benzonatate 2018-03 Yes [id number] 100mg Take 1 [facility] 100 mg 2-11 capsule by ity of capsule 00:00: mouth 3 00 (three) Medical times Branch daily as needed for Cough. benzonatate 2018-03 Yes [id number] 100mg Take 1 [facility] 100 mg 2-11 capsule by ity of capsule 00:00: mouth 3 [place] 00 (three) Medical times Branch daily as needed for Cough. benzonatate 2018-03 Yes [id number] 100mg Take 1 [facility] 100 mg 2-11 capsule by ity of capsule 00:00: mouth 3 00 (three) Medical times Branch daily as needed for Cough. benzonatate 2018-03 Yes [id number] 100mg Take 1 [facility] 100 mg 2-11 capsule by ity of capsule 00:00: mouth 3 (three) Medical times Branch daily as needed for Cough. benzonatate 2018-03 Yes [id number] 100mg Take 1 [facility] 100 mg 2-11 capsule by ity of capsule 00:00: mouth 3 (three) Medical times Branch daily as needed for Cough. benzonatate 2018-03 Yes [id number] 100mg Take 1 [facility] 100 mg 2-11 capsule by ity of capsule 00:00: mouth 3 (three) Medical times Branch daily as needed for Cough. benzonatate 2018-03 Yes [id number] 100mg Take 1 [facility] 100 mg 2-11 capsule by ity of capsule 00:00: mouth 3 (three) Medical times Branch daily as needed for Cough. benzonatate 2018-03 Yes [id number] 100mg Take 1 [facility] 100 mg 2-11 capsule by ity of capsule 00:00: mouth 3 (three) Medical times Branch daily as needed for Cough. benzonatate 2018-03 Yes [id number] 100mg Take 1 [facility] 100 mg 2-11 capsule by ity of capsule 00:00: mouth 3 (three) Medical times Branch daily as needed for Cough. benzonatate 2018-03 Yes [id number] 100mg Take 1 [facility] 100 mg 2-11 capsule by ity of capsule 00:00: mouth 3 (three) Medical times Branch daily as needed for Cough. benzonatate 2018-03 Yes [id number] 100mg Take 1 [facility] 100 mg 2-11 capsule by ity of capsule 00:00: mouth 3 (three) Medical times Branch daily as needed for Cough. benzonatate 2018-03 Yes [id number] 100mg Take 1 [facility] 100 mg 2-11 capsule by ity of capsule 00:00: mouth 3 (three) Medical times Branch daily as needed for Cough. benzonatate 2018-03 Yes [id number] 100mg Take 1 [facility] 100 mg 2-11 capsule by ity of capsule 00:00: mouth 3 (three) Medical times Branch daily as needed for Cough. benzonatate 2018-03 Yes [id number] 100mg Take 1 [facility] 100 mg 2-11 capsule by ity of capsule 00:00: mouth 3 (three) Medical times Branch daily as needed for Cough. benzonatate 2018-03 Yes [id number] 100mg Take 1 [facility] 100 mg 2-11 capsule by ity of capsule 00:00: mouth 3 (three) Medical times Branch daily as needed for Cough. benzonatate 2018-03 Yes [id number] 100mg Take 1 [facility] 100 mg 2-11 capsule by ity of capsule 00:00: mouth 3 (three) Medical times Branch daily as needed for Cough. benzonatate 2018-03 Yes [id number] 100mg Take 1 [facility] 100 mg 2-11 capsule by ity of capsule 00:00: mouth 3 (three) Medical times Branch daily as needed for Cough. benzonatate 2018-03 Yes [id number] 100mg Take 1 [facility] 100 mg 2-11 capsule by ity of capsule 00:00: mouth 3 (three) Medical times Branch daily as needed for Cough. benzonatate 2018-03 Yes [id number] 100mg Take 1 [facility] 100 mg 2-11 capsule by ity of capsule 00:00: mouth 3 (three) Medical times Branch daily as needed for Cough. benzonatate 2018-03 Yes [id number] 100mg Take 1 [facility] 100 mg 2-11 capsule by ity of capsule 00:00: mouth 3 (three) Medical times Branch daily as needed for Cough. benzonatate 2018-03 Yes [id number] 100mg Take 1 [facility] 100 mg 2-11 capsule by ity of capsule 00:00: mouth 3 (three) Medical times Branch daily as needed for Cough. benzonatate 2018-03 Yes [id number] 100mg Take 1 [facility] 100 mg 2-11 capsule by ity of capsule 00:00: mouth 3 (three) Medical times Branch daily as needed for Cough. benzonatate 2018-03 Yes [id number] 100mg Take 1 [facility] 100 mg 2-11 capsule by ity of capsule 00:00: mouth 3 (three) Medical times Branch daily as needed for Cough. benzonatate 2018-03 Yes [id number] 100mg Take 1 [facility] 100 mg 2-11 capsule by ity of capsule 00:00: mouth 3 (three) Medical times Branch daily as needed for Cough. benzonatate 2018-03 Yes [id number] 100mg Take 1 [facility] 100 mg 2-11 capsule by ity of capsule 00:00: mouth 3 [place] 00 (three) Medical times Branch daily as needed for Cough. benzonatate 2018-03- No [id number] 100mg Take 1 [facility] 100 mg 2- capsule by ity of capsule 00:00: 00:00 mouth 3 [place] 00 :00 (three) Medical times Branch daily as needed for Cough. benzonatate 2018-03- No [id number] 100mg Take 1 [facility] 100 mg 2- 05- capsule by ity of capsule 00:00: [...] hot shower 1 hour before bedtime sod 2022- No 1{bottl Use 1 [facility] chlor-bicar 3-18 05-01 e} Bottle in it y of b-squeez 00:00: 00:00 each [place] bottle 00 :00 nostril 2 Medical (NEILMED (two) Branch SINUS RINSE times COMPLETE) daily. Use pkdv in hot shower 1 hour before bedtime sod 2022- No 1{bottl Use 1 [facility] chlor-bicar 3-18 05-01 e} Bottle in it y of b-squeez 00:00: 00:00 each [place] bottle 00 :00 nostril 2 Medical (NEILMED (two) Branch SINUS RINSE times COMPLETE) daily. Use pkdv in hot shower 1 hour before bedtime Immunizations Ordered Filled Immunization Date Status Comments [facility] e Immunization Name Name SARS-COV-2 COVID-19 2020-10-15 Completed Unive rsity of PFIZER VACCINE 00:00:00 [facility] SARS-COV-2 COVID-19 2020-10-15 Completed Unive rsity of PFIZER VACCINE 00:00:00 [facility] SARS-COV-2 COVID-19 2020-10-15 Completed Unive rsity of PFIZER VACCINE 00:00:00 [facility] SARS-COV-2 COVID-19 2020-10-15 Completed Unive rsity of PFIZER VACCINE 00:00:00 [facility] SARS-COV-2 COVID-19 2020-10-15 Completed Unive rsity of PFIZER VACCINE 00:00:00 [facility] [facility] SARS[facility]OV-2 COVID-19 2020-10-15 Completed [facility] PFIZER VACCINE 00:00:00 [facility] SARS-COV-2 COVID-19 2020-10-15 Completed [facility] PFIZER VACCINE 00:00:00 [facility] SARS-COV-2 COVID-19 2020-10-15 Completed [facility] PFIZER VACCINE 00:00:00 [facility] SARS-COV-2 COVID-19 2020-10-15 Completed [facility] P[facility]ZER VACCINE 00:00:00 [facility] SARS-COV-2 COVID-19 2020-10-15 Completed [facility] PFIZER VACCINE 00:00:00 [facility] SARS-COV-2 COVID-19 2020-10-15 Completed [facility] PFIZER VACCINE 00:00:00 [facility] SARS-COV-2 COVID-19 2020-10-15 Completed [facility] PFIZER VACCINE 00:00:00 [facility] SARS-COV-2 COVID-19 2020-10-15 Completed [facility] PFIZER VACCINE 00:00:00 [facility] SARS-COV-2 COVID-19 2020-10-15 Completed [facility] PFIZER VACCINE 00:00:00 [facility] SARS-COV-2 COVID-19 2020-10-15 Completed [facility] PFIZER VACCINE 00:00:00 [facility] SARS-COV-2 COVID-19 2020-10-15 Completed [facility] PFIZER VACCINE 00:00:00 [facility] SARS-COV-2 COVID-19 2020-10-15 Completed [facility] PFIZER VACCINE 00:00:00 [facility] SARS-COV-2 COVID-19 2020-10-15 Completed [facility] PFIZER VACCINE 00:00:00 [facility] SARS-COV-2 COVID-19 2020-10-15 Completed [facility] PFIZER VACCINE 00:00:00 [facility] SARS-COV-2 COVID-19 2020-10-15 Completed [facility] PFIZER VACCINE 00:00:[address] [facility] SARS-COV-2 COVID-19 2020-10-15 Completed [facility] PFIZER VACCINE 00:00:00 [facility] SARS-COV-2 COVID-19 2020-10-15 Completed [facility] PFIZER VACCINE 00:00:00 [facility] SARS-COV-2 COVID-19 2020-10-15 Completed [facility] PFIZER VACCINE 00:00:00 [facility] SARS-COV-2 COVID-19 2020-10-15 Completed [facility] PFIZER VACCINE 00:00:00 [facility] SARS-COV-2 COVID-19 2020-10-15 Completed [facility] PFIZER VACCINE 00:00:00 [facility] SARS-COV-2 COVID-19 2020-10-15 Completed [facility] PFIZER VACCINE 00:00:00 [facility] SARS-COV-2 COVID-19 2020-10-15 Completed [facility] PFIZER VACCINE 00:00:00 [facility] SARS-COV-2 COVID-19 2020-10-15 Completed [facility] PFIZER VACCINE 00:00:00 [facility] SARS-COV-2 COVID-19 2020-10-15 Completed [facility] PFIZER VACCINE 00:00:00 [facility] SARS-COV-2 COVID-19 2020-10-15 Completed [facility] PFIZER VACCINE 00:00:00 [facility] SARS-COV-2 COVID-19 2020-10-15 Completed [facility] PFIZER VACCINE 00:00:00 [facility] SARS-COV-2 COVID-19 2020-10-15 Completed [facility] PFIZER VACCINE 00:00:00 [facility] SARS-COV-2 COVID-19 2020-10-15 Completed [facility] PFIZER VACCINE 00:00:00 [facility] SARS-COV-2 COVID-19 2020-10-15 Completed [facility] PFIZER VACCINE 00:00:00 [facility] SARS-COV-2 COVID-19 2020-10-15 Completed [facility] PFIZER VACCINE 00:00:00 [facility] SARS-COV-2 COVID-19 2020-10-15 Completed [facility] PFIZER VACCINE 00:00:00 [facility] SARS-COV-2 COVID-19 2020-10-15 Completed [facility] PFIZER VACCINE 00:00:00 [facility] SARS-COV-2 COVID-19 2020-10-15 Completed [facility] PFIZER VACCINE 00:00:00 [facility] SARS-COV-2 COVID-19 2020-10-15 Completed [facility] PFIZER VACCINE 00:00:00 [facility] SARS-COV-2 COVID-19 2020-10-15 Completed [facility] PFIZER VACCINE 00:00:00 [facility] SARS-COV-2 COVID-19 2020-10-15 Completed [facility] PFIZER VACCINE 00:00:00 [facility] SARS-COV-2 COVID-19 2020-10-15 Completed [facility] PFIZER VACCINE 00:00:00 [facility] SARS-COV-2 COVID-19 2020-10-15 Completed [facility] PFIZER VACCINE 00:00:00 [facility] SARS-COV-2 COVID-19 2020-10-15 Completed [facility] PFIZER VACCINE 00:00:00 [facility] SARS-COV-2 COVID-19 2020-10-15 Completed [facility] PFIZER VACCINE 00:00:00 [facility] SARS-COV-2 COVID-19 2020-10-15 Completed [facility] PFIZER VACCINE 00:00:00 [facility] SARS-COV-2 COVID-19 2020-10-15 Completed [facility] PFIZER VACCINE 00:00:00 [facility] SARS-COV-2 COVID-19 2020-10-15 Completed [facility] PFIZER VACCINE 00:00:00 [facility] SARS-COV-2 COVID-19 2020-10-15 Completed [facility] PFIZER VACCINE 00:00:00 [facility] SARS-COV-2 COVID-19 2020-10-15 Completed [facility] PFIZER VACCINE 00:00:00 [facility] SARS-COV-2 COVID-19 2020-10-15 Completed [facility] PFIZER VACCINE 00:00:[address] [facility] SARS-COV-2 COVID-19 2020-10-15 Completed [facility] PFIZER VACCINE 00:00:00 [facility] SARS-COV-2 COVID-19 2020-10-15 Completed [facility] PFIZER VACCINE 00:00:00 [facility] SARS-COV-2 COVID-19 2020-10-15 Completed [facility] PFIZER VACCINE 00:00:00 [facility] SARS-COV-2 COVID-19 2020-10-15 Completed [facility] PFIZER VACCINE 00:00:00 [facility] SARS-COV-2 COVID-19 2020-10-15 Completed [facility] PFIZER VACCINE 00:00:00 [facility] SARS-COV-2 COVID-19 2020-10-15 Completed [facility] PFIZER VACCINE 00:00:00 [facility] SARS-COV-2 COVID-19 2020-10-15 Completed [facility] PFIZER VACCINE 00:00:00 [facility] SARS-COV-2 COVID-19 2020-10-15 Completed [facility] PFIZER VACCINE 00:00:00 [facility] SARS-COV-2 COVID-19 2020-10-15 Completed [facility] PFIZER VACCINE 00:00:00 [facility] SARS-COV-2 COVID-19 2020-10-15 Completed [facility] PFIZER VACCINE 00:00:00 [facility] SARS-COV-2 COVID-19 2020-10-15 Completed [facility] PFIZER VACCINE 00:00:00 [facility] SARS-COV-2 COVID-19 2020-10-15 Completed [facility] PFIZER VACCINE 00:00:00 [facility] SARS-COV-2 COVID-19 2020-10-15 Completed [facility] PFIZER VACCINE 00:00:00 [facility] SARS-COV-2 COVID-19 2020-10-15 Completed [facility] PFIZER VACCINE 00:00:00 [facility] SARS-COV-2 COVID-19 2020-10-15 Completed [facility] PFIZER VACCINE 00:00:00 [facility] SARS-COV-2 COVID-19 2020-10-15 Completed [facility] PFIZER VACCINE 00:00:00 [facility] SARS-COV-2 COVID-19 2020-10-15 Completed [facility] PFIZER VACCINE 00:00:00 [facility] SARS-COV-2 COVID-19 2020-10-15 Completed [facility] PFIZER VACCINE 00:00:00 [facility] SARS-COV-2 COVID-19 2020-10-15 Completed [facility] PFIZER VACCINE 00:00:00 [facility] SARS-COV-2 COVID-19 2020-09-22 Completed [facility] PFIZER VACCINE 00:00:00 [facility] SARS-COV-2 COVID-19 2020-09-22 Completed [facility] PFIZER VACCINE 00:00:00 [facility] SARS-COV-2 COVID-19 2020-09-22 Completed [facility] PFIZER VACCINE 00:00:00 [facility] SARS-COV-2 COVID-19 2020-09-22 Completed [facility] PFIZER VACCINE 00:00:00 [facility] SARS-COV-2 COVID-19 2020-09-22 Completed [facility] PFIZER VACCINE 00:00:00 [facility] SARS-COV-2 COVID-19 2020-09-22 Completed [facility] PFIZER VACCINE 00:00:00 [facility] SARS-COV-2 COVID-19 2020-09-22 Completed [facility] PFIZER VACCINE 00:00:00 [facility] SARS-COV-2 COVID-19 2020-09-22 Completed [facility] PFIZER VACCINE 00:00:00 [facility] SARS-COV-2 COVID-19 2020-09-22 Completed [facility] PFIZER VACCINE 00:00:00 [facility] SARS-COV-2 COVID-19 2020-09-22 Completed [facility] PFIZER VACCINE 00:00:00 [facility] SARS-COV-2 COVID-19 2020-09-22 Completed [facility] PFIZER VACCINE 00:00:00 [facility] SARS-COV-2 COVID-19 2020-09-22 Completed [facility] PFIZER VACCINE 00:00:00 [facility] SARS-COV-2 COVID-19 2020-09-22 Completed [facility] PFIZER VACCINE 00:00:00 [facility] SARS-COV-2 COVID-19 2020-09-22 Completed [facility] PFIZER VACCINE 00:00:00 [facility] SARS-COV-2 COVID-19 2020-09-22 Completed [facility] PFIZER VACCINE 00:00:00 [facility] SARS-COV-2 COVID-19 2020-09-22 Completed [facility] PFIZER VACCINE 00:00:00 [facility] SARS-COV-2 COVID-19 2020-09-22 Completed [facility] PFIZER VACCINE 00:00:00 [facility] SARS-COV-2 COVID-19 2020-09-22 Completed [facility] PFIZER VACCINE 00:00:00 [facility] SARS-COV-2 COVID-19 2020-09-22 Completed [facility] PFIZER VACCINE 00:00:00 [facility] SARS-COV-2 COVID-19 2020-09-22 Completed [facility] PFIZER VACCINE 00:00:00 [facility] SARS-COV-2 COVID-19 2020-09-22 Completed [facility] PFIZER VACCINE 00:00:00 [facility] SARS-COV-2 COVID-19 2020-09-22 Completed [facility] PFIZER VACCINE 00:00:00 [facility] SARS-COV-2 COVID-19 2020-09-22 Completed [facility] PFIZER VACCINE 00:00:00 [facility] SARS-COV-2 COVID-19 2020-09-22 Completed [facility] PFIZER VACCINE 00:00:00 [facility] SARS-COV-2 COVID-19 2020-09-22 Completed [facility] PFIZER VACCINE 00:00:00 [facility] SARS-COV-2 COVID-19 2020-09-22 Completed [facility] PFIZER VACCINE 00:00:00 [facility] SARS-COV-2 COVID-19 2020-09-22 Completed [facility] PFIZER VACCINE 00:00:00 [facility] SARS-COV-2 COVID-19 2020-09-22 Completed [facility] PFIZER VACCINE 00:00:00 [facility] SARS-COV-2 COVID-19 2020-09-22 Completed [facility] PFIZER VACCINE 00:00:00 [facility] SARS-COV-2 COVID-19 2020-09-22 Completed [facility] PFIZER VACCINE 00:00:00 [facility] SARS-COV-2 COVID-19 2020-09-22 Completed [facility] PFIZER VACCINE 00:00:00 [facility] SARS-COV-2 COVID-19 2020-09-22 Completed [facility] PFIZER VACCINE 00:00:00 [facility] SARS-COV-2 COVID-19 2020-09-22 Completed [facility] PFIZER VACCINE 00:00:00 [facility] SARS-COV-2 COVID-19 2020-09-22 Completed [facility] PFIZER VACCINE 00:00:00 [facility] SARS-COV-2 COVID-19 2020-09-22 Completed [facility] PFIZER VACCINE 00:00:00 [facility] SARS-COV-2 COVID-19 2020-09-22 Completed [facility] PFIZER VACCINE 00:00:00 [facility] SARS-COV-2 COVID-19 2020-09-22 Completed [facility] PFIZER VACCINE 00:00:00 [facility] SARS-COV-2 COVID-19 2020-09-22 Completed [facility] PFIZER VACCINE 00:00:00 [facility] SARS-COV-2 COVID-19 2020-09-22 Completed [facility] PFIZER VACCINE 00:00:00 [facility] SARS-COV-2 COVID-19 2020-09-22 Completed [facility] PFIZER VACCINE 00:00:00 [facility] SARS-COV-2 COVID-19 2020-09-22 Completed [facility] PFIZER VACCINE 00:00:00 [facility] SARS-COV-2 COVID-19 2020-09-22 Completed [facility] PFIZER VACCINE 00:00:00 [facility] SARS-COV-2 COVID-19 2020-09-22 Completed [facility] PFIZER VACCINE 00:00:00 [facility] SARS-COV-2 COVID-19 2020-09-22 Completed [facility] PFIZER VACCINE 00:00:00 [facility] SARS-COV-2 COVID-19 2020-09-22 Completed [facility] PFIZER VACCINE 00:00:00 [facility] SARS-COV-2 COVID-19 2020-09-22 Completed [facility] PFIZER VACCINE 00:00:00 [facility] SARS-COV-2 COVID-19 2020-09-22 Completed [facility] PFIZER VACCINE 00:00:00 [facility] SARS-COV-2 COVID-19 2020-09-22 Completed [facility] PFIZER VACCINE 00:00:00 [facility] SARS-COV-2 COVID-19 2020-09-22 Completed [facility] PFIZER VACCINE 00:00:00 [facility] SARS-COV-2 COVID-19 2020-09-22 Completed [facility] PFIZER VACCINE 00:00:00 [facility] SARS-COV-2 COVID-19 2020-09-22 Completed [facility] PFIZER VACCINE 00:00:00 [facility] SARS-COV-2 COVID-19 2020-09-22 Completed [facility] PFIZER VACCINE 00:00:00 [facility] SARS-COV-2 COVID-19 2020-09-22 Completed [facility] PFIZER VACCINE 00:00:00 [facility] SARS-COV-2 COVID-19 2020-09-22 Completed [facility] PFIZER VACCINE 00:00:00 [facility] SARS-COV-2 COVID-19 2020-09-22 Completed [facility] PFIZER VACCINE 00:00:00 [facility] SARS-COV-2 COVID-19 2020-09-22 Completed [facility] PFIZER VACCINE 00:00:00 [facility] SARS-COV-2 COVID-19 2020-09-22 Completed [facility] PFIZER VACCINE 00:00:00 [facility] SARS-COV-2 COVID-19 2020-09-22 Completed [facility] PFIZER VACCINE 00:00:00 [facility] SARS-COV-2 COVID-19 2020-09-22 Completed [facility] PFIZER VACCINE 00:00:00 [facility] SARS-COV-2 COVID-19 2020-09-22 Completed [facility] PFIZER VACCINE 00:00:00 [facility] SARS-COV-2 COVID-19 2020-09-22 Completed [facility] PFIZER VACCINE 00:00:00 [facility] SARS-COV-2 COVID-19 2020-09-22 Completed [facility] PFIZER VACCINE 00:00:00 [facility] SARS-COV-2 COVID-19 2020-09-22 Completed [facility] PFIZER VACCINE 00:00:00 [facility] SARS-COV-2 COVID-19 2020-09-22 Completed [facility] PFIZER VACCINE 00:00:00 [facility] SARS-COV-2 COVID-19 2020-09-22 Completed [facility] PFIZER VACCINE 00:00:00 [facility] SARS-COV-2 COVID-19 2020-09-22 Completed [facility] PFIZER VACCINE 00:00:00 [facility] SARS-COV-2 COVID-19 2020-09-22 Completed [facility] PFIZER VACCINE 00:00:00 [facility] SARS-COV-2 COVID-19 2020-09-22 Completed [facility] PFIZER VACCINE 00:00:00 [facility] SARS-COV-2 COVID-19 2020-09-22 Completed [facility] PFIZER VACCINE 00:00:00 [facility] SARS-COV-2 COVID-19 2020-09-22 Completed [facility] PFIZER VACCINE 00:00:00 [facility] Vital Signs Vital Name Observation Time Observation Value Comments Source Body height 2022-09-10 17:59:00 157.5 cm [facility] Body weight 2022-09-10 17:59:00 81.647 kg [facility] BMI 2022-09-10 17:59:00 32.92 kg/m2 [facility] Systolic blood 2022-08-16 18:24:00 125 mm[Hg] [facility] Diastolic blood 2022-08-16 18:24:00 77 mm[Hg] [facility] Heart rate 2022-08-16 18:24:00 80 /min [facility] Body temperature 2022-08-16 18:24:00 36.72 Laura [facility] Respiratory rate 2022-08-16 18:24:00 16 /min [facility] Body height 2022-08-16 18:24:00 157.5 cm [facility] Body weight 2022-08-16 18:24:00 81.647 kg [facility] BMI 2022-08-16 18:24:00 32.92 kg/m2 [facility] Oxygen saturation in 2022-08-16 18:24:00 98 /min [facility] by [facility]xim[facility] Systolic blood 2022-08-09 13:13:00 106 mm[Hg] [facility] Diastolic blood 2022-08-09 13:13:00 68 mm[Hg] [facility] Heart rate 2022-08-09 13:13:00 92 /min [facility] Body height 2022-08-09 13:13:00 157.5 cm [facility] Body weight 2022-08-09 13:13:00 81.647 kg [facility] BMI 2022-08-09 13:13:00 32.92 kg/m2 [facility] Systolic blood 2022-08-06 22:21:00 142 mm[Hg] [facility] Diastolic blood 2022-08-06 22:21:00 90 mm[Hg] [facility] Heart rate 2022-08-06 22:21:00 87 /min [facility] Body temperature 2022-08-06 22:21:00 37 Laura [facility] Respiratory rate 2022-08-06 22:21:00 16 /min [facility] Body weight 2022-08-06 22:21:00 81.647 kg [facility] BMI 2022-08-06 22:21:00 32.92 kg/m2 [facility] Oxygen saturation in 2022-08-06 22:21:00 98 /min [facility] Systolic blood 2022-07-15 19:05:00 122 mm[Hg] [facility] Diastolic blood 2022-07-15 19:05:00 75 mm[Hg] [facility] Heart rate 2022-07-15 19:05:00 76 /min [facility] Body height 2022-07-15 19:05:00 157.5 cm [facility] Body weight 2022-07-15 19:05:00 81.647 kg [facility] BMI 2022-07-15 19:05:00 32.92 kg/m2 [facility] Systolic blood 2022-07-04 15:24:00 122 mm[Hg] [facility] Diastolic blood 2022-07-04 15:24:00 84 mm[Hg] [facility] Heart rate 2022-07-04 15:24:00 84 /min [facility] Systolic blood 2022-07-04 14:26:00 109 mm[Hg] [facility] Diastolic blood 2022-07-04 14:26:00 70 mm[Hg] [facility] Heart rate 2022-07-04 14:26:00 89 /min [facility] Respiratory rate 2022-07-04 14:26:00 18 /min [facility] Body height 2022-07-04 14:26:00 157.5 cm [facility] Body weight 2022-07-04 14:26:00 81.647 kg [facility] BMI 2022-07-04 14:26:00 32.92 kg/m2 [facility] Oxygen saturation in 2022-07-04 14:26:00 100 /min [facility] Systolic blood 2022-07-02 04:00:00 124 mm[Hg] [facility] Diastolic blood 2022-07-02 04:00:00 75 mm[Hg] [facility] Heart rate 2022-07-02 04:00:00 81 /min [facility] Respiratory rate 2022-07-02 04:00:00 21 /min [facility] Oxygen saturation in 2022-07-02 04:00:00 95 /min [facility] Body temperature 2022-07-02 01:36:00 37.22 Laura [facility] Body height 2022-07-02 01:36:00 157.5 cm [facility] Body weight 2022-07-02 01:36:00 85.276 kg [facility] BMI 2022-07-02 01:36:00 34.39 kg/m2 [facility] Systolic blood 2022-07-01 19:25:00 127 mm[Hg] [facility] Diastolic blood 2022-07-01 19:25:00 79 mm[Hg] [facility] Respiratory rate 2022-07-01 19:25:00 18 /min [facility] Oxygen saturation in 2022-07-01 19:25:00 95 /min [facility] Heart rate 2022-07-01 19:20:00 75 /min [facility] Body temperature 2022-07-01 16:27:00 36.56 Laura [facility] Body height 2022-06-17 20:00:00 157.5 cm [facility] Body weight 2022-06-17 20:00:00 79.379 kg [facility] BMI 2022-06-17 20:00:00 32.01 kg/m2 [facility] Systolic blood 2022-07-01 17:05:00 138 mm[Hg] [facility] Diastolic blood 2022-07-01 17:05:00 88 mm[Hg] [facility] Oxygen saturation in 2022-07-01 17:05:00 93 /min [facility] Heart rate 2022-07-01 17:00:00 87 /min [facility] Respiratory rate 2022-07-01 17:00:00 15 /min [facility] Body temperature 2022-07-01 16:27:00 36.56 Laura [facility] Body height 2022-06-17 20:00:00 157.5 cm [facility] Body weight 2022-06-17 20:00:00 79.379 kg [facility] BMI 2022-06-17 20:00:00 32.01 kg/m2 [facility] Systolic blood 2022-06-27 13:59:00 135 mm[Hg] [facility] Diastolic blood 2022-06-27 13:59:00 79 mm[Hg] [facility] Heart rate 2022-06-27 13:59:00 80 /min [facility] Body height 2022-06-27 13:59:00 157.5 cm [facility] Body weight 2022-06-27 13:59:00 85.322 kg [facility] BMI 2022-06-27 13:59:00 34.40 kg/m2 [facility] Oxygen saturation in 2022-06-27 13:59:00 95 /min [facility] Respiratory rate 2022-05-08 00:05:00 16 /min [facility] Oxygen saturation in 2022-05-08 00:05:00 96 /min [facility] Systolic blood 2022-05-07 22:20:00 138 mm[Hg] [facility] Diastolic blood 2022-05-07 22:20:00 82 mm[Hg] [facility] Heart rate 2022-05-07 22:20:00 78 /min [facility] Body temperature 2022-05-07 22:20:00 37.06 Laura [facility] Body height 2022-05-07 22:20:00 157.5 cm [facility] Body weight 2022-05-07 22:20:00 81.647 kg [facility] BMI 2022-05-07 22:20:00 32.92 kg/m2 [facility] Body height 2022-05-02 16:21:00 157.5 cm [facility] Body weight 2022-05-02 16:21:00 82.373 kg [facility] BMI 2022-05-02 16:21:00 33.22 kg/m2 [facility] Systolic blood 2022-04-23 14:33:00 138 mm[Hg] [facility] Diastolic blood 2022-04-23 14:33:00 85 mm[Hg] [facility] Heart rate 2022-04-23 14:33:00 77 /min [facility] Respiratory rate 2022-04-23 14:33:00 18 /min [facility] Body height 2022-04-23 14:33:00 157.5 cm [facility] Body weight 2022-04-23 14:33:00 85.276 kg [facility] BMI 2022-04-23 14:33:00 34.39 kg/m2 [facility] Systolic blood 2022-04-10 20:23:00 149 mm[Hg] [facility] Diastolic blood 2022-04-10 20:23:00 86 mm[Hg] [facility] Heart rate 2022-04-10 20:23:00 84 /min [facility] Body height 2022-04-10 20:14:00 157.5 cm [facility] Body weight 2022-04-10 20:14:00 85.186 kg [facility] BMI 2022-04-10 20:14:00 34.35 kg/m2 [facility] Body Temperature 2019-02-24 19:15:00 98.0 [degF] [facility] Heart Rate 2019-02-24 19:15:00 94 /min [facility] Respiratory rate 2019-02-24 19:15:00 20 /[facility] [place] [employer] BP Systolic 2019-02-24 19:15:00 134 mm[Hg] [facility] BP Diastolic 2019-02-24 19:15:00 71 mm[Hg] [facility] Heart Rate 2019-02-24 18:32:00 94 /min [facility] Respiratory rate 2019-02-24 18:32:00 20 /min [facility] [place] [employer] BP Systolic 2019-02-24 18:32:00 134 mm[Hg] [facility] BP Diastolic 2019-02-24 18:32:00 71 mm[Hg] [facility] [place] [employer] Weight 2019-02-24 18:32:00 180 [lb_av] [facility] BMI (Body Mass 2019-02-24 18:32:00 32.9 kg/m2 [facility] Health Index) Procedures Procedure Date / Time Performing Clinician Source Performed ASSIGNMENT OF BENEFITS 2022-08-16 19:48:32 Doctor Unassigned, [facility] [place] [facility] URIC ACID 2022-08-16 19:29:00 Juan Rodas [facility] BASIC METABOLIC PANEL 2022-08-16 19:29:00 [facility] ([facility], K, CL, CO2, GLUCOSE, Medica l Branch BUN, CREATININE, CA) SEDIMENTATION RATE 2022-08-16 19:29:00 Juan Rodas [facility] CBC WITH DIFF 2022-08-16 19:29:00 Juan Rodas [facility] XR KNEE 3 VW RIGHT 2022-08-16 19:22:07 Juan Rodas [facility] CONSENT/REFUSAL FOR 2022-08-16 18:10:34 Doctor Unassigned, [facility] DIAGNOSIS AND TREATMENT [place] [facility] BASIC METABOLIC PANEL 2022-08-06 22:45:00 Mely Hidalgo [facility] (NA, K, CL, CO2, GLUCOSE, Medica l Branch BUN, CREATININE, CA) SEDIMENTATION RATE 2022-08-06 22:45:00 Mely Hidalgo [facility] CBC WITH DIFF 2022-08-06 22:45:00 Mely Hidalgo [facility] CONSENT/REFUSAL FOR 2022-08-06 22:07:47 Doctor Sarmad [facility] DIAGNOSIS AND TREATMENT [facility] CBC WITH DIFF 2022-07-04 15:23:00 Daniel Bal [place] [facility] CONSENT/REFUSAL FOR 2022-07-02 01:22:31 Doctor Sarmad [facility] DIAGNOSIS AND TREATMENT [place] [facility] XR KNEE <3 VW RIGHT 2022-07-01 17:28:16 Clover Heath [facility] TOTAL KNEE ARTHROPLASTY 2022-07-01 14:03:00 [facility] 2022-07-01 12:54:00 Clover Heath [facility] URINALYSIS 2022-07-01 12:54:00 Clover Heath [facility] DSU PRE-OP 2022-07-01 05:01:00 Doctor Sarmad, [facility] [place] [facility] INSURANCE CORRESPONDENCE 2022-06-19 05:01:00 Doctor Sarmad, [facility] Name [facility] EXTERNAL PROVIDER RECORDS 2022-06-06 05:01:00 Doctor Sarmad, [facility] [place] [facility] ASSIGNMENT OF BENEFITS 2022-06-05 16:10:34 Doctor Sarmad, [facility] Name Medical [place] XR CHEST 2 VW 2022-06-03 15:31:39 Clover Heath [facility] ASSIGNMENT OF BENEFITS 2022-06-03 14:39:37 [facility] INSURANCE CORRESPONDENCE 2022-05-17 05:01:00 Doctor Sarmad, [facility] Name [facility] RAPID INFLUENZA A/B 2022-05-07 22:58:00 Marylou Soria [facility] COVID-19 (ID NOW RAPID 2022-05-07 22:58:00 Marylou Soria [facility] TESTING) [facility] DSU PRE-OP 2022-05-06 06:01:00 Doctor Sarmad [facility] ASSIGNMENT OF BENEFITS 2022-04-10 20:09:33 Doctor Unassigned [facility] [place] [facility] INSURANCE CORRESPONDENCE 2021-05-12 06:01:00 Doctor Nohemissbarbra, [facility] Plan of Care Planned Activity Planned Date Details Comments Source Future Scheduled Test 2022-10-03 Screening for [facility] dist 12:30:30 malignant neoplasm of Hospit al colon (procedure) [code = 131403174] Future Scheduled Test 2022-10-03 Screening for [facility] dist 12:30:30 malignant neoplasm of Hospit al colon (procedure) [code = 910147871] Future Scheduled Test 2022-10-03 Screening for Metho dist 12:30:30 malignant neoplasm of Hospit al colon (procedure) [code = 968434268] Future Scheduled Test 2022-10-03 Screening for Metho dist 12:30:30 malignant neoplasm of Hospit al cervix (procedure) [code = 940295373] Future Scheduled Test 2022-10-03 BREAST CANCER Metho dist 12:30:30 SCREENING [code = Hospital BREAST CANCER SCREENING] Future Scheduled Test 2022-10-03 Screening for Metho dist 12:30:30 malignant neoplasm of Hospit al colon (procedure) [code = 110727551] Future Scheduled Test 2022-10-03 Screening for Metho dist 12:30:30 malignant neoplasm of Hospit al colon (procedure) [code = 810498280] Future Scheduled Test 2022-10-03 SHINGLES VACCINES (1 [...] of Hospit al colon (procedure) [code = 217743334] Future Scheduled Test 2022-10-03 Screening for Metho dist 12:30:30 malignant neoplasm of Hospit al colon (procedure) [code = 649272386] Future Scheduled Test 2022-10-03 Screening for Metho dist 12:30:30 malignant neoplasm of Hospit al colon (procedure) [code = 906231565] Future Scheduled Test 2022-10-03 Screening for Metho dist 12:30:30 malignant neoplasm of Hospit al cervix (procedure) [code = 508304398] Future Scheduled Test 2022-10-03 BREAST CANCER Metho dist 12:30:30 SCREENING [code = Hospital BREAST CANCER SCREENING] Future Scheduled Test 2022-10-03 Screening for Metho dist 12:30:30 malignant neoplasm of Hospit al colon (procedure) [code = 346069941] Future Scheduled Test 2022-10-03 Screening for Metho dist 12:30:30 malignant neoplasm of Hospit al colon (procedure) [code = 913350794] Future Scheduled Test 2022-10-03 SHINGLES VACCINES (1 [...] of Hospit al colon (procedure) [code = 513673569] Future Scheduled Test 2022-10-03 Screening for Metho dist 12:30:30 malignant neoplasm of Hospit al colon (procedure) [code = 392029909] Future Scheduled Test 2022-10-03 Screening for Metho dist 12:30:30 malignant neoplasm of Hospit al colon (procedure) [code = 269439389] Future Scheduled Test 2022-10-03 Screening for Metho dist 12:30:30 malignant neoplasm of Hospit al cervix (procedure) [code = 315741497] Future Scheduled Test 2022-10-03 BREAST CANCER Metho dist 12:30:30 SCREENING [code = Hospital BREAST CANCER SCREENING] Future Scheduled Test 2022-10-03 Screening for Metho dist 12:30:30 malignant neoplasm of Hospit al colon (procedure) [code = 722033013] Future Scheduled Test 2022-10-03 Screening for Metho dist 12:30:30 malignant neoplasm of Hospit al colon (procedure) [code = 652382215] Future Scheduled Test 2022-10-03 SHINGLES VACCINES (1 [...] of Hospit al cervix (procedure) [code = 258105969] Future Scheduled Test 2022-07-04 BREAST CANCER Metho [...] of Hospit al cervix (procedure) [code = 635075507] Future Scheduled Test 2022-06-06 BREAST CANCER Metho [...] [facility] 10:44:07 (procedure) [code = Hospital 079935533] Future Scheduled Test 2022-04-16 Screening for Metho dist 10:44:07 malignant neoplasm of Hospit al cervix (procedure) [code = 908731235] Future Scheduled Test 2022-04-16 BREAST CANCER Metho [...] [facility] 06:17:38 (procedure) [code = Hospital 540990021] Future Scheduled Test 2022-03-28 Screening for Metho dist 06:17:38 malignant neoplasm of Hospit al cervix (procedure) [code = 369997292] Future Scheduled Test 2022-03-28 BREAST CANCER Metho [...] [facility] 20:21:57 (procedure) [code = Hospital 429051300] Future Scheduled Test 2022-02-21 Screening for Metho dist 20:21:57 malignant neoplasm of Hospit al cervix (procedure) [code = 104712468] Future Scheduled Test 2022-02-21 BREAST CANCER Metho [...] [facility] 12:20:25 (procedure) [code = Hospital 061524125] Future Scheduled Test 2021-10-31 Screening for Metho dist 12:20:25 malignant neoplasm of Hospit al cervix (procedure) [code = 811207106] Future Scheduled Test 2021-10-31 BREAST CANCER Metho [...] [facility] 09:31:21 (procedure) [code = Hospital 110991342] Future Scheduled Test 2021-10-25 Screening for Metho dist 09:31:21 malignant neoplasm of Hospit al cervix (procedure) [code = 461501890] Future Scheduled Test 2021-10-25 BREAST CANCER Metho [...] Hospital VACCINE] Future Scheduled Test Streptococcus pyogenes [facility] culture [code = LIVE HCIS 83530-4] Goal Patient referral [code [facility] = [id number] ] LIVE [facility] Instructions [place] [facility] LIVE [facility] Instructions [place] [facility] (DC) LIVE HCIS Encounters Start End Encounter Admission Attending Care Care Encounter Source Date/Time Date/Time Type Type Clinicians Facility Department ID 2022-05-28 [facility] [id number] Univers 15:05:28 [facility] 2021-04-05 Outpatient [facility] [id number] Univers 13:48:24 [facility] 2021-03-14 Out[facility] [id number] Univers 11:49:06 [facility] 2020-12-30 Emergency [facility] [id number] Univers 16:14:45 [facility] 2020-12-30 Emergency [facility] [id number] Univers 05:54:41 [facility] 2022-09-10 2022-09-10 Outpatient Issa BAL [facility] [id number] Univers 13:02:49 23:59:00 [facility] 2022-09-10 2022-09-10 Office Mally [facility] 1.2.840.114 [id number] Univers 13:00:00 13:15:00 Visit [facility] 350.1.13.10 it y of [place] 4.2.7.2.686 Bill as CHRISTINA?BLEA [id number] Hi berta [address] OFFICE [facility] 2022-08-22 2022-08-22 Outpatient Issa BAL [facility] [id number] Univers 08:30:00 08:30:00 DANIEL estefania [facility] 2022-08-16 2022-08-16 Emergency [facility] [id number] Univers 13:26:00 16:32:00 JUAN odell [facility] 2022-08-16 2022-08-16 Emergency [place] 1.2.840.114 10 [id number] Univers 13:26:00 16:32:00 Juan LU 350.1.13.10 i ty of [place] 4.2.7.2.686 [place] [facility] [id number] [address] 2022-08-16 2022-08-16 Telephone [facility] 1.2.840.114 10 [id number] Univers 00:00:00 00:00:00 [place]over [place] 350.1.13.10 it y [facility] 4.2.7.2.686 Bill as CHRISTINA?BLEA [id number] Hi berta [address] OFFICE [facility] 2022-08-15 2022-08-15 Outpatient Issa BAL [facility] [id number] Univers 13:00:00 13:00:00 DANIEL estefania [facility] 2022-08-09 2022-08-09 Office [facility] 1.2.738.796 [id number] Univers 08:30:00 08:30:00 Visit Clover Mandujano [place] 350.1.13.10 it y [facility] 4.2.7.2.686 Bill as CHRISTINA?BLEA [id number] Hi berta [address] OFFICE [facility] 2022-08-09 2022-08-09 Outpatient R KUMAR [facility] [id number] Univers 08:30:00 08:24:23 CLOVER odell [facility] 2022-08-07 2022-08-07 Telephone [facility] 1.2.840.114 10 [id number] Univers 00:00:00 00:00:00 Clover [place] 350.1.13.10 it y of [place] 4.2.7.2.686 Bill as CHRISTINA?BLEA [id number] Me berta SHAW [address] [facility] OFFICE [facility] 2022-08-06 2022-08-06 Emergency X [facility] ERT [id number] Univers 17:24:00 19:24:00 CYNISE ity of [facility] 2022-08-06 2022-08-06 Emergency [facility] 1.2.701.044 [id number] Univers 17:24:00 19:24:00 Cynise [facility] 350.1.13.10 i [place]2.7.2.[place] [id number] [address] 2022-08-06 2022-08-06 Telephone Kumar [facility] 1.2.840.114 10 [id number] Univers 00:00:00 00:00:00 Clover L HEALTH 350.1.13.10 it y of [place] 4.2.7.2.686 Bill as CHRISTINA?BLEA [id number] Hi berta SHAW [address] [facility] OFFICE [facility] 2022-07-26 2022-07-26 Telephone [facility] 1.2.206.392 [id number] Univers 00:00:00 00:00:00 Daniel S HEALTH 350.1.13.10 it y of [place] 4.2.7.2.686 Bill as CHRISTINA?BLEA [phone] Me berta SHAW [address] [place] [address] 2022-07-25 2022-07-25 Telephone [facility] 1..682.520 [id number] Univers 00:00:00 00:00:00 Daniel S HEALTH 350.1.13.10 it y of [place] 4.2.7.2.686 Bill as CHRISTINA?BLEA [id number] Hi berta SHAW [address] [place] [address] 2022-07-15 2022-07-15 Outpatient R MALLY [facility] [id number] Univers 14:16:48 23:59:00 DANIEL odell of [facility] 2022-07-15 2022-07-15 Office [facility] 1..840.114 [id number] Univers 14:30:00 14:45:00 Visit [facility] 350.1.13.10 it y of [place] 4.2.7.2.686 Bill as CHRISTINA?BLEA [id number] Hi berta SHAW [address] [facility] 2022-07-11 2022-07-11 Telephone [facility] 1.2.840.114 [id number] Univers 00:00:00 00:00:00 [facility] 350.1.13.10 it y of [place] 4.2.7.2.686 Bill as CHRISTINA?BLEA [id number] Hi berta SHAW [address] [facility] 2022-07-10 2022-07-10 Telephone [facility] 1.2.199.728 [id number] Univers 00:00:00 [facility]:00:[facility] 350.1.13.10 it y of [place] 4.2.7.2.686 Bill as CHRISTINA?BLEA [id number] Hi berta SHAW [address] [place] [address] 2022-07-08 2022-07-08 Outpatient Issa BAL [facility] [id number] Univers 14:15:00 14:15:00 [facility] 2022-07-05 2022-07-05 Telephone [facility] 1.2.494.199 [id number] Univers 00:00:00 00:00:00 [facility] 350.1.13.10 it y of [place] 4.2.7.2.686 Bill as CHRISTINA?BLEA [id number] Hi berta SHAW [address] [place] [address] 2022-07-04 2022-07-04 Outpatient [facility] [id number] Univers 09:15:00 11:49:40 [facility] 2022-07-04 2022-07-04 Office [facility] 1.2.840.114 [id number] Univers 09:15:00 11:49:40 [facility] 350.1.13.10 it y of [place] 4.2.7.2.686 Bill as CHRSITINA?BLEA [id number] Hi berta SHAW [address] [place] [address] 2022-07-04 2022-07-04 [facility], Ang - Db [facility] 1.2.840.1 14 [id number] Univers 10:30:00 10:45:00 Visit Daniel Bal [facility] 350.1.13.10 ity of [facility] 4.2.7.2.686 Bill as CHRISTINA?BLEA [phone] Hi berta ELVIN [address] [place] [address] MEDICAL OFFICE BUILDING 2022-07-01 2022-07-02 Emergency X [facility] ERT [id number] Univers 20:40:00 01:05:00 MARYLOU ity of [facility] 2022-07-01 2022-07-02 Emergency [facility] 1.2.062.011 [id number] Univers 20:40:00 01:05:00 Marylou S TABITHA 350.1.13.10 i ty of [facility] 4.2.7.2.686 [place] [id number] 084 Branch 2022-07-01 2022-07-01 Outpatient R [facility] S[facility] [id number] Univers 07:03:00 14:55:00 CLOVER ity of [facility] 2022-07-01 2022-07-01 [facility] 1.2.840.114 [id number] Univers 07:03:00 14:55:00 Encounter Clover LU 350.1.13.10 [place] 4.2.7.2.686 [place]ICAL [id number] [facility] 071 Branch 2022-07-01 2022-07-01 Surgery [facility] 1.2.925.337 [id number] Univers 09:50:00 12:08:00 Clover Nazia LU 350.1.13.10 i ty [place] 4.2.7.2.686 [place] [id number] [facility] 020 Branch 2022-07-01 2022-07-01 Orders Doctor LAGOS 1.2.840.114 [id number] Univers 00:00:00 00:00:00 Only Unassigned, [place] 350.1.13.10 ity of [place] [facility] 4.2.7.2.686 Bill as [id number] [address] 2022-06-27 2022-06-27 Office [facility] 1.2.840.114 [id number] Univers 09:00:00 09:15:00 Visit Daniel [facility] 350.1.13.10 it y of [place] 4.2.7.2.686 Bill as CHRISTINA?BLEA [id number] Hi berta SHAW [address] [facility] OFFICE [facility] 2022-06-27 2022-06-27 Outpatient Issa [facility] [id number] Univers 09:00:00 09:00:00 [facility] 2022-06-24 2022-06-24 Outpatient Issa [facility] [id number] Univers 13:45:00 13:45:00 [facility] 2022-06-20 2022-06-20 Telephone [facility] 1.2.840.114 10 [id number] Univers 00:00:00 00:00:00 [facility] [place] 350.1.13.10 it y of [place] 4.2.7.2.686 Bill as CHRISTINA?BLEA [phone] Hi berta SHAW [address] [place] [address] OFFICE [facility] 2022-06-19 2022-06-19 Telephone [facility] 1.2.840.114 10 [id number] Univers 00:00:00 00:00:00 Clover [place] 350.1.13.10 it y of [place] 4.2.7.2.686 Bill as CHRISTINA?BLEA [id number] Hi berta SHAW [address] [place] [address] OFFICE [facility] 2022-06-19 2022-06-19 Orders Doctor YOLIS 1.2.840.114 [id number] Univers 00:00:00 00:00:00 Only Unassigned, TIN 350.1.13.10 ity of [place] [facility] 4.2.7.2.686 Bill as [id number] [address] 2022-06-17 2022-06-17 Telephone [facility] 1.2.840.114 10 [id number] Univers 00:00:00 00:00:00 Clover HEALTH 350.1.13.10 it y of [place] 4.2.7.2.686 Bill as CHRISTINA?BLEA [id number] Hi berta SHAW [address] [place] MEDICAL OFFICE [facility] 2022-06-13 2022-06-13 Outpatient R MALLY [facility] [id number] Univers 08:15:00 08:15:00 DANIEL ity [facility] 2022-06-06 2022-06-06 Telephone Mally [facility] 1.2.020.648 [id number] Univers 00:00:00 00:00:00 Daniel S [facility] 350.1.13.10 it y [facility] 4.2.7.2.686 Bill as CHRISTINA?BLEA [id number] Hi berta SHAW [address] [facility] 2022-06-06 2022-06-06 Orders Doctor YOLIS 1.2.840.114 [id number] Univers 00:00:00 00:00:00 Only Unassigned, TIN 350.1.13.10 ity of [place] [facility] 4.2.7.2.686 Bill as [id number] [address] 2022-06-05 2022-06-05 Laboratory Only, Adc Test [facility] 1.2.840. 114 [id number] Univers 09:30:00 09:45:00 Only Clover Heath 350.1.13.10 ity of [place] 4.2.7.2.686 [facility] [id number] [address] 2022-06-05 2022-06-05 Outpatient R KUMAR [facility] [id number] Univers 09:30:00 09:30:00 CLOVER odell [facility] 2022-06-05 2022-06-05 Orders Doctor LAGOS 1.2.840.114 [id number] Univers 00:00:00 00:00:00 Only Unassigned, TIN 350.1.13.10 ity of [place] [facility] 4.2.7.2.686 Bill as [id number] [address] 2022-06-05 2022-06-05 Telephone Kumar [facility] 1.2.840.114 10 [id number] Univers 00:00:00 00:00:00 Clover Mandujano HEALTH 350.1.13.10 it y [facility] 4.2.7.2.686 Bill as CHRISTINA?BLEA [id number] Hi dical KNEY [address] MEDICAL OFFICE [facility] 2022-06-03 2022-06-03 Bowling Ball Marker Harriett [facility] Main [facility] 1.2.8 40.114 [id number] Univers 09:45:00 10:00:00 Visit Clover Heath 350.1.13.10 ity of [place] 4.2.7.2.[address] [place] [facility] [id number] Hi inocenciocholo NAL [address] [facility] 2022-06-03 2022-06-03 Outpatient R [facility] [id number] Univers 09:52:23 09:52:23 CLOVER odell [facility] 2022-06-03 2022-06-03 Hospital [facility] 1.2.840.114 [id number] Univers 09:52:23 09:52:23 Encounter Clover LU 350.1.13.10 ity of [place] 4.2.7.2.686 [place] [id number] [facility] [address] 2022-06-03 2022-06-03 Orders Doctor YOLIS 1.2.840.114 [id number] Univers 00:00:00 00:00:00 Only Unassigned, TIN 350.1.13.10 ity of [place] [facility] 4.2.7.2.[id number] [facility] [address] 2022-05-28 2022-05-28 Telephone [facility] 1.2.840.114 10 [id number] Univers 00:00:00 00:00:00 Clover Mandujano [facility] 350.1.13.10 it y of [place] 4.2.7.2.686 Bill as CHRISTINA?BLEA [id number] Hi dical KNEY [address] [facility] OFFICE [facility] 2022-05-23 2022-05-23 Outpatient R MALLY [facility] [id number] Univers 08:30:00 08:30:00 DANIEL odell [facility] 2022-05-21 2022-05-21 Outpatient R ALE [facility] [id number] Univers 09:20:00 09:20:00 FERNANDO odell o f [facility] 2022-05-21 2022-05-21 Outpatient R KARLA [facility] [id number] Univers 08:40:00 08:40:00 NGA jose r [facility] 2022-05-17 2022-05-17 Orders Doctor YOLIS 1.2.840.114 [id number] Univers 00:00:00 00:00:00 Only Unassigned, T[place] 350.1.13.10 ity of [place] [facility] 4.2.7.2.686 Bill as [id number] [address] 2022-05-09 2022-05-09 Outpatient FOG_Brown_B AOSM AOSM 544 [id number] Traci 00:00:00 00:00:00 Trina [id number] Orth ope dic [facility] 2022-05-09 2022-05-09 Telephone [facility] 1.2.303.105 [id number] Univers 00:00:00 00:00:00 Daniel S HEALTH 350.1.13.10 it y [facility] 4.2.7.2.686 Bill as CHRISTINA?BLEA [phone] Hi diccholo SHAW [address] [place] [address] 2022-05-08 2022-05-08 Telephone [facility] [id number] Univers 00:00:00 00:00:00 Daniel S HEALTH [id number] it y of [place] [id number] Bill as CHRISTINA?BLEA [phone] Hi berta SHAW [address] [place] [address] 2022-05-08 2022-05-08 Telephone [facility] [id number] Univers 00:00:00 00:00:00 Clover L HEALTH [id number] it y of [place] [id number] Bill as CHRISTINA?BLEA [id number] Hi diccholo SHAW [address] [place] [address] 2022-05-07 2022-05-07 Emergency X ESTELLA [facility] ERT [id number] Univers 16:23:00 18:51:00 MARYLOU odell [facility] 2022-05-07 2022-05-07 Emergency [facility] 1.2.358.364 [id number] Univers 16:23:00 18:51:00 Marylou S TABITHA 350.1.13.10 i ty of [facility] 4.2.7.2.[place] [phone] [facility] 084 Alicia 2022-05-07 2022-05-07 Prep For Mally [facility] 1.2.840.114 [id number] Univers 00:00:00 00:00:00 Surgery [facility] 350.1.13.10 it y [facility] 4.2.7.2.686 Bill as CHRISTINA?BLEA [phone] Hi inocenciocholo FALL 198 Alicia MEDICAL OFFICE [facility] 2022-05-06 2022-05-06 Orders Doctor YOLIS 1.2.840.114 [id number] Univers 00:00:00 00:00:00 Only Unassigned, TIN 350.1.13.10 ity of [place] [facility] 4.2.7.2.[phone] [facility] 009 Alicia 2022-05-02 2022-05-02 Office [facility] 1.2.840.114 [id number] Univers 11:15:00 11:30:00 Visit [facility] 350.1.13.10 it y [facility] 4.2.7.2.686 Bill as CHRISTINA?BLEA [phone] Hi inocenciocholo SHAW 198 [facility] OFFICE [facility] 2022-05-02 2022-05-02 Outpatient R MALLY [facility] [id number] Univers 11:15:00 11:12:40 DANIEL ity of [facility] 2022-04-25 2022-04-25 Telephone [facility] 1.2.840.114 [id number] Univers 00:00:00 00:00:00 [facility] HEALTH 350.1.13.10 it y of [place] 4.2.7.2.686 Bill as CHRISTINA?BLEA [phone] Hi inocenciocholo [facility] 198 [facility] OFFICE [facility] 2022-04-23 2022-04-23 Outpatient R KARLA [facility] [id number] Univers 08:40:00 13:00:21 NGA odell [facility] 2022-04-23 2022-04-23 Office [facility] 1.2.840.114 [id number] Univers 08:40:00 09:20:00 Visit Nga LU 350.1.13.10 i ty of [place].2.[place] [phone] Hi dical [facility] 059 [facility] 2022-04-16 2022-04-16 Telephone [facility] 1.2.840.114 [id number] Univers 00:00:00 00:00:00 Clover MENDOZA 350.1.13.10 it y of [place] 4.2.7.2.686 Bill as CHRISTINA?BLEA [phone] [facility] 198 [facility] OFFICE [facility] 2022-04-10 2022-04-10 Outpatient R [facility] [id number] Univers 14:45:00 15:18:38 CLOVERYENY odell [facility] 2022-04-10 2022-04-10 Office [facility] 1.2.531.858 [id number] Univers 14:45:00 15:18:38 Visit Clover MENDOZA 350.1.13.10 it y of [place] 4.2.7.2.686 Bill as CHRISTINA?BLEA [id number] [address] OFFICE [facility] 2022-04-10 2022-04-10 Orders Doctor LAGOS 1.2.840.114 [id number] Univers 00:00:00 00:00:00 Only Unassigned, TIN 350.1.13.10 ity of [place] [facility] 4.2.7.2.686 Bill as [phone] [address] 2022-04-08 2022-04-08 Outpatient R KUMAR [facility] [id number] Univers 14:00:00 14:00:00 CLOVER odell [facility] 2021-12-27 2021-12-27 Outpatient R KUMAR [facility] [id number] Univers 08:30:00 08:30:00 CLOVER odell [facility] 2021-12-24 2021-12-24 Outpatient Issa BAL [facility] [id number] Univers 14:45:00 14:45:00 DANIEL odell [facility] 2021-12-19 2021-12-19 Telephone [facility] 1.2.840.114 [id number] Univers 00:00:00 00:00:00 Clover LU 350.1.13.10 i ty of [place].2.[place] [phone] Hi dical LETTY 198 [facility] 2021-11-25 2021-11-25 Outpatient FOG_Brown_B AOSM AOSM 544 4025-20 Traci 00:00:00 00:00:00 Trina [id number] [facility] 2021-11-14 2021-11-14 Outpatient FOG_Brown_B AOSM AOSM 544 4025-20 Traci 00:00:00 00:00:00 Trina [id number] [facility] 2021-11-11 2021-11-11 Outpatient FOG_Brown_B AOSM AOSM 544 4025-20 Traci 00:00:00 00:00:00 Trina [id number] [facility] 2021-08-31 2021-08-31 Subhash [facility] 1.2.840.114 [id number] Univers 00:00:00 00:00:00 Daniel MENDOZA 350.1.13.10 it y of [place] 4.2.7.2.686 Bill as CHRISTINA?BLEA [phone] Hi diccholo SHAW [address] [place] [address] 2021-07-23 2021-07-23 Refill [facility] 1.2.222.790 [id number] Univers 00:00:00 00:00:00 Clover Mandujano HEALTH 350.1.13.10 it y of [place] 4.2.7.2.686 Bill as CHRISTINA?BLEA [phone] Hi diccholo SHAW 198 [facility] 2021-06-06 2021-06-06 Outpatient FOG_Brown_B AOSM AOSM 544 4025-20 Traci 10:52:00 10:52:00 Trina [id number] [facility] 2021-06-06 2021-06-06 Outpatient FOG_Brown_B AOSM AOSM 544 4025-20 Traci 10:52:00 10:52:00 Trina [id number] [facility] 2021-06-06 2021-06-06 Outpatient FOG_Brown_B AOSM AOSM 544 4025-20 Traci 00:00:00 00:00:00 Trina [id number] [facility] 2021-05-15 2021-05-15 Telephone [facility] 1.2.840.114 [id number] Univers 00:00:00 00:00:00 Clover L HEALTH 350.1.13.10 it y of [place] 4.2.7.2.686 Ibll as CHRISTINA?BLEA [id number] [address] OFFICE [facility] 2021-05-12 2021-05-12 Orders Doctor YOLIS 1..840.114 [id number] Univers 00:00:00 00:00:00 Only Unassigned, T[place] 350.1.13.10 ity of [place] [facility] 4.2.7.2.686 Bill as [phone] [address] 2021-05-11 2021-05-11 Outpatient R MALLY [facility] [id number] Univers 10:45:00 10:45:00 DANIEL ity of [facility] 2021-05-11 2021-05-11 Telephone [facility] 1.2.840.114 [id number] Univers 00:00:00 00:00:00 Cognitive Match 350.1.13.10 it y of [place] 4.2.7.2.686 Bill as CHRISTINA?BLEA [phone] Hi dical [address] OFFICE [facility] 2021-05-08 2021-05-08 Telephone [facility] 1.2.840.114 [id number] Univers 00:00:00 00:00:00 Clover L HEALTH 350.1.13.10 it y of [place] 4.2.7.2.686 Bill as CHRISTINA?BLEA [phone] Hi berta SHAW 198 [facility] OFFICE [facility] 2021-05-07 2021-05-07 Telephone [facility] 1.2.840.114 [id number] Univers 00:00:00 00:00:00 Clover Mandujano HEALTH 350.1.13.10 it y of [place] 4.2.7.2.686 Bill as CHRISTINA?BLEA [phone] Hi berta SHAW [address] [place] [address] 2021-04-27 2021-04-27 Outpatient R [facility] [id number] Univers 09:00:00 09:00:00 CLOVER estefania [facility] 2021-04-27 2021-04-27 Outpatient R [facility] [id number] Univers 00:00:00 00:00:00 CLOVER estefania [facility] 2021-04-23 2021-04-23 [facility] [id number] Univers 13:30:00 13:30:00 [facility] 2021-04-20 2021-04-20 Outpatient R [facility] [id number] Univers 00:00:00 00:00:00 [place] [facility] 2021-04-20 2021-04-20 Telephone [facility] 1.2.840.114 [id number] Univers 00:00:00 00:00:00 Clover Mandujano [place] 350.1.13.10 it y of [place] 4.2.7.2.686 Bill as CHRISTINA?BLEA [id number] Hi berta SHAW [address] [place] [address] OFFICE [facility] 2021-04-17 2021-04-17 Telephone [facility] 1.2.840.114 [id number] Univers 00:00:00 00:00:00 Clover Mandujano HEALTH 350.1.13.10 it y of [place] 4.2.7.2.686 Bill as CHRISTINA?BLEA [phone] Hi berta SHAW 198 [facility] OFFICE [facility] 2021-04-17 2021-04-17 Telephone [facility] 1.2.840.114 [id number] Univers 00:00:00 00:00:00 Clover Mandujano HEALTH 350.1.13.10 it y of [place] 4.2.7.2.686 Bill as CHRISTINA?BLEA [phone] Me berta SHAW 198 [facility] OFFICE [facility] 2021-04-11 2021-04-11 Telephone [facility] 1.2.840.114 [id number] Univers 00:00:00 00:00:00 Clover Mandujano HEALTH 350.1.13.10 it y of [place] 4.2.7.2.686 Bill as CHRISTINA?BLEA [phone] Hi berta SHAW 198 [facility] OFFICE [facility] 2021-04-11 2021-04-11 Telephone [facility] 1.2.840.114 [id number] Univers 00:00:00 00:00:00 Clover Mandujano HEALTH 350.1.13.10 it y of [place] 4.2.7.2.686 Bill as CHRISTINA?BLEA [phone] Hi berta SHAW [address] [place] [address] 2021-04-06 2021-04-06 Outpatient R [facility] [id number] Univers 08:15:00 08:15:00 CLOVER odell [facility] 2021-04-06 2021-04-06 Telephone [facility] 1.2.800.801 [id number] Univers 00:00:00 00:00:00 Daniel De La Paz HEALTH 350.1.13.10 it y of [place] 4.2.7.2.686 Bill as CHRISTINA?BLEA [phone] Hi berta SHAW 198 [facility] OFFICE [facility] 2021-04-05 2021-04-05 Outpatient Issa BAL [facility] [id number] Univers 13:15:00 13:43:22 DANIEL odell [facility] 2021-04-05 2021-04-05 Office [facility] 1.2.840.114 [id number] Univers 13:15:00 13:30:00 Visit Daniel De La Paz HEALTH 350.1.13.10 it y of [place] 4.2.7.2.686 Bill as CHRISTINA?BLEA [phone] Hi berta SHAW 198 [facility] OFFICE [facility] 2021-04-05 2021-04-05 Outpatient Issa BAL [facility] [id number] Univers 13:15:00 13:15:00 DANIEL ity [facility] 2021-04-05 2021-04-05 Letter Doctor YOLIS 1.2.840.114 [id number] Univers 00:00:00 00:00:00 (Out) Unassigned, TIN 350.1.13.10 ity of [place] [facility] 4.2.7.2.686 Bill as [phone] [address] 2021-04-05 2021-04-05 Letter Doctor YOLIS 1.2.840.114 [id number] Univers 00:00:00 00:00:00 (Out) Unassigned, TIN 350.1.13.10 ity of [place] [facility] 4.2.7.2.686 Bill as [phone] [address] 2021-04-03 2021-04-03 Outpatient Issa BAL [facility] [id number] Univers 13:00:00 13:00:00 [facility] 2021-04-02 2021-04-02 Outpatient R [facility] [id number] Univers 10:30:00 10:30:00 SENDIL [facility] 2021-04-02 2021-04-02 Outpatient R [facility] [id number] Univers 10:30:00 10:30:00 [facility] 2021-03-29 2021-03-29 Outpatient R [facility] [id number] Univers 13:00:00 13:00:00 CLOVER [facility] 2021-03-29 2021-03-29 Refill [facility] 1.2.293.653 [id number] Univers 00:00:00 00:00:00 Clover Nazia HEALTH 350.1.13.10 it y [facility] 4.2.7.2.686 Bill as CHRISTINA?BLEA [phone] [address] MEDICAL OFFICE BUILDING 2021-03-29 2021-03-29 Telephone Kumar [facility] 1.2.840.114 [id number] Univers 00:00:00 00:00:00 Clover L HEALTH 350.1.13.10 it y of [place] 4.2.7.2.686 Bill as CHRISTINA?BLEA [phone] Me berta SHAW 198 [facility] 2021-03-28 2021-03-28 Orders Doctor YOLIS 1.2.840.114 [id number] Univers 00:00:00 00:00:00 Only Unassigned, TIN 350.1.13.10 ity of [place] [facility] 4.2.7.2.686 Bill as [phone] [address] 2021-03-23 2021-03-23 Outpatient R [facility] [id number] Univers 11:30:00 11:30:00 CLOVER odell [facility] 2021-03-20 2021-03-20 Orders Doctor YOLIS 1.2.840.114 [id number] Univers 00:00:00 00:00:00 Only Unassigned, TIN 350.1.13.10 ity of [place] [facility] 4.2.7.2.686 Bill as [id number] [address] 2021-03-16 2021-03-16 Telephone [facility] 1.2.840.114 [id number] Univers 00:00:00 00:00:00 Clover Mandujano HEALTH 350.1.13.10 it y of [place] 4.2.7.2.686 Bill as CHRISTINA?BLEA [phone] Me berta SHAW [address] [place] [address] 2021-03-15 2021-03-15 Outpatient R KUMAR [facility] [id number] Univers 13:00:00 13:00:00 CLOVER odell [facility] 2021-03-09 2021-03-09 Prep For [facility] 1.2.840.114 [id number] Univers 00:00:00 00:00:00 Surgery Clover Mandujano HEALTH 350.1.13.10 it y of [place] 4.2.7.2.686 Bill as CHRISTINA?BLEA [id number] Me berta SHAW 198 [facility] 2021-03-05 2021-03-05 Outpatient R [facility] [id number] Univers 14:15:00 14:42:32 CLOVER odell [facility] 2021-03-05 2021-03-05 Office [facility] 1.2.034.452 [id number] Univers 14:15:00 14:42:32 Visit Clover MENDOZA 350.1.13.10 it y of [place] 4.2.7.2.686 Bill as CHRISTINA?BLEA [phone] Me berta SHAW 198 [facility] OFFICE [facility] 2021-03-05 2021-03-05 Orders Doctor YOLIS 1.2.840.114 [id number] Univers 00:00:00 00:00:00 Only Unassigned, TIN 350.1.13.10 ity of [place] [facility] 4.2.7.2.686 Bill as [id number] [address] 2021-03-05 2021-03-05 Telephone [facility] 1.2.840.114 [id number] Univers 00:00:00 00:00:00 Clover MENDOZA 350.1.13.10 it y of [place] 4.2.7.2.686 Bill as CHRISTINA?BLEA [id number] Me berta SHAW [address] [place] [address] OFFICE [facility] 2021-02-12 2021-02-12 Outpatient R [facility] [id number] Univers 13:45:00 13:45:00 CLOVER odell [facility] 2021-02-01 2021-02-01 Telephone [facility] 1.2.840.114 [id number] Univers 00:00:00 00:00:00 Clover MENDOZA 350.1.13.10 it y of [place] 4.2.7.2.686 Bill as CHRISTINA?BLEA [phone] Me berta SHAW [address] [place] [address] OFFICE [facility] 2021-01-29 2021-01-29 Telephone [facility] 1.2.840.114 [id number] Univers 00:00:00 00:00:00 Clover MENDOZA 350.1.13.10 it y of [place] 4.2.7.2.686 Bill as CHRISTINA?BLEA [phone] Hi berta SHAW [address] [place] [address] OFFICE [facility] 2021-01-22 2021-01-22 Telephone [facility] 1.2.713.959 [id number] Univers 00:00:00 00:00:00 Sendil Demetri LU 350.1.13.10 ity [facility] 4.2.7.2.[place] [id number] Hi dicri NAL 059 [facility] 2021-01-19 2021-01-19 Outpatient R [facility] [id number] Univers 10:00:00 23:59:00 SENDIL ity [facility] 2021-01-19 2021-01-19 [facility] 1.2.840.114 [id number] Univers 09:54:13 23:59:00 Encounter Sendodilia LU 350.1.13.10 ity of [place] 4[place]2.7.2.[place] [id number] [facility] 843 [facility] 2021-01-19 2021-01-19 Outpatient R [facility] [id number] Univers 10:00:00 10:00:00 SENDIL ity [facility] 2021-01-19 2021-01-19 [facility] 1.2.146.829 [id number] Univers 00:00:00 00:00:00 Fernando LU 350.1.13.10 ity [facility] 4.2.7.2.[place] [phone] [address] 2021-01-16 2021-01-16 Outpatient R [facility] [id number] Univers 00:00:00 00:00:00 SENDIL ity [facility] 2021-01-16 2021-01-16 Outpatient R [facility] [id number] Univers 00:00:00 00:00:00 SENDIL ity [facility] 2020-12-07 2020-12-07 Telephone [facility] 1.2.908.638 [id number] Univers 00:00:00 00:00:00 Sendil Demetri Lu 350.1.13.10 ity of [place] 4.2.7.2.686 [place] [phone] Hi dicri nal [address] [place] [address] 2020-11-02 2020-11-02 Outpatient R BASSEM [facility] [id number] Univers 00:00:00 00:00:00 SENDIL ity [facility] 2020-10-03 2020-10-03 [facility] [id number] Univers 00:00:00 00:00:00 SENDIL ity [facility] 2020-09-21 2020-09-21 Outpatient R [facility] [id number] Univers 15:30:00 15:32:11 [facility] 2020-09-21 Office [facility] 1.2.840.114 [id number] Univers 14:55:58 15:32:11 Visit Sendodilia LU 350.1.13.10 ity [facility] 4.2.7.2.[place] [id number] [address] 2020-09-21 2020-09-21 Office [facility] 1.2.840.114 [id number] Univers 14:55:58 15:32:11 Visit Sendodilia LU 350.1.13.10 ity of [facility] 4.2.7.2.[place] [phone] Hi dical NAL [address] [place] [address] 2020-09-21 2020-09-21 Outpatient R BASSEM [facility] [id number] Univers 15:30:00 15:30:00 SENDIL ity [facility] 2020-07-27 2020-07-27 Outpatient [facility] [id number] Univers 08:04:33 23:59:00 CLOVER ity [facility] 2020-07-27 2020-07-27 [facility] 1.2.840.114 [id number] Univers 08:04:33 23:59:00 Encounter [facility] 350.1.13.10 ity of Surgical 4.2.7.2.686 Bill as Specialti [phone] Me dical es 809 [facility] 2020-07-27 2020-07-27 Office [facility] 1.2.840.114 [id number] Univers 07:51:51 09:06:38 Visit [facility] 350.1.13.10 it y of Surgical 4.2.7.2.686 Bill as Specialti [phone] Me dical es 198 [facility] 2020-07-27 2020-07-27 Outpatient R MALLY [facility] [id number] Univers 08:00:00 08:00:[facility] 2020-07-27 2020-07-27 Telephone [facility] 1.2.167.908 [id number] Univers 00:00:00 00:00:00 [facility] 350.1.13.10 it y of Surgical 4.2.7.2.686 Bill as Specialti [phone] Hi dical es 198 [facility] 2020-07-11 2020-07-11 Outpatient R MALLY [facility] [id number] Univers 14:00:00 14:00:00 [facility] 2020-03-29 2020-03-29 Orders Doctor YOLIS 1.2.840.114 [id number] 00:00:00 00:00:00 Only Unassigned, [place] 350.1.13.10 [place] [facility] 4.2.7.2.686 [id number] 009 2020-03-29 2020-03-29 Orders Doctor YOLIS 1.2.840.114 [id number] Univers 00:00:00 00:00:00 Only Unassigned, TIN 350.1.13.10 ity of [place] [facility] 4.2.7.2.686 Bill as [id number] [address] 2020-03-11 2020-03-11 Emergency [facility] 1.2.840.114 [id number] 18:06:00 18:59:00 Nidia Lu 350.1.13.10 [place] 4.2.7.2.686 [place] [id number] 084 2020-03-11 2020-03-11 Emergency Goldman, [facility] 1.2.840.114 [id number] [facility] 18:06:00 18:59:00 Nidia [place] 350.1.13.10 i ty of [place] 4.2.7.2.686 [facility] [phone] [address] 2020-01-17 2020-01-17 Emergency Goldman, [facility] 1.2.840.114 [id number] 16:55:00 19:20:00 Nidia [place] 350.1.13.10 [place] [address] [place] [address] [id number] [facility] 2020-01-17 2020-01-17 Emergency Goldman, [facility] 1.2.840.114 [id number] [facility] 16:55:00 19:20:00 Nidia [place] 350.1.13.10 i ty of [place] 4.2.7.2.686 [facility] [id number] [address] 2019-05-25 2019-05-25 Outpatient SIFF, [facility] [id number] [place] 00:00:00 00:00:00 301 Method i 2019-05-25 2019-05-25 Outpatient SIFF, [facility] [id number] [place] 00:00:00 00:00:[address] 2019-05-25 2019-05-25 Outpatient SIFF, [facility] [id number] [place] 00:00:00 00:00:00 567 Method i 2019-05-25 2019-05-25 Outpatient SIFF, [facility] 2100 [id number] [place] 00:00:00 00:00:[address] 2019-02-24 2019-02-24 Departed GETACHEW Morales [id number] 337 CHRIST 18:14:00 19:15:[address] 2019-02-24 2019-02-24 Departed GETACHEW Morales [id number] 337 [place] 18:14:00 19:15:[address] LIVE [facility]IS 2019-02-10 2019-02-10 Emergency Lenard SORIA [facility] ERT [id number] Univers 18:48:57 21:06:00 MARYLOU [facility] Results Test Description Test Time Test Comments Results Result Comments Source SEDIMENTATION RATE 2022-08-16 20:46:00 Test Item Value Reference Range Interpretation Comme nts ESR (test code = 70451-3) 13 See_Comment [ Automated message] The system which generated this result transmitted ref erence range: 0 - 20 mm/HR. The r eference range was not used to int erpret this result as normal/abnor mal. Lab Interpretation (test code = Normal 11468-7) [facility] (NA, K, CL, CO2, GLUCOSE, BUN, CREATININE, CA)2022-08-16 20:14:07 Test Item Value Reference Range Interpretation Comments NA (test code = 137 mmol/L 135-145 7861601693) K (test code = 4.4 mmol/L 3.5-5.0 8912598681) CL (test code = 106 mmol/L 98-108 9109131304) CO2 TOTAL (test code = 22 mmol/L 23-31 L 2143864055) AGAP (test code = 9 2-16 8174001553) BUN (test code = 15 mg/dL 7-23 0685142763) GLUCOSE (test code = 111 mg/dL 70-110 H 6664115016) CREATININE (test code = 1.01 mg/dL 0.50-1.04 0722328951) CALCIUM (test code = 9.4 mg/dL 8.6-10.6 1668170854) eGFR (test code = 55.7 mL/min/1.73m2 8836661765) SELAM (test code = SELAM) Association of [...] tests). Lab Interpretation Abnormal (test code = 06610-0) [facility] [id number] 20:14:07 Test Item Value Reference Range Interpretation Comments URIC ACID (test code = [id number]) 4.7 mg/dL 2.9-6.0 Lab Interpretation (test code = Normal 61616-0) [facility] WITH [id number] 19:56:20 Test Item Value Reference Range Interpretation Comments WBC (test code = 7.17 See_Comment [Automated 1812-2) message] The sy stem which generated this result transmitted reference range : 4.30 - 11.10 10*3/?L. The reference range was not used to interpret this result as normal/abnormal . RBC (test code = 4.23 See_Comment [Automated 069-8) message] The sy stem which generated this [...] RDW-SD (test code = 47.5 fL 39.0-49.9 30260-0) RDW-CV (test code = 14.0 % 12.0-15.5 788-0) PLT (test code = 312 See_Comment [Automated 777-3) message] The sy stem which generated this result transmitted reference range : 166 - 358 10*3/ ?L. The reference r robert was not used to interpret this result as normal/abnormal . MPV (test code = 9.5 fL 9.5-12.9 80294-5) NRBC/100 WBC (test 0.0 See_Comment [Automat ed code = [id number]) message] The system which generated this result transmitted reference range : 0.0 - 10.0 /100 WBCs. The refer ence range was not u sed to interpret th is result as normal/abnormal . NRBC x10^3 (test code See_Comment [Auto mated = [id number]) message] The s ystem which generated this result transmitted reference range : 10*3/?L. The reference range was not used to interpret this result as normal/abnormal . GRAN MAT (NEUT) % 55.5 % (test code = 770-8) IMM GRAN % (test code 0.60 % = [id number]) LYMPH % (test code = 25.0 % 736-9) MONO % (test code = 10.2 % 5905-5) EOS % (test code = 6.6 % 713-8) BASO % (test code = 2.1 % 706-2) GRAN MAT x10^3(ANC) 3.99 10*3/uL 1.88-7.09 (test code = [id number]) IMM GRAN x10^3 (test 0.04 10*3/uL 0.00-0.06 code = 1872713307) LYMPH x10^3 (test code 1.79 10*3/uL 1.32-3.29 = 731-0) MONO x10^3 (test code 0.73 10*3/uL 0.33-0.92 = 742-7) EOS x10^3 (test code = 0.47 10*3/uL 0.03-0.39 H 711-2) BASO x10^3 (test code 0.15 10*3/uL 0.01-0.07 H = 704-7) Lab Interpretation Abnormal (test code = 09673-9) [facility] WITH [id number] 15:45:24 Test Item Value Reference Range Interpretation [...] RDW-SD (test code = 48.2 fL 39.0-49.9 70723-3) RDW-CV (test code = 13.8 % 12.0-15.5 788-0) PLT (test code = 266 See_Comment [Automated 777-3) message] The sy stem which generated this result transmitted reference range : 166 - 358 10*3/ ?L. The reference r robert was not used to interpret this result as normal/abnormal . MPV (test code = 9.2 fL 9.5-12.9 L 98307-0) NRBC/100 WBC (test 0.0 See_Comment [Automat ed code = 5900774955) message] The system which generated this result transmitted reference range : 0.0 - 10.0 /100 WBCs. The refer ence range was not u sed to interpret th is result as normal/abnormal . NRBC x10^3 (test code See_Comment [Auto mated = [id number]) message] The s ystem which generated this result transmitted reference range : 10*3/?L. The reference range was not used to interpret this result as normal/abnormal . GRAN MAT (NEUT) % 71.4 % (test code = 770-8) IMM GRAN % (test code 1.10 % = 3780149606) LYMPH % (test code = 13.3 % 736-9) MONO % (test code = 11.8 % 5905-5) EOS % (test code = 1.7 % 713-8) BASO % (test code = 0.7 % 706-2) GRAN MAT x10^3(ANC) 7.53 10*3/uL 1.88-7.09 H (test code = 8973000461) IMM GRAN x10^3 (test 0.12 10*3/uL 0.00-0.06 H code = 0064811224) LYMPH x10^3 (test code 1.40 10*3/uL 1.32-3.29 = 731-0) MONO x10^3 (test code 1.24 10*3/uL 0.33-0.92 H = 742-7) EOS x10^3 (test code = 0.18 10*3/uL 0.03-0.39 711-2) BASO x10^3 (test code 0.07 10*3/uL 0.01-0.07 = 704-7) Lab Interpretation Abnormal (test code = 25167-2) [facility] WITH [id number] 15:45:24 Test Item Value Reference Range Interpretation Comments WBC (test code = 10.54 See_Comment [Automated 2486-2) message] The sy stem which generated this result transmitted reference range : 4.30 - 11.10 10*3/?L. The reference range was not used to interpret this result as normal/abnormal . RBC (test code = 3.76 See_Comment L [Automated 707-8) message] The sy stem which generated this [...] RDW-SD (test code = 48.2 fL 39.0-49.9 83098-5) RDW-CV (test code = 13.8 % 12.0-15.5 788-0) PLT (test code = 266 See_Comment [Automated 777-3) message] The sy stem which generated this result transmitted reference range : 166 - 358 10*3/ ?L. The reference r robert was not used to interpret this result as normal/abnormal . MPV (test code = 9.2 fL 9.5-12.9 L 80786-2) NRBC/100 WBC (test 0.0 See_Comment [Automat ed code = 5846612962) message] The system which generated this result transmitted reference range : 0.0 - 10.0 /100 WBCs. The refer ence range was not u sed to interpret th is result as normal/abnormal . NRBC x10^3 (test code See_Comment [Auto mated = [id number]) message] The s ystem which generated this result transmitted reference range : 10*3/?L. The reference range was not used to interpret this result as normal/abnormal . GRAN MAT (NEUT) % 71.4 % (test code = 770-8) IMM GRAN % (test code 1.10 % = 5256114319) LYMPH % (test code = 13.3 % 736-9) MONO % (test code = 11.8 % 5905-5) EOS % (test code = 1.7 % 713-8) BASO % (test code = 0.7 % 706-2) GRAN MAT x10^3(ANC) 7.53 10*3/uL 1.88-7.09 H (test code = 3324382622) IMM GRAN x10^3 (test 0.12 10*3/uL 0.00-0.06 H code = 2465663046) LYMPH x10^3 (test code 1.40 10*3/uL 1.32-3.29 = 731-0) MONO x10^3 (test code 1.24 10*3/uL 0.33-0.92 H = 742-7) EOS x10^3 (test code = 0.18 10*3/uL 0.03-0.39 711-2) BASO x10^3 (test code 0.07 10*3/uL 0.01-0.07 = 704-7) Lab Interpretation Abnormal (test code = 61167-4) [facility] [id number] 18:38:00 Test Item Value Reference Range Interpretation Comments Group A Streptococcus Screen (test Negative Negative code = 46989-3) [facility] Streptococcus pyogenes antigen [id number] 18:38:00 Test Item Value Reference Range Interpretation Comments Group A Streptococcus Screen (test Negative code = 80443-6)"
--- NOTE | 2022-10-19 10:06 | EDPHYS ---
Physician Documentation [facility] Name: Vicky Walker Age: 62 yrs Sex: Female : 1960 Arrival Date: 10/19/2022 Time: 09:43 Bed 12 Private MD: ED Physician Mahamed Moreno HPI: 10/19 17:37 This 62 yrs old Female presents to ER via Ambulatory with complaints of Ear Pain. snw 17:37 The patient presents with pain, severe. The complaints affect the left ear. Onset: The snw symptoms/episode began/occurred suddenly, 1 day(s) ago, and became worse and became persistent. The patient has experienced similar episodes in the past. The patient has been recently seen at the [facility] Emergency Department, this week, for similar complaints. Historical: - Allergies: 09:56 PENICILLINS; hb 09:56 Toradol; hb - PMHx: 09:56 Anxiety; Chronic pain; GERD; Hypertension; psoriasis; hb - PSHx: 09:56 Cholecystectomy; R knee replacement; hysterectomy; hb - Immunization history:: Adult Immunizations up to date. - Social history:: Smoking status: Patient denies any tobacco usage or history of. ROS: 17:37 Eyes: Negative for injury, pain, redness, and discharge. snw 17:37 Neck: Negative for injury, pain, and swelling, Cardiovascular: Negative for chest pain, palpitations, and edema, Respiratory: Negative for shortness of breath, cough, wheezing, and pleuritic chest pain, Abdomen/GI: Negative for abdominal pain, nausea, vomiting, diarrhea, and constipation, Back: Negative for injury and pain, : Negative for injury, bleeding, discharge, and swelling, MS/Extremity: Negative for injury and deformity, Skin: Negative for injury, rash, and discoloration, Neuro: Negative for headache, weakness, numbness, tingling, and seizure, Psych: Negative for depression, anxiety, suicide ideation, homicidal ideation, and hallucinations. 17:37 Constitutional: Positive for malaise. 17:37 ENT: Positive for ear pain. Exam: 16:53 Head/Face: Normocephalic, atraumatic. Eyes: Pupils equal round and reactive to light, snw extra-ocular motions intact. Lids and lashes normal. Conjunctiva and sclera are non-icteric and not injected. Cornea within normal limits. Periorbital areas with no swelling, redness, or edema. 16:53 Neck: Trachea midline, no thyromegaly or masses palpated, and no cervical lymphadenopathy. Supple, full range of motion without nuchal rigidity, or vertebral point tenderness. No Meningismus. Chest/axilla: Normal chest wall appearance and motion. Nontender with no deformity. No lesions are appreciated. Cardiovascular: Regular rate and rhythm with a normal S1 and S2. No gallops, murmurs, or rubs. Normal PMI, no JVD. No pulse deficits. Respiratory: Lungs have equal breath sounds bilaterally, clear to auscultation and percussion. No rales, rhonchi or wheezes noted. No increased work of breathing, no retractions or nasal flaring. Abdomen/GI: Soft, non-tender, with normal bowel sounds. No distension or tympany. No guarding or rebound. No evidence of tenderness throughout. Back: No spinal tenderness. No costovertebral tenderness. Full range of motion. Skin: Warm, dry with normal turgor. Normal color with no rashes, no lesions, and no evidence of cellulitis. MS/ Extremity: Pulses equal, no cyanosis. Neurovascular intact. Full, normal range of motion. Neuro: Awake and alert, GCS 15, oriented to person, place, time, and situation. Cranial nerves II-XII grossly intact. Motor strength 5/5 in all extremities. Sensory grossly intact. Cerebellar exam normal. Normal gait. 16:53 Constitutional: The patient appears alert, awake, anxious, restless. 16:53 ENT: Ear canal(s): erythema, that is minimal, that is moderate, of the left canal, TM's: erythema, that is mild, on the left, Nose: is normal, Mouth: is normal, Posterior pharynx: erythema, that is mild, Voice: is normal. 16:53 Psych: Behavior/mood is anxious, angry pain medication was not given more expediently . Vital Signs: 09:55 BP 141 / 96; Pulse 80; Resp 16; Temp 99.1(O); Pulse Ox 100% on R/A; Weight 81.65 kg; hb Height 5 ft. 2 in. ; Pain 8/10; 09:55 Body Mass Index 32.92 (81.65 kg, 157.48 cm) hb 09:55 Pain Scale: Adult hb MDM: 09:55 Patient medically screened. snw 16:54 Differential diagnosis: otitis media, otitis externa, barotrauma . Data reviewed: vital snw signs, nurses notes. I considered the following discharge prescriptions or medication management in the emergency department Medications were administered in the Emergency Department. See MAR. Counseling: I had a detailed discussion with the patient and/or guardian regarding the historical points, exam findings, and any diagnostic results supporting the discharge/admit diagnosis, the need for outpatient follow up, to return to the emergency department if symptoms worsen or persist or if there are any questions or concerns that arise at home. Special discussion: Based on the history and exam findings, there is no indication for further emergent testing or inpatient evaluation. I discussed with the patient/guardian the need to see the ENT specialist for further evaluation of the symptoms. I discussed with the patient/guardian the need to see the primary care provider for further evaluation of the symptoms. Administered Medications: 10:43 Drug: Dexamethasone IM 10 mg Route: IM; Site: right deltoid; hb 10:43 Drug: Clindamycin PO 300 mg Route: PO; hb 10:43 Drug: Maxitrol Ophthalmic Drops 2 drops Route: Ophthalmic; Site: right eye; hb 10:43 Drug: HYDROcodone-acetaminophen PO 5 mg-325 mg 1 tabs Route: PO; hb Disposition: 18:52 I reviewed the patient's care provided by the Advanced Practice Provider and agree with jr11 the diagnosis and treatment plan. Disposition Summary: 10/19/22 10:05 Discharge Ordered Location: Home snw Condition: Stable snw Diagnosis - Acute serous otitis media, recurrent, left ear snw - Unspecified otitis externa, left ear snw - Chronic pain, not elsewhere classified snw Followup: snw - With: Emergency Department - When: As needed - Reason: Worsening of condition Followup: snw - With: Private Physician - When: 1 - 2 days - Reason: Recheck today's complaints, Continuance of care, Re-evaluation by your physician Discharge Instructions: - Discharge Summary Sheet snw - Chronic Pain, Adult snw - Ear Drops, Adult snw - Otitis Media, Adult snw - Otitis Externa snw - Heat Therapy snw Forms: - Medication Reconciliation Form snw - Thank You Letter snw - Antibiotic Education snw - Prescription Opioid Use snw - Patient Portal Instructions snw - Leadership Thank You Letter snw Prescriptions: - Maxitrol 3.5mg/mL-10,000 unit/mL-0.1 % Ophthalmic drops, suspension - instill 2 drop by OTIC route every 8 hours for 7 days Left ear canal; 1 snw Unspecified; Refills: 0, Product Selection Permitted - Clindamycin HCl 300 mg Oral Capsule - take 1 capsule by ORAL route every 8 hours for 10 days; 30 capsule; Refills: 0, snw Product Selection Permitted - Mobic 7.5 mg Oral Tablet - take 1 tablet by ORAL route once daily take with food; 20 tablet; Refills: 0, snw Product Selection Permitted Signatures: Jennifer Cantu, ADIS-C HIDE TRIMMER-Csnw Dianne Hunt, RN RN Mahamed Moreno MD MD [email or web address]
--- NOTE | 2022-10-19 10:06 | ER ---
Nurse's Notes [facility] Name: Vicky Walker Age: 62 yrs Sex: Female : 1960 Arrival Date: 10/19/2022 Time: 09:43 Bed 12 Private MD: Diagnosis: Acute serous otitis media, recurrent, left ear;Unspecified otitis externa, left ear;Chronic pain, not elsewhere classified Presentation: 10/19 09:55 Chief complaint: Left ear pain upon waking today. Coronavirus screen: At this time, the hb client does not indicate any symptoms associated with coronavirus-19. Ebola Screen: No symptoms or risks identified at this time. Initial Sepsis Screen: Does the patient meet any 2 criteria? No. Patient's initial sepsis screen is negative. Does the patient have a suspected source of infection? No. Patient's initial sepsis screen is negative. Risk Assessment: Do you want to hurt yourself or someone else? Patient reports no desire to harm self or others. Onset of symptoms was October 19, 2022. 09:55 Method Of Arrival: Ambulatory hb 09:55 Acuity: PIYUSH 4 hb Historical: - Allergies: 09:56 PENICILLINS; hb 09:56 Toradol; hb - PMHx: 09:56 Anxiety; Chronic pain; GERD; Hypertension; psoriasis; hb - PSHx: 09:56 Cholecystectomy; R knee replacement; hysterectomy; hb - Immunization history:: Adult Immunizations up to date. - Social history:: Smoking status: Patient denies any tobacco usage or history of. Vital Signs: 09:55 BP 141 / 96; Pulse 80; Resp 16; Temp 99.1(O); Pulse Ox 100% on R/A; Weight 81.65 kg; hb Height 5 ft. 2 in. ; Pain 8/10; 09:55 Body Mass Index 32.92 (81.65 kg, 157.48 cm) hb 09:55 Pain Scale: Adult hb ED Course: 09:44 Patient arrived in ED. ts1 09:53 Jennifer Cantu FNP-C is PHCP. snw 09:53 Mahamed Moreno MD is Attending Physician. snw 09:56 Triage completed. hb 09:56 Arm band placed on. hb 10:48 Dianne Hunt, TANISHA is Primary Nurse. hb Administered Medications: 10:43 Drug: Dexamethasone IM 10 mg Route: IM; Site: right deltoid; hb 10:43 Drug: Clindamycin PO 300 mg Route: PO; hb 10:43 Drug: Maxitrol Ophthalmic Drops 2 drops Route: Ophthalmic; Site: right eye; hb 10:43 Drug: HYDROcodone-acetaminophen PO 5 mg-325 mg 1 tabs Route: PO; hb Outcome: 10:05 Discharge ordered by . esme 10:44 Discharged to home ambulatory. hb 10:44 Condition: stable 10:44 Discharge instructions given to patient, Instructed on discharge instructions, follow up and referral plans. medication usage, Demonstrated understanding of instructions, follow-up care, medications, Prescriptions given X 3. 10:48 Patient left the ED. Signatures: Jennifer Cantu, LICENSING REGISTRATION EXAMINER-C LICENSING REGISTRATION EXAMINER-Csnw Dianne Hunt, TANISHA RN Wanda Gil, CULLEN PAS ts1
[2022-10-19] MEDS ORDERED: HYDROCODONE/APAP 5/325 MG TAB ONE (10:43)
[2022-10-19] MEDS ORDERED: dexAMETHasone 10 MG/ML VIAL ONE (10:43)
[2022-10-19] MEDS ORDERED: NEO/POLY/DEX OPTH 5 ML BOT ONE (10:43)
[2022-10-19 10:53] VITALS: BP 141/96; TEMP 99.1; O2SAT 100
== END 2022-10-19 10:48 | disposition home or self-care (01) ==
LOC: ER 09:43
DX: H65.05 Acute serous otitis media, recurrent, left ear (principal); G89.29 Other chronic pain; F41.9 Anxiety disorder, unspecified; K21.9 Gastro-esophageal reflux disease without esophagitis; I10 Essential (primary) hypertension; Z88.0 Allergy status to penicillin
CPT/HCPCS: 96372; 99284; J1100

== ENCOUNTER 2023-02-10 07:51 | Emergency (ER) | payer OTHER ==
--- OUTSIDE RECORDS SUMMARY | 2023-02-10 08:04 | XMS REPORT | Continuity of Care Document ---
Author Name Unknown Address [address] [facility] [address] [place] [address] [facility] thconnect Address [address] [facility] [address] [place] [address] Care Team Providers Care Ship Manager Name Role Phone ADAM ANTUNEZ Primary Care Physician CLOVER HEATH Attending Clinician UnavailClover Lr MD Attending Clinician [phone] [facility] Attending Clinician UnavailItalia Gabriel MD Attending Clinician [phone] ITALIA RANDALL Attending Clinician Unavailable Unknown, Attending Attending Clinician Unavailab DANIEL Tavares Attending Clinician Unavailable Daniel Garner Attending Clinician [phone] JUAN RODAS Attending Clinician Unavailable Juan Rodas MD Attending Clinician [phone] MERLIN HIDALGO Attending Clinician Unavailable Merlin Araiza Attending Clinician [phone] Lab, Ang - Db Attending Clinician Unavailable MARYLOU SORIA Attending Clinician Unavailable Marylou Guzman Attending Clinician [phone] Doctor Unassigned, [place] Attending Clinician U navailable Only, Adc Test Attending Clinician Unavailable Pob, Adc Lab Main Attending Clinician UnavailFERNANDO Howard Attending Clinician Unavailable TRUE LEIGH Attending Clinician Unavailable Rd Attending Clinician Unavail able Nimyulisa CRM ANALYST, True Mandujano Attending Clinician [phone] BASSEM, SENDIL K.H. Attending Clinician Unavaila terri Luevano MD, Shakila K.H. Attending Clinician [phone] Fernando Lopez MD Attending Clinician [phone] Nidia Vaughn Attending Clinician [phone] CARLOS MAYO Attending Clinician Unavailable CL[facility] HEATH Admitting Clinician UnavailJUAN Velázquez Admitting Clinician Unavailable MERLIN HIDALGO Admitting Clinician Unavailable CL[facility] HEATH Admitting Clinician UnavailClover Lr MD Admitting Clinician [phone] Rd Admitting Clinician Unavail able MARYLOU SORIA Admitting Clinician Unavailable BASSEM, SENDIL K.H. Admitting Clinician Unavailnichole murray Payers Payer Name Policy Type Policy Number Effective Date Expirati on Date Source [facility] DUAL COMP HMO D SNP [id number] 2022 00:00:00 [facility] STAR PLUS [id number] 2022 00:00:00 [employer] [place] [employer] CLASSIC/VALUE [id number] 2020 00:00:00 MEDICARE PART A \\T\\ B [id number] 2011 00:00:00 MEDICAID [facility] [id number] 2010 00:00:00 [employer] (MEDICARE REPLACEMENT/ADVANTA GE - PPO) [id number] [facility] (MEDICAID HMO) [id number] 2016 00:00:00 [employer] CHOICE [id number] 2021 00:00:00 [employer] (MEDICARE REPLACEMENT/ADVANTA GE - PPO) [id number] 2021 00:00:00 Problems Condition Name Condition Details Condition Category Status Onset Date Resolution Date Last Treatment Date Treating Clinician Comments Source Primary osteoarthr itis of right knee Primary osteoarthr itis of right knee Disease Active 03-12 00:00: 00 Overview: Formattin g of this note might be different from the original. Added automatic ally from request for surgery [id number] [facility] Fracture, Colles, left, closed Fracture, Colles, left, closed Disease Active 04-26 00:00: [address] [facility] Obesity (BMI 30-39.9) Obesity (BMI 30-39.9) Disease Active 07-05 00:00: 00 [facility] Chest pain Chest pain Disease Active 07-04 00:00: 00 [facility] Right foot pain Right foot pain Disease Active 2015-03 00:00: 00 [facility] Left against medical advice Problem Active [facility] Health Otitic barotrauma Problem Inactiv e [facility] Rhinitis Problem Inactiv e [facility] Allergies, Adverse Reactions, Alerts Allergy Name Allergy Type Status Severity Reaction(s) Onset Date Inactive Date Treating Clinician Comments Source Penicill in Allergy to substanc e Active Unknown 2018-03 00:00: 00 [facility] Health Penicill ins Propensi ty to adverse reaction s Active Unknown - See comments 10-30 00:00: 00 As a child/ ? rxn [facility] Penicill ins Propensi ty to adverse reaction s Active Unknown - See comments 10-30 00:00: 00 As a child/ ? rxn [facility] Penicill ins Propensi ty to adverse reaction s Active Unknown - See comments 10-30 00:00: 00 As a child/ ? rxn [facility] PENICILL INS Drug Class Active Unknown-Cmnt 10-30 00:00: 00 [facility] Penicill ins Propensi ty to adverse reaction s to drug Active Rash 10-30 00:00: [address] [facility] PENICI LLIN AND DERIVATI VES* Allergy to substanc e Active Unknown 07-24 00:00: 00 [facility] Social History Social Habit Start Date Stop Date Quantity Comments Source [facility] History of tobacco use Cigarette Smoker [facility] Exposure to SARS-CoV-2 (event) 2022-07-05 00:00:00 2022-07-15 13:54:00 Not sure [facility] History of Social function 2022-07-01 00:00:00 2022-07-01 00:00:00 [facility] Tobacco use and exposure 2022-04-10 00:00:00 2022-04-10 00:00:00 Smokeless tobacco non-user [facility] Cigarettes smoked current (pack per day) - Reported 2019-05-25 00:00:00 2019-05-25 00:00:00 [facility] Cigarette pack-years 2019-05-25 00:00:00 2019-05-25 00:00:00 [facility] Alcohol intake 2019-05-25 00:00:00 2019-05-25 00:00:00 0 /d [facility] Sex Ass[birth year] At 1960 00:00:00 1960 00:00:00 [facility] Smoking Status Start Date Stop Date Source Smokes tobacco daily 2022-04-10 00:00:00 [facility] Current Light tobacco smoker 2019-02-24 18:35:00 [facility] Medications Ordered Medication Name Filled Medication Name Start Date Stop Date Current Medication? Ordering Clinician Indication Dosage Frequency Signature (SIG) Comments Components Source triamcinolo ne acetonide (KENALOG) injection 80 mg 2022-03 15:00: 00 01-30 14:15 :00 No [id number] 80mg [facility] triamcinolo ne acetonide (KENALOG) injection 80 mg 2022-03 15:00: 00 01-30 14:15 :00 No [id number] 80mg 80 mg, Intramuscu lar, ONCE, 1 dose, On Fri01/30/23 at 0900, Routine [facility] triamcinolo ne acetonide (KENALOG) injection 80 mg 2022-03 15:00: 00 01-30 14:15 :00 No [id number] 80mg [facility] triamcinolo ne acetonide (KENALOG) injection 80 mg 2022-03 15:00: 00 01-30 14:15 :00 No [id number] 80mg 80 mg, Intramuscu lar, ONCE, 1 dose, On Fri01/30/23 at 0900, Routine [facility] ketorolac (TORADOL) injection 30 mg 2022-03 22:15: 00 01-24 21:19 :00 No [id number] 30mg [facility] ketorolac (TORADOL) injection 30 mg 2022-03 22:15: 00 01-24 21:19 :00 No [id number] 30mg 30 mg, Intramuscu lar, ONCE, 1 dose, On Fri01/24/23 at 1615, Routine [facility] ketorolac (TORADOL) injection 30 mg 2022-03 22:15: 00 01-24 21:19 :00 No [id number] 30mg [facility] ketorolac (TORADOL) injection 30 mg 2022-03 22:15: 00 01-24 21:19 :00 No [id number] 30mg 30 mg, Intramuscu lar, ONCE, 1 dose, On Fri01/24/23 at 1615, Routine [facility] methylPREDN ISolone (MEDROL, FIDEL,) 4 mg tablets 2022-03 00:00: 00 Yes [id number] Take by mouth SEE-INSTRU CTIONS. follow package directions [facility] methylPREDN ISolone (MEDROL, FIDEL,) 4 mg tablets 2022-03 00:00: 00 Yes [id number] Take by mouth SEE-INSTRU CTIONS. follow package directions [facility] methylPREDN ISolone (MEDROL, FIDEL,) 4 mg tablets 2022-03 00:00: 00 Yes [id number] Take by mouth SEE-INSTRU CTIONS. follow package directions [facility] methylPREDN ISolone (MEDROL, FIDEL,) 4 mg tablets 2022-03 00:00: 00 Yes [id number] Take by mouth SEE-INSTRU CTIONS. follow package directions [facility] methylPREDN ISolone (MEDROL, FIDEL,) 4 mg tablets 2022-03 00:00: 00 Yes [id number] Take by mouth SEE-INSTRU CTIONS. follow package directions [facility] methylPREDN ISolone (MEDROL, FIDEL,) 4 mg tablets 2022-03 00:00: 00 Yes [id number] Take by mouth SEE-INSTRU CTIONS. follow package directions [facility] acetaminoph en-codeine 300-30 mg tablet 2022-03 00:00: 00 02-01 05:59 :00 Yes [id number] 1{tbl} Take 1 tablet by mouth every 4 (four) hours as needed for Pain (scale 1-3), Pain (scale 4-6) or Pain (scale 7-10) for up to 7 days. Indication s: acute pain [facility] acetaminoph en-codeine 300-30 mg tablet 2022-03 00:00: 00 02-01 05:59 :00 Yes [id number] 1{tbl} Take 1 tablet by mouth every 4 (four) hours as needed for Pain (scale 1-3), Pain (scale 4-6) or Pain (scale 7-10) for up to 7 days. Indication s: acute pain [facility] acetaminoph en-codeine 300-30 mg tablet 2022-03 00:00: 00 02-01 05:59 :00 Yes [id number] 1{tbl} Take 1 tablet by mouth every 4 (four) hours as needed for Pain (scale 1-3), Pain (scale 4-6) or Pain (scale 7-10) for up to 7 days. Indication s: acute pain [facility] acetaminoph en-codeine 300-30 mg tablet 2022-03 00:00: 00 02-01 05:59 :00 Yes [id number] 1{tbl} Take 1 tablet by mouth every 4 (four) hours as needed for Pain (scale 1-3), Pain (scale 4-6) or Pain (scale 7-10) for up to 7 days. Indication s: acute pain [facility] acetaminoph en-codeine 300-30 mg tablet 2022-03 00:00: 00 02-01 05:59 :00 Yes [id number] 1{tbl} Take 1 tablet by mouth every 4 (four) hours as needed for Pain (scale 1-3), Pain (scale 4-6) or Pain (scale 7-10) for up to 7 days. Indication s[facility] 300-30 mg tablet 2022-03 00:00: 00 02-01 05:59 :00 Yes [id number] 1{tbl} Take 1 tablet by mouth every 4 (four) hours as needed for Pain (scale 1-3), Pain (scale 4-6) or Pain (scale 7-10) for up to 7 days. Indication s: acute pain [facility] pentazocine -naloxone 50-0.5 mg tablet 2022-09-10 00:00: 00 Yes [id number] 1{tbl} Take 1 tablet by mouth every 4 (four) hours as needed for Pain. Indication s: acute pain [facility] pentazocine -naloxone 50-0.5 mg tablet 2022-0 09-10 00:00: 00 Yes [id number] 1{tbl} Take 1 tablet by mouth every 4 (four) hours as needed for Pain. Indication s: acute pain [facility] pentazocine -naloxone 50-0.5 mg tablet 2022-0 09-10 00:00: 00 Yes [id number] 1{tbl} Take 1 tablet by mouth every 4 (four) hours as needed for Pain. Indication s: acute pain [facility] pentazocine -naloxone 50-0.5 mg tablet 2022-0 09-10 00:00: 00 Yes [id number] 1{tbl} Take 1 tablet by mouth every 4 (four) hours as needed for Pain. Indication s: acute pain [facility] pentazocine -naloxone 50-0.5 mg tablet 09-10 00:00: 00 Yes [id number] 1{tbl} Take 1 tablet by mouth every 4 (four) hours as needed for Pain. Indication s: acute pain [facility] pentazocine -naloxone 50-0.5 mg tablet 09-10 00:00: 00 Yes [id number] 1{tbl} Take 1 tablet by mouth every 4 (four) hours as needed for Pain. Indication s: acute pain [facility] pentazocine -naloxone 50-0.5 mg tablet 09-10 00:00: 00 Yes [id number] 1{tbl} Take 1 tablet by mouth every 4 (four) hours as needed for Pain. Indication s: acute pain [facility] pentazocine -naloxone 50-0.5 mg tablet 09-10 00:00: 00 Yes [id number] 1{tbl} Take 1 tablet by mouth every 4 (four) hours as needed for Pain. Indication s: acute pain [facility] pentazocine -naloxone 50-0.5 mg tablet 09-10 00:00: 00 Yes [id number] 1{tbl} Take 1 tablet by mouth every 4 (four) hours as needed for Pain. Indication s: acute pain [facility] HYDROcodone -acetaminop hen (NORCO 5) 5-325 mg tablet 2 tablet 08-16 21:00: 00 08-16 21:10 :00 No 2{tbl} 2 tablet, Oral, ONCE, 1 dose, On Fri08/16/22 at 1600, LESLY [facility] ketorolac (TORADOL) injection 30 mg 08-16 19:45: 00 08-16 19:32 :00 No 30mg 30 mg, Slow IV Push, ONCE NOW, 1 dose, On Fri08/16/22 at 1445, LESLY [facility] dexamethaso ne sod phos PF injection 10 mg 08-16 19:00: 00 08-16 19:32 :00 No 10mg 10 mg, Slow IV Push, ONCE, 1 dose, On Fri08/16/22 at 1400, 1 mL [facility] diclofenac 75 mg EC tablet 2022-0 16 00:00: 00 Yes [id number] 75mg Take 1 tablet by mouth in the morning and 1 tablet in the evening. Take with meals. [facility] acetaminoph en (TYLENOL ARTHRITIS PAIN) 650 mg CR tablet 2022-0 16 00:00: 00 Yes [id number] 650mg Take 1 tablet by mouth every 8 (eight) hours as needed for Pain. [facility] predniSONE 20 mg tablet 2022-0 16 00:00: 00 Yes [id number] Take 2 tablets PO daily [facility] gabapentin (NEURONTIN) 100 mg capsule 2022-0 08-16 00:00: 00 Yes [id number] 100mg Take 1 capsule by mouth in the morning and 1 capsule at noon and 1 capsule in the evening. [facility] diclofenac 75 mg EC tablet 2022-0 08-16 00:00: 00 Yes [id number] 75mg Take 1 tablet by mouth in the morning and 1 tablet in the evening. Take with meals. [facility] acetaminoph en (TYLENOL ARTHRITIS PAIN) 650 mg CR tablet 2022-0 08-16 00:00: 00 Yes [id number] 650mg Take 1 tablet by mouth every 8 (eight) hours as needed for Pain. [facility] predniSONE 20 mg tablet 2022-0 16 00:00: 00 Yes [id number] Take 2 tablets PO daily [facility] gabapentin (NEURONTIN) 100 mg capsule 2022-0 16 00:00: 00 Yes [id number] 100mg Take 1 capsule by mouth in the morning and 1 capsule at noon and 1 capsule in the evening. [facility] diclofenac 75 mg EC tablet 2022-0 16 00:00: 00 Yes [id number] 75mg Take 1 tablet by mouth in the morning and 1 tablet in the evening. Take with meals. [facility] acetaminoph en (TYLENOL ARTHRITIS PAIN) 650 mg CR tablet 2022-0 16 00:00: 00 Yes [id number] 650mg Take 1 tablet by mouth every 8 (eight) hours as needed for Pain. [facility] predniSONE 20 mg tablet 0 08-16 00:00: 00 Yes [id number] Take 2 tablets PO daily [facility] gabapentin (NEURONTIN) 100 mg capsule 08-16 00:00: 00 Yes [id number] 100mg Take 1 capsule by mouth in the morning and 1 capsule at noon and 1 capsule in the evening. [facility] diclofenac 75 mg EC tablet 08-16 00:00: 00 Yes [id number] 75mg Take 1 tablet by mouth in the morning and 1 tablet in the evening. Take with meals. [facility] acetaminoph en (TYLENOL ARTHRITIS PAIN) 650 mg CR tablet 08-16 00:00: 00 Yes [id number] 650mg Take 1 tablet by mouth every 8 (eight) hours as needed for Pain. [facility] predniSONE 20 mg tablet 08-16 00:00: 00 Yes [id number] Take 2 tablets PO daily [facility] gabapentin (NEURONTIN) 100 mg capsule 08-16 00:00: 00 Yes [id number] 100mg Take 1 capsule by mouth in the morning and 1 capsule at noon and 1 capsule in the evening. [facility] diclofenac 75 mg EC tablet 08-16 00:00: 00 Yes [id number] 75mg Take 1 tablet by mouth in the morning and 1 tablet in the evening. Take with meals. [facility] acetaminoph en (TYLENOL ARTHRITIS PAIN) 650 mg CR tablet 0 08-16 00:00: 00 Yes [id number] 650mg Take 1 tablet by mouth every 8 (eight) hours as needed for Pain. [facility] predniSONE 20 mg tablet 0 08-16 00:00: 00 Yes [id number] Take 2 tablets PO daily [facility] gabapentin (NEURONTIN) 100 mg capsule 0 08-16 00:00: 00 Yes [id number] 100mg Take 1 capsule by mouth in the morning and 1 capsule at noon and 1 capsule in the evening. [facility] diclofenac 75 mg EC tablet 2022-0 08-16 00:00: 00 Yes [id number] 75mg Take 1 tablet by mouth in the morning and 1 tablet in the evening. Take with meals. [facility] acetaminoph en (TYLENOL ARTHRITIS PAIN) 650 mg CR tablet 08-16 00:00: 00 Yes [id number] 650mg Take 1 tablet by mouth every 8 (eight) hours as needed for Pain. [facility] predniSONE 20 mg tablet 08-16 00:00: 00 Yes [id number] Take 2 tablets PO daily [facility] gabapentin (NEURONTIN) 100 mg capsule 08-16 00:00: 00 Yes [id number] 100mg Take 1 capsule by mouth in the morning and 1 capsule at noon and 1 capsule in the evening. [facility] diclofenac 75 mg EC tablet 08-16 00:00: 00 Yes [id number] 75mg Take 1 tablet by mouth in the morning and 1 tablet in the evening. Take with meals. [facility] acetaminoph en (TYLENOL ARTHRITIS PAIN) 650 mg CR tablet 08-16 00:00: 00 Yes [id number] 650mg Take 1 tablet by mouth every 8 (eight) hours as needed for Pain. [facility] predniSONE 20 mg tablet 0 08-16 00:00: 00 Yes [id number] Take 2 tablets PO daily [facility] gabapentin (NEURONTIN) 100 mg capsule 08-16 00:00: 00 Yes [id number] 100mg Take 1 capsule by mouth in the morning and 1 capsule at noon and 1 capsule in the evening. [facility] diclofenac 75 mg EC tablet 08-16 00:00: 00 Yes [id number] 75mg Take 1 tablet by mouth in the morning and 1 tablet in the evening. Take with meals. [facility] acetaminoph en (TYLENOL ARTHRITIS PAIN) 650 mg CR tablet 0 08-16 00:00: 00 Yes [id number] 650mg Take 1 tablet by mouth every 8 (eight) hours as needed for Pain. [facility] predniSONE 20 mg tablet 2022-08-16 00:00: 00 Yes [id number] Take 2 tablets PO daily [facility] gabapentin (NEURONTIN) 100 mg capsule 08-16 00:00: 00 Yes [id number] 100mg Take 1 capsule by mouth in the morning and 1 capsule at noon and 1 capsule in the evening. [facility] diclofenac 75 mg EC tablet 08-16 00:00: 00 Yes [id number] 75mg Take 1 tablet by mouth in the morning and 1 tablet in the evening. Take with meals. [facility] acetaminoph en (TYLENOL ARTHRITIS PAIN) 650 mg CR tablet 08-16 00:00: 00 Yes [id number] 650mg Take 1 tablet by mouth every 8 (eight) hours as needed for Pain. [facility] predniSONE 20 mg tablet 08-16 00:00: 00 Yes [id number] Take 2 tablets PO daily [facility] gabapentin (NEURONTIN) 100 mg capsule 08-16 00:00: 00 Yes [id number] 100mg Take 1 capsule by mouth in the morning and 1 capsule at noon and 1 capsule in the evening. [facility] diclofenac 75 mg EC tablet 08-16 00:00: 00 Yes [id number] 75mg Take 1 tablet by mouth in the morning and 1 tablet in the evening. Take with meals. [facility] acetaminoph en (TYLENOL ARTHRITIS PAIN) 650 mg CR tablet 08-16 00:00: 00 Yes [id number] 650mg Take 1 tablet by mouth every 8 (eight) hours as needed for Pain. [facility] predniSONE 20 mg tablet 08-16 00:00: 00 Yes [id number] Take 2 tablets PO daily [facility] gabapentin (NEURONTIN) 100 mg capsule 08-16 00:00: 00 Yes [id number] 100mg Take 1 capsule by mouth in the morning and 1 capsule at noon and 1 capsule in the evening. [facility] FENTanyl PF (SUBLIMAZE (PF)) injection 25 mcg 08-06 23:15: 00 08-06 23:09 :00 No 25ug 25 mcg, Intramuscu lar, ONCE, 1 dose, On Fri08/06/22 at 1815, STAT [facility] clindamycin 300 mg capsule 2022-0 08-06 00:00: 00 08-17 04:59 :00 No [id number] 300mg Take 1 capsule by mouth in the morning and 1 capsule at noon and 1 capsule in the evening. Do all this for 10 days. [facility] sulfamethox azole-trime thoprim 800-160 mg per tablet 0 08-06 00:00: 00 08-17 04:59 :00 No [id number] 1{tbl} Take 1 tablet by mouth every 12 (twelve) hours for 10 days. [facility] clindamycin 300 mg capsule 2022-0 08-06 00:00: 00 08-17 04:59 :00 No [id number] 300mg Take 1 capsule by mouth in the morning and 1 capsule at noon and 1 capsule in the evening. Do all this for 10 days. [facility] sulfamethox azole-trime thoprim 800-160 mg per tablet 2022-0 08-06 00:00: 00 08-17 04:59 :00 No [id number] 1{tbl} Take 1 tablet by mouth every 12 (twelve) hours for 10 days. [facility] clindamycin 300 mg capsule 2022-0 08-06 00:00: 00 08-17 04:59 :00 No [id number] 300mg Take 1 capsule by mouth in the morning and 1 capsule at noon and 1 capsule in the evening. Do all this for 10 days. [facility] sulfamethox azole-trime thoprim 800-160 mg per tablet 0 08-06 00:00: 00 08-17 04:59 :00 No [id number] 1{tbl} Take 1 tablet by mouth every 12 (twelve) hours for 10 days. [facility] clindamycin 300 mg capsule 2022-0 606 00:00: 00 08-17 04:59 :00 No [id number] 300mg Take 1 capsule by mouth in the morning and 1 capsule at noon and 1 capsule in the evening. Do all this for 10 days. [facility] sulfamethox azole-trime thoprim 800-160 mg per tablet 08-06 00:00: 00 08-17 04:59 :00 No [id number] 1{tbl} Take 1 tablet by mouth every 12 (twelve) hours for 10 days. [facility] clindamycin 300 mg capsule 08-06 00:00: 00 08-17 04:59 :00 No [id number] 300mg Take 1 capsule by mouth in the morning and 1 capsule at noon and 1 capsule in the evening. Do all this for 10 days. [facility] sulfamethox azole-trime thoprim 800-160 mg per tablet 08-06 00:00: 00 08-17 04:59 :00 No [id number] 1{tbl} Take 1 tablet by mouth every 12 (twelve) hours for 10 days. [facility] clindamycin 300 mg capsule 08-06 00:00: 00 08-17 04:59 :00 No [id number] 300mg Take 1 capsule by mouth in the morning and 1 capsule at noon and 1 capsule in the evening. Do all this for 10 days. [facility] sulfamethox azole-trime thoprim 800-160 mg per tablet 08-06 00:00: 00 08-17 04:59 :00 No [id number] 1{tbl} Take 1 tablet by mouth every 12 (twelve) hours for 10 days. [facility] pentazocine -naloxone 50-0.5 mg tablet 5-26 00:00: 00 08-03 04:59 :00 No [id number] 1{tbl} Take 1 tablet by mouth every 6 (six) hours as needed for Pain for up to 7 days. Indication s: acute pain [facility] traMADoL 50 mg tablet 5-25 00:00: 00 Yes [id number] 50mg Take 1 tablet by mouth every 4 (four) hours as needed for Pain (scale 7-10). Indication s: acute pain [facility] traMADoL 50 mg tablet 25 00:00: 00 Yes [id number] 50mg Take 1 tablet by mouth every 4 (four) hours as needed for Pain (scale 7-10). Indication s: acute pain [facility] traMADoL 50 mg tablet 2022-0 -25 00:00: 00 Yes [id number] 50mg Take 1 tablet by mouth every 4 (four) hours as needed for Pain (scale 7-10). Indication s: acute pain [facility] traMADoL 50 mg tablet 2022-0 5-25 00:00: 00 Yes [id number] 50mg Take 1 tablet by mouth every 4 (four) hours as needed for Pain (scale 7-10). Indication s: acute pain [facility] traMADoL 50 mg tablet 2022-0 5-25 00:00: 00 Yes [id number] 50mg Take 1 tablet by mouth every 4 (four) hours as needed for Pain (scale 7-10). Indication s: acute pain [facility] traMADoL 50 mg tablet 2022-0 25 00:00: 00 Yes [id number] 50mg Take 1 tablet by mouth every 4 (four) hours as needed for Pain (scale 7-10). Indication s: acute pain [facility] traMADoL 50 mg tablet 2022-0 25 00:00: 00 Yes [id number] 50mg Take 1 tablet by mouth every 4 (four) hours as needed for Pain (scale 7-10). Indication s: acute pain [facility] traMADoL 50 mg tablet 2022-0 -25 00:00: 00 Yes 4647 50mg Take 1 tablet by mouth every 4 (four) hours as needed for Pain (scale 7-10). Indication s: acute pain [facility] traMADoL 50 mg tablet 2022-0 -25 00:00: 00 Yes 4647 50mg Take 1 tablet by mouth every 4 (four) hours as needed for Pain (scale 7-10). Indication s: acute pain [facility] traMADoL 50 mg tablet 2022-0 5-25 00:00: 00 Yes 4647 50mg Take 1 tablet by mouth every 4 (four) hours as needed for Pain (scale 7-10). Indication s: acute pain [facility] traMADoL 50 mg tablet 0 -25 00:00: 00 Yes 4647 50mg Take 1 tablet by mouth every 4 (four) hours as needed for Pain (scale 7-10). Indication s: acute pain [facility] traMADoL 50 mg tablet 0 5-25 00:00: 00 Yes 4647 50mg Take 1 tablet by mouth every 4 (four) hours as needed for Pain (scale 7-10). Indication s: acute pain [facility] traMADoL 50 mg tablet 0 5-25 00:00: 00 Yes 4647 50mg Take 1 tablet by mouth every 4 (four) hours as needed for Pain (scale 7-10). Indication s: acute pain [facility] traMADoL 50 mg tablet 0 -25 00:00: 00 Yes 4647 50mg Take 1 tablet by mouth every 4 (four) hours as needed for Pain (scale 7-10). Indication s: acute pain [facility] traMADoL 50 mg tablet 0 25 00:00: 00 Yes 4647 50mg Take 1 tablet by mouth every 4 (four) hours as needed for Pain (scale 7-10). Indication s: acute pain [facility] traMADoL 50 mg tablet 0 25 00:00: 00 Yes 4647 50mg Take 1 tablet by mouth every 4 (four) hours as needed for Pain (scale 7-10). Indication s: acute pain [facility] traMADoL 50 mg tablet 0 25 00:00: 00 Yes 4647 50mg Take 1 tablet by mouth every 4 (four) hours as needed for Pain (scale 7-10). Indication s: acute pain [facility] traMADoL 50 mg tablet 2022-0 -25 00:00: 00 Yes 4647 50mg Take 1 tablet by mouth every 4 (four) hours as needed for Pain (scale 7-10). Indication s: acute pain [facility] acetaminoph en-codeine (TYLENOL-CO DEINE #3) 300-30 mg tablet 2022-0 5-15 00:00: 00 Yes 4647 1{tbl} Take 1 tablet by mouth every 4 (four) hours as needed for Pain (scale 4-6) or Pain (scale 7-10). Indication s: acute pain [facility] acetaminoph en-codeine (TYLENOL-CO DEINE #3) 300-30 mg tablet 2022-0 5-15 00:00: 00 Yes 4647 1{tbl} Take 1 tablet by mouth every 4 (four) hours as needed for Pain (scale 4-6) or Pain (scale 7-10). Indication s: acute pain [facility] acetaminoph en-codeine (TYLENOL-CO DEINE #3) 300-30 mg tablet 2022-0 5-15 00:00: 00 Yes 4647 1{tbl} Take 1 tablet by mouth every 4 (four) hours as needed for Pain (scale 4-6) or Pain (scale 7-10). Indication s: acute pain [facility] acetaminoph en-codeine (TYLENOL-CO DEINE #3) 300-30 mg tablet 2022-0 -15 00:00: 00 Yes 4647 1{tbl} Take 1 tablet by mouth every 4 (four) hours as needed for Pain (scale 4-6) or Pain (scale 7-10). Indication s: acute pain [facility] acetaminoph en-codeine (TYLENOL-CO DEINE #3) 300-30 mg tablet 2022-0 -15 00:00: 00 Yes 4647 1{tbl} Take 1 tablet by mouth every 4 (four) hours as needed for Pain (scale 4-6) or Pain (scale 7-10). Indication s: acute pain [facility] acetaminoph en-codeine (TYLENOL-CO DEINE #3) 300-30 mg tablet 2022-0 5-15 00:00: 00 Yes 4647 1{tbl} Take 1 tablet by mouth every 4 (four) hours as needed for Pain (scale 4-6) or Pain (scale 7-10). Indication s: acute pain [facility] acetaminoph en-codeine (TYLENOL-CO DEINE #3) 300-30 mg tablet 3-0 5-15 00:00: 00 Yes 4647 1{tbl} Take 1 tablet by mouth every 4 (four) hours as needed for Pain (scale 4-6) or Pain (scale 7-10). Indication s: acute pain [facility] acetaminoph en-codeine (TYLENOL-CO DEINE #3) 300-30 mg tablet 2022-0 5-15 00:00: 00 Yes 4647 1{tbl} Take 1 tablet by mouth every 4 (four) hours as needed for Pain (scale 4-6) or Pain (scale 7-10). Indication s: acute pain [facility] acetaminoph en-codeine (TYLENOL-CO DEINE #3) 300-30 mg tablet 2022-0 5-15 00:00: 00 Yes 4647 1{tbl} Take 1 tablet by mouth every 4 (four) hours as needed for Pain (scale 4-6) or Pain (scale 7-10). Indication s: acute pain [facility] acetaminoph en-codeine (TYLENOL-CO DEINE #3) 300-30 mg tablet 2022-0 5-15 00:00: 00 Yes 4647 1{tbl} Take 1 tablet by mouth every 4 (four) hours as needed for Pain (scale 4-6) or Pain (scale 7-10). Indication s: acute pain [facility] acetaminoph en-codeine (TYLENOL-CO DEINE #3) 300-30 mg tablet 2022-0 5-15 00:00: 00 Yes 4647 1{tbl} Take 1 tablet by mouth every 4 (four) hours as needed for Pain (scale 4-6) or Pain (scale 7-10). Indication s: acute pain [facility] acetaminoph en-codeine (TYLENOL-CO DEINE #3) 300-30 mg tablet 2022-0 5-15 00:00: 00 Yes 4647 1{tbl} Take 1 tablet by mouth every 4 (four) hours as needed for Pain (scale 4-6) or Pain (scale 7-10). Indication s: acute pain [facility] acetaminoph en-codeine (TYLENOL-CO DEINE #3) 300-30 mg tablet 2022-0 5-15 00:00: 00 Yes 4647 1{tbl} Take 1 tablet by mouth every 4 (four) hours as needed for Pain (scale 4-6) or Pain (scale 7-10). Indication s: acute pain [facility] acetaminoph en-codeine (TYLENOL-CO DEINE #3) 300-30 mg tablet 2022-0 5-15 00:00: 00 Yes 4647 1{tbl} Take 1 tablet by mouth every 4 (four) hours as needed for Pain (scale 4-6) or Pain (scale 7-10). Indication s: acute pain [facility] acetaminoph en-codeine (TYLENOL-CO DEINE #3) 300-30 mg tablet 2022-0 5-15 00:00: 00 Yes 4647 1{tbl} Take 1 tablet by mouth every 4 (four) hours as needed for Pain (scale 4-6) or Pain (scale 7-10). Indication s: acute pain [facility] acetaminoph en-codeine (TYLENOL-CO DEINE #3) 300-30 mg tablet 2022-0 5-15 00:00: 00 Yes 4647 1{tbl} Take 1 tablet by mouth every 4 (four) hours as needed for Pain (scale 4-6) or Pain (scale 7-10). Indication s: acute pain [facility] acetaminoph en-codeine (TYLENOL-CO DEINE #3) 300-30 mg tablet 2022-0 5-15 00:00: 00 Yes 4647 1{tbl} Take 1 tablet by mouth every 4 (four) hours as needed for Pain (scale 4-6) or Pain (scale 7-10). Indication s: acute pain [facility] acetaminoph en-codeine (TYLENOL-CO DEINE #3) 300-30 mg tablet 3-0 5-15 00:00: 00 Yes 4647 1{tbl} Take 1 tablet by mouth every 4 (four) hours as needed for Pain (scale 4-6) or Pain (scale 7-10). Indication s: acute pain [facility] acetaminoph en-codeine (TYLENOL-CO DEINE #3) 300-30 mg tablet 3-0 5-15 00:00: 00 Yes 4647 1{tbl} Take 1 tablet by mouth every 4 (four) hours as needed for Pain (scale 4-6) or Pain (scale 7-10). Indication s: acute pain [facility] acetaminoph en-codeine (TYLENOL-CO DEINE #3) 300-30 mg tablet 2023-0 5-15 00:00: 00 Yes 4647 1{tbl} Take 1 tablet by mouth every 4 (four) hours as needed for Pain (scale 4-6) or Pain (scale 7-10). Indication s: acute pain [facility] acetaminoph en-codeine (TYLENOL-CO DEINE #3) 300-30 mg tablet 2023-0 5-10 00:00: 00 Yes 4647 1{tbl} Take 1 tablet by mouth every 4 (four) hours as needed for Pain (scale 4-6) or Pain (scale 7-10). Indication s: acute pain [facility] acetaminoph en-codeine (TYLENOL-CO DEINE #3) 300-30 mg tablet 3-0 5-10 00:00: 00 Yes 4647 1{tbl} Take 1 tablet by mouth every 4 (four) hours as needed for Pain (scale 4-6) or Pain (scale 7-10). Indication s: acute pain [facility] acetaminoph en-codeine (TYLENOL-CO DEINE #3) 300-30 mg tablet 2023-0 5-10 00:00: 00 Yes 4647 1{tbl} Take 1 tablet by mouth every 4 (four) hours as needed for Pain (scale 4-6) or Pain (scale 7-10). Indication s: acute pain [facility] acetaminoph en-codeine (TYLENOL-CO DEINE #3) 300-30 mg tablet 2023-0 5-10 00:00: 00 Yes 4647 1{tbl} Take 1 tablet by mouth every 4 (four) hours as needed for Pain (scale 4-6) or Pain (scale 7-10). Indication s: acute pain [facility] acetaminoph en-codeine (TYLENOL-CO DEINE #3) 300-30 mg tablet 2023-0 5-10 00:00: 00 Yes 4647 1{tbl} Take 1 tablet by mouth every 4 (four) hours as needed for Pain (scale 4-6) or Pain (scale 7-10). Indication s: acute pain [facility] acetaminoph en-codeine (TYLENOL-CO DEINE #3) 300-30 mg tablet 2023-0 5-10 00:00: 00 Yes 4647 1{tbl} Take 1 tablet by mouth every 4 (four) hours as needed for Pain (scale 4-6) or Pain (scale 7-10). Indication s: acute pain [facility] acetaminoph en-codeine (TYLENOL-CO DEINE #3) 300-30 mg tablet 2023-0 5-10 00:00: 00 Yes 4647 1{tbl} Take 1 tablet by mouth every 4 (four) hours as needed for Pain (scale 4-6) or Pain (scale 7-10). Indication s: acute pain [facility] acetaminoph en-codeine (TYLENOL-CO DEINE #3) 300-30 mg tablet 3-0 5-10 00:00: 00 Yes 4647 1{tbl} Take 1 tablet by mouth every 4 (four) hours as needed for Pain (scale 4-6) or Pain (scale 7-10). Indication s: acute pain [facility] acetaminoph en-codeine (TYLENOL-CO DEINE #3) 300-30 mg tablet 3-0 5-10 00:00: 00 Yes 4647 1{tbl} Take 1 tablet by mouth every 4 (four) hours as needed for Pain (scale 4-6) or Pain (scale 7-10). Indication s: acute pain [facility] acetaminoph en-codeine (TYLENOL-CO DEINE #3) 300-30 mg tablet 2023-0 5-10 00:00: 00 Yes 4647 1{tbl} Take 1 tablet by mouth every 4 (four) hours as needed for Pain (scale 4-6) or Pain (scale 7-10). Indication s: acute pain [facility] acetaminoph en-codeine (TYLENOL-CO DEINE #3) 300-30 mg tablet 2023-0 5-10 00:00: 00 Yes 4647 1{tbl} Take 1 tablet by mouth every 4 (four) hours as needed for Pain (scale 4-6) or Pain (scale 7-10). Indication s: acute pain [facility] acetaminoph en-codeine (TYLENOL-CO DEINE #3) 300-30 mg tablet 2023-0 5-10 00:00: 00 Yes 4647 1{tbl} Take 1 tablet by mouth every 4 (four) hours as needed for Pain (scale 4-6) or Pain (scale 7-10). Indication s: acute pain [facility] acetaminoph en-codeine (TYLENOL-CO DEINE #3) 300-30 mg tablet 2022-0 5-10 00:00: 00 Yes 4647 1{tbl} Take 1 tablet by mouth every 4 (four) hours as needed for Pain (scale 4-6) or Pain (scale 7-10). Indication s: acute pain [facility] acetaminoph en-codeine (TYLENOL-CO DEINE #3) 300-30 mg tablet 3-0 5-10 00:00: 00 Yes 4647 1{tbl} Take 1 tablet by mouth every 4 (four) hours as needed for Pain (scale 4-6) or Pain (scale 7-10). Indication s: acute pain [facility] acetaminoph en-codeine (TYLENOL-CO DEINE #3) 300-30 mg tablet 3-0 5-10 00:00: 00 Yes 4647 1{tbl} Take 1 tablet by mouth every 4 (four) hours as needed for Pain (scale 4-6) or Pain (scale 7-10). Indication s: acute pain [facility] acetaminoph en-codeine (TYLENOL-CO DEINE #3) 300-30 mg tablet 3-0 5-10 00:00: 00 Yes 4647 1{tbl} Take 1 tablet by mouth every 4 (four) hours as needed for Pain (scale 4-6) or Pain (scale 7-10). Indication s: acute pain [facility] acetaminoph en-codeine (TYLENOL-CO DEINE #3) 300-30 mg tablet 2023-0 5-10 00:00: 00 Yes 4647 1{tbl} Take 1 tablet by mouth every 4 (four) hours as needed for Pain (scale 4-6) or Pain (scale 7-10). Indication s: acute pain [facility] acetaminoph en-codeine (TYLENOL-CO DEINE #3) 300-30 mg tablet 2022-0 5-10 00:00: 00 Yes 4647 1{tbl} Take 1 tablet by mouth every 4 (four) hours as needed for Pain (scale 4-6) or Pain (scale 7-10). Indication s: acute pain [facility] acetaminoph en-codeine (TYLENOL-CO DEINE #3) 300-30 mg tablet 10 00:00: 00 Yes 4647 1{tbl} Take 1 tablet by mouth every 4 (four) hours as needed for Pain (scale 4-6) or Pain (scale 7-10). Indication s: acute pain [facility] acetaminoph en-codeine (TYLENOL-CO DEINE #3) 300-30 mg tablet 2022-0 10 00:00: 00 Yes 4647 1{tbl} Take 1 tablet by mouth every 4 (four) hours as needed for Pain (scale 4-6) or Pain (scale 7-10). Indication s: acute pain [facility] acetaminoph en-codeine (TYLENOL-CO DEINE #3) 300-30 mg tablet 2022-0 10 00:00: 00 Yes 4647 1{tbl} Take 1 tablet by mouth every 4 (four) hours as needed for Pain (scale 4-6) or Pain (scale 7-10). Indication s: acute pain [facility] acetaminoph en-codeine (TYLENOL-CO DEINE #3) 300-30 mg tablet 2022-0 10 00:00: 00 Yes 4647 1{tbl} Take 1 tablet by mouth every 4 (four) hours as needed for Pain (scale 4-6) or Pain (scale 7-10). Indication s: acute pain [facility] tranexamic acid (CYKLOKAPRO N) 1,000 mg in NaCl 0.9% (NS) 250 mL piggyback 07-02 04:00: 00 07-02 05:33 :00 No 1000mg 1,000 mg, IV Piggyback, ONCE, 1 dose, On Fri07/01/22 at 2300, Administer over 60 Minutes, 250 mL [facility] HYDROcodone -acetaminop hen (NORCO) 10-325 mg tablet 1 tablet 07-02 03:45: 00 07-02 02:50 :00 No 1{tbl} 1 tablet, Oral, ONCE, 1 dose, On Fri07/01/22 at 2245, Routine [facility] LORazepam (ATIVAN) tablet 1 mg 07-02 02:45: 00 07-02 02:49 :00 No 1mg 1 mg, Oral, ONCE, 1 dose, On Fri07/01/22 at 2145, LESLY [facility] lactated ringers IV infusion 1,000 mL 07-01 16:30: 00 Yes 1000mL at 50 mL/hr, 1,000 mL, IV Infusion, CONTINUOUS , Starting on Fri07/01/22 at 1130, Until Discontinu ed, Routine, PACU [facility] lactated ringers IV infusion 1,000 mL 07-01 16:30: 00 07-01 21:57 :33 No 1000mL at 50 mL/hr, 1,000 mL, IV Infusion, CONTINUOUS , Starting on Fri07/01/22 at 1130, Until Fri07/01/22 at 1657, Routine, PACU [facility] HYDROmorphO ne (DILAUDID) injection 0.2 mg 07-01 16:28: 29 Yes .2mg 0.2 mg, Slow IV Push, Q5MIN PRN, 10 doses, Starting on Fri07/01/22 at 1128, Until Discontinu ed, Routine, Pain (scale 7-10), PACU
Us e approved by (Faculty): PACU USE -ANESTHESI A SERVICE-HY DROMORPHON E INJECTIONS [facility] FENTanyl PF (SUBLIMAZE (PF)) injection 25 mcg 07-01 16:28: 29 Yes 25ug 25 mcg, Slow IV Push, Q5MIN PRN, 4 doses, Starting on Fri07/01/22 at 1128, Until Discontinu ed, Routine, Pain (scale 4-6), PACU [facility] proMETHazin e (PHENERGAN) 12.5 mg in NaCl 0.9% (NS) 50 mL IV piggyback 07-01 16:28: 07-01 17:40 :00 No 12.5mg 12.5 mg, IV Piggyback, PRN, 1 dose, Starting on Fri07/01/22 at 1128, Until Discontinu ed, Routine, Nausea and Vomiting (N/V), PACU [facility] HYDROmorphO ne (DILAUDID) injection 0.2 mg 07-01 16:28: 07-01 21:57 :33 No .2mg 0.2 mg, Slow IV Push, Q5MIN PRN, 10 doses, Starting on Fri07/01/22 at 1128, Until Fri07/01/22 at 1657, Routine, Pain (scale 7-10), PACU
Us e approved by (Faculty): PACU USE -ANESTHESI A SERVICE-HY DROMORPHON E INJECTIONS [facility] FENTanyl PF (SUBLIMAZE (PF)) injection 25 mcg 07-01 16:28: 07-01 21:57 :33 No 25ug 25 mcg, Slow IV Push, Q5MIN PRN, 4 doses, Starting on Fri07/01/22 at 1128, Until Fri07/01/22 at 1657, Routine, Pain (scale 4-6), PACU [facility] proMETHazin e (PHENERGAN) 12.5 mg in NaCl 0.9% (NS) 50 mL IV piggyback 07-01 16:: 07-01 17:40 :00 No 12.5mg 12.5 mg, IV Piggyback, PRN, 1 dose, Starting on Fri07/01/22 at 1128, Until Discontinu ed, Routine, Nausea and Vomiting (N/V), PACU [facility] bupivacaine (preserv free) (SENSORCAIN E MPF) 0.25 % (2.5 mg/mL) 30 mL, BUPivacaine liposome (PF) (EXPAREL (PF)) 1.3 % (13.3 mg/mL) 266 mg, NaCl 0.9% (NS) 70 mL 07-01 15:09: 00 07-01 16:28 :16 No PRN, Starting on Fri07/01/22 at 1009, Intra-op [facility] sodium chloride 0.9 % irrigation solution 07-01 15:08: 00 07-01 16:28 :16 No PRN, Starting on Fri07/01/22 at 1008, Until Fri07/01/22 at 1128, Intra-op [facility] lisinopril 10 mg tablet 07-01 14:57: 32 Yes Take by mouth daily. [facility] albuterol 1.25 mg/3 mL nebulizer solution 07-01 14:57: 32 Yes 1.25mg Use 3 mL as directed every 6 (six) hours as needed for Wheezing. [facility] ALPRAZolam 1 mg tablet 07-01 14:57: 32 Yes 1mg Take 1 tablet by mouth in the morning and 1 tablet at noon and 1 tablet in the evening. [facility] lisinopril 10 mg tablet 07-01 14:57: 32 Yes Take by mouth daily. [facility] albuterol 1.25 mg/3 mL nebulizer solution 07-01 14:57: 32 Yes 1.25mg Use 3 mL as directed every 6 (six) hours as needed for Wheezing. [facility] ALPRAZolam 1 mg tablet 07-01 14:57: 32 Yes 1mg Take 1 tablet by mouth in the morning and 1 tablet at noon and 1 tablet in the evening. [facility] lisinopril 10 mg tablet 07-01 14:57: 32 Yes Take by mouth daily. [facility] albuterol 1.25 mg/3 mL nebulizer solution 07-01 14:57: 32 Yes 1.25mg Use 3 mL as directed every 6 (six) hours as needed for Wheezing. [facility] tablet 07-01 14:57: 32 Yes 1mg Take 1 tablet by mouth in the morning and 1 tablet at noon and 1 tablet in the evening. [facility] lisinopril 10 mg tablet 07-01 14:57: 32 Yes Take by mouth daily. [facility] albuterol 1.25 mg/3 mL nebulizer solution 07-01 14:57: 32 Yes 1.25mg Use 3 mL as directed every 6 (six) hours as needed for Wheezing. [facility] ALPRAZolam 1 mg tablet 07-01 14:57: 32 Yes 1mg Take 1 tablet by mouth in the morning and 1 tablet at noon and 1 tablet in the evening. [facility] lisinopril 10 mg tablet 07-01 14:57: 32 Yes Take by mouth daily. [facility] albuterol 1.25 mg/3 mL nebulizer solution 07-01 14:57: 32 Yes 1.25mg Use 3 mL as directed every 6 (six) hours as needed for Wheezing. [facility] ALPRAZolam 1 mg tablet 07-01 14:57: 32 Yes 1mg Take 1 tablet by mouth in the morning and 1 tablet at noon and 1 tablet in the evening. [facility] lisinopril 10 mg tablet 07-01 14:57: 32 Yes Take by mouth daily. [facility] albuterol 1.25 mg/3 mL nebulizer solution 07-01 14:57: 32 Yes 1.25mg Use 3 mL as directed every 6 (six) hours as needed for Wheezing. [facility] ALPRAZolam 1 mg tablet 07-01 14:57: 32 Yes 1mg Take 1 tablet by mouth in the morning and 1 tablet at noon and 1 tablet in the evening. [facility] lisinopril 10 mg tablet 07-01 14:57: 32 Yes Take by mouth daily. [facility] albuterol 1.25 mg/3 mL nebulizer solution 07-01 14:57: 32 Yes 1.25mg Use 3 mL as directed every 6 (six) hours as needed for Wheezing. [facility] ALPRAZolam 1 mg tablet 07-01 14:57: 32 Yes 1mg Take 1 tablet by mouth in the morning and 1 tablet at noon and 1 tablet in the evening. [facility] lisinopril 10 mg tablet 07-01 14:57: 32 Yes Take by mouth daily. [facility] albuterol 1.25 mg/3 mL nebulizer solution 07-01 14:57: 32 Yes 1.25mg Use 3 mL as directed every 6 (six) hours as needed for Wheezing. [facility] ALPRAZolam 1 mg tablet 07-01 14:57: 32 Yes 1mg Take 1 tablet by mouth in the morning and 1 tablet at noon and 1 tablet in the evening. [facility] lisinopril 10 mg tablet 07-01 14:57: 32 Yes Take by mouth daily. [facility] albuterol 1.25 mg/3 mL nebulizer solution 07-01 14:57: 32 Yes 1.25mg Use 3 mL as directed every 6 (six) hours as needed for Wheezing. [facility] ALPRAZolam 1 mg tablet 07-01 14:57: 32 Yes 1mg Take 1 tablet by mouth in the morning and 1 tablet at noon and 1 tablet in the evening. [facility] lisinopril 10 mg tablet 07-01 14:57: 32 Yes Take by mouth daily. [facility] albuterol 1.25 mg/3 mL nebulizer solution 07-01 14:57: 32 Yes 1.25mg Use 3 mL as directed every 6 (six) hours as needed for Wheezing. [facility] ALPRAZolam 1 mg tablet 07-01 14:57: 32 Yes 1mg Take 1 tablet by mouth in the morning and 1 tablet at noon and 1 tablet in the evening. [facility] lisinopril 10 mg tablet 07-01 14:57: 32 Yes Take by mouth daily. [facility] albuterol 1.25 mg/3 mL nebulizer solution 07-01 14:57: 32 Yes 1.25mg Use 3 mL as directed every 6 (six) hours as needed for Wheezing. [facility] ALPRAZolam 1 mg tablet 07-01 14:57: 32 Yes 1mg Take 1 tablet by mouth in the morning and 1 tablet at noon and 1 tablet in the evening. [facility] lisinopril 10 mg tablet 07-01 14:57: 32 Yes Take by mouth daily. [facility] albuterol 1.25 mg/3 mL nebulizer solution 07-01 14:57: 32 Yes 1.25mg Use 3 mL as directed every 6 (six) hours as needed for Wheezing. [facility] ALPRAZolam 1 mg tablet 07-01 14:57: 32 Yes 1mg Take 1 tablet by mouth in the morning and 1 tablet at noon and 1 tablet in the evening. [facility] lisinopril 10 mg tablet 07-01 14:57: 32 Yes Take by mouth daily. [facility] albuterol 1.25 mg/3 mL nebulizer solution 07-01 14:57: 32 Yes 1.25mg Use 3 mL as directed every 6 (six) hours as needed for Wheezing. [facility] ALPRAZolam 1 mg tablet 07-01 14:57: 32 Yes 1mg Take 1 tablet by mouth in the morning and 1 tablet at noon and 1 tablet in the evening. [facility] lisinopril 10 mg tablet 07-01 14:57: 32 Yes Take by mouth daily. [facility] albuterol 1.25 mg/3 mL nebulizer solution 07-01 14:57: 32 Yes 1.25mg Use 3 mL as directed every 6 (six) hours as needed for Wheezing. [facility] ALPRAZolam 1 mg tablet 07-01 14:57: 32 Yes 1mg Take 1 tablet by mouth in the morning and 1 tablet at noon and 1 tablet in the evening. [facility] lisinopril 10 mg tablet 07-01 14:57: 32 Yes Take by mouth daily. [facility] albuterol 1.25 mg/3 mL nebulizer solution 07-01 14:57: 32 Yes 1.25mg Use 3 mL as directed every 6 (six) hours as needed for Wheezing. [facility] ALPRAZolam 1 mg tablet 07-01 14:57: 32 Yes 1mg Take 1 tablet by mouth in the morning and 1 tablet at noon and 1 tablet in the evening. [facility] lisinopril 10 mg tablet 07-01 14:57: 32 Yes Take by mouth daily. [facility] albuterol 1.25 mg/3 mL nebulizer solution 07-01 14:57: 32 Yes 1.25mg Use 3 mL as directed every 6 (six) hours as needed for Wheezing. [facility] ALPRAZolam 1 mg tablet 07-01 14:57: 32 Yes 1mg Take 1 tablet by mouth in the morning and 1 tablet at noon and 1 tablet in the evening. [facility] lisinopril 10 mg tablet 07-01 14:57: 32 Yes Take by mouth daily. [facility] albuterol 1.25 mg/3 mL nebulizer solution 07-01 14:57: 32 Yes 1.25mg Use 3 mL as directed every 6 (six) hours as needed for Wheezing. [facility] ALPRAZolam 1 mg tablet 07-01 14:57: 32 Yes 1mg Take 1 tablet by mouth in the morning and 1 tablet at noon and 1 tablet in the evening. [facility] lisinopril 10 mg tablet 07-01 14:57: 32 Yes Take by mouth daily. [facility] al[facility]er[facility] 1.25 mg/3 mL nebulizer solution 07-01 14:57: 32 Yes 1.25mg Use 3 mL as directed every 6 (six) hours as needed for Wheezing. [facility] ALPRAZolam 1 mg tablet 07-01 14:57: 32 Yes 1mg Take 1 tablet by mouth in the morning and 1 tablet at noon and 1 tablet in the evening. [facility] lisinopril 10 mg tablet 07-01 14:57: 32 Yes Take by mouth daily. [facility] albuterol 1.25 mg/3 mL nebulizer solution 07-01 14:57: 32 Yes 1.25mg Use 3 mL as directed every 6 (six) hours as needed for Wheezing. [facility] ALPRAZolam 1 mg tablet 07-01 14:57: 32 Yes 1mg Take 1 tablet by mouth in the morning and 1 tablet at noon and 1 tablet in the evening. [facility] lisinopril 10 mg tablet 07-01 14:57: 32 Yes Take by mouth daily. [facility] albuterol 1.25 mg/3 mL nebulizer solution 07-01 14:57: 32 Yes 1.25mg Use 3 mL as directed every 6 (six) hours as needed for Wheezing. [facility] ALPRAZolam 1 mg tablet 07-01 14:57: 32 Yes 1mg Take 1 tablet by mouth in the morning and 1 tablet at noon and 1 tablet in the evening. [facility] lisinopril 10 mg tablet 07-01 14:57: 32 Yes Take by mouth daily. [facility] albuterol 1.25 mg/3 mL nebulizer solution 07-01 14:57: 32 Yes 1.25mg Use 3 mL as directed every 6 (six) hours as needed for Wheezing. [facility] ALPRAZolam 1 mg tablet 07-01 14:57: 32 Yes 1mg Take 1 tablet by mouth in the morning and 1 tablet at noon and 1 tablet in the evening. [facility] lisinopril 10 mg tablet 07-01 14:57: 32 Yes Take by mouth daily. [facility] albuterol 1.25 mg/3 mL nebulizer solution 07-01 14:57: 32 Yes 1.25mg Use 3 mL as directed every 6 (six) hours as needed for Wheezing. [facility] ALPRAZolam 1 mg tablet 07-01 14:57: 32 Yes 1mg Take 1 tablet by mouth in the morning and 1 tablet at noon and 1 tablet in the evening. [facility] lisinopril 10 mg tablet 07-01 14:57: 32 Yes Take by mouth daily. [facility] albuterol 1.25 mg/3 mL nebulizer solution 07-01 14:57: 32 Yes 1.25mg Use 3 mL as directed every 6 (six) hours as needed for Wheezing. [facility] ALPRAZolam 1 mg tablet 07-01 14:57: 32 Yes 1mg Take 1 tablet by mouth in the morning and 1 tablet at noon and 1 tablet in the evening. [facility] lisinopril 10 mg tablet 07-01 14:57: 32 Yes Take by mouth daily. [facility] albuterol 1.25 mg/3 mL nebulizer solution 07-01 14:57: 32 Yes 1.25mg Use 3 mL as directed every 6 (six) hours as needed for Wheezing. [facility] ALPRAZolam 1 mg tablet 07-01 14:57: 32 Yes 1mg Take 1 tablet by mouth in the morning and 1 tablet at noon and 1 tablet in the evening. [facility] lisinopril 10 mg tablet 07-01 14:57: 32 Yes Take by mouth daily. [facility] albuterol 1.25 mg/3 mL nebulizer solution 07-01 14:57: 32 Yes 1.25mg Use 3 mL as directed every 6 (six) hours as needed for Wheezing. [facility] ALPRAZolam 1 mg tablet 07-01 14:57: 32 Yes 1mg Take 1 tablet by mouth in the morning and 1 tablet at noon and 1 tablet in the evening. [facility] lisinopril 10 mg tablet 07-01 14:57: 32 Yes Take by mouth daily. [facility] albuterol 1.25 mg/3 mL nebulizer solution 07-01 14:57: 32 Yes 1.25mg Use 3 mL as directed every 6 (six) hours as needed for Wheezing. [facility] ALPRAZolam 1 mg tablet 07-01 14:57: 32 Yes 1mg Take 1 tablet by mouth in the morning and 1 tablet at noon and 1 tablet in the evening. [facility] lisinopril 10 mg tablet 07-01 14:57: 32 Yes Take by mouth daily. [facility] albuterol 1.25 mg/3 mL nebulizer solution 07-01 14:57: 32 Yes 1.25mg Use 3 mL as directed every 6 (six) hours as needed for Wheezing. [facility] ALPRAZolam 1 mg tablet 07-01 14:57: 32 Yes 1mg Take 1 tablet by mouth in the morning and 1 tablet at noon and 1 tablet in the evening. [facility] lisinopril 10 mg tablet 07-01 14:57: 32 Yes Take by mouth daily. [facility] albuterol 1.25 mg/3 mL nebulizer solution 07-01 14:57: 32 Yes 1.25mg Use 3 mL as directed every 6 (six) hours as needed for Wheezing. [facility] ALPRAZolam 1 mg tablet 07-01 14:57: 32 Yes 1mg Take 1 tablet by mouth in the morning and 1 tablet at noon and 1 tablet in the evening. [facility] lisinopril 10 mg tablet 07-01 14:57: 32 Yes Take by mouth daily. [facility] albuterol 1.25 mg/3 mL nebulizer solution 07-01 14:57: 32 Yes 1.25mg Use 3 mL as directed every 6 (six) hours as needed for Wheezing. [facility] ALPRAZolam 1 mg tablet 07-01 14:57: 32 Yes 1mg Take 1 tablet by mouth in the morning and 1 tablet at noon and 1 tablet in the evening. [facility] lisinopril 10 mg tablet 07-01 14:57: 32 Yes Take by mouth daily. [facility] albuterol 1.25 mg/3 mL nebulizer solution 07-01 14:57: 32 Yes 1.25mg Use 3 mL as directed every 6 (six) hours as needed for Wheezing. [facility] ALPRAZolam 1 mg tablet 07-01 14:57: 32 Yes 1mg Take 1 tablet by mouth in the morning and 1 tablet at noon and 1 tablet in the evening. [facility] lisinopril 10 mg tablet 07-01 14:57: 32 Yes Take by mouth daily. [facility] albuterol 1.25 mg/3 mL nebulizer solution 07-01 14:57: 32 Yes 1.25mg Use 3 mL as directed every 6 (six) hours as needed for Wheezing. [facility] ALPRAZolam 1 mg tablet 07-01 14:57: 32 Yes 1mg Take 1 tablet by mouth in the morning and 1 tablet at noon and 1 tablet in the evening. [facility] lisinopril 10 mg tablet 07-01 14:57: 32 Yes Take by mouth daily. [facility] albuterol 1.25 mg/3 mL nebulizer solution 07-01 14:57: 32 Yes 1.25mg Use 3 mL as directed every 6 (six) hours as needed for Wheezing. [facility] ALPRAZolam 1 mg tablet 07-01 14:57: 32 Yes 1mg Take 1 tablet by mouth in the morning and 1 tablet at noon and 1 tablet in the evening. [facility] lisinopril 10 mg tablet 07-01 14:57: 32 Yes Take by mouth daily. [facility] albuterol 1.25 mg/3 mL nebulizer solution 07-01 14:57: 32 Yes 1.25mg Use 3 mL as directed every 6 (six) hours as needed for Wheezing. [facility] ALPRAZolam 1 mg tablet 07-01 14:57: 32 Yes 1mg Take 1 tablet by mouth in the morning and 1 tablet at noon and 1 tablet in the evening. [facility] lisinopril 10 mg tablet 07-01 14:57: 32 Yes Take by mouth daily. [facility] albuterol 1.25 mg/3 mL nebulizer solution 07-01 14:57: 32 Yes 1.25mg Use 3 mL as directed every 6 (six) hours as needed for Wheezing. [facility] ALPRAZolam 1 mg tablet 07-01 14:57: 32 Yes 1mg Take 1 tablet by mouth in the morning and 1 tablet at noon and 1 tablet in the evening. [facility] oxyCODONE-a cetaminophe n (PERCOCET) 5-325 mg per tablet 2 tablet 07-01 12:15: 00 07-01 12:07 :00 No 2{tbl} 2 tablet, Oral, ONCE, 1 dose, On Fri07/01/22 at 0715, Routine, [facility] Pre-op [facility] celecoxib (CELEBREX) capsule 400 mg 07-01 12:15: 00 07-01 12:07 :00 No 400mg 400 mg, Oral, ONCE, 1 dose, On Fri07/01/22 at 0715, Routine, DSU Pre-op [facility] lactated ringers IV infusion 1,000 mL 07-01 12:15: 00 07-01 12:17 :00 No 1000mL at 42 mL/hr, 1,000 mL, IV Infusion, ONCE, 1 dose, On 5/1/23 at 0715, Routine, [facility] oxy[facility]ODONE-a cetaminophe n (PERCOCET) 5-325 mg per tablet 2 tablet 07-01 12:15: 07-01 12:07 :00 No 2{tbl} 2 tablet, Oral, ONCE, 1 dose, On Fri07/01/22 at 0715, Routine, [facility] celecoxib (CELEBREX[facility] capsule 400 mg 07-01 12:15: 07-01 12:07 :00 No 400mg 400 mg, Oral, ONCE, 1 dose, On Fri07/01/22 at 0715, Routine, DSU Pre-op [facility] lactated ringers IV infusion 1,000 mL 07-01 12:15: 07-01 12:17 :00 No 1000mL at 42 mL/hr, 1,000 mL, IV Infusion, ONCE, 1 dose, On Fri07/01/22 at 0715, Routine, DSU Pre-op [facility] omeprazole 40 mg capsule 07-01 09:38: 07-01 00:00 :00 No 40mg Take 1 capsule by mouth in the morning. [facility] loratadine 10 mg tablet 07-01 09:38: 15 07-01 00:00 :00 No 10mg Take 1 tablet by mouth in the morning. [facility] aspirin 81 mg chewable tablet 07-01 09:38: 07-01 00:00 :00 No 81mg Take 1 tablet by mouth in the morning. [facility] omeprazole 40 mg capsule 07-01 09:38: 07-01 00:00 :00 No 40mg Take 1 capsule by mouth in the morning. [facility] loratadine 10 mg tablet 07-01 09:38: 15 07-01 00:00 :00 No 10mg Take 1 tablet by mouth in the morning. [facility] aspirin 81 mg chewable tablet 07-01 09:38: 15 07-01 00:00 :00 No 81mg Take 1 tablet by mouth in the morning. [facility] ALPRAZolam 1 mg tablet 07-01 09:38: 11 Yes 1mg Take 1 tablet by mouth in the morning and 1 tablet at noon and 1 tablet in the evening. [facility] lisinopril 10 mg tablet 07-01 09:38: 11 Yes Take by mouth daily. [facility] albuterol 1.25 mg/3 mL nebulizer solution 07-01 09:38: 11 Yes 1.25mg Use 3 mL as directed every 6 (six) hours as needed for Wheezing. [facility] ALPRAZolam 1 mg tablet 07-01 09:38: 11 Yes 1mg Take 1 tablet by mouth in the morning and 1 tablet at noon and 1 tablet in the evening. [facility] lisinopril 10 mg tablet 07-01 09:38: 11 Yes Take by mouth daily. [facility] albuterol 1.25 mg/3 mL nebulizer solution 07-01 09:38: 11 Yes 1.25mg Use 3 mL as directed every 6 (six) hours as needed for Wheezing. [facility] aspirin 325 mg tablet 07-01 00:00: 00 07-30 04:59 :00 No [id number] 325mg Take 1 tablet by mouth in the morning and 1 tablet in the evening. Take with meals. Do all this for 28 days. [facility] aspirin 325 mg tablet 07-01 00:00: 00 07-30 04:59 :00 No [id number] 325mg Take 1 tablet by mouth in the morning and 1 tablet in the evening. Take with meals. Do all this for 28 days. [facility] aspirin 325 mg tablet 07-01 00:00: 00 07-30 04:59 :00 No [id number] 9100 325mg Take 1 tablet by mouth in the morning and 1 tablet in the evening. Take with meals. Do all this for 28 days. [facility] aspirin 325 mg tablet 0 07-01 00:00: 00 07-30 04:59 :00 No [id number] 9100 325mg Take 1 tablet by mouth in the morning and 1 tablet in the evening. Take with meals. Do all this for 28 days. [facility] aspirin 325 mg tablet 0 07-01 00:00: 00 07-30 04:59 :00 No [id number] 9100 325mg Take 1 tablet by mouth in the morning and 1 tablet in the evening. Take with meals. Do all this for 28 days. [facility] aspirin 325 mg tablet 0 07-01 00:00: 00 07-30 04:59 :00 No [id number] 9100 325mg Take 1 tablet by mouth in the morning and 1 tablet in the evening. Take with meals. Do all this for 28 days. [facility] aspirin 325 mg tablet 0 07-01 00:00: 00 07-30 04:59 :00 No [id number] 9100 325mg Take 1 tablet by mouth in the morning and 1 tablet in the evening. Take with meals. Do all this for 28 days. [facility] aspirin 325 mg tablet 0 07-01 00:00: 00 07-30 04:59 :00 No [id number] 9100 325mg Take 1 tablet by mouth in the morning and 1 tablet in the evening. Take with meals. Do all this for 28 days. [facility] aspirin 325 mg tablet 0 07-01 00:00: 00 07-30 04:59 :00 No [id number] 325mg Take 1 tablet by mouth in the morning and 1 tablet in the evening. Take with meals. Do all this for 28 days. [facility] aspirin 325 mg tablet 0 07-01 00:00: 00 07-30 04:59 :00 No [id number] 9100 325mg Take 1 tablet by mouth in the morning and 1 tablet in the evening. Take with meals. Do all this for 28 days. [facility] aspirin 325 mg tablet 0 5 00:00: 00 07-30 04:59 :00 No [id number] 9100 325mg Take 1 tablet by mouth in the morning and 1 tablet in the evening. Take with meals. Do all this for 28 days. [facility] aspirin 325 mg tablet 2022-0 5 00:00: 00 07-30 04:59 :00 No [id number] 9100 325mg Take 1 tablet by mouth in the morning and 1 tablet in the evening. Take with meals. Do all this for 28 days. [facility] aspirin 325 mg tablet 2022-0 07-01 00:00: 00 07-30 04:59 :00 No [id number] 9100 325mg Take 1 tablet by mouth in the morning and 1 tablet in the evening. Take with meals. Do all this for 28 days. [facility] aspirin 325 mg tablet 2022-0 07-01 00:00: 00 07-30 04:59 :00 No [id number] 9100 325mg Take 1 tablet by mouth in the morning and 1 tablet in the evening. Take with meals. Do all this for 28 days. [facility] aspirin 325 mg tablet 2022-0 07-01 00:00: 00 07-30 04:59 :00 No [id number] 9100 325mg Take 1 tablet by mouth in the morning and 1 tablet in the evening. Take with meals. Do all this for 28 days. [facility] aspirin 325 mg tablet 2022-0 07-01 00:00: 00 07-30 04:59 :00 No [id number] 9100 325mg Take 1 tablet by mouth in the morning and 1 tablet in the evening. Take with meals. Do all this for 28 days. [facility] aspirin 325 mg tablet 2022-0 07-01 00:00: 00 07-30 04:59 :00 No [id number] 9100 325mg Take 1 tablet by mouth in the morning and 1 tablet in the evening. Take with meals. Do all this for 28 days. [facility] aspirin 325 mg tablet 2022-0 5 00:00: 00 07-30 04:59 :00 No [id number] 9100 325mg Take 1 tablet by mouth in the morning and 1 tablet in the evening. Take with meals. Do all this for 28 days. [facility] aspirin 325 mg tablet 07-01 00:00: 00 07-30 04:59 :00 No [id number] 9100 325mg Take 1 tablet by mouth in the morning and 1 tablet in the evening. Take with meals. Do all this for 28 days. [facility] aspirin 325 mg tablet 07-01 00:00: 00 07-30 04:59 :00 No [id number] 9100 325mg Take 1 tablet by mouth in the morning and 1 tablet in the evening. Take with meals. Do all this for 28 days. [facility] HYDROcodone -acetaminop hen 5-325 mg tablet 07-01 00:00: 00 07-09 04:59 :00 No 4647 1{tbl} Take 1 tablet by mouth every 6 (six) hours as needed for Pain (scale 4-6) or Pain (scale 7-10) for up to 7 days. Indication s: acute pain [facility] HYDROcodone -acetaminop hen 5-325 mg tablet 07-01 00:00: 00 07-09 04:59 :00 No 4647 1{tbl} Take 1 tablet by mouth every 6 (six) hours as needed for Pain (scale 4-6) or Pain (scale 7-10) for up to 7 days. Indication s: acute pain [facility] HYDROcodone -acetaminop hen 5-325 mg tablet 07-01 00:00: 00 07-09 04:59 :00 No 4647 1{tbl} Take 1 tablet by mouth every 6 (six) hours as needed for Pain (scale 4-6) or Pain (scale 7-10) for up to 7 days. Indication s: acute pain [facility] HYDROcodone -acetaminop hen 5-325 mg tablet 07-01 00:00: 00 07-09 04:59 :00 No 4647 1{tbl} Take 1 tablet by mouth every 6 (six) hours as needed for Pain (scale 4-6) or Pain (scale 7-10) for up to 7 days. Indication s: acute pain [facility] HYDROcodone -acetaminop hen 5-325 mg tablet 07-01 00:00: 00 07-09 04:59 :00 No 4647 1{tbl} Take 1 tablet by mouth every 6 (six) hours as needed for Pain (scale 4-6) or Pain (scale 7-10) for up to 7 days. Indication s: acute pain [facility] HYDROcodone -acetaminop hen 5-325 mg tablet 07-01 00:00: 00 07-09 04:59 :00 No 4647 1{tbl} Take 1 tablet by mouth every 6 (six) hours as needed for Pain (scale 4-6) or Pain (scale 7-10) for up to 7 days. Indication s: acute pain [facility] HYDROcodone -acetaminop hen 5-325 mg tablet 07-01 00:00: 00 07-09 04:59 :00 No 4647 1{tbl} Take 1 tablet by mouth every 6 (six) hours as needed for Pain (scale 4-6) or Pain (scale 7-10) for up to 7 days. Indication s: acute pain [facility] HYDROcodone -acetaminop hen 5-325 mg tablet 07-01 00:00: 00 07-09 04:59 :00 No 4647 1{tbl} Take 1 tablet by mouth every 6 (six) hours as needed for Pain (scale 4-6) or Pain (scale 7-10) for up to 7 days. Indication s: acute pain [facility] HYDROcodone -acetaminop hen 5-325 mg tablet 07-01 00:00: 00 07-09 04:59 :00 No 4647 1{tbl} Take 1 tablet by mouth every 6 (six) hours as needed for Pain (scale 4-6) or Pain (scale 7-10) for up to 7 days. Indication s: acute pain [facility] HYDROcodone -acetaminop hen 5-325 mg tablet 5 00:00: 00 07-09 04:59 :00 No 4647 1{tbl} Take 1 tablet by mouth every 6 (six) hours as needed for Pain (scale 4-6) or Pain (scale 7-10) for up to 7 days. Indication s: acute pain [facility] HYDROcodone -acetaminop hen 5-325 mg tablet 07-01 00:00: 00 07-09 04:59 :00 No 4647 1{tbl} Take 1 tablet by mouth every 6 (six) hours as needed for Pain (scale 4-6) or Pain (scale 7-10) for up to 7 days. Indication s: acute pain [facility] HYDROcodone -acetaminop hen 5-325 mg tablet 07-01 00:00: 00 07-09 04:59 :00 No 4647 1{tbl} Take 1 tablet by mouth every 6 (six) hours as needed for Pain (scale 4-6) or Pain (scale 7-10) for up to 7 days. [facility]: [facility]-codeine (TYLENOL-CO DEINE #3) 300-30 mg tablet 06-27 00:00: 00 Yes 4647 1{tbl} Take 1 tablet by mouth every 4 (four) hours as needed for Pain (scale 4-6) or Pain (scale 7-10). Indication s: acute pain [facility] acetaminoph en-codeine (TYLENOL-CO DEINE #3) 300-30 mg tablet 06-27 00:00: 00 Yes 4647 1{tbl} Take 1 tablet by mouth every 4 (four) hours as needed for Pain (scale 4-6) or Pain (scale 7-10). Indication s: acute pain [facility] acetaminoph en-codeine (TYLENOL-CO DEINE #3) 300-30 mg tablet 06-27 00:00: 00 Yes 4647 1{tbl} Take 1 tablet by mouth every 4 (four) hours as needed for Pain (scale 4-6) or Pain (scale 7-10). Indication s: acute pain [facility] acetaminoph en-codeine (TYLENOL-CO DEINE #3) 300-30 mg tablet 0 06-27 00:00: 00 Yes 4647 1{tbl} Take 1 tablet by mouth every 4 (four) hours as needed for Pain (scale 4-6) or Pain (scale 7-10). Indication s: acute pain [facility] acetaminoph en-codeine (TYLENOL-CO DEINE #3) 300-30 mg tablet 2022-0 06-27 00:00: 00 Yes 4647 1{tbl} Take 1 tablet by mouth every 4 (four) hours as needed for Pain (scale 4-6) or Pain (scale 7-10). Indication s: acute pain [facility] acetaminoph en-codeine (TYLENOL-CO DEINE #3) 300-30 mg tablet 2022-0 06-27 00:00: 00 Yes 4647 1{tbl} Take 1 tablet by mouth every 4 (four) hours as needed for Pain (scale 4-6) or Pain (scale 7-10). Indication s: acute pain [facility] acetaminoph en-codeine (TYLENOL-CO DEINE #3) 300-30 mg tablet 2022-06-27 00:00: 00 Yes 4647 1{tbl} Take 1 tablet by mouth every 4 (four) hours as needed for Pain (scale 4-6) or Pain (scale 7-10). Indication s: acute pain [facility] acetaminoph en-codeine (TYLENOL-CO DEINE #3) 300-30 mg tablet 2022-0 06-27 00:00: 00 Yes 4647 1{tbl} Take 1 tablet by mouth every 4 (four) hours as needed for Pain (scale 4-6) or Pain (scale 7-10). Indication s: acute pain [facility] acetaminoph en-codeine (TYLENOL-CO DEINE #3) 300-30 mg tablet 2022-0 06-27 00:00: 00 Yes 4647 1{tbl} Take 1 tablet by mouth every 4 (four) hours as needed for Pain (scale 4-6) or Pain (scale 7-10). Indication s: acute pain [facility] acetaminoph en-codeine (TYLENOL-CO DEINE #3) 300-30 mg tablet 06-27 00:00: 00 Yes 4647 1{tbl} Take 1 tablet by mouth every 4 (four) hours as needed for Pain (scale 4-6) or Pain (scale 7-10). Indication s: acute pain [facility] acetaminoph en-codeine (TYLENOL-CO DEINE #3) 300-30 mg tablet 06-27 00:00: 00 Yes 4647 1{tbl} Take 1 tablet by mouth every 4 (four) hours as needed for Pain (scale 4-6) or Pain (scale 7-10). Indication s: acute pain [facility] acetaminoph en-codeine (TYLENOL-CO DEINE #3) 300-30 mg tablet 06-27 00:00: 00 Yes 4647 1{tbl} Take 1 tablet by mouth every 4 (four) hours as needed for Pain (scale 4-6) or Pain (scale 7-10). Indication s: acute pain [facility] acetaminoph en-codeine (TYLENOL-CO DEINE #3) 300-30 mg tablet 06-27 00:00: 00 Yes 4647 1{tbl} Take 1 tablet by mouth every 4 (four) hours as needed for Pain (scale 4-6) or Pain (scale 7-10). Indication s: acute pain [facility] acetaminoph en-codeine (TYLENOL-CO DEINE #3) 300-30 mg tablet 0 06-27 00:00: 00 Yes 4647 1{tbl} Take 1 tablet by mouth every 4 (four) hours as needed for Pain (scale 4-6) or Pain (scale 7-10). Indication s: acute pain [facility] acetaminoph en-codeine (TYLENOL-CO DEINE #3) 300-30 mg tablet 2022-0 06-27 00:00: 00 Yes 4647 1{tbl} Take 1 tablet by mouth every 4 (four) hours as needed for Pain (scale 4-6) or Pain (scale 7-10). Indication s: acute pain [facility] acetaminoph en-codeine (TYLENOL-CO DEINE #3) 300-30 mg tablet 06-27 00:00: 00 Yes 4647 1{tbl} Take 1 tablet by mouth every 4 (four) hours as needed for Pain (scale 4-6) or Pain (scale 7-10). Indication s: acute pain [facility] acetaminoph en-codeine (TYLENOL-CO DEINE #3) 300-30 mg tablet 2022-0 06-27 00:00: 00 Yes 4647 1{tbl} Take 1 tablet by mouth every 4 (four) hours as needed for Pain (scale 4-6) or Pain (scale 7-10). Indication s: acute pain [facility] acetaminoph en-codeine (TYLENOL-CO DEINE #3) 300-30 mg tablet 06-27 00:00: 00 Yes 4647 1{tbl} Take 1 tablet by mouth every 4 (four) hours as needed for Pain (scale 4-6) or Pain (scale 7-10). Indication s: acute pain [facility] acetaminoph en-codeine (TYLENOL-CO DEINE #3) 300-30 mg tablet 06-27 00:00: 00 Yes 4647 1{tbl} Take 1 tablet by mouth every 4 (four) hours as needed for Pain (scale 4-6) or Pain (scale 7-10). Indication s: acute pain [facility] acetaminoph en-codeine (TYLENOL-CO DEINE #3) 300-30 mg tablet 2022-0 06-27 00:00: 00 Yes 4647 1{tbl} Take 1 tablet by mouth every 4 (four) hours as needed for Pain (scale 4-6) or Pain (scale 7-10). Indication s: acute pain [facility] acetaminoph en-codeine (TYLENOL-CO DEINE #3) 300-30 mg tablet 2022-0 06-27 00:00: 00 Yes 4647 1{tbl} Take 1 tablet by mouth every 4 (four) hours as needed for Pain (scale 4-6) or Pain (scale 7-10). Indication s: acute pain [facility] acetaminoph en-codeine (TYLENOL-CO DEINE #3) 300-30 mg tablet 06-27 00:00: 00 Yes 4647 1{tbl} Take 1 tablet by mouth every 4 (four) hours as needed for Pain (scale 4-6) or Pain (scale 7-10). Indication s: acute pain [facility] acetaminoph en-codeine (TYLENOL-CO DEINE #3) 300-30 mg tablet 06-27 00:00: 00 Yes 4647 1{tbl} Take 1 tablet by mouth every 4 (four) hours as needed for Pain (scale 4-6) or Pain (scale 7-10). Indication s: acute pain [facility] acetaminoph en-codeine (TYLENOL-CO DEINE #3) 300-30 mg tablet 06-27 00:00: 00 Yes 4647 1{tbl} Take 1 tablet by mouth every 4 (four) hours as needed for Pain (scale 4-6) or Pain (scale 7-10). Indication s: acute pain [facility] acetaminoph en-codeine (TYLENOL-CO DEINE #3) 300-30 mg tablet 06-27 00:00: 00 Yes 4647 1{tbl} Take 1 tablet by mouth every 4 (four) hours as needed for Pain (scale 4-6) or Pain (scale 7-10). Indication s: acute pain [facility] acetaminoph en-codeine (TYLENOL-CO DEINE #3) 300-30 mg tablet 06-27 00:00: 00 Yes 4647 1{tbl} Take 1 tablet by mouth every 4 (four) hours as needed for Pain (scale 4-6) or Pain (scale 7-10). Indication s: acute pain [facility] acetaminoph en-codeine (TYLENOL-CO DEINE #3) 300-30 mg tablet 06-27 00:00: 00 Yes 4647 1{tbl} Take 1 tablet by mouth every 4 (four) hours as needed for Pain (scale 4-6) or Pain (scale 7-10). Indication s: acute pain [facility] acetaminoph en-codeine (TYLENOL-CO DEINE #3) 300-30 mg tablet 06-27 00:00: 00 Yes 4647 1{tbl} Take 1 tablet by mouth every 4 (four) hours as needed for Pain (scale 4-6) or Pain (scale 7-10). Indication s: acute pain [facility] acetaminoph en-codeine (TYLENOL-CO DEINE #3) 300-30 mg tablet 06-27 00:00: 00 Yes 4647 1{tbl} Take 1 tablet by mouth every 4 (four) hours as needed for Pain (scale 4-6) or Pain (scale 7-10). Indication s: acute pain [facility] acetaminoph en-codeine (TYLENOL-CO DEINE #3) 300-30 mg tablet 06-27 00:00: 00 Yes 4647 1{tbl} Take 1 tablet by mouth every 4 (four) hours as needed for Pain (scale 4-6) or Pain (scale 7-10). Indication s: acute pain [facility] acetaminoph en-codeine (TYLENOL-CO DEINE #3) 300-30 mg tablet 06-27 00:00: 00 Yes 4647 1{tbl} Take 1 tablet by mouth every 4 (four) hours as needed for Pain (scale 4-6) or Pain (scale 7-10). Indication s: acute pain [facility] acetaminoph en-codeine (TYLENOL-CO DEINE #3) 300-30 mg tablet 06-27 00:00: 00 Yes 4647 1{tbl} Take 1 tablet by mouth every 4 (four) hours as needed for Pain (scale 4-6) or Pain (scale 7-10). Indication s: acute pain [facility] acetaminoph en-codeine (TYLENOL-CO DEINE #3) 300-30 mg tablet 06-27 00:00: 00 Yes 4647 1{tbl} Take 1 tablet by mouth every 4 (four) hours as needed for Pain (scale 4-6) or Pain (scale 7-10). Indication s: acute pain [facility] acetaminoph en-codeine (TYLENOL-CO DEINE #3) 300-30 mg tablet 2022-0 06-27 00:00: 00 Yes 4647 1{tbl} Take 1 tablet by mouth every 4 (four) hours as needed for Pain (scale 4-6) or Pain (scale 7-10). Indication s: acute pain [facility] acetaminoph en-codeine (TYLENOL-CO DEINE #3) 300-30 mg tablet 2022-0 06-27 00:00: 00 Yes 4647 1{tbl} Take 1 tablet by mouth every 4 (four) hours as needed for Pain (scale 4-6) or Pain (scale 7-10). Indication s: acute pain [facility] omeprazole 40 mg capsule 3-0 -17 15:48: 19 Yes 40mg Take 1 capsule by mouth in the morning. [facility] omeprazole 40 mg capsule 3-0 4-17 15:48: 19 Yes 40mg Take 1 capsule by mouth in the morning. [facility] omeprazole 40 mg capsule 3-0 -17 15:48: 19 Yes 40mg Take 1 capsule by mouth in the morning. [facility] omeprazole 40 mg capsule 3-0 -17 15:48: 19 Yes 40mg Take 1 capsule by mouth in the morning. [facility] omeprazole 40 mg capsule 3-0 -17 15:48: 19 Yes 40mg Take 1 capsule by mouth in the morning. [facility] ALPRAZolam 1 mg tablet 2022-0 -17 15:46: 05 Yes 1mg Take 1 tablet by mouth in the morning and 1 tablet at noon and 1 tablet in the evening. [facility] loratadine 10 mg tablet 3-0 17 15:46: 05 Yes 10mg Take 1 tablet by mouth in the morning. [facility] aspirin 81 mg chewable tablet 3-0 17 15:46: 05 Yes 81mg Take 1 tablet by mouth in the morning. [facility] lisinopril 10 mg tablet 3-0 17 15:46: 05 Yes Take by mouth daily. [facility] albuterol 1.25 mg/3 mL nebulizer solution 2022-0 17 15:46: 05 Yes 1.25mg Use 3 mL as directed every 6 (six) hours as needed for Wheezing. [facility] ALPRAZolam 1 mg tablet 3-0 17 15:46: 05 Yes 1mg Take 1 tablet by mouth in the morning and 1 tablet at noon and 1 tablet in the evening. [facility] loratadine 10 mg tablet 2022-0 17 15:46: 05 Yes 10mg Take 1 tablet by mouth in the morning. [facility] aspirin 81 mg chewable tablet 2022-0 06-17 15:46: 05 Yes 81mg Take 1 tablet by mouth in the morning. [facility] lisinopril 10 mg tablet 2022-0 06-17 15:46: 05 Yes Take by mouth daily. [facility] albuterol 1.25 mg/3 mL nebulizer solution 2022-0 06-17 15:46: 05 Yes 1.25mg Use 3 mL as directed every 6 (six) hours as needed for Wheezing. [facility] ALPRAZolam 1 mg tablet 2022-0 17 15:46: 05 Yes 1mg Take 1 tablet by mouth in the morning and 1 tablet at noon and 1 tablet in the evening. [facility] loratadine 10 mg tablet 2022-0 17 15:46: 05 Yes 10mg Take 1 tablet by mouth in the morning. [facility] aspirin 81 mg chewable tablet 3-0 17 15:46: 05 Yes 81mg Take 1 tablet by mouth in the morning. [facility] lisinopril 10 mg tablet 3-0 17 15:46: 05 Yes Take by mouth daily. [facility] albuterol 1.25 mg/3 mL nebulizer solution 3-0 17 15:46: 05 Yes 1.25mg Use 3 mL as directed every 6 (six) hours as needed for Wheezing. [facility] ALPRAZolam 1 mg tablet 06-17 15:46: 05 Yes 1mg Take 1 tablet by mouth in the morning and 1 tablet at noon and 1 tablet in the evening. [facility] loratadine 10 mg tablet 06-17 15:46: 05 Yes 10mg Take 1 tablet by mouth in the morning. [facility] aspirin 81 mg chewable tablet 06-17 15:46: 05 Yes 81mg Take 1 tablet by mouth in the morning. [facility] lisinopril 10 mg tablet 06-17 15:46: 05 Yes Take by mouth daily. [facility] albuterol 1.25 mg/3 mL nebulizer solution 06-17 15:46: 05 Yes 1.25mg Use 3 mL as directed every 6 (six) hours as needed for Wheezing. [facility] ALPRAZolam 1 mg tablet 06-17 15:46: 05 Yes 1mg Take 1 tablet by mouth in the morning and 1 tablet at noon and 1 tablet in the evening. [facility] loratadine 10 mg tablet 06-17 15:46: 05 Yes 10mg Take 1 tablet by mouth in the morning. [facility] aspirin 81 mg chewable tablet 06-17 15:46: 05 Yes 81mg Take 1 tablet by mouth in the morning. [facility] lisinopril 10 mg tablet 06-17 15:46: 05 Yes Take by mouth daily. [facility] albuterol 1.25 mg/3 mL nebulizer solution 06-17 15:46: 05 Yes 1.25mg Use 3 mL as directed every 6 (six) hours as needed for Wheezing. [facility] spironolact one-hydroch lorothiazid e 25-25 mg per tablet 06-11 00:00: 00 Yes 1{tbl} Take 1 tablet by mouth in the morning. [facility] spironolact one-hydroch lorothiazid e 25-25 mg per tablet 2022-0 411 00:00: 00 Yes 1{tbl} Take 1 tablet by mouth in the morning. [facility] spironolact one-hydroch lorothiazid e 25-25 mg per tablet 2022-0 4 00:00: 00 Yes 1{tbl} Take 1 tablet by mouth in the morning. [facility] spironolact one-hydroch lorothiazid e 25-25 mg per tablet 0 06-11 00:00: 00 Yes 1{tbl} Take 1 tablet by mouth in the morning. [facility] spironolact one-hydroch lorothiazid e 25-25 mg per tablet 0 06-11 00:00: 00 Yes 1{tbl} Take 1 tablet by mouth in the morning. [facility] spironolact one-hydroch lorothiazid e 25-25 mg per tablet 0 06-11 00:00: 00 Yes 1{tbl} Take 1 tablet by mouth in the morning. [facility] spironolact one-hydroch lorothiazid e 25-25 mg per tablet 0 06-11 00:00: 00 Yes 1{tbl} Take 1 tablet by mouth in the morning. [facility] spironolact one-hydroch lorothiazid e 25-25 mg per tablet 0 06-11 00:00: 00 Yes 1{tbl} Take 1 tablet by mouth in the morning. [facility] spironolact one-hydroch lorothiazid e 25-25 mg per tablet 2022-0 06-11 00:00: 00 Yes 1{tbl} Take 1 tablet by mouth in the morning. [facility] spironolact one-hydroch lorothiazid e 25-25 mg per tablet 0 06-11 00:00: 00 Yes 1{tbl} Take 1 tablet by mouth in the morning. [facility] spironolact one-hydroch lorothiazid e 25-25 mg per tablet 2022-0 411 00:00: 00 Yes 1{tbl} Take 1 tablet by mouth in the morning. [facility] spironolact one-hydroch lorothiazid e 25-25 mg per tablet 2022-0 411 00:00: 00 Yes 1{tbl} Take 1 tablet by mouth in the morning. [facility] spironolact one-hydroch lorothiazid e 25-25 mg per tablet 2022-0 411 00:00: 00 Yes 1{tbl} Take 1 tablet by mouth in the morning. [facility] spironolact one-hydroch lorothiazid e 25-25 mg per tablet 2022-0 11 00:00: 00 Yes 1{tbl} Take 1 tablet by mouth in the morning. [facility] spironolact one-hydroch lorothiazid e 25-25 mg per tablet 2022-0 06-11 00:00: 00 Yes 1{tbl} Take 1 tablet by mouth in the morning. [facility] spironolact one-hydroch lorothiazid e 25-25 mg per tablet 2022-0 06-11 00:00: 00 Yes 1{tbl} Take 1 tablet by mouth in the morning. [facility] spironolact one-hydroch lorothiazid e 25-25 mg per tablet 2022-0 06-11 00:00: 00 Yes 1{tbl} Take 1 tablet by mouth in the morning. [facility] spironolact one-hydroch lorothiazid e 25-25 mg per tablet 2022-0 06-11 00:00: 00 Yes 1{tbl} Take 1 tablet by mouth in the morning. [facility] spironolact one-hydroch lorothiazid e 25-25 mg per tablet 2022-0 411 00:00: 00 Yes 1{tbl} Take 1 tablet by mouth in the morning. [facility] spironolact one-hydroch lorothiazid e 25-25 mg per tablet 2022-0 11 00:00: 00 Yes 1{tbl} Take 1 tablet by mouth in the morning. [facility] spironolact one-hydroch lorothiazid e 25-25 mg per tablet 2022-0 4-11 00:00: 00 Yes 1{tbl} Take 1 tablet by mouth in the morning. [facility] spironolact one-hydroch lorothiazid e 25-25 mg per tablet 0 4 00:00: 00 Yes 1{tbl} Take 1 tablet by mouth in the morning. [facility] spironolact one-hydroch lorothiazid e 25-25 mg per tablet 2022-0 4 00:00: 00 Yes 1{tbl} Take 1 tablet by mouth in the morning. [facility] spironolact one-hydroch lorothiazid e 25-25 mg per tablet 0 06-11 00:00: 00 Yes 1{tbl} Take 1 tablet by mouth in the morning. [facility] spironolact one-hydroch lorothiazid e 25-25 mg per tablet 0 06-11 00:00: 00 Yes 1{tbl} Take 1 tablet by mouth in the morning. [facility] spironolact one-hydroch lorothiazid e 25-25 mg per tablet 0 06-11 00:00: 00 Yes 1{tbl} Take 1 tablet by mouth in the morning. [facility] spironolact one-hydroch lorothiazid e 25-25 mg per tablet 2022-0 06-11 00:00: 00 Yes 1{tbl} Take 1 tablet by mouth in the morning. [facility] spironolact one-hydroch lorothiazid e 25-25 mg per tablet 0 06-11 00:00: 00 Yes 1{tbl} Take 1 tablet by mouth in the morning. [facility] spironolact one-hydroch lorothiazid e 25-25 mg per tablet 2022-0 4 00:00: 00 Yes 1{tbl} Take 1 tablet by mouth in the morning. [facility] spironolact one-hydroch lorothiazid e 25-25 mg per tablet 2022-0 4 00:00: 00 Yes 1{tbl} Take 1 tablet by mouth in the morning. [facility] spironolact one-hydroch lorothiazid e 25-25 mg per tablet 2022-0 411 00:00: 00 Yes 1{tbl} Take 1 tablet by mouth in the morning. [facility] spironolact one-hydroch lorothiazid e 25-25 mg per tablet 2022-0 411 00:00: 00 Yes 1{tbl} Take 1 tablet by mouth in the morning. [facility] spironolact one-hydroch lorothiazid e 25-25 mg per tablet 0 4 00:00: 00 Yes 1{tbl} Take 1 tablet by mouth in the morning. [facility] spironolact one-hydroch lorothiazid e 25-25 mg per tablet 0 06-11 00:00: 00 Yes 1{tbl} Take 1 tablet by mouth in the morning. [facility] spironolact one-hydroch lorothiazid e 25-25 mg per tablet 2022-0 06-11 00:00: 00 Yes 1{tbl} Take 1 tablet by mouth in the morning. [facility] spironolact one-hydroch lorothiazid e 25-25 mg per tablet 2022-0 06-11 00:00: 00 Yes 1{tbl} Take 1 tablet by mouth in the morning. [facility] spironolact one-hydroch lorothiazid e 25-25 mg per tablet 2022-0 06-11 00:00: 00 Yes 1{tbl} Take 1 tablet by mouth in the morning. [facility] spironolact one-hydroch lorothiazid e 25-25 mg per tablet 2022-0 06-11 00:00: 00 Yes 1{tbl} Take 1 tablet by mouth in the morning. [facility] spironolact one-hydroch lorothiazid e 25-25 mg per tablet 2022-0 06-11 00:00: 00 Yes 1{tbl} Take 1 tablet by mouth in the morning. [facility] spironolact one-hydroch lorothiazid e 25-25 mg per tablet 2022-0 411 00:00: 00 Yes 1{tbl} Take 1 tablet by mouth in the morning. [facility] spironolact one-hydroch lorothiazid e 25-25 mg per tablet 06-11 00:00: 00 Yes 1{tbl} Take 1 tablet by mouth in the morning. [facility] ALPRAZolam 1 mg tablet 06-04 15:05: 28 Yes 1mg Take 1 tablet by mouth in the morning and 1 tablet at noon and 1 tablet in the evening. [facility] omeprazole 40 mg capsule 0 06-04 15:05: 28 Yes 40mg Take 1 capsule by mouth in the morning. [facility] loratadine 10 mg tablet 06-04 15:05: 28 Yes 10mg Take 1 tablet by mouth in the morning. [facility] aspirin 81 mg chewable tablet 06-04 15:05: 28 Yes 81mg Take 1 tablet by mouth in the morning. [facility] lisinopril 10 mg tablet 06-04 15:05: 28 Yes Take by mouth daily. [facility] albuterol 1.25 mg/3 mL nebulizer solution 06-04 15:05: 28 Yes 1.25mg Use 3 mL as directed every 6 (six) hours as needed for Wheezing. [facility] ALPRAZolam 1 mg tablet 06-04 15:05: 28 Yes 1mg Take 1 tablet by mouth in the morning and 1 tablet at noon and 1 tablet in the evening. [facility] omeprazole 40 mg capsule 06-04 15:05: 28 Yes 40mg Take 1 capsule by mouth in the morning. [facility] loratadine 10 mg tablet 0 06-04 15:05: 28 Yes 10mg Take 1 tablet by mouth in the morning. [facility] aspirin 81 mg chewable tablet 0 06-04 15:05: 28 Yes 81mg Take 1 tablet by mouth in the morning. [facility] lisinopril 10 mg tablet 0 06-04 15:05: 28 Yes Take by mouth daily. [facility] albuterol 1.25 mg/3 mL nebulizer solution 0 06-04 15:05: 28 Yes 1.25mg Use 3 mL as directed every 6 (six) hours as needed for Wheezing. [facility] ALPRAZolam 1 mg tablet 0 06-04 15:05: 28 Yes 1mg Take 1 tablet by mouth in the morning and 1 tablet at noon and 1 tablet in the evening. [facility] omeprazole 40 mg capsule 0 06-04 15:05: 28 Yes 40mg Take 1 capsule by mouth in the morning. [facility] loratadine 10 mg tablet 0 06-04 15:05: 28 Yes 10mg Take 1 tablet by mouth in the morning. [facility] aspirin 81 mg chewable tablet 06-04 15:05: 28 Yes 81mg Take 1 tablet by mouth in the morning. [facility] lisinopril 10 mg tablet 06-04 15:05: 28 Yes Take by mouth daily. [facility] albuterol 1.25 mg/3 mL nebulizer solution 06-04 15:05: 28 Yes 1.25mg Use 3 mL as directed every 6 (six) hours as needed for Wheezing. [facility] ALPRAZolam 1 mg tablet 06-04 15:05: 28 Yes 1mg Take 1 tablet by mouth in the morning and 1 tablet at noon and 1 tablet in the evening. [facility] omeprazole 40 mg capsule 06-04 15:05: 28 Yes 40mg Take 1 capsule by mouth in the morning. [facility] loratadine 10 mg tablet 0 06-04 15:05: 28 Yes 10mg Take 1 tablet by mouth in the morning. [facility] aspirin 81 mg chewable tablet 0 06-04 15:05: 28 Yes 81mg Take 1 tablet by mouth in the morning. [facility] lisinopril 10 mg tablet 0 06-04 15:05: 28 Yes Take by mouth daily. [facility] albuterol 1.25 mg/3 mL nebulizer solution 06-04 15:05: 28 Yes 1.25mg Use 3 mL as directed every 6 (six) hours as needed for Wheezing. [facility] ALPRAZolam 1 mg tablet 06-04 15:05: 28 Yes 1mg Take 1 tablet by mouth in the morning and 1 tablet at noon and 1 tablet in the evening. [facility] omeprazole 40 mg capsule 06-04 15:05: 28 Yes 40mg Take 1 capsule by mouth in the morning. [facility] loratadine 10 mg tablet 06-04 15:05: 28 Yes 10mg Take 1 tablet by mouth in the morning. [facility] aspirin 81 mg chewable tablet 06-04 15:05: 28 Yes 81mg Take 1 tablet by mouth in the morning. [facility] lisinopril 10 mg tablet 06-04 15:05: 28 Yes Take by mouth daily. [facility] albuterol 1.25 mg/3 mL nebulizer solution 06-04 15:05: 28 Yes 1.25mg Use 3 mL as directed every 6 (six) hours as needed for Wheezing. [facility] acetaminoph en-codeine (TYLENOL-CO DEINE #3) 300-30 mg tablet 06-03 00:00: 00 Yes 2745 1{tbl} Take 1 tablet by mouth every 4 (four) hours as needed for Pain (scale 4-6) or Pain (scale 7-10). Indication s: chronic pain [facility] acetaminoph en-codeine (TYLENOL-CO DEINE #3) 300-30 mg tablet 06-03 00:00: 00 Yes 2745 1{tbl} Take 1 tablet by mouth every 4 (four) hours as needed for Pain (scale 4-6) or Pain (scale 7-10). Indication s: chronic pain [facility] acetaminoph en-codeine (TYLENOL-CO DEINE #3) 300-30 mg tablet 06-03 00:00: 00 Yes 2745 1{tbl} Take 1 tablet by mouth every 4 (four) hours as needed for Pain (scale 4-6) or Pain (scale 7-10). Indication s: chronic pain [facility] acetaminoph en-codeine (TYLENOL-CO DEINE #3) 300-30 mg tablet 3-0 4-03 00:00: 00 Yes 2745 1{tbl} Take 1 tablet by mouth every 4 (four) hours as needed for Pain (scale 4-6) or Pain (scale 7-10). Indication s: chronic pain [facility] acetaminoph en-codeine (TYLENOL-CO DEINE #3) 300-30 mg tablet 2022-0 4-03 00:00: 00 Yes 2745 1{tbl} Take 1 tablet by mouth every 4 (four) hours as needed for Pain (scale 4-6) or Pain (scale 7-10). Indication s: chronic pain [facility] acetaminoph en-codeine (TYLENOL-CO DEINE #3) 300-30 mg tablet 2022-0 4-03 00:00: 00 Yes 2745 1{tbl} Take 1 tablet by mouth every 4 (four) hours as needed for Pain (scale 4-6) or Pain (scale 7-10). Indication s: chronic pain [facility] acetaminoph en-codeine (TYLENOL-CO DEINE #3) 300-30 mg tablet 2022- 4-03 00:00: 00 Yes 2745 1{tbl} Take 1 tablet by mouth every 4 (four) hours as needed for Pain (scale 4-6) or Pain (scale 7-10). Indication s: chronic pain [facility] acetaminoph en-codeine (TYLENOL-CO DEINE #3) 300-30 mg tablet 2022-0 4-03 00:00: 00 Yes 2745 1{tbl} Take 1 tablet by mouth every 4 (four) hours as needed for Pain (scale 4-6) or Pain (scale 7-10). Indication s: chronic pain [facility] acetaminoph en-codeine (TYLENOL-CO DEINE #3) 300-30 mg tablet 3-0 4-03 00:00: 00 Yes 2745 1{tbl} Take 1 tablet by mouth every 4 (four) hours as needed for Pain (scale 4-6) or Pain (scale 7-10). Indication s: chronic pain [facility] acetaminoph en-codeine (TYLENOL-CO DEINE #3) 300-30 mg tablet 3-0 4-03 00:00: 00 Yes 2745 1{tbl} Take 1 tablet by mouth every 4 (four) hours as needed for Pain (scale 4-6) or Pain (scale 7-10). Indication s: chronic pain [facility] acetaminoph en-codeine (TYLENOL-CO DEINE #3) 300-30 mg tablet 2022-0 06-03 00:00: 00 Yes 2745 1{tbl} Take 1 tablet by mouth every 4 (four) hours as needed for Pain (scale 4-6) or Pain (scale 7-10). Indication s: chronic pain [facility] acetaminoph en-codeine (TYLENOL-CO DEINE #3) 300-30 mg tablet 2022-0 06-03 00:00: 00 Yes 2745 1{tbl} Take 1 tablet by mouth every 4 (four) hours as needed for Pain (scale 4-6) or Pain (scale 7-10). Indication s: chronic pain [facility] acetaminoph en-codeine (TYLENOL-CO DEINE #3) 300-30 mg tablet 2022-0 4- 00:00: 00 Yes 2745 1{tbl} Take 1 tablet by mouth every 4 (four) hours as needed for Pain (scale 4-6) or Pain (scale 7-10). Indication s: chronic pain [facility] acetaminoph en-codeine (TYLENOL-CO DEINE #3) 300-30 mg tablet 3-0 4-03 00:00: 00 Yes 2745 1{tbl} Take 1 tablet by mouth every 4 (four) hours as needed for Pain (scale 4-6) or Pain (scale 7-10). Indication s: chronic pain [facility] acetaminoph en-codeine (TYLENOL-CO DEINE #3) 300-30 mg tablet 2022-0 4-03 00:00: 00 Yes 2745 1{tbl} Take 1 tablet by mouth every 4 (four) hours as needed for Pain (scale 4-6) or Pain (scale 7-10). Indication s: chronic pain [facility] acetaminoph en-codeine (TYLENOL-CO DEINE #3) 300-30 mg tablet 0 4 00:00: 00 Yes 2745 1{tbl} Take 1 tablet by mouth every 4 (four) hours as needed for Pain (scale 4-6) or Pain (scale 7-10). Indication s: chronic pain [facility] acetaminoph en-codeine (TYLENOL-CO DEINE #3) 300-30 mg tablet 06-03 00:00: 00 Yes 2745 1{tbl} Take 1 tablet by mouth every 4 (four) hours as needed for Pain (scale 4-6) or Pain (scale 7-10). Indication s: chronic pain [facility] acetaminoph en-codeine (TYLENOL-CO DEINE #3) 300-30 mg tablet 06-03 00:00: 00 Yes 2745 1{tbl} Take 1 tablet by mouth every 4 (four) hours as needed for Pain (scale 4-6) or Pain (scale 7-10). Indication s: chronic pain [facility] acetaminoph en-codeine (TYLENOL-CO DEINE #3) 300-30 mg tablet 06-03 00:00: 00 Yes 2745 1{tbl} Take 1 tablet by mouth every 4 (four) hours as needed for Pain (scale 4-6) or Pain (scale 7-10). Indication s: chronic pain [facility] acetaminoph en-codeine (TYLENOL-CO DEINE #3) 300-30 mg tablet 2022-0 06-03 00:00: 00 Yes 2745 1{tbl} Take 1 tablet by mouth every 4 (four) hours as needed for Pain (scale 4-6) or Pain (scale 7-10). Indication s: chronic pain [facility] acetaminoph en-codeine (TYLENOL-CO DEINE #3) 300-30 mg tablet 2022-0 4-03 00:00: 00 Yes 2745 1{tbl} Take 1 tablet by mouth every 4 (four) hours as needed for Pain (scale 4-6) or Pain (scale 7-10). Indication s: chronic pain [facility] acetaminoph en-codeine (TYLENOL-CO DEINE #3) 300-30 mg tablet 2022-0 4 00:00: 00 Yes 2745 1{tbl} Take 1 tablet by mouth every 4 (four) hours as needed for Pain (scale 4-6) or Pain (scale 7-10). Indication s: chronic pain [facility] acetaminoph en-codeine (TYLENOL-CO DEINE #3) 300-30 mg tablet 0 06-03 00:00: 00 Yes 2745 1{tbl} Take 1 tablet by mouth every 4 (four) hours as needed for Pain (scale 4-6) or Pain (scale 7-10). Indication s: chronic pain [facility] acetaminoph en-codeine (TYLENOL-CO DEINE #3) 300-30 mg tablet 2022-0 06-03 00:00: 00 Yes 2745 1{tbl} Take 1 tablet by mouth every 4 (four) hours as needed for Pain (scale 4-6) or Pain (scale 7-10). Indication s: chronic pain [facility] acetaminoph en-codeine (TYLENOL-CO DEINE #3) 300-30 mg tablet 0 06-03 00:00: 00 Yes 2745 1{tbl} Take 1 tablet by mouth every 4 (four) hours as needed for Pain (scale 4-6) or Pain (scale 7-10). Indication s: chronic pain [facility] acetaminoph en-codeine (TYLENOL-CO DEINE #3) 300-30 mg tablet 2022-0 06-03 00:00: 00 Yes 2745 1{tbl} Take 1 tablet by mouth every 4 (four) hours as needed for Pain (scale 4-6) or Pain (scale 7-10). Indication s: chronic pain [facility] acetaminoph en-codeine (TYLENOL-CO DEINE #3) 300-30 mg tablet 0 4-03 00:00: 00 Yes 2745 1{tbl} Take 1 tablet by mouth every 4 (four) hours as needed for Pain (scale 4-6) or Pain (scale 7-10). Indication s: chronic pain [facility] acetaminoph en-codeine (TYLENOL-CO DEINE #3) 300-30 mg tablet 2022-0 4-03 00:00: 00 Yes 2745 1{tbl} Take 1 tablet by mouth every 4 (four) hours as needed for Pain (scale 4-6) or Pain (scale 7-10). Indication s: chronic pain [facility] acetaminoph en-codeine (TYLENOL-CO DEINE #3) 300-30 mg tablet 0 06-03 00:00: 00 Yes 2745 1{tbl} Take 1 tablet by mouth every 4 (four) hours as needed for Pain (scale 4-6) or Pain (scale 7-10). Indication s: chronic pain [facility] acetaminoph en-codeine (TYLENOL-CO DEINE #3) 300-30 mg tablet 2022-0 -03 00:00: 00 Yes 2745 1{tbl} Take 1 tablet by mouth every 4 (four) hours as needed for Pain (scale 4-6) or Pain (scale 7-10). Indication s: chronic pain [facility] acetaminoph en-codeine (TYLENOL-CO DEINE #3) 300-30 mg tablet 2022-0 4-03 00:00: 00 Yes 2745 1{tbl} Take 1 tablet by mouth every 4 (four) hours as needed for Pain (scale 4-6) or Pain (scale 7-10). Indication s: chronic pain [facility] acetaminoph en-codeine (TYLENOL-CO DEINE #3) 300-30 mg tablet 2022-0 4-03 00:00: 00 Yes 2745 1{tbl} Take 1 tablet by mouth every 4 (four) hours as needed for Pain (scale 4-6) or Pain (scale 7-10). Indication s: chronic pain [facility] acetaminoph en-codeine (TYLENOL-CO DEINE #3) 300-30 mg tablet 2023-0 4-03 00:00: 00 Yes 2745 1{tbl} Take 1 tablet by mouth every 4 (four) hours as needed for Pain (scale 4-6) or Pain (scale 7-10). Indication s: chronic pain [facility] acetaminoph en-codeine (TYLENOL-CO DEINE #3) 300-30 mg tablet 3-0 4-03 00:00: 00 Yes 2745 1{tbl} Take 1 tablet by mouth every 4 (four) hours as needed for Pain (scale 4-6) or Pain (scale 7-10). Indication s: chronic pain [facility] acetaminoph en-codeine (TYLENOL-CO DEINE #3) 300-30 mg tablet 2022-0 4-03 00:00: 00 Yes 2745 1{tbl} Take 1 tablet by mouth every 4 (four) hours as needed for Pain (scale 4-6) or Pain (scale 7-10). Indication s: chronic pain [facility] acetaminoph en-codeine (TYLENOL-CO DEINE #3) 300-30 mg tablet 2022-0 4-03 00:00: 00 Yes 2745 1{tbl} Take 1 tablet by mouth every 4 (four) hours as needed for Pain (scale 4-6) or Pain (scale 7-10). Indication s: chronic pain [facility] acetaminoph en-codeine (TYLENOL-CO DEINE #3) 300-30 mg tablet 2022-0 4-03 00:00: 00 Yes 2745 1{tbl} Take 1 tablet by mouth every 4 (four) hours as needed for Pain (scale 4-6) or Pain (scale 7-10). Indication s: chronic pain [facility] acetaminoph en-codeine (TYLENOL-CO DEINE #3) 300-30 mg tablet 3-0 4-03 00:00: 00 Yes 2745 1{tbl} Take 1 tablet by mouth every 4 (four) hours as needed for Pain (scale 4-6) or Pain (scale 7-10). Indication s: chronic pain [facility] acetaminoph en-codeine (TYLENOL-CO DEINE #3) 300-30 mg tablet 2023-0 403 00:00: 00 Yes 2745 1{tbl} Take 1 tablet by mouth every 4 (four) hours as needed for Pain (scale 4-6) or Pain (scale 7-10). Indication s: chronic pain [facility] acetaminoph en-codeine (TYLENOL-CO DEINE #3) 300-30 mg tablet 2022-0 4-03 00:00: 00 Yes 2745 1{tbl} Take 1 tablet by mouth every 4 (four) hours as needed for Pain (scale 4-6) or Pain (scale 7-10). Indication s: chronic pain [facility] acetaminoph en-codeine (TYLENOL-CO DEINE #3) 300-30 mg tablet 0 06-03 00:00: 00 Yes 2745 1{tbl} Take 1 tablet by mouth every 4 (four) hours as needed for Pain (scale 4-6) or Pain (scale 7-10). Indication s: chronic pain [facility] acetaminoph en-codeine (TYLENOL-CO DEINE #3) 300-30 mg tablet 2022-0 06-03 00:00: 00 Yes 2745 1{tbl} Take 1 tablet by mouth every 4 (four) hours as needed for Pain (scale 4-6) or Pain (scale 7-10). Indication s: chronic pain [facility] acetaminoph en-codeine (TYLENOL-CO DEINE #3) 300-30 mg tablet 2022-0 - 00:00: 00 Yes 2745 1{tbl} Take 1 tablet by mouth every 4 (four) hours as needed for Pain (scale 4-6) or Pain (scale 7-10). Indication s: chronic pain [facility] acetaminoph en-codeine (TYLENOL-CO DEINE #3) 300-30 mg tablet 2022-0 4-03 00:00: 00 Yes 2745 1{tbl} Take 1 tablet by mouth every 4 (four) hours as needed for Pain (scale 4-6) or Pain (scale 7-10). Indication s: chronic pain [facility] acetaminoph en-codeine (TYLENOL-CO DEINE #3) 300-30 mg tablet 2023-0 4-03 00:00: 00 Yes 2745 1{tbl} Take 1 tablet by mouth every 4 (four) hours as needed for Pain (scale 4-6) or Pain (scale 7-10). Indication s: chronic pain [facility] acetaminoph en-codeine (TYLENOL-CO DEINE #3) 300-30 mg tablet 2023-0 4-03 00:00: 00 Yes 2745 1{tbl} Take 1 tablet by mouth every 4 (four) hours as needed for Pain (scale 4-6) or Pain (scale 7-10). Indication s: chronic pain [facility] acetaminoph en-codeine (TYLENOL-CO DEINE #3) 300-30 mg tablet 2023-0 4-03 00:00: 00 Yes 2745 1{tbl} Take 1 tablet by mouth every 4 (four) hours as needed for Pain (scale 4-6) or Pain (scale 7-10). Indication s: chronic pain [facility] acetaminoph en-codeine (TYLENOL-CO DEINE #3) 300-30 mg tablet 3-0 4-03 00:00: 00 Yes 2745 1{tbl} Take 1 tablet by mouth every 4 (four) hours as needed for Pain (scale 4-6) or Pain (scale 7-10). Indication s: chronic pain [facility] celecoxib 100 mg capsule 3-0 3- 00:00: 00 Yes 100mg Take 1 capsule by mouth in the morning and 1 capsule in the evening. [facility] celecoxib 100 mg capsule 2023-0 3-21 00:00: 00 Yes 100mg Take 1 capsule by mouth in the morning and 1 capsule in the evening. [facility] celecoxib 100 mg capsule 2023-0 3- 00:00: 00 Yes 100mg Take 1 capsule by mouth in the morning and 1 capsule in the evening. [facility] celecoxib 100 mg capsule 2023-0 3- 00:00: 00 Yes 100mg Take 1 capsule by mouth in the morning and 1 capsule in the evening. [facility] celecoxib 100 mg capsule 2023-0 3-21 00:00: 00 Yes 100mg Take 1 capsule by mouth in the morning and 1 capsule in the evening. [facility] celecoxib 100 mg capsule 2023-0 3- 00:00: 00 Yes 100mg Take 1 capsule by mouth in the morning and 1 capsule in the evening. [facility] celecoxib 100 mg capsule 2023-0 3 00:00: 00 Yes 100mg Take 1 capsule by mouth in the morning and 1 capsule in the evening. [facility] celecoxib 100 mg capsule 2023-0 3- 00:00: 00 Yes 100mg Take 1 capsule by mouth in the morning and 1 capsule in the evening. [facility] celecoxib 100 mg capsule 2023-0 3 00:00: 00 Yes 100mg Take 1 capsule by mouth in the morning and 1 capsule in the evening. [facility] celecoxib 100 mg capsule 2023-0 3 00:00: 00 Yes 100mg Take 1 capsule by mouth in the morning and 1 capsule in the evening. [facility] celecoxib 100 mg capsule 2023-0 3 00:00: 00 Yes 100mg Take 1 capsule by mouth in the morning and 1 capsule in the evening. [facility] celecoxib 100 mg capsule 2023-0 3 00:00: 00 Yes 100mg Take 1 capsule by mouth in the morning and 1 capsule in the evening. [facility] celecoxib 100 mg capsule 2023-0 3 00:00: 00 Yes 100mg Take 1 capsule by mouth in the morning and 1 capsule in the evening. [facility] celecoxib 100 mg capsule 2023-0 3- 00:00: 00 Yes 100mg Take 1 capsule by mouth in the morning and 1 capsule in the evening. [facility] celecoxib 100 mg capsule 2023-0 3 00:00: 00 Yes 100mg Take 1 capsule by mouth in the morning and 1 capsule in the evening. [facility] celecoxib 100 mg capsule 2023-0 3- 00:00: 00 Yes 100mg Take 1 capsule by mouth in the morning and 1 capsule in the evening. [facility] celecoxib 100 mg capsule 2023-0 3- 00:00: 00 Yes 100mg Take 1 capsule by mouth in the morning and 1 capsule in the evening. [facility]-0 3-21 00:00: 00 Yes 100mg Take 1 capsule by mouth in the morning and 1 capsule in the evening. [facility] celecoxib 100 mg capsule 2023-0 3- 00:00: 00 Yes 100mg Take 1 capsule by mouth in the morning and 1 capsule in the evening. [facility] capsule 2023-0 3- 00:00: 00 Yes 100mg Take 1 capsule by mouth in the morning and 1 capsule in the evening. [facility] capsule 2023-0 3- 00:00: 00 Yes 100mg Take 1 capsule by mouth in the morning and 1 capsule in the evening. [facility] celecoxib 100 mg capsule 2023-0 3- 00:00: 00 Yes 100mg Take 1 capsule by mouth in the morning and 1 capsule in the evening. [facility] celecoxib 100 mg capsule 2023-0 3- 00:00: 00 Yes 100mg Take 1 capsule by mouth in the morning and 1 capsule in the evening. [facility] celecoxib 100 mg capsule 2023-0 3 00:00: 00 Yes 100mg Take 1 capsule by mouth in the morning and 1 capsule in the evening. [facility] celecoxib 100 mg capsule 2023-0 3 00:00: 00 Yes 100mg Take 1 capsule by mouth in the morning and 1 capsule in the evening. [facility] celecoxib 100 mg capsule 2023-0 3- 00:00: 00 Yes 100mg Take 1 capsule by mouth in the morning and 1 capsule in the evening. [facility] celecoxib 100 mg capsule 2023-0 3- 00:00: 00 Yes 100mg Take 1 capsule by mouth in the morning and 1 capsule in the evening. [facility] celecoxib 100 mg capsule 2023-0 3- 00:00: 00 Yes 100mg Take 1 capsule by mouth in the morning and 1 capsule in the evening. [facility] celecoxib 100 mg capsule 2023-0 3- 00:00: 00 Yes 100mg Take 1 capsule by mouth in the morning and 1 capsule in the evening. [facility] celecoxib 100 mg capsule 2023-0 3-21 00:00: 00 Yes 100mg Take 1 capsule by mouth in the morning and 1 capsule in the evening. [facility] 3-0 3-21 00:00: 00 Yes 100mg Take 1 capsule by mouth in the morning and 1 capsule in the evening. [facility] celecoxib 100 mg capsule 2023-0 3- 00:00: 00 Yes 100mg Take 1 capsule by mouth in the morning and 1 capsule in the evening. [facility] celecoxib 100 mg capsule 3-0 3 00:00: 00 Yes 100mg Take 1 capsule by mouth in the morning and 1 capsule in the evening. [facility] celecoxib 100 mg capsule 3-0 3- 00:00: 00 Yes 100mg Take 1 capsule by mouth in the morning and 1 capsule in the evening. [facility] celecoxib 100 mg capsule 2023-0 3 00:00: 00 Yes 100mg Take 1 capsule by mouth in the morning and 1 capsule in the evening. [facility] celecoxib 100 mg capsule 3-0 3 00:00: 00 Yes 100mg Take 1 capsule by mouth in the morning and 1 capsule in the evening. [facility] celecoxib 100 mg capsule 3-0 3 00:00: 00 Yes 100mg Take 1 capsule by mouth in the morning and 1 capsule in the evening. [facility] celecoxib 100 mg capsule 2023-0 3 00:00: 00 Yes 100mg Take 1 capsule by mouth in the morning and 1 capsule in the evening. [facility] celecoxib 100 mg capsule 2023-0 3 00:00: 00 Yes 100mg Take 1 capsule by mouth in the morning and 1 capsule in the evening. [facility] celecoxib 100 mg capsule 2023-0 3- 00:00: 00 Yes 100mg Take 1 capsule by mouth in the morning and 1 capsule in the evening. [facility] celecoxib 100 mg capsule 2023-0 3-21 00:00: 00 Yes 100mg Take 1 capsule by mouth in the morning and 1 capsule in the evening. [facility] celecoxib 100 mg capsule 2022-0 05-21 00:00: 00 Yes 100mg Take 1 capsule by mouth in the morning and 1 capsule in the evening. [facility] capsule 2022-0 05-21 00:00: 00 Yes 100mg Take 1 capsule by mouth in the morning and 1 capsule in the evening. [facility] cele[facility] mg capsule 2022-0 05-21 00:00: 00 Yes 100mg Take 1 capsule by mouth in the morning and 1 capsule in the evening. [facility] cele[facility]ib [facility] mg capsule 2022-0 05-21 00:00: 00 Yes 100mg Take 1 capsule by mouth in the morning and 1 capsule in the evening. [facility] celecoxib 100 mg capsule 2022-0 05-21 00:00: 00 Yes 100mg Take 1 capsule by mouth in the morning and 1 capsule in the evening. [facility] oxyCODONE-a cetaminophe n (PERCOCET) 5-325 mg per tablet 2 tablet 05-20 05:00: 00 05-20 16:59 :00 No 2{tbl} [facility] tranexamic acid (CYKLOKAPRO N) 1,000 mg in NaCl 0.9% (NS) 250 mL piggyback 05-20 05:00: 00 05-20 16:59 :00 No 1000mg [facility] oxyCODONE-a cetaminophe n (PERCOCET) 5-325 mg per tablet 2 tablet 05-20 05:00: 00 05-20 16:59 :00 No 2{tbl} [facility] tranexamic acid (CYKLOKAPRO N) 1,000 mg in NaCl 0.9% (NS) 250 mL piggyback 05-20 05:00: 00 05-20 16:59 :00 No 1000[facility] oxyCODONE-a cetaminophe n (PERCOCET) 5-325 mg per tablet 2 tablet 20 05:00: 00 05-20 16:59 :00 No 2{tbl} [facility] tranexamic acid (CYKLOKAPRO N) 1,000 mg in NaCl 0.9% (NS) 250 mL piggyback 05-20 05:00: 00 05-20 16:59 :00 No 1000mg [facility] oxyCODONE-a cetaminophe n (PERCOCET) 5-325 mg per tablet 2 tablet 05-20 05:00: 00 05-20 16:59 :00 No 2{tbl} [facility] tranexamic acid (CYKLOKAPRO N) 1,000 mg in NaCl 0.9% (NS) 250 mL piggyback 05-20 05:00: 00 05-20 16:59 :00 No 1000mg [facility] oxyCODONE-a cetaminophe n (PERCOCET) 5-325 mg per tablet 2 tablet 05-20 05:00: 00 05-20 16:59 :00 No 2{tbl} [facility] tranexamic acid (CYKLOKAPRO N) 1,000 mg in NaCl 0.9% (NS) 250 mL piggyback 05-20 05:00: 00 05-20 16:59 :00 No 1000mg [facility] oxyCODONE-a cetaminophe n (PERCOCET) 5-325 mg per tablet 2 tablet 05-20 05:00: 00 05-20 16:59 :00 No 2{tbl} [facility]examic [facility] (CYKLOKAPRO N) 1,000 mg in NaCl 0.9% (NS) 250 mL piggyback 05-20 05:00: 00 05-20 16:59 :00 No 1000mg [facility] predniSONE 10 mg tablet 05-13 00:00: 00 Yes 10mg Take 1 tablet by mouth in the morning. [facility] predniSONE 10 mg tablet 05-13 00:00: 00 Yes 10mg Take 1 tablet by mouth in the morning. [facility] predniSONE 10 mg tablet 3-0 3-13 00:00: 00 Yes 10mg Take 1 tablet by mouth in the morning. [facility] predniSONE 10 mg tablet 3-0 3-13 00:00: 00 Yes 10mg Take 1 tablet by mouth in the morning. [facility] predniSONE 10 mg tablet 3-0 3-13 00:00: 00 Yes 10mg Take 1 tablet by mouth in the morning. [facility] predniSONE 10 mg tablet 3-0 3-13 00:00: 00 Yes 10mg Take 1 tablet by mouth in the morning. [facility] predniSONE 10 mg tablet 3-0 3-13 00:00: 00 Yes 10mg Take 1 tablet by mouth in the morning. [facility] predniSONE 10 mg tablet 3-0 3-13 00:00: 00 Yes 10mg Take 1 tablet by mouth in the morning. [facility] predniSONE 10 mg tablet 3-0 3-13 00:00: 00 Yes 10mg Take 1 tablet by mouth in the morning. [facility] predniSONE 10 mg tablet 3-0 3-13 00:00: 00 Yes 10mg Take 1 tablet by mouth in the morning. [facility] predniSONE 10 mg tablet 3-0 3-13 00:00: 00 07-01 00:00 :00 No 10mg Take 1 tablet by mouth in the morning. [facility] predniSONE 10 mg tablet 3-0 3-13 00:00: 00 07-01 00:00 :00 No 10mg Take 1 tablet by mouth in the morning. [facility] ipratropium -albuteroL 0.5 mg-3 mg(2.5 mg base)/3 mL nebulizer solution 12 00:00: 00 Yes 3mL Inhale 3 mL as needed. [facility] ipratropium -albuteroL 0.5 mg-3 mg(2.5 mg base)/3 mL nebulizer solution 3-12 00:00: 00 Yes 3mL Inhale 3 mL as needed. [facility] ipratropium -albuteroL 0.5 mg-3 mg(2.5 mg base)/3 mL nebulizer solution 3-12 00:00: 00 Yes 3mL Inhale 3 mL as needed. [facility] ipratropium -albuteroL 0.5 mg-3 mg(2.5 mg base)/3 mL nebulizer solution 312 00:00: 00 Yes 3mL Inhale 3 mL as needed. [facility] ipratropium -albuteroL 0.5 mg-3 mg(2.5 mg base)/3 mL nebulizer solution 312 00:00: 00 Yes 3mL Inhale 3 mL as needed. [facility] ipratropium -albuteroL 0.5 mg-3 mg(2.5 mg base)/3 mL nebulizer solution 05-12 00:00: 00 Yes 3mL Inhale 3 mL as needed. [facility] ipratropium -albuteroL 0.5 mg-3 mg(2.5 mg base)/3 mL nebulizer solution 12 00:00: 00 Yes 3mL Inhale 3 mL as needed. [facility] ipratropium -albuteroL 0.5 mg-3 mg(2.5 mg base)/3 mL nebulizer solution 12 00:00: 00 Yes 3mL Inhale 3 mL as needed. [facility] ipratropium -albuteroL 0.5 mg-3 mg(2.5 mg base)/3 mL nebulizer solution 312 00:00: 00 Yes 3mL Inhale 3 mL as needed. [facility] ipratropium -albuteroL 0.5 mg-3 mg(2.5 mg base)/3 mL nebulizer solution 3-12 00:00: 00 Yes 3mL Inhale 3 mL as needed. [facility] ipratropium -albuteroL 0.5 mg-3 mg(2.5 mg base)/3 mL nebulizer solution 3-12 00:00: 00 Yes 3mL Inhale 3 mL as needed. [facility] ipratropium -albuteroL 0.5 mg-3 mg(2.5 mg base)/3 mL nebulizer solution 312 00:00: 00 Yes 3mL Inhale 3 mL as needed. [facility] ipratropium -albuteroL 0.5 mg-3 mg(2.5 mg base)/3 mL nebulizer solution 312 00:00: 00 Yes 3mL Inhale 3 mL as needed. [facility] ipratropium -albuteroL 0.5 mg-3 mg(2.5 mg base)/3 mL nebulizer solution 05-12 00:00: 00 Yes 3mL Inhale 3 mL as needed. [facility] ipratropium -albuteroL 0.5 mg-3 mg(2.5 mg base)/3 mL nebulizer solution 05-12 00:00: 00 Yes 3mL Inhale 3 mL as needed. [facility] ipratropium -albuteroL 0.5 mg-3 mg(2.5 mg base)/3 mL nebulizer solution 05-12 00:00: 00 Yes 3mL Inhale 3 mL as needed. [facility] ipratropium -albuteroL 0.5 mg-3 mg(2.5 mg base)/3 mL nebulizer solution 05-12 00:00: 00 Yes 3mL Inhale 3 mL as needed. [facility] ipratropium -albuteroL 0.5 mg-3 mg(2.5 mg base)/3 mL nebulizer solution 312 00:00: 00 Yes 3mL Inhale 3 mL as needed. [facility] ipratropium -albuteroL 0.5 mg-3 mg(2.5 mg base)/3 mL nebulizer solution 312 00:00: 00 Yes 3mL Inhale 3 mL as needed. [facility] ipratropium -albuteroL 0.5 mg-3 mg(2.5 mg base)/3 mL nebulizer solution 3-12 00:00: 00 Yes 3mL Inhale 3 mL as needed. [facility] ipratropium -albuteroL 0.5 mg-3 mg(2.5 mg base)/3 mL nebulizer solution 312 00:00: 00 Yes 3mL Inhale 3 mL as needed. [facility] ipratropium -albuteroL 0.5 mg-3 mg(2.5 mg base)/3 mL nebulizer solution 05-12 00:00: 00 Yes 3mL Inhale 3 mL as needed. [facility] ipratropium -albuteroL 0.5 mg-3 mg(2.5 mg base)/3 mL nebulizer solution 05-12 00:00: 00 Yes 3mL Inhale 3 mL as needed. [facility] ipratropium -albuteroL 0.5 mg-3 mg(2.5 mg base)/3 mL nebulizer solution 05-12 00:00: 00 Yes 3mL Inhale 3 mL as needed. [facility] ipratropium -albuteroL 0.5 mg-3 mg(2.5 mg base)/3 mL nebulizer solution 05-12 00:00: 00 Yes 3mL Inhale 3 mL as needed. [facility] ipratropium -albuteroL 0.5 mg-3 mg(2.5 mg base)/3 mL nebulizer solution 3 00:00: 00 Yes 3mL Inhale 3 mL as needed. [facility] ipratropium -albuteroL 0.5 mg-3 mg(2.5 mg base)/3 mL nebulizer solution 312 00:00: 00 Yes 3mL Inhale 3 mL as needed. [facility] ipratropium -albuteroL 0.5 mg-3 mg(2.5 mg base)/3 mL nebulizer solution 312 00:00: 00 Yes 3mL Inhale 3 mL as needed. [facility] ipratropium -albuteroL 0.5 mg-3 mg(2.5 mg base)/3 mL nebulizer solution 312 00:00: 00 Yes 3mL Inhale 3 mL as needed. [facility] ipratropium -albuteroL 0.5 mg-3 mg(2.5 mg base)/3 mL nebulizer solution 312 00:00: 00 Yes 3mL Inhale 3 mL as needed. [facility] ipratropium -albuteroL 0.5 mg-3 mg(2.5 mg base)/3 mL nebulizer solution 312 00:00: 00 Yes 3mL Inhale 3 mL as needed. [facility] ipratropium -albuteroL 0.5 mg-3 mg(2.5 mg base)/3 mL nebulizer solution 05-12 00:00: 00 Yes 3mL Inhale 3 mL as needed. [facility] ipratropium -albuteroL 0.5 mg-3 mg(2.5 mg base)/3 mL nebulizer solution 3 00:00: 00 Yes 3mL Inhale 3 mL as needed. [facility] ipratropium -albuteroL 0.5 mg-3 mg(2.5 mg base)/3 mL nebulizer solution 05-12 00:00: 00 Yes 3mL Inhale 3 mL as needed. [facility] ipratropium -albuteroL 0.5 mg-3 mg(2.5 mg base)/3 mL nebulizer solution 312 00:00: 00 Yes 3mL Inhale 3 mL as needed. [facility] ipratropium -albuteroL 0.5 mg-3 mg(2.5 mg base)/3 mL nebulizer solution 3-12 00:00: 00 Yes 3mL Inhale 3 mL as needed. [facility] ipratropium -albuteroL 0.5 mg-3 mg(2.5 mg base)/3 mL nebulizer solution 3-12 00:00: 00 Yes 3mL Inhale 3 mL as needed. [facility] ipratropium -albuteroL 0.5 mg-3 mg(2.5 mg base)/3 mL nebulizer solution 3-12 00:00: 00 Yes 3mL Inhale 3 mL as needed. [facility] ipratropium -albuteroL 0.5 mg-3 mg(2.5 mg base)/3 mL nebulizer solution 3-12 00:00: 00 Yes 3mL Inhale 3 mL as needed. [facility] ipratropium -albuteroL 0.5 mg-3 mg(2.5 mg base)/3 mL nebulizer solution 312 00:00: 00 Yes 3mL Inhale 3 mL as needed. [facility] ipratropium -albuteroL 0.5 mg-3 mg(2.5 mg base)/3 mL nebulizer solution 12 00:00: 00 Yes 3mL Inhale 3 mL as needed. [facility] ipratropium -albuteroL 0.5 mg-3 mg(2.5 mg base)/3 mL nebulizer solution 312 00:00: 00 Yes 3mL Inhale 3 mL as needed. [facility] ipratropium -albuteroL 0.5 mg-3 mg(2.5 mg base)/3 mL nebulizer solution 312 00:00: 00 Yes 3mL Inhale 3 mL as needed. [facility] ipratropium -albuteroL 0.5 mg-3 mg(2.5 mg base)/3 mL nebulizer solution 3-12 00:00: 00 Yes 3mL Inhale 3 mL as needed. [facility] ipratropium -albuteroL 0.5 mg-3 mg(2.5 mg base)/3 mL nebulizer solution 3-12 00:00: 00 Yes 3mL Inhale 3 mL as needed. [facility] ipratropium -albuteroL 0.5 mg-3 mg(2.5 mg base)/3 mL nebulizer solution 3-12 00:00: 00 Yes 3mL Inhale 3 mL as needed. [facility] traMADoL 50 mg tablet 3-0 3-10 00:00: 00 Yes 4647 50mg Take 1 tablet by mouth every 4 (four) hours as needed for Pain (scale 7-10). Indication s: acute pain [facility] traMADoL 50 mg tablet 3-0 3-10 00:00: 00 Yes 4647 50mg Take 1 tablet by mouth every 4 (four) hours as needed for Pain (scale 7-10). Indication s: acute pain [facility] traMADoL 50 mg tablet 3-0 3-10 00:00: 00 Yes 4647 50mg Take 1 tablet by mouth every 4 (four) hours as needed for Pain (scale 7-10). Indication s: acute pain [facility] traMADoL 50 mg tablet 3-0 3-10 00:00: 00 Yes 4647 50mg Take 1 tablet by mouth every 4 (four) hours as needed for Pain (scale 7-10). Indication s: acute pain [facility] traMADoL 50 mg tablet 3-0 3-10 00:00: 00 Yes 4647 50mg Take 1 tablet by mouth every 4 (four) hours as needed for Pain (scale 7-10). Indication s: acute pain [facility] traMADoL 50 mg tablet 3-0 3-10 00:00: 00 Yes 4647 50mg Take 1 tablet by mouth every 4 (four) hours as needed for Pain (scale 7-10). Indication s: acute pain [facility] traMADoL 50 mg tablet 3-0 3-10 00:00: 00 Yes 4647 50mg Take 1 tablet by mouth every 4 (four) hours as needed for Pain (scale 7-10). Indication s: acute pain [facility] traMADoL 50 mg tablet 3-0 3-10 00:00: 00 Yes 4647 50mg Take 1 tablet by mouth every 4 (four) hours as needed for Pain (scale 7-10). Indication s: acute pain [facility] traMADoL 50 mg tablet 3-0 3-10 00:00: 00 Yes 4647 50mg Take 1 tablet by mouth every 4 (four) hours as needed for Pain (scale 7-10). Indication s: acute pain [facility] traMADoL 50 mg tablet 3-0 3-10 00:00: 00 Yes 4647 50mg Take 1 tablet by mouth every 4 (four) hours as needed for Pain (scale 7-10). Indication s: acute pain [facility] traMADoL 50 mg tablet 3-0 3-10 00:00: 00 Yes 4647 50mg Take 1 tablet by mouth every 4 (four) hours as needed for Pain (scale 7-10). Indication s: acute pain [facility] traMADoL 50 mg tablet 3-0 3-10 00:00: 00 Yes 4647 50mg Take 1 tablet by mouth every 4 (four) hours as needed for Pain (scale 7-10). Indication s: acute pain [facility] traMADoL 50 mg tablet 3-0 3-10 00:00: 00 Yes 4647 50mg Take 1 tablet by mouth every 4 (four) hours as needed for Pain (scale 7-10). Indication s: acute pain [facility] traMADoL 50 mg tablet 3-0 3-10 00:00: 00 Yes 4647 50mg Take 1 tablet by mouth every 4 (four) hours as needed for Pain (scale 7-10). Indication s: acute pain [facility] traMADoL 50 mg tablet 3-0 3-10 00:00: 00 Yes 4647 50mg Take 1 tablet by mouth every 4 (four) hours as needed for Pain (scale 7-10). Indication s: acute pain [facility] traMADoL 50 mg tablet 3-0 3-10 00:00: 00 Yes 4647 50mg Take 1 tablet by mouth every 4 (four) hours as needed for Pain (scale 7-10). Indication s: acute pain [facility] traMADoL 50 mg tablet 3-0 3-10 00:00: 00 07-01 00:00 :00 No 4647 50mg Take 1 tablet by mouth every 4 (four) hours as needed for Pain (scale 7-10). Indication s: acute pain [facility] traMADoL 50 mg tablet 3-0 3-10 00:00: 00 07-01 00:00 :00 No 4647 50mg Take 1 tablet by mouth every 4 (four) hours as needed for Pain (scale 7-10). Indication s: acute pain [facility] levalbutero l (XOPENEX) nebulizer solution 1.25 mg 05-08 00:30: 00 05-07 23:44 :00 No 1.25mg 1.25 mg, Inhalation , ONCE, 1 dose, On Fri05/07/22 at 1830, Routine [facility] diclofenac 75 mg EC tablet 05-08 00:00: 00 06-08 04:59 :00 No [id number] 75mg Take 1 tablet by mouth in the morning and 1 tablet in the evening. Take with meals. Do all this for 30 days. [facility] diclofenac 75 mg EC tablet 05-08 00:00: 00 06-08 04:59 :00 No [id number] 9100 75mg Take 1 tablet by mouth in the morning and 1 tablet in the evening. Take with meals. Do all this for 30 days. [facility] diclofenac 75 mg EC tablet 05-08 00:00: 00 06-08 04:59 :00 No [id number] 9100 75mg Take 1 tablet by mouth in the morning and 1 tablet in the evening. Take with meals. Do all this for 30 days. [facility] diclofenac 75 mg EC tablet 05-08 00:00: 00 06-08 04:59 :00 No [id number] 9100 75mg Take 1 tablet by mouth in the morning and 1 tablet in the evening. Take with meals. Do all this for 30 days. [facility] diclofenac 75 mg EC tablet 2022-0 05-08 00:00: 00 06-08 04:59 :00 No [id number] 9100 75mg Take 1 tablet by mouth in the morning and 1 tablet in the evening. Take with meals. Do all this for 30 days. [facility] diclofenac 75 mg EC tablet 2022-0 05-08 00:00: 00 06-08 04:59 :00 No [id number] 9100 75mg Take 1 tablet by mouth in the morning and 1 tablet in the evening. Take with meals. Do all this for 30 days. [facility] diclofenac 75 mg EC tablet 0 08 00:00: 00 06-08 04:59 :00 No [id number] 9100 75mg Take 1 tablet by mouth in the morning and 1 tablet in the evening. Take with meals. Do all this for 30 days. [facility] diclofenac 75 mg EC tablet 0 05-08 00:00: 00 06-08 04:59 :00 No [id number] 9100 75mg Take 1 tablet by mouth in the morning and 1 tablet in the evening. Take with meals. Do all this for 30 days. [facility] diclofenac 75 mg EC tablet 05-08 00:00: 00 06-08 04:59 :00 No [id number] 9100 75mg Take 1 tablet by mouth in the morning and 1 tablet in the evening. Take with meals. Do all this for 30 days. [facility] diclofenac 75 mg EC tablet 05-08 00:00: 00 06-08 04:59 :00 No [id number] 9100 75mg Take 1 tablet by mouth in the morning and 1 tablet in the evening. Take with meals. Do all this for 30 days. [facility] diclofenac 75 mg EC tablet 05-08 00:00: 00 06-08 04:59 :00 No [id number] 9100 75mg Take 1 tablet by mouth in the morning and 1 tablet in the evening. Take with meals. Do all this for 30 days. [facility] diclofenac 75 mg EC tablet 05-08 00:00: 00 06-08 04:59 :00 No [id number] 9100 75mg Take 1 tablet by mouth in the morning and 1 tablet in the evening. Take with meals. Do all this for 30 days. [facility] ipratropium (ATROVENT) 0.02 % nebulizer solution 0.5 mg 05-07 23:45: 00 05-07 23:43 :00 No .5mg 0.5 mg, Inhalation , ONCE, 1 dose, On Fri05/07/22 at 1745, LESLY [facility] fluticasone propionate 50 mcg/actuati on nasal spray 2022-0 3 00:00: 00 Yes 2{spray } Use 2 Sprays in each nostril in the morning and 2 Sprays in the evening. [facility] fluticasone propionate 50 mcg/actuati on nasal spray 2022-0 3 00:00: 00 Yes 2{spray } Use 2 Sprays in each nostril in the morning and 2 Sprays in the evening. [facility] fluticasone propionate 50 mcg/actuati on nasal spray 2022-0 3 00:00: 00 Yes 2{spray } Use 2 Sprays in each nostril in the morning and 2 Sprays in the evening. [facility] fluticasone propionate 50 mcg/actuati on nasal spray 2022-0 05-03 00:00: 00 Yes 2{spray } Use 2 Sprays in each nostril in the morning and 2 Sprays in the evening. [facility] fluticasone propionate 50 mcg/actuati on nasal spray 2022-0 3 00:00: 00 Yes 2{spray } Use 2 Sprays in each nostril in the morning and 2 Sprays in the evening. [facility] fluticasone propionate 50 mcg/actuati on nasal spray 2022-0 3 00:00: 00 Yes 2{spray } Use 2 Sprays in each nostril in the morning and 2 Sprays in the evening. [facility] fluticasone propionate 50 mcg/actuati on nasal spray 2022-0 3 00:00: 00 Yes 2{spray } Use 2 Sprays in each nostril in the morning and 2 Sprays in the evening. [facility] fluticasone propionate 50 mcg/actuati on nasal spray 2022-0 3 00:00: 00 Yes 2{spray } Use 2 Sprays in each nostril in the morning and 2 Sprays in the evening. [facility] fluticasone propionate 50 mcg/actuati on nasal spray 2023-0 3 00:00: 00 Yes 2{spray } Use 2 Sprays in each nostril in the morning and 2 Sprays in the evening. [facility] fluticasone propionate 50 mcg/actuati on nasal spray 2022-0 3- 00:00: 00 Yes 2{spray } Use 2 Sprays in each nostril in the morning and 2 Sprays in the evening. [facility] fluticasone propionate 50 mcg/actuati on nasal spray 2022-0 3 00:00: 00 Yes 2{spray } Use 2 Sprays in each nostril in the morning and 2 Sprays in the evening. [facility] fluticasone propionate 50 mcg/actuati on nasal spray 2022-0 3 00:00: 00 Yes 2{spray } Use 2 Sprays in each nostril in the morning and 2 Sprays in the evening. [facility] fluticasone propionate 50 mcg/actuati on nasal spray 2022-0 3 00:00: 00 Yes 2{spray } Use 2 Sprays in each nostril in the morning and 2 Sprays in the evening. [facility] fluticasone propionate 50 mcg/actuati on nasal spray 2022-0 3 00:00: 00 Yes 2{spray } Use 2 Sprays in each nostril in the morning and 2 Sprays in the evening. [facility] fluticasone propionate 50 mcg/actuati on nasal spray 2022-0 3 00:00: 00 Yes 2{spray } Use 2 Sprays in each nostril in the morning and 2 Sprays in the evening. [facility] fluticasone propionate 50 mcg/actuati on nasal spray 3-0 3 00:00: 00 Yes 2{spray } Use 2 Sprays in each nostril in the morning and 2 Sprays in the evening. [facility] fluticasone propionate 50 mcg/actuati on nasal spray 2022-0 3- 00:00: 00 Yes 2{spray } Use 2 Sprays in each nostril in the morning and 2 Sprays in the evening. [facility] fluticasone propionate 50 mcg/actuati on nasal spray 2022-0 3 00:00: 00 Yes 2{spray } Use 2 Sprays in each nostril in the morning and 2 Sprays in the evening. [facility] fluticasone propionate 50 mcg/actuati on nasal spray 2022-0 3 00:00: 00 Yes 2{spray } Use 2 Sprays in each nostril in the morning and 2 Sprays in the evening. [facility] fluticasone propionate 50 mcg/actuati on nasal spray 2022-0 3 00:00: 00 Yes 2{spray } Use 2 Sprays in each nostril in the morning and 2 Sprays in the evening. [facility] fluticasone propionate 50 mcg/actuati on nasal spray 2022-0 05-03 00:00: 00 Yes 2{spray } Use 2 Sprays in each nostril in the morning and 2 Sprays in the evening. [facility] fluticasone propionate 50 mcg/actuati on nasal spray 2022-0 05-03 00:00: 00 Yes 2{spray } Use 2 Sprays in each nostril in the morning and 2 Sprays in the evening. [facility] fluticasone propionate 50 mcg/actuati on nasal spray 2022-0 05-03 00:00: 00 Yes 2{spray } Use 2 Sprays in each nostril in the morning and 2 Sprays in the evening. [facility] fluticasone propionate 50 mcg/actuati on nasal spray 2022-0 3 00:00: 00 Yes 2{spray } Use 2 Sprays in each nostril in the morning and 2 Sprays in the evening. [facility] fluticasone propionate 50 mcg/actuati on nasal spray 2022-0 3 00:00: 00 Yes 2{spray } Use 2 Sprays in each nostril in the morning and 2 Sprays in the evening. [facility] fluticasone propionate 50 mcg/actuati on nasal spray 2022-0 3 00:00: 00 Yes 2{spray } Use 2 Sprays in each nostril in the morning and 2 Sprays in the evening. [facility] fluticasone propionate 50 mcg/actuati on nasal spray 2022-0 3 00:00: 00 Yes 2{spray } Use 2 Sprays in each nostril in the morning and 2 Sprays in the evening. [facility] fluticasone propionate 50 mcg/actuati on nasal spray 2022-0 3 00:00: 00 Yes 2{spray } Use 2 Sprays in each nostril in the morning and 2 Sprays in the evening. [facility] fluticasone propionate 50 mcg/actuati on nasal spray 2022-0 3 00:00: 00 Yes 2{spray } Use 2 Sprays in each nostril in the morning and 2 Sprays in the evening. [facility] fluticasone propionate 50 mcg/actuati on nasal spray 2022-0 05-03 00:00: 00 Yes 2{spray } Use 2 Sprays in each nostril in the morning and 2 Sprays in the evening. [facility] fluticasone propionate 50 mcg/actuati on nasal spray 2022-0 05-03 00:00: 00 Yes 2{spray } Use 2 Sprays in each nostril in the morning and 2 Sprays in the evening. [facility] fluticasone propionate 50 mcg/actuati on nasal spray 2022-0 3 00:00: 00 Yes 2{spray } Use 2 Sprays in each nostril in the morning and 2 Sprays in the evening. [facility] fluticasone propionate 50 mcg/actuati on nasal spray 2022-0 3 00:00: 00 Yes 2{spray } Use 2 Sprays in each nostril in the morning and 2 Sprays in the evening. [facility] fluticasone propionate 50 mcg/actuati on nasal spray 2022-0 3 00:00: 00 Yes 2{spray } Use 2 Sprays in each nostril in the morning and 2 Sprays in the evening. [facility] fluticasone propionate 50 mcg/actuati on nasal spray 2022-0 3 00:00: 00 Yes 2{spray } Use 2 Sprays in each nostril in the morning and 2 Sprays in the evening. [facility] fluticasone propionate 50 mcg/actuati on nasal spray 2022-0 3 00:00: 00 Yes 2{spray } Use 2 Sprays in each nostril in the morning and 2 Sprays in the evening. [facility] fluticasone propionate 50 mcg/actuati on nasal spray 2022-0 3 00:00: 00 Yes 2{spray } Use 2 Sprays in each nostril in the morning and 2 Sprays in the evening. [facility] fluticasone propionate 50 mcg/actuati on nasal spray 2022-0 3 00:00: 00 Yes 2{spray } Use 2 Sprays in each nostril in the morning and 2 Sprays in the evening. [facility] fluticasone propionate 50 mcg/actuati on nasal spray 2022-0 3 00:00: 00 Yes 2{spray } Use 2 Sprays in each nostril in the morning and 2 Sprays in the evening. [facility] fluticasone propionate 50 mcg/actuati on nasal spray 2022-0 3 00:00: 00 Yes 2{spray } Use 2 Sprays in each nostril in the morning and 2 Sprays in the evening. [facility] fluticasone propionate 50 mcg/actuati on nasal spray 2022-0 3 00:00: 00 Yes 2{spray } Use 2 Sprays in each nostril in the morning and 2 Sprays in the evening. [facility] fluticasone propionate 50 mcg/actuati on nasal spray 2022-0 3 00:00: 00 Yes 2{spray } Use 2 Sprays in each nostril in the morning and 2 Sprays in the evening. [facility] fluticasone propionate 50 mcg/actuati on nasal spray 2022-0 3- 00:00: 00 Yes 2{spray } Use 2 Sprays in each nostril in the morning and 2 Sprays in the evening. [facility] fluticasone propionate 50 mcg/actuati on nasal spray 05-03 00:00: 00 Yes 2{spray } Use 2 Sprays in each nostril in the morning and 2 Sprays in the evening. [facility] fluticasone propionate 50 mcg/actuati on nasal spray 05-03 00:00: 00 Yes 2{spray } Use 2 Sprays in each nostril in the morning and 2 Sprays in the evening. [facility] fluticasone propionate 50 mcg/actuati on nasal spray 05-03 00:00: 00 Yes 2{spray } Use 2 Sprays in each nostril in the morning and 2 Sprays in the evening. [facility] atorvastati n 20 mg tablet 04-23 09:39: 42 04-23 00:00 :00 No 20mg Take 20 mg by mouth daily. [facility] atorvastati n 20 mg tablet 04-23 09:39: 42 04-23 00:00 :00 No 20mg Take 20 mg by mouth daily. [facility] ALPRAZolam 1 mg tablet 04-23 08:34: 43 Yes 1mg Take 1 mg by mouth 3 (three) times daily. [facility] omeprazole 40 mg capsule 04-23 08:34: 43 Yes 40mg Take 40 mg by mouth daily. [facility] loratadine 10 mg tablet 04-23 08:34: 43 Yes 10mg Take 10 mg by mouth daily. [facility] aspirin 81 mg chewable tablet 04-23 08:34: 43 Yes 81mg Take 81 mg by mouth daily. [facility] lisinopril 10 mg tablet 04-23 08:34: 43 Yes Take by mouth daily. [facility] albuterol 1.25 mg/3 mL nebulizer solution 04-23 08:34: 43 Yes 1{ampul e} Use 1 Ampule as directed every 6 (six) hours as needed for Wheezing. [facility] ALPRAZolam 1 mg tablet 04-23 08:34: 43 Yes 1mg Take 1 mg by mouth 3 (three) times daily. [facility] omeprazole 40 mg capsule 0 04-23 08:34: 43 Yes 40mg Take 40 mg by mouth daily. [facility] loratadine 10 mg tablet 0 04-23 08:34: 43 Yes 10mg Take 10 mg by mouth daily. [facility] aspirin 81 mg chewable tablet 0 04-23 08:34: 43 Yes 81mg Take 81 mg by mouth daily. [facility] lisinopril 10 mg tablet 0 04-23 08:34: 43 Yes Take by mouth daily. [facility] albuterol 1.25 mg/3 mL nebulizer solution 04-23 08:34: 43 Yes 1{ampul e} Use 1 Ampule as directed every 6 (six) hours as needed for Wheezing. [facility] ALPRAZolam 1 mg tablet 04-23 08:34: 43 Yes 1mg Take 1 mg by mouth 3 (three) times daily. [facility] omeprazole 40 mg capsule 0 04-23 08:34: 43 Yes 40mg Take 40 mg by mouth daily. [facility] loratadine 10 mg tablet 04-23 08:34: 43 Yes 10mg Take 10 mg by mouth daily. [facility] aspirin 81 mg chewable tablet 04-23 08:34: 43 Yes 81mg Take 81 mg by mouth daily. [facility] lisinopril 10 mg tablet 04-23 08:34: 43 Yes Take by mouth daily. [facility] albuterol 1.25 mg/3 mL nebulizer solution 0 04-23 08:34: 43 Yes 1{ampul e} Use 1 Ampule as directed every 6 (six) hours as needed for Wheezing. [facility] ALPRAZolam 1 mg tablet 0 04-23 08:34: 43 Yes 1mg Take 1 mg by mouth 3 (three) times daily. [facility] omeprazole 40 mg capsule 0 04-23 08:34: 43 Yes 40mg Take 40 mg by mouth daily. [facility] loratadine 10 mg tablet 0 04-23 08:34: 43 Yes 10mg Take 10 mg by mouth daily. [facility] aspirin 81 mg chewable tablet 2022-0 04-23 08:34: 43 Yes 81mg Take 81 mg by mouth daily. [facility] lisinopril 10 mg tablet 0 04-23 08:34: 43 Yes Take by mouth daily. [facility] albuterol 1.25 mg/3 mL nebulizer solution 0 04-23 08:34: 43 Yes 1{ampul e} Use 1 Ampule as directed every 6 (six) hours as needed for Wheezing. [facility] ALPRAZolam 1 mg tablet 0 04-23 08:34: 43 Yes 1mg Take 1 mg by mouth 3 (three) times daily. [facility] omeprazole 40 mg capsule 0 04-23 08:34: 43 Yes 40mg Take 40 mg by mouth daily. [facility] loratadine 10 mg tablet 0 04-23 08:34: 43 Yes 10mg Take 10 mg by mouth daily. [facility] aspirin 81 mg chewable tablet 04-23 08:34: 43 Yes 81mg Take 81 mg by mouth daily. [facility] lisinopril 10 mg tablet 0 04-23 08:34: 43 Yes Take by mouth daily. [facility] albuterol 1.25 mg/3 mL nebulizer solution 04-23 08:34: 43 Yes 1{ampul e} Use 1 Ampule as directed every 6 (six) hours as needed for Wheezing. [facility] ALPRAZolam 1 mg tablet 0 04-23 08:34: 43 Yes 1mg Take 1 mg by mouth 3 (three) times daily. [facility] omeprazole 40 mg capsule 0 04-23 08:34: 43 Yes 40mg Take 40 mg by mouth daily. [facility] loratadine 10 mg tablet 04-23 08:34: 43 Yes 10mg Take 10 mg by mouth daily. [facility] aspirin 81 mg chewable tablet 0 04-23 08:34: 43 Yes 81mg Take 81 mg by mouth daily. [facility] lisinopril 10 mg tablet 0 04-23 08:34: 43 Yes Take by mouth daily. [facility] albuterol 1.25 mg/3 mL nebulizer solution 04-23 08:34: 43 Yes 1{ampul e} Use 1 Ampule as directed every 6 (six) hours as needed for Wheezing. [facility] ALPRAZolam 1 mg tablet 0 04-23 08:34: 43 Yes 1mg Take 1 mg by mouth 3 (three) times daily. [facility] omeprazole 40 mg capsule 04-23 08:34: 43 Yes 40mg Take 40 mg by mouth daily. [facility] loratadine 10 mg tablet 04-23 08:34: 43 Yes 10mg Take 10 mg by mouth daily. [facility] aspirin 81 mg chewable tablet 04-23 08:34: 43 Yes 81mg Take 81 mg by mouth daily. [facility] lisinopril 10 mg tablet 04-23 08:34: 43 Yes Take by mouth daily. [facility] albuterol 1.25 mg/3 mL nebulizer solution 04-23 08:34: 43 Yes 1{ampul e} Use 1 Ampule as directed every 6 (six) hours as needed for Wheezing. [facility] ALPRAZolam 1 mg tablet 0 04-23 08:34: 43 Yes 1mg Take 1 mg by mouth 3 (three) times daily. [facility] omeprazole 40 mg capsule 0 04-23 08:34: 43 Yes 40mg Take 40 mg by mouth daily. [facility] loratadine 10 mg tablet 0 04-23 08:34: 43 Yes 10mg Take 10 mg by mouth daily. [facility] aspirin 81 mg chewable tablet 04-23 08:34: 43 Yes 81mg Take 81 mg by mouth daily. [facility] lisinopril 10 mg tablet 0 04-23 08:34: 43 Yes Take by mouth daily. [facility] albuterol 1.25 mg/3 mL nebulizer solution 04-23 08:34: 43 Yes 1{ampul e} Use 1 Ampule as directed every 6 (six) hours as needed for Wheezing. [facility] ALPRAZolam 1 mg tablet 04-23 08:34: 43 Yes 1mg Take 1 mg by mouth 3 (three) times daily. [facility] omeprazole 40 mg capsule 0 04-23 08:34: 43 Yes 40mg Take 40 mg by mouth daily. [facility] loratadine 10 mg tablet 04-23 08:34: 43 Yes 10mg Take 10 mg by mouth daily. [facility] aspirin 81 mg chewable tablet 04-23 08:34: 43 Yes 81mg Take 81 mg by mouth daily. [facility] lisinopril 10 mg tablet 04-23 08:34: 43 Yes Take by mouth daily. [facility] albuterol 1.25 mg/3 mL nebulizer solution 04-23 08:34: 43 Yes 1{ampul e} Use 1 Ampule as directed every 6 (six) hours as needed for Wheezing. [facility] ALPRAZolam 1 mg tablet 04-23 08:34: 43 Yes 1mg Take 1 mg by mouth 3 (three) times daily. [facility] omeprazole 40 mg capsule 0 04-23 08:34: 43 Yes 40mg Take 40 mg by mouth daily. [facility] loratadine 10 mg tablet 0 04-23 08:34: 43 Yes 10mg Take 10 mg by mouth daily. [facility] aspirin 81 mg chewable tablet 0 04-23 08:34: 43 Yes 81mg Take 81 mg by mouth daily. [facility] lisinopril 10 mg tablet 0 04-23 08:34: 43 Yes Take by mouth daily. [facility] albuterol 1.25 mg/3 mL nebulizer solution 04-23 08:34: 43 Yes 1{ampul e} Use 1 Ampule as directed every 6 (six) hours as needed for Wheezing. [facility] ALPRAZolam 1 mg tablet 0 04-23 08:34: 43 Yes 1mg Take 1 mg by mouth 3 (three) times daily. [facility] omeprazole 40 mg capsule 0 04-23 08:34: 43 Yes 40mg Take 40 mg by mouth daily. [facility] loratadine 10 mg tablet 0 04-23 08:34: 43 Yes 10mg Take 10 mg by mouth daily. [facility] aspirin 81 mg chewable tablet 04-23 08:34: 43 Yes 81mg Take 81 mg by mouth daily. [facility] lisinopril 10 mg tablet 0 04-23 08:34: 43 Yes Take by mouth daily. [facility] albuterol 1.25 mg/3 mL nebulizer solution 04-23 08:34: 43 Yes 1{ampul e} Use 1 Ampule as directed every 6 (six) hours as needed for Wheezing. [facility] ALPRAZolam 1 mg tablet 04-23 08:34: 43 Yes 1mg Take 1 mg by mouth 3 (three) times daily. [facility] omeprazole 40 mg capsule 04-23 08:34: 43 Yes 40mg Take 40 mg by mouth daily. [facility] loratadine 10 mg tablet 0 04-23 08:34: 43 Yes 10mg Take 10 mg by mouth daily. [facility] aspirin 81 mg chewable tablet 0 04-23 08:34: 43 Yes 81mg Take 81 mg by mouth daily. [facility] lisinopril 10 mg tablet 0 04-23 08:34: 43 Yes Take by mouth daily. [facility] albuterol 1.25 mg/3 mL nebulizer solution 04-23 08:34: 43 Yes 1{ampul e} Use 1 Ampule as directed every 6 (six) hours as needed for Wheezing. [facility] ALPRAZolam 1 mg tablet 04-23 08:34: 43 Yes 1mg Take 1 mg by mouth 3 (three) times daily. [facility] omeprazole 40 mg capsule 04-23 08:34: 43 Yes 40mg Take 40 mg by mouth daily. [facility] loratadine 10 mg tablet 04-23 08:34: 43 Yes 10mg Take 10 mg by mouth daily. [facility] aspirin 81 mg chewable tablet 0 04-23 08:34: 43 Yes 81mg Take 81 mg by mouth daily. [facility] lisinopril 10 mg tablet 0 04-23 08:34: 43 Yes Take by mouth daily. [facility] albuterol 1.25 mg/3 mL nebulizer solution 04-23 08:34: 43 Yes 1{ampul e} Use 1 Ampule as directed every 6 (six) hours as needed for Wheezing. [facility] ALPRAZolam 1 mg tablet 04-23 08:34: 43 Yes 1mg Take 1 mg by mouth 3 (three) times daily. [facility] omeprazole 40 mg capsule 04-23 08:34: 43 Yes 40mg Take 40 mg by mouth daily. [facility] loratadine 10 mg tablet 04-23 08:34: 43 Yes 10mg Take 10 mg by mouth daily. [facility] aspirin 81 mg chewable tablet 0 04-23 08:34: 43 Yes 81mg Take 81 mg by mouth daily. [facility] lisinopril 10 mg tablet 0 04-23 08:34: 43 Yes Take by mouth daily. [facility] albuterol 1.25 mg/3 mL nebulizer solution 0 04-23 08:34: 43 Yes 1{ampul e} Use 1 Ampule as directed every 6 (six) hours as needed for Wheezing. [facility] ALPRAZolam 1 mg tablet 0 04-23 08:34: 43 Yes 1mg Take 1 mg by mouth 3 (three) times daily. [facility] omeprazole 40 mg capsule 04-23 08:34: 43 Yes 40mg Take 40 mg by mouth daily. [facility] loratadine 10 mg tablet 0 04-23 08:34: 43 Yes 10mg Take 10 mg by mouth daily. [facility] aspirin 81 mg chewable tablet 0 04-23 08:34: 43 Yes 81mg Take 81 mg by mouth daily. [facility] lisinopril 10 mg tablet 0 04-23 08:34: 43 Yes Take by mouth daily. [facility] albuterol 1.25 mg/3 mL nebulizer solution 04-23 08:34: 43 Yes 1{ampul e} Use 1 Ampule as directed every 6 (six) hours as needed for Wheezing. [facility] ALPRAZolam 1 mg tablet 04-23 08:34: 43 Yes 1mg Take 1 mg by mouth 3 (three) times daily. [facility] omeprazole 40 mg capsule 04-23 08:34: 43 Yes 40mg Take 40 mg by mouth daily. [facility] loratadine 10 mg tablet 04-23 08:34: 43 Yes 10mg Take 10 mg by mouth daily. [facility] aspirin 81 mg chewable tablet 04-23 08:34: 43 Yes 81mg Take 81 mg by mouth daily. [facility] lisinopril 10 mg tablet 0 04-23 08:34: 43 Yes Take by mouth daily. [facility] albuterol 1.25 mg/3 mL nebulizer solution 04-23 08:34: 43 Yes 1{ampul e} Use 1 Ampule as directed every 6 (six) hours as needed for Wheezing. [facility] ALPRAZolam 1 mg tablet 0 04-23 08:34: 43 Yes 1mg Take 1 mg by mouth 3 (three) times daily. [facility] omeprazole 40 mg capsule 04-23 08:34: 43 Yes 40mg Take 40 mg by mouth daily. [facility] loratadine 10 mg tablet 04-23 08:34: 43 Yes 10mg Take 10 mg by mouth daily. [facility] aspirin 81 mg chewable tablet 04-23 08:34: 43 Yes 81mg Take 81 mg by mouth daily. [facility] lisinopril 10 mg tablet 04-23 08:34: 43 Yes Take by mouth daily. [facility] albuterol 1.25 mg/3 mL nebulizer solution 04-23 08:34: 43 Yes 1{ampul e} Use 1 Ampule as directed every 6 (six) hours as needed for Wheezing. [facility] SYMBICORT 160-4.5 mcg/actuati on inhaler 04-21 00:00: 00 Yes 1{puff} Inhale 1 Puff in the morning. [facility] SYMBICORT 160-4.5 mcg/actuati on inhaler 04-21 00:00: 00 Yes 1{puff} Inhale 1 Puff in the morning. [facility] SYMBICORT 160-4.5 mcg/actuati on inhaler 04-21 00:00: 00 Yes 1{puff} Inhale 1 Puff in the morning. [facility] SYMBICORT 160-4.5 mcg/actuati on inhaler 04-21 00:00: 00 Yes 1{puff} Inhale 1 Puff in the morning. [facility] SYMBICORT 160-4.5 mcg/actuati on inhaler - 00:00: 00 Yes 1{puff} Inhale 1 Puff in the morning. [facility] SYMBICORT 160-4.5 mcg/actuati on inhaler - 00:00: 00 Yes 1{puff} Inhale 1 Puff in the morning. [facility] SYMBICORT 160-4.5 mcg/actuati on inhaler 2023-0 2-19 00:00: 00 Yes 1{puff} Inhale 1 Puff in the morning. [facility] SYMBICORT 160-4.5 mcg/actuati on inhaler 2023-0 2-19 00:00: 00 Yes 1{puff} Inhale 1 Puff in the morning. [facility] SYMBICORT 160-4.5 mcg/actuati on inhaler 3-0 2-19 00:00: 00 Yes 1{puff} Inhale 1 Puff in the morning. [facility] SYMBICORT 160-4.5 mcg/actuati on inhaler 3-0 2-19 00:00: 00 Yes 1{puff} Inhale 1 Puff in the morning. [facility] SYMBICORT 160-4.5 mcg/actuati on inhaler 3-0 2-19 00:00: 00 Yes 1{puff} Inhale 1 Puff in the morning. [facility] SYMBICORT 160-4.5 mcg/actuati on inhaler 3-0 2-19 00:00: 00 Yes 1{puff} Inhale 1 Puff in the morning. [facility] SYMBICORT 160-4.5 mcg/actuati on inhaler 2023-0 2-19 00:00: 00 Yes 1{puff} Inhale 1 Puff in the morning. [facility] SYMBICORT 160-4.5 mcg/actuati on inhaler 3-0 2-19 00:00: 00 Yes 1{puff} Inhale 1 Puff in the morning. [facility] SYMBICORT 160-4.5 mcg/actuati on inhaler 2023-0 2-19 00:00: 00 Yes 1{puff} Inhale 1 Puff in the morning. [facility] SYMBICORT 160-4.5 mcg/actuati on inhaler 2023-0 2-19 00:00: 00 Yes 1{puff} Inhale 1 Puff in the morning. [facility] SYMBICORT 160-4.5 mcg/actuati on inhaler 2023-0 2-19 00:00: 00 Yes 1{puff} Inhale 1 Puff in the morning. [facility] SYMBICORT 160-4.5 mcg/actuati on inhaler 2023-0 2-19 00:00: 00 Yes 1{puff} Inhale 1 Puff in the morning. [facility] SYMBICORT 160-4.5 mcg/actuati on inhaler 2023-0 2-19 00:00: 00 Yes 1{puff} Inhale 1 Puff in the morning. [facility] SYMBICORT 160-4.5 mcg/actuati on inhaler 2023-0 2-19 00:00: 00 Yes 1{puff} Inhale 1 Puff in the morning. [facility] SYMBICORT 160-4.5 mcg/actuati on inhaler 3-0 2-19 00:00: 00 Yes 1{puff} Inhale 1 Puff in the morning. [facility] SYMBICORT 160-4.5 mcg/actuati on inhaler 3-0 2-19 00:00: 00 Yes 1{puff} Inhale 1 Puff in the morning. [facility] SYMBICORT 160-4.5 mcg/actuati on inhaler 3-0 2-19 00:00: 00 Yes 1{puff} Inhale 1 Puff in the morning. [facility] SYMBICORT 160-4.5 mcg/actuati on inhaler 3-0 2-19 00:00: 00 Yes 1{puff} Inhale 1 Puff in the morning. [facility] SYMBICORT 160-4.5 mcg/actuati on inhaler 2023-0 2-19 00:00: 00 Yes 1{puff} Inhale 1 Puff in the morning. [facility] SYMBICORT 160-4.5 mcg/actuati on inhaler 2023-0 2-19 00:00: 00 Yes 1{puff} Inhale 1 Puff in the morning. [facility] SYMBICORT 160-4.5 mcg/actuati on inhaler 2023-0 2-19 00:00: 00 Yes 1{puff} Inhale 1 Puff in the morning. [facility] SYMBICORT 160-4.5 mcg/actuati on inhaler 3-0 2-19 00:00: 00 Yes 1{puff} Inhale 1 Puff in the morning. [facility] SYMBICORT 160-4.5 mcg/actuati on inhaler 3-0 2-19 00:00: 00 Yes 1{puff} Inhale 1 Puff in the morning. [facility] SYMBICORT 160-4.5 mcg/actuati on inhaler 3-0 2-19 00:00: 00 Yes 1{puff} Inhale 1 Puff in the morning. [facility] SYMBICORT 160-4.5 mcg/actuati on inhaler 3-0 2-19 00:00: 00 Yes 1{puff} Inhale 1 Puff in the morning. [facility] SYMBICORT 160-4.5 mcg/actuati on inhaler 2022-0 2-19 00:00: 00 Yes 1{puff} Inhale 1 Puff in the morning. [facility] SYMBICORT 160-4.5 mcg/actuati on inhaler 2022-0 2-19 00:00: 00 Yes 1{puff} Inhale 1 Puff in the morning. [facility] SYMBICORT 160-4.5 mcg/actuati on inhaler 3-0 2-19 00:00: 00 Yes 1{puff} Inhale 1 Puff in the morning. [facility] SYMBICORT 160-4.5 mcg/actuati on inhaler 3-0 2-19 00:00: 00 Yes 1{puff} Inhale 1 Puff in the morning. [facility] SYMBICORT 160-4.5 mcg/actuati on inhaler 3-0 2-19 00:00: 00 Yes 1{puff} Inhale 1 Puff in the morning. [facility] SYMBICORT 160-4.5 mcg/actuati on inhaler 3-0 2-19 00:00: 00 Yes 1{puff} Inhale 1 Puff in the morning. [facility] SYMBICORT 160-4.5 mcg/actuati on inhaler 0 2-19 00:00: 00 Yes 1{puff} Inhale 1 Puff in the morning. [facility] SYMBICORT 160-4.5 mcg/actuati on inhaler 0 2-19 00:00: 00 Yes 1{puff} Inhale 1 Puff in the morning. [facility] SYMBICORT 160-4.5 mcg/actuati on inhaler 0 2-19 00:00: 00 Yes 1{puff} Inhale 1 Puff in the morning. [facility] SYMBICORT 160-4.5 mcg/actuati on inhaler 0 2-19 00:00: 00 Yes 1{puff} Inhale 1 Puff in the morning. [facility] SYMBICORT 160-4.5 mcg/actuati on inhaler 0 2-19 00:00: 00 Yes 1{puff} Inhale 1 Puff in the morning. [facility] SYMBICORT 160-4.5 mcg/actuati on inhaler 0 2-19 00:00: 00 Yes 1{puff} Inhale 1 Puff in the morning. [facility] SYMBICORT 160-4.5 mcg/actuati on inhaler 0 2-19 00:00: 00 Yes 1{puff} Inhale 1 Puff in the morning. [facility] SYMBICORT 160-4.5 mcg/actuati on inhaler 0 2-19 00:00: 00 Yes 1{puff} Inhale 1 Puff in the morning. [facility] SYMBICORT 160-4.5 mcg/actuati on inhaler 0 2-19 00:00: 00 Yes 1{puff} Inhale 1 Puff in the morning. [facility] azithromyci n 250 mg tablet 2-17 00:00: 00 Yes 250mg Take 1 tablet by mouth in the morning. X 5 days [facility] azithromyci n 250 mg tablet 2022-0 2-17 00:00: 00 Yes 250mg Take 1 tablet by mouth in the morning. [facility] 2-17 00:00: 00 Yes 250mg Take 1 tablet by mouth in the morning. X 5 days [facility] azithromyci n 250 mg tablet 2022-0 2-17 00:00: 00 Yes 250mg Take 1 tablet by mouth in the morning. X 5 days [facility] azithromyci n 250 mg tablet 2022-0 2-17 00:00: 00 Yes 250mg Take 1 tablet by mouth in the morning. X 5 days [facility] azithromyci n 250 mg tablet 2022-0 2-17 00:00: 00 Yes 250mg Take 1 tablet by mouth in the morning. X 5 days [facility] azithromyci n 250 mg tablet 2022-0 2-17 00:00: 00 Yes 250mg Take 1 tablet by mouth in the morning. X 5 days [facility] azithromyci n 250 mg tablet 2022-0 2-17 00:00: 00 Yes 250mg Take 1 tablet by mouth in the morning. X 5 days [facility] azithromyci n 250 mg tablet 2022-0 2-17 00:00: 00 Yes 250mg Take 1 tablet by mouth in the morning. X 5 days [facility] azithromyci n 250 mg tablet 2022-0 2-17 00:00: 00 Yes 250mg Take 1 tablet by mouth in the morning. X 5 days [facility] azithromyci n 250 mg tablet 2022-0 2-17 00:00: 00 07-01 00:00 :00 No 250mg Take 1 tablet by mouth in the morning. X 5 days [facility] azithromyci n 250 mg tablet 2022-0 2-17 00:00: 00 07-01 00:00 :00 No 250mg Take 1 tablet by mouth in the morning. X 5 days [facility] celecoxib 100 mg capsule 2023-0 -19 00:00: 00 Yes TAKE ONE (1) CAPSULE(S) BY MOUTH TWICE A DAY WITH FOOD. [facility] gabapentin 600 mg tablet 2023-0 1-19 00:00: 00 Yes 600mg Take 600 mg by mouth 4 (four) times daily. [facility] celecoxib 100 mg capsule 2023-0 -19 00:00: 00 Yes TAKE ONE (1) CAPSULE(S) BY MOUTH TWICE A DAY WITH FOOD. [facility] gabapentin 600 mg tablet 2023-0 -19 00:00: 00 Yes 600mg Take 600 mg by mouth 4 (four) times daily. [facility] celecoxib 100 mg capsule 2023-0 -19 00:00: 00 Yes TAKE ONE (1) CAPSULE(S) BY MOUTH TWICE A DAY WITH FOOD. [facility] gabapentin 600 mg tablet 2023-0 -19 00:00: 00 Yes 600mg Take 600 mg by mouth 4 (four) times daily. [facility] celecoxib 100 mg capsule 2023-0 -19 00:00: 00 Yes TAKE ONE (1) CAPSULE(S) BY MOUTH TWICE A DAY WITH FOOD. [facility] gabapentin 600 mg tablet 3-0 -19 00:00: 00 Yes 600mg Take 600 mg by mouth 4 (four) times daily. [facility] celecoxib 100 mg capsule 2023-0 -19 00:00: 00 Yes TAKE ONE (1) CAPSULE(S) BY MOUTH TWICE A DAY WITH FOOD. [facility] gabapentin 600 mg tablet 2023-0 -19 00:00: 00 Yes 600mg Take 600 mg by mouth 4 (four) times daily. [facility] celecoxib 100 mg capsule 2023-0 -19 00:00: 00 Yes TAKE ONE (1) CAPSULE(S) BY MOUTH TWICE A DAY WITH FOOD. [facility] gabapentin 600 mg tablet 2023-0 1-19 00:00: 00 Yes 600mg Take 600 mg by mouth 4 (four) times daily. [facility] celecoxib 100 mg capsule 2023-0 -19 00:00: 00 Yes TAKE ONE (1) CAPSULE(S) BY MOUTH TWICE A DAY WITH FOOD. [facility] gabapentin 600 mg tablet 2023-0 19 00:00: 00 Yes 600mg Take 600 mg by mouth 4 (four) times daily. [facility] celecoxib 100 mg capsule 3-0 19 00:00: 00 Yes TAKE ONE (1) CAPSULE(S) BY MOUTH TWICE A DAY WITH FOOD. [facility] gabapentin 600 mg tablet 3-0 19 00:00: 00 Yes 600mg Take 600 mg by mouth 4 (four) times daily. [facility] celecoxib 100 mg capsule 3-0 03-21 00:00: 00 Yes TAKE ONE (1) CAPSULE(S) BY MOUTH TWICE A DAY WITH FOOD. [facility] gabapentin 600 mg tablet 3-0 03-21 00:00: 00 Yes 600mg Take 600 mg by mouth 4 (four) times daily. [facility] celecoxib 100 mg capsule 3-0 03-21 00:00: 00 Yes TAKE ONE (1) CAPSULE(S) BY MOUTH TWICE A DAY WITH FOOD. [facility] gabapentin 600 mg tablet 3-0 19 00:00: 00 Yes 600mg Take 600 mg by mouth 4 (four) times daily. [facility] gabapentin 600 mg tablet 3-0 19 00:00: 00 Yes 600mg Take 600 mg by mouth 4 (four) times daily. [facility] gabapentin 600 mg tablet 2023-0 -19 00:00: 00 Yes 600mg Take 600 mg by mouth 4 (four) times daily. [facility] gabapentin 600 mg tablet 2023-0 19 00:00: 00 Yes 600mg Take 600 mg by mouth 4 (four) times daily. [facility] gabapentin 600 mg tablet 2023-0 -19 00:00: 00 Yes 600mg Take 600 mg by mouth 4 (four) times daily. [facility] gabapentin 600 mg tablet 2023-0 -19 00:00: 00 Yes 600mg Take 600 mg by mouth 4 (four) times daily. [facility] gabapentin 600 mg tablet 2023-0 -19 00:00: 00 Yes 600mg Take 600 mg by mouth 4 (four) times daily. [facility] gabapentin 600 mg tablet 2023-0 -19 00:00: 00 Yes 600mg Take 600 mg by mouth 4 (four) times daily. [facility] gabapentin 600 mg tablet 2023-0 -19 00:00: 00 Yes 600mg Take 1 tablet by mouth 4 (four) times daily. [facility] gabapentin 600 mg tablet 2023-0 -19 00:00: 00 Yes 600mg Take 1 tablet by mouth 4 (four) times daily. [facility] gabapentin 600 mg tablet 3-0 -19 00:00: 00 Yes 600mg Take 1 tablet by mouth 4 (four) times daily. [facility] gabapentin 600 mg tablet 3-0 -19 00:00: 00 Yes 600mg Take 1 tablet by mouth 4 (four) times daily. [facility] gabapentin 600 mg tablet 2023-0 -19 00:00: 00 Yes 600mg Take 1 tablet by mouth 4 (four) times daily. [facility] gabapentin 600 mg tablet 3-0 19 00:00: 00 Yes 600mg Take 1 tablet by mouth 4 (four) times daily. [facility] gabapentin 600 mg tablet 3-0 -19 00:00: 00 Yes 600mg Take 1 tablet by mouth 4 (four) times daily. [facility] gabapentin 600 mg tablet 2023-0 -19 00:00: 00 Yes 600mg Take 1 tablet by mouth 4 (four) times daily. [facility] gabapentin 600 mg tablet 2023-0 -19 00:00: 00 Yes 600mg Take 1 tablet by mouth 4 (four) times daily. [facility] gabapentin 600 mg tablet 2023-0 -19 00:00: 00 Yes 600mg Take 1 tablet by mouth 4 (four) times daily. [facility] gabapentin 600 mg tablet 2023-0 -19 00:00: 00 Yes 600mg Take 1 tablet by mouth 4 (four) times daily. [facility] gabapentin 600 mg tablet 2023-0 -19 00:00: 00 Yes 600mg Take 1 tablet by mouth 4 (four) times daily. [facility] gabapentin 600 mg tablet 2023-0 1-19 00:00: 00 Yes 600mg Take 1 tablet by mouth 4 (four) times daily. [facility] gabapentin 600 mg tablet 2023-0 1-19 00:00: 00 Yes 600mg Take 1 tablet by mouth 4 (four) times daily. [facility] gabapentin 600 mg tablet 2023-0 -19 00:00: 00 Yes 600mg Take 1 tablet by mouth 4 (four) times daily. [facility] gabapentin 600 mg tablet 2023-0 -19 00:00: 00 Yes 600mg Take 1 tablet by mouth 4 (four) times daily. [facility] gabapentin 600 mg tablet 2023-0 -19 00:00: 00 Yes 600mg Take 1 tablet by mouth 4 (four) times daily. [facility] gabapentin 600 mg tablet 2023-0 -19 00:00: 00 Yes 600mg Take 1 tablet by mouth 4 (four) times daily. [facility] gabapentin 600 mg tablet 2023-0 -19 00:00: 00 Yes 600mg Take 1 tablet by mouth 4 (four) times daily. [facility] gabapentin 600 mg tablet 2023-0 -19 00:00: 00 Yes 600mg Take 1 tablet by mouth 4 (four) times daily. [facility] gabapentin 600 mg tablet 2023-0 -19 00:00: 00 Yes 600mg Take 1 tablet by mouth 4 (four) times daily. [facility] gabapentin 600 mg tablet 2023-0 -19 00:00: 00 Yes 600mg Take 1 tablet by mouth 4 (four) times daily. [facility] gabapentin 600 mg tablet 2023-0 -19 00:00: 00 Yes 600mg Take 1 tablet by mouth 4 (four) times daily. [facility] gabapentin 600 mg tablet 2023-0 1-19 00:00: 00 Yes 600mg Take 1 tablet by mouth 4 (four) times daily. [facility] gabapentin 600 mg tablet 2023-0 -19 00:00: 00 Yes 600mg Take 1 tablet by mouth 4 (four) times daily. [facility] gabapentin 600 mg tablet 2023-0 1-19 00:00: 00 Yes 600mg Take 1 tablet by mouth 4 (four) times daily. [facility] gabapentin 600 mg tablet 2023-0 1-19 00:00: 00 Yes 600mg Take 1 tablet by mouth 4 (four) times daily. [facility]0 1-19 00:00: 00 Yes 600mg Take 1 tablet by mouth 4 (four) times daily. [facility] gabapentin 600 mg tablet 2023-0 -19 00:00: 00 Yes 600mg Take 1 tablet by mouth 4 (four) times daily. [facility] gabapentin 600 mg tablet 2023-0 1-19 00:00: 00 Yes 600mg Take 1 tablet by mouth 4 (four) times daily. [facility] gabapentin 600 mg tablet 2023-0 -19 00:00: 00 Yes 600mg Take 1 tablet by mouth 4 (four) times daily. [facility] gabapentin 600 mg tablet 2023-0 -19 00:00: 00 Yes 600mg Take 1 tablet by mouth 4 (four) times daily. [facility] gabapentin 600 mg tablet 2023-0 -19 00:00: 00 Yes 600mg Take 1 tablet by mouth 4 (four) times daily. [facility] gabapentin 600 mg tablet 2023-0 -19 00:00: 00 Yes 600mg Take 1 tablet by mouth 4 (four) times daily. [facility] gabapentin 600 mg tablet 2023-0 1-19 00:00: 00 Yes 600mg Take 1 tablet by mouth 4 (four) times daily. [facility] gabapentin 600 mg tablet 2023-0 1-19 00:00: 00 Yes 600mg Take 1 tablet by mouth 4 (four) times daily. [facility] gabapentin 600 mg tablet 2023-0 1-19 00:00: 00 Yes 600mg Take 1 tablet by mouth 4 (four) times daily. [facility] gabapentin 600 mg tablet 2023-0 1-19 00:00: 00 Yes 600mg Take 1 tablet by mouth 4 (four) times daily. [facility] gabapentin 600 mg tablet 2023-0 -19 00:00: 00 Yes 600mg Take 1 tablet by mouth 4 (four) times daily. [facility] gabapentin 600 mg tablet 2023-0 -19 00:00: 00 Yes 600mg Take 1 tablet by mouth 4 (four) times daily. [facility] gabapentin 600 mg tablet 2023-0 -19 00:00: 00 Yes 600mg Take 1 tablet by mouth 4 (four) times daily. [facility] gabapentin 600 mg tablet 2023-0 -19 00:00: 00 Yes 600mg Take 1 tablet by mouth 4 (four) times daily. [facility] gabapentin 600 mg tablet 3-0 -19 00:00: 00 Yes 600mg Take 1 tablet by mouth 4 (four) times daily. [facility] gabapentin 600 mg tablet 3-0 -19 00:00: 00 Yes 600mg Take 1 tablet by mouth 4 (four) times daily. [facility] gabapentin 600 mg tablet 3-0 -19 00:00: 00 Yes 600mg Take 1 tablet by mouth 4 (four) times daily. [facility] gabapentin 600 mg tablet 3-0 19 00:00: 00 Yes 600mg Take 1 tablet by mouth 4 (four) times daily. [facility] celecoxib 100 mg capsule 2022-0 19 00:00: 00 2022- 03-08 00:00 :00 No TAKE ONE (1) CAPSULE(S) BY MOUTH TWICE A DAY WITH FOOD. [facility] triamcinolo ne 0.5 % cream 2022-0 -14 00:00: 00 Yes 1{appli cator} Apply 1 Applicator to area(s) as needed. [facility] triamcinolo ne 0.5 % cream 3-0 -14 00:00: 00 Yes 1{appli cator} Apply 1 Applicator to area(s) as needed. [facility] triamcinolo ne 0.5 % cream 3-0 -14 00:00: 00 Yes 1{appli cator} Apply 1 Applicator to area(s) as needed. [facility] 0 -14 00:00: 00 Yes 1{appli cator} Apply 1 Applicator to area(s) as needed. [facility] triamcinolo ne 0.5 % cream 0 -14 00:00: 00 Yes 1{appli cator} Apply 1 Applicator to area(s) as needed. [facility] cream 0 14 00:00: 00 Yes 1{appli cator} Apply 1 Applicator to area(s) as needed. [facility] cream 0 14 00:00: 00 Yes 1{appli cator} Apply 1 Applicator to area(s) as needed. [facility] cream 0 14 00:00: 00 Yes 1{appli cator} Apply 1 Applicator to area(s) as needed. [facility] cream 0 14 00:00: 00 Yes 1{appli cator} Apply 1 Applicator to area(s) as needed. [facility] cream 0 14 00:00: 00 Yes 1{appli cator} Apply 1 Applicator to area(s) as needed. [facility] cream 0 14 00:00: 00 07-01 00:00 :00 No 1{appli cator} Apply 1 Applicator to area(s) as needed. [facility] ne 0.5 % cream 0 14 00:00: 00 07-01 00:00 :00 No 1{appli cator} Apply 1 Applicator to area(s) as needed. [facility] DICLOFENAC 75 mg EC tablet 12 00:00: 00 Yes [id number] TAKE 1 TABLET BY MOUTH TWICE A DAY WITH MEALS [facility] DICLOFENAC 75 mg EC tablet 2021-0 12 00:00: 00 Yes [id number] TAKE 1 TABLET BY MOUTH TWICE A DAY [facility] tablet 2021-0 09-11 00:00: 00 Yes [id number] TAKE 1 TABLET BY MOUTH TWICE A [facility] tablet 2-0 09-11 00:00: 00 Yes [id number] TAKE 1 TABLET BY MOUTH TWICE A DAY WITH MEALS [facility] DICLOFENAC 75 mg EC tablet 2021-0 09-11 00:00: 00 Yes [id number] TAKE 1 TABLET BY MOUTH TWICE A DAY WITH MEALS [facility] DICLOFENAC 75 mg EC tablet 2021-0 09-11 00:00: 00 Yes [id number] TAKE 1 TABLET BY MOUTH TWICE A DAY WITH MEALS [facility] DICLOFENAC 75 mg EC tablet 2-0 09-11 00:00: 00 Yes [id number] TAKE 1 TABLET BY MOUTH TWICE A DAY WITH MEALS [facility] DICLOFENAC 75 mg EC tablet 2021-0 09-11 00:00: 00 Yes [id number] TAKE 1 TABLET BY MOUTH TWICE A DAY WITH MEALS [facility] DICLOFENAC 75 mg EC tablet 2021-0 09-11 00:00: 00 Yes [id number] TAKE 1 TABLET BY MOUTH TWICE A DAY WITH MEALS [facility] DICLOFENAC 75 mg EC tablet 2-0 09-11 00:00: 00 Yes [id number] TAKE 1 TABLET BY MOUTH TWICE A DAY WITH MEALS [facility] DICLOFENAC 75 mg EC tablet 2-0 09-11 00:00: 00 Yes [id number] TAKE 1 TABLET BY MOUTH TWICE A DAY WITH MEALS [facility] DICLOFENAC 75 mg EC tablet 2-0 09-11 00:00: 00 Yes [id number] TAKE 1 TABLET BY MOUTH TWICE A DAY WITH MEALS [facility] DICLOFENAC 75 mg EC tablet 2-0 12 00:00: 00 Yes [id number] TAKE 1 TABLET BY MOUTH TWICE A DAY WITH MEALS [facility] DICLOFENAC 75 mg EC tablet 09-11 00:00: 00 Yes [id number] TAKE 1 TABLET BY MOUTH TWICE A DAY WITH MEALS [facility] DICLOFENAC 75 mg EC tablet 09-11 00:00: 00 Yes [id number] TAKE 1 TABLET BY MOUTH TWICE A DAY WITH MEALS [facility] DICLOFENAC 75 mg EC tablet 09-11 00:00: 00 Yes [id number] TAKE 1 TABLET BY MOUTH TWICE A DAY WITH MEALS [facility] DICLOFENAC 75 mg EC tablet 09-11 00:00: 00 05-08 00:00 :00 No [id number] TAKE 1 TABLET BY MOUTH TWICE A DAY WITH MEALS [facility] diclofenac 75 mg EC tablet 07-23 00:00: 00 Yes [id number] 75mg Take 1 tablet by mouth 2 (two) times daily with meals. [facility] diclofenac 75 mg EC tablet 07-23 00:00: 00 09-11 00:00 :00 No [id number] 75mg Take 1 tablet by mouth 2 (two) times daily with meals. [facility] aspirin 81 mg chewable tablet 05-10 15:33: 56 Yes 81mg Take 81 mg by mouth daily. [facility] lisinopril 10 mg tablet 05-10 15:33: 56 Yes Take by mouth daily. [facility] albuterol 1.25 mg/3 mL nebulizer solution 05-10 15:33: 56 Yes 1{ampul e} Use 1 Ampule as directed every 6 (six) hours as needed for Wheezing. [facility] ALPRAZolam (XANAX) 1 mg tablet 05-10 15:33: 56 Yes 1mg Take 1 mg by mouth 3 (three) times daily. [facility] omeprazole 40 mg capsule 05-10 15:33: 56 Yes 40mg Take 40 mg by mouth daily. [facility] loratadine 10 mg tablet 05-10 15:33: 56 Yes 10mg Take 10 mg by mouth daily. [facility] aspirin 81 mg chewable tablet 2021-0 05-10 15:33: 56 Yes 81mg Take 81 mg by mouth daily. [facility] lisinopril 10 mg tablet 2021-0 05-10 15:33: 56 Yes Take by mouth daily. [facility] albuterol 1.25 mg/3 mL nebulizer solution 05-10 15:33: 56 Yes 1{ampul e} Use 1 Ampule as directed every 6 (six) hours as needed for Wheezing. [facility] ALPRAZolam (XANAX) 1 mg tablet 05-10 15:33: 56 Yes 1mg Take 1 mg by mouth 3 (three) times daily. [facility] omeprazole 40 mg capsule 05-10 15:33: 56 Yes 40mg Take 40 mg by mouth daily. [facility] loratadine 10 mg tablet 05-10 15:33: 56 Yes 10mg Take 10 mg by mouth daily. [facility] aspirin 81 mg chewable tablet 05-10 15:33: 56 Yes 81mg Take 81 mg by mouth daily. [facility] lisinopril 10 mg tablet 05-10 15:33: 56 Yes Take by mouth daily. [facility] albuterol 1.25 mg/3 mL nebulizer solution 05-10 15:33: 56 Yes 1{ampul e} Use 1 Ampule as directed every 6 (six) hours as needed for Wheezing. [facility] ALPRAZolam (XANAX) 1 mg tablet 05-10 15:33: 56 Yes 1mg Take 1 mg by mouth 3 (three) times daily. [facility] omeprazole 40 mg capsule 05-10 15:33: 56 Yes 40mg Take 40 mg by mouth daily. [facility] loratadine 10 mg tablet 2021-0 10 15:33: 56 Yes 10mg Take 10 mg by mouth daily. [facility] aspirin 81 mg chewable tablet 05-10 15:33: 56 Yes 81mg Take 81 mg by mouth daily. [facility] lisinopril 10 mg tablet 05-10 15:33: 56 Yes Take by mouth daily. [facility] albuterol 1.25 mg/3 mL nebulizer solution 05-10 15:33: 56 Yes 1{ampul e} Use 1 Ampule as directed every 6 (six) hours as needed for Wheezing. [facility] ALPRAZolam (XANAX) 1 mg tablet 05-10 15:33: 56 Yes 1mg Take 1 mg by mouth 3 (three) times daily. [facility] omeprazole 40 mg capsule 05-10 15:33: 56 Yes 40mg Take 40 mg by mouth daily. [facility] loratadine 10 mg tablet 05-10 15:33: 56 Yes 10mg Take 10 mg by mouth daily. [facility] aspirin 81 mg chewable tablet 05-10 15:33: 56 Yes 81mg Take 81 mg by mouth daily. [facility] lisinopril 10 mg tablet 05-10 15:33: 56 Yes Take by mouth daily. [facility] albuterol 1.25 mg/3 mL nebulizer solution 05-10 15:33: 56 Yes 1{ampul e} Use 1 Ampule as directed every 6 (six) hours as needed for Wheezing. [facility] ALPRAZolam (XANAX) 1 mg tablet 05-10 15:33: 56 Yes 1mg Take 1 mg by mouth 3 (three) times daily. [facility] omeprazole 40 mg capsule 05-10 15:33: 56 Yes 40mg Take 40 mg by mouth daily. [facility] loratadine 10 mg tablet 05-10 15:33: 56 Yes 10mg Take 10 mg by mouth daily. [facility] aspirin 81 mg chewable tablet 05-10 15:33: 56 Yes 81mg Take 81 mg by mouth daily. [facility] lisinopril 10 mg tablet 0 10 15:33: 56 Yes Take by mouth daily. [facility] albuterol 1.25 mg/3 mL nebulizer solution 05-10 15:33: 56 Yes 1{ampul e} Use 1 Ampule as directed every 6 (six) hours as needed for Wheezing. [facility] ALPRAZolam (XANAX) 1 mg tablet 10 15:33: 56 Yes 1mg Take 1 mg by mouth 3 (three) times daily. [facility] omeprazole 40 mg capsule 05-10 15:33: 56 Yes 40mg Take 40 mg by mouth daily. [facility] loratadine 10 mg tablet 05-10 15:33: 56 Yes 10mg Take 10 mg by mouth daily. [facility] aspirin 81 mg chewable tablet 05-10 15:33: 56 Yes 81mg Take 81 mg by mouth daily. [facility] lisinopril 10 mg tablet 2021-0 05-10 15:33: 56 Yes Take by mouth daily. [facility] albuterol 1.25 mg/3 mL nebulizer solution 05-10 15:33: 56 Yes 1{ampul e} Use 1 Ampule as directed every 6 (six) hours as needed for Wheezing. [facility] ALPRAZolam (XANAX) 1 mg tablet 05-10 15:33: 56 Yes 1mg Take 1 mg by mouth 3 (three) times daily. [facility] omeprazole 40 mg capsule 05-10 15:33: 56 Yes 40mg Take 40 mg by mouth daily. [facility] loratadine 10 mg tablet 2021-0 10 15:33: 56 Yes 10mg Take 10 mg by mouth daily. [facility] aspirin 81 mg chewable tablet 2021-0 10 15:33: 56 Yes 81mg Take 81 mg by mouth daily. [facility] lisinopril 10 mg tablet 2021-0 3-10 15:33: 56 Yes Take by mouth daily. [facility] albuterol 1.25 mg/3 mL nebulizer solution 05-10 15:33: 56 Yes 1{ampul e} Use 1 Ampule as directed every 6 (six) hours as needed for Wheezing. [facility] ALPRAZolam (XANAX) 1 mg tablet 05-10 15:33: 56 Yes 1mg Take 1 mg by mouth 3 (three) times daily. [facility] omeprazole 40 mg capsule 05-10 15:33: 56 Yes 40mg Take 40 mg by mouth daily. [facility] loratadine 10 mg tablet 05-10 15:33: 56 Yes 10mg Take 10 mg by mouth daily. [facility] aspirin 81 mg chewable tablet 05-10 15:33: 56 Yes 81mg Take 81 mg by mouth daily. [facility] lisinopril 10 mg tablet 05-10 15:33: 56 Yes Take by mouth daily. [facility] albuterol 1.25 mg/3 mL nebulizer solution 05-10 15:33: 56 Yes 1{ampul e} Use 1 Ampule as directed every 6 (six) hours as needed for Wheezing. [facility] ALPRAZolam (XANAX) 1 mg tablet 05-10 15:33: 56 Yes 1mg Take 1 mg by mouth 3 (three) times daily. [facility] omeprazole 40 mg capsule 05-10 15:33: 56 Yes 40mg Take 40 mg by mouth daily. [facility] loratadine 10 mg tablet 05-10 15:33: 56 Yes 10mg Take 10 mg by mouth daily. [facility] aspirin 81 mg chewable tablet 05-10 15:33: 56 Yes 81mg Take 81 mg by mouth daily. [facility] lisinopril 10 mg tablet 05-10 15:33: 56 Yes Take by mouth daily. [facility] albuterol 1.25 mg/3 mL nebulizer solution 05-10 15:33: 56 Yes 1{ampul e} Use 1 Ampule as directed every 6 (six) hours as needed for Wheezing. [facility] ALPRAZolam (XANAX) 1 mg tablet 05-10 15:33: 56 Yes 1mg Take 1 mg by mouth 3 (three) times daily. [facility] omeprazole 40 mg capsule 05-10 15:33: 56 Yes 40mg Take 40 mg by mouth daily. [facility] loratadine 10 mg tablet 05-10 15:33: 56 Yes 10mg Take 10 mg by mouth daily. [facility] diclofenac 75 mg EC tablet 04-11 00:00: 00 Yes 75mg Take 1 tablet by mouth 2 (two) times daily with meals. [facility] diclofenac 75 mg EC tablet 04-11 00:00: 00 Yes 75mg Take 1 tablet by mouth 2 (two) times daily with meals. [facility] diclofenac 75 mg EC tablet 04-11 00:00: 00 Yes 75mg Take 1 tablet by mouth 2 (two) times daily with meals. [facility] diclofenac 75 mg EC tablet 04-11 00:00: 00 Yes 75mg Take 1 tablet by mouth 2 (two) times daily with meals. [facility] diclofenac 75 mg EC tablet 04-11 00:00: 00 Yes 75mg Take 1 tablet by mouth 2 (two) times daily with meals. [facility] diclofenac 75 mg EC tablet 04-11 00:00: 00 Yes 75mg Take 1 tablet by mouth 2 (two) times daily with meals. [facility] diclofenac 75 mg EC tablet 04-11 00:00: 00 07-23 00:00 :00 No 75mg Take 1 tablet by mouth 2 (two) times daily with meals. [facility] atorvastati n 20 mg tablet 04-05 14:05: 25 Yes 20mg Take 20 mg by mouth daily. [facility] atorvastati n 20 mg tablet 04-05 14:05: 25 Yes 20mg Take 20 mg by mouth daily. [facility] atorvastati n 20 mg tablet 04-05 14:05: 25 Yes 20mg Take 20 mg by mouth daily. [facility] atorvastati n 20 mg tablet 04-05 14:05: 25 Yes 20mg Take 20 mg by mouth daily. [facility] atorvastati n 20 mg tablet 04-05 14:05: 25 Yes 20mg Take 20 mg by mouth daily. [facility] atorvastati n 20 mg tablet 04-05 14:05: 25 Yes 20mg Take 20 mg by mouth daily. [facility] atorvastati n 20 mg tablet 04-05 14:05: 25 Yes 20mg Take 20 mg by mouth daily. [facility] atorvastati n 20 mg tablet 04-05 14:05: 25 Yes 20mg Take 20 mg by mouth daily. [facility] atorvastati n 20 mg tablet 04-05 14:05: 25 Yes 20mg Take 20 mg by mouth daily. [facility] atorvastati n 20 mg tablet 04-05 14:05: 25 Yes 20mg Take 20 mg by mouth daily. [facility] atorvastati n 20 mg tablet 04-05 14:05: 25 Yes 20mg Take 20 mg by mouth daily. [facility] atorvastati n 20 mg tablet 04-05 14:05: 25 Yes 20mg Take 20 mg by mouth daily. [facility] atorvastati n 20 mg tablet 04-05 14:05: 25 Yes 20mg Take 20 mg by mouth daily. [facility] traMADoL 50 mg tablet 03-05 00:00: 00 Yes [id number] 50mg Take 1 tablet by mouth every 4 (four) hours as needed for Pain (scale 7-10). Indication s: acute pain [facility] traMADoL 50 mg tablet 03-05 00:00: 00 Yes [id number] 50mg Take 1 tablet by mouth every 4 (four) hours as needed for Pain (scale 7-10). Indication s: acute pain [facility] traMADoL 50 mg tablet 03-05 00:00: 00 Yes [id number] 50mg Take 1 tablet by mouth every 4 (four) hours as needed for Pain (scale 7-10). Indication s: acute pain [facility] traMADoL 50 mg tablet 03-05 00:00: 00 Yes [id number] 50mg Take 1 tablet by mouth every 4 (four) hours as needed for Pain (scale 7-10). Indication s: acute pain [facility] traMADoL 50 mg tablet 03-05 00:00: 00 Yes [id number] 50mg Take 1 tablet by mouth every 4 (four) hours as needed for Pain (scale 7-10). Indication s: acute pain [facility] traMADoL 50 mg tablet 03-05 00:00: 00 Yes [id number] 50mg Take 1 tablet by mouth every 4 (four) hours as needed for Pain (scale 7-10). Indication s: acute pain [facility] traMADoL 50 mg tablet 03-05 00:00: 00 Yes 4647 50mg Take 1 tablet by mouth every 4 (four) hours as needed for Pain (scale 7-10). Indication s: acute pain [facility] traMADoL 50 mg tablet 03-05 00:00: 00 Yes [id number] 50mg Take 1 tablet by mouth every 4 (four) hours as needed for Pain (scale 7-10). Indication s: acute pain [facility] traMADoL 50 mg tablet 03-05 00:00: 00 Yes [id number] 50mg Take 1 tablet by mouth every 4 (four) hours as needed for Pain (scale 7-10). Indication s: acute pain [facility] traMADoL 50 mg tablet 03-05 00:00: 00 Yes 4647 50mg Take 1 tablet by mouth every 4 (four) hours as needed for Pain (scale 7-10). Indication s: acute pain [facility] traMADoL 50 mg tablet 03-05 00:00: 00 Yes [id number] 50mg Take 1 tablet by mouth every 4 (four) hours as needed for Pain (scale 7-10). Indication s: acute pain [facility] traMADoL 50 mg tablet 03-05 00:00: 00 Yes [id number] 50mg Take 1 tablet by mouth every 4 (four) hours as needed for Pain (scale 7-10). Indication s: acute pain [facility] traMADoL 50 mg tablet 03-05 00:00: 00 Yes [id number] 50mg Take 1 tablet by mouth every 4 (four) hours as needed for Pain (scale 7-10). Indication s: acute pain [facility] traMADoL 50 mg tablet 03-05 00:00: 00 Yes [id number] 50mg Take 1 tablet by mouth every 4 (four) hours as needed for Pain (scale 7-10). Indication s: acute pain [facility] traMADoL 50 mg tablet 03-05 00:00: 00 Yes 4647 50mg Take 1 tablet by mouth every 4 (four) hours as needed for Pain (scale 7-10). Indication s: acute pain [facility] traMADoL 50 mg tablet 03-05 00:00: 00 Yes [id number] 50mg Take 1 tablet by mouth every 4 (four) hours as needed for Pain (scale 7-10). Indication s: acute pain [facility] traMADoL 50 mg tablet 03-05 00:00: 00 Yes 4647 50mg Take 1 tablet by mouth every 4 (four) hours as needed for Pain (scale 7-10). Indication s: acute pain [facility] traMADoL 50 mg tablet 0 03-05 00:00: 00 Yes 4647 50mg Take 1 tablet by mouth every 4 (four) hours as needed for Pain (scale 7-10). Indication s: acute pain [facility] traMADoL 50 mg tablet 03-05 00:00: 00 Yes 4647 50mg Take 1 tablet by mouth every 4 (four) hours as needed for Pain (scale 7-10). Indication s: acute pain [facility] traMADoL 50 mg tablet 03-05 00:00: 00 Yes 4647 50mg Take 1 tablet by mouth every 4 (four) hours as needed for Pain (scale 7-10). Indication s: acute pain [facility] traMADoL 50 mg tablet 03-05 00:00: 00 Yes 4647 50mg Take 1 tablet by mouth every 4 (four) hours as needed for Pain (scale 7-10). Indication s: acute pain [facility] traMADoL 50 mg tablet 03-05 00:00: 00 Yes 4647 50mg Take 1 tablet by mouth every 4 (four) hours as needed for Pain (scale 7-10). Indication s: acute pain [facility] traMADoL 50 mg tablet 03-05 00:00: 00 Yes 4647 50mg Take 1 tablet by mouth every 4 (four) hours as needed for Pain (scale 7-10). Indication s: acute pain [facility] traMADoL 50 mg tablet 03-05 00:00: 00 Yes 4647 50mg Take 1 tablet by mouth every 4 (four) hours as needed for Pain (scale 7-10). Indication s: acute pain [facility] traMADoL 50 mg tablet 03-05 00:00: 00 Yes 4647 50mg Take 1 tablet by mouth every 4 (four) hours as needed for Pain (scale 7-10). Indication s: acute pain [facility] traMADoL 50 mg tablet 03-05 00:00: 00 Yes 4647 50mg Take 1 tablet by mouth every 4 (four) hours as needed for Pain (scale 7-10). Indication s: acute pain [facility] traMADoL 50 mg tablet 03-05 00:00: 00 Yes 4647 50mg Take 1 tablet by mouth every 4 (four) hours as needed for Pain (scale 7-10). Indication s: acute pain [facility] traMADoL 50 mg tablet 03-05 00:00: 00 Yes 4647 50mg Take 1 tablet by mouth every 4 (four) hours as needed for Pain (scale 7-10). Indication s: acute pain [facility] traMADoL 50 mg tablet 03-05 00:00: 00 Yes 4647 50mg Take 1 tablet by mouth every 4 (four) hours as needed for Pain (scale 7-10). Indication s: acute pain [facility] traMADoL 50 mg tablet 03-05 00:00: 00 Yes 4647 50mg Take 1 tablet by mouth every 4 (four) hours as needed for Pain (scale 7-10). Indication s: acute pain [facility] traMADoL 50 mg tablet 03-05 00:00: 00 Yes 4647 50mg Take 1 tablet by mouth every 4 (four) hours as needed for Pain (scale 7-10). Indication s: acute pain [facility] traMADoL 50 mg tablet 03-05 00:00: 00 Yes 4647 50mg Take 1 tablet by mouth every 4 (four) hours as needed for Pain (scale 7-10). Indication s: acute pain [facility] traMADoL 50 mg tablet 03-05 00:00: 00 Yes 4647 50mg Take 1 tablet by mouth every 4 (four) hours as needed for Pain (scale 7-10). Indication s: acute pain [facility] traMADoL 50 mg tablet 03-05 00:00: 00 Yes 4647 50mg Take 1 tablet by mouth every 4 (four) hours as needed for Pain (scale 7-10). Indication s: acute pain [facility] traMADoL 50 mg tablet 03-05 00:00: 00 Yes 4647 50mg Take 1 tablet by mouth every 4 (four) hours as needed for Pain (scale 7-10). Indication s: acute pain [facility] traMADoL 50 mg tablet 0 03-05 00:00: 00 Yes [id number] 50mg Take 1 tablet by mouth every 4 (four) hours as needed for Pain (scale 7-10). Indication s: acute pain [facility] traMADoL 50 mg tablet 03-05 00:00: 00 Yes [id number] 50mg Take 1 tablet by mouth every 4 (four) hours as needed for Pain (scale 7-10). Indication s: acute pain [facility] traMADoL 50 mg tablet 03-05 00:00: 00 Yes [id number] 50mg Take 1 tablet by mouth every 4 (four) hours as needed for Pain (scale 7-10). Indication s: acute pain [facility] traMADoL 50 mg tablet 03-05 00:00: 00 Yes [id number] 50mg Take 1 tablet by mouth every 4 (four) hours as needed for Pain (scale 7-10). Indication s: acute pain [facility] traMADoL 50 mg tablet 03-05 00:00: 00 Yes [id number] 50mg Take 1 tablet by mouth every 4 (four) hours as needed for Pain (scale 7-10). Indication s: acute pain [facility] traMADoL 50 mg tablet 03-05 00:00: 00 07-01 00:00 :00 No [id number] 50mg Take 1 tablet by mouth every 4 (four) hours as needed for Pain (scale 7-10). Indication s: acute pain [facility] traMADoL 50 mg tablet 03-05 00:00: 00 07-01 00:00 :00 No 4647 50mg Take 1 tablet by mouth every 4 (four) hours as needed for Pain (scale 7-10). Indication s: acute pain [facility] traMADoL 50 mg tablet 07-27 00:00: 00 Yes 4647 50mg Take 1 tablet by mouth every 4 (four) hours as needed for Pain (scale 7-10). Indication s: acute pain [facility] traMADoL 50 mg tablet 07-27 00:00: 00 Yes 4647 50mg Take 1 tablet by mouth every 4 (four) hours as needed for Pain (scale 7-10). Indication s: acute pain [facility] traMADoL 50 mg tablet 07-27 00:00: 00 Yes 4647 50mg Take 1 tablet by mouth every 4 (four) hours as needed for Pain (scale 7-10). Indication s: acute pain [facility] traMADoL 50 mg tablet 07-27 00:00: 00 Yes 4647 50mg Take 1 tablet by mouth every 4 (four) hours as needed for Pain (scale 7-10). Indication s: acute pain [facility] traMADoL 50 mg tablet 07-27 00:00: 00 Yes 4647 50mg Take 1 tablet by mouth every 4 (four) hours as needed for Pain (scale 7-10). Indication s: acute pain [facility] traMADoL 50 mg tablet 07-27 00:00: 00 Yes 4647 50mg Take 1 tablet by mouth every 4 (four) hours as needed for Pain (scale 7-10). Indication s: acute pain [facility] traMADoL 50 mg tablet 07-27 00:00: 00 Yes 4647 50mg Take 1 tablet by mouth every 4 (four) hours as needed for Pain (scale 7-10). Indication s: acute pain [facility] traMADoL 50 mg tablet 07-27 00:00: 00 Yes 4647 50mg Take 1 tablet by mouth every 4 (four) hours as needed for Pain (scale 7-10). Indication s: acute pain [facility] traMADoL 50 mg tablet 07-27 00:00: 00 Yes 4647 50mg Take 1 tablet by mouth every 4 (four) hours as needed for Pain (scale 7-10). Indication s: acute pain [facility] traMADoL 50 mg tablet 07-27 00:00: 00 Yes 4647 50mg Take 1 tablet by mouth every 4 (four) hours as needed for Pain (scale 7-10). Indication s: acute pain [facility] traMADoL 50 mg tablet 07-27 00:00: 00 Yes 4647 50mg Take 1 tablet by mouth every 4 (four) hours as needed for Pain (scale 7-10). Indication s: acute pain [facility] traMADoL 50 mg tablet 07-27 00:00: 00 Yes 4647 50mg Take 1 tablet by mouth every 4 (four) hours as needed for Pain (scale 7-10). Indication s: acute pain [facility] traMADoL 50 mg tablet 07-27 00:00: 00 Yes 4647 50mg Take 1 tablet by mouth every 4 (four) hours as needed for Pain (scale 7-10). Indication s: acute pain [facility] traMADoL 50 mg tablet 07-27 00:00: 00 Yes 4647 50mg Take 1 tablet by mouth every 4 (four) hours as needed for Pain (scale 7-10). Indication s: acute pain [facility] traMADoL 50 mg tablet 07-27 00:00: 00 Yes 4647 50mg Take 1 tablet by mouth every 4 (four) hours as needed for Pain (scale 7-10). Indication s: acute pain [facility] traMADoL 50 mg tablet 07-27 00:00: 00 Yes 4647 50mg Take 1 tablet by mouth every 4 (four) hours as needed for Pain (scale 7-10). Indication s: acute pain [facility] traMADoL 50 mg tablet 07-27 00:00: 00 Yes 4647 50mg Take 1 tablet by mouth every 4 (four) hours as needed for Pain (scale 7-10). Indication s: acute pain [facility] traMADoL 50 mg tablet 07-27 00:00: 00 Yes 4647 50mg Take 1 tablet by mouth every 4 (four) hours as needed for Pain (scale 7-10). Indication s: acute pain [facility] traMADoL 50 mg tablet 07-27 00:00: 00 Yes 4647 50mg Take 1 tablet by mouth every 4 (four) hours as needed for Pain (scale 7-10). Indication s: acute pain [facility] traMADoL 50 mg tablet 07-27 00:00: 00 Yes 4647 50mg Take 1 tablet by mouth every 4 (four) hours as needed for Pain (scale 7-10). Indication s: acute pain [facility] traMADoL 50 mg tablet 07-27 00:00: 00 Yes 4647 50mg Take 1 tablet by mouth every 4 (four) hours as needed for Pain (scale 7-10). Indication s: acute pain [facility] traMADoL 50 mg tablet 07-27 00:00: 00 Yes 4647 50mg Take 1 tablet by mouth every 4 (four) hours as needed for Pain (scale 7-10). Indication s: acute pain [facility] traMADoL 50 mg tablet 07-27 00:00: 00 Yes 4647 50mg Take 1 tablet by mouth every 4 (four) hours as needed for Pain (scale 7-10). Indication s: acute pain [facility] traMADoL 50 mg tablet 07-27 00:00: 00 Yes 4647 50mg Take 1 tablet by mouth every 4 (four) hours as needed for Pain (scale 7-10). Indication s: acute pain [facility] traMADoL 50 mg tablet 07-27 00:00: 00 Yes 4647 50mg Take 1 tablet by mouth every 4 (four) hours as needed for Pain (scale 7-10). Indication s: acute pain [facility] traMADoL 50 mg tablet 07-27 00:00: 00 Yes 4647 50mg Take 1 tablet by mouth every 4 (four) hours as needed for Pain (scale 7-10). Indication s: acute pain [facility] traMADoL 50 mg tablet 07-27 00:00: 00 Yes 4647 50mg Take 1 tablet by mouth every 4 (four) hours as needed for Pain (scale 7-10). Indication s: acute pain [facility] traMADoL 50 mg tablet 07-27 00:00: 00 Yes 4647 50mg Take 1 tablet by mouth every 4 (four) hours as needed for Pain (scale 7-10). Indication s: acute pain [facility] traMADoL 50 mg tablet 07-27 00:00: 00 Yes 4647 50mg Take 1 tablet by mouth every 4 (four) hours as needed for Pain (scale 7-10). Indication s: acute pain [facility] traMADoL 50 mg tablet 07-27 00:00: 00 Yes 4647 50mg Take 1 tablet by mouth every 4 (four) hours as needed for Pain (scale 7-10). Indication s: acute pain [facility] traMADoL 50 mg tablet 07-27 00:00: 00 Yes 4647 50mg Take 1 tablet by mouth every 4 (four) hours as needed for Pain (scale 7-10). Indication s: acute pain [facility] traMADoL 50 mg tablet 07-27 00:00: 00 Yes 4647 50mg Take 1 tablet by mouth every 4 (four) hours as needed for Pain (scale 7-10). Indication s: acute pain [facility] traMADoL 50 mg tablet 07-27 00:00: 00 Yes 4647 50mg Take 1 tablet by mouth every 4 (four) hours as needed for Pain (scale 7-10). Indication s: acute pain [facility] traMADoL 50 mg tablet 07-27 00:00: 00 Yes 4647 50mg Take 1 tablet by mouth every 4 (four) hours as needed for Pain (scale 7-10). Indication s: acute pain [facility] traMADoL 50 mg tablet 07-27 00:00: 00 Yes 4647 50mg Take 1 tablet by mouth every 4 (four) hours as needed for Pain (scale 7-10). Indication s: acute pain [facility] traMADoL 50 mg tablet 07-27 00:00: 00 Yes 4647 50mg Take 1 tablet by mouth every 4 (four) hours as needed for Pain (scale 7-10). Indication s: acute pain [facility] traMADoL 50 mg tablet 07-27 00:00: 00 Yes 4647 50mg Take 1 tablet by mouth every 4 (four) hours as needed for Pain (scale 7-10). Indication s: acute pain [facility] traMADoL 50 mg tablet 07-27 00:00: 00 Yes 4647 50mg Take 1 tablet by mouth every 4 (four) hours as needed for Pain (scale 7-10). Indication s: acute pain [facility] traMADoL 50 mg tablet 07-27 00:00: 00 Yes 4647 50mg Take 1 tablet by mouth every 4 (four) hours as needed for Pain (scale 7-10). Indication s: acute pain [facility] traMADoL 50 mg tablet 07-27 00:00: 00 Yes 4647 50mg Take 1 tablet by mouth every 4 (four) hours as needed for Pain (scale 7-10). Indication s: acute pain [facility] traMADoL 50 mg tablet 07-27 00:00: 00 07-01 00:00 :00 No 4647 50mg Take 1 tablet by mouth every 4 (four) hours as needed for Pain (scale 7-10). Indication s: acute pain [facility] traMADoL 50 mg tablet 07-27 00:00: 00 07-01 00:00 :00 No 4647 50mg Take 1 tablet by mouth every 4 (four) hours as needed for Pain (scale 7-10). Indication s: acute pain [facility] busPIRone (BUSPAR) 10 MG tablet 05-24 13:54: 49 Yes buspirone 10 mg tablet [facility] aspirin 81 mg chewable tablet 05-24 13:54: 49 Yes 81mg Chew 81 mg. [facility] gabapentin (NEURONTIN) 300 mg capsule 05-24 13:54: 49 Yes gabapentin 300 mg capsule [facility] ALPRAZolam (XANAX) 0.25 MG tablet 05-24 13:54: 49 Yes alprazolam 0.25 mg tablet [facility] amLODIPine (NORVASC) 10 mg tablet 05-24 13:54: 49 Yes amlodipine 10 mg tablet [facility] albuterol (PROAIR HFA) 90 mcg/actuati on inhaler 05-24 13:54: 49 Yes albuterol sulfate HFA 90 mcg/actuat ion aerosol inhaler [facility] budesonide- formoteroL (Symbicort) 160-4.5 mcg/actuati on inhaler 05-24 13:54: 49 Yes Symbicort 160 mcg-4.5 mcg/actuat ion HFA aerosol inhaler [facility] predniSONE (DELTASONE) 10 mg tablet 05-24 13:54: 49 Yes prednisone 10 mg tablet [facility] lisinopriL (PRINIVIL) 10 mg tablet 05-24 13:54: 49 Yes lisinopril [address] ipratropium -albuteroL (DUO-NEB) 0.5-2.5 mg/3 mL nebulizer 05-24 13:54: 49 Yes ipratropiu m 0.5 mg-albuter ol 3 mg (2.5 mg base)/3 mL nebulizati on soln [facility] diclofenac (VOLTAREN) 75 MG EC tablet 05-24 13:54: 49 Yes diclofenac sodium 75 mg tablet,del ayed release [facility] busPIRone (BUSPAR) 10 MG tablet 05-24 13:54: 49 Yes buspirone 10 mg tablet [facility] budesonide- formoteroL (Symbicort) 160-4.5 mcg/actuati on inhaler 05-24 13:54: 49 Yes Symbicort 160 mcg-4.5 mcg/actuat ion HFA aerosol inhaler [facility] atorvastati n (LIPITOR) 20 MG tablet 05-24 13:54: 49 Yes 20mg Take 20 mg by mouth. [facility] aspirin 81 mg chewable tablet 05-24 13:54: 49 Yes 81mg Chew 81 mg. [facility] gabapentin (NEURONTIN) 300 mg capsule 05-24 13:54: 49 Yes gabapentin 300 mg capsule [facility] atorvastati n (LIPITOR) 20 MG tablet 05-24 13:54: 49 Yes 20mg Take 20 mg by mouth. [facility] ALPRAZolam (XANAX) 0.25 MG tablet 05-24 13:54: 49 Yes alprazolam 0.25 mg tablet [facility] amLODIPine (NORVASC) 10 mg tablet 05-24 13:54: 49 Yes amlodipine 10 mg tablet [facility] albuterol (PROAIR HFA) 90 mcg/actuati on inhaler 05-24 13:54: 49 Yes albuterol sulfate HFA 90 mcg/actuat ion aerosol inhaler [facility] aspirin 81 mg chewable tablet 05-24 13:54: 49 Yes 81mg Chew 81 mg. [facility] predniSONE (DELTASONE) 10 mg tablet 05-24 13:54: 49 Yes prednisone 10 mg tablet [facility] lisinopriL (PRINIVIL) 10 mg tablet 05-24 13:54: 49 Yes lisinopril 10 mg tablet [facility] ipratropium -albuteroL (DUO-NEB) 0.5-2.5 mg/3 mL nebulizer 05-24 13:54: 49 Yes ipratropiu m 0.5 mg-albuter ol 3 mg (2.5 mg base)/3 mL nebulizati on soln [facility] diclofenac (VOLTAREN) 75 MG EC tablet 05-24 13:54: 49 Yes diclofenac sodium 75 mg tablet,del ayed release [facility] busPIRone (BUSPAR) 10 MG tablet 05-24 13:54: 49 Yes buspirone 10 mg tablet [facility] budesonide- formoteroL (Symbicort) 160-4.5 mcg/actuati on inhaler 05-24 13:54: 49 Yes Symbicort 160 mcg-4.5 mcg/actuat ion HFA aerosol inhaler [facility] atorvastati n (LIPITOR) 20 MG tablet 05-24 13:54: 49 Yes 20mg Take 20 mg by mouth. [facility] gabapentin (NEURONTIN) 300 mg capsule 05-24 13:54: 49 Yes gabapentin 300 mg capsule [facility] aspirin 81 mg chewable tablet 05-24 13:54: 49 Yes 81mg Chew 81 mg. [facility] gabapentin (NEURONTIN) 300 mg capsule 05-24 13:54: 49 Yes gabapentin 300 mg capsule [facility] ALPRAZolam (XANAX) 0.25 MG tablet 05-24 13:54: 49 Yes alprazolam 0.25 mg tablet [facility] amLODIPine (NORVASC) 10 mg tablet 05-24 13:54: 49 Yes amlodipine 10 mg tablet [facility] albuterol (PROAIR HFA) 90 mcg/actuati on inhaler 05-24 13:54: 49 Yes albuterol sulfate HFA 90 mcg/actuat ion aerosol inhaler [facility] ALPRAZolam (XANAX) 0.25 MG tablet 05-24 13:54: 49 Yes alprazolam 0.[address] [facility] predniSONE (DELTASONE) 10 mg tablet 05-24 13:54: 49 Yes prednisone 10 mg tablet [facility] lisinopriL (PRINIVIL) 10 mg tablet 05-24 13:54: 49 Yes lisinopril 10 mg tablet [facility] ipratropium -albuteroL (DUO-NEB) 0.5-2.5 mg/3 mL nebulizer 05-24 13:54: 49 Yes ipratropiu m 0.5 mg-albuter ol 3 mg (2.5 mg base)/3 mL nebulizati on soln [facility] diclofenac (VOLTAREN) 75 MG EC tablet 05-24 13:54: 49 Yes diclofenac sodium 75 mg tablet,del ayed release [facility] busPIRone (BUSPAR) 10 MG tablet 05-24 13:54: 49 Yes buspirone [address] amLODIPine (NORVASC) 10 mg tablet 05-24 13:54: 49 Yes amlodipine 10 mg tablet [facility] budesonide- formoteroL (Symbicort) 160-4.5 mcg/actuati on inhaler 05-24 13:54: 49 Yes Symbicort 160 mcg-4.5 mcg/actuat ion HFA aerosol inhaler [facility] atorvastati n (LIPITOR) 20 MG tablet 05-24 13:54: 49 Yes 20mg Take 20 mg by mouth. [facility] aspirin 81 mg chewable tablet 05-24 13:54: 49 Yes 81mg Chew [address] [facility] gabapentin (NEURONTIN) 300 mg capsule 05-24 13:54: 49 Yes gabapentin [address] [facility] ALPRAZolam (XANAX) 0.25 MG tablet 05-24 13:54: 49 Yes alprazolam 0.[address] [facility] amLODIPine (NORVASC) 10 mg tablet 05-24 13:54: 49 Yes amlodipine [address] albuterol (PROAIR HFA) 90 mcg/actuati on inhaler 05-24 13:54: 49 Yes albuterol sulfate HFA 90 mcg/actuat ion aerosol inhaler [facility] albuterol (PROAIR HFA) 90 mcg/actuati on inhaler 05-24 13:54: 49 Yes albuterol sulfate HFA 90 mcg/actuat ion aerosol inhaler [facility] predniSONE (DELTASONE) 10 mg tablet 05-24 13:54: 49 Yes prednisone [address] [facility] lisinopriL (PRINIVIL) 10 mg tablet 05-24 13:54: 49 Yes lisinopril [address] [facility] ipratropium -albuteroL (DUO-NEB) 0.5-2.5 mg/3 mL nebulizer 05-24 13:54: 49 Yes ipratropiu m 0.5 mg-albuter ol 3 mg (2.5 mg base)/3 mL nebulizati on soln [facility] diclofenac (VOLTAREN) 75 MG EC tablet 05-24 13:54: 49 Yes diclofenac sodium 75 mg tablet,del ayed release [facility] busPIRone (BUSPAR) 10 MG tablet 05-24 13:54: 49 Yes buspirone [address] budesonide- formoteroL (Symbicort) 160-4.5 mcg/actuati on inhaler 05-24 13:54: 49 Yes Symbicort 160 mcg-4.5 mcg/actuat ion HFA aerosol inhaler [facility] atorvastati n (LIPITOR) 20 MG tablet 05-24 13:54: 49 Yes 20mg Take 20 mg by mouth. [facility] aspirin 81 mg chewable tablet 05-24 13:54: 49 Yes 81mg Chew 81 mg. [facility] gabapentin (NEURONTIN) 300 mg capsule 05-24 13:54: 49 Yes gabapentin 300 mg capsule [facility] ALPRAZolam (XANAX) 0.25 MG tablet 05-24 13:54: 49 Yes alprazolam 0.25 mg tablet [facility] amLODIPine (NORVASC) 10 mg tablet 05-24 13:54: 49 Yes amlodipine 10 mg tablet [facility] albuterol (PROAIR HFA) 90 mcg/actuati on inhaler 05-24 13:54: 49 Yes albuterol sulfate HFA 90 mcg/actuat ion aerosol inhaler [facility] predniSONE (DELTASONE) 10 mg tablet 05-24 13:54: 49 Yes prednisone 10 mg tablet [facility] lisinopriL (PRINIVIL) 10 mg tablet 05-24 13:54: 49 Yes lisinopril 10 mg tablet [facility] ipratropium -albuteroL (DUO-NEB) 0.5-2.5 mg/3 mL nebulizer 05-24 13:54: 49 Yes ipratropiu m 0.5 mg-albuter ol 3 mg (2.5 mg base)/3 mL nebulizati on soln [facility] diclofenac (VOLTAREN) 75 MG EC tablet 05-24 13:54: 49 Yes diclofenac sodium 75 mg tablet,del ayed release [facility] busPIRone (BUSPAR) 10 MG tablet 05-24 13:54: 49 Yes buspirone 10 mg tablet [facility] budesonide- formoteroL (Symbicort) 160-4.5 mcg/actuati on inhaler 05-24 13:54: 49 Yes Symbicort 160 mcg-4.5 mcg/actuat ion HFA aerosol inhaler [facility] atorvastati n (LIPITOR) 20 MG tablet 05-24 13:54: 49 Yes 20mg Take 20 mg by mouth. [facility] aspirin 81 mg chewable tablet 05-24 13:54: 49 Yes 81mg Chew 81 mg. [facility] gabapentin (NEURONTIN) 300 mg capsule 05-24 13:54: 49 Yes gabapentin 300 mg capsule [facility] ALPRAZolam (XANAX) 0.25 MG tablet 05-24 13:54: 49 Yes alprazolam 0.25 mg tablet [facility] amLODIPine (NORVASC) 10 mg tablet 05-24 13:54: 49 Yes amlodipine 10 mg tablet [facility] albuterol (PROAIR HFA) 90 mcg/actuati on inhaler 05-24 13:54: 49 Yes albuterol sulfate HFA 90 mcg/actuat ion aerosol inhaler [facility] predniSONE (DELTASONE) 10 mg tablet 05-24 13:54: 49 Yes prednisone 10 mg tablet [facility] lisinopriL (PRINIVIL) 10 mg tablet 05-24 13:54: 49 Yes lisinopril 10 mg tablet [facility] ipratropium -albuteroL (DUO-NEB) 0.5-2.5 mg/3 mL nebulizer 05-24 13:54: 49 Yes ipratropiu m 0.5 mg-albuter ol 3 mg (2.5 mg base)/3 mL nebulizati on soln [facility] diclofenac (VOLTAREN) 75 MG EC tablet 05-24 13:54: 49 Yes diclofenac sodium 75 mg tablet,del ayed release [facility] busPIRone (BUSPAR) 10 MG tablet 05-24 13:54: 49 Yes buspirone 10 mg tablet [facility] budesonide- formoteroL (Symbicort) 160-4.5 mcg/actuati on inhaler 05-24 13:54: 49 Yes Symbicort 160 mcg-4.5 mcg/actuat ion HFA aerosol inhaler [facility] atorvastati n (LIPITOR) 20 MG tablet 05-24 13:54: 49 Yes 20mg Take 20 mg by mouth. [facility] aspirin 81 mg chewable tablet 05-24 13:54: 49 Yes 81mg Chew 81 mg. [facility] gabapentin (NEURONTIN) 300 mg capsule 05-24 13:54: 49 Yes gabapentin 300 mg capsule [facility] ALPRAZolam (XANAX) 0.25 MG tablet 05-24 13:54: 49 Yes alprazolam 0.25 mg tablet [facility] amLODIPine (NORVASC) 10 mg tablet 05-24 13:54: 49 Yes amlodipine 10 mg tablet [facility] albuterol (PROAIR HFA) 90 mcg/actuati on inhaler 05-24 13:54: 49 Yes albuterol sulfate HFA 90 mcg/actuat ion aerosol inhaler [facility] predniSONE (DELTASONE) 10 mg tablet 05-24 13:54: 49 Yes prednisone 10 mg tablet [facility] lisinopriL (PRINIVIL) 10 mg tablet 05-24 13:54: 49 Yes lisinopril 10 mg tablet [facility] ipratropium -albuteroL (DUO-NEB) 0.5-2.5 mg/3 mL nebulizer 05-24 13:54: 49 Yes ipratropiu m 0.5 mg-albuter ol 3 mg (2.5 mg base)/3 mL nebulizati on soln [facility] diclofenac (VOLTAREN) 75 MG EC tablet 05-24 13:54: 49 Yes diclofenac sodium 75 mg tablet,del ayed release [facility] busPIRone (BUSPAR) 10 MG tablet 05-24 13:54: 49 Yes buspirone 10 mg tablet [facility] budesonide- formoteroL (Symbicort) 160-4.5 mcg/actuati on inhaler 05-24 13:54: 49 Yes Symbicort 160 mcg-4.5 mcg/actuat ion HFA aerosol inhaler [facility] atorvastati n (LIPITOR) 20 MG tablet 05-24 13:54: 49 Yes 20mg Take 20 mg by mouth. [facility] aspirin 81 mg chewable tablet 05-24 13:54: 49 Yes 81mg Chew 81 mg. [facility] gabapentin (NEURONTIN) 300 mg capsule 05-24 13:54: 49 Yes gabapentin 300 mg capsule [facility] ALPRAZolam (XANAX) 0.25 MG tablet 05-24 13:54: 49 Yes alprazolam 0.25 mg tablet [facility] amLODIPine (NORVASC) 10 mg tablet 05-24 13:54: 49 Yes amlodipine 10 mg tablet [facility] albuterol (PROAIR HFA) 90 mcg/actuati on inhaler 05-24 13:54: 49 Yes albuterol sulfate HFA 90 mcg/actuat ion aerosol inhaler [facility] predniSONE (DELTASONE) 10 mg tablet 05-24 13:54: 49 Yes prednisone 10 mg tablet [facility] lisinopriL (PRINIVIL) 10 mg tablet 05-24 13:54: 49 Yes lisinopril 10 mg tablet [facility] ipratropium -albuteroL (DUO-NEB) 0.5-2.5 mg/3 mL nebulizer 05-24 13:54: 49 Yes ipratropiu m 0.5 mg-albuter ol 3 mg (2.5 mg base)/3 mL nebulizati on soln [facility] diclofenac (VOLTAREN) 75 MG EC tablet 05-24 13:54: 49 Yes diclofenac sodium 75 mg tablet,del ayed release [facility] busPIRone (BUSPAR) 10 MG tablet 05-24 13:54: 49 Yes buspirone 10 mg tablet [facility] budesonide- formoteroL (Symbicort) 160-4.5 mcg/actuati on inhaler 05-24 13:54: 49 Yes Symbicort 160 mcg-4.5 mcg/actuat ion HFA aerosol inhaler [facility] atorvastati n (LIPITOR) 20 MG tablet 05-24 13:54: 49 Yes 20mg Take 20 mg by mouth. [facility] aspirin 81 mg chewable tablet 05-24 13:54: 49 Yes 81mg Chew 81 mg. [facility] gabapentin (NEURONTIN) 300 mg capsule 05-24 13:54: 49 Yes gabapentin 300 mg capsule [facility] ALPRAZolam (XANAX) 0.25 MG tablet 05-24 13:54: 49 Yes alprazolam 0.25 mg tablet [facility] amLODIPine (NORVASC) 10 mg tablet 05-24 13:54: 49 Yes amlodipine 10 mg tablet [facility] albuterol (PROAIR HFA) 90 mcg/actuati on inhaler 05-24 13:54: 49 Yes albuterol sulfate HFA 90 mcg/actuat ion aerosol inhaler [facility] predniSONE (DELTASONE) 10 mg tablet 05-24 13:54: 49 Yes prednisone 10 mg tablet [facility] lisinopriL (PRINIVIL) 10 mg tablet 05-24 13:54: 49 Yes lisinopril 10 mg tablet [facility] ipratropium -albuteroL (DUO-NEB) 0.5-2.5 mg/3 mL nebulizer 05-24 13:54: 49 Yes ipratropiu m 0.5 mg-albuter ol 3 mg (2.5 mg base)/3 mL nebulizati on soln [facility] diclofenac (VOLTAREN) 75 MG EC tablet 05-24 13:54: 49 Yes diclofenac sodium 75 mg tablet,del ayed release [facility] busPIRone (BUSPAR) 10 MG tablet 05-24 13:54: 49 Yes buspirone 10 mg tablet [facility] budesonide- formoteroL (Symbicort) 160-4.5 mcg/actuati on inhaler 05-24 13:54: 49 Yes Symbicort 160 mcg-4.5 mcg/actuat ion HFA aerosol inhaler [facility] atorvastati n (LIPITOR) 20 MG tablet 05-24 13:54: 49 Yes 20mg Take 20 mg by mouth. [facility] aspirin 81 mg chewable tablet 05-24 13:54: 49 Yes 81mg Chew 81 mg. [facility] predniSONE (DELTASONE) 10 mg tablet 05-24 13:54: 49 Yes prednisone 10 mg tablet [facility] gabapentin (NEURONTIN) 300 mg capsule 05-24 13:54: 49 Yes gabapentin 300 mg capsule [facility] ALPRAZolam (XANAX) 0.25 MG tablet 05-24 13:54: 49 Yes alprazolam 0.25 mg tablet [facility] amLODIPine (NORVASC) 10 mg tablet 05-24 13:54: 49 Yes amlodipine 10 mg tablet [facility] albuterol (PROAIR HFA) 90 mcg/actuati on inhaler 05-24 13:54: 49 Yes albuterol sulfate HFA 90 mcg/actuat ion aerosol inhaler [facility] lisinopriL (PRINIVIL) 10 mg tablet 05-24 13:54: 49 Yes lisinopril 10 mg tablet [facility] predniSONE (DELTASONE) 10 mg tablet 05-24 13:54: 49 Yes prednisone 10 mg tablet [facility] lisinopriL (PRINIVIL) 10 mg tablet 05-24 13:54: 49 Yes lisinopril 10 mg tablet [facility] ipratropium -albuteroL (DUO-NEB) 0.5-2.5 mg/3 mL nebulizer 05-24 13:54: 49 Yes ipratropiu m 0.5 mg-albuter ol 3 mg (2.5 mg base)/3 mL nebulizati on soln [facility] diclofenac (VOLTAREN) 75 MG EC tablet 05-24 13:54: 49 Yes diclofenac sodium 75 mg tablet,del ayed release [facility] busPIRone (BUSPAR) 10 MG tablet 05-24 13:54: 49 Yes buspirone 10 mg tablet [facility] budesonide- formoteroL (Symbicort) 160-4.5 mcg/actuati on inhaler 05-24 13:54: 49 Yes Symbicort 160 mcg-4.5 mcg/actuat ion HFA aerosol inhaler [facility] atorvastati n (LIPITOR) 20 MG tablet 05-24 13:54: 49 Yes 20mg Take 20 mg by mouth. [facility] aspirin 81 mg chewable tablet 05-24 13:54: 49 Yes 81mg Chew 81 mg. [facility] ipratropium -albuteroL (DUO-NEB) 0.5-2.5 mg/3 mL nebulizer 05-24 13:54: 49 Yes ipratropiu m 0.5 mg-albuter ol 3 mg (2.5 mg base)/3 mL nebulizati on soln [facility] gabapentin (NEURONTIN) 300 mg capsule 05-24 13:54: 49 Yes gabapentin 300 mg capsule [facility] ALPRAZolam (XANAX) 0.25 MG tablet 05-24 13:54: 49 Yes alprazolam 0.25 mg tablet [facility] amLODIPine (NORVASC) 10 mg tablet 05-24 13:54: 49 Yes amlodipine 10 mg tablet [facility] albuterol (PROAIR HFA) 90 mcg/actuati on inhaler 05-24 13:54: 49 Yes albuterol sulfate HFA 90 mcg/actuat ion aerosol inhaler [facility] diclofenac (VOLTAREN) 75 MG EC tablet 05-24 13:54: 49 Yes diclofenac sodium 75 mg tablet,del ayed release [facility] predniSONE (DELTASONE) 10 mg tablet 05-24 13:54: 49 Yes prednisone 10 mg tablet [facility] lisinopriL (PRINIVIL) 10 mg tablet 05-24 13:54: 49 Yes lisinopril 10 mg tablet [facility] ipratropium -albuteroL (DUO-NEB) 0.5-2.5 mg/3 mL nebulizer 05-24 13:54: 49 Yes ipratropiu m 0.5 mg-albuter ol 3 mg (2.5 mg base)/3 mL nebulizati on soln [facility] diclofenac (VOLTAREN) 75 MG EC tablet 05-24 13:54: 49 Yes diclofenac sodium 75 mg tablet,del ayed release [facility] busPIRone (BUSPAR) 10 MG tablet 05-24 13:54: 49 Yes buspirone 10 mg tablet [facility] budesonide- formoteroL (Symbicort) 160-4.5 mcg/actuati on inhaler 05-24 13:54: 49 Yes Symbicort 160 mcg-4.5 mcg/actuat ion HFA aerosol inhaler [facility] atorvastati n (LIPITOR) 20 MG tablet 05-24 13:54: 49 Yes 20mg Take [facility] mg [facility]. [facility]Medrol Dose-Pack[facility] 21 Tab/Dspk TAB 2018-03 18:52: 00 No 1 [facility] Methylpredn isolone (Medrol Dose-Pack) 21 Tab/Dspk TAB 2018-03 18:52: 00 No 1 As Directed [facility] ALPRAZolam (XANAX) 1 mg tablet 2018-03 13:41: 15 Yes 1mg Take 1 mg by mouth 3 (three) times daily. [facility] omeprazole 40 mg capsule 2018-03 13:41: 15 Yes 40mg Take 40 mg by mouth daily. [facility] loratadine 10 mg tablet 2018-03 13:41: 15 Yes 10mg Take 10 mg by mouth daily. [facility] aspirin 81 mg chewable tablet 2018-03 13:41: 15 Yes 81mg Take 81 mg by mouth daily. [facility] lisinopril 10 mg tablet 2018-03 13:41: 15 Yes Take by mouth daily. [facility] albuterol 1.25 mg/3 mL nebulizer solution 2018-03 13:41: 15 Yes 1{ampul e} Use 1 Ampule as directed every 6 (six) hours as needed for Wheezing. [facility] ALPRAZolam (XANAX) 1 mg tablet 2018-03 13:41: 15 Yes 1mg Take 1 mg by mouth 3 (three) times daily. [facility] omeprazole 40 mg capsule 2018-03 13:41: 15 Yes 40mg Take 40 mg by mouth daily. [facility] loratadine 10 mg tablet 2018-03 13:41: 15 Yes 10mg Take 10 mg by mouth daily. [facility] aspirin 81 mg chewable tablet 2018-03 13:41: 15 Yes 81mg Take 81 mg by mouth daily. [facility] lisinopril 10 mg tablet 2018-03 13:41: 15 Yes Take by mouth daily. [facility] albuterol 1.25 mg/3 mL nebulizer solution 2018-03 13:41: 15 Yes 1{ampul e} Use 1 Ampule as directed every 6 (six) hours as needed for Wheezing. [facility] ALPRAZolam (XANAX) 1 mg tablet 2018-03 13:41: 15 Yes 1mg Take 1 mg by mouth 3 (three) times daily. [facility] omeprazole 40 mg capsule 2018-03 13:41: 15 Yes 40mg Take 40 mg by mouth daily. [facility] loratadine 10 mg tablet 2018-03 13:41: 15 Yes 10mg Take 10 mg by mouth daily. [facility] aspirin 81 mg chewable tablet 2018-03 13:41: 15 Yes 81mg Take 81 mg by mouth daily. [facility] lisinopril 10 mg tablet 2018-03 13:41: 15 Yes Take by mouth daily. [facility] albuterol 1.25 mg/3 mL nebulizer solution 2018-03 13:41: 15 Yes 1{ampul e} Use 1 Ampule as directed every 6 (six) hours as needed for Wheezing. [facility] benzonatate 100 mg capsule 2018-03 00:00: 00 Yes [id number] 100mg Take 1 capsule by mouth 3 (three) times daily as needed for Cough. [facility] mg capsule 2018-03 00:00: 00 Yes [id number] 100mg Take 1 capsule by mouth 3 (three) times daily as needed for Cough. [facility] benzonatate 100 mg capsule 2018-03 00:00: 00 Yes [id number] 100mg Take 1 capsule by mouth 3 (three) times daily as needed for Cough. [facility] ben[facility] 100 mg capsule 2018-03 00:00: 00 Yes [id number] 100mg Take 1 capsule by mouth 3 (three) times daily as needed for Cough. [facility] 2018-03 00:00: 00 Yes [id number] 100mg Take 1 capsule by mouth 3 (three) times daily as needed for Cough. [facility] benzonatate 100 mg capsule 2018-03 00:00: 00 Yes [id number] 100mg Take 1 capsule by mouth 3 (three) times daily as needed for Cough. [facility] benzonatate 100 mg capsule 2018-03 00:00: 00 Yes [id number] 100mg Take 1 capsule by mouth 3 (three) times daily as needed for Cough. [facility] benzonatate 100 mg capsule 2018-03 00:00: 00 Yes [id number] 100mg Take 1 capsule by mouth 3 (three) times daily as needed for Cough. [facility] ben[facility] 100 mg capsule 2018-03 00:00: 00 Yes [id number] 100mg Take 1 capsule by mouth 3 (three) times daily as needed for Cough. [facility] benzonatate 100 mg capsule 2018-03 00:00: 00 Yes [id number] 100mg Take 1 capsule by mouth 3 (three) times daily as needed for Cough. [facility] capsule 2018-03 00:00: 00 Yes [id number] 100mg Take 1 capsule by mouth 3 (three) times daily as needed for Cough. [facility] mg capsule 2018-03 00:00: 00 Yes [id number] 100mg Take 1 capsule by mouth 3 (three) times daily as needed for Cough. [facility] benzonatate 100 mg capsule 2018-03 00:00: 00 Yes [id number] 100mg Take 1 capsule by mouth 3 (three) times daily as needed for Cough. [facility] benzonatate 100 mg capsule 2018-03 00:00: 00 Yes [id number] 100mg Take 1 capsule by mouth 3 (three) times daily as needed for Cough. [facility] benzonatate 100 mg capsule 2018-03 00:00: 00 Yes [id number] 100mg Take 1 capsule by mouth 3 (three) times daily as needed for Cough. [facility] ben[facility] 100 mg capsule 2018-03 00:00: 00 Yes [id number] 100mg Take 1 capsule by mouth 3 (three) times daily as needed for Cough. [facility] benzonatate 100 mg capsule 2018-03 00:00: 00 Yes [id number] 100mg Take 1 capsule by mouth 3 (three) times daily as needed for Cough. [facility] benzonatate 100 mg capsule 2018-03 00:00: 00 Yes [id number] 100mg Take 1 capsule by mouth 3 (three) times daily as needed for Cough. [facility] benzonatate 100 mg capsule 2018-03 00:00: 00 Yes [id number] 100mg Take 1 capsule by mouth 3 (three) times daily as needed for Cough. [facility] benzonatate 100 mg capsule 2018-03 00:00: 00 Yes [id number] 100mg Take 1 capsule by mouth 3 (three) times daily as needed for Cough. [facility] benzonatate 100 mg capsule 2018-03 00:00: 00 Yes [id number] 100mg Take 1 capsule by mouth 3 (three) times daily as needed for Cough. [facility] benzonatate 100 mg capsule 2018-03 00:00: 00 Yes [id number] 100mg Take 1 capsule by mouth 3 (three) times daily as needed for Cough. [facility] benzonatate 100 mg capsule 2018-03 00:00: 00 Yes [id number] 100mg Take 1 capsule by mouth 3 (three) times daily as needed for Cough. [facility] mg capsule 2018-03 00:00: 00 Yes [id number] 100mg Take 1 capsule by mouth 3 (three) times daily as needed for Cough. [facility] mg capsule 2018-03 00:00: 00 Yes [id number] 100mg Take 1 capsule by mouth 3 (three) times daily as needed for Cough. [facility] benzonatate 100 mg capsule 2018-03 00:00: 00 Yes [id number] 100mg Take 1 capsule by mouth 3 (three) times daily as needed for Cough. [facility] benzonatate 100 mg capsule 2018-03 00:00: 00 Yes [id number] 100mg Take 1 capsule by mouth 3 (three) times daily as needed for Cough. [facility] benzonatate 100 mg capsule 2018-03 00:00: 00 Yes [id number] 100mg Take 1 capsule by mouth 3 (three) times daily as needed for Cough. [facility] benzonatate 100 mg capsule 2018-03 00:00: 00 Yes [id number] 100mg Take 1 capsule by mouth 3 (three) times daily as needed for Cough. [facility] benzonatate 100 mg capsule 2018-03 00:00: 00 Yes [id number] 100mg Take 1 capsule by mouth 3 (three) times daily as needed for Cough. [facility] benzonatate 100 mg capsule 2018-03 00:00: 00 Yes [id number] 100mg Take 1 capsule by mouth 3 (three) times daily as needed for Cough. [facility] benzonatate 100 mg capsule 2018-03 00:00: 00 Yes [id number] 100mg Take 1 capsule by mouth 3 (three) times daily as needed for Cough. [facility] benzonatate 100 mg capsule 2018-03 00:00: 00 Yes [id number] 100mg Take 1 capsule by mouth 3 (three) times daily as needed for Cough. [facility] benzonatate 100 mg capsule 2018-03 00:00: 00 Yes [id number] 100mg Take 1 capsule by mouth 3 (three) times daily as needed for Cough. [facility] capsule 2018-03 00:00: 00 Yes [id number] 100mg Take 1 capsule by mouth 3 (three) times daily as needed for Cough. [facility] mg capsule 2018-03 00:00: 00 Yes [id number] 100mg Take 1 capsule by mouth 3 (three) times daily as needed for Cough. [facility] benzonatate 100 mg capsule 2018-03 00:00: 00 Yes [id number] 100mg Take 1 capsule by mouth 3 (three) times daily as needed for Cough. [facility] benzonatate 100 mg capsule 2018-03 00:00: 00 Yes [id number] 100mg Take 1 capsule by mouth 3 (three) times daily as needed for Cough. [facility] benzonatate 100 mg capsule 2018-03 00:00: 00 Yes [id number] 100mg Take 1 capsule by mouth 3 (three) times daily as needed for Cough. [facility] benzonatate 100 mg capsule 2018-03 00:00: 00 Yes [id number] 100mg Take 1 capsule by mouth 3 (three) times daily as needed for Cough. [facility] benzonatate 100 mg capsule 2018-03 00:00: 00 07-01 00:00 :00 No [id number] 100mg Take 1 capsule by mouth 3 (three) times daily as needed for Cough. [facility] benzonatate 100 mg capsule 2018-03 00:00: 00 07-01 00:00 :00 No [id number] 100mg Take 1 capsule by mouth 3 (three) times daily as needed for Cough. [facility] ZOFRAN ODT 4 mg disintegrat ing tablet 7-24 00:00: 00 Yes 4mg Take 1 tablet by mouth every 8 (eight) hours as needed for Nausea and Vomiting (N/V). [facility] ZOFRAN ODT 4 mg disintegrat ing tablet 09-23 00:00: 00 Yes 4mg Take 1 tablet by mouth every 8 (eight) hours as needed for Nausea and Vomiting (N/V). [facility] ZOFRAN ODT 4 mg disintegrat ing tablet 09-23 00:00: 00 Yes 4mg Take 1 tablet by mouth every 8 (eight) hours as needed for Nausea and Vomiting (N/V). [facility] ZOFRAN ODT 4 mg disintegrat ing tablet 09-23 00:00: 00 Yes 4mg Take 1 tablet by mouth every 8 (eight) hours as needed for Nausea and Vomiting (N/V). [facility] ZOFRAN ODT 4 mg disintegrat ing tablet 09-23 00:00: 00 Yes 4mg Take 1 tablet by mouth every 8 (eight) hours as needed for Nausea and Vomiting (N/V). [facility] ZOFRAN ODT 4 mg disintegrat ing tablet 09-23 00:00: 00 Yes 4mg Take 1 tablet by mouth every 8 (eight) hours as needed for Nausea and Vomiting (N/V). [facility] ZOFRAN ODT 4 mg disintegrat ing tablet 09-23 00:00: 00 Yes 4mg Take 1 tablet by mouth every 8 (eight) hours as needed for Nausea and Vomiting (N/V). [facility] ZOFRAN ODT 4 mg disintegrat ing tablet 09-23 00:00: 00 Yes 4mg Take 1 tablet by mouth every 8 (eight) hours as needed for Nausea and Vomiting (N/V). [facility] ZOFRAN ODT 4 mg disintegrat ing tablet 09-23 00:00: 00 Yes 4mg Take 1 tablet by mouth every 8 (eight) hours as needed for Nausea and Vomiting (N/V). [facility] ZOFRAN ODT 4 mg disintegrat ing tablet 09-23 00:00: 00 Yes 4mg Take 1 tablet by mouth every 8 (eight) hours as needed for Nausea and Vomiting (N/V). [facility] ZOFRAN ODT 4 mg disintegrat ing tablet 09-23 00:00: 00 Yes 4mg Take 1 tablet by mouth every 8 (eight) hours as needed for Nausea and Vomiting (N/V). [facility] ZOFRAN ODT 4 mg disintegrat ing tablet 09-23 00:00: 00 Yes 4mg Take 1 tablet by mouth every 8 (eight) hours as needed for Nausea and Vomiting (N/V). [facility] ZOFRAN ODT 4 mg disintegrat ing tablet 09-23 00:00: 00 Yes 4mg Take 1 tablet by mouth every 8 (eight) hours as needed for Nausea and Vomiting (N/V). [facility] ZOFRAN ODT 4 mg disintegrat ing tablet 09-23 00:00: 00 Yes 4mg Take 1 tablet by mouth every 8 (eight) hours as needed for Nausea and Vomiting (N/V). [facility] ZOFRAN ODT 4 mg disintegrat ing tablet 09-23 00:00: 00 Yes 4mg Take 1 tablet by mouth every 8 (eight) hours as needed for Nausea and Vomiting (N/V). [facility] ZOFRAN ODT 4 mg disintegrat ing tablet 09-23 00:00: 00 Yes 4mg Take 1 tablet by mouth every 8 (eight) hours as needed for Nausea and Vomiting (N/V). [facility] ZOFRAN ODT 4 mg disintegrat ing tablet 09-23 00:00: 00 Yes 4mg Take 1 tablet by mouth every 8 (eight) hours as needed for Nausea and Vomiting (N/V). [facility] ZOFRAN ODT 4 mg disintegrat ing tablet 09-23 00:00: 00 Yes 4mg Take 1 tablet by mouth every 8 (eight) hours as needed for Nausea and Vomiting (N/V). [facility] ZOFRAN ODT 4 mg disintegrat ing tablet 09-23 00:00: 00 Yes 4mg Take 1 tablet by mouth every 8 (eight) hours as needed for Nausea and Vomiting (N/V). [facility] ZOFRAN ODT 4 mg disintegrat ing tablet 09-23 00:00: 00 Yes 4mg Take 1 tablet by mouth every 8 (eight) hours as needed for Nausea and Vomiting (N/V). [facility] ZOFRAN ODT 4 mg disintegrat ing tablet 09-23 00:00: 00 Yes 4mg Take 1 tablet by mouth every 8 (eight) hours as needed for Nausea and Vomiting (N/V). [facility] ZOFRAN ODT 4 mg disintegrat ing tablet 09-23 00:00: 00 Yes 4mg Take 1 tablet by mouth every 8 (eight) hours as needed for Nausea and Vomiting (N/V). [facility] ZOFRAN ODT 4 mg disintegrat ing tablet 09-23 00:00: 00 Yes 4mg Take 1 tablet by mouth every 8 (eight) hours as needed for Nausea and Vomiting (N/V). [facility] ZOFRAN ODT 4 mg disintegrat ing tablet 09-23 00:00: 00 Yes 4mg Take 1 tablet by mouth every 8 (eight) hours as needed for Nausea and Vomiting (N/V). [facility] ZOFRAN ODT 4 mg disintegrat ing tablet 09-23 00:00: 00 Yes 4mg Take 1 tablet by mouth every 8 (eight) hours as needed for Nausea and Vomiting (N/V). [facility] ZOFRAN ODT 4 mg disintegrat ing tablet 09-23 00:00: 00 Yes 4mg Take 1 tablet by mouth every 8 (eight) hours as needed for Nausea and Vomiting (N/V). [facility] ZOFRAN ODT 4 mg disintegrat ing tablet 09-23 00:00: 00 Yes 4mg Take 1 tablet by mouth every 8 (eight) hours as needed for Nausea and Vomiting (N/V). [facility] ZOFRAN ODT 4 mg disintegrat ing tablet 09-23 00:00: 00 Yes 4mg Take 1 tablet by mouth every 8 (eight) hours as needed for Nausea and Vomiting (N/V). [facility] ZOFRAN ODT 4 mg disintegrat ing tablet 09-23 00:00: 00 Yes 4mg Take 1 tablet by mouth every 8 (eight) hours as needed for Nausea and Vomiting (N/V). [facility] ZOFRAN ODT 4 mg disintegrat ing tablet 09-23 00:00: 00 Yes 4mg Take 1 tablet by mouth every 8 (eight) hours as needed for Nausea and Vomiting (N/V). [facility] sod chlor-bicar b-squeez bottle (NEILMED SINUS RINSE COMPLETE) [facility] 18 00:00: 00 Yes 1{bottl e} Use 1 Bottle in each nostril 2 (two) times daily. Use in hot shower 1 hour before bedtime [facility] sod chlor-bicar b-squeez bottle (NEILMED SINUS RINSE COMPLETE) [facility] 18 00:00: 00 Yes 1{bottl e} Use 1 Bottle in each nostril 2 (two) times daily. Use in hot shower 1 hour before bedtime [facility] sod chlor-bicar b-squeez bottle (NEILMED SINUS RINSE COMPLETE) [facility] 18 00:00: 00 Yes 1{bottl e} Use 1 Bottle in each nostril 2 (two) times daily. Use in hot shower 1 hour before bedtime [facility] sod chlor-bicar b-squeez bottle (NEILMED SINUS RINSE COMPLETE) [facility] 18 00:00: 00 Yes 1{bottl e} Use 1 Bottle in each nostril 2 (two) times daily. Use in hot shower 1 hour before bedtime [facility] sod chlor-bicar b-squeez bottle (NEILMED SINUS RINSE COMPLETE) [facility] 18 00:00: 00 Yes 1{bottl e} Use 1 Bottle in each nostril 2 (two) times daily. Use in hot shower 1 hour before bedtime [facility] sod chlor-bicar b-squeez bottle (NEILMED SINUS RINSE COMPLETE) [facility] 18 00:00: 00 Yes 1{bottl e} Use 1 Bottle in each nostril 2 (two) times daily. Use in hot shower 1 hour before bedtime [facility] sod chlor-bicar b-squeez bottle (NEILMED SINUS RINSE COMPLETE) [facility] 05-18 00:00: 00 Yes 1{bottl e} Use 1 Bottle in each nostril 2 (two) times daily. Use in hot shower 1 hour before bedtime [facility] sod chlor-bicar b-squeez bottle (NEILMED SINUS RINSE COMPLETE) [facility] 05-18 00:00: 00 Yes 1{bottl e} Use 1 Bottle in each nostril 2 (two) times daily. Use in hot shower 1 hour before bedtime [facility] sod chlor-bicar b-squeez bottle (NEILMED SINUS RINSE COMPLETE) [facility] 05-18 00:00: 00 Yes 1{bottl e} Use 1 Bottle in each nostril 2 (two) times daily. Use in hot shower 1 hour before bedtime [facility] sod chlor-bicar b-squeez bottle (NEILMED SINUS RINSE COMPLETE) [facility] 05-18 00:00: 00 Yes 1{bottl e} Use 1 Bottle in each nostril 2 (two) times daily. Use in hot shower 1 hour before bedtime [facility] sod chlor-bicar b-squeez bottle (NEILMED SINUS RINSE COMPLETE) [facility] 05-18 00:00: 00 Yes 1{bottl e} Use 1 Bottle in each nostril 2 (two) times daily. Use in hot shower 1 hour before bedtime [facility] sod chlor-bicar b-squeez bottle (NEILMED SINUS RINSE COMPLETE) [facility] 05-18 00:00: 00 Yes 1{bottl e} Use 1 Bottle in each nostril 2 (two) times daily. Use in hot shower 1 hour before bedtime [facility] sod chlor-bicar b-squeez bottle (NEILMED SINUS RINSE COMPLETE) [facility] 05-18 00:00: 00 Yes 1{bottl e} Use 1 Bottle in each nostril 2 (two) times daily. Use in hot shower 1 hour before bedtime [facility] sod chlor-bicar b-squeez bottle (NEILMED SINUS RINSE COMPLETE) [facility] 05-18 00:00: 00 Yes 1{bottl e} Use 1 Bottle in each nostril 2 (two) times daily. Use in hot shower 1 hour before bedtime [facility] sod chlor-bicar b-squeez bottle (NEILMED SINUS RINSE COMPLETE) [facility] 05-18 00:00: 00 Yes 1{bottl e} Use 1 Bottle in each nostril 2 (two) times daily. Use in hot shower 1 hour before bedtime [facility] sod chlor-bicar b-squeez bottle (NEILMED SINUS RINSE COMPLETE) [facility] 05-18 00:00: 00 Yes 1{bottl e} Use 1 Bottle in each nostril 2 (two) times daily. Use in hot shower 1 hour before bedtime [facility] sod chlor-bicar b-squeez bottle (NEILMED SINUS RINSE COMPLETE) [facility] 05-18 00:00: 00 Yes 1{bottl e} Use 1 Bottle in each nostril 2 (two) times daily. Use in hot shower 1 hour before bedtime [facility] sod chlor-bicar b-squeez bottle (NEILMED SINUS RINSE COMPLETE) [facility] 05-18 00:00: 00 Yes 1{bottl e} Use 1 Bottle in each nostril 2 (two) times daily. Use in hot shower 1 hour before bedtime [facility] sod chlor-bicar b-squeez bottle (NEILMED SINUS RINSE COMPLETE) [facility] 05-18 00:00: 00 Yes 1{bottl e} Use 1 Bottle in each nostril 2 (two) times daily. Use in hot shower 1 hour before bedtime [facility] sod chlor-bicar b-squeez bottle (NEILMED SINUS RINSE COMPLETE) [facility] 05-18 00:00: 00 Yes 1{bottl e} Use 1 Bottle in each nostril 2 (two) times daily. Use in hot shower 1 hour before bedtime [facility] sod chlor-bicar b-squeez bottle (NEILMED SINUS RINSE COMPLETE) [facility] 05-18 00:00: 00 Yes 1{bottl e} Use 1 Bottle in each nostril 2 (two) times daily. Use in hot shower 1 hour before bedtime [facility] sod chlor-bicar b-squeez bottle (NEILMED SINUS RINSE COMPLETE) [facility] 05-18 00:00: 00 Yes 1{bottl e} Use 1 Bottle in each nostril 2 (two) times daily. Use in hot shower 1 hour before bedtime [facility] sod chlor-bicar b-squeez bottle (NEILMED SINUS RINSE COMPLETE) [facility] 05-18 00:00: 00 Yes 1{bottl e} Use 1 Bottle in each nostril 2 (two) times daily. Use in hot shower 1 hour before bedtime [facility] sod chlor-bicar b-squeez bottle (NEILMED SINUS RINSE COMPLETE) [facility] 05-18 00:00: 00 Yes 1{bottl e} Use 1 Bottle in each nostril 2 (two) times daily. Use in hot shower 1 hour before bedtime [facility] sod chlor-bicar b-squeez bottle (NEILMED SINUS RINSE COMPLETE) [facility] 05-18 00:00: 00 Yes 1{bottl e} Use 1 Bottle in each nostril 2 (two) times daily. Use in hot shower 1 hour before bedtime [facility] sod chlor-bicar b-squeez bottle (NEILMED SINUS RINSE COMPLETE) [facility] 05-18 00:00: 00 Yes 1{bottl e} Use 1 Bottle in each nostril 2 (two) times daily. Use in hot shower 1 hour before bedtime [facility] sod chlor-bicar b-squeez bottle (NEILMED SINUS RINSE COMPLETE) [facility] 05-18 00:00: 00 Yes 1{bottl e} Use 1 Bottle in each nostril 2 (two) times daily. Use in hot shower 1 hour before bedtime [facility] sod chlor-bicar b-squeez bottle (NEILMED SINUS RINSE COMPLETE) [facility] 05-18 00:00: 00 Yes 1{bottl e} Use 1 Bottle in each nostril 2 (two) times daily. Use in hot shower 1 hour before bedtime [facility] sod chlor-bicar b-squeez bottle (NEILMED SINUS RINSE COMPLETE) [facility] 05-18 00:00: 00 Yes 1{bottl e} Use 1 Bottle in each nostril 2 (two) times daily. Use in hot shower 1 hour before bedtime [facility] sod chlor-bicar b-squeez bottle (NEILMED SINUS RINSE COMPLETE) [facility] 05-18 00:00: 00 Yes 1{bottl e} Use 1 Bottle in each nostril 2 (two) times daily. Use in hot shower 1 hour before bedtime [facility] sod chlor-bicar b-squeez bottle (NEILMED SINUS RINSE COMPLETE) [facility] 05-18 00:00: 00 Yes 1{bottl e} Use 1 Bottle in each nostril 2 (two) times daily. Use in hot shower 1 hour before bedtime [facility] sod chlor-bicar b-squeez bottle (NEILMED SINUS RINSE COMPLETE) [facility] 05-18 00:00: 00 Yes 1{bottl e} Use 1 Bottle in each nostril 2 (two) times daily. Use in hot shower 1 hour before bedtime [facility] sod chlor-bicar b-squeez bottle (NEILMED SINUS RINSE COMPLETE) [facility] 05-18 00:00: 00 Yes 1{bottl e} Use 1 Bottle in each nostril 2 (two) times daily. Use in hot shower 1 hour before bedtime [facility] sod chlor-bicar b-squeez bottle (NEILMED SINUS RINSE COMPLETE) [facility] 05-18 00:00: 00 Yes 1{bottl e} Use 1 Bottle in each nostril 2 (two) times daily. Use in hot shower 1 hour before bedtime [facility] sod chlor-bicar b-squeez bottle (NEILMED SINUS RINSE COMPLETE) [facility] 05-18 00:00: 00 Yes 1{bottl e} Use 1 Bottle in each nostril 2 (two) times daily. Use in hot shower 1 hour before bedtime [facility] sod chlor-bicar b-squeez bottle (NEILMED SINUS RINSE COMPLETE) [facility] 05-18 00:00: 00 Yes 1{bottl e} Use 1 Bottle in each nostril 2 (two) times daily. Use in hot shower 1 hour before bedtime [facility] sod chlor-bicar b-squeez bottle (NEILMED SINUS RINSE COMPLETE) [facility] 05-18 00:00: 00 Yes 1{bottl e} Use 1 Bottle in each nostril 2 (two) times daily. Use in hot shower 1 hour before bedtime [facility] sod chlor-bicar b-squeez bottle (NEILMED SINUS RINSE COMPLETE) [facility] 05-18 00:00: 00 Yes 1{bottl e} Use 1 Bottle in each nostril 2 (two) times daily. Use in hot shower 1 hour before bedtime [facility] sod chlor-bicar b-squeez bottle (NEILMED SINUS RINSE COMPLETE) [facility] 05-18 00:00: 00 Yes 1{bottl e} Use 1 Bottle in each nostril 2 (two) times daily. Use in hot shower 1 hour before bedtime [facility] sod chlor-bicar b-squeez bottle (NEILMED SINUS RINSE COMPLETE) [facility] 05-18 00:00: 00 Yes 1{bottl e} Use 1 Bottle in each nostril 2 (two) times daily. Use in hot shower 1 hour before bedtime [facility] sod chlor-bicar b-squeez bottle (NEILMED SINUS RINSE COMPLETE) [facility] 05-18 00:00: 00 07-01 00:00 :00 No 1{bottl e} Use 1 Bottle in each nostril 2 (two) times daily. Use in hot shower 1 hour before bedtime [facility] sod chlor-bicar b-squeez bottle (NEILMED SINUS RINSE COMPLETE) [facility] 2017-0 3-18 00:00: 00 07-01 00:00 :00 No 1{bottl e} Use 1 Bottle in each nostril 2 (two) times daily. Use in hot shower 1 hour before bedtime [facility] Immunizations Ordered Immunization Name Filled Immunization Name Date Status Comments Source SARS-COV-2 COVID-19 PFIZER VACCINE 2020-10-15 00:00:00 Completed [facility] SARS-COV-2 COVID-19 PFIZER VACCINE 2020-10-15 00:00:00 Completed [facility] SARS-COV-2 COVID-19 PFIZER VACCINE 2020-10-15 00:00:00 Completed [facility] SARS-COV-2 COVID-19 PFIZER VACCINE 2020-10-15 00:00:00 Completed [facility] SARS-COV-2 COVID-19 PFIZER VACCINE 2020-10-15 00:00:00 Completed [facility] SARS-COV-2 COVID-19 PFIZER VACCINE 2020-10-15 00:00:00 Completed [facility] SARS-COV-2 COVID-19 PFIZER VACCINE 2020-10-15 00:00:00 Completed [facility] SARS-COV-2 COVID-19 PFIZER VACCINE 2020-10-15 00:00:00 Completed [facility] SARS-COV-2 COVID-19 PFIZER VACCINE 2020-10-15 00:00:00 Completed [facility] SARS-COV-2 COVID-19 PFIZER VACCINE 2020-10-15 00:00:00 Completed [facility] SARS-COV-2 COVID-19 PFIZER VACCINE 2020-10-15 00:00:00 Completed [facility] SARS-COV-2 COVID-19 PFIZER VACCINE 2020-10-15 00:00:00 Completed [facility] SARS-COV-2 COVID-19 PFIZER VACCINE 2020-10-15 00:00:00 Completed [facility] SARS-COV-2 COVID-19 PFIZER VACCINE 2020-10-15 00:00:00 Completed [facility] SARS-COV-2 COVID-19 PFIZER VACCINE 2020-10-15 00:00:00 Completed [facility] SARS-COV-2 COVID-19 PFIZER VACCINE 2020-10-15 00:00:00 Completed [facility] SARS-COV-2 COVID-19 PFIZER VACCINE 2020-10-15 00:00:00 Completed [facility] SARS-COV-2 COVID-19 PFIZER VACCINE 2020-10-15 00:00:00 Completed [facility] SARS-COV-2 COVID-19 PFIZER VACCINE 2020-10-15 00:00:00 Completed [facility] SARS-COV-2 COVID-19 PFIZER VACCINE 2020-10-15 00:00:00 Completed [facility] SARS-COV-2 COVID-19 PFIZER VACCINE 2020-10-15 00:00:00 Completed [facility] SARS-COV-2 COVID-19 PFIZER VACCINE 2020-10-15 00:00:00 Completed [facility] SARS-COV-2 COVID-19 PFIZER VACCINE 2020-10-15 00:00:00 Completed [facility] SARS-COV-2 COVID-19 PFIZER VACCINE 2020-10-15 00:00:00 Completed [facility] SARS-COV-2 COVID-19 PFIZER VACCINE 2020-10-15 00:00:00 Completed [facility] SARS-COV-2 COVID-19 PFIZER VACCINE 2020-10-15 00:00:00 Completed [facility] SARS-COV-2 COVID-19 PFIZER VACCINE 2020-10-15 00:00:00 Completed [facility] SARS-COV-2 COVID-19 PFIZER VACCINE 2020-10-15 00:00:00 Completed [facility] SARS-COV-2 COVID-19 PFIZER VACCINE 2020-10-15 00:00:00 Completed [facility] SARS-COV-2 COVID-19 PFIZER VACCINE 2020-10-15 00:00:00 Completed [facility] SARS-COV-2 COVID-19 PFIZER VACCINE 2020-10-15 00:00:00 Completed [facility] SARS-COV-2 COVID-19 PFIZER VACCINE 2020-10-15 00:00:00 Completed [facility] SARS-COV-2 COVID-19 PFIZER VACCINE 2020-10-15 00:00:00 Completed [facility] SARS-COV-2 COVID-19 PFIZER VACCINE 2020-10-15 00:00:00 Completed [facility] SARS-COV-2 COVID-19 PFIZER VACCINE 2020-10-15 00:00:00 Completed [facility] SARS-COV-2 COVID-19 PFIZER VACCINE 2020-10-15 00:00:00 Completed [facility] SARS-COV-2 COVID-19 PFIZER VACCINE 2020-10-15 00:00:00 Completed [facility] SARS-COV-2 COVID-19 PFIZER VACCINE 2020-10-15 00:00:00 Completed [facility] SARS-COV-2 COVID-19 PFIZER VACCINE 2020-10-15 00:00:00 Completed [facility] SARS-COV-2 COVID-19 PFIZER VACCINE 2020-10-15 00:00:00 Completed [facility] SARS-COV-2 COVID-19 PFIZER VACCINE 2020-10-15 00:00:00 Completed [facility] SARS-COV-2 COVID-19 PFIZER VACCINE 2020-10-15 00:00:00 Completed [facility] SARS-COV-2 COVID-19 PFIZER VACCINE 2020-10-15 00:00:00 Completed [facility] SARS-COV-2 COVID-19 PFIZER VACCINE 2020-10-15 00:00:00 Completed [facility] SARS-COV-2 COVID-19 PFIZER VACCINE 2020-10-15 00:00:00 Completed [facility] SARS-COV-2 COVID-19 PFIZER VACCINE 2020-10-15 00:00:00 Completed [facility] SARS-COV-2 COVID-19 PFIZER VACCINE 2020-10-15 00:00:00 Completed [facility] SARS-COV-2 COVID-19 PFIZER VACCINE 2020-10-15 00:00:00 Completed [facility] SARS-COV-2 COVID-19 PFIZER VACCINE 2020-10-15 00:00:00 Completed [facility] SARS-COV-2 COVID-19 PFIZER VACCINE 2020-10-15 00:00:00 Completed [facility] SARS-COV-2 COVID-19 PFIZER VACCINE 2020-10-15 00:00:00 Completed [facility] SARS-COV-2 COVID-19 PFIZER VACCINE 2020-10-15 00:00:00 Completed [facility] SARS-COV-2 COVID-19 PFIZER VACCINE 2020-10-15 00:00:00 Completed [facility] SARS-COV-2 COVID-19 PFIZER VACCINE 2020-10-15 00:00:00 Completed [facility] SARS-COV-2 COVID-19 PFIZER VACCINE 2020-10-15 00:00:00 Completed [facility] SARS-COV-2 COVID-19 PFIZER VACCINE 2020-10-15 00:00:00 Completed [facility] SARS-COV-2 COVID-19 PFIZER VACCINE 2020-10-15 00:00:00 Completed [facility] SARS-COV-2 COVID-19 PFIZER VACCINE 2020-10-15 00:00:00 Completed [facility] SARS-COV-2 COVID-19 PFIZER VACCINE 2020-10-15 00:00:00 Completed [facility] SARS-COV-2 COVID-19 PFIZER VACCINE 2020-10-15 00:00:00 Completed [facility] SARS-COV-2 COVID-19 PFIZER VACCINE 2020-10-15 00:00:00 Completed [facility] SARS-COV-2 COVID-19 PFIZER VACCINE 2020-10-15 00:00:00 Completed [facility] SARS-COV-2 COVID-19 PFIZER VACCINE 2020-10-15 00:00:00 Completed [facility] SARS-COV-2 COVID-19 PFIZER VACCINE 2020-10-15 00:00:00 Completed [facility] SARS-COV-2 COVID-19 PFIZER VACCINE 2020-10-15 00:00:00 Completed [facility] SARS-COV-2 COVID-19 PFIZER VACCINE 2020-10-15 00:00:00 Completed [facility] SARS-COV-2 COVID-19 PFIZER VACCINE 2020-10-15 00:00:00 Completed [facility] SARS-COV-2 COVID-19 PFIZER VACCINE 2020-10-15 00:00:00 Completed [facility] SARS-COV-2 COVID-19 PFIZER VACCINE 2020-10-15 00:00:00 Completed [facility] SARS-COV-2 COVID-19 PFIZER VACCINE 2020-10-15 00:00:00 Completed [facility] SARS-COV-2 COVID-19 PFIZER VACCINE 2020-09-22 00:00:00 Completed [facility] SARS-COV-2 COVID-19 PFIZER VACCINE 2020-09-22 00:00:00 Completed [facility] SARS-COV-2 COVID-19 PFIZER VACCINE 2020-09-22 00:00:00 Completed [facility] SARS-COV-2 COVID-19 PFIZER VACCINE 2020-09-22 00:00:00 Completed [facility] SARS-COV-2 COVID-19 PFIZER VACCINE 2020-09-22 00:00:00 Completed [facility] SARS-COV-2 COVID-19 PFIZER VACCINE 2020-09-22 00:00:00 Completed [facility] SARS-COV-2 COVID-19 PFIZER VACCINE 2020-09-22 00:00:00 Completed [facility] SARS-COV-2 COVID-19 PFIZER VACCINE 2020-09-22 00:00:00 Completed [facility] SARS-COV-2 COVID-19 PFIZER VACCINE 2020-09-22 00:00:00 Completed [facility] SARS-COV-2 COVID-19 PFIZER VACCINE 2020-09-22 00:00:00 Completed [facility] SARS-COV-2 COVID-19 PFIZER VACCINE 2020-09-22 00:00:00 Completed [facility] SARS-COV-2 COVID-19 PFIZER VACCINE 2020-09-22 00:00:00 Completed [facility] SARS-COV-2 COVID-19 PFIZER VACCINE 2020-09-22 00:00:00 Completed [facility] SARS-COV-2 COVID-19 PFIZER VACCINE 2020-09-22 00:00:00 Completed [facility] SARS-COV-2 COVID-19 PFIZER VACCINE 2020-09-22 00:00:00 Completed [facility] SARS-COV-2 COVID-19 PFIZER VACCINE 2020-09-22 00:00:00 Completed [facility] SARS-COV-2 COVID-19 PFIZER VACCINE 2020-09-22 00:00:00 Completed [facility] SARS-COV-2 COVID-19 PFIZER VACCINE 2020-09-22 00:00:00 Completed [facility] SARS-COV-2 COVID-19 PFIZER VACCINE 2020-09-22 00:00:00 Completed [facility] SARS-COV-2 COVID-19 PFIZER VACCINE 2020-09-22 00:00:00 Completed [facility] SARS-COV-2 COVID-19 PFIZER VACCINE 2020-09-22 00:00:00 Completed [facility] SARS-COV-2 COVID-19 PFIZER VACCINE 2020-09-22 00:00:00 Completed [facility] SARS-COV-2 COVID-19 PFIZER VACCINE 2020-09-22 00:00:00 Completed [facility] SARS-COV-2 COVID-19 PFIZER VACCINE 2020-09-22 00:00:00 Completed [facility] SARS-COV-2 COVID-19 PFIZER VACCINE 2020-09-22 00:00:00 Completed [facility] SARS-COV-2 COVID-19 PFIZER VACCINE 2020-09-22 00:00:00 Completed [facility] SARS-COV-2 COVID-19 PFIZER VACCINE 2020-09-22 00:00:00 Completed [facility] SARS-COV-2 COVID-19 PFIZER VACCINE 2020-09-22 00:00:00 Completed [facility] SARS-COV-2 COVID-19 PFIZER VACCINE 2020-09-22 00:00:00 Completed [facility] SARS-COV-2 COVID-19 PFIZER VACCINE 2020-09-22 00:00:00 Completed [facility] SARS-COV-2 COVID-19 PFIZER VACCINE 2020-09-22 00:00:00 Completed [facility] SARS-COV-2 COVID-19 PFIZER VACCINE 2020-09-22 00:00:00 Completed [facility] SARS-COV-2 COVID-19 PFIZER VACCINE 2020-09-22 00:00:00 Completed [facility] SARS-COV-2 COVID-19 PFIZER VACCINE 2020-09-22 00:00:00 Completed [facility] SARS-COV-2 COVID-19 PFIZER VACCINE 2020-09-22 00:00:00 Completed [facility] SARS-COV-2 COVID-19 PFIZER VACCINE 2020-09-22 00:00:00 Completed [facility] SARS-COV-2 COVID-19 PFIZER VACCINE 2020-09-22 00:00:00 Completed [facility] SARS-COV-2 COVID-19 PFIZER VACCINE 2020-09-22 00:00:00 Completed [facility] SARS-COV-2 COVID-19 PFIZER VACCINE 2020-09-22 00:00:00 Completed [facility] SARS-COV-2 COVID-19 PFIZER VACCINE 2020-09-22 00:00:00 Completed [facility] SARS-COV-2 COVID-19 PFIZER VACCINE 2020-09-22 00:00:00 Completed [facility] SARS-COV-2 COVID-19 PFIZER VACCINE 2020-09-22 00:00:00 Completed [facility] SARS-COV-2 COVID-19 PFIZER VACCINE 2020-09-22 00:00:00 Completed [facility] SARS-COV-2 COVID-19 PFIZER VACCINE 2020-09-22 00:00:00 Completed [facility] SARS-COV-2 COVID-19 PFIZER VACCINE 2020-09-22 00:00:00 Completed [facility] SARS-COV-2 COVID-19 PFIZER VACCINE 2020-09-22 00:00:00 Completed [facility] SARS-COV-2 COVID-19 PFIZER VACCINE 2020-09-22 00:00:00 Completed [facility] SARS-COV-2 COVID-19 PFIZER VACCINE 2020-09-22 00:00:00 Completed [facility] SARS-COV-2 COVID-19 PFIZER VACCINE 2020-09-22 00:00:00 Completed [facility] SARS-COV-2 COVID-19 PFIZER VACCINE 2020-09-22 00:00:00 Completed [facility] SARS-COV-2 COVID-19 PFIZER VACCINE 2020-09-22 00:00:00 Completed [facility] SARS-COV-2 COVID-19 PFIZER VACCINE 2020-09-22 00:00:00 Completed [facility] SARS-COV-2 COVID-19 PFIZER VACCINE 2020-09-22 00:00:00 Completed [facility] SARS-COV-2 COVID-19 PFIZER VACCINE 2020-09-22 00:00:00 Completed [facility] SARS-COV-2 COVID-19 PFIZER VACCINE 2020-09-22 00:00:00 Completed [facility] SARS-COV-2 COVID-19 PFIZER VACCINE 2020-09-22 00:00:00 Completed [facility] SARS-COV-2 COVID-19 PFIZER VACCINE 2020-09-22 00:00:00 Completed [facility] SARS-COV-2 COVID-19 PFIZER VACCINE 2020-09-22 00:00:00 Completed [facility] SARS-COV-2 COVID-19 PFIZER VACCINE 2020-09-22 00:00:00 Completed [facility] SARS-COV-2 COVID-19 PFIZER VACCINE 2020-09-22 00:00:00 Completed [facility] SARS-COV-2 COVID-19 PFIZER VACCINE 2020-09-22 00:00:00 Completed [facility] SARS-COV-2 COVID-19 PFIZER VACCINE 2020-09-22 00:00:00 Completed [facility] SARS-COV-2 COVID-19 PFIZER VACCINE 2020-09-22 00:00:00 Completed [facility] SARS-COV-2 COVID-19 PFIZER VACCINE 2020-09-22 00:00:00 Completed [facility] SARS-COV-2 COVID-19 PFIZER VACCINE 2020-09-22 00:00:00 Completed [facility] SARS-COV-2 COVID-19 PFIZER VACCINE 2020-09-22 00:00:00 Completed [facility] SARS-COV-2 COVID-19 PFIZER VACCINE 2020-09-22 00:00:00 Completed [facility] SARS-COV-2 COVID-19 PFIZER VACCINE 2020-09-22 00:00:00 Completed [facility] SARS-COV-2 COVID-19 PFIZER VACCINE 2020-09-22 00:00:00 Completed [facility] SARS-COV-2 COVID-19 PFIZER VACCINE 2020-09-22 00:00:00 Completed [facility] SARS-COV-2 COVID-19 PFIZER VACCINE Unknown Completed [facility] SARS-COV-2 COVID-19 PFIZER VACCINE Unknown Completed [facility] SARS-COV-2 COVID-19 PFIZER VACCINE Unknown Completed [facility] SARS-COV-2 COVID-19 PFIZER VACCINE Unknown Completed [facility] SARS-COV-2 COVID-19 PFIZER VACCINE Unknown Completed [facility] SARS-COV-2 COVID-19 PFIZER VACCINE Unknown Completed [facility] SARS-COV-2 COVID-19 PFIZER VACCINE Unknown Completed [facility] SARS-COV-2 COVID-19 PFIZER VACCINE Unknown Completed [facility] SARS-COV-2 COVID-19 PFIZER VACCINE Unknown Completed [facility] SARS-COV-2 COVID-19 PFIZER VACCINE Unknown Completed [facility] SARS-COV-2 COVID-19 PFIZER VACCINE Unknown Completed [facility] SARS-COV-2 COVID-19 PFIZER VACCINE Unknown Completed [facility] Vital Signs Vital Name Observation Time Observation Value Comments S ource Body height 2023-01-30 14:04:00 157.5 cm [facility] Body weight 2023-01-30 14:04:00 80.74 kg [facility] BMI 2023-01-30 14:04:00 32.56 kg/m2 [facility] Systolic blood pressure 2023-01-24 20:59:00 126 mm[Hg] [facility] Diastolic blood pressure 2023-01-24 20:59:00 76 mm[Hg] [facility] Heart rate 2023-01-24 20:59:00 79 /min [facility] Body temperature 2023-01-24 20:59:00 36.67 Laura [facility] Respiratory rate 2023-01-24 20:59:00 18 /min [facility] Body height 2023-01-24 20:59:00 157.5 cm [facility] Body weight 2023-01-24 20:59:00 80.74 kg [facility] BMI 2023-01-24 20:59:00 32.56 kg/m2 [facility] saturation in Arterial blood by Pulse oximetry 2023-01-24 20:59:00 96 /min [facility] Body height 2022-09-10 17:59:00 157.5 cm [facility] Body weight 2022-09-10 17:59:00 81.647 [facility] BMI 2022-09-10 17:59:00 32.92 kg/m2 [facility] Systolic blood pressure 2022-08-16 18:24:00 125 mm[Hg] [facility] Diastolic blood pressure 2022-08-16 18:24:00 77 mm[Hg] [facility] Heart rate 2022-08-16 18:24:00 80 /min [facility] Body temperature 2022-08-16 18:24:00 36.72 Laura [facility] Respiratory rate 2022-08-16 18:24:00 16 /min [facility] Body height 2022-08-16 18:24:00 157.5 cm [facility] Body weight 2022-08-16 18:24:00 81.647 kg [facility] BMI 2022-08-16 18:24:00 32.92 kg/m2 [facility] Oxygen saturation in Arterial blood by Pulse oximetry 2022-08-16 18:24:00 98 /min [facility] Systolic blood pressure 2022-08-09 13:13:00 106 mm[Hg] [facility] Diastolic blood pressure 2022-08-09 13:13:00 68 mm[Hg] [facility] Heart rate 2022-08-09 13:13:00 92 /min [facility] Body height 2022-08-09 13:13:00 157.5 cm [facility] Body weight 2022-08-09 13:13:00 81.647 kg [facility] BMI 2022-08-09 13:13:00 32.92 kg/m2 [facility] Systolic blood pressure 2022-08-06 22:21:00 142 mm[Hg] [facility] Diastolic blood pressure 2022-08-06 22:21:00 90 mm[Hg] [facility] Heart rate 2022-08-06 22:21:00 87 /min [facility] Body temperature 2022-08-06 22:21:00 37 Laura [facility] Respiratory rate 2022-08-06 22:21:00 16 /min [facility] Body weight 2022-08-06 22:21:00 81.647 kg [facility] BMI 2022-08-06 22:21:00 32.92 kg/m2 [facility] Oxygen saturation in Arterial blood by Pulse oximetry 2022-08-06 22:21:00 98 /min [facility] Systolic blood pressure 2022-07-15 19:05:00 122 mm[Hg] [facility] Diastolic blood pressure 2022-07-15 19:05:00 75 mm[Hg] [facility] Heart rate 2022-07-15 19:05:00 76 /min [facility] Body height 2022-07-15 19:05:00 157.5 cm [facility] Body weight 2022-07-15 19:05:00 81.647 kg [facility] BMI 2022-07-15 19:05:00 32.92 kg/m2 [facility] Systolic blood pressure 2022-07-04 15:24:00 122 mm[Hg] [facility] Diastolic blood pressure 2022-07-04 15:24:00 84 mm[Hg] [facility] Heart rate 2022-07-04 15:24:00 84 /min [facility] Systolic blood pressure 2022-07-04 14:26:00 109 mm[Hg] [facility] Diastolic blood pressure 2022-07-04 14:26:00 70 mm[Hg] [facility] Heart rate 2022-07-04 14:26:00 89 /min [facility] Respiratory rate 2022-07-04 14:26:00 18 /min [facility] Body height 2022-07-04 14:26:00 157.5 cm [facility] Body weight 2022-07-04 14:26:00 81.647 kg [facility] BMI 2022-07-04 14:26:00 32.92 kg/m2 [facility] Oxygen saturation in Arterial blood by Pulse oximetry 2022-07-04 14:26:00 100 /min [facility] Systolic blood pressure 2022-07-02 04:00:00 124 mm[Hg] [facility] Diastolic blood pressure 2022-07-02 04:00:00 75 mm[Hg] [facility] Heart rate 2022-07-02 04:00:00 81 /min [facility] Respiratory rate 2022-07-02 04:00:00 21 /min [facility] Oxygen saturation in Arterial blood by Pulse oximetry 2022-07-02 04:00:00 95 /min [facility] Body temperature 2022-07-02 01:36:00 37.22 Laura [facility] Body height 2022-07-02 01:36:00 157.5 cm [facility] Body weight 2022-07-02 01:36:00 85.276 kg [facility] BMI 2022-07-02 01:36:00 34.39 kg/m2 [facility] Systolic blood pressure 2022-07-01 19:25:00 127 mm[Hg] [facility] Diastolic blood pressure 2022-07-01 19:25:00 79 mm[Hg] [facility] Respiratory rate 2022-07-01 19:25:00 18 /min [facility] Oxygen saturation in Arterial blood by Pulse oximetry 2022-07-01 19:25:00 95 /min [facility] Heart rate 2022-07-01 19:20:00 75 /min [facility] Body temperature 2022-07-01 16:27:00 36.56 Laura [facility] Body height 2022-06-17 20:00:00 157.5 cm [facility] Body weight 2022-06-17 20:00:00 79.379 kg [facility] BMI 2022-06-17 20:00:00 32.01 kg/m2 [facility] Systolic blood pressure 2022-07-01 17:05:00 138 mm[Hg] [facility] Diastolic blood pressure 2022-07-01 17:05:00 88 mm[Hg] [facility] Oxygen saturation in Arterial blood by Pulse oximetry 2022-07-01 17:05:00 93 /min [facility] Heart rate 2022-07-01 17:00:00 87 /min [facility] Respiratory rate 2022-07-01 17:00:00 15 /min [facility] Body temperature 2022-07-01 16:27:00 36.56 Laura [facility] Body height 2022-06-17 20:00:00 157.5 cm [facility] Body weight 2022-06-17 20:00:00 79.379 kg [facility] BMI 2022-06-17 20:00:00 32.01 kg/m2 [facility] Systolic blood pressure 2022-06-27 13:59:00 135 mm[Hg] [facility] Diastolic blood pressure 2022-06-27 13:59:00 79 mm[Hg] [facility] Heart rate 2022-06-27 13:59:00 80 /min [facility] Body height 2022-06-27 13:59:00 157.5 cm [facility] Body weight 2022-06-27 13:59:00 85.322 kg [facility] BMI 2022-06-27 13:59:00 34.40 kg/m2 [facility] Oxygen saturation in Arterial blood by Pulse oximetry 2022-06-27 13:59:00 95 /min [facility] Respiratory rate 2022-05-08 00:05:00 16 /min [facility] Oxygen saturation in Arterial blood by Pulse oximetry 2022-05-08 00:05:00 96 /min [facility] Systolic blood pressure 2022-05-07 22:20:00 138 mm[Hg] [facility] Diastolic blood pressure 2022-05-07 22:20:00 82 mm[Hg] [facility] Heart rate 2022-05-07 22:20:00 78 /min [facility] Body temperature 2022-05-07 22:20:00 37.06 Laura [facility] Body height 2022-05-07 22:20:00 157.5 cm [facility] Body weight 2022-05-07 22:20:00 81.647 kg [facility] BMI 2022-05-07 22:20:00 32.92 kg/m2 [facility] Body height 2022-05-02 16:21:00 157.5 cm [facility] Body weight 2022-05-02 16:21:00 82.373 kg [facility] BMI 2022-05-02 16:21:00 33.22 kg/m2 [facility] Systolic blood pressure 2022-04-23 14:33:00 138 mm[Hg] [facility] Diastolic blood pressure 2022-04-23 14:33:00 85 mm[Hg] [facility] Heart rate 2022-04-23 14:33:00 77 /min [facility] Respiratory rate 2022-04-23 14:33:00 18 /min [facility] Body height 2022-04-23 14:33:00 157.5 cm [facility] Body weight 2022-04-23 14:33:00 85.276 kg [facility] BMI 2022-04-23 14:33:00 34.39 kg/m2 [facility] Systolic blood pressure 2022-04-10 20:23:00 149 mm[Hg] [facility] Diastolic blood pressure 2022-04-10 20:23:00 86 mm[Hg] [facility] Heart rate 2022-04-10 20:23:00 84 /min [facility] Body height 2022-04-10 20:14:00 157.5 cm [facility] Body weight 2022-04-10 20:14:00 85.186 kg [facility] BMI 2022-04-10 20:14:00 34.35 kg/m2 [facility] Body Temperature 2019-02-24 19:15:00 98.0 [degF] [facility] Heart Rate 2019-02-24 19:15:00 94 /min [facility] Respiratory rate 2019-02-24 19:15:00 20 /min [facility] Systolic 2019-02-24 19:15:00 134 mm[Hg[facility] 2019-02-24 19:15:00 71 mm[Hg] [facility] Heart Rate 2019-02-24 18:32:00 94 /min [facility] Respiratory rate 2019-02-24 18:32:00 20 /min [facility] BP Systolic 2019-02-24 18:32:00 134 mm[Hg] [facility] Diastolic 2019-02-24 18:32:00 71 mm[Hg] [facility] Weight 2019-02-24 18:32:00 180 [lb_av] [facility] BMI (Body Mass Index) 2019-02-24 18:32:00 32.9 kg/m2 [facility] Procedures Procedure Date / Time Performed Performing Clinician Source XR HIPS 2 VW LEFT 2023-01-24 21:47:30 Italia Randall [facility] ASSIGNMENT OF BENEFITS 2022-08-16 19:48:32 Docto r Unassigned, [place] [facility] URIC ACID 2022-08-16 19:29:00 Juan Rodas [facility] BASIC METABOLIC PANEL (NA, K, CL, CO2, GLUCOSE, BUN, CREATININE, CA) 2022-08-16 19:29:00 Juan Rodas [facility] SEDIMENTATION RATE 2022-08-16 19:29:00 Blade Rodas [facility] CBC WITH DIFF 2022-08-16 19:29:00 Juan Rodas [facility] XR KNEE 3 VW RIGHT 2022-08-16 19:22:07 Blade Rodas [facility] CONSENT/REFUSAL FOR DIAGNOSIS AND TREATMENT 2022-08-16 18:10:34 Doctor Unassigned, [place] [facility] BASIC METABOLIC PANEL (NA, K, CL, CO2, GLUCOSE, BUN, CREATININE, CA) 2022-08-06 22:45:00 Merlin Hidalgo [facility] SEDIMENTATION RATE 2022-08-06 22:45:00 Merlin Hidalgo [facility] CBC WITH DIFF 2022-08-06 22:45:00 Merlin Hidalgo [facility] CONSENT/REFUSAL FOR DIAGNOSIS AND TREATMENT 2022-08-06 22:07:47 Doctor Unassigned, [place] [facility] CBC WITH DIFF 2022-07-04 15:23:00 Daniel Bal [facility] CONSENT/REFUSAL FOR DIAGNOSIS AND TREATMENT 2022-07-02 01:22:31 Doctor Unassigned, [place] [facility] XR KNEE <3 VW RIGHT 2022-07-01 17:28:16 Alicia Heath [facility] TOTAL KNEE ARTHROPLASTY 2022-07-01 14:03:00 Clover Heath [facility] URINALYSIS 2022-07-01 12:54:00 Clover Heath [facility] URINALYSIS 2022-07-01 12:54:00 Clover Heath [facility] DSU PRE-OP 2022-07-01 05:01:00 Doctor Unass igned, [place] [facility] INSURANCE CORRESPONDENCE 2022-06-19 05:01:00 Doc tor Unassigned, [place] [facility] EXTERNAL PROVIDER RECORDS 2022-06-06 05:01:00 Do ctor Unassigned, [place] [facility] ASSIGNMENT OF BENEFITS 2022-06-05 16:10:34 Docto r Unassigned, [place] [facility] XR CHEST 2 VW 2022-06-03 15:31:39 [facility] 2022-06-03 14:39:37 Docto r Unassigned, [place] [facility] INSURANCE CORRESPONDENCE 2022-05-17 05:01:00 Doc tor Unassigned, [place] [facility] RAPID INFLUENZA A/B 2022-05-07 22:58:00 Marylou Soria [facility] COVID-19 (ID NOW RAPID TESTING) 2022-05-07 22:58:00 Marylou Soria [facility] DSU PRE-OP 2022-05-06 06:01:00 Doctor Unass igned, [place] [facility] ASSIGNMENT OF BENEFITS 2022-04-10 20:09:33 Docto r Unassigned, [place] [facility] INSURANCE CORRESPONDENCE 2021-05-12 06:01:00 Doc tor Unassigned, [place] [facility] Plan of Care Planned Activity Planned Date Details Comments Source Future Scheduled Test 2022-12-26 06:21:32 Screening for malignant neoplasm of colon (procedure) [code = [id number]] [facility] Future Scheduled Test 2022-12-26 06:21:32 Screening for malignant neoplasm of colon (procedure) [code = 754851233] [facility] Future Scheduled Test 2022-12-26 06:21:32 Screening for malignant neoplasm of colon (procedure) [code = 309392871] [facility] Future Scheduled Test 2022-12-26 06:21:32 Screening for malignant neoplasm of cervix (procedure) [code = 789589707] [facility] Future Scheduled Test 2022-12-26 06:21:32 BREAST CANCER SCREENING [code = BREAST CANCER SCREENING] [facility] Future Scheduled Test 2022-12-26 06:21:32 Screening for malignant neoplasm of colon (procedure) [code = 287545718] [facility] Future Scheduled Test 2022-12-26 06:21:32 Screening for malignant neoplasm of colon (procedure) [code = 510649234] [facility] Future Scheduled Test 2022-12-26 06:21:32 SHINGLES VACCINES (1 of 2) [code = SHINGLES VACCINES (1 of 2)] [facility] Future Scheduled Test 2022-12-26 06:21:32 COVID-19 VACCINE ( season) [code = COVID-19 VACCINE ( season)] [facility] Future Scheduled Test 2022-12-26 06:21:32 INFLUENZA VACCINE (#1) [code = INFLUENZA VACCINE (#1)] [facility] Future Scheduled Test 2022-12-12 15:32:47 Screening for malignant neoplasm of colon (procedure) [code = 479406654] [facility] Future Scheduled Test 2022-12-12 15:32:47 Screening for malignant neoplasm of colon (procedure) [code = 666265508] [facility] Future Scheduled Test 2022-12-12 15:32:47 Screening for malignant neoplasm of colon (procedure) [code = 388974664] [facility] Future Scheduled Test 2022-12-12 15:32:47 Screening for malignant neoplasm of cervix (procedure) [code = 943899685] [facility] Future Scheduled Test 2022-12-12 15:32:47 BREAST CANCER SCREENING [code = BREAST CANCER SCREENING] [facility] Future Scheduled Test 2022-12-12 15:32:47 Screening for malignant neoplasm of colon (procedure) [code = 862065107] [facility] Scheduled Test 2022-12-12 15:32:47 Screening for malignant neoplasm of colon (procedure) [code = 409918494] [facility] Scheduled Test 2022-12-12 15:32:47 SHINGLES VACCINES (1 of 2) [code = SHINGLES VACCINES (1 of 2)] [facility] Future Scheduled Test 2022-12-12 15:32:47 RSV VACCINES > 60 YR (1 - 1-dose 60+ series) [code = RSV VACCINES > 60 YR (1 - 1-dose 60+ series)] [facility] Scheduled Test 2022-12-12 15:32:47 COVID-19 VACCINE ( season) [code = COVID-19 VACCINE ( season)] [facility] Future Scheduled Test 2022-12-12 15:32:47 INFLUENZA VACCINE (#1) [code = INFLUENZA VACCINE (#1)] [facility] Future Scheduled Test 2022-10-03 12:30:30 Screening for malignant neoplasm of colon (procedure) [code = 791107272] [facility] Future Scheduled Test 2022-10-03 12:30:30 Screening for malignant neoplasm of colon (procedure) [code = 026890156] [facility] Future Scheduled Test 2022-10-03 12:30:30 Screening for malignant neoplasm of colon (procedure) [code = 303832606] [facility] Future Scheduled Test 2022-10-03 12:30:30 Screening for malignant neoplasm of cervix (procedure) [code = 744730204] [facility] Future Scheduled Test 2022-10-03 12:30:30 BREAST CANCER SCREENING [code = BREAST CANCER SCREENING] [facility] Future Scheduled Test 2022-10-03 12:30:30 Screening for malignant neoplasm of colon (procedure) [code = 588637915] [facility] Future Scheduled Test 2022-10-03 12:30:30 Screening for malignant neoplasm of colon (procedure) [code = 057518470] [facility] Scheduled Test 2022-10-03 12:30:30 SHINGLES VACCINES (1 of 2) [code = SHINGLES VACCINES (1 of 2)] [facility] Scheduled Test 2022-10-03 12:30:30 COVID-19 VACCINE (3 - Pfizer series) [code = COVID-19 VACCINE (3 - Pfizer series)] [facility] Scheduled Test 2022-10-03 12:30:30 INFLUENZA VACCINE [code = INFLUENZA VACCINE] [facility] Scheduled Test 2022-10-03 12:30:30 Screening for malignant neoplasm of colon (procedure) [code = 182013468] [facility] Scheduled Test 2022-10-03 12:30:30 Screening for malignant neoplasm of colon (procedure) [code = 692461353] [facility] Future Scheduled Test 2022-10-03 12:30:30 Screening for malignant neoplasm of colon (procedure) [code = 963496059] [facility] Scheduled Test 2022-10-03 12:30:30 Screening for malignant neoplasm of cervix (procedure) [code = 665613188] [facility] Future Scheduled Test 2022-10-03 12:30:30 BREAST CANCER SCREENING [code = BREAST CANCER SCREENING] [facility] Future Scheduled Test 2022-10-03 12:30:30 Screening for malignant neoplasm of colon (procedure) [code = 693517295] [facility] Future Scheduled Test 2022-10-03 12:30:30 Screening for malignant neoplasm of colon (procedure) [code = 665037327] [facility] Future Scheduled Test 2022-10-03 12:30:30 SHINGLES VACCINES (1 of 2) [code = SHINGLES VACCINES (1 of 2)] [facility] Future Scheduled Test 2022-10-03 12:30:30 COVID-19 VACCINE (3 - Pfizer series) [code = COVID-19 VACCINE (3 - Pfizer series)] [facility] Future Scheduled Test 2022-10-03 12:30:30 INFLUENZA VACCINE [code = INFLUENZA VACCINE] [facility] Future Scheduled Test 2022-10-03 12:30:30 Screening for malignant neoplasm of colon (procedure) [code = 142622020] [facility] Future Scheduled Test 2022-10-03 12:30:30 Screening for malignant neoplasm of colon (procedure) [code = 537191616] [facility] Future Scheduled Test 2022-10-03 12:30:30 Screening for malignant neoplasm of colon (procedure) [code = 264160430] [facility] Future Scheduled Test 2022-10-03 12:30:30 Screening for malignant neoplasm of cervix (procedure) [code = 626190961] [facility] Future Scheduled Test 2022-10-03 12:30:30 BREAST CANCER SCREENING [code = BREAST CANCER SCREENING] [facility] Future Scheduled Test 2022-10-03 12:30:30 Screening for malignant neoplasm of colon (procedure) [code = 429695636] [facility] Future Scheduled Test 2022-10-03 12:30:30 Screening for malignant neoplasm of colon (procedure) [code = 527370577] [facility] Scheduled Test 2022-10-03 12:30:30 SHINGLES VACCINES (1 of 2) [code = SHINGLES VACCINES (1 of 2)] [facility] Future Scheduled Test 2022-10-03 12:30:30 COVID-19 VACCINE (3 - Pfizer series) [code = COVID-19 VACCINE (3 - Pfizer series)] [facility] Future Scheduled Test 2022-10-03 12:30:30 INFLUENZA VACCINE [code = INFLUENZA VACCINE] [facility] Future Scheduled Test 2022-07-04 09:22:34 Screening for malignant neoplasm of cervix (procedure) [code = 657859182] [facility] Future Scheduled Test 2022-07-04 09:22:34 BREAST CANCER SCREENING [code = BREAST CANCER SCREENING] [facility] Future Scheduled Test 2022-07-04 09:22:34 COLONOSCOPY SCREENING [code = COLONOSCOPY SCREENING] [facility] Future Scheduled Test 2022-07-04 09:22:34 SHINGLES VACCINES (1 of 2) [code = SHINGLES VACCINES (1 of 2)] [facility] Future Scheduled Test 2022-07-04 09:22:34 COVID-19 VACCINE (3 - Booster for Pfizer series) [code = COVID-19 VACCINE (3 - Booster for Pfizer series)] [facility] Future Scheduled Test 2022-07-04 09:22:34 INFLUENZA VACCINE [code = INFLUENZA VACCINE] [facility] Future Scheduled Test 2022-06-06 22:09:49 Screening for malignant neoplasm of cervix (procedure) [code = 794947873] [facility] Future Scheduled Test 2022-06-06 22:09:49 BREAST CANCER SCREENING [code = BREAST CANCER SCREENING] [facility] Future Scheduled Test 2022-06-06 22:09:49 COLONOSCOPY SCREENING [code = COLONOSCOPY SCREENING] [facility] Scheduled Test 2022-06-06 22:09:49 SHINGLES VACCINES (1 of 2) [code = SHINGLES VACCINES (1 of 2)] [facility] Future Scheduled Test 2022-06-06 22:09:49 COVID-19 VACCINE (3 - Booster for Pfizer series) [code = COVID-19 VACCINE (3 - Booster for Pfizer series)] [facility] Future Scheduled Test 2022-06-06 22:09:49 INFLUENZA VACCINE [code = INFLUENZA VACCINE] [facility] Scheduled Test 2022-04-16 10:44:07 COVID-19 VACCINE (#1) [code = COVID-19 VACCINE (#1)] [facility] Scheduled Test 2022-04-16 10:44:07 Pneumococcal Vaccine: Pediatrics (0 to 5 Years) and At-Risk Patients (6 to 64 Years) (1 - PCV) [code = Pneumococcal Vaccine: Pediatrics (0 to 5 Years) and At-Risk Patients (6 to 64 Years) (1 - PCV)] [facility] Future Scheduled Test 2022-04-16 10:44:07 Hepatitis C screening (procedure) [code = 343358019] [facility] Future Scheduled Test 2022-04-16 10:44:07 Screening for malignant neoplasm of cervix (procedure) [code = 863600043] [facility] Future Scheduled Test 2022-04-16 10:44:07 BREAST CANCER SCREENING [code = BREAST CANCER SCREENING] [facility] Future Scheduled Test 2022-04-16 10:44:07 COLONOSCOPY SCREENING [code = COLONOSCOPY SCREENING] [facility] Scheduled Test 2022-04-16 10:44:07 SHINGLES VACCINES (1 of 2) [code = SHINGLES VACCINES (1 of 2)] [facility] Future Scheduled Test 2022-04-16 10:44:07 INFLUENZA VACCINE [code = INFLUENZA VACCINE] [facility] Scheduled Test 2022-03-28 06:17:38 COVID-19 VACCINE (#1) [code = COVID-19 VACCINE (#1)] [facility] Scheduled Test 2022-03-28 06:17:38 Pneumococcal Vaccine: Pediatrics (0 to 5 Years) and At-Risk Patients (6 to 64 Years) (1 - PCV) [code = Pneumococcal Vaccine: Pediatrics (0 to 5 Years) and At-Risk Patients (6 to 64 Years) (1 - PCV)] [facility] Scheduled Test 2022-03-28 06:17:38 Hepatitis C screening (procedure) [code = 274934734] [facility] Scheduled Test 2022-03-28 06:17:38 Screening for malignant neoplasm of cervix (procedure) [code = 498559465] [facility] Scheduled Test 2022-03-28 06:17:38 BREAST CANCER SCREENING [code = BREAST CANCER SCREENING] [facility] Scheduled Test 2022-03-28 06:17:38 COLONOSCOPY SCREENING [code = COLONOSCOPY SCREENING] [facility] Scheduled Test 2022-03-28 06:17:38 SHINGLES VACCINES (1 of 2) [code = SHINGLES VACCINES (1 of 2)] [facility] Future Scheduled Test 2022-03-28 06:17:38 INFLUENZA VACCINE [code = INFLUENZA VACCINE] [facility] Scheduled Test 2022-02-21 20:21:57 COVID-19 VACCINE (#1) [code = COVID-19 VACCINE (#1)] [facility] Scheduled Test 2022-02-21 20:21:57 Pneumococcal Vaccine: Pediatrics (0 to 5 Years) and At-Risk Patients (6 to 64 Years) (1 - PCV) [code = Pneumococcal Vaccine: Pediatrics (0 to 5 Years) and At-Risk Patients (6 to 64 Years) (1 - PCV)] [facility] Scheduled Test 2022-02-21 20:21:57 Hepatitis C screening (procedure) [code = 890949904] [facility] Future Scheduled Test 2022-02-21 20:21:57 Screening for malignant neoplasm of cervix (procedure) [code = 226338835] [facility] Future Scheduled Test 2022-02-21 20:21:57 BREAST CANCER SCREENING [code = BREAST CANCER SCREENING] [facility] Future Scheduled Test 2022-02-21 20:21:57 COLONOSCOPY SCREENING [code = COLONOSCOPY SCREENING] [facility] Scheduled Test 2022-02-21 20:21:57 SHINGLES VACCINES (1 of 2) [code = SHINGLES VACCINES (1 of 2)] [facility] Future Scheduled Test 2022-02-21 20:21:57 INFLUENZA VACCINE [code = INFLUENZA VACCINE] [facility] Scheduled Test 2021-10-31 12:20:25 HEPATITIS B VACCINES (1 of 3 - 3-dose series) [code = HEPATITIS B VACCINES (1 of 3 - 3-dose series)] [facility] Scheduled Test 2021-10-31 12:20:25 COVID-19 VACCINE (#1) [code = COVID-19 VACCINE (#1)] [facility] Scheduled Test 2021-10-31 12:20:25 Pneumococcal Vaccine: Pediatrics (0 to 5 Years) and At-Risk Patients (6 to 64 Years) (1 - PCV) [code = Pneumococcal Vaccine: Pediatrics (0 to 5 Years) and At-Risk Patients (6 to 64 Years) (1 - PCV)] [facility] Scheduled Test 2021-10-31 12:20:25 Hepatitis C screening (procedure) [code = 554168536] [facility] Future Scheduled Test 2021-10-31 12:20:25 Screening for malignant neoplasm of cervix (procedure) [code = 616384976] [facility] Future Scheduled Test 2021-10-31 12:20:25 BREAST CANCER SCREENING [code = BREAST CANCER SCREENING] [facility] Future Scheduled Test 2021-10-31 12:20:25 COLONOSCOPY SCREENING [code = COLONOSCOPY SCREENING] [facility] Scheduled Test 2021-10-31 12:20:25 SHINGLES VACCINES (1 of 2) [code = SHINGLES VACCINES (1 of 2)] [facility] Future Scheduled Test 2021-10-31 12:20:25 INFLUENZA VACCINE [code = INFLUENZA VACCINE] [facility] Future Scheduled Test 2021-10-25 09:31:21 HEPATITIS B VACCINES (1 of 3 - 3-dose series) [code = HEPATITIS B VACCINES (1 of 3 - 3-dose series)] [facility] Future Scheduled Test 2021-10-25 09:31:21 COVID-19 VACCINE (#1) [code = COVID-19 VACCINE (#1)] [facility] Future Scheduled Test 2021-10-25 09:31:21 Pneumococcal Vaccine: Pediatrics (0 to 5 Years) and At-Risk Patients (6 to 64 Years) (1 - PCV) [code = Pneumococcal Vaccine: Pediatrics (0 to 5 Years) and At-Risk Patients (6 to 64 Years) (1 - PCV)] [facility] Future Scheduled Test 2021-10-25 09:31:21 Hepatitis C screening (procedure) [code = 530255752] [facility] Future Scheduled Test 2021-10-25 09:31:21 Screening for malignant neoplasm of cervix (procedure) [code = 949186730] [facility] Future Scheduled Test 2021-10-25 09:31:21 BREAST CANCER SCREENING [code = BREAST CANCER SCREENING] [facility] Future Scheduled Test 2021-10-25 09:31:21 COLONOSCOPY SCREENING [code = COLONOSCOPY SCREENING] [facility] Future Scheduled Test 2021-10-25 09:31:21 SHINGLES VACCINES (1 of 2) [code = SHINGLES VACCINES (1 of 2)] [facility] Future Scheduled Test 2021-10-25 09:31:21 INFLUENZA VACCINE [code = INFLUENZA VACCINE] [facility] Future Scheduled Test Streptococ cus pyogenes culture [code = 67783-0] [facility] Goal Patient referral [code = 0111794 ] [facility] Instructions Eustachian Tube Problems [facility] Instructions Eustachian Tube Problems (DC) [facility] Encounters Start Date/Time End Date/Time Encounter Type Admission Type Attending Clinicians Care Facility Care Department Encounter ID Source 2022-05-28 15:05:28 Outpatient CLOVER AREVALO [facility] [id number] [facility] 2021-04-05 13:48:24 Outpatient CLOVER AREVALO [facility] SOR [id number] [facility] 2021-03-14 11:49:06 Outpatient R CLOVER HEATH [facility] SOR [id number] [facility] 2020-12-30 16:14:45 Emergency [facility] [id number] [facility] 2020-12-30 05:54:41 Emergency [facility] [id number] [facility] 2023-01-30 08:00:00 2023-01-30 08:15:00 Office Visit Clover Heath [facility] 1.2.840.114 350.1.13.10 4.2.7.2.686 [id number] [facility] 2023-01-30 08:00:00 2023-01-30 08:00:00 Outpatient R CLOVER HEATH CRAIG [facility] [id number] [facility] 2023-01-24 15:30:04 2023-01-24 23:59:00 Hospital Encounter Italia Randall [facility] 1.2.840.114 350.1.13.10 4.2.7.2.686 [id number] [facility] 2023-01-24 15:00:00 2023-01-24 15:39:55 Outpatient R ITALIA RANDALL [facility] [id number] [facility] 2023-01-24 15:00:00 2023-01-24 15:20:00 Urgent Care Prakash Italia Aquiles, Attending [facility] 1.2.840.114 350.1.13.10 4.2.7.2.686 [id number] [facility] 2022-09-10 13:02:49 2022-09-10 23:59:00 Outpatient R DANIEL BAL [facility] [id number] [facility] 2022-09-10 13:00:00 2022-09-10 13:15:00 Office Visit Daniel Bal [facility] 1.2.840.114 350.1.13.10 4.2.7.2.686 [id number] [facility] 2022-08-22 08:30:00 2022-08-22 08:30:00 Outpatient R BALDANIEL [facility] [id number] [facility] 2022-08-16 13:26:00 2022-08-16 16:32:00 Emergency X JUAN RODAS [facility] ERT [id number] [facility] 2022-08-16 13:26:00 2022-08-16 16:32:00 Emergency Juan Rodas [facility] 1.2.840.114 350.1.13.10 4.2.7.2.686 [id number] [facility] 2022-08-16 00:00:00 2022-08-16 00:00:00 Telephone Clover Heath [facility] 1.2.840.114 350.1.13.10 4.2.7.2.686 [id number] [facility] 2022-08-15 13:00:00 2022-08-15 13:00:00 Outpatient R MALLY DANIEL [facility] [id number] [facility] 2022-08-09 08:30:00 2022-08-09 08:30:00 Office Visit Danilo Clover Mandujano [facility] 1.2.840.114 350.1.13.10 4.2.7.2.686 [id number] 198 [id number] [facility] 2022-08-09 08:30:00 2022-08-09 08:24:23 Outpatient R CLOVER HEATH [facility] [id number] [facility] 2022-08-07 00:00:00 2022-08-07 00:00:00 Telephone Clover Heath [facility] 1.2.840.114 350.1.13.10 4.2.7.2.686 [id number] 198 [id number] [facility] 2022-08-06 17:24:00 2022-08-06 19:24:00 Emergency X MERLIN HIDALGO [facility] ERT [id number] [facility] 2022-08-06 17:24:00 2022-08-06 19:24:00 Emergency Merlin Hidalgo [facility] 1.2.840.114 350.1.13.10 4.2.7.2.686 [id number] [facility] 2022-08-06 00:00:00 2022-08-06 00:00:00 Telephone [facility] 1.2.840.114 350.1.13.10 4.2.7.2.686 [id number] [facility] 2022-07-26 00:00:00 2022-07-26 00:00:00 Telephone Mally Daniel [facility] MED[facility] OFF[facility] BUILD[facility] 1.2.840.114 350.1.13.10 4.2.7.2.686 [id number] 198 [id number] [facility] 2022-07-25 00:00:00 2022-07-25 00:00:00 Telephone Bal Daniel [facility] CHRISTINA?[facility] MED[facility] OFFICE BUILD[facility] 1.2.840.114 350.1.13.10 4.2.7.2.686 [id number] [facility] 2022-07-15 14:16:48 2022-07-15 23:59:00 Outpatient R DANIEL BAL [facility] [id number] [facility] 2022-07-15 14:30:00 2022-07-15 14:45:00 Office Visit [facility] 1.840.114 350.1.13.10 4.2.7.2.686 [id number] 198 [id number] [facility] 2022-07-11 00:00:00 2022-07-11 00:00:00 Telephone Danilo Clover Mandujano [facility] CH[facility]INA?[facility] MED[facility] OFF[facility] BU[facility] 1.84.114 350.1.13.10 4.2.7.2.686 [id number] [facility] 2022-07-10 00:00:00 2022-07-10 00:00:00 [facility]phone [facility] 1.840.114 350.1.13.10 4.2.7.2.686 [id number] 198 [id number] [facility] 2022-07-08 14:15:00 2022-07-08 14:15:00 Outpatient R MALLY DANIEL [facility] [id number] [facility] 2022-07-05 00:00:00 2022-07-05 00:00:00 Telephone Mally [facility] CHRISTINA?[facility] 1..840.114 350.1.13.10 4.2.7.2.686 [id number] [facility] 2022-07-04 09:15:00 2022-07-04 11:49:40 Outpatient R MALLY DANIEL [facility] [id number] [facility] 2022-07-04 09:15:00 2022-07-04 11:49:40 Office Visit Mally [facility] CH[facility]STINA[facility] 1.2840.114 350.1.13.10 4.2.7.2.686 [id number] 198 [id number] [facility] 2022-07-04 10:30:00 2022-07-04 10:45:00 Motion Designer Visit Lab, Daniel [facility] 1.0.114 350.1.13.10 4.2.7.2.686 [id number] [facility] 2022-07-01 20:40:00 2022-07-02 01:05:00 Emergency X ESTELLA MARYLOU [facility] ERT [id number] [facility] 2022-07-01 20:40:00 2022-07-02 01:05:00 Emergency Marylou Soria [facility] 1..114 350.1.13.10 4.2.7.2.686 [id number] [facility] 2022-07-01 07:03:00 2022-07-01 14:55:00 Outpatient R CLOVER HEATH CRAIG [facility] SOR [id number] [facility] 2022-07-01 07:03:00 2022-07-01 14:55:00 Hospital Encounter Clover Heath [facility] 1..114 350.1.13.10 4.2.7.2.686 [id number] [facility] 2022-07-01 09:50:00 2022-07-01 12:08:00 Surgery Clover Heath [facility] 1..114 350.1.13.10 4.2.7.2.686 [id number] [facility] 2022-07-01 00:00:00 2022-07-01 00:00:00 Orders Only Doctor Unassigned, [place] [facility] 1.0.114 350.1.13.10 4.2.7.2.686 [id number] [facility] 2022-06-27 09:00:00 2022-06-27 09:15:00 Office Visit Daniel Bal [facility] OFF[facility] 1.84.114 350.1.13.10 4.2.7.2.686 [id number] 198 [id number] [facility] 2022-06-27 09:00:00 2022-06-27 09:00:00 Outpatient R DANIEL BAL [facility] [id number] [facility] 2022-06-24 13:45:00 2022-06-24 13:45:00 Outpatient R MALLY DANIEL [facility] [id number] [facility] 2022-06-20 00:00:00 2022-06-20 00:00:00 Telephone HeathIantracy Mandujano [facility] 1.84.114 350.1.13.10 4.2.7.2.686 [id number] [facility] 2022-06-19 00:00:00 2022-06-19 00:00:00 Telephone Danilo Clover Mandujano [facility] 1..114 350.1.13.10 4.2.7.2.686 [id number] 198 [id number] [facility] 2022-06-19 00:00:00 2022-06-19 00:00:00 Orders Only Doctor Unassigned, [place] [facility] 1.0.114 350.1.13.10 4.2.7.2.686 [id number] [facility] 2022-06-17 00:00:00 2022-06-17 00:00:00 Telephone Clover Heath [facility] OFF[facility] BUILD[facility] 1.84.114 350.1.13.10 4.2.7.2.686 [id number] 198 [id number] [facility] 2022-06-13 08:15:00 2022-06-13 08:15:00 Outpatient R DANIEL BAL [facility] [id number] [facility] 2022-06-06 00:00:00 2022-06-06 00:00:00 Telephone Daniel Bal [facility] 1.0.114 350.1.13.10 4.2.7.2.686 [id number] [facility] 2022-06-06 00:00:00 2022-06-06 00:00:00 Orders Only Doctor Unassigned, [place] [facility] 1.0.114 350.1.13.10 4.2.7.2.686 [id number] [facility] 2022-06-05 09:30:00 2022-06-05 09:45:00 Laboratory Only Only, Adc Test Clover Heath [facility] 1.0.114 350.1.13.10 4.2.7.2.686 [id number] [facility] 2022-06-05 09:30:00 2022-06-05 09:30:00 Outpatient R CLOVER HEATH [facility] [id number] [facility] 2022-06-05 00:00:00 2022-06-05 00:00:00 Orders Only Doctor Unassigned, [place] [facility] 1.0.114 350.1.13.10 4.2.7.2.686 [id number] [id number] [facility] 2022-06-05 00:00:00 2022-06-05 00:00:00 [facility] 1.0.114 350.1.13.10 4.2.7.2.686 [id number] [facility] 2022-06-03 09:45:00 2022-06-03 10:00:00 Motion Designer Visit Pob, Adc Lab Main Danilo Clover Mandujano [facility] PROFESSIO NAL BUILDING 1.2.840.114 350.1.13.10 4.2.7.2.686 [id number] [facility] 2022-06-03 09:52:23 2022-06-03 09:52:23 Outpatient R CLOVER HEATH [facility] [id number] [facility] 2022-06-03 09:52:23 2022-06-03 09:52:23 Hospital Encounter Danilo Clover Mandujano [facility] 1.2840.114 350.1.13.10 4.2.7.2.686 [id number] [facility] 2022-06-03 00:00:00 2022-06-03 00:00:00 Orders Only Doctor Unassigned, [place] [facility] 1.2840.114 350.1.13.10 4.2.7.2.686 [id number] [facility] 2022-05-28 00:00:00 2022-05-28 00:00:00 Telephone Clover Heath [facility] OFF[facility] BU[facility] 1.2.840.114 350.1.13.10 4.2.7.2.686 [id number] [facility] 2022-05-23 08:30:00 2022-05-23 08:30:00 Outpatient DANIEL SALMON [facility] [id number] [facility] 2022-05-21 09:20:00 2022-05-21 09:20:00 Outpatient FERNANDO CHAUDHARI [facility] [id number] [facility] 2022-05-21 08:40:00 2022-05-21 08:40:00 Outpatient TRUE CHINO [facility] [id number] [facility] 2022-05-17 00:00:00 2022-05-17 00:00:00 Orders Only Doctor Unassigned, [place] [facility] 1.84.114 350.1.13.10 4.2.7.2.686 [id number] [facility] 2022-05-09 00:00:00 2022-05-09 00:00:00 Outpatient CAL_Maxx_Calvin Mena AO AO [id number] [facility] 2022-05-09 00:00:00 2022-05-09 00:00:00 [facility] 1.840.114 350.1.13.10 4.2.7.2.686 [id number] 198 [id number] [facility] 2022-05-08 00:00:00 2022-05-08 00:00:00 [facility] 1.84.114 350.1.13.10 4.2.7.2.686 [id number] [facility] 2022-05-08 00:00:00 2022-05-08 00:00:00 Telephone Clover Heath [facility] 1.84.114 350.1.13.10 4.2.7.2.686 [id number] 198 [id number] [facility] 2022-05-07 16:23:00 2022-05-07 18:51:00 Emergency X MARYLOU SORIA [facility] ERT [id number] [facility] 2022-05-07 16:23:00 2022-05-07 18:51:00 Emergency Marylou Soria [facility] 1.84.114 350.1.13.10 4.2.7.2.686 [id number] [facility] 2022-05-07 00:00:00 2022-05-07 00:00:00 Prep For Surgery Daniel Bal [facility] 1.84.114 350.1.13.10 4.2.7.2.686 [id number] 198 [id number] [facility] 2022-05-06 00:00:00 2022-05-06 00:00:00 Orders Only Doctor Unassigned, [place] [facility] 1.84.114 350.1.13.10 4.2.7.2.686 [id number] [facility] 2022-05-02 11:15:00 2022-05-02 11:30:00 [facility] 1.840.114 350.1.13.10 4.2.7.2.686 [id number] 198 [id number] [facility] 2022-05-02 11:15:00 2022-05-02 11:12:40 Outpatient R MALLY DANIEL [facility] [id number] [facility] 2022-04-25 00:00:00 2022-04-25 00:00:00 Telephone Clover Heath [facility] 1.840.114 350.1.13.10 4.2.7.2.686 [id number] [facility] 2022-04-23 08:40:00 2022-04-23 13:00:21 Outpatient R TRUE LEIGH [facility] [id number] [facility] 2022-04-23 08:40:00 2022-04-23 09:20:00 Office Visit True Leigh [facility] 1.840.114 350.1.13.10 4.2.7.2.686 [id number] [facility] 2022-04-16 00:00:00 2022-04-16 00:00:00 Telephone Clover Heath [facility] 1.840.114 350.1.13.10 4.2.7.2.686 [id number] 198 [id number] [facility] 2022-04-10 14:45:00 2022-04-10 15:18:38 Outpatient R HEATHCLOVER [facility] [id number] [facility] 2022-04-10 14:45:00 2022-04-10 15:18:38 Office Visit Colver Heath [facility] OFF[facility] BUILD[facility] 1.840.114 350.1.13.10 4.2.7.2.686 [id number] [facility] 2022-04-10 00:00:00 2022-04-10 00:00:00 Orders Only Doctor Unassigned, [place] [facility] 1.84.114 350.1.13.10 4.2.7.2.686 [id number] [facility] 2022-04-08 14:00:00 2022-04-08 14:00:00 Outpatient R CLOVER HEATH [facility] [id number] [facility] 2021-12-27 08:30:00 2021-12-27 08:30:00 Outpatient R CLOVER HEATH [facility] [id number] [facility] 2021-12-24 14:45:00 2021-12-24 14:45:00 Outpatient R DANIEL BAL [facility] [id number] [facility] 2021-12-19 00:00:00 2021-12-19 00:00:00 Telephone Danilo [facility]over L [facility] 1.84.114 350.1.13.10 4.2.7.2.686 [id number] 198 [id number] [facility] 2021-11-25 00:00:00 2021-11-25 00:00:00 Outpatient FOG_Brown_Calvin Mena AOSM AO [id number] [facility] 2021-11-14 00:00:00 2021-11-14 00:00:00 Outpatient FOG_Brown_Calvin Mena AOSM AO [id number] [facility] 2021-11-11 00:00:00 2021-11-11 00:00:00 Outpatient FOG_Dipika Mena AOSM AO [id number] [facility] 2021-08-31 00:00:00 2021-08-31 00:00:00 Refill Daniel Bal [facility]ILD[facility] 1.2.840.114 350.1.13.10 4.2.7.2.686 [id number] 198 [id number] [facility] 2021-07-23 00:00:00 2021-07-23 00:00:00 Clover Barber [facility] BUILD[facility] 1.2.840.114 350.1.13.10 4.2.7.2.686 [id number] 198 [id number] [facility] 2021-06-06 10:52:00 2021-06-06 10:52:00 Outpatient FOG_Brown_Calvin Mena AOSM AO [id number] [facility] 2021-06-06 10:52:00 2021-06-06 10:52:00 Outpatient FOG_Brown_Calvin Mena AOSM AO [id number] [facility] 2021-06-06 00:00:00 2021-06-06 00:00:00 Outpatient FOG_Brown_Calvin Mena AO AO [id number] [facility] 2021-05-15 00:00:00 2021-05-15 00:00:00 Telephone [facility] 1..840.114 350.1.13.10 4.2.7.2.686 [id number] 198 [id number] [facility] 2021-05-12 00:00:00 2021-05-12 00:00:00 Orders Only Doctor Unassigned, [place] [facility] 1.840.114 350.1.13.10 4.2.7.2.686 [id number] [facility] 2021-05-11 10:45:00 2021-05-11 10:45:00 Outpatient DANIEL SALMON [facility] [id number] [facility] 2021-05-11 00:00:00 2021-05-11 00:00:00 Telephone [facility]over [facility] 1.840.114 350.1.13.10 4.2.7.2.686 [id number] [facility] 2021-05-08 00:00:00 2021-05-08 00:00:00 Telephone Clover Heath [facility] 1.840.114 350.1.13.10 4.2.7.2.686 [id number] [facility] 2021-05-07 00:00:00 2021-05-07 00:00:00 Telephone Clover Heath [facility] 1..840.114 350.1.13.10 4.2.7.2.686 [id number] [facility] 2021-04-27 09:00:00 2021-04-27 09:00:00 Outpatient R [facility] [id number] [facility] 2021-04-27 00:00:00 2021-04-27 00:00:00 Outpatient R [facility] [id number] [facility] 2021-04-23 13:30:00 2021-04-23 13:30:00 Outpatient R DANIEL BAL [facility] [id number] [facility] 2021-04-20 00:00:00 2021-04-20 00:00:00 Outpatient R [facility] [id number] [facility] 2021-04-20 00:00:00 2021-04-20 00:00:00 Telephone [place] [facility] 1.2.840.114 350.1.13.10 4.2.7.2.686 [id number] 198 [id number] [facility] 2021-04-17 00:00:00 2021-04-17 00:00:00 Telephone [place] [facility] 1.2.840.114 350.1.13.10 4.2.7.2.686 [id number] 198 [id number] [facility] 2021-04-17 00:00:00 2021-04-17 00:00:00 Telephone [place] [facility] 1.2.840.114 350.1.13.10 4.2.7.2.686 [id number] 198 [id number] [facility] 2021-04-11 00:00:00 2021-04-11 00:00:00 Telephone [place] [facility] 1.2.840.114 350.1.13.10 4.2.7.2.686 [id number] 198 [id number] [facility] 2021-04-11 00:00:00 2021-04-11 00:00:00 Telephone [place] [facility] 1.2.840.114 350.1.13.10 4.2.7.2.686 [id number] 198 [id number] [facility] 2021-04-06 08:15:00 2021-04-06 08:15:00 Outpatient R [facility] [id number] [facility] 2021-04-06 00:00:00 2021-04-06 00:00:00 Telephone [facility] 1.2.840.114 350.1.13.10 4.2.7.2.686 [id number] 198 [id number] [facility] 2021-04-05 13:15:00 2021-04-05 13:43:22 Outpatient R MALLY DANIEL [facility] [id number] [facility] 2021-04-05 13:15:00 2021-04-05 13:30:00 Office Visit Bal [facility] 1.2.840.114 350.1.13.10 4.2.7.2.686 [id number] [facility] 2021-04-05 13:15:00 2021-04-05 13:15:[address] [facility] [id number] [facility] 2021-04-05 00:00:00 2021-04-05 00:00:00 Letter (Out) Doctor Unassigned, [place] [address]..840.114 350.1.13.10 4.2.7.2.686 [id number] [facility] 2021-04-05 00:00:00 2021-04-05 00:00:00 Letter (Out) Doctor Unassigned, [place] [address].2.840.114 350.1.13.10 4.2.7.2.686 [id number] [facility] 2021-04-03 13:00:00 2021-04-03 13:00:00 Outpatient R DANIEL BAL [facility] [id number] [facility] 2021-04-02 10:30:00 2021-04-02 10:30:00 Outpatient R SHAKILA LUEVANO [facility] [id number] [facility] 2021-04-02 10:30:00 2021-04-02 10:30:00 [facility] [id number] [facility] 2021-03-29 13:00:00 2021-03-29 13:00:00 Outpatient R CLOVER HEATH [facility] [id number] [facility] 2021-03-29 00:00:00 2021-03-29 00:00:00 Refill [place] [facility] ..840.114 350.1.13.10 4.2.7.2.686 [id number] [facility] 2021-03-29 00:00:00 2021-03-29 00:00:00 Telephone [place] [facility] ..840.114 350.1.13.10 4.2.7.2.686 [id number] [facility] 2021-03-28 00:00:00 2021-03-28 00:00:00 Orders Only Doctor Unassigned, [place] [facility] 1.2.840.114 350.1.13.10 4.2.7.2.686 [id number] [id number] [facility] 2021-03-23 11:30:00 2021-03-23 11:30:00 Outpatient R CLOVER HEATH [facility] [id number] [facility] 2021-03-20 00:00:00 2021-03-20 00:00:00 Orders Only Doctor Unassigned, [place] [facility] 1.2840.114 350.1.13.10 4.2.7.2.686 [id number] [id number] [facility] 2021-03-16 00:00:00 2021-03-16 00:00:00 Telephone [place] [facility] 1..114 350.1.13.10 4.2.7.2.686 [id number] 198 [id number] [facility] 2021-03-15 13:00:00 2021-03-15 13:00:00 [facility] [id number] [facility] 2021-03-09 00:00:00 2021-03-09 00:00:00 Prep For Surgery [place] [facility] 1.0.114 350.1.13.10 4.2.7.2.686 [id number] [facility] 2021-03-05 14:15:00 2021-03-05 14:42:32 Outpatient R CLOVER HEATH [facility] [id number] [facility] 2021-03-05 14:15:00 2021-03-05 14:42:32 Office Visit [place] [facility] 1..114 350.1.13.10 4.2.7.2.686 [id number] [facility] 2021-03-05 00:00:00 2021-03-05 00:00:00 Orders Only Doctor Unassigned, [place] [facility] 1.2840.114 350.1.13.10 4.2.7.2.686 [id number] [id number] [facility] 2021-03-05 00:00:00 2021-03-05 00:00:00 [facility] [place] [facility] 1..840.114 350.1.13.10 4.2.7.2.686 [id number] [facility] 2021-02-12 13:45:00 2021-02-12 13:45:00 Outpatient R HEATH, [place] [facility] [id number] [facility] 2021-02-01 00:00:00 2021-02-01 00:00:00 Telephone [place] [facility] 1..840.114 350.1.13.10 4.2.7.2.686 [id number] [facility] 2021-01-29 00:00:00 2021-01-29 00:00:00 Telephone [place] [facility] 1..840.114 350.1.13.10 4.2.7.2.686 [id number] [facility] 2021-01-22 00:00:00 2021-01-22 00:00:00 Telephone Shakila Luevano [facility] 1..840.114 350.1.13.10 4.2.7.2.686 [id number] [id number] [facility] 2021-01-19 10:00:00 2021-01-19 23:59:00 Outpatient R SHAKILA LUEVANO [facility] [id number] [facility] 2021-01-19 09:54:13 2021-01-19 23:59:00 Hospital Encounter Shakila Luevano [facility] 1..840.114 350.1.13.10 4.2.7.2.686 [id number] [facility] 2021-01-19 10:00:00 2021-01-19 10:00:00 Outpatient R SHAKILA LUEVANO [facility] [id number] [facility] 2021-01-19 00:00:00 2021-01-19 00:00:00 Telephone Fernando Lopez [facility] 1.2.840.114 350.1.13.10 4.2.7.2.686 [id number] [id number] [facility] 2021-01-16 00:00:00 2021-01-16 00:00:00 Outpatient R SHAKILA LUEVANO [facility] [id number] [facility] 2021-01-16 00:00:00 2021-01-16 00:00:00 Outpatient R SHAKILA LUEVANO [facility] [id number] [facility] 2020-12-07 00:00:00 2020-12-07 00:00:00 Telephone Shakila Luevano [facility] 1.2.840.114 350.1.13.10 4.2.7.2.686 [id number] [facility] 2020-11-02 00:00:00 2020-11-02 00:00:00 Outpatient R SHAKILA LUEVANO [facility] [id number] [facility] 2020-10-03 00:00:00 2020-10-03 00:00:00 Outpatient R SHAKILA LUEVANO [facility] [id number] [facility] 2020-09-21 15:30:00 2020-09-21 15:32:11 Outpatient R SHAKILA LUEVANO [facility] [id number] [facility] 2020-09-21 14:55:58 2020-09-21 15:32:11 Office Visit Shakila Luevano [facility] 1.2.840.114 350.1.13.10 4.2.7.2.686 [id number] [facility] 2020-09-21 14:55:58 2020-09-21 15:32:11 Office Visit Shakila LuevanoAmaliaClif [facility] 1.2.840.114 350.1.13.10 4.2.7.2.686 [id number] [facility] 2020-09-21 15:30:00 2020-09-21 15:30:00 Outpatient R SHAKILA LUEVANO [facility] [id number] [facility] 2020-07-27 08:04:33 2020-07-27 23:59:00 Outpatient CLOVER HEATH [facility] [id number] [facility] 2020-07-27 08:04:33 2020-07-27 23:59:00 Hospital Encounter [place] [facility] [place] 1.2.840.114 350.1.13.10 4.2.7.2.686 [id number] [facility] 2020-07-27 07:51:51 2020-07-27 09:06:38 [facility] [place] 1.2.840.114 350.1.13.10 4.2.7.2.686 [id number] [facility] 2020-07-27 08:00:00 2020-07-27 08:00:00 Outpatient R DANIEL BAL [facility] [id number] [facility] 2020-07-27 00:00:00 2020-07-27 00:00:00 Telephone Mally [facility] [place] 1.2.840.114 350.1.13.10 4.2.7.2.686 [id number] [facility] 2020-07-11 14:00:00 2020-07-11 14:00:00 Outpatient DANIEL SALMON [facility] [id number] [facility] 2020-03-29 00:00:00 2020-03-29 00:00:00 Orders Only Doctor Unassigned, [place] [facility] 1.2.840.114 350.1.13.10 4.2.7.2.686 [id number] 2020-03-29 00:00:00 2020-03-29 00:00:00 Orders Only Doctor Unassigned, [place] [facility] 1.2.840.114 350.1.13.10 4.2.7.2.686 [id number] [facility] 2020-03-11 18:06:00 2020-03-11 18:59:00 [facility] 1.2.840.114 350.1.13.10 4.2.7.2.686 [id number] 2020-03-11 18:06:00 2020-03-11 18:59:00 [facility] 1.2.840.114 350.1.13.10 4.2.7.2.686 [id number] [facility] 2020-01-17 16:55:00 2020-01-17 19:20:[facility] 1.2.840.114 350.1.13.10 4.2.7.2.686 [id number] [id number] 2020-01-17 16:55:00 2020-01-17 19:20:00 [facility] 1.2.840.114 350.1.13.10 4.2.7.2.686 [id number] [facility] 2019-05-25 00:00:00 2019-05-25 00:00:00 Outpatient SIFFCARLOS [facility] [id number] [facility] 2019-05-25 00:00:00 2019-05-25 00:00:00 Outpatient SIFFCARLOS [facility] [id number] [facility] 2019-05-25 00:00:00 2019-05-25 00:00:00 Outpatient SIFCARLOS Calix [facility] [id number] 567 [facility] 2019-05-25 00:00:00 2019-05-25 00:00:00 Outpatient SIFFCARLOS [facility] [id number] 514 [facility] 2019-02-24 18:14:00 2019-02-24 19:15:00 Departed Emergency Room [facility] [id number] [address] [place], [place] [address] 2019-02-24 18:14:00 2019-02-24 19:15:00 Departed Emergency Room [facility] [id number] [address] [place] [address] 2019-02-10 18:48:57 2019-02-10 21:06:00 Emergency X [facility] ERT [id number] [facility] Results Test Description Test Time Test Comments Results Result Co mments Source [facility] (NA, K, CL, CO2, GLUCOSE, BUN, CREATININE, CA)2022-08-16 20:14:07* Test Item Value Reference Range Interpretation Comme nts NA (test code = 5593556796) 137 mmol/L 135-145 K (test code = 8964440739) 4.4 mmol/L 3.5-5.0 CL (test code = 2841509075) 106 mmol/L 98-108 CO2 TOTAL (test code = 1535082506) 22 mmol/L 23-31 L AGAP (test code = 1014824701) 9 2-16 BUN (test code = 9170984034) 15 mg/dL 7-23 GLUCOSE (test code = 9721201891) 111 mg/dL 70-110 H CREATININE (test code = 7524587831) 1.01 mg/dL 0.50-1.04 CALCIUM (test code = 9664080214) 9.4 mg/dL 8.6-10.6 eGFR (test code = 5526540253) 55.7 mL/min/1.73m2 SELAM (test code = SELAM) Association of [...] or abnormalities in imaging tests). Lab Interpretation (test code = 94166-1) Abnormal [facility] HospitalURIC [id number] 20:14:07* Test Item Value Reference Range Interpretation Comme nts URIC ACID (test code = 2540387864) 4.7 mg/dL 2.9-6.0 Lab Interpretation (test cod e = 01356-1) Normal [facility] WITH [id number] 19:56:20* Test Item Value Reference Range Interpretation Comme nts WBC (test code = 6690-2) 7.17 See_Comment [Automated [employer]] The system which generated this result transmitted reference range: 4.30 - 11.10 10*3/?L. The reference range was not used to interpret this result as normal/abnormal. RBC (test code = 789-8) 4.23 See_Comment [Automated [employer]] The system which generated this result transmitted reference range: 3.93 - 5.25 10*6/?L. The reference range was not used to interpret this result as normal/abnormal. HGB (test code = 718-7) 13.4 g/dL 11.6-15.0 HCT (test code = 4544-3) 39.7 % 35.7-45.2 MCV (test code = 787-2) 93.9 fL 80.6-95.5 MCH (test code = 785-6) 31.7 pg 25.9-32.8 MCHC (test code = 786-4) 33.8 g/dL 31.6-35.1 RDW-SD (test code = 78794-8) 47.5 fL 39.0-49.9 RDW-CV (test code = 788-0) 14.0 % 12.0-15.5 PLT (test code = 777-3) 312 See_Comment [Automated [employer]] The system which generated this result transmitted reference range: 166 - 358 10*3/?L. The reference range was not used to interpret this result as normal/abnormal. MPV (test code = 56806-0) 9.5 fL 9.5-12.9 NRBC/100 WBC (test code = 6971438938) 0.0 See_Comment [Automated [employer] ssage] The system which generated this result transmitted reference range: 0.0 - 10.0 /100 WBCs. The reference range was not used to interpret this result as normal/abnormal. NRBC x10^3 (test code = 9105653376) See_Comment [Automated [employer]] The system which generated this result transmitted reference range: 10*3/?L. The reference range was not used to interpret this result as normal/abnormal. GRAN MAT (NEUT) % (test code = 770-8) 55.5 % IMM GRAN % (test code = 1905841284) 0.60 % LYMPH % (test code = 736-9) 25.0 % MONO % (test code = 5905-5) 10.2 % EOS % (test code = 713-8) 6.6 % BASO % (test code = 706-2) 2.1 % GRAN MAT x10^3(ANC) (test code = 6331327796) 3.99 10*3/uL 1.88-7.09 IMM GRAN x10^3 (test code = 4161672966) 0.04 10*3/uL 0.00-0.06 LYMPH x10^3 (test code = 731-0) 1.79 10*3/uL 1.32-3.29 MONO x10^3 (test code = 742-7) 0.73 10*3/uL 0.33-0.92 EOS x10^3 (test code = 711-2) 0.47 10*3/uL 0.03-0.39 H BASO x10^3 (test code = 704-7) 0.15 10*3/uL 0.01-0.07 H Lab Interpretation (test code = 21060-3) Abnormal [facility] WITH [id number] 15:45:24* Test Item Value Reference Range Interpretation Comme nts WBC (test code = 6690-2) 10.54 See_Comment [Automated messa ge] The system which generated this result transmitted reference range: 4.30 - 11.10 10*3/?L. The reference range was not used to interpret this result as normal/abnormal. RBC (test code = 789-8) 3.76 See_Comment L [Automated messa ge] The system which generated this result transmitted reference range: 3.93 - 5.25 10*6/?L. The reference range was not used to interpret this result as normal/abnormal. HGB (test code = 718-7) 12.1 g/dL 11.6-15.0 HCT (test code = 4544-3) 35.7 % 35.7-45.2 MCV (test code = 787-2) 94.9 fL 80.6-95.5 MCH (test code = 785-6) 32.2 pg 25.9-32.8 MCHC (test code = 786-4) 33.9 g/dL 31.6-35.1 RDW-SD (test code = 05249-5) 48.2 fL 39.0-49.9 RDW-CV (test code = 788-0) 13.8 % 12.0-15.5 PLT (test code = 777-3) 266 See_Comment [Automated [employer]] The system which generated this result transmitted reference range: 166 - 358 10*3/?L. The reference range was not used to interpret this result as normal/abnormal. MPV (test code = 19095-2) 9.2 fL 9.5-12.9 L NRBC/100 WBC (test code = 9903137782) 0.0 See_Comment [Automated [employer] ssage] The system which generated this result transmitted reference range: 0.0 - 10.0 /100 WBCs. The reference range was not used to interpret this result as normal/abnormal. NRBC x10^3 (test code = 8847237970) See_Comment [Automated [employer]] The system which generated this result transmitted reference range: 10*3/?L. The reference range was not used to interpret this result as normal/abnormal. GRAN MAT (NEUT) % (test code = 770-8) 71.4 % IMM GRAN % (test code = 7214365866) 1.10 % LYMPH % (test code = 736-9) 13.3 % MONO % (test code = 5905-5) 11.8 % EOS % (test code = 713-8) 1.7 % BASO % (test code = 706-2) 0.7 % GRAN MAT x10^3(ANC) (test code = 5906744138) 7.53 10*3/uL 1.88-7.09 H IMM GRAN x10^3 (test code = 0645483291) 0.12 10*3/uL 0.00-0.06 H LYMPH x10^3 (test code = 731-0) 1.40 10*3/uL 1.32-3.29 MONO x10^3 (test code = 742-7) 1.24 10*3/uL 0.33-0.92 H EOS x10^3 (test code = 711-2) 0.18 10*3/uL 0.03-0.39 BASO x10^3 (test code = 704-7) 0.07 10*3/uL 0.01-0.07 Lab Interpretation (test code = 41298-0) Abnormal [facility] WITH [id number] 15:45:24* Test Item Value Reference Range Interpretation Comme nts WBC (test code = 6690-2) 10.54 See_Comment [Automated messa ge] The system which generated this result transmitted reference range: 4.30 - 11.10 10*3/?L. The reference range was not used to interpret this result as normal/abnormal. RBC (test code = 789-8) 3.76 See_Comment L [Automated messa ge] The system which generated this result transmitted reference range: 3.93 - 5.25 10*6/?L. The reference range was not used to interpret this result as normal/abnormal. HGB (test code = 718-7) 12.1 g/dL 11.6-15.0 HCT (test code = 4544-3) 35.7 % 35.7-45.2 MCV (test code = 787-2) 94.9 fL 80.6-95.5 MCH (test code = 785-6) 32.2 pg 25.9-32.8 MCHC (test code = 786-4) 33.9 g/dL 31.6-35.1 RDW-SD (test code = 57211-5) 48.2 fL 39.0-49.9 RDW-CV (test code = 788-0) 13.8 % 12.0-15.5 PLT (test code = 777-3) 266 See_Comment [Automated messa ge] The system which generated this result transmitted reference range: 166 - 358 10*3/?L. The reference range was not used to interpret this result as normal/abnormal. MPV (test code = 56973-6) 9.2 fL 9.5-12.9 L NRBC/100 WBC (test code = 2556711065) 0.0 See_Comment [Automated me ssage] The system which generated this result transmitted reference range: 0.0 - 10.0 /100 WBCs. The reference range was not used to interpret this result as normal/abnormal. NRBC x10^3 (test code = 0126510191) See_Comment [Automated messa ge] The system which generated this result transmitted reference range: 10*3/?L. The reference range was not used to interpret this result as normal/abnormal. GRAN MAT (NEUT) % (test code = 770-8) 71.4 % IMM GRAN % (test code = 5076270136) 1.10 % LYMPH % (test code = 736-9) 13.3 % MONO % (test code = 5905-5) 11.8 % EOS % (test code = 713-8) 1.7 % BASO % (test code = 706-2) 0.7 % GRAN MAT x10^3(ANC) (test code = 9287406251) 7.53 10*3/uL 1.88-7.09 H IMM GRAN x10^3 (test code = 4212053136) 0.12 10*3/uL 0.00-0.06 H LYMPH x10^3 (test code = 731-0) 1.40 10*3/uL 1.32-3.29 MONO x10^3 (test code = 742-7) 1.24 10*3/uL 0.33-0.92 H EOS x10^3 (test code = 711-2) 0.18 10*3/uL 0.03-0.39 BASO x10^3 (test code = 704-7) 0.07 10*3/uL 0.01-0.07 Lab Interpretation (test code = 43240-5) Abnormal [facility] Streptococcus pyogenes antigen [id number] 18:38:00* Test Item Value Reference Range Interpretation Comme nts Group A Streptococcus Screen (test code = 19119-3) Negative [facility] St[facility] pyogenes antigen [id number] 18:38:00* Test Item Value Reference Range Interpretation Comme nts Group A Streptococcus Screen (test code = 81369-7) Negative"
[2023-02-10] MEDS ORDERED: dexAMETHasone 10 MG/ML VIAL ONE (08:56)
[2023-02-10] MEDS ORDERED: KETOROLAC 30 MG/ML INJ ONE (08:57)
[2023-02-10 09:24] LABS: SARS-CoV-2 Antigen Rapid Res Negative (Negative)
--- NOTE | 2023-02-10 10:13 | ER ---
Nurse's Notes [facility] Name: Vicky Walker Age: 62 yrs Sex: Female : 1960 Arrival Date: 02/10/2023 Time: 07:51 Bed 10 Private MD: Rob Torres Diagnosis: Viral illness;Pain in throat Presentation: 02/10 08:03 Chief complaint: Sinus congestion, cough, sore throat, and chills x 3 days. On Bactrim hb for ear infection and bronchitis. Coronavirus screen: Client presents with at least one sign or symptom that may indicate coronavirus-19. Provider contacted for isolation considerations. Ebola Screen: No symptoms or risks identified at this time. Initial Sepsis Screen: Does the patient meet any 2 criteria? No. Patient's initial sepsis screen is negative. Does the patient have a suspected source of infection? No. Patient's initial sepsis screen is negative. Risk Assessment: Do you want to hurt yourself or someone else? Patient reports no desire to harm self or others. Onset of symptoms was February 08, 2023. 08:03 Method Of Arrival: Ambulatory hb 08:03 Acuity: PIYUSH 4 hb Historical: - Allergies: 08:05 PENICILLINS; hb - PMHx: 08:05 Anxiety; Anxiety; Chronic pain; GERD; Hypertension; psoriasis; hb - PSHx: 08:05 Cholecystectomy; hysterectomy; R knee replacement; hb - Immunization history:: Adult Immunizations up to date. - Social history:: Smoking status: Patient reports the use of cigarette tobacco products, smokes one-half pack cigarettes per day. Assessment: 08:50 Reassessment: Pt states she is not allergic to Toradol, removed from history. hb Vital Signs: 08:03 BP 122 / 76; Pulse 84; Resp 16; Temp 98.4(O); Pulse Ox 100% on R/A; hb ED Course: 07:53 Patient arrived in ED. mr 07:53 Rob Torres is Private Physician. mr 07:54 Kenton Thompson DO is Attending Physician. ms3 08:05 Triage completed. hb 08:05 Arm band placed on. hb 08:50 Strep Sent. hb 08:50 SARS RAPID Sent. hb 08:50 Flu Sent. hb 10:12 Rob Torres is Referral Physician. ms3 Administered Medications: 08:50 Not Given (Patient Refused): [id number] mg PO once hb 08:50 Drug: Dexamethasone IM 10 mg IM once Route: IM; Site: right ventrogluteal; hb 10:01 Follow up: Response: No adverse reaction hb 08:50 Drug: Ketorolac IM 15 mg IM once Route: IM; Site: left ventrogluteal; hb 10:01 Follow up: Response: No adverse reaction hb Outcome: 10:13 Discharge ordered by ms3 10:39 Patient left the ED. hb Signatures: Tracy Ya, Sal Reg mr Dianne Hunt, RN RN hb Kenton Thompson DO DO ms3 Corrections: (The following items were deleted from the chart) 08:50 08:05 Allergies: Toradol; hb hb
--- NOTE | 2023-02-10 10:13 | EDPHYS ---
Physician Documentation [facility] Name: Vicky Walker Age: 62 yrs Sex: Female : 1960 Arrival Date: 02/10/2023 Time: 07:51 Bed 10 Private MD: Rob Torres ED Physician Kenton Thompson HPI: 02/10 08:29 This 62 yrs old Female presents to ER via Ambulatory with complaints of Sore Throat, ms3 Fever. 08:29 62-year-old female with past medical history of anxiety, chronic pain, GERD, ms3 hypertension, psoriasis presents to the emergency department for throat pain, cough that began yesterday. Patient rates her pain a 10/10. Patient denies any alleviating factors. Patient states pain is worse with swallowing.. Historical: - Allergies: 08:05 PENICILLINS; hb - PMHx: 08:05 Anxiety; Anxiety; Chronic pain; GERD; Hypertension; psoriasis; hb - PSHx: 08:05 Cholecystectomy; hysterectomy; R knee replacement; hb - Immunization history:: Adult Immunizations up to date. - Social history:: Smoking status: Patient reports the use of cigarette tobacco products, smokes one-half pack cigarettes per day. ROS: 08:29 Constitutional: Negative for fever, and chills. Neck: Negative for injury, pain, and ms3 swelling, Cardiovascular: Negative for chest pain, and palpitations. 08:29 Abdomen/GI: Negative for abdominal pain, nausea, vomiting, diarrhea, and constipation, MS/Extremity: Negative for injury and deformity, Skin: Negative for injury, rash, and discoloration, 08:29 Respiratory: Positive for cough, 08:29 All other systems are negative, Exam: 08:29 Constitutional: This is a well developed, well nourished patient who is awake, alert, ms3 and in no acute distress. Neck: Trachea midline, no cervical lymphadenopathy. Supple, full range of motion without nuchal rigidity, or vertebral point tenderness. No Meningismus. Chest/axilla: Normal chest wall appearance and motion. Nontender with no deformity. Cardiovascular: Regular rate and rhythm with a normal S1 and S2. No gallops, murmurs, or rubs. Normal PMI, no JVD. No pulse deficits. Respiratory: Lungs have equal breath sounds bilaterally, clear to auscultation and percussion. No rales, rhonchi or wheezes noted. No increased work of breathing, no retractions or nasal flaring. Skin: Warm, dry with normal turgor. Normal color with no rashes, no lesions, and no evidence of cellulitis. 08:29 ENT: Posterior pharynx: Tonsils: are normal in appearance, Uvula: midline, swelling, is not appreciated, erythema, that is moderate, peritonsillar mass, is not appreciated, pooling of secretions, is not appreciated, Vital Signs: 08:03 BP 122 / 76; Pulse 84; Resp 16; Temp 98.4(O); Pulse Ox 100% on R/A; hb MDM: 08:28 Patient medically screened. ms3 08:29 Differential diagnosis: influenza, pharyngitis, tonsillitis, viral syndrome. ms3 08:50 ED course: Patient states she listed Toradol as an allergy because she thought she ms3 would be given Toradol for her throat pain and would like [place] instead.. 10:13 Data reviewed: vital signs, nurses notes, lab test result(s), and as a result, I will ms3 discharge patient. I considered the following discharge prescriptions or medication management in the emergency department Medications were administered in the Emergency Department. See MAR. Counseling: I had a detailed discussion with the patient and/or guardian regarding the historical points, exam findings, and any diagnostic results supporting the discharge/admit diagnosis, lab results, the need for outpatient follow up, to return to the emergency department if symptoms worsen or persist or if there are any questions or concerns that arise at home. Special discussion: I discussed with the patient/guardian in detail that at this point there is no indication for admission to the hospital. It is understood, however, that if the symptoms persist or worsen the patient needs to return immediately for re-evaluation. ED course: Discussed labs with patient. Patient requesting pain medication to go home with. I discussed Tylenol and ibuprofen treatment and offered 600 mg ibuprofen the patient. Patient declined stating ibuprofen does not work for her and she has 100s of those at home. Patient requesting Tylenol 3 prescription. Discussed with patient narcotics are not recommended for pharyngitis. Patient to follow-up with her primary care physician in 2 to 3 days. Patient understands and agrees with plan. All questions were answered. Return precautions discussed include worsening symptoms, or any other concerns. On reevaluation patient is alert and oriented x 4, no apparent distress, nontoxic-appearing, ambulatory in the emergency department, speaking full sentences. 02/10 08:29 Order name: Flu; Complete Time: 10:03 ms3 02/10 08:29 Order name: SARS RAPID; Complete Time: 10:03 ms3 02/10 08:29 Order name: Strep ms3 02/10 09:28 Order name: Throat Culture EDMS Administered Medications: 08:50 Not Given (Patient Refused): [id number] mg PO once hb 08:50 Drug: Dexamethasone IM 10 mg IM once Route: IM; Site: right ventrogluteal; hb 10:01 Follow up: Response: No adverse reaction hb 08:50 Drug: Ketorolac IM 15 mg IM once Route: IM; Site: left ventrogluteal; hb 10:01 Follow up: Response: No adverse reaction hb Disposition Summary: 02/10/23 10:13 Discharge Ordered Notes: Location: Home ms3 Condition: Stable ms3 Diagnosis - Viral illness ms3 - Pain in throat ms3 Followup: ms3 - With: Rob Torres - When: 2 - 3 days - Reason: Recheck today's complaints Discharge Instructions: - Discharge Summary Sheet ms3 - Sore Throat, [id number] ms3 Forms: - Medication Reconciliation Form ms3 - Thank You Letter ms3 - Antibiotic Education ms3 - Prescription Opioid Use ms3 - Patient Portal Instructions ms3 - Leadership Thank You Letter ms3 Signatures: Dispatcher [employer] Dianne Rios RN RN hb Sims, Marcus, DO DO ms3 Corrections: (The following items were deleted from the chart) 08:50 08:05 Allergies: Toradol; hb hb
[2023-02-10 10:43] VITALS: BP 122/76; TEMP 98.4; O2SAT 100
== END 2023-02-10 10:39 | disposition home or self-care (01) ==
LOC: ER 07:51
DX: B34.9 Viral infection, unspecified (principal); Z11.52 Encounter for screening for COVID-19; I10 Essential (primary) hypertension; F17.210 Nicotine dependence, cigarettes, uncomplicated; Z88.0 Allergy status to penicillin
CPT/HCPCS: 87070; 36415; 87081; 87804 ×2; 96372; 99284; 87811; J1100

== ENCOUNTER 2023-02-14 08:08 | Day surgery (SDC) | payer OTHER ==
[2023-02-12 10:53] LABS: Potassium 4.2 mEq/L (3.5-5.1)
[2023-02-14] MEDS ORDERED: Ringers Lactate 1,000 ML IV ONE (09:41)
[2023-02-14] MEDS ORDERED: propofoL 200 MG/20 ML VIAL IV ONE (11:18)
[2023-02-14] MEDS ORDERED: MIDAZOLAM HCL 2 MG/2 ML INJ ONE (11:18)
[2023-02-14] MEDS ORDERED: LIDOCAINE 1% MPF 5 ML VIAL ONE (11:18)
[2023-02-14] MEDS: ACETAMINOPHEN 500 MG TAB ONE ×2 (11:22→11:39)
[2023-02-14] MEDS ORDERED: OFLOXACIN OPH 0.3%-5 ML BTL ONE (11:56)
[2023-02-14] MEDS ORDERED: OXYMETAZOLINE HCL 0.05% 15ML NAS ONE (11:56)
[2023-02-14] MEDS ORDERED: ONDANSETRON 4 MG/2 ML VIAL ONE (12:20)
--- NOTE | 2023-02-14 13:06 | P.OP ---
Date of Service: 02/14/23 Preoperative diagnosis: Recurrent acute otitis media Postoperative diagnosis: Same Procedure: bilateral myringotomy and tympanostomy tube placement Surgeon: Sonja Michael MD Employee'S Representative: Penny Anesthesia: General via inhalational mask Estimated blood loss: Nil Fluids/blood products: None Specimen: None Implants: Paparella type I tubes Findings: No active middle ear disease Indication: The patient had persistent symptoms and abnormal findings in spite of good medical management. Details of operation: The patient was brought to the operating room and placed under general anesthesia via inhalational mask. The left ear was visualized under the operating microscope with assistance of an ear speculum. Cerumen was removed from the canal using a wire curette. A myringotomy incision was made in the anterior-inferior quadrant and no fluid was aspirated from the middle ear space. A Paparella type I tube was positioned across the incision using an alligator forcep and pick. A similar procedure was performed on the right side. Cerumen was removed from the canal using a wire curette. A myringotomy incision was made in the anterior-inferior quadrant and no fluid was aspirated from the middle ear space. A Paparella type I tube was positioned across the incision using an alligator forcep and pick. The procedure was concluded and the patient was awakened from anesthesia and transported to the recovery room in stable condition. Disposition the patient will be discharged home later today in the care of their family and follow-up with Dr. Michael's office in approximately 1 to 2 weeks. The PACU nurse reported the patient is complaining of 10 out of 10 pain including stabbing pain in the right ear while in the recovery room. Will plan for tramadol over the weekend and reassess at postoperative evaluation.
[2023-02-14] MEDS ORDERED: HYDROCODONE/APAP 5/325 MG TAB ONE (13:26)
[2023-02-14 15:08] VITALS: BP 104/60; TEMP 97.6; O2SAT 98
--- NOTE | 2023-02-14 15:27 | EKG ---
Test Date: 2023-02-12 Test Time: 11:26:38 Director Treasurer: ARIELA MEASUREMENT RESULTS: Intervals: Rate: 73 CO: 130 QRSD: 80 QT: 390 QTc: 429 [place]: P: 71 CO: 130 QRS: 69 T: 62 INTERPRETIVE STATEMENTS: Normal sinus rhythm Normal ECG Compared to ECG 06/13/2018 15:24:13 No significant changes Electronically Signed On 02-14-23 15:21:07 OIL REFINERY OPERATOR by Seymour Aparicio
== END 2023-02-14 13:48 | disposition home or self-care (01) ==
LOC: OR 08:08
PROVIDERS: ATTEND Otolaryngology
PROC: 099570Z Drainage of Right Middle Ear with Drainage Device, Via Natural or Artificial Opening (ICD-10-PCS; 2023-02-14)
PROC: 099670Z Drainage of Left Middle Ear with Drainage Device, Via Natural or Artificial Opening (ICD-10-PCS; principal; 2023-02-14 10:00)
DX: H66.006 Acute suppurative otitis media without spontaneous rupture of ear drum, recurrent, bilateral (principal); H90.3 Sensorineural hearing loss, bilateral; H93.293 Other abnormal auditory perceptions, bilateral; H93.233 Hyperacusis, bilateral; I10 Essential (primary) hypertension; J44.9 Chronic obstructive pulmonary disease, unspecified; F17.210 Nicotine dependence, cigarettes, uncomplicated; F41.9 Anxiety disorder, unspecified; E66.9 Obesity, unspecified; K21.9 Gastro-esophageal reflux disease without esophagitis; M19.90 Unspecified osteoarthritis, unspecified site
CPT/HCPCS: 93005; 80048; 36415; 69436; J2704; J2001; J2250; J2405; J7120

== ENCOUNTER → 2023-04-04 | Emergency (ER) | payer OTHER ==
[~2023-04-04] MED LIST: ALPRAZOLAM 1 MG TABLET ONE; MORPHINE 4 MG/ML SYR ONE; NITROGLYCERIN 0.4 MG/TAB SL ONE; ONDANSETRON 4 MG/2 ML VIAL ONE
[2023-04-04 20:24] LABS: Absolute Lymphocytes (CBC) 1.2 K/uL (0.7-4.9); Hematocrit 40.4 % (36.0-45.0); Lymphocytes % 11.7 % (15.3-44.8); MCV 92.2 fL (80-100); MPV 7.1 fL (7.6-11.3); Platelets 330 thou/uL (152-406); RBC Red Blood Cell Count 4.38 M/uL (3.86-4.86)
[2023-04-04 20:29] LABS: Protime INR 0.95
[2023-04-04 20:44] LABS: ALT/SGPT 20 U/L (13-56); AST/SGOT 8 U/L (15-37); Albumin 3.4 g/dL (3.4-5.0); Alkaline Phosphatase 77 U/L (45-117); BUN Blood Urea Nitrogen 14 mg/dL (7-18); Bicarbonate 22 mEq/L (21-32); Bilirubin Total 0.2 mg/dL (0.2-1.0); Glomerular Filtration Rate 73 ml/min (=/>90); Glucose Level 144 mg/dL (74-106); NT PRO-BNP 267 pg/mL (<125); Potassium 3.5 mEq/L (3.5-5.1); Protein, Total 6.7 g/dL (6.4-8.2); Sodium Level 135 mEq/L (136-145); Troponin High Sensitivity 16.7 pg/mL (<58.9)
--- NOTE | 2023-04-04 20:53 | RAD REPORT ---
EXAM DESCRIPTION: Michele Single View04/04/2023 8:30 pm CLINICAL HISTORY: Chest pain COMPARISON: 2022 FINDINGS: The lungs appear clear of acute infiltrate. The heart is normal size IMPRESSION: No acute abnormalities displayed
[2023-04-04 21:00] LABS: Bilirubin Direct < 0.1 mg/dL (0-0.2); Bilirubin Indirect, Calculated ND mg/dL (0.2-0.8)
--- NOTE | 2023-04-04 21:27 | EDPHYS ---
Physician Documentation [facility] Name: Vciky Walker Age: 62 yrs Sex: Female : 1960 Arrival Date: 04/04/2023 Time: 19:56 Bed IW9 Private MD: ED Physician Kenton Thompson HPI: 04/04 20:08 This 62 yrs old Female presents to ER via Unassigned with complaints of chest pain. sb4 20:08 The patient or guardian reports chest pain that is located primarily in the substernal sb4 area. Onset: 4 day(s) ago. The pain radiates to the left scapula. Associated signs and symptoms: Pertinent positives: nausea, shortness of breath. The chest pain is described as a heaviness. Modifying factors: The symptoms are alleviated by nothing. the symptoms are aggravated by emotionally stressful situations. EMS care prior to arrival includes: aspirin. The patient has not experienced similar symptoms in the past. The patient has not recently seen a physician. Historical: - Allergies: 20:00 PENICILLINS; jw7 - Home Meds: 20:00 Flonase 50 mcg/actuation Nasal spsn 1 spray 2 times per day [Active]; gabapentin Oral jw7 [Active]; lisinopril 10 mg Oral tab [Active]; loratadine 10 mg Oral tab 1 tab once daily [Active]; Xanax 1 mg Oral tab 1 tab 3 times per day [Active]; Albuterol Nebulizer [Active]; Symbicort inhalation [Active]; - PMHx: 20:00 Anxiety; Chronic pain; GERD; Hypertension; psoriasis; jw7 - PSHx: 20:00 Cholecystectomy; hysterectomy; R knee replacement; jw7 - Immunization history:: Adult Immunizations up to date, Client reports receiving the 2nd dose of the Covid vaccine, Last tetanus immunization: < 10 years ago Flu vaccine is up to date. - Social history:: Smoking status: Patient reports the use of cigarette tobacco products, smokes one-half pack cigarettes per day, Patient/guardian denies using alcohol, street drugs, IV drugs. ROS: 20:08 Constitutional: Negative for fever, chills, and weight loss, sb4 20:08 Cardiovascular: Positive for chest pain, 20:08 Respiratory: Positive for shortness of breath, 20:08 All other systems are negative, Exam: 20:08 Head/Face: Normocephalic, atraumatic. Eyes: Extra-ocular motions intact. Periorbital sb4 areas with no swelling, redness, or edema. ENT: Mucous membranes moist. Cardiovascular: Regular rate and rhythm with a normal S1 and S2. Respiratory: Lungs have equal breath sounds bilaterally, clear to auscultation and percussion. No rales, rhonchi or wheezes noted. No increased work of breathing, no retractions or nasal flaring. Abdomen/GI: Soft, non-tender, no distension. Skin: Warm, dry with normal turgor. Normal color with no rashes, no lesions, and no evidence of cellulitis. MS/ Extremity: Pulses equal, no cyanosis. Neurovascular intact. Full, normal range of motion. Neuro: Awake and alert, GCS 15, oriented to person, place, time, and situation. Motor strength 5/5 in all extremities. Sensory grossly intact. 20:08 Constitutional: The patient appears alert, awake, anxious, obese, Vital Signs: 19:57 BP 123 / 76; Pulse 107; Resp 13 S; Temp 98.7(TE); Pulse Ox 97% on R/A; Weight 79.38 kg; jw7 Height 5 ft. 2 in. ; Pain 8/10; 21:00 BP 119 / 70; Pulse 96; Resp 18 S; Pulse Ox 93% on R/A; [facility] 23:19 BP 132 / 85; Pulse 86; Resp 19 S; Pulse Ox 95% on R/A; [facility] 04/05 00:50 BP 155 / 78; Pulse 90; Resp 16 S; Pulse Ox 97% on R/A; [facility] 04/04 19:57 Body Mass Index 32.01 (79.38 kg, 157.48 cm) [facility] 04/04 19:57 Pain Scale: Adult [facility] MDM: 04/04 20:01 Patient medically screened. sb4 20:08 Differential diagnosis: abnormal EKG, acute myocardial infarction, anxiety, coronary sb4 artery disease chest wall pain, esophagitis, stable angina, unstable angina. The patient was not given aspirin in the Emergency Department. Administered by EMS. 21:25 Data reviewed: vital signs, nurses notes, EMS record, lab test result(s), EKG, sb4 radiologic studies, and as a result, I will admit patient. Consideration of Admission/Observation Patient was admitted/placed on observation. Scoring Tools HEART Score: History: ECG: Age: Risk Factors: > or = 3 Risk factors for atherosclerotic disease (2), Troponin: Total Score = 5. Counseling: I had a detailed discussion with the patient and/or guardian regarding the historical points, exam findings, and any diagnostic results supporting the discharge/admit diagnosis, lab results, radiology results, the need for further work-up and treatment in the hospital. 04/04 20:07 Order name: Basic Metabolic Panel; Complete Time: 21:04 sb4 04/04 20:07 Order name: CBC with Diff; Complete Time: 20:29 sb4 04/04 20:07 Order name: LFT's; Complete Time: 21:04 sb4 04/04 20:07 Order name: Magnesium; Complete Time: 21:04 sb4 04/04 20:07 Order name: NT PRO-BNP; Complete Time: 21:04 sb4 04/04 20:07 Order name: PT-INR; Complete Time: 20:30 sb4 04/04 20:07 Order name: Troponin HS; Complete Time: 21:04 sb4 04/04 20:07 Order name: XRAY Chest (1 view); Complete Time: 20:55 sb4 04/04 20:07 Order name: EKG; Complete Time: 20:08 sb4 04/04 20:07 Order name: Cardiac monitoring; Complete Time: 20:19 sb4 04/04 20:07 Order name: EKG - Nurse/Tech; Complete Time: 20:30 sb4 04/04 20:07 Order name: IV Saline Lock; Complete Time: 20:19 sb4 04/04 20:07 Order name: Labs collected and sent; Complete Time: 20:19 sb4 04/04 20:07 Order name: O2 Per Protocol; Complete Time: 20:19 sb4 04/04 20:07 Order name: O2 Sat Monitoring; Complete Time: 20:19 sb4 EC:30 Rate is 95 beats/min. Rhythm is regular, Normal Sinus Rhythm. LA interval is normal at sb4 142 msec. QRS interval is normal at 84 msec. QT interval is normal at [address] changes noted. Clinical impression: Normal ECG. Interpreted by me. Reviewed by me. Administered Medications: 20:22 Drug: Nitroglycerin Sublingual 0.4 mg Sublingual once; every five minute if needed x3 jw7 Route: Sublingual; 20:32 Drug: Nitroglycerin Sublingual 0.4 mg Sublingual once; every five minute if needed x3 jw7 Route: Sublingual; 20:40 Drug: Nitroglycerin Sublingual 0.4 mg Sublingual once; every five minute if needed x3 jw7 Route: Sublingual; 22:10 Follow up: Response: No adverse reaction; No change in condition jw7 21:22 Drug: morphine IVP or IV 4 mg IVP once over 4 mins Route: IVP; Infused Over: 4 mins; jw7 Site: left forearm; 22:10 Follow up: Response: No adverse reaction; Marked relief of symptoms jw7 21:22 Drug: Ondansetron IVP 4 mg IVP once; over 2 minutes Route: IVP; Site: left forearm; jw7 22:10 Follow up: Response: No adverse reaction jw7 22:10 Drug: ALPRAZolam PO Tablet 1 mg PO once Route: PO; jw7 23:25 Follow up: Response: No adverse reaction 7 Disposition: 20:35 I was immediately available on-site in the Emergency Department for consultation in the ms3 care of the patient. Disposition Summary: 04/04/23 21:26 Hospitalization Ordered Notes: Hospitalization Status: Observation sb4 Provider: Tato Arciniega sb4 Location: Telemetry/[facility] (observation) sb4 Condition: Fair sb4 Problem: new sb4 Symptoms: are unchanged sb4 Bed/Room Type: Standard sb4 Room Assignment: 211(04/04/23 23:13) cg Diagnosis - Chest pain, unspecified sb4 Forms: - Medication Reconciliation Form sb4 - SBAR form sb4 - Leadership Thank You Letter sb4 Signatures: Dispatcher [employer] Cecelia Matthew RN RN cg Kenton Thompson DO DO ms3 Valery Gudino RN RN jw7 Danuta Lilly PA-C PA-C sb4 Corrections: (The following items were deleted from the chart) 23:13 21:26 sb4 cg
--- NOTE | 2023-04-04 21:27 | ER ---
Nurse's Notes [facility] Name: Vicky Walker Age: 62 yrs Sex: Female : 1960 Arrival Date: 04/04/2023 Time: 19:56 Bed IW9 Private MD: Diagnosis: Chest pain, unspecified Presentation: 04/04 19:57 Chief complaint: Patient states: I started having chest pain 4 days ago, right in the jw7 center of my chest. It comes and goes and hurts more when I'm active and I've had some shortness of breath when it hurts. 19:57 Coronavirus screen: At this time, the client does not indicate any symptoms associated [facility] with coronavirus-19. Ebola Screen: No symptoms or risks identified at this time. Initial Sepsis Screen: Does the patient meet any 2 criteria? No. Patient's initial sepsis screen is negative. Does the patient have a suspected source of infection? No. Patient's initial sepsis screen is negative. Risk Assessment: Do you want to hurt yourself or someone else? Patient reports no desire to harm self or others. Onset of symptoms was March 31, 2023. Care prior to arrival: Medication(s) given: ASA, 325 mg, IV initiated. 20 GA, in the left forearm. 19:57 Method Of Arrival: EMS [facility] 19:57 Acuity: PIYUSH 3 jw7 Triage Assessment: 20:00 General: Appears in no apparent distress. uncomfortable, Behavior is calm, cooperative. jw7 Pain: Complains of pain in chest Pain does not radiate. Pain currently is 8 out of 10 on a pain scale. Quality of pain is described as throbbing, pulsating, Pain began 2-3 days ago. Is intermittent, Aggravated by increased activity. EENT: No deficits noted. No signs and/or symptoms were reported regarding the EENT system. Neuro: Barragan Agitation-Sedation Scale (RASS): 0 - Alert and Calm Level of Consciousness is awake, alert, obeys commands, Oriented to person, place, time, situation. Cardiovascular: Heart tones S1 S2 present Capillary refill < 3 seconds Clubbing of nail beds is absent JVD is absent Patient's skin is warm and dry. Cardiovascular: Rhythm is sinus rhythm. Cardiovascular:. Respiratory: Airway is patent Trachea midline Respiratory effort is even, unlabored, Respiratory pattern is regular, symmetrical. GI: No deficits noted. No signs and/or symptoms were reported involving the gastrointestinal system. : No deficits noted. No signs and/or symptoms were reported regarding the genitourinary system. Derm: Skin is intact, is healthy with good turgor, Skin is dry, Skin is normal, Skin temperature is warm. Musculoskeletal: Circulation, motion, and sensation intact. Range of motion: intact in all extremities. Historical: - Allergies: 20:00 PENICILLINS; jw7 - Home Meds: 20:00 Flonase 50 mcg/actuation Nasal spsn 1 spray 2 times per day [Active]; gabapentin Oral jw7 [Active]; lisinopril 10 mg Oral tab [Active]; loratadine 10 mg Oral tab 1 tab once daily [Active]; Xanax 1 mg Oral tab 1 tab 3 times per day [Active]; Albuterol Nebulizer [Active]; Symbicort inhalation [Active]; - PMHx: 20:00 Anxiety; Chronic pain; GERD; Hypertension; psoriasis; jw7 - PSHx: 20:00 Cholecystectomy; hysterectomy; R knee replacement; jw7 - Immunization history:: Adult Immunizations up to date, Client reports receiving the 2nd dose of the Covid vaccine, Last tetanus immunization: < 10 years ago Flu vaccine is up to date. - Social history:: Smoking status: Patient reports the use of cigarette tobacco products, smokes one-half pack cigarettes per day, Patient/guardian denies using alcohol, street drugs, IV drugs. Screenin:00 [facility] ED Fall Risk Assessment (Adult) History of falling in the last 3 months, jw7 including since admission No falls in past 3 months (0 pts) Score/Fall Risk Level 0 - 2 = Low Risk Oriented to surroundings, Maintained a safe environment, Educated pt \T\ family on fall prevention, incl call for assistance when getting out of bed. Abuse screen: Denies threats or abuse. Denies injuries from another. Nutritional screening: No deficits noted. Tuberculosis screening: No symptoms or risk factors identified. Assessment: 20:00 General: See Triage Assessment. jw7 21:00 Reassessment: Patient appears in no apparent distress at this time. No changes from jw7 previously documented assessment. Patient and/or family updated on plan of care and expected duration. Pain level reassessed. Patient is alert, oriented x 3, equal unlabored respirations, skin warm/dry/pink. 22:00 Reassessment: Patient appears in no apparent distress at this time. No changes from [facility] previously documented assessment. Patient and/or family updated on plan of care and expected duration. Pain level reassessed. Patient is alert, oriented x 3, equal unlabored respirations, skin warm/dry/pink. 23:00 Reassessment: Patient appears in no apparent distress at this time. Patient and/or jw7 family updated on plan of care and expected duration. Pain level reassessed. Patient is alert, oriented x 3, equal unlabored respirations, skin warm/dry/pink. Patient states symptoms have improved. 04/05 00:00 Reassessment: Patient appears in no apparent distress at this time. No changes from [facility] previously documented assessment. Patient and/or family updated on plan of care and expected duration. Pain level reassessed. Patient is alert, oriented x 3, equal unlabored respirations, skin warm/dry/pink. 01:00 Reassessment: Patient appears in no apparent distress at this time. No changes from [facility] previously documented assessment. Patient and/or family updated on plan of care and expected duration. Pain level reassessed. Patient is alert, oriented x 3, equal unlabored respirations, skin warm/dry/pink. Vital Signs: 04/04 19:57 BP 123 / 76; Pulse 107; Resp 13 S; Temp 98.7(TE); Pulse Ox 97% on R/A; Weight 79.38 kg; 7 Height 5 ft. 2 in. ; Pain 8/10; 21:00 BP 119 / 70; Pulse 96; Resp 18 S; Pulse Ox 93% on R/A; jw7 23:19 BP 132 / 85; Pulse 86; Resp 19 S; Pulse Ox 95% on R/A; 7 04/05 00:50 BP 155 / 78; Pulse 90; Resp 16 S; Pulse Ox 97% on R/A; 7 04/04 19:57 Body Mass Index 32.01 (79.38 kg, 157.48 cm) 7 04/04 19:57 Pain Scale: Adult [facility] ED Course: 04/04 19:57 Patient arrived in ED. rv1 20:00 Arm band placed on. jw7 20:00 Patient has correct armband on for positive identification. Bed in low position. Call [facility] light in reach. Side rails up X2. 20:01 [facility] sb[facility] 20:01 Kenton Thompson DO is Attending Physician. sb4 20:19 Troponin HS Sent. as6 20:19 PT-INR Sent. as6 20:19 NT PRO-BNP Sent. as6 20:19 Magnesium Sent. as6 20:19 LFT's Sent. as6 20:19 CBC with Diff Sent. as6 20:19 Basic Metabolic Panel Sent. as6 20:19 Maintain EMS IV. Dressing intact. Good blood return noted. Site clean \T\ dry. Gauge \T\ as 6 site: 20g LFA. 20:20 Valery Gudino RN is Primary Nurse. jw7 20:32 XRAY Chest (1 view) In Process Unspecified. EDMS 20:53 Triage completed. jw7 21:26 Tato Arciniega MD is Hospitalizing Provider. sb4 21:37 No provider procedures requiring assistance completed. Patient admitted, IV remains in jw7 place. 21:37 Provided Education on: need for admit. jw7 Administered Medications: 20:22 Drug: Nitroglycerin Sublingual 0.4 mg Sublingual once; every five minute if needed x3 jw7 Route: Sublingual; 20:32 Drug: Nitroglycerin Sublingual 0.4 mg Sublingual once; every five minute if needed x3 jw7 Route: Sublingual; 20:40 Drug: Nitroglycerin Sublingual 0.4 mg Sublingual once; every five minute if needed x3 jw7 Route: Sublingual; 22:10 Follow up: Response: No adverse reaction; No change in condition jw7 21:22 Drug: morphine IVP or IV 4 mg IVP once over 4 mins Route: IVP; Infused Over: 4 mins; jw7 Site: left forearm; 22:10 Follow up: Response: No adverse reaction; Marked relief of symptoms jw7 21:22 Drug: Ondansetron IVP 4 mg IVP once; over 2 minutes Route: IVP; Site: left forearm; jw7 22:10 Follow up: Response: No adverse reaction jw7 22:10 Drug: ALPRAZolam PO Tablet 1 mg PO once Route: PO; jw7 23:25 Follow up: Response: No adverse reaction jw7 Medication: 21:37 VIS not applicable for this client. jw7 Outcome: 21:26 Decision to Hospitalize by Provider. sb4 04/05 00:00 Instructed on the need for admit, Demonstrated understanding of instructions, jw7 01:00 Condition: stable jw7 01:00 AMA AMA form signed jw7 01:11 Patient left the ED. jb4 Signatures: Dispatcher [employer] EDPo Sullivan RN RN jb4 Jeremiah Escamilla RN RN [email or web address] Valery Gudino RN RN jw7 Danuta Lilly, PA-Iman PA-Iman sb4 Afsaneh John rv1
[2023-04-05 01:37] VITALS: TEMP 98.7
[2023-04-05 01:55] VITALS: BP 132/85; O2SAT 95
--- NOTE | 2023-04-07 15:07 | EKG ---
Test Date: 2023-04-04 Test Time: 20:26:48 Project Reservoir Engineer: MEASUREMENT RESULTS: Intervals: Rate: 95 AR: 142 QRSD: 84 QT: 378 QTc: 475 Reeves: P: 62 AR: 142 QRS: 61 T: 61 INTERPRETIVE STATEMENTS: Normal sinus rhythm Possible Lateral infarct, age undetermined Abnormal ECG Compared to ECG 02/12/2023 11:26:38 Myocardial infarct finding now present Electronically Signed On 04-07-23 15:01:44 PACK WORKER SUPERVISOR by Seymour Aparicio
== END ==
LOC: ER 19:56
DX: R07.9 Chest pain, unspecified (principal); I10 Essential (primary) hypertension; F41.9 Anxiety disorder, unspecified; G89.29 Other chronic pain; F17.210 Nicotine dependence, cigarettes, uncomplicated; Z96.651 Presence of right artificial knee joint; Z88.0 Allergy status to penicillin
CPT/HCPCS: 85025; 80048; 36415; 83735; 85610; 80076; 84484; 83880; 71045; J2405; 93005

== ENCOUNTER → 2023-05-17 | Emergency (ER) | payer OTHER ==
[~2023-05-17] MED LIST changes: -ALPRAZOLAM 1 MG TABLET ONE; +METOCLOPRAMIDE 10 MG/2mL INJ ONE; -NITROGLYCERIN 0.4 MG/TAB SL ONE; +ONDANSETRON 4 MG (ODT) TAB ONE; +TDAP (DIPHTH,PERTUSS(ACELL),TET VAC) 0.5 ML VIAL IMVAC ONE
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
--- NOTE | 2023-05-17 18:58 | RAD REPORT ---
EXAM DESCRIPTION: RAD - Hand Right 2 View - 05/17/2023 6:52 pm CLINICAL HISTORY: PAIN COMPARISON: No comparisons FINDINGS: Subtle lucency at the base of the fifth metacarpal carpal likely nondisplaced fracture. No dislocation.
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
--- NOTE | 2023-05-17 19:03 | EDPHYS ---
Physician Documentation [facility] Name: Vicky Walker Age: 62 yrs Sex: Female : 1960 Arrival Date: 05/17/2023 Time: 17:20 Bed 4 Private MD: ED Physician Lea Boswell HPI: 05/16 18:36 This 62 yrs old Female presents to ER via Wheelchair with complaints of Fall Injury - cp3 [place], Dizziness, Eye Swelling. 18:36 the patient is a 62 year old female who presents to the ed sp falling off . cp3 Historical: - Allergies: 17:36 PENICILLINS; mb9 - PMHx: 17:36 Anxiety; Hypertension; GERD; Chronic pain; psoriasis; mb9 - PSHx: 17:36 Cholecystectomy; hysterectomy; R knee replacement; mb9 - Immunization history:: Adult Immunizations up to date. - Social history:: Smoking status: Patient denies any tobacco usage or history of. ROS: 18:54 Neck: Negative for injury, pain, and swelling, Cardiovascular: Negative for chest pain, cp3 palpitations, and edema, Respiratory: Negative for shortness of breath, cough, wheezing, and pleuritic chest pain, Abdomen/GI: Negative for abdominal pain, nausea, vomiting, diarrhea, and constipation, Back: Negative for injury and pain, : Negative for injury, bleeding, discharge, and swelling, MS/Extremity: Negative for injury and deformity, Skin: Negative for injury, rash, and discoloration, Neuro: Negative for headache, weakness, numbness, tingling, and seizure, Psych: Negative for depression, anxiety, suicide ideation, homicidal ideation, and hallucinations, Allergy/Immunology: Negative for hives, rash, and allergies, Endocrine: Negative for neck swelling, polydipsia, polyuria, polyphagia, and marked weight changes, Hematologic/Lymphatic: Negative for swollen nodes, abnormal bleeding, and unusual bruising, 18:54 Eyes: Positive for injury or acute deformity, sunken appearance, 18:54 ENT: Positive for Negative for injury or acute deformity, drainage from ear(s), ear pain, foreign body sensation, Gum pain hearing loss, pulling at ears, Exam: 18:54 Constitutional: This is a well developed, well nourished patient who is awake, alert, cp3 and in no acute distress. 18:54 Chest/axilla: Normal chest wall appearance and motion. Nontender with no deformity. No lesions are appreciated. Cardiovascular: Regular rate and rhythm with a normal S1 and S2. No gallops, murmurs, or rubs. Normal PMI, no JVD. No pulse deficits. Respiratory: Lungs have equal breath sounds bilaterally, clear to auscultation and percussion. No rales, rhonchi or wheezes noted. No increased work of breathing, no retractions or nasal flaring. Abdomen/GI: Soft, non-tender, with normal bowel sounds. No distension or tympany. No guarding or rebound. No evidence of tenderness throughout. Back: No spinal tenderness. No costovertebral tenderness. Full range of motion. 18:54 Head/face: Noted is contusion, ecchymosis, raccoon eye(s), swelling, tenderness, 18:54 Eyes: Periorbital structures: swelling, that is marked, on the left upper eyelid, medial canthus of left eye, lateral canthus of left eye and left lower eyelid, Pupils: equal, round, and reactive to light and accomodation, Extraocular movements: intact throughout, Conjunctiva: normal, Corneas: are normal, 18:54 Skin: abrasions to face, right hand, left face. Vital Signs: 17:41 BP 128 / 78; Pulse 83; Resp 19 S; Temp 97.3(TE); Pulse Ox 98% on R/A; Weight 77.11 kg aa5 (R); Height 5 ft. 2 in. (R); 17:41 BP 128 / 78; Pulse 84; Resp 18; Pulse Ox 97% on R/A; Pain 10/10; mb9 19:15 BP 125 / 95; Pulse 88; Resp 16; Pulse Ox 99% on R/A; mb9 20:25 BP 114 / 67; Pulse 76; Resp 16; Temp 98.2; Pulse Ox 97% on R/A; kmf 17:41 Body Mass Index 31.09 (77.11 kg, 157.48 cm) aa5 17:41 Pain Scale: Adult mb9 [place] Coma Score: 17:45 Eye Response: spontaneous(4). Motor Response: obeys commands(6). Verbal Response: mb9 oriented(5). Total: 15. 18:45 Eye Response: spontaneous(4). Motor Response: obeys commands(6). Verbal Response: mb9 oriented(5). Total: 15. MDM: 17:44 Patient medically screened. cp3 19:01 Differential diagnosis: abrasion, closed head injury, contusion, fracture, multiple cp3 trauma. Data reviewed: vital signs, nurses notes, radiologic studies, CT scan. Consideration of Admission/Observation Patient was admitted/placed on observation. Escalation of care including admission/observation considered. Management of patient was discussed with the following: [facility]. I considered the following discharge prescriptions or medication management in the emergency department Medications were administered in the Emergency Department. See MAR. Independent interpretation of the following test(s) in the Emergency Department CT Scan: My interpretation is ct head/face interpreted by me- + left orbital blow out fracture. 05/16 19:00 Order name: CBC w/o diff 3 05/16 19:00 Order name: Basic Metabolic Panel [facility] 05/16 19:00 Order name: PT-INR [facility] 05/16 17:59 Order name: CT Head Brain wo Cont; Complete Time: 18:37 3 05/16 17:59 Order name: CT Facial Bones W/O Con; Complete Time: 18:37 3 05/16 17:59 Order name: Hand Right 2 View XRAY; Complete Time: 19:01 3 05/16 18:00 Order name: Wound Care; Complete Time: 18:34 3 05/16 19:00 Order name: Saline Lock; Complete Time: 19:01 cp3 Administered Medications: 18:09 Drug: Boostrix Tdap IM 0.5 ml IM once; as a single dose {Note: [id number] 03/15/25 mb9 ShopText.} Route: IM; Site: left deltoid; 19:01 Follow up: Response: No adverse reaction mb9 18:09 Drug: Bacitracin Topical Ointment (500 unit/g) 1 application Topical once Route: mb9 Topical; Site: affected area; 19:01 Follow up: Response: No adverse reaction mb9 18:10 Not Given (Other Intervention Used): morphine5 mg IM once mb9 18:10 Drug: Ondansetron PO 4 mg PO once Route: PO; mb9 19:01 Follow up: Response: No adverse reaction mb9 18:10 Drug: morphine IM 4 mg IM once Route: IM; Site: left gluteus; mb9 19:01 Follow up: Response: No adverse reaction mb9 19:08 Drug: Ondansetron IVP 4 mg IVP once; over 2 minutes Route: IVP; Site: left forearm; mb9 19:29 Follow up: Response: No adverse reaction mb9 19:12 Drug: morphine IVP or IV 4 mg IVP once over 4 mins Route: IVP; Infused Over: 4 mins; mb9 Site: left forearm; 19:29 Follow up: Response: No adverse reaction mb9 20:29 Drug: morphine IVP or IV 4 mg IVP once over 4 mins Route: IVP; Infused Over: 4 mins; jb4 Site: left forearm; 20:29 Follow up: Response: Medication administered at discharge. jb4 20:29 Drug: metoCLOPramide IVP 10 mg IVP once; over 1 to 2 minutes Route: IVP; Site: left jb4 forearm; 20:29 Follow up: Response: Medication administered at discharge. jb4 Disposition Summary: 05/17/23 19:03 Transfer Ordered Notes: Transfer Location: [facility] cp3 Reason: Higher level of care cp3 Condition: Stable cp3 Problem: new cp3 Symptoms: are unchanged cp3 Accepting Physician: pending(05/17/23 20:41) jb4 Diagnosis - left orbital blow out fracture cp3 - enopthalmos cp3 - facial contusion cp3 - abrasion cp3 Forms: - Medication Reconciliation Form cp3 - SBAR form cp3 Signatures: Dispatcher [employer] Lea Villareal MD MD cp3 Po Roman RN RN jb4 Tracy Mayer RN RN mb9 Corrections: (The following items were deleted from the chart) 20:41 19:03 pending cp3 jb4
[2023-05-17 19:20] LABS: Hematocrit 42.7 % (36.0-45.0); Hemoglobin 14.7 g/dL (12.0-15.0); MCH 31.9 pg (27.0-35.0); MCHC 34.4 g/dL (32.0-36.0); MCV 92.9 fL (80-100); MPV 7.1 fL (7.6-11.3); Platelets 313 thou/uL (152-406); RBC Red Blood Cell Count 4.59 M/uL (3.86-4.86); Red Cell Distribution Width 13.9 % (12.1-15.2)
[2023-05-17 19:22] LABS: PT Prothrombin Time 11.4 SECONDS (9.5-12.5); Protime INR 1.04
[2023-05-17 19:30] LABS: Anion Gap 11.1 mEq/L (5.0-15.0); Potassium 3.1 mEq/L (3.5-5.1)
[2023-05-17 21:07] VITALS: BP 114/67; TEMP 98.2; O2SAT 97
== END ==
LOC: ER 17:20
DX: S02.32XA Fracture of orbital floor, left side, initial encounter for closed fracture (principal); H05.402 Unspecified enophthalmos, left eye; S60.511A Abrasion of right hand, initial encounter; W17.89XA Other fall from one level to another, initial encounter; I10 Essential (primary) hypertension; Z88.0 Allergy status to penicillin
CPT/HCPCS: 80048; 36415; 85610; 85027; 70450; 70486; 76377; 73120; 96375; 96372; 96374; 99285; Q0162; J2765; J2405

== ENCOUNTER 2024-04-26 14:23 | Emergency (ER) | payer OTHER ==
--- NOTE | 2024-04-26 15:40 | RAD REPORT ---
EXAMINATION: CT ABDOMEN AND PELVIS WITHOUT CONTRAST CLINICAL INDICATION: Female, 63 years old.low back pain TECHNIQUE: CT abdomen and pelvis was performed, without IV contrast, as per department protocol. Axia l, sagittal and coronal reconstructions were obtained. One or more of the following dose reduction techniques were used: Automated exposure control, adjustment of the mA and/or kV according to the pat ient size, and/or iterative reconstruction. Unless otherwise specified, incidental findings do not require dedicated imaging follow-up. [id number]. IV CONTRAST: Not administered. COMPARISON: 11/20/2016 FINDINGS: The lack of intravenous contrast limits the sensitivity of this exam for evaluation of solid visceral organs, vascular structures, and retroperitoneum. LOWER CHEST: No acute process identified.No significant pericardial effusion. Coronary artery calcifi cations present.Calcified right lower lobe nodule. Small hiatal hernia. UPPER GI: No significant abnormality. LIVER: No significant focal abnormality. GALLBLADDER/BILE DUCTS: Cholecystectomy. No significant biliary ductal dilatation.? PANCREAS: No mass, ductal dilation, or rivera-pancreatic fluid. SPLEEN: Unremarkable. ADRENALS: Adrenal thickening without discrete mass. KIDNEYS AND URETERS: No hydronephrosis.No suspicious renal mass. ABDOMINAL AORTA AND OTHER VESSELS: Moderate atherosclerotic changes without aortic aneurysm. PERITONEUM: No abnormal free fluid. No free air. LYMPH NODES: No pathologic lymphadenopathy. ABDOMINAL WALL: Unremarkable SMALL BOWEL/COLON: Small bowel has normal course and caliber. No colonic wall thickening or pericolon ic inflammatory changes.Normal appendix. Mild diverticulosis without diverticulitis. URINARY BLADDER: Underdistended but grossly unremarkable. REPRODUCTIVE ORGANS: Uterus surgically absent. No adnexal abnormality. MUSCULOSKELETAL: Multilevel degenerative changes in the spine. No acute fracture. ADDITIONAL FINDINGS: None. IMPRESSION: No acute or significant abnormalities in the abdomen or pelvis, with evaluation limited by lack of IV contrast.
[2024-04-26] MEDS ORDERED: HYDROCODONE/APAP 10/325 TAB ONE (17:02)
[2024-04-26] MEDS ORDERED: methocarbamoL 750 MG TAB ONE (17:02)
[2024-04-26] MEDS ORDERED: KETOROLAC 30 MG/ML INJ ONE (17:02)
[2024-04-26 17:20] LABS: Specific Gravity 1.012 (1.005-1.030); Urine Bacteria None Seen /HPF (<20); Urine Bilirubin NEGATIVE (Negative); Urine Blood Negative (Negative); Urine Clarity Extremely Turbid (Clear); Urine Color Light-Yellow (Yellow); Urine Crystals Unidentified Few /HPF (None Seen); Urine Culture Reflex Order NOT NEEDED; Urine Glucose NEGATIVE (Negative); Urine Ketones NEGATIVE (Negative); Urine Micro Reflex YN NO BILL MICROSCOPIC; Urine Mucus Slight /HPF (None Seen); Urine Nitrite NEGATIVE (Negative); Urine Protein NEGATIVE (Negative); Urine RBC <5 /HPF (None Seen); Urine Urobilinogen Normal (Normal); Urine WBC <5 /HPF (<5); Urine Yeast (Budding) Trace /HPF (None Seen); Urine pH 5.5 (5.0-7.0)
--- NOTE | 2024-04-26 17:53 | ER ---
Nurse's Notes [facility] Name: Vicky Walker Age: 63 yrs Sex: Female : 1960 Arrival Date: 04/26/2024 Time: 14:23 Bed 11 Private MD: Diagnosis: Lumbago with sciatica, left side Presentation: 04/26 15:03 Chief complaint: Patient states: she is having mid-lower back pain that started ap3 yesterday. patient currently rates her pain as a 9/10 on the pain scale. patient states she took advil back \T\ body and it did not help her pain. Coronavirus screen: At this time, the client does not indicate any symptoms associated with coronavirus-19. Ebola Screen: No symptoms or risks identified at this time. Initial Sepsis Screen: Does the patient meet any 2 criteria? No. Patient's initial sepsis screen is negative. Does the patient have a suspected source of infection? No. Patient's initial sepsis screen is negative. Risk Assessment: Do you want to hurt yourself or someone else? Patient reports no desire to harm self or others. Onset of symptoms was April 25, 2024. 15:03 Method Of Arrival: Wheelchair ap3 15:03 Acuity: PIYUSH 4 ap3 Triage Assessment: 15:05 General: Appears in no apparent distress. Behavior is calm, cooperative, appropriate ap3 for age. Pain: Complains of pain in low back area Pain currently is 9 out of 10 on a pain scale. Pain began 1 day ago. Neuro: Level of Consciousness is awake, alert, obeys commands, Oriented to person, place, time, situation. Cardiovascular: Patient's skin is warm and dry. Respiratory: Airway is patent Respiratory effort is even, unlabored, Respiratory pattern is regular, symmetrical. Historical: - Allergies: 15:04 PENICILLINS; ap3 - PMHx: 15:04 Anxiety; Chronic pain; GERD; Hypertension; psoriasis; ap3 - Immunization history:: Adult Immunizations up to date. - Infectious Disease History:: Denies. - Social history:: Smoking status: Patient reports the use of cigarette tobacco products, smokes one-half pack cigarettes per day. Screenin:05 [facility] ED Fall Risk Assessment (Adult) History of falling in the last 3 months, ap3 including since admission No falls in past 3 months (0 pts) Confusion or Disorientation No (0 pts) Intoxicated or Sedated No (0 pts) Impaired Gait No (0 pts) Mobility Assist Device Used No (0 pt) Altered Elimination No (0 pt) Score/Fall Risk Level 0 - 2 = Low Risk Oriented to surroundings, Maintained a safe environment, Educated pt \T\ family on fall prevention, incl call for assistance when getting out of bed, Assessed \T\ reinforced patient's understanding of fall precautions, Hourly rounding (assess needs \T\ fall precautionary measures) done, Used ambulatory aids as needed (educated on \T\ assisted with). Abuse screen: Denies threats or abuse. Nutritional screening: No deficits noted. Tuberculosis screening: No symptoms or risk factors identified. Assessment: 17:20 General: Appears in no apparent distress. comfortable, well groomed, well developed, kb3 Behavior is calm, cooperative, appropriate for age. Pain: Complains of pain in low back area. Neuro: Level of Consciousness is awake, alert, obeys commands, Oriented to person, place, time, situation, Appropriate for age. Cardiovascular: Denies chest pain, shortness of breath, Capillary refill < 3 seconds. Respiratory: Airway is patent Trachea midline Respiratory effort is even, unlabored, Respiratory pattern is regular, symmetrical. GI: No signs and/or symptoms were reported involving the gastrointestinal system. : No signs and/or symptoms were reported regarding the genitourinary system. EENT: No signs and/or symptoms were reported regarding the EENT system. Derm: No signs and/or symptoms reported regarding the dermatologic system. Skin is intact, is healthy with good turgor, Skin is pink, warm \T\ dry. Musculoskeletal: Circulation, motion, and sensation intact. Range of motion: intact in all extremities. 18:01 Reassessment: Patient appears in no apparent distress at this time. No changes from kc6 previously documented assessment. Patient and/or family updated on plan of care and expected duration. Pain level reassessed. Patient is alert, oriented x 3, equal unlabored respirations, skin warm/dry/pink. Patient states feeling better. Patient states symptoms have improved. Vital Signs: 15:03 BP 129 / 91; Pulse 75; Resp 17; Temp 97.4; Pulse Ox 100% ; Weight 72.57 kg; Height 5 ap3 ft. 2 in. ; Pain 9/10; 18:01 BP 132 / 92; Pulse 81; Resp 18 S; Pulse Ox 98% on R/A; kc6 15:03 Body Mass Index 29.26 (72.57 kg, 157.48 cm) ap3 15:03 Pain Scale: Adult ap3 ED Course: 14:41 Patient arrived in ED. ec2 14:57 Latrell Strickland PA is PHCP. cp 14:57 Yosvany Michaud MD is Attending Physician. cp 15:04 Triage completed. ap3 15:05 Arm band placed on right wrist. ap3 15:24 CT Stone Protocol In Process Unspecified. EDMS 16:59 Patricia Ventura, TANISHA is Primary Nurse. kc6 17:19 Patient has correct armband on for positive identification. Bed in low position. Call kb3 light in reach. Side rails up X 1. Pulse ox on. NIBP on. Door closed. Noise minimized. Lights dimmed. Pillow given. Verbal reassurance given. Diet: Patient given snack. Tolerated well. 17:19 Urine collected: clean catch specimen, clear. Patient maintains SpO2 saturation greater kb3 than 95% on room air. 18:01 No provider procedures requiring assistance completed. Patient did not have IV access kc6 during this emergency room visit. Administered Medications: 17:10 Drug: HYDROcodone-acetaminophen PO 10 mg-325 mg 1 tabs PO once Route: PO; kb3 17:38 Follow up: Response: No adverse reaction; Pain is decreased; RASS: Alert and Calm (0) kb3 17:10 Drug: Ketorolac IM 30 mg IM once Route: IM; Site: left deltoid; kb3 17:37 Follow up: Response: No adverse reaction; Pain is decreased kb3 17:10 Drug: Methocarbamol PO 750 mg PO once Route: PO; kb3 17:37 Follow up: Response: No adverse reaction; Pain is decreased kb3 Medication: 18:01 VIS not applicable for this client. kc6 Outcome: 17:53 Discharge ordered by . cp 18:01 Discharged to home ambulatory, with family, kc6 18:01 Condition: improved 18:01 Discharge instructions given to patient, Instructed on discharge instructions, follow up and referral plans. no drinking with medication, no driving heavy equipment, medication usage, Demonstrated understanding of instructions, follow-up care, medications, Prescriptions given X 3, 18:02 Patient left the ED. kc6 Signatures: Dispatcher [employer] EDMS Latrell Strickland PA PA cp Prokisch, Amanda RN RN ap3 Patricia Ventura RN RN kc6 Tiff Thompson RN RN kb3 Yosvany Michaud MD MD ec2
--- NOTE | 2024-04-26 17:54 | EDPHYS ---
Physician Documentation [facility] Name: Vicky Walker Age: 63 yrs Sex: Female : 1960 Arrival Date: 04/26/2024 Time: 14:23 Bed 11 Private MD: ED Physician Yosvany Michaud HPI: 04/26 15:15 This 63 yrs old Female presents to ER via Wheelchair with complaints of Back Pain. cp 15:15 The patient presents with pain that is acute, with no known mechanism of injury. The cp symptoms are located in the low back. 15:15 Onset: The symptoms/episode began/occurred yesterday, and became worse today. The pain cp radiates to the left buttock and left leg. Associated signs and symptoms: Pertinent negatives: abdominal pain, constipation, fever, hematuria, incontinence, numbness, urinary retention, weakness. The problem was sustained from unknown cause. Modifying factors: the patient symptoms are aggravated by any movement. Historical: - Allergies: 15:04 PENICILLINS; ap3 - PMHx: 15:04 Anxiety; Chronic pain; GERD; Hypertension; psoriasis; ap3 - Immunization history:: Adult Immunizations up to date. - Infectious Disease History:: Denies. - Social history:: Smoking status: Patient reports the use of cigarette tobacco products, smokes one-half pack cigarettes per day. ROS: 15:20 Back: Positive for pain at rest, pain with movement, Negative for injury or acute cp deformity, 15:20 Constitutional: Negative for body aches, chills, fever, poor PO intake, cp 15:20 Cardiovascular: Negative for chest pain, edema, 15:20 Respiratory: Negative for cough, shortness of breath, wheezing, 15:20 Abdomen/GI: Negative for abdominal pain, vomiting, diarrhea, constipation, bowel incontinence, 15:20 : Negative for urinary symptoms, hematuria, difficulty urinating, bladder incontinence, 15:20 Neuro: Negative for altered mental status, dizziness, headache, numbness, weakness, 15:21 All other systems are negative, cp Exam: 15:25 Constitutional: The patient appears in no acute distress, alert, awake, cp non-diaphoretic, non-toxic, well developed, well nourished, uncomfortable, 15:25 Head/Face: Normocephalic, atraumatic. cp 15:25 Eyes: Periorbital structures: appear normal, Conjunctiva: normal, no exudate, no injection, Sclera: no appreciated abnormality, Lids and lashes: appear normal, bilaterally, 15:25 ENT: External ear(s): are unremarkable, Nose: is normal, Mouth: Lips: moist, Oral mucosa: moist, Posterior pharynx: Airway: no evidence of obstruction, patent, 15:25 Chest/axilla: Inspection: normal, 15:25 Cardiovascular: Rate: normal, Rhythm: regular, Edema: is not appreciated, JVD: is not appreciated, 15:25 Respiratory: the patient does not display signs of respiratory distress, Respirations: normal, 15:25 Abdomen/GI: Inspection: abdomen appears normal, Palpation: abdomen is soft and non-tender, in all quadrants, 15:25 Back: pain, that is severe, of the lumbar area, left low back and right low back, ROM is painful, with all movement, Straight leg raises: of both lower extremities does not illicit pain, 15:25 Neuro: Orientation: to person, place \T\ time. Mentation: is normal, Cerebellar function: is grossly normal, Motor: moves all fours, no focal deficits, Sensation: no obvious gross deficits, Vital Signs: 15:03 BP 129 / 91; Pulse 75; Resp 17; Temp 97.4; Pulse Ox 100% ; Weight 72.57 kg; Height 5 ap3 ft. 2 in. ; Pain 9/10; 18:01 BP 132 / 92; Pulse 81; Resp 18 S; Pulse Ox 98% on R/A; kc6 15:03 Body Mass Index 29.26 (72.57 kg, 157.48 cm) ap3 15:03 Pain Scale: Adult ap3 MDM: 17:00 Differential diagnosis: Cholelithiasis chronic back pain, Pyelonephritis ruptured disc, cp Ureterolithiasis vertebral fracture. 17:53 Medical Screening Exam initiated 17:53 Data reviewed: vital signs, nurses notes, lab test result(s), radiologic studies, CT cp scan, and as a result, I will discharge patient. 17:53 I considered the following discharge prescriptions or medication management in the emergency department Medications were administered in the Emergency Department. See MAR. Counseling: I had a detailed discussion with the patient and/or guardian regarding the historical points, exam findings, and any diagnostic results supporting the discharge/admit diagnosis, lab results, radiology results, the need for outpatient follow up, a family practitioner, to return to the emergency department if symptoms worsen or persist or if there are any questions or concerns that arise at home. Response to treatment: the patient's symptoms have markedly improved after treatment, and as a result, I will discharge patient. 04/26 15:10 Order name: Urinalysis W/Microscopic; Complete Time: 17:30 cp 04/26 17:31 Interpretation: Reviewed. cp 04/26 15:10 Order name: CT Stone Protocol; Complete Time: 16:29 cp 04/26 16:29 Interpretation: Report reviewed. cp Administered Medications: 17:10 Drug: HYDROcodone-acetaminophen PO 10 mg-325 mg 1 tabs PO once Route: PO; kb3 17:38 Follow up: Response: No adverse reaction; Pain is decreased; RASS: Alert and Calm (0) kb3 17:10 Drug: Ketorolac IM 30 mg IM once Route: IM; Site: left deltoid; kb3 17:37 Follow up: Response: No adverse reaction; Pain is decreased kb3 17:10 Drug: Methocarbamol PO 750 mg PO once Route: PO; kb3 17:37 Follow up: Response: No adverse reaction; Pain is decreased kb3 Disposition: 04/27 10:26 Chart complete. cp Disposition Summary: 04/26/24 17:53 Discharge Ordered Notes: Location: Home cp Problem: new cp Symptoms: have improved cp Condition: Stable cp Diagnosis - Lumbago with sciatica, left side cp Followup: cp - With: Private Physician - When: 2 - 3 days - Reason: Recheck today's complaints Discharge Instructions: - Discharge Summary Sheet cp - Sciatica cp - Back Exercises cp Forms: - Medication Reconciliation Form cp - Antibiotic Education cp - Prescription Opioid Use cp - Patient Portal Instructions cp - Leadership Thank You Letter cp Prescriptions: - Celebrex 200 mg Oral Capsule - take 1 capsule ORAL route once daily As needed take with food; 20 capsule; cp Refills: 0, Product Selection Permitted - Medrol (Aris) 4 mg Oral Tablets, Dose Pack - take 1 tablet ORAL route as directed - follow package instructions; 1 packet; cp Refills: 0, Product Selection Permitted - methocarbamol 750 mg Oral tablet - take 1 tablet ORAL route 3 times per day; 30 tablet; Refills: 0, Product cp Selection Permitted Addendum: 20:24 I was immediately available for consultation during this patient's visit. I did not e c2 personally see the patient or discuss the patient with the KENYA. . Signatures: Dispatcher [employer] EDLatrell Guthrie PA PA cp Prokisch, Amanda RN RN ap3 Tiff Thompson RN RN kb3 Yosvany Michaud MD MD ec2 Corrections: (The following items were deleted from the chart) :04/26 15:20 All other systems are negative, cp cp
[2024-04-26 18:32] VITALS: TEMP 97.4
[2024-04-26 18:33] VITALS: BP 132/92; O2SAT 98
== END 2024-04-26 18:02 | disposition home or self-care (01) ==
LOC: ER 14:23
DX: M54.42 Lumbago with sciatica, left side (principal); F17.210 Nicotine dependence, cigarettes, uncomplicated
CPT/HCPCS: 74176; 76377; 81001; 96372; 99284

== ENCOUNTER 2024-05-18 14:28 | Emergency (ER) | payer OTHER ==
[2024-05-18] MEDS ORDERED: methocarbamoL 750 MG TAB ONE (16:09)
[2024-05-18] MEDS ORDERED: HYDROCODONE/APAP 5/325 MG TAB ONE (16:10)
[2024-05-18] MEDS ORDERED: KETOROLAC 30 MG/ML INJ ONE (16:10)
--- NOTE | 2024-05-18 16:25 | ER ---
Nurse's Notes [facility] Name: Vicky Walker Age: 63 yrs Sex: Female : 1960 Arrival Date: 05/18/2024 Time: 14:28 Bed IW9 Private MD: Diagnosis: Low back pain Presentation: 05/18 15:22 Chief complaint: Patient states: lower back pain X 3-4 weeks, was seen here and told it iw was sciatic nerve pain, still hurting, has not been able to follow up with PCP. Coronavirus screen: At this time, the client does not indicate any symptoms associated with coronavirus-19. Initial Sepsis Screen: Does the patient meet any 2 criteria? No. Patient's initial sepsis screen is negative. Does the patient have a suspected source of infection? No. Patient's initial sepsis screen is negative. 15:22 Acuity: PIYUSH 4 iw 15:22 Method Of Arrival: Wheelchair iw 15:22 Ebola Screen: No symptoms or risks identified at this time. Risk Assessment: Do you iw want to hurt yourself or someone else? Patient reports no desire to harm self or others. Onset of symptoms was April 2024. Triage Assessment: 15:30 General: Appears in no apparent distress. Behavior is cooperative. Musculoskeletal: iw Range of motion: intact in all extremities. Historical: - Allergies: 15:24 PENICILLINS; iw - PMHx: 15:24 Anxiety; GERD; psoriasis; Hypertension; Chronic pain; iw - PSHx: 15:24 Cholecystectomy; hysterectomy; R knee replacement; iw - Immunization history:: Adult Immunizations not up to date. - Infectious Disease History:: Denies. - Social history:: Smoking status: Patient reports the use of cigarette tobacco products, denies chronic smoking, but will smoke occasionally. Screenin:[address] [facility] ED Fall Risk Assessment (Adult) History of falling in the last 3 months, iw including since admission Yes- single mechanical fall (1 pt) Confusion or Disorientation No (0 pts) Intoxicated or Sedated No (0 pts) Impaired Gait No (0 pts) Mobility Assist Device Used No (0 pt) Altered Elimination No (0 pt) Score/Fall Risk Level 0 - 2 = Low Risk Oriented to surroundings. Abuse screen: Denies threats or abuse. Denies injuries from another. Nutritional screening: No deficits noted. Tuberculosis screening: No symptoms or risk factors identified. Assessment: 16:25 Reassessment: Patient appears in no apparent distress at this time. Patient and/or iw family updated on plan of care and expected duration. Pain level reassessed. Patient is alert, oriented x 3, equal unlabored respirations, skin warm/dry/pink. Vital Signs: 15:22 BP 128 / 68; Pulse 70; Resp 16; Temp 98.2; Pulse Ox 97% ; Weight 72.57 kg; Height 5 ft. iw 2 in. ; Pain 8/10; 15:22 Body Mass Index 29.26 (72.57 kg, 157.48 cm) iw 15:22 Pain Scale: Adult iw ED Course: 14:30 Patient arrived in ED. mr 15:15 Kenton Thompson DO is Attending Physician. ms3 15:23 Triage completed. iw 15:26 Arm band placed on. iw 16:15 Cara Walker, RN is Primary Nurse. iw 16:26 No provider procedures requiring assistance completed. Patient did not have IV access iw during this emergency room visit. Administered Medications: 16:15 Drug: HYDROcodone-acetaminophen PO 5 mg-325 mg 1 tabs PO once Route: PO; iw 16:20 Follow up: Response: No adverse reaction iw 16:15 Drug: Ketorolac IM 15 mg IM once Route: IM; Site: left deltoid; iw 16:20 Follow up: Response: No adverse reaction iw 16:15 Drug: Methocarbamol PO 750 mg PO once Route: PO; iw 16:20 Follow up: Response: No adverse reaction iw Medication: 16:26 VIS not applicable for this client. iw Outcome: 16:24 Discharge ordered by . ms3 16:25 Discharged to home via wheelchair, with friend, iw 16:25 Condition: good 16:25 Discharge instructions given to patient, Instructed on discharge instructions, follow up and referral plans. Demonstrated understanding of instructions, follow-up care, 16:26 Patient left the ED. iw Signatures: Tracy Ya, Reg Reg mr Cara Walker, RN RN iw Kenton Thompson DO DO ms3 Corrections: (The following items were deleted from the chart) 15:24 15:22 Pain 8/10, Adult; iw iw 15:24 15:22 Pulse 70bpm; Resp 16bpm; Pulse Ox 97%; Temp 98.2F; 72.57 kg; Height 5 ft. 2 in.; iw BMI: 29.2; Pain 8/10, Adult; iw
--- NOTE | 2024-05-18 16:25 | EDPHYS ---
Physician Documentation [facility] Name: Vicky Walker Age: 63 yrs Sex: Female : 1960 Arrival Date: 05/18/2024 Time: 14:28 Bed IW9 Private MD: ED Physician Kenton Thompson HPI: 05/18 15:57 This 63 yrs old Female presents to ER via Wheelchair with complaints of Back Pain. ms3 15:57 63-year-old female past medical history of anxiety, GERD, psoriasis, hypertension, ms3 chronic pain presents to the emergency department for back pain that is been ongoing for greater than 1 year. Patient states her pain is an 8/10. Patient denies urinary or bowel incontinence, weakness, or saddle anesthesia.. Historical: - Allergies: 15:24 PENICILLINS; iw - PMHx: 15:24 Anxiety; GERD; psoriasis; Hypertension; Chronic pain; iw - PSHx: 15:24 Cholecystectomy; hysterectomy; R knee replacement; iw - Immunization history:: Adult Immunizations not up to date. - Infectious Disease History:: Denies. - Social history:: Smoking status: Patient reports the use of cigarette tobacco products, denies chronic smoking, but will smoke occasionally. ROS: 15:57 Constitutional: Negative for fever, and chills. Cardiovascular: Negative for chest ms3 pain, and palpitations. Respiratory: Negative for shortness of breath, cough, wheezing, and pleuritic chest pain, Abdomen/GI: Negative for abdominal pain, nausea, vomiting, diarrhea, and constipation, MS/Extremity: Negative for injury and deformity, Skin: Negative for injury, rash, and discoloration, 15:57 Back: Positive for Pain, Exam: 15:57 Constitutional: This is a well developed, well nourished patient who is awake, alert, ms3 and in no acute distress. Cardiovascular: Regular rate and rhythm with a normal S1 and S2. No gallops, murmurs, or rubs. Normal PMI, no JVD. No pulse deficits. Respiratory: Lungs have equal breath sounds bilaterally, clear to auscultation and percussion. No rales, rhonchi or wheezes noted. No increased work of breathing, no retractions or nasal flaring. Abdomen/GI: Soft, non-tender, with normal bowel sounds. No distension or tympany. No guarding or rebound. No evidence of tenderness throughout. 15:57 Back: pain, that is moderate, of the left low back and right low back, normal spinal alignment noted, CVA tenderness, is absent, vertebral tenderness, is not appreciated, muscle spasm, is appreciated in the left low back and right low back, Vital Signs: 15:22 BP 128 / 68; Pulse 70; Resp 16; Temp 98.2; Pulse Ox 97% ; Weight 72.57 kg; Height 5 ft. iw 2 in. ; Pain 8/10; 15:22 Body Mass Index 29.26 (72.57 kg, 157.48 cm) iw 15:22 Pain Scale: Adult iw MDM: 15:31 Medical Screening Exam initiated ms3 15:57 Differential diagnosis: DDD vs Sciatica vs Muscle spasm. ms3 16:43 Data reviewed: vital signs, nurses notes, and as a result, I will discharge patient. I ms3 considered the following discharge prescriptions or medication management in the emergency department Medications were administered in the Emergency Department. See MAR. Counseling: I had a detailed discussion with the patient and/or guardian regarding the historical points, exam findings, and any diagnostic results supporting the discharge/admit diagnosis, the need for outpatient follow up, to return to the emergency department if symptoms worsen or persist or if there are any questions or concerns that arise at home. Special discussion: I discussed with the patient/guardian in detail that at this point there is no indication for admission to the hospital. It is understood, however, that if the symptoms persist or worsen the patient needs to return immediately for re-evaluation. ED course: Patient requesting for discharge. Symptoms improved. Patient is ambulatory emergency department, no apparent distress, nontoxic-appearing. Patient to return for worsening symptoms, or any other concerns. Patient to follow-up with primary care physician in 2 to 3 days.. Administered Medications: 16:15 Drug: HYDROcodone-acetaminophen PO 5 mg-325 mg 1 tabs PO once Route: PO; iw 16:20 Follow up: Response: No adverse reaction iw 16:15 Drug: Ketorolac IM 15 mg IM once Route: IM; Site: left deltoid; iw 16:20 Follow up: Response: No adverse reaction iw 16:15 Drug: Methocarbamol PO 750 mg PO once Route: PO; iw 16:20 Follow up: Response: No adverse reaction iw Disposition Summary: 05/18/24 16:24 Discharge Ordered Notes: Location: Home ms3 Condition: Stable ms3 Diagnosis - Low back pain ms3 Followup: ms3 - With: Private Physician - When: 2 - 3 days - Reason: Recheck today's complaints Discharge Instructions: - Discharge Summary Sheet ms3 Forms: - Medication Reconciliation Form ms3 - Antibiotic Education ms3 - Prescription Opioid Use ms3 - Patient Portal Instructions ms3 - Leadership Thank You Letter ms3 Prescriptions: - Ibuprofen 600 mg Oral Tablet - take 1 tablet ORAL route every 6 hours As needed take with food; 30 tablet; ms3 Refills: 0, Product Selection Permitted - Medrol (Aris) 4 mg Oral Tablets, Dose Pack - take 1 tablet ORAL route as directed - follow package instructions; 1 packet; ms3 Refills: 0, Product Selection Permitted - methocarbamol 750 mg Oral tablet - take 1 tablet ORAL route 4 times per day; 28 tablet; Refills: 0, Product ms3 Selection Permitted Signatures: Cara Walker RN RN iw Kenton Thompson DO DO ms3
[2024-05-18 19:42] VITALS: BP 128/68; TEMP 98.2; O2SAT 97
== END 2024-05-18 16:26 | disposition home or self-care (01) ==
LOC: ER 14:28
DX: M54.50 Low back pain, unspecified (principal); F17.210 Nicotine dependence, cigarettes, uncomplicated
CPT/HCPCS: 96372; 99284

== ENCOUNTER 2024-07-18 21:02 | Emergency (ER) | payer OTHER ==
--- NOTE | 2024-07-18 21:49 | ER ---
Nurse's Notes [facility] Name: Vicky Walker Age: 63 yrs Sex: Female : 1960 Arrival Date: 07/18/2024 Time: 21:02 Bed 19 Private MD: Diagnosis: Low back pain Presentation: 07/18 21:20 Chief complaint: EMS states: TONED OUT TO PATIENT'S HOME FOR LOW BACK PAIN. PT STATES cm10 THAT SHE HAS HAD THIS LOW BACK PAIN FOR 3 MONTHS. PT REPORTS TAKING OTC MEDS WITH NO RELIEF. Coronavirus screen: Client denies travel out of the [place] in the last 14 days. Ebola Screen: Patient denies travel to an Ebola-affected area in the 21 days before illness onset. Initial Sepsis Screen: Does the patient meet any 2 criteria? No. Patient's initial sepsis screen is negative. Does the patient have a suspected source of infection? No. Patient's initial sepsis screen is negative. Risk Assessment: Do you want to hurt yourself or someone else? Patient reports no desire to harm self or others. Onset of symptoms was July 18, 2024. 21:20 Method Of Arrival: EMS: [facility] cm10 21:20 Acuity: PIYUSH 4 cm10 21:21 Care prior to arrival: Glucose check: 100. cm10 Triage Assessment: 21:22 General: Appears in no apparent distress. comfortable, Behavior is calm, cooperative. cm10 Pain: Complains of pain in low back area Pain currently is 8 out of 10 on a pain scale. Quality of pain is described as aching, pressure, sharp, shooting, throbbing, Pain began 3 MONTHS AGO. Neuro: No deficits noted. Level of Consciousness is awake, alert, obeys commands, Oriented to person, place, time, situation, Appropriate for age. Respiratory: No deficits noted. Airway is patent Respiratory effort is even, unlabored, Respiratory pattern is regular, symmetrical. Musculoskeletal: Range of motion: intact in all extremities, Reports pain in low back area. Historical: - Allergies: 21:22 PENICILLINS; cm10 - PMHx: 21:22 Anxiety; Chronic pain; GERD; Hypertension; psoriasis; cm10 - PSHx: 21:22 Cholecystectomy; hysterectomy; R knee replacement; cm10 - Immunization history:: Adult Immunizations up to date. - Infectious Disease History:: Denies. - Social history:: Smoking status: Patient reports the use of cigarette tobacco products, smokes one-half pack cigarettes per day. - Family history:: not pertinent. Screenin:[address] [facility] ED Fall Risk Assessment (Adult) History of falling in the last 3 months, kj2 including since admission No falls in past 3 months (0 pts) Confusion or Disorientation No (0 pts) Intoxicated or Sedated No (0 pts) Impaired Gait No (0 pts) Mobility Assist Device Used No (0 pt) Altered Elimination No (0 pt) Score/Fall Risk Level 0 - 2 = Low Risk Maintained a safe environment, Hourly rounding (assess needs \T\ fall precautionary measures) done. Abuse screen: Denies threats or abuse. Denies injuries from another. Nutritional screening: No deficits noted. Tuberculosis screening: No symptoms or risk factors identified. Assessment: 21:30 General: Appears in no apparent distress. uncomfortable, Behavior is cooperative. Pain: kj2 Complains of pain in back and low back area Pain currently is 10 out of 10 on a pain scale. Neuro: Level of Consciousness is awake, alert, obeys commands, Oriented to person, place, time, situation. Cardiovascular: Patient's skin is warm and dry. Respiratory: Airway is patent Respiratory effort is even, unlabored. GI: No signs and/or symptoms were reported involving the gastrointestinal system. : No signs and/or symptoms were reported regarding the genitourinary system. 22:13 Reassessment: Patient appears in no apparent distress at this time. Patient and/or kj2 family updated on plan of care and expected duration. Pain level reassessed. Patient is alert, oriented x 3, equal unlabored respirations, skin warm/dry/pink. Vital Signs: 21:20 BP 133 / 77; Pulse 79; Resp 18; Temp 97.9(TE); Pulse Ox 98% on R/A; Weight 74.84 kg; cm10 Height 5 ft. 2 in. ; Pain 8/10; 22:13 BP 130 / 78; Pulse 80; Resp 18; Temp 98.1; Pulse Ox 100% on R/A; kj2 21:20 Body Mass Index 30.18 (74.84 kg, 157.48 cm) cm10 21:20 Pain Scale: Adult cm10 ED Course: 21:07 Patient arrived in ED. mr 21:12 Venancio Tijerina MD is Attending Physician. rt 21:21 Triage completed. cm10 21:21 Arm band placed on left wrist. Patient placed in waiting room. cm10 21:48 Violette Hernandez, RN is Primary Nurse. kj2 21:52 Patient has correct armband on for positive identification. Bed in low position. Call kj2 light in reach. Provided Education on: call light. 22:07 No provider procedures requiring assistance completed. Patient did not have IV access kj2 during this emergency room visit. Administered Medications: 22:02 Drug: Cyclobenzaprine PO 10 mg PO once Route: PO; kj2 22:06 Follow up: Response: Medication administered at discharge. kj2 22:02 Drug: HYDROcodone-acetaminophen PO 5 mg-325 mg 1 tabs PO once Route: PO; kj2 22:05 Follow up: Response: Medication administered at discharge. kj2 22:03 Drug: Ketorolac IM 30 mg IM once Route: IM; Site: left deltoid; kj2 22:06 Follow up: Response: Medication administered at discharge. kj2 Medication: 21:52 VIS not applicable for this client. kj2 Outcome: 21:48 Discharge ordered by MD. rt 22:07 Discharged to home ambulatory, kj2 22:07 Condition: stable 22:07 Discharge instructions given to patient, Instructed on discharge instructions, follow up and referral plans. Demonstrated understanding of instructions, follow-up care, 22:14 Patient left the ED. kj2 Signatures: YaTracy, Reg Reg mr Venancio Tijerina MD MD rt Luisa Santiago, TANISHA RN cm10 Violette Hernandez RN RN kj2
--- NOTE | 2024-07-18 21:49 | EDPHYS ---
Physician Documentation [facility] Name: Vicky Walker Age: 63 yrs Sex: Female : 1960 Arrival Date: 07/18/2024 Time: 21:02 Bed 19 Private MD: ED Physician Venancio Tijerina HPI: 07/19 01:01 This 63 yrs old Female presents to ER via EMS with complaints of Back Pain. rt 01:01 Patient presents to the ED with a low back pain, chronic in nature, this episode rt lasting for more than a month. States that she has not yet been able to get in with her physician. Denies other acute complaints at this time, symptoms are moderate in severity, no other aggravating or alleviating factors.. Historical: - Allergies: 07/18 21: PENICILLINS; cm10 - PMHx: 21:22 Anxiety; Chronic pain; GERD; Hypertension; psoriasis; cm10 - PSHx: 21:22 Cholecystectomy; hysterectomy; R knee replacement; cm10 - Immunization history:: Adult Immunizations up to date. - Infectious Disease History:: Denies. - Social history:: Smoking status: Patient reports the use of cigarette tobacco products, smokes one-half pack cigarettes per day. - Family history:: not pertinent. ROS: 07/19 01:01 Constitutional: Negative for fever, chills, and weight loss, Cardiovascular: Negative rt for chest pain, palpitations, and edema, Respiratory: Negative for shortness of breath, cough, wheezing, and pleuritic chest pain, Abdomen/GI: Negative for abdominal pain, nausea, vomiting, diarrhea, and constipation, MS/Extremity: Negative for injury and deformity, Skin: Negative for injury, rash, and discoloration, Back: Positive for pain at rest, pain with movement, Exam: 01:01 Constitutional: This is a well developed, well nourished patient who is awake, alert, rt and in no acute distress. Head/Face: Normocephalic, atraumatic. Chest/axilla: Normal chest wall appearance and motion. Nontender with no deformity. No lesions are appreciated. Cardiovascular: Regular rate and rhythm with a normal S1 and S2. No gallops, murmurs, or rubs. Normal PMI, no JVD. No pulse deficits. Respiratory: Lungs have equal breath sounds bilaterally, clear to auscultation and percussion. No rales, rhonchi or wheezes noted. No increased work of breathing, no retractions or nasal flaring. Abdomen/GI: Soft, non-tender, with normal bowel sounds. No distension or tympany. No guarding or rebound. No evidence of tenderness throughout. MS/ Extremity: Pulses equal, no cyanosis. Neurovascular intact. Full, normal range of motion. Neuro: Awake and alert, GCS 15, oriented to person, place, time, and situation. Cranial nerves II-XII grossly intact. Motor strength 5/5 in all extremities. Sensory grossly intact. Cerebellar exam normal. Normal gait. 01:01 Back: Tenderness to the lower paraspinal region, no midline tenderness, no step-offs, Vital Signs: 07/18 21:20 BP 133 / 77; Pulse 79; Resp 18; Temp 97.9(TE); Pulse Ox 98% on R/A; Weight 74.84 kg; cm10 Height 5 ft. 2 in. ; Pain 8/10; 22:13 BP 130 / 78; Pulse 80; Resp 18; Temp 98.1; Pulse Ox 100% on R/A; kj2 21:20 Body Mass Index 30.18 (74.84 kg, 157.48 cm) cm10 21:20 Pain Scale: Adult cm10 MDM: 21:38 Medical Screening Exam initiated rt 07/19 01:01 Differential diagnosis: Chronic back pain, muscle spasm. Data reviewed: vital signs, rt nurses notes. I considered the following discharge prescriptions or medication management in the emergency department Medications were administered in the Emergency Department. See MAR. Test considered but Not performed: Other Details Patient with chronic back pain, do not believe that imaging is emergently indicated. Care significantly affected by the following chronic conditions: Hypertension. Counseling: I had a detailed discussion with the patient and/or guardian regarding the historical points, exam findings, and any diagnostic results supporting the discharge/admit diagnosis, the need for outpatient follow up, to return to the emergency department if symptoms worsen or persist or if there are any questions or concerns that arise at home. Response to treatment: the patient's symptoms have markedly improved after treatment. Administered Medications: 07/18 22:02 Drug: Cyclobenzaprine PO 10 mg PO once Route: PO; kj2 22:06 Follow up: Response: Medication administered at discharge. kj2 22:02 Drug: HYDROcodone-acetaminophen PO 5 mg-325 mg 1 tabs PO once Route: PO; kj2 22:05 Follow up: Response: Medication administered at discharge. kj2 22:03 Drug: Ketorolac IM 30 mg IM once Route: IM; Site: left deltoid; kj2 22:06 Follow up: Response: Medication administered at discharge. kj2 Disposition Summary: 07/18/24 21:48 Discharge Ordered Notes: Location: Home rt Problem: chronic rt Symptoms: have improved rt Condition: Stable rt Diagnosis - Low back pain rt Followup: rt - With: Private Physician - When: 2 - 3 days - Reason: Discharge Instructions: - Discharge Summary Sheet rt - Chronic Back Pain rt Forms: - Medication Reconciliation Form rt - Antibiotic Education rt - Prescription Opioid Use rt - Patient Portal Instructions rt - Leadership Thank You Letter rt Prescriptions: - Cyclobenzaprine 10 mg Oral Tablet - take 1 tablet ORAL route every 8 hours As needed; 30 tablet; Refills: 0, rt Product Selection Permitted - Medrol (Aris) 4 mg Oral Tablets, Dose Pack - take 1 tablet ORAL route as directed - follow package instructions; 1 packet; rt Refills: 0, Product Selection Permitted Signatures: Venancio Tijerina MD MD rt Luisa Santiago, RN RN cm10 Violette Hernandez, RN RN kj2
[2024-07-18] MEDS ORDERED: KETOROLAC 30 MG/ML INJ ONE (21:56)
[2024-07-18] MEDS ORDERED: CYCLOBENZAPRINE 10 MG TAB ONE (21:56)
[2024-07-18] MEDS ORDERED: HYDROCODONE/APAP 5/325 MG TAB ONE (21:57)
[2024-07-18 22:28] VITALS: BP 130/78; TEMP 98.1; O2SAT 100
== END 2024-07-18 22:14 | disposition home or self-care (01) ==
LOC: ER 21:02
DX: M54.50 Low back pain, unspecified (principal); G89.29 Other chronic pain; F17.210 Nicotine dependence, cigarettes, uncomplicated
CPT/HCPCS: 96372; 99284

== ENCOUNTER 2024-10-14 22:30 | Emergency (ER) | payer OTHER ==
[2024-10-14] MEDS ORDERED: ONDANSETRON 4 MG/2 ML VIAL ONE (22:37)
[2024-10-14] MEDS ORDERED: MORPHINE 4 MG/ML SYR ONE (22:37)
[2024-10-14 23:39] LABS: Absolute Lymphocytes (CBC) 1.6 K/uL (0.7-4.9); Hematocrit 38.7 % (36.0-45.0); Hemoglobin 12.9 g/dL (12.0-15.0); MCH 30.8 pg (27.0-35.0); MCHC 33.3 g/dL (32.0-36.0); MCV 92.6 fL (80-100); MPV 7.7 fL (7.6-11.3); Nucleated RBC Absolute Count 0.0 (0-0); Nucleated Red Blood Cells % 0.0 % (0-0); RBC Red Blood Cell Count 4.18 M/uL (3.86-4.86); White Blood Count 7.40 thou/uL (4.3-10.9)
[2024-10-14 23:59] LABS: Anion Gap 7.7 mEq/L (5.0-15.0); BUN Blood Urea Nitrogen 12.0 mg/dL (7-18); Glucose Level 101.0 mg/dL (74-106); Potassium 3.7 mEq/L (3.5-5.1); Troponin High Sensitivity 5.2 pg/mL (<58.9)
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
--- NOTE | 2024-10-15 02:39 | ER ---
Nurse's Notes [facility] Name: Vicky Walker Age: 64 yrs Sex: Female : 1960 Arrival Date: 10/14/2024 Time: 22:30 Bed 26 Private MD: Diagnosis: Cervical disc disorder with radiculopathy, unspecified cervical region;Pain in left upper arm Presentation: 10/14 20:32 Chief complaint: EMS states: patient c/o left rib pain that radiates to her left arm tb4 and neck x1 day. Coronavirus screen: At this time, the client does not indicate any symptoms associated with coronavirus-19. Ebola Screen: No symptoms or risks identified at this time. Initial Sepsis Screen: Does the patient meet any 2 criteria? No. Patient's initial sepsis screen is negative. Does the patient have a suspected source of infection? No. Patient's initial sepsis screen is negative. Risk Assessment: Do you want to hurt yourself or someone else? Patient reports no desire to harm self or others. Onset of symptoms was October 13, 2024. 20:32 Method Of Arrival: EMS: [facility] tb4 20:32 Acuity: PIYUSH 3 tb4 10/15 00:41 Care prior to arrival: None. Activity prior to arrival: None. tb4 Triage Assessment: 10/14 20:59 General: Appears uncomfortable, Behavior is calm, cooperative. Pain: Complains of pain tb4 in left lateral posterior chest Pain radiates to anterior aspect of left shoulder, left bicep and left antecubital area Pain currently is 10 out of 10 on a pain scale. Quality of pain is described as pressure, Pain began suddenly, Is continuous, Alleviated by nothing. Aggravated by increased activity, repositioning. EENT: No signs and/or symptoms were reported regarding the EENT system. Neuro: Level of Consciousness is awake, alert, obeys commands, Oriented to person, place, time, situation, Moves all extremities. Full function Gait is unsteady, Speech is normal, Facial symmetry appears normal. Respiratory: No deficits noted. Airway is patent Trachea midline Respiratory effort is even, unlabored, Respiratory pattern is regular, symmetrical. Historical: - Allergies: 10/15 00:41 PENICILLINS; tb4 - Home Meds: 00:41 gabapentin Oral [Active]; Xanax 1 mg Oral tab 1 tab 3 times per day [Active]; tb4 omeprazole 20 mg Oral cpDR 1 cap once daily [Active]; lisinopril 10 mg Oral tab [Active]; Flonase 50 mcg/actuation Nasal spsn 1 spray 2 times per day [Active]; Symbicort inhalation [Active]; Albuterol Inhl [Active]; - PMHx: 00:41 Anxiety; Chronic pain; GERD; Hypertension; psoriasis; tb4 - PSHx: 00:41 Cholecystectomy; hysterectomy; R knee replacement; tb4 - Immunization history:: Adult Immunizations up to date. - Infectious Disease History:: Denies. - Family history:: not pertinent. - Social history:: Smoking status: Patient reports the use of cigarette tobacco products, denies chronic smoking, but will smoke occasionally. - Hospitalizations: : No recent hospitalization is reported. Screenin/14 22:00 [facility] ED Fall Risk Assessment (Adult) History of falling in the last 3 months, tb4 including since admission No falls in past 3 months (0 pts) Confusion or Disorientation No (0 pts) Intoxicated or Sedated No (0 pts) Impaired Gait Yes (1 pt) Mobility Assist Device Used Yes (1 pt) Altered Elimination No (0 pt) Score/Fall Risk Level 0 - 2 = Low Risk Oriented to surroundings, Maintained a safe environment, Educated pt \T\ family on fall prevention, incl call for assistance when getting out of bed. Abuse screen: Denies threats or abuse. Denies injuries from another. Nutritional screening: No deficits noted. Tuberculosis screening: No symptoms or risk factors identified. Assessment: 22:00 Reassessment: Patient is alert, oriented x 3, equal unlabored respirations, skin tb4 warm/dry/pink. General: Appears uncomfortable, Behavior is calm, cooperative. Pain: Complains of pain in left lateral posterior chest Pain radiates to anterior aspect of left shoulder, left bicep and left antecubital area Pain currently is 8 out of 10 on a pain scale. Quality of pain is described as pressure, Pain began suddenly, Is continuous, Alleviated by nothing. Neuro: Level of Consciousness is awake, alert, obeys commands, Oriented to person, place, time, situation, Moves all extremities. Full function Gait is steady, Speech is normal, Facial symmetry appears normal. Cardiovascular: Reports since left rib pain radiating to left arm Capillary refill < 3 seconds is brisk in bilateral Patient's skin is warm and dry. Rhythm is regular. Respiratory: Airway is patent Trachea midline Respiratory effort is even, unlabored, Respiratory pattern is regular, symmetrical. GI: No signs and/or symptoms were reported involving the gastrointestinal system. : No signs and/or symptoms were reported regarding the genitourinary system. EENT: No signs and/or symptoms were reported regarding the EENT system. Derm: No signs and/or symptoms reported regarding the dermatologic system. Skin is intact, is healthy with good turgor, Skin is moist, Skin is normal, Skin temperature is warm. Musculoskeletal: Circulation, motion, and sensation intact. Range of motion: intact in all extremities, limited in right knee and right ankle. Vital Signs: 20:32 BP 131 / 83; Pulse 80; Resp 16; Temp 97.9(O); Pulse Ox 95% on R/A; Weight 72.12 kg; tb4 Height 5 ft. 2 in. ; Pain 10/10; 20:59 BP 132 / 76; Pulse 80; Resp 20; Pulse Ox 95% on R/A; Pain 10/10; tb4 22:00 BP 129 / 77; Pulse 84; Resp 18; Pulse Ox 100% on R/A; Pain 5/10; tb4 23:00 BP 122 / 79; Pulse 74; Resp 16; Pulse Ox 97% on R/A; tb4 08 00:59 BP 106 / 61; Pulse 77; Resp 18; Pulse Ox 99% on R/A; tb4 02:05 BP 112 / 77; Pulse 73; Resp 18; Pulse Ox 96% on R/A; tb4 10/14 20:32 Body Mass Index 29.08 (72.12 kg, 157.48 cm) tb4 10/14 20:32 Pain Scale: Adult tb4 20:59 Pain Scale: Adult tb4 22:00 Pain Scale: Adult tb4 ED Course: 10/14 22:00 No provider procedures requiring assistance completed. Initial lab(s) drawn, by ED tb4 staff, sent to lab. Urine collected: clean catch specimen, clear, EKG done, by ED staff, X-ray(s) taken. CT Scan. 22:00 Patient has correct armband on for positive identification. Bed in low position. Call tb4 light in reach. Side rails up X 1. Side rails up X2. Client placed on continuous cardiac and pulse oximetry monitoring. NIBP monitoring applied. front desk monitor on. Pulse ox on. Door closed. Lights dimmed. Warm blanket given. 22:36 Patient arrived in ED. jj6 22:36 Dave Palafox MD is Attending Physician. rn 22:53 XRAY Shoulder LEFT 2 view In Process Unspecified. EDMS 23:58 Inserted saline lock: 20 gauge in right forearm, using aseptic technique. Blood tb4 collected. Flushed with 10 mL NS. 10/15 00:26 CT Chest W/ Con In Process Unspecified. EDMS 00:26 CT C Spine In Process Unspecified. EDMS 00:41 Triage completed. tb4 03:08 IV discontinued, intact, bleeding controlled, No redness/swelling at site. Pressure tb4 dressing applied. 03:08 Provided Education on: Take medication as prescribed. tb4 03:08 Arm band placed on right wrist. tb4 Administered Medications: 10/14 23:54 Drug: morphine IVP or IV 4 mg IVP once over 4 mins Route: IVP; Infused Over: 4 mins; tb4 Site: right forearm; 10/15 03:05 Follow up: Response: No adverse reaction; Pain is decreased; RASS: Alert and Calm (0) tb4 10/14 23:54 Drug: Ondansetron IVP 4 mg IVP once; over 2 minutes Route: IVP; Site: right forearm; tb4 10/15 03:05 Follow up: Response: No adverse reaction; Pain is decreased; RASS: Alert and Calm (0) tb4 02:49 Drug: morphine IVP or IV 4 mg IVP once over 4 mins Route: IVP; Infused Over: 4 mins; tb4 Site: right forearm; 03:05 Follow up: Response: No adverse reaction; Pain is decreased; RASS: Alert and Calm (0) tb4 02:49 Drug: Decadron - Dexamethasone IVP 10 mg IVP once Route: IVP; Site: right forearm; tb4 03:05 Follow up: Response: No adverse reaction tb4 Medication: 10/14 22:00 VIS not applicable for this client. tb4 Outcome: 10/15 02:39 Discharge ordered by . rn 03:08 Discharged to home ambulatory, tb4 03:08 Condition: stable 03:08 Discharge instructions given to patient, Instructed on discharge instructions, follow up and referral plans. Demonstrated understanding of instructions, follow-up care, medications, Prescriptions given X 2, 03:09 Patient left the ED. tb4 Signatures: Dispatcher [employer] EDDave Reyes MD MD rn Jeffries, Jennifer jj6 Brown, Terri RN RN tb4
[2024-10-15] MEDS ORDERED: MORPHINE 4 MG/ML SYR ONE (02:41)
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
--- NOTE | 2024-10-15 06:04 | RAD REPORT ---
EXAM DESCRIPTION: CT CHEST WITH IV CONTRAST 10/15/2024 2:02 AM CDT CLINICAL HISTORY: 64 years, Female, Left sided chest pain, axillary pain. COMPARISON: CT Chest 07/25/2021. FINDINGS: Multiple transaxial tomograms of the chest were obtained from the lung apices through the adrenal gla nds after the administration of IV contrast. Multiplanar reformats in the sagittal and coronal plane were generated and reviewed. An individualized dose optimization technique, Automated Exposure Control, was utilized for the perfo rmed procedure. Lower neck: Visualized thyroid gland and soft tissues are normal. No adenopathy. Lungs: The lung parenchyma demonstrate the presence of several calcified granulomas within the right and left lung. Minimal haziness throughout the lung parenchyma suggest the possibility of air trapping/atelectasis. No evidence of airspace or interstitial process. No significant pulmonary nodul es and/or masses identified. No focal areas of consolidation. Airways: The trachea mainstem bronchus demonstrate to be unremarkable. Pleural: There are no pleural effusion. No evidence for pneumothorax. Hemidiaphragms are normally pos itioned. Mediastinum and lymph nodes: No significant mediastinal and/or hilar lymphadenopathy. The axillary re gions demonstrate to be clear. Heart: Normal size. No pericardial thickening or effusion. Coronary: Moderate coronary calcification. Aorta: There is mild intimal aortic arch calcification Pulmonary arteries: The central pulmonary arteries demonstrate to be within normal limits. No evidenc e for significant central filling defect to suggest pulmonary embolus. Osseous structures and chest wall: The thoracic spine demonstrate to be slightly demineralized. No ev idence for compression deformities and/or significant skeletal lesions. Mild degenerative changes bilateral glenohumeral joints Upper abdomen: Grossly the visualized portions of the upper abdomen demonstrate fatty infiltration of the liver. Probable status post cholecystectomy incompletely visualized. IMPRESSION: Minimal haziness throughout the lung parenchyma suggest the possibility of air trapping/atelectasis. No evidence of significant central pulmonary embolus. Moderate coronary artery calcification. Fatty infiltration of the liver. Probable status post cholecystectomy incompletely visualized. Electronically signed by: Tod Adam MD 10/15/2024 02:31 AM CDT Due to temporary technical issues with the PACS/[employer] reporting system, reports are being nury d by the in-house radiologist without review as a courtesy to ensure prompt reporting the interpreting radiologist is fully responsible for the content of the report. Transcribed Date/Time: 10/15/2024 6:03 AM
--- NOTE | 2024-10-15 06:06 | RAD REPORT ---
XR SHOULDER 2 OR MORE VIEWS LEFT INDICATION: Pain COMPARISON: None TECHNIQUE: 3 views of the left shoulder FINDINGS: BONES: No acute fracture or malalignment. No suspicious sclerotic or lytic lesion. Mild arthritic c hanges at left shoulder. SOFT TISSUE: Unremarkable. OTHER: Visualized left lung is clear. IMPRESSION: No acute bony abnormality. Electronically signed by: Mireya Drummond MD 10/15/2024 12:20 AM CDT Due to temporary technical issues with the PACS/[employer] reporting system, reports are being nury d by the in-house radiologist without review as a courtesy to ensure prompt reporting the interpreting radiologist is fully responsible for the content of the report. Transcribed Date/Time: 10/15/2024 6:05 AM
[2024-10-15 08:11] VITALS: BP 112/77; O2SAT 96
== END 2024-10-15 03:09 | disposition home or self-care (01) ==
LOC: ER 22:30
DX: M50.10 Cervical disc disorder with radiculopathy, unspecified cervical region (principal); M79.622 Pain in left upper arm; F17.210 Nicotine dependence, cigarettes, uncomplicated
CPT/HCPCS: 93005; 85025; 80048; 36415; 84484; 72125; 71260; 73030; 96375; 96374; 99285; Q9967; J1100; J2405

== ENCOUNTER 2024-11-15 23:15 | Emergency (ER) | payer OTHER ==
--- NOTE | 2024-11-16 00:03 | ER ---
Nurse's Notes [facility] Name: Vicky Walker Age: 64 yrs Sex: Female : 1960 Arrival Date: 11/15/2024 Time: 23:15 Bed 14 Private MD: Diagnosis: Generalized anxiety disorder;Idiopathic peripheral autonomic neuropathy Presentation: 11/15 23:27 Chief complaint: Patient states: PT STATES SHE IS HAVING PAIN TO BILATERAL HANDS AND br2 FEET FOR THE LAST 3 WEEKS-BURNING/STINGING. Coronavirus screen: Client denies travel out of the [place] in the last 14 days. Ebola Screen: Patient denies exposure to infectious person. Initial Sepsis Screen: Does the patient meet any 2 criteria? No. Patient's initial sepsis screen is negative. Does the patient have a suspected source of infection? No. Patient's initial sepsis screen is negative. Risk Assessment: Do you want to hurt yourself or someone else? Patient reports no desire to harm self or others. Onset of symptoms was November 25, 2024. 23:27 Method Of Arrival: Ambulatory br2 23:27 Acuity: PIYUSH 3 br2 Triage Assessment: 23:30 General: Appears uncomfortable, Behavior is crying. Pain: Complains of pain in right br2 hand, left hand, right foot and left foot Pain currently is 10 out of 10 on a pain scale. Historical: - Allergies: 23:29 PENICILLINS; br2 - PMHx: 23:29 Anxiety; Chronic pain; GERD; Hypertension; psoriasis; NEUROPATHY (psoriasis); br2 - Immunization history:: Adult Immunizations up to date. - Infectious Disease History:: Denies. - Social history:: Smoking status: Patient reports the use of cigarette tobacco products, smokes one-half pack cigarettes per day. Screenin:30 [facility] ED Fall Risk Assessment (Adult) History of falling in the last 3 months, zm including since admission No falls in past 3 months (0 pts) Confusion or Disorientation No (0 pts) Intoxicated or Sedated No (0 pts) Impaired Gait No (0 pts) Mobility Assist Device Used No (0 pt) Altered Elimination No (0 pt) Score/Fall Risk Level 0 - 2 = Low Risk Oriented to surroundings, Maintained a safe environment, Educated pt \T\ family on fall prevention, incl call for assistance when getting out of bed, Assessed \T\ reinforced patient's understanding of fall precautions, Hourly rounding (assess needs \T\ fall precautionary measures) done, Used ambulatory aids as needed (educated on \T\ assisted with), Used gait belt as appropriate. 23:30 Abuse screen: Denies threats or abuse. Denies injuries from another. Nutritional zm screening: No deficits noted. Tuberculosis screening: No symptoms or risk factors identified. Assessment: 23:20 General: Appears in no apparent distress. uncomfortable, Behavior is calm, cooperative. zm Pain: Complains of pain in right hand, left hand, right foot and left foot Pain currently is 10 out of 10 on a pain scale. 23:20 Neuro: No deficits noted. Level of Consciousness is awake, alert, obeys commands, zm Oriented to person, place, time, situation. Cardiovascular: No deficits noted. Capillary refill < 3 seconds in bilateral fingers Patient's skin is warm and dry. Respiratory: No deficits noted. Airway is patent Respiratory effort is even, unlabored, Respiratory pattern is regular, symmetrical. GI: No deficits noted. No signs and/or symptoms were reported involving the gastrointestinal system. Abdomen is flat, non-distended. : No deficits noted. No signs and/or symptoms were reported regarding the genitourinary system. EENT: No deficits noted. No signs and/or symptoms were reported regarding the EENT system. Derm: No deficits noted. No signs and/or symptoms reported regarding the dermatologic system. Skin is intact, Skin is pink, warm \T\ dry. Musculoskeletal: Circulation, motion, and sensation intact. Capillary refill < 3 seconds, in bilateral fingers. Reports pain in right hand, left hand, right foot and left foot. 11/16 00:16 Reassessment: Patient appears in no apparent distress at this time. Patient and/or zm family updated on plan of care and expected duration. Pain level reassessed. Patient is alert, oriented x 3, equal unlabored respirations, skin warm/dry/pink. Patient states feeling better. Patient states symptoms have improved. Vital Signs: 11/15 23:27 BP 109 / 59; Pulse 76; Resp 18; Temp 98.9; Pulse Ox 98% ; Weight 72.57 kg; Height 5 ft. br2 2 in. ; 11/16 00:21 BP 110 / 89; Pulse 74; Resp 18; Temp 98.6; Pulse Ox 100% on R/A; Pain 0/10; zm 11/15 23:27 Body Mass Index 29.26 (72.57 kg, 157.48 cm) br2 11/16 00:21 Pain Scale: Adult zm Hill Coma Score: 11/15 23:20 Eye Response: spontaneous(4). Motor Response: obeys commands(6). Verbal Response: zm oriented(5). Total: 15. 11/16 00:21 Eye Response: spontaneous(4). Motor Response: obeys commands(6). Verbal Response: zm oriented(5). Total: 15. ED Course: 11/15 23:17 Patient arrived in ED. gm2 23:22 Nichole Santiago, RN is Primary Nurse. zm 23:29 Triage completed. br2 23:30 Patient has correct armband on for positive identification. Bed in low position. Call zm light in reach. Side rails up X 1. Adult w/ patient. Provided Education on: call light use. Client placed on continuous cardiac and pulse oximetry monitoring. NIBP monitoring applied. Pulse ox on. NIBP on. Door closed. Noise minimized. Lights dimmed. Warm blanket given. Verbal reassurance given. 23:42 [facility] dr5 23:42 Alpesh Gong MD is Attending Physician. dr5 11/16 00:21 No provider procedures requiring assistance completed. Patient did not have IV access zm during this emergency room visit. 00:24 Arm band placed on right wrist. zm Administered Medications: 00:13 Drug: Ketorolac IM 30 mg IM once Route: IM; Site: left deltoid; zm 00:24 Follow up: Response: No adverse reaction zm 00:13 Drug: HYDROcodone-acetaminophen PO 5 mg-325 mg 2 tabs PO once Route: PO; zm 00:24 Follow up: Response: No adverse reaction zm 00:13 Drug: Ondansetron Oral Disintegrating Tablet Oral Disintegrating Tablet 4 mg PO once zm Route: PO; 00:25 Follow up: Response: No adverse reaction zm 00:13 Drug: LORazepam PO 1 mg PO once Route: PO; zm 00:25 Follow up: Response: No adverse reaction zm Medication: 00:16 VIS not applicable for this client. zm Outcome: 00:03 Discharge ordered by . dr5 00:21 Discharged to home ambulatory, with significant other, zm 00:21 Condition: stable 00:21 Discharge instructions given to patient, significant other, Instructed on discharge instructions, follow up and referral plans. no drinking with medication, no driving heavy equipment, medication usage, safety practices, Demonstrated understanding of instructions, follow-up care, medications, Prescriptions given X 1, 00:25 Patient left the ED. Signatures: Nichole Santiago RN Anne-Marie Zhu gm2 Marlena Tucker RN RN br2 Mike Wright, TOPPIECE CUTTER-C TOPPIECE CUTTER-Cdr5 Corrections: (The following items were deleted from the chart) 11/15 23:29 23:29 PSHx: Cholecystectomy; br2 br2 23: 23:29 PSHx: hysterectomy; br2 br2 23: 23:29 PSHx: R knee replacement; br2 br2
[2024-11-16] MEDS ORDERED: ONDANSETRON 4 MG (ODT) TAB ONE (00:04)
[2024-11-16] MEDS ORDERED: HYDROCODONE/APAP 5/325 MG TAB ONE ×2 (00:04→00:05)
[2024-11-16] MEDS ORDERED: KETOROLAC 30 MG/ML INJ ONE (00:04)
--- NOTE | 2024-11-16 00:04 | EDPHYS ---
Physician Documentation [facility] Name: Vicky Walker Age: 64 yrs Sex: Female : 1960 Arrival Date: 11/15/2024 Time: 23:15 Bed 14 Private MD: ED Physician Alpesh Gong HPI: 11/16 02:24 This 64 yrs old Female presents to ER via Ambulatory with complaints of Pain dr5 All Over, Hand Pain. 02:24 Onset: The symptoms/episode began/occurred 3 week(s) ago. Patient is a 64-year-old dr5 female with a history of anxiety, chronic pain, GERD, hypertension, psoriasis, neuropathy coming in with 3 weeks of burning and pain to hands as well as anxiety. Patient reports that she is under a lot of stress at home and needs medication for anxiety because when she has not helped. Patient denies chest pain, shortness of breath, nausea, vomiting or diarrhea.. Historical: - Allergies: 11/15 23:29 PENICILLINS; br2 - PMHx: 23:29 Anxiety; Chronic pain; GERD; Hypertension; psoriasis; NEUROPATHY (psoriasis); br2 - Immunization history:: Adult Immunizations up to date. - Infectious Disease History:: Denies. - Social history:: Smoking status: Patient reports the use of cigarette tobacco products, smokes one-half pack cigarettes per day. ROS: 11/16 02:24 Constitutional: as per hpi dr5 Exam: 02:24 Constitutional: This is a well developed, well nourished patient who is awake, alert, dr5 and in no acute distress. Head/Face: Normocephalic, atraumatic. Eyes: Pupils equal round and reactive to light, extra-ocular motions intact. Lids and lashes normal. Conjunctiva and sclera are non-icteric and not injected. Cornea within normal limits. Periorbital areas with no swelling, redness, or edema. Neck: Trachea midline, no thyromegaly or masses palpated, and no cervical lymphadenopathy. Supple, full range of motion without nuchal rigidity, or vertebral point tenderness. No Meningismus. Chest/axilla: Normal chest wall appearance and motion. Nontender with no deformity. No lesions are appreciated. Cardiovascular: Regular rate and rhythm with a normal S1 and S2. Normal PMI, no JVD. No pulse deficits. Respiratory: Lungs have equal breath sounds bilaterally, clear to auscultation. No rales, rhonchi or wheezes noted. No increased work of breathing, no retractions or nasal flaring. Back: No spinal tenderness. No costovertebral tenderness. Full range of motion. Skin: Warm, dry with normal turgor. Normal color with no rashes, no lesions, and no evidence of cellulitis. MS/ Extremity: Pulses equal, no cyanosis. Neurovascular intact. Full, normal range of motion. Neuro: Awake and alert, GCS 15, oriented to person, place, time, and situation. Cranial nerves II-XII grossly intact. Motor strength 5/5 in all extremities. Sensory grossly intact. Cerebellar exam normal. Normal gait. Vital Signs: 11/15 23:27 BP 109 / 59; Pulse 76; Resp 18; Temp 98.9; Pulse Ox 98% ; Weight 72.57 kg; Height 5 ft. br2 2 in. ; 11/16 00:21 BP 110 / 89; Pulse 74; Resp 18; Temp 98.6; Pulse Ox 100% on R/A; Pain 0/10; zm 11/15 23:27 Body Mass Index 29.26 (72.57 kg, 157.48 cm) br2 11/16 00:21 Pain Scale: Adult zm Teresa Coma Score: 11/15 23:20 Eye Response: spontaneous(4). Motor Response: obeys commands(6). Verbal Response: zm oriented(5). Total: 15. 11/16 00:21 Eye Response: spontaneous(4). Motor Response: obeys commands(6). Verbal Response: zm oriented(5). Total: 15. MDM: 11/15 23:42 Medical Screening Exam initiated dr5 11/16 02:24 Differential diagnosis: viral Infection, Neuropathy, anxiety, chronic pain. Data dr5 reviewed: vital signs, nurses notes. Consideration of Admission/Observation Escalation of care including admission/observation considered. Discussion considered with patient's heart rate was elevated due to anxiety.. I considered the following discharge prescriptions or medication management in the emergency department I discussed and recommended Over The Counter medications, Medications were administered in the Emergency Department. See MAR. Test considered but Not performed: X-ray: X-ray considered if patient had chest pain. Historians other than the Patient: Spouse/Significant Other: at bedside. Care significantly affected by the following chronic conditions: Anxiety, chronic pain, GERD, hypertension, cirrhosis, neuropathy. Care significantly affected by the following Social Determinants of Health: Poor access to healthcare and/or lack of insurance, Poor access to transportation, Problems related to employment. Counseling: I had a detailed discussion with the patient and/or guardian regarding the historical points, exam findings, and any diagnostic results supporting the discharge/admit diagnosis, the presence of at least one elevated blood pressure reading (>120/80) during this emergency department visit, the need for outpatient follow up, for definitive care, a family practitioner. Medication response: Toradol, [place], lorazepam, Zofran. Response to treatment: the patient's symptoms have resolved after treatment, the patient's condition has returned to base line, the patient is now symptom free. Special discussion: I discussed with the patient/guardian in detail that at this point there is no indication for admission to the hospital. It is understood, however, that if the symptoms persist or worsen the patient needs to return immediately for re-evaluation. Based on the history and exam findings, there is no indication for further emergent testing or inpatient evaluation. I discussed with the patient/guardian the need to see the primary care provider for further evaluation of the symptoms. ED course: Will have patient follow-up primary care doctor as well as pain management for further management. All questions answered. Strict ER precautions given. Patient reports he is doing much better.. Administered Medications: 00:13 Drug: Ketorolac IM 30 mg IM once Route: IM; Site: left deltoid; zm 00:24 Follow up: Response: No adverse reaction zm 00:13 Drug: HYDROcodone-acetaminophen PO 5 mg-325 mg 2 tabs PO once Route: PO; zm 00:24 Follow up: Response: No adverse reaction zm 00:13 Drug: Ondansetron Oral Disintegrating Tablet Oral Disintegrating Tablet 4 mg PO once zm Route: PO; 00:25 Follow up: Response: No adverse reaction zm 00:13 Drug: LORazepam PO 1 mg PO once Route: PO; zm 00:25 Follow up: Response: No adverse reaction Disposition: 20:56 Co-signature as Attending Physician, Alpesh Gong MD I agree with the assessment sp4 and plan of care. I reviewed the patient's care provided by the Advanced Practice Provider and agree with the diagnosis and treatment plan. Disposition Summary: 11/16/24 00:03 Discharge Ordered Notes: Location: Home dr5 Condition: Stable dr5 Diagnosis - Generalized anxiety disorder dr5 - Idiopathic peripheral autonomic neuropathy dr5 Followup: dr5 - With: Emergency Department - When: As needed - Reason: Worsening of condition Followup: dr5 - With: Private Physician - When: 1 - 2 days - Reason: Recheck today's complaints, Continuance of care, Re-evaluation by your physician Discharge Instructions: - Discharge Summary Sheet dr5 - Panic Attack dr5 Forms: - Medication Reconciliation Form dr5 - Patient Portal Instructions dr5 - Leadership Thank You Letter dr5 Prescriptions: - Hydroxyzine HCl 25 mg Oral Tablet - take 1 tablet ORAL route every 6 hours As needed; 30 tablet; Refills: 0, dr5 Product Selection Permitted Signatures: Nichole Santiago RN RN zm Alpesh Gong MD MD sp4 Marlena Tucker RN RN br2 Mike Wright, EQUIPMENT SALES SPECIALIST-C EQUIPMENT SALES SPECIALIST-Cdr5 Corrections: (The following items were deleted from the chart) 11/15 23:29 23:29 PSHx: Cholecystectomy; br2 br2 23:29 23:29 PSHx: hysterectomy; br2 br2 23:29 23:29 PSHx: R knee replacement; br2 br2
[2024-11-16] MEDS ORDERED: LORAZEPAM 1 MG TABLET ONE (00:05)
[2024-11-16 00:51] VITALS: BP 110/89; TEMP 98.6; O2SAT 100
== END 2024-11-16 00:25 | disposition home or self-care (01) ==
LOC: ER 23:15
DX: G60.9 Hereditary and idiopathic neuropathy, unspecified (principal); F41.1 Generalized anxiety disorder; I10 Essential (primary) hypertension; F17.210 Nicotine dependence, cigarettes, uncomplicated; Z88.0 Allergy status to penicillin
CPT/HCPCS: 96372; 99284; Q0162

== ENCOUNTER 2024-12-19 17:58 | Emergency (ER) | payer OTHER ==
[2024-12-19] MEDS ORDERED: KETOROLAC 30 MG/ML INJ ONE (19:09)
[2024-12-19] MEDS ORDERED: HYDROCODONE/APAP 5/325 MG TAB ONE (19:09)
[2024-12-19] MEDS ORDERED: TETRACAINE HCL 0.5% 4ML OPTH ONE (19:09)
--- NOTE | 2024-12-19 19:22 | ER ---
Nurse's Notes [facility] Name: Vicky Walker Age: 64 yrs Sex: Female : 1960 Arrival Date: 12/19/2024 Time: 17:58 Bed DX3 Private MD: Diagnosis: Unspecified acute conjunctivitis, right eye Presentation: 12/19 18:04 Chief complaint: Patient states: right eye pain that started 2 days ago, worse when me1 looking down or bending over. "6/10" Pressure. Coronavirus screen: Vaccine status: Patient reports being unvaccinated. Ebola Screen: No symptoms or risks identified at this time. Mechanism of Injury: No Mechanism of Injury. The patient denies any loss of vision. Initial Sepsis Screen: Does the patient meet any 2 criteria? No. Patient's initial sepsis screen is negative. Does the patient have a suspected source of infection? No. Patient's initial sepsis screen is negative. Risk Assessment: Do you want to hurt yourself or someone else? Patient reports no desire to harm self or others. Onset of symptoms was December 17, 2024. 18:04 Method Of Arrival: Ambulatory [facility] 18:04 Acuity: PIYUSH 4 me1 Triage Assessment: 19:24 General: Appears uncomfortable, well groomed, well developed, well nourished, Behavior me1 is calm, cooperative, appropriate for age. Pain: Complains of pain in right eye Pain does not radiate. Pain currently is 8 out of 10 on a pain scale. Quality of pain is described as pressure, Pain began 2-3 days ago. Is continuous. EENT: Reports pain in right eye. Neuro: Level of Consciousness is awake, alert, obeys commands, Oriented to person, place, time, situation, Appropriate for age. Cardiovascular: Patient's skin is warm and dry. Respiratory: Airway is patent Respiratory effort is even, unlabored, Respiratory pattern is regular, symmetrical. GI: No signs and/or symptoms were reported involving the gastrointestinal system. : No signs and/or symptoms were reported regarding the genitourinary system. Derm: Skin is intact, is healthy with good turgor, Skin is normal. Musculoskeletal: Circulation, motion, and sensation intact. Range of motion: intact in all extremities. Historical: - Allergies: 18:05 PENICILLINS; me1 - PMHx: 18:05 Anxiety; Chronic pain; GERD; Hypertension (Unknown); neuropathy (Unknown); psoriasis; me1 - PSHx: 18:05 Total abdominal hysterectomy; Cholecystectomy; me1 - Immunization history:: Adult Immunizations up to date. - Infectious Disease History:: Denies. - Social history:: Smoking status: Patient reports the use of cigarette tobacco products, smokes one-half pack cigarettes per day. Screenin:25 [facility] ED Fall Risk Assessment (Adult) History of falling in the last 3 months, me1 including since admission No falls in past 3 months (0 pts) Confusion or Disorientation No (0 pts) Intoxicated or Sedated No (0 pts) Impaired Gait No (0 pts) Mobility Assist Device Used No (0 pt) Altered Elimination No (0 pt) Score/Fall Risk Level 0 - 2 = Low Risk Maintained a safe environment, Provided non-skid footwear, Hourly rounding (assess needs \\T\\ fall precautionary measures) done. Abuse screen: Denies threats or abuse. Nutritional screening: No deficits noted. Tuberculosis screening: No symptoms or risk factors identified. Assessment: 19:25 General: See triage assessment. me1 19:27 EENT: Eyes are tearing on right eye Sclera/Cornea are reddened in right eye. me1 Vital Signs: 18:04 BP 127 / 65; Pulse 82; Resp 16; Temp 98.2; Pulse Ox 97% ; Weight 72.57 kg; Height 5 ft. me1 2 in. ; Pain 6/10; 18:04 Body Mass Index 29.26 (72.57 kg, 157.48 cm) me1 18:04 Pain Scale: Adult ok1 ED Course: 17:59 Patient arrived in ED. im 18:00 Mike Wright FNP-C is PHCP. dr5 18:00 Latrell Styles MD is Attending Physician. dr5 18:05 Triage completed. me1 18:05 Arm band placed on Patient placed in waiting room. me1 19:17 Maria Guadalupe Montague, TANISHA is Primary Nurse. me1 19:25 Patient has correct armband on for positive identification. Provided Education on: POC. me1 Verbalized understanding.. 19:25 No provider procedures requiring assistance completed. Patient did not have IV access me1 during this emergency room visit. Administered Medications: 19:07 CANCELLED (Inappropriate at this time): fluoresceinstrip 1 strip Ophthalmic once dr5 19:23 Drug: Tetracaine Ophthalmic Drops 0.5 % 1 drops Ophthalmic once {Note: Administered by 1 ADIS Warren.} Route: Ophthalmic; Site: right eye; 19:28 Follow up: Response: No adverse reaction; Pain is decreased me1 19:23 Drug: HYDROcodone-acetaminophen PO 5 mg-325 mg 2 tabs PO once Route: PO; me1 19:28 Follow up: Response: No adverse reaction; Pain is decreased me1 19:23 Drug: Ketorolac IM 30 mg IM once Route: IM; Site: left deltoid; me1 19:28 Follow up: Response: No adverse reaction; Pain is decreased me1 Medication: 19:25 VIS not applicable for this client. me1 Outcome: 19:22 Discharge ordered by MD. dr5 19:27 Discharged to home ambulatory, me1 19:27 Condition: stable 19:27 Discharge instructions given to patient, Instructed on discharge instructions, follow up and referral plans. medication usage, Demonstrated understanding of instructions, follow-up care, medications, Prescriptions given X 1, 19:27 Patient left the ED. me1 Signatures: Malathi Mclean Michelle, RN RN me1 Mike Wright, ADIS-C CLAM DREDGER-Cdr5
--- NOTE | 2024-12-19 19:22 | EDPHYS ---
Physician Documentation [facility] Name: Vicky Walker Age: 64 yrs Sex: Female : 1960 Arrival Date: 12/19/2024 Time: 17:58 Bed DX3 Private MD: ED Physician Latrell Styles HPI: 12/19 19:10 This 64 yrs old Female presents to ER via Ambulatory with complaints of Eye dr5 Pain - right. 19:10 Onset: The symptoms/episode began/occurred 2 day(s) ago. Patient is a 64 female with dr5 history of anxiety, chronic pain, GERD, hypertension, neuropathy coming in with 2 days of right eye pain. Patient reports slight matting of the eyelids when she wakes up in pain and upper eyelid. Patient also complains of pain with blinking. Patient requesting anti-inflammatory injection as well as [place].. Historical: - Allergies: 18:05 PENICILLINS; me1 - PMHx: 18:05 Anxiety; Chronic pain; GERD; Hypertension (Unknown); neuropathy (Unknown); psoriasis; me1 - PSHx: 18:05 Total abdominal hysterectomy; Cholecystectomy; me1 - Immunization history:: Adult Immunizations up to date. - Infectious Disease History:: Denies. - Social history:: Smoking status: Patient reports the use of cigarette tobacco products, smokes one-half pack cigarettes per day. ROS: 19:10 Constitutional: as per hpi dr5 Exam: 19:10 Constitutional: This is a well developed, well nourished patient who is awake, alert, dr5 and in no acute distress. Head/Face: Normocephalic, atraumatic. ENT: Nares patent. No nasal discharge, no septal abnormalities noted. Tympanic membranes are normal and external auditory canals are clear. Oropharynx with no redness, swelling, or masses, exudates, or evidence of obstruction, uvula midline. Mucous membranes moist. Neck: Trachea midline, no thyromegaly or masses palpated, and no cervical lymphadenopathy. Supple, full range of motion without nuchal rigidity, or vertebral point tenderness. No Meningismus. Chest/axilla: Normal chest wall appearance and motion. Nontender with no deformity. No lesions are appreciated. Cardiovascular: Regular rate and rhythm with a normal S1 and S2. Normal PMI, no JVD. No pulse deficits. Respiratory: Lungs have equal breath sounds bilaterally, clear to auscultation. No rales, rhonchi or wheezes noted. No increased work of breathing, no retractions or nasal flaring. Back: No spinal tenderness. No costovertebral tenderness. Full range of motion. Skin: Warm, dry with normal turgor. Normal color with no rashes, no lesions, and no evidence of cellulitis. MS/ Extremity: Pulses equal, no cyanosis. Neurovascular intact. Full, normal range of motion. Neuro: Awake and alert, GCS 15, oriented to person, place, time, and situation. Cranial nerves II-XII grossly intact. Motor strength 5/5 in all extremities. Sensory grossly intact. Cerebellar exam normal. Normal gait. 19:10 Eyes: Periorbital structures: appear normal, no acute changes, Pupils: no acute changes, equal, round, and reactive to light and accomodation, Extraocular movements: intact throughout, Conjunctiva: exudate, in the right eye, Lids and lashes: no acute changes, no evidence of trauma, Vital Signs: 18:04 BP 127 / 65; Pulse 82; Resp 16; Temp 98.2; Pulse Ox 97% ; Weight 72.57 kg; Height 5 ft. me1 2 in. ; Pain 6/10; 18:04 Body Mass Index 29.26 (72.57 kg, 157.48 cm) me1 18:04 Pain Scale: Adult me1 MDM: 18:00 Medical Screening Exam initiated dr5 19:10 Differential diagnosis: Corneal abrasion of right eye. Corneal ulcer of right eye. dr5 Foreign body in right eye. Data reviewed: vital signs, nurses notes. Consideration of Admission/Observation Escalation of care including admission/observation considered. Escalation considered patient found to have periorbital cellulitis. I considered the following discharge prescriptions or medication management in the emergency department I discussed and recommended Over The Counter medications, Medications were administered in the Emergency Department. See MAR. Care significantly affected by the following Social Determinants of Health: Poor access to healthcare and/or lack of insurance, Poor access to transportation, Problems related to employment. Counseling: I had a detailed discussion with the patient and/or guardian regarding the historical points, exam findings, and any diagnostic results supporting the discharge/admit diagnosis, the presence of at least one elevated blood pressure reading (>120/80) during this emergency department visit, the need for outpatient follow up, for definitive care, an opthalmologist, to return to the emergency department if symptoms worsen or persist or if there are any questions or concerns that arise at home. Medication response: [place], Toradol. Response to treatment: the patient's symptoms have resolved after treatment. Special discussion: I discussed with the patient/guardian in detail that at this point there is no indication for admission to the hospital. It is understood, however, that if the symptoms persist or worsen the patient needs to return immediately for re-evaluation. Based on the history and exam findings, there is no indication for further emergent testing or inpatient evaluation. I discussed with the patient/guardian the need to see the primary care provider for further evaluation of the symptoms. ED course: Will give patient ofloxacin eyedrops for conjunctivitis of right side. Recommend patient follow primary care doctor this week. All questions answered. Strict ER precautions given. Administered Medications: 19:07 CANCELLED (Inappropriate at this time): fluoresceinstrip 1 strip Ophthalmic once dr5 19:23 Drug: Tetracaine Ophthalmic Drops 0.5 % 1 drops Ophthalmic once {Note: Administered by me1 FNP. Kelvin} Route: Ophthalmic; Site: right eye; 19:28 Follow up: Response: No adverse reaction; Pain is decreased me1 19:23 Drug: HYDROcodone-acetaminophen PO 5 mg-325 mg 2 tabs PO once Route: PO; me1 19:28 Follow up: Response: No adverse reaction; Pain is decreased me1 19:23 Drug: Ketorolac IM 30 mg IM once Route: IM; Site: left deltoid; me1 19:28 Follow up: Response: No adverse reaction; Pain is decreased me1 Disposition Summary: 12/19/24 19:22 Discharge Ordered Notes: Location: Home dr5 Condition: Stable dr5 Diagnosis - Unspecified acute conjunctivitis, right eye dr5 Followup: dr5 - With: Emergency Department - When: As needed - Reason: Worsening of condition Followup: dr5 - With: Private Physician - When: 1 - 2 days - Reason: Recheck today's complaints, Continuance of care, Re-evaluation by your physician Discharge Instructions: - Discharge Summary Sheet dr5 - Bacterial Conjunctivitis, Adult dr5 Forms: - Medication Reconciliation Form dr5 - Antibiotic Education dr5 - Patient Portal Instructions dr5 - Leadership Thank You Letter dr5 Prescriptions: - Ocuflox 0.3 % Ophthalmic drops - instill 2 drops OPHTHALMIC route every 6 hours for 7 days; 15 milliliter; dr5 Refills: 0, Product Selection Permitted Signatures: Maria Guadalupe Montague RN RN me1 Mike Wright, SUBSTATION ELECTRICIAN SUPERVISOR-C SUBSTATION ELECTRICIAN SUPERVISOR-Cdr5 Corrections: (The following items were deleted from the chart) 19:07 18:01 Fluorescein Ophthalmic Strip 1 strip Ophthalmic once ordered. dr5 dr5 19:07 18:01 Fluorescein opth strip ordered. dr5 dr5
[2024-12-19 23:45] VITALS: BP 127/65; TEMP 98.2; O2SAT 97
== END 2024-12-19 19:27 | disposition home or self-care (01) ==
LOC: ER 17:58
DX: H10.31 Unspecified acute conjunctivitis, right eye (principal)
CPT/HCPCS: 96372; 99284; J1885